=== PATIENT | male | born 1950 | race Caucasian/White ===

== ENCOUNTER 2016-12-04 09:56 | Observation (INO) | payer MEDICARE, MEDICAID ==
[~2016-12-04] VITALS: Ht 172.7 cm; Wt 91.2 kg
[~2016-12-04 09:56] MED LIST: ALBU17AE3 IH; ALPR.5T PO; ALPR1TAB7 PO; AMIT25TA9 PO; AMIT50TA3 PO; AML5T PO; AMLO5TAB2 PO; AMOX-355 PO; ASP81TEC PO; ASPI-983 PO; ASPI-999 PO; AZIT-21 PO; CLCX200C PO; CRS350T PO; CYCL10TA9 PO; DULO60CA58 PO; FRSM40T PO; FURO20TA4 PO; FURO40TA4 PO; KCL20TCR PO; LEVO750T6 PO; LISI-552 PO; LISI10TA PO; LOVA10TA PO; LSNP20T PO; METF-380 PO; MORP100T20 PO; MORP100T37 PO; MORP100T6 PO; MORP100T8; MS15TCR PO; MULT1CAP27 PO; NALO25TA PO; NF-ESOM40C PO; NITR0.4T SL; OMEP20CA6 PO; OXYC30TA PO; OXYCODONE; POLY17PO23 PO; POLY255P PO; POTA10TA36 PO; PRD20T PO; PRILOSEC PO; PSYL1PAC15 PO; SENN-101 PO; SIMV20TA3 PO; TEMA15CA54 PO; TMSL.4C PO; TMZP15C PO; TRZ100T PO; ZLP10T PO; ZOLP10TA5 PO; [UNRECOGNIZED DRUG - CODE] SQ
--- OUTSIDE RECORDS SUMMARY | 2016-12-04 10:01 | XMS REPORT | Continuity of Care Document ---
Author Author [facility] Organization [facility] Address Unknown Phone Unavailable Care Team Providers Care Translation Director Name Role Phone Jonathan Beasley PCP [phone] Source Comments Some departments are not documenting in the electronic medical record. If you do not see the information that you expected, contact Release of Information in the Health Information Management department at [phone] for further assistance in locating additional records.[facility] Active Allergies and Adverse Reactions Allergen Noted Date Severity Reactions Comments Codeine 08/07/2003 High Allergy recorded in SMS: Codeine~Reactions: SWELLING~HIVES Streptokinase 08/07/2003 High Allergy recorded in SMS: Streptokinase~Reactions: SWELLING Current Medications Prescription Sig. Disp. Refills Start End Date Status Date temazepam (RESTORIL) 30 Take 30 mg by mouth at Active mg capsule bedtime as needed. traZODone (DESYREL) 100 Take 100 mg by mouth at Active mg tablet bedtime daily. aspirin EC 81 mg tablet Take 81 mg by mouth Active daily. metFORMIN-XR(+) Take 1,000 mg by mouth Active (GLUCOPHAGE XR) 500 mg twice daily. tablet amitriptyline (ELAVIL) 50 Take 50 mg by mouth at Active mg tablet bedtime daily. carisoprodol(+) (SOMA) Take 350 mg by mouth Active 350 mg tablet every 8 hours as needed. ALPRAZolam (XANAX) 0.5 mg Take 0.5-1 mg by mouth Active tablet three times daily as needed. PRN for severe anxiety Insulin Asp Prt-Insulin Inject 5 Units into Active Aspart (NOVOLOG MIX 70-30 area(s) as directed at FLEXPEN) 100 unit/mL bedtime daily. 5 units (70-30) InPn @@1700. Hold Sliding Scale for now. furosemide (LASIX) 20 mg Take 20 mg by mouth daily Active tablet as needed. As needed for Edema. morphine SR (MS CONTIN; Take 200 mg by mouth Active ORAMORPH SR) 100 mg every 12 hours tablet morphine SR (MS CONTIN; Take 100 mg by mouth Active ORAMORPH SR) 100 mg daily with lunch tablet morphine IR (MSIR) 15 mg Take 3-4 Tabs by mouth 100 Tab 0 11/23/19 Active tablet every 3 hours as needed 13 for Pain Earliest Fill Date: 11/23/12 enoxaparin (LOVENOX) 40 Inject 0.4 mL into 7 Syringe 0 11/23/19 Active mg injection syringe area(s) as directed 13 daily. Active Problems Problem Noted Date [place] (myocardial infarction) (HCC) 04/04/2014 Pacemaker 04/04/2014 Asthma 04/04/2014 S/P bilateral hip replacements 04/04/2014 S/P hardware removal 04/04/2014 S/P cervical spinal fusion 04/04/2014 Hip pain 11/25/2012 Pain in joint, pelvic region and thigh 04/05/2008 Pain in joint, lower leg 04/05/2008 Most Recent Encounters Date Type Specialty Providers Description 10/01/2016 Orders Only Orthopedic Surgery Traci Mota MD Left knee pain, unspecified chronicity (Primary Dx); Pain of left hip joint Social History Tobacco Use Types Packs/Day Years Used Date Current Every Day Smoker Cigarettes 0.5 35 Alcohol Use Drinks/Week oz/Week Comments Yes 1 Cans of 0.6 beer Last Filed Vital Signs Vital Sign Reading Time Taken Blood Pressure 147/78 11/23/2012 8:30 AM NURSING HOME DIRECTOR Pulse 63 11/23/2012 8:30 AM NURSING HOME DIRECTOR Temperature 36.8 C (98.3 F) 11/23/2012 8:30 AM NURSING HOME DIRECTOR Respiratory Rate - - Height 1.727 m (5' 8") 11/19/2012 9:57 AM NURSING HOME DIRECTOR Weight 86.183 kg (190 lb) 11/19/2012 9:57 AM NURSING HOME DIRECTOR Body Mass Index 28.9 11/19/2012 9:57 AM NURSING HOME DIRECTOR Oxygen Saturation 97% 11/23/2012 8:30 AM NURSING HOME DIRECTOR Plan of Care Date Type Specialty Providers Description 01/28/2017 Appointment Orthopedic Surgery Traci Mota MD [address] [facility] [address] [place] [address] [phone] (Fax) Health Maintenance Due Date Last Done Comments Hepatitis C Screening 1950 Physical (Comprehensive) 1959 Exam Pertussis Vaccine 1963 Tetanus Vaccine 1969 Colorectal Cancer 2002 Screening Shingles Vaccine 2012 Influenza Vaccine 06/26/2016 Results from Last 3 Months Not on file
[2016-12-04] MEDS ORDERED: NS IV 1000 ML 1,000 ML IV ONE (10:03)
--- NOTE | 2016-12-04 10:18 | ED Fall/Injury ---
General Chief Complaint: Trauma-Non Activation Stated Complaint: CHEST PAIN Nursing Triage Note: PT ARRIVED PER EMS, PT CO OF FALLING WHILE TRANSFERING FROM CHAIR TO BED LAST PM, HAS ABRAISION ON L SIDE FOREHEAD, CO OF L FEMUR PAIN, DENIES NECK PAIN, CO OF DIFFICULTY IN URINATION AT TIMES Source: patient Exam Limitations: no limitations History of Present Illness Time seen by provider: 10:02 Initial Comments Here with report of fall last night while trying to transfer from his bed to his power chair. He did hit his head on the left side. Also complains of left mid thigh pain. He does take quite a bit of morphine for chronic pain conditions. Called EMS today due to pain. He was able to stand and transfer to the cot. Does report that he's had decreased urine output over the last few days. Denies nausea or vomiting. Denies vision problems. Complains of mild headache and mild neck pain. Location Injury Occurred: HOME Occurred: yesterday Severity: mild Injuries/Pain Location: head, lower extremity Context: slipped Loss of Consciousness: no loss of consciousness Associated Symptoms (Fall): No Abdominal Pain, No Chest Pain, No Confusion, Dizziness HeadacheNo Nausea/Vomiting, Neck Pain Slurred Speech Allergies and Home Medications Allergies Coded Allergies: codeine (Verified Allergy, Mild, HIVES...TAKES OXYCODONE & MS CONTIN AT HOME, 07/29/07) streptokinase (Verified Allergy, Unknown, 07/29/07) Home Medications Alprazolam 1 Mg Tablet 1 MG PO TID PRN PRN ANXIETY (Reported) Morphine Sulfate 100 Mg Tablet.er 200 MG PO BID (Reported) Morphine Sulfate 100 Mg Tablet.er 100 MG PO NOON (Reported) Zolpidem Tartrate 10 Mg Tablet 10 MG PO HS PRN PRN SLEEP (Reported) Constitutional: see HPINo chills, dizzinessNo fever Eyes: No Symptoms Reported Ears, Nose, Mouth, Throat: no symptoms reported Respiratory: no symptoms reported Cardiovascular: no symptoms reported Gastrointestinal: no symptoms reported Genitourinary: see HPI decreased output Musculoskeletal: see HPI joint swelling muscle pain neck pain Skin: see HPI lesions (abrasion to the left forehead) Psychiatric/Neurological: See HPI All Other Systems Reviewed Negative Unless Noted: Yes Past Uynftro-Vfjxmh-Ubixbk Hx Patient Social History Alcohol Use: Rarely Uses Recreational Drug Use: Yes Type Used: Cigarettes Former Smoker/When Quit: Recent Hopitalizations: No Immunizations Up To Date Tetanus Booster (TDap): More than 5yrs PED Vaccines UTD: No Date of Pneumonia Vaccine: Oct 29, 2012 Date of Influenza Vaccine: Jul 26, 2016 Seasonal Allergies Seasonal Allergies: No Surgeries HX Surgeries: Yes Surgeries: Abdominal, Appendectomy, Cardiac, Defibrillator, Joint Replacement, Orthopedic, Pacemaker Respiratory Hx Respiratory Disorders: Yes Respiratory Disorders: COPD Cardiovascular Hx Cardiac Disorders: Yes (PACEMAKER, CARDIAC ARREST, SELF - REPORTED MT X 8) Cardiac Disorders: Chronic Edema/Swelling, Coronary Artery Disease, Heart Attack, Hypertension, Irregular Heartbeat Neurological Hx Neurological Disorders: No Reproductive System Hx Reproductive Disorders: No Sexually Transmitted Disease: No Genitourinary Hx Genitourinary Disorders: Yes (patient performs self straight catheters) Genitourinary Disorders: Neurogenic Bladder Gastrointestinal Hx Gastrointestinal Disorders: Yes Gastrointestinal Disorders: Abdominal Hernia Musculoskeletal Hx Musculoskeletal Disorders: Yes (no hip joints related to sx) Musculoskeletal Disorders: Arthritis, Chronic Back Pain, Fractures Endocrine Hx Endocrine Disorders: Yes (OBESITY) Endocrine Disorders: Diabetes, Insulin dep HEENT HX ENT Disorders: Yes HEENT Disorders: Dysphagia Loss of Vision: Denies Hearing Impairment: Hard of Hearing Cancer Hx Cancer: No Psychosocial Hx Psychiatric Problems: Yes (ALCOHOL/POLYSUBSTANCE ABUSE/OVERDOSES-INTUBATED 2012, INCARCERATIONS) Behavioral Health Disorders: Suicide Attempts, Depression Integumentary HX Skin/Integumentary Disorder: No Blood Transfusions Hx Blood Disorders: No Reviewed Nursing Assessment Reviewed/Agree w Nursing PMH: Yes Family Medical History Significant Family History: No Pertinent Family Hx Physical Exam Vital Signs Vital Sign - Last 12Hours 12/04/16 10:00 Temp 97.5 Pulse 88 Resp 18 B/P 99/60 Pulse Ox 98 O2 Delivery Room Air Capillary Refill : General Appearance: WD/WN no apparent distress HEENT: PERRL/EOMI (pinpoint bilaterally but equal) pharynx normal Neck: full range of motion supple Cardiovascular: regular rate, rhythm no murmur Respiratory: lungs clear normal breath sounds Gastrointestinal: non tender soft Back: normal inspection no CVA tenderness no vertebral tenderness Extremities: non-tender pedal edema (bilateral lower) Neurologic/Psychiatric: alert oriented x 3 Skin: normal color warm/dry Bridgman Coma Score Best Eye Response: (4) Open Spontaneously Best Verbal Response: (5) Oriented Best Motor Response: (6) Obeys Commands Progress/Results/Core Measures Results/Orders Lab Results Laboratory Tests Test 12/04/16 11:15 12/04/16 11:29 Range/Units Urine Bacteria FEW H /HPF Urine Bilirubin NEGATIVE NEGATIVE Urine Casts NONE /LPF Urine Clarity CLEAR Urine Color YELLOW Urine Crystals NONE /LPF Urine Culture Indicated YES Urine Glucose (UA) NEGATIVE NEGATIVE Urine Ketones NEGATIVE NEGATIVE Urine Leukocyte Esterase 3+ H NEGATIVE Urine Mucus NEGATIVE /LPF Urine Nitrite NEGATIVE NEGATIVE Urine Protein NEGATIVE NEGATIVE Urine RBC NONE /HPF Urine RBC (Auto) NEGATIVE NEGATIVE Urine Specific [place] 1.015 L 1.016-1.022 Urine Squamous Epithelial Cells 10-25 H /HPF Urine Urobilinogen NORMAL NORMAL MG/DL Urine WBC 50-100 H /HPF Urine pH 6 5-9 Alanine Aminotransferase (ALT/SGPT) 14 0-55 U/L Albumin 3.6 3.2-4.5 G/DL Alkaline Phosphatase 99 40-136 U/L Anion Gap 10 5-14 MMOL/L Aspartate Amino Transf (AST/SGOT) 20 5-34 U/L BUN/Creatinine Ratio 18 Basophils # (Auto) 0.1 0.0-0.1 10^3/uL Basophils (%) (Auto) 1 0-10 % Blood Urea Nitrogen 16 7-18 MG/DL Calcium Level 8.7 8.5-10.1 MG/DL Carbon Dioxide Level 21 21-32 MMOL/L Chloride Level 108 H 98-107 MMOL/L Creatinine 0.88 0.60-1.30 MG/DL Eosinophils # (Auto) 0.2 0.0-0.3 10^3/uL Eosinophils (%) (Auto) 3 0-10 % Estimat Glomerular Filtration Rate > 60 Glucose Level 91 70-105 MG/DL Hematocrit 37 L 40-54 % Hemoglobin 12.7 L 13.3-17.7 G/DL Lymphocytes # (Auto) 2.3 1.0-4.0 X 10^3 Lymphocytes (%) (Auto) 28 12-44 % Mean Corpuscular Hemoglobin 29 25-34 PG Mean Corpuscular Hemoglobin Concent 34 32-36 G/DL Mean Corpuscular Volume 86 80-99 FL Mean Platelet Volume 11.2 H 7.4-10.4 FL Monocytes # (Auto) 1.0 0.0-1.0 X 10^3 Monocytes (%) (Auto) 11 0-12 % Neutrophils # (Auto) 4.9 1.8-7.8 X 10^3 Neutrophils (%) (Auto) 57 42-75 % Platelet Count 222 130-400 10^3/uL Potassium Level 3.7 3.6-5.0 MMOL/L Red Blood Count 4.33 L 4.35-5.85 10^6/uL Red Cell Distribution Width 13.8 10.0-14.5 % Sodium Level 139 135-145 MMOL/L Total Bilirubin 0.5 0.1-1.0 MG/DL Total Protein 6.0 L 6.4-8.2 G/DL White Blood Count 8.5 4.3-11.0 10^3/uL My Orders Orders-CARROLL ORTIZ MD Chest 1 View, Ap/Pa Only (12/04/16 10:03) Femur, Left, 2 Views (12/04/16 10:03) Pelvis (12/04/16 10:03) Ct Head/Cervical Spine Wo (12/04/16 10:03) Cbc With Automated Diff (12/04/16 10:03) Comprehensive Metabolic Panel (12/04/16 10:03) Ua Culture If Indicated (12/04/16 10:03) Saline Lock/Iv-Start (12/04/16 10:03) Ns Iv 1000 Ml (Sodium Chloride 0.9%) (12/04/16 10:03) Urine Culture (12/04/16 11:15) Ceftriaxone Injection (Rocephin Injectio (12/04/16 12:30) Blood Culture (12/04/16 12:31) Lactic Acid Analyzer (12/04/16 12:31) Medications Given in ED Current Medications Medications Dose Ordered Sig/Carl Route Start Time Stop Time Status Last Admin Dose Admin Sodium Chloride 1,000 ml @ 0 mls/hr Q0M ONCE IV 12/04/16 10:03 12/04/16 10:05 DC 12/04/16 10:28 1,000 MLS/HR Vital Signs/I&O Vital Sign - Last 12Hours 12/04/16 10:00 Temp 97.5 Pulse 88 Resp 18 B/P 99/60 Pulse Ox 98 O2 Delivery Room Air Progress Note : Progress Note Seen and evaluated. IV, labs, UA, CT head and neck, chest x-ray and left femur x-ray ordered. Monitor patient. Patient has findings of urinary tract infection. He remains very groggy which I believe is related to likely Xanax overdose. I did discuss the case with Dr. Sanz. She accepts patient for admission, observation status. Blood culture and lactic acid ordered due to UTI although low likelihood of severe sepsis given current evaluation. Rocephin 1 g IV ordered for after. Patient agrees to admission. Diagnostic Imaging Diagonstic Imaging: CT Plain Films/CT/US/NM/MRI: c-spine, head Comments VIA [facility]. [place], [place] NAME: NI ESPINOZA [facility] REC#: [id number] PT STATUS: REG ER : 1950 PHYSICIAN: CARROLL ORTIZ MD ADMIT DATE: 12/04/16/ER Draft Date of Exam:12/04/16 CT HEAD/CERVICAL SPINE WO PROCEDURE: CT head and CT cervical spine without contrast. TECHNIQUE: Multiple contiguous axial images were obtained through the brain and cervical spine without the use of intravenous contrast. Sagittal and coronal reformations through the cervical spine were then performed. INDICATION: Fall. FINDINGS: CT head: There is no intracranial hemorrhage, edema or mass effect. The brain parenchyma and márquez-white matter differentiation is preserved. No hydrocephalus. No extra-axial fluid collection is seen. The calvarium and paranasal sinuses appear grossly unremarkable. CT cervical spine: There is osseous fusion between the vertebral bodies C5 and C6 and the facet joints at this level bilaterally. There is prominent ossification in the posterior epidural space at the C4-C5 level measuring 0.9 cm craniocaudally and 0.6 cm in AP dimension eccentric to the right side. There is slight posterior translation of the fused C5-C6 vertebrae over C7. When compared to the previous study of 12/29/2015, no change is appreciated. The alignment of the lateral masses of C1 and C2 and atlanto-occipital joint is satisfactory. No widening of the predental space. Degenerative changes about the atlantodental joint are noted. There is moderate disc height loss at C4-C5 and at C6-C7. There are posterior osteophytes at multiple levels. The vertebral body heights are preserved. Prominent multilevel facet arthropathy is seen. There is bilateral significant foraminal stenosis at multiple levels. No fracture is seen. IMPRESSION: CT head: Unremarkable exam. CT cervical spine: Fusion of vertebral bodies and facet joints at the C5-C6 level with slight posterior translation of C5-C6 over C7. Multilevel neuroforaminal narrowing. No fracture is seen. Dictated on workstation # [id number] Dict: 12/04/16 1027 Trans: 12/04/16 1102 [id number] Interpreted by: KASEY CHA MD Electronically signed by: Diagonstic Imaging: Xray Plain Films/CT/US/NM/MRI: chest Comments NAME: NI ESPINOZA MED REC#: [id number] PT STATUS: REG ER : 1950 PHYSICIAN: CARROLL ORTIZ MD ADMIT DATE: 12/04/16/ER Signed Date of Exam: 12/04/16 CHEST 1 VIEW, AP/PA ONLY INDICATION: Fall, pain Study compared to 10/19/2016 FINDINGS: Pacemaker device unchanged. Upper limits heart size stable. Hilar, mediastinal and cardiac contours unchanged when differing technique taken into account. There is some prominence of the perihilar interstitial markings as well as some central vascular congestion. No effusion or pneumothorax. IMPRESSION: Some perihilar congestive changes noted. No chest wall fracture deformity or pneumothorax. No pleural fluid. Dictated by: Dictated on workstation # [id number] Dict: 12/04/16 1042 Trans: 12/04/16 1124 [facility] [id number] Interpreted by: APRIL LANDIS Electronically signed by:APRIL LANDIS 12/04/16 1126 Diagonstic Imaging: Xray Plain Films/CT/US/NM/MRI: pelvis Comments NAME: NI ESPINOZA MED REC#: [id number] PT STATUS: REG ER : 1950 PHYSICIAN: CARROLL ORTIZ MD ADMIT DATE: 12/04/16/ER Signed Date of Exam: 12/04/16 PELVIS INDICATION: Fall. Pain. Study compared 12/05/2014. 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 The residual shaft directed towards the lateral margin of the dysplastic and degenerated and scalloped acetabulum. There are chronic soft tissue ossifications lateral to the right innominate bone stable. There are chronic deformities, fragmentation, sclerosis, and lucencies to the postoperative proximal left femur with no fracture of the cerclage wires. The acetabular component remains unchanged with mild medial protrusio. Obturator rings intact. Symphysis and SI joints intact. The findings are unchanged from the prior. IMPRESSION: Unchanged extensive chronic postoperative traumatic and degenerative findings identical in appearance to a prior. Dictated by: Dictated on workstation # [id number] Dict: 12/04/16 1040 Trans: 12/04/16 1124 [place] [id number] Interpreted by: APRIL LANDIS Electronically signed by:APRIL LANDIS 12/04/16 1126 Diagonstic Imaging: Xray Plain Films/CT/US/NM/MRI: leg [facility] [place] [place] NAME: NI ESPINOZA [facility] REC#: [id number] PT STATUS: REG ER : 1950 PHYSICIAN: CARROLL ORTIZ MD ADMIT DATE: 12/04/16/ER Draft Date of Exam:12/04/16 FEMUR, LEFT, 2 VIEWS Multiple views of the left femur. INDICATION: Fall. FINDINGS: There is chronic deformity and absent femoral head and neck and absent femoral prosthesis seen with cortical thickening and fragmentation in the remaining portions of the femur and remaining hardware including acetabular cup and some cerclage wire around the femoral shaft. Sclerotic chronic-appearing changes in the mid and distal aspect of the femur and proximal tibia compatible with bone infarcts seen. No acute fracture is identified. IMPRESSION: No acute process. Dictated on workstation # [id number] Dict: 12/04/16 1042 Trans: 12/04/16 1052 [place] [id number] Interpreted by: KASEY CHA MD Electronically signed by: Departure Communication Time/Spoke to Admitting Phy: 12:33 Impression Impression: Primary Impression: Urinary tract infection Qualified Code: N30.00 - Acute cystitis without hematuria Additional Impression: Benzodiazepine overdose Qualified Code: T42.4X1A - Poisoning by benzodiazepines, accidental ( unintentional), initial encounter Disposition: ADMITTED INPATIENT Condition: Stable Decision to Admit Reason: Admit from ER (General) Decision to Admit/Date: Dec 04, 2016 Time/Decision to Admit Time: 12:33 Departure-Patient Inst. Referrals: NABILA LO MD (PCP/Family) Primary Care Physician CARROLL ORTIZ MD Dec 04, 2016 10:18
[2016-12-04] MEDS ORDERED: MORP100T20 PO ×2 (10:24)
--- NOTE | 2016-12-04 10:47 | Diagnostic Imaging Report ---
INDICATION: Fall, pain Study compared to 10/19/2016 FINDINGS: Pacemaker device unchanged. Upper limits heart size stable. Hilar, mediastinal and cardiac contours unchanged when differing technique taken into account. There is some prominence of the perihilar interstitial markings as well as some central vascular congestion. No effusion or pneumothorax. IMPRESSION: Some perihilar congestive changes noted. No chest wall fracture deformity or pneumothorax. No pleural fluid. Dictated by: Dictated on workstation # [id number]
--- NOTE | 2016-12-04 10:50 | Diagnostic Imaging Report ---
INDICATION: Fall. Pain. Study compared 12/05/2014. 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 The residual shaft directed towards the lateral margin of the dysplastic and degenerated and scalloped acetabulum. There are chronic soft tissue ossifications lateral to the right innominate bone stable. There are chronic deformities, fragmentation, sclerosis, and lucencies to the postoperative proximal left femur with no fracture of the cerclage wires. The acetabular component remains unchanged with mild medial protrusio. Obturator rings intact. Symphysis and SI joints intact. The findings are unchanged from the prior. IMPRESSION: Unchanged extensive chronic postoperative traumatic and degenerative findings identical in appearance to a prior. Dictated by: Dictated on workstation # [id number]
--- NOTE | 2016-12-04 10:52 | Diagnostic Imaging Report ---
Multiple views of the left femur. INDICATION: Fall. FINDINGS: There is chronic deformity and absent femoral head and neck and absent femoral prosthesis seen with cortical thickening and fragmentation in the remaining portions of the femur and remaining hardware including acetabular cup and some cerclage wire around the femoral shaft. Sclerotic chronic-appearing changes in the mid and distal aspect of the femur and proximal tibia compatible with bone infarcts seen. No acute fracture is identified. IMPRESSION: No acute process. Dictated by: Dictated on workstation # [id number]
--- NOTE | 2016-12-04 11:04 | Diagnostic Imaging Report ---
PROCEDURE: CT head and CT cervical spine without contrast. TECHNIQUE: Multiple contiguous axial images were obtained through the brain and cervical spine without the use of intravenous contrast. Sagittal and coronal reformations through the cervical spine were then performed. INDICATION: Fall. FINDINGS: CT head: There is no intracranial hemorrhage, edema or mass effect. The brain parenchyma and márquez-white matter differentiation is preserved. No hydrocephalus. No extra-axial fluid collection is seen. The calvarium and paranasal sinuses appear grossly unremarkable. CT cervical spine: There is osseous fusion between the vertebral bodies C5 and C6 and the facet joints at this level bilaterally. There is prominent ossification in the posterior epidural space at the C4-C5 level measuring 0.9 cm craniocaudally and 0.6 cm in AP dimension eccentric to the right side. There is slight posterior translation of the fused C5-C6 vertebrae over C7. When compared to the previous study of 12/29/2015, no change is appreciated. The alignment of the lateral masses of C1 and C2 and atlanto-occipital joint is satisfactory. No widening of the predental space. Degenerative changes about the atlantodental joint are noted. There is moderate disc height loss at C4-C5 and at C6-C7. There are posterior osteophytes at multiple levels. The vertebral body heights are preserved. Prominent multilevel facet arthropathy is seen. There is bilateral significant foraminal stenosis at multiple levels. No fracture is seen. IMPRESSION: CT head: Unremarkable exam. CT cervical spine: Fusion of vertebral bodies and facet joints at the C5-C6 level with slight posterior translation of C5-C6 over C7. Multilevel neuroforaminal narrowing. No fracture is seen. Dictated by: Dictated on workstation # [id number]
[2016-12-04 11:29] LABS: BILIRUBIN,URINE NEGATIVE (NEGATIVE); KETONES,URINE NEGATIVE (NEGATIVE); LEUKOCYTE ESTERASE ,URINE 3+ (NEGATIVE); NITRITE,URINE NEGATIVE (NEGATIVE); PH,URINE 6 (5-9); PROTEIN,URINE NEGATIVE (NEGATIVE); UROBILINOGEN,URINE NORMAL (NORMAL)
[2016-12-04 11:38] LABS: BASOPHILS # (AUTO) 0.1 10^3/uL (0.0-0.1); BASOPHILS % (AUTO) 1 % (0-10); EOSINOPHILS # (AUTO) 0.2 10^3/uL (0.0-0.3); EOSINOPHILS % (AUTO) 3 % (0-10); LYMPHOCYTES # (AUTO) 2.3 X 10^3 (1.0-4.0); LYMPHOCYTES % (AUTO) 28 % (12-44); MEAN CORPUSCULAR HEMOGLOBIN 29 PG (25-34); MEAN CORPUSCULAR HGB CONC 34 G/DL (32-36); MEAN CORPUSCULAR VOLUME 86 FL (80-99); MEAN PLATELET VOLUME 11.2 FL (7.4-10.4); MONOCYTES % (AUTO) 11 % (0-12); NEUTROPHILS # (AUTO) 4.9 X 10^3 (1.8-7.8); NEUTROPHILS % (AUTO) 57 % (42-75); PLATELET COUNT 222 10^3/uL (130-400); RED BLOOD COUNT 4.33 10^6/uL (4.35-5.85); RED CELL DISTRIBUTION WIDTH 13.8 % (10.0-14.5); WHITE BLOOD COUNT 8.5 10^3/uL (4.3-11.0)
[2016-12-04 11:53] LABS: WBC,URINE 50-100 /HPF
[2016-12-04 12:01] LABS: ALANINE AMINOTRANSFERASE 14 U/L (0-55); ALBUMIN 3.6 G/DL (3.2-4.5); ANION GAP 10 MMOL/L (5-14); ASPARTATE AMINO TRANSFERASE 20 U/L (5-34); BILIRUBIN,TOTAL 0.5 MG/DL (0.1-1.0); BLOOD UREA NITROGEN 16 MG/DL (7-18); BUN/CREATININE RATIO 18; CALCIUM 8.7 MG/DL (8.5-10.1); CARBON DIOXIDE 21 MMOL/L (21-32); CHLORIDE 108 MMOL/L (98-107); CREATININE SERUM 0.88 MG/DL (0.60-1.30); GFR ESTIMATED > 60; GLUCOSE 91 MG/DL (70-105); POTASSIUM 3.7 MMOL/L (3.6-5.0); SODIUM 139 MMOL/L (135-145)
[2016-12-04] MEDS ORDERED: cefTRIAXone INJECTION 1,000 MG in NS (IVPB) 50 ML IV ONE (12:30)
[2016-12-04 14:10] VITALS: BP 140/77
[2016-12-04] MEDS ORDERED: CATHETER FLUSH 10 ML SYR IV PRN (14:45)
[2016-12-04] MEDS ORDERED: NS IV 1000 ML 1,000 ML IV SCH (14:45)
[2016-12-04] MEDS ORDERED: POLY17PO6 PO (14:58)
[2016-12-04] MEDS ORDERED: NALO25TA PO (14:58)
[2016-12-04] MEDS ORDERED: PATIENT MAY USE OWN MEDS, ALL MC SCH (17:00)
[2016-12-04] MEDS ORDERED: HYDROcodone/APAP 5 MG/325 MG (LORTAB) TAB PO PRN (17:00)
[2016-12-04] MEDS ORDERED: fentaNYL INJECTION 100 MCG/2 ML AMP IVP PRN (17:00)
[2016-12-04] MEDS ORDERED: ALPRAZolam 0.25 MG (XANAX) TAB PO PRN (17:00)
[2016-12-04] MEDS ORDERED: ACETAMINOPHEN 500 MG TAB (TYLENOL) PO PRN (17:00)
[2016-12-04] MEDS ORDERED: RT-ALBUTEROL/IPRATROPIUM 3 ML (DUONEB) VIAL INH PRN (19:00)
[2016-12-04 20:00] VITALS: BP 120/67
[2016-12-04] MEDS ORDERED: RT-ALBUTEROL/IPRATROPIUM 3 ML (DUONEB) VIAL INH SCH (21:00)
--- NOTE | 2016-12-04 21:19 | Short Stay Summary-Hospitalist ---
HPI History of Present Illness: HPI/Chief Complaint CC: Oversedation w/UTI HPI: This is a 66-year-old white male patient of Dr. Beasley'chelsie with a past medical history of mental illness the presented to the emergency room after paramedics brought him in due to altered mental status. He had taken too much of his Xanax at 1 mg and had become sedated and UTI was diagnosed in the meantime. He was unable to provide any history at all when I assessed him and he left AMA been evening of admission. Source: patient Exam Limitations: clinical condition Date Seen 12/04/16 Attending Physician Kirsten Sanz Douglas K MD Referring Physician Date of Admission Dec 04, 2016 at 13:13 Home Medications & Allergies Home Medications Reviewed patient Home Medication Reconciliation Form Allergies Coded Allergies: codeine (Verified Allergy, Mild, HIVES...TAKES OXYCODONE & MS CONTIN AT HOME, 07/29/07) streptokinase (Verified Allergy, Unknown, 07/29/07) Past Qfqlhby-Okpqel-Vrrngo Hx Patient Social History Marrital Status: single Employed/Student: unemployed Alcohol Use: Rarely Uses Recreational Drug Use: Yes Smoking Status: Former Smoker Former smoker/When Quit: Type Used: Cigarettes Physical Abuse Screen: No Sexual Abuse: No Recent Foreign Travel: No Contact w/other who traveled: No Recent Hopitalizations: No Recent Infectious Disease Expo: No Immunizations Up To Date Tetanus Booster (TDap): More than 5yrs Date of Pneumonia Vaccine: Nov 08, 2012 Date of Influenza Vaccine: Jul 26, 2016 Seasonal Allergies Seasonal Allergies: No Surgeries HX Surgeries: Yes Surgeries: Abdominal, Appendectomy, Cardiac, Defibrillator, Joint Replacement, Orthopedic, Pacemaker Respiratory Hx Respiratory Disorders: Yes Respiratory Disorders: COPD Cardiovascular Hx Cardiovascular Disorders: Yes (PACEMAKER, CARDIAC ARREST, SELF - REPORTED ME X 8) Cardiac Disorders: Chronic Edema/Swelling, Coronary Artery Disease, Heart Attack, Hypertension, Irregular Heartbeat Neurological Hx Neurological Disorders: No Reproductive System Hx Reproductive Disorders: No Sexually Transmitted Disease: No Genitourinary Hx Genitourinary Disorders: Yes (patient performs self straight catheters) Genitourinary Disorders: Neurogenic Bladder Gastrointestinal Hx Gastrointestinal Disorders: Yes Gastrointestinal Disorders: Abdominal Hernia Musculoskeletal Hx Musculoskeletal Disorders: Yes (no hip joints related to sx) Musculoskeletal Disorders: Arthritis, Chronic Back Pain, Fractures Endocrine Hx Endocrine Disorders: Yes (OBESITY) Endocrine Disorders: Diabetes, Insulin dep HEENT HX ENT Disorders: Yes HEENT Disorders: Dysphagia Loss of Vision: Denies Hearing Impairment: Hard of Hearing Cancer Hx Cancer: No Psychosocial Hx Psychiatric Problems: Yes (ALCOHOL/POLYSUBSTANCE ABUSE/OVERDOSES-INTUBATED 2012, INCARCERATIONS) Behavioral Health Disorders: Suicide Attempts, Depression Integumentary HX Skin/Integumentary Disorder: No Blood Transfusions Hx Blood Disorders: No Reviewed Nursing Assessment Reviewed/Agree w Nursing PMH: Yes Family Medical History Significant Family History: No Pertinent Family Hx Family Hx: Review of Systems ROS-Unable to Obtain: sedated Constitutional: see HPI Physical Exam Physical Exam Vital Signs Vital Sign - Last 12Hours 12/04/16 10:00 Temp 97.5 Pulse 88 Resp 18 B/P 99/60 Pulse Ox 98 O2 Delivery Room Air Capillary Refill : Less Than 3 SecondsLess Than 3 Seconds General Appearance: No Apparent Distress WD/WN Chronically ill Eyes: Bilateral Eye Normal Inspection, Bilateral Eye PERRL HEENT: PERRL/EOMI Normal ENT Inspection Pharynx Normal Neck: Full Range of Motion Normal Inspection Non Tender Supple Carotid Bruit Respiratory: Chest Non Tender Lungs Clear Normal Breath Sounds No Accessory Muscle Use No Respiratory Distress Cardiovascular: Regular Rate, Rhythm No Edema No Gallop No JVD No Murmur Normal Peripheral Pulses Gastrointestinal: Normal Bowel Sounds No Organomegaly No Pulsatile Mass Non Tender Soft Back: Normal Inspection No CVA Tenderness No Vertebral Tenderness Extremity: Normal Capillary Refill Normal Inspection Normal Range of Motion Non Tender No Calf Tenderness No Pedal Edema Neurologic/Psychiatric: Alert Disoriented x3 Other (sedated) Skin: Normal Color Warm/Dry Lymphatic: No Adenopathy Results Results/Procedures Lab Laboratory Tests 12/04/16 11:29 Short Stay Diagnosis Discharge Diagnosis-Short Stay Admission Diagnosis Assessment: Oversedation due to Xanax nonpurposeful overdose Long-standing mental illness Acute UTI Final Discharge Diagnosis Assessment: Oversedation due to Xanax nonpurposeful overdose Long-standing mental illness Acute UTI Conclusion Plan Patient left AMA unable to convince him to stay otherwise Clinical Quality Measures DVT/VTE Risk/Contraindication: Risk Factor Score Per Nursin RFS Level Per Nursing on Admit: 4+=Very High KIRSTEN SANZ DO Dec 04, 2016 21:19
[2016-12-05] MEDS ORDERED: NALOXEGOL OXALATE 25 MG PO SCH (07:00)
[2016-12-05] MEDS ORDERED: cefTRIAXone 1 GM/NS 50 ML IVPB IV SCH ×2 (09:00)
[2016-12-05] MEDS ORDERED: POLYETHYLENE GLYCOL 17 GM (MIRALAX) PACK PO SCH (09:00)
== END 2016-12-04 21:35 | disposition left against medical advice (07) ==
LOC: EDUNIT# 09:56 → ER 09:58 → 4TH 13:13 → UNDOADMOB 13:13 → 4TH 14:10 → UNDODISOB 21:35
PROVIDERS: ADMIT Internal Medicine; ATTEND Internal Medicine
DX: T42.4X1A Poisoning by benzodiazepines, accidental (unintentional), initial encounter (principal); R41.82 Altered mental status, unspecified; N39.0 Urinary tract infection, site not specified; J44.9 Chronic obstructive pulmonary disease, unspecified; I25.10 Atherosclerotic heart disease of native coronary artery without angina pectoris; I10 Essential (primary) hypertension; N31.9 Neuromuscular dysfunction of bladder, unspecified; E11.9 Type 2 diabetes mellitus without complications; Z79.4 Long term (current) use of insulin; Z95.0 Presence of cardiac pacemaker
CPT/HCPCS: 36415; 70450; 71010; 72125; 72170; 73552; 80053; 81000; 83605; 85025; 87040; 87077; 87088; 87186; 94640; 94760; 96361; 96374; G0378

== ENCOUNTER 2016-12-31 02:14 | Observation (INO) | payer MEDICARE, MEDICAID ==
[2016-12-31] VITALS (12 sets, daily range): BP systolic 96–128; BP diastolic 54–60
[~2016-12-31] VITALS: Ht 172.7 cm; Wt 91.2 kg
[~2016-12-31 02:14] MED LIST changes: +POLY17PO6 PO
--- OUTSIDE RECORDS SUMMARY | 2016-12-31 02:22 | XMS REPORT | Continuity of Care Document ---
Author Author [facility] Organization [facility] Address Unknown Phone Unavailable Care Team Providers Care Rn Med Surg Name Role Phone Jonathan Beasley PCP [phone] Source Comments Some departments are not documenting in the electronic medical record. If you do not see the information that you expected, contact Release of Information in the Health Information Management department at [phone] for further assistance in locating additional records.[facility] Active Allergies and Adverse Reactions Allergen [...] 13 daily. Active Problems Problem Noted Date PR (myocardial infarction) (HCC) 04/04/2014 Pacemaker 04/04/2014 Asthma 04/04/2014 S/P bilateral hip replacements 04/04/2014 S/P hardware removal 04/04/2014 S/P cervical spinal fusion 04/04/2014 Hip pain 11/25/2012 Pain in joint, pelvic region and thigh 04/05/2008 Pain in joint, lower leg 04/05/2008 Social History Tobacco Use Types Packs/Day Years Used Date Current Every Day Smoker Cigarettes 0.5 35 Alcohol Use Drinks/Week oz/Week Comments Yes 1 Cans of 0.6 beer Last Filed Vital Signs Vital Sign Reading Time Taken Blood Pressure 147/78 11/23/2012 8:30 AM COLORIST Pulse 63 11/23/2012 8:30 AM COLORIST Temperature 36.8 C (98.3 F) 11/23/2012 8:30 AM COLORIST Respiratory Rate - - Height 1.727 m (5' 8") 11/19/2012 9:57 AM COLORIST Weight 86.183 kg (190 lb) 11/19/2012 9:57 AM COLORIST Body Mass Index 28.9 11/19/2012 9:57 AM COLORIST Oxygen Saturation 97% 11/23/2012 8:30 AM COLORIST Plan of Care Date Type Specialty Providers Description 01/28/2017 Appointment Orthopedic Surgery Traci Mota MD [address] [facility] [place] [address] [place] [address] [phone] (Fax) Health Maintenance Due Date Last Done Comments Hepatitis C Screening 1952 Physical (Comprehensive) 1959 Exam Pertussis Vaccine 1963 Tetanus Vaccine 1969 Colorectal Cancer 2002 Screening Shingles Vaccine 2012 Influenza Vaccine 06/26/2016 Results from Last 3 Months Not on file
[2016-12-31] MEDS ORDERED: RT-ALBUTEROL/IPRATROPIUM 3 ML (DUONEB) VIAL INH ONE (02:45)
[2016-12-31] MEDS ORDERED: RT-ALBUTEROL SULF 2.5 MG/3 ML PRE-MIX VIAL INH STA (03:01)
[2016-12-31 03:02] LABS: BASOPHILS # (AUTO) 0.1 10^3/uL (0.0-0.1); BASOPHILS % (AUTO) 1 % (0-10); EOSINOPHILS # (AUTO) 0.3 10^3/uL (0.0-0.3); EOSINOPHILS % (AUTO) 3 % (0-10); LYMPHOCYTES # (AUTO) 2.5 X 10^3 (1.0-4.0); LYMPHOCYTES % (AUTO) 27 % (12-44); MEAN CORPUSCULAR HEMOGLOBIN 30 PG (25-34); MEAN CORPUSCULAR HGB CONC 34 G/DL (32-36); MEAN CORPUSCULAR VOLUME 87 FL (80-99); MEAN PLATELET VOLUME 10.7 FL (7.4-10.4); MONOCYTES # (AUTO) 0.8 X 10^3 (0.0-1.0); MONOCYTES % (AUTO) 9 % (0-12); NEUTROPHILS # (AUTO) 5.3 X 10^3 (1.8-7.8); NEUTROPHILS % (AUTO) 59 % (42-75); PLATELET COUNT 267 10^3/uL (130-400); RED BLOOD COUNT 4.63 10^6/uL (4.35-5.85); RED CELL DISTRIBUTION WIDTH 14.1 % (10.0-14.5)
[2016-12-31 03:09] LABS: PROTHROMBIN TIME PATIENT 13.3 SEC (12.2-14.7)
--- NOTE | 2016-12-31 03:10 | ED Chest Pain ---
General Chief Complaint: Chest Pain Stated Complaint: CP Nursing Triage Note: patient reports chest pain intermittently x 1 week, patient reports pain goes to L arm and also into groin. patient reports running out of fentanyl patches on the 30 of december Nursing Sepsis Screen: No Definite Risk Source: patient Exam Limitations: no limitations History of Present Illness Time seen by provider: 02:19 Initial Comments This 66-year-old patient presents to the emergency room via EMS with complaints of chest pain intermittently for about a week. He reports his pain as 6 out of 10. 3 nitroglycerin at home did not improve his pain. Aspirin was administered by EMS. Patient is a high utilizer of narcotics from his primary care provider. 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 Patient was recently admitted on December 04 and left AGAINST MEDICAL ADVICE. He initially reported being out of a fentanyl patch when giving history to EMS. He later recants that statement and says he is not usually on a fentanyl patch. Review of chart reveals a cardiac catheterization in August 2015 showing mild coronary artery disease with a 40-50 percent stenosis of the left circumflex. He also had a stress test in March 2016 showing no ischemia. His primary care providers Dr. Lo. His steam train driver is Dr. Trevino. He has a secondary complaint of pain in the left groin. He reports recently being diagnosed with kidney stone in Dr. Lo's clinic. It is painful to urinate. Allergies and Home Medications Allergies Coded Allergies: codeine (Verified Allergy, Mild, HIVES...TAKES OXYCODONE & MS CONTIN AT HOME, 07/29/07) streptokinase (Verified Allergy, Unknown, 07/29/07) Home Medications Alprazolam 1 Mg Tablet 1 MG PO TID PRN PRN ANXIETY (Reported) Morphine Sulfate 100 Mg Tablet.er 200 MG PO BID (Reported) TAKES 2 (100 MG) TABLETS TWICE DAILY IN CONJUNCTION WITH 1 TAB @ 1200 Morphine Sulfate 100 Mg Tablet.er 100 MG PO DAILY@1200 (Reported) Oxycodone HCl/Acetaminophen 1 Each Tablet 1 TAB PO QID PRN PRN MODERATE PAIN ( Reported) Polyethylene Glycol 3350 17 Gm Powd.pack 17 GM PO DAILY (Reported) Zolpidem Tartrate 10 Mg Tablet 10 MG PO HS PRN PRN SLEEP (Reported) Review of Systems Constitutional: no symptoms reported EENTM: No Symptoms Reported Respiratory: No Symptoms Reported Cardiovascular: See HPI Gastrointestinal: No Symptoms Reported Genitourinary: See HPI Musculoskeletal: other (absence of functional hip joints) Skin: no symptoms reported Psychiatric/Neurological: No Symptoms Reported Endocrine: No Symptoms Reported Past Bdebxgb-Phdyjw-Hkorvy Hx Patient Social History Alcohol Use: Regular Use Recreational Drug Use: Yes Smoking Status: Current Everyday Smoker Type Used: Cigarettes Former Smoker/When Quit: Recent Foreign Travel: No Contact w/Someone Who Travel: No Recent Infectious Disease Expo: No Recent Hopitalizations: No Immunizations Up To Date Tetanus Booster (TDap): More than 5yrs PED Vaccines UTD: No Date of Pneumonia Vaccine: Nov 08, 2012 Date of Influenza Vaccine: Jul 26, 2016 Seasonal Allergies Seasonal Allergies: No Surgeries HX Surgeries: Yes Surgeries: Abdominal, Appendectomy, Cardiac, Defibrillator, Joint Replacement, Orthopedic, Pacemaker Respiratory Hx Respiratory Disorders: Yes Respiratory Disorders: COPD Cardiovascular Hx Cardiac Disorders: Yes (PACEMAKER, CARDIAC ARREST, SELF - REPORTED [place] X 8) Cardiac Disorders: Chronic Edema/Swelling, Coronary Artery Disease, Heart Attack, Hypertension, Irregular Heartbeat Neurological Hx Neurological Disorders: No Reproductive System Hx Reproductive Disorders: No Sexually Transmitted Disease: No Genitourinary Hx Genitourinary Disorders: Yes (patient performs self straight catheters) Genitourinary Disorders: Neurogenic Bladder Gastrointestinal Hx Gastrointestinal Disorders: Yes Gastrointestinal Disorders: Abdominal Hernia Musculoskeletal Hx Musculoskeletal Disorders: Yes (no hip joints related to sx) Musculoskeletal Disorders: Arthritis, Chronic Back Pain, Fractures Endocrine Hx Endocrine Disorders: Yes (OBESITY) Endocrine Disorders: Diabetes, Insulin dep HEENT HX ENT Disorders: Yes HEENT Disorders: Dysphagia Loss of Vision: Denies Hearing Impairment: Hard of Hearing Cancer Hx Cancer: No Psychosocial Hx Psychiatric Problems: Yes (ALCOHOL/POLYSUBSTANCE ABUSE/OVERDOSES-INTUBATED 2012, INCARCERATIONS) Behavioral Health Disorders: Suicide Attempts, Depression Integumentary HX Skin/Integumentary Disorder: No Blood Transfusions Hx Blood Disorders: No Family Medical History Significant Family History: No Pertinent Family Hx Family Medial History: Physical Exam Vital Signs Vital Sign - Last 12Hours 12/31/16 02:30 Temp 98.2 Pulse 83 Resp 18 B/P 104/55 Pulse Ox 100 O2 Delivery Nasal Cannula O2 Flow Rate 2 Capillary Refill : Less Than 3 Seconds General Appearance: WD/WN Mild Distress HEENT: PERRL/EOMI Normal ENT Inspection Neck: Normal Inspection Respiratory: Lungs Clear Normal Breath Sounds No Accessory Muscle Use No Respiratory Distress Cardiovascular: Regular Rate, Rhythm No Murmur Other (bilateral lower extremity edema) Gastrointestinal: Normal Bowel Sounds Soft Tenderness (left inguinal region) Genital/Rectal: Tenderness (mild tenderness of the left testicle. No masses, swelling, or erythema) Extremity: Pedal Edema Swelling (lower extremity pitting edema equal bilaterally) Neurologic/Psychiatric: Alert Oriented x3 No Motor/Sensory Deficits Normal Mood/Affect horseradish maker II-XII Norm as Tested Skin: Normal Color Warm/Dry Progress/Results/Core Measures Results/Orders Lab Results Laboratory Tests Test 12/31/16 02:53 12/31/16 03:38 Range/Units Activated Partial Thromboplast Time 29 24-35 SEC Alanine Aminotransferase (ALT/SGPT) 11 0-55 U/L Albumin 3.6 3.2-4.5 G/DL Alkaline Phosphatase 100 40-136 U/L Anion Gap 14 5-14 MMOL/L Aspartate Amino Transf (AST/SGOT) 21 5-34 U/L B-Type Natriuretic Peptide 55.3 <100.0 PG/ML BUN/Creatinine Ratio 20 Basophils # (Auto) 0.1 0.0-0.1 10^3/uL Basophils (%) (Auto) 1 0-10 % Blood Urea Nitrogen 19 H 7-18 MG/DL Calcium Level 9.0 8.5-10.1 MG/DL Carbon Dioxide Level 19 L 21-32 MMOL/L Chloride Level 107 98-107 MMOL/L Creatinine 0.94 0.60-1.30 MG/DL D-Dimer 0.88 H 0.00-0.49 UG/ML Eosinophils # (Auto) 0.3 0.0-0.3 10^3/uL Eosinophils (%) (Auto) 3 0-10 % Estimat Glomerular Filtration Rate > 60 Glucose Level 89 70-105 MG/DL Hematocrit 40 40-54 % Hemoglobin 13.7 13.3-17.7 G/DL INR Comment 1.0 0.8-1.4 Lymphocytes # (Auto) 2.5 1.0-4.0 X 10^3 Lymphocytes (%) (Auto) 27 12-44 % Magnesium Level 1.7 L 1.8-2.4 MG/DL Mean Corpuscular Hemoglobin 30 25-34 PG Mean Corpuscular Hemoglobin Concent 34 32-36 G/DL Mean Corpuscular Volume 87 80-99 FL Mean Platelet Volume 10.7 H 7.4-10.4 FL Monocytes # (Auto) 0.8 0.0-1.0 X 10^3 Monocytes (%) (Auto) 9 0-12 % Myoglobin 88.5 10.0-92.0 NG/ML Neutrophils # (Auto) 5.3 1.8-7.8 X 10^3 Neutrophils (%) (Auto) 59 42-75 % Platelet Count 267 130-400 10^3/uL Potassium Level 3.6 3.6-5.0 MMOL/L Prothrombin Time 13.3 12.2-14.7 SEC Red Blood Count 4.63 4.35-5.85 10^6/uL Red Cell Distribution Width 14.1 10.0-14.5 % Serum Alcohol 24 H <10 MG/DL Sodium Level 140 135-145 MMOL/L Total Bilirubin 0.5 0.1-1.0 MG/DL Total Protein 6.6 6.4-8.2 G/DL Troponin I < 0.30 <0.30 NG/ML White Blood Count 9.0 4.3-11.0 10^3/uL Urine Bacteria TRACE /HPF Urine Bilirubin NEGATIVE NEGATIVE Urine Casts PRESENT /LPF Urine Clarity SLIGHTLY CLOUDY Urine Color YELLOW Urine Crystals NONE /LPF Urine Culture Indicated NO Urine Glucose (UA) NEGATIVE NEGATIVE Urine Hyaline Casts 0-2 H /LPF Urine Ketones NEGATIVE NEGATIVE Urine Leukocyte Esterase 3+ H NEGATIVE Urine Mucus NEGATIVE /LPF Urine Nitrite NEGATIVE NEGATIVE Urine Protein NEGATIVE NEGATIVE Urine RBC 25-50 H /HPF Urine RBC (Auto) 5+ H NEGATIVE Urine Specific [place] 1.015 L 1.016-1.022 Urine Squamous Epithelial Cells 10-25 H /HPF Urine Urobilinogen NORMAL NORMAL MG/DL Urine WBC 0-2 /HPF Urine pH 5 5-9 My Orders Orders-LUMA WADE MD Cbc With Automated Diff (12/31/16 02:38) Magnesium (12/31/16 02:38) Chest 1 View, Ap/Pa Only (12/31/16 02:38) Ekg Tracing (12/31/16 02:38) Cardiac Profile 1 (12/31/16 02:38) Comprehensive Metabolic Panel (12/31/16 02:38) Myoglobin Serum (12/31/16 02:38) Protime With Inr (12/31/16 02:38) Partial Thromboplastin Time (12/31/16 02:38) O2 (12/31/16 02:38) Monitor-Rhythm Ecg Trace Only (12/31/16 02:38) Saline Lock/Iv-Start (12/31/16 02:38) BNP (12/31/16 02:38) Albuterol/Ipra Inhalation Soln (Duoneb I (12/31/16 02:45) Svn Sm Volume Nebulizer Rt-Rfs (12/31/16 02:38) Albuterol Pre-Mix Nebs (Rt) (Proventil P (12/31/16 03:01) Svn Sm Volume Nebulizer Rt-Rfs (12/31/16 03:01) Morphine Injection (Morphine Injection (12/31/16 03:30) Ua Culture If Indicated (12/31/16 03:26) Fibrin Degradation Products (12/31/16 03:46) Ct Abd/Pelvis Wo(Kidney Stone) (12/31/16 04:30) Alcohol (12/31/16 04:43) Saline Lock/Iv-Start (12/31/16 05:09) Ns Iv 1000 Ml (Sodium Chloride 0.9%) (12/31/16 05:09) Enoxaparin Injection (Lovenox Injection) (12/31/16 05:45) Medications Given in ED Vital Signs/I&O Vital Sign - Last 12Hours 12/31/16 12/31/16 12/31/16 12/31/16 02:30 02:30 02:30 02:51 Temp 98.2 Pulse 83 Resp 18 B/P 104/55 Pulse Ox 100 99 99 O2 Delivery Nasal Cannula Nasal Cannula Room Air O2 Flow Rate 2 2 2 12/31/16 03:03 Pulse Ox 99 O2 Flow Rate 2 Blood Pressure Mean: 71 Progress Note #1: Time: 04:38 Progress Note patient's chest pain was treated with morphine. A DuoNeb treatment followed by an albuterol treatment did not improve his pain. He still had some residual wheezing after the treatments. So far no cause of his chest pain has been identified. He had a cardiac workup with cardiac catheter about 18 months ago showing only mild nonobstructive coronary artery disease. He had a follow-up stress test last March that was also negative. Chest x-ray failed to reveal any significant pathology. Therefore, a d-dimer was performed as patient was felt to be at risk for DVT due to his sedentary lifestyle from debility. Vascular access is very poor. No sufficient access has been obtained for CT angiogram. A VQ scan could be performed with the IV he has in the abdomen but the nuclear dye would not be available for several hours. A noncontrast CT of the abdomen and pelvis has been ordered for evaluation of renal stone as he has hematuria and left groin pain. Progress Note #2: Time: 05:35 Progress Note Patient is relatively comfortable at this time and dozing off to sleep. Patient had marginal blood pressures after falling asleep. A liter of IV fluids was initiated. Case was discussed with Dr. Houser. He believes patient should be admitted for cardiac rule out after reviewing history and prior cardiac studies. Since patient will be admitted, we will manage the elevated d- dimer by giving a single dose of Lovenox now and perform a CT angiogram of the chest after a PICC line can be placed. Dr. Houser also believes this patient should be considered for port. I also discussed the case with Dr. Lockhart who agrees this patient is at higher risk and should have pulmonary embolism ruled out. ECG Initial ECG Impression Date: Dec 31, 2016 Initial ECG Impression Time: 02:47 Initial ECG Rate: 80 Comment atrial paced rhythm with no ST elevation or depression. No significant changes in axis or intervals. No change from prior. Diagnostic Imaging Diagonstic Imaging: Xray Plain Films/CT/US/NM/MRI: chest Comments chest x-ray viewed by me. Report not yet available. No acute changes from prior. Diagonstic Imaging: CT Plain Films/CT/US/NM/MRI: abdomen, pelvis Comments CT abdomen and pelvis viewed by me and Stat Rad report reviewed. No acute findings to account for the hematuria or left groin pain. Departure Communication Time/Spoke to Admitting Phy: 05:48 Communication Case reviewed with Dr. Sanz who is agreeable to admission for cardiac rule out , placement of the PICC line, and CT angiogram to rule out pulmonary emboli. Time/Spoke to Consulting Physi: 05:30 Communication/Consulting see discussion above Impression Impression: Primary Impression: Chest pain Qualified Code: R07.9 - Chest pain, unspecified Additional Impressions: Coronary artery disease Qualified Code: I25.10 - Atherosclerotic heart disease of solomon coronary artery without angina pectoris Elevated d-dimer poor vascular access Left groin pain Hematuria Disposition: 09 ADMITTED INPATIENT Condition: Improved Decision to Admit Reason: Admit from ER (General) Decision to Admit/Date: Dec 31, 2016 Time/Decision to Admit Time: 05:30 Departure-Patient Inst. Referrals: NABILA LO MD (PCP/Family) Primary Care Physician LUMA WADE MD Dec 31, 2016 03:10 Diagonstic Imaging: CT Plain Films/CT/US/NM/MRI: abdomen, pelvis Comments CT abdomen and pelvis viewed by me and Stat Rad report reviewed. No acute findings to account for the hematuria or left groin pain. Departure Communication Time/Spoke to Admitting Phy: 05:48 Communication Case reviewed with Dr. Sanz who is agreeable to admission for cardiac rule out , placement of the PICC line, and CT angiogram to rule out pulmonary emboli. Time/Spoke to Consulting Physi: 05:30 Communication/Consulting see discussion above Impression Impression: Primary Impression: Chest pain Qualified Code: R07.9 - Chest pain, unspecified Additional Impressions: Coronary artery disease Qualified Code: I25.10 - Atherosclerotic heart disease of solomon coronary artery without angina pectoris Elevated d-dimer poor vascular access Left groin pain Hematuria Disposition: 09 ADMITTED INPATIENT Condition: Improved Decision to Admit Reason: Admit from ER (General) Decision to Admit/Date: Dec 31, 2016 Time/Decision to Admit Time: 05:30 Departure-Patient Inst. Referrals: NABILA LO MD (PCP/Family) Primary Care Physician LUMA WADE MD Dec 31, 2016 03:10
[2016-12-31 03:26] LABS: ALANINE AMINOTRANSFERASE 11 U/L (0-55); ALBUMIN 3.6 G/DL (3.2-4.5); ANION GAP 14 MMOL/L (5-14); ASPARTATE AMINO TRANSFERASE 21 U/L (5-34); BILIRUBIN,TOTAL 0.5 MG/DL (0.1-1.0); BLOOD UREA NITROGEN 19 MG/DL (7-18); BUN/CREATININE RATIO 20; CARBON DIOXIDE 19 MMOL/L (21-32); CHLORIDE 107 MMOL/L (98-107); CREATININE SERUM 0.94 MG/DL (0.60-1.30); GFR ESTIMATED > 60; GLUCOSE 89 MG/DL (70-105); MAGNESIUM 1.7 MG/DL (1.8-2.4); POTASSIUM 3.6 MMOL/L (3.6-5.0); SODIUM 140 MMOL/L (135-145); TOTAL PROTEIN 6.6 G/DL (6.4-8.2)
[2016-12-31] MEDS ORDERED: morphine INJ 10 MG/ML 1ML (SYR OR VIAL) IVP ONE (03:30)
[2016-12-31 03:33] LABS: MYOGLOBIN SERUM 88.5 NG/ML (10.0-92.0)
[2016-12-31 03:48] LABS: BILIRUBIN,URINE NEGATIVE (NEGATIVE); KETONES,URINE NEGATIVE (NEGATIVE); LEUKOCYTE ESTERASE ,URINE 3+ (NEGATIVE); NITRITE,URINE NEGATIVE (NEGATIVE); PH,URINE 5 (5-9); PROTEIN,URINE NEGATIVE (NEGATIVE); UROBILINOGEN,URINE NORMAL (NORMAL)
[2016-12-31 03:55] LABS: HYALINE CASTS, URINE 0-2 /LPF; WBC,URINE 0-2 /HPF
[2016-12-31] MEDS ORDERED: NS IV 1000 ML 1,000 ML IV ONE (05:09)
[2016-12-31] MEDS ORDERED: ENOXAPARIN 100 MG/1 ML (LOVENOX) SYR SC ONE (05:45)
--- NOTE | 2016-12-31 07:00 | Diagnostic Imaging Report ---
PROCEDURE: CT urinary tract, rule out kidney stone. TECHNIQUE: Multiple contiguous axial images were obtained through the abdomen and pelvis without the use of intravenous contrast. INDICATION: History of kidney stones with groin pain. FINDINGS: The lung bases are clear. Liver appears normal. Gallbladder is normal. Bile ducts not dilated. Pancreas and spleen are normal. The kidneys show smooth renal outlines. There are no renal calculi. No renal obstruction. Aorta is atherosclerotic without evidence of aneurysm. The stomach and small bowel are not distended. The colon shows normal stool and gas pattern. No finding to suggest appendicitis. No evidence of diverticulitis. Bladder appears normal. No free fluid is seen. No iliac chain adenopathy of pathologic size. Chronic changes are noted of the hips bilaterally with reabsorption of the right femoral head and acetabulum. There is arthroplasty of the left hip. IMPRESSION: 1. No evidence for renal calculi or obstruction. 2. Aorta is atherosclerotic without aneurysm. 3. Chronic changes noted of the hips bilaterally. These findings are in agreement with preliminary report. Dictated by: Dictated on workstation # [id number]
--- NOTE | 2016-12-31 07:36 | Diagnostic Imaging Report ---
INDICATION: Chest pain. Comparison with 12/04/2016. FINDINGS: The heart is not enlarged. Pacemaker is again noted on the left unchanged in position. The lungs are well-aerated and clear. No hilar adenopathy. No pulmonary edema. No pneumothorax or pleural effusions. IMPRESSION: No acute changes when compared with previous exam. Dictated by: Dictated on workstation # [id number]
[2016-12-31] MEDS ORDERED: morphine INJ 10 MG/ML 1ML (SYR OR VIAL) IV PRN (08:00)
[2016-12-31] MEDS ORDERED: ASPIRIN E.C. 325 MG (ECOTRIN) TABLET PO SCH (09:00)
[2016-12-31 09:18] LABS: CHOLESTEROL 198 MG/DL (< 200); DIRECT LDL 140 MG/DL (1-129); TRIGLYCERIDES 81 MG/DL (<150); VLDL CHOLESTEROL 16 MG/DL (5-40)
[2016-12-31] MEDS ORDERED: OXYC-465 PO (09:47)
--- NOTE | 2016-12-31 10:18 | Consultation-Cardiology ---
HPI-Cardiology Cardiology Consultation Date of Consultation 12/31/16 Date of Admission Indication: Chest pain HPI Patient is a 66 y/o male with history of CP, HTN, chronic pain syndrome. Presented to the ER with complaints of intermittent CP over the last week. States he took SL Nitro at home without any relief. Currently complains of CP rated 2/10. Denies any dizziness, lightheadedness, syncope. Patient was seen and evaluated with Maggie, a 66-year-old gentleman with history of hypertension, cardiac pacemaker, noncompliant with appointment, and as follow-up. Had a cardiac catheter has stress test in the past. Admitted with chest pain, atypical in presentation. Currently feeling better, had elevated d-dimer, scheduled for CT angiogram. Home Medications & Allergies Allergies: Coded Allergies: codeine (Verified Allergy, Mild, HIVES...TAKES OXYCODONE & MS CONTIN AT HOME, 07/29/07) streptokinase (Verified Allergy, Unknown, 07/29/07) Home Medication List Reviewed: Yes XSK-Hyzcaq-Cwjtto Hx Patient Social History Alcohol Use: Regular Use Recreational Drug Use: Yes Smoking Status: Current Everyday Smoker Former smoker/When Quit: Type Used: Cigarettes Recent Foreign Travel: No Recent Infectious Disease Expo: No Recent Hopitalizations: No Physical Abuse Screen: No Sexual Abuse: No Immunizations Up To Date Tetanus Booster (TDap): More than 5yrs Date of Pneumonia Vaccine: Nov 08, 2012 Date of Influenza Vaccine: Jul 26, 2016 Past Medical History CAD, SSS, HTN Family Medical History Significant Family History: No Pertinent Family Hx Family History: Constitutional: No chills, No diaphoresis, No malaise EENTM: No blurred vision, No double vision, No vision loss Respiratory: No cough, No dyspnea on exertion Cardiovascular: chest painNo edema, No palpitations Gastrointestinal: No abdominal pain, No constipation, No diarrhea Genitourinary: No dysuria, No frequency Musculoskeletal: No back pain Skin: No lesions, No rash Psychiatric/Neurological: Anxiety Depressed Reviewed Test Results Reviewed Test Results Lab Laboratory Tests 12/31/16 02:53: Activated Partial Thromboplast Time 29, Alanine Aminotransferase (ALT/SGPT) 11, Albumin 3.6, Alkaline Phosphatase 100, Anion Gap 14, Aspartate Amino Transf (AST /SGOT) 21, B-Type Natriuretic Peptide 55.3, BUN/Creatinine Ratio 20, Basophils # (Auto) 0.1, Basophils (%) (Auto) 1, Blood Urea Nitrogen 19H, Calcium Level 9.0 , Carbon Dioxide Level 19L, Chloride Level 107, Creatinine 0.94, D-Dimer 0.88H, Eosinophils # (Auto) 0.3, Eosinophils (%) (Auto) 3, Estimat Glomerular Filtration Rate > 60, Glucose Level 89, Hematocrit 40, Hemoglobin 13.7, INR Comment 1.0, Lymphocytes # (Auto) 2.5, Lymphocytes (%) (Auto) 27, Magnesium Level 1.7L, Mean Corpuscular Hemoglobin 30, Mean Corpuscular Hemoglobin Concent 34, Mean Corpuscular Volume 87, Mean Platelet Volume 10.7H, Monocytes # (Auto) 0.8, Monocytes (%) (Auto) 9, Myoglobin 88.5, Neutrophils # (Auto) 5.3, Neutrophils (%) (Auto) 59, Platelet Count 267, Potassium Level 3.6, Prothrombin Time 13.3, Red Blood Count 4.63, Red Cell Distribution Width 14.1, Serum Alcohol 24H, Sodium Level 140, Total Bilirubin 0.5, Total Protein 6.6, Troponin I < 0.30, White Blood Count 9.0 12/31/16 03:38: Urine Bacteria TRACE, Urine Bilirubin NEGATIVE, Urine Casts PRESENT, Urine Clarity SLIGHTLY CLOUDY, Urine Color YELLOW, Urine Crystals NONE, Urine Culture Indicated NO, Urine Glucose (UA) NEGATIVE, Urine Hyaline Casts 0-2H, Urine Ketones NEGATIVE, Urine Leukocyte Esterase 3+H, Urine Mucus NEGATIVE, Urine Nitrite NEGATIVE, Urine Protein NEGATIVE, Urine RBC 25-50H, Urine RBC (Auto) 5+H , Urine Specific [place] 1.015L, Urine Squamous Epithelial Cells 10-25H, Urine Urobilinogen NORMAL, Urine WBC 0-2, Urine pH 5 12/31/16 08:40: Cholesterol Level 198, HDL Cholesterol 47, LDL Cholesterol Direct 140H, Triglycerides Level 81, VLDL Cholesterol 16 ECG Impression ECG Initial ECG Rhythm: Normal Sinus Physical Exam Vital Signs Vital Sign - Last 12Hours 12/31/16 02:30 Temp 98.2 Pulse 83 Resp 18 B/P 104/55 Pulse Ox 100 O2 Delivery Nasal Cannula O2 Flow Rate 2 Capillary Refill : Less Than 3 SecondsLess Than 3 Seconds General Appearance: No Apparent Distress WD/WN HEENT: PERRL/EOMI TMs Normal Neck: Non Tender Supple Respiratory: Chest Non Tender Lungs Clear No Accessory Muscle Use No Respiratory Distress Cardiovascular: Regular Rate, Rhythm No Edema No Gallop No JVD No Murmur Gastrointestinal: Non Tender Soft Rectal: Deferred Back: No CVA Tenderness Extremity: Non Tender No Calf Tenderness Neurologic/Psychiatric: Alert 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 EKG revealed no acute ST changes, cardiac enzymes negative. Most recent stress test March 2016 showed no evidence of any significant myocardial ischemia or infarction. 2D Echo done 04/10 revealed EF 60% . Unlikely to be cardiac in nature. Patient has mildly elevated D-dimer. Planning for CTA chest. Nonobstructive CAD per cardiac catheterization done in Aug 2015. Continue to monitor. SSS, s/p Pacemaker implantation by Dr. Bennett 2011 d/t bradycardia and documented pauses of up to 3.2 seconds - has been non-compliant with f/u. Discussed the importance of compliance with pacemaker interrogation. HLP- Planning to evaluate lipid profile. Chronic pain syndrome H/o avascular necrosis of the hips Reported h/o hip replacements Polysubstance use for pain control - managed by his PCP Dr. Beasley ETOH use GERD COPD Extobaccoism Anxiety and Depression Thank you for allowing us to participate in the management of Mr. Jalloh. This is Maggie Pereira PA-C as a scribe for Dr. Trevino Patient was seen and evaluated with Maggie, interviewed the patient, examined him and obtain the history, he is known to me with history of chest pain, history of pacemaker, sick sinus syndrome, noncompliant with medication or appointments. Educated about the importance for pacemaker checkup. He is scheduled for CT angiogram of the chest today. Okay for discharge from cardiology standpoint and arrange for follow-up as an outpatient. I reviewed the note and agree with the current scribe, EDV minor modification and use Italic Font Clinical Quality Measures AMI/AHF: ASA po Prior to arrival: Yes DVT/VTE Risk/Contraindication: Risk Factor Score Per Nursin RFS Level Per Nursing on Admit: 4+=Very High MAGGIE GOLD Dec 31, 2016 10:18 SKYLA TREVINO MD Dec 31, 2016 15:14
[2016-12-31] MEDS ORDERED: CATHETER FLUSH 10 ML SYR IV PRN (10:45)
[2016-12-31] MEDS ORDERED: IOHEXOL 350 MG/ML 150 ML (OMNIPAQUE 350) VIAL IV ONE (10:45)
[2016-12-31] MEDS ORDERED: NS 100 ML (IVPB) BAG IV ONE (10:45)
--- NOTE | 2016-12-31 11:37 | Short Stay Summary-Hospitalist ---
HPI History of Present Illness: HPI/Chief Complaint CC: Chest pain and elevated D-Dimer HPI: This is a 66yoWM that presented with chest pain and elevated D-Dimer level of 0.88. Pt is currently stable, and is suspected of self-medicating while at [facility] since a morphine pill was found in his bed. CT scan was done in the ER but lost IV access so he had midline placed and CT scan angiogram was performed but then IV contrast dispensed out of the IV into the muscle of the left upper extremity intern architect: RN states that pt has pain in left arm and leg. Pt has been very drowsy and a morphine pill was found in pts bed. Patient Interview: Dr. Bhandari discusses contrast complications with pt, and pt states that he is in pain and his legs are a little numb. Pt states that he normally uses a wheelchair at home, and cannot walk. Pt lives alone. Pt's PCP is Dr. Beasley. Pt wishes to go home, and does not want to go to a rehab facility. Scribed by Octaviano Love under the direct supervision of Dr. Bhandari. Source: patient Exam Limitations: other (not willing to provide history in detail) Date Seen 12/31/16 Attending Physician Kirsten Bhandari DO PCP Jonathan Beasley MD Referring Physician Date of Admission Dec 31, 2016 at 05:49 Home Medications & Allergies Home Medications Reviewed patient Home Medication Reconciliation Form Allergies Coded Allergies: codeine (Verified Allergy, Mild, HIVES...TAKES OXYCODONE & MS CONTIN AT HOME, 07/29/07) streptokinase (Verified Allergy, Unknown, 07/29/07) Past Unzaacf-Vvlgvn-Azzqjd Hx Patient Social History Marrital Status: single Employed/Student: unemployed Alcohol Use: Regular Use Recreational Drug Use: Yes Smoking Status: Current Everyday Smoker Former smoker/When Quit: Type Used: Cigarettes Physical Abuse Screen: No Sexual Abuse: No Recent Foreign Travel: No Contact w/other who traveled: No Recent Hopitalizations: No Recent Infectious Disease Expo: No Immunizations Up To Date Tetanus Booster (TDap): More than 5yrs Date of Pneumonia Vaccine: Nov 08, 2012 Date of Influenza Vaccine: Jul 26, 2016 Seasonal Allergies Seasonal Allergies: No Surgeries HX Surgeries: Yes Surgeries: Abdominal, Appendectomy, Cardiac, Defibrillator, Joint Replacement, Orthopedic, Pacemaker Respiratory Hx Respiratory Disorders: Yes Respiratory Disorders: COPD Cardiovascular Hx Cardiovascular Disorders: Yes (PACEMAKER, CARDIAC ARREST, SELF - REPORTED WI X 8) Cardiac Disorders: Chronic Edema/Swelling, Coronary Artery Disease, Heart Attack, Hypertension, Irregular Heartbeat Neurological Hx Neurological Disorders: No Reproductive System Hx Reproductive Disorders: No Sexually Transmitted Disease: No Genitourinary Hx Genitourinary Disorders: Yes (patient performs self straight catheters) Genitourinary Disorders: Neurogenic Bladder Gastrointestinal Hx Gastrointestinal Disorders: Yes Gastrointestinal Disorders: Abdominal Hernia Musculoskeletal Hx Musculoskeletal Disorders: Yes (no hip joints related to sx) Musculoskeletal Disorders: Arthritis, Chronic Back Pain, Fractures Endocrine Hx Endocrine Disorders: Yes (OBESITY) Endocrine Disorders: Diabetes, Insulin dep HEENT HX ENT Disorders: Yes HEENT Disorders: Dysphagia Loss of Vision: Denies Hearing Impairment: Hard of Hearing Cancer Hx Cancer: No Psychosocial Hx Psychiatric Problems: Yes (ALCOHOL/POLYSUBSTANCE ABUSE/OVERDOSES-INTUBATED 2013, INCARCERATIONS) Behavioral Health Disorders: Suicide Attempts, Depression Integumentary HX Skin/Integumentary Disorder: No Blood Transfusions Hx Blood Disorders: No Family Medical History Significant Family History: No Pertinent Family Hx Family Hx: Review of Systems Constitutional: see HPI EENTM: no symptoms reported Respiratory: no symptoms reported Cardiovascular: chest pain Gastrointestinal: no symptoms reported Genitourinary: no symptoms reported Musculoskeletal: no symptoms reported Skin: no symptoms reported Psychiatric/Neurological: No Symptoms Reported All Other Systems Reviewed Negative Unless Noted: Yes Physical Exam Physical Exam Vital Signs Vital Sign - Last 12Hours 12/31/16 02:30 Temp 98.2 Pulse 83 Resp 18 B/P 104/55 Pulse Ox 100 O2 Delivery Nasal Cannula O2 Flow Rate 2 Capillary Refill : Less Than 3 SecondsLess Than 3 Seconds General Appearance: No Apparent Distress WD/WN Chronically ill Other (drowsy) Eyes: Bilateral Eye Normal Inspection, Bilateral Eye PERRL HEENT: PERRL/EOMI Normal ENT Inspection Pharynx Normal Neck: Full Range of Motion Normal Inspection Non Tender Supple Carotid Bruit Respiratory: Chest Non Tender Lungs Clear Normal Breath Sounds No Accessory Muscle Use No Respiratory Distress Cardiovascular: Regular Rate, Rhythm No Edema No Gallop No JVD No Murmur Normal Peripheral Pulses Gastrointestinal: Normal Bowel Sounds No Organomegaly No Pulsatile Mass Non Tender Soft Back: Normal Inspection No CVA Tenderness No Vertebral Tenderness Extremity: Normal Capillary Refill Normal Inspection Non Tender No Calf Tenderness No Pedal Edema Swelling (subtle swelling left upper arm but no redness and only mild tenderness from IV infiltration of contrast) Other ( unable to ambulate or move extensively and lower extremities due to hip surgeries) Neurologic/Psychiatric: Alert Oriented x3 No Motor/Sensory Deficits Depressed Affect Skin: Normal Color Warm/Dry Lymphatic: No Adenopathy Results Results/Procedures Lab Laboratory Tests 12/31/16 02:53 Short Stay Diagnosis Discharge Diagnosis-Short Stay Admission Diagnosis Assessment: Chest pain of uncertain etiology but patient has chronic pain Elevated D-Dimer at 0.88 with inability to successfully obtain CT angiogram due to poor IV access then IV access was lost with contrast dispensing into muscle of left arm Abdominal pain chronic Hematuria workup by Dr. Beasley in process likely passed stone Final Discharge Diagnosis Assessment: Chest pain of uncertain etiology but patient has chronic pain Elevated D-Dimer at 0.88 with inability to successfully obtain CT angiogram due to poor IV access then IV access was lost with contrast dispensing into muscle of left arm Abdominal pain chronic Hematuria workup by Dr. Beasley in process likely passed stone Conclusion Plan Plan: DC to home Cold compresses to the left arm in close follow-up with Dr. Beasley Poor prognosis long-term considering his severe and complex comorbidities and chronic pain management he refuses to do any more workup and wants to go home I did speak to Tanna SHAH for Dr. Beasley updated her on the plan and she agrees with close follow-up Clinical Quality Measures AMI/AHF: ASA po Prior to arrival: Yes DVT/VTE Risk/Contraindication: Risk Factor Score Per Nursin RFS Level Per Nursing on Admit: 4+=Very High KIRSTEN BHANDARI DO Dec 31, 2016 11:37
--- NOTE | 2016-12-31 11:49 | Discharge Instructions ---
Discharge Instructions Discharge Medications New, Converted or Re-Newed RX: Other (No new meds) Continued Medications: Alprazolam (Alprazolam) 1 Mg Tablet 1 MG PO TID PRN ANXIETY TAB Morphine Sulfate (Ms Contin) 100 Mg Tablet.er 200 MG PO BID TAKES 2 (100 MG) TABLETS TWICE DAILY IN CONJUNCTION WITH 1 TAB @ 1200 TAB Morphine Sulfate (Ms Contin) 100 Mg Tablet.er 100 MG PO DAILY@1200 TAB Oxycodone HCl/Acetaminophen (Oxycodone-Acetaminophen 10-325) 1 Each Tablet 1 TAB PO QID PRN MODERATE PAIN TAB Polyethylene Glycol 3350 (Miralax) 17 Gm Powd.pack 17 GM PO DAILY EACH Zolpidem Tartrate (Zolpidem Tartrate) 10 Mg Tablet 10 MG PO HS PRN SLEEP TAB Patient Instructions Goal/Follow Up Appt: Dr Beasley as scheduled Patient Instructions: Return if symptoms recur Activity & Diet Discharge Diet: No Restrictions Activity as Tolerated: Yes ZOHREH BHANDARI DO Dec 31, 2016 11:49
--- NOTE | 2016-12-31 11:53 | Diagnostic Imaging Report ---
PROCEDURE: CT angiography of the chest with contrast. TECHNIQUE: Multiple contiguous axial images were obtained through the chest after uneventful bolus administration of intravenous contrast. Reconstructed CTA MIP acquisitions were also performed. INDICATION: Respiratory distress. FINDINGS: This exam could not be completed as the contrast injected into the line in the left arm extravasated into the musculature. The precise amount of contrast is not certain, but I suspect it is in the 80-[address] images through this area do show that the contrast extends into the musculature along the medial aspect of the left upper arm. There is virtually no contrast in the arterial or venous system. This contrast reaction will be treated according to our protocol. IMPRESSION: 1. This exam could not be performed due to extravasation of contrast into the musculature of the left upper arm. 2. The patient is to undergo extravasation protocol therapy. 3. These results were called to Dr. Kirsten Sanz at the time of this dictation. CRITICAL FINDINGS Dictated by: Dictated on workstation # [id number]
[2016-12-31] MEDS ORDERED: HYALURONIDASE 150 UNIT/ML VIAL INJ ONE (12:45)
--- NOTE | 2017-01-01 08:33 | CONSULTATION REPORT ---
DATE OF ADMISSION: 12/31/2016 DATE OF CONSULTATION: 12/31/2016 ATTENDING PRIMARY PHYSICIAN: Dr. Sanz Mr. Nasir Jalloh is a 66-year-old male who presented early this morning with chest pain, hypertension, as well as chronic pain syndrome. This gentleman has a history of avascular necrosis and has had multiple joint problems and has had multiple surgeries of the bilateral hips. He had similar symptoms one week previous and was given sublingual nitroglycerin without any relief. He does not report any episodes of dizzy dizziness, lightheadedness or syncope. He did have cardiac work-up which was negative for myocardial infarction. He then was found to have a very slightly elevated D-dimer of 0.88. He has very poor peripheral venous circulation due to his previous medical issues including multiple surgeries. He underwent placement of a left upper extremity midline for IV contrast CT scan. During the process there was infiltration and swelling in the region of the left upper extremity along the medial aspect. Since having the procedure, being back to his room, as well as elevation and ice, the edema has decreased her dramatically. He has good peripheral pulses distally. There are no signs of compartment syndrome. PAST MEDICAL HISTORY: 1. Avascular necrosis. 2. Chest pain. 3. Coronary artery disease. 4. Hyperlipidemia. 5. Sick sinus syndrome. PAST SURGERIES: 1. Multiple hip surgeries, bilateral hips. 2. Other joint surgeries. ALLERGIES: 1. CODEINE 2. STREPTOKINASE MEDICATIONS: 1. MS Contin 100 mg daily. 2. Morphine 200 mg b.i.d. 3. Alprazolam 1 mg t.i.d. 4. MiraLAX daily. 5. Zolpidem 10 mg daily. 6. Oxycodone p.r.n. SOCIAL HISTORY: Positive smoke 40 pack-years. He does drink alcohol as well. VITAL SIGNS: Temperature 98.2, blood pressure 104/55, pulse 82, respirations 18. REVIEW OF SYSTEMS: This is a well-nourished male, currently in no acute distress. He is not experiencing shortness of breath or difficulty breathing. No chest pain, palpitations, diaphoresis. No nausea, vomiting, no diarrhea, constipation. No fever, chills, no recent inadvertent weight loss. PHYSICAL EXAMINATION: CHEST: Distant breath sounds bilaterally. HEART: Regular. EXTREMITIES: There is mild edema, along the upper portion of the medial and distal humerus from the infiltration site. The area is soft. There are no areas of skin necrosis. There are no signs of compartment syndrome with palpable distal radial pulse. HEENT: No scleral icterus. No cervical lymphadenopathy. ABDOMEN: Soft, nontender, nondistended. ASSESSMENT AND PLAN: 66-year-old male with chest pain, however, after cardiac work-up, as well as spiral CT scan there is no evidence of myocardial infarction, as well as no signs of pulmonary embolism. There was infiltration during the CT scan in the subcutaneous tissue from the midline in the left upper extremity. At this time with conservative management with elevation and cold compression, as well as hyaluronidase, the compartment is very soft and infiltration has mostly absorbed. He has good distal perfusion distally. He is to continue to keep the arm elevated for the next 24 hours. He may also add some light compression with an Rod wrap to speed the process of absorption. If he has any issues that develop, he is instructed to follow-up. Job ID: [id number] Dictated Date: 12/31/2016 15:15:01 Tape Fastener Machine Operator Date: 01/01/2017 08:20:47/mary DISLA
== END 2016-12-31 18:11 | disposition home or self-care (01) ==
LOC: EDUNIT# 02:14 → ER 02:19 → CSD 05:49
PROVIDERS: ADMIT Internal Medicine; ATTEND Internal Medicine
DX: R07.9 Chest pain, unspecified (principal); G89.29 Other chronic pain; R31.9 Hematuria, unspecified; I25.10 Atherosclerotic heart disease of native coronary artery without angina pectoris; I49.5 Sick sinus syndrome; M87.051 Idiopathic aseptic necrosis of right femur; M87.052 Idiopathic aseptic necrosis of left femur; I10 Essential (primary) hypertension; J44.9 Chronic obstructive pulmonary disease, unspecified; E11.9 Type 2 diabetes mellitus without complications; K21.9 Gastro-esophageal reflux disease without esophagitis; E78.5 Hyperlipidemia, unspecified; I70.0 Atherosclerosis of aorta; E66.9 Obesity, unspecified; Z79.891 Long term (current) use of opiate analgesic; Z79.899 Other long term (current) drug therapy; Z95.810 Presence of automatic (implantable) cardiac defibrillator
CPT/HCPCS: 36415; 71010; 71275; 74176; 76937; 80053; 80061; 80320; 81000; 83735; 83874; 83880; 84484; 85025; 85379; 85610; 85730; 93005; 93041; 94640; 96361; 96372; 96374; G0378

== ENCOUNTER 2017-01-02 05:27 | Emergency (ER) | payer MEDICARE, MEDICAID ==
[~2017-01-02] VITALS: Ht 172.7 cm; Wt 78.5 kg
[~2017-01-02 05:27] MED LIST changes: +OXYC-465 PO
--- OUTSIDE RECORDS SUMMARY | 2017-01-02 05:34 | XMS REPORT | Continuity of Care Document ---
Author Author [facility] Organization [facility] Address Unknown Phone Unavailable Care Team Providers Care Recreation Teacher Name Role Phone Jonathan Beasley PCP [phone] Source Comments Some departments are not documenting in the electronic medical record. If you do not see the information that you expected, contact Release of Information in the Health Information Management department at [phone] for further assistance in locating additional records.[facility] Active Allergies and Adverse Reactions Allergen [...] 13 daily. Active Problems Problem Noted Date DE (myocardial infarction) (HCC) 04/04/2014 Pacemaker 04/04/2014 Asthma [...] Taken Blood Pressure 147/78 11/23/2012 8:30 AM INTEL ANALYST Pulse 63 11/23/2012 8:30 AM INTEL ANALYST Temperature 36.8 C (98.3 F) 11/23/2012 8:30 AM INTEL ANALYST Respiratory Rate - - Height 1.727 m (5' 8") 11/19/2012 9:57 AM INTEL ANALYST Weight 86.183 kg (190 lb) 11/19/2012 9:57 AM INTEL ANALYST Body Mass Index 28.9 11/19/2012 9:57 AM INTEL ANALYST Oxygen Saturation 97% 11/23/2012 8:30 AM INTEL ANALYST Plan of Care Date Type Specialty Providers Description 01/28/2017 Appointment Orthopedic Surgery Traci Mota MD [address] [facility] [place] [address] [place] [address] [phone] (Fax) Health Maintenance Due Date Last Done Comments Hepatitis C Screening 1952 Physical (Comprehensive) 1959 Exam Pertussis Vaccine 1963 Tetanus Vaccine 1969 Colorectal Cancer 2002 Screening Shingles Vaccine 2012 Influenza Vaccine 06/26/2016 Results from Last 3 Months Not on file
--- NOTE | 2017-01-02 05:57 | ED Fall/Injury ---
General Chief Complaint: Trauma-Non Activation Stated Complaint: FELL & LANDED ON PACE MAKER,PAIN IN LEFT ARM Source: patient History of Present Illness Time seen by provider: 05:35 Initial Comments PT ARRIVES VIA POV FROM HOME STATES AT 0730 YESTERDAY AM, HE SLIPPED AND FELL IN THE BATHROOM, HITTING HIS LEFT CHEST AND LEFT UPPER ARM ON THE COUNTER OF THE SINK ( PT IS ESSENTIALLY NON -AMBULATORY AND WHEELCHAIR BOUND DUE TO NO HIP JOINTS) C/O LEFT UPPER ARM AND SHOULDER PAIN PT STATES HE THINKS HE KNOCKED HIS PACEMAKER LOOSE--STATES HE CAN FEEL IT MOVING AROUND NO CHEST PAIN NO SHORTNESS OF BREATH NO RECENT ILLNESS OR COUGH NO FEVER PT ADMITTED 12/04 FOR BENZODIAZEPINE OVER DOSE PT ADMITTED 12/31 FOR CHEST PAIN --PT WAS FOUND TO BE SELF-MEDICATING ON MORPHINE PILLS WHILE IN HOSPITAL. PT WITH MULTITUDE OF VISITS---MANY FOR OVERDOSES ON NARCOTICS, BENZODIAZEPINES, ALCOHOL -RELATED ISSUES. PT HAS BEEN EVICTED FROM MULTIPLE NURSING HOMES DUE TO BEHAVIOR ISSUES/ALCOHOL AND DRUG ABUSE PCP: DR. LO SALESPERSON TERRAZZO TILES: DR. SQUIRES--HAS ALSO SEEN DR. LOPEZ WELL Allergies and Home Medications Allergies Coded Allergies: codeine (Verified Allergy, Mild, HIVES...TAKES OXYCODONE & MS CONTIN AT HOME, 07/29/07) streptokinase (Verified Allergy, Unknown, 07/29/07) Home Medications Alprazolam 1 Mg Tablet 1 MG PO TID PRN PRN ANXIETY (Reported) Morphine Sulfate 100 Mg Tablet.er 200 MG PO BID (Reported) TAKES 2 (100 MG) TABLETS TWICE DAILY IN CONJUNCTION WITH 1 TAB @ 1200 Morphine Sulfate 100 Mg Tablet.er 100 MG PO DAILY@1200 (Reported) Oxycodone HCl/Acetaminophen 1 Each Tablet 1 TAB PO QID PRN PRN MODERATE PAIN ( Reported) Polyethylene Glycol 3350 17 Gm Powd.pack 17 GM PO DAILY (Reported) Zolpidem Tartrate 10 Mg Tablet 10 MG PO HS PRN PRN SLEEP (Reported) Constitutional: no symptoms reported Respiratory: no symptoms reported Cardiovascular: no symptoms reported Musculoskeletal: see HPI Skin: no symptoms reported Psychiatric/Neurological: Tingling (IN FINGERS) Past Cybuwzk-Vfgkjq-Uzpymq Hx Patient Social History Alcohol Use: Past History (HISTORY OF ABUSE--DENIES RECENT USE, PER PT ON 01/02) Recreational Drug Use: Yes (EXTENSIVE DRUG ABUSE/OVERDOSES ON NARCOTICS, BENZODIAZEPINES. HAS BEEN INTUBATED IN PAST) Smoking Status: Current Everyday Smoker (2 1/2 PPD) Type Used: Cigarettes Former Smoker/When Quit: Recent Foreign Travel: No Contact w/Someone Who Travel: No Recent Hopitalizations: No Immunizations Up To Date Tetanus Booster (TDap): More than 5yrs PED Vaccines UTD: No Date of Pneumonia Vaccine: Nov 08, 2012 Date of Influenza Vaccine: Jul 26, 2016 Seasonal Allergies Seasonal Allergies: No Surgeries HX Surgeries: Yes (22 HIP REPLACEMENTS-11 ON EACH HIP PER PT, NOW DOES NOT HAVE HIP JOINTS. MULTIPLE HIP/PELVIC SURGERIES; EGD; HERNIA REPAIR;CARDIAC CATHS ; LEFT KNEE SURGERY-PATELLA FX/TORN MENISCUS; BACK SURGERY; R WRIST FX/ORIF; BILAT WRIST SURGERIES; ELBOW SURGERY) Surgeries: Abdominal, Appendectomy, Cardiac, Defibrillator, Joint Replacement, Orthopedic, Pacemaker Respiratory Hx Respiratory Disorders: Yes (PT INTUBATED IN PAST DUE TO OVERDOSES/ETOH ) Respiratory Disorders: COPD Cardiovascular Hx Cardiac Disorders: Yes (PACEMAKER, CARDIAC ARREST, SELF - REPORTED PA X 8) Cardiac Disorders: Chronic Edema/Swelling, Coronary Artery Disease, Heart Attack, Hypertension, Irregular Heartbeat Neurological Hx Neurological Disorders: No Reproductive System Hx Reproductive Disorders: No Sexually Transmitted Disease: No Genitourinary Hx Genitourinary Disorders: Yes (patient performs self straight catheters) Genitourinary Disorders: Neurogenic Bladder Gastrointestinal Hx Gastrointestinal Disorders: Yes Gastrointestinal Disorders: Abdominal Hernia Musculoskeletal Hx Musculoskeletal Disorders: Yes (MULTIPLE FAILED HIP REPLACEMENTS AND NOW HAS NO HIP JOINTS. PT IS WHEELCHAIR-BOUND AND NON-AMBULATORY; AVASCULAR NECROSIS OF HIPS; CHRONIC GENERALIZED PAIN COMPLAINTS. ) Musculoskeletal Disorders: Arthritis, Chronic Back Pain, Fractures Endocrine Hx Endocrine Disorders: Yes (OBESITY) Endocrine Disorders: Diabetes, Insulin dep HEENT HX ENT Disorders: Yes HEENT Disorders: Dysphagia Loss of Vision: Denies Hearing Impairment: Hard of Hearing Cancer Hx Cancer: No Psychosocial Hx Psychiatric Problems: Yes (ALCOHOL/POLYSUBSTANCE ABUSE/OVERDOSES-INTUBATED 2012, INCARCERATIONS) Behavioral Health Disorders: Suicide Attempts, Depression Integumentary HX Skin/Integumentary Disorder: No Blood Transfusions Hx Blood Disorders: No Family Medical History Significant Family History: No Pertinent Family Hx Family Medial History: Physical Exam Vital Signs Vital Sign - Last 12Hours 01/02/17 05:34 Temp 96.1 Pulse 100 Resp 20 B/P 149/103 Pulse Ox 95 O2 Delivery Room Air Capillary Refill : General Appearance: WD/WN no apparent distress other (REEKS OF CIGARETTES. PT STILL WITH MONITOR LEAD PADS IN PLACE ON CHEST AND WITH DRESSINGS FROM IV STICKS STILL IN PLACE. ) Cardiovascular: regular rate, rhythm no murmur Respiratory: no respiratory distress no accessory muscle use wheezing (FAINT EXPIRATORY WHEEZING BILATERALLY. MILD TENDERNESS OVER PACEMAKER AND PACEMAKER DOES FEEL SLIGHTLY MOBILE. SKIN INTACT) Gastrointestinal: non tender soft Extremities: pedal edema (2+ EDEMA BILATERALLY) other (TENDERNESS TO LEFT SHOULDER AND UPPER ARM. NO DEFORMITY. MOTOR/SENSORY/VASCULAR INTACT. LIMITED ROM OF ARM DUE TO PAIN. ) Neurologic/Psychiatric: dry roller II-XII nml as tested no motor/sensory deficits alert normal mood/affect oriented x 3 Skin: normal color warm/dry other (OLD-APPEARING BRUISE TO LEFT UPPER ARM. ) Progress/Results/Core Measures Results/Orders My Orders Orders-WILFRED CAMPBELL DO Ekg Tracing (01/02/17 05:40) Chest Pa/Lat (2 View) (01/02/17 05:40) Humerus, Left, 2 Views (01/02/17 05:40) Vital Signs/I&O Vital Sign - Last 12Hours 01/02/17 05:34 Temp 96.1 Pulse 100 Resp 20 B/P 149/103 Pulse Ox 95 O2 Delivery Room Air ECG Initial ECG Impression Time: 05:56 Initial ECG Rate: 80 Initial ECG Comparisson: Unchanged Comment 100% ATRIAL PACED RHYTHM Diagnostic Imaging Comments CXR--NO ACUTE PROCESS, PACEMAKER AND LEADS IN PLACE LEFT HUMERUS XRAY--NO ACUTE PROCESS PENDING RADIOLOGIST REVIEWS Reviewed: Reviewed by Me Departure Impression Impression: Primary Impression: Status post fall Additional Impressions: LEFT UPPER ARM AND SHOULDER CONTUSION CONTUSION LEFT UPPER CHEST Disposition: 01 HOME, SELF-CARE Condition: Stable Departure-Patient Inst. Referrals: NABILA LO MD (PCP/Family) Primary Care Physician Patient Instructions: CHEST CONTUSION, Contusion (DC), Preventing Falls in the Older Adult Add. Discharge Instructions: ICE TO SORE AREAS AT 20 MINUTE INTERVALS FOLLOW UP WITH YOUR SALESPERSON TERRAZZO TILES NEXT WEEK FOLLOW UP WITH [facility] NEXT WEEK IF NO BETTER All discharge instructions reviewed with patient and/or family. Voiced understanding. WILFRED CAMPBELL DO Jan 02, 2017 05:57
[2017-01-02 06:52] VITALS: BP 155/94
--- NOTE | 2017-01-02 06:59 | Diagnostic Imaging Report ---
INDICATION: Chest injury from a fall. PA and lateral chest. There is left subclavian dual-chamber pacemaker with leads projecting over the right atrium and right ventricle. Heart size and pulmonary vascularity are normal. Lungs are clear. There are no effusions or pneumothoraces. IMPRESSION: Negative chest. Dictated by: Dictated on workstation # [id number]
--- NOTE | 2017-01-02 06:59 | Diagnostic Imaging Report ---
INDICATION: Left arm injury. FINDINGS: AP and lateral views of left humerus show no fracture or dislocation. IMPRESSION: Negative left humerus. Dictated by: Dictated on workstation # [id number]
== END 2017-01-02 06:52 | disposition home or self-care (01) ==
LOC: EDUNIT# 05:27 → ER 05:30
DX: S40.012A Contusion of left shoulder, initial encounter (principal); S40.022A Contusion of left upper arm, initial encounter; I10 Essential (primary) hypertension; E11.9 Type 2 diabetes mellitus without complications; I25.10 Atherosclerotic heart disease of native coronary artery without angina pectoris; F17.210 Nicotine dependence, cigarettes, uncomplicated; Z79.891 Long term (current) use of opiate analgesic; Z95.0 Presence of cardiac pacemaker; Z86.74 Personal history of sudden cardiac arrest; W05.0XXA Fall from non-moving wheelchair, initial encounter; Y92.012 Bathroom of single-family (private) house as the place of occurrence of the external cause; Y99.8 Other external cause status
CPT/HCPCS: 71020; 73060; 93005; 99282

== ENCOUNTER 2017-01-25 12:50 | Emergency (ER) | payer MEDICARE, MEDICAID ==
[~2017-01-25] VITALS: Ht 172.7 cm; Wt 78.5 kg
--- NOTE | 2017-01-25 13:38 | ED Chest Pain ---
General Chief Complaint: Chest Pain Stated Complaint: FALL/CP Source: patient, EMS Exam Limitations: no limitations History of Present Illness Time seen by provider: 13:33 Initial Comments This 66-year-old white male presents after he fell last night sustaining blunt trauma to the right side of his face and chest wall. Patient is complaining of right-sided chest pain made worse with a deep breath. Patient also states that he's had associated hemoptysis. The patient denies abdominal pain or associated nausea vomiting or diarrhea. The patient denies malocclusion dizziness, paresthesia or weakness following the neck injury. Allergies and Home Medications Allergies Coded Allergies: codeine (Verified Allergy, Mild, HIVES...TAKES OXYCODONE & MS CONTIN AT HOME, 07/29/07) streptokinase (Verified Allergy, Unknown, 07/29/07) Home Medications Alprazolam 1 Mg Tablet, 1 MG PO TID PRN for ANXIETY, (Reported) Morphine Sulfate 100 Mg Tablet.er, 200 MG PO BID, (Reported) TAKES 2 (100 MG) TABLETS TWICE DAILY IN CONJUNCTION WITH 1 TAB @ 1200 Morphine Sulfate 100 Mg Tablet.er, 100 MG PO DAILY@1200, (Reported) Oxycodone HCl/Acetaminophen 1 Each Tablet, 1 TAB PO QID PRN for MODERATE PAIN, ( Reported) Polyethylene Glycol 3350 17 Gm Powd.pack, 17 GM PO DAILY, (Reported) Zolpidem Tartrate 10 Mg Tablet, 10 MG PO HS PRN for SLEEP, (Reported) Review of Systems Constitutional: No chills, No fever, malaise EENTM: No Blurred Vision, No Ear Pain, No Throat Swelling Respiratory: Denies Cough Cardiovascular: Chest Pain, Denies Palpitations, Denies Syncope Gastrointestinal: Denies Abdominal Pain, Denies Nausea, Denies Vomiting Genitourinary: Denies Burning, Denies Frequency Musculoskeletal: No back pain, No joint swelling Skin: No rash Psychiatric/Neurological: No Symptoms Reported Endocrine: No Symptoms Reported Hematologic/Lymphatic: No Symptoms Reported Past Zlplfvs-Xfpvpy-Aabuny Hx Patient Social History Type Used: Cigarettes Recent Hopitalizations: No Immunizations Up To Date Tetanus Booster (TDap): More than 5yrs PED Vaccines UTD: No Date of Pneumonia Vaccine: Nov 08, 2012 Date of Influenza Vaccine: Jul 26, 2016 Seasonal Allergies Seasonal Allergies: No Surgeries HX Surgeries: Yes Surgeries: Abdominal, Appendectomy, Cardiac, Defibrillator, Joint Replacement, Orthopedic, Pacemaker Respiratory Hx Respiratory Disorders: Yes (PT INTUBATED IN PAST DUE TO OVERDOSES/ETOH ) Respiratory Disorders: COPD Cardiovascular Hx Cardiac Disorders: Yes (PACEMAKER, CARDIAC ARREST, SELF - REPORTED MA X 8) Cardiac Disorders: Chronic Edema/Swelling, Coronary Artery Disease, Heart Attack, Hypertension, Irregular Heartbeat Neurological Hx Neurological Disorders: No Reproductive System Hx Reproductive Disorders: No Sexually Transmitted Disease: No Genitourinary Hx Genitourinary Disorders: Yes (patient performs self straight catheters) Genitourinary Disorders: Neurogenic Bladder Gastrointestinal Hx Gastrointestinal Disorders: Yes Gastrointestinal Disorders: Abdominal Hernia Musculoskeletal Hx Musculoskeletal Disorders: Yes Musculoskeletal Disorders: Arthritis, Chronic Back Pain, Fractures Endocrine Hx Endocrine Disorders: Yes (OBESITY) Endocrine Disorders: Diabetes, Insulin dep HEENT HX ENT Disorders: Yes HEENT Disorders: Dysphagia Loss of Vision: Denies Hearing Impairment: Hard of Hearing Cancer Hx Cancer: No Psychosocial Hx Psychiatric Problems: Yes (ALCOHOL/POLYSUBSTANCE ABUSE/OVERDOSES-INTUBATED 2013, INCARCERATIONS) Behavioral Health Disorders: Suicide Attempts, Depression Integumentary HX Skin/Integumentary Disorder: No Blood Transfusions Hx Blood Disorders: No Reviewed Nursing Assessment Reviewed/Agree w Nursing PMH: Yes Family Medical History Significant Family History: No Pertinent Family Hx Family Medial History: Physical Exam Vital Signs Vital Sign - Last 12Hours 01/25/17 01/25/17 13:30 13:58 Temp 97.2 Pulse 82 Resp 22 B/P (MAP) 142/81 Pulse Ox 97 O2 Delivery Nasal Cannula O2 Flow Rate 2.0 Capillary Refill : General Appearance: No Apparent Distress, WD/WN HEENT: Normal ENT Inspection, Other (tenderness over the right mandible from his fall with secondary contusion.) Neck: Full Range of Motion, Normal Inspection, Non Tender Respiratory: Chest Non Tender, Lungs Clear, Normal Breath Sounds, Other (there is mild tenderness to palpation over the right chest wall.) Cardiovascular: Regular Rate, Rhythm, No Murmur Gastrointestinal: Normal Bowel Sounds, Non Tender Extremity: Normal Capillary Refill, Normal Inspection, Normal Range of Motion Neurologic/Psychiatric: No Motor/Sensory Deficits, Normal Mood/Affect Skin: Normal Color, Warm/Dry Progress/Results/Core Measures Results/Orders Lab Results Laboratory Tests Test 01/25/17 14:00 Range/Units White Blood Count 6.5 4.3-11.0 10^3/uL Red Blood Count 4.83 4.35-5.85 10^6/uL Hemoglobin 14.3 13.3-17.7 G/DL Hematocrit 42 40-54 % Mean Corpuscular Volume 86 80-99 FL Mean Corpuscular Hemoglobin 30 25-34 PG Mean Corpuscular Hemoglobin Concent 34 32-36 G/DL Red Cell Distribution Width 14.2 10.0-14.5 % Platelet Count 281 130-400 10^3/uL Mean Platelet Volume 11.1 H 7.4-10.4 FL Neutrophils (%) (Auto) 51 42-75 % Lymphocytes (%) (Auto) 36 12-44 % Monocytes (%) (Auto) 10 0-12 % Eosinophils (%) (Auto) 2 0-10 % Basophils (%) (Auto) 2 0-10 % Neutrophils # (Auto) 3.3 1.8-7.8 X 10^3 Lymphocytes # (Auto) 2.3 1.0-4.0 X 10^3 Monocytes # (Auto) 0.7 0.0-1.0 X 10^3 Eosinophils # (Auto) 0.2 0.0-0.3 10^3/uL Basophils # (Auto) 0.1 0.0-0.1 10^3/uL Sodium Level 141 135-145 MMOL/L Potassium Level 4.2 3.6-5.0 MMOL/L Chloride Level 107 98-107 MMOL/L Carbon Dioxide Level 19 L 21-32 MMOL/L Anion Gap 15 H 5-14 MMOL/L Blood Urea Nitrogen 14 7-18 MG/DL Creatinine 0.94 0.60-1.30 MG/DL Estimat Glomerular Filtration Rate > 60 BUN/Creatinine Ratio 15 Glucose Level 91 70-105 MG/DL Calcium Level 9.1 8.5-10.1 MG/DL Total Bilirubin 0.3 0.1-1.0 MG/DL Aspartate Amino Transf (AST/SGOT) 25 5-34 U/L Alanine Aminotransferase (ALT/SGPT) 10 0-55 U/L Alkaline Phosphatase 91 40-136 U/L Troponin I < 0.30 <0.30 NG/ML Total Protein 6.7 6.4-8.2 G/DL Albumin 3.6 3.2-4.5 G/DL My Orders Orders - JUANITO CARDENAS MD Cbc With Automated Diff (01/25/17 13:13) Comprehensive Metabolic Panel (01/25/17 13:13) Troponin I (01/25/17 13:13) Ekg Tracing (01/25/17 13:13) Ct Chest/Abdomen/Pelvis Wo (01/25/17 13:13) Ua Culture If Indicated (01/25/17 13:13) Ct Head/Cervical Spine Wo (01/25/17 13:13) Vital Signs/I&O Vital Sign - Last 12Hours 01/25/17 01/25/17 13:30 13:58 Temp 97.2 Pulse 82 Resp 22 B/P (MAP) 142/81 Pulse Ox 97 O2 Delivery Nasal Cannula Nasal Cannula O2 Flow Rate 2.0 Progress Note : Time: 15:53 Progress Note The patient's CT of the head and neck and the patient's CT of the chest and abdomen failed to demonstrate evidence of acute pathology. The patient rested quietly in the emergency department. Departure Impression Impression: Primary Impression: Fall Qualified Codes: W19.XXXA - Unspecified fall, initial encounter Additional Impression: Contusion of head Qualified Codes: S00.93XA - Contusion of unspecified part of head, initial encounter Disposition: 01 HOME, SELF-CARE Condition: Improved Departure-Patient Inst. Decision time for Depature: 15:58 Referrals: NABILA BEASLEY MD (PCP/Family) Primary Care Physician Patient Instructions: Chest Pain That Is Not Caused by the Heart (DC) Add. Discharge Instructions: Close follow-up with Dr. Beasley tomorrow. Vicodin for pain as needed. Return of any problems. All discharge instructions reviewed with patient and/or family. Voiced understanding. JUANITO CARDENAS MD Jan 25, 2017 13:38
[2017-01-25 14:06] LABS: BASOPHILS # (AUTO) 0.1 10^3/uL (0.0-0.1); BASOPHILS % (AUTO) 2 % (0-10); EOSINOPHILS # (AUTO) 0.2 10^3/uL (0.0-0.3); EOSINOPHILS % (AUTO) 2 % (0-10); LYMPHOCYTES # (AUTO) 2.3 X 10^3 (1.0-4.0); LYMPHOCYTES % (AUTO) 36 % (12-44); MEAN CORPUSCULAR HEMOGLOBIN 30 PG (25-34); MEAN CORPUSCULAR HGB CONC 34 G/DL (32-36); MEAN CORPUSCULAR VOLUME 86 FL (80-99); MEAN PLATELET VOLUME 11.1 FL (7.4-10.4); MONOCYTES # (AUTO) 0.7 X 10^3 (0.0-1.0); MONOCYTES % (AUTO) 10 % (0-12); NEUTROPHILS # (AUTO) 3.3 X 10^3 (1.8-7.8); NEUTROPHILS % (AUTO) 51 % (42-75); PLATELET COUNT 281 10^3/uL (130-400); RED BLOOD COUNT 4.83 10^6/uL (4.35-5.85); RED CELL DISTRIBUTION WIDTH 14.2 % (10.0-14.5); WHITE BLOOD COUNT 6.5 10^3/uL (4.3-11.0)
[2017-01-25 14:26] LABS: ALANINE AMINOTRANSFERASE 10 U/L (0-55); ALBUMIN 3.6 G/DL (3.2-4.5); ANION GAP 15 MMOL/L (5-14); ASPARTATE AMINO TRANSFERASE 25 U/L (5-34); BILIRUBIN,TOTAL 0.3 MG/DL (0.1-1.0); BLOOD UREA NITROGEN 14 MG/DL (7-18); BUN/CREATININE RATIO 15; CALCIUM 9.1 MG/DL (8.5-10.1); CARBON DIOXIDE 19 MMOL/L (21-32); CHLORIDE 107 MMOL/L (98-107); CREATININE SERUM 0.94 MG/DL (0.60-1.30); GFR ESTIMATED > 60; GLUCOSE 91 MG/DL (70-105); POTASSIUM 4.2 MMOL/L (3.6-5.0); SODIUM 141 MMOL/L (135-145); TOTAL PROTEIN 6.7 G/DL (6.4-8.2)
[2017-01-25 14:32] LABS: TROPONIN I < 0.30 NG/ML (<0.30)
--- NOTE | 2017-01-25 15:15 | Diagnostic Imaging Report ---
PROCEDURE: CT chest, abdomen, and pelvis without contrast. TECHNIQUE: Multiple contiguous axial images were obtained through the chest, abdomen, and pelvis without the use of intravenous contrast. INDICATION: Fall, pain. COMPARISON: December 31, 2016 FINDINGS: Pacer device is present with a battery pack overlying the left chest. No significant adenopathy within the chest. No aneurysmal dilatation of the thoracic aorta. Mild scattered vascular calcifications. No pericardial effusion. No pleural effusion. Mild background fibroemphysematous changes are again identified, appearing similar to the prior examination. Dependent atelectasis within the right lung. The lungs otherwise appear clear. No pneumothorax. Chronic left-sided rib fractures are present. No acute osseous abnormality identified within the chest. The unenhanced liver, spleen, adrenal glands, and pancreas are unremarkable. The gallbladder is unremarkable. The kidneys are unremarkable. Moderate vascular calcifications within the abdominal aorta and its branch vessels without aneurysmal dilatation of the abdominal aorta. The urinary bladder is unremarkable. Small fat-containing left inguinal hernia. No evidence of acute appendicitis. No bowel obstruction or pneumatosis. Moderate amount of stool throughout the colon. No significant adenopathy, free air, or free fluid within the abdomen or pelvis. Left hip arthroplasty is again identified. Right hip joint effusion with nonvisualization of the proximal right femur and deformity of the right acetabulum is again identified, appearing similar to the prior examination. Scattered osseous degenerative changes without acute osseous abnormality. IMPRESSION: 1. Presumed stable postsurgical and chronic findings within the right hip with associated prominent right hip joint effusion and nonvisualization of the right femoral head. 2. Mild background fibroemphysematous changes within the lungs. 3. Small fat-containing left inguinal hernia. 4. Moderate amount of stool throughout the colon which may relate to constipation. No evidence of bowel obstruction. 5. Additional postsurgical and chronic findings as described above. Dictated by: Dictated on workstation # [id number]
--- NOTE | 2017-01-25 15:19 | Diagnostic Imaging Report ---
PROCEDURE: CT head and CT cervical spine without contrast. TECHNIQUE: Multiple contiguous axial images were obtained through the brain and cervical spine without the use of intravenous contrast. Sagittal and coronal reformations through the cervical spine were then performed. INDICATION: Fell, head and neck pain. CT HEAD: There is no mass, shift of the midline or hemorrhage to suggest an acute intracranial abnormality. The ventricles are not abnormality dilated and stable in size when compared to the recent CT head exam of 12/04/16. The cortical atrophy and the periventricular encephalomalacia, seen previously, are again visualized and no different. Bone windows show no sign of a fracture or of a destructive lesion. The orbits and sinuses were not visualized in their entirety. Where visualized, there is no acute abnormality. IMPRESSION: There is no evidence for an acute intracranial abnormality. When compared with the prior study, there has been no significant change. 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 This is a developmental variant of segmentation. That finding is again evident and no different. The prior study also identified a 6 x 9 mm calcification adjacent to the medial aspect of the right lamina of C4. That finding is also again visualized and unchanged. The other degenerative disc and bony changes involving the cervical spine, seen previously, are again visualized and stable. There is still no fracture or acute bony abnormality appreciated. There is no sign of retropharyngeal edema. The thyroid gland is unremarkable. The lung apices are clear. IMPRESSION: There is no evidence for an acute bony abnormality. When compared to the previous study, there has been no adverse change. Dictated by: Dictated on workstation # [id number]
[2017-01-25 16:14] VITALS: BP 100/55
--- OUTSIDE RECORDS SUMMARY | 2017-02-17 12:08 | XMS REPORT | Continuity of Care Document ---
Author Author [facility] Organization [facility] Address Unknown Phone Unavailable Care Team Providers Care [employer]airer [employer] Name Role Phone Jonathan Beasley PCP [phone] Source Comments Some departments are not documenting in the electronic medical record. If you do not see the information that you expected, contact Release of Information in the Health Information Management department at [phone] for further assistance in locating additional records.[facility] Active Allergies and Adverse Reactions Allergen Noted [...] 13 daily. Active Problems Problem Noted Date DC (myocardial infarction) (HCC) 04/04/2014 Pacemaker 04/04/2014 Asthma 04/04/2014 S/P bilateral hip replacements 04/04/2014 S/P hardware removal 04/04/2014 S/P cervical spinal fusion 04/04/2014 Hip pain 11/25/2012 Pain in joint, pelvic region and thigh 04/05/2008 Pain in joint, lower leg 04/05/2008 Most Recent Encounters Date Type Specialty Providers Description 01/22/2017 Orders Only Orthopedic Surgery Traci Mota MD Hip joint replacement status (Primary Dx) Social History Tobacco Use Types Packs/Day Years Used Date Current Every Day Smoker Cigarettes 0.5 35 Alcohol Use Drinks/Week oz/Week Comments Yes 1 Cans of 0.6 beer Last Filed Vital Signs Vital Sign Reading Time Taken Blood Pressure 147/78 11/23/2012 8:30 AM BAND PRESSER Pulse 63 11/23/2012 8:30 AM BAND PRESSER Temperature 36.8 C (98.3 F) 11/23/2012 8:30 AM BAND PRESSER Respiratory Rate - - Height 1.727 m (5' 8") 11/19/2012 9:57 AM BAND PRESSER Weight 86.183 kg (190 lb) 11/19/2012 9:57 AM BAND PRESSER Body Mass Index 28.9 11/19/2012 9:57 AM BAND PRESSER Oxygen Saturation 97% 11/23/2012 8:30 AM BAND PRESSER Plan of Care Health Maintenance Due Date Last Done Comments Hepatitis C Screening 1952 Physical (Comprehensive) 1959 Exam Pertussis Vaccine 1963 Tetanus Vaccine 1969 Colorectal Cancer 2002 Screening Shingles Vaccine 2012 Influenza Vaccine 06/26/2017 Results from Last 3 Months Not on file
--- OUTSIDE RECORDS SUMMARY | 2017-02-17 12:12 | XMS REPORT | Continuity of Care Document ---
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 CARDENAS MD Ot Y99.8 OTHER EXTERNAL CAUSE STATUS 01/27/2017 JUANITO CARDENAS MD Ot Z79.899 OTHER TIE SAWYER (CURRENT) DRUG THERAPY 01/27/2017 JUANITO CARDENAS MD Ot Z95.0 PRESENCE OF CARDIAC PACEMAKER Procedures Code Description Performed By Performed On 96.04 INSERT ENDOTRACHEAL TUBE 01/05/2013 96.71 CONTINUOUS INVASIVE MECHANICAL VENTILATI 01/05/2013 Results Test Result Range Complete blood count (CBC) with automated white blood cell (WBC) differential - 06/05/16 20:28 Blood leukocytes automated count (number/volume) 13.4 10*3/ uL 4.3-11.0 Blood erythrocytes automated count (number/volume) 4.45 10*6 /uL 4.35-5.85 Venous blood hemoglobin measurement (mass/volume) 12.9 g/dL 13.3-17.7 Blood hematocrit (volume fraction) 38 % 40-54 Automated erythrocyte mean corpuscular volume 86 [foz_us] 80-99 Automated erythrocyte mean corpuscular hemoglobin (mass per erythrocyte) 29 pg 25-34 Automated erythrocyte mean corpuscular hemoglobin concentration measurement ( mass/volume) 34 g/dL 32-36 Automated erythrocyte distribution width ratio 13.4 % 10.0-14.5 Automated blood platelet count (count/volume) 252 10*3/uL 130-400 Automated blood platelet mean volume measurement 11.2 [foz_ us] 7.4-10.4 Automated blood neutrophils/100 leukocytes 64 % 42-75 Automated blood lymphocytes/100 leukocytes 28 % 12-44 Blood monocytes/100 leukocytes 6 % 0-12 Automated blood eosinophils/100 leukocytes 2 % 0-10 Automated blood basophils/100 leukocytes 1 % 0-10 Blood neutrophils automated count (number/volume) 8.5 10*3 1.8-7.8 Blood lymphocytes automated count (number/volume) 3.7 10*3 1.0-4.0 Blood monocytes automated count (number/volume) 0.9 10*3 0.0-1.0 Automated eosinophil count 0.2 10*3/uL 0.0-0.3 Automated blood basophil count (count/volume) 0.1 10*3/uL 0.0-0.1 PT panel in platelet poor plasma by coagulation assay - 06/05/16 20:28 Prothrombin time (PT) in platelet poor plasma by coagulation assay 13.0 s 12.2-14.7 INR in platelet poor plasma or blood by coagulation assay 1.0 0.8-1.4 Blood lactic acid measurement (moles/volume) - 06/05/16 20:28 Blood lactic acid measurement (moles/volume) 1.9 mmol/L 0.5-2.0 Comprehensive metabolic panel - 06/05/16 20:28 Serum or plasma sodium measurement (moles/volume) 133 mmol/ L 135-145 Serum or plasma potassium measurement (moles/volume) 4.3 mmol/L 3.6-5.0 Serum or plasma chloride measurement (moles/volume) 104 mmol /L 98-107 Carbon dioxide 17 mmol/L 21-32 Serum or plasma anion gap determination (moles/volume) 12 mmol/L 5-14 Serum or plasma urea nitrogen measurement (mass/volume) 19 mg/dL 7-18 Serum or plasma creatinine measurement (mass/volume) 0.99 mg /dL 0.60-1.30 Serum or plasma urea nitrogen/creatinine mass ratio 19 NRG Serum or plasma creatinine measurement with calculation of estimated glomerular filtration rate > NRG Serum or plasma glucose measurement (mass/volume) 87 mg/dL 70-105 Serum or plasma calcium measurement (mass/volume) 9.1 mg/dL 8.5-10.1 Serum or plasma total bilirubin measurement (mass/volume) 0.7 mg/dL 0.1-1.0 Serum or plasma alkaline phosphatase measurement (enzymatic activity/volume) 85 U/L 40-136 Serum or plasma aspartate aminotransferase measurement (enzymatic activity/ volume) 20 U/L 5-34 Serum or plasma alanine aminotransferase measurement (enzymatic activity/volume ) 11 U/L 0-55 Serum or plasma protein measurement (mass/volume) 6.6 g/dL 6.4-8.2 Serum or plasma albumin measurement (mass/volume) 3.7 g/dL 3.2-4.5 Serum or plasma phosphate measurement (mass/volume) - 06/05/16 20:28 Serum or plasma phosphate measurement (mass/volume) 3.4 mg/ dL 2.3-4.7 Magnesium - 06/05/16 20:28 Magnesium 2.1 mg/dL 1.8-2.4 Serum or plasma troponin i.cardiac measurement (mass/volume) - 06/05/16 20:28 Serum or plasma troponin i.cardiac measurement (mass/volume) < ng/mL <0.30 Serum or plasma ethanol measurement (mass/volume) - 06/05/16 20:28 Serum or plasma ethanol measurement (mass/volume) 51 mg/dL <10 Complete urinalysis with reflex to culture - 06/05/16 20:34 Urine color determination YELLOW NRG Urine clarity determination CLEAR NRG Urine pH measurement by test strip 5 5- 9 Specific gravity of urine by test strip 1.020 1.016-1.022 Urine protein assay by test strip, semi-quantitative NEGATIVE NEGATIVE Urine glucose detection by automated test strip NEGATIVE NEGATIVE Erythrocytes detection in urine sediment by light microscopy NEGATIVE NEGATIVE Urine ketones detection by automated test strip NEGATIVE NEGATIVE Urine nitrite detection by test strip NEGATIVE NEGATIVE Urine total bilirubin detection by test strip NEGATIVE NEGATIVE Urine urobilinogen measurement by automated test strip (mass/volume) 1 mg/dL NORMAL Urine leukocyte esterase detection by dipstick 1+ NEGATIVE Automated urine sediment erythrocyte count by microscopy (number/high power field) NONE NRG Automated urine sediment leukocyte count by microscopy (number/high power field ) [HPF] NRG Bacteria detection in urine sediment by light microscopy NEGATIVE NRG Squamous epithelial cells detection in urine sediment by light microscopy 10-25 NRG Crystals detection in urine sediment by light microscopy NONE NRG Casts detection in urine sediment by light microscopy PRESENT NRG Mucus detection in urine sediment by light microscopy NEGATIVE NRG Complete urinalysis with reflex to culture NO NRG Hyaline casts detection in urine sediment by light microscopy 5-10 NRG Urine drug screening test - 06/05/16 20:34 Urine acetaminophen detection by screening method NEGATIVE NEGATIVE Urine phencyclidine detection by screening method NEGATIVE NEGATIVE Urine benzodiazepines detection by screening method POSITIVE NEGATIVE Urine cocaine detection NEGATIVE NEGATIVE Urine amphetamines detection by screening method NEGATIVE NEGATIVE Urine methamphetamine detection by screening method NEGATIVE NEGATIVE Urine cannabinoids detection by screening method NEGATIVE NEGATIVE Urine opiates detection by screening method POSITIVE NEGATIVE Urine barbiturates detection NEGATIVE NEGATIVE Screening urine tricyclic antidepressants detection POSITIVE NEGATIVE Urine methadone detection by screening method NEGATIVE NEGATIVE Bacterial urine culture - 07/02/16 01:20 Bacterial urine culture [id number] NRG COLONY COUNT >100,000/ML NRG FTX;REPORTABLE SENSITIVITY REPORTED 07/03/16 7:45 NRG Bacterial susceptibility panel - 07/02/16 01:20 Gentamicin susceptibility test by minimum inhibitory concentration S NRG Vancomycin susceptibility test by minimum inhibitory concentration 1 NRG Levofloxacin susceptibility test by minimum inhibitory concentration 1 NRG Tetracycline susceptibility test by minimum inhibitory concentration <= NRG Ampicillin susceptibility test by minimum inhibitory concentration <= NRG Nitrofurantoin susceptibility test by minimum inhibitory concentration <= NRG Linezolid susceptibility test by minimum inhibitory concentration 2 NRG Bacterial blood culture - 07/02/16 01:56 Bacterial blood culture NG NRG Bacterial blood culture - 07/02/16 02:00 Bacterial blood culture NG NRG Methicillin resistant Staphylococcus aureus (MRSA) screening culture - 03:08 Methicillin resistant Staphylococcus aureus (MRSA) screening culture NEG NRG Complete blood count (CBC) with automated white blood cell (WBC) differential - 09/21/16 06:00 Blood leukocytes automated count (number/volume) 8.1 10*3/ uL 4.3-11.0 Blood erythrocytes automated count (number/volume) 4.44 10*6 /uL 4.35-5.85 Venous blood hemoglobin measurement (mass/volume) 12.9 g/dL 13.3-17.7 Blood hematocrit (volume fraction) 39 % 40-54 Automated erythrocyte mean corpuscular volume 88 [foz_us] 80-99 Automated erythrocyte mean corpuscular hemoglobin (mass per erythrocyte) 29 pg 25-34 Automated erythrocyte mean corpuscular hemoglobin concentration measurement ( mass/volume) 33 g/dL 32-36 Automated erythrocyte distribution width ratio 14.0 % 10.0-14.5 Automated blood platelet count (count/volume) 270 10*3/uL 130-400 Automated blood platelet mean volume measurement 11.6 [foz_ us] 7.4-10.4 Automated blood neutrophils/100 leukocytes 43 % 42-75 Automated blood lymphocytes/100 leukocytes 42 % 12-44 Blood monocytes/100 leukocytes 11 % 0-12 Automated blood eosinophils/100 leukocytes 4 % 0-10 Automated blood basophils/100 leukocytes 1 % 0-10 Blood neutrophils automated count (number/volume) 3.5 10*3 1.8-7.8 Blood lymphocytes automated count (number/volume) 3.4 10*3 1.0-4.0 Blood monocytes automated count (number/volume) 0.9 10*3 0.0-1.0 Automated eosinophil count 0.3 10*3/uL 0.0-0.3 Automated blood basophil count (count/volume) 0.1 10*3/uL 0.0-0.1 PT panel in platelet poor plasma by coagulation assay - 09/21/16 06:00 Prothrombin time (PT) in platelet poor plasma by coagulation assay 13.0 s 12.2-14.7 INR in platelet poor plasma or blood by coagulation assay 1.0 0.8-1.4 Activated partial thromboplastin time (aPTT) in platelet poor plasma bycoagulation assay - 09/21/16 06:00 Activated partial thromboplastin time (aPTT) in platelet poor plasma bycoagulation assay 26 s 24-35 Serum or plasma lithium measurement (moles/volume) - 09/21/16 06:00 BNP level 37.3 pg/mL <100.0 Comprehensive metabolic panel - 09/21/16 06:00 Serum or plasma sodium measurement (moles/volume) 141 mmol/ L 135-145 Serum or plasma potassium measurement (moles/volume) 3.8 mmol/L 3.6-5.0 Serum or plasma chloride measurement (moles/volume) 109 mmol /L 98-107 Carbon dioxide 22 mmol/L 21-32 Serum or plasma anion gap determination (moles/volume) 10 mmol/L 5-14 Serum or plasma urea nitrogen measurement (mass/volume) 18 mg/dL 7-18 Serum or plasma creatinine measurement (mass/volume) 0.82 mg /dL 0.60-1.30 Serum or plasma urea nitrogen/creatinine mass ratio 22 NRG Serum or plasma creatinine measurement with calculation of estimated glomerular filtration rate > NRG Serum or plasma glucose measurement (mass/volume) 107 mg/dL 70-105 Serum or plasma calcium measurement (mass/volume) 9.0 mg/dL 8.5-10.1 Serum or plasma total bilirubin measurement (mass/volume) 0.4 mg/dL 0.1-1.0 Serum or plasma alkaline phosphatase measurement (enzymatic activity/volume) 84 U/L 40-136 Serum or plasma aspartate aminotransferase measurement (enzymatic activity/ volume) 15 U/L 5-34 Serum or plasma alanine aminotransferase measurement (enzymatic activity/volume ) 7 U/L 0-55 Serum or plasma protein measurement (mass/volume) 6.0 g/dL 6.4-8.2 Serum or plasma albumin measurement (mass/volume) 3.6 g/dL 3.2-4.5 Magnesium - 09/21/16 06:00 Magnesium 2.1 mg/dL 1.8-2.4 Serum or plasma creatine kinase measurement (enzymatic activity/volume) - 09/21 06:00 Serum or plasma creatine kinase measurement (enzymatic activity/volume) 29 U/L 30-200 Serum or plasma creatine kinase MB measurement (enzymatic activity/volume) - 06:00 Serum or plasma creatine kinase MB measurement (enzymatic activity/volume) 1.0 ng/mL <6.6 Serum or plasma troponin i.cardiac measurement (mass/volume) - 09/21/16 06:00 Serum or plasma troponin i.cardiac measurement (mass/volume) < ng/mL <0.30 Serum or plasma amylase measurement (enzymatic activity/volume) - 09/21/16 06: 00 Serum or plasma amylase measurement (enzymatic activity/volume) 54 U/L 25-125 Lipase - 09/21/16 06:00 Lipase 11 U/L 8-78 Serum or plasma ethanol measurement (mass/volume) - 09/21/16 06:00 Serum or plasma ethanol measurement (mass/volume) < mg/dL <10 Complete urinalysis with reflex to culture - 09/21/16 06:20 Urine color determination YELLOW NRG Urine clarity determination CLEAR NRG Urine pH measurement by test strip 6 5- 9 Specific gravity of urine by test strip 1.015 1.016-1.022 Urine protein assay by test strip, semi-quantitative NEGATIVE NEGATIVE Urine glucose detection by automated test strip NEGATIVE NEGATIVE Erythrocytes detection in urine sediment by light microscopy NEGATIVE NEGATIVE Urine ketones detection by automated test strip NEGATIVE NEGATIVE Urine nitrite detection by test strip NEGATIVE NEGATIVE Urine total bilirubin detection by test strip NEGATIVE NEGATIVE Urine urobilinogen measurement by automated test strip (mass/volume) 4 mg/dL NORMAL Urine leukocyte esterase detection by dipstick 1+ NEGATIVE Automated urine sediment erythrocyte count by microscopy (number/high power field) RARE NRG Automated urine sediment leukocyte count by microscopy (number/high power field ) RARE NRG Bacteria detection in urine sediment by light microscopy TRACE NRG Squamous epithelial cells detection in urine sediment by light microscopy 5-10 NRG Crystals detection in urine sediment by light microscopy NONE NRG Casts detection in urine sediment by light microscopy NONE NRG Mucus detection in urine sediment by light microscopy NEGATIVE NRG Complete urinalysis with reflex to culture NO NRG Urine drug screening test - 09/21/16 06:20 Urine phencyclidine detection by screening method NEGATIVE NEGATIVE Urine benzodiazepines detection by screening method POSITIVE NEGATIVE Urine cocaine detection NEGATIVE NEGATIVE Urine amphetamines detection by screening method NEGATIVE NEGATIVE Urine methamphetamine detection by screening method NEGATIVE NEGATIVE Urine cannabinoids detection by screening method NEGATIVE NEGATIVE Urine opiates detection by screening method POSITIVE NEGATIVE Urine barbiturates detection NEGATIVE NEGATIVE Screening urine tricyclic antidepressants detection NEGATIVE NEGATIVE Urine methadone detection by screening method NEGATIVE NEGATIVE Urine oxycodone detection NEGATIVE NEGATIVE Urine propoxyphene detection NEGATIVE NEGATIVE Serum or plasma troponin i.cardiac measurement (mass/volume) - 09/21/16 08:10 Serum or plasma troponin i.cardiac measurement (mass/volume) < ng/mL <0.30 Complete blood count (CBC) with automated white blood cell (WBC) differential - 10/19/16 05:34 Blood leukocytes automated count (number/volume) 8.0 10*3/ uL 4.3-11.0 Blood erythrocytes automated count (number/volume) 4.60 10*6 /uL 4.35-5.85 Venous blood hemoglobin measurement (mass/volume) 13.6 g/dL 13.3-17.7 Blood hematocrit (volume fraction) 41 % 40-54 Automated erythrocyte mean corpuscular volume 89 [foz_us] 80-99 Automated erythrocyte mean corpuscular hemoglobin (mass per erythrocyte) 30 pg 25-34 Automated erythrocyte mean corpuscular hemoglobin concentration measurement ( mass/volume) 33 g/dL 32-36 Automated erythrocyte distribution width ratio 14.1 % 10.0-14.5 Automated blood platelet count (count/volume) 272 10*3/uL 130-400 Automated blood platelet mean volume measurement 11.6 [foz_ us] 7.4-10.4 Automated blood neutrophils/100 leukocytes 48 % 42-75 Automated blood lymphocytes/100 leukocytes 38 % 12-44 Blood monocytes/100 leukocytes 10 % 0-12 Automated blood eosinophils/100 leukocytes 3 % 0-10 Automated blood basophils/100 leukocytes 1 % 0-10 Blood neutrophils automated count (number/volume) 3.9 10*3 1.8-7.8 Blood lymphocytes automated count (number/volume) 3.0 10*3 1.0-4.0 Blood monocytes automated count (number/volume) 0.8 10*3 0.0-1.0 Automated eosinophil count 0.2 10*3/uL 0.0-0.3 Automated blood basophil count (count/volume) 0.1 10*3/uL 0.0-0.1 PT panel in platelet poor plasma by coagulation assay - 10/19/16 05:53 Prothrombin time (PT) in platelet poor plasma by coagulation assay 12.6 s 12.2-14.7 INR in platelet poor plasma or blood by coagulation assay 1.0 0.8-1.4 Activated partial thromboplastin time (aPTT) in platelet poor plasma bycoagulation assay - 10/19/16 05:53 Activated partial thromboplastin time (aPTT) in platelet poor plasma bycoagulation assay 27 s 24-35 Comprehensive metabolic panel - 10/19/16 05:53 Serum or plasma sodium measurement (moles/volume) 142 mmol/ L 135-145 Serum or plasma potassium measurement (moles/volume) 3.7 mmol/L 3.6-5.0 Serum or plasma chloride measurement (moles/volume) 108 mmol /L 98-107 Carbon dioxide 24 mmol/L 21-32 Serum or plasma anion gap determination (moles/volume) 10 mmol/L 5-14 Serum or plasma urea nitrogen measurement (mass/volume) 21 mg/dL 7-18 Serum or plasma creatinine measurement (mass/volume) 0.84 mg /dL 0.60-1.30 Serum or plasma urea nitrogen/creatinine mass ratio 25 NRG Serum or plasma creatinine measurement with calculation of estimated glomerular filtration rate > NRG Serum or plasma glucose measurement (mass/volume) 84 mg/dL 70-105 Serum or plasma calcium measurement (mass/volume) 9.2 mg/dL 8.5-10.1 Serum or plasma total bilirubin measurement (mass/volume) 0.4 mg/dL 0.1-1.0 Serum or plasma alkaline phosphatase measurement (enzymatic activity/volume) 91 U/L 40-136 Serum or plasma aspartate aminotransferase measurement (enzymatic activity/ volume) 19 U/L 5-34 Serum or plasma alanine aminotransferase measurement (enzymatic activity/volume ) 9 U/L 0-55 Serum or plasma protein measurement (mass/volume) 6.5 g/dL 6.4-8.2 Serum or plasma albumin measurement (mass/volume) 3.7 g/dL 3.2-4.5 Magnesium - 10/19/16 05:53 Magnesium 2.2 mg/dL 1.8-2.4 Serum or plasma creatine kinase measurement (enzymatic activity/volume) - 10/19 05:53 Serum or plasma creatine kinase measurement (enzymatic activity/volume) 31 U/L 30-200 Serum or plasma creatine kinase MB measurement (enzymatic activity/volume) - 05:53 Serum or plasma creatine kinase MB measurement (enzymatic activity/volume) 1.1 ng/mL <6.6 Serum or plasma troponin i.cardiac measurement (mass/volume) - 10/19/16 05:53 Serum or plasma troponin i.cardiac measurement (mass/volume) < ng/mL <0.30 Serum or plasma ethanol measurement (mass/volume) - 10/19/16 05:53 Serum or plasma ethanol measurement (mass/volume) 37 mg/dL <10 Serum or plasma lithium measurement (moles/volume) - 10/19/16 05:53 BNP level 34.0 pg/mL <100.0 Complete urinalysis with reflex to culture - 10/19/16 06:06 Urine color determination YELLOW NRG Urine clarity determination CLEAR NRG Urine pH measurement by test strip 6 5- 9 Specific gravity of urine by test strip 1.025 1.016-1.022 Urine protein assay by test strip, semi-quantitative NEGATIVE NEGATIVE Urine glucose detection by automated test strip NEGATIVE NEGATIVE Erythrocytes detection in urine sediment by light microscopy NEGATIVE NEGATIVE Urine ketones detection by automated test strip 1+ NEGATIVE Urine nitrite detection by test strip NEGATIVE NEGATIVE Urine total bilirubin detection by test strip 1+ NEGATIVE Urine urobilinogen measurement by automated test strip (mass/volume) 4 mg/dL NORMAL Urine leukocyte esterase detection by dipstick 1+ NEGATIVE Automated urine sediment erythrocyte count by microscopy (number/high power field) RARE NRG Automated urine sediment leukocyte count by microscopy (number/high power field ) RARE NRG Bacteria detection in urine sediment by light microscopy NEGATIVE NRG Squamous epithelial cells detection in urine sediment by light microscopy 0-2 NRG Crystals detection in urine sediment by light microscopy NONE NRG Casts detection in urine sediment by light microscopy PRESENT NRG Mucus detection in urine sediment by light microscopy NEGATIVE NRG Complete urinalysis with reflex to culture NO NRG Hyaline casts detection in urine sediment by light microscopy RARE NRG Urine drug screening test - 10/19/16 06:06 Urine phencyclidine detection by screening method NEGATIVE NEGATIVE Urine benzodiazepines detection by screening method POSITIVE NEGATIVE Urine cocaine detection NEGATIVE NEGATIVE Urine amphetamines detection by screening method NEGATIVE NEGATIVE Urine methamphetamine detection by screening method NEGATIVE NEGATIVE Urine cannabinoids detection by screening method NEGATIVE NEGATIVE Urine opiates detection by screening method POSITIVE NEGATIVE Urine barbiturates detection NEGATIVE NEGATIVE Screening urine tricyclic antidepressants detection NEGATIVE NEGATIVE Urine methadone detection by screening method NEGATIVE NEGATIVE Urine oxycodone detection NEGATIVE NEGATIVE Urine propoxyphene detection NEGATIVE NEGATIVE Serum or plasma troponin i.cardiac measurement (mass/volume) - 10/19/16 08:50 Serum or plasma troponin i.cardiac measurement (mass/volume) < ng/mL <0.30 Complete urinalysis with reflex to culture - 12/04/16 11:15 Urine color determination YELLOW NRG Urine clarity determination CLEAR NRG Urine pH measurement by test strip 6 5- 9 Specific gravity of urine by test strip 1.015 1.016-1.022 Urine protein assay by test strip, semi-quantitative NEGATIVE NEGATIVE Urine glucose detection by automated test strip NEGATIVE NEGATIVE Erythrocytes detection in urine sediment by light microscopy NEGATIVE NEGATIVE Urine ketones detection by automated test strip NEGATIVE NEGATIVE Urine nitrite detection by test strip NEGATIVE NEGATIVE Urine total bilirubin detection by test strip NEGATIVE NEGATIVE Urine urobilinogen measurement by automated test strip (mass/volume) NORMAL NORMAL Urine leukocyte esterase detection by dipstick 3+ NEGATIVE Automated urine sediment erythrocyte count by microscopy (number/high power field) NONE NRG Automated urine sediment leukocyte count by microscopy (number/high power field ) [HPF] NRG Bacteria detection in urine sediment by light microscopy FEW NRG Squamous epithelial cells detection in urine sediment by light microscopy 10-25 NRG Crystals detection in urine sediment by light microscopy NONE NRG Casts detection in urine sediment by light microscopy NONE NRG Mucus detection in urine sediment by light microscopy NEGATIVE NRG Complete urinalysis with reflex to culture YES NRG Bacterial urine culture - 12/04/16 11:15 Bacterial urine culture [id number] NRG COLONY COUNT >100,000/ML NRG FTX;REPORTABLE SENSITIVITY REPORTED 12/06/16 8:35 NRG Bacterial susceptibility panel - 12/04/16 11:15 Gentamicin susceptibility test by minimum inhibitory concentration S NRG Vancomycin susceptibility test by minimum inhibitory concentration 1 NRG Levofloxacin susceptibility test by minimum inhibitory concentration 1 NRG Tetracycline susceptibility test by minimum inhibitory concentration <= NRG Ampicillin susceptibility test by minimum inhibitory concentration <= NRG Nitrofurantoin susceptibility test by minimum inhibitory concentration <= NRG Linezolid susceptibility test by minimum inhibitory concentration 2 NRG Complete blood count (CBC) with automated white blood cell (WBC) differential - 12/04/16 11:29 Blood leukocytes automated count (number/volume) 8.5 10*3/ uL 4.3-11.0 Blood erythrocytes automated count (number/volume) 4.33 10*6 /uL 4.35-5.85 Venous blood hemoglobin measurement (mass/volume) 12.7 g/dL 13.3-17.7 Blood hematocrit (volume fraction) 37 % 40-54 Automated erythrocyte mean corpuscular volume 86 [foz_us] 80-99 Automated erythrocyte mean corpuscular hemoglobin (mass per erythrocyte) 29 pg 25-34 Automated erythrocyte mean corpuscular hemoglobin concentration measurement ( mass/volume) 34 g/dL 32-36 Automated erythrocyte distribution width ratio 13.8 % 10.0-14.5 Automated blood platelet count (count/volume) 222 10*3/uL 130-400 Automated blood platelet mean volume measurement 11.2 [foz_ us] 7.4-10.4 Automated blood neutrophils/100 leukocytes 57 % 42-75 Automated blood lymphocytes/100 leukocytes 28 % 12-44 Blood monocytes/100 leukocytes 11 % 0-12 Automated blood eosinophils/100 leukocytes 3 % 0-10 Automated blood basophils/100 leukocytes 1 % 0-10 Blood neutrophils automated count (number/volume) 4.9 10*3 1.8-7.8 Blood lymphocytes automated count (number/volume) 2.3 10*3 1.0-4.0 Blood monocytes automated count (number/volume) 1.0 10*3 0.0-1.0 Automated eosinophil count 0.2 10*3/uL 0.0-0.3 Automated blood basophil count (count/volume) 0.1 10*3/uL 0.0-0.1 Comprehensive metabolic panel - 12/04/16 11:29 Serum or plasma sodium measurement (moles/volume) 139 mmol/ L 135-145 Serum or plasma potassium measurement (moles/volume) 3.7 mmol/L 3.6-5.0 Serum or plasma chloride measurement (moles/volume) 108 mmol /L 98-107 Carbon dioxide 21 mmol/L 21-32 Serum or plasma anion gap determination (moles/volume) 10 mmol/L 5-14 Serum or plasma urea nitrogen measurement (mass/volume) 16 mg/dL 7-18 Serum or plasma creatinine measurement (mass/volume) 0.88 mg /dL 0.60-1.30 Serum or plasma urea nitrogen/creatinine mass ratio 18 NRG Serum or plasma creatinine measurement with calculation of estimated glomerular filtration rate > NRG Serum or plasma glucose measurement (mass/volume) 91 mg/dL 70-105 Serum or plasma calcium measurement (mass/volume) 8.7 mg/dL 8.5-10.1 Serum or plasma total bilirubin measurement (mass/volume) 0.5 mg/dL 0.1-1.0 Serum or plasma alkaline phosphatase measurement (enzymatic activity/volume) 99 U/L 40-136 Serum or plasma aspartate aminotransferase measurement (enzymatic activity/ volume) 20 U/L 5-34 Serum or plasma alanine aminotransferase measurement (enzymatic activity/volume ) 14 U/L 0-55 Serum or plasma protein measurement (mass/volume) 6.0 g/dL 6.4-8.2 Serum or plasma albumin measurement (mass/volume) 3.6 g/dL 3.2-4.5 Bacterial blood culture - 12/04/16 13:48 Bacterial blood culture NG NRG Blood lactic acid measurement (moles/volume) - 12/04/16 13:50 Blood lactic acid measurement (moles/volume) 2.2 mmol/L 0.5-2.0 Bacterial blood culture - 12/04/16 13:50 Bacterial blood culture NG NRG Serum or plasma lactate measurement (moles/volume) - 12/04/16 15:48 Serum or plasma lactate measurement (moles/volume) 1.3 mmol/ L 0.5-2.0 Complete blood count (CBC) with automated white blood cell (WBC) differential - 12/31/16 02:53 Blood leukocytes automated count (number/volume) 9.0 10*3/ uL 4.3-11.0 Blood erythrocytes automated count (number/volume) 4.63 10*6 /uL 4.35-5.85 Venous blood hemoglobin measurement (mass/volume) 13.7 g/dL 13.3-17.7 Blood hematocrit (volume fraction) 40 % 40-54 Automated erythrocyte mean corpuscular volume 87 [foz_us] 80-99 Automated erythrocyte mean corpuscular hemoglobin (mass per erythrocyte) 30 pg 25-34 Automated erythrocyte mean corpuscular hemoglobin concentration measurement ( mass/volume) 34 g/dL 32-36 Automated erythrocyte distribution width ratio 14.1 % 10.0-14.5 Automated blood platelet count (count/volume) 267 10*3/uL 130-400 Automated blood platelet mean volume measurement 10.7 [foz_ us] 7.4-10.4 Automated blood neutrophils/100 leukocytes 59 % 42-75 Automated blood lymphocytes/100 leukocytes 27 % 12-44 Blood monocytes/100 leukocytes 9 % 0-12 Automated blood eosinophils/100 leukocytes 3 % 0-10 Automated blood basophils/100 leukocytes 1 % 0-10 Blood neutrophils automated count (number/volume) 5.3 10*3 1.8-7.8 Blood lymphocytes automated count (number/volume) 2.5 10*3 1.0-4.0 Blood monocytes automated count (number/volume) 0.8 10*3 0.0-1.0 Automated eosinophil count 0.3 10*3/uL 0.0-0.3 Automated blood basophil count (count/volume) 0.1 10*3/uL 0.0-0.1 PT panel in platelet poor plasma by coagulation assay - 12/31/16 02:53 Prothrombin time (PT) in platelet poor plasma by coagulation assay 13.3 s 12.2-14.7 INR in platelet poor plasma or blood by coagulation assay 1.0 0.8-1.4 Activated partial thromboplastin time (aPTT) in platelet poor plasma bycoagulation assay - 12/31/16 02:53 Activated partial thromboplastin time (aPTT) in platelet poor plasma bycoagulation assay 29 s 24-35 Comprehensive metabolic panel - 12/31/16 02:53 Serum or plasma sodium measurement (moles/volume) 140 mmol/ L 135-145 Serum or plasma potassium measurement (moles/volume) 3.6 mmol/L 3.6-5.0 Serum or plasma chloride measurement (moles/volume) 107 mmol /L 98-107 Carbon dioxide 19 mmol/L 21-32 Serum or plasma anion gap determination (moles/volume) 14 mmol/L 5-14 Serum or plasma urea nitrogen measurement (mass/volume) 19 mg/dL 7-18 Serum or plasma creatinine measurement (mass/volume) 0.94 mg /dL 0.60-1.30 Serum or plasma urea nitrogen/creatinine mass ratio 20 NRG Serum or plasma creatinine measurement with calculation of estimated glomerular filtration rate > NRG Serum or plasma glucose measurement (mass/volume) 89 mg/dL 70-105 Serum or plasma calcium measurement (mass/volume) 9.0 mg/dL 8.5-10.1 Serum or plasma total bilirubin measurement (mass/volume) 0.5 mg/dL 0.1-1.0 Serum or plasma alkaline phosphatase measurement (enzymatic activity/volume) 100 U/L 40-136 Serum or plasma aspartate aminotransferase measurement (enzymatic activity/ volume) 21 U/L 5-34 Serum or plasma alanine aminotransferase measurement (enzymatic activity/volume ) 11 U/L 0-55 Serum or plasma protein measurement (mass/volume) 6.6 g/dL 6.4-8.2 Serum or plasma albumin measurement (mass/volume) 3.6 g/dL 3.2-4.5 Magnesium - 12/31/16 02:53 Magnesium 1.7 mg/dL 1.8-2.4 Serum or plasma lithium measurement (moles/volume) - 12/31/16 02:53 BNP level 55.3 pg/mL <100.0 Serum or plasma troponin i.cardiac measurement (mass/volume) - 12/31/16 02:53 Serum or plasma troponin i.cardiac measurement (mass/volume) < ng/mL <0.30 Myoglobin, serum - 12/31/16 02:53 Myoglobin, serum 88.5 ng/mL 10.0-92.0 Fibrin D-dimer FEU measurement in platelet poor plasma (mass/volume) - 02:53 Fibrin D-dimer FEU measurement in platelet poor plasma (mass/volume) 0.88 ug/mL 0.00-0.49 Serum or plasma ethanol measurement (mass/volume) - 12/31/16 02:53 Serum or plasma ethanol measurement (mass/volume) 24 mg/dL <10 Complete urinalysis with reflex to culture - 12/31/16 03:38 Urine color determination YELLOW NRG Urine clarity determination SLIGHTLY CLOUDY NRG Urine pH measurement by test strip 5 5- 9 Specific gravity of urine by test strip 1.015 1.016-1.022 Urine protein assay by test strip, semi-quantitative NEGATIVE NEGATIVE Urine glucose detection by automated test strip NEGATIVE NEGATIVE Erythrocytes detection in urine sediment by light microscopy 5+ NEGATIVE Urine ketones detection by automated test strip NEGATIVE NEGATIVE Urine nitrite detection by test strip NEGATIVE NEGATIVE Urine total bilirubin detection by test strip NEGATIVE NEGATIVE Urine urobilinogen measurement by automated test strip (mass/volume) NORMAL NORMAL Urine leukocyte esterase detection by dipstick 3+ NEGATIVE Automated urine sediment erythrocyte count by microscopy (number/high power field) [HPF] NRG Automated urine sediment leukocyte count by microscopy (number/high power field ) [HPF] NRG Bacteria detection in urine sediment by light microscopy TRACE NRG Squamous epithelial cells detection in urine sediment by light microscopy 10-25 NRG Crystals detection in urine sediment by light microscopy NONE NRG Casts detection in urine sediment by light microscopy PRESENT NRG Mucus detection in urine sediment by light microscopy NEGATIVE NRG Complete urinalysis with reflex to culture NO NRG Hyaline casts detection in urine sediment by light microscopy 0-2 NRG Lipid 1996 panel - 12/31/16 08:40 Serum or plasma triglyceride measurement (mass/volume) 81 mg /dL <150 Serum or plasma cholesterol measurement (mass/volume) 198 mg /dL < 200 Serum or plasma cholesterol in HDL measurement (mass/volume) 47 mg/dL 40-60 Cholesterol in LDL [mass/volume] in serum or plasma by direct assay 140 mg/dL 1-129 Serum or plasma cholesterol in VLDL measurement (mass/volume) 16 mg/dL 5-40 Complete blood count (CBC) with automated white blood cell (WBC) differential - 01/25/17 14:00 Blood leukocytes automated count (number/volume) 6.5 10*3/ uL 4.3-11.0 Blood erythrocytes automated count (number/volume) 4.83 10*6 /uL 4.35-5.85 Venous blood hemoglobin measurement (mass/volume) 14.3 g/dL 13.3-17.7 Blood hematocrit (volume fraction) 42 % 40-54 Automated erythrocyte mean corpuscular volume 86 [foz_us] 80-99 Automated erythrocyte mean corpuscular hemoglobin (mass per erythrocyte) 30 pg 25-34 Automated erythrocyte mean corpuscular hemoglobin concentration measurement ( mass/volume) 34 g/dL 32-36 Automated erythrocyte distribution width ratio 14.2 % 10.0-14.5 Automated blood platelet count (count/volume) 281 10*3/uL 130-400 Automated blood platelet mean volume measurement 11.1 [foz_ us] 7.4-10.4 Automated blood neutrophils/100 leukocytes 51 % 42-75 Automated blood lymphocytes/100 leukocytes 36 % 12-44 Blood monocytes/100 leukocytes 10 % 0-12 Automated blood eosinophils/100 leukocytes 2 % 0-10 Automated blood basophils/100 leukocytes 2 % 0-10 Blood neutrophils automated count (number/volume) 3.3 10*3 1.8-7.8 Blood lymphocytes automated count (number/volume) 2.3 10*3 1.0-4.0 Blood monocytes automated count (number/volume) 0.7 10*3 0.0-1.0 Automated eosinophil count 0.2 10*3/uL 0.0-0.3 Automated blood basophil count (count/volume) 0.1 10*3/uL 0.0-0.1 Comprehensive metabolic panel - 01/25/17 14:00 Serum or plasma sodium measurement (moles/volume) 141 mmol/ L 135-145 Serum or plasma potassium measurement (moles/volume) 4.2 mmol/L 3.6-5.0 Serum or plasma chloride measurement (moles/volume) 107 mmol /L 98-107 Carbon dioxide 19 mmol/L 21-32 Serum or plasma anion gap determination (moles/volume) 15 mmol/L 5-14 Serum or plasma urea nitrogen measurement (mass/volume) 14 mg/dL 7-18 Serum or plasma creatinine measurement (mass/volume) 0.94 mg /dL 0.60-1.30 Serum or plasma urea nitrogen/creatinine mass ratio 15 NRG Serum or plasma creatinine measurement with calculation of estimated glomerular filtration rate > NRG Serum or plasma glucose measurement (mass/volume) 91 mg/dL 70-105 Serum or plasma calcium measurement (mass/volume) 9.1 mg/dL 8.5-10.1 Serum or plasma total bilirubin measurement (mass/volume) 0.3 mg/dL 0.1-1.0 Serum or plasma alkaline phosphatase measurement (enzymatic activity/volume) 91 U/L 40-136 Serum or plasma aspartate aminotransferase measurement (enzymatic activity/ volume) 25 U/L 5-34 Serum or plasma alanine aminotransferase measurement (enzymatic activity/volume ) 10 U/L 0-55 Serum or plasma protein measurement (mass/volume) 6.7 g/dL 6.4-8.2 Serum or plasma albumin measurement (mass/volume) 3.6 g/dL 3.2-4.5 Serum or plasma troponin i.cardiac measurement (mass/volume) - 01/25/17 14:00 Serum or plasma troponin i.cardiac measurement (mass/volume) < ng/mL <0.30 Encounters ACCT No. Visit Date/Time Discharge Status Pt. Type Provider Facility Loc./Unit Complaint [id number] 02/01/2013 09:52:00 02/01/2013 23: 59:59 [facility] Outpatient LUCILA EVANS, YANCI
== END 2017-01-25 16:14 | disposition home or self-care (01) ==
LOC: EDUNIT# 12:50 → ER 12:51
DX: S00.93XA Contusion of unspecified part of head, initial encounter (principal); S20.211A Contusion of right front wall of thorax, initial encounter; M25.451 Effusion, right hip; K40.90 Unilateral inguinal hernia, without obstruction or gangrene, not specified as recurrent; K59.00 Constipation, unspecified; I10 Essential (primary) hypertension; E11.9 Type 2 diabetes mellitus without complications; I25.10 Atherosclerotic heart disease of native coronary artery without angina pectoris; J44.9 Chronic obstructive pulmonary disease, unspecified; E66.9 Obesity, unspecified; Z79.899 Other long term (current) drug therapy; Z95.0 Presence of cardiac pacemaker; W19.XXXA Unspecified fall, initial encounter; Y99.8 Other external cause status
CPT/HCPCS: 36415; 70450; 71250; 72125; 74176; 80053; 84484; 85025; 93005

== ENCOUNTER 2017-02-19 20:24 | Inpatient (IN) | payer MEDICARE, MEDICAID ==
[~2017-02-19] VITALS: Ht 172.7 cm; Wt 92.2 kg
--- NOTE | 2017-02-19 20:57 | Diagnostic Imaging Report ---
PROCEDURE: CT head without contrast. TECHNIQUE: Multiple contiguous axial images were obtained through the brain without the use of intravenous contrast. DATE: February 19, 2017. COMPARISON: CT head and cervical spine January 25, 2017. INDICATION: 66-year-old male, found on floor this morning. Confusion. FINDINGS: There is soft tissue swelling just above the level of the left orbit. The globes appear grossly intact. There is no identified retro-orbital hematoma. The ventricles and cerebral spinal fluid spaces are of normal size and configuration for the patient's age. There is no mass effect or midline shift. There is no acute intracranial hemorrhage. There is no abnormal extra-axial fluid collection. The visualized portions of the paranasal sinuses, mastoid air cells and middle ears are well aerated. IMPRESSION: 1. No identified acute intracranial abnormality. 2. Mild soft tissue swelling just above the level of the left orbit which potentially could relate to a soft tissue contusion/hematoma. Dictated by: Dictated on workstation # [id number]
[2017-02-19 21:02] LABS: BILIRUBIN,URINE NEGATIVE (NEGATIVE); KETONES,URINE NEGATIVE (NEGATIVE); LEUKOCYTE ESTERASE ,URINE NEGATIVE (NEGATIVE); NITRITE,URINE NEGATIVE (NEGATIVE); PH,URINE 5 (5-9); PROTEIN,URINE NEGATIVE (NEGATIVE); UROBILINOGEN,URINE NORMAL (NORMAL)
[2017-02-19 21:03] LABS: BASOPHILS # (AUTO) 0.1 10^3/uL (0.0-0.1); BASOPHILS % (AUTO) 1 % (0-10); EOSINOPHILS # (AUTO) 0.2 10^3/uL (0.0-0.3); EOSINOPHILS % (AUTO) 2 % (0-10); LYMPHOCYTES # (AUTO) 2.2 X 10^3 (1.0-4.0); LYMPHOCYTES % (AUTO) 22 % (12-44); MEAN CORPUSCULAR HEMOGLOBIN 29 PG (25-34); MEAN CORPUSCULAR HGB CONC 33 G/DL (32-36); MEAN CORPUSCULAR VOLUME 88 FL (80-99); MEAN PLATELET VOLUME 10.9 FL (7.4-10.4); MONOCYTES % (AUTO) 10 % (0-12); NEUTROPHILS # (AUTO) 6.5 X 10^3 (1.8-7.8); NEUTROPHILS % (AUTO) 65 % (42-75); PLATELET COUNT 291 10^3/uL (130-400); RED BLOOD COUNT 4.65 10^6/uL (4.35-5.85); RED CELL DISTRIBUTION WIDTH 13.9 % (10.0-14.5); WHITE BLOOD COUNT 10.1 10^3/uL (4.3-11.0)
[2017-02-19 21:14] LABS: PROTHROMBIN TIME PATIENT 13.2 SEC (12.2-14.7)
[2017-02-19 21:15] LABS: WBC,URINE RARE /HPF
[2017-02-19] MEDS ORDERED: NALOXONE 2 MG/2 ML (NARCAN) SYR IV ONE (21:30)
[2017-02-19 21:37] LABS: ALANINE AMINOTRANSFERASE 8 U/L (0-55); ALBUMIN 3.5 G/DL (3.2-4.5); ANION GAP 11 MMOL/L (5-14); ASPARTATE AMINO TRANSFERASE 19 U/L (5-34); BILIRUBIN,TOTAL 0.6 MG/DL (0.1-1.0); BLOOD UREA NITROGEN 15 MG/DL (7-18); BUN/CREATININE RATIO 17; CALCIUM 9.2 MG/DL (8.5-10.1); CARBON DIOXIDE 21 MMOL/L (21-32); CHLORIDE 106 MMOL/L (98-107); CREATININE SERUM 0.87 MG/DL (0.60-1.30); GFR ESTIMATED > 60; GLUCOSE 91 MG/DL (70-105); MAGNESIUM 1.9 MG/DL (1.8-2.4); POTASSIUM 4.4 MMOL/L (3.6-5.0); SODIUM 138 MMOL/L (135-145); TOTAL PROTEIN 6.5 G/DL (6.4-8.2)
[2017-02-19 21:42] LABS: ALCOHOL < 10 MG/DL (<10)
[2017-02-19 21:43] LABS: MYOGLOBIN SERUM 180.1 NG/ML (10.0-92.0)
--- NOTE | 2017-02-19 22:28 | Diagnostic Imaging Report ---
PROCEDURE: CT maxillofacial without contrast. TECHNIQUE: Multiple contiguous axial images were obtained through the facial bones without the use of intravenous contrast. DATE: February 19, 2017. INDICATION: A 66-year-old male status post fall. Abrasion above the left eyebrow. COMPARISON: None. FINDINGS: The temporomandibular joints are normally aligned. The mandible is intact. There is no identified acute appearing nasal bone fracture. There is deviation of the bony nasal septum to the left of midline. There is no identified acute maxillofacial bone fracture. The mastoid air cells and middle ears are well aerated. Unremarkable appearance of the orbits. There is no retro-orbital hematoma. There is mild soft tissue swelling lateral to the left orbit which would be compatible with soft tissue contusion/hematoma. There is no radiopaque foreign body. There are mild degenerative changes of the cervical spine. IMPRESSION: 1. No identified acute maxillofacial bone fracture. 2. Soft tissue contusion/hematoma lateral to the left orbit. Unremarkable appearance of the globes. No retro-orbital hematoma. Dictated by: Dictated on workstation # [id number]
--- NOTE | 2017-02-19 22:32 | Diagnostic Imaging Report ---
PROCEDURE: CT cervical spine without contrast. TECHNIQUE: Multiple contiguous axial images were obtained through the cervical spine without the use of intravenous contrast. Sagittal and coronal reformations were then performed. DATE: February 19, 2017. INDICATION: 66-year-old male, status post fall. Confusion. COMPARISON: CT head and cervical spine, January 25, 2017. FINDINGS: There is no identified facet joint subluxation or dislocation. There is no asymmetric widening of the disc spaces. There is no prominent prevertebral soft tissue swelling. There is grade 1 retrolisthesis of C6 on C7, measuring approximately 2 mm. There is no identified acute fracture of the cervical spine. There are multilevel disc, uncovertebral and facet degenerative changes of the cervical spine. There is chondrocalcinosis adjacent to the C1-C2 articulation. There is no identified bone erosion. There is ankylosis across the C5-C6 disc space. There are prominent endplate degenerative related changes at the C6-C7 disc space. There is a posterior disc osteophyte complex at this level and also noted at C2-C3 and C3-C4 as well as at C4-C5. CT is limited for assessment of disc pathology as well as non-bony causes of foraminal and spinal stenosis. There is an intradural and extramedullary ossified mass at the level of C4 to the right of midline and posteriorly located which measures approximately 7 x 6 x 7 mm in size. This is unchanged dating back to at least December 29, 2015. This may relate to a meningioma. Overall the cervical spine appearance is also similar to the comparison prior CT at that time. Limited visualized portions of the lung apices are grossly unremarkable. There are carotid vascular calcifications. IMPRESSION: 1. No identified interval acute abnormality of the cervical spine. 2. Advanced multilevel disc, facet and uncovertebral degenerative changes of the cervical spine. 3. Stable intradural extramedullary ossified mass at the level of C4 which is unchanged since at least December 29, 2015. This most likely relates to a benign meningioma. Dictated by: Dictated on workstation # [id number]
--- NOTE | 2017-02-19 22:34 | Diagnostic Imaging Report ---
EXAMINATION: Chest radiograph, portable AP view. DATE: February 19, 2017 at 2127 hours. INDICATION: 66-year-old male, fall. COMPARISON: January 02, 2017. FINDINGS: There is a left-sided cardiac assist device with leads. The leads appear intact. Stable overall appearance of the cardiomediastinal silhouette accounting for differences in technique. There is no identified pneumothorax. There is no large pleural effusion. Lung volumes are somewhat low with associated central bronchovascular crowding. There is no identified interval focal airspace consolidation. There is no identified significantly displaced rib fracture. IMPRESSION: Low lung volumes without definite acute cardiopulmonary abnormality. Dictated by: Dictated on workstation # [id number]
--- NOTE | 2017-02-19 22:38 | Diagnostic Imaging Report ---
EXAMINATION: Pelvis, single view. COMPARISON: CT chest, abdomen and pelvis, January 25, 2017. Pelvic radiographs, December 04, 2016. HISTORY: 66-year-old male, fall. Left hip pain. FINDINGS: There is an acetabular cup present. 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 There is roughly 2 mm of lucency surrounding the acetabular cup. 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 There are cerclage wires noted at the level of the left proximal femur. There is a redemonstrated comminuted fracture of the remaining portions of the left proximal humerus. There is prominent heterotopic bone formation subjacent to the left hip joint which does not completely bridge from the level of the left proximal femur to the pelvis. No significant interval change in appearance in these areas is seen since December 04, 2016 radiographs. There is also right-sided acetabular protrusio. There is no right acetabular cup. There is absence of the right femoral head and neck. There are cerclage wires at the level of the right proximal femoral diaphysis. There is heterotopic bone formation subjacent to the right hip. The right proximal femur does project abnormal superior and lateral to its expected location. The overall radiographic appearance in these areas is also unchanged since December 04, 2016. The bones do appear demineralized. There is no abnormal widening of the sacroiliac joints or pubic symphysis. IMPRESSION: Chronic appearing osseous abnormalities, as described above, without identified significant interval change since December 04, 2016. Dictated by: Dictated on workstation # [id number]
--- NOTE | 2017-02-19 22:39 | Diagnostic Imaging Report ---
EXAMINATION: Left hip, 2 views. COMPARISON: Radiographs of the pelvis, December 04, 2016. HISTORY: 66-year-old male, fall. Left hip pain. FINDINGS: There is a left acetabular cup with 2 mm surrounding lucency. 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 There is a redemonstrated fracture deformity of the left proximal femur with cerclage wires noted. 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 There is prominent heterotopic bone formation adjacent to the lateral aspect of the hip which does not completely bridge from the level of the left proximal femur to the pelvis. The bones do appear demineralized. There is no identified interval acute fracture or significant change in appearance since the comparison exam. IMPRESSION: 1. No interval acute bony abnormality in the region of the left hip identified. 2. Chronic osseous abnormalities, as above. Dictated by: Dictated on workstation # [id number]
[2017-02-19 23:21] VITALS: BP 119/59
[2017-02-19] MEDS ORDERED: D5 1/2 NS 1000 ML IV SOLUTION 1,000 ML IV ONE (23:24)
--- NOTE | 2017-02-19 23:25 | ED General ---
General Chief Complaint: Trauma-Non Activation Stated Complaint: S/P FALL,ALTERED MENTAL STATUS,NARCOTIC OVERDOSE Nursing Triage Note: pt arrived via ems to ct then to ed room 08. ems found pt lying on floor, unsure of how long he was there. pt is confused and disorientated. minimal response when questioned. Nursing Sepsis Screen: No Definite Risk Source of Information: EMS, Old Records (ALL PMH IS FROM OLD RECORDS. PT IS NOT TALKING AND IS ESSENTIALLY OBTUNDED AT THIS TIME) Exam Limitations: Other (PT UNABLE TO GIVE ANY INFORMATION HE IS ESSENTIALLY UNRESPONSIVE AT THIS TIME. NO FAMILY CAME TO ER AT ANY TIME DURING PT'S STAY) History of Present Illness Time Seen by Provider: 20:20 Initial Comments PT ARRIVES VIA EMS FROM HOME PT LIVES ALONE, AND IS WHEELCHAIR BOUND HE HAS HAD FEMORAL HEADS REMOVED AFTER MULTIPLE FAILED SURGERIES TO HIPS PT WAS FOUND ON THE FLOOR BY HIS FAMILY AT APPROXIMATELY 1900 AND WAS CONFUSED/ UNRESPONSIVE--NO ONE HAD ANY IDEA HOW LONG HE HAD BEEN THERE, PER EMS. AND IS UNKNOWN WHEN PT'S LAST KNOWN WELL TIME WAS PER EMS, FAMILY PICKED HIM UP FROM THE FLOOR AND HE GOT BACK INTO HIS WHEELCHAIR HIMSELF. EMS REPORT THAT ON THEIR ARRIVAL AT THE SCENE, PT WAS ABLE TO TRANSFER FROM HIS POWER WHEELCHAIR TO EMS COT ON HIS OWN AND WAS TALKING A LITTLE TO THEM,BUT WAS CONFUSED. THEY REPORT THAT ENROUTE, PT HAS BECOME MORE SEDATE PT TAKES MORPHINE ER --TOTAL OF 500 MG DAILY--EMS BRINGS IN A BOTTLE OF PILLS-- FILLED ON 02/09/17 FOR #150 --ONLY 68 PILLS ARE LEFT IN BOTTLE --LEAVES 32 UNACCOUNTED FOR PT HAS OVERDOSED ON BENZODIAZEPINES AND NARCOTICS MULTIPLE TIMES IN THE PAST PT IS ESSENTIALLY OBTUNDED ON ARRIVAL TO ER AND TAKEN STRAIGHT TO CT SCAN PT HAS A LARGE HEMATOMA TO LEFT FOREHEAD ACCUCHECK 127 PER EMS Location Injury Occurred: home PCP; DR. LO Allergies and Home Medications Allergies Coded Allergies: codeine (Verified Allergy, Mild, HIVES...TAKES OXYCODONE & MS CONTIN AT HOME, 07/29/07) streptokinase (Verified Allergy, Unknown, 07/29/07) Home Medications Alprazolam 1 Mg Tablet, 1 MG PO TID PRN for ANXIETY, (Reported) Morphine Sulfate 100 Mg Tablet.er, 200 MG PO BID, (Reported) TAKES 2 (100 MG) TABLETS TWICE DAILY IN CONJUNCTION WITH 1 TAB @ 1200 Morphine Sulfate 100 Mg Tablet.er, 100 MG PO DAILY@1200, (Reported) Oxycodone HCl/Acetaminophen 1 Each Tablet, 1 TAB PO QID PRN for MODERATE PAIN, ( Reported) Polyethylene Glycol 3350 17 Gm Powd.pack, 17 GM PO DAILY, (Reported) Zolpidem Tartrate 10 Mg Tablet, 10 MG PO HS PRN for SLEEP, (Reported) Constitutional: other (UNABLE TO OBTAIN) Past Iwazabi-Cmjugi-Khkaux Hx Patient Social History Alcohol Use: Regular Use Recreational Drug Use: Yes Smoking Status: Current Everyday Smoker Type Used: Cigarettes 2nd Hand Smoke Exposure: Yes Recent Foreign Travel: No Contact w/Someone Who Travel: No Recent Infectious Disease Expo: No Recent Hopitalizations: No Immunizations Up To Date Tetanus Booster (TDap): More than 5yrs PED Vaccines UTD: No Date of Pneumonia Vaccine: Nov 08, 2012 Date of Influenza Vaccine: Jul 26, 2016 Seasonal Allergies Seasonal Allergies: No Surgeries HX Surgeries: Yes (22 HIP SURGERIES) Surgeries: Abdominal, Appendectomy, Cardiac, Defibrillator, Joint Replacement, Orthopedic, Pacemaker Respiratory Hx Respiratory Disorders: Yes (PT INTUBATED IN PAST DUE TO OVERDOSES/ETOH ) Respiratory Disorders: COPD Cardiovascular Hx Cardiac Disorders: Yes (PACEMAKER, CARDIAC ARREST, SELF - REPORTED SD X 8) Cardiac Disorders: Chronic Edema/Swelling, Coronary Artery Disease, Heart Attack, Hypertension, Irregular Heartbeat Neurological Hx Neurological Disorders: No Reproductive System Hx Reproductive Disorders: No Sexually Transmitted Disease: No Genitourinary Hx Genitourinary Disorders: Yes (patient performs self straight catheters) Genitourinary Disorders: Neurogenic Bladder Gastrointestinal Hx Gastrointestinal Disorders: Yes Gastrointestinal Disorders: Abdominal Hernia Musculoskeletal Hx Musculoskeletal Disorders: Yes Musculoskeletal Disorders: Arthritis, Chronic Back Pain, Fractures Endocrine Hx Endocrine Disorders: Yes (OBESITY) Endocrine Disorders: Diabetes, Insulin dep HEENT HX ENT Disorders: Yes HEENT Disorders: Dysphagia Loss of Vision: Denies Hearing Impairment: Hard of Hearing Cancer Hx Cancer: No Psychosocial Hx Psychiatric Problems: Yes (ALCOHOL/POLYSUBSTANCE ABUSE/OVERDOSES-INTUBATED 2012, INCARCERATIONS) Behavioral Health Disorders: Suicide Attempts, Depression Integumentary HX Skin/Integumentary Disorder: No Blood Transfusions Hx Blood Disorders: No Family Medical History Significant Family History: No Pertinent Family Hx Family Medial History: Physical Exam Vital Signs Vital Sign - Last 12Hours 02/19/17 02/19/17 20:31 20:53 Temp 98.1 Pulse 80 Resp 12 B/P (MAP) 114/76 (89) Pulse Ox 97 O2 Delivery Room Air O2 Flow Rate 2.00 FiO2 98 Capillary Refill : Less Than 3 Seconds General Appearance: Other (PT OBTUNDED--ROUSES SOMEWHAT TO PAINFUL STIMULI. BUT DOES NOT OPEN EYES, TALK OR FOLLOW ANY COMMANDS ON ARRIVAL. PT REEKS OF CIGARETTES) HEENT: Other (PUPILS PINPOINT /EQUAL. DOES SQUEEZE EYES TIGHT WHEN TRYING TO EXAMINE THEM WITH OPHTHALMOSCOPE. PT HAS LARGE HEMATOMA AND MINOR ABRASION TO LEFT FOREHEAD/BROW AREA. ) Neck: Other (UNABLE TO DETERMINE IF PT HAS ANY NECK PAIN,BUT EFFORTS TO PLACE C -COLLAR BY EMS AND ER WERE UNSUCCESSFUL. NO STEP-OFF'S OR CREPITANCE) Respiratory: No Accessory Muscle Use, No Respiratory Distress, Rales (FAINT RALES IN BASES) Cardiovascular: Regular Rate, Rhythm Gastrointestinal: Soft Extremity: Pedal Edema (1+ BILATERALLY) Neurologic/Psychiatric: No Facial Droop, Other (OBTUNDED) Skin: Normal Color, Warm/Dry Progress/Results/Core Measures Results/Orders Lab Results Laboratory Tests Test 02/19/17 20:53 02/20/17 03:05 Range/Units White Blood Count 10.1 4.3-11.0 10^3/uL Red Blood Count 4.65 4.35-5.85 10^6/uL Hemoglobin 13.6 13.3-17.7 G/DL Hematocrit 41 40-54 % Mean Corpuscular Volume 88 80-99 FL Mean Corpuscular Hemoglobin 29 25-34 PG Mean Corpuscular Hemoglobin Concent 33 32-36 G/DL Red Cell Distribution Width 13.9 10.0-14.5 % Platelet Count 291 130-400 10^3/uL Mean Platelet Volume 10.9 H 7.4-10.4 FL Neutrophils (%) (Auto) 65 42-75 % Lymphocytes (%) (Auto) 22 12-44 % Monocytes (%) (Auto) 10 0-12 % Eosinophils (%) (Auto) 2 0-10 % Basophils (%) (Auto) 1 0-10 % Neutrophils # (Auto) 6.5 1.8-7.8 X 10^3 Lymphocytes # (Auto) 2.2 1.0-4.0 X 10^3 Monocytes # (Auto) 1.0 0.0-1.0 X 10^3 Eosinophils # (Auto) 0.2 0.0-0.3 10^3/uL Basophils # (Auto) 0.1 0.0-0.1 10^3/uL Prothrombin Time 13.2 12.2-14.7 SEC INR Comment 1.0 0.8-1.4 Activated Partial Thromboplast Time 29 24-35 SEC Urine Color YELLOW Urine Clarity SLIGHTLY CLOUDY Urine pH 5 5-9 Urine Specific [place] 1.020 1.016-1.022 Urine Protein NEGATIVE NEGATIVE Urine Glucose (UA) NEGATIVE NEGATIVE Urine Ketones NEGATIVE NEGATIVE Urine Nitrite NEGATIVE NEGATIVE Urine Bilirubin NEGATIVE NEGATIVE Urine Urobilinogen NORMAL NORMAL MG/DL Urine Leukocyte Esterase NEGATIVE NEGATIVE Urine RBC (Auto) NEGATIVE NEGATIVE Urine RBC NONE /HPF Urine WBC RARE /HPF Urine Squamous Epithelial Cells 2-5 /HPF Urine Crystals NONE /LPF Urine Bacteria NEGATIVE /HPF Urine Casts NONE /LPF Urine Mucus NEGATIVE /LPF Urine Culture Indicated NO Sodium Level 138 135-145 MMOL/L Potassium Level 4.4 3.6-5.0 MMOL/L Chloride Level 106 98-107 MMOL/L Carbon Dioxide Level 21 21-32 MMOL/L Anion Gap 11 5-14 MMOL/L Blood Urea Nitrogen 15 7-18 MG/DL Creatinine 0.87 0.60-1.30 MG/DL Estimat Glomerular Filtration Rate > 60 BUN/Creatinine Ratio 17 Glucose Level 91 70-105 MG/DL Calcium Level 9.2 8.5-10.1 MG/DL Magnesium Level 1.9 1.8-2.4 MG/DL Total Bilirubin 0.6 0.1-1.0 MG/DL Aspartate Amino Transf (AST/SGOT) 19 5-34 U/L Alanine Aminotransferase (ALT/SGPT) 8 0-55 U/L Alkaline Phosphatase 85 40-136 U/L Myoglobin 180.1 H 10.0-92.0 NG/ML Troponin I < 0.30 < 0.30 <0.30 NG/ML Total Protein 6.5 6.4-8.2 G/DL Albumin 3.5 3.2-4.5 G/DL Urine Opiates Screen POSITIVE H NEGATIVE Urine Oxycodone Screen NEGATIVE NEGATIVE Urine Methadone Screen NEGATIVE NEGATIVE Urine Propoxyphene Screen NEGATIVE NEGATIVE Urine Barbiturates Screen NEGATIVE NEGATIVE Ur Tricyclic Antidepressants Screen NEGATIVE NEGATIVE Urine Phencyclidine Screen NEGATIVE NEGATIVE Urine Amphetamines Screen NEGATIVE NEGATIVE Urine Methamphetamines Screen NEGATIVE NEGATIVE Urine Benzodiazepines Screen POSITIVE H NEGATIVE Urine Cocaine Screen NEGATIVE NEGATIVE Urine Cannabinoids Screen NEGATIVE NEGATIVE Serum Alcohol < 10 <10 MG/DL My Orders Orders - WILFRED CAMPBELL Brittanie DO Ua Culture If Indicated (02/19/17 20:25) Cbc With Automated Diff (02/19/17 20:25) Comprehensive Metabolic Panel (02/19/17 20:25) Protime With Inr (02/19/17 20:25) Partial Thromboplastin Time (02/19/17 20:25) Magnesium (02/19/17 20:25) Cardiac Profile 1 (02/19/17 20:25) Myoglobin Serum (02/19/17 20:25) Alcohol (02/19/17 20:25) Drug Screen Stat (Urine) (02/19/17 20:25) O2 (02/19/17 20:25) Ekg Tracing (02/19/17 20:25) Chest 1 View, Ap/Pa Only (02/19/17 20:25) Cardiac Profile 2 (02/20/17 02:25) Ct Head Wo (02/19/17 20:25) Monitor-Rhythm Ecg Trace Only (02/19/17 20:25) Pelvis (02/19/17 20:29) Hip, Left, 2 Views (02/19/17 20:29) Ct Maxillofacial Wo (02/19/17 20:34) Ct Cervical Spine Wo (02/19/17 20:34) Naloxone Injection (Narcan Injection) (02/19/17 21:30) Fermin Cath Insertion (02/19/17 22:02) Saline Lock/Iv-Start (02/19/17 22:02) Medications Given in ED Current Medications Medications Dose Ordered Sig/Carl Route Start Time Stop Time Status Last Admin Dose Admin Naloxone HCl 1 mg ONCE ONCE IV 02/19/17 21:30 02/19/17 21:31 DC 02/19/17 21:41 1 MG Vital Signs/I&O Vital Sign - Last 12Hours 02/19/17 02/19/17 02/19/17 02/19/17 20:31 20:31 20:53 23:00 Temp 98.1 Pulse 80 71 70 Resp 12 16 12 B/P (MAP) 114/76 (89) 131/71 170/91 (117) Pulse Ox 97 91 98 97 O2 Delivery Room Air Room Air Nasal Cannula Nasal Cannula O2 Flow Rate 2.00 FiO2 98 02/19/17 02/19/17 02/19/17 02/19/17 23:08 23:21 23:30 23:37 Temp 97.2 Pulse 70 66 70 85 Resp 12 14 10 B/P (MAP) 119/59 105/81 Pulse Ox 97 97 95 O2 Delivery Nasal Cannula Nasal Cannula O2 Flow Rate 2.00 2.00 2.00 02/19/17 02/20/17 02/20/17 02/20/17 23:45 00:00 00:00 01:00 Pulse 63 61 60 Resp 15 14 12 B/P (MAP) 103/57 120/67 Pulse Ox 95 95 96 98 O2 Delivery Nasal Cannula Nasal Cannula Nasal Cannula O2 Flow Rate 2.00 2.00 2.00 2.00 02/20/17 02/20/17 02/20/17 02/20/17 01:00 02:00 03:00 04:00 Pulse 60 61 60 Resp 11 11 B/P (MAP) 109/59 106/60 Pulse Ox 97 97 96 O2 Delivery Nasal Cannula Nasal Cannula O2 Flow Rate 2.00 2.00 Blood Pressure Mean: 89 Progress Note : Progress Note PT DID HAVE IMPROVEMENT IN MENTATION WITH NARCAN 1 MG--PT OPENED EYES, MOVING AROUND, PULLING AT CATHETER AND IV, STILL NOT ANSWERING QUESTIONS OR FOLLOWING COMMANDS, AND ONLY MAKES GUTTERAL NOISES. PT IS MOVING ALL EXTREMITIES EQUALLY AND NO FACIAL DROOP NOTED NO DETERIORATION IN PT'S CONDITION DURING ER STAY NO FAMILY CAME TO ER OR CALLED TO CHECK ON PT DURING ER STAY ECG Initial ECG Impression Time: 20:35 Initial ECG Rate: 75 Initial ECG Comparisson: Unchanged (ATRIAL PACED) Diagnostic Imaging Comments CT HEAD--SOFT TISSUE SWELLING LEFT FRONTAL AREA, OTHERWISE NO ACUTE PROCESS-- PER RADIOLOGIST REPORT @ 2101 CT MAXILLOFACIALS AND CERVICAL SPINE--NO ACUTE PROCESS, CHRONIC DEGENERATIVE CHANGES--PER RADIOLOGIST REPORT @ 2236 XRAYS OF PELVIS /HIP--NO ACUTE PROCESS--CHRONIC CHANGES CXR--NO ACUTE PROCESS ALL PER RADIOLOGIST REPORTS @ 2250 Reviewed: Reviewed by Me Departure Communication Progress Notes 2200--SPOKE WITH DR. BHANDARI, ACCEPTS PT FOR ADMIT Impression Impression: Primary Impression: Status post fall Additional Impressions: HEAD INJURY WITH UNKNOWN LOSS OF CONSCIOUSNESS Altered mental status Narcotic overdose POSSIBLE BENZODIAZEPINE OVERDOSE Disposition: ADMITTED INPATIENT Condition: Stable Decision to Admit Reason: Admit from ER (General) Decision to Admit/Date: Feb 19, 2017 Time/Decision to Admit Time: 22:05 Departure-Patient Inst. Referrals: NABILA LO MD (PCP/Family) Primary Care Physician WILFRED CAMPBELL DO Feb 19, 2017 23:24
[2017-02-19 23:30] VITALS: BP 105/81
[2017-02-20] VITALS (14 sets, daily range): BP systolic 84–160; BP diastolic 45–92
[2017-02-20] MEDS ORDERED: NS IV 1000 ML 1,000 ML ONE (05:25)
[2017-02-20] MEDS ORDERED: D5 1/2 NS 1000 ML IV SOLUTION 1,000 ML IV SCH (07:15)
[2017-02-20] MEDS ORDERED: NALOXONE 0.4 MG/ML 1 ML (NARCAN) VIAL IV PRN (07:15)
[2017-02-20] MEDS ORDERED: CATHETER FLUSH 10 ML SYR IV PRN (07:15)
[2017-02-20] MEDS ORDERED: ENOXAPARIN 100 MG/1 ML (LOVENOX) SYR SC NR (07:30)
[2017-02-20] MEDS ORDERED: CYCL10TA9 PO (09:23)
[2017-02-20] MEDS ORDERED: NITR0.4T SL (09:23)
[2017-02-20] MEDS ORDERED: MORP100T37 PO ×2 (09:25)
[2017-02-20] MEDS ORDERED: meTOproloL SUCCINATE 50 MG (TOPROL XL) TAB PO NR (09:30)
--- NOTE | 2017-02-20 09:33 | Consultation-Cardiology ---
HPI-Cardiology Cardiology Consultation: Date of Consultation 02/20/17 Date of Admission 02/19/17 Attending Physician Kirsten Sanz DO Admitting Physician Jonathan Beasley MD Consulting Physician JILLIAN LOPEZ MD, FACP, FACC, FSCAI, CCDS HPI: Chief Complaint: Reason for consultation: PAF 66 yo man admitted with mental status changes and resp difficulty on 02/19/17. Has exhibited PAF with a somewhat rapid vent response in the hosp. Currently feels well and denies symptoms. Denies fever or chills. 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 Denies leg swelling Review of Systems-Cardiology Review of Systems Constitutional: No chills, No fever, No weight loss, No weight gain Eyes: No vision change Ears/Nose/Throat: No ear discharge, No nasal drainage, No recent hearing loss Respiratory: As described under HPI Cardiovascular: As described under HPI Gastrointestinal: No constipation, No diarrhea, No nausea, No vomiting Genitourinary: No dysuria, No hematuria, No urine frequency changes Musculoskeletal: back pain (chronic), joint pain (chronic) Skin: No rash, No ulcerations Psychiatric/Neurological: other (bilat leg weakness due to chronic disuse), No seizure, No syncope Hematologic: No bleeding abnormalities PTQ-[id number]-Qrmgfx Hx Patient Social History Alcohol Use: Regular Use Recreational Drug Use: Yes Smoking Status: Current Everyday Smoker Type Used: Cigarettes 2nd Hand Smoke Exposure: Yes Recent Foreign Travel: No Recent Infectious Disease Expo: No Physical Abuse Screen: No Sexual Abuse: No Immunizations Up To Date Tetanus Booster (TDap): More than 5yrs Date of Pneumonia Vaccine: Nov 08, 2012 Date of Influenza Vaccine: Jul 26, 2016 Past Medical History PMH As described under Assessment. Family Medical History Family Medical History: He reports a younger and older brother, both in their 60's, with CAD. Family History: Allergies and Home Medications Allergies Coded Allergies: codeine (Verified Allergy, Mild, HIVES...TAKES OXYCODONE & MS CONTIN AT HOME, 07/29/07) streptokinase (Verified Allergy, Unknown, 07/29/07) Home Medications Alprazolam 1 Mg Tablet, 1 MG PO TID PRN for ANXIETY, (Reported) Cyclobenzaprine HCl 10 Mg Tablet, 10 MG PO TID PRN for MUSCLE SPASMS, (Reported) Morphine Sulfate 100 Mg Tablet.er, 200 MG PO BID, (Reported) TAKES 2 (100MG) TABLETS Morphine Sulfate 100 Mg Tablet.er, 100 MG PO 1200, (Reported) Nitroglycerin 0.4 Mg Tab.subl, 0.4 MG SL UD PRN for CHEST PAIN, (Reported) Polyethylene Glycol 3350 17 Gm Powd.pack, 17 GM PO DAILY PRN for CONSTIPATION- 2ND LINE, (Reported) Zolpidem Tartrate 10 Mg Tablet, 10 MG PO HS PRN for SLEEP, (Reported) Physical Exam-Cardiology Physical Exam Vital Signs/I&O Vital Sign - Last 12Hours 02/19/17 02/19/17 02/19/17 02/19/17 23:00 23:08 23:21 23:30 Temp 97.2 Pulse 70 70 66 70 Resp 12 12 14 10 B/P (MAP) 170/91 (117) 119/59 105/81 Pulse Ox 97 97 97 95 O2 Delivery Nasal Cannula Nasal Cannula Nasal Cannula O2 Flow Rate 2.00 2.00 2.00 02/19/17 02/19/17 02/20/17 02/20/17 23:37 23:45 00:00 00:00 Pulse 85 63 61 Resp 15 14 B/P (MAP) 103/57 Pulse Ox 95 95 96 O2 Delivery Nasal Cannula Nasal Cannula O2 Flow Rate 2.00 2.00 2.00 02/20/17 02/20/17 02/20/17 02/20/17 01:00 01:00 02:00 03:00 Pulse 60 60 61 60 Resp 12 11 11 B/P (MAP) 120/67 109/59 106/60 Pulse Ox 98 97 97 O2 Delivery Nasal Cannula Nasal Cannula Nasal Cannula O2 Flow Rate 2.00 2.00 2.00 02/20/17 02/20/17 02/20/17 02/20/17 04:00 04:00 05:00 06:00 Temp 97.1 Pulse 60 114 121 Resp 8 13 9 B/P (MAP) 115/61 84/61 101/45 Pulse Ox 96 97 93 98 O2 Delivery Room Air Room Air Room Air 02/20/17 02/20/17 02/20/17 02/20/17 07:00 08:00 08:00 08:07 Temp 97.2 Pulse 105 111 Resp 18 B/P (MAP) 123/86 Pulse Ox 96 99 O2 Delivery Room Air O2 Flow Rate 2.00 2.00 Capillary Refill : Less Than 3 Seconds Constitutional: AAO x 3, well-developed, other HEENT: hearing is well preserved, No xanthelasmas are seen Neck: carotid pulses are 2 + bilaterally, with good upstrokes Respiratory: No accessory muscle use, other (Good bilat air entry) Cardiovascular: regular rate-rhythm, S1 and S2, systolic murmur (faint ISAAC at card base) Gastrointestinal: No tender, No guarding, No rebound, audible bowel sounds Extremities: No pedal edema, No clubbing, No cyanosis Neurologic/Psychiatric: other (chronic mod bilat leg weakness), grossly intact Skin: No rash on exposed areas, No ulcerations on exposed areas Data Review Labs Laboratory Tests 02/19/17 20:53: White Blood Count 10.1, Red Blood Count 4.65, Hemoglobin 13.6, Hematocrit 41, Mean Corpuscular Volume 88, Mean Corpuscular Hemoglobin 29, Mean Corpuscular Hemoglobin Concent 33, Red Cell Distribution Width 13.9, Platelet Count 291, Mean Platelet Volume 10.9H, Neutrophils (%) (Auto) 65, Lymphocytes (%) (Auto) 22 , Monocytes (%) (Auto) 10, Eosinophils (%) (Auto) 2, Basophils (%) (Auto) 1, Neutrophils # (Auto) 6.5, Lymphocytes # (Auto) 2.2, Monocytes # (Auto) 1.0, Eosinophils # (Auto) 0.2, Basophils # (Auto) 0.1, Prothrombin Time 13.2, INR Comment 1.0, Activated Partial Thromboplast Time 29, Urine Color YELLOW, Urine Clarity SLIGHTLY CLOUDY, Urine pH 5, Urine Specific [place] 1.020, Urine Protein NEGATIVE, Urine Glucose (UA) NEGATIVE, Urine Ketones NEGATIVE, Urine Nitrite NEGATIVE, Urine Bilirubin NEGATIVE, Urine Urobilinogen NORMAL, Urine Leukocyte Esterase NEGATIVE, Urine RBC (Auto) NEGATIVE, Urine RBC NONE, Urine WBC RARE, Urine Squamous Epithelial Cells 2-5, Urine Crystals NONE, Urine Bacteria NEGATIVE, Urine Casts NONE, Urine Mucus NEGATIVE, Urine Culture Indicated NO, Sodium Level 138, Potassium Level 4.4, Chloride Level 106, Carbon Dioxide Level 21, Anion Gap 11, Blood Urea Nitrogen 15, Creatinine 0.87, Estimat Glomerular Filtration Rate > 60, BUN/Creatinine Ratio 17, Glucose Level 91, Calcium Level 9.2, Magnesium Level 1.9, Total Bilirubin 0.6, Aspartate Amino Transf (AST/SGOT) 19, Alanine Aminotransferase (ALT/SGPT) 8, Alkaline Phosphatase 85, Myoglobin 180.1H, Troponin I < 0.30, Total Protein 6.5, Albumin 3.5, Urine Opiates Screen POSITIVEH, Urine Oxycodone Screen NEGATIVE, Urine Methadone Screen NEGATIVE, Urine Propoxyphene Screen NEGATIVE, Urine Barbiturates Screen NEGATIVE, Ur Tricyclic Antidepressants Screen NEGATIVE, Urine Phencyclidine Screen NEGATIVE, Urine Amphetamines Screen NEGATIVE, Urine Methamphetamines Screen NEGATIVE, Urine Benzodiazepines Screen POSITIVEH, Urine Cocaine Screen NEGATIVE, Urine Cannabinoids Screen NEGATIVE, Serum Alcohol < 10 02/20/17 03:05: Troponin I < 0.30 Laboratory Tests 02/19/17 20:53 A/P-Cardiology Assessment/Admission Diagnosis Mental status change due to narcotic overuse SSS: PAF demonstrated during this hosp Pacemaker implantation by Dr. Bennett 2011 d/t bradycardia and documented pauses of up to 3.2 seconds - has been non-compliant with f/u H/o chest pain syndrome, currently stable. Last MPI of March 2016 showed no evidence of any significant myocardial ischemia or infarction on this study. Normal regional wall motion. Normal global left ventricular systolic function with a calculated ejection fraction of 78%. Normal global left ventricular systolic function with an ejection fraction of approximately 60%. Mild mitral and tricuspid regurgitation. No evidence of significant valvular stenosis. Per echocardiogram of March 2016 Cardiac cath of 03/[address] Ascencio showed mild CAD, lesion to the mid Cx of approx 50%. LVEF 60%. Normal LVEDP H/o avascular necrosis of the hips Reported h/o hip replacements Polysubstance use for pain control - managed by his PCP Dr. Beasley GERD COPD Prior h/o tobaccoism HTN Anxiety and Depression Discussion and Recomendations * Complex management due to multiple comorbidities * Add beta-[place] for vent rate control * Add apixaban for stroke prophylaxis * Interrogate pacemaker * I have strongly advised med compliance and outpatient f/u * Ok to discharge from card standpoint if pacemaker functioning normally Clinical Quality Measures DVT/VTE Risk/Contraindication: Risk Factor Score Per Nursin RFS Level Per Nursing on Admit: 4+=Very High JILLIAN LOPEZ MD FACP FACC CCDS Feb 20, 2017 09:33
--- NOTE | 2017-02-20 09:47 | Short Stay Summary-Hospitalist ---
HPI History of Present Illness: HPI/Chief Complaint CC: Unresponsive due to narcotic overdose HPI: This is 66-year-old white male clinic patient of Dr. Beasley that he sustained on 500 mg of morphine daily due to chronic hip pain the presents to the emergency room after found down at home by his family at 7 p.m. unknown last time he was up and performing activities at home he was found to have narcotic overdose and a bruise on his left for head consistent with a fall. He was assessed in the ER found to have no cervical spine or brain injury service placed in the ICU after Narcan did resolve some of his symptoms and he did not require any type intubation for respiratory failure. At 5 o'clock this morning I was called due to atrial fibrillation with rapid ventricular response Dr. Houser was consulted and conservatively managed. This patient's overall prognosis is so poor and his history of alcoholism and narcotic overdoses and just overall severe debility is in such decline at this current time and he refuses to be admitted to a facility so I have intention of discharging him home as he is requesting with close monitoring by the family but this patient is a hospice candidate in my opinion palliative care is indicated. We'll try to support him in any way possible to return home as soon as possible. Source: patient, RN/MD Exam Limitations: clinical condition Date Seen 02/20/17 Attending Physician Kirsten Bhandari Douglas K MD Referring Physician Date of Admission Feb 19, 2017 at 22:00 Home Medications & Allergies Home Medications Reviewed patient Home Medication Reconciliation Form Allergies Allergies Coded Allergies codeine (Verified Allergy, Mild, HIVES...TAKES OXYCODONE & MS CONTIN AT HOME, 07/29/07) streptokinase (Verified Allergy, Unknown, 07/29/07) Past Cnhyais-Dqvmyo-Onvuuh Hx Patient Social History Marrital Status: single Employed/Student: unemployed Alcohol Use: Regular Use Recreational Drug Use: Yes Smoking Status: Current Everyday Smoker Type Used: Cigarettes 2nd Hand Smoke Exposure: Yes Physical Abuse Screen: No Sexual Abuse: No Recent Foreign Travel: No Contact w/other who traveled: No Recent Hopitalizations: No Recent Infectious Disease Expo: No Immunizations Up To Date Tetanus Booster (TDap): More than 5yrs Date of Pneumonia Vaccine: Nov 08, 2012 Date of Influenza Vaccine: Jul 26, 2016 Seasonal Allergies Seasonal Allergies: No Surgeries HX Surgeries: Yes (22 HIP SURGERIES) Surgeries: Abdominal, Appendectomy, Cardiac, Defibrillator, Joint Replacement, Orthopedic, Pacemaker Respiratory Hx Respiratory Disorders: Yes (PT INTUBATED IN PAST DUE TO OVERDOSES/ETOH ) Respiratory Disorders: COPD Cardiovascular Hx Cardiovascular Disorders: Yes (PACEMAKER, CARDIAC ARREST, SELF - REPORTED [place] X 8) Cardiac Disorders: Chronic Edema/Swelling, Coronary Artery Disease, Heart Attack, Hypertension, Irregular Heartbeat Neurological Hx Neurological Disorders: No Reproductive System Hx Reproductive Disorders: No Sexually Transmitted Disease: No Genitourinary Hx Genitourinary Disorders: Yes (patient performs self straight catheters) Genitourinary Disorders: Neurogenic Bladder Gastrointestinal Hx Gastrointestinal Disorders: Yes Gastrointestinal Disorders: Abdominal Hernia Musculoskeletal Hx Musculoskeletal Disorders: Yes Musculoskeletal Disorders: Arthritis, Chronic Back Pain, Fractures Endocrine Hx Endocrine Disorders: Yes (OBESITY) Endocrine Disorders: Diabetes, Insulin dep HEENT HX ENT Disorders: Yes HEENT Disorders: Dysphagia Loss of Vision: Denies Hearing Impairment: Hard of Hearing Cancer Hx Cancer: No Psychosocial Hx Psychiatric Problems: Yes (ALCOHOL/POLYSUBSTANCE ABUSE/OVERDOSES-INTUBATED 2012, INCARCERATIONS) Behavioral Health Disorders: Suicide Attempts, Depression Integumentary HX Skin/Integumentary Disorder: No Blood Transfusions Hx Blood Disorders: No Family Medical History Significant Family History: No Pertinent Family Hx Family Hx: Review of Systems Constitutional: see HPI EENTM: no symptoms reported Respiratory: no symptoms reported Cardiovascular: no symptoms reported Gastrointestinal: no symptoms reported Genitourinary: no symptoms reported Musculoskeletal: joint pain Skin: no symptoms reported Psychiatric/Neurological: Depressed All Other Systems Reviewed Negative Unless Noted: Yes Physical Exam Physical Exam Vital Signs Vital Sign - Last 12Hours 02/19/17 02/19/17 20:31 20:53 Temp 98.1 Pulse 80 Resp 12 B/P (MAP) 114/76 (89) Pulse Ox 97 O2 Delivery Room Air O2 Flow Rate 2.00 FiO2 98 Capillary Refill : Less Than 3 Seconds General Appearance: No Apparent Distress, WD/WN, Chronically ill Eyes: Bilateral Eye Normal Inspection, Bilateral Eye PERRL HEENT: PERRL/EOMI, Normal ENT Inspection, Pharynx Normal Neck: Full Range of Motion, Normal Inspection, Non Tender, Supple, Carotid Bruit Respiratory: Chest Non Tender, Lungs Clear, Normal Breath Sounds, No Accessory Muscle Use, No Respiratory Distress Cardiovascular: Regular Rate, Rhythm, No Edema, No Gallop, No JVD, No Murmur, Normal Peripheral Pulses Gastrointestinal: Normal Bowel Sounds, No Organomegaly, No Pulsatile Mass, Non Tender, Soft Back: Normal Inspection, No CVA Tenderness, No Vertebral Tenderness Extremity: Normal Capillary Refill, Normal Inspection, Normal Range of Motion ( can't move legs due to hip pain), Non Tender, No Calf Tenderness, No Pedal Edema Neurologic/Psychiatric: Alert, Oriented x3, No Motor/Sensory Deficits, Normal Mood/Affect Skin: Normal Color, Warm/Dry Lymphatic: No Adenopathy Results Results/Procedures Lab Laboratory Tests 02/19/17 20:53 Short Stay Diagnosis Discharge Diagnosis-Short Stay Admission Diagnosis Assessment: Fall at home found down by family unresponsive due to narcotic overdose Severe chronic pain due to hip dysfunction Atrial fibrillation with rapid ventricular response requiring cardiology input Pacemaker placement permanent ETOH intoxication Pyelonephritis hx Smoker Final Discharge Diagnosis Assessment: Fall at home found down by family unresponsive due to narcotic overdose Severe chronic pain due to hip dysfunction Atrial fibrillation with rapid ventricular response requiring cardiology input Pacemaker placement permanent ETOH intoxication Pyelonephritis hx Smoker Conclusion Plan Plan: I appreciate cardiology input Pacemaker will be evaluated and if within normal limits will be discharged home as he is requesting There is no way for me to modify any type of factors here due to the overall severe debility in order to decrease recurrent readmissions Needs hospice care Clinical Quality Measures DVT/VTE Risk/Contraindication: Risk Factor Score Per Nursin RFS Level Per Nursing on Admit: 4+=Very High KIRSTEN BHANDARI DO Feb 20, 2017 09:47
[2017-02-20] MEDS ORDERED: POLYETHYLENE GLYCOL 17 GM (MIRALAX) PACK PO PRN (10:00)
[2017-02-20] MEDS ORDERED: ALPRAZolam 1 MG (XANAX) TAB PO PRN (10:00)
[2017-02-20] MEDS ORDERED: CYCLOBENZAPRINE 10 MG (FLEXERIL) TAB PO PRN (10:00)
[2017-02-20] MEDS ORDERED: NITROGLYCERIN SUBLINGUAL 0.4 MG TAB (NITROSTAT) SL PRN (10:00)
[2017-02-20] MEDS ORDERED: ZOLPIDEM 5 MG (AMBIEN) TAB PO PRN (10:15)
[2017-02-20] MEDS ORDERED: morphine ER 100 MG (MS CONTIN) TAB PO SCH ×2 (12:00→21:00)
[2017-02-20] MEDS ORDERED: APIX5TAB PO (13:39)
[2017-02-20] MEDS ORDERED: METO-352 PO (13:39)
[2017-02-20] MEDS ORDERED: APIXABAN 5 MG (ELIQUIS) TABLET PO SCH (21:00)
[2017-02-21] MEDS ORDERED: meTOproloL SUCCINATE 50 MG (TOPROL XL) TAB PO SCH (09:00)
== END 2017-02-20 14:10 | disposition home or self-care (01) | DRG 918 ==
LOC: EDUNIT# 20:24 → ER 20:25 → ICU 22:00
PROVIDERS: ADMIT Internal Medicine; ATTEND Internal Medicine
DX: T40.2X2A Poisoning by other opioids, intentional self-harm, initial encounter (principal); T42.4X2A Poisoning by benzodiazepines, intentional self-harm, initial encounter; F10.229 Alcohol dependence with intoxication, unspecified; R41.0 Disorientation, unspecified; S00.83XA Contusion of other part of head, initial encounter; I48.0 Paroxysmal atrial fibrillation; M25.851 Other specified joint disorders, right hip; M25.852 Other specified joint disorders, left hip; M25.551 Pain in right hip; M25.552 Pain in left hip; F17.210 Nicotine dependence, cigarettes, uncomplicated; I25.10 Atherosclerotic heart disease of native coronary artery without angina pectoris; I25.2 Old myocardial infarction; I10 Essential (primary) hypertension; N31.9 Neuromuscular dysfunction of bladder, unspecified; E11.9 Type 2 diabetes mellitus without complications; J44.9 Chronic obstructive pulmonary disease, unspecified; E66.9 Obesity, unspecified; F11.10 Opioid abuse, uncomplicated; F13.10 Sedative, hypnotic or anxiolytic abuse, uncomplicated; F41.9 Anxiety disorder, unspecified; F32.9 Major depressive disorder, single episode, unspecified; Z99.3 Dependence on wheelchair; Z79.4 Long term (current) use of insulin; Z68.30 Body mass index [BMI] 30.0-30.9, adult; Z95.810 Presence of automatic (implantable) cardiac defibrillator; Z91.19 Patient's noncompliance with other medical treatment and regimen; W19.XXXA Unspecified fall, initial encounter; Y92.009 Unspecified place in unspecified non-institutional (private) residence as the place of occurrence of the external cause; Y99.8 Other external cause status
CPT/HCPCS: 36415; 51702; 70450; 70486; 71010; 72125; 72170; 73502; 80053; 80306; 80320; 81000; 83735; 83874; 84484; 85025; 85610; 85730; 93005; 93041; 96374

== ENCOUNTER 2017-02-23 08:59 | Observation (INO) | payer MEDICARE, MEDICAID ==
[~2017-02-23] VITALS: Ht 172.7 cm; Wt 93.6 kg
[~2017-02-23 08:59] MED LIST changes: +APIX5TAB PO; +METO-352 PO
[2017-02-23] MEDS ORDERED: NS IV 1000 ML 1,000 ML IV ONE (09:09)
--- NOTE | 2017-02-23 09:35 | ED General ---
General Chief Complaint: Trauma-Non Activation Stated Complaint: MULTIPLE FALLS/RT LEG PAIN Source of Information: Patient Exam Limitations: Intoxication, Physical Impairments History of Present Illness Time Seen by Provider: 09:06 Initial Comments Here by EMS with report of fall this morning although story is challenging due to patient's drowsiness. He was previously admitted for narcotics overdose and fall last week. He has old wound to the left side of his head but there is question of new abrasion. EMS reports that the patient reported to them that he felt weak and sat down and denies injury. He also reports that he had to sit down because of his right leg pain. For this he takes a significant amount of morphine. He does admit to taking his morphine dosing this morning. Otherwise he is unable to answer questions due to drowsiness. Timing/Duration: 1 Hour Severity: Moderate, Severe Associated Systoms: No Nausea/Vomiting, No Shortness of Air, Weakness Allergies and Home Medications Allergies Coded Allergies: codeine (Verified Allergy, Mild, HIVES...TAKES OXYCODONE & MS CONTIN AT HOME, 07/29/07) streptokinase (Verified Allergy, Unknown, 07/29/07) Home Medications Alprazolam 1 Mg Tablet, 1 MG PO TID PRN for ANXIETY, (Reported) Apixaban 5 Mg Tablet, 5 MG PO BID for 30 Days, Ref 3 Prescribed by: ANALY CLARK on 02/20/17 1339 Cyclobenzaprine HCl 10 Mg Tablet, 10 MG PO TID PRN for MUSCLE SPASMS, (Reported) Metoprolol Succinate 50 Mg Tab.er.24h, 50 MG PO DAILY for 30 Days, Ref 3 Prescribed by: ANALY CLARK on 02/20/17 1339 Morphine Sulfate 100 Mg Tablet.er, 200 MG PO BID, (Reported) TAKES 2 (100MG) TABLETS Morphine Sulfate 100 Mg Tablet.er, 100 MG PO 1200, (Reported) Nitroglycerin 0.4 Mg Tab.subl, 0.4 MG SL UD PRN for CHEST PAIN, (Reported) Polyethylene Glycol 3350 17 Gm Powd.pack, 17 GM PO DAILY PRN for CONSTIPATION- 2ND LINE, (Reported) Zolpidem Tartrate 10 Mg Tablet, 10 MG PO HS PRN for SLEEP, (Reported) Constitutional: see HPI, No fever, weakness Musculoskeletal: see HPI, joint pain, muscle pain Skin: see HPI Psychiatric/Neurological: See HPI Other Unable to complete review of systems due to altered mental status. Past Jiitlgn-Ujbkdt-Zzxcbr Hx Patient Social History Alcohol Use: Past History Smoking Status: Current Everyday Smoker Type Used: Cigarettes 2nd Hand Smoke Exposure: Yes Recent Hopitalizations: No Immunizations Up To Date Tetanus Booster (TDap): More than 5yrs PED Vaccines UTD: No Date of Pneumonia Vaccine: Nov 08, 2012 Date of Influenza Vaccine: Jul 26, 2016 Seasonal Allergies Seasonal Allergies: No Surgeries HX Surgeries: Yes (22 HIP SURGERIES) Surgeries: Abdominal, Appendectomy, Cardiac, Defibrillator, Joint Replacement, Orthopedic, Pacemaker Respiratory Hx Respiratory Disorders: Yes (PT INTUBATED IN PAST DUE TO OVERDOSES/ETOH ) Respiratory Disorders: COPD Cardiovascular Hx Cardiac Disorders: Yes (PACEMAKER, CARDIAC ARREST, SELF - REPORTED [place] X 8) Cardiac Disorders: Chronic Edema/Swelling, Coronary Artery Disease, Heart Attack, Hypertension, Irregular Heartbeat Neurological Hx Neurological Disorders: No Reproductive System Hx Reproductive Disorders: No Sexually Transmitted Disease: No Genitourinary Hx Genitourinary Disorders: Yes (patient performs self straight catheters) Genitourinary Disorders: Neurogenic Bladder Gastrointestinal Hx Gastrointestinal Disorders: Yes Gastrointestinal Disorders: Abdominal Hernia Musculoskeletal Hx Musculoskeletal Disorders: Yes Musculoskeletal Disorders: Arthritis, Chronic Back Pain, Fractures Endocrine Hx Endocrine Disorders: Yes (OBESITY) Endocrine Disorders: Diabetes, Insulin dep HEENT HX ENT Disorders: Yes HEENT Disorders: Dysphagia Loss of Vision: Denies Hearing Impairment: Hard of Hearing Cancer Hx Cancer: No Psychosocial Hx Psychiatric Problems: Yes (ALCOHOL/POLYSUBSTANCE ABUSE/OVERDOSES-INTUBATED 2012, INCARCERATIONS) Behavioral Health Disorders: Suicide Attempts, Depression Integumentary HX Skin/Integumentary Disorder: No Blood Transfusions Hx Blood Disorders: No Reviewed Nursing Assessment Reviewed/Agree w Nursing PMH: Yes Family Medical History Significant Family History: No Pertinent Family Hx Family Medial History: Physical Exam Vital Signs Vital Sign - Last 12Hours 02/23/17 02/23/17 09:04 11:01 Temp 96.7 Pulse 84 Resp 18 B/P (MAP) 108/64 Pulse Ox 100 O2 Delivery Room Air O2 Flow Rate 2.00 Capillary Refill : General Appearance: No Apparent Distress, WD/WN HEENT: Pharynx Normal, Other (pupil pinpoint bilateral) Neck: Non Tender, Supple Respiratory: Lungs Clear, Normal Breath Sounds Cardiovascular: Regular Rate, Rhythm, No Murmur Gastrointestinal: Non Tender, Soft Back: Normal Inspection, No CVA Tenderness, No Vertebral Tenderness Extremity: Non Tender, No Calf Tenderness Neurologic/Psychiatric: Depressed Affect, Disoriented x3 Skin: Normal Color, Warm/Dry Progress/Results/Core Measures Results/Orders Lab Results Laboratory Tests Test 02/23/17 09:30 02/23/17 10:48 02/23/17 11:24 02/23/17 11:39 Range/Units Blood Gas Puncture Site RR Blood Gas Patient Temperature 96.2 Arterial Blood pH 7.23 *L 7.37-7.43 Arterial Blood Partial Pressure CO2 49 H 35-45 MMHG Arterial Blood Partial Pressure O2 86 79-93 MMHG Arterial Blood HCO3 21 L 23-27 MMOL/L Arterial Blood Total CO2 22.1 21.0-31.0 MMOL/L Arterial Blood Oxygen Saturation 97 94-100 % Arterial Blood Base Excess -6.0 L -2.5-2.5 MMOL/L Raudel Test YES-POS Blood Gas Ventilator Setting NO Blood Gas Inspired Oxygen 2 White Blood Count 6.4 4.3-11.0 10^3/uL Red Blood Count 4.65 4.35-5.85 10^6/uL Hemoglobin 13.6 13.3-17.7 G/DL Hematocrit 41 40-54 % Mean Corpuscular Volume 87 80-99 FL Mean Corpuscular Hemoglobin 29 25-34 PG Mean Corpuscular Hemoglobin Concent 34 32-36 G/DL Red Cell Distribution Width 13.8 10.0-14.5 % Platelet Count 277 130-400 10^3/uL Mean Platelet Volume 11.1 H 7.4-10.4 FL Neutrophils (%) (Auto) 54 42-75 % Lymphocytes (%) (Auto) 31 12-44 % Monocytes (%) (Auto) 10 0-12 % Eosinophils (%) (Auto) 4 0-10 % Basophils (%) (Auto) 1 0-10 % Neutrophils # (Auto) 3.4 1.8-7.8 X 10^3 Lymphocytes # (Auto) 2.0 1.0-4.0 X 10^3 Monocytes # (Auto) 0.7 0.0-1.0 X 10^3 Eosinophils # (Auto) 0.3 0.0-0.3 10^3/uL Basophils # (Auto) 0.1 0.0-0.1 10^3/uL Sodium Level 140 135-145 MMOL/L Potassium Level 3.4 L 3.6-5.0 MMOL/L Chloride Level 110 H 98-107 MMOL/L Carbon Dioxide Level 23 21-32 MMOL/L Anion Gap 7 5-14 MMOL/L Blood Urea Nitrogen 20 H 7-18 MG/DL Creatinine 0.84 0.60-1.30 MG/DL Estimat Glomerular Filtration Rate > 60 BUN/Creatinine Ratio 24 Glucose Level 70 70-105 MG/DL Calcium Level 8.6 8.5-10.1 MG/DL Total Bilirubin 0.5 0.1-1.0 MG/DL Aspartate Amino Transf (AST/SGOT) 20 5-34 U/L Alanine Aminotransferase (ALT/SGPT) 11 0-55 U/L Alkaline Phosphatase 70 40-136 U/L Total Protein 6.1 L 6.4-8.2 G/DL Albumin 3.4 3.2-4.5 G/DL Salicylates Level < 5.0 L 5.0-20.0 MG/DL Acetaminophen Level < 10 L 10-30 UG/ML Serum Alcohol 18 H <10 MG/DL Urine Opiates Screen POSITIVE H NEGATIVE Urine Oxycodone Screen NEGATIVE NEGATIVE Urine Methadone Screen NEGATIVE NEGATIVE Urine Propoxyphene Screen NEGATIVE NEGATIVE Urine Barbiturates Screen NEGATIVE NEGATIVE Ur Tricyclic Antidepressants Screen NEGATIVE NEGATIVE Urine Phencyclidine Screen NEGATIVE NEGATIVE Urine Amphetamines Screen NEGATIVE NEGATIVE Urine Methamphetamines Screen NEGATIVE NEGATIVE Urine Benzodiazepines Screen POSITIVE H NEGATIVE Urine Cocaine Screen NEGATIVE NEGATIVE Urine Cannabinoids Screen NEGATIVE NEGATIVE My Orders Orders - CARROLL ORTIZ MD Acetaminophen (02/23/17 09:09) Alcohol (02/23/17 09:09) Arterial Blood Gas (02/23/17 09:09) Cbc With Automated Diff (02/23/17 09:09) Comprehensive Metabolic Panel (02/23/17 09:09) Drug Screen Stat (Urine) (02/23/17 09:09) Salicylate (02/23/17 09:09) Saline Lock/Iv-Start (02/23/17 09:09) Ns Iv 1000 Ml (Sodium Chloride 0.9%) (02/23/17 09:09) Chest 1 View, Ap/Pa Only (02/23/17 09:09) Rt Request For Service (02/23/17 09:16) Ct Head Wo (02/23/17 09:28) Ns Iv 1000 Ml (Sodium Chloride 0.9%) (02/23/17 11:18) Catheter(Urinary) Insert & Ass ,15 (02/23/17 11:47) Medications Given in ED Current Medications Medications Dose Ordered Sig/Carl Route Start Time Stop Time Status Last Admin Dose Admin Sodium Chloride 1,000 ml @ 0 mls/hr Q0M ONCE IV 02/23/17 09:09 02/23/17 09:15 DC 02/23/17 11:29 1,000 MLS/HR Vital Signs/I&O Vital Sign - Last 12Hours 02/23/17 02/23/17 02/23/17 09:04 11:01 11:50 Temp 96.7 Pulse 84 61 60 Resp 18 10 10 B/P (MAP) 108/64 118/72 Pulse Ox 100 100 O2 Delivery Room Air Nasal Cannula Nasal Cannula O2 Flow Rate 2.00 2.00 Progress Note : Progress Note Seen and evaluated. IV, labs, UA, UDS, chest x-ray and CT head ordered. End- tidal CO2 and ABG ordered due to concerns for narcotic overdose. Monitor patient. Patient is a very difficult IV stick. Midline catheter ordered. Multiple attempts and catheter was eventually able to place. Patient still very lethargic. Apparently has recently got his for Xanax prescription refilled and skill worker reports that he has a tendency to over take those when he gets his new prescription. Fermin catheter placed. 1145: CT and x-ray results noted. Pending labs. Patient remains lethargic and end-tidal CO2 40- 45 currently. 1210: I did discuss the case with Dr. SMALL. He says patient for admission, observation status due to persistent lethargy related to narcotic /benzodiazepine overdose. Patient should be considered for long-term placement due to multiple overdoses on his chronic medicines. This was discussed as well. Diagnostic Imaging Diagonstic Imaging: CT Plain Films/CT/US/NM/MRI: head Comments VIA [facility]. [place], [place] NAME: NI ESPINOZA MED REC#: [id number] PT STATUS: REG ER : 1950 PHYSICIAN: CARROLL ORTIZ MD ADMIT DATE: 02/23/17/ER Draft Date of Exam:02/23/17 CT HEAD WO PROCEDURE: CT head without contrast. TECHNIQUE: Multiple contiguous axial images were obtained through the brain without the use of intravenous contrast. INDICATION: Multiple falls with head injury. CT HEAD: Multiple contiguous axial CT images of the head were obtained. FINDINGS: Ventricles and sulci are within normal limits for size. There is no intracranial hemorrhage identified. There is no abnormal mass effect or shift of midline structures. When compared to study of 02/19/2017, there has been decreased swelling in the left supraorbital region. IMPRESSION: Unremarkable CT of the head. Dictated on workstation # [id number] Dict: 02/23/17 1121 Trans: 02/23/17 1127 [facility] [id number] Interpreted by: APRIL GERARDO MD Electronically signed by: Diagonstic Imaging: Xray Plain Films/CT/US/NM/MRI: chest Comments VIA [facility]. [place], [place] NAME: NI ESPINOZA [facility] REC#: [id number] PT STATUS: REG ER : 1950 PHYSICIAN: CARROLL ORTIZ MD ADMIT DATE: 02/23/17/ER Draft Date of Exam:02/23/17 CHEST 1 VIEW, AP/PA ONLY INDICATION: Acute mental status change. TECHNIQUE: An AP upright view of the chest was obtained. COMPARISON: 02/19/2017. FINDINGS: There is suboptimal inspiration on the AP upright portable view of the chest. There is crowding of the central pulmonary markings. No pneumothorax or consolidation is identified. IMPRESSION: Probable perihilar atelectasis with possible edema or pneumonitis. Followup PA and lateral views of the chest would be useful, if possible. Dictated on workstation # [id number] Dict: 02/23/17 1120 Trans: 02/23/17 1124 [id number] Interpreted by: APRIL GERARDO MD Electronically signed by: Departure Communication Time/Spoke to Admitting Phy: 12:10 Impression Impression: Primary Impression: Narcotic overdose Qualified Codes: T40.601A - Poisoning by unspecified narcotics, accidental ( unintentional), initial encounter Additional Impression: Benzodiazepine overdose Qualified Codes: T42.4X1A - Poisoning by benzodiazepines, accidental ( unintentional), initial encounter Disposition: ADMITTED INPATIENT Condition: Stable Decision to Admit Reason: Admit from ER (General) Decision to Admit/Date: February 23, 2017 Time/Decision to Admit Time: 12:10 Departure-Patient Inst. Referrals: NABILA LO MD (PCP/Family) Primary Care Physician CARROLL ORTIZ MD February 23, 2017 09:35
[2017-02-23 09:45] LABS: ABG HCO3 21 MMOL/L (23-27); ABG OXYGEN SATURATION 97 % (94-100); ABG PCO2 49 MMHG (35-45); ABG PO2 86 MMHG (79-93); ABG TCO2 22.1 MMOL/L (21.0-31.0)
[2017-02-23 09:47] LABS: ABG PH 7.23 (7.37-7.43); ALLENS TEST YES-POS; PATIENT TEMP 96.2
[2017-02-23 10:59] LABS: BASOPHILS # (AUTO) 0.1 10^3/uL (0.0-0.1); BASOPHILS % (AUTO) 1 % (0-10); EOSINOPHILS # (AUTO) 0.3 10^3/uL (0.0-0.3); EOSINOPHILS % (AUTO) 4 % (0-10); LYMPHOCYTES % (AUTO) 31 % (12-44); MEAN CORPUSCULAR HEMOGLOBIN 29 PG (25-34); MEAN CORPUSCULAR HGB CONC 34 G/DL (32-36); MEAN CORPUSCULAR VOLUME 87 FL (80-99); MEAN PLATELET VOLUME 11.1 FL (7.4-10.4); MONOCYTES # (AUTO) 0.7 X 10^3 (0.0-1.0); MONOCYTES % (AUTO) 10 % (0-12); NEUTROPHILS # (AUTO) 3.4 X 10^3 (1.8-7.8); NEUTROPHILS % (AUTO) 54 % (42-75); PLATELET COUNT 277 10^3/uL (130-400); RED BLOOD COUNT 4.65 10^6/uL (4.35-5.85); RED CELL DISTRIBUTION WIDTH 13.8 % (10.0-14.5); WHITE BLOOD COUNT 6.4 10^3/uL (4.3-11.0)
[2017-02-23 11:01] VITALS: BP 108/64
[2017-02-23] MEDS ORDERED: NS IV 1000 ML 1,000 ML ONE (11:18)
--- NOTE | 2017-02-23 11:25 | Diagnostic Imaging Report ---
INDICATION: Acute mental status change. TECHNIQUE: An AP upright view of the chest was obtained. COMPARISON: 02/19/2017. FINDINGS: There is suboptimal inspiration on the AP upright portable view of the chest. There is crowding of the central pulmonary markings. No pneumothorax or consolidation is identified. IMPRESSION: Probable perihilar atelectasis with possible edema or pneumonitis. Followup PA and lateral views of the chest would be useful, if possible. Dictated by: Dictated on workstation # [id number]
--- NOTE | 2017-02-23 11:28 | Diagnostic Imaging Report ---
PROCEDURE: CT head without contrast. TECHNIQUE: Multiple contiguous axial images were obtained through the brain without the use of intravenous contrast. INDICATION: Multiple falls with head injury. CT HEAD: Multiple contiguous axial CT images of the head were obtained. FINDINGS: Ventricles and sulci are within normal limits for size. There is no intracranial hemorrhage identified. There is no abnormal mass effect or shift of midline structures. When compared to study of 02/19/2017, there has been decreased swelling in the left supraorbital region. IMPRESSION: Unremarkable CT of the head. Dictated by: Dictated on workstation # [id number]
[2017-02-23 11:50] VITALS: BP 118/72
[2017-02-23 11:55] LABS: ALANINE AMINOTRANSFERASE 11 U/L (0-55); ALBUMIN 3.4 G/DL (3.2-4.5); ALCOHOL 18 MG/DL (<10); ANION GAP 7 MMOL/L (5-14); ASPARTATE AMINO TRANSFERASE 20 U/L (5-34); BILIRUBIN,TOTAL 0.5 MG/DL (0.1-1.0); BLOOD UREA NITROGEN 20 MG/DL (7-18); BUN/CREATININE RATIO 24; CALCIUM 8.6 MG/DL (8.5-10.1); CARBON DIOXIDE 23 MMOL/L (21-32); CHLORIDE 110 MMOL/L (98-107); CREATININE SERUM 0.84 MG/DL (0.60-1.30); GFR ESTIMATED > 60; GLUCOSE 70 MG/DL (70-105); POTASSIUM 3.4 MMOL/L (3.6-5.0); SALICYLATE < 5.0 MG/DL (5.0-20.0); SODIUM 140 MMOL/L (135-145); TOTAL PROTEIN 6.1 G/DL (6.4-8.2)
[2017-02-23 11:57] LABS: ACETAMINOPHEN < 10 UG/ML (10-30)
[2017-02-23 13:30] VITALS: BP 126/81
[2017-02-23] MEDS ORDERED: CATHETER FLUSH 10 ML SYR IV PRN (13:45)
[2017-02-23] MEDS: NS IV 1000 ML 1,000 ML IV SCH ×2 (14:17→23:21)
[2017-02-23] MEDS: RT-ALBUTEROL/IPRATROPIUM 3 ML (DUONEB) VIAL INH PRN (15:41)
[2017-02-23 16:00] VITALS: BP 92/52
[2017-02-23 19:41] VITALS: BP 92/62
[2017-02-23] MEDS: RT-ALBUTEROL/IPRATROPIUM 3 ML (DUONEB) VIAL INH SCH (21:06)
[2017-02-24] VITALS: BP_SYST 101; BP_SYST 139; BP_DIAS 64
[2017-02-24 04:00] VITALS: BP 103/55
[2017-02-24] MEDS: RT-ALBUTEROL/IPRATROPIUM 3 ML (DUONEB) VIAL INH PRN (04:41)
[2017-02-24 06:06] LABS: BASOPHILS % (AUTO) 0 % (0-10); EOSINOPHILS # (AUTO) 0.2 10^3/uL (0.0-0.3); EOSINOPHILS % (AUTO) 1 % (0-10); LYMPHOCYTES # (AUTO) 1.1 X 10^3 (1.0-4.0); LYMPHOCYTES % (AUTO) 7 % (12-44); MEAN CORPUSCULAR HEMOGLOBIN 29 PG (25-34); MEAN CORPUSCULAR HGB CONC 33 G/DL (32-36); MEAN CORPUSCULAR VOLUME 88 FL (80-99); MEAN PLATELET VOLUME 11.5 FL (7.4-10.4); MONOCYTES # (AUTO) 0.8 X 10^3 (0.0-1.0); MONOCYTES % (AUTO) 5 % (0-12); NEUTROPHILS # (AUTO) 12.9 X 10^3 (1.8-7.8); NEUTROPHILS % (AUTO) 86 % (42-75); PLATELET COUNT 197 10^3/uL (130-400); RED BLOOD COUNT 4.91 10^6/uL (4.35-5.85)
[2017-02-24 06:27] LABS: ALANINE AMINOTRANSFERASE 9 U/L (0-55); ALBUMIN 3.2 G/DL (3.2-4.5); ANION GAP 10 MMOL/L (5-14); ASPARTATE AMINO TRANSFERASE 19 U/L (5-34); BILIRUBIN,TOTAL 0.7 MG/DL (0.1-1.0); BLOOD UREA NITROGEN 15 MG/DL (7-18); BUN/CREATININE RATIO 20; CALCIUM 8.5 MG/DL (8.5-10.1); CARBON DIOXIDE 18 MMOL/L (21-32); CHLORIDE 112 MMOL/L (98-107); CREATININE SERUM 0.74 MG/DL (0.60-1.30); GFR ESTIMATED > 60; GLUCOSE 118 MG/DL (70-105); POTASSIUM 4.1 MMOL/L (3.6-5.0); SODIUM 140 MMOL/L (135-145)
[2017-02-24 06:37] LABS: LYMPHOCYTES % (MANUAL) 7 %; NEUTROPHILS % (MANUAL) 88 %
[2017-02-24] MEDS: RT-ALBUTEROL/IPRATROPIUM 3 ML (DUONEB) VIAL INH SCH (07:13)
[2017-02-24 08:51] VITALS: BP 110/61
[2017-02-24] MEDS: NS IV 1000 ML 1,000 ML IV SCH (09:41)
--- NOTE | 2017-02-24 10:20 | Short Stay Summary-Hospitalist ---
HPI History of Present Illness: HPI/Chief Complaint Mr. Jalloh is a 66-year-old white male brought in by EMS with altered mental status. There is questionable fall at home but is apparently found by home care staff with altered sensorium. This morning he states that his leg have been hurting and he inadvertently took an extra morphine dose. He is on high- dose narcotic therapy due to chronic leg pain. He has a history of bilateral hip replacements that had to be surgically removed due to the fact that they could not clear infection 6 years ago. He does transfer from bed the power chair and commode independently but has not walked since bilateral total hip replacement removal roughly 6 years ago. He's had several admissions for narcotic overdose. He is followed by Dr. Beasley and is currently taking 100 mg of MS Contin twice a day and also has 100 mg reportedly of morphine IR for every 4 hours when necessary use. He was apparently easily arousable. He did have mild hypercapnia without hypoxia and was admitted to monitor his respiratory status closely. He denies depression or suicidal ideation reporting his extra dose of narcotic was inadvertent.he denies any respiratory symptoms over the past several days. He had had a bad cold several weeks ago but recovered from this. He denied chills or fever night sweats or anorexia. Date Seen 02/24/17 Attending Physician Ronan Smith MD PCP Nabila Beasley MD Referring Physician Date of Admission February 23, 2017 at 12:10 Home Medications & Allergies Home Medications Reviewed patient Home Medication Reconciliation Form Allergies Allergies Coded Allergies codeine (Verified Allergy, Mild, HIVES...TAKES OXYCODONE & MS CONTIN AT HOME, 07/29/07) streptokinase (Verified Allergy, Unknown, 07/29/07) Past Ihysqfi-Veqkhb-Ywtqvx Hx Patient Social History Alcohol Use: Past History Recreational Drug Use: Yes Smoking Status: Current Everyday Smoker Type Used: Cigarettes 2nd Hand Smoke Exposure: Yes Physical Abuse Screen: No Sexual Abuse: No Recent Foreign Travel: No Contact w/other who traveled: No Recent Hopitalizations: No Recent Infectious Disease Expo: No Immunizations Up To Date Tetanus Booster (TDap): More than 5yrs Date of Pneumonia Vaccine: Nov 08, 2012 Date of Influenza Vaccine: Jul 26, 2016 Seasonal Allergies Seasonal Allergies: No Surgeries HX Surgeries: Yes (22 HIP SURGERIES) Surgeries: Abdominal, Appendectomy, Cardiac, Defibrillator, Joint Replacement, Orthopedic, Pacemaker Respiratory Hx Respiratory Disorders: Yes (PT INTUBATED IN PAST DUE TO OVERDOSES/ETOH ) Respiratory Disorders: COPD Cardiovascular Hx Cardiovascular Disorders: Yes (PACEMAKER, CARDIAC ARREST, SELF - REPORTED [place] X 8) Cardiac Disorders: Chronic Edema/Swelling, Coronary Artery Disease, Heart Attack, Hypertension, Irregular Heartbeat Neurological Hx Neurological Disorders: No Reproductive System Hx Reproductive Disorders: No Sexually Transmitted Disease: No Genitourinary Hx Genitourinary Disorders: Yes (patient performs self straight catheters) Genitourinary Disorders: Neurogenic Bladder Gastrointestinal Hx Gastrointestinal Disorders: Yes Gastrointestinal Disorders: Abdominal Hernia Musculoskeletal Hx Musculoskeletal Disorders: Yes Musculoskeletal Disorders: Arthritis, Chronic Back Pain, Fractures Endocrine Hx Endocrine Disorders: Yes (OBESITY) Endocrine Disorders: Diabetes, Insulin dep HEENT HX ENT Disorders: Yes HEENT Disorders: Dysphagia Loss of Vision: Denies Hearing Impairment: Hard of Hearing Cancer Hx Cancer: No Psychosocial Hx Psychiatric Problems: Yes (ALCOHOL/POLYSUBSTANCE ABUSE/OVERDOSES-INTUBATED 2013, INCARCERATIONS) Behavioral Health Disorders: Suicide Attempts, Depression Integumentary HX Skin/Integumentary Disorder: No Blood Transfusions Hx Blood Disorders: No Reviewed Nursing Assessment Reviewed/Agree w Nursing PMH: Yes Family Medical History Significant Family History: No Pertinent Family Hx Family Hx: Patient reports no known family medical history. Review of Systems Constitutional: see HPI Physical Exam Physical Exam Vital Signs Vital Sign - Last 12Hours 02/23/17 02/23/17 09:04 11:01 Temp 96.7 Pulse 84 Resp 18 B/P (MAP) 108/64 Pulse Ox 100 O2 Delivery Room Air O2 Flow Rate 2.00 Capillary Refill : Less Than 3 Seconds General Appearance: No Apparent Distress, Chronically ill HEENT: PERRL/EOMI, Pale Conjunctivae (L), Pale Conjunctivae (R) Neck: Full Range of Motion, Normal Inspection, Non Tender, Supple Respiratory: Chest Non Tender, Lungs Clear, Normal Breath Sounds, No Accessory Muscle Use, No Respiratory Distress Cardiovascular: Regular Rate, Rhythm, No Edema, No Gallop, No JVD, No Murmur, Normal Peripheral Pulses Gastrointestinal: Normal Bowel Sounds, No Organomegaly, No Pulsatile Mass, Non Tender, Soft Extremity: Other (strategies are warm there is 1+ bilateral edema. No sores are noted) Neurologic/Psychiatric: Alert, Other (oriented times 2 speech and mentation are normal this morning) Skin: Pallor (mild) Comments Laboratory Tests 02/23/17 10:48: White Blood Count 6.4, Red Blood Count 4.65, Hemoglobin 13.6, Hematocrit 41, Mean Corpuscular Volume 87, Mean Corpuscular Hemoglobin 29, Mean Corpuscular Hemoglobin Concent 34, Red Cell Distribution Width 13.8, Platelet Count 277, Mean Platelet Volume 11.1H, Neutrophils (%) (Auto) 54, Lymphocytes (%) (Auto) 31 , Monocytes (%) (Auto) 10, Eosinophils (%) (Auto) 4, Basophils (%) (Auto) 1, Neutrophils # (Auto) 3.4, Lymphocytes # (Auto) 2.0, Monocytes # (Auto) 0.7, Eosinophils # (Auto) 0.3, Basophils # (Auto) 0.1 02/23/17 11:24: Sodium Level 140, Potassium Level 3.4L, Chloride Level 110H, Carbon Dioxide Level 23, Anion Gap 7, Blood Urea Nitrogen 20H, Creatinine 0.84, Estimat Glomerular Filtration Rate > 60, BUN/Creatinine Ratio 24, Glucose Level 70, Calcium Level 8.6, Total Bilirubin 0.5, Aspartate Amino Transf (AST/SGOT) 20, Alanine Aminotransferase (ALT/SGPT) 11, Alkaline Phosphatase 70, Total Protein 6.1L, Albumin 3.4, Salicylates Level < 5.0L, Acetaminophen Level < 10L, Serum Alcohol 18H 02/23/17 11:39: Urine Opiates Screen POSITIVEH, Urine Oxycodone Screen NEGATIVE, Urine Methadone Screen NEGATIVE, Urine Propoxyphene Screen NEGATIVE, Urine Barbiturates Screen NEGATIVE, Ur Tricyclic Antidepressants Screen NEGATIVE, Urine Phencyclidine Screen NEGATIVE, Urine Amphetamines Screen NEGATIVE, Urine Methamphetamines Screen NEGATIVE, Urine Benzodiazepines Screen POSITIVEH, Urine Cocaine Screen NEGATIVE, Urine Cannabinoids Screen NEGATIVE 02/24/17 05:45: White Blood Count 15.0H, Red Blood Count 4.91, Hemoglobin 14.2, Hematocrit 43, Mean Corpuscular Volume 88, Mean Corpuscular Hemoglobin 29, Mean Corpuscular Hemoglobin Concent 33, Red Cell Distribution Width 14.0, Platelet Count 197, Mean Platelet Volume 11.5H, Neutrophils (%) (Auto) 86H, Lymphocytes (%) (Auto) 7L, Monocytes (%) (Auto) 5, Eosinophils (%) (Auto) 1, Basophils (%) (Auto) 0, Neutrophils # (Auto) 12.9H, Lymphocytes # (Auto) 1.1, Monocytes # (Auto) 0.8, Eosinophils # (Auto) 0.2, Basophils # (Auto) 0.0, Sodium Level 140, Potassium Level 4.1, Chloride Level 112H, Carbon Dioxide Level 18L, Anion Gap 10, Blood Urea Nitrogen 15, Creatinine 0.74, Estimat Glomerular Filtration Rate > 60, BUN/ Creatinine Ratio 20, Glucose Level 118H, Calcium Level 8.5, Total Bilirubin 0.7 , Aspartate Amino Transf (AST/SGOT) 19, Alanine Aminotransferase (ALT/SGPT) 9, Alkaline Phosphatase 76, Total Protein 6.0L, Albumin 3.2, Neutrophils % (Manual ) 88, Lymphocytes % (Manual) 7, Monocytes % (Manual) 5, Blood Morphology Comment NORMAL Results Results/Procedures Lab Laboratory Tests 02/23/17 10:48 02/23/17 11:24 02/24/17 05:45 Short Stay Diagnosis Discharge Diagnosis-Short Stay Admission Diagnosis 1. Inadvertent narcotic overdose 2. Respiratory depression without respiratory failure secondary to number 1 Final Discharge Diagnosis same as above Conclusion Plan patient was admitted to the floor with O2 sat in end-tidal CO2 monitoring. By the morning of the second he was alert and oriented and voicing no complaints. See history of present illness. He states that he is going to be getting an automatic dispensing machine on which should significantly mitigate inadvertent overdose. We discussed the combination of benzodiazepines and high- dose narcotic therapy had nearly claimed his life again and advised attempting to keep additional narcotic use to a minimum. Also pointed out that Flexeril can be sedating he is currently only using it at bedtime for leg spasm. He has home care that comes out 3 times a week will continue to monitor his status. He was [facility] but he wishes to remain where he is is long as possible. Attempted narcotic reduction was advised. His Fermin will be removed and as long as he is able to urinate will be discharged later today. Copy Copies To 1: NABILA BEASLEY MD Clinical Quality Measures DVT/VTE Risk/Contraindication: Risk Factor Score Per Nursin RFS Level Per Nursing on Admit: 4+=Very High JUANITO FREEMAN MD February 24, 2017 10:20
[2017-02-24 12:00] VITALS: BP 108/54
== END 2017-02-24 10:10 | disposition home or self-care (01) ==
LOC: EDUNIT# 08:59 → ER 09:01 → UNDOADMOB 12:10 → 4TH 12:10 → UNDODISOB 02-24 14:38
PROVIDERS: ADMIT Internal Medicine; ATTEND Internal Medicine
DX: T40.2X1A Poisoning by other opioids, accidental (unintentional), initial encounter (principal); T42.4X1A Poisoning by benzodiazepines, accidental (unintentional), initial encounter; R41.82 Altered mental status, unspecified; G93.89 Other specified disorders of brain; M79.661 Pain in right lower leg; N31.9 Neuromuscular dysfunction of bladder, unspecified; J44.9 Chronic obstructive pulmonary disease, unspecified; F17.210 Nicotine dependence, cigarettes, uncomplicated; Z91.81 History of falling; I25.10 Atherosclerotic heart disease of native coronary artery without angina pectoris; I10 Essential (primary) hypertension; E11.9 Type 2 diabetes mellitus without complications; Z95.810 Presence of automatic (implantable) cardiac defibrillator
CPT/HCPCS: 36415; 51702; 70450; 71010; 76937; 80053; 80306; 80320; 80329; 82805; 85007; 85025; 85027; 94640; 94760; 96360; G0378

== ENCOUNTER 2017-08-14 19:49 | Observation (INO) | payer MEDICARE, MEDICAID ==
[~2017-08-14] VITALS: Ht 172.7 cm; Wt 90.3 kg
--- OUTSIDE RECORDS SUMMARY | 2017-08-14 20:01 | XMS REPORT | Continuity of Care Document ---
Author Author [employer] Organization [facility] Address Unknown Phone Unavailable Care Team Providers Care Chief Internal Auditor Name Role Phone [employer] Unavailable Unavailable Problems Medications Allergies, Adverse Reactions, Alerts Immunizations Results Vital Signs Encounters Location Location Details Encounter Type Encounter Number Reason For Visit Attending Provider ADM Date DC Date Status Source OUTPATIENT [id number] ROXI COMBS 04/04/2014 04/04/2014 Active [facility] Procedures Plan of Care Social History Assessment and Plan Family History Value Date Source Advance Directives Order Name Results Value Date Source
--- OUTSIDE RECORDS SUMMARY | 2017-08-14 20:01 | XMS REPORT | Clinical Summary ---
Author Author [facility] Organization [facility] Address Unknown Phone Unavailable Care Team Providers Care Air Traffic Control Manager Name Role Phone PCP Unavailable Source Comments Some departments are not documenting in the electronic medical record. If you do not see the information that you expected, contact Release of Information in the Health Information Management department at [phone] for further assistance in locating additional records.[facility] Allergies Active Allergy Reactions Severity Noted Date Comments Codeine High 08/07/2003 Allergy recorded in SMS: Codeine~Reactions: SWELLING~HIVES Streptokinase High 08/07/2003 Allergy recorded in SMS: Streptokinase~Reactions: SWELLING Current [...] 13 daily. Active Problems Problem Noted Date [place] (myocardial infarction) 04/04/2014 Pacemaker 04/04/2014 Asthma 04/04/2014 S/P bilateral hip replacements 04/04/2014 S/P hardware removal 04/04/2014 S/P cervical spinal fusion 04/04/2014 Hip pain 11/25/2012 Pain in joint, pelvic region and thigh 04/05/2008 Pain in joint, lower leg 04/05/2008 Social History Tobacco Use Types Packs/Day Years Used Date Current Every Day Smoker Cigarettes 0.5 35 Alcohol Use Drinks/Week oz/Week Comments Yes 1 Cans of 0.6 beer Sex Assigned at Date Recorded Not on file Last Filed Vital Signs Vital Sign Reading Time Taken Blood Pressure 147/78 11/23/2012 8:30 AM RAD TECHNOLOGIST Pulse 63 11/23/2012 8:30 AM RAD TECHNOLOGIST Temperature 36.8 C (98.3 F) 11/23/2012 8:30 AM RAD TECHNOLOGIST Respiratory Rate - - Oxygen Saturation 97% 11/23/2012 8:30 AM RAD TECHNOLOGIST Inhaled Oxygen - - Concentration Weight 86.2 kg (190 lb) 11/19/2012 9:57 AM RAD TECHNOLOGIST Height 172.7 cm (5' 8") 11/19/2012 9:57 AM RAD TECHNOLOGIST Body Mass Index 28.89 11/19/2012 9:57 AM RAD TECHNOLOGIST Plan of Treatment Health Maintenance Due Date Last Done Comments HEPATITIS C SCREENING 1952 PHYSICAL (COMPREHENSIVE) 1959 EXAM PERTUSSIS VACCINE 1963 TETANUS VACCINE 1969 COLORECTAL CANCER 2002 SCREENING SHINGLES VACCINE 2012 INFLUENZA VACCINE 05/26/2017 Results Not on filefrom Last 3 Months
[2017-08-14 20:11] LABS: BASOPHILS % (AUTO) 0 % (0-10); MEAN CORPUSCULAR HGB CONC 33 G/DL (32-36)
--- NOTE | 2017-08-14 20:15 | ED Chest Pain ---
General Stated Complaint: CHEST PAIN Source: patient (SOMEWHAT LIMITED HISTORIAN), EMS, old records History of Present Illness Time seen by provider: 19:55 Initial Comments PT ARRIVES VIA EMS FROM HOME C/O CHEST PAIN SINCE 1800 C/O SHORTNESS OF BREATH ONGOING EDEMA--GETTING WORSE PT HAS NOT URINATED AT ALL TODAY AND ONLY VOIDED X 2 YESTERDAY PT CALLED EMS 2 DAYS AGO FOR CHEST PAIN, THEN DECLINED TRANSPORT--STATES PAIN WENT AWAY ADDITIONALLY, PT FELL AND INJURED RIGHT WRIST YESTERDAY PT ALSO HAS MULTIPLE ( TOO MANY TO COUNT ) SCRATCHES TO LEFT > RIGHT FOREARMS, WITH REDNESS AND SWELLING TO LEFT HAND AND FOREARM--PT CLAIMS HE WAS TAKING OUT THE TRASH AND THE WIND WAS BLOWING AND A PIECE OF GLASS CUT HIS ARM PT IS WHEELCHAIR BOUND, HE HAS HAD HIP JOINTS PERMANENTLY REMOVED AFTER MULTIPLE FAILED REPLACEMENTS. PT WITH MULTIPLE VISITS, MANY FOR OVERDOSES OF NARCOTICS/ BENZO'S PLUS ALCOHOL-- SEE OLD CHARTS FOR DETAILS PCP: DR. LO ISSUING OPERATOR: DR. SQUIRES Allergies and Home Medications Allergies Coded Allergies: codeine (Verified Allergy, Mild, HIVES...TAKES OXYCODONE & MS CONTIN AT HOME, 07/29/07) streptokinase (Verified Allergy, Unknown, 07/29/07) Home Medications Alprazolam 1 Mg Tablet, 1 MG PO TID PRN for ANXIETY, (Reported) Apixaban 5 Mg Tablet, 5 MG PO BID for 30 Days, Ref 3 Prescribed by: ANALY CLARK on 02/20/17 1339 Aspirin 81 Mg Tab.chew, 81 MG PO DAILY, #90 Ref 3 Prescribed by: JILLIAN LOEPZ on 08/15/17 1227 Cyclobenzaprine HCl 10 Mg Tablet, 10 MG PO TID PRN for MUSCLE SPASMS, (Reported) Metoprolol Succinate 50 Mg Tab.er.24h, 50 MG PO DAILY for 30 Days, Ref 3 Prescribed by: ANALY CLARK on 02/20/17 1339 Morphine Sulfate 100 Mg Tablet.er, 200 MG PO BID, (Reported) TAKES 2 (100MG) TABLETS Nitroglycerin 0.4 Mg Tab.subl, 0.4 MG SL UD PRN for CHEST PAIN, (Reported) Polyethylene Glycol 3350 17 Gm Powd.pack, 17 GM PO DAILY PRN for CONSTIPATION- 2ND LINE, (Reported) Zolpidem Tartrate 10 Mg Tablet, 10 MG PO HS PRN for SLEEP, (Reported) Past Gszbxix-Pozrvo-Swavuq Hx Patient Social History Alcohol Beverage of Choice: Whiskey Type Used: Cigarettes Former Smoker, Quit: May 30, 2014 2nd Hand Smoke Exposure: Yes Recent Hopitalizations: No Immunizations Up To Date Tetanus Booster (TDap): More than 5yrs PED Vaccines UTD: No Date of Pneumonia Vaccine: Nov 08, 2012 Date of Influenza Vaccine: Jul 26, 2016 Seasonal Allergies Seasonal Allergies: No Surgeries History of Surgeries: Yes (22 HIP SURGERIES) Surgeries: Abdominal, Appendectomy, Cardiac, Defibrillator, Joint Replacement, Orthopedic, Pacemaker Respiratory History of Respiratory Disorde: Yes (PT INTUBATED IN PAST DUE TO OVERDOSES/ ETOH ) Respiratory Disorders: COPD Currently Using CPAP: No Currently Using BIPAP: No Cardiovascular History of Cardiac Disorders: Yes (PACEMAKER, CARDIAC ARREST, SELF - REPORTED [place] X 8) Cardiac Disorders: Chronic Edema/Swelling, Coronary Artery Disease, Heart Attack, Hypertension, Irregular Heartbeat Neurological History of Neurological Disord: No Reproductive System Hx Reproductive Disorders: No Sexually Transmitted Disease: No Genitourinary Genitourinary Disorders: Neurogenic Bladder Gastrointestinal History of Gastrointestinal Di: Yes Gastrointestinal Disorders: Abdominal Hernia Musculoskeletal History of Musculoskeletal Dis: Yes (no hip joints related to sx) Musculoskeletal Disorders: Arthritis, Chronic Back Pain, Fractures Endocrine History of Endocrine Disorders: Yes (OBESITY) Endocrine Disorders: Diabetes, Insulin dep HEENT HEENT Disorders: Dysphagia Loss of Vision: Denies Hearing Impairment: Hard of Hearing Cancer History of Cancer: No Psychosocial History of Psychiatric Problem: Yes (ALCOHOL/POLYSUBSTANCE ABUSE/OVERDOSES- INTUBATED 2012, INCARCERATIONS) Behavioral Health Disorders: Suicide Attempts, Depression Integumentary History of Skin or Integumenta: No Blood Transfusions History of Blood Disorders: No Family Medical History Significant Family History: No Pertinent Family Hx Family Medial History: Patient reports no known family medical history. Physical Exam Vital Signs Vital Sign - Last 12Hours 08/14/17 19:50 Temp 98.5 Pulse 77 Resp 12 B/P (MAP) 122/75 Pulse Ox 95 O2 Delivery Room Air Capillary Refill : General Appearance: Other (UNKEMPT, APPEARS DROWSY--OVER-MEDICATED, SPEECH SLOW AND SOMEWHAT SLURRED/THICK TONGUED. ) Progress/Results/Core Measures Results/Orders Lab Results Laboratory Tests Test 08/14/17 20:03 08/14/17 20:15 Range/Units White Blood Count 9.0 4.3-11.0 10^3/uL Red Blood Count 4.65 4.35-5.85 10^6/uL Hemoglobin 13.4 13.3-17.7 G/DL Hematocrit 41 40-54 % Mean Corpuscular Volume 88 80-99 FL Mean Corpuscular Hemoglobin 29 25-34 PG Mean Corpuscular Hemoglobin Concent 33 32-36 G/DL Red Cell Distribution Width 13.8 10.0-14.5 % Platelet Count 268 130-400 10^3/uL Mean Platelet Volume 11.2 H 7.4-10.4 FL Neutrophils (%) (Auto) 54 42-75 % Lymphocytes (%) (Auto) 29 12-44 % Monocytes (%) (Auto) 12 0-12 % Eosinophils (%) (Auto) 5 0-10 % Basophils (%) (Auto) 0 0-10 % Neutrophils # (Auto) 4.8 1.8-7.8 X 10^3 Lymphocytes # (Auto) 2.6 1.0-4.0 X 10^3 Monocytes # (Auto) 1.0 0.0-1.0 X 10^3 Eosinophils # (Auto) 0.4 H 0.0-0.3 10^3/uL Basophils # (Auto) 0.0 0.0-0.1 10^3/uL Prothrombin Time 13.4 12.2-14.7 SEC INR Comment 1.0 0.8-1.4 Activated Partial Thromboplast Time 29 24-35 SEC Sodium Level 140 135-145 MMOL/L Potassium Level 4.2 3.6-5.0 MMOL/L Chloride Level 105 98-107 MMOL/L Carbon Dioxide Level 23 21-32 MMOL/L Anion Gap 12 5-14 MMOL/L Blood Urea Nitrogen 21 H 7-18 MG/DL Creatinine 0.96 0.60-1.30 MG/DL Estimat Glomerular Filtration Rate > 60 BUN/Creatinine Ratio 22 Glucose Level 76 70-105 MG/DL Calcium Level 9.3 8.5-10.1 MG/DL Magnesium Level 1.9 1.8-2.4 MG/DL Total Bilirubin 1.0 0.1-1.0 MG/DL Aspartate Amino Transf (AST/SGOT) 23 5-34 U/L Alanine Aminotransferase (ALT/SGPT) 11 0-55 U/L Alkaline Phosphatase 106 40-136 U/L Total Creatine Kinase 268 H 30-200 U/L Creatine Kinase MB 2.5 <6.6 NG/ML Troponin I < 0.30 <0.30 NG/ML B-Type Natriuretic Peptide 67.0 <100.0 PG/ML Total Protein 6.6 6.4-8.2 GM/DL Albumin 3.6 3.2-4.5 GM/DL Amylase Level 20 L 25-125 U/L Lipase < 4 L 8-78 U/L Serum Alcohol 16 H <10 MG/DL My Orders Orders - ADRIANWILFRED Brittanie DO Amylase (08/14/17 20:03) Cbc With Automated Diff (08/14/17 20:03) Comprehensive Metabolic Panel (08/14/17 20:03) Creatine Kinase (08/14/17 20:03) Creatine Kinase Mb (08/14/17 20:03) Lipase (08/14/17 20:03) Partial Thromboplastin Time (08/14/17 20:) Protime With Inr (08/14/17 20:03) Troponin I (08/14/17 20:03) Chest 1 View, Ap/Pa Only (08/14/17 20:03) O2 (08/14/17 20:03) Ekg Tracing (08/14/17 20:03) BNP (08/14/17 20:03) Monitor-Rhythm Ecg Trace Only (08/14/17 20:03) Magnesium (08/14/17 20:03) Alcohol (08/14/17 20:16) Saline Lock/Iv-Start (08/14/17 20:30) Forearm, 2 Views, Bilateral (08/14/17 20:03) Wrist,Bilat,3 Views Or More (08/14/17 20:03) Vital Signs/I&O Vital Sign - Last 12Hours 08/14/17 08/14/17 19:50 19:50 Temp 98.5 Pulse 77 Resp 12 B/P (MAP) 122/75 Pulse Ox 95 O2 Delivery Room Air Room Air Departure Communication (Admissions) Progress Notes 2054--SPOKE WITH DR. BHANDARI, ACCEPTS PT FOR ADMIT. WOULD LIKE CARDIOLOGY CONSULT 2104--SPOKE WITH DR. LOPEZ, ADVISES LASIX AND ECHOCARDIOGRAM IN AM Impression Impression: Primary Impression: Chest pain Additional Impressions: Generalized edema Cellulitis of left arm Status post fall BILATERAL WRIST AND FOREARM PAIN Disposition: ADMITTED INPATIENT Condition: Improved Admissions Decision to Admit Reason: Admit from ER (General) Decision to Admit/Date: Aug 14, 2017 Time/Decision to Admit Time: 21:00 Departure-Patient Inst. Referrals: NABILA LO MD (PCP/Family) Primary Care Physician Scripts Aspirin (Aspirin) 81 Mg Tab.chew 81 MG PO DAILY, #90 TAB 3 Refills Prov: JILLIAN LOPEZ MD FACP FACC CCDS 08/15/17 WILFRED CAMPBELL DO Aug 14, 2017 20:15
[2017-08-14 20:34] LABS: MEAN CORPUSCULAR HEMOGLOBIN 29 PG (25-34); MEAN CORPUSCULAR VOLUME 88 FL (80-99); PLATELET COUNT 268 10^3/uL (130-400); RED BLOOD COUNT 4.65 10^6/uL (4.35-5.85); RED CELL DISTRIBUTION WIDTH 13.8 % (10.0-14.5)
[2017-08-14 20:35] LABS: EOSINOPHILS # (AUTO) 0.4 10^3/uL (0.0-0.3); EOSINOPHILS % (AUTO) 5 % (0-10); LYMPHOCYTES # (AUTO) 2.6 X 10^3 (1.0-4.0); LYMPHOCYTES % (AUTO) 29 % (12-44); MEAN PLATELET VOLUME 11.2 FL (7.4-10.4); MONOCYTES % (AUTO) 12 % (0-12); NEUTROPHILS # (AUTO) 4.8 X 10^3 (1.8-7.8); NEUTROPHILS % (AUTO) 54 % (42-75)
[2017-08-14 20:42] LABS: PROTHROMBIN TIME PATIENT 13.4 SEC (12.2-14.7)
[2017-08-14 20:53] LABS: ALANINE AMINOTRANSFERASE 11 U/L (0-55); ALBUMIN 3.6 GM/DL (3.2-4.5); AMYLASE 20 U/L (25-125); ANION GAP 12 MMOL/L (5-14); ASPARTATE AMINO TRANSFERASE 23 U/L (5-34); BLOOD UREA NITROGEN 21 MG/DL (7-18); BUN/CREATININE RATIO 22; CALCIUM 9.3 MG/DL (8.5-10.1); CARBON DIOXIDE 23 MMOL/L (21-32); CHLORIDE 105 MMOL/L (98-107); CREATINE KINASE 268 U/L (30-200); CREATININE SERUM 0.96 MG/DL (0.60-1.30); GFR ESTIMATED > 60; GLUCOSE 76 MG/DL (70-105); LIPASE < 4 U/L (8-78); MAGNESIUM 1.9 MG/DL (1.8-2.4); POTASSIUM 4.2 MMOL/L (3.6-5.0); SODIUM 140 MMOL/L (135-145); TOTAL PROTEIN 6.6 GM/DL (6.4-8.2)
[2017-08-14 21:00] LABS: TROPONIN I < 0.30 NG/ML (<0.30)
--- NOTE | 2017-08-14 21:10 | Diagnostic Imaging Report ---
INDICATION: Nonresponsive. Will not answer questions. Some bruising to the forehead. TECHNIQUE: Single view chest, 8:41 p.m. CORRELATION STUDY: 02/23/2017. FINDINGS: Heart size is enlarged with presence of dual left-sided pacemaker. Vasculature is increased. The pulmonary arteries are prominent. Lung valdez demonstrate some patchy densities but without sander infiltrate. Asymmetric elevation of the right diaphragm. IMPRESSION: Cardiac enlargement with some degree of vascular congestion suggested. Central pulmonary artery prominence can be associated with pulmonary arterial hypertension. Dictated by: Dictated on workstation # [id number]
--- NOTE | 2017-08-14 21:16 | Diagnostic Imaging Report ---
INDICATION: Pain. TECHNIQUE: Two views of the bilateral forearms. CORRELATION STUDY: Right wrist, 02/16/2016. FINDINGS: Right forearm again demonstrates posttraumatic changes and deformity about the distal radius and ulna. No acute fracture of the forearm is suggested. Degenerative change is also noted about the distal humerus at the level of the capitellum. On the left, there is also deformity about the distal radius, likely owing to prior traumatic changes with significant flattening and loss of the normal articular surface. There is also rather significant degenerative changes at the proximal ulna and to a lesser degree radial head and distal humerus. No acute bony abnormality. IMPRESSION: 1. Negative for acute bony abnormality of either forearm. 2. There is, however, likely prior traumatic changes at the distal forearms, wrists and elbows. Dictated by: Dictated on workstation # [id number]
[2017-08-14] MEDS ORDERED: FUROSEMIDE 40 MG/4 ML INJ (LASIX) IVP ONE (21:30)
--- NOTE | 2017-08-14 21:32 | Diagnostic Imaging Report ---
INDICATION: Bilateral wrist pain, deformity. Unknown injury. TECHNIQUE: Three views of the bilateral wrists, 8:38 p.m. CORRELATION STUDY: Right wrist, 02/16/2016. FINDINGS: The left wrist demonstrates marked chronic type change about the distal radius and scaphoid. There is complete absence of the joint space. Some widening of the scapholunate interval. Overall volume loss of scaphoid which has a somewhat fragmented appearance. There is also marked chronic changes about the trapezium and trapezoid. Radial subluxation of the first metacarpal with cystic change and osteophyte formation. Cystic change and sclerosis of the distal radius as well. The right wrist also demonstrates chronic changes to be present. This includes likely prior fracture deformity and healing hypertrophy of the distal radius. Marked narrowing of the radiocarpal row. There is volume loss, cystic changes and sclerotic changes of the scaphoid. No acute bony abnormality. Likely ulnar styloid process fracture, ununited. IMPRESSION: Negative for acute bony abnormality of either wrist. Likely marked chronic traumatic and/or degenerative changes of the wrist. Dictated by: Dictated on workstation # [id number]
--- OUTSIDE RECORDS SUMMARY | 2017-08-14 21:41 | XMS REPORT | Clinical Summary ---
Author Author [facility] Organization [facility] Address Unknown Phone Unavailable Care Team Providers Care Vegetable Handler Name Role Phone PCP Unavailable Source Comments Some departments are not documenting in the electronic medical record. If you do not see the information that you expected, contact Release of Information in the Health Information Management department at [phone] for further assistance in locating additional records.[facility] Allergies Active Allergy Reactions Severity Noted [...] 13 daily. Active Problems Problem Noted Date MO (myocardial infarction) 04/04/2014 Pacemaker 04/04/2014 Asthma 04/04/2014 [...] Taken Blood Pressure 147/78 11/23/2012 8:30 AM AUTOMATION MACHINE OPERATOR Pulse 63 11/23/2012 8:30 AM AUTOMATION MACHINE OPERATOR Temperature 36.8 C (98.3 F) 11/23/2012 8:30 AM AUTOMATION MACHINE OPERATOR Respiratory Rate - - Oxygen Saturation 97% 11/23/2012 8:30 AM AUTOMATION MACHINE OPERATOR Inhaled Oxygen - - Concentration Weight 86.2 kg (190 lb) 11/19/2012 9:57 AM AUTOMATION MACHINE OPERATOR Height 172.7 cm (5' 8") 11/19/2012 9:57 AM AUTOMATION MACHINE OPERATOR Body Mass Index 28.89 11/19/2012 9:57 AM AUTOMATION MACHINE OPERATOR Plan of Treatment Health Maintenance Due Date Last Done Comments HEPATITIS C SCREENING 1952 PHYSICAL (COMPREHENSIVE) 1959 EXAM PERTUSSIS VACCINE 1963 TETANUS VACCINE 1969 COLORECTAL CANCER 2002 SCREENING SHINGLES VACCINE 2012 INFLUENZA VACCINE 05/26/2017 Results Not on filefrom Last 3 Months
--- OUTSIDE RECORDS SUMMARY | 2017-08-14 21:41 | XMS REPORT | Continuity of Care Document ---
Author Author [employer] Organization [facility] Address Unknown Phone Unavailable Care Team Providers Care Castings Trimmer Name Role Phone [employer] Unavailable Unavailable Problems Medications Allergies, Adverse Reactions, Alerts Immunizations Results Vital Signs Encounters Location Location Details Encounter Type Encounter Number Reason For Visit Attending Provider ADM Date DC Date Status Source OUTPATIENT [id number] ROXI COMBS 04/04/2014 04/04/2014 Active [facility] Procedures Plan of Care Social History Assessment and Plan Family History Value Date Source Advance Directives Order Name Results Value Date Source
[2017-08-14] MEDS ORDERED: NITROGLYCERIN 0.4 MG SL TABS BTL 25'S SL PRN (22:30)
[2017-08-14] MEDS ORDERED: morphine INJ 4 MG/ML 1 ML (VIAL/SYRINGE) IV PRN (22:30)
[2017-08-14] MEDS ORDERED: TRIM/SULFAMETH 160/800 (SEPTRA DS) TAB PO ONE (23:19)
[2017-08-15] VITALS (10 sets, daily range): BP systolic 86–154; BP diastolic 66–99
[2017-08-15 02:30] LABS: BASOPHILS # (AUTO) 0.1 10^3/uL (0.0-0.1); BASOPHILS % (AUTO) 1 % (0-10); EOSINOPHILS # (AUTO) 0.4 10^3/uL (0.0-0.3); EOSINOPHILS % (AUTO) 7 % (0-10); LYMPHOCYTES # (AUTO) 2.5 X 10^3 (1.0-4.0); LYMPHOCYTES % (AUTO) 37 % (12-44); MEAN CORPUSCULAR HEMOGLOBIN 29 PG (25-34); MEAN CORPUSCULAR HGB CONC 33 G/DL (32-36); MEAN CORPUSCULAR VOLUME 88 FL (80-99); MEAN PLATELET VOLUME 10.9 FL (7.4-10.4); MONOCYTES # (AUTO) 0.8 X 10^3 (0.0-1.0); MONOCYTES % (AUTO) 11 % (0-12); NEUTROPHILS % (AUTO) 44 % (42-75); PLATELET COUNT 255 10^3/uL (130-400); RED BLOOD COUNT 4.78 10^6/uL (4.35-5.85); RED CELL DISTRIBUTION WIDTH 13.9 % (10.0-14.5); WHITE BLOOD COUNT 6.8 10^3/uL (4.3-11.0)
[2017-08-15 02:49] LABS: BILIRUBIN,URINE NEGATIVE (NEGATIVE); KETONES,URINE NEGATIVE (NEGATIVE); LEUKOCYTE ESTERASE ,URINE 1+ (NEGATIVE); NITRITE,URINE NEGATIVE (NEGATIVE); PH,URINE 5 (5-9); PROTEIN,URINE NEGATIVE (NEGATIVE); UROBILINOGEN,URINE NORMAL (NORMAL)
[2017-08-15 03:00] LABS: ALANINE AMINOTRANSFERASE 11 U/L (0-55); ALBUMIN 3.6 GM/DL (3.2-4.5); ANION GAP 10 MMOL/L (5-14); ASPARTATE AMINO TRANSFERASE 21 U/L (5-34); BLOOD UREA NITROGEN 21 MG/DL (7-18); BUN/CREATININE RATIO 22; CALCIUM 9.4 MG/DL (8.5-10.1); CARBON DIOXIDE 27 MMOL/L (21-32); CHLORIDE 104 MMOL/L (98-107); CHOLESTEROL 198 MG/DL (< 200); CREATININE SERUM 0.96 MG/DL (0.60-1.30); DIRECT LDL 134 MG/DL (1-129); GFR ESTIMATED > 60; GLUCOSE 83 MG/DL (70-105); SODIUM 141 MMOL/L (135-145); TOTAL PROTEIN 6.6 GM/DL (6.4-8.2); TRIGLYCERIDES 80 MG/DL (<150); VLDL CHOLESTEROL 16 MG/DL (5-40)
[2017-08-15 03:08] LABS: MYOGLOBIN SERUM 90.9 NG/ML (10.0-92.0)
[2017-08-15] MEDS ORDERED: inSUlin (REGULAR) HUMAN 1 UNIT/0.01 ML (CHARGE PER UNIT) SC SCH ×2 (06:00)
[2017-08-15] MEDS ORDERED: TRIM/SULFAMETH 160/800 (SEPTRA DS) TAB PO SCH (07:00)
[2017-08-15] MEDS ORDERED: INFLUENZA TRIvalent 2017-2018 0.5 ML/45 MCG SYR IM ONE (07:30)
[2017-08-15] MEDS ORDERED: ASPIRIN E.C. 325 MG (ECOTRIN) TABLET PO SCH (09:00)
[2017-08-15] MEDS ORDERED: MUPIROCIN 2% OINT 22 GM (BACTROBAN) TUBE TOP SCH (09:00)
--- NOTE | 2017-08-15 09:43 | Diagnostic Imaging Report ---
INDICATION: Chest pain. Edema. FINDINGS: Pacer device in the left chest is stable. Heart size is enlarged but unchanged. Mild central venous congestion may be minimally improved from the prior study. There is no pneumothorax or pleural fluid suspected. Prominence of the central pulmonary arteries seen on the prior study has improved. There is elevation of the right hemidiaphragm which is unchanged. There are mild increased interstitial markings in the lungs bilaterally without focal pneumonia demonstrated. IMPRESSION: Stable cardiomegaly with mild central venous congestion. Venous congestion is somewhat improved from the recent prior study. No significant new abnormality is demonstrated. Dictated by: Dictated on workstation # [id number]
[2017-08-15] MEDS ORDERED: PATIENT MAY USE OWN MEDS, ALL MC SCH (09:45)
[2017-08-15] MEDS ORDERED: meTOproloL SUCCINATE 50 MG (TOPROL XL) TAB PO SCH (09:58)
[2017-08-15] MEDS ORDERED: APIXABAN 5 MG (ELIQUIS) TABLET PO SCH (09:58)
--- NOTE | 2017-08-15 12:10 | Consultation-Cardiology ---
HPI-Cardiology Cardiology Consultation: Date of Consultation 08/15/17 Time Seen by Provider: 11:30 Date of Admission Attending Physician Kirsten Sanz DO Admitting Physician Jonathan Beasley MD Consulting Physician JILLIAN LOPEZ MD, MA, FACP, FACC, [facility], CCDS Physician requesting consult: Dr Sanz HPI: Chief Complaint: Reason for consultation: chest discomfort 66 yo man who states he started to have chest pain and a feeling of shortness of breath after he scraped his arms while fixing window. The chest pain and shortness of breath lasted approx 15 min, resolved spontaneously and were not associated with other symptoms. He reports the chest discomfort was mild to mod , sharp to dull, and experienced in the lower mid chest and epigastric area. Has chronic bilat leg swelling. Is wheelchair-bound due to chronic hip problems. Does not report recent palp or syncope Review of Systems-Cardiology Review of Systems Constitutional: malaise, tiredness, No weight loss, No weight gain Eyes: No vision change Ears/Nose/Throat: No ear discharge, No nasal drainage, No recent hearing loss Respiratory: As described under HPI Cardiovascular: As described under HPI Gastrointestinal: No constipation, No diarrhea, No nausea, No vomiting Genitourinary: No dysuria, No hematuria Musculoskeletal: back pain (chronic), joint pain (chronic) Skin: No rash, No ulcerations Psychiatric/Neurological: No seizure, No syncope JXM-Cwobaw-Gqebha Hx Patient Social History Alcohol Use: Denies Use Recreational Drug Use: No (DENIES) Smoking Status: Current Everyday Smoker Type Used: Cigarettes 2nd Hand Smoke Exposure: Yes Recent Foreign Travel: No Recent Infectious Disease Expo: No Hospitalization with Isolation: Denies Physical Abuse Screen: No Sexual Abuse: No Immunizations Up To Date Tetanus Booster (TDap): More than 5yrs Date of Pneumonia Vaccine: Nov 08, 2012 Date of Influenza Vaccine: Jul 26, 2016 Past Medical History PMH As described under Assessment. Family Medical History Family Medical History: He reports a younger and older brother, both in their 60's, with CAD. Family History: Patient reports no known family medical history. Allergies and Home Medications Allergies Coded Allergies: codeine (Verified Allergy, Mild, HIVES...TAKES OXYCODONE & MS CONTIN AT HOME, 07/29/07) streptokinase (Verified Allergy, Unknown, 10/4/07) Home Medications Alprazolam 1 Mg Tablet, 1 MG PO TID PRN for ANXIETY, (Reported) Apixaban 5 Mg Tablet, 5 MG PO BID for 30 Days, Ref 3 Prescribed by: ANALY CLARK on 02/20/17 1339 Cyclobenzaprine HCl 10 Mg Tablet, 10 MG PO TID PRN for MUSCLE SPASMS, (Reported) Metoprolol Succinate 50 Mg Tab.er.24h, 50 MG PO DAILY for 30 Days, Ref 3 Prescribed by: ANALY CLARK on 02/20/17 1339 Morphine Sulfate 100 Mg Tablet.er, 200 MG PO BID, (Reported) TAKES 2 (100MG) TABLETS Nitroglycerin 0.4 Mg Tab.subl, 0.4 MG SL UD PRN for CHEST PAIN, (Reported) Polyethylene Glycol 3350 17 Gm Powd.pack, 17 GM PO DAILY PRN for CONSTIPATION- 2ND LINE, (Reported) Zolpidem Tartrate 10 Mg Tablet, 10 MG PO HS PRN for SLEEP, (Reported) Physical Exam-Cardiology Physical Exam Vital Signs/I&O Vital Sign - Last 12Hours 08/15/17 08/15/17 08/15/17 08/15/17 00:15 00:30 00:45 01:00 Pulse 60 60 60 60 B/P (MAP) 112/68 117/70 110/66 Pulse Ox 95 94 94 O2 Delivery Room Air Room Air Room Air 08/15/17 08/15/17 08/15/17 08/15/17 01:00 02:00 03:00 03:45 Temp 98.6 Pulse 60 61 64 B/P (MAP) 105/67 114/72 86/76 Pulse Ox 94 100 96 O2 Delivery Room Air Room Air Room Air 08/15/17 08/15/17 08/15/17 08/15/17 04:00 04:00 07:00 08:00 Pulse 60 60 B/P (MAP) 117/74 Pulse Ox 98 O2 Delivery Room Air Room Air Room Air Capillary Refill : Less Than 3 Seconds Constitutional: AAO x 3, well-developed, well-nourished HEENT: PERRL, EOMI, hearing is well preserved, No xanthelasmas are seen Neck: carotid pulses are 2 + bilaterally, with good upstrokes Respiratory: No accessory muscle use, lungs clear to percussion, lungs clear to auscultation Cardiovascular: regular rate-rhythm, systolic murmur (soft ISAAC at card base) Gastrointestinal: No tender, soft, No guarding, No rebound, audible bowel sounds Extremities: significant edema (bilat pitting leg edema, mod) Neurologic/Psychiatric: oriented x 3, grossly intact (but pt does not have much motion at hip joints) Skin: other (multiple abrasions on forearms) Data Review Labs Laboratory Tests 08/14/17 20:03: White Blood Count 9.0, Red Blood Count 4.65, Hemoglobin 13.4, Hematocrit 41, Mean Corpuscular Volume 88, Mean Corpuscular Hemoglobin 29, Mean Corpuscular Hemoglobin Concent 33, Red Cell Distribution Width 13.8, Platelet Count 268, Mean Platelet Volume 11.2H, Neutrophils (%) (Auto) 54, Lymphocytes (%) (Auto) 29 , Monocytes (%) (Auto) 12, Eosinophils (%) (Auto) 5, Basophils (%) (Auto) 0, Neutrophils # (Auto) 4.8, Lymphocytes # (Auto) 2.6, Monocytes # (Auto) 1.0, Eosinophils # (Auto) 0.4H, Basophils # (Auto) 0.0 08/14/17 20:15: Prothrombin Time 13.4, INR Comment 1.0, Activated Partial Thromboplast Time 29, Sodium Level 140, Potassium Level 4.2, Chloride Level 105, Carbon Dioxide Level 23, Anion Gap 12, Blood Urea Nitrogen 21H, Creatinine 0.96, Estimat Glomerular Filtration Rate > 60, BUN/Creatinine Ratio 22, Glucose Level 76, Calcium Level 9.3, Magnesium Level 1.9, Total Bilirubin 1.0, Aspartate Amino Transf (AST/SGOT ) 23, Alanine Aminotransferase (ALT/SGPT) 11, Alkaline Phosphatase 106, Total Creatine Kinase 268H, Creatine Kinase MB 2.5, Troponin I < 0.30, B-Type Natriuretic Peptide 67.0, Total Protein 6.6, Albumin 3.6, Amylase Level 20L, Lipase < 4L, Serum Alcohol 16H 08/15/17 02:12: White Blood Count 6.8, Red Blood Count 4.78, Hemoglobin 13.8, Hematocrit 42, Mean Corpuscular Volume 88, Mean Corpuscular Hemoglobin 29, Mean Corpuscular Hemoglobin Concent 33, Red Cell Distribution Width 13.9, Platelet Count 255, Mean Platelet Volume 10.9H, Neutrophils (%) (Auto) 44, Lymphocytes (%) (Auto) 37 , Monocytes (%) (Auto) 11, Eosinophils (%) (Auto) 7, Basophils (%) (Auto) 1, Neutrophils # (Auto) 3.0, Lymphocytes # (Auto) 2.5, Monocytes # (Auto) 0.8, Eosinophils # (Auto) 0.4H, Basophils # (Auto) 0.1, Sodium Level 141, Potassium Level 4.0, Chloride Level 104, Carbon Dioxide Level 27, Anion Gap 10, Blood Urea Nitrogen 21H, Creatinine 0.96, Estimat Glomerular Filtration Rate > 60, BUN /Creatinine Ratio 22, Glucose Level 83, Calcium Level 9.4, Total Bilirubin 1.0, Aspartate Amino Transf (AST/SGOT) 21, Alanine Aminotransferase (ALT/SGPT) 11, Alkaline Phosphatase 108, Troponin I < 0.30, Total Protein 6.6, Albumin 3.6, Myoglobin 90.9, Triglycerides Level 80, Cholesterol Level 198, LDL Cholesterol Direct 134H, VLDL Cholesterol 16, HDL Cholesterol 52 08/15/17 02:40: Urine Color YELLOW, Urine Clarity CLEAR, Urine pH 5, Urine Specific [place] 1.015L, Urine Protein NEGATIVE, Urine Glucose (UA) NEGATIVE, Urine Ketones NEGATIVE, Urine Nitrite NEGATIVE, Urine Bilirubin NEGATIVE, Urine Urobilinogen NORMAL, Urine Leukocyte Esterase 1+H, Urine RBC (Auto) NEGATIVE, Urine RBC NONE , Urine WBC NONE, Urine Squamous Epithelial Cells 2-5, Urine Crystals NONE, Urine Bacteria NEGATIVE, Urine Casts NONE, Urine Mucus SMALLH, Urine Culture Indicated NO, Urine Opiates Screen POSITIVEH, Urine Oxycodone Screen NEGATIVE, Urine Methadone Screen NEGATIVE, Urine Propoxyphene Screen NEGATIVE, Urine Barbiturates Screen NEGATIVE, Ur Tricyclic Antidepressants Screen NEGATIVE, Urine Phencyclidine Screen NEGATIVE, Urine Amphetamines Screen NEGATIVE, Urine Methamphetamines Screen NEGATIVE, Urine Benzodiazepines Screen POSITIVEH, Urine Cocaine Screen NEGATIVE, Urine Cannabinoids Screen NEGATIVE 08/15/17 08:12: Troponin I < 0.30 Laboratory Tests 08/14/17 20:03 08/14/17 20:15 08/15/17 02:12 ECG Impression ECG Comment ECG on 08/14 & 08/15/17: Paced atrial rhythm w/o evidence of ischemia of infarction A/P-Cardiology Assessment/Admission Diagnosis Chest pain w/o any evidence of ACS Hospitalization to Dr aSnz's service with injury/cellulitis to forearms on , being managed by Dr Sanz H/o inadvertent narcotic overuse twice in 2016 PAF Pacemaker implantation by Dr. Bennett on 06-03-2012 d/t bradycardia and documented pauses of up to 3.2 seconds - functioning normally on last interrogation of February 20, 2017 H/o chest pain syndrome, currently stable. Last MPI of March 2016 showed no evidence of any significant myocardial ischemia or infarction on this study. Normal regional wall motion. Normal global left ventricular systolic function with a calculated ejection fraction of 78%. Normal global left ventricular systolic function with an ejection fraction of approximately 60%. Mild mitral and tricuspid regurgitation. No evidence of significant valvular stenosis. Per echocardiogram of March 2016 Cardiac cath of 03/[address] Ascencio showed mild CAD, lesion to the mid Cx of approx 50%. LVEF 60%. Normal LVEDP H/o avascular necrosis of the hips Reported h/o hip replacements Polysubstance use for pain control - managed by his PCP Dr. Beasley GERD COPD Prior h/o tobaccoism HTN Anxiety and Depression Discussion and Recomendations * I reviewed his records and discussed cor risk factor mod with him * He has been noncompliant with pacemaker f/u. I educated him on the importance of compliance * Outpatient card f/u is being arranged * Current regimen consisting of bb (for vent rate control) and apixaban (for stroke prophylaxis) appears appropriate * I educated him on the rationale for his card meds and their pros and cons, and advised compliance Clinical Quality Measures AMI/AHF: ASA po Prior to arrival: No DVT/VTE Risk/Contraindication: Risk Factor Score Per Nursin RFS Level Per Nursing on Admit: 4+=Very High JILLIAN LOPEZ MD FACP [facility] CCDS Aug 15, 2017 12:10
--- NOTE | 2017-08-15 12:13 | Short Stay Summary-Hospitalist ---
HPI History of Present Illness: HPI/Chief Complaint CC: Chest pain HPI: This is a 66-year-old white male clinic patient of Dr. Beasley that has a history of chronic pain and multiple comorbidities the presents to the ER with complaints of vague chest pain. He was admitted for observation and all troponins have been negative so I'm consulted cardiology for risk stratification. He reports he has not had any more chest pain once to go home and overall does not need any refills on his medication and feels like his medication works well for him. He does have a ride home and has a support system. Source: patient, RN/MD Date Seen 08/15/17 Time Seen by Provider: 11:00 Attending Physician Kirsten Sanz Douglas K MD Referring Physician Date of Admission Aug 14, 2017 at 21:00 Home Medications & Allergies Home Medications Reviewed patient Home Medication Reconciliation Form Allergies Allergies Coded Allergies codeine (Verified Allergy, Mild, HIVES...TAKES OXYCODONE & MS CONTIN AT HOME, 07/29/07) streptokinase (Verified Allergy, Unknown, 07/29/07) Past Qjpaxoe-Qcbnft-Feskef Hx Patient Social History Marrital Status: single Employed/Student: unemployed Alcohol Use: Denies Use Number of Drinks Today: GG Alcohol Beverage of Choice: Whiskey Recreational Drug Use: No (DENIES) Smoking Status: Current Everyday Smoker Former Smoker, Quit: May 30, 2014 Type Used: Cigarettes 2nd Hand Smoke Exposure: Yes Physical Abuse Screen: No Sexual Abuse: No Recent Foreign Travel: No Contact w/other who traveled: No Recent Hopitalizations: No Recent Infectious Disease Expo: No Immunizations Up To Date Tetanus Booster (TDap): More than 5yrs Pediatric: No Date of Pneumonia Vaccine: Nov 08, 2012 Date of Influenza Vaccine: Jul 26, 2016 Seasonal Allergies Seasonal Allergies: No Surgeries Yes (22 HIP SURGERIES) Abdominal, Appendectomy, Cardiac, Defibrillator, Joint Replacement, Orthopedic, Pacemaker Respiratory Yes (PT INTUBATED IN PAST DUE TO OVERDOSES/ETOH ) COPD Currently Using CPAP: No Currently Using BIPAP: No Cardiovascular Yes (PACEMAKER, CARDIAC ARREST, SELF - REPORTED VT X 8) Chronic Edema/Swelling, Coronary Artery Disease, Heart Attack, Hypertension, Irregular Heartbeat Neurological No Reproductive System Hx Reproductive Disorders: No Sexually Transmitted Disease: No HIV/AIDS: No Genitourinary Yes Neurogenic Bladder Gastrointestinal Yes Abdominal Hernia Musculoskeletal Yes (no hip joints related to sx) Arthritis, Chronic Back Pain, Fractures Endocrine History of Endocrine Disorders: Yes (OBESITY) Endocrine Disorders: Diabetes, Insulin dep HEENT HEENT Disorders: Dysphagia Loss of Vision: Denies Hearing Impairment: Hard of Hearing Cancer No Psychosocial History of Psychiatric Problem: Yes (ALCOHOL/POLYSUBSTANCE ABUSE/OVERDOSES- INTUBATED 2012, INCARCERATIONS) Behavioral Health Disorders: Suicide Attempts, Depression Integumentary History of Skin or Integumenta: No Blood Transfusions History of Blood Disorders: No Family Medical History Significant Family History: No Pertinent Family Hx Family Hx: Patient reports no known family medical history. Review of Systems Constitutional: see HPI EENTM: no symptoms reported Respiratory: short of breath Cardiovascular: chest pain Gastrointestinal: no symptoms reported Genitourinary: no symptoms reported Musculoskeletal: back pain Skin: no symptoms reported Psychiatric/Neurological: No Symptoms Reported All Other Systems Reviewed Negative Unless Noted: Yes Physical Exam Physical Exam Vital Signs Vital Sign - Last 12Hours 08/14/17 19:50 Temp 98.5 Pulse 77 Resp 12 B/P (MAP) 122/75 Pulse Ox 95 O2 Delivery Room Air Capillary Refill : Less Than 3 Seconds General Appearance: No Apparent Distress, WD/WN, Chronically ill, Obese Eyes: Bilateral Eye Normal Inspection, Bilateral Eye PERRL HEENT: PERRL/EOMI, Normal ENT Inspection, Pharynx Normal Neck: Full Range of Motion, Normal Inspection, Non Tender, Supple, Carotid Bruit Respiratory: Chest Non Tender, Lungs Clear, Normal Breath Sounds, No Accessory Muscle Use, No Respiratory Distress Cardiovascular: No Edema, No Gallop, No JVD, No Murmur, Normal Peripheral Pulses, Irregularly Irregular Gastrointestinal: Normal Bowel Sounds, No Organomegaly, No Pulsatile Mass, Non Tender, Soft Back: Normal Inspection, No CVA Tenderness, No Vertebral Tenderness Extremity: Normal Capillary Refill, Normal Inspection, Normal Range of Motion, Non Tender, No Calf Tenderness, No Pedal Edema, Other (muscle wasting legs) Neurologic/Psychiatric: Alert, Oriented x3, No Motor/Sensory Deficits, Normal Mood/Affect Skin: Normal Color, Warm/Dry Lymphatic: No Adenopathy Results Results/Procedures Lab Laboratory Tests 08/14/17 20:03 08/14/17 20:15 08/15/17 02:12 Short Stay Diagnosis Discharge Diagnosis-Short Stay Admission Diagnosis Chest pain of uncertain source with negative cardiac w/u ETOH intoxication Chronic hip pain Smoker Chest pain chronic Final Discharge Diagnosis Chest pain of uncertain source with negative cardiac w/u ETOH intoxication Chronic hip pain Smoker Chest pain chronic Conclusion Plan Plan: Smoking cessation Alcohol consumption cessation Cardiac risk factor stratification appreciated by cardiology Discharge home if okay with cardiology Clinical Quality Measures AMI/AHF: ASA po Prior to arrival: No DVT/VTE Risk/Contraindication: Risk Factor Score Per Nursin RFS Level Per Nursing on Admit: 4+=Very High KIRSTEN SANZ DO Aug 15, 2017 12:13
[2017-08-15] MEDS ORDERED: POLYETHYLENE GLYCOL 17 GM (MIRALAX) PACK PO PRN (12:15)
[2017-08-15] MEDS ORDERED: NITROGLYCERIN 0.4 MG SL TABS BTL 25'S SL PRN (12:15)
[2017-08-15] MEDS ORDERED: CYCLOBENZAPRINE 10 MG (FLEXERIL) TAB PO PRN (12:15)
[2017-08-15] MEDS ORDERED: ALPRAZolam 1 MG (XANAX) TAB PO PRN (12:15)
[2017-08-15] MEDS ORDERED: ASPI-999 PO (12:27)
[2017-08-15] MEDS ORDERED: ZOLPIDEM 5 MG (AMBIEN) TAB PO PRN (12:30)
[2017-08-15] MEDS ORDERED: morphine ER 100 MG (MS CONTIN) TAB PO SCH (21:00)
== END 2017-08-15 12:44 | disposition home or self-care (01) ==
LOC: EDUNIT# 19:49 → ER 19:50 → UNDOADMOB 21:00 → ICU 21:00 → UNDODISOB 08-15 13:25
PROVIDERS: ADMIT Internal Medicine; ATTEND Internal Medicine
DX: R07.9 Chest pain, unspecified (principal); L03.114 Cellulitis of left upper limb; S69.91XA Unspecified injury of right wrist, hand and finger(s), initial encounter; S69.92XA Unspecified injury of left wrist, hand and finger(s), initial encounter; F10.129 Alcohol abuse with intoxication, unspecified; Y90.6 Blood alcohol level of 120-199 mg/100 ml; I10 Essential (primary) hypertension; I25.2 Old myocardial infarction; E11.9 Type 2 diabetes mellitus without complications; J44.9 Chronic obstructive pulmonary disease, unspecified; K21.9 Gastro-esophageal reflux disease without esophagitis; E66.9 Obesity, unspecified; F17.210 Nicotine dependence, cigarettes, uncomplicated; Z79.82 Long term (current) use of aspirin; Z79.4 Long term (current) use of insulin; Z79.01 Long term (current) use of anticoagulants; Z79.899 Other long term (current) drug therapy; Z95.0 Presence of cardiac pacemaker; Z99.3 Dependence on wheelchair; W05.0XXA Fall from non-moving wheelchair, initial encounter; Y92.009 Unspecified place in unspecified non-institutional (private) residence as the place of occurrence of the external cause; Y99.8 Other external cause status
CPT/HCPCS: 36415; 71010; 80053; 80061; 80306; 80320; 81000; 82150; 82550; 82553; 83690; 83735; 83874; 83880; 84484; 85025; 85610; 85730; 93005; 93041; 93306; 96365

== ENCOUNTER 2017-09-12 18:16 | Emergency (ER) | payer MEDICARE, MEDICAID ==
[~2017-09-12] VITALS: Ht 172.7 cm; Wt 90.3 kg
--- OUTSIDE RECORDS SUMMARY | 2017-09-12 18:22 | XMS REPORT | Continuity of Care Document ---
Author Author [employer] Organization [facility] Address Unknown Phone Unavailable Care Team Providers Care Delinquent Account Clerk Name Role Phone [employer] Unavailable Unavailable Problems Medications Allergies, Adverse Reactions, Alerts Immunizations Results Vital Signs Encounters Location Location Details Encounter Type Encounter Number Reason For Visit Attending Provider ADM Date DC Date Status Source OUTPATIENT [id number] ROXI COMBS 04/04/2014 04/04/2014 Active [facility] Procedures Plan of Care Social History Assessment and Plan Family History Value Date Source Advance Directives Order Name Results Value Date Source
--- OUTSIDE RECORDS SUMMARY | 2017-09-12 18:23 | XMS REPORT | Clinical Summary ---
Author Author [facility] Organization [facility] Address Unknown Phone Unavailable Care Team Providers Care Spanish Lecturer Name Role Phone PCP Unavailable Source Comments Some departments are not documenting in the electronic medical record. If you do not see the information that you expected, contact Release of Information in the Health Information Management department at [phone] for further assistance in locating additional records.[facility] Allergies Active Allergy Reactions Severity Noted Date [...] Problems Problem Noted Date [place] (myocardial infarction) 04/04/2014 Pacemaker 04/04/2014 Asthma 04/04/2014 [...] Taken Blood Pressure 147/78 11/23/2012 8:30 AM ENTERTAINMENT LAWYER Pulse 63 11/23/2012 8:30 AM ENTERTAINMENT LAWYER Temperature 36.8 C (98.3 F) 11/23/2012 8:30 AM ENTERTAINMENT LAWYER Respiratory Rate - - Oxygen Saturation 97% 11/23/2012 8:30 AM ENTERTAINMENT LAWYER Inhaled Oxygen - - Concentration Weight 86.2 kg (190 lb) 11/19/2012 9:57 AM ENTERTAINMENT LAWYER Height 172.7 cm (5' 8") 11/19/2012 9:57 AM ENTERTAINMENT LAWYER Body Mass Index 28.89 11/19/2012 9:57 AM ENTERTAINMENT LAWYER Plan of Treatment Health Maintenance Due Date Last Done Comments HEPATITIS C SCREENING 1952 PHYSICAL (COMPREHENSIVE) 1959 EXAM PERTUSSIS VACCINE 1963 TETANUS VACCINE 1969 COLORECTAL CANCER 2002 SCREENING SHINGLES VACCINE 2012 INFLUENZA VACCINE 05/26/2017 Results Not on filefrom Last 3 Months
--- NOTE | 2017-09-12 18:31 | ED Lower Extremity ---
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 HOWEVER, PT STATES THAT HE HAS HARDLY ANY FEELING IN EITHER ONE OF HIS FEET, AND HAS BEEN THAT WAY FOR A LONG TIME PCP: DR. LO TRAVELING OPERATOR: DR. SQUIRES Allergies and Home Medications Allergies Coded Allergies: codeine (Verified Allergy, Mild, HIVES...TAKES OXYCODONE & MS CONTIN AT HOME, 07/29/07) streptokinase (Verified Allergy, Unknown, 07/29/07) Home Medications Alprazolam 1 Mg Tablet, 1 MG PO TID PRN for ANXIETY, (Reported) Apixaban 5 Mg Tablet, 5 MG PO BID for 30 Days, Ref 3 Prescribed by: ANALY CLARK on 02/20/17 1339 Aspirin 81 Mg Tab.chew, 81 MG PO DAILY, #90 Ref 3 Prescribed by: JILLIAN LOPEZ on 08/15/17 1227 Cyclobenzaprine HCl 10 Mg Tablet, 10 MG PO TID PRN for MUSCLE SPASMS, (Reported) Metoprolol Succinate 50 Mg Tab.er.24h, 50 MG PO DAILY for 30 Days, Ref 3 Prescribed by: ANALY CLARK on 02/20/17 1339 Morphine Sulfate 100 Mg Tablet.er, 200 MG PO BID, (Reported) TAKES 2 (100MG) TABLETS Nitroglycerin 0.4 Mg Tab.subl, 0.4 MG SL UD PRN for CHEST PAIN, (Reported) Polyethylene Glycol 3350 17 Gm Powd.pack, 17 GM PO DAILY PRN for CONSTIPATION- 2ND LINE, (Reported) Zolpidem Tartrate 10 Mg Tablet, 10 MG PO HS PRN for SLEEP, (Reported) Constitutional: no symptoms reported Musculoskeletal: see HPI Skin: no symptoms reported Psychiatric/Neurological: No Symptoms Reported Past Opgskdz-Emtuqn-Mynllb Hx Patient Social History Alcohol Use: Regular Use (HEAVY USE/ABUSE) Alcohol Beverage of Choice: Whiskey Recreational Drug Use: Yes (EXTENSIVE HISTORY OF NARCOTIC + BENZO ABUSE AND OVERDOSES AND HAS REQUIRED INTUBATION IN THE PAST DUE TO ABUSE OF THESE + ALCOHOL) Smoking Status: Current Everyday Smoker (2 1/2 PPD) Type Used: Cigarettes 2nd Hand Smoke Exposure: Yes Recent Hopitalizations: No Immunizations Up To Date Tetanus Booster (TDap): More than 5yrs PED Vaccines UTD: No Date of Pneumonia Vaccine: Nov 08, 2012 Date of Influenza Vaccine: Jul 26, 2016 Seasonal Allergies Seasonal Allergies: No Surgeries History of Surgeries: Yes (PT CLAIMS 22 HIP /PELVIC SURGERIES--11 ON EACH HIP, PER PT. BOTH HIP JOINTS PERMANENTLY REMOVED DUE TO REPEATED FAILED SURGERIES; EGD; HERNIA REPAIR; CARDIAC CATHS; LEFT KNEE SURGERY-PATELLA FX/TORN MENISCUS; BACK SURGERY; RIGHT WRIST FX/ORIF; BILATERAL WRIST SURGERIES; ELBOW SURGERY) Surgeries: Abdominal, Appendectomy, Cardiac, Defibrillator, Joint Replacement, Orthopedic, Pacemaker Respiratory History of Respiratory Disorde: Yes (PT INTUBATED IN PAST DUE TO OVERDOSES/ ETOH ) Respiratory Disorders: COPD Currently Using CPAP: No Currently Using BIPAP: No Cardiovascular History of Cardiac Disorders: Yes (PACEMAKER, CARDIAC ARREST, SELF - REPORTED [place] X 8) Cardiac Disorders: Chronic Edema/Swelling, Coronary Artery Disease, Heart Attack, Hypertension, Irregular Heartbeat Neurological History of Neurological Disord: Yes (NO PHYSICIAN DOCUMENTATION OF PERIPHERAL NEUROPATHY, BUT PT STATES HIS FEET HAVE BEEN NUMB FOR A LONG TIME. ) Neurological Disorders: Neuropathy Reproductive System Hx Reproductive Disorders: No Sexually Transmitted Disease: No HIV/AIDS: No Genitourinary History of Genitourinary Disor: Yes (PT SELF-CATH'S ) Genitourinary Disorders: Neurogenic Bladder Gastrointestinal History of Gastrointestinal Di: Yes Gastrointestinal Disorders: Abdominal Hernia Musculoskeletal History of Musculoskeletal Dis: Yes (MULTIPLE FAILED BILATERAL HIP REPLACEMENTS , NOW WITH PERMANENT REMOVAL OF HIP JOINTS AND HARDWARE--DUE TO AVASCULAR NECROSIS OF HIPS; PT IS WHEELCHAIR-BOUND AND NON-AMBULATORY; MULTIPLE FRACTURES AND OTHER ORTHO SURGERIES; CHRONIC GENERALIZED PAIN COMPLAINTS-NARCOTIC DEPENDENT) Musculoskeletal Disorders: Arthritis, Chronic Back Pain, Fractures Endocrine History of Endocrine Disorders: Yes (OBESITY) Endocrine Disorders: Diabetes, Insulin dep HEENT History of HEENT Disorders: Yes HEENT Disorders: Dysphagia Loss of Vision: Denies Hearing Impairment: Hard of Hearing Cancer History of Cancer: No Psychosocial History of Psychiatric Problem: Yes (ALCOHOL/POLYSUBSTANCE ABUSE/OVERDOSES- INTUBATED 2012, INCARCERATIONS) Behavioral Health Disorders: Suicide Attempts, Depression Integumentary History of Skin or Integumenta: No Blood Transfusions History of Blood Disorders: No Family Medical History Family Medial History: Patient reports no known family medical history. Physical Exam Vital Signs Vital Sign - Last 12Hours 09/12/17 18:16 Temp 97.3 Pulse 73 Resp 18 B/P (MAP) 119/73 Capillary Refill : General Appearance: WD/WN, no apparent distress, obese, other (UNKEMPT, FAINT ODOR OF ETOH, SPEECH SLOW AND SOMEWHAT THICK-TONGUED--NORMAL FOR PT. REEKS OF CIGARETTES) Hips: bilateral hip non-tender Legs: bilateral leg non-tender Knees: bilateral knee non-tender Ankles: left ankle other (MEDIAL ASPECT OF LEFT ANKLE WITH TENDERNESS, ERYTHEMA , EARLY BRUISING AND ENTIRE ANKLE WITH 4+ EDEMA. RIGHT ANKLE WITH 3+ EDEMA) Feet: left foot non-tender Neurologic/Tendon: normal sensation, normal motor functions, normal tendon functions Neurologic/Psychiatric: slab off mill tender II-XII nml as tested, no motor/sensory deficits, alert, normal mood/affect ( ABOVE-THIS IS NORMAL PRESENTATION FOR PT. ), oriented x 3 Skin: normal color, warm/dry, other (PT WITH EXTENSIVE SORES TO BILATERAL FOREARMS FROM PICKING/SCRATCHING. ) Progress/Results/Core Measures Results/Orders My Orders Orders - WILFRED CAMPBELL DO Ankle, Left, 3 Views (09/12/17 18:22) Ct Extremity Lower Left Wo (09/12/17 18:41) Vital Signs/I&O Vital Sign - Last 12Hours 09/12/17 18:16 Temp 97.3 Pulse 73 Resp 18 B/P (MAP) 119/73 Diagnostic Imaging Comments XRAYS LEFT ANKLE--SOFT TISSUE SWELLING ANTERIORLY, OTHERWISE NO ACUTE PROCESS, PER RADIOLOGIST REPORT @ 1906 CT LEFT LOWER EXTREMITY--NO ACUTE BONY INJURY, ARTHRITIC CHANGES, EDEMA OF SOFT TISSUES--PER RADIOLOGIST REPORT @ 1933 Reviewed: Reviewed by Me Departure Impression Impression: Primary Impression: Contusion of left ankle, initial encounter Disposition: 01 HOME, SELF-CARE Condition: Stable Departure-Patient Inst. Referrals: NABILA LO MD (PCP/Family) Primary Care Physician Patient Instructions: Ankle Sprain (DC), Contusion (DC) Add. Discharge Instructions: SHAE WRAP TO ANKLE FOR PAIN AND SWELLING ELEVATE LEFT LEG MUCH POSSIBLE TAKE YOUR HOME PAIN MEDICATIONS PRESCRIBED FOLLOW UP WITH DR. LO IN 7-10 DAYS IF NO BETTER WILFRED CAMPBELL DO Sep 12, 2017 18:31
--- NOTE | 2017-09-12 19:02 | Diagnostic Imaging Report ---
EXAM: ANKLE, LEFT, 3 VIEWS INDICATION: Left ankle injury and pain. COMPARISON: None. FINDINGS: Demineralization. Moderate degenerative changes in the left ankle. No acute osseous findings. Soft tissue prominence about the anterior left ankle. IMPRESSION: No acute osseous findings in the left ankle. Soft tissue prominence of the left ankle anteriorly. Dictated by: Dictated on workstation # [id number]
--- NOTE | 2017-09-12 19:28 | Diagnostic Imaging Report ---
PROCEDURE: CT left lower extremity without contrast. TECHNIQUE: Multiple contiguous axial images were obtained through the left lower extremity without the use of intravenous contrast. Sagittal and coronal reformations were then performed. INDICATION: Dropped pressure cooker on left ankle. Swelling and pain. COMPARISON: Left ankle radiographs from earlier today. FINDINGS: Examination is mildly limited by positioning. There are moderate to advanced degenerative changes including marked sclerosis within the talar dome, talonavicular and talocalcaneal articulations which are chronic. No acute fractures. Moderate edema within the subcutaneous tissues of the left lower extremity. No discrete fluid collections or hematomas. IMPRESSION: 1. No acute osseous findings in the left ankle. 2. Edema within the subcutaneous soft tissues without a focal fluid collection. 3. Moderate to advanced degenerative changes in the left ankle and hindfoot. Dictated by: Dictated on workstation # [id number]
[2017-09-12 19:48] VITALS: BP 119/77
== END 2017-09-12 19:47 | disposition home or self-care (01) ==
LOC: EDUNIT# 18:16 → ER 18:17
DX: S90.02XA Contusion of left ankle, initial encounter (principal); E11.40 Type 2 diabetes mellitus with diabetic neuropathy, unspecified; J44.9 Chronic obstructive pulmonary disease, unspecified; I25.10 Atherosclerotic heart disease of native coronary artery without angina pectoris; I25.2 Old myocardial infarction; I10 Essential (primary) hypertension; E66.9 Obesity, unspecified; M19.90 Unspecified osteoarthritis, unspecified site; F32.9 Major depressive disorder, single episode, unspecified; F17.210 Nicotine dependence, cigarettes, uncomplicated; Z91.14 Patient's other noncompliance with medication regimen; Z91.5 Personal history of self-harm; Z79.01 Long term (current) use of anticoagulants; Z87.448 Personal history of other diseases of urinary system; Z79.82 Long term (current) use of aspirin; Z90.49 Acquired absence of other specified parts of digestive tract; Z95.810 Presence of automatic (implantable) cardiac defibrillator; Z87.19 Personal history of other diseases of the digestive system; W20.8XXA Other cause of strike by thrown, projected or falling object, initial encounter
CPT/HCPCS: 73610; 73700; 99283

== ENCOUNTER 2018-06-22 21:45 | Inpatient (IN) | payer MEDICARE, MEDICAID ==
[~2018-06-22] VITALS: Ht 165.1 cm; Wt 90.0 kg
--- OUTSIDE RECORDS SUMMARY | 2018-06-22 21:50 | XMS REPORT ---
Author Author OLEGARIO ROSENTHAL Organization [facility] Address [address] [place] [address] Care Team Providers Care Manager Long Term Care Name Role Phone OLEGARIO ROSENTHAL Unavailable PROBLEMS Type Condition ICD9-CM Code [id number] Code Onset Dates Condition Status SNOMED Code Problem Pain in left hip M25.552 Active 40551643 Problem Chronic pain syndrome G89.4 Active 189865577 Problem Pain in right hip M25.551 Active 78672204 Problem Venous stasis I87.8 Active 66336039 Problem Other proteinuria R80.8 Active 41653069 Problem Arthritis M19.90 Active 4335300 Problem Chronic obstructive pulmonary disease, unspecified COPD type J44.9 Active 18148500 Problem Low back pain M54.5 Active 435348323 Problem Other chronic pain G89.29 Active 69695792 ALLERGIES No Information ENCOUNTERS Encounter Location Date Diagnosis [place] [address] [address] May, [place] [address] [place] [id number] [place] [address]111 May, Venous stasis I87.8 ; Bronchitis J40 ; Other proteinuria R80.8 ; Chronic pain syndrome G89.4 and BMI 50.0-59.9, adult Z68.43 [place] [address] [place] [id number] [place] [address]- [address] May, Chronic pain syndrome G89.4 [place] [address] [address] Apr, Venous stasis I87.8 [place] [address] [address] [id number] [place] [address] 71096- 7[address] Apr, [place] [address] [place] [address] Apr, Chronic pain syndrome G89.4 [facility] [address] [id number] [place] [address] 81553- 9839 Apr, Localized edema R60.0 and Other proteinuria R80.8 [facility] [address] [place] [address] [id number] [place] [address] 69494- 3668 Apr, Chronic pain syndrome G89.4 [facility] [address] [address] [id number] [place] [address] 04707- 3798 Mar, Chronic pain syndrome G89.4 [facility] [address] [place] [address] [id number] [place] [address] 48327- 6609 Mar, Chronic pain syndrome G89.4 [facility] [address] [place] [id number] [place] [address]- [address] February, Low back pain M54.5 ; Other chronic pain G89.29 ; Arthritis M19.90 and Drug-induced constipation K59.03 [facility] [address] [place] [id number] [place] [address] 30792- [address]18 February, [facility] [address] [place] [address] [id number] [place] [address] 16189- 6580 February, Chronic pain syndrome G89.4 [facility] [address] [place] [id number] [place] [address] 14754- 6055 February, Chronic pain syndrome G89.4 [facility] [address] [place] [id number] [place] [address] 29661- 1435 February, [facility] [address] [place] [id number] [place] [address] 05254- 1239 Jan, Chronic pain syndrome G89.4 [facility] [address] [place] [address] [id number] [place] [address] 43268- 6320 Dec, [facility] [address] [place] [id number] [place] [address] 90027- 5702 Dec, Chronic pain syndrome G89.4 ; Arthritis M19.90 ; Chronic obstructive pulmonary disease, unspecified COPD type J44.9 and Labile hypertension R09.89 [place] [address] [id number] [place] [address] 03271- 4427 Dec, Chronic pain syndrome G89.4 [facility] [address] [place] [id number] [place] [address] 67220- 1092 Dec, [facility] [address] [place] [id number] [place] [address] 68391- 9819 Nov, [facility] [address] [place] [id number] [place] [address] 43401- 4774 Nov, Chronic pain syndrome G89.4 [facility] [address] [place] [id number] [place] [address] 77387- 4859 Oct, Chronic pain syndrome G89.4 [place] [address] [id number] [place] [address] 74239- 0654 Oct, Chronic pain syndrome G89.4 [facility] [address] [place] [id number] [place] [address] 98605- 6533 Oct, Chronic pain syndrome G89.4 [place] [address] [id number] [place] [address] 02087- 2272 Oct, Chronic pain syndrome G89.4 ; Pain in right hip M25.551 ; Pain in left hip M25.552 and Chronic obstructive pulmonary disease, unspecified COPD type J44.9 [place] [address] [place] [address] 020[address]- [address] Sep, [place] [address] [place] [id number] [place] [address] 29827- 9858 Jun, [place] [address] [place] [id number] [place] [address] 23950- 1856 Jun, IMMUNIZATIONS No Known Immunizations SOCIAL HISTORY Never Assessed REASON FOR VISIT Morphine due 04/13 PLAN OF CARE VITAL SIGNS MEDICATIONS Medication Instructions Dosage Frequency Start Date End Date Duration Status Morphine Sulfate ER 100 mg Orally 2 times a day 2 tablet 12h 18 Mar, 2018 28 days Active RESULTS No Results PROCEDURES No Known procedures INSTRUCTIONS MEDICATIONS ADMINISTERED No Known Medications MEDICAL (GENERAL) HISTORY Type Description Date Medical History avascular necrosis Medical History pacemaker 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
--- OUTSIDE RECORDS SUMMARY | 2018-06-22 21:50 | XMS REPORT | Clinical Summary ---
Author Author [facility] Organization [facility] Address Unknown Phone Unavailable Care Team Providers Care Commuter Pilot Name Role Phone Traci Mota MD Unavailable Jonathan Beasley MD PCP Jaja Lujan MD Unavailable Skylar Stevens PA-C Unavailable Source Comments Some departments are not documenting in the electronic medical record. If you do not see the information that you expected, contact Release of Information in the Health Information Management department at [phone] for further assistance in locating additional records.[facility] Allergies Active Allergy Reactions Severity Noted [...] Taken Blood Pressure 147/78 11/23/2012 8:30 AM SUCKER MACHINE OPERATOR Pulse 63 11/23/2012 8:30 AM SUCKER MACHINE OPERATOR Temperature 36.8 C (98.3 F) 11/23/2012 8:30 AM SUCKER MACHINE OPERATOR Respiratory Rate - - Oxygen Saturation 97% 11/23/2012 8:30 AM SUCKER MACHINE OPERATOR Inhaled Oxygen - - Concentration Weight 86.2 kg (190 lb) 11/19/2012 9:57 AM SUCKER MACHINE OPERATOR Height 172.7 cm (5' 8") 11/19/2012 9:57 AM SUCKER MACHINE OPERATOR Body Mass Index 28.89 11/19/2012 9:57 AM SUCKER MACHINE OPERATOR Plan of Treatment Health Maintenance Due Date Last Done Comments HEPATITIS C SCREENING 1952 PHYSICAL (COMPREHENSIVE) 1959 EXAM PERTUSSIS VACCINE 1963 HIV SCREENING 1967 TETANUS VACCINE 1969 COLORECTAL CANCER 2002 SCREENING SHINGLES RECOMBINANT 2002 VACCINE (1 of 2) ABDOMINAL AORTIC ANEURYSM 2017 SCREENING PNEUMONIA (PCV13/PPSV23) 2017 VACCINES (1 of 2 - PCV13) INFLUENZA VACCINE 07/26/2018 Results Not on filefrom Last 3 Months
--- OUTSIDE RECORDS SUMMARY | 2018-06-22 21:51 | XMS REPORT ---
Author Author OLEGARIO ROSENTHAL Organization [facility] Address [address] [place] [address] Care Team Providers Care Tool Procurement Coordinator Name Role Phone OLEGARIO ROSENTHAL Unavailable PROBLEMS Type Condition ICD9-CM Code [id number] Code Onset Dates Condition Status SNOMED Code Problem Pain in left hip M25.552 Active 53894355 Problem Chronic pain syndrome G89.4 Active 755266007 Problem Pain in right hip M25.551 Active 05960364 Problem Venous stasis I87.8 Active 95676415 Problem Other proteinuria R80.8 Active 27074933 Problem Arthritis M19.90 Active 9317214 Problem Chronic obstructive pulmonary disease, unspecified COPD type J44.9 Active 60018775 Problem Low back pain M54.5 Active 138206413 Problem Other chronic pain G89.29 Active 42390657 ALLERGIES No Information ENCOUNTERS Encounter Location Date Diagnosis [place] [id number] [place] [id number] [place] [address]- [address] Apr, Venous stasis I87.8 [facility] [address] [place] [id number] [place] [address] 94908- 4789 Apr, [facility] [address] [place] [id number] [place] [address] 43024- 9164 Apr, Chronic pain syndrome G89.4 [facility] [address] [place] [id number] [place] [address] 92630- 2234 Apr, Localized edema R60.0 and Other proteinuria R80.8 [facility] [address] [place] [id number] [place] [address] 69132- 4379 Apr, Chronic pain syndrome G89.4 [facility] [address] [place] [id number] [place] [address] 95067- 7805 Mar, Chronic pain syndrome G89.4 [facility] [address] [place] [id number] [address] Mar, Chronic pain syndrome G89.4 [facility] [address] [place] [id number] [place] [address] 97833- 2488 February, Low back pain M54.5 ; Other chronic pain G89.29 ; Arthritis M19.90 and Drug-induced constipation K59.03 [facility] [address] [place] [id number] [place] [address] 73594- 4786 February, [facility] [address] [place] [id number] [place] [address] 10021- 5560 February, Chronic pain syndrome G89.4 [facility] [address] [place] [id number] [place] [address] 55861- 9837 February, Chronic pain syndrome G89.4 [facility] [address] [place] [id number] [place] [address] 71285- 2338 February, [facility] [address] [place] [id number] [place] [address] 89331- 6706 Jan, Chronic pain syndrome G89.4 [facility] [address] [place] [id number] [place] [address] 27284- 3438 Dec, [facility] [address] [place] [id number] [place] [address] 83951- 8930 Dec, Chronic pain syndrome G89.4 ; Arthritis M19.90 ; Chronic obstructive pulmonary disease, unspecified COPD type J44.9 and Labile hypertension R09.89 [facility] [address] [place] [id number] [address] Dec, Chronic pain syndrome G89.4 [facility] [address] [place] [id number] [place] [address] 54376- 0906 Dec, [facility] [address] [place] [id number] [place] [address] 78957- 1905 Nov, [facility] [address] [place] [address]- [address] Nov, Chronic pain syndrome G89.4 [place] [address] [address] Oct, Chronic pain syndrome G89.4 [place] [address] [address]- 9793 Oct, Chronic pain syndrome G89.4 [place] [address] [place] [id number] [place] [address] 99220- 0504 Oct, Chronic pain syndrome G89.4 [place] [address] [place] [id number] [place] [address] 32280- 8905 Oct, Chronic pain syndrome G89.4 ; Pain in right hip M25.551 ; Pain in left hip M25.552 and Chronic obstructive pulmonary disease, unspecified COPD type J44.9 [place] [address] [place] [id number] [place] [address] 42849- 9056 Sep, [place] [address] [place] [address] 23145- 1447 Jun, [place] [address] [place] [id number] [place] [address] 67548- 3746 Jun, IMMUNIZATIONS No Known Immunizations SOCIAL HISTORY Never Assessed REASON FOR VISIT awaitng return call PLAN OF CARE VITAL SIGNS MEDICATIONS Medication Instructions Dosage Frequency Start Date End Date Duration Status Lasix 20 mg Orally Once a dayPRN for sweilling 1 tablet February, 30 day(s) Active RESULTS No Results PROCEDURES No Known procedures INSTRUCTIONS MEDICATIONS ADMINISTERED No Known Medications MEDICAL (GENERAL) HISTORY Type Description Date Medical History avascular necrosis Medical History pacemaker Medical History 22 hip replacements Surgical History 11 replacements on right and 11 replacements on left hips Surgical History back surgery ruptured disk 1973 Hospitalization History Surgery(s) only
--- OUTSIDE RECORDS SUMMARY | 2018-06-22 21:51 | XMS REPORT ---
Author Author VEGA WEINSTEIN Organization [facility] Address [address] [place] [address] Care Team Providers Care Developer [employer] Name Role Phone VEGA WEINSTEIN Unavailable PROBLEMS Type Condition ICD9-CM Code DIT79-FG Code Onset Dates Condition Status SNOMED Code Problem Pain in left hip M25.552 Active 27857556 Problem Chronic pain syndrome G89.4 Active 749381716 Problem Pain in right hip M25.551 Active 13641322 Problem Venous stasis I87.8 Active 26711785 Problem Other proteinuria R80.8 Active 51608437 Problem Arthritis M19.90 Active 3546983 Problem Chronic obstructive pulmonary disease, unspecified COPD type J44.9 Active 02215768 Problem Low back pain M54.5 Active 312025930 Problem Other chronic pain G89.29 Active [id number] ALLERGIES No Information ENCOUNTERS Encounter Location Date Diagnosis [facility] [id number] [place] [address] 05719- 6803 May, [facility] [id number] [place] [address] 56126- 2211 May, [facility] [id number] [place] [address] 32537- 3711 May, Chronic pain syndrome G89.4 [facility] [id number] [place] [address] 44363- 8939 Apr, Venous stasis I87.8 [facility] [id number] [place] [address] 96220- 4682 Apr, [facility] [id number] [place] [address] 62128- 0944 Apr, Chronic pain syndrome G89.4 [facility] [id number] [place] [address] 90831- 0358 Apr, Localized edema R60.0 and Other proteinuria R80.8 [facility] [id number] [place] [address] 95434- 1097 Apr, Chronic pain syndrome G89.4 [facility] [id number] [place] [address] 00782- 6501 Mar, Chronic pain syndrome G89.4 [facility] [address] 74613- 7549 Mar, Chronic pain syndrome G89.4 [facility] [address] 67474- 1140 February, Low back pain M54.5 ; Other chronic pain G89.29 ; Arthritis M19.90 and Drug-induced constipation K59.03 [facility] [address] 66436- 7622 February, [facility] [address] 40460- 7287 February, Chronic pain syndrome G89.4 [facility] [id number] [place] [address] 75161- 2541 February, Chronic pain syndrome G89.4 [facility] [id number] [place] [address] 68790- 1298 February, [facility] [id number] [place] [address] 12881- 5270 Jan, Chronic pain syndrome G89.4 [facility] [id number] [place] [address] 73001- 4285 Dec, [facility] [address] 90847- 7157 Dec, Chronic pain syndrome G89.4 ; Arthritis M19.90 ; Chronic obstructive pulmonary disease, unspecified COPD type J44.9 and Labile hypertension R09.89 [facility] [id number] [place] [address] 48727- 2928 Dec, Chronic pain syndrome G89.4 [facility] [address] [address] 290[address] Dec, [facility] [address] [place] [address]- 5940 Nov, [facility] [address] [place] [address] 63305- 6973 Nov, Chronic pain syndrome G89.4 [facility] [address] [place] [address] 63857- 2894 Oct, Chronic pain syndrome G89.4 [facility] [address] [place] [address] 22118- 1107 Oct, Chronic pain syndrome G89.4 [facility] [address] [place] [address]- 9582 Oct, Chronic pain syndrome G89.4 [facility] [address] [place] [address] 83867- 4881 Oct, Chronic pain syndrome G89.4 ; Pain in right hip M25.551 ; Pain in left hip M25.552 and Chronic obstructive pulmonary disease, unspecified COPD type J44.9 [place] [address] [address]- 3079 Sep, [place] [address] [place] [address]- 4339 Jun, [facility] [address] [place] [address]- 7804 Jun, IMMUNIZATIONS No Known Immunizations SOCIAL HISTORY Never Assessed REASON FOR VISIT ambien refill 03/16/2018 PLAN OF CARE VITAL SIGNS MEDICATIONS Medication Instructions Dosage Frequency Start Date End Date Duration Status Ambien 10 mg Orally Once a day 1 tablet at bedtime as needed 24h 28 days Active RESULTS No Results PROCEDURES [...]
--- OUTSIDE RECORDS SUMMARY | 2018-06-22 21:51 | XMS REPORT ---
Author Author OLEGARIO ROSENTHAL Organization [facility] Address [address] [place] [address] Care Team Providers Care Lift Electrician Name Role Phone OLEGARIO ROSENTHAL Unavailable PROBLEMS Type Condition ICD9-CM Code DLD92-UV Code Onset Dates Condition Status SNOMED Code Problem Pain in left hip M25.552 Active 89117586 Problem Chronic pain syndrome G89.4 Active 613108306 Problem Pain in right hip M25.551 Active 55281160 Problem Venous stasis I87.8 Active 08605271 Problem Other proteinuria R80.8 Active 95469290 Problem Arthritis M19.90 Active 4377733 Problem Chronic obstructive pulmonary disease, unspecified COPD type J44.9 Active 39616757 Problem Low back pain M54.5 Active 185631795 Problem Other chronic pain G89.29 Active [id number] ALLERGIES No Information ENCOUNTERS Encounter Location Date Diagnosis [place] [id number] [place] [address] 73594- 9007 Apr, Venous stasis I87.8 [facility] [id number] [place] [address] 48842- 5852 Apr, [facility] [id number] [place] [address] 98754- 4977 Apr, Chronic pain syndrome G89.4 [facility] [id number] [place] [address] 51512- 1346 Apr, Localized edema R60.0 and Other proteinuria R80.8 [facility] [id number] [place] [address] 40669- 5312 Apr, Chronic pain syndrome G89.4 [facility] [id number] [place] [address] 56184- 4143 Mar, Chronic pain syndrome G89.4 [facility] [id number] [address]- 5162 Mar, Chronic pain syndrome G89.4 [facility] [id number] [place] [address] 06192- 2045 February, Low back pain M54.5 ; Other chronic pain G89.29 ; Arthritis M19.90 and Drug-induced constipation K59.03 [facility] [id number] [place] [address] 58513- 7041 February, [facility] [id number] [place] [address] 99465- 9677 February, Chronic pain syndrome G89.4 [facility] [id number] [place] [address] 50576- 9214 February, Chronic pain syndrome G89.4 [facility] [id number] [place] [address] 43845- 0415 February, [facility] [id number] [place] [address] 22911- 3831 Jan, Chronic pain syndrome G89.4 [facility] [id number] [place] [address] 11163- 3668 Dec, [facility] [id number] [place] [address] 75286- 9939 Dec, Chronic pain syndrome G89.4 ; Arthritis M19.90 ; Chronic obstructive pulmonary disease, unspecified COPD type J44.9 and Labile hypertension R09.89 [facility] [id number] [address]- 7813 Dec, Chronic pain syndrome G89.4 [facility] [id number] [place] [address] 76207- 1496 Dec, [facility] [id number] [place] [address] 41409- 0512 Nov, [facility] [address] [place] [address]- 3373 Nov, Chronic pain syndrome G89.4 [place] [address] [address]- 7842 Oct, Chronic pain syndrome G89.4 [facility] [address] [address]- 6549 Oct, Chronic pain syndrome G89.4 [place] [id number] [place] [address] 34200- 0743 Oct, Chronic pain syndrome G89.4 [place] [id number] [place] [address] 47124- 1815 Oct, Chronic pain syndrome G89.4 ; Pain in right hip M25.551 ; Pain in left hip M25.552 and Chronic obstructive pulmonary disease, unspecified COPD type J44.9 [place] [id number] [place] [address] 44218- 8989 Sep, [place] [address] [place] [address] 86153- 3303 Jun, [place] [id number] [place] [address] 33498- 0700 Jun, IMMUNIZATIONS No Known Immunizations SOCIAL HISTORY Never Assessed REASON FOR VISIT Morphine 02/16 PLAN OF CARE VITAL SIGNS MEDICATIONS Medication Instructions Dosage Frequency Start Date End Date Duration Status Morphine Sulfate ER 100 mg Orally 2 times a day 2 tablet 12h Jan, 28 days Active RESULTS No Results PROCEDURES [...]
--- OUTSIDE RECORDS SUMMARY | 2018-06-22 21:51 | XMS REPORT ---
Author Author OLEGARIO ROSENTHAL Organization [facility] Address [address] [place] [address] Care Team Providers Care Allied Health Teacher Name Role Phone OLEGARIO ROSENTHAL Unavailable PROBLEMS Type Condition ICD9-CM Code DCX62-QG Code Onset Dates Condition Status SNOMED Code Problem Pain in left hip M25.552 Active 74160595 Problem Chronic pain syndrome G89.4 Active 141554639 Problem Pain in right hip M25.551 Active 93454412 Problem Venous stasis I87.8 Active 00528669 Problem Other proteinuria R80.8 Active 86536181 Problem Arthritis M19.90 Active 5237123 Problem Chronic obstructive pulmonary disease, unspecified COPD type J44.9 Active 05720051 Problem Low back pain M54.5 Active 718444618 Problem Other chronic pain G89.29 Active 22097435 ALLERGIES No Information ENCOUNTERS Encounter Location Date Diagnosis [place] [address] 0[address]13- 8102 May, [place] [id number] [place] [address] 50645- 6043 May, Venous stasis I87.8 ; Bronchitis J40 ; Other proteinuria R80.8 ; Chronic pain syndrome G89.4 and BMI 50.0-59.9, adult Z68.43 [place] [id number] [place] [address] 58192- 0918 May, Chronic pain syndrome G89.4 [place] [address] 86192- 7942 Apr, Venous stasis I87.8 [place] [id number] [place] [address] 03056- 2903 Apr, [place] [address] [place] [address]- 2974 Apr, Chronic pain syndrome G89.4 [facility] [id number] [place] [address] 32035- 1835 Apr, Localized edema R60.0 and Other proteinuria R80.8 [facility] [id number] [place] [address] 15787- 3998 Apr, Chronic pain syndrome G89.4 [facility] [id number] [place] [address] 91436- 7954 Mar, Chronic pain syndrome G89.4 [facility] [id number] [place] [address] 67616- 0847 Mar, Chronic pain syndrome G89.4 [facility] [id number] [place] [address] 52082- 2428 February, Low back pain M54.5 ; Other chronic pain G89.29 ; Arthritis M19.90 and Drug-induced constipation K59.03 [facility] [id number] [place] [address] 04641- 7990 February, [facility] [id number] [place] [address] 94258- 5179 February, Chronic pain syndrome G89.4 [facility] [id number] [place] [address] 19254- 0395 February, Chronic pain syndrome G89.4 [facility] [id number] [place] [address] 80240- 8899 February, [facility] [id number] [place] [address] 55931- 7433 Jan, Chronic pain syndrome G89.4 [facility] [id number] [place] [address] 86888- 4819 Dec, [facility] [id number] [place] [address] 98016- 8180 Dec, Chronic pain syndrome G89.4 ; Arthritis M19.90 ; Chronic obstructive pulmonary disease, unspecified COPD type J44.9 and Labile hypertension R09.89 [place] [id number] [place] [address] 87558- 8123 Dec, Chronic pain syndrome G89.4 [facility] [address] [place] [address] 80762- 7368 Dec, [facility] [id number] [place] [address] 46069- 3657 Nov, [facility] [id number] [place] [address] 48934- 6101 Nov, Chronic pain syndrome G89.4 [facility] [id number] [place] [address] 77153- 7307 Oct, Chronic pain syndrome G89.4 [place] [id number] [place] [address] 92129- 0980 Oct, Chronic pain syndrome G89.4 [facility] [id number] [place] [address] 93515- 0989 Oct, Chronic pain syndrome G89.4 [place] [id number] [place] [address] 26544- 6745 Oct, Chronic pain syndrome G89.4 ; Pain in right hip M25.551 ; Pain in left hip M25.552 and Chronic obstructive pulmonary disease, unspecified COPD type J44.9 [place] [address] [place] [address] 78343- 9254 Sep, [place] [id number] [place] [address] 41765- 6510 Jun, [place] [id number] [place] [address] 13509- 8112 Jun, IMMUNIZATIONS No Known Immunizations SOCIAL HISTORY Never Assessed REASON FOR VISIT Controlled Med Refill PLAN OF CARE VITAL SIGNS MEDICATIONS Medication Instructions Dosage Frequency Start Date End Date Duration Status Morphine Sulfate ER 100 mg Orally 2 times a day 2 tablet 12h 15 Mick, 2018 28 days Active RESULTS No Results [...]
--- OUTSIDE RECORDS SUMMARY | 2018-06-22 21:51 | XMS REPORT ---
Author Author OLEGARIO ROSENTHAL Organization [facility] Address [address] [place] [address] Care Team Providers Care Retail Event And Sales Assistant Name Role Phone OLEGARIO ROSENTHAL Unavailable PROBLEMS Type Condition ICD9-CM Code NLX18-LS Code Onset Dates Condition Status SNOMED Code Problem Pain in left hip M25.552 Active 01086036 Problem Chronic pain syndrome G89.4 Active 123774195 Problem Pain in right hip M25.551 Active 70238765 Problem Venous stasis I87.8 Active 57016646 Problem Other proteinuria R80.8 Active 61780921 Problem Arthritis M19.90 Active 6991763 Problem Chronic obstructive pulmonary disease, unspecified COPD type J44.9 Active 15846520 Problem Low back pain M54.5 Active 361664549 Problem Other chronic pain G89.29 Active 44371422 ALLERGIES No Information ENCOUNTERS Encounter Location Date Diagnosis [place] [address] 24296- 0079 May, [place] [id number] [place] [address] 14692- 7131 May, Venous stasis I87.8 ; Bronchitis J40 ; Other proteinuria R80.8 ; Chronic pain syndrome G89.4 and BMI 50.0-59.9, adult Z68.43 [place] [id number] [place] [address] 70277- 5181 May, Chronic pain syndrome G89.4 [place] [address] 31157- 7022 Apr, Venous stasis I87.8 [place] [id number] [place] [address] 69304- 7895 Apr, [place] [address] [place] [address]- 7860 Apr, Chronic pain syndrome G89.4 [facility] [id number] [place] [address] 80832- 3647 Apr, Localized edema R60.0 and Other proteinuria R80.8 [facility] [id number] [place] [address] 90039- 1997 Apr, Chronic pain syndrome G89.4 [facility] [id number] [place] [address] 95340- 9949 Mar, Chronic pain syndrome G89.4 [facility] [id number] [place] [address] 77017- 8441 Mar, Chronic pain syndrome G89.4 [facility] [id number] [place] [address] 11446- 2630 February, Low back pain M54.5 ; Other chronic pain G89.29 ; Arthritis M19.90 and Drug-induced constipation K59.03 [facility] [id number] [place] [address] 98234- 8795 February, [facility] [id number] [place] [address] 07838- 9140 February, Chronic pain syndrome G89.4 [facility] [id number] [place] [address] 68620- 5461 February, Chronic pain syndrome G89.4 [facility] [id number] [place] [address] 27571- 8702 February, [facility] [id number] [place] [address] 18866- 2283 Jan, Chronic pain syndrome G89.4 [facility] [id number] [place] [address] 54735- 2529 Dec, [facility] [id number] [place] [address] 18008- 8704 Dec, Chronic pain syndrome G89.4 ; Arthritis M19.90 ; Chronic obstructive pulmonary disease, unspecified COPD type J44.9 and Labile hypertension R09.89 [facility] [id number] [place] [address] 47388- 5317 Dec, Chronic pain syndrome G89.4 [facility] [address] [place] [address] 42849- 1216 Dec, [facility] [id number] [place] [address] 00312- 3690 Nov, [facility] [id number] [place] [address] 77044- 7838 Nov, Chronic pain syndrome G89.4 [facility] [id number] [place] [address] 03599- 4726 Oct, Chronic pain syndrome G89.4 [place] [id number] [place] [address] 68135- 2018 Oct, Chronic pain syndrome G89.4 [facility] [id number] [place] [address] 22614- 2473 Oct, Chronic pain syndrome G89.4 [place] [id number] [place] [address] 93495- 1583 Oct, Chronic pain syndrome G89.4 ; Pain in right hip M25.551 ; Pain in left hip M25.552 and Chronic obstructive pulmonary disease, unspecified COPD type J44.9 [facility] [address] [place] [address] 43170- 3932 Sep, [facility] [id number] [place] [address] 16103- 4752 Jun, [place] [id number] [place] [address] 96379- 9987 Jun, IMMUNIZATIONS No Known Immunizations SOCIAL HISTORY Never Assessed REASON FOR VISIT Medciation misuse PLAN OF CARE VITAL SIGNS MEDICATIONS Unknown Medications RESULTS No Results PROCEDURES No Known procedures INSTRUCTIONS MEDICATIONS ADMINISTERED No Known Medications MEDICAL (GENERAL) HISTORY Type Description Date Medical History avascular necrosis Medical History pacemaker 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
--- OUTSIDE RECORDS SUMMARY | 2018-06-22 21:51 | XMS REPORT ---
Author Author VEGA WEINSTEIN Organization [facility] Address [address] [place] [address] Care Team Providers Care Ocean Freight Agent Name Role Phone VEGA WEINSTEIN Unavailable PROBLEMS Type Condition ICD9-CM Code [id number] Code Onset Dates Condition Status SNOMED Code Problem Pain in left hip M25.552 Active 04143639 Problem Chronic pain syndrome G89.4 Active 044056301 Problem Pain in right hip M25.551 Active 88734545 Problem Venous stasis I87.8 Active 50438158 Problem Other proteinuria R80.8 Active 20636485 Problem Arthritis M19.90 Active 2470530 Problem Chronic obstructive pulmonary disease, unspecified COPD type J44.9 Active 17586614 Problem Low back pain M54.5 Active 878282206 Problem Other chronic pain G89.29 Active [id number] ALLERGIES No Information ENCOUNTERS Encounter Location Date Diagnosis [facility] [id number] [place] [address] 88118- 6412 May, [facility] [id number] [place] [address] 45580- 1600 May, [facility] [id number] [place] [address] 47258- 7054 May, Chronic pain syndrome G89.4 [facility] [id number] [place] [address] 24917- 2616 Apr, Venous stasis I87.8 [facility] [id number] [place] [address] 84316- 2491 Apr, [facility] [id number] [place] [address] 54692- 9230 Apr, Chronic pain syndrome G89.4 [facility] [id number] [place] [address] 14691- 8417 Apr, Localized edema R60.0 and Other proteinuria R80.8 [facility] [id number] [place] [address] 39536- 6013 Apr, Chronic pain syndrome G89.4 [facility] [id number] [place] [address] 96468- 1061 Mar, Chronic pain syndrome G89.4 [facility] [address] 61022- 5758 Mar, Chronic pain syndrome G89.4 [facility] [address] 87250- 8855 February, Low back pain M54.5 ; Other chronic pain G89.29 ; Arthritis M19.90 and Drug-induced constipation K59.03 [facility] [address] 12485- 5475 February, [facility] [address] 01618- 1951 February, Chronic pain syndrome G89.4 [facility] [id number] [place] [address] 19792- 9470 February, Chronic pain syndrome G89.4 [facility] [id number] [place] [address] 77530- 2991 February, [facility] [id number] [place] [address] 55931- 4425 Jan, Chronic pain syndrome G89.4 [facility] [id number] [place] [address] 08905- 1100 Dec, [facility] [address] 68521- 8190 Dec, Chronic pain syndrome G89.4 ; Arthritis M19.90 ; Chronic obstructive pulmonary disease, unspecified COPD type J44.9 and Labile hypertension R09.89 [facility] [id number] [place] [address] 58475- 3334 Dec, Chronic pain syndrome G89.4 [facility] [address] [address] 2060 Dec, [facility] [address] [address] 4074 Nov, [facility] [address] [place] [address] 41094- 2161 Nov, Chronic pain syndrome G89.4 [facility] [address] [place] [address] 93096- 4622 Oct, Chronic pain syndrome G89.4 [facility] [address] [place] [address] 81601- 9490 Oct, Chronic pain syndrome G89.4 [facility] [id number] [place] [address] 83869- 9749 Oct, Chronic pain syndrome G89.4 [facility] [id number] [place] [address] 87352- 6313 Oct, Chronic pain syndrome G89.4 ; Pain in right hip M25.551 ; Pain in left hip M25.552 and Chronic obstructive pulmonary disease, unspecified COPD type J44.9 [facility] [address] [address]- 8331 Sep, [facility] [address] [address]- 4091 Jun, [facility] [address] [address]- 1479 Jun, IMMUNIZATIONS No Known Immunizations SOCIAL HISTORY Never Assessed REASON FOR VISIT Morphine 03/16 PLAN OF CARE VITAL SIGNS MEDICATIONS Medication Instructions Dosage Frequency Start Date End Date Duration Status Morphine Sulfate ER 100 mg Orally 2 times a day 2 tablet 12h February, 28 days Active RESULTS No Results PROCEDURES [...]
--- OUTSIDE RECORDS SUMMARY | 2018-06-22 21:51 | XMS REPORT ---
Author Author OLEGARIO ROSENTHAL Organization [facility] Address [address] [place] [address] Care Team Providers Care Copy Messenger Name Role Phone OLEGARIO ROSENTHAL Unavailable PROBLEMS Type Condition ICD9-CM Code WPR83-LI Code Onset Dates Condition Status SNOMED Code Problem Pain in left hip M25.552 Active 33402617 Problem Chronic pain syndrome G89.4 Active 381803823 Problem Pain in right hip M25.551 Active 53157360 Problem Venous stasis I87.8 Active 40496308 Problem Other proteinuria R80.8 Active 75319373 Problem Arthritis M19.90 Active 4629490 Problem Chronic obstructive pulmonary disease, unspecified COPD type J44.9 Active 32179402 Problem Low back pain M54.5 Active 098639321 Problem Other chronic pain G89.29 Active 46048345 ALLERGIES Substance Reaction Event Type Date Status Codeine Sulfate hives Drug Allergy February, Active ENCOUNTERS Encounter Location Date Diagnosis [place] [address] [place] [address] 92842- 7531 May, [place] [id number] [place] [address] 64038- 1860 May, Venous stasis I87.8 ; Bronchitis J40 ; Other proteinuria R80.8 ; Chronic pain syndrome G89.4 and BMI 50.0-59.9, adult Z68.43 [facility] [address] [place] [address] 57260- 0151 May, Chronic pain syndrome G89.4 [place] [id number] [place] [address] 01228- 0595 Apr, Venous stasis I87.8 [place] [id number] [place] [address] 00700- 1004 Apr, [facility] [address] [place] [address] 40913- 3551 Apr, Chronic pain syndrome G89.4 [facility] [id number] [place] [address] 50525- 8810 Apr, Localized edema R60.0 and Other proteinuria R80.8 [facility] [id number] [place] [address] 83669- 9010 Apr, Chronic pain syndrome G89.4 [facility] [id number] [place] [address] 60872- 7491 Mar, Chronic pain syndrome G89.4 [facility] [id number] [place] [address] 38840- 3830 Mar, Chronic pain syndrome G89.4 [facility] [id number] [place] [address] 17232- 8259 February, Low back pain M54.5 ; Other chronic pain G89.29 ; Arthritis M19.90 and Drug-induced constipation K59.03 [facility] [id number] [place] [address] 01328- 7015 February, [facility] [id number] [place] [address] 10121- 2545 February, Chronic pain syndrome G89.4 [facility] [id number] [place] [address] 29061- 6908 February, Chronic pain syndrome G89.4 [facility] [id number] [place] [address] 39841- 2802 February, [facility] [id number] [place] [address] 73389- 6015 Jan, Chronic pain syndrome G89.4 [facility] [id number] [place] [address] 77225- 0093 Dec, [facility] [id number] [place] [address] 54360- 5212 Dec, Chronic pain syndrome G89.4 ; Arthritis M19.90 ; Chronic obstructive pulmonary disease, unspecified COPD type J44.9 and Labile hypertension R09.89 [facility] [address] [address]- 4256 Dec, Chronic pain syndrome G89.4 [facility] [address] [address]- 7096 Dec, [facility] [id number] [address]- 4033 Nov, [facility] [id number] [place] [address] 16755- 3303 Nov, Chronic pain syndrome G89.4 [facility] [address] [place] [address] 33121- 8040 Oct, Chronic pain syndrome G89.4 [facility] [address] [place] [address] 75807- 1171 Oct, Chronic pain syndrome G89.4 [facility] [address] [place] [address] 47282- 8375 Oct, Chronic pain syndrome G89.4 [facility] [address] [place] [address]- 6436 Oct, Chronic pain syndrome G89.4 ; Pain in right hip M25.551 ; Pain in left hip M25.552 and Chronic obstructive pulmonary disease, unspecified COPD type J44.9 [facility] [address] [place] [address]- 6702 Sep, [facility] [id number] [address]- 5099 Jun, [facility] [address], [place] [address]- 8280 Jun, IMMUNIZATIONS No Known Immunizations SOCIAL HISTORY Never Assessed REASON FOR VISIT 1 marlys young/janna Lechuga MA , PT notes feels he might have a UTI or kidney infection. , PT needs a refill of the Polyethylene hlycol 335. powder oral solution. PLAN OF CARE Activity Details Follow Up 3 Months Reason: VITAL SIGNS Height 68 in 2018-03-25 Temperature 98.5 degrees Fahrenheit 2018-03-25 Heart Rate 98 bpm 2018-03-25 Respiratory Rate 20 2018-03-25 Blood pressure systolic 140 mmHg 2018-03-25 Blood pressure diastolic 80 mmHg 2018-03-25 MEDICATIONS Medication Instructions Dosage Frequency Start Date End Date Duration Status MiraLax - Orally Once a day 1 capful 24h February, Active Nitroglycerin 0.4 MG Active Ventolin HFA 108 (90 Base) MCG/ACT Inhalation every 6 hrs 2 puffs as needed 6h Active Naproxen 500 mg Orally 2 times a day 1 tablet with food or milk as needed 12h Dec, Active Morphine Sulfate ER 100 mg Orally 2 times a day 2 tablet 12h February, 28 days Active Flexeril 10 mg by oral route 3 times a day 1 tablet as needed 8h 30 days Active Ambien 10 mg Orally Once a day 1 tablet at bedtime as needed 24h 28 days Active Lasix 20 mg Orally Once a dayPRN for sweilling 1 tablet February, 30 day(s) Active RESULTS No Results PROCEDURES Procedure Date Ordered Result Body Site [facility] ESTABLISHED PATIENT March 25, 2018 INSTRUCTIONS MEDICATIONS ADMINISTERED No Known Medications MEDICAL (GENERAL) HISTORY Type Description Date Medical History avascular necrosis Medical History pacemaker 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
--- OUTSIDE RECORDS SUMMARY | 2018-06-22 21:51 | XMS REPORT ---
Author Author OLEGARIO ROSENTHAL [facility] Address [address] [place] [address] Care Team Providers Care Weather Observer Name Role Phone OLEGARIO ROSENTHAL Unavailable PROBLEMS Type Condition ICD9-CM Code IAO58-EP Code Onset Dates Condition Status SNOMED Code Problem Pain in right hip M25.551 Active 40849730 Problem Pain in left hip M25.552 Active 93811269 Problem Other proteinuria R80.8 Active 02775984 Problem Low back pain M54.5 Active 962561092 Problem Chronic obstructive pulmonary disease, unspecified COPD type J44.9 Active 38464326 Problem Chronic pain syndrome G89.4 Active 577441626 Problem Other chronic pain G89.29 Active 36345846 Problem Arthritis M19.90 Active 5119487 ALLERGIES No Information ENCOUNTERS Encounter Location Date Diagnosis [place] [id number] [place] [address] 29535- 6615 Apr, [place] [id number] [place] [address] 95503- 0496 Apr, Chronic pain syndrome G89.4 [facility] [id number] [place] [address] 80601- 2905 Apr, Localized edema R60.0 and Other proteinuria R80.8 [facility] [id number] [place] [address] 39689- 8310 Apr, Chronic pain syndrome G89.4 [facility] [id number] [place] [address] 02481- 2644 18 Mar, 2018 Chronic pain syndrome G89.4 [facility] [id number] [place] [address] 30517- 4523 15 Mar, 2018 Chronic pain syndrome G89.4 [facility] [id number] [address]- 2250 February, Low back pain M54.5 ; Other chronic pain G89.29 ; Arthritis M19.90 and Drug-induced constipation K59.03 [facility] [address] [address]- 4[address] February, [facility] [id number] [place] [address] 49311- 8774 February, Chronic pain syndrome G89.4 [facility] [id number] [place] [address] 87654- 3072 February, Chronic pain syndrome G89.4 [facility] [id number] [place] [address] 19598- 1800 February, [facility] [id number] [place] [address] 44491- 0899 Jan, Chronic pain syndrome G89.4 [facility] [id number] [place] [address] 79316- 8146 Dec, [facility] [id number] [place] [address] 44962- 1738 Dec, Chronic pain syndrome G89.4 ; Arthritis M19.90 ; Chronic obstructive pulmonary disease, unspecified COPD type J44.9 and Labile hypertension R09.89 [facility] [address], [place] [address]- 8726 Dec, Chronic pain syndrome G89.4 [facility] [address], [place] [address]- 9034 Dec, [facility] [id number] [place] [address] 57203- 0773 Nov, [facility] [id number] [place] [address] 24103- 3980 Nov, Chronic pain syndrome G89.4 [facility] [id number] [place] [address] 86934- 6589 Oct, Chronic pain syndrome G89.4 [facility] [address], [place] [address]- 2942 Oct, Chronic pain syndrome G89.4 [facility] [address] 4149 Oct, Chronic pain syndrome G89.4 [facility] [address] 5177 Oct, Chronic pain syndrome G89.4 ; Pain in right hip M25.551 ; Pain in left hip M25.552 and Chronic obstructive pulmonary disease, unspecified COPD type J44.9 [place] [address] [place] [address] 24595- 9592 Sep, [place] [address], [place] [address]- 3585 Jun, [place] [address], [place] [address]- 6527 Jun, IMMUNIZATIONS No Known Immunizations SOCIAL HISTORY Never Assessed REASON FOR VISIT FY only PLAN OF CARE VITAL SIGNS MEDICATIONS Unknown [...]
--- OUTSIDE RECORDS SUMMARY | 2018-06-22 21:52 | XMS REPORT ---
Author Author OLEGARIO ROSENTHAL Organization [facility] Address [address] [place] [address] Care Team Providers Care Color Print Inspector Name Role Phone OLEGARIO ROSENTHAL Unavailable PROBLEMS Type Condition ICD9-CM Code UBO68-SM Code Onset Dates Condition Status SNOMED Code Problem Pain in left hip M25.552 Active 66843714 Problem Other chronic pain G89.29 Active 53995045 Problem Low back pain M54.5 Active 989403878 Problem Chronic pain syndrome G89.4 Active 579955616 Problem Pain in right hip M25.551 Active 70549798 Problem Arthritis M19.90 Active 4881477 Problem Chronic obstructive pulmonary disease, unspecified COPD type J44.9 Active 09737729 ALLERGIES Substance Reaction Event Type Date Status Codeine Sulfate hives Drug Allergy Oct, Active ENCOUNTERS Encounter Location Date Diagnosis [facility] [address] [place] [address] 53119- 2847 Mar, Chronic pain syndrome G89.4 [facility] [address] [place] [address] 16310- 4034 February, Low back pain M54.5 ; Other chronic pain G89.29 ; Arthritis M19.90 and Drug-induced constipation K59.03 [facility] [address], [place] [address]- 1674 February, [facility] [address], [place] [address]- 1830 February, Chronic pain syndrome G89.4 [facility] [id number] [place] [address] 77427- 1585 February, Chronic pain syndrome G89.4 [facility] [id number] [place] [address] 74582- 1895 February, [facility] [address], [place] [address]- 2032 Jan, Chronic pain syndrome G89.4 [facility] [address], [place] [address]- 5476 Dec, [facility] [id number] [place] [address] 95318- 2546 Dec, Chronic pain syndrome G89.4 ; Arthritis M19.90 ; Chronic obstructive pulmonary disease, unspecified COPD type J44.9 and Labile hypertension R09.89 [facility] [id number] [place] [address] 53509- 3796 Dec, Chronic pain syndrome G89.4 [facility] [id number] [place] [address] 15923- 4726 Dec, [facility] [id number] [place] [address] 80229- 5288 Nov, [facility] [id number] [place] [address] 30313- 8890 Nov, Chronic pain syndrome G89.4 [facility] [id number] [place] [address] 48113- 0176 Oct, Chronic pain syndrome G89.4 [facility] [address], [place] [address]- 3966 Oct, Chronic pain syndrome G89.4 [facility] [address], [place] [address]- 1701 Oct, Chronic pain syndrome G89.4 [facility] [address] [place] [address]- 7102 Oct, Chronic pain syndrome G89.4 ; Pain in right hip M25.551 ; Pain in left hip M25.552 and Chronic obstructive pulmonary disease, unspecified COPD type J44.9 [facility] [address] [place] [address] 35174- 0780 Sep, [facility] [address] [facility] [id number] [place] [address]- 4122 Jun, [facility] [address] [facility] [id number] [place] [address]- 8296 Jun, IMMUNIZATIONS No Known Immunizations SOCIAL HISTORY Never Assessed REASON FOR VISIT restart meds, previous Dr. Beasley pt----AmarisNoelNarda, ran out of morphine on Thursday , states having withdrawl symptoms, was seen at ER Thursday for heart palpitations, sees Dr. Houser PLAN OF CARE Activity Details Follow Up 3 Months Reason: VITAL SIGNS Temperature 98.1 degrees Fahrenheit 2017-10-27 Heart Rate 80 bpm 2017-10-27 Respiratory Rate 20 2017-10-27 Blood pressure systolic 114 mmHg 2017-10-27 Blood pressure diastolic 86 mmHg 2017-10-27 MEDICATIONS Medication Instructions Dosage Frequency Start Date End Date Duration Status Ventolin HFA 108 (90 Base) MCG/ACT Inhalation every 6 hrs 2 puffs as needed 6h Active Movantik 25 MG Orally Once a day 1 tablet in the morning 24h Active Nitroglycerin 0.4 MG Active Morphine Sulfate ER 100 mg Orally 2 times a day 2 12h Oct,Oct 28 days Active Ambien 10 mg Orally Once a day 1 tablet at bedtime as needed 24h 30 days Active Flexeril 10 mg by oral route 3 times a day 1 tablet as needed 8h 2 Jan, 2018 30 days Active Xanax 1 MG Orally 3 times a day 1 tablet as needed 8h Active RESULTS Name Result Date Reference Range URINE DRUG SCREEN (IN HOUSE) 2017-10-27 Lot # [id number] Exp date 06/2019 Control + COCAINE negative AMPH negative MTD negative THC negative OPIATE POSITIVE BENZO negative PCP negative BAR negative OXY POSITIVE MAMP negative TCA n/a BUP negative MDMA negative PROCEDURES Procedure Date Ordered Result Body Site DRUG TEST PRSMV DIR OPT OBS Oct 27, 2017 INSTRUCTIONS MEDICATIONS ADMINISTERED No Known Medications MEDICAL (GENERAL) HISTORY Type Description Date Medical History avascular necrosis Medical History pacemaker 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
--- OUTSIDE RECORDS SUMMARY | 2018-06-22 21:52 | XMS REPORT ---
Author Author OLEGARIO ROSENTHAL Organization [facility] Address [address] [place] [address] Care Team Providers Care Colored Leather Setter Name Role Phone OLEGARIO ROSENTHAL Unavailable PROBLEMS Type Condition ICD9-CM Code HPE54-JZ Code Onset Dates Condition Status SNOMED Code Problem Pain in right hip M25.551 Active 60789640 Problem Pain in left hip M25.552 Active 87447801 Problem Other proteinuria R80.8 Active 13894418 Problem Low back pain M54.5 Active 760872265 Problem Chronic obstructive pulmonary disease, unspecified COPD type J44.9 Active 16424334 Problem Chronic pain syndrome G89.4 Active 262012201 Problem Other chronic pain G89.29 Active 90036227 Problem Arthritis M19.90 Active 4942197 ALLERGIES Substance Reaction Event Type Date Status Codeine Sulfate hives Drug Allergy Dec, Active ENCOUNTERS Encounter Location Date Diagnosis [place] [id number] [place] [address]72- 0572 Apr, Localized edema R60.0 and Other proteinuria R80.8 [place] [id number] [place] [address] 86318- 2729 Apr, Chronic pain syndrome G89.4 [place] [id number] [place] [address] 11050- 2189 Mar, Chronic pain syndrome G89.4 [place] [id number] [place] [address] 90239- 2728 Mar, Chronic pain syndrome G89.4 [place] [id number] [place] [address] 13037- 6003 February, Low back pain M54.5 ; Other chronic pain G89.29 ; Arthritis M19.90 and Drug-induced constipation K59.03 [place] [address], [place] [address] February, [facility] [address] [place] [address] 40122- 0823 February, Chronic pain syndrome G89.4 [facility] [address], [place] [address] 1446 February, Chronic pain syndrome G89.4 [facility] [id number] [place] [address] 29646- 6086 February, [facility] [address] [place] [address] 60845- 1351 Jan, Chronic pain syndrome G89.4 [facility] [id number] [place] [address] 10589- 3565 Dec, [facility] [id number] [place] [address] 79199- 2107 Dec, Chronic pain syndrome G89.4 ; Arthritis M19.90 ; Chronic obstructive pulmonary disease, unspecified COPD type J44.9 and Labile hypertension R09.89 [facility] [address] [place] [address] 29797- 4031 Dec, Chronic pain syndrome G89.4 [facility] [address], [place] [address] 8[address] Dec, [facility] [address], [place] [address] 8207 Nov, [facility] [address], [place] [address] 7793 Nov, Chronic pain syndrome G89.4 [facility] [address], [place] [address] 6426 Oct, Chronic pain syndrome G89.4 [facility] [address], [place] [address] 6016 Oct, Chronic pain syndrome G89.4 [place] [address], [place] [address] 9635 Oct, Chronic pain syndrome G89.4 [place] [id number] [place] [address] 56236- 8939 Oct, Chronic pain syndrome G89.4 ; Pain in right hip M25.551 ; Pain in left hip M25.552 and Chronic obstructive pulmonary disease, unspecified COPD type J44.9 [place] [address] [place] [address] 26907- 0216 Sep, [place] [id number] [place] [address] 13326- 3899 Jun, [place] [address] [place] [address] 17845- 8820 Jun, IMMUNIZATIONS No Known Immunizations SOCIAL HISTORY Never Assessed REASON FOR VISIT Establish Care was seeing Dr Kathie Claros RN, Contract, PHQ2, AUDIT C PLAN OF CARE Activity Details Follow Up 3 Months Reason: VITAL SIGNS Height 68 in 2018-01-19 Temperature 98.0 degrees Fahrenheit 2018-01-19 Heart Rate 78 bpm 2018-01-19 Respiratory Rate 18 2018-01-19 Blood pressure systolic 162 mmHg 2018-01-19 Blood pressure diastolic 88 mmHg 2018-01-19 MEDICATIONS Medication Instructions Dosage Frequency Start Date End Date Duration Status Nitroglycerin 0.4 MG Active Naproxen 500 mg Orally 2 times a day 1 tablet with food or milk as needed 12h Dec, Active Ventolin HFA 108 (90 Base) MCG/ACT Inhalation every 6 hrs 2 puffs as needed 6h Active Ambien 10 mg Orally Once a day 1 tablet at bedtime as needed 24h 28 days Active Flexeril 10 mg by oral route 3 times a day 1 tablet as needed 8h 30 days Active Morphine Sulfate ER 100 mg Orally 2 times a day 2 tablet 12h Dec, 28 days Active RESULTS No Results PROCEDURES Procedure Date Ordered Result Body Site LAB NOT BILLED BY [facility] January 19, 2018 [facility] VISIT ESTABLISHED PATIENT January 19, 2018 VENIPUNCT, ROUTINE* January 19, 2018 INSTRUCTIONS MEDICATIONS ADMINISTERED No Known Medications MEDICAL (GENERAL) HISTORY Type Description Date Medical History avascular necrosis Medical History pacemaker 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
--- OUTSIDE RECORDS SUMMARY | 2018-06-22 21:52 | XMS REPORT ---
Author Author OLEGARIO ROSENTHAL [facility] Address [address] [place] [address] Care Team Providers Care Chemical Process Equipment Operator Name Role Phone OLEGARIO ROSENTHAL Unavailable PROBLEMS Type Condition ICD9-CM Code NWA69-HM Code Onset Dates Condition Status SNOMED Code Problem Pain in left hip M25.552 Active 83566771 Problem Other chronic pain G89.29 Active 78598699 Problem Low back pain M54.5 Active 476604933 Problem Chronic pain syndrome G89.4 Active 243590011 Problem Pain in right hip M25.551 Active 65692176 Problem Arthritis M19.90 Active 4370395 Problem Chronic obstructive pulmonary disease, unspecified COPD type J44.9 Active 69234308 ALLERGIES No Information ENCOUNTERS Encounter Location Date Diagnosis [place] [address] [address] Mar, Chronic pain syndrome G89.4 [place] [address] [place] [address] 08238- 7579 Mar, Chronic pain syndrome G89.4 [place] [address] [address] 8[address] February, Low back pain M54.5 ; Other chronic pain G89.29 ; Arthritis M19.90 and Drug-induced constipation K59.03 [facility] [address] [address] February, [place] [address] [id number] [place] [address] 80870- 6579 February, Chronic pain syndrome G89.4 [place] [address] [address]- 0354 February, Chronic pain syndrome G89.4 [place] [address] [address]- 3316 February, [facility] [id number] [place] [address] 19801- 1906 Jan, Chronic pain syndrome G89.4 [facility] [address] [address]- 5936 Dec, [facility] [id number] [place] [address] 30125- 1426 Dec, Chronic pain syndrome G89.4 ; Arthritis M19.90 ; Chronic obstructive pulmonary disease, unspecified COPD type J44.9 and Labile hypertension R09.89 [facility] [id number] [place] [address] 18833- 4876 Dec, Chronic pain syndrome G89.4 [facility] [id number] [place] [address] 16213- 7186 Dec, [facility] [id number] [place] [address] 37297- 4059 Nov, [facility] [id number] [place] [address] 34093- 6466 Nov, Chronic pain syndrome G89.4 [facility] [address] [address] 2546 Oct, Chronic pain syndrome G89.4 [facility] [address] [address]- 2876 Oct, Chronic pain syndrome G89.4 [facility] [address] [address] 2546 Oct, Chronic pain syndrome G89.4 [facility] [address] [address]- 2546 Oct, Chronic pain syndrome G89.4 ; Pain in right hip M25.551 ; Pain in left hip M25.552 and Chronic obstructive pulmonary disease, unspecified COPD type J44.9 [facility] [address] [facility] [id number] [place] [address]- 6211 Sep, [facility] [address] [facility] [id number] [address]- 9071 Jun, [facility] [address] [facility] [id number] [address]- 3093 Jun, IMMUNIZATIONS No Known Immunizations SOCIAL HISTORY Never Assessed REASON FOR VISIT Refill request PLAN OF CARE VITAL SIGNS MEDICATIONS Unknown [...]
--- OUTSIDE RECORDS SUMMARY | 2018-06-22 21:52 | XMS REPORT ---
Author Author OLEGARIO ROSENTHAL [facility] Address [address] [place] [address] Care Team Providers Care Registered Pharmacy Technician Name Role Phone OLEGARIO ROSENTHAL Unavailable PROBLEMS Type Condition ICD9-CM Code SNK18-WY Code Onset Dates Condition Status SNOMED Code Problem Pain in left hip M25.552 Active 62476322 Problem Other chronic pain G89.29 Active 87092091 Problem Low back pain M54.5 Active 557679849 Problem Chronic pain syndrome G89.4 Active 540738506 Problem Pain in right hip M25.551 Active 80162561 Problem Arthritis M19.90 Active 3322107 Problem Chronic obstructive pulmonary disease, unspecified COPD type J44.9 Active 22706987 ALLERGIES No Information ENCOUNTERS Encounter Location Date Diagnosis [place] [address], [place] [address]- 7[address] Mar, Chronic pain syndrome G89.4 [place] [address] [place] [address] 33514- 0899 Mar, Chronic pain syndrome G89.4 [place] [address], [place] [address]- 4812 February, Low back pain M54.5 ; Other chronic pain G89.29 ; Arthritis M19.90 and Drug-induced constipation K59.03 [facility] [address], [place] [address]- 2526 February, [place] [id number] [place] [address] 24557- 6054 February, Chronic pain syndrome G89.4 [place] [address], [place] [address]- 8855 February, Chronic pain syndrome G89.4 [place] [address], [place] [address]- 5686 February, [facility] [id number] [place] [address] 04424- 1936 Jan, Chronic pain syndrome G89.4 [facility] [address], [place] [address]- 3536 Dec, [facility] [id number] [place] [address] 84674- 3026 Dec, Chronic pain syndrome G89.4 ; Arthritis M19.90 ; Chronic obstructive pulmonary disease, unspecified COPD type J44.9 and Labile hypertension R09.89 [facility] [id number] [place] [address] 97002- 7046 Dec, Chronic pain syndrome G89.4 [facility] [id number] [place] [address] 94932- 0616 Dec, [facility] [id number] [place] [address] 28605- 5556 Nov, [facility] [id number] [place] [address] 99157- 2426 Nov, Chronic pain syndrome G89.4 [facility] [address], [place] [address] 2546 Oct, Chronic pain syndrome G89.4 [facility] [address], [place] [address]- 8176 Oct, Chronic pain syndrome G89.4 [facility] [address], [place] [address] 2546 Oct, Chronic pain syndrome G89.4 [facility] [address], [place] [address]- 2546 Oct, Chronic pain syndrome G89.4 ; Pain in right hip M25.551 ; Pain in left hip M25.552 and Chronic obstructive pulmonary disease, unspecified COPD type J44.9 [facility] [address] [facility] [place] [id number] [place] [address]- 8376 Sep, [facility] [address] [facility] [place] [place] [id number], [place] [address]- 3536 Jun, [facility] [address] [facility] [place] [place] [id number] [address]- 8846 Jun, IMMUNIZATIONS No Known Immunizations SOCIAL HISTORY Never Assessed REASON FOR VISIT Morphine and Ambien 12/22 PLAN OF CARE VITAL SIGNS MEDICATIONS Medication Instructions Dosage Frequency Start Date End Date Duration Status Morphine Sulfate ER 100 mg Orally 2 times a day 2 tablet 12h 27 Nov, 2017 28 days Active Ambien 10 mg Orally [...]
--- OUTSIDE RECORDS SUMMARY | 2018-06-22 21:52 | XMS REPORT ---
Author Author OLEGARIO ROSENTHAL Organization [facility] Address [address] [place] [address] Care Team Providers Care Environmental Management Specialist Name Role Phone OLEGARIO ROSENTHAL Unavailable PROBLEMS Type Condition ICD9-CM Code CLP04-LV Code Onset Dates Condition Status SNOMED Code Problem Pain in right hip M25.551 Active 07827807 Problem Pain in left hip M25.552 Active 18942502 Problem Other proteinuria R80.8 Active 31931551 Problem Low back pain M54.5 Active 162287928 Problem Chronic obstructive pulmonary disease, unspecified COPD type J44.9 Active 99097818 Problem Chronic pain syndrome G89.4 Active 228962014 Problem Other chronic pain G89.29 Active 57641081 Problem Arthritis M19.90 Active 8570128 ALLERGIES No Information ENCOUNTERS Encounter Location Date Diagnosis [place] [id number] [place] [address] 23137- 8582 Apr, Localized edema R60.0 and Other proteinuria R80.8 [place] [address] [id number] [place] [address] 60747- 1356 Apr, Chronic pain syndrome G89.4 [place] [id number] [place] [address] 17661- 1679 Mar, Chronic pain syndrome G89.4 [place] [id number] [place] [address] 04377- 7253 15 Mar, 2018 Chronic pain syndrome G89.4 [place] [id number] [place] [address] 92627- 1610 February, Low back pain M54.5 ; Other chronic pain G89.29 ; Arthritis M19.90 and Drug-induced constipation K59.03 [place] [id number] [place] [address] 51438- 2038 February, [facility] [address], [place] [address]- 6868 February, Chronic pain syndrome G89.4 [facility] [address] [address] February, Chronic pain syndrome G89.4 [facility] [address], [place] [address]- 7399 February, [facility] [address], [place] [address]- 0728 Jan, Chronic pain syndrome G89.4 [facility] [address] [place] [address] 34102- 2253 Dec, [facility] [address] [place] [address] 57886- 4299 Dec, Chronic pain syndrome G89.4 ; Arthritis M19.90 ; Chronic obstructive pulmonary disease, unspecified COPD type J44.9 and Labile hypertension R09.89 [facility] [address], [place] [address]- 2614 Dec, Chronic pain syndrome G89.4 [facility] [address], [place] [address]- 7013 Dec, [facility] [address], [place] [address]- 3770 Nov, [facility] [address], [place] [address]- 7717 Nov, Chronic pain syndrome G89.4 [facility] [address], [place] [address]- 9817 Oct, Chronic pain syndrome G89.4 [facility] [address], [place] [address]- 9861 Oct, Chronic pain syndrome G89.4 [facility] [address], [place] [address]- 2546 Oct, Chronic pain syndrome G89.4 [place] [address] [id number], [place] [address]- 7266 Oct, Chronic pain syndrome G89.4 ; Pain in right hip M25.551 ; Pain in left hip M25.552 and Chronic obstructive pulmonary disease, unspecified COPD type J44.9 [place] [id number], [place] [address]- 4016 Sep, [place] [id number], [place] [address]- 8296 Jun, [place] [address] [id number], [place] [address]- 5209 Jun, IMMUNIZATIONS No Known Immunizations SOCIAL HISTORY Never Assessed REASON FOR VISIT Ms COntin 01/19 PLAN OF CARE VITAL SIGNS MEDICATIONS Medication Instructions Dosage Frequency Start Date End Date Duration Status Morphine Sulfate ER 100 mg Orally 2 times a day 2 tablet 12h Dec, 28 days Active Ambien 10 mg Orally [...]
--- OUTSIDE RECORDS SUMMARY | 2018-06-22 21:52 | XMS REPORT ---
Author Author OLEGARIO ROSENTHAL [facility] Address [address] [place] [address] Care Team Providers Care Flavor Extractor Name Role Phone OLEGARIO ROSENTHAL Unavailable PROBLEMS Type Condition ICD9-CM Code YSZ28-MX Code Onset Dates Condition Status SNOMED Code Problem Pain in left hip M25.552 Active 95072287 Problem Other chronic pain G89.29 Active 29884366 Problem Low back pain M54.5 Active 036575928 Problem Chronic pain syndrome G89.4 Active 569555567 Problem Pain in right hip M25.551 Active 28272932 Problem Arthritis M19.90 Active 2907667 Problem Chronic obstructive pulmonary disease, unspecified COPD type J44.9 Active 52234090 ALLERGIES No Information ENCOUNTERS Encounter Location Date Diagnosis [place] [address], [place] [address]- 2838 Mar, Chronic pain syndrome G89.4 [place] [address] [place] [address] 26226- 8298 Mar, Chronic pain syndrome G89.4 [place] [address], [place] [address]- 7412 February, Low back pain M54.5 ; Other chronic pain G89.29 ; Arthritis M19.90 and Drug-induced constipation K59.03 [facility] [address], [place] [address]- 3940 February, [place] [address] [id number] [place] [address] 10100- 2896 February, Chronic pain syndrome G89.4 [place] [address], [place] [address]- 6119 February, Chronic pain syndrome G89.4 [place] [address], [place] [address]- 9806 February, [facility] [id number] [place] [address] 74040- 6666 Jan, Chronic pain syndrome G89.4 [facility] [address], [place] [address]- 2996 Dec, [facility] [id number] [place] [address] 64471- 5256 Dec, Chronic pain syndrome G89.4 ; Arthritis M19.90 ; Chronic obstructive pulmonary disease, unspecified COPD type J44.9 and Labile hypertension R09.89 [facility] [id number] [place] [address] 95893- 1196 Dec, Chronic pain syndrome G89.4 [facility] [id number] [place] [address] 77524- 8256 Dec, [facility] [id number] [place] [address] 81821- 5439 Nov, [facility] [id number] [place] [address] 41095- 4056 Nov, Chronic pain syndrome G89.4 [facility] [address], [place] [address] 2546 Oct, Chronic pain syndrome G89.4 [facility] [address], [place] [address]- 8516 Oct, Chronic pain syndrome G89.4 [facility] [address], [place] [address] 2546 Oct, Chronic pain syndrome G89.4 [facility] [address], [place] [address]- 2546 Oct, Chronic pain syndrome G89.4 ; Pain in right hip M25.551 ; Pain in left hip M25.552 and Chronic obstructive pulmonary disease, unspecified COPD type J44.9 [facility] [address] [facility] [id number] [place] [address]- [address] Sep, [facility] [address] [facility] [id number], [place] [address]- [address] Jun, [facility] [address] [facility] [id number], [place] [address]- [address] Jun, IMMUNIZATIONS No Known Immunizations SOCIAL HISTORY Never Assessed REASON FOR VISIT Controlled Med Refill PLAN OF CARE VITAL SIGNS MEDICATIONS Medication Instructions Dosage Frequency Start Date End Date Duration Status Morphine Sulfate ER 100 mg Orally 2 times a day 2 tablet 12h Oct, Nov, 28 days Active RESULTS No Results PROCEDURES [...]
--- OUTSIDE RECORDS SUMMARY | 2018-06-22 21:52 | XMS REPORT ---
Author Author OLEGARIO ROSENTHAL [facility] Address [address] [place] [address] Care Team Providers Care Burr Mill Operator Name Role Phone OLEGARIO ROSENTHAL Unavailable PROBLEMS Type Condition ICD9-CM Code [id number] Code Onset Dates Condition Status SNOMED Code Problem Pain in left hip M25.552 Active 29700772 Problem Other chronic pain G89.29 Active 44778823 Problem Low back pain M54.5 Active 752279140 Problem Chronic pain syndrome G89.4 Active 713292743 Problem Pain in right hip M25.551 Active 71736652 Problem Arthritis M19.90 Active 1784015 Problem Chronic obstructive pulmonary disease, unspecified COPD type J44.9 Active 12344841 ALLERGIES No Information ENCOUNTERS Encounter Location Date Diagnosis [place] [address], [place] [address] Mar, Chronic pain syndrome G89.4 [place] [address] [place] [address]- 1792 Mar, Chronic pain syndrome G89.4 [place] [address], [place] [address] February, Low back pain M54.5 ; Other chronic pain G89.29 ; Arthritis M19.90 and Drug-induced constipation K59.03 [facility] [address] [address] February, [place] [address] [place] [id number] [place] [address]373- 1581 February, Chronic pain syndrome G89.4 [place] [address], [place] [address] February, Chronic pain syndrome G89.4 [place] [address], [place] [address] February, [facility] [address] [place] [address] [id number] [place] [address]95- 2596 Jan, Chronic pain syndrome G89.4 [facility] [address], [place] [address] 6[address] Dec, [facility] [address] [place] [address] [id number] [place] [address]32- 1276 Dec, Chronic pain syndrome G89.4 ; Arthritis M19.90 ; Chronic obstructive pulmonary disease, unspecified COPD type J44.9 and Labile hypertension R09.89 [facility] [address] [place] [address] [id number] [place] [address] 67114- 2506 Dec, Chronic pain syndrome G89.4 [facility] [address] [place] [address] [id number] [place] [address] 04001- 9226 Dec, [facility] [address] [place] [address] [id number] [place] [address] 90752- 7931 Nov, [facility] [address] [place] [address] [id number] [place] [address]18- 3816 Nov, Chronic pain syndrome G89.4 [facility] [address], [place] [address] 2546 Oct, Chronic pain syndrome G89.4 [facility] [address], [place] [address] 30[address] Oct, Chronic pain syndrome G89.4 [facility] [address], [place] [address] 2546 Oct, Chronic pain syndrome G89.4 [facility] [address], [place] [address] Oct, Chronic pain syndrome G89.4 ; Pain in right hip M25.551 ; Pain in left hip M25.552 and Chronic obstructive pulmonary disease, unspecified COPD type J44.9 [facility] [address] [facility] [id number] [place] [address] Sep, [facility] [address] [facility] [id number] [address] Jun, [facility] [address] [facility] [id number], [place] [address] Jun, IMMUNIZATIONS No Known Immunizations SOCIAL HISTORY Never Assessed REASON FOR VISIT [facility] [place] PLAN OF CARE VITAL SIGNS MEDICATIONS Unknown Medications RESULTS Name Result Date Reference Range [employer] 2017-11-24 PROCEDURES Procedure Date Ordered Result Body Site No Charge Nov 24, 2017 INSTRUCTIONS MEDICATIONS ADMINISTERED No Known Medications MEDICAL (GENERAL) HISTORY Type Description Date Medical History avascular necrosis Medical History pacemaker Medical History 22 hip replacements Surgical History 11 replacements on right and 11 replacements on left hips Surgical History back surgery ruptured disk 1973 Hospitalization History Surgery(s) only
--- OUTSIDE RECORDS SUMMARY | 2018-06-22 21:52 | XMS REPORT ---
Author Author OLEGARIO ROSENTHAL Organization [facility] Address [address] [place] [address] Care Team Providers Care Hourly Sign Language Interpreter Name Role Phone OLEGARIO ROSENTHAL Unavailable PROBLEMS Type Condition ICD9-CM Code [id number] Code Onset Dates Condition Status SNOMED Code Problem Pain in left hip M25.552 Active 72021333 Problem Other chronic pain G89.29 Active 38496612 Problem Low back pain M54.5 Active 192312412 Problem Chronic pain syndrome G89.4 Active 992557337 Problem Pain in right hip M25.551 Active 35535675 Problem Arthritis M19.90 Active 2416591 Problem Chronic obstructive pulmonary disease, unspecified COPD type J44.9 Active 60408771 ALLERGIES Substance Reaction Event Type Date Status Codeine Sulfate hives Drug Allergy Sep, Active ENCOUNTERS Encounter Location Date Diagnosis [facility] [address] [place] [id number] [place] [address]29- 4175 February, Low back pain M54.5 ; Other chronic pain G89.29 ; Arthritis M19.90 and Drug-induced constipation K59.03 [facility] [address], [place] [address] February, [facility] [address] [place] [id number] [place] [address] 89303- 1633 February, Chronic pain syndrome G89.4 [facility] [address], [place] [address] 40[address] February, Chronic pain syndrome G89.4 [facility] [address] [place] [address] 63660- 1351 February, [facility] [address], [place] [address] 9[address] Jan, Chronic pain syndrome G89.4 [facility] [address], [place] [address] Dec, [facility] [address] [place] [id number] [place] [address] 55995- 9796 Dec, Chronic pain syndrome G89.4 ; Arthritis M19.90 ; Chronic obstructive pulmonary disease, unspecified COPD type J44.9 and Labile hypertension R09.89 [facility] [address] [place] [id number] [place] [address]137 2546 Dec, Chronic pain syndrome G89.4 [facility] [address] [place] [id number] [place] [address] 97486- 5136 Dec, [facility] [address] [place] [id number] [place] [address] 80775- 4036 Nov, [facility] [address] [place] [id number] [place] [address] 56112- 0596 Nov, Chronic pain syndrome G89.4 [facility] [address] [id number] [address] 5[address] Oct, Chronic pain syndrome G89.4 [facility] [address] [place] [id number] [place] [address] 2546 Oct, Chronic pain syndrome G89.4 [facility] [address], [place] [address] 2546 Oct, Chronic pain syndrome G89.4 [facility] [address], [place] [address] 2546 Oct, Chronic pain syndrome G89.4 ; Pain in right hip M25.551 ; Pain in left hip M25.552 and Chronic obstructive pulmonary disease, unspecified COPD type J44.9 [facility] [address], [place] [address]- 25[address] Sep, [facility] [address], [place] [address]- 27[address] Jun, [facility] [address] [facility] [id number] [place] [address] 3[address] Jun, IMMUNIZATIONS No Known Immunizations SOCIAL HISTORY Never Assessed REASON FOR VISIT [facility] PLAN OF CARE VITAL SIGNS MEDICATIONS Medication Instructions Dosage Frequency Start Date End Date Duration Status Movantik 25 MG Orally Once a day 1 tablet in the morning 24h Not- Taking Ambien 10 MG Orally Once a day 1 tablet at bedtime as needed 24h Not-Taking Flexeril Not-Taking Morphine Sulfate ER 100 mg 2 tablets in am 1 at noon and 2 in evening Not-Taking Xanax 1 MG Orally 3 1 tablet Not-Taking RESULTS No Results PROCEDURES No Known procedures INSTRUCTIONS MEDICATIONS ADMINISTERED No Known Medications MEDICAL (GENERAL) HISTORY Type Description Date Medical History avascular necrosis Medical History pacemaker 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
--- OUTSIDE RECORDS SUMMARY | 2018-06-22 21:52 | XMS REPORT ---
Author Author OLEGARIO ROSENTHAL Organization [facility] Address [address] [place] [address] Care Team Providers Care Laborer Vineyard Name Role Phone OLEGARIO ROSENTHAL Unavailable PROBLEMS Type Condition ICD9-CM Code RHE74-IF Code Onset Dates Condition Status SNOMED Code Problem Pain in right hip M25.551 Active 37218782 Problem Pain in left hip M25.552 Active 50897394 Problem Other proteinuria R80.8 Active 18896096 Problem Low back pain M54.5 Active 410539171 Problem Chronic obstructive pulmonary disease, unspecified COPD type J44.9 Active 29859484 Problem Chronic pain syndrome G89.4 Active 060047238 Problem Other chronic pain G89.29 Active 58451518 Problem Arthritis M19.90 Active 7564596 ALLERGIES No Information ENCOUNTERS Encounter Location Date Diagnosis [place] [address] [place] [id number] [place] [address]79[address]- 3835 Apr, Localized edema R60.0 and Other proteinuria R80.8 [place] [address] [place] [id number] [place] [address] 95681- 4113 Apr, Chronic pain syndrome G89.4 [place] [address] [place] [id number] [place] [address] 01584- 5605 Mar, Chronic pain syndrome G89.4 [place] [address] [place] [id number] [place] [address] 02072- 6243 15 Mar, 2018 Chronic pain syndrome G89.4 [place] [address] [place] [id number] [place] [address] 38670- 2386 February, Low back pain M54.5 ; Other chronic pain G89.29 ; Arthritis M19.90 and Drug-induced constipation K59.03 [place] [address] [place] [id number] [place] [address] 48310- 6157 February, [facility] [address], [place] [address]- 5227 February, Chronic pain syndrome G89.4 [facility] [address] February, Chronic pain syndrome G89.4 [facility] [address], [place] [address]- 9987 February, [facility] [address] [address]- 3065 Jan, Chronic pain syndrome G89.4 [facility] [address] [place] [address] 10712- 8132 Dec, [facility] [address] [place] [address] 41877- 9179 Dec, Chronic pain syndrome G89.4 ; Arthritis M19.90 ; Chronic obstructive pulmonary disease, unspecified COPD type J44.9 and Labile hypertension R09.89 [facility] [address] [address]- 3573 Dec, Chronic pain syndrome G89.4 [facility] [address] [address]- 2308 Dec, [facility] [address] [address]- 7866 Nov, [facility] [address] [address]- 2086 Nov, Chronic pain syndrome G89.4 [facility] [address] [address]- 7289 Oct, Chronic pain syndrome G89.4 [facility] [address] [address]- 2930 Oct, Chronic pain syndrome G89.4 [facility] [address] [address]- 1146 Oct, Chronic pain syndrome G89.4 [place] [address] [address]30 Oct, Chronic pain syndrome G89.4 ; Pain in right hip M25.551 ; Pain in left hip M25.552 and Chronic obstructive pulmonary disease, unspecified COPD type J44.9 [place] [address] Sep, [place] [address] [place] [id number] [address]- 3793 Jun, [place] [address] [address] 34[address] Jun, IMMUNIZATIONS No Known Immunizations SOCIAL HISTORY Never Assessed REASON FOR VISIT Controlled Med Refill / Morphine PLAN OF CARE VITAL SIGNS MEDICATIONS Unknown [...]
--- OUTSIDE RECORDS SUMMARY | 2018-06-22 21:53 | XMS REPORT ---
Author Author OLEGARIO ROSENTHAL [facility] Address [address] [place] [address] Care Team Providers Care Alternative Financing Specialist Name Role Phone OLEGARIO ROSENTHAL Unavailable PROBLEMS Type Condition ICD9-CM Code MFD69-QR Code Onset Dates Condition Status SNOMED Code Problem Pain in left hip M25.552 Active 69108686 Problem Other chronic pain G89.29 Active 22878843 Problem Low back pain M54.5 Active 200003898 Problem Chronic pain syndrome G89.4 Active 719123636 Problem Pain in right hip M25.551 Active 89736824 Problem Arthritis M19.90 Active 7214100 Problem Chronic obstructive pulmonary disease, unspecified COPD type J44.9 Active 95154845 ALLERGIES No Information ENCOUNTERS Encounter Location Date Diagnosis [place] [address], [place] [address]- [address] Mar, Chronic pain syndrome G89.4 [place] [address] [place] [address] 31529- 7618 Mar, Chronic pain syndrome G89.4 [place] [address], [place] [address]- 4792 February, Low back pain M54.5 ; Other chronic pain G89.29 ; Arthritis M19.90 and Drug-induced constipation K59.03 [facility] [address], [place] [address]- 8686 February, [place] [address] [place] [id number] [place] [address] 53992- 4472 February, Chronic pain syndrome G89.4 [place] [address], [place] [address]- 9963 February, Chronic pain syndrome G89.4 [place] [address], [place] [address]- 9556 February, [facility] [address] [place] [id number] [place] [address] 69055- 7996 Jan, Chronic pain syndrome G89.4 [facility] [address], [place] [address]- 7606 Dec, [facility] [address] [place] [id number] [place] [address] 46268- 2106 Dec, Chronic pain syndrome G89.4 ; Arthritis M19.90 ; Chronic obstructive pulmonary disease, unspecified COPD type J44.9 and Labile hypertension R09.89 [facility] [address] [id number] [place] [address] 58944- 7146 Dec, Chronic pain syndrome G89.4 [facility] [id number] [place] [address] 43736- 1646 Dec, [facility] [id number] [place] [address] 47657- 3656 Nov, [facility] [address] [id number] [place] [address] 78677- 9776 Nov, Chronic pain syndrome G89.4 [facility] [address], [place] [address] 2546 Oct, Chronic pain syndrome G89.4 [facility] [address], [place] [address]- 5816 Oct, Chronic pain syndrome G89.4 [facility] [address], [place] [address] 2546 Oct, Chronic pain syndrome G89.4 [facility] [address], [place] [address]- 2546 Oct, Chronic pain syndrome G89.4 ; Pain in right hip M25.551 ; Pain in left hip M25.552 and Chronic obstructive pulmonary disease, unspecified COPD type J44.9 [facility] [address] [facility] [id number] [place] [address]- 6568 Sep, [facility] [address] [facility] [id number], [place] [address]- 3958 Jun, [facility] [address] [facility] [id number], [place] [address]- 2417 Jun, IMMUNIZATIONS No Known Immunizations SOCIAL HISTORY Never Assessed REASON FOR VISIT medication PLAN OF CARE VITAL SIGNS MEDICATIONS Unknown [...]
[2018-06-22] MEDS ORDERED: ALBU18HF2 INH (21:59)
[2018-06-22] MEDS ORDERED: FURO40TA4 PO (21:59)
[2018-06-22] MEDS ORDERED: NAPR-915 PO (21:59)
[2018-06-22] MEDS ORDERED: POLY255P PO (21:59)
[2018-06-22 22:42] LABS: BASOPHILS # (AUTO) 0.1 10^3/uL (0.0-0.1); BASOPHILS % (AUTO) 1 % (0-10); EOSINOPHILS # (AUTO) 0.1 10^3/uL (0.0-0.3); EOSINOPHILS % (AUTO) 1 % (0-10); HEMATOCRIT 41 % (40-54); HEMOGLOBIN 14.6 G/DL (13.3-17.7); LYMPHOCYTES # (AUTO) 2.6 X 10^3 (1.0-4.0); LYMPHOCYTES % (AUTO) 24 % (12-44); MEAN CORPUSCULAR HEMOGLOBIN 32 PG (25-34); MEAN CORPUSCULAR HGB CONC 35 G/DL (32-36); MEAN CORPUSCULAR VOLUME 90 FL (80-99); MEAN PLATELET VOLUME 10.6 FL (7.4-10.4); MONOCYTES # (AUTO) 1.1 X 10^3 (0.0-1.0); MONOCYTES % (AUTO) 10 % (0-12); NEUTROPHILS # (AUTO) 6.7 X 10^3 (1.8-7.8); NEUTROPHILS % (AUTO) 63 % (42-75); PLATELET COUNT 348 10^3/uL (130-400); WHITE BLOOD COUNT 10.5 10^3/uL (4.3-11.0)
[2018-06-22 23:01] LABS: ERYTHROCYTE SEDIMENTATION RATE 28 MM/HR (0-30)
[2018-06-22 23:08] LABS: ALANINE AMINOTRANSFERASE 15 U/L (0-55); ALBUMIN 3.7 GM/DL (3.2-4.5); ALKALINE PHOSPHATASE 149 U/L (40-136); BILIRUBIN,TOTAL 0.6 MG/DL (0.1-1.0); BUN/CREATININE RATIO 14; CALCIUM 9.4 MG/DL (8.5-10.1); CARBON DIOXIDE 25 MMOL/L (21-32); CHLORIDE 100 MMOL/L (98-107); CREATININE SERUM 0.83 MG/DL (0.60-1.30); GFR ESTIMATED > 60; GLUCOSE 98 MG/DL (70-105); POTASSIUM 3.7 MMOL/L (3.6-5.0); SODIUM 141 MMOL/L (135-145); TOTAL PROTEIN 6.8 GM/DL (6.4-8.2)
[2018-06-22] MEDS ORDERED: VANCOMYCIN INJECTION 1,000 MG in NS (IVPB) 250 ML IV ONE (23:45)
--- NOTE | 2018-06-22 23:45 | ED Lower Extremity ---
General Chief Complaint: Skin/Wound Problems Stated Complaint: LEG INFECTION Nursing Triage Note: BILATERAL LOWER EXT. SWELLING/REDNESS Nursing Sepsis Screen: No Definite Risk Source: patient, old records History of Present Illness Date Seen by Provider: Jun 22, 2018 Time Seen by Provider: 21:55 Initial Comments PT ARRIVES VIA EMS FROM HOME C/O REDNESS, SWELLING AND PAIN TO LEFT LOWER LEG FOR AT LEAST A MONTH, NOW IS STARTING TO GET A SIMILAR AREA ON RIGHT LOWER LEG PT HAS HISTORY OF CELLULITIS IN LEGS AND THIS IS THE SAME SEEN BY DR. ROSENTHAL A COUPLE OF WEEKS AGO FOR THIS PROBLEM AND WAS PRESCRIBED DOXYCYCLINE X 7 DAYS--RAN OUT 4 DAYS AGO PT STATES AREA HAS CONTINUED TO BECOME MORE RED, SWOLLEN AND PAINFUL PT HAS BEEN RUNNING FEVER OFF AND ON FOR THE LAST 5 DAYS--UP TO 100.2 NO CHEST PAIN NO SHORTNESS OF BREATH SYMPTOMS ARE NO DIFFERENT TONIGHT HAS NOT ATTEMPTED TO FOLLOW UP WITH DR. 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 SQUIRES Allergies and Home Medications Allergies Coded Allergies: codeine (Verified Allergy, Mild, HIVES...TAKES OXYCODONE & MS CONTIN AT HOME, 07/29/07) streptokinase (Verified Allergy, Unknown, 07/29/07) Home Medications Alprazolam 1 Mg Tablet, 1 MG PO TID PRN for ANXIETY, (Reported) Apixaban 5 Mg Tablet, 5 MG PO BID Prescribed by: ANALY CLARK on 02/20/17 1339 Aspirin 81 Mg Tab.chew, 81 MG PO DAILY Prescribed by: JILLIAN LOPEZ on 08/15/17 1227 Cyclobenzaprine HCl 10 Mg Tablet, 10 MG PO TID PRN for MUSCLE SPASMS, (Reported) Metoprolol Succinate 50 Mg Tab.er.24h, 50 MG PO DAILY Prescribed by: ANALY CLARK on 02/20/17 1339 Morphine Sulfate 100 Mg Tablet.er, 200 MG PO BID, (Reported) TAKES 2 (100MG) TABLETS Nitroglycerin 0.4 Mg Tab.subl, 0.4 MG SL UD PRN for CHEST PAIN, (Reported) Zolpidem Tartrate 10 Mg Tablet, 10 MG PO HS PRN for SLEEP, (Reported) Patient Home Medication List Home Medication List Reviewed: Yes Review of Systems Constitutional: see HPI, fever Respiratory: no symptoms reported Cardiovascular: no symptoms reported Musculoskeletal: see HPI, other (PER HPI) Skin: see HPI (PER HPI) Past Kdkpnoq-Pygemo-Wjykdg Hx Patient Social History Alcohol Use: Past History (HEAVY USE/ABUSE) Number of Drinks Today: GG Alcohol Beverage of Choice: Whiskey Recreational Drug Use: Yes (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, AND HAS REQUIRED INTUBATION IN PAST DUE TO OVERDOSES OF THESE, ALONG WITH ALCOHOL ) 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 Smoking Status: Current Everyday Smoker (2 1/2 PPD) Type Used: Cigarettes 2nd Hand Smoke Exposure: Yes Recent Foreign Travel: No Contact w/Someone Who Travel: No Recent Infectious Disease Expo: No Recent Hopitalizations: No Immunizations Up To Date Tetanus Booster (TDap): Unknown PED Vaccines UTD: No Date of Pneumonia Vaccine: Nov 08, 2012 Date of Influenza Vaccine: Jul 26, 2016 Seasonal Allergies Seasonal Allergies: No Past Medical History Surgeries: Yes (CLAIMS 22 HIP/PELVIS SURGERIES-11 ON EACH HIP, PER PT-- MULTIPLE FAILED HIP REPLACEMENTS AND NOW WITH PERMANENT JOINT REMOVAL; EGD; HERNIA REPAIR; CARDIAC CATHS; LEFT KNEE SURGERY--PATELLA FX/TORN MENISCUS; BACK SURGERY; RIGHT WRIST FX/ORIF; BILATERAL WRIST SURGERY; ELBOW SURGERY) Abdominal, Appendectomy, Cardiac, Defibrillator, Joint Replacement, Orthopedic, Pacemaker Respiratory: Yes (PT INTUBATED IN PAST DUE TO OVERDOSES/ETOH ) Asthma, COPD Currently Using CPAP: No Currently Using BIPAP: No Cardiac: Yes (PACEMAKER, CARDIAC ARREST, SELF - REPORTED AR X 8) Chronic Edema/Swelling, Coronary Artery Disease, Heart Attack, Hypertension, Irregular Heartbeat Neurological: Yes (NO OFFICIAL DX BY PHYSICIAN, BUT PT STATES FEET HAVE BEEN NUMB FOR A LONG TIME) Neuropathy Reproductive Disorders: No Sexually Transmitted Disease: No HIV/AIDS: No Genitourinary: Yes (PT SELF-CATH'S ) Neurogenic Bladder Gastrointestinal: Yes Abdominal Hernia Musculoskeletal: Yes (MULTIPLE FAILED BILATERAL HIP REPLACEMENTS, NOW WITH PERMANENT REMOVAL OF HIP JOINTS AND HARDWARD-DUE TO AVASCULAR NECROSIS OF HIPS; PT IS WHEELCHAIR-BOUND / NON-AMBULATORY; MULTIPLE FRACTURES AND ORTHO SURGERIES ; CHRONIC GENERALIZED PAIN COMPLAINTS--NARCOTIC DEPENDENT) Arthritis, Chronic Back Pain, Fractures Endocrine: Yes (OBESITY) Diabetes, Insulin dep HEENT: Yes Dysphagia Loss of Vision: Denies Hearing Impairment: Hard of Hearing Cancer: No Psychosocial: Yes (ALCOHOL/POLYSUBSTANCE ABUSE/OVERDOSES-INTUBATED 2013, INCARCERATIONS) Suicide Attempts, Depression Integumentary: Yes Recent Skin Changes Blood Disorders: No Family Medical History Patient reports no known family medical history. Physical Exam Vital Signs Vital Signs - First Documented 06/22/18 21:50 Temp 98.3 Pulse 86 Resp 16 B/P (MAP) 142/79 (100) Pulse Ox 93 O2 Delivery Room Air Capillary Refill : Less Than 3 Seconds Height, Weight, BMI Height: 5'8.00" Weight: 179lbs. 0oz. 81.610537hl; 30.3 BMI Method:Stated General Appearance: no apparent distress, obese, other (SMILING, TALKATIVE. PLEASANT. +ODOR OF CIGARETTES. DOES NOT APPEAR TO BE IN ANY DISCOMFORT WHATSOEVER) HEENT: PERRL/EOMI Neck: normal inspection Cardiovascular: regular rate, rhythm, no murmur Respiratory: normal breath sounds Legs: bilateral leg other (RIGHT LEG WITH 2+ EDEMA AND APPROXIMATELY 5 CM AREA OF ERYTHEMA, WARMTH AND INDURATION TO MID / MEDIAL ASPECT OF LOWER LEG WITH MILD TENDERNESS TO AREA. LEFT LEG WITH 4+ EDEMA, AND DIFFUSE ERYTHEMA, WARMTH , INDURATION AND TENDERNESS TO ENTIRE LOWER LEG. NO WOUNDS OR WEEPING. NO AREAS OF FLUCTUANCE, NO STREAKS. UNABLE TO PALPATE PULSES DUE TO EDEMA. BOTH FEET ARE WARM AND PINK. PT WITH CHRONIC DECREASED SENSATION TO BOTH FEET. DISTAL MOTOR INTACT. ) Neurologic/Psychiatric: seafood packer II-XII nml as tested, alert, normal mood/affect, oriented x 3, sensory deficit Skin: normal color, warm/dry, other ( ABOVE) Progress/Results/Core Measures Results/Orders Lab Results Laboratory Tests Test 06/22/18 22:30 Range/Units White Blood Count 10.5 4.3-11.0 10^3/uL Red Blood Count 4.60 4.35-5.85 10^6/uL Hemoglobin 14.6 13.3-17.7 G/DL Hematocrit 41 40-54 % Mean Corpuscular Volume 90 80-99 FL Mean Corpuscular Hemoglobin 32 25-34 PG Mean Corpuscular Hemoglobin Concent 35 32-36 G/DL Red Cell Distribution Width 14.0 10.0-14.5 % Platelet Count 348 130-400 10^3/uL Mean Platelet Volume 10.6 H 7.4-10.4 FL Neutrophils (%) (Auto) 63 42-75 % Lymphocytes (%) (Auto) 24 12-44 % Monocytes (%) (Auto) 10 0-12 % Eosinophils (%) (Auto) 1 0-10 % Basophils (%) (Auto) 1 0-10 % Neutrophils # (Auto) 6.7 1.8-7.8 X 10^3 Lymphocytes # (Auto) 2.6 1.0-4.0 X 10^3 Monocytes # (Auto) 1.1 H 0.0-1.0 X 10^3 Eosinophils # (Auto) 0.1 0.0-0.3 10^3/uL Basophils # (Auto) 0.1 0.0-0.1 10^3/uL Erythrocyte Sedimentation Rate 28 0-30 MM/HR Sodium Level 141 135-145 MMOL/L Potassium Level 3.7 3.6-5.0 MMOL/L Chloride Level 100 98-107 MMOL/L Carbon Dioxide Level 25 21-32 MMOL/L Anion Gap 16 H 5-14 MMOL/L Blood Urea Nitrogen 12 7-18 MG/DL Creatinine 0.83 0.60-1.30 MG/DL Estimat Glomerular Filtration Rate > 60 BUN/Creatinine Ratio 14 Glucose Level 98 70-105 MG/DL Lactic Acid Level 2.11 *H 0.50-2.00 MMOL/L Calcium Level 9.4 8.5-10.1 MG/DL Corrected Calcium 9.6 8.5-10.1 MG/DL Total Bilirubin 0.6 0.1-1.0 MG/DL Aspartate Amino Transf (AST/SGOT) 27 5-34 U/L Alanine Aminotransferase (ALT/SGPT) 15 0-55 U/L Alkaline Phosphatase 149 H 40-136 U/L C-Reactive Protein High Sensitivity 4.88 H 0.00-0.50 MG/DL Total Protein 6.8 6.4-8.2 GM/DL Albumin 3.7 3.2-4.5 GM/DL My Orders Orders - WILFRED CAMPBELL DO Saline Lock/Iv-Start (06/22/18 22:01) Cbc With Automated Diff (06/22/18 22:01) Comprehensive Metabolic Panel (06/22/18 22:01) Hs C Reactive Protein (06/22/18 22:01) Erythrocyte Sedimentation Rate (06/22/18 22:01) Lactic Acid Analyzer (06/22/18 22:01) Blood Culture (06/22/18 22:01) Us Venous Lower Ext Lt (06/22/18 22:18) Vancomycin Injection (Vancomycin Injecti (06/22/18 23:45) Medications Given in ED Current Medications Medications Dose Ordered Sig/Carl Route Start Time Stop Time Status Last Admin Dose Admin Vancomycin HCl 1000 mg/Sodium Chloride 250 ml @ 250 mls/hr ONCE ONCE IV 06/22/18 23:45 06/23/18 00:44 DC 06/23/18 00:00 250 MLS/HR Vital Signs/I&O 06/22/18 21:50 Temp 98.3 Pulse 86 Resp 16 B/P (MAP) 142/79 (100) Pulse Ox 93 O2 Delivery Room Air Blood Pressure Mean: 100 Progress Progress Note : Progress Note UNEVENTFUL ER STAY Diagnostic Imaging Comments ULTRASOUND LEFT LEG--NO DVT, PER TECH REPORT AT 2504, AND PER [facility] VIA FAX AT 2865 Reviewed: Reviewed by Me Departure Communication (Admissions) 2342--ATTEMPTING TO CONTACT DR. VALENTIN, ELECTROMECHANISMS DESIGN DRAFTER FOR [facility]. NO ANSWER, UNABLE TO LEAVE MESSAGE 2838--SPOKE WITH DR. VALENTIN, ACCEPTS PT FOR ADMIT Impression Primary Impression: CELLULITIS OF BILATERAL LOWER LEGS WITH LEFT > RIGHT Additional Impressions: Failure of outpatient treatment IDDM (insulin dependent diabetes mellitus) NON-MBULATORY Disposition: ADMITTED INPATIENT Condition: Stable Admissions Decision to Admit Reason: Admit from ER (General) Decision to Admit/Date: Jun 23, 2018 Time/Decision to Admit Time: 00:01 Departure-Patient Inst. Referrals: OLEGARIO ROSENTHAL MD, LISA K DO Jun 22, 2018 23:45
--- OUTSIDE RECORDS SUMMARY | 2018-06-23 00:11 | XMS REPORT | Clinical Summary ---
Author Author [facility] Organization [facility] Address Unknown Phone Unavailable Care Team Providers Care Snowboard Instructor Name Role Phone Traci Mota MD Unavailable Jonathan Beasley MD PCP Jaja Lujan MD Unavailable Skylar Stevens PA-C Unavailable Source Comments Some departments are not documenting in the electronic medical record. If you do not see the information that you expected, contact Release of Information in the Health Information Management department at [phone] for further assistance in locating additional records.[facility] Allergies Active Allergy Reactions Severity [...] 13 daily. Active Problems Problem Noted Date CO (myocardial infarction) (HCC) 04/04/2014 Pacemaker 04/04/2014 Asthma [...] Taken Blood Pressure 147/78 11/23/2012 8:30 AM RESISTANCE WELDER Pulse 63 11/23/2012 8:30 AM RESISTANCE WELDER Temperature 36.8 C (98.3 F) 11/23/2012 8:30 AM RESISTANCE WELDER Respiratory Rate - - Oxygen Saturation 97% 11/23/2012 8:30 AM RESISTANCE WELDER Inhaled Oxygen - - Concentration Weight 86.2 kg (190 lb) 11/19/2012 9:57 AM RESISTANCE WELDER Height 172.7 cm (5' 8") 11/19/2012 9:57 AM RESISTANCE WELDER Body Mass Index 28.89 11/19/2012 9:57 AM RESISTANCE WELDER Plan of Treatment Health Maintenance Due Date [...]
[2018-06-23] MEDS ORDERED: morphine ER 100 MG (MS CONTIN) TAB PO ONE (02:45)
[2018-06-23 04:30] VITALS: BP 148/67
[2018-06-23 06:41] LABS: BASOPHILS # (AUTO) 0.1 10^3/uL (0.0-0.1); BASOPHILS % (AUTO) 1 % (0-10); EOSINOPHILS # (AUTO) 0.3 10^3/uL (0.0-0.3); EOSINOPHILS % (AUTO) 4 % (0-10); HEMATOCRIT 41 % (40-54); LYMPHOCYTES # (AUTO) 2.3 X 10^3 (1.0-4.0); LYMPHOCYTES % (AUTO) 25 % (12-44); MEAN CORPUSCULAR HEMOGLOBIN 31 PG (25-34); MEAN CORPUSCULAR HGB CONC 34 G/DL (32-36); MEAN CORPUSCULAR VOLUME 91 FL (80-99); MEAN PLATELET VOLUME 10.5 FL (7.4-10.4); MONOCYTES # (AUTO) 1.2 X 10^3 (0.0-1.0); MONOCYTES % (AUTO) 13 % (0-12); NEUTROPHILS # (AUTO) 5.4 X 10^3 (1.8-7.8); NEUTROPHILS % (AUTO) 59 % (42-75); PLATELET COUNT 296 10^3/uL (130-400); RED BLOOD COUNT 4.53 10^6/uL (4.35-5.85); RED CELL DISTRIBUTION WIDTH 14.2 % (10.0-14.5); WHITE BLOOD COUNT 9.2 10^3/uL (4.3-11.0)
[2018-06-23 07:01] LABS: ALANINE AMINOTRANSFERASE 13 U/L (0-55); ALBUMIN 3.3 GM/DL (3.2-4.5); ALKALINE PHOSPHATASE 134 U/L (40-136); BILIRUBIN,TOTAL 0.7 MG/DL (0.1-1.0); BUN/CREATININE RATIO 16; CARBON DIOXIDE 28 MMOL/L (21-32); CHLORIDE 102 MMOL/L (98-107); GFR ESTIMATED > 60; GLUCOSE 110 MG/DL (70-105); POTASSIUM 3.7 MMOL/L (3.6-5.0); SODIUM 139 MMOL/L (135-145); TOTAL PROTEIN 6.2 GM/DL (6.4-8.2)
--- NOTE | 2018-06-23 07:04 | Diagnostic Imaging Report ---
PROCEDURE: US left lower extremity venous. TECHNIQUE: Multiple real-time grayscale images were obtained over the left lower extremity in various projections. Additional duplex Doppler and color Doppler images were also obtained. INDICATION: Swelling and redness to left lower extremity. Findings: Color Doppler imaging shows no evidence of venous thrombosis throughout the left lower extremity. Calf compression shows normal augmentation of flow at the popliteal level with Doppler sampling. Subcutaneous edema is noted. IMPRESSION: 1. No evidence of venous thrombosis left lower extremity. 2. There is dependent subcutaneous edema present. Dictated by: Dictated on workstation # [id number]
[2018-06-23 08:00] VITALS: BP 131/96
[2018-06-23] MEDS: VANCOMYCIN 1250 MG/NS 250 ML IVPB IV SCH ×4 (08:55→21:40)
[2018-06-23] MEDS: morphine ER 100 MG (MS CONTIN) TAB PO SCH ×2 (09:13→21:40)
[2018-06-23] MEDS ORDERED: MAGN400O7 PO (09:40)
[2018-06-23] MEDS ORDERED: MILK OF MAGNESIA 400 MG/5 ML 30 ML UDC PO PRN (11:15)
[2018-06-23 12:00] VITALS: BP 132/65
[2018-06-23] MEDS: CYCLOBENZAPRINE 10 MG (FLEXERIL) TAB PO SCH ×2 (12:12→21:40)
--- NOTE | 2018-06-23 13:26 | History & Physicial (CHS) ---
[facility] MEDICAL STUDENT 06/23/18 1326: HPI History of Present Illness: CC: BL LE swelling HPI: Mr. Jalloh is a 67 yo M with a PMH of HF, MD, avascular necrosis, multiple hip surgeries, past cellulitis who presented with BL LE swelling that he described as painful. He reported that his L leg became beefy red yesterday before presenting. He has appreciated the swelling for over the past 4 weeks. He visited with Dr. Rosenthal 2 weeks after it began, he increased his lasix 20mg to 40mg. In addition he was started on a 7 day course of doxycycline that was completed on 06/20. Neither one of those treatments yielded improvement. He reported fevers of up to 102 F at home with associated chills. He denied any nausea or vomiting. He says that his last echocardiogram was performed over a year ago. During the physical exam, a R leg erythematous lesion suspicious for a cellulitis as well was found; he reported that he just recently appreciated it. Source: patient Exam Limitations: no limitations Date seen by provider: Jun 23, 2018 Time Seen by Provider: 10:30 Attending Physician Bryanna Valentin MD PCP Center/[facility] [place] Consult Date of Admission Jun 22, 2018 at 23:50 Home Medications Home Medications Reviewed patient Home Medication Reconciliation performed by pharmacy medication reconciliations game technician and/or nursing. Patients Allergies have been reviewed. Allergies Coded Allergies: codeine (Verified Allergy, Mild, HIVES...TAKES OXYCODONE & MS CONTIN AT HOME, 07/29/07) streptokinase (Verified Allergy, Unknown, 07/29/07) [id number]-Qdndun Hx Patient Social History Alcohol Use: Past History (HEAVY USE/ABUSE) Recreational Drug Use: Yes (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, AND HAS REQUIRED INTUBATION IN PAST DUE TO OVERDOSES OF THESE, ALONG WITH ALCOHOL ) 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 Smoking Status: Current Everyday Smoker (2 1/2 PPD) Type Used: Cigarettes 2nd Hand Smoke Exposure: Yes Recent Foreign Travel: No Contact w/other who traveled: No Recent Hopitalizations: No Recent Infectious Disease Expo: No Physical Abuse Screen: No Sexual Abuse: No Immunizations Up To Date Tetanus Booster (TDap): Unknown Date of Pneumonia Vaccine: Nov 08, 2012 Date of Influenza Vaccine: Jul 26, 2016 Past Medical History HF, MD, avascular necrosis, multiple hip surgeries, COPD, asthma Family Medical History Family History: COPD Diabetes mellitus Review of Systems ([facility]) Constitutional: chills, fever EENTM: no symptoms reported Respiratory: No orthopnea, No short of breath; wheezing Cardiovascular: No chest pain; edema Gastrointestinal: no symptoms reported; No nausea, No vomiting Genitourinary: no symptoms reported Musculoskeletal: no symptoms reported Skin: change in color (beefy red skin discoloration over L leg), lesions (new R lower leg erythema over anterior leg ), rash Psychiatric/Neurological: No Symptoms Reported Physical Exam-([facility]) Physical Exam Vital Signs VS - Last 72 Hours, by Label 06/22/18 06/23/18 06/23/18 06/23/18 21:50 00:19 04:30 08:00 Temp 98.3 97.2 98.0 97.4 Pulse 86 77 76 85 Resp 16 18 19 20 B/P (MAP) 142/79 (100) 157/95 148/67 (94) 131/96 (108) Pulse Ox 93 95 96 93 O2 Delivery Room Air Room Air Room Air Room Air 06/23/18 06/23/18 06/23/18 09:03 11:31 12:00 Temp 97.0 Pulse 84 Resp 20 B/P (MAP) 132/65 (87) Pulse Ox 93 95 O2 Delivery Room Air Room Air Room Air Capillary Refill : NONELess Than 3 Seconds General Appearance: no apparent distress Eyes: Bilateral Eye Normal Inspection, Bilateral Eye EOMI Respiratory: no respiratory distress, no accessory muscle use, wheezing ( diffuse late expiratory wheezing ) Cardiovascular: normal peripheral pulses, regular rate, rhythm Gastrointestinal: normal bowel sounds, non tender, soft Extremities: calf tenderness, inflammation, pedal edema, swelling, other (L leg cellulitis appreciated, R leg cellulitis appreciated w/ bump over lateral aspect of leg) Assessment/Plan Assessment/Plan Admission Dx BL LE Cellulitis Heart failure COPD/asthma Admission Status: Inpatient Order (span 2 midnights) Reason for Inpatient Admission: Pt will be requiring hourly checkups with IV antibiotics and IV lasix. Will also need to monitor I/Os Assessment & Plan Mr. Jalloh is a 67yo M with a PMH of HF, MD, avascular necrosis, h/o cellulitis , multiple hip surgeries who presented with BL LE cellulitis Cellulitis - no SIRS criteria met on presentation - Lactic acid on admission 2.11, improved to 2.06 - CRP elevated to 4.88 and ESR 28 -US r/o DVT >Continue IV vanc >Pending BC >Pending a1c HF - last echo in 2016, EF 60% -new onset uncontrolled LE swelling >pending BNP >pending echo >IV lasix today COPD/asthma -wheezing on PE >RT: breathing tx PRN > IS >EPIC WILLOW SPECIALIST christian Chronic Pain >Continue EPIC WILLOW SPECIALIST morphine FEN: no IVF, replace lytes PRN, heart healthy diet PPX: lovenox Code: FULL Dispo: Continue inpt admission Clinical Quality Measures DVT/VTE Risk/Contraindication: Risk Factor Score Per Nursin RFS Level Per Nursing on Admit: 4+=Very High Copy Copies To 1: OLEGARIO ROSENTHAL MD,BRYANNA Valle MD 06/23/18 8326: HPI History of Present Illness: Reviewed HPI by student with patient. Reviewed Chart and echo 2016 was normal. Patient has noticed increase in swelling over the past month and increase in redness in the last 2 weeks. Completed antibiotics and has not missed any doses of lasix. No major changes in diet. Home Medications Allergies Coded Allergies: codeine (Verified Allergy, Mild, HIVES...TAKES OXYCODONE & MS CONTIN AT HOME, 07/29/07) streptokinase (Verified Allergy, Unknown, 07/29/07) [id number]-Kknvvo Hx Family Medical History Family History: COPD Diabetes mellitus Reviewed Test Results Reviewed Test Results Lab Laboratory Tests Test 06/22/18 22:30 06/23/18 01:55 06/23/18 06:26 Range/Units White Blood Count 10.5 9.2 4.3-11.0 10^3/uL Red Blood Count 4.60 4.53 4.35-5.85 10^6/uL Hemoglobin 14.6 14.0 13.3-17.7 G/DL Hematocrit 41 41 40-54 % Mean Corpuscular Volume 90 91 80-99 FL Mean Corpuscular Hemoglobin 32 31 25-34 PG Mean Corpuscular Hemoglobin Concent 35 34 32-36 G/DL Red Cell Distribution Width 14.0 14.2 10.0-14.5 % Platelet Count 348 296 130-400 10^3/uL Mean Platelet Volume 10.6 H 10.5 H 7.4-10.4 FL Neutrophils (%) (Auto) 63 59 42-75 % Lymphocytes (%) (Auto) 24 25 12-44 % Monocytes (%) (Auto) 10 13 H 0-12 % Eosinophils (%) (Auto) 1 4 0-10 % Basophils (%) (Auto) 1 1 0-10 % Neutrophils # (Auto) 6.7 5.4 1.8-7.8 X 10^3 Lymphocytes # (Auto) 2.6 2.3 1.0-4.0 X 10^3 Monocytes # (Auto) 1.1 H 1.2 H 0.0-1.0 X 10^3 Eosinophils # (Auto) 0.1 0.3 0.0-0.3 10^3/uL Basophils # (Auto) 0.1 0.1 0.0-0.1 10^3/uL Erythrocyte Sedimentation Rate 28 0-30 MM/HR Sodium Level 141 139 135-145 MMOL/L Potassium Level 3.7 3.7 3.6-5.0 MMOL/L Chloride Level 100 102 98-107 MMOL/L Carbon Dioxide Level 25 28 21-32 MMOL/L Anion Gap 16 H 9 5-14 MMOL/L Blood Urea Nitrogen 12 13 7-18 MG/DL Creatinine 0.83 0.80 0.60-1.30 MG/DL Estimat Glomerular Filtration Rate > 60 > 60 BUN/Creatinine Ratio 14 16 Glucose Level 98 110 H 70-105 MG/DL Lactic Acid Level 2.11 *H 2.06 *H 0.50-2.00 MMOL/L Calcium Level 9.4 9.0 8.5-10.1 MG/DL Corrected Calcium 9.6 9.6 8.5-10.1 MG/DL Total Bilirubin 0.6 0.7 0.1-1.0 MG/DL Aspartate Amino Transf (AST/SGOT) 27 25 5-34 U/L Alanine Aminotransferase (ALT/SGPT) 15 13 0-55 U/L Alkaline Phosphatase 149 H 134 40-136 U/L C-Reactive Protein High Sensitivity 4.88 H 0.00-0.50 MG/DL Total Protein 6.8 6.2 L 6.4-8.2 GM/DL Albumin 3.7 3.3 3.2-4.5 GM/DL B-Type Natriuretic Peptide 65.1 <100.0 PG/ML Radiology Date of Exam: 06/22/18 US VENOUS LOWER EXT LT PROCEDURE: US left lower extremity venous. TECHNIQUE: Multiple real-time grayscale images were obtained over the left lower extremity in various projections. Additional duplex Doppler and color Doppler images were also obtained. INDICATION: Swelling and redness to left lower extremity. Findings: Color Doppler imaging shows no evidence of venous thrombosis throughout the left lower extremity. Calf compression shows normal augmentation of flow at the popliteal level with Doppler sampling. Subcutaneous edema is noted. IMPRESSION: 1. No evidence of venous thrombosis left lower extremity. 2. There is dependent subcutaneous edema present. Assessment/Plan Assessment/Plan (1) Cellulitis of left lower extremity Status: Acute Assessment & Plan: - Will cover for MRSA, A1c pending if patient has DM will then cover for pseudomonas, infection improving with Vancomycin (2) Edema of both legs Status: Acute Assessment & Plan: - Continue lasix and low salt diet (3) Lactic acidosis Status: Resolved (4) COPD (chronic obstructive pulmonary disease) Status: Chronic Assessment & Plan: - Patient placed on MAT protocol Qualifiers: Qualified Codes: J44.9 - Chronic obstructive pulmonary disease, unspecified (5) Chronic narcotic use Status: Chronic Assessment & Plan: - Continue home meds (6) Coronary artery disease Status: Chronic Assessment & Plan: - Given LE edema, will order echo for AM Qualifiers: Qualified Codes: I25.10 - Atherosclerotic heart disease of [place] coronary artery without angina pectoris (7) DVT prophylaxis Status: Acute Assessment & Plan: - CECILY Noriega MEDICAL STUDENT Jun 23, 2018 13:26 BRYANNA VALENTIN MD Jun 23, 2018 21:46
[2018-06-23 15:19] VITALS: BP 132/65
[2018-06-23] MEDS ORDERED: RT-ALBUTEROL SULF 2.5 MG/3 ML PRE-MIX VIAL INH PRN (15:30)
[2018-06-23 16:30] VITALS: BP 135/62
[2018-06-23] MEDS ORDERED: ENOXAPARIN 40 MG/0.4 ML (LOVENOX) SYR SQ SCH (16:30)
[2018-06-23 20:00] VITALS: BP 134/74
[2018-06-23] MEDS ORDERED: ZOLPIDEM 5 MG (AMBIEN) TAB PO SCH (21:00)
[2018-06-23] MEDS ORDERED: VANCOMYCIN 1250 MG/NS 250 ML IVPB IV SCH ×2 (23:45)
[2018-06-24 00:34] VITALS: BP 122/63
[2018-06-24 04:23] VITALS: BP 129/72
[2018-06-24 05:12] LABS: BUN/CREATININE RATIO 16; CALCIUM 8.8 MG/DL (8.5-10.1); CARBON DIOXIDE 27 MMOL/L (21-32); CHLORIDE 101 MMOL/L (98-107); CREATININE SERUM 0.82 MG/DL (0.60-1.30); GFR ESTIMATED > 60; GLUCOSE 109 MG/DL (70-105); POTASSIUM 3.8 MMOL/L (3.6-5.0); SODIUM 139 MMOL/L (135-145)
[2018-06-24 08:00] VITALS: BP 129/60
[2018-06-24] MEDS: VANCOMYCIN 1250 MG/NS 250 ML IVPB IV SCH ×2 (08:15)
[2018-06-24] MEDS: morphine ER 100 MG (MS CONTIN) TAB PO SCH (09:34)
[2018-06-24] MEDS: CYCLOBENZAPRINE 10 MG (FLEXERIL) TAB PO SCH ×2 (09:34→14:00)
--- NOTE | 2018-06-24 11:11 | Discharge Instructions ---
Discharge [facility] Discharge Medications New, Converted or Re-Newed RX: Call to Patients Pharmacy Continued Medications: Albuterol Sulfate (Ventolin Hfa) 18 Gm Hfa.aer.ad 2 PUFF INH Q4H PRN for SHORTNESS OF BREATH, INHALER Cyclobenzaprine HCl (Cyclobenzaprine HCl) 10 Mg Tablet 10 MG PO TID, TAB Furosemide (Furosemide) 40 Mg Tablet 40 MG PO DAILY, TAB Magnesium Hydroxide (Milk of Magnesia) 400 Mg/5 Ml Oral.susp 30 ML PO DAILY PRN for CONSTIPATION-7TH LINE, ML Morphine Sulfate (Morphine Sulfate ER) 100 Mg Tablet.er 200 MG PO BID, TAB TAKES 2 (100MG) TABLETS Naproxen (Naproxen) 500 Mg Tablet 500 MG PO BID PRN for PAIN-MILD, TAB Nitroglycerin (Nitrostat) 0.4 Mg Tab.subl 0.4 MG SL UD PRN for CHEST PAIN, TAB Polyethylene Glycol 3350 (Polyethylene Glycol 3350) 255 Gm Powder 17 GM PO HS PRN for CONSTIPATION-2ND LINE, EA Zolpidem Tartrate (Zolpidem Tartrate) 10 Mg Tablet 10 MG PO HS, TAB Patient Instructions Patient Instructions Please start Augmentin on 06/25 as you received a dose of antibiotics on your last day of hospitalization. Please call your doctor if you develop any new symptoms, if the infection recurs , or you have fevers or chills. Please schedule an appointment with your PCP within 1-2 weeks for a post- hospitalization visit. Activity & Diet Discharge Diet: Low Sodium Diet Activity as Tolerated: Yes CECILY LOVE MEDICAL STUDENT Jun 24, 2018 11:11
[2018-06-24] MEDS ORDERED: RT-ALBUTEROL/IPRATROPIUM 3 ML (DUONEB) VIAL INH NR (11:15)
[2018-06-24] MEDS ORDERED: FUROSEMIDE 40 MG/4 ML INJ (LASIX) IVP NR (11:15)
[2018-06-24] MEDS ORDERED: AMOX1TAB12 PO (11:26)
--- NOTE | 2018-06-24 11:31 | D/C HH Face to Face Order ---
D/C Face to Face Orders Instructions for Patient Patient Instructions/FollowUp: - Make sure to complete your antibiotics - It is important to report any worsening redness to doctor You have a follow up appt with Dr Ann on Jul 01 @ 120 PM Physician to follow Patient: Marissa Discharge Diet for Home: Cardiac Diet Patient Problems: Left Lower Extremity Cellulitis Bilateral LE edema COPD Wheel chair bound CAD Goals for Patient: Improve function Decrease LE swelling Patient Data-Allergies,Ht & Wt Patient Allergies: Coded Allergies: codeine (Verified Allergy, Mild, HIVES...TAKES OXYCODONE & MS CONTIN AT HOME, 07/29/07) streptokinase (Verified Allergy, Unknown, 07/29/07) Height (Feet): 5 Height (Inches): 5.00 Weight (Pounds): 198 Weight (Ounces): 8.0 Home Health Need/Face to Face Date of Face to Face: Jun 24, 2018 Clinical Findings: Generalized weakness and fatigue, Muscle weakness, Non or partial weight bearing, Wound infection I have seen Pt [id number]: Yes Discharged To: Home Diagnosis/Conditions: Left LE cellulitis Bilateral LE swelling COPD Wheel Chair Bound Patient is Homebound due to: Collins fall risk due to instabilty, Non-weight bearing, Shortness of breath/distress Homebound Status Due to the above stated illness, injury or surgical procedure (medical condition or diagnosis) and associated clinical findings, the patient is homebound because of his/her inability to leave home except with aid of a supportive device and/or person AND leaving the home requires a considerable and taxing effort or is medically contraindicated. Pt req the following assistanc: Wheelchair Home Health Nursing Orders Home Health Services Order: Nursing Services, Physical Therapy-Evaluate & Treat , Wound Care-Eval/Treat Home Health Infusion Therapy Site Location: [facility] External Certify Stmt I certify that this patient is under my care and that I, a nurse practitioner or a physician; a assistant store manager operations working with me, had a face to face encounter that - meets the physician face to face encounter requirements with this patient as dated. BRYANNA VALENTIN MD Jun 24, 2018 11:30 am
--- NOTE | 2018-06-24 12:03 | Discharge Summary ---
[facility] MEDICAL STUDENT 06/24/18 1203: Diagnosis/Chief Complaint Date of Admission Jun 22, 2018 at 23:50 Date of Discharge Jun 24, 2018 Admission Diagnosis Admission Diagnosis LE Cellulitis Discharge Diagnosis LE cellulitis Chief Complaint/HPI Chief Complaint/HPI Reviewed HPI by student with patient. Reviewed Chart and echo 2016 was normal. Patient has noticed increase in swelling over the past month and increase in redness in the last 2 weeks. Completed antibiotics and has not missed any doses of lasix. No major changes in diet. Discharge Summary-Simple/Stand Consultations Discharge Physical Examination Allergies: Coded Allergies: codeine (Verified Allergy, Mild, HIVES...TAKES OXYCODONE & MS CONTIN AT HOME, 07/29/07) streptokinase (Verified Allergy, Unknown, 07/29/07) Vitals & I&Os Vital Sign - Last 12Hours Date Time Temp Pulse Resp B/P (MAP) Pulse Ox O2 Delivery O2 Flow Rate FiO2 06/24/18 11:16 93 Room Air 06/24/18 10:05 98.6 06/24/18 08:00 74 16 129/60 (83) 06/23/18 15:19 21 Intake and Output 06/24/18 00:00 Intake Total 1352.5 ml Output Total 450 ml Balance 902.5 ml General Appearance: Alert, Oriented X3, Cooperative, No Acute Distress HEENT: Atraumatic, EOMI, Mucous Memb Moist/[place] Respiratory: Other (Diffuse expiratory wheezing d/t COPD, asthma) Cardiovascular: Regular Rate, Normal S1, Normal S2, No Murmurs Abdominal: Normal Bowel Sounds, Soft, No Tenderness Extremities: Normal Pulses, Other (L LE cellulitis much improved with decreased erythema, R LE cellulitis not as much improvement, BL LE edema 3+) Hospital Course Mr. Jalloh is a 67 yo M who presented with BL LE cellulitis with fevers and chills and an elevated lactic acid but no leukocytosis. He was started on vancomycin and remained on it for 1 day. His blood cultures were negative throughout the hospitalization. His cellulitis improved on the second day of hospitalization and he was discharged home on PO augmentin. He also has a history of CHF requiring qd lasix. A BNP was ordered during this hospitalization and it was normal. An echo was performed before discharge and was pending read before he left. He was given IV lasix 40mg x1 during this hospitalization given the significant swelling. He required a breathing tx during this hospitalization for wheezing due to his COPD and asthma. All home DEVULCANIZER LOADER meds were administered during this hospitalization. Labs Laboratory Tests 06/22/18 22:30: Calcium Level 9.4 06/23/18 06:26: Calcium Level 9.0 06/24/18 04:25: Calcium Level 8.8 Laboratory Tests 06/22/18 22:30: Mean Platelet Volume 10.6H, Monocytes # (Auto) 1.1H, Anion Gap 16H, Lactic Acid Level 2.11*H, Alkaline Phosphatase 149H, C-Reactive Protein High Sensitivity 4.88H 06/23/18 01:55: Lactic Acid Level 2.06*H 06/23/18 06:26: Mean Platelet Volume 10.5H, Monocytes # (Auto) 1.2H, Monocytes (%) (Auto) 13H, Glucose Level 110H, Total Protein 6.2L 06/24/18 04:25: Glucose Level 109H Laboratory Tests 06/24/18 04:25 Radiology Reviewed Date of Exam: 06/22/18 US VENOUS LOWER EXT LT PROCEDURE: US left lower extremity venous. TECHNIQUE: Multiple real-time grayscale images were obtained over the left lower extremity in various projections. Additional duplex Doppler and color Doppler images were also obtained. INDICATION: Swelling and redness to left lower extremity. Findings: Color Doppler imaging shows no evidence of venous thrombosis throughout the left lower extremity. Calf compression shows normal augmentation of flow at the popliteal level with Doppler sampling. Subcutaneous edema is noted. IMPRESSION: 1. No evidence of venous thrombosis left lower extremity. 2. There is dependent subcutaneous edema present. Discharge Condition at discharge Stable Instructions to patient/family Please see electronic discharge instructions given to patient. Discharge Medications Reviewed and agree with Discharge Medication list on patient's Discharge Instruction sheet Clinical Quality Measures DVT/VTE Risk/Contraindication: Risk Factor Score Per Nursin RFS Level Per Nursing on Admit: 4+=Very High BRYANNA VALENTIN MD 07/09/18 1129: Discharge Summary-Simple/Stand Discharge Physical Examination Allergies: Coded Allergies: codeine (Verified Allergy, Mild, HIVES...TAKES OXYCODONE & MS CONTIN AT HOME, 07/29/07) streptokinase (Verified Allergy, Unknown, 07/29/07) [facility] MEDICAL STUDENT Jun 24, 2018 12:03 BRYANNA VALENTIN MD Jul 09, 2018 11:29
[2018-06-24 14:28] VITALS: BP 129/60
[2018-06-24] MEDS ORDERED: TROUGH ORDER-PHARMACY XX NR (19:30)
--- NOTE | 2018-06-25 11:32 | Physician Query Clarification ---
PQ-CHF Specificity The medical record reflects the following clinical scenario: History/Risk Factors: History of CHF Hypertension Clinical Findings:Significant swelling. BNP 65.1. Echo pending. Treatment: IV Lasix 40 mg. Question: Can you further specify the acuity &/or type of CHF per the clinical indicators above? Please document a response below PHYSICIAN RESPONSE Acuity: Other (list below) (History of not currently active) Type: CHF cannot be further specified Other, clinical findings Echo with normal EF and mild hypertrophy In responding to this query, please exercise your independent professional judgment. The purpose of this communication is to more accurately reflect the complexity of your patients condition. The fact that a question is asked does not imply that any particular answer is desired or expected. Thank you for your timely response to this clarification. Requestors name: Delia Stanford [facility] Phone # ext [phone] or [phone] THIS PHYSICIAN QUERY FORM IS A PERMANENT PART OF THE MEDICAL RECORD DELIA STANFORD Jun 25, 2018 11:31 BRYANNA VALENTIN MD Jul 07, 2018 15:31
== END 2018-06-24 14:20 | disposition home health service (06) | DRG 603 ==
LOC: ER 21:45 → EDUNIT# 21:45 → 4TH 23:50
PROVIDERS: ADMIT Family Medicine; ATTEND Family Medicine
DX: L03.115 Cellulitis of right lower limb (principal); L03.116 Cellulitis of left lower limb; E87.2 Acidosis; F11.20 Opioid dependence, uncomplicated; I11.0 Hypertensive heart disease with heart failure; I50.9 Heart failure, unspecified; J44.9 Chronic obstructive pulmonary disease, unspecified; I25.10 Atherosclerotic heart disease of native coronary artery without angina pectoris; I25.2 Old myocardial infarction; F17.210 Nicotine dependence, cigarettes, uncomplicated; E11.42 Type 2 diabetes mellitus with diabetic polyneuropathy; F32.9 Major depressive disorder, single episode, unspecified; N31.9 Neuromuscular dysfunction of bladder, unspecified; R13.10 Dysphagia, unspecified; H91.90 Unspecified hearing loss, unspecified ear; E66.9 Obesity, unspecified; M19.90 Unspecified osteoarthritis, unspecified site; M54.9 Dorsalgia, unspecified; F10.21 Alcohol dependence, in remission; Z79.4 Long term (current) use of insulin; Z68.33 Body mass index [BMI] 33.0-33.9, adult; Z89.621 Acquired absence of right hip joint; Z89.622 Acquired absence of left hip joint; Z95.810 Presence of automatic (implantable) cardiac defibrillator; Z79.01 Long term (current) use of anticoagulants; Z91.19 Patient's noncompliance with other medical treatment and regimen; Z91.5 Personal history of self-harm
CPT/HCPCS: 36415; 80048; 80053; 83036; 83605; 83880; 85025; 85652; 86141; 87040; 93306; 94664; 94760; 96365

== ENCOUNTER 2018-06-26 22:10 | Emergency (ER) | payer MEDICARE, MEDICAID ==
[~2018-06-26] VITALS: Ht 154.9 cm; Wt 106.6 kg
[~2018-06-26 22:10] MED LIST changes: +ALBU18HF2 INH; +AMOX1TAB12 PO; +MAGN400O7 PO; +NAPR-915 PO
[2018-06-26] MEDS ORDERED: ASPIRIN 81 MG CHEW (CHILDREN'S ASA) PO ONE (22:30)
[2018-06-26] MEDS ORDERED: NITROGLYCERIN 0.4 MG SL TABS BTL 25'S SL PRN (22:30)
--- OUTSIDE RECORDS SUMMARY | 2018-06-26 22:30 | XMS REPORT | Clinical Summary ---
Author Author [facility] Organization [facility] Address Unknown Phone Unavailable Care Team Providers Care Piler Name Role Phone Traci Mota MD Unavailable Jonathan Beasley MD PCP Jaja Lujan MD Unavailable Skylar Stevens PA-C Unavailable Source Comments Some departments are not documenting in the electronic medical record. If you do not see the information that you expected, contact Release of Information in the Health Information Management department at [phone] for further assistance in locating additional records.[facility] Allergies Active Allergy Reactions Severity Noted Date [...] 13 daily. Active Problems Problem Noted Date CT (myocardial infarction) (HCC) 04/04/2014 Pacemaker 04/04/2014 Asthma [...] Taken Blood Pressure 147/78 11/23/2012 8:30 AM FOUNDATION DIGGER Pulse 63 11/23/2012 8:30 AM FOUNDATION DIGGER Temperature 36.8 C (98.3 F) 11/23/2012 8:30 AM FOUNDATION DIGGER Respiratory Rate - - Oxygen Saturation 97% 11/23/2012 8:30 AM FOUNDATION DIGGER Inhaled Oxygen - - Concentration Weight 86.2 kg (190 lb) 11/19/2012 9:57 AM FOUNDATION DIGGER Height 172.7 cm (5' 8") 11/19/2012 9:57 AM FOUNDATION DIGGER Body Mass Index 28.89 11/19/2012 9:57 AM FOUNDATION DIGGER Plan of Treatment Health Maintenance Due Date [...]
--- NOTE | 2018-06-26 22:31 | ED Chest Pain ---
General Stated Complaint: LEG SWELLING Source: patient, old records History of Present Illness Date Seen by Provider: Jun 26, 2018 Time Seen by Provider: 20:17 Initial Comments PT ARRIVES VIA EMS FROM HOME C/O CHEST PAIN RADIATING DOWN LEFT ARM SINCE 1100 AM TODAY NOTHING WORSENS OR IMPROVES PAIN HAS NOT TAKEN ANYTHING FOR PAIN --PT STATES HE HAS BEEN OUT OF HIS MORPHINE FOR 3 DAYS, AND GIVE NO EXPLANATION TO WHY HE RAN OUT AND WHY HE HAS NOT REFILLED IT. TAKES MORPHINE ER 200 MG BID FOR CHRONIC GENERALIZED PAIN PT STATES HE HAS NOT TAKEN ANYTHING FOR PAIN, STATING "I DIDN'T HAVE ANYTHING"-- CLAIMS NO TYLENOL, MOTRIN OR PAIN MEDICATION OF ANY KIND PT WAS JUST ADMITTED 06/22-06/24 FOR LEG CELLULITIS--LEFT > RIGHT NO FEVER NO SWEATS NO CHEST PAIN NO PALPITATIONS NO SYNCOPE NO WORSENING OF CHRONIC LEG EDEMA EMS GAVE ASPIRIN AND NTG X 3 --PT STATES NO RELIEF. 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 ROESNTHAL ROUTER MACHINE OPERATOR: DR. SQUIRES Allergies and Home Medications Allergies Coded Allergies: codeine (Verified Allergy, Mild, HIVES...TAKES OXYCODONE & MS CONTIN AT HOME, 07/29/07) streptokinase (Verified Allergy, Unknown, 07/29/07) Home Medications Albuterol Sulfate 18 Gm Hfa.aer.ad, 2 PUFF INH Q4H PRN for SHORTNESS OF BREATH, (Reported) Amoxicillin/Potassium Clav 1 Each Tablet, 1 EACH PO BID Prescribed by: BRYANNA VALENTIN on 06/24/18 1126 Cyclobenzaprine HCl 10 Mg Tablet, 10 MG PO TID, (Reported) Furosemide 40 Mg Tablet, 40 MG PO DAILY, (Reported) Magnesium Hydroxide 400 Mg/5 Ml Oral.susp, 30 ML PO DAILY PRN for CONSTIPATION- 7TH LINE, (Reported) Morphine Sulfate 100 Mg Tablet.er, 200 MG PO BID, (Reported) TAKES 2 (100MG) TABLETS Naproxen 500 Mg Tablet, 500 MG PO BID PRN for PAIN-MILD, (Reported) Nitroglycerin 0.4 Mg Tab.subl, 0.4 MG SL UD PRN for CHEST PAIN, (Reported) Polyethylene Glycol 3350 255 Gm Powder, 17 GM PO HS PRN for CONSTIPATION-2ND LINE, (Reported) Zolpidem Tartrate 10 Mg Tablet, 10 MG PO HS, (Reported) Patient Home Medication List Home Medication List Reviewed: Yes Review of Systems Review of Systems Constitutional: no symptoms reported Respiratory: No Symptoms Reported Cardiovascular: See HPI, Chest Pain, Edema; Denies Lightheadedness, Denies Palpitations, Denies Syncope Gastrointestinal: No Symptoms Reported Genitourinary: No Symptoms Reported Musculoskeletal: see HPI Skin: see HPI Psychiatric/Neurological: No Symptoms Reported Endocrine: No Symptoms Reported Hematologic/Lymphatic: No Symptoms Reported Past Nhqlxna-Pupnvn-Pzzmwj Hx Patient Social History Alcohol Use: Regular Use (HEAVY USE/ABUSE) Alcohol Beverage of Choice: [place] Recreational Drug Use: Yes (EXTENSIVE ABUSE OF NARCOTICS + BENZODIAZEPINES, WITH MULTIPLE OVERDOSES AND HAS REQUIRED INTUBATION IN THE PAST DUE TO THESE, ALONG WITH ALCOHOL) 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 Smoking Status: Current Everyday Smoker (2 1/2 PPD) Type Used: Cigarettes (2 1/2 PPD) 2nd Hand Smoke Exposure: Yes Recent Hopitalizations: No Immunizations Up To Date Tetanus Booster (TDap): Unknown PED Vaccines UTD: No Date of Pneumonia Vaccine: Nov 08, 2012 Date of Influenza Vaccine: Jul 26, 2016 Seasonal Allergies Seasonal Allergies: No Past Medical History Surgeries: Yes (CLAIMS 22 HIP/PELVIS SURGERIES--11 ON EACH HIP, PER PT- MULTIPLE FAILED HIP REPLACEMENTS, NOW WITH PERMANENT REMOVAL OF HIP JOINTS; EGD ; HERNIA REPAIR; CARDIAC CATHS; LEFT KNEE SURGERY--PATELLA FX/TORN MENISCUS; BACK SURGERY ; RIGHT WRIST FX/ORIF; BILATERAL WRIST SURGERY; ELBOW SURGERY) Abdominal, Appendectomy, Cardiac, Defibrillator, Joint Replacement, Orthopedic, Pacemaker Respiratory: Yes (PT INTUBATED IN PAST DUE TO OVERDOSES/ETOH ) Asthma Currently Using CPAP: No Currently Using BIPAP: No Cardiac: Yes (PACEMAKER, CARDIAC ARREST, SELF - REPORTED PA X 8; CHF) Chronic Edema/Swelling, Coronary Artery Disease, Heart Attack, Hypertension, Irregular Heartbeat Neurological: Yes (NOT OFFICIAL DX OF NEUROPATHY BY DR. COOK STATES FEET HAVE BEEN NUMB FOR A LONG TIME) Neuropathy Reproductive Disorders: No Sexually Transmitted Disease: No HIV/AIDS: No Genitourinary: Yes (PT SELF-CATH'S ) Neurogenic Bladder Gastrointestinal: Yes Abdominal Hernia Musculoskeletal: Yes (MULTPLE FAILED HIP SURGERIES, NOW WITH PERMANENT REMOVAL OF HIP JOINTS AND HARDWARE-DUE TO AVASCULAR NECROSIS OF HIPS; -PT IS WHEELCHAIR / BED BOUND/ NON-AMBULATORY; MULTIPLE FRACTURES AND ORTHO SURGERIES; CHRONIC GENERALIZED PAIN COMPLAINTS--NARCOTIC DEPENDENT. ) Arthritis, Chronic Back Pain, Fractures Endocrine: Yes (OBESITY) Diabetes, Insulin dep HEENT: Yes Dysphagia Loss of Vision: Denies Hearing Impairment: Hard of Hearing Cancer: No Psychosocial: Yes (ALCOHOL/POLYSUBSTANCE ABUSE/OVERDOSES-INTUBATED 2013, INCARCERATIONS) Suicide Attempts, Depression Integumentary: Yes (CELLULITIS OF LEGS) Blood Disorders: No Adverse Reaction/Blood Tranf: Yes (HIGH FEVER AND CHILLS) Family Medical History COPD Diabetes mellitus Physical Exam Vital Signs Capillary Refill : Height, Weight, BMI Height: 5'5.00" Weight: 198lbs. 8.0oz. 90.201003fw; 33.0 BMI Method:Stated General Appearance: No Apparent Distress, WD/WN, Obese, Other (DOES NOT APPEAR TO BE IN ANY DISCOMFORT WHAT SO EVER. STRONG ODOR OF ETOH. SPEECH CLEAR) Neck: Normal Inspection Respiratory: Normal Breath Sounds, No Accessory Muscle Use, No Respiratory Distress Cardiovascular: Regular Rate, Rhythm, No Edema, No JVD, No Murmur, Normal Peripheral Pulses Gastrointestinal: Non Tender, Soft Extremity: Pedal Edema (2-3+ EDEMA BILATERALLY) Neurologic/Psychiatric: Alert, Oriented x3, No Motor/Sensory Deficits, Normal Mood/Affect, technician trainee II-XII Norm as Tested Skin: Normal Color, Warm/Dry Progress/Results/Core Measures Results/Orders Lab Results Laboratory Tests Test 06/26/18 22:41 06/26/18 22:49 06/26/18 23:19 06/27/18 01:38 Range/Units White Blood Count 11.4 H 4.3-11.0 10^3/uL Red Blood Count 4.75 4.35-5.85 10^6/uL Hemoglobin 14.6 13.3-17.7 G/DL Hematocrit 43 40-54 % Mean Corpuscular Volume 90 80-99 FL Mean Corpuscular Hemoglobin 31 25-34 PG Mean Corpuscular Hemoglobin Concent 34 32-36 G/DL Red Cell Distribution Width 14.1 10.0-14.5 % Platelet Count 402 H 130-400 10^3/uL Mean Platelet Volume 9.9 7.4-10.4 FL Neutrophils (%) (Auto) 67 42-75 % Lymphocytes (%) (Auto) 24 12-44 % Monocytes (%) (Auto) 8 0-12 % Eosinophils (%) (Auto) 0 0-10 % Basophils (%) (Auto) 1 0-10 % Neutrophils # (Auto) 7.6 1.8-7.8 X 10^3 Lymphocytes # (Auto) 2.8 1.0-4.0 X 10^3 Monocytes # (Auto) 0.9 0.0-1.0 X 10^3 Eosinophils # (Auto) 0.0 0.0-0.3 10^3/uL Basophils # (Auto) 0.1 0.0-0.1 10^3/uL Sodium Level 144 135-145 MMOL/L Potassium Level 3.1 L 3.6-5.0 MMOL/L Chloride Level 107 98-107 MMOL/L Carbon Dioxide Level 22 21-32 MMOL/L Anion Gap 15 H 5-14 MMOL/L Blood Urea Nitrogen 8 7-18 MG/DL Creatinine 0.82 0.60-1.30 MG/DL Estimat Glomerular Filtration Rate > 60 BUN/Creatinine Ratio 10 Glucose Level 100 70-105 MG/DL Calcium Level 9.4 8.5-10.1 MG/DL Corrected Calcium 9.6 8.5-10.1 MG/DL Magnesium Level 2.1 1.8-2.4 MG/DL Total Bilirubin 0.3 0.1-1.0 MG/DL Aspartate Amino Transf (AST/SGOT) 22 5-34 U/L Alanine Aminotransferase (ALT/SGPT) 13 0-55 U/L Alkaline Phosphatase 128 40-136 U/L Myoglobin 46.3 10.0-92.0 NG/ML Troponin I < 0.30 < 0.30 <0.30 NG/ML B-Type Natriuretic Peptide 88.5 <100.0 PG/ML Total Protein 6.8 6.4-8.2 GM/DL Albumin 3.7 3.2-4.5 GM/DL Serum Alcohol 328 *H <10 MG/DL Prothrombin Time 13.3 12.2-14.7 SEC INR Comment 1.0 0.8-1.4 Activated Partial Thromboplast Time 27 24-35 SEC Urine Color YELLOW Urine Clarity CLEAR Urine pH 6.5 5-9 Urine Specific [place] 1.005 L 1.016-1.022 Urine Protein NEGATIVE NEGATIVE Urine Glucose (UA) NEGATIVE NEGATIVE Urine Ketones NEGATIVE NEGATIVE Urine Nitrite NEGATIVE NEGATIVE Urine Bilirubin NEGATIVE NEGATIVE Urine Urobilinogen NORMAL NORMAL MG/DL Urine Leukocyte Esterase NEGATIVE NEGATIVE Urine RBC (Auto) 4+ H NEGATIVE Urine RBC 2-5 H /HPF Urine WBC NONE /HPF Urine Squamous Epithelial Cells 5-10 /HPF Urine Crystals NONE /LPF Urine Bacteria TRACE /HPF Urine Casts NONE /LPF Urine Mucus NEGATIVE /LPF Urine Culture Indicated NO Urine Opiates Screen POSITIVE H NEGATIVE Urine Oxycodone Screen POSITIVE H NEGATIVE Urine Methadone Screen NEGATIVE NEGATIVE Urine Propoxyphene Screen NEGATIVE NEGATIVE Urine Barbiturates Screen NEGATIVE NEGATIVE Ur Tricyclic Antidepressants Screen NEGATIVE NEGATIVE Urine Phencyclidine Screen NEGATIVE NEGATIVE Urine Amphetamines Screen NEGATIVE NEGATIVE Urine Methamphetamines Screen NEGATIVE NEGATIVE Urine Benzodiazepines Screen NEGATIVE NEGATIVE Urine Cocaine Screen NEGATIVE NEGATIVE Urine Cannabinoids Screen NEGATIVE NEGATIVE My Orders Orders - ADRIAN,WILFRED K DO Saline Lock/Iv-Start (06/26/18 22:18) BNP (06/26/18 22:18) Cbc With Automated Diff (06/26/18 22:18) Comprehensive Metabolic Panel (06/26/18 22:18) Magnesium (06/26/18 22:18) Protime With Inr (06/26/18 22:18) Partial Thromboplastin Time (06/26/18 22:18) Ekg Tracing (06/26/18 22:23) O2 (06/26/18 22:23) Monitor-Rhythm Ecg Trace Only (06/26/18 22:23) Chest 1 View, Ap/Pa Only (06/26/18 22:23) Cardiac Profile 1 (06/26/18 22:23) Myoglobin Serum (06/26/18 22:23) Aspirin Chewable Tablet (Baby Aspirin Ch (06/26/18 22:30) Nitroglycerin 0.4 Mg Btl 25's (Nitrostat (06/26/18 22:30) Alcohol (06/26/18 23:22) Drug Screen Stat (Urine) (06/26/18 23:22) Ua Culture If Indicated (06/26/18 23:22) Ketorolac Injection (Toradol Injection) (06/26/18 23:30) Potassium Chloride (Tablet) (Klor Con Ta (06/27/18 00:15) Saline Lock/Iv-Start (06/27/18 00:13) Ns Iv 1000 Ml (Sodium Chloride 0.9%) (06/27/18 00:13) Troponin I (06/27/18 00:55) Ekg Tracing (06/27/18 01:47) Iv Push Energy Analyst Ed (06/26/18 ) Medications Given in ED Vital Signs/I&O Progress Progress Note : Progress Note PT HAD NO COMPLAINTS DURING ENTIRE ER STAY PT RESTED QUIETLY FOR ENTIRE ER STAY REPEAT TROPONIN AND EKG NEGATIVE SPEECH CLEAR Initial ECG Impression Date: Jun 26, 2018 Initial ECG Impression Time: 22:17 Initial ECG Rate: 99 Initial ECG Rhythm: Normal Sinus EKG : EKG Time: 02:51 Rate: 70 Rhythm: Normal Sinus ECG Comparisson: Unchanged Diagnostic Imaging Comments CXR--NO ACUTE PROCESS, PER RADIOLOGIST REPORT Reviewed: Reviewed by Me Departure Communication (Admissions) 0302--SPOKE WITH DR. 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 Referrals: [facility] (PCP/Family) Primary Care Physician Patient Instructions: ALCOHOL AND SUBSTANCE ABUSE, Alcohol Abuse and Alcoholism (DC), Chest Pain (DC), Chest Pain That Is Not Caused by the Heart (DC ) Add. Discharge Instructions: NO ALCOHOL!!! TAKE YOUR MEDICATIONS EXACTLY PRESCRIBED TO YOU CALL [facility] AND SCHEDULE A FOLLOW UP APPOINTMENT THIS WEEK FOR FURTHER CARE WILFRED CAMPBELL DO Jun 26, 2018 22:31
[2018-06-26 22:48] LABS: BASOPHILS # (AUTO) 0.1 10^3/uL (0.0-0.1); BASOPHILS % (AUTO) 1 % (0-10); EOSINOPHILS % (AUTO) 0 % (0-10); HEMATOCRIT 43 % (40-54); HEMOGLOBIN 14.6 G/DL (13.3-17.7); LYMPHOCYTES # (AUTO) 2.8 X 10^3 (1.0-4.0); LYMPHOCYTES % (AUTO) 24 % (12-44); MEAN CORPUSCULAR HEMOGLOBIN 31 PG (25-34); MEAN CORPUSCULAR HGB CONC 34 G/DL (32-36); MEAN CORPUSCULAR VOLUME 90 FL (80-99); MEAN PLATELET VOLUME 9.9 FL (7.4-10.4); MONOCYTES # (AUTO) 0.9 X 10^3 (0.0-1.0); MONOCYTES % (AUTO) 8 % (0-12); NEUTROPHILS # (AUTO) 7.6 X 10^3 (1.8-7.8); NEUTROPHILS % (AUTO) 67 % (42-75); PLATELET COUNT 402 10^3/uL (130-400); RED BLOOD COUNT 4.75 10^6/uL (4.35-5.85); RED CELL DISTRIBUTION WIDTH 14.1 % (10.0-14.5); WHITE BLOOD COUNT 11.4 10^3/uL (4.3-11.0)
[2018-06-26 23:08] LABS: PROTHROMBIN TIME PATIENT 13.3 SEC (12.2-14.7)
[2018-06-26 23:08] LABS: ALANINE AMINOTRANSFERASE 13 U/L (0-55); ALBUMIN 3.7 GM/DL (3.2-4.5); ALKALINE PHOSPHATASE 128 U/L (40-136); BILIRUBIN,TOTAL 0.3 MG/DL (0.1-1.0); BUN/CREATININE RATIO 10; CALCIUM 9.4 MG/DL (8.5-10.1); CARBON DIOXIDE 22 MMOL/L (21-32); CHLORIDE 107 MMOL/L (98-107); CREATININE SERUM 0.82 MG/DL (0.60-1.30); GFR ESTIMATED > 60; GLUCOSE 100 MG/DL (70-105); MAGNESIUM 2.1 MG/DL (1.8-2.4); POTASSIUM 3.1 MMOL/L (3.6-5.0); SODIUM 144 MMOL/L (135-145); TOTAL PROTEIN 6.8 GM/DL (6.4-8.2)
[2018-06-26 23:15] LABS: MYOGLOBIN SERUM 46.3 NG/ML (10.0-92.0)
[2018-06-26] MEDS ORDERED: KETOROLAC 30 MG/ML VIAL IVP ONE (23:30)
[2018-06-26 23:59] LABS: BILIRUBIN,URINE NEGATIVE (NEGATIVE); CLARITY,URINE CLEAR; COLOR,URINE YELLOW; GLUCOSE, URINE (UA) NEGATIVE (NEGATIVE); KETONES,URINE NEGATIVE (NEGATIVE); LEUKOCYTE ESTERASE ,URINE NEGATIVE (NEGATIVE); NITRITE,URINE NEGATIVE (NEGATIVE); PH,URINE 6.5 (5-9); PROTEIN,URINE NEGATIVE (NEGATIVE); UROBILINOGEN,URINE NORMAL (NORMAL)
[2018-06-27 00:09] LABS: BACTERIA,URINE TRACE /HPF
[2018-06-27 00:10] LABS: AMPHETAMINE SCREEN, URINE NEGATIVE (NEGATIVE); BARBITURATE SCREEN URINE NEGATIVE (NEGATIVE); BENZODIAZEPINES SCREEN URINE NEGATIVE (NEGATIVE); CANNABINOID SCREEN, URINE NEGATIVE (NEGATIVE); COCAINE SCREEN URINE NEGATIVE (NEGATIVE); METHAMPHETAMINE SCREEN URINE S NEGATIVE (NEGATIVE); OPIATE SCREEN URINE POSITIVE (NEGATIVE); TRICYCLIC ANTIDEPRESSANTS SCRE NEGATIVE (NEGATIVE)
[2018-06-27 00:11] LABS: METHADONE STAT NEGATIVE (NEGATIVE); OXYCODONE STAT POSITIVE (NEGATIVE); PROPOXYPHENE STAT NEGATIVE (NEGATIVE)
[2018-06-27] MEDS ORDERED: NS IV 1000 ML 1,000 ML IV ONE (00:13)
[2018-06-27] MEDS ORDERED: KCL 10 MEQ TAB (MICRO K) PO ONE (00:15)
[2018-06-27 04:35] VITALS: BP 160/83
--- NOTE | 2018-06-27 07:40 | Diagnostic Imaging Report ---
INDICATION: Chest pain. Comparison is made with prior examination from 08/15/2017. FINDINGS: Heart size normal. Mediastinum is unremarkable. Pacemaker overlies the left hemithorax. There is no pleural effusion, pneumothorax or pneumonia. IMPRESSION: No acute cardiopulmonary abnormality Dictated by: Dictated on workstation # [id number]
== END 2018-06-27 04:34 | disposition home or self-care (01) ==
LOC: EDUNIT# 22:10 → ER 22:11
DX: R07.89 Other chest pain (principal); F10.10 Alcohol abuse, uncomplicated; L03.116 Cellulitis of left lower limb; L03.115 Cellulitis of right lower limb; J45.909 Unspecified asthma, uncomplicated; I25.10 Atherosclerotic heart disease of native coronary artery without angina pectoris; I25.2 Old myocardial infarction; I10 Essential (primary) hypertension; F19.10 Other psychoactive substance abuse, uncomplicated; E11.9 Type 2 diabetes mellitus without complications; E66.9 Obesity, unspecified; F32.9 Major depressive disorder, single episode, unspecified; Z87.19 Personal history of other diseases of the digestive system; Z90.89 Acquired absence of other organs; Z91.5 Personal history of self-harm; Z95.810 Presence of automatic (implantable) cardiac defibrillator; Z88.5 Allergy status to narcotic agent; Z88.8 Allergy status to other drugs, medicaments and biological substances; Z79.51 Long term (current) use of inhaled steroids; Z77.22 Contact with and (suspected) exposure to environmental tobacco smoke (acute) (chronic)
CPT/HCPCS: 36415; 71045; 80053; 80306; 80320; 81000; 83735; 83874; 83880; 84484; 85025; 85610; 85730; 93005; 93041; 96361; 96374

== ENCOUNTER 2018-09-28 11:08 | Emergency (ER) | payer MEDICARE, MEDICAID ==
[~2018-09-28] VITALS: Ht 172.7 cm; Wt 78.5 kg
[~2018-09-28 11:08] MED LIST changes: -POLY255P PO; +POLY255P16 PO
[2018-09-28] MEDS ORDERED: LIDOCAINE 1% INJ 20 ML 20 ML VIAL ONE (11:12)
[2018-09-28] MEDS ORDERED: LIDOCAINE 2% 20 ML (XYLOCAINE) VIAL INJ ONE (11:30)
--- NOTE | 2018-09-28 11:34 | ED Lower Extremity ---
General Stated Complaint: BLOOD LOSS Source: patient, EMS History of Present Illness Date Seen by Provider: Sep 28, 2018 Time Seen by Provider: 11:30 Initial Comments To ER per [facility] with reports of a bleeding laceration to the right hip. Patient has had 22 hip surgeries and currently has no hip joint. He's had troubles with chronic wound to the right lateral hip treated most recently about 3 years ago with wound VAC. 2 days ago, he fell in the shower and struck this area on the edge of the shower. He's had some minor oozing of blood until today at which point he developed a rather brisk bleed. He is not on anticoagulation. Primary care is Dr. Cardona and data base design analyst is Dr. Trevino. He also states that he felt a pop in his femur similar to when he broke it in the past. Onset: other (2 days ago) Severity: moderate Pain/Injury Location: right hip Method of Injury: fell Modifying Factors: Worse With Movement Allergies and Home Medications Allergies Coded Allergies: codeine (Verified Allergy, Mild, HIVES...TAKES OXYCODONE & MS CONTIN AT HOME, 07/29/07) streptokinase (Verified Allergy, Unknown, 07/29/07) Home Medications Albuterol Sulfate 18 Gm Hfa.aer.ad, 2 PUFF INH Q4H PRN for SHORTNESS OF BREATH, (Reported) Amoxicillin/Potassium Clav 1 Each Tablet, 1 EACH PO BID Prescribed by: BRYANNA VALENTIN on 06/24/18 1126 Cephalexin 500 Mg Capsule, 500 MG PO TID Prescribed by: LOWELL STEVENS on 09/28/18 1211 Cyclobenzaprine HCl 10 Mg Tablet, 10 MG PO TID, (Reported) Furosemide 40 Mg Tablet, 40 MG PO DAILY, (Reported) Magnesium Hydroxide 400 Mg/5 Ml Oral.susp, 30 ML PO DAILY PRN for CONSTIPATION- 7TH LINE, (Reported) Morphine Sulfate 100 Mg Tablet.er, 200 MG PO BID, (Reported) TAKES 2 (100MG) TABLETS Naproxen 500 Mg Tablet, 500 MG PO BID PRN for PAIN-MILD, (Reported) Nitroglycerin 0.4 Mg Tab.subl, 0.4 MG SL UD PRN for CHEST PAIN, (Reported) Polyethylene Glycol 3350 255 Gm Powder, 17 GM PO HS PRN for CONSTIPATION-2ND LINE, (Reported) Zolpidem Tartrate 10 Mg Tablet, 10 MG PO HS, (Reported) Patient Home Medication List Home Medication List Reviewed: Yes Review of Systems Constitutional: see HPI EENTM: see HPI Respiratory: no symptoms reported Cardiovascular: no symptoms reported Genitourinary: no symptoms reported Musculoskeletal: no symptoms reported Skin: see HPI Psychiatric/Neurological: No Symptoms Reported Past Sbkawrx-Huqhsa-Aaulqc Hx Patient Social History Alcohol Beverage of Choice: Winger 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 Type Used: Cigarettes Former Smoker, Quit: May 30, 2014 2nd Hand Smoke Exposure: Yes Recent Hopitalizations: No Immunizations Up To Date Tetanus Booster (TDap): Unknown PED Vaccines UTD: No Date of Pneumonia Vaccine: Nov 08, 2012 Date of Influenza Vaccine: Jul 26, 2016 Seasonal Allergies Seasonal Allergies: No Past Medical History Surgeries: Yes Abdominal, Appendectomy, Cardiac, Defibrillator, Joint Replacement, Orthopedic, Pacemaker Respiratory: Yes (PT INTUBATED IN PAST DUE TO OVERDOSES/ETOH ) Asthma Currently Using CPAP: No Currently Using BIPAP: No Cardiac: Yes (PACEMAKER, CARDIAC ARREST, SELF - REPORTED TN X 8; CHF) Chronic Edema/Swelling, Coronary Artery Disease, Heart Attack, Hypertension, Irregular Heartbeat Neurological: Yes Neuropathy Reproductive Disorders: No Sexually Transmitted Disease: No HIV/AIDS: No Genitourinary: Yes (PT SELF-CATH'S ) Neurogenic Bladder Gastrointestinal: Yes Abdominal Hernia Musculoskeletal: Yes Arthritis, Chronic Back Pain, Fractures Endocrine: Yes (OBESITY) Diabetes, Insulin dep HEENT: Yes Dysphagia Loss of Vision: Denies Hearing Impairment: Hard of Hearing Cancer: No Psychosocial: Yes (ALCOHOL/POLYSUBSTANCE ABUSE/OVERDOSES-INTUBATED 2012, INCARCERATIONS) Suicide Attempts, Depression Integumentary: Yes (CELLULITIS OF LEGS) Blood Disorders: No Adverse Reaction/Blood Tranf: Yes (HIGH FEVER AND CHILLS) Family Medical History COPD Diabetes mellitus Physical Exam Vital Signs Vital Signs - First Documented 09/28/18 11:10 Temp 98.0 Pulse 95 Resp 20 B/P (MAP) 155/90 (111) Pulse Ox 99 O2 Delivery Room Air Capillary Refill : Height, Weight, BMI Height: 5'1.00" Weight: 235lbs. 8.0oz. 106.583108pb; 33.0 BMI Method:Stated General Appearance: WD/WN, no apparent distress HEENT: PERRL/EOMI, normal ENT inspection Respiratory: no respiratory distress, no accessory muscle use Hips: right hip swelling, right hip other (there is a 4 cm laceration over the right lateral hip with persistent oozing of blood. This was anesthetized and closed with a continuous suture) Legs: bilateral leg non-tender, bilateral leg normal inspection, bilateral leg normal range of motion Knees: bilateral knee non-tender, bilateral knee normal inspection, bilateral knee normal range of motion Ankles: bilateral ankle non-tender, bilateral ankle normal inspection, bilateral ankle normal range of motion Neurologic/Psychiatric: alert, normal mood/affect, oriented x 3 Skin: normal color, warm/dry Procedures/Interventions Wound Location: Lower Extremities Wound Length (cm): 44 Wound's Depth, Shape: sub Q Wound Explored: clean Anesthesia: 1% Lidocaine Suture: Prolene Number of Sutures: 2 (1 continuous and one simple interrupted) Layer Closure?: 1 Number Deep Layer Sutures: 0 Progress/Results/Core Measures Results/Orders Lab Results Laboratory Tests Test 09/28/18 11:30 Range/Units White Blood Count 9.5 4.3-11.0 10^3/uL Red Blood Count 4.77 4.35-5.85 10^6/uL Hemoglobin 14.4 13.3-17.7 G/DL Hematocrit 42 40-54 % Mean Corpuscular Volume 88 80-99 FL Mean Corpuscular Hemoglobin 30 25-34 PG Mean Corpuscular Hemoglobin Concent 34 32-36 G/DL Red Cell Distribution Width 14.8 H 10.0-14.5 % Platelet Count 321 130-400 10^3/uL Mean Platelet Volume 10.9 H 7.4-10.4 FL Neutrophils (%) (Auto) 58 42-75 % Lymphocytes (%) (Auto) 33 12-44 % Monocytes (%) (Auto) 7 0-12 % Eosinophils (%) (Auto) 1 0-10 % Basophils (%) (Auto) 1 0-10 % Neutrophils # (Auto) 5.5 1.8-7.8 X 10^3 Lymphocytes # (Auto) 3.1 1.0-4.0 X 10^3 Monocytes # (Auto) 0.7 0.0-1.0 X 10^3 Eosinophils # (Auto) 0.1 0.0-0.3 10^3/uL Basophils # (Auto) 0.1 0.0-0.1 10^3/uL Sodium Level 142 135-145 MMOL/L Potassium Level 4.0 3.6-5.0 MMOL/L Chloride Level 109 H 98-107 MMOL/L Carbon Dioxide Level 19 L 21-32 MMOL/L Anion Gap 14 5-14 MMOL/L Blood Urea Nitrogen 12 7-18 MG/DL Creatinine 0.86 0.60-1.30 MG/DL Estimat Glomerular Filtration Rate > 60 BUN/Creatinine Ratio 14 Glucose Level 81 70-105 MG/DL Calcium Level 9.4 8.5-10.1 MG/DL Corrected Calcium 9.3 8.5-10.1 MG/DL Total Bilirubin 0.4 0.1-1.0 MG/DL Aspartate Amino Transf (AST/SGOT) 16 5-34 U/L Alanine Aminotransferase (ALT/SGPT) 10 0-55 U/L Alkaline Phosphatase 97 40-136 U/L Total Protein 7.2 6.4-8.2 GM/DL Albumin 4.1 3.2-4.5 GM/DL My Orders Orders - LOWELL STEVENS RUBBER PRINTING MACHINE OPERATOR Cbc With Automated Diff (09/28/18 11:29) Comprehensive Metabolic Panel (09/28/18 11:29) Femur, Right, 2 Views (09/28/18 11:29) Iv Heplock-Insert (Order) (09/28/18 11:29) Lidocaine 2% Injection 20 Ml (Xylocaine (09/28/18 11:30) Pelvis (09/28/18 11:39) Medications Given in ED Current Medications Medications Dose Ordered Sig/Carl Route Start Time Stop Time Status Last Admin Dose Admin Lidocaine HCl 20 ml STK-MED ONCE .ROUTE 09/28/18 11:12 09/28/18 11:14 DC 09/28/18 11:25 20 ML Vital Signs/I&O 09/28/18 11:10 Temp 98.0 Pulse 95 Resp 20 B/P (MAP) 155/90 (111) Pulse Ox 99 O2 Delivery Room Air Departure Communication (Admissions) I did write him a prescription to be evaluated by wound care 1255-I did make an appointment for tenderness with wound care Performing Arts Road ManagerNakul Peters covering for Dr. Swenson this at 12:45 PM. His grandson is on his way to tile picker ana laura Impression Primary Impression: Open wound of right hip Qualified Codes: S71.001A - Unspecified open wound, right hip, initial encounter Disposition: 01 HOME, SELF-CARE Condition: Stable Departure-Patient Inst. Decision time for Depature: 12:10 [address]: [facility] [place] [facility] (PCP/Family) Primary Care Physician Patient Instructions: Wound Care (DC) Add. Discharge Instructions: 1. The stitches should be removed in 10 days or sooner depending on wound care' s preference. Call wound care at [phone] to make an appointment to be seen as I am concerned that you may need another wound VAC on this wound like he had 3 years ago. Antibiotics as directed. Scripts Cephalexin (Keflex) 500 Mg Capsule 500 MG PO TID, #21 CAP Prov: LOWELL STEVENS APRN 09/28/18 LOWELL STEVENS APRN Sep 28, 2018 11:33
[2018-09-28 11:40] LABS: BASOPHILS # (AUTO) 0.1 10^3/uL (0.0-0.1); BASOPHILS % (AUTO) 1 % (0-10); EOSINOPHILS # (AUTO) 0.1 10^3/uL (0.0-0.3); EOSINOPHILS % (AUTO) 1 % (0-10); HEMATOCRIT 42 % (40-54); HEMOGLOBIN 14.4 G/DL (13.3-17.7); LYMPHOCYTES # (AUTO) 3.1 X 10^3 (1.0-4.0); LYMPHOCYTES % (AUTO) 33 % (12-44); MEAN CORPUSCULAR HEMOGLOBIN 30 PG (25-34); MEAN CORPUSCULAR HGB CONC 34 G/DL (32-36); MEAN CORPUSCULAR VOLUME 88 FL (80-99); MEAN PLATELET VOLUME 10.9 FL (7.4-10.4); MONOCYTES # (AUTO) 0.7 X 10^3 (0.0-1.0); MONOCYTES % (AUTO) 7 % (0-12); NEUTROPHILS # (AUTO) 5.5 X 10^3 (1.8-7.8); NEUTROPHILS % (AUTO) 58 % (42-75); PLATELET COUNT 321 10^3/uL (130-400); RED BLOOD COUNT 4.77 10^6/uL (4.35-5.85); RED CELL DISTRIBUTION WIDTH 14.8 % (10.0-14.5); WHITE BLOOD COUNT 9.5 10^3/uL (4.3-11.0)
[2018-09-28 11:58] LABS: ALANINE AMINOTRANSFERASE 10 U/L (0-55); ALBUMIN 4.1 GM/DL (3.2-4.5); ALKALINE PHOSPHATASE 97 U/L (40-136); BILIRUBIN,TOTAL 0.4 MG/DL (0.1-1.0); BUN/CREATININE RATIO 14; CALCIUM 9.4 MG/DL (8.5-10.1); CARBON DIOXIDE 19 MMOL/L (21-32); CHLORIDE 109 MMOL/L (98-107); CREATININE SERUM 0.86 MG/DL (0.60-1.30); GFR ESTIMATED > 60; GLUCOSE 81 MG/DL (70-105); SODIUM 142 MMOL/L (135-145); TOTAL PROTEIN 7.2 GM/DL (6.4-8.2)
[2018-09-28] MEDS ORDERED: CEPH-507 PO (12:11)
--- NOTE | 2018-09-28 12:34 | Diagnostic Imaging Report ---
PATIENT HISTORY: Right hip wound, bleeding, femur injury. TECHNIQUE: Single frontal view of the pelvis. COMPARISON: 02/19/2017. FINDINGS: There is diffuse osteopenia. There is deformity of the proximal right femur with resection of the femoral neck and head. There is deformity of the right acetabulum. Heterotopic ossification is seen about the right hip. There are cerclage wires about the proximal right femur. There is also deformity at the left hip with resection of the femoral neck and head. Acetabular component of a prior prosthesis is noted. There is heterotopic ossification about the left hip. Cable wires are seen at the proximal left femur. No acute fracture is identified. There is calcific atherosclerosis. The right femoral shaft appears more aligned with the acetabulum when compared to January 2017. There are healing changes at the proximal left femur. Findings otherwise appear similar to the prior study. IMPRESSION: 1. Marked deformity of the bilateral hips appears similar to the prior exam, with no new osseous abnormality or malalignment. Dictated by: Dictated on workstation # [id number]
--- NOTE | 2018-09-28 12:37 | Diagnostic Imaging Report ---
PATIENT HISTORY: Right hip wound, injury to right femur. TECHNIQUE: Frontal and lateral views of the right femur. COMPARISON: 02/19/2017. FINDINGS: There is osteopenia. There is prior section of the right femoral head and neck with deformity of the acetabulum. Alignment of the femoral shaft with the acetabulum appears normal. There is stable ossification adjacent to the right hip. Proximal cerclage wires are seen about the femur. Multiple surgical clips are noted. Serpiginous sclerotic lesions are seen at the distal femur and proximal tibia, which have the appearance of bone infarcts. No acute fracture is identified. Alignment otherwise appears normal. IMPRESSION: 1. Postsurgical changes of the proximal right femur with stable right hip deformity compared to the prior study. 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 No acute fracture is seen. Dictated by: Dictated on workstation # [id number]
[2018-09-28 13:35] VITALS: BP 146/73
== END 2018-09-28 13:25 | disposition home or self-care (01) ==
LOC: EDUNIT# 11:08 → ER 11:09
DX: S71.001A Unspecified open wound, right hip, initial encounter (principal); J45.909 Unspecified asthma, uncomplicated; I25.2 Old myocardial infarction; I11.0 Hypertensive heart disease with heart failure; I50.9 Heart failure, unspecified; I25.10 Atherosclerotic heart disease of native coronary artery without angina pectoris; E66.9 Obesity, unspecified; E11.40 Type 2 diabetes mellitus with diabetic neuropathy, unspecified; F32.9 Major depressive disorder, single episode, unspecified; Z91.5 Personal history of self-harm; Z68.33 Body mass index [BMI] 33.0-33.9, adult; Z87.448 Personal history of other diseases of urinary system; Z88.5 Allergy status to narcotic agent; Z88.8 Allergy status to other drugs, medicaments and biological substances; Z98.890 Other specified postprocedural states; Z87.891 Personal history of nicotine dependence; Z90.49 Acquired absence of other specified parts of digestive tract; Z95.9 Presence of cardiac and vascular implant and graft, unspecified; Z95.0 Presence of cardiac pacemaker; W01.198A Fall on same level from slipping, tripping and stumbling with subsequent striking against other object, initial encounter; Y92.002 Bathroom of unspecified non-institutional (private) residence as the place of occurrence of the external cause
CPT/HCPCS: 12002; 36415; 72170; 73552; 80053; 85025

== ENCOUNTER → 2018-10-05 | Outpatient (CLI) | payer MEDICARE, MEDICAID ==
[~2018-10-05] MED LIST changes: +CEPH-507 PO
== END ==
LOC: WOUNDCARE 09:32
PROVIDERS: ATTEND Nurse Practitioner
DX: L98.492 Non-pressure chronic ulcer of skin of other sites with fat layer exposed (principal); L03.115 Cellulitis of right lower limb; T81.31XA Disruption of external operation (surgical) wound, not elsewhere classified, initial encounter
CPT/HCPCS: 11042; 87070; 87075; 87077; 87205

== ENCOUNTER → 2018-10-12 | Outpatient (CLI) | payer MEDICARE, MEDICAID | LOC: WOUNDCARE 10:04 | PROVIDERS: ATTEND Nurse Practitioner | DX: L98.492 Non-pressure chronic ulcer of skin of other sites with fat layer exposed (principal); L03.115 Cellulitis of right lower limb; T81.31XA Disruption of external operation (surgical) wound, not elsewhere classified, initial encounter | CPT/HCPCS: 11042 ==

== ENCOUNTER 2018-10-23 17:31 | Emergency (ER) | payer MEDICARE, MEDICAID ==
[~2018-10-23] VITALS: Ht 172.7 cm; Wt 77.1 kg
--- OUTSIDE RECORDS SUMMARY | 2018-10-23 17:41 | XMS REPORT | Clinical Summary ---
Author Author [facility] Organization [facility] Address Unknown Phone Unavailable Care Team Providers Care Inspector Final Assembly Conveyor Line Name Role Phone Traci Mota MD Unavailable Jonathan Beasley MD PCP Jaja Lujan MD Unavailable Skylar Stevens PA-C Unavailable Source Comments Some departments are not documenting in the electronic medical record. If you do not see the information that you expected, contact Release of Information in the Health Information Management department at [phone] for further assistance in locating additional records.[facility] Allergies Comments Active Allergy Reactions Severity Noted Date Allergy recorded in SMS: Codeine~Reactions: SWELLING~HIVES Codeine High 08/07/2003 Allergy recorded in SMS: Streptokinase~Reactions: SWELLING Streptokinase High 08/07/2003 Medications End Date Status Medication Sig Dispensed Refills Start Date Active temazepam (RESTORIL) 30 Take 30 mg by 0 mg capsule mouth at bedtime as needed. Active traZODone (DESYREL) 100 Take 100 mg 0 mg tablet by mouth at bedtime daily. Active aspirin EC 81 mg tablet Take 81 mg by 0 mouth daily. Active metFORMIN-XR(+) Take 1,000 mg 0 (GLUCOPHAGE XR) 500 mg by mouth tablet twice daily. Active amitriptyline (ELAVIL) 50 Take 50 mg by 0 mg tablet mouth at bedtime daily. Active carisoprodol(+) (SOMA) Take 350 mg 0 350 mg tablet by mouth every 8 hours as needed. Active ALPRAZolam (XANAX) 0.5 mg Take 0.5-1 mg 0 tablet by mouth three times daily as needed. PRN for severe anxiety Active Insulin Asp Prt-Insulin Inject 5 0 Aspart (NOVOLOG MIX 70-30 Units into FLEXPEN) 100 unit/mL area(s) as (70-30) InPn directed at bedtime daily. 5 units @@1700. Hold Sliding Scale for now. Active furosemide (LASIX) 20 mg Take 20 mg by 0 tablet mouth daily as needed. As needed for Edema. Active morphine SR (MS CONTIN; Take 200 mg 0 ORAMORPH SR) 100 mg by mouth tablet every 12 hours Active morphine SR (MS CONTIN; Take 100 mg 0 ORAMORPH SR) 100 mg by mouth tablet daily with lunch Active morphine IR (MSIR) 15 mg Take 3-4 Tabs 100 Tab 0 tablet by mouth 3 every 3 hours as needed for Pain Earliest Fill Date: 11/23/12 Active enoxaparin (LOVENOX) 40 Inject 0.4 mL 7 Syringe 0 mg injection syringe into area(s) 3 as directed daily. Active Problems Problem Noted Date ID (myocardial infarction) 04/04/2014 Pacemaker 04/04/2014 Asthma 04/04/2014 S/P bilateral hip replacements 04/04/2014 S/P hardware removal 04/04/2014 S/P cervical spinal fusion 04/04/2014 Hip pain 11/25/2012 Pain in joint, pelvic region and thigh 04/05/2008 Pain in joint, lower leg 04/05/2008 Social History Date Tobacco Use Types Packs/Day Years Used Current Every Day Smoker Cigarettes 0.5 35 Alcohol Use Drinks/Week oz/Week Comments Yes 1 Cans of 0.6 beer Sex Assigned at Date Recorded Not on file Industry Job Start Date Occupation Not on file Not on file Not on file Travel End Travel History Travel Start No recent travel history available. Last Filed Vital Signs Time Taken Vital Sign Reading 11/23/2012 8:30 AM [facility] Blood Pressure 147/78 11/23/2012 8:30 AM [facility] Pulse 63 11/23/2012 8:30 AM [facility] Temperature 36.8 C (98.3 F) - Respiratory Rate - 11/23/2012 8:30 AM [facility] Oxygen Saturation 97% - Inhaled Oxygen - Concentration 11/19/2012 9:57 AM [facility] Weight 86.2 kg (190 lb) 11/19/2012 9:57 AM [facility] Height 172.7 cm (5' 8") 11/19/2012 9:57 AM [facility] Body Mass Index 28.89 Plan of Treatment Health Maintenance Due Date Last Done Comments HEPATITIS C SCREENING 1952 PHYSICAL (COMPREHENSIVE) 1959 EXAM HIV SCREENING 1967 DTAP/TDAP VACCINES (1 - 1970 Tdap) COLORECTAL CANCER 2002 SCREENING SHINGLES RECOMBINANT 2002 VACCINE (1 of 2) ABDOMINAL AORTIC ANEURYSM 2017 SCREENING PNEUMONIA (PCV13/PPSV23) 2017 VACCINES (1 of 2 - PCV13) INFLUENZA VACCINE 05/26/2018 Implants Device Identifier Shelf Expiration Date Model / Serial / Lot Implanted Type Area Manufactur er Pacemaker Pacemaker Results Not on filefrom Last 3 Months Insurance Payer Benefit Subscriber ID Type Phone Address Plan / Group MEDICARE MEDICARE xxxxxxxxxx [place] B [place] xxxxxxxxxxx Medicaid [place], [place] MEDICAID Advance Directives Patient has advance care planning documents, and code status on file. For more information, please contact: [facility] [address] [place] [address] Date Inactivated Comments Code Status Date Activated 11/23/2012 4:23 PM Full Code 11/19/2012 5:11 PM Provider has discussed Code Status No, discussion not w/Patient or Family? necessary based on Dx
--- OUTSIDE RECORDS SUMMARY | 2018-10-23 17:41 | XMS REPORT ---
Author Author OLEGARIO ROSENTHAL Organization [facility] Address [address] [place] [address] Care Team Providers Care Preventive Medicine Physician Name Role Phone OLEGARIO ROSENTHAL Unavailable PROBLEMS Type Condition ICD9-CM Code [id number] Code Onset Dates Condition Status SNOMED Code Problem Pain in left hip M25.552 Active 16758234 Problem Chronic pain syndrome G89.4 Active 353939415 Problem Pain in right hip M25.551 Active 62148137 Problem Venous stasis I87.8 Active 18687629 Problem Other proteinuria R80.8 Active 60181890 Problem Arthritis M19.90 Active 0944543 Problem Chronic obstructive pulmonary disease, unspecified COPD type J44.9 Active 59855899 Problem Low back pain M54.5 Active 821956686 Problem Other chronic pain G89.29 Active 92740450 ALLERGIES No Information ENCOUNTERS Encounter Location Date Diagnosis [facility] [id number] [place] [phone]- [address]873 Sep, Chronic pain syndrome G89.4 [facility] [id number] [place] [address]- [address] Sep, [facility] [id number] [place] [address] 11118- 9869 Sep, [facility] [id number] [place] [address] 41757- 2234 Sep, Chronic pain syndrome G89.4 [facility] [id number] [place] [address] 45285- 9892 Aug, Chronic pain syndrome G89.4 [facility] [id number] [place] [address] 93149- 3220 Aug, Chronic pain syndrome G89.4 ; Chronic obstructive pulmonary disease, unspecified COPD type J44.9 ; Venous stasis I87.8 ; Arthritis M19.90 and Encounter for immunization Z23 [place] [id number] [place] [address] 99551- 1521 Aug, Chronic pain syndrome G89.4 [place] [id number] [place] [address] 22883- 8493 Jul, Chronic pain syndrome G89.4 [place] [address] [address] Jul, [place] [address] [address] Jul, Chronic pain syndrome G89.4 [place] [address] [address]- [address]184 Jun, Pain in right hip M25.551 ; Pain in left hip M25.552 ; Chronic obstructive pulmonary disease, unspecified COPD type J44.9 ; Venous stasis I87.8 and BMI 50.0-59.9, adult Z68.43 [place] [address] [address]- [address] 18 Jun, 2018 Chronic pain syndrome G89.4 [place] [id number] [place] [address] 73065- 7896 10 Jun, 2018 Chronic pain syndrome G89.4 [place] [address] [address]- [address] 05 Jun, 2018 [place] [id number] [place] [address] 27710- 3373 May, Venous stasis I87.8 ; Bronchitis J40 ; Other proteinuria R80.8 ; Chronic pain syndrome G89.4 and BMI 50.0-59.9, adult Z68.43 [place] [id number] [place] [address] 41151- 1317 May, Chronic pain syndrome G89.4 [place] [address] [address]- [address] Apr, Venous stasis I87.8 [facility] [address] [address] Apr, [facility] [id number] [place] [address] 03402- 1850 Apr, Chronic pain syndrome G89.4 [facility] [id number] [place] [address] 07393- 5368 Apr, Localized edema R60.0 and Other proteinuria R80.8 [facility] [id number] [place] [address] 03108- 6368 Apr, Chronic pain syndrome G89.4 [facility] [id number] [place] [address] 94849- 4900 Mar, Chronic pain syndrome G89.4 [facility] [id number] [place] [address] 64718- 8187 Mar, Chronic pain syndrome G89.4 [facility] [id number] [place] [address] 73257- 2[address] February, Low back pain M54.5 ; Other chronic pain G89.29 ; Arthritis M19.90 and Drug-induced constipation K59.03 [facility] [address] [address] February, [facility] [id number] [place] [address] 77075- 3030 February, Chronic pain syndrome G89.4 [facility] [address] [address] February, Chronic pain syndrome G89.4 [facility] [id number] [place] [address]2823- 2447 February, [facility] [address] [address] Jan, Chronic pain syndrome G89.4 [facility] [address] [address] Dec, [facility] [id number] [place] [address] 80492- 3646 Dec, Chronic pain syndrome G89.4 ; Arthritis M19.90 ; Chronic obstructive pulmonary disease, unspecified COPD type J44.9 and Labile hypertension R09.89 [facility] [id number] [place] [address] 30180- 4756 Dec, Chronic pain syndrome G89.4 [facility] [id number] [place] [address] 53861- 2696 Dec, [facility] [id number] [place] [address] 18891- 6346 Nov, [facility] [id number] [place] [address] 26417- 3876 Nov, Chronic pain syndrome G89.4 [facility] [id number] [address] 2546 Oct, Chronic pain syndrome G89.4 [facility] [id number] [place] [address] 53039- 6286 Oct, Chronic pain syndrome G89.4 [facility] [id number] [place] [address] 93741 2546 Oct, Chronic pain syndrome G89.4 [facility] [address] [address] 2545 Oct, Chronic pain syndrome G89.4 ; Pain in right hip M25.551 ; Pain in left hip M25.552 and Chronic obstructive pulmonary disease, unspecified COPD type J44.9 [facility] [address] [address] Sep, [facility] [address] [address] Jun, [facility] [address] [facility] [id number] [place] [address] Jun, IMMUNIZATIONS No Known Immunizations SOCIAL HISTORY Never Assessed REASON FOR VISIT ambien refill PLAN OF CARE VITAL SIGNS MEDICATIONS Medication [...] ruptured disk 1972 Hospitalization History Surgery(s) only Hospitalization History infection in left leg 06/21-06/25/18
--- OUTSIDE RECORDS SUMMARY | 2018-10-23 17:41 | XMS REPORT ---
Author Author OLEGARIO ROSENTHAL Organization [facility] Address [address] [place] [address] Care Team Providers Care Corporate Planning Manager Name Role Phone OLEGARIO ROSENTHAL Unavailable PROBLEMS Type Condition ICD9-CM Code [id number] Code Onset Dates Condition Status SNOMED Code Problem Pain in left hip M25.552 Active 28004797 Problem Chronic pain syndrome G89.4 Active 995307168 Problem Pain in right hip M25.551 Active 70104323 Problem Venous stasis I87.8 Active 05511489 Problem Other proteinuria R80.8 Active 32811089 Problem Arthritis M19.90 Active 9919903 Problem Chronic obstructive pulmonary disease, unspecified COPD type J44.9 Active 68077085 Problem Low back pain M54.5 Active 093706029 Problem Other chronic pain G89.29 Active [id number] ALLERGIES No Information ENCOUNTERS Encounter Location Date Diagnosis [facility] [id number] [place] [address] 10115- 8974 Sep, Chronic pain syndrome G89.4 [facility] [id number] [place] [address] 09392- 5132 Sep, [facility] [id number] [place] [address] 10214- 0720 Sep, [facility] [id number] [place] [address] 50369- 0446 Sep, Chronic pain syndrome G89.4 [facility] [id number] [place] [address] 12918- 5590 Aug, Chronic pain syndrome G89.4 [facility] [address] [place] [address] 61879- 4141 Aug, Chronic pain syndrome G89.4 ; Chronic obstructive pulmonary disease, unspecified COPD type J44.9 ; Venous stasis I87.8 ; Arthritis M19.90 and Encounter for immunization Z23 [place] [id number] [place] [address] 78206- 6272 Aug, Chronic pain syndrome G89.4 [place] [id number] [place] [address] 99638- 1216 Jul, Chronic pain syndrome G89.4 [place] [address] 96604- 0358 Jul, [place] [address] 89569- 8646 Jul, Chronic pain syndrome G89.4 [place] [address] 24640- 6049 Jun, Pain in right hip M25.551 ; Pain in left hip M25.552 ; Chronic obstructive pulmonary disease, unspecified COPD type J44.9 ; Venous stasis I87.8 and BMI 50.0-59.9, adult Z68.43 [place] [address] 97390- 7383 18 Jun, 2018 Chronic pain syndrome G89.4 [place] [id number] [place] [address] 91849- 4343 10 Jun, 2018 Chronic pain syndrome G89.4 [place] [address] 01278- 4907 05 Jun, 2018 [place] [id number] [place] [address] 26904- 7892 May, Venous stasis I87.8 ; Bronchitis J40 ; Other proteinuria R80.8 ; Chronic pain syndrome G89.4 and BMI 50.0-59.9, adult Z68.43 [place] [id number] [place] [address] 97108- 9319 May, Chronic pain syndrome G89.4 [place] [address] 74718- 3125 Apr, Venous stasis I87.8 [facility] [address] [address] 0606 Apr, [facility] [id number] [place] [address] 91038- 9807 Apr, Chronic pain syndrome G89.4 [facility] [id number] [place] [address] 76244- 4237 Apr, Localized edema R60.0 and Other proteinuria R80.8 [facility] [id number] [place] [address] 19337- 7888 Apr, Chronic pain syndrome G89.4 [facility] [id number] [place] [address] 23105- 0669 Mar, Chronic pain syndrome G89.4 [facility] [id number] [place] [address] 00004- 2987 Mar, Chronic pain syndrome G89.4 [facility] [id number] [place] [address] 94404- 9403 February, Low back pain M54.5 ; Other chronic pain G89.29 ; Arthritis M19.90 and Drug-induced constipation K59.03 [facility] [address] [address]- 2435 February, [facility] [id number] [place] [address] 84046- 9739 February, Chronic pain syndrome G89.4 [facility] [address] [address]- 7934 February, Chronic pain syndrome G89.4 [facility] [id number] [place] [address] 07242- 8286 February, [facility] [address] [address]- 8854 Jan, Chronic pain syndrome G89.4 [facility] [address] [address]- 6686 Dec, [facility] [id number] [place] [address] 69800- 8366 Dec, Chronic pain syndrome G89.4 ; Arthritis M19.90 ; Chronic obstructive pulmonary disease, unspecified COPD type J44.9 and Labile hypertension R09.89 [facility] [id number] [place] [address] 92379- 9936 Dec, Chronic pain syndrome G89.4 [facility] [id number] [place] [address] 28289- 2876 Dec, [facility] [id number] [place] [address] 43000- 0956 Nov, [facility] [id number] [place] [address] 54102- 5496 Nov, Chronic pain syndrome G89.4 [facility] [id number] [address] 2546 Oct, Chronic pain syndrome G89.4 [facility] [id number] [place] [address] 51590- 8016 Oct, Chronic pain syndrome G89.4 [facility] [id number] [place] [address] 94614 2546 Oct, Chronic pain syndrome G89.4 [facility] [address] [address] 2541 Oct, Chronic pain syndrome G89.4 ; Pain in right hip M25.551 ; Pain in left hip M25.552 and Chronic obstructive pulmonary disease, unspecified COPD type J44.9 [facility] [address] [address]- 3936 Sep, [facility] [address] [address]- 6406 Jun, [facility] [address] [facility] [id number] [place] [address]- 2798 Jun, IMMUNIZATIONS No Known Immunizations SOCIAL HISTORY Never Assessed REASON FOR VISIT Medication question PLAN OF CARE VITAL SIGNS MEDICATIONS Unknown [...]
--- OUTSIDE RECORDS SUMMARY | 2018-10-23 17:41 | XMS REPORT ---
Author Author OLEGARIO ROSENTHAL Organization [facility] Address [address] [place] [address] Care Team Providers Care Caretaker Grounds Name Role Phone OLEGARIO ROSENTHAL Unavailable PROBLEMS Type Condition ICD9-CM Code WNC39-XL Code Onset Dates Condition Status SNOMED Code Problem Pain in left hip M25.552 Active 51369200 Problem Chronic pain syndrome G89.4 Active 390053736 Problem Pain in right hip M25.551 Active 07951950 Problem Venous stasis I87.8 Active 92946222 Problem Other proteinuria R80.8 Active 70789957 Problem Arthritis M19.90 Active 6134561 Problem Chronic obstructive pulmonary disease, unspecified COPD type J44.9 Active 53605826 Problem Low back pain M54.5 Active 388054520 Problem Other chronic pain G89.29 Active 53494054 ALLERGIES No Information ENCOUNTERS Encounter Location Date Diagnosis [facility] [id number] [place] [address] 91377- 6586 Sep, Chronic pain syndrome G89.4 [facility] [address] [place] [address] 72994- 3124 Sep, [facility] [id number] [place] [address] 61794- 3160 Sep, [facility] [id number] [place] [address] 49725- 0551 Sep, Chronic pain syndrome G89.4 [facility] [id number] [place] [address] 17483- 4879 Aug, Chronic pain syndrome G89.4 [facility] [address] [place] [address] 52672- 8516 Aug, Chronic pain syndrome G89.4 ; Chronic obstructive pulmonary disease, unspecified COPD type J44.9 ; Venous stasis I87.8 ; Arthritis M19.90 and Encounter for immunization Z23 [place] [id number] [place] [address] 01861- 2869 Aug, Chronic pain syndrome G89.4 [place] [id number] [place] [address] 69421- 8811 Jul, Chronic pain syndrome G89.4 [place] [address] 86995- 2976 Jul, [place] [address] 88561- 0111 Jul, Chronic pain syndrome G89.4 [place] [address] 30089- 9252 Jun, Pain in right hip M25.551 ; Pain in left hip M25.552 ; Chronic obstructive pulmonary disease, unspecified COPD type J44.9 ; Venous stasis I87.8 and BMI 50.0-59.9, adult Z68.43 [place] [address] 46318- 0199 18 Jun, 2018 Chronic pain syndrome G89.4 [place] [id number] [place] [address] 30220- 5849 10 Jun, 2018 Chronic pain syndrome G89.4 [place] [address] 15684- 1631 05 Jun, 2018 [place] [id number] [place] [address] 94845- 1758 May, Venous stasis I87.8 ; Bronchitis J40 ; Other proteinuria R80.8 ; Chronic pain syndrome G89.4 and BMI 50.0-59.9, adult Z68.43 [place] [id number] [place] [address] 66830- 3349 May, Chronic pain syndrome G89.4 [place] [address] 82540- 9533 Apr, Venous stasis I87.8 [facility] [address], [place] [address]- 4397 Apr, [facility] [id number] [place] [address] 24004- 4865 Apr, Chronic pain syndrome G89.4 [facility] [id number] [place] [address] 64345- 9294 Apr, Localized edema R60.0 and Other proteinuria R80.8 [facility] [id number] [place] [address] 41094- 6471 Apr, Chronic pain syndrome G89.4 [facility] [id number] [place] [address] 45697- 8636 Mar, Chronic pain syndrome G89.4 [facility] [id number] [place] [address] 00103- 6825 Mar, Chronic pain syndrome G89.4 [facility] [id number] [place] [address] 17914- 4800 February, Low back pain M54.5 ; Other chronic pain G89.29 ; Arthritis M19.90 and Drug-induced constipation K59.03 [facility] [address], [place] [address]- 6345 February, [facility] [id number] [place] [address] 19106- 4327 February, Chronic pain syndrome G89.4 [facility] [address], [place] [address]- 4828 February, Chronic pain syndrome G89.4 [facility] [address] [place] [address] 76604- 0083 February, [facility] [address] [place] [address]- 0685 Jan, Chronic pain syndrome G89.4 [facility] [address], [place] [address]- 2996 Dec, [facility] [id number] [place] [address] 07683- 1526 Dec, Chronic pain syndrome G89.4 ; Arthritis M19.90 ; Chronic obstructive pulmonary disease, unspecified COPD type J44.9 and Labile hypertension R09.89 [facility] [id number] [place] [address] 26668- 3066 Dec, Chronic pain syndrome G89.4 [facility] [id number] [place] [address] 75156- 2166 Dec, [facility] [id number] [place] [address] 22488- 8716 Nov, [facility] [id number] [place] [address] 50638- 8356 Nov, Chronic pain syndrome G89.4 [facility] [id number] [address] 2546 Oct, Chronic pain syndrome G89.4 [facility] [id number] [place] [address] 11921- 0886 Oct, Chronic pain syndrome G89.4 [facility] [id number] [place] [address] 58640 2546 Oct, Chronic pain syndrome G89.4 [facility] [address], [place] [address] 2541 Oct, Chronic pain syndrome G89.4 ; Pain in right hip M25.551 ; Pain in left hip M25.552 and Chronic obstructive pulmonary disease, unspecified COPD type J44.9 [facility] [address], [place] [address]- 9896 Sep, [facility] [address], [place] [address]- 3266 Jun, [facility] [address] [facility] [id number] [place] [address]- 5682 Jun, IMMUNIZATIONS No Known Immunizations SOCIAL HISTORY Never Assessed REASON FOR VISIT Requests return call PLAN OF CARE VITAL SIGNS MEDICATIONS Unknown [...]
--- OUTSIDE RECORDS SUMMARY | 2018-10-23 17:42 | XMS REPORT ---
Author Author OLEGARIO ROSENTHAL [facility] Address [address] [place] [address] Care Team Providers Care Pick Up Truck Driver Name Role Phone OLEGARIO ROSENTHAL Unavailable PROBLEMS Type Condition ICD9-CM Code PNS36-XS Code Onset Dates Condition Status SNOMED Code Problem Pain in left hip M25.552 Active 09619397 Problem Chronic pain syndrome G89.4 Active 518946284 Problem Pain in right hip M25.551 Active 52930767 Problem Venous stasis I87.8 Active 95605317 Problem Other proteinuria R80.8 Active 37209759 Problem Arthritis M19.90 Active 6943909 Problem Chronic obstructive pulmonary disease, unspecified COPD type J44.9 Active 59699155 Problem Low back pain M54.5 Active 964279743 Problem Other chronic pain G89.29 Active 65488218 ALLERGIES No Information ENCOUNTERS Encounter Location Date Diagnosis [place] [id number] [place] [address] 04915- 7000 Aug, Chronic pain syndrome G89.4 ; Chronic obstructive pulmonary disease, unspecified COPD type J44.9 ; Venous stasis I87.8 ; Arthritis M19.90 and Encounter for immunization Z23 [place] [id number] [place] [address] 40979- 6620 Aug, Chronic pain syndrome G89.4 [facility] [id number] [place] [address] 08303- 1964 Jul, Chronic pain syndrome G89.4 [facility] [id number] [place] [address] 48105- 3618 Jul, [facility] [id number] [place] [address] 88990- 0210 Jul, Chronic pain syndrome G89.4 [place] [id number] [place] [address] 90534- 5264 Jun, Pain in right hip M25.551 ; Pain in left hip M25.552 ; Chronic obstructive pulmonary disease, unspecified COPD type J44.9 ; Venous stasis I87.8 and BMI 50.0-59.9, adult Z68.43 [place] [id number] [place] [address] 72632- 1672 18 Jun, 2018 Chronic pain syndrome G89.4 [place] [id number] [place] [address] 12488- 1320 Jun, Chronic pain syndrome G89.4 [place] [address] 81134- 7780 Jun, [place] [id number] [place] [address] 55332- 5916 May, Venous stasis I87.8 ; Bronchitis J40 ; Other proteinuria R80.8 ; Chronic pain syndrome G89.4 and BMI 50.0-59.9, adult Z68.43 [place] [id number] [place] [address] 77999- 6619 May, Chronic pain syndrome G89.4 [place] [id number] [place] [address] 24796- 7585 Apr, Venous stasis I87.8 [place] [id number] [place] [address] 21524- 2877 Apr, [place] [id number] [place] [address] 98036- 6989 Apr, Chronic pain syndrome G89.4 [place] [id number] [place] [address] 98541- 7243 Apr, Localized edema R60.0 and Other proteinuria R80.8 [place] [id number] [place] [address] 64579- 7298 Apr, Chronic pain syndrome G89.4 [place] [id number] [address]- 2549 Mar, Chronic pain syndrome G89.4 [facility] [id number] [place] [address] 44507- 5583 Mar, Chronic pain syndrome G89.4 [facility] [id number] [place] [address] 28115- 7165 February, Low back pain M54.5 ; Other chronic pain G89.29 ; Arthritis M19.90 and Drug-induced constipation K59.03 [facility] [id number] [place] [address] 74165- 9982 February, [facility] [id number] [place] [address] 36098- 8342 February, Chronic pain syndrome G89.4 [facility] [id number] [place] [address] 59182- 7435 February, Chronic pain syndrome G89.4 [facility] [id number] [place] [address] 73099- 2994 February, [facility] [id number] [place] [address] 55089- 6756 Jan, Chronic pain syndrome G89.4 [facility] [id number] [place] [address] 15610- 9554 Dec, [facility] [id number] [place] [address] 61063- 8624 Dec, Chronic pain syndrome G89.4 ; Arthritis M19.90 ; Chronic obstructive pulmonary disease, unspecified COPD type J44.9 and Labile hypertension R09.89 [facility] [id number] [place] [address] 93141- 0573 Dec, Chronic pain syndrome G89.4 [facility] [id number] [place] [address] 78505- 8201 Dec, [facility] [id number] [address]- 9583 Nov, [facility] [address] [place] [address]- 2644 Nov, Chronic pain syndrome G89.4 [facility] [address] [place] [address]- 5774 Oct, Chronic pain syndrome G89.4 [facility] [address] [place] [address]- 5475 Oct, Chronic pain syndrome G89.4 [facility] [address] [place] [address]- 8614 Oct, Chronic pain syndrome G89.4 [facility] [address] [place] [address]- 1032 Oct, Chronic pain syndrome G89.4 ; Pain in right hip M25.551 ; Pain in left hip M25.552 and Chronic obstructive pulmonary disease, unspecified COPD type J44.9 [facility] [address] [place] [address]- 9846 Sep, [facility] [address] [place] [address]- 3536 Jun, [facility] [address] [place] [address]- 4992 Jun, IMMUNIZATIONS No Known Immunizations SOCIAL HISTORY Never Assessed REASON FOR VISIT Controlled Med Refill 08/31 PLAN OF CARE VITAL SIGNS MEDICATIONS Medication Instructions Dosage Frequency Start Date End Date Duration Status Morphine Sulfate ER 100 mg Orally 2 times a day 2 tablet 12h Aug, 28 days Active RESULTS No Results PROCEDURES No Known procedures INSTRUCTIONS MEDICATIONS ADMINISTERED No Known Medications MEDICAL (GENERAL) HISTORY Type Description Date Medical History avascular necrosis Medical History pacemaker Medical History 22 hip replacements Surgical History 11 replacements on right and 11 replacements on left hips Surgical History back surgery ruptured disk 1973 Hospitalization History Surgery(s) only Hospitalization History infection in left leg 06/21-06/25/18
--- OUTSIDE RECORDS SUMMARY | 2018-10-23 17:42 | XMS REPORT ---
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 Truck Driver Name Role Phone OLEGARIO ROSENTHAL Unavailable PROBLEMS Type Condition ICD9-CM Code [id number] Code Onset Dates Condition Status SNOMED Code Problem Pain in left hip M25.552 Active 89414201 Problem Chronic pain syndrome G89.4 Active 769983257 Problem Pain in right hip M25.551 Active 49167073 Problem Venous stasis I87.8 Active 81823084 Problem Other proteinuria R80.8 Active 15890730 Problem Arthritis M19.90 Active 2004918 Problem Chronic obstructive pulmonary disease, unspecified COPD type J44.9 Active 60437765 Problem Low back pain M54.5 Active 374046657 Problem Other chronic pain G89.29 Active 11144440 ALLERGIES No Information ENCOUNTERS Encounter Location Date Diagnosis [place] [address] 6[address]- 7288 Sep, Chronic pain syndrome G89.4 [place] [address] [place] [id number] [place] [address] 76259- 3368 Aug, Chronic pain syndrome G89.4 [place] [address] 46788- 9313 Aug, Chronic pain syndrome G89.4 ; Chronic obstructive pulmonary disease, unspecified COPD type J44.9 ; Venous stasis I87.8 ; Arthritis M19.90 and Encounter for immunization Z23 [place] [address] 51582- 1516 Aug, Chronic pain syndrome G89.4 [place] [address] [place] [id number] [place] [address] 03481- 1997 Jul, Chronic pain syndrome G89.4 [facility] [address] [place] [id number] [place] [address] 15824- 5025 Jul, [facility] [address] [place] [id number] [place] [address] 82749- 3238 Jul, Chronic pain syndrome G89.4 [facility] [address] [place] [id number] [place] [address] 06431- 7964 Jun, Pain in right hip M25.551 ; Pain in left hip M25.552 ; Chronic obstructive pulmonary disease, unspecified COPD type J44.9 ; Venous stasis I87.8 and BMI 50.0-59.9, adult Z68.43 [place] [address] [place] [id number] [place] [address] 44270- 9702 18 Jun, 2018 Chronic pain syndrome G89.4 [place] [address] [place] [id number] [place] [address] 07294- 4537 Jun, Chronic pain syndrome G89.4 [facility] [address] [place] [id number] [place] [address] 12697- 8526 Jun, [facility] [address] [place] [id number] [place] [address] 82854- 6466 May, Venous stasis I87.8 ; Bronchitis J40 ; Other proteinuria R80.8 ; Chronic pain syndrome G89.4 and BMI 50.0-59.9, adult Z68.43 [place] [address] [place] [id number] [place] [address] 73954- 5300 May, Chronic pain syndrome G89.4 [facility] [address] [place] [id number] [place] [address] 71156- 5370 Apr, Venous stasis I87.8 [facility] [address] [place] [id number] [place] [address] 39150- 1364 Apr, [facility] [address] [place] [id number] [place] [address] 28725- 8319 Apr, Chronic pain syndrome G89.4 [facility] [address] [place] [id number] [place] [address] 42512- 4671 Apr, Localized edema R60.0 and Other proteinuria R80.8 [facility] [address] [place] [id number] [place] [address] 15255- 3004 Apr, Chronic pain syndrome G89.4 [facility] [address] [place] [id number] [place] [address] 06387- 6147 Mar, Chronic pain syndrome G89.4 [facility] [address] 07187- 4170 Mar, Chronic pain syndrome G89.4 [place] [address] 57475- 8672 February, Low back pain M54.5 ; Other chronic pain G89.29 ; Arthritis M19.90 and Drug-induced constipation K59.03 [place] [address] [place] [id number] [place] [address] 88726- 2256 February, [facility] [address] [place] [id number] [place] [address] 43993- 9611 February, Chronic pain syndrome G89.4 [facility] [address] [place] [id number] [place] [address] 70073- 0653 February, Chronic pain syndrome G89.4 [facility] [address] [place] [id number] [place] [address] 42952- 7266 February, [facility] [address] [place] [id number] [place] [address] 42934- 4180 Jan, Chronic pain syndrome G89.4 [facility] [address] [place] [id number] [place] [address] 92284- 6026 Dec, [facility] [address] [place] [id number] [place] [address] 36560- 1197 Dec, Chronic pain syndrome G89.4 ; Arthritis M19.90 ; Chronic obstructive pulmonary disease, unspecified COPD type J44.9 and Labile hypertension R09.89 [facility] [address] [address]- 9474 Dec, Chronic pain syndrome G89.4 [facility] [id number] [place] [address] 21043- 2599 Dec, [facility] [id number] [place] [address] 71950- 2207 Nov, [facility] [address] [place] [id number] [place] [address] 27561- 5699 Nov, Chronic pain syndrome G89.4 [facility] [address] [place] [id number] [place] [address] 820247- 1855 Oct, Chronic pain syndrome G89.4 [facility] [address] [place] [id number] [place] [address] 90290- 9492 Oct, Chronic pain syndrome G89.4 [place] [address] [place] [id number] [place] [address] 57485- 5345 Oct, Chronic pain syndrome G89.4 [facility] [address] [place] [id number] [place] [address] 56688- 1225 Oct, Chronic pain syndrome G89.4 ; Pain in right hip M25.551 ; Pain in left hip M25.552 and Chronic obstructive pulmonary disease, unspecified COPD type J44.9 [place] [address] [address]- 4083 Sep, [place] [address] [address]- 0984 Jun, [facility] [address] [address]- 8996 Jun, IMMUNIZATIONS No Known Immunizations SOCIAL HISTORY Never Assessed REASON FOR VISIT Controlled Med Refill 09/28 PLAN OF CARE VITAL SIGNS MEDICATIONS Medication Instructions Dosage Frequency Start Date End Date Duration Status Morphine Sulfate ER 100 mg Orally 2 times a day 2 tablet 12h Sep, 28 days Active RESULTS No Results PROCEDURES [...]
--- OUTSIDE RECORDS SUMMARY | 2018-10-23 17:42 | XMS REPORT ---
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 Name Role Phone OLEGARIO ROSENTHAL Unavailable PROBLEMS Type Condition ICD9-CM Code VQD66-VP Code Onset Dates Condition Status SNOMED Code Problem Pain in left hip M25.552 Active 47927345 Problem Chronic pain syndrome G89.4 Active 728101385 Problem Pain in right hip M25.551 Active 70648212 Problem Venous stasis I87.8 Active 43912014 Problem Other proteinuria R80.8 Active 17055144 Problem Arthritis M19.90 Active 0963701 Problem Chronic obstructive pulmonary disease, unspecified COPD type J44.9 Active 31683319 Problem Low back pain M54.5 Active 004757863 Problem Other chronic pain G89.29 Active 29682749 ALLERGIES Substance Reaction Event Type Date Status Codeine Sulfate hives Drug Allergy Aug, Active ENCOUNTERS Encounter Location Date Diagnosis [place] [id number] [place] [address] 78630- 9874 Aug, Chronic pain syndrome G89.4 ; Chronic obstructive pulmonary disease, unspecified COPD type J44.9 ; Venous stasis I87.8 ; Arthritis M19.90 and Encounter for immunization Z23 [place] [id number] [place] [address] 42400- 1346 Aug, Chronic pain syndrome G89.4 [place] [address] [place] [address] 85086- 7242 Jul, Chronic pain syndrome G89.4 [place] [address] [place] [id number] [place] [address] 63493- 2748 Jul, [place] [address] [place] [id number] [place] [address] 92847- 8588 Jul, Chronic pain syndrome G89.4 [place] [address] [place] [id number] [place] [address] 58855- 5773 Jun, Pain in right hip M25.551 ; Pain in left hip M25.552 ; Chronic obstructive pulmonary disease, unspecified COPD type J44.9 ; Venous stasis I87.8 and BMI 50.0-59.9, adult Z68.43 [place] [address] 10609- 9244 Jun, Chronic pain syndrome G89.4 [place] [address] 73427- 4607 Jun, Chronic pain syndrome G89.4 [place] [address] 80370- 7666 Jun, [place] [address] 08792- 4521 May, Venous stasis I87.8 ; Bronchitis J40 ; Other proteinuria R80.8 ; Chronic pain syndrome G89.4 and BMI 50.0-59.9, adult Z68.43 [place] [address] 33720- 0195 May, Chronic pain syndrome G89.4 [place] [address] [place] [id number] [place] [address] 01698- 2003 Apr, Venous stasis I87.8 [place] [address] 51175- 8861 Apr, [place] [address] 88952- 3120 Apr, Chronic pain syndrome G89.4 [place] [address] 78436- 6661 Apr, Localized edema R60.0 and Other proteinuria R80.8 [place] [address] 38767- 1378 Apr, Chronic pain syndrome G89.4 [facility] [address] [place] [id number] [place] [address] 44086- 8698 Mar, Chronic pain syndrome G89.4 [facility] [address] [place] [id number] [place] [address] 15973- 2471 Mar, Chronic pain syndrome G89.4 [facility] [address] [place] [id number] [place] [address] 30082- 2990 February, Low back pain M54.5 ; Other chronic pain G89.29 ; Arthritis M19.90 and Drug-induced constipation K59.03 [facility] [address] [place] [id number] [place] [address] 04339- 5001 February, [facility] [address] [place] [id number] [place] [address] 17263- 4966 February, Chronic pain syndrome G89.4 [facility] [address] [place] [id number] [place] [address] 60588- 2696 February, Chronic pain syndrome G89.4 [facility] [address] [place] [id number] [place] [address] 09533- 0637 February, [facility] [address] [place] [id number] [place] [address] 00102- 1950 Jan, Chronic pain syndrome G89.4 [facility] [address] [place] [id number] [place] [address] 61347- 7004 Dec, [facility] [address] [place] [id number] [place] [address] 41842- 3293 Dec, Chronic pain syndrome G89.4 ; Arthritis M19.90 ; Chronic obstructive pulmonary disease, unspecified COPD type J44.9 and Labile hypertension R09.89 [facility] [address] [place] [id number] [place] [address] 83623- 8568 Dec, Chronic pain syndrome G89.4 [facility] [address] [place] [id number] [place] [address] 42875- 5821 Dec, [facility] [address] [address]- 2365 Nov, [facility] [address] [place] [id number] [place] [address] 79398- 6515 Nov, Chronic pain syndrome G89.4 [place] [address] [place] [id number] [place] [address] 06226- 4266 Oct, Chronic pain syndrome G89.4 [place] [address] [place] [id number] [place] [address] 96707- 2377 Oct, Chronic pain syndrome G89.4 [place] [address] [place] [id number] [place] [address] 42474- 2694 Oct, Chronic pain syndrome G89.4 [place] [address] [place] [id number] [place] [address] 44429- 4631 Oct, Chronic pain syndrome G89.4 ; Pain in right hip M25.551 ; Pain in left hip M25.552 and Chronic obstructive pulmonary disease, unspecified COPD type J44.9 [place] [address] [place] [id number] [place] [address] 67424- 7791 Sep, [place] [address] [place] [id number] [place] [address] 77098- 6151 Jun, [place] [address] [place] [address] 13660- 1263 Jun, IMMUNIZATIONS Vaccine Route Administration Date Status FLULAVAL QUAD 0.5ML (6 MO & UP) 2017 IM Intramuscular Aug 30, 2018 Administered PCV 13 IM Intramuscular Aug 30, 2018 Administered SOCIAL HISTORY Never Assessed REASON FOR VISIT Pain management (chronic) check up Angi Poole PLAN OF CARE Activity Details Follow Up 3 Months Reason: Pending Test BMP VITAL SIGNS Height 68 in 2018-08-30 Weight 250.6 lbs 2018-08-30 Temperature 97.4 degrees Fahrenheit 2018-08-30 Heart Rate 100 bpm 2018-08-30 Respiratory Rate 20 2018-08-30 BMI 38.10 kg/m2 2018-08-30 Blood pressure systolic 144 mmHg 2018-08-30 Blood pressure diastolic 86 mmHg 2018-08-30 MEDICATIONS Medication Instructions Dosage Frequency Start Date End Date Duration Status Nitroglycerin 0.4 MG Active MiraLax - Orally Once a day 1 capful 24h February, Active Flexeril 10 mg by oral route 3 times a day 1 tablet as needed 8h 30 days Active Ambien 10 mg Orally Once a day 1 tablet at bedtime as needed 24h 28 days Active Ventolin HFA 108 (90 Base) MCG/ACT Inhalation every 6 hrs 2 puffs as needed 6h Active Cyclobenzaprine HCl 10 MG TAKE ONE (1) TABLET BY MOUTH THREE (3) TIMES DAILY NEEDED 30 Not-Taking Morphine Sulfate ER 100 mg Orally 2 times a day 2 tablet 12h Jul, 28 days Active Naproxen 500 mg Orally 2 times a day 1 tablet with food or milk as needed 12h Dec, Active Lasix 40 MG Orally Once a dayPRN for sweilling 1 tablet February, 30 day(s) Active RESULTS No Results PROCEDURES Procedure Date Ordered Result Body [facility] Aug [facility], 2018 FQ VISIT ESTABLISHED PATIENT Aug 30, 2018 SINGLE IMMUNIZATION ADMIN Aug 30, 2018 PCV 13 Aug 30, 2018 IMMUNIZATION ADMIN, EACH ADD (please include units) Aug 30, 2018 VENIPUNCT, ROUTINE* Aug 30, 2018 ADMN FLU VAC NO FEE SCHED SAME DAY Aug 30, 2018 FLULAVAL QUAD 0.5ML (6 MO & UP) 2017Aug 30, 2018 INSTRUCTIONS MEDICATIONS ADMINISTERED No Known Medications MEDICAL (GENERAL) HISTORY Type Description Date Medical History avascular necrosis Medical History pacemaker 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
--- OUTSIDE RECORDS SUMMARY | 2018-10-23 17:42 | XMS REPORT ---
Author Author VEGA WEINSTEIN Organization [facility] Address [address] [place] [address] Care Team Providers Care Supportability Engineer Name Role Phone VEGA WEINSTEIN Unavailable PROBLEMS Type Condition ICD9-CM Code JPN09-VD Code Onset Dates Condition Status SNOMED Code Problem Pain in left hip M25.552 Active 01173367 Problem Chronic pain syndrome G89.4 Active 700609681 Problem Pain in right hip M25.551 Active 89295179 Problem Venous stasis I87.8 Active 17779220 Problem Other proteinuria R80.8 Active 80787269 Problem Arthritis M19.90 Active 7301239 Problem Chronic obstructive pulmonary disease, unspecified COPD type J44.9 Active 60693214 Problem Low back pain M54.5 Active 111359521 Problem Other chronic pain G89.29 Active 20554003 ALLERGIES No Information ENCOUNTERS Encounter Location Date Diagnosis [place] [address] [place] [id number] [place] [address] 74981- 0470 Aug, [place] [address] [place] [id number] [place] [address] 42168- 4269 Jul, [place] [address] [place] [id number] [place] [address] 01313- 5544 Jul, Chronic pain syndrome G89.4 [place] [address] [place] [address] [place] [address] 12746- 4459 Jun, Pain in right hip M25.551 ; Pain in left hip M25.552 ; Chronic obstructive pulmonary disease, unspecified COPD type J44.9 ; Venous stasis I87.8 and BMI 50.0-59.9, adult Z68.43 [place] [address] [place] [address] 27668- 0090 18 Jun, 2018 Chronic pain syndrome G89.4 [place] [address] [place] [address] 77750- 4274 10 Jun, 2018 Chronic pain syndrome G89.4 [facility] [address] [place] [id number] [place] [address] 69350- 6319 05 Jun, 2018 [facility] [address] [place] [id number] [place] [address] 70644- 7523 May, Venous stasis I87.8 ; Bronchitis J40 ; Other proteinuria R80.8 ; Chronic pain syndrome G89.4 and BMI 50.0-59.9, adult Z68.43 [facility] [address] [place] [id number] [place] [address] 04597- 4961 May, Chronic pain syndrome G89.4 [facility] [address] [place] [id number] [place] [address] 02031- 3943 Apr, Venous stasis I87.8 [facility] [address] [place] [id number] [place] [address] 44246- 9015 Apr, [facility] [address] [place] [id number] [place] [address] 09261- 8124 Apr, Chronic pain syndrome G89.4 [place] [address] [place] [address] [place] [address] 02235- 6559 Apr, Localized edema R60.0 and Other proteinuria R80.8 [facility] [address] [place] [id number] [place] [address] 16476- 0340 Apr, Chronic pain syndrome G89.4 [facility] [address] [place] [id number] [place] [address] 25960- 4605 Mar, Chronic pain syndrome G89.4 [facility] [address] [place] [id number] [place] [address] 88525- 6621 Mar, Chronic pain syndrome G89.4 [facility] [address] [place] [address] [place] [address] 86187- 3007 February, Low back pain M54.5 ; Other chronic pain G89.29 ; Arthritis M19.90 and Drug-induced constipation K59.03 [facility] [address] [address]- 9563 February, [facility] [address] [place] [id number] [place] [address] 64015- 1882 February, Chronic pain syndrome G89.4 [facility] [address] [place] [address] 27115- 2679 February, Chronic pain syndrome G89.4 [facility] [address] [place] [id number] [place] [address] 07279- 2458 February, [facility] [address] [place] [id number] [place] [address] 84201- 8865 Jan, Chronic pain syndrome G89.4 [facility] [address] [place] [id number] [place] [address] 11737- 2207 Dec, [facility] [address] [place] [id number] [place] [address] 95318- 2929 Dec, Chronic pain syndrome G89.4 ; Arthritis M19.90 ; Chronic obstructive pulmonary disease, unspecified COPD type J44.9 and Labile hypertension R09.89 [facility] [address] [place] [address] 47415- 1594 Dec, Chronic pain syndrome G89.4 [facility] [address] [address]- 5816 Dec, [facility] [address] [place] [id number] [place] [address] 25680- 2446 Nov, [facility] [address] [address]- 7893 Nov, Chronic pain syndrome G89.4 [facility] [address] [address]- 3176 Oct, Chronic pain syndrome G89.4 [facility] [address] [address]- 1430 Oct, Chronic pain syndrome G89.4 [facility] [address] [facility] [id number] [address]- 2642 Oct, Chronic pain syndrome G89.4 [facility] [address] [address]- 2396 Oct, Chronic pain syndrome G89.4 ; Pain in right hip M25.551 ; Pain in left hip M25.552 and Chronic obstructive pulmonary disease, unspecified COPD type J44.9 [place] [address] [facility] [id number] [address]- 0782 Sep, [place] [address] [address]- 0053 Jun, [place] [address] [address]- 5674 Jun, IMMUNIZATIONS No Known Immunizations SOCIAL HISTORY Never Assessed REASON FOR VISIT Controlled Med Refill PLAN OF CARE VITAL SIGNS MEDICATIONS Medication Instructions Dosage Frequency Start Date End Date Duration Status Morphine Sulfate ER 100 mg Orally 2 times a day 2 tablet 12h Jul, 28 days Active RESULTS No Results PROCEDURES [...]
--- OUTSIDE RECORDS SUMMARY | 2018-10-23 17:42 | XMS REPORT ---
Author Author OLEGARIO ROSENTHAL Organization [facility] Address [address] [place] [address] Care Team Providers Care Mobile Engineer Name Role Phone OLEGARIO ROSENTHAL Unavailable PROBLEMS Type Condition ICD9-CM Code [id number] Code Onset Dates Condition Status SNOMED Code Problem Pain in left hip M25.552 Active 47861152 Problem Chronic pain syndrome G89.4 Active 722214445 Problem Pain in right hip M25.551 Active 14813722 Problem Venous stasis I87.8 Active 38623207 Problem Other proteinuria R80.8 Active 96206348 Problem Arthritis M19.90 Active 0683498 Problem Chronic obstructive pulmonary disease, unspecified COPD type J44.9 Active 50110352 Problem Low back pain M54.5 Active 159447487 Problem Other chronic pain G89.29 Active [id number] ALLERGIES No Information ENCOUNTERS Encounter Location Date Diagnosis [place] [id number] [place] [address] 68464- 7237 Aug, [facility] [id number] [place] [address] 89647- 6000 Jul, [facility] [id number] [place] [address] 26374- 9075 Jul, Chronic pain syndrome G89.4 [facility] [id number] [place] [address] 92141- 0894 Jun, Pain in right hip M25.551 ; Pain in left hip M25.552 ; Chronic obstructive pulmonary disease, unspecified COPD type J44.9 ; Venous stasis I87.8 and BMI 50.0-59.9, adult Z68.43 [facility] [id number] [place] [address] 69142- 6898 Jun, Chronic pain syndrome G89.4 [facility] [id number] [place] [address] 20816- 8016 10 Jun, 2018 Chronic pain syndrome G89.4 [facility] [id number] [place] [address] 76814- 1248 05 Jun, 2018 [facility] [id number] [place] [address] 56948- 3905 May, Venous stasis I87.8 ; Bronchitis J40 ; Other proteinuria R80.8 ; Chronic pain syndrome G89.4 and BMI 50.0-59.9, adult Z68.43 [facility] [address] 78802- 9451 May, Chronic pain syndrome G89.4 [facility] [id number] [place] [address] 75312- 7238 Apr, Venous stasis I87.8 [facility] [address] 92506- 3352 Apr, [facility] [id number] [place] [address] 49499- 4409 Apr, Chronic pain syndrome G89.4 [facility] [id number] [place] [address] 92955- 6568 Apr, Localized edema R60.0 and Other proteinuria R80.8 [facility] [id number] [place] [address] 81263- 7810 Apr, Chronic pain syndrome G89.4 [facility] [id number] [place] [address] 99151- 3500 Mar, Chronic pain syndrome G89.4 [facility] [id number] [place] [address] 11898- 8729 Mar, Chronic pain syndrome G89.4 [facility] [id number] [place] [address] 23161- 7604 February, Low back pain M54.5 ; Other chronic pain G89.29 ; Arthritis M19.90 and Drug-induced constipation K59.03 [facility] [id number] [place] [address] 99747- 7595 February, [facility] [id number] [place] [address] 81796- 1362 February, Chronic pain syndrome G89.4 [facility] [id number] [place] [address] 76259- 4699 February, Chronic pain syndrome G89.4 [facility] [id number] [place] [address] 37090- 1559 February, [facility] [id number] [place] [address] 03988- 2469 Jan, Chronic pain syndrome G89.4 [facility] [id number] [place] [address] 10324- 2811 Dec, [facility] [id number] [place] [address] 70301- 4499 Dec, Chronic pain syndrome G89.4 ; Arthritis M19.90 ; Chronic obstructive pulmonary disease, unspecified COPD type J44.9 and Labile hypertension R09.89 [facility] [id number] [place] [address] 27513- 3827 Dec, Chronic pain syndrome G89.4 [facility] [id number] [place] [address] 39504- 4069 Dec, [facility] [id number] [place] [address] 71257- 0557 Nov, [facility] [id number] [place] [address] 98319- 6666 Nov, Chronic pain syndrome G89.4 [facility] [id number] [place] [address] 73569- 5189 Oct, Chronic pain syndrome G89.4 [facility] [id number] [place] [address] 56012- 4226 Oct, Chronic pain syndrome G89.4 [facility] [id number] 6519 Oct, Chronic pain syndrome G89.4 [facility] [id number] [address]- 8596 Oct, Chronic pain syndrome G89.4 ; Pain in right hip M25.551 ; Pain in left hip M25.552 and Chronic obstructive pulmonary disease, unspecified COPD type J44.9 [place] [id number] 4161 Sep, [place] [id number] [address]- 3248 Jun, [place] [id number] [address] 6014 Jun, IMMUNIZATIONS No Known Immunizations SOCIAL HISTORY Never Assessed REASON FOR VISIT Prior Authorization Request PLAN OF CARE VITAL SIGNS MEDICATIONS Unknown [...]
--- OUTSIDE RECORDS SUMMARY | 2018-10-23 17:42 | XMS REPORT ---
Author Author OLEGARIO ROSENTHAL Organization [facility] Address [address] [place] [address] Care Team Providers Care Softball Coach Name Role Phone OLEGARIO ROSENTHAL Unavailable PROBLEMS Type Condition ICD9-CM Code EEI08-BY Code Onset Dates Condition Status SNOMED Code Problem Pain in left hip M25.552 Active 44332030 Problem Chronic pain syndrome G89.4 Active 527417929 Problem Pain in right hip M25.551 Active 71675010 Problem Venous stasis I87.8 Active 23065395 Problem Other proteinuria R80.8 Active 33968637 Problem Arthritis M19.90 Active 8113458 Problem Chronic obstructive pulmonary disease, unspecified COPD type J44.9 Active 61206104 Problem Low back pain M54.5 Active 400003166 Problem Other chronic pain G89.29 Active 43111405 ALLERGIES No Information ENCOUNTERS Encounter Location Date Diagnosis [place] [id number] [place] [address] 49916- 3542 Aug, Chronic pain syndrome G89.4 [place] [id number] [place] [address] 07776- 7242 Aug, Chronic pain syndrome G89.4 ; Chronic obstructive pulmonary disease, unspecified COPD type J44.9 ; Venous stasis I87.8 ; Arthritis M19.90 and Encounter for immunization Z23 [facility] [id number] [place] [address] 21577- 9893 Aug, Chronic pain syndrome G89.4 [facility] [id number] [place] [address] 04845- 4265 Jul, Chronic pain syndrome G89.4 [facility] [id number] [place] [address] 51847- 4508 Jul, [place] [id number] [place] [address] 22861- 7237 Jul, Chronic pain syndrome G89.4 [place] [address] 48616- 2015 21 Jun, 2018 Pain in right hip M25.551 ; Pain in left hip M25.552 ; Chronic obstructive pulmonary disease, unspecified COPD type J44.9 ; Venous stasis I87.8 and BMI 50.0-59.9, adult Z68.43 [place] [address] 25717- 1987 18 Jun, 2018 Chronic pain syndrome G89.4 [place] [address] 14182- 4560 10 Jun, 2018 Chronic pain syndrome G89.4 [place] [address] 48746- 6690 Jun, [place] [address] 42993- 3127 May, Venous stasis I87.8 ; Bronchitis J40 ; Other proteinuria R80.8 ; Chronic pain syndrome G89.4 and BMI 50.0-59.9, adult Z68.43 [place] [id number] [place] [address] 79562- 4237 May, Chronic pain syndrome G89.4 [place] [id number] [place] [address] 48776- 5654 Apr, Venous stasis I87.8 [place] [id number] [place] [address] 62631- 3524 Apr, [place] [address] 31080- 7436 Apr, Chronic pain syndrome G89.4 [place] [id number] [place] [address] 67216- 2057 Apr, Localized edema R60.0 and Other proteinuria R80.8 [place] [address], [place] [address]- 3155 Apr, Chronic pain syndrome G89.4 [facility] [id number] [place] [address] 17357- 3568 Mar, Chronic pain syndrome G89.4 [facility] [id number] [address]- 4827 Mar, Chronic pain syndrome G89.4 [facility] [id number] [place] [address] 62917- 5487 February, Low back pain M54.5 ; Other chronic pain G89.29 ; Arthritis M19.90 and Drug-induced constipation K59.03 [facility] [id number] [address]- 6858 February, [facility] [id number] [place] [address] 55118- 6702 February, Chronic pain syndrome G89.4 [facility] [id number] [place] [address] 53162- 2984 February, Chronic pain syndrome G89.4 [facility] [id number] [place] [address] 18020- 2017 February, [facility] [address], [place] [address]- 1660 Jan, Chronic pain syndrome G89.4 [facility] [id number] [address]- 2864 Dec, [facility] [id number] [place] [address] 54068- 9292 Dec, Chronic pain syndrome G89.4 ; Arthritis M19.90 ; Chronic obstructive pulmonary disease, unspecified COPD type J44.9 and Labile hypertension R09.89 [facility] [address], [place] [address]- 9381 Dec, Chronic pain syndrome G89.4 [facility] [address], [place] [address]- 0481 Dec, [place] [id number] [place] [address] 80469- 5082 Nov, [facility] [id number] [place] [address] 32104- 1371 Nov, Chronic pain syndrome G89.4 [place] [id number] [place] [address] 36620- 8491 Oct, Chronic pain syndrome G89.4 [place] [id number] [place] [address] 02809- 9468 Oct, Chronic pain syndrome G89.4 [place] [id number] [place] [address] 25805- 9550 Oct, Chronic pain syndrome G89.4 [place] [id number] [place] [address] 93024- 4005 Oct, Chronic pain syndrome G89.4 ; Pain in right hip M25.551 ; Pain in left hip M25.552 and Chronic obstructive pulmonary disease, unspecified COPD type J44.9 [place] [address] [place] [address] 09832- 8047 Sep, [place] [address], [place] [address]- 7925 Jun, [place] [address] [place] [address] 76622- 6990 Jun, IMMUNIZATIONS No Known Immunizations SOCIAL HISTORY Never Assessed REASON FOR VISIT Controlled Med Refill 09/07 PLAN OF CARE VITAL SIGNS MEDICATIONS Medication [...] only Hospitalization History infection in left leg 8/27-06/25/18
--- OUTSIDE RECORDS SUMMARY | 2018-10-23 17:43 | XMS REPORT ---
Author Author OLEGARIO ROSENTHAL Organization [facility] Address [address] [place] [address] Care Team Providers Care Dairy And Food Laboratory Assistant Name Role Phone OLEGARIO ROSENTHAL Unavailable PROBLEMS Type Condition ICD9-CM Code [id number] Code Onset Dates Condition Status SNOMED Code Problem Pain in left hip M25.552 Active 47650920 Problem Chronic pain syndrome G89.4 Active 672857187 Problem Pain in right hip M25.551 Active 62903688 Problem Venous stasis I87.8 Active 88908669 Problem Other proteinuria R80.8 Active 76175234 Problem Arthritis M19.90 Active 9442059 Problem Chronic obstructive pulmonary disease, unspecified COPD type J44.9 Active 08655964 Problem Low back pain M54.5 Active 923176657 Problem Other chronic pain G89.29 Active 63303185 ALLERGIES No Information ENCOUNTERS Encounter Location Date Diagnosis [place] [address] 75214- 4994 Jun, [place] [address] 43132- 9559 Jun, [place] [id number] [place] [address] 29058- 0211 May, Venous stasis I87.8 ; Bronchitis J40 ; Other proteinuria R80.8 ; Chronic pain syndrome G89.4 and BMI 50.0-59.9, adult Z68.43 [place] [address] 98106- 1016 May, Chronic pain syndrome G89.4 [place] [address] 14175- 8352 Apr, Venous stasis I87.8 [place] [address] [place] [address]- 3255 Apr, [facility] [id number] [place] [address] 02933- 4705 Apr, Chronic pain syndrome G89.4 [facility] [id number] [place] [address] 04678- 1350 Apr, Localized edema R60.0 and Other proteinuria R80.8 [facility] [id number] [place] [address] 04248- 4597 Apr, Chronic pain syndrome G89.4 [facility] [id number] [place] [address] 84754- 6125 Mar, Chronic pain syndrome G89.4 [facility] [id number] [place] [address] 68420- 3295 Mar, Chronic pain syndrome G89.4 [facility] [id number] [place] [address] 46305- 9324 February, Low back pain M54.5 ; Other chronic pain G89.29 ; Arthritis M19.90 and Drug-induced constipation K59.03 [facility] [id number] [place] [address] 09613- 1630 February, [facility] [id number] [place] [address] 79436- 1182 February, Chronic pain syndrome G89.4 [facility] [id number] [place] [address] 46874- 4662 February, Chronic pain syndrome G89.4 [facility] [id number] [place] [address] 59060- 9049 February, [facility] [id number] [place] [address] 99757- 9101 Jan, Chronic pain syndrome G89.4 [facility] [id number] [place] [address] 04082- 5961 Dec, [facility] [address], [place] [address]- 0064 Dec, Chronic pain syndrome G89.4 ; Arthritis M19.90 ; Chronic obstructive pulmonary disease, unspecified COPD type J44.9 and Labile hypertension R09.89 [facility] [address], [place] [address]- 9956 Dec, Chronic pain syndrome G89.4 [facility] [id number], [place] [address]- 5996 Dec, [facility] [address], [place] [address]- 2212 Nov, [facility] [id number], [place] [address]- 8218 Nov, Chronic pain syndrome G89.4 [facility] [address], [place] [address]- 6726 Oct, Chronic pain syndrome G89.4 [facility] [address], [place] [address]- 0738 Oct, Chronic pain syndrome G89.4 [facility] [address], [place] [address]- 3198 Oct, Chronic pain syndrome G89.4 [facility] [address], [place] [address]- 4226 Oct, Chronic pain syndrome G89.4 ; Pain in right hip M25.551 ; Pain in left hip M25.552 and Chronic obstructive pulmonary disease, unspecified COPD type J44.9 [facility] [address], [place] [address]- 5756 Sep, [facility] [address], [place] [address]- 7952 Jun, [facility] [address], [place] [address]- 4471 Jun, IMMUNIZATIONS No Known Immunizations SOCIAL HISTORY Never Assessed REASON FOR VISIT Ambien PLAN OF CARE VITAL SIGNS MEDICATIONS Medication [...]
--- OUTSIDE RECORDS SUMMARY | 2018-10-23 17:43 | XMS REPORT ---
Author Author OLEGARIO ROSENTHAL Organization [facility] Address [address] [place] [address] Care Team Providers Care Facility Maintenance Technician Name Role Phone OLEGARIO ROSENTHAL Unavailable PROBLEMS Type Condition ICD9-CM Code BOR24-YS Code Onset Dates Condition Status SNOMED Code Problem Pain in left hip M25.552 Active 91569751 Problem Chronic pain syndrome G89.4 Active 551241866 Problem Pain in right hip M25.551 Active 39175114 Problem Venous stasis I87.8 Active 51255843 Problem Other proteinuria R80.8 Active 35766453 Problem Arthritis M19.90 Active 5241494 Problem Chronic obstructive pulmonary disease, unspecified COPD type J44.9 Active 60456315 Problem Low back pain M54.5 Active 774439593 Problem Other chronic pain G89.29 Active 79739019 ALLERGIES No Information ENCOUNTERS Encounter Location Date Diagnosis [place] [id number] [place] [address] 66760- 9405 Jun, Pain in right hip M25.551 ; Pain in left hip M25.552 ; Chronic obstructive pulmonary disease, unspecified COPD type J44.9 ; Venous stasis I87.8 and BMI 50.0-59.9, adult Z68.43 [place] [address] [place] [address] 75384- 5329 Jun, Chronic pain syndrome G89.4 [place] [address] [place] [address] 64602- 1804 Jun, Chronic pain syndrome G89.4 [facility] [id number] [place] [address] 80224- 8087 Jun, [place] [id number] [place] [address] 07053- 8407 May, Venous stasis I87.8 ; Bronchitis J40 ; Other proteinuria R80.8 ; Chronic pain syndrome G89.4 and BMI 50.0-59.9, adult Z68.43 [place] [address] 97862- 6894 May, Chronic pain syndrome G89.4 [facility] [address] 78168- 5108 Apr, Venous stasis I87.8 [facility] [address] 71154- 5006 Apr, [place] [address] 20196- 4372 Apr, Chronic pain syndrome G89.4 [place] [address] 23144- 5969 Apr, Localized edema R60.0 and Other proteinuria R80.8 [place] [address] 30140- 5205 Apr, Chronic pain syndrome G89.4 [place] [address] 78877- 0270 Mar, Chronic pain syndrome G89.4 [place] [address] 46423- 0511 Mar, Chronic pain syndrome G89.4 [place] [address] 59441- 6939 February, Low back pain M54.5 ; Other chronic pain G89.29 ; Arthritis M19.90 and Drug-induced constipation K59.03 [place] [address] 83729- 8088 February, [place] [address] 82275- 3248 February, Chronic pain syndrome G89.4 [place] [address] [place] [address]- 7282 February, Chronic pain syndrome G89.4 [facility] [id number] [place] [address] 49260- 7616 February, [facility] [id number] [place] [address] 97856- 0406 Jan, Chronic pain syndrome G89.4 [facility] [id number] [place] [address] 39628- 0926 Dec, [facility] [id number] [place] [address] 62855- 1998 Dec, Chronic pain syndrome G89.4 ; Arthritis M19.90 ; Chronic obstructive pulmonary disease, unspecified COPD type J44.9 and Labile hypertension R09.89 [facility] [id number] [place] [address] 46268- 2818 Dec, Chronic pain syndrome G89.4 [facility] [id number] [place] [address] 38752- 3874 Dec, [facility] [id number] [place] [address] 88838- 6246 Nov, [facility] [id number] [place] [address] 16059- 2708 Nov, Chronic pain syndrome G89.4 [facility] [address] [address]- 2706 Oct, Chronic pain syndrome G89.4 [facility] [address] [address]- 9046 Oct, Chronic pain syndrome G89.4 [facility] [id number] [place] [address] 00884- 1866 Oct, Chronic pain syndrome G89.4 [facility] [address] [address]- 5046 Oct, Chronic pain syndrome G89.4 ; Pain in right hip M25.551 ; Pain in left hip M25.552 and Chronic obstructive pulmonary disease, unspecified COPD type J44.9 [facility] [address] [facility] [id number] 8688 Sep, [facility] [address] [facility] [id number] 7390 Jun, [facility] [address] [facility] [id number] [address]- 4593 Jun, IMMUNIZATIONS No Known Immunizations SOCIAL HISTORY [...]
--- OUTSIDE RECORDS SUMMARY | 2018-10-23 17:43 | XMS REPORT ---
Author Author OLEGARIO ROSENTHAL Organization [facility] Address [address] [place] [address] Care Team Providers Care Cloth Inspector Name Role Phone OLEGARIO ROSENTHAL Unavailable PROBLEMS Type Condition ICD9-CM Code [id number] Code Onset Dates Condition Status SNOMED Code Problem Pain in left hip M25.552 Active 03807965 Problem Chronic pain syndrome G89.4 Active 058655657 Problem Pain in right hip M25.551 Active 31512375 Problem Venous stasis I87.8 Active 89245231 Problem Other proteinuria R80.8 Active 53922978 Problem Arthritis M19.90 Active 1357382 Problem Chronic obstructive pulmonary disease, unspecified COPD type J44.9 Active 04987867 Problem Low back pain M54.5 Active 537164017 Problem Other chronic pain G89.29 Active 59131515 ALLERGIES No Information ENCOUNTERS Encounter Location Date Diagnosis [place] [id number] [place] [address] 74273- 0802 Jun, Pain in right hip M25.551 ; Pain in left hip M25.552 ; Chronic obstructive pulmonary disease, unspecified COPD type J44.9 ; Venous stasis I87.8 and BMI 50.0-59.9, adult Z68.43 [place] [id number] [place] [address] 26923- 0073 Jun, Chronic pain syndrome G89.4 [place] [id number] [place] [address] 08321- 8283 Jun, Chronic pain syndrome G89.4 [facility] [id number] [place] [address] 99240- 5608 Jun, [place] [id number] [place] [address] 92329- 2708 May, Venous stasis I87.8 ; Bronchitis J40 ; Other proteinuria R80.8 ; Chronic pain syndrome G89.4 and BMI 50.0-59.9, adult Z68.43 [place] [address] 76903- 5968 May, Chronic pain syndrome G89.4 [facility] [address] 30826- 0080 Apr, Venous stasis I87.8 [facility] [address] 07959- 2176 Apr, [place] [address] 18061- 6830 Apr, Chronic pain syndrome G89.4 [place] [address] 05890- 7201 Apr, Localized edema R60.0 and Other proteinuria R80.8 [place] [address] 40333- 0053 Apr, Chronic pain syndrome G89.4 [place] [address] 00410- 4788 Mar, Chronic pain syndrome G89.4 [place] [address] 57642- 4378 Mar, Chronic pain syndrome G89.4 [place] [address] 85841- 7786 February, Low back pain M54.5 ; Other chronic pain G89.29 ; Arthritis M19.90 and Drug-induced constipation K59.03 [place] [address] 39484- 8273 February, [place] [address] 63635- 5565 February, Chronic pain syndrome G89.4 [place] [address] [place] [address]- 9026 February, Chronic pain syndrome G89.4 [facility] [id number] [place] [address] 53432- 5816 February, [facility] [id number] [place] [address] 35385- 5246 Jan, Chronic pain syndrome G89.4 [facility] [id number] [place] [address] 46273- 1556 Dec, [facility] [id number] [place] [address] 34559- 2217 Dec, Chronic pain syndrome G89.4 ; Arthritis M19.90 ; Chronic obstructive pulmonary disease, unspecified COPD type J44.9 and Labile hypertension R09.89 [facility] [id number] [place] [address] 61510- 1959 Dec, Chronic pain syndrome G89.4 [facility] [id number] [place] [address] 86558- 7815 Dec, [facility] [id number] [place] [address] 25290- 3208 Nov, [facility] [id number] [place] [address] 99491- 7694 Nov, Chronic pain syndrome G89.4 [facility] [address] [address] 3796 Oct, Chronic pain syndrome G89.4 [facility] [address] [address]- 9716 Oct, Chronic pain syndrome G89.4 [facility] [id number] [place] [address] 31022- 4616 Oct, Chronic pain syndrome G89.4 [facility] [address] [address]- 3586 Oct, Chronic pain syndrome G89.4 ; Pain in right hip M25.551 ; Pain in left hip M25.552 and Chronic obstructive pulmonary disease, unspecified COPD type J44.9 [facility] [address] [facility] [id number] [place] [address] 86[address] Sep, [facility] [address] [facility] [id number] [address] Jun, [facility] [address] [facility] [id number], [place] [address] 29[address] Jun, IMMUNIZATIONS No Known Immunizations SOCIAL HISTORY Never Assessed REASON FOR VISIT Controlled Med Refill 07/06 PLAN OF CARE VITAL SIGNS MEDICATIONS Medication Instructions Dosage Frequency Start Date End Date Duration Status Morphine Sulfate ER 100 mg Orally 2 times a day 2 tablet 12h 11 Jun, 2018 28 days Active RESULTS No Results [...]
--- OUTSIDE RECORDS SUMMARY | 2018-10-23 17:43 | XMS REPORT ---
Author Author OLEGARIO ROSENTHAL Organization [facility] Address [address] [place] [address] Care Team Providers Care Wound Care Nurse Name Role Phone OLEGARIO ROSENTHAL Unavailable PROBLEMS Type Condition ICD9-CM Code CNI15-PF Code Onset Dates Condition Status SNOMED Code Problem Pain in left hip M25.552 Active 70282940 Problem Chronic pain syndrome G89.4 Active 279563866 Problem Pain in right hip M25.551 Active 67066300 Problem Venous stasis I87.8 Active 66390469 Problem Other proteinuria R80.8 Active 78709355 Problem Arthritis M19.90 Active 0890672 Problem Chronic obstructive pulmonary disease, unspecified COPD type J44.9 Active 62655831 Problem Low back pain M54.5 Active 317376020 Problem Other chronic pain G89.29 Active [id number] ALLERGIES No Information ENCOUNTERS Encounter Location Date Diagnosis [place] [address] 27337- 8983 14 Jun, 2018 [place] [id number] [place] [address] 66298- 7427 10 Jun, 2018 [place] [id number] [place] [address] 60269- 0979 05 Jun, 2018 [place] [address] 89447- 1058 17 May, 2018 Venous stasis I87.8 ; Bronchitis J40 ; Other proteinuria R80.8 ; Chronic pain syndrome G89.4 and BMI 50.0-59.9, adult Z68.43 [facility] [address] 34713- 9530 13 May, 2018 Chronic pain syndrome G89.4 [place] [address] 80035- 8266 Apr, Venous stasis I87.8 [facility] [id number] [place] [address] 27480- 1097 Apr, [facility] [id number] [place] [address] 54745- 5972 Apr, Chronic pain syndrome G89.4 [facility] [id number] [place] [address] 99799- 8687 Apr, Localized edema R60.0 and Other proteinuria R80.8 [facility] [id number] [place] [address] 68998- 1007 Apr, Chronic pain syndrome G89.4 [facility] [id number] [place] [address] 48043- 0571 Mar, Chronic pain syndrome G89.4 [facility] [id number] [place] [address] 68232- 1856 Mar, Chronic pain syndrome G89.4 [facility] [id number] [place] [address] 37127- 5886 February, Low back pain M54.5 ; Other chronic pain G89.29 ; Arthritis M19.90 and Drug-induced constipation K59.03 [facility] [id number] [place] [address] 66291- 1183 February, [facility] [id number] [place] [address] 49214- 5068 February, Chronic pain syndrome G89.4 [facility] [id number] [place] [address] 80742- 7324 February, Chronic pain syndrome G89.4 [facility] [id number] [place] [address] 56188- 6798 February, [facility] [id number] [place] [address] 26466- 0894 Jan, Chronic pain syndrome G89.4 [facility] [address] [address]- 0882 Dec, [facility] [id number] [place] [address] 21174- 8969 Dec, Chronic pain syndrome G89.4 ; Arthritis M19.90 ; Chronic obstructive pulmonary disease, unspecified COPD type J44.9 and Labile hypertension R09.89 [facility] [id number] [place] [address] 19176- 6406 Dec, Chronic pain syndrome G89.4 [facility] [id number] [place] [address] 33531- 7112 Dec, [facility] [id number] [place] [address] 09359- 2566 Nov, [facility] [id number] [place] [address] 75816- 3314 Nov, Chronic pain syndrome G89.4 [facility] [id number] [place] [address] 53395- 3666 Oct, Chronic pain syndrome G89.4 [facility] [id number] [place] [address] 18352- 8356 Oct, Chronic pain syndrome G89.4 [facility] [id number] [place] [address] 57309- 0461 Oct, Chronic pain syndrome G89.4 [facility] [address] [place] [address] 92474- 2545 Oct, Chronic pain syndrome G89.4 ; Pain in right hip M25.551 ; Pain in left hip M25.552 and Chronic obstructive pulmonary disease, unspecified COPD type J44.9 [facility] [address] [place] [address] 42024- 3046 Sep, [facility] [address] [address]- 2076 Jun, [facility] [address] [place] [address] [place] [address]- 4645 08 Jun, 2014 IMMUNIZATIONS No Known Immunizations SOCIAL HISTORY Never Assessed REASON FOR VISIT leg swelling PLAN OF CARE VITAL SIGNS MEDICATIONS Unknown [...]
--- OUTSIDE RECORDS SUMMARY | 2018-10-23 17:43 | XMS REPORT ---
Author Author OLEGARIO ROSENTHAL Organization [facility] Address [address] [place] [address] Care Team Providers Care Lens Silverer Name Role Phone OLEGARIO ROSENTHAL Unavailable PROBLEMS Type Condition ICD9-CM Code XBL42-GU Code Onset Dates Condition Status SNOMED Code Problem Pain in left hip M25.552 Active 81216122 Problem Chronic pain syndrome G89.4 Active 062334877 Problem Pain in right hip M25.551 Active 65014842 Problem Venous stasis I87.8 Active 75213317 Problem Other proteinuria R80.8 Active 93367417 Problem Arthritis M19.90 Active 7133827 Problem Chronic obstructive pulmonary disease, unspecified COPD type J44.9 Active 54993598 Problem Low back pain M54.5 Active 395240413 Problem Other chronic pain G89.29 Active [id number] ALLERGIES No Information ENCOUNTERS Encounter Location Date Diagnosis [place] [id number] [place] [address] 83958- 5536 Jun, Pain in right hip M25.551 ; Pain in left hip M25.552 ; Chronic obstructive pulmonary disease, unspecified COPD type J44.9 ; Venous stasis I87.8 and BMI 50.0-59.9, adult Z68.43 [place] [address] [place] [address] 80875- 5349 Jun, Chronic pain syndrome G89.4 [place] [address] [place] [address] 64392- 7675 Jun, Chronic pain syndrome G89.4 [facility] [id number] [place] [address] 44936- 7711 Jun, [place] [id number] [place] [address] 17060- 6630 May, Venous stasis I87.8 ; Bronchitis J40 ; Other proteinuria R80.8 ; Chronic pain syndrome G89.4 and BMI 50.0-59.9, adult Z68.43 [place] [address] 41197- 8229 May, Chronic pain syndrome G89.4 [facility] [address] 45979- 1183 Apr, Venous stasis I87.8 [facility] [address] 25270- 6226 Apr, [place] [address] 55303- 5140 Apr, Chronic pain syndrome G89.4 [place] [address] 29607- 6451 Apr, Localized edema R60.0 and Other proteinuria R80.8 [place] [address] 31701- 2251 Apr, Chronic pain syndrome G89.4 [place] [address] 96138- 6421 Mar, Chronic pain syndrome G89.4 [place] [address] 29967- 9783 Mar, Chronic pain syndrome G89.4 [place] [address] 57027- 9242 February, Low back pain M54.5 ; Other chronic pain G89.29 ; Arthritis M19.90 and Drug-induced constipation K59.03 [place] [address] 49850- 4859 February, [place] [address] 10031- 8973 February, Chronic pain syndrome G89.4 [place] [address] [place] [address]- 1416 February, Chronic pain syndrome G89.4 [facility] [id number] [place] [address] 90318- 3606 February, [facility] [id number] [place] [address] 91153- 8056 Jan, Chronic pain syndrome G89.4 [facility] [id number] [place] [address] 81678- 6236 Dec, [facility] [id number] [place] [address] 02704- 4995 Dec, Chronic pain syndrome G89.4 ; Arthritis M19.90 ; Chronic obstructive pulmonary disease, unspecified COPD type J44.9 and Labile hypertension R09.89 [facility] [id number] [place] [address] 19821- 9061 Dec, Chronic pain syndrome G89.4 [facility] [id number] [place] [address] 22441- 8836 Dec, [facility] [id number] [place] [address] 65401- 3201 Nov, [facility] [id number] [place] [address] 61093- 3548 Nov, Chronic pain syndrome G89.4 [facility] [address] [address]- 1746 Oct, Chronic pain syndrome G89.4 [facility] [address] [address]- 1846 Oct, Chronic pain syndrome G89.4 [facility] [id number] [place] [address] 12386- 0816 Oct, Chronic pain syndrome G89.4 [facility] [address] [address]- 4226 Oct, Chronic pain syndrome G89.4 ; Pain in right hip M25.551 ; Pain in left hip M25.552 and Chronic obstructive pulmonary disease, unspecified COPD type J44.9 [facility] [address] [facility] [id number] [place] [address]- 7462 Sep, [facility] [address] [facility] [id number] [address] 0569 Jun, [facility] [address] [facility] [id number] [address]- [address] Jun, IMMUNIZATIONS No Known Immunizations SOCIAL HISTORY Never Assessed REASON FOR VISIT Refill request PLAN OF CARE VITAL SIGNS MEDICATIONS No Known Medications RESULTS No Results PROCEDURES No Known [...]
--- OUTSIDE RECORDS SUMMARY | 2018-10-23 17:43 | XMS REPORT ---
Author Author OLEGARIO ROSENTHAL Organization [facility] Address [address] [place] [address] Care Team Providers Care Upholstery Tech Name Role Phone OLEGARIO ROSENTHAL Unavailable PROBLEMS Type Condition ICD9-CM Code LEF97-UG Code Onset Dates Condition Status SNOMED Code Problem Pain in left hip M25.552 Active 96320384 Problem Chronic pain syndrome G89.4 Active 489510489 Problem Pain in right hip M25.551 Active 34673013 Problem Venous stasis I87.8 Active 15275870 Problem Other proteinuria R80.8 Active 88867186 Problem Arthritis M19.90 Active 2759085 Problem Chronic obstructive pulmonary disease, unspecified COPD type J44.9 Active 22083920 Problem Low back pain M54.5 Active 164555679 Problem Other chronic pain G89.29 Active [id number] ALLERGIES No Information ENCOUNTERS Encounter Location Date Diagnosis [place] [address] 95981- 9303 Jun, [place] [address] 04859- 5286 Jun, [place] [address] [place] [id number] [place] [address] 36045- 3048 May, Venous stasis I87.8 ; Bronchitis J40 ; Other proteinuria R80.8 ; Chronic pain syndrome G89.4 and BMI 50.0-59.9, adult Z68.43 [place] [address] 59666- 1311 May, Chronic pain syndrome G89.4 [place] [address] 11385- 9371 Apr, Venous stasis I87.8 [place] [address] [place] [address]- 9893 Apr, [facility] [id number] [place] [address] 26237- 9052 Apr, Chronic pain syndrome G89.4 [facility] [id number] [place] [address] 58992- 7009 Apr, Localized edema R60.0 and Other proteinuria R80.8 [facility] [id number] [place] [address] 63515- 5020 Apr, Chronic pain syndrome G89.4 [facility] [id number] [place] [address] 23676- 1355 Mar, Chronic pain syndrome G89.4 [facility] [id number] [place] [address] 13553- 1329 Mar, Chronic pain syndrome G89.4 [facility] [id number] [place] [address] 92557- 0307 February, Low back pain M54.5 ; Other chronic pain G89.29 ; Arthritis M19.90 and Drug-induced constipation K59.03 [facility] [id number] [place] [address] 64753- 5983 February, [facility] [id number] [place] [address] 73359- 5937 February, Chronic pain syndrome G89.4 [facility] [id number] [place] [address] 15637- 3396 February, Chronic pain syndrome G89.4 [facility] [id number] [place] [address] 30368- 9946 February, [facility] [id number] [place] [address] 39018- 3983 Jan, Chronic pain syndrome G89.4 [facility] [id number] [place] [address] 90930- 6779 Dec, [facility] [address] [address]- 4882 Dec, Chronic pain syndrome G89.4 ; Arthritis M19.90 ; Chronic obstructive pulmonary disease, unspecified COPD type J44.9 and Labile hypertension R09.89 [facility] [address] [address]- 6147 Dec, Chronic pain syndrome G89.4 [facility] [address] [address]- 4721 Dec, [facility] [address] [address]- 6444 Nov, [facility] [id number] [address]- 6701 Nov, Chronic pain syndrome G89.4 [facility] [address] [address]- 4443 Oct, Chronic pain syndrome G89.4 [facility] [address] [address]- 7295 Oct, Chronic pain syndrome G89.4 [facility] [address] [address]- 8710 Oct, Chronic pain syndrome G89.4 [facility] [address] [address]- 7460 Oct, Chronic pain syndrome G89.4 ; Pain in right hip M25.551 ; Pain in left hip M25.552 and Chronic obstructive pulmonary disease, unspecified COPD type J44.9 [facility] [address] [address]- 0876 Sep, [facility] [address] [address]- 6724 Jun, [facility] [address] [address]- 0216 Jun, IMMUNIZATIONS No Known Immunizations SOCIAL HISTORY Never Assessed REASON FOR VISIT PLAN OF CARE VITAL SIGNS MEDICATIONS Unknown [...]
--- OUTSIDE RECORDS SUMMARY | 2018-10-23 17:43 | XMS REPORT ---
Author Author OLEGARIO ROSENTHAL Organization [facility] Address [address] [place] [address] Care Team Providers Care Land Checker Name Role Phone OLEGARIO ROSENTHAL Unavailable PROBLEMS Type Condition ICD9-CM Code [id number] Code Onset Dates Condition Status SNOMED Code Problem Pain in left hip M25.552 Active 16003290 Problem Chronic pain syndrome G89.4 Active 301147152 Problem Pain in right hip M25.551 Active 14391724 Problem Venous stasis I87.8 Active 82273198 Problem Other proteinuria R80.8 Active 30495717 Problem Arthritis M19.90 Active 5960213 Problem Chronic obstructive pulmonary disease, unspecified COPD type J44.9 Active 46214622 Problem Low back pain M54.5 Active 326187178 Problem Other chronic pain G89.29 Active 47591416 ALLERGIES Substance Reaction Event Type Date Status Codeine Sulfate hives Drug Allergy Apr, Active ENCOUNTERS Encounter Location Date Diagnosis [place] [id number] [place] [address] 83148- 2717 Jun, [place] [id number] [place] [address] 26645- 8510 Jun, [facility] [id number] [place] [address] 28317- 4829 May, Venous stasis I87.8 ; Bronchitis J40 ; Other proteinuria R80.8 ; Chronic pain syndrome G89.4 and BMI 50.0-59.9, adult Z68.43 [facility] [id number] [place] [address] 46514- 5769 May, Chronic pain syndrome G89.4 [facility] [id number] [place] [address] 89446- 0846 Apr, Venous stasis I87.8 [facility] [id number] [place] [address] 28552- 3982 Apr, [facility] [id number] [place] [address] 18776- 1418 Apr, Chronic pain syndrome G89.4 [facility] [id number] [place] [address] 31404- 8056 Apr, Localized edema R60.0 and Other proteinuria R80.8 [facility] [id number] [place] [address] 57912- 6871 Apr, Chronic pain syndrome G89.4 [facility] [id number] [place] [address] 00674- 8024 Mar, Chronic pain syndrome G89.4 [facility] [id number] [place] [address] 00127- 0708 Mar, Chronic pain syndrome G89.4 [facility] [id number] [place] [address] 52397- 1286 February, Low back pain M54.5 ; Other chronic pain G89.29 ; Arthritis M19.90 and Drug-induced constipation K59.03 [facility] [id number] [place] [address] 43429- 4167 February, [facility] [id number] [place] [address] 28658- 7415 February, Chronic pain syndrome G89.4 [facility] [id number] [place] [address] 76191- 2543 February, Chronic pain syndrome G89.4 [facility] [id number] [place] [address] 10292- 0070 February, [facility] [id number] [place] [address] 78649- 3816 Jan, Chronic pain syndrome G89.4 [facility] [id number] [place] [address] 07900- 6247 Dec, [facility] [address] [address] 8084 Dec, Chronic pain syndrome G89.4 ; Arthritis M19.90 ; Chronic obstructive pulmonary disease, unspecified COPD type J44.9 and Labile hypertension R09.89 [facility] [address] [address]- 9366 Dec, Chronic pain syndrome G89.4 [facility] [id number] [address]- 2706 Dec, [facility] [id number] [place] [address] 84033- 4676 Nov, [facility] [id number] [place] [address] 35110- 5136 Nov, Chronic pain syndrome G89.4 [facility] [id number] [place] [address] 07687- 4506 Oct, Chronic pain syndrome G89.4 [facility] [address] [address]- 1446 Oct, Chronic pain syndrome G89.4 [facility] [id number] [place] [address] 82289- 1516 Oct, Chronic pain syndrome G89.4 [facility] [address] [address]- 6909 Oct, Chronic pain syndrome G89.4 ; Pain in right hip M25.551 ; Pain in left hip M25.552 and Chronic obstructive pulmonary disease, unspecified COPD type J44.9 [facility] [id number] [address]- 2416 Sep, [facility] [id number] [address]- 0166 Jun, [facility] [id number] [place] [address] 50627- 2417 Jun, IMMUNIZATIONS No Known Immunizations SOCIAL HISTORY Never Assessed REASON FOR VISIT Leg swelling Pt c/o bilateral leg and feet swelling for 2 weeks, he is taking lasix and has cut back on table salt VALENCIA Hernandez PLAN OF CARE Activity Details Follow Up Routine appt Reason: Pending Test UA LONG DIP (IN HOUSE) VITAL SIGNS Height 68 in 2018-05-07 Temperature 97.8 degrees Fahrenheit 2018-05-07 Heart Rate 92 bpm 2018-05-07 Respiratory Rate 18 2018-05-07 Blood pressure systolic 142 mmHg 2018-05-07 Blood pressure diastolic 84 mmHg 2018-05-07 MEDICATIONS Medication Instructions Dosage Frequency Start Date End Date Duration Status Flexeril 10 mg by oral route 3 times a day 1 tablet as needed 8h 30 days Active Ventolin HFA 108 (90 Base) MCG/ACT Inhalation every 6 hrs 2 puffs as needed 6h Active Nitroglycerin 0.4 MG Active Cyclobenzaprine HCl 10 MG TAKE ONE (1) TABLET BY MOUTH THREE (3) TIMES DAILY NEEDED 30 Not-Taking MiraLax - Orally Once a day 1 capful 24h February, Active Naproxen 500 mg Orally 2 times a day 1 tablet with food or milk as needed 12h 27 Dec, 2017 Active Lasix 20 mg Orally Once a dayPRN for sweilling 1 tablet February, 30 day(s) Active Ambien 10 mg Orally Once a day 1 tablet at bedtime as needed 24h 28 days Active Morphine Sulfate ER 100 mg Orally 2 times a day 2 tablet 12h 18 Mar, 2018 28 days Active RESULTS No Results PROCEDURES Procedure Date Ordered Result Body Site URINALYSIS, AUTO, W/O SCOPE May 07, 2018 LAB [facility]ILL[facility] May 07, 2018 [facility] VISIT ESTABLISHED PATIENT May 07, 2018 MARTIN, ROUTINE* May 07, 2018 INSTRUCTIONS MEDICATIONS ADMINISTERED No Known Medications MEDICAL (GENERAL) HISTORY Type Description Date Medical History avascular necrosis Medical History pacemaker 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
--- OUTSIDE RECORDS SUMMARY | 2018-10-23 17:43 | XMS REPORT ---
Author Author OLEGARIO ROSENTHAL Organization [facility] Address [address] [place] [address] Care Team Providers Care Operational Meteorologist Name Role Phone OLEGARIO ROSENTHAL Unavailable PROBLEMS Type Condition ICD9-CM Code [id number] Code Onset Dates Condition Status SNOMED Code Problem Pain in left hip M25.552 Active 23068147 Problem Chronic pain syndrome G89.4 Active 139961183 Problem Pain in right hip M25.551 Active 37101844 Problem Venous stasis I87.8 Active 75309827 Problem Other proteinuria R80.8 Active 54076469 Problem Arthritis M19.90 Active 4681504 Problem Chronic obstructive pulmonary disease, unspecified COPD type J44.9 Active 13447357 Problem Low back pain M54.5 Active 664396070 Problem Other chronic pain G89.29 Active 18909442 ALLERGIES No Information ENCOUNTERS Encounter Location Date Diagnosis [place] [address] [address]- 3860 Jun, [place] [id number] [place] [address] 76492- 7999 Jun, Chronic pain syndrome G89.4 [place] [id number] [place] [address] 40998- 0321 Jun, Chronic pain syndrome G89.4 [place] [id number] [place] [address] 07334- 8951 05 Jun, 2018 [place] [address] 87371- 2536 May, Venous stasis I87.8 ; Bronchitis J40 ; Other proteinuria R80.8 ; Chronic pain syndrome G89.4 and BMI 50.0-59.9, adult Z68.43 [place] [address] [place] [address]- 2111 May, Chronic pain syndrome G89.4 [facility] [id number] [place] [address] 81268- 5308 Apr, Venous stasis I87.8 [facility] [id number] [place] [address] 90462- 0025 Apr, [facility] [id number] [place] [address] 56915- 5736 Apr, Chronic pain syndrome G89.4 [facility] [id number] [place] [address] 50696- 4570 Apr, Localized edema R60.0 and Other proteinuria R80.8 [facility] [id number] [place] [address] 73668- 9170 Apr, Chronic pain syndrome G89.4 [facility] [id number] [place] [address] 43763- 6040 Mar, Chronic pain syndrome G89.4 [facility] [id number] [place] [address] 01644- 4530 Mar, Chronic pain syndrome G89.4 [facility] [id number] [place] [address] 33156- 3593 February, Low back pain M54.5 ; Other chronic pain G89.29 ; Arthritis M19.90 and Drug-induced constipation K59.03 [facility] [id number] [place] [address] 59173- 0276 February, [facility] [id number] [place] [address] 06808- 3728 February, Chronic pain syndrome G89.4 [facility] [id number] [place] [address] 63579- 9274 February, Chronic pain syndrome G89.4 [facility] [id number] [place] [address] 69709- 6679 February, [facility] [address] [address]- 6207 Jan, Chronic pain syndrome G89.4 [facility] [id number] [place] [address] 73999- 3456 Dec, [facility] [id number] [place] [address] 99603- 9856 Dec, Chronic pain syndrome G89.4 ; Arthritis M19.90 ; Chronic obstructive pulmonary disease, unspecified COPD type J44.9 and Labile hypertension R09.89 [facility] [id number] [place] [address] 79902- 0116 Dec, Chronic pain syndrome G89.4 [facility] [id number] [place] [address] 00602- 6886 Dec, [facility] [id number] [place] [address] 11757- 7206 Nov, [facility] [id number] [place] [address] 80161- 4445 Nov, Chronic pain syndrome G89.4 [facility] [id number] [place] [address] 89462- 0546 Oct, Chronic pain syndrome G89.4 [facility] [address] [address]- 8826 Oct, Chronic pain syndrome G89.4 [facility] [address] [address] 2546 Oct, Chronic pain syndrome G89.4 [facility] [address] [address]- 0376 Oct, Chronic pain syndrome G89.4 ; Pain in right hip M25.551 ; Pain in left hip M25.552 and Chronic obstructive pulmonary disease, unspecified COPD type J44.9 [facility] [address] [address]- 4586 Sep, [facility] [address] [facility] [id number] [place] [address]- 8455 Jun, [facility] [address] [facility] [id number] [place] [address]- 3466 Jun, IMMUNIZATIONS No Known Immunizations SOCIAL HISTORY Never Assessed REASON FOR VISIT Controlled Med Refill 06/08 PLAN OF CARE VITAL SIGNS MEDICATIONS Medication Instructions Dosage Frequency Start Date End Date Duration Status Morphine Sulfate ER 100 mg Orally 2 times a day 2 tablet 12h 14 May, 2018 28 days Active RESULTS No Results [...]
--- OUTSIDE RECORDS SUMMARY | 2018-10-23 17:44 | XMS REPORT ---
Author Author OLEGARIO ROSENTHAL Organization [facility] Address [address] [place] [address] Care Team Providers Care Reliability Specialist Name Role Phone OLEGARIO ROSENTHAL Unavailable PROBLEMS Type Condition ICD9-CM Code FUN60-KR Code Onset Dates Condition Status SNOMED Code Problem Pain in left hip M25.552 Active 93428462 Problem Chronic pain syndrome G89.4 Active 120539894 Problem Pain in right hip M25.551 Active 44158834 Problem Venous stasis I87.8 Active 03237978 Problem Other proteinuria R80.8 Active 32152879 Problem Arthritis M19.90 Active 4887083 Problem Chronic obstructive pulmonary disease, unspecified COPD type J44.9 Active 70760845 Problem Low back pain M54.5 Active 102859989 Problem Other chronic pain G89.29 Active 78468508 ALLERGIES No Information ENCOUNTERS Encounter Location Date Diagnosis [place] [address] 28730- 3685 Jun, [place] [address] 42838- 5895 Jun, [place] [id number] [place] [address] 75682- 6748 May, Venous stasis I87.8 ; Bronchitis J40 ; Other proteinuria R80.8 ; Chronic pain syndrome G89.4 and BMI 50.0-59.9, adult Z68.43 [place] [address] 52544- 3345 May, Chronic pain syndrome G89.4 [place] [address] 95569- 5371 Apr, Venous stasis I87.8 [place] [address] [place] [address]- 3055 Apr, [facility] [id number] [place] [address] 44477- 9120 Apr, Chronic pain syndrome G89.4 [facility] [id number] [place] [address] 54198- 5830 Apr, Localized edema R60.0 and Other proteinuria R80.8 [facility] [id number] [place] [address] 05545- 4251 Apr, Chronic pain syndrome G89.4 [facility] [id number] [place] [address] 44209- 2931 Mar, Chronic pain syndrome G89.4 [facility] [id number] [place] [address] 24715- 2803 Mar, Chronic pain syndrome G89.4 [facility] [id number] [place] [address] 25407- 0592 February, Low back pain M54.5 ; Other chronic pain G89.29 ; Arthritis M19.90 and Drug-induced constipation K59.03 [facility] [id number] [place] [address] 84350- 5759 February, [facility] [id number] [place] [address] 94159- 2029 February, Chronic pain syndrome G89.4 [facility] [id number] [place] [address] 56453- 5124 February, Chronic pain syndrome G89.4 [facility] [id number] [place] [address] 06399- 2868 February, [facility] [id number] [place] [address] 79279- 6261 Jan, Chronic pain syndrome G89.4 [facility] [id number] [place] [address] 20747- 0651 Dec, [facility] [address] [address]- 3980 Dec, Chronic pain syndrome G89.4 ; Arthritis M19.90 ; Chronic obstructive pulmonary disease, unspecified COPD type J44.9 and Labile hypertension R09.89 [facility] [id number] [address]- 2417 Dec, Chronic pain syndrome G89.4 [facility] [id number] [address]- 3626 Dec, [facility] [id number] [address]- 4941 Nov, [facility] [id number] [place] [address] 92088- 3655 Nov, Chronic pain syndrome G89.4 [facility] [id number] [address]- 7338 Oct, Chronic pain syndrome G89.4 [facility] [id number] [address]- 9421 Oct, Chronic pain syndrome G89.4 [facility] [id number] [address]- 0072 Oct, Chronic pain syndrome G89.4 [facility] [address] [address]- 2719 Oct, Chronic pain syndrome G89.4 ; Pain in right hip M25.551 ; Pain in left hip M25.552 and Chronic obstructive pulmonary disease, unspecified COPD type J44.9 [facility] [id number] [address]- 7594 Sep, [facility] [id number] [address]- 0473 Jun, [facility] [id number] [address]- 5513 Jun, IMMUNIZATIONS No Known Immunizations SOCIAL HISTORY Never Assessed REASON FOR VISIT Morphine due 05/11 PLAN OF CARE VITAL SIGNS MEDICATIONS Medication Instructions Dosage Frequency Start Date End Date Duration Status Morphine Sulfate ER 100 mg Orally 2 times a day 2 tablet 12h Apr, 28 days Active RESULTS No Results PROCEDURES [...]
--- NOTE | 2018-10-23 18:04 | NUR ---
PT STATES NO CHANGE IN MEDS
[2018-10-23] MEDS ORDERED: HYDROcodone/APAP 10 MG/325 MG (LORTAB) TAB PO ONE (18:15)
--- NOTE | 2018-10-23 18:16 | ED Integumentary General ---
General Chief Complaint: Skin/Wound Problems Stated Complaint: HIP PAIN Nursing Triage Note: PT ARRIVED PER EMS PT HAS WOUND ON R HIP THAT IS DRAINING BLOOD, PT STATES HAD FALLEN 2 WEEKS AGO AND HAS OPEN AREA TO R HIP, WAS SEEN BY WOUND CARE AND HAS BEEN NONCOMPLIANT W WOUND CARE. STATES STARTED HAVING MORE BLEEDING THIS AFTERNOON. PT RATES PAIN 7/10 Source: patient, family Exam Limitations: no limitations History of Present Illness Date Seen by Provider: Oct 23, 2018 Time Seen by Provider: 18:02 Initial Comments Patient presents to ER by private conveyance with chief complaint that he has a chronic wound he's been working with wound care that open up about 10 days ago on his right hip again. Been draining serosanguineous drainage. He's been cleaning it with saline and changing the dressing twice a day. He supposed be following up with wound care but he missed his appointment on because wound care doctor was sick. He's been using 100 mg 2 tablets twice a day of morphine for pain and Celebrex. He has a history of avascular necrosis and multiple hip surgery revisions by orthopedics at . Right now his prostheses are removed and he just has his pelvis wired together. He's not had any fevers chills nausea vomiting chest pain right now 7 out of 10. He is wheelchair bound. He has a history of pacemaker that stopped working appropriately several weeks ago and he was post to follow-up with Dr. Trevino, cardiology but is not make appointment yet. He is not having any chest pain palpitations weakness, nausea, Or abdominal pain. He's been told that he is borderline diabetic but he is not on any medicines for this. He states he is on an antibiotic for the wound but he does not know what it is and was prescribed by Dr. Live. Allergies and Home Medications Allergies Coded Allergies: codeine (Verified Allergy, Mild, HIVES...TAKES OXYCODONE & MS CONTIN AT HOME, 07/29/07) streptokinase (Verified Allergy, Unknown, 07/29/07) Home Medications Albuterol Sulfate 18 Gm Hfa.aer.ad, 2 PUFF INH Q4H PRN for SHORTNESS OF BREATH, (Reported) Amoxicillin/Potassium Clav 1 Each Tablet, 1 EACH PO BID Prescribed by: BRYANNA VALENTIN on 06/24/18 1126 Cephalexin 500 Mg Capsule, 500 MG PO TID Prescribed by: LOWELL STEVENS on 09/28/18 1211 Cyclobenzaprine HCl 10 Mg Tablet, 10 MG PO TID, (Reported) Furosemide 40 Mg Tablet, 40 MG PO DAILY, (Reported) Magnesium Hydroxide 400 Mg/5 Ml Oral.susp, 30 ML PO DAILY PRN for CONSTIPATION- 7TH LINE, (Reported) Morphine Sulfate 100 Mg Tablet.er, 200 MG PO BID, (Reported) TAKES 2 (100MG) TABLETS Naproxen 500 Mg Tablet, 500 MG PO BID PRN for PAIN-MILD, (Reported) Nitroglycerin 0.4 Mg Tab.subl, 0.4 MG SL UD PRN for CHEST PAIN, (Reported) Polyethylene Glycol 3350 255 Gm Powder, 17 GM PO HS PRN for CONSTIPATION-2ND LINE, (Reported) Zolpidem Tartrate 10 Mg Tablet, 10 MG PO HS, (Reported) Patient Home Medication List Home Medication List Reviewed: Yes Review of Systems Review of Systems Constitutional: No chills, No diaphoresis, No fever, No malaise EENTM: No ear discharge, No ear pain Respiratory: No cough, No short of breath Cardiovascular: No Hx of Intervention, No vascular heart diseas Gastrointestinal: No abdominal pain, No constipation, No diarrhea, No nausea Genitourinary: No discharge, No dysuria Past Vegrmgh-Okttjb-Iojufz Hx Patient Social History Alcohol Use: Denies Use Number of Drinks Today: BB Alcohol Beverage of Choice: [place] Recreational Drug Use: Yes 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 Smoking Status: Former Smoker Type Used: Cigarettes Former Smoker, Quit: May 30, 2014 2nd Hand Smoke Exposure: Yes Recent Foreign Travel: No Contact w/Someone Who Travel: No Recent Infectious Disease Expo: No Recent Hopitalizations: Yes (WOUND SEEN IN ED) Immunizations Up To Date Tetanus Booster (TDap): Unknown PED Vaccines UTD: No Date of Pneumonia Vaccine: Nov 08, 2012 Date of Influenza Vaccine: Jul 26, 2016 Seasonal Allergies Seasonal Allergies: No Past Medical History Surgeries: Yes Abdominal, Appendectomy, Cardiac, Defibrillator, Joint Replacement, Orthopedic, Pacemaker Respiratory: Yes (PT INTUBATED IN PAST DUE TO OVERDOSES/ETOH ) Asthma Currently Using CPAP: No Currently Using BIPAP: No Cardiac: Yes (PACEMAKER, CARDIAC ARREST, SELF - REPORTED MT X 8; CHF) Chronic Edema/Swelling, Coronary Artery Disease, Heart Attack, Hypertension, Irregular Heartbeat Neurological: Yes Neuropathy Reproductive Disorders: No Sexually Transmitted Disease: No HIV/AIDS: No Genitourinary: Yes (PT SELF-CATH'S ) Neurogenic Bladder Gastrointestinal: Yes Abdominal Hernia Musculoskeletal: Yes Arthritis, Chronic Back Pain, Fractures Endocrine: Yes (OBESITY) Diabetes, Insulin dep HEENT: Yes Dysphagia Loss of Vision: Denies Hearing Impairment: Hard of Hearing Cancer: No Psychosocial: Yes (ALCOHOL/POLYSUBSTANCE ABUSE/OVERDOSES-INTUBATED 2012, INCARCERATIONS) Suicide Attempts, Depression Integumentary: Yes (CELLULITIS OF LEGS) Recent Skin Changes Blood Disorders: No Adverse Reaction/Blood Tranf: Yes (HIGH FEVER AND CHILLS) Family Medical History COPD Diabetes mellitus Physical Exam Vital Signs Vital Signs - First Documented 10/23/18 17:31 Temp 97.1 Pulse 88 Resp 18 B/P (MAP) 131/51 (77) Pulse Ox 97 Capillary Refill : Less Than 3 Seconds General Appearance: WD/WN, no apparent distress HEENT: PERRL/EOMI, pharynx normal Neck: full range of motion, normal inspection Cardiovascular: normal peripheral pulses, regular rate, rhythm Respiratory: no respiratory distress, no accessory muscle use Gastrointestinal: non tender, soft Extremities: other (Scars over right hip and limited range of motion secondary to know if joint) Neurologic/Psychiatric: alert, normal mood/affect, oriented x 3 Skin: other (4 cm long portion of the previous surgical scar is opened up with beefy-red soft tissue underneath exposed and minimal devitalized tissue seen. No period of months.) Progress/Results/Core Measures Results/Orders Lab Results Laboratory Tests Test 10/23/18 18:33 10/23/18 18:45 Range/Units White Blood Count 9.1 4.3-11.0 10^3/uL Red Blood Count 4.30 L 4.35-5.85 10^6/uL Hemoglobin 13.0 L 13.3-17.7 G/DL Hematocrit 39 L 40-54 % Mean Corpuscular Volume 90 80-99 FL Mean Corpuscular Hemoglobin 30 25-34 PG Mean Corpuscular Hemoglobin Concent 34 32-36 G/DL Red Cell Distribution Width 14.5 10.0-14.5 % Platelet Count 356 130-400 10^3/uL Mean Platelet Volume 10.5 H 7.4-10.4 FL Neutrophils (%) (Auto) 60 42-75 % Lymphocytes (%) (Auto) 29 12-44 % Monocytes (%) (Auto) 9 0-12 % Eosinophils (%) (Auto) 3 0-10 % Basophils (%) (Auto) 1 0-10 % Neutrophils # (Auto) 5.4 1.8-7.8 X 10^3 Lymphocytes # (Auto) 2.6 1.0-4.0 X 10^3 Monocytes # (Auto) 0.8 0.0-1.0 X 10^3 Eosinophils # (Auto) 0.2 0.0-0.3 10^3/uL Basophils # (Auto) 0.1 0.0-0.1 10^3/uL Sodium Level 142 135-145 MMOL/L Potassium Level 4.2 3.6-5.0 MMOL/L Chloride Level 105 98-107 MMOL/L Carbon Dioxide Level 23 21-32 MMOL/L Anion Gap 14 5-14 MMOL/L Blood Urea Nitrogen 14 7-18 MG/DL Creatinine 0.97 0.60-1.30 MG/DL Estimat Glomerular Filtration Rate > 60 BUN/Creatinine Ratio 14 Glucose Level 83 70-105 MG/DL Calcium Level 9.4 8.5-10.1 MG/DL Corrected Calcium 9.6 8.5-10.1 MG/DL Total Bilirubin 0.4 0.1-1.0 MG/DL Aspartate Amino Transf (AST/SGOT) 18 5-34 U/L Alanine Aminotransferase (ALT/SGPT) 9 0-55 U/L Alkaline Phosphatase 117 40-136 U/L Total Protein 7.2 6.4-8.2 GM/DL Albumin 3.8 3.2-4.5 GM/DL My Orders Orders - TONJA RIGGS Cbc With Automated Diff (10/23/18 18:08) Comprehensive Metabolic Panel (10/23/18 18:08) Hydrocodone/Apap 10/325 Tablet (Lortab 1 (10/23/18 18:15) Hip, Right, 2 Views (10/23/18 18:22) Medications Given in ED Current Medications Medications Dose Ordered Sig/Carl Route Start Time Stop Time Status Last Admin Dose Admin Acetaminophen/ Hydrocodone Bitart 1 ea ONCE ONCE PO 10/23/18 18:15 10/23/18 18:16 DC 10/23/18 18:22 1 EA Vital Signs/I&O 10/23/18 17:31 Temp 97.1 Pulse 88 Resp 18 B/P (MAP) 131/51 (77) Pulse Ox 97 Blood Pressure Mean: 77 Progress Progress Note : Time: 18:16 Progress Note Plain films of the right hip previous joint, basic labs. His vitals are aseptic. We'll give him some [place] 10/325 for his present pain. So far seems like his cleaning the wound with saline and changing twice a day is doing pretty well. The skin around the wound is mildly erythematous but not indurated. Could be early onset cellulitis around the open wound. Last wound care note he was doing Dakin's dressings and had just finished Keflex and started doxycycline. Wound tissue had some debridement done that day. Described as less thick slough. Seen by Estevan Pereira 10/13/18. 1930: At this time there is no slough and probably no need for more sober and advised him to stop doing the wet-to-dry's and just do dry dressings and clean it with saline and Dakin's and follow-up at his next appointment on . Lab work looks okay. Vital signs are aseptic. Diagnostic Imaging Diagonstic Imaging: Xray Plain Films/CT/US/NM/MRI: hip Comments [facility] [place], [place] NAME: NI [facility] REC#: [id number] PT STATUS: REG ER : 1950 PHYSICIAN: TONJA RIGGS MD ADMIT DATE: 10/23/18/ER Draft Date of Exam:10/23/18 HIP, RIGHT, 2 VIEWS INDICATION: Wound on right hip, draining blood. Fallen 2 weeks ago. TECHNIQUE: 2 views of the right hip, 7:18 PM. CORRELATION STUDY: 09/28/2018 FINDINGS: Markedly abnormal appearance about the right hip. There is resection of the femoral head and neck. Cerclage wires over the proximal femoral shaft. Deformity about the acetabulum. Large ossification adjacent to the right hip and iliac bone appears unchanged. There does, however, appear to be suggestion of slight progressive sclerosis and erosive appearance about the residual femoral stump raising concern for potential bony destruction. No abnormal soft tissue gas collections. Additional thin, wire-like densities adjacent to the displaced bone fragment in the right hip. IMPRESSION: 1. Postsurgical changes involving the resection of the right proximal femur. There does appear to be slight sclerosis and perhaps erosive change about the residual femoral stump. Possibility of underlying infectious changes would be difficult to exclude versus simply reparative changes. There is otherwise stable appearance suggested. Dictated on workstation # [id number] Dict: 10/23/18 1856 Trans: 10/23/18 1904 [facility] [id number] Interpreted by: SAMIR CASAREZ DO Electronically signed by: Reviewed: Reviewed by Me Departure Impression Primary Impression: Chronic wound of extremity Disposition: HOME, SELF-CARE Condition: Stable Departure-Patient Inst. Decision time for Depature: 19:32 Referrals: OLEGARIO ROSENTHAL MD (PCP) Primary Care Physician [facility] (Family) Primary Care Physician Patient Instructions: Wound Care (DC) Add. Discharge Instructions: Keep the wound clean and flushed with saline White down with Dakin's and then just dressed with gauze and an ABD pad if necessary for excessive drainage. If you begin to experience pain it's intolerable or fevers and chills or nausea and vomiting then you should return to the ER. Continue taking her doxycycline. Follow-up with wound care next week. All discharge instructions reviewed with patient and/or family. Voiced understanding. Scripts Hydrocodone Bit/Acetaminophen (Hydrocodone/Acetaminophen 5/325mg Tablet) 1 Tab Tab 1-2 EACH PO Q6H for PAIN-MODERATE MDD 10 for 5 Days, #18 TAB 0 Refills Prov: TONJA RIGGS 10/23/18 TONJA RIGGS Oct 23, 2018 18:16
[2018-10-23 18:42] LABS: BASOPHILS # (AUTO) 0.1 10^3/uL (0.0-0.1); BASOPHILS % (AUTO) 1 % (0-10); EOSINOPHILS # (AUTO) 0.2 10^3/uL (0.0-0.3); EOSINOPHILS % (AUTO) 3 % (0-10); HEMATOCRIT 39 % (40-54); LYMPHOCYTES # (AUTO) 2.6 X 10^3 (1.0-4.0); LYMPHOCYTES % (AUTO) 29 % (12-44); MEAN CORPUSCULAR HEMOGLOBIN 30 PG (25-34); MEAN CORPUSCULAR HGB CONC 34 G/DL (32-36); MEAN CORPUSCULAR VOLUME 90 FL (80-99); MEAN PLATELET VOLUME 10.5 FL (7.4-10.4); MONOCYTES # (AUTO) 0.8 X 10^3 (0.0-1.0); MONOCYTES % (AUTO) 9 % (0-12); NEUTROPHILS # (AUTO) 5.4 X 10^3 (1.8-7.8); NEUTROPHILS % (AUTO) 60 % (42-75); PLATELET COUNT 356 10^3/uL (130-400); RED CELL DISTRIBUTION WIDTH 14.5 % (10.0-14.5); WHITE BLOOD COUNT 9.1 10^3/uL (4.3-11.0)
--- NOTE | 2018-10-23 19:04 | Diagnostic Imaging Report ---
INDICATION: Wound on right hip, draining blood. Fallen 2 weeks ago. TECHNIQUE: 2 views of the right hip, 7:18 PM. CORRELATION STUDY: 09/28/2018 FINDINGS: Markedly abnormal appearance about the right hip. There is resection of the femoral head and neck. Cerclage wires over the proximal femoral shaft. Deformity about the acetabulum. Large ossification adjacent to the right hip and iliac bone appears unchanged. There does, however, appear to be suggestion of slight progressive sclerosis and erosive appearance about the residual femoral stump raising concern for potential bony destruction. No abnormal soft tissue gas collections. Additional thin, wire-like densities adjacent to the displaced bone fragment in the right hip. IMPRESSION: 1. Postsurgical changes involving the resection of the right proximal femur. There does appear to be slight sclerosis and perhaps erosive change about the residual femoral stump. Possibility of underlying infectious changes would be difficult to exclude versus simply reparative changes. There is otherwise stable appearance suggested. Dictated by: Dictated on workstation # [id number]
[2018-10-23 19:09] LABS: ALANINE AMINOTRANSFERASE 9 U/L (0-55); ALBUMIN 3.8 GM/DL (3.2-4.5); ALKALINE PHOSPHATASE 117 U/L (40-136); BILIRUBIN,TOTAL 0.4 MG/DL (0.1-1.0); BUN/CREATININE RATIO 14; CALCIUM 9.4 MG/DL (8.5-10.1); CARBON DIOXIDE 23 MMOL/L (21-32); CHLORIDE 105 MMOL/L (98-107); CREATININE SERUM 0.97 MG/DL (0.60-1.30); GFR ESTIMATED > 60; GLUCOSE 83 MG/DL (70-105); POTASSIUM 4.2 MMOL/L (3.6-5.0); SODIUM 142 MMOL/L (135-145); TOTAL PROTEIN 7.2 GM/DL (6.4-8.2)
[2018-10-23] MEDS ORDERED: ACHD5005 PO (19:34)
--- NOTE | 2018-10-23 19:50 | NUR ---
DRESSING TO RT HIP BY THIS RN. SITE IRRIGATED W/ NS ET DRESSED W/ 4X4'S, ABD PAD ET 3" FOAM TAPE. PT TOLERATED WELL
[2018-10-23 19:53] VITALS: BP 129/60
--- NOTE | 2018-10-23 19:53 | NUR ---
PT DISCHARGED TO HOME W/ INSTRUCTIONS. PT TO CONTINUE HOME MEDS DIRECTED, MONITOR HIS WOUND, CHANGE THE DRESSINGS DIRECTED BY DR RIGGS, F/U W/ PCP ET RETURN IF SYMPTOMS CHANGE OR GET WORSE. PT VOICED UNDERSTANDING, NO QUESTIONS.
== END 2018-10-23 19:53 | disposition home or self-care (01) ==
LOC: EDUNIT# 17:31 → ER 17:32
DX: E11.621 Type 2 diabetes mellitus with foot ulcer (principal); L97.819 Non-pressure chronic ulcer of other part of right lower leg with unspecified severity; J45.909 Unspecified asthma, uncomplicated; I25.10 Atherosclerotic heart disease of native coronary artery without angina pectoris; I25.2 Old myocardial infarction; I11.0 Hypertensive heart disease with heart failure; I50.9 Heart failure, unspecified; E66.9 Obesity, unspecified; E11.40 Type 2 diabetes mellitus with diabetic neuropathy, unspecified; F32.9 Major depressive disorder, single episode, unspecified; Z91.5 Personal history of self-harm; Z87.19 Personal history of other diseases of the digestive system; Z88.5 Allergy status to narcotic agent; Z88.8 Allergy status to other drugs, medicaments and biological substances; Z79.51 Long term (current) use of inhaled steroids; Z98.890 Other specified postprocedural states; Z87.891 Personal history of nicotine dependence; Z90.49 Acquired absence of other specified parts of digestive tract; Z95.810 Presence of automatic (implantable) cardiac defibrillator
CPT/HCPCS: 36415; 73502; 80053; 85025

== ENCOUNTER → 2018-11-04 | Outpatient (CLI) | payer MEDICARE, MEDICAID ==
[~2018-11-04] MED LIST changes: +ACHD5005 PO
== END ==
LOC: WOUNDCARE 10:30
PROVIDERS: ATTEND Surgery
DX: T81.31XA Disruption of external operation (surgical) wound, not elsewhere classified, initial encounter (principal); L98.492 Non-pressure chronic ulcer of skin of other sites with fat layer exposed; L03.115 Cellulitis of right lower limb
CPT/HCPCS: 97605

== ENCOUNTER → 2018-11-11 | Outpatient (CLI) | payer MEDICARE, MEDICAID | LOC: WOUNDCARE 10:37 | PROVIDERS: ATTEND Nurse Practitioner | DX: L98.492 Non-pressure chronic ulcer of skin of other sites with fat layer exposed (principal); L03.115 Cellulitis of right lower limb; T81.31XA Disruption of external operation (surgical) wound, not elsewhere classified, initial encounter | CPT/HCPCS: 11042; 97605 ==

== ENCOUNTER → 2018-11-25 | Outpatient (CLI) | payer MEDICARE, MEDICAID | LOC: WOUNDCARE 09:06 | PROVIDERS: ATTEND Nurse Practitioner | DX: L98.492 Non-pressure chronic ulcer of skin of other sites with fat layer exposed (principal); L03.115 Cellulitis of right lower limb; T81.31XA Disruption of external operation (surgical) wound, not elsewhere classified, initial encounter | CPT/HCPCS: 11042; 97605 ==

== ENCOUNTER → 2018-12-09 | Outpatient (CLI) | payer MEDICARE, MEDICAID | LOC: WOUNDCARE 11:05 | PROVIDERS: ATTEND Nurse Practitioner | DX: L98.492 Non-pressure chronic ulcer of skin of other sites with fat layer exposed (principal); L03.115 Cellulitis of right lower limb; T81.31XA Disruption of external operation (surgical) wound, not elsewhere classified, initial encounter | CPT/HCPCS: 11042; 87070; 87075; 87205; 97605 ==

== ENCOUNTER 2019-03-11 12:30 | Outpatient (CLI) | payer MEDICARE, MEDICAID ==
[~2019-03-11] VITALS: Ht 172.7 cm; Wt 83.2 kg
[2019-03-11] MEDS ORDERED: DOXY100C2 PO (13:25)
[2019-03-11] MEDS ORDERED: LISI-552 PO (13:25)
== END 2019-03-11 13:30 | disposition home or self-care (01) ==
LOC: PREOP 12:30
PROVIDERS: ATTEND Surgery
DX: Z01.818 Encounter for other preprocedural examination (principal)

== ENCOUNTER 2019-03-17 08:07 | Day surgery (SDC) | payer MEDICARE, MEDICAID ==
[~2019-03-17] VITALS: Ht 172.7 cm; Wt 83.2 kg
[2019-03-17] VITALS (12 sets, daily range): BP systolic 114–147; BP diastolic 54–73
[~2019-03-17 08:07] MED LIST changes: +DOXY100C2 PO
--- OUTSIDE RECORDS SUMMARY | 2019-03-17 08:11 | XMS REPORT | Clinical Summary ---
Author Author [facility] Organization [facility] Address Unknown Phone Unavailable Care Team Providers Care Hooker Laster Name Role Phone Traci Mota MD Unavailable Jonathan Beasley MD PCP Jaja Lujan MD Unavailable Skylar Stevens PA-C Unavailable Source Comments Some departments are not documenting in the electronic medical record. If you d o not see the information that you expected, contact Release of Information in merged with [facility] Information Management department at [phone] for further assistan ce in locating additional records.[facility] Allergies Comments Active Allergy Reactions Severity Noted [...] directed daily. Active Problems Problem Noted Date [place] [...] Taken Vital Sign Reading 11/23/2012 8:30 AM CAR PILOT Blood Pressure 147/78 11/23/2012 8:30 AM CAR PILOT Pulse 63 11/23/2012 8:30 AM CAR PILOT Temperature 36.8 C (98.3 F) - Respiratory Rate - 11/23/2012 8:30 AM CAR PILOT Oxygen Saturation 97% - Inhaled Oxygen - Concentration 11/19/2012 9:57 AM CAR PILOT Weight 86.2 kg (190 lb) 11/19/2012 9:57 AM CAR PILOT Height 172.7 cm (5' 8") 11/19/2012 9:57 AM CAR PILOT Body Mass Index 28.89 Plan of Treatment Health Maintenance Due Date Last Done Comments HEPATITIS C SCREENING 1950 PHYSICAL (COMPREHENSIVE) 1959 EXAM DTAP/TDAP VACCINES (1 - 1970 Tdap) COLORECTAL CANCER 2002 SCREENING SHINGLES RECOMBINANT 2002 VACCINE (1 of 2) ABDOMINAL AORTIC ANEURYSM 2017 SCREENING PNEUMONIA (PCV13/PPSV23) 2017 VACCINES (1 of 2 - PCV13) INFLUENZA VACCINE 07/26/2019 Implants Device Identifier Shelf Expiration Date Model / Serial / Lot Implanted Type Area Manufactur er Pacemaker Pacemaker Results Not on filefrom Last 3 Months Insurance Type Payer Benefit Subscriber ID Effective Phone Address Plan / Dates Group Medicare MEDICARE MEDICARE xxxxxxxxxx 1986-[place] PART A AND resent B Medicaid [place] 2006- [place], [place] Advance Directives Patient has advance care planning documents, and code status on file. For more i nformation, please contact: [facility] [address] [place] [address] Date Inactivated Comments Code Status Date Activated 11/23/2012 4:23 PM Full Code 11/19/2012 5:11 PM Provider has discussed Code Status No, discussion not w/Patient or Family? necessary based on Dx
[2019-03-17] MEDS ORDERED: LACTATED RINGERS 1,000 ML IV PRN (08:19)
[2019-03-17] MEDS ORDERED: ceFAZolin 2 GM/50 ML NS 50 ML IV ONE (08:30)
[2019-03-17] MEDS ORDERED: CATHETER FLUSH 10 ML SYR IV PRN (08:45)
--- NOTE | 2019-03-17 09:42 | Progress Note-Pre Operative ---
Pre-Operative Progress Note H&P Reviewed The H&P was reviewed, patient examined and no changes noted. Date Seen by Provider: March 17, 2019 Time Seen by Provider: 09:41 Date H&P Reviewed: March 17, 2019 Time H&P Reviewed: 09:41 Pre-Operative Diagnosis: complicated open right wound thigh KAVON WILDER DO March 17, 2019 09:42
[2019-03-17] MEDS ORDERED: fentaNYL INJECTION 100 MCG/2 ML AMP ONE (09:51)
[2019-03-17] MEDS ORDERED: MIDAZOLAM 2 MG/2 ML (VERSED) VIAL ONE (09:51)
[2019-03-17] MEDS ORDERED: DEXAMETHASONE 10 MG/ML (DECADRON) 1 ML VIAL ONE (10:56)
[2019-03-17] MEDS ORDERED: SEVOFLURANE (ULTANE) 15 ML INHAL SOLN ONE (11:17)
--- NOTE | 2019-03-17 11:27 | Progress Note-Post Operative ---
Post-Operative Progess Note Surgeon (s)/Director Of Rotc (s) Surgeon KAVON WILDER DO Director Of Rotc: na Pre-Operative Diagnosis complicated open right wound thigh Post-Operative Diagnosis same Procedure & Operative Findings Date of Procedure 03/17/19 Procedure Performed/Findings debridement right thigh 5x9x4 cm skin and subcutaneous tissue, sharp and cautery debridement. wound vac placement [id number] Anesthesia Type gen Estimated Blood Loss Estimated blood loss (mL): min Specimens/Packing Specimens Removed skin and subcutaneous tissue KAVON WILDER DO March 17, 2019 11:27
[2019-03-17] MEDS ORDERED: proPOfol 200 MG/20 ML (DIPRIVAN) VIAL IV ONE (11:31)
[2019-03-17] MEDS ORDERED: ONDANSETRON 4 MG/2 ML (SDV) Z0FRAN ONE (11:31)
[2019-03-17] MEDS ORDERED: LIDOCAINE PF 2% 5 ML (XYLOCAINE) VIAL ONE (11:31)
--- NOTE | 2019-03-17 11:31 | Discharge Inst-Simple/Standard ---
Discharge Inst-Standard Patient Instructions/Follow Up Plan of Care/Instructions/FU: Due to complexity of wound, will plan on referring to wound care, appointment tomorrow has been made for you. F/u Marina 2 weeks. Activity as Tolerated: No Discharge Diet: Regular Diet Other Inst to Patient Follow up Appt: Make appointment for 2 week. Wound care clinic tomorrow. Instructions: No lifting greater than 10 pounds. No strenuous activity. May shower in 24 hours, no tub bath or soaking. Use incentive spirometer at home as directed. No Smoking Skin/Wound Care: Wound care clinic will manage wound for wound vac changes due to complexity of wound. Symptoms to Report: Appetite Changes, Extremity Discoloration, Numbness/Tingling, Swelling Increased, Bleeding Excessive, Eyesight Changes, Pain Increased, Urine Color Change, Constipation(Persistent), Fever over 101 degree F, Pain/Pressure in chest, Urinating Difficulty, Cough Up/Vomit Blood, Heart Beat Irreg/Pounding, Pain/Pressure in jaw, Vaginal Bleeding Increase, Cramps in feet or legs, Lightheadedness, Pain/Pressure in shoulder, Diarrhea(Persistent), Memory Changes Suddenly, Questions/Concerns, Weight gain consecutive days, Dizziness/Fainting, Nausea/Vomiting, Shortness of Breath, Weight gain over 2 pounds If questions or concerns contact your physician Or seek help at emergency department. KAVON WILDER DO March 17, 2019 11:31
[2019-03-17] MEDS ORDERED: morphine INJ 10 MG/ML 1ML (SYR OR VIAL) ONE (11:41)
[2019-03-17] MEDS ORDERED: morphine INJ 10 MG/ML 1ML (SYR OR VIAL) IVP ONE (12:15)
--- NOTE | 2019-03-17 15:05 | OPERATIVE REPORT ---
DATE OF SERVICE: 03/17/2019 PREOPERATIVE DIAGNOSIS: Complicated open right wound of the thigh. POSTOPERATIVE DIAGNOSIS: Complicated open right wound of the thigh. PROCEDURE: Debridement of right thigh 5 x 9 x 4 cm skin and subcutaneous tissue with sharp and cautery debridement and wound VAC placement 5 x 9 x 4 cm. SURGEON: Kavon Gray DO ANESTHESIA: General. ESTIMATED BLOOD LOSS: Minimal. COMPLICATIONS: None. INDICATIONS: The patient is a 68-year-old male with chronic open wound of the right thigh with hollowing. This has been quite complex with multiple wound care regimens performed. I discussed risks and benefits of procedure to the patient and also need for wound care clinic management postoperatively due to complexity of the wound. He understands risks and benefits of the procedure and wished to proceed with procedure. Consent was signed and on the chart. DESCRIPTION OF PROCEDURE: The patient was taken to the operating suite. He was prepped and draped in sterile fashion. Surgical pause was performed. The tunneling wound was the guide for excision of skin and there was a chronic tract that was present. The skin and subcutaneous tissue was removed, removing the entire tract that was present opening up the wound to nice and clean subcutaneous tissue. The overall dimensions were 5 x 9 x 4 cm. Both sharp and cautery dissection was performed. Once hemostasis was achieved, black foam was cut to size, placed within the wound and then secured and the wound VAC was then started having good suction. No air leak. The patient tolerated the procedure well without any complications. He was taken to recovery room in stable condition. Job ID: [id number] DocumentID: [id number] Dictated Date: 03/17/2019 11:34:10 Team Truck Driver Date: 03/17/2019 15:05:04 Dictated By: KAVON GRAY DO
--- NOTE | 2019-03-17 16:35 | Anesthesia-General Post-Op ---
General Patient Condition Mental Status/LOC: Same as Preop Cardiovascular: Satisfactory Nausea/Vomiting: Absent Respiratory: Satisfactory Pain: Controlled Complications: Absent Post Op Complications Complications None Follow Up Care/Instructions Patient Instructions None needed. Anesthesia/Patient Condition Patient Condition Patient was seen after the procedure and he was doing well, no complaints, stable vital signs, no apparent adverse anesthesia problems. MARIA E DARLING DO March 17, 2019 16:35
== END 2019-03-17 13:30 | disposition home or self-care (01) ==
LOC: SDC 08:07
PROVIDERS: ATTEND Surgery
DX: S71.001A Unspecified open wound, right hip, initial encounter (principal); I10 Essential (primary) hypertension; I25.10 Atherosclerotic heart disease of native coronary artery without angina pectoris; I47.1 Supraventricular tachycardia; I49.3 Ventricular premature depolarization; E78.5 Hyperlipidemia, unspecified; J44.9 Chronic obstructive pulmonary disease, unspecified; K21.9 Gastro-esophageal reflux disease without esophagitis; Z95.0 Presence of cardiac pacemaker; Z87.891 Personal history of nicotine dependence
CPT/HCPCS: 87081; 88304

== ENCOUNTER → 2019-03-23 | Outpatient (CLI) | payer MEDICARE, MEDICAID ==
[~2019-03-23] MED LIST changes: +SULF1TAB35 PO
== END ==
LOC: WOUNDCARE 09:00
PROVIDERS: ATTEND Surgery
DX: L98.492 Non-pressure chronic ulcer of skin of other sites with fat layer exposed (principal); S71.011A Laceration without foreign body, right hip, initial encounter; T65.222A Toxic effect of tobacco cigarettes, intentional self-harm, initial encounter; F17.218 Nicotine dependence, cigarettes, with other nicotine-induced disorders; E66.01 Morbid (severe) obesity due to excess calories; R54 Age-related physical debility
CPT/HCPCS: 11042; 11045; 87070; 87077; 87205

== ENCOUNTER 2019-03-25 00:15 | Emergency (ER) | payer MEDICARE, MEDICAID ==
[~2019-03-25] VITALS: Ht 172.7 cm; Wt 77.1 kg
[~2019-03-25 00:15] MED LIST changes: -SULF1TAB35 PO
--- OUTSIDE RECORDS SUMMARY | 2019-03-25 00:21 | XMS REPORT | Clinical Summary ---
Author Author [facility] Organization [facility] Address Unknown Phone Unavailable Care Team Providers Care Crusher And Blender Operator Name Role Phone Traci Mota MD Unavailable Jonathan Beasley MD PCP Jaja Lujan MD Unavailable Skylar Stevens PA-C Unavailable Source Comments Some departments are not documenting in the electronic medical record. If you d o not see the information that you expected, contact Release of Information in [facility] Information Management department at [phone] for further assistan ce in locating additional records.[facility] Allergies Comments Active Allergy Reactions [...] directed daily. Active Problems Problem Noted Date [place] (myocardial infarction) 04/04/2014 Pacemaker 04/04/2014 Asthma 04/04/2014 [...] Taken Vital Sign Reading 11/23/2012 8:30 AM LADIES SUIT OPERATOR Blood Pressure 147/78 11/23/2012 8:30 AM LADIES SUIT OPERATOR Pulse 63 11/23/2012 8:30 AM LADIES SUIT OPERATOR Temperature 36.8 C (98.3 F) - Respiratory Rate - 11/23/2012 8:30 AM LADIES SUIT OPERATOR Oxygen Saturation 97% - Inhaled Oxygen - Concentration 11/19/2012 9:57 AM LADIES SUIT OPERATOR Weight 86.2 kg (190 lb) 11/19/2012 9:57 AM LADIES SUIT OPERATOR Height 172.7 cm (5' 8") 11/19/2012 9:57 AM LADIES SUIT OPERATOR Body Mass Index 28.89 Plan of Treatment [...] 1986-P PART A AND resent B Medicaid [place] xxxxxxxxxxx 2006- [place], [place] Advance Directives Patient has advance care planning documents, and code status on file. For more i nformation, please contact: [facility] [address] [place] [address] Date Inactivated Comments Code Status Date Activated 11/23/2012 4:23 PM Full Code 11/19/2012 5:11 PM Provider has discussed Code Status No, discussion not w/Patient or Family? necessary based on Dx
[2019-03-25] MEDS ORDERED: RX-TRIMETH/SULFA. 160-800 MG (BACTRIM DS) TAB PPK#2 PO STA (00:44)
--- NOTE | 2019-03-25 00:44 | ED Integumentary General ---
General Stated Complaint: WOUND Allergies and Home Medications Allergies Coded Allergies: codeine (Verified Allergy, Mild, HIVES...TAKES OXYCODONE & MS CONTIN AT HOME, 03/11/19) streptokinase (Verified Allergy, Unknown, 03/11/19) Home Medications Albuterol Sulfate 18 Gm Hfa.aer.ad, 2 PUFF INH Q4H PRN for SHORTNESS OF BREATH, (Reported) Cyclobenzaprine HCl 10 Mg Tablet, 10 MG PO TID, (Reported) Furosemide 40 Mg Tablet, 40 MG PO DAILY, (Reported) Morphine Sulfate 100 Mg Tablet.er, 200 MG PO BID, (Reported) TAKES 2 (100MG) TABLETS Nitroglycerin 0.4 Mg Tab.subl, 0.4 MG SL UD PRN for CHEST PAIN, (Reported) Zolpidem Tartrate 10 Mg Tablet, 10 MG PO HS, (Reported) Past Vcllafq-Jaxalw-Rragjd Hx Patient Social History Alcohol Beverage of Choice: [place] 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 Type Used: Cigarettes Former Smoker, Quit: May 30, 2014 2nd Hand Smoke Exposure: Yes Recent Foreign Travel: No Contact w/Someone Who Travel: No Recent Hopitalizations: No Immunizations Up To Date Tetanus Booster (TDap): Unknown PED Vaccines UTD: No Date of Pneumonia Vaccine: Aug 02, 2018 Date of Influenza Vaccine: Aug 02, 2018 Seasonal Allergies Seasonal Allergies: No Past Medical History Surgeries: Yes (BILAT HIP REPLACEMENTS X 22) Abdominal, Appendectomy, Cardiac, Defibrillator, Joint Replacement, Orthopedic, Pacemaker Respiratory: Yes Asthma Currently Using CPAP: No Currently Using BIPAP: No Cardiac: Yes (PACEMAKER, CARDIAC ARREST, SELF - REPORTED [place] X 8; CHF) Atrial Fibrillation, Chronic Edema/Swelling, Coronary Artery Disease, Heart Attack, Hypertension, Irregular Heartbeat Neurological: Yes Neuropathy Reproductive Disorders: No Sexually Transmitted Disease: No HIV/AIDS: No Genitourinary: No Neurogenic Bladder Gastrointestinal: Yes Abdominal Hernia, Chronic Constipation Musculoskeletal: Yes Arthritis, Chronic Back Pain, Fractures Endocrine: No Diabetes, Insulin dep HEENT: Yes Dysphagia Loss of Vision: Denies Hearing Impairment: Hard of Hearing Cancer: No Psychosocial: Yes (HX OF SUBSTANCE ABUSE-ETOH) Suicide Attempts, Depression Integumentary: Yes (CELLULITIS OF LEGS) Recent Skin Changes Blood Disorders: No Adverse Reaction/Blood Tranf: Yes (HIGH FEVER AND CHILLS) Family Medical History COPD Diabetes mellitus Physical Exam Vital Signs Capillary Refill : Departure Impression Primary Impression: SPONTANEOUS OPEN WOUND LEFT HIP-SITE OF OLD SURGERIES Disposition: HOME, SELF-CARE Condition: Stable Departure-Patient Inst. Referrals: OLEGARIO ROSENTHAL MD (PCP) Primary Care Physician [facility] (Family) Primary Care Physician ABUNDIO TITUS MD Patient Instructions: Wound Dehiscence (DC) Add. Discharge Instructions: LEAVE DRESSING AND PACKING IN PLACE FOLLOW UP WITH DR. TITUS TOMORROW FOR FURTHER CARE Scripts Sulfamethoxazole/Trimethoprim (Bactrim Ds Tablet) 1 Each Tablet 1 EACH PO BID, #20 TAB Prov: WILFRED CAMPBELL DO 03/25/19 WILFRED CAMPBELL DO March 25, 2019 00:44
[2019-03-25] MEDS ORDERED: SULF1TAB35 PO ×2 (00:45→00:46)
[2019-03-25 00:52] VITALS: BP 136/64
== END 2019-03-25 01:00 | disposition home or self-care (01) ==
LOC: EDUNIT# 00:15 → ER 00:17
DX: T81.31XA Disruption of external operation (surgical) wound, not elsewhere classified, initial encounter (principal); J45.909 Unspecified asthma, uncomplicated; I48.91 Unspecified atrial fibrillation; I25.10 Atherosclerotic heart disease of native coronary artery without angina pectoris; I25.2 Old myocardial infarction; I11.0 Hypertensive heart disease with heart failure; I50.9 Heart failure, unspecified; E11.40 Type 2 diabetes mellitus with diabetic neuropathy, unspecified; F32.9 Major depressive disorder, single episode, unspecified; Z91.5 Personal history of self-harm; Z87.19 Personal history of other diseases of the digestive system; Z88.5 Allergy status to narcotic agent; Z88.8 Allergy status to other drugs, medicaments and biological substances; Z87.891 Personal history of nicotine dependence; Z90.49 Acquired absence of other specified parts of digestive tract; Z96.643 Presence of artificial hip joint, bilateral; Z95.810 Presence of automatic (implantable) cardiac defibrillator; Z98.890 Other specified postprocedural states
CPT/HCPCS: 99283

== ENCOUNTER → 2019-03-28 | Outpatient (CLI) | payer MEDICARE, MEDICAID ==
[~2019-03-28] MED LIST changes: +SULF1TAB35 PO
== END ==
LOC: HH 08:00
PROVIDERS: ATTEND Surgery
DX: T81.31XD Disruption of external operation (surgical) wound, not elsewhere classified, subsequent encounter (principal); J44.9 Chronic obstructive pulmonary disease, unspecified; I11.0 Hypertensive heart disease with heart failure; I50.9 Heart failure, unspecified

== ENCOUNTER → 2019-03-28 | Outpatient (CLI) | payer MEDICARE, MEDICAID | LOC: WOUNDCARE 15:38 | PROVIDERS: ATTEND Surgery | DX: L98.492 Non-pressure chronic ulcer of skin of other sites with fat layer exposed (principal); L98.495 Non-pressure chronic ulcer of skin of other sites with muscle involvement without evidence of necrosis; T65.222A Toxic effect of tobacco cigarettes, intentional self-harm, initial encounter; F17.218 Nicotine dependence, cigarettes, with other nicotine-induced disorders; R54 Age-related physical debility | CPT/HCPCS: 11042; 11045; 97605 ==

== ENCOUNTER → 2019-04-11 | Outpatient (CLI) | payer MEDICARE, MEDICAID | LOC: WOUNDCARE 15:14 | PROVIDERS: ATTEND Surgery | DX: T81.31XD Disruption of external operation (surgical) wound, not elsewhere classified, subsequent encounter (principal); L98.492 Non-pressure chronic ulcer of skin of other sites with fat layer exposed; R68.89 Other general symptoms and signs | CPT/HCPCS: 11042; 11045 ==

== ENCOUNTER → 2019-04-25 | Outpatient (CLI) | payer MEDICARE, MEDICAID ==
[2019-04-25 16:45] LABS: BASOPHILS # (AUTO) 0.1 10^3/uL (0.0-0.1); BASOPHILS % (AUTO) 1 % (0-10); EOSINOPHILS # (AUTO) 0.2 10^3/uL (0.0-0.3); EOSINOPHILS % (AUTO) 2 % (0-10); HEMATOCRIT 37 % (40-54); HEMOGLOBIN 11.9 G/DL (13.3-17.7); LYMPHOCYTES # (AUTO) 2.5 X 10^3 (1.0-4.0); LYMPHOCYTES % (AUTO) 24 % (12-44); MEAN CORPUSCULAR HEMOGLOBIN 29 PG (25-34); MEAN CORPUSCULAR HGB CONC 33 G/DL (32-36); MEAN CORPUSCULAR VOLUME 88 FL (80-99); MEAN PLATELET VOLUME 10.2 FL (7.4-10.4); MONOCYTES # (AUTO) 1.1 X 10^3 (0.0-1.0); MONOCYTES % (AUTO) 11 % (0-12); NEUTROPHILS # (AUTO) 6.6 X 10^3 (1.8-7.8); NEUTROPHILS % (AUTO) 63 % (42-75); PLATELET COUNT 338 10^3/uL (130-400); WHITE BLOOD COUNT 10.5 10^3/uL (4.3-11.0)
[2019-04-25 17:10] LABS: ALANINE AMINOTRANSFERASE 12 U/L (0-55); ALBUMIN 3.8 GM/DL (3.2-4.5); ALKALINE PHOSPHATASE 90 U/L (40-136); BILIRUBIN,TOTAL 0.3 MG/DL (0.1-1.0); BUN/CREATININE RATIO 22; CALCIUM 9.2 MG/DL (8.5-10.1); CARBON DIOXIDE 26 MMOL/L (21-32); CHLORIDE 104 MMOL/L (98-107); CREATININE SERUM 0.99 MG/DL (0.60-1.30); GFR ESTIMATED > 60; GLUCOSE 99 MG/DL (70-105); POTASSIUM 3.3 MMOL/L (3.6-5.0); SODIUM 141 MMOL/L (135-145)
--- NOTE | 2019-04-25 20:57 | Diagnostic Imaging Report ---
INDICATION: Draining hip wounds. Time of exam: 4:49 PM Comparison is made with prior pelvis radiographs from 09/28/2018. Postsurgical and chronic changes about the bony pelvis and proximal femora is again seen. There has been resection of the right femoral head and neck. Cerclage wires transfix the proximal right femoral shaft. The area of heterotopic ossification lateral to the right hip is unchanged. Postsurgical changes left hip with resection of the left femoral head and neck is also noted. The acetabular component on the left remains in place. Cerclage wires transfix the proximal left femoral shaft. There is generalized demineralization noted. There is heterotopic ossification along the lateral aspect of the left hip. Rami are intact. SI joints and symphysis are non-widened. IMPRESSION: Stable chronic appearance of the pelvis and proximal femora when compared with exam from 09/28/2018. Dictated by: Dictated on workstation # [id number]
== END ==
LOC: WOUNDCARE 15:14
PROVIDERS: ATTEND Surgery
DX: S71.011A Laceration without foreign body, right hip, initial encounter (principal); L98.495 Non-pressure chronic ulcer of skin of other sites with muscle involvement without evidence of necrosis; L98.492 Non-pressure chronic ulcer of skin of other sites with fat layer exposed; T65.222A Toxic effect of tobacco cigarettes, intentional self-harm, initial encounter; F17.218 Nicotine dependence, cigarettes, with other nicotine-induced disorders; E66.01 Morbid (severe) obesity due to excess calories; R54 Age-related physical debility
CPT/HCPCS: 36415; 72170; 80053; 84134; 85025

== ENCOUNTER → 2019-05-02 | Outpatient (CLI) | payer MEDICARE, MEDICAID | LOC: WOUNDCARE 15:31 | PROVIDERS: ATTEND Surgery | DX: L98.492 Non-pressure chronic ulcer of skin of other sites with fat layer exposed (principal); L97.121 Non-pressure chronic ulcer of left thigh limited to breakdown of skin; T81.31XA Disruption of external operation (surgical) wound, not elsewhere classified, initial encounter; E66.01 Morbid (severe) obesity due to excess calories; R68.89 Other general symptoms and signs | CPT/HCPCS: 11042 ==

== ENCOUNTER 2019-08-28 19:02 | Emergency (ER) | payer MEDICARE, MEDICAID ==
[~2019-08-28] VITALS: Ht 172 cm; Wt 78.4 kg
--- NOTE | 2019-08-28 19:17 | ED Integumentary General ---
General Stated Complaint: BLEEDING FROM INCISION Source: patient Exam Limitations: no limitations History of Present Illness Date Seen by Provider: Aug 28, 2019 Time Seen by Provider: 19:16 Initial Comments To ER from [place] with reports of bleeding from the incision on each hip. This was from a hip surgery bilaterally over 2 years ago. This bleeding has been ongoing for about 2 months but seemed a bit more this evening. No fevers or chills or increased pain. Timing/Duration: getting worse Severity: moderate Associated Symptoms: denies symptoms Allergies and Home Medications Allergies Coded Allergies: codeine (Verified Allergy, Mild, HIVES...TAKES OXYCODONE & MS CONTIN AT HOME, 03/11/19) streptokinase (Verified Allergy, Unknown, 03/11/19) Home Medications Albuterol Sulfate 18 Gm Hfa.aer.ad, 2 PUFF INH Q4H PRN for SHORTNESS OF BREATH, (Reported) Cyclobenzaprine HCl 10 Mg Tablet, 10 MG PO TID, (Reported) Furosemide 40 Mg Tablet, 40 MG PO DAILY, (Reported) Morphine Sulfate 100 Mg Tablet.er, 200 MG PO BID, (Reported) TAKES 2 (100MG) TABLETS Nitroglycerin 0.4 Mg Tab.subl, 0.4 MG SL UD PRN for CHEST PAIN, (Reported) Sulfamethoxazole/Trimethoprim 1 Each Tablet, 1 EACH PO BID Prescribed by: WILFRED CAMPBELL on 03/25/19 0046 Zolpidem Tartrate 10 Mg Tablet, 10 MG PO HS, (Reported) Patient Home Medication List Home Medication List Reviewed: Yes Review of Systems Review of Systems Constitutional: see HPI EENTM: see HPI Respiratory: no symptoms reported Cardiovascular: no symptoms reported Genitourinary: no symptoms reported Musculoskeletal: no symptoms reported Skin: see HPI Psychiatric/Neurological: No Symptoms Reported Endocrine: No Symptoms Reported Past Brkckmf-Rvbnlc-Grrdlm Hx Patient Social History Alcohol Beverage of Choice: [place] 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 Type Used: Cigarettes Former Smoker, Quit: May 30, 2014 2nd Hand Smoke Exposure: Yes Recent Hopitalizations: No Immunizations Up To Date Tetanus Booster (TDap): Less than 5yrs PED Vaccines UTD: No Date of Pneumonia Vaccine: Aug 02, 2018 Date of Influenza Vaccine: Aug 02, 2018 Seasonal Allergies Seasonal Allergies: No Past Medical History Surgeries: Yes (BILAT HIP REPLACEMENTS X 22) Abdominal, Appendectomy, Cardiac, Defibrillator, Joint Replacement, Orthopedic, Pacemaker Respiratory: Yes Asthma Currently Using CPAP: No Currently Using BIPAP: No Cardiac: Yes (PACEMAKER, CARDIAC ARREST, SELF - REPORTED [place] X 8; CHF) Atrial Fibrillation, Chronic Edema/Swelling, Coronary Artery Disease, Heart Attack, Hypertension, Irregular Heartbeat Neurological: Yes Neuropathy Reproductive Disorders: No Sexually Transmitted Disease: No HIV/AIDS: No Genitourinary: No Neurogenic Bladder Gastrointestinal: Yes Abdominal Hernia, Chronic Constipation Musculoskeletal: Yes Arthritis, Chronic Back Pain, Fractures Endocrine: No Diabetes, Insulin dep HEENT: Yes Dysphagia Loss of Vision: Denies Hearing Impairment: Hard of Hearing Cancer: No Psychosocial: Yes (HX OF SUBSTANCE ABUSE-ETOH) Suicide Attempts, Depression Integumentary: Yes (CELLULITIS OF LEGS) Recent Skin Changes Blood Disorders: No Adverse Reaction/Blood Tranf: Yes (HIGH FEVER AND CHILLS) Family Medical History COPD Diabetes mellitus Physical Exam Vital Signs Vital Signs - First Documented 08/28/19 19:05 Temp 37.0 Pulse 92 Resp 18 B/P (MAP) 147/96 (113) Pulse Ox 96 Capillary Refill : General Appearance: WD/WN, no apparent distress HEENT: PERRL/EOMI Respiratory: no respiratory distress, no accessory muscle use Neurologic/Psychiatric: alert, normal mood/affect, oriented x 3 Skin: normal color, warm/dry Skin Problem Location: other (open wounds to each hip measures about 3-4 cm, there is a bit more dried blood on the left side than the right there is no active bleeding or no surrounding hematoma or ecchymosis. No erythema or surrounding cellulitis. The wound edges are composed of granulation tissue.) Progress/Results/Core Measures Results/Orders Lab Results Laboratory Tests Test 08/28/19 19:15 Range/Units White Blood Count 11.4 H 4.3-11.0 10^3/uL Red Blood Count 4.22 L 4.35-5.85 10^6/uL Hemoglobin 11.0 L 13.3-17.7 G/DL Hematocrit 35 L 40-54 % Mean Corpuscular Volume 82 80-99 FL Mean Corpuscular Hemoglobin 26 25-34 PG Mean Corpuscular Hemoglobin Concent 32 32-36 G/DL Red Cell Distribution Width 16.1 H 10.0-14.5 % Platelet Count 432 H 130-400 10^3/uL Mean Platelet Volume 10.6 H 7.4-10.4 FL Neutrophils (%) (Auto) 58 42-75 % Lymphocytes (%) (Auto) 30 12-44 % Monocytes (%) (Auto) 9 0-12 % Eosinophils (%) (Auto) 2 0-10 % Basophils (%) (Auto) 2 0-10 % Neutrophils # (Auto) 6.0 1.8-7.8 X 10^3 Lymphocytes # (Auto) 3.1 1.0-4.0 X 10^3 Monocytes # (Auto) 0.9 0.0-1.0 X 10^3 Eosinophils # (Auto) 0.2 0.0-0.3 10^3/uL Basophils # (Auto) 0.2 H 0.0-0.1 10^3/uL Serum Alcohol 204 H <10 MG/DL My Orders Orders - LOWELL STEVENS APRN Cbc With Automated Diff (08/28/19 19:15) Pelvis (08/28/19 19:15) Alcohol (08/28/19 19:18) Vital Signs/I&O 08/28/19 19:05 Temp 37.0 Pulse 92 Resp 18 B/P (MAP) 147/96 (113) Pulse Ox 96 Diagnostic Imaging Diagonstic Imaging: Xray Departure Impression Primary Impression: Nonhealing surgical wound Qualified Codes: T81.89XA - Other complications of procedures, not elsewhere classified, initial encounter Disposition: 01 HOME, SELF-CARE Condition: Stable Departure-Patient Inst. Decision time for Depature: 20:08 Referrals: OLEGARIO ROSENTHAL MD (PCP) Primary Care Physician [facility] [place]) Primary Care Physician ABUNDIO SWENSON MD Patient Instructions: Wound Care (DC) Add. Discharge Instructions: 1. Call Dr. Swenson tomorrow to make an appointment to be seen for follow-up. Return to ER for any concerns. LOWELL STEVENS APRN Aug 28, 2019 19:17 POS
[2019-08-28 19:38] LABS: BASOPHILS # (AUTO) 0.2 10^3/uL (0.0-0.1); BASOPHILS % (AUTO) 2 % (0-10); EOSINOPHILS # (AUTO) 0.2 10^3/uL (0.0-0.3); EOSINOPHILS % (AUTO) 2 % (0-10); LYMPHOCYTES # (AUTO) 3.1 X 10^3 (1.0-4.0); LYMPHOCYTES % (AUTO) 30 % (12-44); MEAN CORPUSCULAR HGB CONC 32 G/DL (32-36); MEAN CORPUSCULAR VOLUME 82 FL (80-99); MEAN PLATELET VOLUME 10.6 FL (7.4-10.4); MONOCYTES # (AUTO) 0.9 X 10^3 (0.0-1.0); MONOCYTES % (AUTO) 9 % (0-12); NEUTROPHILS % (AUTO) 58 % (42-75); RED CELL DISTRIBUTION WIDTH 16.1 % (10.0-14.5)
[2019-08-28 19:39] LABS: HEMATOCRIT 35 % (40-54); MEAN CORPUSCULAR HEMOGLOBIN 26 PG (25-34); WHITE BLOOD COUNT 11.4 10^3/uL (4.3-11.0)
[2019-08-28 19:40] LABS: PLATELET COUNT 432 10^3/uL (130-400)
--- NOTE | 2019-08-28 19:56 | Diagnostic Imaging Report ---
EXAMINATION: Pelvis, 1 or 2 views. HISTORY: Soft tissue wound. COMPARISON: 04/25/2019. FINDINGS: There has been resection of both femoral heads. Cerclage wires are seen in both proximal femora. The acetabular component of the left hip arthroplasty is present. There is extensive heterotopic ossification. The appearance is unchanged from prior exam. No acute fracture is seen. No soft tissue gas is seen. IMPRESSION: Bilateral femoral head resections, unchanged appearance from prior exam. Dictated by: Dictated on workstation # [id number]
[2019-08-28 20:26] VITALS: BP 147/96
== END 2019-08-28 20:32 | disposition home or self-care (01) ==
LOC: EDUNIT# 19:02 → ER 19:03
DX: T81.89XA Other complications of procedures, not elsewhere classified, initial encounter (principal); I10 Essential (primary) hypertension; E11.40 Type 2 diabetes mellitus with diabetic neuropathy, unspecified; J45.909 Unspecified asthma, uncomplicated; I25.2 Old myocardial infarction; F32.9 Major depressive disorder, single episode, unspecified; I25.10 Atherosclerotic heart disease of native coronary artery without angina pectoris; E78.00 Pure hypercholesterolemia, unspecified; I48.91 Unspecified atrial fibrillation; Z96.643 Presence of artificial hip joint, bilateral; Z91.5 Personal history of self-harm; Z88.5 Allergy status to narcotic agent; Z88.8 Allergy status to other drugs, medicaments and biological substances; Z87.891 Personal history of nicotine dependence; Z77.22 Contact with and (suspected) exposure to environmental tobacco smoke (acute) (chronic); Z90.49 Acquired absence of other specified parts of digestive tract; Z95.810 Presence of automatic (implantable) cardiac defibrillator
CPT/HCPCS: 36415; 72170; 80320; 85025

== ENCOUNTER 2019-08-31 12:56 | Emergency (ER) | payer MEDICARE, MEDICAID ==
[~2019-08-31] VITALS: Ht 172 cm; Wt 72.7 kg
--- NOTE | 2019-08-31 13:14 | ED Integumentary General ---
General Chief Complaint: Skin/Wound Problems Stated Complaint: WOUND Source: patient Exam Limitations: no limitations History of Present Illness Date Seen by Provider: Aug 31, 2019 Time Seen by Provider: 13:06 Initial Comments To ER from his home and normal with reports of bleeding wounds to both of his hips. These wounds are nonhealing surgical wounds, the surgery was 2 years ago. He was formerly seen by wound care but has since been discharged. He was here wi thin the past 7 days for the same symptoms, upon arrival the bleeding from each wound had stopped. His alcohol level was found to be 204. He comes in today with recurrent bleeding, nausea vomiting diarrhea. He is on MS Contin and oxycodone at home, had a 28 day supply filled on 08/10 and has been out of these for 3 days--the same length of time as he's been out of opiates. Timing/Duration: constant Severity: moderate Location: extremities Possible Cause: no cause identified Associated Symptoms: denies symptoms Allergies and Home Medications Allergies Coded Allergies: codeine (Verified Allergy, Mild, HIVES...TAKES OXYCODONE & MS CONTIN AT HOME, 03/11/19) streptokinase (Verified Allergy, Unknown, 03/11/19) Home Medications Albuterol Sulfate 18 Gm Hfa.aer.ad, 2 PUFF INH Q4H PRN for SHORTNESS OF BREATH, (Reported) Clonidine HCl 0.1 Mg Tablet, 0.1 MG PO BID Prescribed by: LOWELL STEVENS on 08/31/191314 Cyclobenzaprine HCl 10 Mg Tablet, 10 MG PO TID, (Reported) Furosemide 40 Mg Tablet, 40 MG PO DAILY, (Reported) Hydroxyzine Pamoate 25 Mg Capsule, 25 MG PO Q6H PRN for ANXIETY Prescribed by: LOWELL STEVENS on 08/31/191314 Loperamide HCl 2 Mg Tablet, 2 MG PO Q4H PRN for DIARRHEA Prescribed by: LOWELL STEVENS on 08/31/19 131 Morphine Sulfate 100 Mg Tablet.er, 200 MG PO BID, (Reported) TAKES 2 (100MG) TABLETS Nitroglycerin 0.4 Mg Tab.subl, 0.4 MG SL UD PRN for CHEST PAIN, (Reported) Ondansetron 4 Mg Tab.rapdis, 4 MG PO Q4H PRN for NAUSEA/VOMITING Prescribed by: LOWELL STEVENS on 08/31/19 131 Sulfamethoxazole/Trimethoprim 1 Each Tablet, 1 EACH PO BID Prescribed by: WILFRED CAMPBELL on 03/25/19 0046 Zolpidem Tartrate 10 Mg Tablet, 10 MG PO HS, (Reported) Patient Home Medication List Home Medication List Reviewed: Yes Review of Systems Review of Systems Constitutional: see HPI; No chills, No fever EENTM: see HPI Respiratory: no symptoms reported Cardiovascular: no symptoms reported Genitourinary: no symptoms reported Musculoskeletal: no symptoms reported Skin: no symptoms reported Psychiatric/Neurological: No Symptoms Reported Endocrine: No Symptoms Reported Hematologic/Lymphatic: No Symptoms Reported Past Kcbsscu-Ggktee-Hhmand Hx Patient Social History Alcohol Beverage of Choice: [place] 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 Type Used: Cigarettes Former Smoker, Quit: May 30, 2014 2nd Hand Smoke Exposure: Yes Recent Hopitalizations: No Immunizations Up To Date Tetanus Booster (TDap): Less than 5yrs PED Vaccines UTD: No Date of Pneumonia Vaccine: Aug 02, 2018 Date of Influenza Vaccine: Aug 02, 2018 Seasonal Allergies Seasonal Allergies: No Past Medical History Surgeries: Yes (BILAT HIP REPLACEMENTS X 22; WOUND DEBRIDEMENTS) Abdominal, Appendectomy, Cardiac, Defibrillator, Joint Replacement, Orthopedic, Pacemaker Respiratory: Yes Asthma, COPD Currently Using CPAP: No Currently Using BIPAP: No Cardiac: Yes (PACEMAKER, CARDIAC ARREST, SELF - REPORTED [place] X 8; CHF) Atrial Fibrillation, Chronic Edema/Swelling, Coronary Artery Disease, Congenital Heart Disease, Heart Attack, Hypertension, Irregular Heartbeat Neurological: Yes Neuropathy Reproductive Disorders: No Sexually Transmitted Disease: No HIV/AIDS: No Genitourinary: Yes Neurogenic Bladder Gastrointestinal: Yes Abdominal Hernia, Chronic Constipation Musculoskeletal: Yes Arthritis, Chronic Back Pain, Fractures Endocrine: Yes Diabetes, Insulin dep HEENT: Yes Dysphagia Loss of Vision: Denies Hearing Impairment: Hard of Hearing Cancer: No Psychosocial: Yes Suicide Attempts, Depression Integumentary: Yes (recurrent wound issues) Recent Skin Changes Blood Disorders: No Adverse Reaction/Blood Tranf: Yes (HIGH FEVER AND CHILLS) Family Medical History COPD Diabetes mellitus Physical Exam Vital Signs Vital Signs - First Documented 08/31/19 13:02 Temp 36.9 Pulse 77 Resp 16 B/P (MAP) 146/116 (126) Pulse Ox 97 O2 Delivery Room Air Capillary Refill : General Appearance: WD/WN, no apparent distress HEENT: PERRL/EOMI, normal ENT inspection Neck: non-tender, full range of motion Respiratory: no respiratory distress, no accessory muscle use Gastrointestinal: normal bowel sounds, non tender Neurologic/Psychiatric: alert, normal mood/affect, oriented x 3 Skin: normal color, warm/dry Skin Problem Character: other (2-3 cm wound to the lateral aspect of each hip. The wound edges are apprised of granulation tissue with some dried clotted blood on it but no bruising or active blood, just as the other day. Would have some concern that perhaps he is picking at these wounds causing them to bleed. There is no surrounding cellulitis.) Progress/Results/Core Measures Results/Orders My Orders Orders - LOWELL STEVENS APRN Clonidine Tablet (Catapres Tablet) (08/31/19 13:30) Loperamide Tablet (Imodium Tablet) (08/31/19 13:30) Ondansetron Oral Dissolve Tab (Zofran (08/31/19 13:30) Vital Signs/I&O 08/31/19 13:02 Temp 36.9 Pulse 77 Resp 16 B/P (MAP) 146/116 (126) Pulse Ox 97 O2 Delivery Room Air Departure Impression Primary Impression: Nonhealing surgical wound Qualified Codes: T81.89XA - Other complications of procedures, not elsewhere classified, initial encounter Additional Impressions: opiate withdrawal Opiate abuse, continuous Disposition: 01 HOME, SELF-CARE Condition: Stable Departure-Patient Inst. Decision time for Depature: 13:11 Referrals: OLEGARIO ROSENTHAL MD (PCP/Family) Primary Care Physician ABUNDIO TITUS MD Patient Instructions: Prescription Drug Misuse, Wound Care (DC) Add. Discharge Instructions: 1. Return to Er for any concersn 2. Follow up with your doctor next week All discharge instructions reviewed with patient and/or family. Voiced understanding. Scripts Clonidine HCl (Clonidine HCl) 0.1 Mg Tablet 0.1 MG PO BID, #10 TAB Prov: LOWELL STEVENS APRN 08/31/19 Hydroxyzine Pamoate (Vistaril) 25 Mg Capsule 25 MG PO Q6H PRN for ANXIETY, #10 CAP Prov: LOWELL STEVENS APRN 08/31/19 Ondansetron (Ondansetron Odt) 4 Mg Tab.rapdis 4 MG PO Q4H PRN for NAUSEA/VOMITING, #10 TAB Prov: LOWELL STEVENS [employer] 08/31/19 Loperamide HCl (Anti-Diarrheal) 2 Mg Tablet 2 MG PO Q4H PRN for DIARRHEA, #20 TAB Prov: LOWELL STEVENS [employer] 08/31/19 Copy Copies To 1: OLEGARIO ROSENTHAL MD, PETER J APRN Aug 31, 2019 13:14 POS
[2019-08-31] MEDS ORDERED: ONDA4TAB11 PO (13:15)
[2019-08-31] MEDS ORDERED: LOPE2TAB32 PO (13:15)
[2019-08-31] MEDS ORDERED: CLON0.1T PO (13:15)
[2019-08-31] MEDS ORDERED: HYDR25CA PO (13:15)
[2019-08-31] MEDS ORDERED: ONDANSETRON 4 MG (ZOFRAN) ORAL DISSOLVE TAB PO ONE (13:30)
[2019-08-31] MEDS ORDERED: LOPERAMIDE 2 MG (IMODIUM) TABLET PO ONE (13:30)
[2019-08-31] MEDS ORDERED: cloNIDine 0.1 MG (CATAPRES) TAB PO ONE (13:30)
[2019-08-31 13:35] VITALS: BP 144/73
--- NOTE | 2019-08-31 13:35 | NUR ---
PT CALLING FOR RIDE AT THIS TIME.
--- NOTE | 2019-08-31 13:50 | NUR ---
PT CONTINUES TO TRY TO CALL FOR A RIDE HOME. CARE VAN IS FULL ET PT NOTIFIED.
== END 2019-08-31 13:35 | disposition home or self-care (01) ==
LOC: ER 12:56 → EDUNIT# 12:56 → ER 13:35
DX: T81.89XA Other complications of procedures, not elsewhere classified, initial encounter (principal); F11.23 Opioid dependence with withdrawal; I10 Essential (primary) hypertension; E11.40 Type 2 diabetes mellitus with diabetic neuropathy, unspecified; I25.2 Old myocardial infarction; J44.9 Chronic obstructive pulmonary disease, unspecified; I25.10 Atherosclerotic heart disease of native coronary artery without angina pectoris; I48.91 Unspecified atrial fibrillation; F32.9 Major depressive disorder, single episode, unspecified; Z90.49 Acquired absence of other specified parts of digestive tract; Z91.5 Personal history of self-harm; Z95.810 Presence of automatic (implantable) cardiac defibrillator; Z88.5 Allergy status to narcotic agent; Z88.8 Allergy status to other drugs, medicaments and biological substances; Z87.891 Personal history of nicotine dependence; Z77.22 Contact with and (suspected) exposure to environmental tobacco smoke (acute) (chronic)

== ENCOUNTER 2019-09-18 19:24 | Emergency (ER) | payer MEDICARE, MEDICAID ==
[~2019-09-18] VITALS: Ht 172 cm; Wt 72.7 kg
[~2019-09-18 19:24] MED LIST changes: +CLON0.1T PO; +HYDR25CA PO; +LOPE2TAB32 PO; +ONDA4TAB11 PO
--- NOTE | 2019-09-18 19:32 | ED Fall/Injury ---
General Stated Complaint: HIP PAIN FALL Source: patient, EMS Exam Limitations: no limitations History of Present Illness Date Seen by Provider: Sep 18, 2019 Time Seen by Provider: 19:30 Initial Comments To ER per EMS from home with reports of a fall this evening, struck his head on the floor and states that he didn't lose consciousness. He is now alert and oriented. Complains of some chronic bleeding wounds to the lateral hips-history of osteonecrosis both hips with "22 surgeries" for them.. He is on morphine sulfate extended release 200 mg 3 times a day and oxycodone 15 mg daily. Denies alcohol use today. Small abrasion of the right side of forehead, tetanus has been updated within the past 5 years she states. He denies neck pain. Occurred: just prior to arrival Severity: moderate Injuries/Pain Location: head Loss of Consciousness: brief (seconds) Associated Symptoms (Fall): Denies Symptoms; No Nausea/Vomiting, No Neck Pain Allergies and Home Medications Allergies Coded Allergies: codeine (Verified Allergy, Mild, HIVES...TAKES OXYCODONE & MS CONTIN AT HOME, 03/11/19) streptokinase (Verified Allergy, Unknown, 03/11/19) Home Medications Albuterol Sulfate 18 Gm Hfa.aer.ad, 2 PUFF INH Q4H PRN for SHORTNESS OF BREATH, (Reported) Clonidine HCl 0.1 Mg Tablet, 0.1 MG PO BID Prescribed by: LOWELL STEVENS on 08/31/191314 Cyclobenzaprine HCl 10 Mg Tablet, 10 MG PO TID, (Reported) Furosemide 40 Mg Tablet, 40 MG PO DAILY, (Reported) Hydroxyzine Pamoate 25 Mg Capsule, 25 MG PO Q6H PRN for ANXIETY Prescribed by: LOWELL STEVENS on 08/31/191314 Loperamide HCl 2 Mg Tablet, 2 MG PO Q4H PRN for DIARRHEA Prescribed by: LOWELL STEVENS on 08/31/191314 Morphine Sulfate 100 Mg Tablet.er, 200 MG PO BID, (Reported) TAKES 2 (100MG) TABLETS Nitroglycerin 0.4 Mg Tab.subl, 0.4 MG SL UD PRN for CHEST PAIN, (Reported) Ondansetron 4 Mg Tab.rapdis, 4 MG PO Q4H PRN for NAUSEA/VOMITING Prescribed by: LOWELL STEVENS on 08/31/191314 Sulfamethoxazole/Trimethoprim 1 Each Tablet, 1 EACH PO BID Prescribed by: WILFRED CAMPBELL on 03/25/19 0046 Zolpidem Tartrate 10 Mg Tablet, 10 MG PO HS, (Reported) Patient Home Medication List Home Medication List Reviewed: Yes Review of Systems Review of Systems Constitutional: see HPI Eyes: No Symptoms Reported Ears, Nose, Mouth, Throat: no symptoms reported Respiratory: no symptoms reported Cardiovascular: see HPI, palpitations Genitourinary: no symptoms reported Musculoskeletal: no symptoms reported Skin: no symptoms reported Psychiatric/Neurological: No Symptoms Reported Past Adzidww-Zxwmgx-Jtbsih Hx Patient Social History Alcohol Beverage of Choice: [place] 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 Type Used: Cigarettes Former Smoker, Quit: May 30, 2014 2nd Hand Smoke Exposure: Yes Recent Foreign Travel: No Contact w/Someone Who Travel: No Recent Hopitalizations: No Immunizations Up To Date Tetanus Booster (TDap): Less than 5yrs PED Vaccines UTD: No Date of Pneumonia Vaccine: Aug 02, 2018 Date of Influenza Vaccine: Aug 02, 2018 Seasonal Allergies Seasonal Allergies: No Past Medical History Surgeries: Yes (BILAT HIP REPLACEMENTS X 22; WOUND DEBRIDEMENTS) Abdominal, Appendectomy, Cardiac, Defibrillator, Joint Replacement, Orthopedic, Pacemaker Respiratory: Yes Asthma, COPD Currently Using CPAP: No Currently Using BIPAP: No Cardiac: Yes (PACEMAKER, CARDIAC ARREST, SELF - REPORTED OR X 8; CHF) Atrial Fibrillation, Chronic Edema/Swelling, Coronary Artery Disease, Congenital Heart Disease, Heart Attack, Hypertension, Irregular Heartbeat Neurological: Yes Neuropathy Reproductive Disorders: No Sexually Transmitted Disease: No HIV/AIDS: No Genitourinary: Yes Neurogenic Bladder Gastrointestinal: Yes Abdominal Hernia, Chronic Constipation Musculoskeletal: Yes Arthritis, Chronic Back Pain, Fractures Endocrine: Yes Diabetes, Insulin dep HEENT: Yes Dysphagia Loss of Vision: Denies Hearing Impairment: Hard of Hearing Cancer: No Psychosocial: Yes Suicide Attempts, Depression Integumentary: Yes (recurrent wound issues) Recent Skin Changes Blood Disorders: No Adverse Reaction/Blood Tranf: Yes (HIGH FEVER AND CHILLS) Family Medical History COPD Diabetes mellitus Physical Exam Vital Signs Vital Signs - First Documented 09/18/19 19:25 Temp 36.8 Pulse 83 Resp 18 B/P (MAP) 153/88 (109) O2 Delivery Room Air Capillary Refill : Height, Weight, BMI Height: 5'8.00" Weight: 170lbs. 8.0oz. [id number]; 24.00 BMI Method:Stated General Appearance: WD/WN, no apparent distress HEENT: PERRL/EOMI, normal ENT inspection, other (Minor abrasion order size to the right side of the forehead without active bleeding or laceration) Neck: non-tender, full range of motion Respiratory: normal breath sounds, no respiratory distress Gastrointestinal: normal bowel sounds, non tender, soft Extremities: other (chronic nonhealing incisions to the lateral aspect over the hips each measures about 2 cm, no active bleeding, filled with granulation tissue. No surrounding cellulitis changes) Neurologic/Psychiatric: alert, normal mood/affect, oriented x 3 Skin: normal color, warm/dry [place] Coma Score Best Eye Response: (4) Open Spontaneously Best Verbal Response: (5) Oriented Best Motor Response: (6) Obeys Commands Dayan Total: 15 Progress/Results/Core Measures Results/Orders Lab Results Laboratory Tests Test 09/18/19 19:48 Range/Units White Blood Count 10.2 4.3-11.0 10^3/uL Red Blood Count 3.88 L 4.35-5.85 10^6/uL Hemoglobin 9.9 L 13.3-17.7 G/DL Hematocrit 32 L 40-54 % Mean Corpuscular Volume 82 80-99 FL Mean Corpuscular Hemoglobin 26 25-34 PG Mean Corpuscular Hemoglobin Concent 31 L 32-36 G/DL Red Cell Distribution Width 16.2 H 10.0-14.5 % Platelet Count 434 H 130-400 10^3/uL Mean Platelet Volume 11.4 H 7.4-10.4 FL Neutrophils (%) (Auto) 60 42-75 % Lymphocytes (%) (Auto) 32 12-44 % Monocytes (%) (Auto) 7 0-12 % Eosinophils (%) (Auto) 1 0-10 % Basophils (%) (Auto) 1 0-10 % Neutrophils # (Auto) 6.1 1.8-7.8 X 10^3 Lymphocytes # (Auto) 3.3 1.0-4.0 X 10^3 Monocytes # (Auto) 0.7 0.0-1.0 X 10^3 Eosinophils # (Auto) 0.1 0.0-0.3 10^3/uL Basophils # (Auto) 0.1 0.0-0.1 10^3/uL Sodium Level 145 135-145 MMOL/L Potassium Level 3.5 L 3.6-5.0 MMOL/L Chloride Level 112 H 98-107 MMOL/L Carbon Dioxide Level 21 21-32 MMOL/L Anion Gap 12 5-14 MMOL/L Blood Urea Nitrogen 8 7-18 MG/DL Creatinine 0.98 0.60-1.30 MG/DL Estimat Glomerular Filtration Rate > 60 BUN/Creatinine Ratio 8 Glucose Level 92 70-105 MG/DL Calcium Level 8.8 8.5-10.1 MG/DL Corrected Calcium 9.0 8.5-10.1 MG/DL Magnesium Level 1.7 1.6-2.4 MG/DL Total Bilirubin 0.3 0.1-1.0 MG/DL Aspartate Amino Transf (AST/SGOT) 11 5-34 U/L Alanine Aminotransferase (ALT/SGPT) 7 0-55 U/L Alkaline Phosphatase 74 40-136 U/L Troponin I 0.028 <0.028 NG/ML Total Protein 6.3 L 6.4-8.2 GM/DL Albumin 3.7 3.2-4.5 GM/DL Serum Alcohol 190 H <10 MG/DL My Orders Orders - LOWELL STEVENS APRN Cbc With Automated Diff (09/18/19 19:28) Ekg Tracing (09/18/19 19:28) Comprehensive Metabolic Panel (09/18/19 19:28) Alcohol (09/18/19 19:28) Magnesium (09/18/19 19:28) Troponin I (09/18/19 19:28) Ct Head/Cervical Spine Wo (09/18/19 19:28) Chest 1 View, Ap/Pa Only (09/18/19 19:28) Pelvis (09/18/19 19:40) Vital Signs/I&O 09/18/19 19:25 Temp 36.8 Pulse 83 Resp 18 B/P (MAP) 153/88 (109) O2 Delivery Room Air Departure Communication (Admissions) Because of the positive loss of consciousness with head injury after a fall and alcohol use, discussed with Dr. Umanzor, will admit for observation status. GCS 15, alert and oriented. 2121-patient states he would like to go on home. However because the alcohol use and the head injury of questionable significance, I did have them answered a few questions, he knows the year, he knows where he is a knows the upcoming holiday. He has 2+2 is 4. I told him the risks of going home or delayed intracranial bleeding or something he may not recover from. He is able to recite these risks back to me. He will try to find a ride home. He does have a history of alcoholism, seems to be his baseline neurologic functioning based on my previous interactions with him. 2142-unable to find himself a ride home, still doesn't want to be admitted. Advised him I cannot give him a taxi voucher home if he is leaving AGAINST MEDICAL ADVICE. He states he would like to go out to the waiting room then and continue calling people but does not want to stay. Mental status remains alert and oriented. I do believe that he has the capacity to make the decision to go home AGAINST MEDICAL ADVICE though it is not advisable. Impression Primary Impression: CHI (closed head injury) Additional Impression: Alcohol abuse Disposition: 07 AGAINST MEDICAL ADVICE Condition: Against Medical Advice Departure-Patient Inst. Referrals: OLEGARIO ROSENTHAL MD (PCP/Family) Primary Care Physician LOWELL STEVENS APRN Sep 18, 2019 19:32 POS
[2019-09-18 19:54] LABS: BASOPHILS # (AUTO) 0.1 10^3/uL (0.0-0.1); BASOPHILS % (AUTO) 1 % (0-10); EOSINOPHILS # (AUTO) 0.1 10^3/uL (0.0-0.3); EOSINOPHILS % (AUTO) 1 % (0-10); HEMATOCRIT 32 % (40-54); HEMOGLOBIN 9.9 G/DL (13.3-17.7); LYMPHOCYTES # (AUTO) 3.3 X 10^3 (1.0-4.0); LYMPHOCYTES % (AUTO) 32 % (12-44); MEAN CORPUSCULAR HEMOGLOBIN 26 PG (25-34); MEAN CORPUSCULAR HGB CONC 31 G/DL (32-36); MEAN CORPUSCULAR VOLUME 82 FL (80-99); MEAN PLATELET VOLUME 11.4 FL (7.4-10.4); MONOCYTES # (AUTO) 0.7 X 10^3 (0.0-1.0); MONOCYTES % (AUTO) 7 % (0-12); NEUTROPHILS # (AUTO) 6.1 X 10^3 (1.8-7.8); NEUTROPHILS % (AUTO) 60 % (42-75); PLATELET COUNT 434 10^3/uL (130-400); RED CELL DISTRIBUTION WIDTH 16.2 % (10.0-14.5); WHITE BLOOD COUNT 10.2 10^3/uL (4.3-11.0)
[2019-09-18 20:13] LABS: ALANINE AMINOTRANSFERASE 7 U/L (0-55); ALBUMIN 3.7 GM/DL (3.2-4.5); ALKALINE PHOSPHATASE 74 U/L (40-136); BILIRUBIN,TOTAL 0.3 MG/DL (0.1-1.0); BUN/CREATININE RATIO 8; CALCIUM 8.8 MG/DL (8.5-10.1); CARBON DIOXIDE 21 MMOL/L (21-32); CREATININE SERUM 0.98 MG/DL (0.60-1.30); GFR ESTIMATED > 60; GLUCOSE 92 MG/DL (70-105); MAGNESIUM 1.7 MG/DL (1.6-2.4); SODIUM 145 MMOL/L (135-145); TOTAL PROTEIN 6.3 GM/DL (6.4-8.2)
--- NOTE | 2019-09-18 20:20 | Diagnostic Imaging Report ---
INDICATION: Arrhythmia. EXAMINATION: Portable chest at 8:17 p.m. FINDINGS: There is a dual chamber pacemaker. Heart size and pulmonary vascularity are normal. Lungs are clear. There are no effusions or pneumothoraces. IMPRESSION: No acute abnormality in the chest. Dictated by: Dictated on workstation # [id number]
--- NOTE | 2019-09-18 20:21 | Diagnostic Imaging Report ---
INDICATION: Injury from a fall. EXAMINATION: Pelvis. FINDINGS: The patient has had proximal femoral osteotomies, bilaterally. Left acetabular prosthesis remains in place. There is no acute pelvic fracture seen. IMPRESSION: No acute abnormality of the pelvis, no change compared to 08/28/2019. Dictated by: Dictated on workstation # [id number]
--- NOTE | 2019-09-18 20:27 | Diagnostic Imaging Report ---
PROCEDURE: CT head and CT cervical spine without contrast. TECHNIQUE: Multiple contiguous axial images were obtained through the brain and cervical spine without the use of intravenous contrast. Sagittal and coronal reformations through the cervical spine were then performed. Auto Exposure Controls were utilized during the CT exam to meet ALARA standards for radiation dose reduction. INDICATION: Loss of consciousness from a fall The ventricles are normal in size, shape and position. There are no masses or hemorrhages. There are no extra-axial fluid collections. IMPRESSION: Negative CT head CT cervical spine: There is a vertebral body fusion of C5-C6. There is diffuse degenerative disc change throughout the cervical spine including atlantoaxial joint. There are degenerative changes of the uncovertebral joints. There is no fracture or malalignment. There is no prevertebral soft tissue swelling. IMPRESSION: Diffuse degenerative changes of the cervical spine but no acute abnormalities seen. Dictated by: Dictated on workstation # [id number]
[2019-09-18 20:42] LABS: CHLORIDE 112 MMOL/L (98-107); POTASSIUM 3.5 MMOL/L (3.6-5.0)
--- NOTE | 2019-09-18 21:55 | NUR ---
PT REQUESTS TO LEAVE AND NOT BE ADMITTED. Nani STEVENS APRN SPOKE WITH PT ABOUT NEED FOR ADMIT FOR OBSERVATION, PT REFUSES AFTER ADMITTING TO UNDERSTANDING NEED FOR STAY. AMA FORM SIGNED.
[2019-09-18 21:58] VITALS: BP 145/82
== END 2019-09-18 21:58 | disposition left against medical advice (07) ==
LOC: EDUNIT# 19:24 → ER 19:25 → UNDOADMOB 20:53 → 4TH 20:53
DX: S09.90XA Unspecified injury of head, initial encounter (principal); F10.10 Alcohol abuse, uncomplicated; J44.9 Chronic obstructive pulmonary disease, unspecified; I10 Essential (primary) hypertension; E11.40 Type 2 diabetes mellitus with diabetic neuropathy, unspecified; I25.2 Old myocardial infarction; I25.10 Atherosclerotic heart disease of native coronary artery without angina pectoris; I48.91 Unspecified atrial fibrillation; F32.9 Major depressive disorder, single episode, unspecified; Z87.891 Personal history of nicotine dependence; Z77.22 Contact with and (suspected) exposure to environmental tobacco smoke (acute) (chronic); Z96.643 Presence of artificial hip joint, bilateral; Z90.49 Acquired absence of other specified parts of digestive tract; Z95.810 Presence of automatic (implantable) cardiac defibrillator; Z88.5 Allergy status to narcotic agent; Z88.8 Allergy status to other drugs, medicaments and biological substances; Z91.5 Personal history of self-harm; W19.XXXA Unspecified fall, initial encounter; W22.8XXA Striking against or struck by other objects, initial encounter
CPT/HCPCS: 36415; 70450; 71045; 72125; 72170; 80053; 80320; 83735; 84484; 85025; 93005

== ENCOUNTER → 2020-07-31 | Outpatient (CLI) | payer MEDICARE, MEDICAID ==
[~2020-07-31] MED LIST changes: +ASPI-1238 PO; -ASPI-983 PO; -MORP100T37 PO; +MORP100T47 PO; -OXYC-465 PO; +OXYC-556 PO; +SIMV20TA26 PO
--- NOTE | 2020-07-31 15:54 | Diagnostic Imaging Report ---
INDICATION: Open wound around the right hip. TIME OF EXAM: 3:41 p.m. Correlation is made with prior radiograph from 09/18/2019. Surgical resection of right femoral head and neck is again noted. There are cerclage wires transfixing the proximal diaphysis of the right femur. There is some heterotopic ossification along the superior lateral aspect of the acetabulum. No bony destructive changes are seen. No fractures are identified. IMPRESSION: Chronic deformities to the right hip. This appears similar to examination from August 2019. No new abnormality is detected. Dictated by: Dictated on workstation # [id number]
== END ==
LOC: RAD 15:32
PROVIDERS: ATTEND Surgery
DX: M21.851 Other specified acquired deformities of right thigh (principal)
CPT/HCPCS: 73502

== ENCOUNTER 2020-08-05 17:49 | Observation (INO) | payer MEDICARE, MEDICAID ==
[~2020-08-05] VITALS: Ht 172.7 cm; Wt 77.3 kg
--- NOTE | 2020-08-05 18:08 | NUR ---
AFTER MULTIPLE ATTEMPTS FOR IV ACCESS, UNABLE TO OBTAIN AT THIS TIME. DR MG
[2020-08-05] MEDS ORDERED: ASPIRIN 81 MG CHEW (CHILDREN'S ASA) PO ONE (18:15)
--- NOTE | 2020-08-05 18:30 | NUR ---
CONSENT FOR CENTRAL LINE PLACEMENT SIGNED BY PT. RISKS ET BENEFITS DISCUSSED W/ PT BY DR RIGGS. PT VOICED UNDERSTANDING
[2020-08-05 18:32] LABS: BASOPHILS # (AUTO) 0.1 10^3/uL (0.0-0.1); BASOPHILS % (AUTO) 1 % (0-10); EOSINOPHILS # (AUTO) 0.1 10^3/uL (0.0-0.3); EOSINOPHILS % (AUTO) 1 % (0-10); HEMATOCRIT 37 % (40-54); HEMOGLOBIN 11.8 g/dL (13.3-17.7); LYMPHOCYTES # (AUTO) 2.3 10^3/uL (1.0-4.0); LYMPHOCYTES % (AUTO) 25 % (12-44); MEAN CORPUSCULAR HEMOGLOBIN 26 pg (25-34); MEAN CORPUSCULAR HGB CONC 32 g/dL (32-36); MEAN CORPUSCULAR VOLUME 82 fL (80-99); MEAN PLATELET VOLUME 11.2 fL (9.0-12.2); MONOCYTES # (AUTO) 0.8 10^3/uL (0.0-1.0); MONOCYTES % (AUTO) 9 % (0-12); NEUTROPHILS # (AUTO) 5.9 10^3/uL (1.8-7.8); NEUTROPHILS % (AUTO) 64 % (42-75); PLATELET COUNT 405 10^3/uL (130-400); WHITE BLOOD COUNT 9.3 10^3/uL (4.3-11.0)
--- NOTE | 2020-08-05 18:33 | NUR ---
RADIOLOGY AT BEDSIDE
[2020-08-05 18:43] LABS: CHLORIDE 104 MMOL/L (98-107); POTASSIUM 3.4 MMOL/L (3.6-5.0); SODIUM 142 MMOL/L (135-145)
[2020-08-05 18:44] LABS: INR 0.9 (0.8-1.4); PROTHROMBIN TIME PATIENT 12.8 SEC (12.2-14.7)
[2020-08-05 18:45] LABS: CALCIUM 9.2 MG/DL (8.5-10.1)
[2020-08-05 18:46] LABS: GLUCOSE 78 MG/DL (70-105); TOTAL PROTEIN 6.9 GM/DL (6.4-8.2)
[2020-08-05 18:47] LABS: BILIRUBIN,TOTAL 0.7 MG/DL (0.1-1.0); CARBON DIOXIDE 23 MMOL/L (21-32)
[2020-08-05 18:49] LABS: ALKALINE PHOSPHATASE 91 U/L (40-136); CREATININE SERUM 0.89 MG/DL (0.60-1.30); GFR ESTIMATED > 60
[2020-08-05 18:50] LABS: BUN/CREATININE RATIO 16
--- NOTE | 2020-08-05 18:50 | ED Chest Pain ---
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 Nursing Sepsis Screen: No Definite Risk Source: patient, EMS Exam Limitations: no limitations (LUMA WADE MD) History of Present Illness Date Seen by Provider: Aug 05, 2020 Time Seen by Provider: 17:49 Initial Comments This 69-year-old gentleman presents to the emergency room with complaints of central chest pain that radiates down his left arm for the past 3 weeks. It is relatively constant and he identifies no exacerbating or alleviating factors. He is notably hypertensive. He denies any lapses in his medications. He is not prescribed any medications for hypertension. He denies any cough, shortness of breath, or fever. He denies any pain in his neck. He reports some numbness in his hands bilaterally. He has history of bilateral proximal femur osteotomies and he is nonweightbearing. He is treated for chronic hip wounds receives home health care. Patient had a cardiac angiography in 2014 showing mild coronary artery disease, nonobstructive. A follow-up stress test in 2015 showed no ischemia. (LUMA WADE MD) Allergies and Home Medications Allergies Coded Allergies: codeine (Verified Allergy, Mild, HIVES...TAKES OXYCODONE & MS CONTIN AT HOME, 03/11/19) streptokinase (Verified Allergy, Unknown, 03/11/19) Home Medications Albuterol Sulfate 18 Gm Hfa.aer.ad, 2 PUFF INH Q4H PRN for SHORTNESS OF BREATH, (Reported) Clonidine HCl 0.1 Mg Tablet, 0.1 MG PO BID Prescribed by: LOWELL STEVENS on 08/31/191314 Cyclobenzaprine HCl 10 Mg Tablet, 10 MG PO TID, (Reported) Furosemide 40 Mg Tablet, 40 MG PO DAILY, (Reported) Hydroxyzine Pamoate 25 Mg Capsule, 25 MG PO Q6H PRN for ANXIETY Prescribed by: LOWELL STEVENS on 08/31/191314 Loperamide HCl 2 Mg Tablet, 2 MG PO Q4H PRN for DIARRHEA Prescribed by: LOWELL STEVENS on 08/31/191314 Morphine Sulfate 100 Mg Tablet.er, 200 MG PO BID, (Reported) TAKES 2 (100MG) TABLETS Nitroglycerin 0.4 Mg Tab.subl, 0.4 MG SL UD PRN for CHEST PAIN, (Reported) Ondansetron 4 Mg Tab.rapdis, 4 MG PO Q4H PRN for NAUSEA/VOMITING Prescribed by: LOWELL STEVENS on 08/31/19 1315 Sulfamethoxazole/Trimethoprim 1 Each Tablet, 1 EACH PO BID Prescribed by: WILFRED CAMPBELL on 03/25/19 0046 Zolpidem Tartrate 10 Mg Tablet, 10 MG PO HS, (Reported) Patient Home Medication List Home Medication List Reviewed: Yes (LUMA WADE MD) Review of Systems Review of Systems Constitutional: no symptoms reported EENTM: No Symptoms Reported Respiratory: No Symptoms Reported Cardiovascular: See HPI Gastrointestinal: No Symptoms Reported Genitourinary: No Symptoms Reported Musculoskeletal: see HPI Skin: see HPI Psychiatric/Neurological: See HPI Endocrine: No Symptoms Reported Hematologic/Lymphatic: No Symptoms Reported (LUMA WADE MD) Past Zfoxxie-Dnfjym-Yidhau Hx Past Med/Social Hx: Reviewed Nursing Past Med/Soc Hx (LUMA WADE MD) Patient Social History Alcohol Use: Denies Use Number of Drinks Today: BB Alcohol Beverage of Choice: [place] Recreational Drug Use: Yes 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 Smoking Status: Former Smoker Type Used: Cigarettes Former Smoker, Quit: May 30, 2014 2nd Hand Smoke Exposure: Yes Recent Foreign Travel: No Contact w/Someone Who Travel: No Recent Infectious Disease Expo: No Recent Hopitalizations: No Physical Abuse: No Sexual Abuse: No Mistreated: No Fear: No (LUMA WADE MD) Immunizations Up To Date Tetanus Booster (TDap): Less than 5yrs PED Vaccines UTD: No Date of Pneumonia Vaccine: Aug 02, 2018 Date of Influenza Vaccine: Jul 25, 2019 (LUMA WADE MD) Seasonal Allergies Seasonal Allergies: No (LUMA WADE MD) Past Medical History Surgeries: Yes (BILAT HIP REPLACEMENTS X 22; WOUND DEBRIDEMENTS) Abdominal, Appendectomy, Cardiac, Defibrillator, Joint Replacement, Orthopedic, Pacemaker Respiratory: Yes Asthma, COPD Currently Using CPAP: No Currently Using BIPAP: No Cardiac: Yes (PACEMAKER, CARDIAC ARREST, SELF - REPORTED [place] X 8; CHF) Atrial Fibrillation, Chronic Edema/Swelling, Coronary Artery Disease, Congenital Heart Disease, Heart Attack, Hypertension, Irregular Heartbeat Neurological: Yes Neuropathy Reproductive Disorders: No Sexually Transmitted Disease: No HIV/AIDS: No Genitourinary: Yes Neurogenic Bladder Gastrointestinal: Yes Abdominal Hernia, Chronic Constipation Musculoskeletal: Yes Arthritis, Chronic Back Pain, Fractures Endocrine: Yes Diabetes, Insulin dep HEENT: Yes Dysphagia Loss of Vision: Denies Hearing Impairment: Hard of Hearing Cancer: No Psychosocial: Yes Suicide Attempts, Depression Integumentary: Yes (recurrent wound issues) Recent Skin Changes Blood Disorders: No Adverse Reaction/Blood Tranf: Yes (HIGH FEVER AND CHILLS) (LUMA WADE MD) Family Medical History COPD Diabetes mellitus Physical Exam Vital Signs Vital Signs - First Documented 08/05/20 17:50 Temp 36.4 Pulse 92 Resp 20 B/P (MAP) 210/113 (145) Pulse Ox 99 O2 Delivery Room Air (TONJA REYNOLDS) Vital Signs Capillary Refill : Less Than 3 Seconds (LUMA WADE MD) Height, Weight, BMI Height: 5'8.00" Weight: 170lbs. 8.0oz. [id number]; 25.00 BMI Method:Stated General Appearance: No Apparent Distress, WD/WN HEENT: PERRL/EOMI, Normal ENT Inspection Neck: Normal Inspection Respiratory: Lungs Clear, Normal Breath Sounds, No Accessory Muscle Use, Other (anterior central chest tender to palpation) Cardiovascular: Regular Rate, Rhythm, No Edema, No Murmur, Normal Peripheral Pulses Gastrointestinal: Normal Bowel Sounds, Non Tender; No Distended Extremity: Non Tender, Pedal Edema, Swelling Neurologic/Psychiatric: Alert, Oriented x3 Skin: Normal Color, Warm/Dry (LUMA WADE MD) Procedures/Interventions Lumen: triple Central Line Procedure: betadine prep, sterile drapes applied, sterile dressing applied Position: internal jugular (R) Anesthesia: Lidocaine Volume Anesthetic (ccs): 3 Complications: none Post Position: sutured, good blood return, position confirmed w/ CXR Risks, benefits and alternatives were discussed with the patient and he consented to the procedure. He was positioned in the usual format and using the usual sterile garment and drapes the patient was dressed out. The skin was thoroughly cleaned with the supplied chlorhexidine prep. After the prep and dried a sterile drape was placed. The 20 cm 7 [place] triple-lumen catheter was flushed with sterile saline. We used ultrasound guidance to pass the introducer needle into the right internal jugular without difficulty. A guidewire was placed easily without difficulty. No ectopy was seen on the monitor. The supplied 11 blade scalpel was used to make a 2 mm incision at the inferior portion of the introducer needle. The introducer needle was replaced with the dilator. The dilator was taken out and the patient had the central lumen of the triple lumen catheter threaded over the guidewire and placed at 14 cm. The guidewire was removed and the triple-lumen catheter was stitched in place using the supplied braided stitch at 2 different points. The catheter withdrew blood and flushed easily. A sterile dressing was placed over the catheter. The patient tolerated the procedure well. A chest x-ray was obtained that demonstrated no pneumothorax and a new interval central catheter over the shadow of the right internal jugular down the superior vena cava and terminating just proximal to the right atria. (TONJA REYNOLDS) Progress/Results/Core Measures Results/Orders Lab Results Laboratory Tests Test 08/05/20 18:00 08/05/20 18:21 Range/Units B-Type Natriuretic Peptide 314.3 H <100.0 PG/ML White Blood Count 9.3 4.3-11.0 10^3/uL Red Blood Count 4.55 4.30-5.52 10^6/uL Hemoglobin 11.8 L 13.3-17.7 g/dL Hematocrit 37 L 40-54 % Mean Corpuscular Volume 82 80-99 fL Mean Corpuscular Hemoglobin 26 25-34 pg Mean Corpuscular Hemoglobin Concent 32 32-36 g/dL Red Cell Distribution Width 18.9 H 10.0-14.5 % Platelet Count 405 H 130-400 10^3/uL Mean Platelet Volume 11.2 9.0-12.2 fL Immature Granulocyte % (Auto) 0 % Neutrophils (%) (Auto) 64 42-75 % Lymphocytes (%) (Auto) 25 12-44 % Monocytes (%) (Auto) 9 0-12 % Eosinophils (%) (Auto) 1 0-10 % Basophils (%) (Auto) 1 0-10 % Neutrophils # (Auto) 5.9 1.8-7.8 10^3/uL Lymphocytes # (Auto) 2.3 1.0-4.0 10^3/uL Monocytes # (Auto) 0.8 0.0-1.0 10^3/uL Eosinophils # (Auto) 0.1 0.0-0.3 10^3/uL Basophils # (Auto) 0.1 0.0-0.1 10^3/uL Immature Granulocyte # (Auto) 0.0 0.0-0.1 10^3/uL Prothrombin Time 12.8 12.2-14.7 SEC INR Comment 0.9 0.8-1.4 Activated Partial Thromboplast Time 26 24-35 SEC Sodium Level 142 135-145 MMOL/L Potassium Level 3.4 L 3.6-5.0 MMOL/L Chloride Level 104 98-107 MMOL/L Carbon Dioxide Level 23 21-32 MMOL/L Anion Gap 15 H 5-14 MMOL/L Blood Urea Nitrogen 14 7-18 MG/DL Creatinine 0.89 0.60-1.30 MG/DL Estimat Glomerular Filtration Rate > 60 BUN/Creatinine Ratio 16 Glucose Level 78 70-105 MG/DL Calcium Level 9.2 8.5-10.1 MG/DL Corrected Calcium 9.2 8.5-10.1 MG/DL Magnesium Level 1.4 L 1.6-2.4 MG/DL Total Bilirubin 0.7 0.1-1.0 MG/DL Aspartate Amino Transf (AST/SGOT) 27 5-34 U/L Alanine Aminotransferase (ALT/SGPT) 14 0-55 U/L Alkaline Phosphatase 91 40-136 U/L Myoglobin 81.4 10.0-92.0 NG/ML Troponin I < 0.028 <0.028 NG/ML Total Protein 6.9 6.4-8.2 GM/DL Albumin 4.0 3.2-4.5 GM/DL (TONJA REYNOLDS) Medications Given in ED Current Medications Medications Dose Ordered Sig/Carl Route Start Time Stop Time Status Last Admin Dose Admin Aspirin 324 mg ONCE ONCE PO 08/05/20 18:15 08/05/20 18:16 DC 08/05/20 18:18 324 MG (TONJA REYNOLDS) Vital Signs/I&O 08/05/20 17:50 Temp 36.4 Pulse 92 Resp 20 B/P (MAP) 210/113 (145) Pulse Ox 99 O2 Delivery Room Air (ONEILTONJA Nam) Blood Pressure Mean: 145 Progress Progress Note #1: Time: 19:26 Progress Note Patient remains markedly hypertensive. The patient had very poor venous access. Dr. Reynolds placed a right IJ. He tolerated the procedure well. Nitroglycerin will now be administered. If pain does not respond to nitroglycerin, we will try GI cocktail and Toradol. Original cardiac workup was negative. A repeat troponin at 2 hours has been ordered. Progress Note #2: Progress Note Patient did not have any pain relief with non-opioid treatments. Pain did completely resolved with morphine. Patient disclosed that he lost his high dose morphine a few days ago so opioid withdrawal may he a contributing factor. He did develop shortness of breath. Wheezing was heard on re-evaluation. An inhaler was administered. Since his last angiography was 5 years ago and patie and he remained persistently hypertensive after treatment, admission was deemed appropriate. Treatment options were discussed with Dr. Trevino. Patient was admitted. Clonidine, Lasix and Lopressor were given in the ER. (LUMA WADE MD) Initial ECG Impression Date: Aug 05, 2020 Initial ECG Impression Time: 17:55 Initial ECG Rate: 76 Initial ECG Rhythm: Normal Sinus Comment Normal sinus rhythm with no ST elevation or depression. No abnormal intervals or axis deviation. (LUMA WADE MD) Diagnostic Imaging Diagonstic Imaging: Xray Plain Films/CT/US/NM/MRI: chest Comments Chest x-ray viewed by me and report reviewed. See report below: NAME: NI ESPINOZA [facility] REC#: [id number] PT STATUS: REG ER : 1950 PHYSICIAN: LUMA WADE MD ADMIT DATE: 08/05/20/ER Draft Date of Exam:08/05/20 CHEST 1 VIEW, AP/PA ONLY INDICATION: Chest pain, cardiac pacemaker. COMPARISON: 09/18/2019. EXAMINATION: Single view of the chest was obtained. FINDINGS: Stable cardiac enlargement. The lungs are clear. There is no pneumothorax, effusion or focal infiltrate. Pacemaker is stable. Osseous structures are age-appropriate. IMPRESSION: Stable cardiac enlargement without pulmonary edema or acute infiltrate. Dictated on workstation # [id number] Dict: 08/05/201907 Trans: 08/05/201911 [facility] [id number] Interpreted by: CURTIS LAMAR (LUMA WADE MD) Departure Communication (Admissions) Time/Spoke to Admitting Phy: 22:20 Dr. Sanz Time/Spoke to Consulting Phy: 22:25 Dr. Trevino (LUMA WADE MD) Impression Primary Impression: Chest pain Qualified Codes: R07.9 - Chest pain, unspecified Additional Impressions: Hypertension Qualified Codes: I10 - Essential (primary) hypertension Edema Qualified Codes: R60.9 - Edema, unspecified Wheezing Disposition: ADMITTED INPATIENT Condition: Improved Admissions Decision to Admit Reason: Admit from ER (General) Decision to Admit/Date: Aug 06, 2020 Time/Decision to Admit Time: 22:15 (LUMA WADE MD) Departure-Patient Inst. Referrals: OLEGARIO ROSENTHAL MD (PCP/Family) Primary Care Physician LUMA WADE MD Aug 05, 2020 18:50 TONJA REYNOLDS Aug 05, 2020 19:10
[2020-08-05 18:52] LABS: ALANINE AMINOTRANSFERASE 14 U/L (0-55); MAGNESIUM 1.4 MG/DL (1.6-2.4)
--- NOTE | 2020-08-05 19:02 | NUR ---
CENTRAL LINE PLACED BY DR RIGGS W/O INCIDENT. PT TOLERATED WELL
--- NOTE | 2020-08-05 19:09 | NUR ---
REPORT TO THELMA SHAH
--- NOTE | 2020-08-05 19:13 | Diagnostic Imaging Report ---
INDICATION: Chest pain, cardiac pacemaker. COMPARISON: 09/18/2019. EXAMINATION: Single view of the chest was obtained. FINDINGS: Stable cardiac enlargement. The lungs are clear. There is no pneumothorax, effusion or focal infiltrate. Pacemaker is stable. Osseous structures are age-appropriate. IMPRESSION: Stable cardiac enlargement without pulmonary edema or acute infiltrate. Dictated by: Dictated on workstation # [id number]
[2020-08-05] MEDS: NITROGLYCERIN 0.4 MG SL TABS BTL 25'S SL PRN ×3 (19:21→19:47)
[2020-08-05] MEDS ORDERED: FAMOTIDINE 20MG/2ML IV (PEPCID) IV STA (19:23)
[2020-08-05] MEDS ORDERED: LIDOCAINE 2% VISCOUS 15 ML UDC PO ONE (19:30)
[2020-08-05] MEDS ORDERED: KETOROLAC 30 MG/ML VIAL IVP ONE (19:30)
[2020-08-05] MEDS ORDERED: ANTACID SUSP 30 ML UDC (MYLANTA) PO ONE (19:30)
--- NOTE | 2020-08-05 19:47 | Diagnostic Imaging Report ---
INDICATION: Central venous catheter placement.. COMPARISON: 08/05/2020 at 6:33 p.m. EXAMINATION: Single view of the chest was obtained. FINDINGS: Right IJ catheter in the SVC. There is no pneumothorax. Aeration is unchanged. IMPRESSION: No post procedure pneumothorax. Dictated by: Dictated on workstation # [id number]
[2020-08-05] MEDS ORDERED: morphine INJ 10 MG/ML 1ML (SYR OR VIAL) IVP STA (20:49)
[2020-08-05] MEDS ORDERED: RT-ALBUTEROL INHALER HFA (VENTOLIN HFA) 18 GM IH SCH (22:00)
[2020-08-05] MEDS ORDERED: cloNIDine 0.1 MG (CATAPRES) TAB PO ONE (22:30)
[2020-08-05] MEDS ORDERED: meTOprolol 5 MG/5 ML (LOPRESSOR) VIAL IV ONE (22:30)
[2020-08-05] MEDS ORDERED: FUROSEMIDE 40 MG/4 ML INJ (LASIX) IVP ONE (22:30)
[2020-08-05] MEDS ORDERED: ONDANSETRON 4 MG/2 ML (SDV) Z0FRAN IVP PRN (23:45)
[2020-08-05] MEDS ORDERED: RT-ALBUTEROL INHALER HFA (VENTOLIN HFA) 18 GM IH PRN (23:45)
[2020-08-05] MEDS ORDERED: meTOprolol 5 MG/5 ML (LOPRESSOR) VIAL IV PRN (23:45)
[2020-08-05 23:50] VITALS: BP 198/106
[2020-08-06] VITALS (7 sets, daily range): BP systolic 110–187; BP diastolic 60–97
[2020-08-06] MEDS: morphine INJ 10 MG/ML 1ML (SYR OR VIAL) IVP PRN ×5 (01:04→22:05)
[2020-08-06] MEDS: ENOXAPARIN 40 MG/0.4 ML (LOVENOX) SYR SC SCH ×2 (01:06→20:33)
[2020-08-06 05:46] LABS: BASOPHILS # (AUTO) 0.1 10^3/uL (0.0-0.1); BASOPHILS % (AUTO) 1 % (0-10); EOSINOPHILS # (AUTO) 0.2 10^3/uL (0.0-0.3); EOSINOPHILS % (AUTO) 2 % (0-10); HEMATOCRIT 32 % (40-54); HEMOGLOBIN 10.3 g/dL (13.3-17.7); LYMPHOCYTES # (AUTO) 3.1 10^3/uL (1.0-4.0); LYMPHOCYTES % (AUTO) 29 % (12-44); MEAN CORPUSCULAR HEMOGLOBIN 26 pg (25-34); MEAN CORPUSCULAR HGB CONC 32 g/dL (32-36); MEAN CORPUSCULAR VOLUME 82 fL (80-99); MEAN PLATELET VOLUME 11.6 fL (9.0-12.2); MONOCYTES # (AUTO) 1.1 10^3/uL (0.0-1.0); MONOCYTES % (AUTO) 10 % (0-12); NEUTROPHILS # (AUTO) 6.2 10^3/uL (1.8-7.8); NEUTROPHILS % (AUTO) 58 % (42-75); PLATELET COUNT 350 10^3/uL (130-400); WHITE BLOOD COUNT 10.8 10^3/uL (4.3-11.0)
[2020-08-06 06:04] LABS: CHLORIDE 103 MMOL/L (98-107); POTASSIUM 3.4 MMOL/L (3.6-5.0); SODIUM 142 MMOL/L (135-145)
[2020-08-06 06:05] LABS: CALCIUM 8.5 MG/DL (8.5-10.1); GLUCOSE 80 MG/DL (70-105)
[2020-08-06 06:07] LABS: CARBON DIOXIDE 27 MMOL/L (21-32)
[2020-08-06 06:09] LABS: CREATININE SERUM 0.92 MG/DL (0.60-1.30); GFR ESTIMATED > 60
[2020-08-06 06:10] LABS: BUN/CREATININE RATIO 16
[2020-08-06 07:11] LABS: TRIGLYCERIDES 41 MG/DL (<150); VLDL CHOLESTEROL 8 MG/DL (5-40)
[2020-08-06] MEDS ORDERED: FLU QUAD HIGH DOSE 240 MCG/0.7 ML 2020-21 (FLUZONE) IM ONE (07:15)
[2020-08-06 07:16] LABS: CHOLESTEROL 168 MG/DL (< 200)
[2020-08-06 07:17] LABS: HDL CHOLESTEROL 85 MG/DL (40-60)
--- NOTE | 2020-08-06 08:27 | Consultation-Cardiology ---
HPI-Cardiology Cardiology Consultation: Date of Consultation 08/06/20 Time Seen by a Provider: 08:20 Date of Admission Attending Physician Kiki Ying MD Admitting Physician Uriel Cardona MD Consulting Physician Primary Hand Sole Sewer: Eliza Austin MD HPI: Chief Complaint: Chest pain Mr. Jalloh is a 69 year old male who has been admitted to [facility] from the ED with c/o CP. He reports chest pressure which started at home while sitting, mid- sternal with radiation to left arm. Reports it as constant for several hours. States no relieving factors. He reports he received nitro in the ED and it did not provide any relief. He reports he continues to have some chest pressure this morning. He reports nausea and diaphoresis yesterday when pain started. He reports SOB yesterday, but that has improved. He reports in the past when he has had chest pain he takes one of his pain pills and the pain improves. He reports having a feeling of an occ skipped beat. He reports chronic bilat hip pain. He states he has had several hip surgeries and open wounds to his hips bilat for several years. He reports he was seeing wound care, but stopped going recently. He reports chronic bilat leg swelling which is unchanged. Review of Systems-Cardiology Review of Systems Constitutional: No chills, No fever Eyes: No vision change Ears/Nose/Throat: No epistaxis, No recent hearing loss Respiratory: As described under HPI Cardiovascular: As described under HPI Gastrointestinal: No constipation, No diarrhea; nausea; No vomiting Genitourinary: No dysuria, No hematuria Musculoskeletal: As describe under HPI Skin: As described under HPI Psychiatric/Neurological: No seizure, No focal weakness Hematologic: No bleeding abnormalities RVF-Ipdhul-Yvmyoz Hx Patient Social History Alcohol Use: Denies Use Recreational Drug Use: Yes 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 Family Medical History Family Medical History: He reports a younger and older brother, both in their 60's, with CAD. Family History: COPD Diabetes mellitus Allergies and Home Medications Allergies Coded Allergies: codeine (Verified Allergy, Mild, HIVES...TAKES OXYCODONE & MS CONTIN AT HOME, 03/11/19) streptokinase (Verified Allergy, Unknown, 03/11/19) Home Medications Albuterol Sulfate 1 Puff Puff, 2 PUFF INH Q6H PRN for SHORTNESS OF BREATH, (Reported) Baclofen 10 Mg Tablet, 10 MG PO TID PRN for MUSCLE SPASMS, (Reported) Clonidine HCl 0.1 Mg Tablet, 0.1 MG PO BID PRN for BLOOD PRESSURE, (Reported) Furosemide 40 Mg Tablet, 40 MG PO DAILY PRN for SWELLING, (Reported) Morphine Sulfate 200 Mg Tablet.er, 200 MG PO BID, (Reported) Naloxegol Oxalate 25 Mg Tablet, 25 MG PO DAILY, (Reported) Oxycodone HCl 15 Mg Tablet, 15 MG PO 1200, (Reported) Sulfamethoxazole/Trimethoprim 1 Each Tablet, 1 EA PO BID, (Reported) FILLED 07-31-2020 #20/ DAY SUPPLY Zolpidem Tartrate 10 Mg Tablet, 10 MG PO HS PRN for SLEEP, (Reported) Physical Exam-Cardiology Physical Exam Vital Signs/I&O 08/07/20 08/07/20 08/07/20 08/07/20 00:00 00:00 01:00 03:10 Temp 36.6 Pulse 78 66 Resp 16 B/P (MAP) 119/62 (81) Pulse Ox 95 92 94 O2 Delivery Room Air Room Air Room Air FiO2 21 08/07/20 08/07/20 08/07/20 08/07/20 04:00 04:30 06:36 06:39 Temp 36.7 Pulse 72 69 Resp 14 B/P (MAP) 131/89 (103) Pulse Ox 94 96 97 O2 Delivery Room Air Room Air Room Air 08/07/20 08/07/20 08:00 09:00 Temp 36.2 Pulse 72 Resp 16 B/P (MAP) 155/67 (96) Pulse Ox 94 O2 Delivery Room Air Room Air 08/07/20 00:00 Intake Total 875 ml Output Total 450 ml Balance 425 ml Capillary Refill : Less Than 3 Seconds Constitutional: AAO x 3, well-developed, well-nourished HEENT: PERRL, hearing is well preserved, oral hygience is good Neck: No carotid bruit; carotid pulses are 2 + bilaterally Respiratory: No accessory muscle use, No respiratory distress; chest expansion is symmetric, chest is bilaterally symmetric, lungs clear to auscultation Cardiovascular: regular rate-rhythm; No JVD; S1 and S2 Gastrointestinal: No tender; soft, round, audible bowel sounds Extremities: other (mod bilat LE swelling) Neurologic/Psychiatric: grossly intact (moves all extremities) Skin: No rash on exposed areas, No ulcerations on exposed areas (reported wounds to hips not visulized - wearing jeans) Data Review Labs Laboratory Tests 08/07/20 05:40: White Blood Count 8.3, Red Blood Count 3.73L, Hemoglobin 9.7L, Hematocrit 31L, Mean Corpuscular Volume 83, Mean Corpuscular Hemoglobin 26, Mean Corpuscular Hemoglobin Concent 31L, Red Cell Distribution Width 18.8H, Platelet Count 306, Mean Platelet Volume 11.4, Sodium Level 140, Potassium Level 3.4L, Chloride Level 103, Carbon Dioxide Level 28, Anion Gap 9, Blood Urea Nitrogen 17, Creatinine 1.08, Estimat Glomerular Filtration Rate > 60, BUN/Creatinine Ratio 16, Glucose Level 104, Calcium Level 8.1L Radiology NAME: NI JALLOH MED REC#: [id number] PT STATUS: REG ER : 1950 PHYSICIAN: TONJA RIGGS MD ADMIT DATE: 08/05/20/ER Signed Date of Exam:08/05/20 CHEST 1 VIEW, AP/PA ONLY INDICATION: Central venous catheter placement.. COMPARISON: 08/05/2020 at 6:33 p.m. EXAMINATION: Single view of the chest was obtained. FINDINGS: Right IJ catheter in the SVC. There is no pneumothorax. Aeration is unchanged. IMPRESSION: No post procedure pneumothorax. Dictated by: Dictated on workstation # [id number] Dict: 08/05/201942 Trans: 08/05/202001 [facility] [id number] Interpreted by: CURTIS LAMAR Electronically signed by: CURTIS LAMAR 08/05/202001 ECG Impression ECG Initial ECG Rhythm: Normal Sinus A/P-Cardiology Assessment/Admission Diagnosis Chest pain of undetermined etiology - no evidence of ACS H/O coronary artery disease, diffuse atherosclerotic plaques noted during multiple cardiac catheterization, nonobstructive disease, had cardiac catheterization done in 2012, 2015 Stress test in 2015 showing no ischemia or infarction by Dr. Trevino Echocardiogram of Jun 24, [address] Trevino showed LVEF 60-65% Hypertension Hyperlipidemia History of dual-chamber pacemaker due to sinus node dysfunction, he has history of sinus pause for 3.2 second. Last interrogation was done April [address] Trevino showing device functioning normally History of avascular necrosis of the hip, underwent multiple hip surgeries in the past and hip replacements. History of gastroesophageal reflux disease, COPD. Polysubstance use for pain control Previous history of tobaccoism Discussion and Recomendations Chest pain of undetermined etiology with no evidence of ACS Echocardiogram to eval structure and function Consider MPI to eval perfusion Management of bilat hip wounds with medical services BP has improved Monitor lab closely Replace electrolytes as indicated We would like to thank medical services for this consult Clinical Quality Measures AMI/AHF: ASA po Prior to arrival: No DVT/VTE Risk/Contraindication: Risk Factor Score Per Nursin RFS Level Per Nursing on Admit: 4+=Very High KAREN STEINBERG Aug 06, 2020 08:27
[2020-08-06] MEDS ORDERED: RT-ALBUTEROL INHALER HFA (VENTOLIN HFA) 18 GM IH PRN (08:30)
[2020-08-06] MEDS: morphine IMMEDIATE RELEASE 15 MG TABLET PO SCH ×3 (08:45→20:33)
[2020-08-06] MEDS: ASPIRIN E.C. 81 MG (ECOTRIN) TAB PO SCH (08:46)
[2020-08-06] MEDS: cloNIDine 0.1 MG (CATAPRES) TAB PO SCH ×2 (08:46→20:33)
[2020-08-06] MEDS: TRIM/SULFAMETH 160/800 (SEPTRA DS) TAB PO SCH ×2 (08:46→16:16)
[2020-08-06] MEDS ORDERED: FAMOTIDINE 20 MG (PEPCID) TABLET PO SCH (09:00)
[2020-08-06] MEDS ORDERED: PANTOPRAZOLE 40 MG (PROTONIX) TAB PO NR (09:15)
[2020-08-06] MEDS ORDERED: KCL 20 MEQ TAB (K-DUR) PO NR (09:15)
[2020-08-06] MEDS ORDERED: REGADENOSON 0.4 MG/5 ML SYR (LEXISCAN) IV ONE (09:15)
--- NOTE | 2020-08-06 09:42 | History & Physical ---
HPI History of Present Illness: 69 yo male came to ER due to chest pain that felt like pressure started yesterday afternoon, was also short of breath and sweaty. Has pacemaker for bradycardia, no history of RI or stent. Source: patient Date seen by provider: Aug 06, 2020 Time Seen by Provider: 09:39 Attending Physician Aris Francis MD PCP Uriel Cardona MD Consult Date of Admission Aug 05, 2020 at 23:45 Home Medications Home Medications Reviewed patient Home Medication Reconciliation performed by pharmacy medication reconciliations metrology technician and/or nursing. Patients Allergies have been reviewed. 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 Smoking Status: Former Smoker (quit in 2010) Type Used: Cigarettes 2nd Hand Smoke Exposure: Yes Recent Foreign Travel: No Contact w/other who traveled: No Recent Hopitalizations: No Recent Infectious Disease Expo: No Immunizations Up To Date Tetanus Booster (TDap): Less than 5yrs Date of Pneumonia Vaccine: Jul 03, 2018 Date of Influenza Vaccine: Jul 25, 2019 Past Medical History PMHx: avascular necrosis of multiple joints Asthma Chronic nonhealing hip wounds SurgHx: 11 bilateral hip surgeries, removal of hardware is nonambulatory 3 back surgeries Neck surgery Bilateral carpal tunnel release Bilateral cubital tunnel release Family Medical History Other Significan Family Hx: Adopted, unknown FH Review of Systems ([facility]) Constitutional: No fever EENTM: No nose congestion, No throat pain Respiratory: No cough; short of breath Cardiovascular: see HPI, edema Gastrointestinal: No diarrhea, No nausea, No vomiting Genitourinary: No dysuria Musculoskeletal: joint pain Skin: No rash Reviewed Test Results Reviewed Test Results Lab Laboratory Tests Test 08/05/20 18:00 08/05/20 18:21 08/05/20 20:30 08/06/20 05:19 Range/Units B-Type Natriuretic Peptide 314.3 H 255.2 H <100.0 PG/ML White Blood Count 9.3 10.8 4.3-11.0 10^3/uL Red Blood Count 4.55 3.91 L 4.30-5.52 10^6/uL Hemoglobin 11.8 L 10.3 L 13.3-17.7 g/dL Hematocrit 37 L 32 L 40-54 % Mean Corpuscular Volume 82 82 80-99 fL Mean Corpuscular Hemoglobin 26 26 25-34 pg Mean Corpuscular Hemoglobin Concent 32 32 32-36 g/dL Red Cell Distribution Width 18.9 H 18.7 H 10.0-14.5 % Platelet Count 405 H 350 130-400 10^3/uL Mean Platelet Volume 11.2 11.6 9.0-12.2 fL Immature Granulocyte % (Auto) 0 0 % Neutrophils (%) (Auto) 64 58 42-75 % Lymphocytes (%) (Auto) 25 29 12-44 % Monocytes (%) (Auto) 9 10 0-12 % Eosinophils (%) (Auto) 1 2 0-10 % Basophils (%) (Auto) 1 1 0-10 % Neutrophils # (Auto) 5.9 6.2 1.8-7.8 10^3/uL Lymphocytes # (Auto) 2.3 3.1 1.0-4.0 10^3/uL Monocytes # (Auto) 0.8 1.1 H 0.0-1.0 10^3/uL Eosinophils # (Auto) 0.1 0.2 0.0-0.3 10^3/uL Basophils # (Auto) 0.1 0.1 0.0-0.1 10^3/uL Immature Granulocyte # (Auto) 0.0 0.0 0.0-0.1 10^3/uL Prothrombin Time 12.8 12.2-14.7 SEC INR Comment 0.9 0.8-1.4 Activated Partial Thromboplast Time 26 24-35 SEC Sodium Level 142 142 135-145 MMOL/L Potassium Level 3.4 L 3.4 L 3.6-5.0 MMOL/L Chloride Level 104 103 98-107 MMOL/L Carbon Dioxide Level 23 27 21-32 MMOL/L Anion Gap 15 H 12 5-14 MMOL/L Blood Urea Nitrogen 14 15 7-18 MG/DL Creatinine 0.89 0.92 0.60-1.30 MG/DL Estimat Glomerular Filtration Rate > 60 > 60 BUN/Creatinine Ratio 16 16 Glucose Level 78 80 70-105 MG/DL Calcium Level 9.2 8.5 8.5-10.1 MG/DL Corrected Calcium 9.2 8.5-10.1 MG/DL Magnesium Level 1.4 L 1.6-2.4 MG/DL Total Bilirubin 0.7 0.1-1.0 MG/DL Aspartate Amino Transf (AST/SGOT) 27 5-34 U/L Alanine Aminotransferase (ALT/SGPT) 14 0-55 U/L Alkaline Phosphatase 91 40-136 U/L Myoglobin 81.4 10.0-92.0 NG/ML Troponin I < 0.028 < 0.028 < 0.028 <0.028 NG/ML Total Protein 6.9 6.4-8.2 GM/DL Albumin 4.0 3.2-4.5 GM/DL C-Reactive Protein High Sensitivity 0.34 0.00-0.50 MG/DL Triglycerides Level 41 <150 MG/DL Cholesterol Level 168 < 200 MG/DL LDL Cholesterol Direct 74 1-129 MG/DL VLDL Cholesterol 8 5-40 MG/DL HDL Cholesterol 85 H 40-60 MG/DL Radiology NAME: NI ESPINOZA MED REC#: [id number] PT STATUS: REG ER : 1950 PHYSICIAN: TONJA RIGGS MD ADMIT DATE: 08/05/20/ER Signed Date of Exam:08/05/20 CHEST 1 VIEW, AP/PA ONLY INDICATION: Central venous catheter placement.. COMPARISON: 08/05/2020 at 6:33 p.m. EXAMINATION: Single view of the chest was obtained. FINDINGS: Right IJ catheter in the SVC. There is no pneumothorax. Aeration is unchanged. IMPRESSION: No post procedure pneumothorax. Dictated by: Dictated on workstation # [id number] Dict: 08/05/20 194 Trans: 08/05/202001 PJE [id number] Interpreted by: CURTIS LAMAR Electronically signed by: CURTIS LAMAR 08/05/202001 Physical Exam-([facility]) Physical Exam Vital Signs VS - Last 72 Hours, by Label 08/05/20 08/05/20 08/05/20 08/05/20 17:50 23:04 23:40 23:50 Temp 36.4 37.0 36.9 Pulse 92 76 82 66 Resp 20 19 20 B/P (MAP) 210/113 (145) 201/102 198/106 Pulse Ox 99 95 99 O2 Delivery Room Air Room Air Room Air 08/05/20 08/06/20 08/06/20 08/06/20 23:59 00:00 00:00 00:00 Temp 36.76870 36.6 Pulse 56 55 Resp 16 16 B/P (MAP) 187/97 187/97 (127) Pulse Ox 96 97 98 97 O2 Delivery Room Air Room Air Room Air 08/06/20 08/06/20 08/06/20 08/06/20 00:38 01:00 04:00 04:00 Temp 36.8 Pulse 66 60 Resp 18 B/P (MAP) 156/86 (109) Pulse Ox 96 98 97 O2 Delivery Room Air Room Air Room Air FiO2 21 08/06/20 08/06/20 08/06/20 08/06/20 06:45 07:14 08:00 08:00 Temp 36.9 Pulse 64 75 Resp 18 B/P (MAP) 130/60 (83) Pulse Ox 96 96 97 O2 Delivery Room Air Room Air Room Air FiO2 21 08/06/20 08/06/20 08/06/20 08/06/20 08:49 09:00 11:48 12:00 Temp 37.0 Pulse 65 Resp 19 B/P (MAP) 145/67 (93) 110/80 (90) Pulse Ox 97 97 96 O2 Delivery Room Air Room Air Room Air Room Air 08/06/20 08/06/20 08/06/20 08/06/20 14:57 16:00 16:00 18:41 Temp 36.8 Pulse 75 Resp 20 B/P (MAP) 155/90 (111) Pulse Ox 93 98 96 96 O2 Delivery Room Air Room Air Room Air Room Air FiO2 21 21 08/06/20 19:00 Pulse 83 Capillary Refill : Less Than 3 Seconds General Appearance: no apparent distress Respiratory: lungs clear, normal breath sounds Cardiovascular: regular rate, rhythm, no murmur Gastrointestinal: normal bowel sounds, non tender, soft Extremities: pedal edema Neurologic/Psychiatric: alert, normal mood/affect Assessment/Plan Assessment/Plan Admission Status: Observation (1) Chest pain Status: Acute Assessment & Plan: Has been quite some time since last cardiac testing. Appreciate Cardiology recommendations. Troponin okay, BNP mildly elevated and trending down, echo and stress pending. Qualifiers: Qualified Codes: R07.9 - Chest pain, unspecified (2) Chronic wound of extremity Status: Chronic Assessment & Plan: Hip wounds per patient report, deferred eval to Dr. Swenson per patient request. Appreciate Dr. Swenson's assistance. (3) Chronic pain Status: Chronic Assessment & Plan: Resume home morphine. Qualifiers: Qualified Codes: G89.4 - Chronic pain syndrome (4) COPD (chronic obstructive pulmonary disease) Status: Chronic Assessment & Plan: Albuterol prn (5) Avascular necrosis Status: Chronic (6) Coronary artery disease Status: Chronic (7) Chronic narcotic use Status: Chronic Assessment & Plan: On markedly high dose morphine, however, given high dose chronic use, anticipate withdrawal if not restarted, will resume home morphine. (8) Edema Status: Chronic Assessment & Plan: On home lasix prn, will use as needed. Qualifiers: Qualified Codes: R60.9 - Edema, unspecified (9) Hypertension Status: Acute Qualifiers: Qualified Codes: I10 - Essential (primary) hypertension (10) DVT prophylaxis Status: Acute Assessment & Plan: Enoxaparin Clinical Quality Measures AMI/AHF: ASA po Prior to arrival: No DVT/VTE Risk/Contraindication: Risk Factor Score Per Nursin RFS Level Per Nursing on Admit: 4+=Very High ARIS FRANCIS MD Aug 06, 2020 09:42
--- NOTE | 2020-08-06 11:14 | Consultation-Cardiology ---
HPI-Cardiology Cardiology Consultation: Date of Consultation 08/06/20 Time Seen by a Provider: 10:40 Date of Admission Attending Physician Kiki Ying MD Admitting Physician Ureil Cardona MD Consulting Physician JILLIAN LOPEZ MD, MA, FACP, FACC, FSCAI, CCDS Primary transport coordinator: Dr Trevino HPI: Chief Complaint: CC: Chest pain HPI Mr. Jalloh is a 69 year old male who has been admitted to [facility] from the ED with c/o CP. He reports chest pressure which started at home while sitting, mid- sternal with radiation to left arm. Reports it as constant for several hours. States no relieving factors other than pain meds. He reports he received nitro in the ED and it did not provide any relief. He reports he continues to have some chest pressure this morning. He reports nausea and diaphoresis yesterday when pain started. He reports SOB yesterday, but that has improved. He reports in the past when he has had chest pain he takes one of his pain pills and the pain improves. He reports having a feeling of an occ skipped beat. He reports chronic bilat hip pain. He states he has had several hip surgeries and open wounds to his hips bilat for several years. He reports he was seeing wound care, but stopped going recently. He reports chronic bilat leg swelling which is unchanged. Review of Systems-Cardiology Review of Systems Constitutional: No chills, No fever Eyes: No vision change Ears/Nose/Throat: No epistaxis, No recent hearing loss Respiratory: As described under HPI Cardiovascular: As described under HPI Gastrointestinal: No constipation, No diarrhea; nausea; No vomiting Genitourinary: No dysuria, No hematuria Musculoskeletal: As describe under HPI Skin: As described under HPI Psychiatric/Neurological: No seizure, No focal weakness Hematologic: No bleeding abnormalities XKL-Llkaia-Cvnoih Hx Patient Social History Alcohol Use: Denies Use Recreational Drug Use: Yes 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 Family Medical History Family Medical History: He reports a younger and older brother, both in their 60's, with CAD. Family History: COPD Diabetes mellitus Allergies and Home Medications Allergies Coded Allergies: codeine (Verified Allergy, Mild, HIVES...TAKES OXYCODONE & MS CONTIN AT HOME, 03/11/19) streptokinase (Verified Allergy, Unknown, 03/11/19) Home Medications Albuterol Sulfate 18 Gm Hfa.aer.ad, 2 PUFF INH Q4H PRN for SHORTNESS OF BREATH, (Reported) Clonidine HCl 0.1 Mg Tablet, 0.1 MG PO BID Prescribed by: LOWELL STEVENS on 08/31/19 1315 Cyclobenzaprine HCl 10 Mg Tablet, 10 MG PO TID, (Reported) Furosemide 40 Mg Tablet, 40 MG PO DAILY, (Reported) Hydroxyzine Pamoate 25 Mg Capsule, 25 MG PO Q6H PRN for ANXIETY Prescribed by: LOWELL STEVENS on 08/31/19 1315 Loperamide HCl 2 Mg Tablet, 2 MG PO Q4H PRN for DIARRHEA Prescribed by: LOWELL STEVENS on 08/31/19 1315 Morphine Sulfate 100 Mg Tablet.er, 200 MG PO BID, (Reported) TAKES 2 (100MG) TABLETS Nitroglycerin 0.4 Mg Tab.subl, 0.4 MG SL UD PRN for CHEST PAIN, (Reported) Ondansetron 4 Mg Tab.rapdis, 4 MG PO Q4H PRN for NAUSEA/VOMITING Prescribed by: LOWELL STEVENS on 08/31/19 1315 Sulfamethoxazole/Trimethoprim 1 Each Tablet, 1 EACH PO BID Prescribed by: WILFRED CAMPBELL on 03/25/19 0046 Zolpidem Tartrate 10 Mg Tablet, 10 MG PO HS, (Reported) Patient Home Medication List Home Medication List Reviewed: Yes Physical Exam-Cardiology Physical Exam Vital Signs/I&O 08/05/20 08/05/20 08/05/20 08/06/20 23:40 23:50 23:59 00:00 Temp 36.9 36.76345 Pulse 82 66 56 Resp 20 16 B/P (MAP) 198/106 187/97 Pulse Ox 99 96 97 O2 Delivery Room Air Room Air 08/06/20 08/06/20 08/06/20 08/06/20 00:00 00:00 00:38 01:00 Temp 36.6 Pulse 55 66 Resp 16 B/P (MAP) 187/97 (127) Pulse Ox 98 97 96 O2 Delivery Room Air Room Air Room Air FiO2 21 08/06/20 08/06/20 08/06/20 08/06/20 04:00 04:00 06:45 07:14 Temp 36.8 Pulse 60 64 Resp 18 B/P (MAP) 156/86 (109) Pulse Ox 98 97 96 O2 Delivery Room Air Room Air Room Air FiO2 21 08/06/20 08/06/20 08/06/20 08/06/20 08:00 08:00 08:49 09:00 Temp 36.9 Pulse 75 Resp 18 B/P (MAP) 130/60 (83) 145/67 (93) Pulse Ox 96 97 97 O2 Delivery Room Air Room Air Room Air Room Air Capillary Refill : Less Than 3 Seconds Constitutional: AAO x 3, well-developed, well-nourished HEENT: PERRL, hearing is well preserved, oral hygience is good Neck: No carotid bruit; carotid pulses are 2 + bilaterally Respiratory: No accessory muscle use, No respiratory distress; chest expansion is symmetric, chest is bilaterally symmetric, lungs clear to auscultation Cardiovascular: regular rate-rhythm; No JVD; S1 and S2 Gastrointestinal: No tender; soft, round, audible bowel sounds Extremities: other (mod bilat LE swelling) Neurologic/Psychiatric: grossly intact (moves all extremities) Skin: No rash on exposed areas, No ulcerations on exposed areas (reported wounds to hips not visulized - wearing jeans) Data Review Labs Laboratory Tests 08/05/20 18:00: B-Type Natriuretic Peptide 314.3H 08/05/20 18:21: White Blood Count 9.3, Red Blood Count 4.55, Hemoglobin 11.8L, Hematocrit 37L, Mean Corpuscular Volume 82, Mean Corpuscular Hemoglobin 26, Mean Corpuscular Hemoglobin Concent 32, Red Cell Distribution Width 18.9H, Platelet Count 405H, Mean Platelet Volume 11.2, Immature Granulocyte % (Auto) 0, Neutrophils (%) (Auto) 64, Lymphocytes (%) (Auto) 25, Monocytes (%) (Auto) 9, Eosinophils (%) (Auto) 1, Basophils (%) (Auto) 1, Neutrophils # (Auto) 5.9, Lymphocytes # (Auto) 2.3, Monocytes # (Auto) 0.8, Eosinophils # (Auto) 0.1, Basophils # (Auto) 0.1, Immature Granulocyte # (Auto) 0.0, Prothrombin Time 12.8, INR Comment 0.9, Activated Partial Thromboplast Time 26, Sodium Level 142, Potassium Level 3.4L, Chloride Level 104, Carbon Dioxide Level 23, Anion Gap 15H, Blood Urea Nitrogen 14, Creatinine 0.89, Estimat Glomerular Filtration Rate > 60, BUN/Creatinine Ratio 16, Glucose Level 78, Calcium Level 9.2, Corrected Calcium 9.2, Magnesium Level 1.4L, Total Bilirubin 0.7, Aspartate Amino Transf (AST/SGOT) 27, Alanine Aminotransferase (ALT/SGPT) 14, Alkaline Phosphatase 91, Myoglobin 81.4, Troponin I < 0.028, Total Protein 6.9, Albumin 4.0 08/05/20 20:30: Troponin I < 0.028, C-Reactive Protein High Sensitivity 0.34 08/06/20 05:19: B-Type Natriuretic Peptide 255.2H, White Blood Count 10.8, Red Blood Count 3.91L , Hemoglobin 10.3L, Hematocrit 32L, Mean Corpuscular Volume 82, Mean Corpuscular Hemoglobin 26, Mean Corpuscular Hemoglobin Concent 32, Red Cell Distribution Width 18.7H, Platelet Count 350, Mean Platelet Volume 11.6, Immature Granulocyte % (Auto) 0, Neutrophils (%) (Auto) 58, Lymphocytes (%) (Auto) 29, Monocytes (%) (Auto) 10, Eosinophils (%) (Auto) 2, Basophils (%) (Auto) 1, Neutrophils # (Auto) 6.2, Lymphocytes # (Auto) 3.1, Monocytes # (Auto) 1.1H, Eosinophils # (Auto) 0.2, Basophils # (Auto) 0.1, Immature Granulocyte # (Auto) 0.0, Sodium Level 142, Potassium Level 3.4L, Chloride Level 103, Carbon Dioxide Level 27, Anion Gap 12, Blood Urea Nitrogen 15, Creatinine 0.92, Estimat Glomerular Filtration Rate > 60, BUN/Creatinine Ratio 16, Glucose Level 80, Calcium Level 8.5, Troponin I < 0.028, Triglycerides Level 41, Cholesterol Level 168, LDL Ch olesterol Direct 74, VLDL Cholesterol 8, HDL Cholesterol 85H A/P-Cardiology Assessment/Admission Diagnosis Chest pain of undetermined etiology - no evidence of ACS H/O coronary artery disease, diffuse atherosclerotic plaques noted during multiple cardiac catheterization, nonobstructive disease, had cardiac cathete rization done in 2012, 2015 Stress test in 2015 showing no ischemia or infarction by Dr. Trevino Echocardiogram of Jun 24, [address] Trevino showed LVEF 60-65% Hypertension Hyperlipidemia History of dual-chamber pacemaker due to sinus node dysfunction, he has history of sinus pause for 3.2 second. Last interrogation was done April [address] Trevino showing device functioning normally History of avascular necrosis of the hip, underwent multiple hip surgeries in the past and hip replacements. History of gastroesophageal reflux disease, COPD. Polysubstance use for pain control Previous history of tobaccoism Discussion and Recomendations Echocardiogram to eval structure and function MPI to eval perfusion Management of bilat hip wounds with Medical services BP has improved Monitor lab closely Replace electrolytes as indicated We would like to thank Medical services for this consult Clinical Quality Measures AMI/AHF: ASA po Prior to arrival: No DVT/VTE Risk/Contraindication: Risk Factor Score Per Nursin RFS Level Per Nursing on Admit: 4+=Very High JILLIAN LOPEZ MD FACP FAC CCDS Aug 06, 2020 11:14
--- NOTE | 2020-08-06 13:20 | NUR ---
THIS NURSE GAVE BEDSIDE REPORT TO RASHAWN SHAH ON FOURTH FLOOR. PT TAKEN DOWN BY WHEELCHAIR WITH BELONGINGS. PT IS RESTING WITH CALL LIGHT AND PERSONAL ITEMS WITHIN REACH.
[2020-08-06] MEDS: RT-ALBUTEROL INHALER HFA (VENTOLIN HFA) 18 GM IH SCH ×4 (14:53→21:51)
--- NOTE | 2020-08-06 15:27 | NUR ---
RD ASSESSMENT PMHx: COPD; HTN; ME; CAD; CHD; afib; chronic constipation; DM; dysphagia PT INTERACTION: Pt was awake and pleasant during nutrition asssessment. Pt states current appetite is okay. Note avg PO intake 75% x1meal, per chart review. Pt states following a regular diet at home, and has no issues with chewing/swallowing food. Pt states no recent issues with nausea, vomiting, constipation, or diarrhea, and that his last BM was 08/05. Note pt not currently on bowel regimen per chart review. Pt states no recent wt changes. Note recent 44# wt gain x11mon, per chart review. When asked about current level of DM management: "I don't have diabetes." Note unable to determine recent HbA1c, per chart review. ABNORMAL NUTRITION-RELATED LAB VALUES LOW: K 3.4; HIGH: Est. kcal needs: 1400 kcal | 15 kcal/kg Est. Pro needs: 74 g Pro | 0.8 g Pro/kg PES STATEMENT: Given current PO intake, no nutrition diagnosis at this time (NO-1.1) INTERVENTION: Continue with current diet order of 2000mg Na diet. Did not offer diet education, as pt stated he is not a diabetic. Will continue to follow and reassess as pt needs, intake, and status change. Alisia Paz, MS RD LD
[2020-08-06] MEDS ORDERED: ZOLP10TA PO (16:06)
[2020-08-06] MEDS ORDERED: [UNRECOGNIZED DRUG - CODE] PO (16:06)
[2020-08-06] MEDS ORDERED: NALO25TA PO (16:06)
[2020-08-06] MEDS ORDERED: CLON0.1T PO (16:06)
[2020-08-06] MEDS ORDERED: BACL10TA PO (16:06)
[2020-08-06] MEDS ORDERED: SULF1TAB35 PO (16:06)
[2020-08-06] MEDS ORDERED: OXYC-525 PO (16:06)
[2020-08-06] MEDS ORDERED: RT-ALBUINH INH (16:06)
--- NOTE | 2020-08-06 16:06 | NUR ---
SPOKE WITH THE PT, WENT THRU THE EXT MED HISTORY AND CALLED [facility] TO COMPLETE THE MED REC FUROSEMIDE 40MG WAS LAST FILLED 04-24-2020 #30 (USES PRN) ALL OTHER MEDICATIONS SHOW ON THE EXT MED HISTORY AND PT WAS ABLE TO TELL ME HOW/WHEN HE TAKES EACH OTC MEDS; NONE
--- NOTE | 2020-08-06 20:30 | Wound Care Assessment ---
Wound Care Assessment Date Seen by Provider: Aug 06, 2020 Time Seen by Provider: 19:15 Chief Complaint Bilateral hip wounds. HPI The patient is a 69 year old male with bilateral chronic hip wounds due to underlying osteomyelitis. The patient has reported two dozen previous operations on the hips, with no success in healing of the wounds. He is unable to bear weight on either leg. Daily Iodoform packing is ordered. All care from a wound care standpoint is palliative. Past Medical History: Admits Diabetes Type II, Admits Heart Disease (CAD, CHF, COPD.) Smoking Status: Former Smoker (quit in 2010) Recreational Drug Use: Yes Alcohol Use: Denies Use Review of Systems Pulmonary: Dyspnea Cardiovascular: Chest Pain Musculoskeletal: leg pain Exam Vital Signs Date Time Temp Pulse Resp B/P (MAP) Pulse Ox O2 Delivery O2 Flow Rate FiO2 08/06/20 18:41 96 Room Air 21 08/06/20 16:00 36.8 75 20 155/90 (111) Capillary Refill : Less Than 3 Seconds General Appearance: no apparent distress Respiratory: no respiratory distress Results Laboratory Tests 08/05/20 20:30: Troponin I < 0.028, C-Reactive Protein High Sensitivity 0.34 08/06/20 05:19: Troponin I < 0.028, White Blood Count 10.8, Red Blood Count 3.91L, Hemoglobin 10.3L, Hematocrit 32L, Mean Corpuscular Volume 82, Mean Corpuscular Hemoglobin 26, Mean Corpuscular Hemoglobin Concent 32, Red Cell Distribution Width 18.7H, Platelet Count 350, Mean Platelet Volume 11.6, Immature Granulocyte % (Auto) 0, Neutrophils (%) (Auto) 58, Lymphocytes (%) (Auto) 29, Monocytes (%) (Auto) 10, Eosinophils (%) (Auto) 2, Basophils (%) (Auto) 1, Neutrophils # (Auto) 6.2, Lymphocytes # (Auto) 3.1, Monocytes # (Auto) 1.1H, Eosinophils # (Auto) 0.2, Basophils # (Auto) 0.1, Immature Granulocyte # (Auto) 0.0, Sodium Level 142, Potassium Level 3.4L, Chloride Level 103, Carbon Dioxide Level 27, Anion Gap 12, Blood Urea Nitrogen 15, Creatinine 0.92, Estimat Glomerular Filtration Rate > 60, BUN/Creatinine Ratio 16, Glucose Level 80, Calcium Level 8.5, B-Type Natriuretic Peptide 255.2H, Triglycerides Level 41, Cholesterol Level 168, LDL Cholesterol Direct 74, VLDL Cholesterol 8, HDL Cholesterol 85H Assessment/Plan/Dx 1. Bilateral chronic draining hip wounds, due to underlying osteomyelitis. 2. Diabetes with chronic wounds. 3. Coronary artery disease with congestive heart failure. Plan: Continue Iodoform packing daily. ABUNDIO TITUS MD Aug 06, 2020 20:30
[2020-08-06] MEDS ORDERED: BACLOFEN 10 MG (LIORESAL) TAB PO PRN (21:00)
--- NOTE | 2020-08-06 22:10 | NUR ---
Changed bilateral hip dressing with idoform gauze and gauze. Patient handled procedure well.
[2020-08-06] MEDS: morphine ER 100 MG (MS CONTIN) TAB PO SCH (22:25)
[2020-08-07] VITALS: BP 119/62
[2020-08-07] MEDS: RT-ALBUTEROL INHALER HFA (VENTOLIN HFA) 18 GM IH SCH ×4 (03:10→15:10)
[2020-08-07 04:30] VITALS: BP 131/89
[2020-08-07] MEDS: morphine INJ 10 MG/ML 1ML (SYR OR VIAL) IVP PRN ×2 (04:44→15:07)
[2020-08-07 06:03] LABS: HEMOGLOBIN 9.7 g/dL (13.3-17.7); MEAN PLATELET VOLUME 11.4 fL (9.0-12.2); WHITE BLOOD COUNT 8.3 10^3/uL (4.3-11.0)
[2020-08-07 06:22] LABS: CHLORIDE 103 MMOL/L (98-107); POTASSIUM 3.4 MMOL/L (3.6-5.0); SODIUM 140 MMOL/L (135-145)
[2020-08-07 06:23] LABS: CALCIUM 8.1 MG/DL (8.5-10.1); GLUCOSE 104 MG/DL (70-105)
[2020-08-07 06:25] LABS: CARBON DIOXIDE 28 MMOL/L (21-32)
[2020-08-07 06:27] LABS: CREATININE SERUM 1.08 MG/DL (0.60-1.30); GFR ESTIMATED > 60
[2020-08-07 06:28] LABS: BUN/CREATININE RATIO 16
[2020-08-07] MEDS ORDERED: KCL 20 MEQ TAB (K-DUR) PO NR (07:15)
[2020-08-07 08:00] VITALS: BP 155/67
[2020-08-07] MEDS ORDERED: NON-FORMULARY MEDICATION 1 EA EA (Naloxegol Oxalate (Movantik) 25 MG) PO SCH (09:00)
[2020-08-07] MEDS ORDERED: PANTOPRAZOLE 40 MG (PROTONIX) TAB PO SCH (09:00)
--- NOTE | 2020-08-07 09:40 | NUR ---
ALYSSA CONTRERAS VERIFIED AND THIS RN WITNESSED 0.5MG MORPHINE WASTED
[2020-08-07] MEDS: TRIM/SULFAMETH 160/800 (SEPTRA DS) TAB PO SCH ×2 (11:08→17:00)
[2020-08-07] MEDS: cloNIDine 0.1 MG (CATAPRES) TAB PO SCH (11:08)
[2020-08-07] MEDS: morphine ER 100 MG (MS CONTIN) TAB PO SCH ×2 (11:09→11:15)
--- NOTE | 2020-08-07 11:11 | Progress Note - Cardiology ---
Cardiology SOAP Progress Note Subjective: Lying in bed. Continues to c/o chest discomfort, improved, as before. Mild dyspnea, unchanged. No c/o palpitations. C/O bilat hip pain Objective: I&O/Vital Signs 08/07/20 08/07/20 08/07/20 08/07/20 00:00 00:00 01:00 03:10 Temp 36.6 Pulse 78 66 Resp 16 B/P (MAP) 119/62 (81) Pulse Ox 95 92 94 O2 Delivery Room Air Room Air Room Air FiO2 21 08/07/20 08/07/20 08/07/20 08/07/20 04:00 04:30 06:36 06:39 Temp 36.7 Pulse 72 69 Resp 14 B/P (MAP) 131/89 (103) Pulse Ox 94 96 97 O2 Delivery Room Air Room Air Room Air 08/07/20 08/07/20 08:00 09:00 Temp 36.2 Pulse 72 Resp 16 B/P (MAP) 155/67 (96) Pulse Ox 94 O2 Delivery Room Air Room Air 08/07/20 00:00 Intake Total 875 ml Output Total 450 ml Balance 425 ml Weight (Pounds): 170 Weight (Ounces): 8.0 Weight (Calculated Kilograms): 77.252216 Constitutional: AAO x 3, well-developed, well-nourished Respiratory: No accessory muscle use, No respiratory distress; chest expansion is symmetric, chest is bilaterally symmetric, lungs clear to auscultation Cardiovascular: regular rate-rhythm; No JVD; S1 and S2 Gastrointestional: No tender; soft, round, audible bowel sounds Extremities: other (mod bilat LE swelling) Neurologic/Psychiatric: grossly intact (moves all extremities) Skin: No rash on exposed areas, No ulcerations on exposed areas (reported wounds to hips not visulized - wearing jeans) Results/Procedures: Labs Laboratory Tests 08/07/20 05:40: White Blood Count 8.3, Red Blood Count 3.73L, Hemoglobin 9.7L, Hematocrit 31L, Mean Corpuscular Volume 83, Mean Corpuscular Hemoglobin 26, Mean Corpuscular Hemoglobin Concent 31L, Red Cell Distribution Width 18.8H, Platelet Count 306, Mean Platelet Volume 11.4, Sodium Level 140, Potassium Level 3.4L, Chloride Level 103, Carbon Dioxide Level 28, Anion Gap 9, Blood Urea Nitrogen 17, Creatinine 1.08, Estimat Glomerular Filtration Rate > 60, BUN/Creatinine Ratio 16, Glucose Level 104, Calcium Level 8.1L Laboratory Tests 08/05/20 18:21 08/06/20 05:19 08/07/20 05:40 A/P: Assessment: Chest pain of undetermined etiology - no evidence of ACS H/O coronary artery disease, diffuse atherosclerotic plaques noted during multiple cardiac catheterization, nonobstructive disease, had cardiac catheterization done in 2012, 2015 Stress test in 2015 showing no ischemia or infarction by Dr. Trevino Echocardiogram of Jun 24, [address] Trevino showed LVEF 60-65% Hypertension Hyperlipidemia History of dual-chamber pacemaker due to sinus node dysfunction, he has history of sinus pause for 3.2 second. Last interrogation was done April [address] Trevino showing device functioning normally History of avascular necrosis of the hip, underwent multiple hip surgeries in the past and hip replacements. History of gastroesophageal reflux disease, COPD. Polysubstance use for pain control Previous history of tobaccoism Plan: Echocardiogram to eval structure and function - pending MPI to eval perfusion - pending Management of bilat hip wounds with Medical services Monitor lab closely Replace electrolytes as indicated Clinical Quality Measures AMI/AHF: ASA po Prior to arrival: KAREN Winston Aug 07, 2020 11:11
[2020-08-07 12:00] VITALS: BP 155/89
[2020-08-07] MEDS ORDERED: REGADENOSON 0.4 MG/5 ML SYR (LEXISCAN) IV ONE (12:16)
[2020-08-07] MEDS: ASPIRIN E.C. 81 MG (ECOTRIN) TAB PO SCH (14:17)
--- NOTE | 2020-08-07 14:32 | NUR ---
Pt is [employer] and on his way to diagnostic testing.
--- NOTE | 2020-08-07 15:00 | NUR ---
PATIENT STATES HIS DRESSING CHANGE WAS DONE OVERNIGHT AND WISHES TO HAVE IT CHANGED LATER ESTHELA
[2020-08-07 15:30] VITALS: BP 142/89
--- NOTE | 2020-08-07 16:15 | NUR ---
DR. LOPEZ TO FLOOR AND VISITED WITH PATIENT. DR. LOPEZ GAVE VERBAL ORDER THAT PATIENT MAY BE DISCHARGED AND TO LET DR. FRANCIS KNOW AND TO SCHEDULE F/U WITH DR. SQUIRES FOR 1-[address] FRANCIS INFORMED AT 1620 AND STATED SHE WOULD PUT DISCHARGE IN.
--- NOTE | 2020-08-07 16:31 | Progress Note - Cardiology ---
Cardiology SOAP Progress Note Subjective: No cp Bilat shoulder and arm discomfort, chronic, unchanged No shortness of breath or palp or syncope Gen weakness No focal weakness No n/v/d Objective: I&O/Vital Signs 08/07/20 08/07/20 08/07/20 08/07/20 04:30 06:36 06:39 08:00 Temp 36.7 Pulse 72 69 Resp 14 B/P (MAP) 131/89 (103) Pulse Ox 96 97 O2 Delivery Room Air Room Air Room Air 08/07/20 08/07/20 08/07/20 08/07/20 08:00 09:00 11:09 11:21 Temp 36.2 Pulse 72 Resp 16 B/P (MAP) 155/67 (96) Pulse Ox 94 97 O2 Delivery Room Air Room Air Room Air Room Air 08/07/20 08/07/20 08/07/20 08/07/20 12:00 12:33 15:09 15:30 Temp 36.4 36.7 Pulse 80 100 103 Resp 16 20 B/P (MAP) 155/89 (111) 142/89 (106) Pulse Ox 94 98 95 O2 Delivery Room Air Room Air Room Air 08/07/20 16:19 O2 Delivery Room Air 08/07/20 00:00 Intake Total 875 ml Output Total 450 ml Balance 425 ml Weight (Pounds): 170 Weight (Ounces): 8.0 Weight (Calculated Kilograms): 77.702131 Constitutional: AAO x 3, well-developed, well-nourished Respiratory: No accessory muscle use, No respiratory distress; chest expansion is symmetric, chest is bilaterally symmetric, lungs clear to auscultation Cardiovascular: regular rate-rhythm; No JVD; S1 and S2 Gastrointestional: No tender; soft, round, audible bowel sounds Extremities: other (mod bilat LE swelling) Neurologic/Psychiatric: grossly intact (moves all extremities) Skin: No rash on exposed areas, No ulcerations on exposed areas (reported wounds to hips not visulized - wearing jeans) Results/Procedures: Labs Laboratory Tests 08/07/20 05:40: White Blood Count 8.3, Red Blood Count 3.73L, Hemoglobin 9.7L, Hematocrit 31L, Mean Corpuscular Volume 83, Mean Corpuscular Hemoglobin 26, Mean Corpuscular Hemoglobin Concent 31L, Red Cell Distribution Width 18.8H, Platelet Count 306, Mean Platelet Volume 11.4, Sodium Level 140, Potassium Level 3.4L, Chloride Level 103, Carbon Dioxide Level 28, Anion Gap 9, Blood Urea Nitrogen 17, Creatinine 1.08, Estimat Glomerular Filtration Rate > 60, BUN/Creatinine Ratio 16, Glucose Level 104, Calcium Level 8.1L Laboratory Tests 08/05/20 18:21 08/06/20 05:19 08/07/20 05:40 A/P: Assessment: Chest discomfort, noncardiac (based on cardiac w/u carried out during this hospitalization) MPI of 08/07/20: no ischemia or infarction, normal LVEF Cardiac catheterizations in 2012 & 2014: diffuse atherosclerotic plaques noted during multiple cardiac catheterization, nonobstructive disease Echocardiogram of Jun 24, [address] Trevino showed LVEF 60-65% Hypertension Hyperlipidemia History of dual-chamber pacemaker due to sinus node dysfunction, he has history of sinus pause for 3.2 second. Last interrogation was done April [address] Trevino showing device functioning normally History of avascular necrosis of the hip, underwent multiple hip surgeries in the past and hip replacements. History of gastroesophageal reflux disease, COPD. Polysubstance use for pain control Previous history of tobaccoism Plan: We reviewed and discussed his CV issues and his CV w/u Ok to d/c from cardiac standpoint Outpt cardiac f/u advised with his anatomical embalmer Dr Trevino Clinical Quality Measures AMI/AHF: ASA po Prior to arrival: JILLIAN Parham MD FACP FAC CCDS Aug 07, 2020 16:31
--- NOTE | 2020-08-07 16:47 | Discharge Summary ---
Discharge Summary Instructions for Patient Via [facility], Assessment/Instructions Chest pain- no acute cardiac cause Chronic hip wounds- needing dressing changes Wheelchair bound- chronic avascular necrosis with repeated hip surgeries leading to ultimately chronic non-healing wounds and minimally weight bearing Physician to follow Patient: Dr. Cardona Discharge Diet for Home: Cardiac Diet Hospital Course Date of Admission: Aug 05, 2020 at 23:45 Admission Diagnosis : Chest pain Chronic nonhealing hip wounds Chronic pain Family Physician/Provider: Uriel Cardona MD Date of Discharge: 08/07/20 Discharge Diagnosis: Chest pain- echo and stress test done per Cardiology, no acute issues, follow up with Dr. Trevino outpatient Chronic non-healing wounds- Dr. Swenson consulted, wound care is palliative, will continue on d/c Chronic pain- continued home morphine Hospital Course: See discharge diagnosis Labs and Pending Lab Test: Laboratory Tests 08/07/20 05:40: White Blood Count 8.3, Red Blood Count 3.73L, Hemoglobin 9.7L, Hematocrit 31L, Mean Corpuscular Volume 83, Mean Corpuscular Hemoglobin 26, Mean Corpuscular Hemoglobin Concent 31L, Red Cell Distribution Width 18.8H, Platelet Count 306, Mean Platelet Volume 11.4, Sodium Level 140, Potassium Level 3.4L, Chloride Level 103, Carbon Dioxide Level 28, Anion Gap 9, Blood Urea Nitrogen 17, Creatinine 1.08, Estimat Glomerular Filtration Rate > 60, BUN/Creatinine Ratio 16, Glucose Level 104, Calcium Level 8.1L Home Meds Active Reported Baclofen 10 Mg Tablet 10 Mg PO TID PRN Movantik (Naloxegol Oxalate) 25 Mg Tablet 25 Mg PO DAILY Clonidine HCl 0.1 Mg Tablet 0.1 Mg PO BID PRN Morphine Sulfate ER (Morphine Sulfate) 200 Mg Tablet.er 200 Mg PO BID Oxycodone HCl 15 Mg Tablet 15 Mg PO 1200 Proair Hfa (Albuterol Sulfate) 1 Puff Puff 2 Puff INH Q6H PRN Ambien (Zolpidem Tartrate) 10 Mg Tablet 10 Mg PO HS PRN Bactrim Ds Tablet (Sulfamethoxazole/Trimethoprim) 1 Each Tablet 1 Ea PO BID FILLED 07-31-2020 #20/10 DAY SUPPLY Furosemide 40 Mg Tablet 40 Mg PO DAILY PRN Patient Allergies: Coded Allergies: codeine (Verified Allergy, Mild, HIVES...TAKES OXYCODONE & MS CONTIN AT HOME, 03/11/19) streptokinase (Verified Allergy, Unknown, 03/11/19) Height (Feet): 5 Height (Inches): 8.00 Weight (Pounds): 170 Weight (Ounces): 8.0 Home Health Need/Face to Face Date of Face to Face: Aug 07, 2020 Clinical Findings: Non or partial weight bearing, Non-healing wound I have seen Pt [id number]: Yes Discharged To: Home Diagnosis/Conditions: Chest pain, non-healing chronic hip wounds, chronic pain, wheelchair bound Patient is Homebound due to: Collins fall risk due to instabilty, Non-weight bearing Homebound Status Due to the above stated illness, injury or surgical procedure (medical condition or diagnosis) and associated clinical findings, the patient is homebound because of his/her inability to leave home except with aid of a supportive device and/or person AND leaving the home requires a considerable and taxing effort or is medically contraindicated. Pt req the following assistanc: Aid of another person, Wheelchair Home Health Nursing Orders Home Health Services Order: Nursing Services, Physical Therapy-Evaluate & Treat Certify Stmt I certify that this patient is under my care and that I, a nurse practitioner or a physician; a video library assistant working with me, had a face to face encounter that - meets the physician face to face encounter requirements with this patient as dated. Discharge Physical Exam General: Alert, No Acute Distress Lungs: Clear to Auscultation, Normal Air Movement Heart: Regular Rate, No Murmurs Abdomen: Normal Bowel Sounds, Soft Psych/Mental Status: Mood NL ARIS FRANCIS MD Aug 07, 2020 16:44
--- NOTE | 2020-08-07 16:58 | NUR ---
CM FINALIZED DISCHARGE PLAN: Patient is dismiss to home today with home health care for Nursing and Physical therapies. He has elected [facility] for his home health care provider. Referral discussed with them et they will be able to accept patient for service. Patient is calling his contacts for a ride home. I found a contact number for a [employer] service but he is making phone calls through his contacts and nursing is helping him with that process. He denies any other needs or concerns at this time.
[2020-08-07 17:40] VITALS: BP 142/89
--- NOTE | 2020-08-07 22:56 | STRESS TEST ---
DATE OF SERVICE: 08/07/2020 RESTING AND POST REGADENOSON TECHNETIUM-99M TETROFOSMIN SPECT CT IMAGING ORDERING PHYSICIAN: Nallely Quintana APRN PRIMARY PHYSICIAN: Dr. Ying. OTHER PHYSICIAN: Dr. Lopez. CLINICAL DIAGNOSIS: Chest discomfort. Baseline images were carried out after injection of 9.77 mCi of technetium-99m Tetrofosmin. This was followed by 0.4 mg regadenoson and 30.3 mCi of technetium-99m Tetrofosmin for stress imaging. The electrocardiogram showed sinus rhythm at baseline. It did not change significantly with regadenoson infusion. The patient tolerated the procedure well. Review of images at rest and following stress does not indicate any significant perfusion defects consistent with significant myocardial ischemia or infarction. Gated images show normal global left ventricular systolic function with normal regional wall motion. Left ventricular ejection fraction is calculated to be 59%. Left ventricular end diastolic volume is 99 mL. TID is absent (0.96). CONCLUSIONS: 1. No evidence of any significant myocardial ischemia or infarction on this study. 2. Normal regional wall motion. 3. Normal global left ventricular systolic function with a calculated ejection fraction of 59%. Job ID: [id number] DocumentID: [id number] Dictated Date: 08/07/2020 16:06:54 Supply Chain Associate Date: 08/07/2020 22:55:50 Dictated By: JILLIAN LOPEZ MD, MA, FACP, FACC,
== END 2020-08-07 17:40 | disposition home health service (06) ==
LOC: EDUNIT# 17:49 → ER 17:49 → CSD 23:45 → 4TH 08-06 13:05
PROVIDERS: ADMIT Internal Medicine; ATTEND Family Medicine
DX: R07.9 Chest pain, unspecified (principal); S71.009A Unspecified open wound, unspecified hip, initial encounter; G89.29 Other chronic pain; J44.9 Chronic obstructive pulmonary disease, unspecified; I48.91 Unspecified atrial fibrillation; I25.10 Atherosclerotic heart disease of native coronary artery without angina pectoris; Q24.9 Congenital malformation of heart, unspecified; I10 Essential (primary) hypertension; E11.40 Type 2 diabetes mellitus with diabetic neuropathy, unspecified; F32.9 Major depressive disorder, single episode, unspecified; Z79.899 Other long term (current) drug therapy; Z79.51 Long term (current) use of inhaled steroids; Z88.5 Allergy status to narcotic agent; Z88.8 Allergy status to other drugs, medicaments and biological substances; Z95.0 Presence of cardiac pacemaker
CPT/HCPCS: 36415; 71045; 78452; 80048; 80053; 80061; 83735; 83874; 83880; 84484; 85025; 85027; 85610; 85730; 86141; 90662; 93005; 93017; 93041; 94640; 94760; G0378

== ENCOUNTER 2020-09-29 15:55 | Emergency (ER) | payer MEDICARE, MEDICAID ==
[~2020-09-29] VITALS: Ht 172.7 cm; Wt 73.9 kg
[~2020-09-29 15:55] MED LIST changes: +BACL10TA PO; +CLN.1T PO; -CLON0.1T PO; +OXYC-525 PO; +RT-ALBUINH INH; +ZOLP10TA PO; +[UNRECOGNIZED DRUG - CODE] PO
--- NOTE | 2020-09-29 16:05 | NUR ---
Pt here by EMS with n/v/d and acute on chronic r. hip pain. Pt is soiled with feces, which he states is from yesterday and today due to uncontrolled BM which he reports he was unable to clean himself. Pt states the n/v/d started 3 days ago. Pt denies abd pain but reports the n/v started first and the diarrhea came yesterday. Pt states he is seen by home health. Pt has an open wound on his left hip with a very soiled dressing inplace.
--- NOTE | 2020-09-29 16:33 | ED General ---
General Chief Complaint: Abdominal/GI Problems Stated Complaint: HIP PAIN Nursing Triage Note: PT BROUGHT IN BY [facility] FROM HOME WITH COMPLAINT OF ABD, N/D. STATES HAS BEEN GOING ON FOR TWO DAYS. Nursing Sepsis Screen: No Definite Risk Source of Information: Patient Exam Limitations: No Limitations History of Present Illness Date Seen by Provider: Sep 29, 2020 Time Seen by Provider: 17:16 Initial Comments To ER by EMS from home with reports of nausea vomiting diarrhea for 3 days since he ran out of his morphine. Timing/Duration: 2-3 Days Severity: Moderate Associated Systoms: Nausea/Vomiting Allergies and Home Medications Allergies Coded Allergies: codeine (Verified Allergy, Mild, HIVES...TAKES OXYCODONE & MS CONTIN AT HOME, 03/11/19) streptokinase (Verified Allergy, Unknown, 03/11/19) Home Medications Albuterol Sulfate 1 Puff Puff, 2 PUFF INH Q6H PRN for SHORTNESS OF BREATH, (Rep orted) Baclofen 10 Mg Tablet, 10 MG PO TID PRN for MUSCLE SPASMS, (Reported) Clonidine HCl 0.1 Mg Tablet, 0.1 MG PO BID PRN for BLOOD PRESSURE, (Reported) Furosemide 40 Mg Tablet, 40 MG PO DAILY PRN for SWELLING, (Reported) Levofloxacin 500 Mg Tablet, 500 MG PO DAILY Prescribed by: LOWELL STEVENS on 09/29/201809 Morphine Sulfate 200 Mg Tablet.er, 200 MG PO BID, (Reported) Morphine Sulfate 200 Mg Tablet.er, 200 MG PO BID Prescribed by: LOWELL STEVENS on 09/29/201826 Naloxegol Oxalate 25 Mg Tablet, 25 MG PO DAILY, (Reported) Oxycodone HCl 15 Mg Tablet, 15 MG PO 1200, (Reported) Zolpidem Tartrate 10 Mg Tablet, 10 MG PO HS PRN for SLEEP, (Reported) Patient Home Medication List Home Medication List Reviewed: Yes Review of Systems Review of Systems Constitutional: see HPI EENTM: see HPI Respiratory: no symptoms reported Cardiovascular: no symptoms reported Genitourinary: no symptoms reported Musculoskeletal: no symptoms reported Skin: no symptoms reported Psychiatric/Neurological: No Symptoms Reported Hematologic/Lymphatic: No Symptoms Reported Immunological/Allergic: no symptoms reported Past Enxyygj-Yxhqrg-Bdzajx Hx Patient Social History Alcohol Use: Occasionally Uses Number of Drinks Today: BB Alcohol Beverage of Choice: [place] Recreational Drug Use: Yes 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 Smoking Status: Former Smoker Type Used: Cigarettes Former Smoker, Quit: May 30, 2014 2nd Hand Smoke Exposure: Yes Recent Foreign Travel: No Contact w/Someone Who Travel: No Recent Infectious Disease Expo: No Recent Hopitalizations: No Immunizations Up To Date Tetanus Booster (TDap): Less than 5yrs PED Vaccines UTD: No Date of Pneumonia Vaccine: Jul 03, 2018 Date of Influenza Vaccine: Jul 25, 2019 Seasonal Allergies Seasonal Allergies: No Past Medical History Surgeries: Yes (BILAT HIP REPLACEMENTS X 22; WOUND DEBRIDEMENTS) Abdominal, Appendectomy, Cardiac, Defibrillator, Joint Replacement, Orthopedic, Pacemaker Respiratory: Yes Asthma, COPD Currently Using CPAP: No Currently Using BIPAP: No Cardiac: Yes (PACEMAKER, CARDIAC ARREST, SELF - REPORTED ND X 8; CHF) Atrial Fibrillation, Chronic Edema/Swelling, Coronary Artery Disease, Congenital Heart Disease, Heart Attack, Hypertension, Irregular Heartbeat Neurological: Yes Neuropathy Reproductive Disorders: No Sexually Transmitted Disease: No HIV/AIDS: No Genitourinary: Yes Neurogenic Bladder Gastrointestinal: Yes Abdominal Hernia, Chronic Constipation Musculoskeletal: Yes Arthritis, Chronic Back Pain, Fractures Endocrine: Yes Diabetes, Insulin dep HEENT: Yes Dysphagia Loss of Vision: Denies Hearing Impairment: Hard of Hearing Cancer: No Psychosocial: Yes Suicide Attempts, Depression Integumentary: Yes (recurrent wound issues) Recent Skin Changes Blood Disorders: No Adverse Reaction/Blood Tranf: Yes (HIGH FEVER AND CHILLS) Family Medical History COPD Diabetes mellitus Adopted, unknown FH Physical Exam Vital Signs Vital Signs - First Documented 09/29/20 16:00 Temp 36.8 Pulse 74 Resp 20 B/P (MAP) 169/92 (117) Pulse Ox 98 O2 Delivery Room Air Capillary Refill : Less Than 3 Seconds Height, Weight, BMI Height: 5'8.00" Weight: 170lbs. 8.0oz. 77.251472yd; 24.00 BMI Method:Stated General Appearance: No Apparent Distress, WD/WN, Chronically ill Eyes: Bilateral Eye Normal Inspection, Bilateral Eye PERRL Neck: Full Range of Motion, Normal Inspection Respiratory: No Accessory Muscle Use, No Respiratory Distress Cardiovascular: Regular Rate, Rhythm, Normal Peripheral Pulses Gastrointestinal: Normal Bowel Sounds, Non Tender, Soft Extremity: Normal Capillary Refill, Other (There is a bandage over the right lateral hip wound without drainage or surrounding cellulitis.) Neurologic/Psychiatric: Alert, Oriented x3 Skin: Normal Color, Warm/Dry Progress/Results/Core Measures Suspected Sepsis Recent Fever Within 48 Hours: No Infection Criteria Present: None New/Unexplained Altered Menta: No Sepsis Screen: No Definite Risk SIRS Temperature: Pulse: 74 Respiratory Rate: 20 Laboratory Tests 09/29/20 17:15: White Blood Count 11.7H Blood Pressure 169 /92 Mean: 117 Laboratory Tests 09/29/20 17:15: Creatinine 0.90, Platelet Count 302, Total Bilirubin 0.6 Results/Orders Lab Results Laboratory Tests Test 09/29/20 17:03 09/29/20 17:15 Range/Units Urine Color ORANGE Urine Clarity SL CLOUDY Urine pH 7.5 5-9 Urine Specific Sunset 1.015 L 1.016-1.022 Urine Protein 2+ H NEGATIVE Urine Glucose (UA) NEGATIVE NEGATIVE Urine Ketones NEGATIVE NEGATIVE Urine Nitrite NEGATIVE NEGATIVE Urine Bilirubin NEGATIVE NEGATIVE Urine Urobilinogen 1.0 < = 1.0 MG/DL Urine Leukocyte Esterase 3+ H NEGATIVE Urine RBC (Auto) TRACE-L NEGATIVE Urine RBC NONE /HPF Urine WBC >100 H /HPF Urine Squamous Epithelial Cells NONE /HPF Urine Crystals NONE /LPF Urine Bacteria NEGATIVE /HPF Urine Casts NONE /LPF Urine Mucus NEGATIVE /LPF Urine Culture Indicated YES White Blood Count 11.7 H 4.3-11.0 10^3/uL Red Blood Count 4.50 4.30-5.52 10^6/uL Hemoglobin 11.6 L 13.3-17.7 g/dL Hematocrit 39 L 40-54 % Mean Corpuscular Volume 86 80-99 fL Mean Corpuscular Hemoglobin 26 25-34 pg Mean Corpuscular Hemoglobin Concent 30 L 32-36 g/dL Red Cell Distribution Width 17.7 H 10.0-14.5 % Platelet Count 302 130-400 10^3/uL Mean Platelet Volume 11.3 9.0-12.2 fL Immature Granulocyte % (Auto) 0 % Neutrophils (%) (Auto) 72 42-75 % Lymphocytes (%) (Auto) 16 12-44 % Monocytes (%) (Auto) 11 0-12 % Eosinophils (%) (Auto) 1 0-10 % Basophils (%) (Auto) 1 0-10 % Neutrophils # (Auto) 8.4 H 1.8-7.8 10^3/uL Lymphocytes # (Auto) 1.9 1.0-4.0 10^3/uL Monocytes # (Auto) 1.3 H 0.0-1.0 10^3/uL Eosinophils # (Auto) 0.1 0.0-0.3 10^3/uL Basophils # (Auto) 0.1 0.0-0.1 10^3/uL Immature Granulocyte # (Auto) 0.0 0.0-0.1 10^3/uL Sodium Level 142 135-145 MMOL/L Potassium Level 4.0 3.6-5.0 MMOL/L Chloride Level 108 H 98-107 MMOL/L Carbon Dioxide Level 20 L 21-32 MMOL/L Anion Gap 14 5-14 MMOL/L Blood Urea Nitrogen 21 H 7-18 MG/DL Creatinine 0.90 0.60-1.30 MG/DL Estimat Glomerular Filtration Rate > 60 BUN/Creatinine Ratio 23 Glucose Level 108 H 70-105 MG/DL Calcium Level 8.4 L 8.5-10.1 MG/DL Corrected Calcium 8.9 8.5-10.1 MG/DL Total Bilirubin 0.6 0.1-1.0 MG/DL Aspartate Amino Transf (AST/SGOT) 29 5-34 U/L Alanine Aminotransferase (ALT/SGPT) 24 0-55 U/L Alkaline Phosphatase 76 40-136 U/L B-Type Natriuretic Peptide 329.0 H <100.0 PG/ML Total Protein 6.1 L 6.4-8.2 GM/DL Albumin 3.4 3.2-4.5 GM/DL My Orders Orders - LOWELL STEVENS RN SUPPLEMENTAL Cbc With Automated Diff (09/29/20 16:28) BNP (09/29/20 16:28) Comprehensive Metabolic Panel (09/29/20 16:28) Chest 1 View, Ap/Pa Only (09/29/20 16:28) Ua Culture If Indicated (09/29/20 16:28) Ed Iv/Invasive Line Start (09/29/20 16:28) Ondansetron Injection (Zofran Injectio (09/29/20 16:45) Menthol/Zinc Oxide Ointment (Calmoseptin (09/29/20 21:00) Ns Iv 1000 Ml (Sodium Chloride 0.9%) (09/29/20 16:45) Urine Culture (09/29/20 17:03) Ceftriaxone For Iv Use (Rocephin For I (09/29/20 17:30) Morphine Er Tablet (Ms Contin Tablet) (09/29/20 17:45) Rx-Levofloxacin (Rx-Levaquin) (09/29/20 18:11) Rx-Loperamide (Rx-Imodium) (09/29/20 18:30) Medications Given in ED Current Medications Medications Dose Ordered Sig/Carl Route Start Time Stop Time Status Last Admin Dose Admin Ceftriaxone Sodium 1000 mg/ Sterile Water 10 ml @ 200 mls/hr ONCE ONCE IV 09/29/20 17:30 09/29/20 17:32 DC 09/29/20 17:37 200 MLS/HR Loperamide HCl 4 mg ONCE ONCE PO 09/29/20 18:30 09/29/20 18:31 DC 09/29/20 18:34 4 MG Morphine Sulfate 100 mg ONCE ONCE PO 09/29/20 17:45 09/29/20 17:46 DC 09/29/20 17:57 100 MG Ondansetron HCl 4 mg ONCE ONCE IVP 09/29/20 16:45 09/29/20 16:46 DC 09/29/20 16:47 4 MG Vital Signs/I&O 09/29/20 09/29/20 16:00 18:54 Temp 36.8 Pulse 74 65 Resp 20 18 B/P (MAP) 169/92 (117) 155/81 Pulse Ox 98 98 O2 Delivery Room Air Room Air Capillary Refill : Less Than 3 Seconds Blood Pressure Mean: 117 Departure Impression Primary Impression: Opiate withdrawal Additional Impression: Urinary tract infection Disposition: 01 HOME, SELF-CARE Condition: Stable Departure-Patient Inst. Decision time for Depature: 18:09 Referrals: OLEGARIO ROSENTHAL MD (PCP/Family) Primary Care Physician Patient Instructions: Drug Withdrawal (DC), Nausea and Vomiting, Adult, Urinary Tract Infections in Adults Add. Discharge Instructions: 1. Call your regular doctor on Thursday to make an appointment to be seen for follow-up. Emergency department focuses on treating and ruling out life- threatening diseases. Whenever possible, a diagnosis is given. However, most patients are given an impression based on their history, physical exam, and workup during your brief time in the ER. Information about probable diagnosis and other educational material has been provided. Please take the time to read and understand this information. I want to make it very clear that the reason you have nausea vomiting and diarrhea is because you did not take your pain medication as prescribed It is very important that you follow up with a physician as discussed during the visit today. Failure to adhere to your follow-up instructions may lead to severe disability, injury, or so please make sure to keep your appointments or obtain one as requested. I want to make it very clear that you have nausea vomiting and diarrhea because you ran out of your pain pills early because you did not take them as prescribed. You will be very gricelda if [facility] refills them for you at all. Scripts Morphine Sulfate (Morphine Sulfate ER) 200 Mg Tablet.er 200 MG PO BID for 7 Days, #2 TAB Prov: LOWELL STEVENS APRN 09/29/20 Levofloxacin (Levofloxacin) 500 Mg Tablet 500 MG PO DAILY, #5 TAB Prov: LOWELL STEVENS APRN 09/29/20 LOWELL STEVENS APRN Sep 29, 2020 16:33
[2020-09-29] MEDS ORDERED: ONDANSETRON 4 MG/2 ML (SDV) Z0FRAN IVP ONE (16:45)
[2020-09-29] MEDS ORDERED: NS IV 1000 ML 1,000 ML IV SCH (16:45)
--- NOTE | 2020-09-29 16:45 | NUR ---
Pt clothing removed and he was cleansed with soap and water, as well as ReadyBath Pads. Pt tolerated bathing well. Warm blankets applied post bathing.
--- NOTE | 2020-09-29 16:55 | Diagnostic Imaging Report ---
INDICATION: Chest pain. EXAMINATION: Upright chest. FINDINGS: Heart size is upper normal. The vascularity is normal. No infiltrate or effusion is seen. A pacemaker is present. IMPRESSION: No acute abnormality is seen with no significant change from 08/05/2020. Dictated by: Dictated on workstation # [id number]
[2020-09-29 17:09] LABS: BILIRUBIN,URINE NEGATIVE (NEGATIVE); CLARITY,URINE SL CLOUDY; COLOR,URINE ORANGE; GLUCOSE, URINE (UA) NEGATIVE (NEGATIVE); KETONES,URINE NEGATIVE (NEGATIVE); LEUKOCYTE ESTERASE ,URINE 3+ (NEGATIVE); NITRITE,URINE NEGATIVE (NEGATIVE); PH,URINE 7.5 (5-9); PROTEIN,URINE 2+ (NEGATIVE)
--- NOTE | 2020-09-29 17:12 | NUR ---
Pt's buttocks noted to have macerated skin extending down to bilateral upper thighs and medially into the inguinal area to the scrotum. Pt is tender to the touch and states he had been sitting in his own feces and urine since yesterday. Pt bathed and medicated lotion applied to this area after order placed by Nani Millan.
[2020-09-29 17:20] LABS: BACTERIA,URINE NEGATIVE /HPF; WBC,URINE >100 /HPF
[2020-09-29] MEDS ORDERED: cefTRIAXone FOR IV USE 1,000 MG in WATER (STERILE) FOR INJECTION 10 ML IV ONE (17:30)
[2020-09-29 17:36] LABS: BASOPHILS # (AUTO) 0.1 10^3/uL (0.0-0.1); BASOPHILS % (AUTO) 1 % (0-10); EOSINOPHILS # (AUTO) 0.1 10^3/uL (0.0-0.3); EOSINOPHILS % (AUTO) 1 % (0-10); HEMATOCRIT 39 % (40-54); HEMOGLOBIN 11.6 g/dL (13.3-17.7); LYMPHOCYTES # (AUTO) 1.9 10^3/uL (1.0-4.0); LYMPHOCYTES % (AUTO) 16 % (12-44); MEAN CORPUSCULAR HEMOGLOBIN 26 pg (25-34); MEAN CORPUSCULAR HGB CONC 30 g/dL (32-36); MEAN CORPUSCULAR VOLUME 86 fL (80-99); MEAN PLATELET VOLUME 11.3 fL (9.0-12.2); MONOCYTES # (AUTO) 1.3 10^3/uL (0.0-1.0); MONOCYTES % (AUTO) 11 % (0-12); NEUTROPHILS # (AUTO) 8.4 10^3/uL (1.8-7.8); NEUTROPHILS % (AUTO) 72 % (42-75); PLATELET COUNT 302 10^3/uL (130-400); WHITE BLOOD COUNT 11.7 10^3/uL (4.3-11.0)
[2020-09-29 17:42] LABS: ALBUMIN 3.4 GM/DL (3.2-4.5); CHLORIDE 108 MMOL/L (98-107); SODIUM 142 MMOL/L (135-145)
[2020-09-29 17:44] LABS: CALCIUM 8.4 MG/DL (8.5-10.1)
[2020-09-29 17:45] LABS: GLUCOSE 108 MG/DL (70-105); TOTAL PROTEIN 6.1 GM/DL (6.4-8.2)
[2020-09-29] MEDS ORDERED: morphine ER 100 MG (MS CONTIN) TAB PO ONE (17:45)
[2020-09-29 17:46] LABS: BILIRUBIN,TOTAL 0.6 MG/DL (0.1-1.0); CARBON DIOXIDE 20 MMOL/L (21-32)
[2020-09-29 17:48] LABS: ALKALINE PHOSPHATASE 76 U/L (40-136); GFR ESTIMATED > 60
[2020-09-29 17:49] LABS: BUN/CREATININE RATIO 23
[2020-09-29 17:51] LABS: ALANINE AMINOTRANSFERASE 24 U/L (0-55)
[2020-09-29] MEDS ORDERED: LEVO500T80 PO (18:10)
[2020-09-29] MEDS ORDERED: RX-LEVOFLOXACIN 500 MG (LEVAQUIN) TAB #1 PPK PO STA (18:11)
[2020-09-29] MEDS ORDERED: [UNRECOGNIZED DRUG - CODE] PO (18:27)
[2020-09-29] MEDS ORDERED: RX-LOPERAMIDE 2 MG (IMODIUM) CAP PPK#4 PO ONE (18:30)
[2020-09-29 18:54] VITALS: BP 155/81
--- NOTE | 2020-09-29 19:03 | NUR ---
D/C instructions discussed with patient; discussed with the patient the importance of taking his home pain medication as directed so that he does not run out. Pt verbalized an understanding. Azar called for this patinet. Pt into paper scrubs and into w/c. Pt able to stand and transfer with assistance. Pt has his neighbor who will bring his w/c to the curb at his home and assist him into his apartment.
[2020-09-29] MEDS ORDERED: MENTHOL/ZINC OXIDE (CALMOSEPTINE) 113 GM TUBE TOP SCH (21:00)
== END 2020-09-29 19:11 | disposition home or self-care (01) ==
LOC: EDUNIT# 15:55 → ER 15:57
DX: F11.23 Opioid dependence with withdrawal (principal); N39.0 Urinary tract infection, site not specified; J44.9 Chronic obstructive pulmonary disease, unspecified; I10 Essential (primary) hypertension; G89.29 Other chronic pain; M54.9 Dorsalgia, unspecified; I25.2 Old myocardial infarction; Z83.3 Family history of diabetes mellitus; Z87.891 Personal history of nicotine dependence; Z95.810 Presence of automatic (implantable) cardiac defibrillator; Z88.5 Allergy status to narcotic agent; Z88.8 Allergy status to other drugs, medicaments and biological substances
CPT/HCPCS: 36415; 71045; 80053; 81000; 83880; 85025; 87077; 87088

== ENCOUNTER 2021-02-11 00:22 | Emergency (ER) | payer MEDICARE, MEDICAID ==
[~2021-02-11] VITALS: Ht 172 cm; Wt 80.0 kg
[~2021-02-11 00:22] MED LIST changes: +LEVO500T80 PO; -LISI-552 PO; +LISI20TA26 PO
[2021-02-11 00:25] VITALS: BP 175/92
--- NOTE | 2021-02-11 00:44 | ED Upper Extremity ---
General Chief Complaint: Upper Extremity Stated Complaint: ARM PAIN X 6 WEEKS Nursing Triage Note: Pt here with bilateral arm pain x 6 wks. Pt describes pain as achy and sharp. Nursing Sepsis Screen: No Definite Risk Source: patient Exam Limitations: no limitations History of Present Illness Date Seen by Provider: Feb 11, 2021 Time Seen by Provider: 00:30 Initial Comments Patient is a 70-year-old male who presents to the emergency department tonight with a chief complaint of bilateral shoulder pain that he states is sharp and aching. He states he has had this pain since June of last year. Nothing makes it any better or worse. Patient states that he takes Tylenol and ibuprofen and another dose of ibuprofen would "not hurt". Patient denies any associated symptoms of chest pain, shortness of breath, abdominal pain no nausea, vomiting or diarrhea. He does not have any recent fevers chills or upper respiratory tract symptoms. This pain is chronic and he has a family doctor who is following it. What prompted the patient's arrival into the emergency department this evening was he slipped out of his recliner chair, did not injure himself. He called EMS for lift assist and then decided that he would come to the emergency department to have his arms evaluated. He appears in no acute distress. He does not wince or exhibit any painful reactions when palpating the shoulders bilaterally or ranging the shoulders bilaterally. All other review of systems reviewed and negative except as stated above. Severity: moderate Pain/Injury Location: bilateral shoulder Modifying Factors: Improves With Pain Medication Allergies and Home Medications Allergies Coded Allergies: codeine (Verified Allergy, Mild, HIVES...TAKES OXYCODONE & MS CONTIN AT HOME, 03/11/19) streptokinase (Verified Allergy, Unknown, 03/11/19) Home Medications Albuterol Sulfate 1 Puff Puff, 2 PUFF INH Q6H PRN for SHORTNESS OF BREATH, (Reported) Baclofen 10 Mg Tablet, 10 MG PO TID PRN for MUSCLE SPASMS, (Reported) Clonidine HCl 0.1 Mg Tablet, 0.1 MG PO BID PRN for BLOOD PRESSURE, (Reported) Furosemide 40 Mg Tablet, 40 MG PO DAILY PRN for SWELLING, (Reported) Levofloxacin 500 Mg Tablet, 500 MG PO DAILY Prescribed by: LOWELL STEVENS on 09/29/201809 Morphine Sulfate 200 Mg Tablet.er, 200 MG PO BID, (Reported) Morphine Sulfate 200 Mg Tablet.er, 200 MG PO BID Prescribed by: LOWELL STEVENS on 09/29/201826 Naloxegol Oxalate 25 Mg Tablet, 25 MG PO DAILY, (Reported) Oxycodone HCl 15 Mg Tablet, 15 MG PO 1200, (Reported) Zolpidem Tartrate 10 Mg Tablet, 10 MG PO HS PRN for SLEEP, (Reported) Patient Home Medication List Home Medication List Reviewed: Yes Review of Systems Constitutional: see HPI EENTM: no symptoms reported Respiratory: no symptoms reported Cardiovascular: no symptoms reported Gastrointestinal: no symptoms reported Genitourinary: no symptoms reported Musculoskeletal: joint pain (Bilateral shoulder and upper arm pain) Skin: no symptoms reported Psychiatric/Neurological: No Symptoms Reported All Other Systems Reviewed Negative Unless Noted: Yes Past Gkwoyvp-Rrgiij-Ynrzdz Hx Patient Social History Alcohol Beverage of Choice: [place] 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 Type Used: Cigarettes Former Smoker, Quit: May 30, 2014 2nd Hand Smoke Exposure: Yes Recent Infectious Disease Expo: No Recent Hopitalizations: No Immunizations Up To Date Tetanus Booster (TDap): Less than 5yrs PED Vaccines UTD: No Date of Pneumonia Vaccine: Jul 03, 2018 Date of Influenza Vaccine: Jul 25, 2019 Seasonal Allergies Seasonal Allergies: No Past Medical History Surgeries: Yes (BILAT HIP REPLACEMENTS X 22; WOUND DEBRIDEMENTS) Abdominal, Appendectomy, Cardiac, Defibrillator, Joint Replacement, Orthopedic, Pacemaker Respiratory: Yes Asthma, COPD Currently Using CPAP: No Currently Using BIPAP: No Cardiac: Yes (PACEMAKER, CARDIAC ARREST, SELF - REPORTED ND X 8; CHF) Atrial Fibrillation, Chronic Edema/Swelling, Coronary Artery Disease, Congenital Heart Disease, Heart Attack, Hypertension, Irregular Heartbeat Neurological: Yes Neuropathy Reproductive Disorders: No Sexually Transmitted Disease: No HIV/AIDS: No Genitourinary: Yes Neurogenic Bladder Gastrointestinal: Yes Abdominal Hernia, Chronic Constipation Musculoskeletal: Yes Arthritis, Chronic Back Pain, Fractures Endocrine: Yes Diabetes, Insulin dep HEENT: Yes Dysphagia Loss of Vision: Denies Hearing Impairment: Hard of Hearing Cancer: No Psychosocial: Yes Suicide Attempts, Depression Integumentary: Yes (recurrent wound issues) Recent Skin Changes Blood Disorders: No Adverse Reaction/Blood Tranf: Yes (HIGH FEVER AND CHILLS) Family Medical History COPD Diabetes mellitus Adopted, unknown FH Physical Exam Vital Signs Vital Signs - First Documented 02/11/21 00:25 Temp 36.3 Pulse 81 Resp 18 B/P (MAP) 175/92 (119) Pulse Ox 96 O2 Delivery Room Air Capillary Refill : Less Than 3 Seconds Height, Weight, BMI Height: 5'8.00" Weight: 170lbs. 8.0oz. 77.545642dw; 27.00 BMI Method:Stated General Appearance: WD/WN, no apparent distress Cardiovascular: regular rate, rhythm Respiratory: lungs clear, normal breath sounds, no respiratory distress, no accessory muscle use Gastrointestinal: non tender, soft Shoulder: normal inspection, limited ROM, soft tissue tenderness (Bilateral shoulders) Elbow/Forearm: normal inspection, non-tender, no evidence of injury, limited ROM Wrist: Yes normal inspection, Yes non-tender, Yes no evidence of injury, Yes limited ROM Hand: normal inspection, non-tender, no evidence of injury, limited ROM Neurologic/Psychiatric: alert, normal mood/affect, oriented x 3 Skin: normal color, warm/dry Progress/Results/Core Measures Results/Orders My Orders Orders - KEITH FLOWER MD Ibuprofen Tablet (Motrin Tablet) (02/11/21 00:45) Medications Given in ED Current Medications Medications Dose Ordered Sig/Carl Route Start Time Stop Time Status Last Admin Dose Admin Ibuprofen 600 mg ONCE ONCE PO 02/11/21 00:45 02/11/21 00:46 DC 02/11/21 00:50 600 MG Vital Signs/I&O 02/11/21 00:25 Temp 36.3 Pulse 81 Resp 18 B/P (MAP) 175/92 (119) Pulse Ox 96 O2 Delivery Room Air Blood Pressure Mean: 119 Departure Impression Primary Impression: Chronic pain of both shoulders Disposition: 01 HOME, SELF-CARE Condition: Stable Departure-Patient Inst. Decision time for Depature: 00:43 Referrals: OLEGARIO ROSENTHAL MD (PCP/Family) Primary Care Physician Patient Instructions: Shoulder Pain (DC) Add. Discharge Instructions: Please keep your scheduled follow-up appointments with your primary care physician. Continue to take Tylenol and ibuprofen as needed for pain. Come back to the emergency department for reevaluation if you have any new, concerning or emergent symptoms. KEITH FLOWER MD Feb 11, 2021 00:44
[2021-02-11] MEDS ORDERED: IBUPROFEN 600 MG (MOTRIN) TAB PO ONE (00:45)
== END 2021-02-11 01:32 | disposition home or self-care (01) ==
LOC: EDUNIT# 00:22 → ER 00:24
DX: G89.29 Other chronic pain (principal); M25.512 Pain in left shoulder; M25.511 Pain in right shoulder; J44.9 Chronic obstructive pulmonary disease, unspecified; I25.2 Old myocardial infarction; I10 Essential (primary) hypertension; E11.9 Type 2 diabetes mellitus without complications; Z88.5 Allergy status to narcotic agent; Z88.8 Allergy status to other drugs, medicaments and biological substances; Z87.891 Personal history of nicotine dependence; Z79.891 Long term (current) use of opiate analgesic
CPT/HCPCS: 99283

== ENCOUNTER 2021-10-12 05:42 | Emergency (ER) | payer MEDICARE, MEDICAID ==
[~2021-10-12] VITALS: Ht 172.7 cm; Wt 81.6 kg
[~2021-10-12 05:42] MED LIST changes: +CYCL10TA25 PO; -CYCL10TA9 PO; -DOXY100C2 PO; +DOXY100C5 PO; -LEVO500T80 PO; +LEVO500T81 PO; -SULF1TAB35 PO; +SULF1TAB38 PO
[2021-10-12] MEDS ORDERED: LACTATED RINGERS 1,000 ML IV STA (06:08)
[2021-10-12] MEDS ORDERED: ONDANSETRON 4 MG/2 ML (SDV) Z0FRAN IVP ONE ×2 (06:15→09:00)
[2021-10-12] MEDS ORDERED: HYOSCYAMINE 0.125 MG (LEVSIN) TAB SL ONE (06:15)
[2021-10-12] MEDS ORDERED: morphine INJ 10 MG/ML 1ML (SYR OR VIAL) IVP ONE (06:15)
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
[2021-10-12 06:24] LABS: BASOPHILS # (AUTO) 0.1 10^3/uL (0.0-0.1); BASOPHILS % (AUTO) 1 % (0-10); EOSINOPHILS % (AUTO) 0 % (0-10); HEMATOCRIT 44 % (40-54); HEMOGLOBIN 14.8 g/dL (13.3-17.7); LYMPHOCYTES # (AUTO) 1.4 10^3/uL (1.0-4.0); LYMPHOCYTES % (AUTO) 13 % (12-44); MEAN CORPUSCULAR HEMOGLOBIN 30 pg (25-34); MEAN CORPUSCULAR HGB CONC 34 g/dL (32-36); MEAN CORPUSCULAR VOLUME 91 fL (80-99); MEAN PLATELET VOLUME 10.8 fL (9.0-12.2); MONOCYTES # (AUTO) 0.9 10^3/uL (0.0-1.0); MONOCYTES % (AUTO) 9 % (0-12); NEUTROPHILS # (AUTO) 7.9 10^3/uL (1.8-7.8); NEUTROPHILS % (AUTO) 77 % (42-75); PLATELET COUNT 267 10^3/uL (130-400); WHITE BLOOD COUNT 10.2 10^3/uL (4.3-11.0)
[2021-10-12 06:38] LABS: ALBUMIN 3.8 GM/DL (3.2-4.5)
[2021-10-12 06:39] LABS: POTASSIUM 3.3 MMOL/L (3.6-5.0)
[2021-10-12 06:40] LABS: CALCIUM 9.1 MG/DL (8.5-10.1)
[2021-10-12 06:41] LABS: TOTAL PROTEIN 7.1 GM/DL (6.4-8.2)
[2021-10-12 06:43] LABS: BILIRUBIN,TOTAL 1.2 MG/DL (0.1-1.0)
[2021-10-12 06:45] LABS: CREATININE SERUM 0.83 MG/DL (0.60-1.30)
[2021-10-12 06:47] LABS: MAGNESIUM 1.5 MG/DL (1.6-2.4)
[2021-10-12 08:05] LABS: BILIRUBIN,URINE NEGATIVE (NEGATIVE); CLARITY,URINE CLEAR; COLOR,URINE YELLOW; GLUCOSE, URINE (UA) NEGATIVE (NEGATIVE); KETONES,URINE NEGATIVE (NEGATIVE); LEUKOCYTE ESTERASE ,URINE NEGATIVE (NEGATIVE); NITRITE,URINE NEGATIVE (NEGATIVE); PROTEIN,URINE 2+ (NEGATIVE)
[2021-10-12 08:14] LABS: AMORPHOUS SEDIMENT,UR RARE AMOR URATES /LPF; BACTERIA,URINE NEGATIVE /HPF; RBC,URINE 0-2 /HPF; WBC,URINE RARE /HPF
[2021-10-12] MEDS ORDERED: morphine ER 100 MG (MS CONTIN) TAB PO ONE (09:00)
[2021-10-12 12:18] VITALS: BP 155/81
== END 2021-10-12 12:18 | disposition home or self-care (01) ==
LOC: EDUNIT# 05:42 → ER 05:43
DX: R11.2 Nausea with vomiting, unspecified (principal); R19.7 Diarrhea, unspecified; F11.23 Opioid dependence with withdrawal; I25.2 Old myocardial infarction; E11.9 Type 2 diabetes mellitus without complications; J44.9 Chronic obstructive pulmonary disease, unspecified; G89.29 Other chronic pain; M54.9 Dorsalgia, unspecified; I10 Essential (primary) hypertension; E66.9 Obesity, unspecified; Z68.27 Body mass index [BMI] 27.0-27.9, adult
CPT/HCPCS: 36415; 80053; 81000; 83735; 85025; 86141

== ENCOUNTER 2022-07-31 20:00 | Inpatient (IN) | payer MEDICARE, MEDICAID ==
[~2022-07-31] VITALS: Ht 172.7 cm; Wt 84.4 kg
[~2022-07-31 20:00] MED LIST changes: +LEVO-55 PO; -LEVO500T81 PO
[2022-07-31] MEDS ORDERED: LACTATED RINGERS 1,000 ML IV ONE (20:30)
[2022-07-31] MEDS ORDERED: ONDANSETRON 4 MG/2 ML (SDV) Z0FRAN IVP ONE (20:30)
[2022-07-31] MEDS ORDERED: LIDOCAINE UROJET 2% GEL 10 ML PKG TOP ONE (20:30)
--- NOTE | 2022-07-31 20:48 | ED General ---
General Chief Complaint: Hip/Pelvic Problems Stated Complaint: N/V,DIARRHEA Nursing Triage Note: PT TO ROOM 03 VIA [facility] WITH C/O BILAT HIP PAIN AFTER FALLING X2 WEEKS AGO. PT STATES THE PAIN HAS GOTTEN WORSE AND IS CONCERNED THAT SOMETHING IS BROKEN. PER EMS, PT'S ELECTRIC WHEELCHAIR IS BROKEN AND PT HAS NOT BEEN ABLE TO GET OUT OF HIS RECLINER IN X6 DAYS. EMS REPORTS SOMEONE HAD CAME TO HOUSE AND CLEANED HIM AND THEN LEFT. PT COVERED IN OWN FECAL MATTER AND URINE UPON ARRIVAL. REDDNESS AND SORES NOTED TO UPPER THIGHS, GENITAL AREA, AND LOWER ABD. Source of Information: Patient (PT IS SOMEWHAT LIMITED HISTORIAN), Old Records History of Present Illness Date Seen by Provider: Jul 31, 2022 Time Seen by Provider: 20:10 Initial Comments PT ARRIVES VIA EMS FROM HOME PT WITH MULTIPLE COMPLAINTS PT STATES HE FELL 2 WEEKS AGO, AND HAS HAD BILATERAL HIP PAIN SINCE THEN--RIGHT > LEFT--AND STATES HE HAS SWELLING TO THESE AREAS HE NEVER SOUGHT CARE AT ANY TIME FOR THAT INJURY HAS NOT TAKEN ANYTHING FOR PAIN SYMPTOMS NO DIFFERENT TODAY DENIES PARESTHESIAS OR MOTOR DEFICITS. PT IS NON-AMBULATORY HE HAS HAD MULTITUDE OF FAILED HIP SURGERIES AND HAS HAD BOTH HIPS PERMANENTLY REMOVED, AND PT IS WHEELCHAIR BOUND. PT LIVES AT HOME ALONE, AND HAS A POWER CHAIR HE STATES HIS POWER CHAIR "BROKE" A COUPLE OF WEEKS AGO, AND PT HAS BEEN IN HIS RECLINER FOR THE LAST 6 DAYS, AND HAS NOT MOVED AT ALL IN THAT TIME. PT HAS HAD "CONSTANT DIARRHEA FOR 4 DAYS"--PT HAS BEEN SITTING IN HIS OWN FECES AND URINE THIS WHOLE TIME C/O NAUSEA, NO VOMITING DENIES ABDOMINAL PAIN C/O BURNING ON URINATION NO FEVER NO CHEST PAIN NO COUGH NO SHORTNESS OF BREATH NO FEVER NO HEADACHE NONE OF THESE SYMPTOMS ARE DIFFERENT TONIGHT IN ANY WAY HAS NOT ATTEMPTED TO SEEK CARE AT ANY TIME UNTIL TONIGHT. STATES HE HAS BEEN TAKING PEPTO BISMOL FOR THE DIARRHEA WITHOUT IMPROVEMENT PT GIVES MUCH INCONSISTENT/CONVOLUTED INFORMATION AND CONSTANTLY CHANGING STORIES ABOUT HIS LIVING SITUATION, HOW MUCH HE DRINKS, PAIN MEDICATION, ETC. PT LIVES ALONE. INITIALLY STATED THAT HE HAS HOME HEALTH, THEN STATES HE "IS GOING TO GET THAT SET UP" --THEN STATES HE HAS NOT ACTUALLY TALKED TO ANYONE ABOUT HOME HEALTH. INITIALLY STATED HE HAD NO ONE TO HELP HIM--THEN LATER STATES HE HAS A "HELPER" THAT COMES 5 DAYS A WEEK,BUT NOT ON SATURDAYS OR SUNDAYS. GIVES CONFLICTING STORIES ABOUT WHEN THIS "HELPER" WAS LAST THERE, AND HOW THE "HELPER" HAD HELPED HIM. IS UNCLEAR IF ANYONE WAS THERE TODAY OR NOT. HE STATES THAT "HELPER" "CLEANED HIM UP AND LEFT"--BUT UNABLE TO DETERMINE WHEN OR IF THIS ACTUALLY HAPPENED OR WHEN IT MIGHT HAVE HAPPENED. HE WILL NOT ELABORATE ON WHO HIS "HELPER" IS OR IF HE IS AFFILIATED WITH ANY HOME HEALTH AGENCY, ETC. INITIALLY PT STATES HE HAS "NEVER DRANK IN HIS LIFE" THEN LATER CONFRONTED HIM ABOUT ELEVATED ALCOHOL LEVEL TODAY AND ON MULTIPLE PREVIOUS VISITS, HE STATES HE HAS NOT HAD ANY ALCOHOL "FOR AWHILE". AGAIN ADVISED HIM THAT HIS ALCOHOL LEVEL TODAY INDICATED THAT HE HAD LIKELY BEEN DRINKING ALCOHOL TODAY, HE THEN ADMITS HE HAD "1 DRINK" "TO HELP WITH THE PAIN" ON DISCUSSING PAIN MEDICATION, PT STATES THAT HE HAS NOT HAD ANY PAIN MEDICATION "SINCE FEBRUARY" ( PT HAS A LONG HISTORY OF OPIATE ABUSE ) STATES DR. ROSENTHAL QUIT PRESCRIBING HIS PAIN MEDICATION ( INCLUDING MORPHINE) AND HE REFERRED HIM TO DR. Tre BENEDICT, WHO ALSO WOULD NOT PRESCRIBE HIM ANY PAIN MEDICATIONS. ON REVIEW OF MED RECONCILIATION, IT DOES LIST BUPRENORPHINE A PRESCRIBED MEDICATION FROM DECEMBER UNTIL APRIL OF THIS YEAR. PT HAS HAD THIS SAME ISSUE IN THE PAST, WHEN HE STOPPED HIS OPIATES--HAD ALOT OF DIARRHEA AND NAUSEA. PT NORMALLY HAS CHRONIC CONSTIPATION DUE TO CHRONIC OPIATE USE HE DENIES ANY OTHER RECENT ILLNESS OR RECENT ANTIBIOTIC USE DENIES ANY SUSPICIOUS FOODS NO KNOWN SICK CONTACTS PCP: DR. ROSENTHAL, [facility] Allergies and Home Medications Allergies Coded Allergies: codeine (Verified Allergy, Mild, HIVES...TAKES OXYCODONE & MS CONTIN AT HOME, 03/11/19) streptokinase (Verified Allergy, Unknown, 03/11/19) Patient Home Medication List Home Medication List Reviewed: Yes Albuterol Sulfate (Proair Hfa) 1 Puff Puff, 2 PUFF INH Q6H PRN for SHORTNESS OF BREATH, (Reported) Entered as Reported by: KARINA RAPHAEL on 08/06/20 1606 Last Action: Reviewed Gabapentin (Neurontin) 300 Mg Capsule, 600 MG PO HS, (Reported) Entered as Reported by: KARINA RAPHAEL on 08/01/22 1517 Last Action: Reviewed Discontinued Medications Baclofen (Baclofen) 10 Mg Tablet, 10 MG PO TID PRN for MUSCLE SPASMS, (Reported) Discontinued Reason: No Longer Taking Entered as Reported by: KARINA RAPHAEL on 08/06/201605 Last Action: Discontinued Clonidine HCl (Clonidine HCl) 0.1 Mg Tablet, 0.1 MG PO BID PRN for BLOOD LA ESSURE, (Reported) Discontinued Reason: No Longer Taking Entered as Reported by: KARINA RAPHAEL on 08/06/201605 Last Action: Discontinued Furosemide (Furosemide) 40 Mg Tablet, 40 MG PO DAILY PRN for SWELLING, (Reported) Discontinued Reason: No Longer Taking Entered as Reported by: MONIQUE CASTILLO on 06/22/182158 Last Action: Discontinued Levofloxacin (Levofloxacin) 500 Mg Tablet, 500 MG PO DAILY Discontinued Reason: No Longer Taking Prescribed by: LOWELL STEVENS on 09/29/201809 Last Action: Discontinued Morphine Sulfate (Morphine Sulfate ER) 200 Mg Tablet.er, 200 MG PO BID, (Reported) Discontinued Reason: No Longer Taking Entered as Reported by: KARINA RAPHAEL on 08/06/201605 Last Action: Discontinued Morphine Sulfate (Morphine Sulfate ER) 200 Mg Tablet.er, 200 MG PO BID Discontinued Reason: No Longer Taking Prescribed by: LOWELL STEVENS on 09/29/20 182 Last Action: Discontinued Naloxegol Oxalate (Movantik) 25 Mg Tablet, 25 MG PO DAILY, (Reported) Discontinued Reason: No Longer Taking Entered as Reported by: KARINA RAPHAEL on 08/06/201605 Last Action: Discontinued Oxycodone HCl (Oxycodone HCl) 15 Mg Tablet, 15 MG PO 1200, (Reported) Discontinued Reason: No Longer Taking Entered as Reported by: KARINA RAPHAEL on 08/06/201605 Last Action: Discontinued Zolpidem Tartrate (Ambien) 10 Mg Tablet, 10 MG PO HS PRN for SLEEP, (Reported) Discontinued Reason: No Longer Taking Entered as Reported by: KARINA RAPHAEL on 08/06/201605 Last Action: Discontinued Review of Systems Review of Systems Constitutional: No fever; malaise, weakness EENTM: no symptoms reported Respiratory: no symptoms reported; No cough, No short of breath Cardiovascular: no symptoms reported Gastrointestinal: see HPI; No abdominal pain; diarrhea, loss of appetite, nausea; No vomiting Genitourinary: see HPI, dysuria Musculoskeletal: see HPI Skin: see HPI Psychiatric/Neurological: No Symptoms Reported Hematologic/Lymphatic: No Symptoms Reported Immunological/Allergic: no symptoms reported Past Lkamcps-Lkkahq-Egtyzt Hx Patient Social History Tobacco Use?: Yes Tobacco type used: Cigarettes Smoking Status: Former Smoker Smokeless Tobacco Frequency: Never a User Use of E-Cig and/or Vaping dev: No Use of E-Cig and/or Vaping Rj: Never a User Substance use?: Yes Substance type: Opiates/Opioids, Misuse of prescript meds Alcohol Use?: Yes Alcohol type: Beer, Hard Liquor Alcohol Frequency: Daily Pt feels they are or have been: No Immunizations Up To Date Tetanus Booster (TDap): Less than 5yrs PED Vaccines UTD: No COVID19 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: [employer] Seasonal Allergies Seasonal Allergies: No Past Medical History Surgeries: Yes (BILAT HIP REPLACEMENTS X 22; WOUND DEBRIDEMENTS) Abdominal, Appendectomy, Cardiac, Defibrillator, Joint Replacement, Orthopedic, Pacemaker Respiratory: Yes Asthma, COPD Currently Using CPAP: No Currently Using BIPAP: No Cardiac: Yes (PACEMAKER, CARDIAC ARREST, SELF - REPORTED [place] X 8; CHF) Atrial Fibrillation, Chronic Edema/Swelling, Coronary Artery Disease, Congenital Heart Disease, Heart Attack, Hypertension, Irregular Heartbeat Neurological: Yes Neuropathy Reproductive Disorders: No Sexually Transmitted Disease: No HIV/AIDS: No Genitourinary: Yes Neurogenic Bladder Gastrointestinal: Yes Abdominal Hernia, Chronic Constipation Musculoskeletal: Yes Arthritis, Chronic Back Pain, Fractures Endocrine: Yes Diabetes, Insulin dep HEENT: Yes Dysphagia Loss of Vision: Denies Hearing Impairment: Hard of Hearing Cancer: No Psychosocial: Yes Suicide Attempts, Depression Integumentary: Yes (recurrent wound issues) Recent Skin Changes Blood Disorders: No Adverse Reaction/Blood Tranf: Yes (HIGH FEVER AND CHILLS) Family Medical History COPD Diabetes mellitus Adopted, unknown FH Physical Exam Vital Signs Vital Signs - First Documented 07/31/22 20:05 Temp 37.0 Pulse 99 Resp 18 B/P (MAP) 159/106 (123) O2 Delivery Room Air Capillary Refill : Less Than 3 Seconds Height, Weight, BMI Height: 5'8.00" Weight: 170lbs. 8.0oz. [id number]; 24.00 BMI Method:Stated General Appearance: No Apparent Distress, WD/WN, Obese, Other (VERY MALODOROUS. PT'S CLOTHING SATURATED FROM WAIST TO KNEES IN FECES AND URINE, WITH CLOTHING STUCK TO HIS SKIN DUE TO DRIED FECES. THERE IS DRIED FECES ALL THE WAY DOWN TO H IS TOES. DOES NOT APPEAR TO BE ILL OR IN ANY DISCOMFORT OR DISTRESS. ) Neck: Normal Inspection Respiratory: Normal Breath Sounds, No Accessory Muscle Use, No Respiratory Distress Cardiovascular: Regular Rate, Rhythm, No Murmur Gastrointestinal: Non Tender, Soft Genital/Rectal: Other (PT HAS EXTENSIVE SKIN BREAKDOWN AND ERYTHEMA FROM HIS WAIST TO UPPER THIGHS--CIRCUMFERENTIALLY. NO BLEEDING. NO DRAINAGE. ) Extremity: Normal Capillary Refill, Non Tender, Pedal Edema (2+ EDEMA BILATERALLY), Other (BILATERAL HIP TENDERNESS--RIGHT > LEFT. 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74 MMOL/L (0.50-2.00) *H Within 3hrs of presentation: Admin fluids, Admin ABX, Blood cultures prior to ABX's, Focus exam, Lactate level Progress/Results/Core Measures Suspected Sepsis SIRS Temperature: Pulse: 99 Respiratory Rate: 18 Laboratory Tests 07/31/22 20:58: White Blood Count 11.8H Blood Pressure 159 /106 Mean: 123 07/31/22 20:58: Lactic Acid Level 2.39*H 07/31/22 22:48: Lactic Acid Level 2.74*H Laboratory Tests 07/31/22 20:58: Creatinine 0.74, INR Comment 0.9, Platelet Count 284, Total Bilirubin 0.6 Results/Orders Lab Results Laboratory Tests Test 07/31/22 20:08 07/31/22 20:58 07/31/22 21:42 07/31/22 22:48 Range/Units Stool Occult Blood Immunoassay NEGATIVE NEGATIVE Influenza Type A (RT-PCR) Not Detected Not Detecte Influenza Type B (RT-PCR) Not Detected Not Detecte SARS-CoV-2 RNA (RT-PCR) Not Detected Not Detecte White Blood Count 11.8 H 4.3-11.0 10^3/uL Red Blood Count 4.23 L 4.30-5.52 10^6/uL Hemoglobin 13.9 13.3-17.7 g/dL Hematocrit 42 40-54 % Mean Corpuscular Volume 98 80-99 fL Mean Corpuscular Hemoglobin 33 25-34 pg Mean Corpuscular Hemoglobin Concent 33 32-36 g/dL Red Cell Distribution Width 13.2 10.0-14.5 % Platelet Count 284 130-400 10^3/uL Mean Platelet Volume 10.4 9.0-12.2 fL Immature Granulocyte % (Auto) 1 % Neutrophils (%) (Auto) 66 42-75 % Lymphocytes (%) (Auto) 19 12-44 % Monocytes (%) (Auto) 12 0-12 % Eosinophils (%) (Auto) 2 0-10 % Basophils (%) (Auto) 1 0-10 % Neutrophils # (Auto) 7.8 1.8-7.8 10^3/uL Lymphocytes # (Auto) 2.2 1.0-4.0 10^3/uL Monocytes # (Auto) 1.4 H 0.0-1.0 10^3/uL Eosinophils # (Auto) 0.2 0.0-0.3 10^3/uL Basophils # (Auto) 0.1 0.0-0.1 10^3/uL Immature Granulocyte # (Auto) 0.1 0.0-0.1 10^3/uL Erythrocyte Sedimentation Rate 31 H 0-30 MM/HR Prothrombin Time 12.9 12.2-14.7 SEC INR Comment 0.9 0.8-1.4 Activated Partial Thromboplast Time 26 24-35 SEC Sodium Level 139 135-145 MMOL/L Potassium Level 3.5 L 3.6-5.0 MMOL/L Chloride Level 103 98-107 MMOL/L Carbon Dioxide Level 23 21-32 MMOL/L Anion Gap 13 5-14 MMOL/L Blood Urea Nitrogen 15 7-18 MG/DL Creatinine 0.74 0.60-1.30 MG/DL Estimat Glomerular Filtration Rate 98 BUN/Creatinine Ratio 20 Glucose Level 89 70-105 MG/DL Lactic Acid Level 2.39 *H 2.74 *H 0.50-2.00 MMOL/L Calcium Level 8.4 L 8.5-10.1 MG/DL Corrected Calcium 9.4 8.5-10.1 MG/DL Magnesium Level 1.4 L 1.6-2.4 MG/DL Total Bilirubin 0.6 0.1-1.0 MG/DL Aspartate Amino Transf (AST/SGOT) 18 5-34 U/L Alanine Aminotransferase (ALT/SGPT) 8 0-55 U/L Alkaline Phosphatase 138 H 40-136 U/L Total Creatine Kinase 20 L 30-200 U/L Creatine Kinase MB 1.3 <6.6 NG/ML Myoglobin 36.4 10.0-92.0 NG/ML Troponin I 0.044 H <0.028 NG/ML C-Reactive Protein High Sensitivity 4.80 H 0.00-0.50 MG/DL B-Type Natriuretic Peptide 271.9 H <100.0 PG/ML Total Protein 6.4 6.4-8.2 GM/DL Albumin 2.8 L 3.2-4.5 GM/DL Amylase Level 39 25-125 U/L Lipase 30 8-78 U/L Procalcitonin 0.15 H <0.10 NG/ML Serum Alcohol 132 H <10 MG/DL Urine Color YELLOW Urine Clarity CLEAR Urine pH 6.5 5-9 Urine Specific [place] 1.005 L 1.016-1.022 Urine Protein NEGATIVE NEGATIVE Urine Glucose (UA) NEGATIVE NEGATIVE Urine Ketones NEGATIVE NEGATIVE Urine Nitrite NEGATIVE NEGATIVE Urine Bilirubin NEGATIVE NEGATIVE Urine Urobilinogen 0.2 < = 1.0 MG/DL Urine Leukocyte Esterase 2+ H NEGATIVE Urine RBC (Auto) NEGATIVE NEGATIVE Urine RBC NONE /HPF Urine WBC 10-25 H /HPF Urine Squamous Epithelial Cells 0-2 /HPF Urine Crystals NONE /LPF Urine Bacteria MODERATE H /HPF Urine Casts PRESENT /LPF Urine Hyaline Casts RARE /LPF Urine Mucus NEGATIVE /LPF Urine Culture Indicated CULTURE PENDING Urine Opiates Screen NEGATIVE NEGATIVE Urine Oxycodone Screen NEGATIVE NEGATIVE Urine Methadone Screen NEGATIVE NEGATIVE Urine Propoxyphene Screen NEGATIVE NEGATIVE Urine Barbiturates Screen NEGATIVE NEGATIVE Ur Tricyclic Antidepressants Screen NEGATIVE NEGATIVE Urine Phencyclidine Screen NEGATIVE NEGATIVE Urine Amphetamines Screen NEGATIVE NEGATIVE Urine Methamphetamines Screen NEGATIVE NEGATIVE Urine Benzodiazepines Screen NEGATIVE NEGATIVE Urine Cocaine Screen NEGATIVE NEGATIVE Urine Cannabinoids Screen NEGATIVE NEGATIVE Micro Results Microbiology 07/31/22 Blood Culture - Preliminary, Resulted No growth 07/31/22 Urine Culture - Preliminary, Resulted Probable Enterococcus Species Culture In Progress 07/31/22 Blood Culture - Preliminary, Resulted No growth 07/31/22 C. difficile DNA Amplification - Final, Complete 07/31/22 Fecal Leukocyte Stain - Final, Resulted 07/31/22 C. difficile GDH Antigen & Toxins - Final, Resulted 07/31/22 Stool Culture, Resulted Pending My Orders Orders - WILFRED CAMPBELL DO Ed Iv/Invasive Line Start (07/31/22 20:17) Ekg Tracing (07/31/22 20:17) Catheter(Urinary) Insert & Ass 03,15 (07/31/22 20:17) O2 (07/31/22 20:17) Monitor-Rhythm Ecg Trace Only (07/31/22 20:17) Alcohol (07/31/22 20:17) Amylase (07/31/22 20:17) Cbc With Automated Diff (07/31/22 20:17) Comprehensive Metabolic Panel (07/31/22 20:17) Creatine Kinase (07/31/22 20:17) Creatine Kinase Mb (07/31/22 20:17) Hs C Reactive Protein (07/31/22 20:17) Lactic Acid Analyzer (07/31/22 20:17) Lipase (07/31/22 20:17) Magnesium (07/31/22 20:17) Procalcitonin (Pct) (07/31/22 20:17) Protime With Inr (07/31/22 20:17) Partial Thromboplastin Time (07/31/22 20:17) Ua Culture If Indicated (07/31/22 20:17) Stool Culture (07/31/22 20:17) Fecal Wbc (07/31/22 20:17) Erythrocyte Sedimentation Rate (07/31/22 20:17) Myoglobin Serum (07/31/22 20:17) Troponin I Ernesto (07/31/22 20:17) Chest 1 View, Ap/Pa Only (07/31/22 20:17) Pelvis/Sid Hips 5> Views (07/31/22 20:17) Ed Iv/Invasive Line Start (07/31/22 20:17) Lactated Ringers (Lr 1000 Ml Iv Solution (07/31/22 20:30) Ondansetron Injection (Zofran Injectio (07/31/22 20:30) Covid 19 Inhouse Test (07/31/22 20:17) Blood Culture (07/31/22 20:17) Sputum Culture (07/31/22 20:17) Urine Culture (07/31/22 20:17) Ed Iv/Invasive Line Start (07/31/22 20:17) Ed Iv/Invasive Line Start (07/31/22 20:17) Vital Signs Adult Sepsis Patie Q15M (07/31/22 20:17) O2 (07/31/22 20:17) Remove Rings In Anticipation O (07/31/22 20:17) Lidocaine 2% (Urojet) (Xylocaine Urojet) (07/31/22 20:30) Influenza A And B By Pcr (07/31/22 20:17) Isolation Central Supply Req (07/31/22 20:17) C Difficile Ag + Toxin A/B. (07/31/22 20:17) Isolation Central Supply Req (07/31/22 20:17) Occult Blood Stool (07/31/22 20:26) Drug Screen Stat (Urine) (07/31/22 UNK) Bnp Randall (07/31/22 21:46) Ed Iv/Invasive Line Start (07/31/22 21:46) Magnesium 1 Gm/100 Ml Ivpb (Magnesium Donovan (07/31/22 22:00) Ct Vy Chest/Noang Abd-Pelv W (07/31/22 21:53) Iohexol Injection (Omnipaque 350 Mg/Ml 1 (07/31/22 22:00) Received Contrast (Hold Metformin- Contr (07/31/22 22:00) Ns (Ivpb) (Sodium Chloride 0.9% Ivpb Bag (07/31/22 22:00) Vital Signs/I&O 07/31/22 20:05 Temp 37.0 Pulse 99 Resp 18 B/P (MAP) 159/106 (123) O2 Delivery Room Air 08/01/22 00:00 Intake Total 1000 ml Balance 1000 ml Capillary Refill : Less Than 3 Seconds Blood Pressure Mean: 123 Progress Note : Progress Note CLOTHING HAD TO BE CUT OFF HIM, IT WAS ADHERED TO HIS SKIN IN SEVERAL PLACES. PT CLEANED ON ARRIVAL. STOOL SPECIMEN SENT TO LAB GIVEN IV FLUIDS SEPSIS PROTOCOL INITIATED GIVEN SINGLE DOSE OF ANTIBIOTICS PER SEPSIS PROTOCOL AND UTI FINDINGS ON UA. WILL HOLD ADDITIONAL ANTIBIOTICS DUE TO PT'S DIARRHEA, AND STILL PENDING C. DIFFICILE TEST RESULTS. PT WANTING SOMETHING FOR PAIN LITERALLY SOON HE ARRIVES AND FOR THE ENTIRE ER STAY. NO DIARRHEA OR NAUSEA FOR ENTIRE ER STAY. NO DETERIORATION IN PT'S CONDITION DURING ER STAY DISCUSSED AT LENGTH WITH PT ABOUT HIS LIVING SITUATION AND HIS INABILITY TO CARE FOR HIMSELF, AND SUGGESTED THAT HE NEEDED ASSISTED LIVING OR RETIREMENT PLACEMENT. HE ADAMANTLY REFUSES. ECG Initial ECG Impression Date: Jul 31, 2022 Initial ECG Impression Time: 20:44 Initial ECG Rate: 94 Initial ECG Impression: Nonspecific Changes Initial ECG Comparisson: Unchanged Comment ATRIAL PACING Diagnostic Imaging Comments CXR-- PER RADIOLOGIST REPORT AT 2250 FINDINGS: Cardiomegaly with stable pulmonary vascular congestion. No new focal pulmonary opacity. No pleural effusion or pneumothorax. Cardiac pacer. IMPRESSION: Stable cardiomegaly and prominence of the pulmonary vascularity. Lungs are clear. PELVIS XRAY--PER RADIOLOGIST REPORT AT 2250 FINDINGS: Stable absence of the femoral heads, bilaterally. Cerclage wires about both proximal femurs. Retained acetabular component on the left. No fractures are identified. Soft tissue shadows are unremarkable. IMPRESSION: No acute radiographic finding in the pelvis or either hip. Stable chronic findings as above. CT CHEST/ABDOMEN/PELVIS--PER RADIOLOGIST REPORT AT 2250 FINDINGS: CTA CHEST: No pulmonary artery filling defects. Normal caliber thoracic aorta without evidence of dissection. Moderate atherosclerotic calcifications. Cardiac pacer. Cardiomegaly. No pericardial effusion. Stable fibrotic changes in the left upper lobe. No pleural effusion or pneumothorax. No mediastinal, hilar or axillary lymphadenopathy. No acute osseous finding. CTA ABDOMEN/PELVIS: Liver, gallbladder, pancreas, spleen, adrenals, kidneys and collecting systems are negative. Fermin catheter. The bulb appears to be inflated within the proximal urethra. No free intraperitoneal air or fluid. No lymphadenopathy. No evidence of bowel obstruction. No evidence of appendicitis. No acute osseous finding. Bilateral femoral head resection. Retained acetabular component on the left. IMPRESSION: 1. No pulmonary emboli. Normal caliber thoracic aorta without evidence of dissection. 2. No acute CT finding in the chest. 3. Fermin catheter tip is within the bladder. The bulb appears to be inflated in the proximal urethra. This should be repositioned. Reviewed: Reviewed by Pr Departure Communication (Admissions) 2300--SPOKE WITH DR. FREEMAN, HOSPITALIST FOR [facility]. ACCEPTS PT FOR ADMIT. ADVISES TO HOLD ANY ADDITIONAL ANTIBIOTICS AT THIS TIME, DUE TO PT'S DIARRHEA, AND PENDING STOOL CULTURES., WITHOUT ANY SIGNS OF SEPSIS AT THIS TIME. Impression Primary Impression: Diarrhea Additional Impressions: UTI (urinary tract infection) Unable to care for self Chronic pain NON-MOBILE Alcohol intoxication in active alcoholic Lactic acidosis ELEVATED TROPONIN AND BNP Hypomagnesemia Hypertension Disposition: ADMITTED INPATIENT Condition: Stable Admissions Decision to Admit Reason: Admit from ER (General) Decision to Admit/Date: Jul 31, 2022 Time/Decision to Admit Time: 23:00 Departure-Patient Inst. Referrals: OLEGARIO ROSENTHAL MD (PCP/Family) Primary Care Physician WILFRED CAMPBELL DO Jul 31, 2022 20:48
[2022-07-31 21:10] LABS: BASOPHILS # (AUTO) 0.1 10^3/uL (0.0-0.1); BASOPHILS % (AUTO) 1 % (0-10); EOSINOPHILS # (AUTO) 0.2 10^3/uL (0.0-0.3); EOSINOPHILS % (AUTO) 2 % (0-10); HEMATOCRIT 42 % (40-54); HEMOGLOBIN 13.9 g/dL (13.3-17.7); LYMPHOCYTES # (AUTO) 2.2 10^3/uL (1.0-4.0); LYMPHOCYTES % (AUTO) 19 % (12-44); MEAN CORPUSCULAR HEMOGLOBIN 33 pg (25-34); MEAN CORPUSCULAR HGB CONC 33 g/dL (32-36); MEAN CORPUSCULAR VOLUME 98 fL (80-99); MEAN PLATELET VOLUME 10.4 fL (9.0-12.2); MONOCYTES # (AUTO) 1.4 10^3/uL (0.0-1.0); MONOCYTES % (AUTO) 12 % (0-12); NEUTROPHILS # (AUTO) 7.8 10^3/uL (1.8-7.8); NEUTROPHILS % (AUTO) 66 % (42-75); PLATELET COUNT 284 10^3/uL (130-400); WHITE BLOOD COUNT 11.8 10^3/uL (4.3-11.0)
[2022-07-31 21:22] LABS: ALBUMIN 2.8 GM/DL (3.2-4.5); INR 0.9 (0.8-1.4); POTASSIUM 3.5 MMOL/L (3.6-5.0); PROTHROMBIN TIME PATIENT 12.9 SEC (12.2-14.7)
[2022-07-31 21:23] LABS: CALCIUM 8.4 MG/DL (8.5-10.1)
[2022-07-31 21:25] LABS: TOTAL PROTEIN 6.4 GM/DL (6.4-8.2)
[2022-07-31 21:26] LABS: BILIRUBIN,TOTAL 0.6 MG/DL (0.1-1.0)
[2022-07-31 21:28] LABS: CREATININE SERUM 0.74 MG/DL (0.60-1.30)
[2022-07-31 21:31] LABS: MAGNESIUM 1.4 MG/DL (1.6-2.4)
[2022-07-31 21:33] LABS: ERYTHROCYTE SEDIMENTATION RATE 31 MM/HR (0-30)
--- NOTE | 2022-07-31 21:33 | Diagnostic Imaging Report ---
EXAM: Chest 1 view, AP/PA only INDICATION: Weakness. COMPARISON: Chest radiograph 09/29/2020. FINDINGS: Cardiomegaly with stable pulmonary vascular congestion. No new focal pulmonary opacity. No pleural effusion or pneumothorax. Cardiac pacer. IMPRESSION: Stable cardiomegaly and prominence of the pulmonary vascularity. Lungs are clear. Dictated by: Dictated on workstation # [id number]
--- NOTE | 2022-07-31 21:34 | Diagnostic Imaging Report ---
EXAM: Pelvis/ashlee hips 5> views INDICATION: Pelvic pain. COMPARISON: 09/18/2019. FINDINGS: Stable absence of the femoral heads, bilaterally. Cerclage wires about both proximal femurs. Retained acetabular component on the left. No fractures are identified. Soft tissue shadows are unremarkable. IMPRESSION: No acute radiographic finding in the pelvis or either hip. Stable chronic findings as above. Dictated by: Dictated on workstation # [id number]
[2022-07-31 21:42] LABS: CREATINE KINASE MB 1.3 NG/ML (<6.6)
[2022-07-31 21:58] LABS: CLARITY,URINE CLEAR; COLOR,URINE YELLOW; GLUCOSE, URINE (UA) NEGATIVE (NEGATIVE); KETONES,URINE NEGATIVE (NEGATIVE); PH,URINE 6.5 (5-9); PROTEIN,URINE NEGATIVE (NEGATIVE)
[2022-07-31 21:59] LABS: BACTERIA,URINE MODERATE /HPF; BILIRUBIN,URINE NEGATIVE (NEGATIVE); HYALINE CASTS, URINE RARE /LPF; LEUKOCYTE ESTERASE ,URINE 2+ (NEGATIVE); NITRITE,URINE NEGATIVE (NEGATIVE); SQUAMOUS EPITHELIAL CELL,UR 0-2 /HPF
[2022-07-31] MEDS ORDERED: IOHEXOL 350 MG/ML 100 ML (OMNIPAQUE 350) VIAL IV ONE (22:00)
[2022-07-31] MEDS ORDERED: MAGNESIUM 1 GM/100 ML IVPB 100 ML IV ONE (22:00)
[2022-07-31] MEDS ORDERED: HOLD METFORMIN - RECEIVED CONTRAST 20 ML VIAL IV SCH (22:00)
[2022-07-31] MEDS ORDERED: NS 100 ML (IVPB) BAG IV ONE (22:00)
[2022-07-31 22:03] LABS: AMPHETAMINE SCREEN, URINE NEGATIVE (NEGATIVE); BARBITURATE SCREEN URINE NEGATIVE (NEGATIVE); BENZODIAZEPINES SCREEN URINE NEGATIVE (NEGATIVE); CANNABINOID SCREEN, URINE NEGATIVE (NEGATIVE); COCAINE SCREEN URINE NEGATIVE (NEGATIVE); METHADONE STAT NEGATIVE (NEGATIVE); OPIATE SCREEN URINE NEGATIVE (NEGATIVE); OXYCODONE STAT NEGATIVE (NEGATIVE); PROPOXYPHENE STAT NEGATIVE (NEGATIVE); TRICYCLIC ANTIDEPRESSANTS SCRE NEGATIVE (NEGATIVE)
--- NOTE | 2022-07-31 22:49 | Diagnostic Imaging Report ---
INDICATION: CP, Nausea, diarrhea TECHNIQUE: CTA chest, abdomen and pelvis. Thin axial sections through the chest, abdomen and pelvis are obtained following intravenous contrast bolus. Multiplanar MIP images were reconstructed and reviewed. All CT scans use one or more of the following dose optimizing techniques: automated exposure control, MA and/or KvP adjustment based on patient size and exam type or iterative reconstruction. COMPARISON: CT chest, abdomen and pelvis without contrast 01/25/2017. FINDINGS: CTA CHEST: No pulmonary artery filling defects. Normal caliber thoracic aorta without evidence of dissection. Moderate atherosclerotic calcifications. Cardiac pacer. Cardiomegaly. No pericardial effusion. Stable fibrotic changes in the left upper lobe. No pleural effusion or pneumothorax. No mediastinal, hilar or axillary lymphadenopathy. No acute osseous finding. CTA ABDOMEN/PELVIS: Liver, gallbladder, pancreas, spleen, adrenals, kidneys and collecting systems are negative. Fermin catheter. The bulb appears to be inflated within the proximal urethra. No free intraperitoneal air or fluid. No lymphadenopathy. No evidence of bowel obstruction. No evidence of appendicitis. No acute osseous finding. Bilateral femoral head resection. Retained acetabular component on the left. IMPRESSION: 1. No pulmonary emboli. Normal caliber thoracic aorta without evidence of dissection. 2. No acute CT finding in the chest. 3. Fermin catheter tip is within the bladder. The bulb appears to be inflated in the proximal urethra. This should be repositioned. Dictated by: Dictated on workstation # [id number]
[2022-07-31] MEDS ORDERED: CEFEPIME INJECTION 1,000 MG in NS (IVPB) 50 ML IV ONE (23:15)
[2022-07-31 23:45] VITALS: BP 192/94
[2022-08-01] VITALS (9 sets, daily range): BP systolic 128–196; BP diastolic 68–119
[2022-08-01] MEDS ORDERED: 1/2 NS IV SOLUTION 1,000 ML IV PRN (00:45)
[2022-08-01] MEDS ORDERED: ONDANSETRON 4 MG (ZOFRAN) ORAL DISSOLVE TAB SL PRN (00:45)
[2022-08-01] MEDS ORDERED: LORazepam 1 MG (ATIVAN) TAB PO PRN (00:45)
[2022-08-01] MEDS ORDERED: LORazepam INJ 2 MG/ML (ATIVAN) VIAL IV PRN (00:45)
[2022-08-01] MEDS ORDERED: LORazepam INJ 2 MG/ML (ATIVAN) VIAL IM/IV PRN (00:45)
[2022-08-01] MEDS ORDERED: ONDANSETRON 4 MG/2 ML (SDV) Z0FRAN IV PRN (00:45)
[2022-08-01] MEDS ORDERED: ANTACID SUSP 30 ML UDC (MYLANTA) PO PRN (00:45)
[2022-08-01] MEDS ORDERED: SENNA W/DOCUSATE (SENOKOT S) TABLET PO PRN (00:45)
[2022-08-01] MEDS: D5 1/2 NS W/KCL 20 MEQ/L 1,000 ML IV SCH ×4 (01:43→22:17)
[2022-08-01 05:44] LABS: MAGNESIUM 1.5 MG/DL (1.6-2.4)
[2022-08-01] MEDS: THIAMINE INJECTION 100 MG, FOLIC ACID INJECTION 1 MG, MAGNESIUM SULFATE 2 GM, VITAMIN M... IV SCH ×5 (08:09)
[2022-08-01] MEDS ORDERED: HYPOCHLOROUS ACID/NaCl (VASHE) 250 ML IR SCH (11:30)
--- NOTE | 2022-08-01 11:36 | Wound Care Assessment ---
Wound Care Assessment Date Seen by Provider: Aug 01, 2022 Time Seen by Provider: 11:31 Chief Complaint 1. L. iliac crest full thickness ulcer 2. R. flank full thickness ulcer (skin folds) 3. Cutaneous cadidiasis 4. Poor hygiene with chronic diarrhea HPI This unfortunate 71 year old patient lives alone. He reports an in staff home therapy rn 5 days per week but notes he does not have care on the weekends. He presented to our facility with alcohol intoxication and diarrhea and was covered in feces. There is evidence of moisture/fecal related dermatitis in inguinal region and skin folds with several areas of full thickness skin loss. 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 Hardware was removed and these ulcers are now healed. Pelvic films upon admit are reassuring without evidence of new osteomyelitis (despite elevated CRP). Nasir has a long h/o noncompliance in follow up and following medical recommendations. He notes that he does have plans to begin care in the wound care clinic in [place] following hospitalization. He states that the alcohol use was a "one time thing" but he does have significant hypoalbuminemia and hypomagnesemia that would point otherwise. Past Medical History: Admits Diabetes Type II, Admits Heart Disease Smoking Status: Former Smoker Review of Systems Gastrointestinal: Diarrhea Neurological: Weakness Exam Vital Signs Date Time Temp Pulse Resp B/P (MAP) Pulse Ox O2 Delivery O2 Flow Rate FiO2 08/01/22 08:06 36.8 85 20 146/69 (94) 95 Room Air Capillary Refill : Less Than 3 Seconds General Appearance: no apparent distress, obese HEENT: other (hearing wnl) Neck: full range of motion Cardiovascular: no edema Respiratory: no respiratory distress, no accessory muscle use Extremities: other (lack of use of lower extremities) Neurologic/Psychiatric: alert, normal mood/affect, oriented x 3 Skin: rash Skin Problem Location: other (skin folds) Skin Character: erythema, linear, patchy 1. L. iliac crest: 1x1.2x0.2 cm. The epithelialization is none, there is no tunneling or undermining. Drainage is large and serous, granulation is none, necrotic is large and slough. Margins are flat 2. R. flank (skin folds): the epithelialization is none. There is no tunneling or undermining. Drainage is large and serous. Granulation is large and pink. necrotic is small and slough, margins are flat. There are numerous linger full thickness areas of breakdown in skin folds. 3. Cutaneous candidal infection in inguinal region bilaterall and in skin folds Results Laboratory Tests 07/31/22 20:08: Stool Occult Blood Immunoassay NEGATIVE, Influenza Type A (RT-PCR) Not Detected, Influenza Type B (RT-PCR) Not Detected, SARS-CoV-2 RNA (RT-PCR) Not Detected 07/31/22 20:58: White Blood Count 11.8H, Red Blood Count 4.23L, Hemoglobin 13.9, Hematocrit 42, Mean Corpuscular Volume 98, Mean Corpuscular Hemoglobin 33, Mean Corpuscular Hemoglobin Concent 33, Red Cell Distribution Width 13.2, Platelet Count 284, Mean Platelet Volume 10.4, Immature Granulocyte % (Auto) 1, Neutrophils (%) (Auto) 66, Lymphocytes (%) (Auto) 19, Monocytes (%) (Auto) 12, Eosinophils (%) (Auto) 2, Basophils (%) (Auto) 1, Neutrophils # (Auto) 7.8, Lymphocytes # (Auto) 2.2, Monocytes # (Auto) 1.4H, Eosinophils # (Auto) 0.2, Basophils # (Auto) 0.1, Immature Granulocyte # (Auto) 0.1, Erythrocyte Sedimentation Rate 31H, P rothrombin Time 12.9, INR Comment 0.9, Activated Partial Thromboplast Time 26, Sodium Level 139, Potassium Level 3.5L, Chloride Level 103, Carbon Dioxide Level 23, Anion Gap 13, Blood Urea Nitrogen 15, Creatinine 0.74, Estimat Glomerular Filtration Rate 98, BUN/Creatinine Ratio 20, Glucose Level 89, Lactic Acid Level 2.39*H, Calcium Level 8.4L, Corrected Calcium 9.4, Magnesium Level 1.4L, Total Bilirubin 0.6, Aspartate Amino Transf (AST/SGOT) 18, Alanine Aminotransferase (ALT/SGPT) 8, Alkaline Phosphatase 138H, Total Creatine Kinase 20L, Creatine Kinase MB 1.3, Myoglobin 36.4, Troponin I 0.044H, C-Reactive Protein High Sensitivity 4.80H, B-Type Natriuretic Peptide 271.9H, Total Protein 6.4, Albumin 2.8L, Amylase Level 39, Lipase 30, Procalcitonin 0.15H, Serum Alcohol 132H 07/31/22 21:42: Urine Color YELLOW, Urine Clarity CLEAR, Urine pH 6.5, Urine Specific [place] 1.005L, Urine Protein NEGATIVE, Urine Glucose (UA) NEGATIVE, Urine Ketones NEGATIVE, Urine Nitrite NEGATIVE, Urine Bilirubin NEGATIVE, Urine Urobilinogen 0.2, Urine Leukocyte Esterase 2+H, Urine RBC (Auto) NEGATIVE, Urine RBC NONE, Urine WBC 10-25H, Urine Squamous Epithelial Cells 0-2, Urine Crystals NONE, Urine Bacteria MODERATEH, Urine Casts PRESENT, Urine Hyaline Casts RARE, Urine Mucus NEGATIVE, Urine Culture Indicated CULTURE PENDING, Urine Opiates Screen NEGATIVE, Urine Oxycodone Screen NEGATIVE, Urine Methadone Screen NEGATIVE, Urine Propoxyphene Screen NEGATIVE, Urine Barbiturates Screen NEGATIVE, Ur Tricyclic Antidepressants Screen NEGATIVE, Urine Phencyclidine Screen NEGATIVE, Urine Amphetamines Screen NEGATIVE, Urine Methamphetamines Screen NEGATIVE, Urine Benzodiazepines Screen NEGATIVE, Urine Cocaine Screen NEGATIVE, Urine Cannabinoids Screen NEGATIVE 07/31/22 22:48: Lactic Acid Level 2.74*H 08/01/22 00:37: Troponin I 0.046H 08/01/22 00:56: Lactic Acid Level 1.84 08/01/22 05:11: Troponin I 0.030H, Magnesium Level 1.5L Microbiology 07/31/22 Fecal Leukocyte Stain, Resulted Pending 07/31/22 C. difficile GDH Antigen & Toxins - Final, Resulted 07/31/22 Stool Culture, Resulted Pending Microbiology 07/31/22 Fecal Leukocyte Stain, Resulted Pending 07/31/22 C. difficile GDH Antigen & Toxins - Final, Resulted 07/31/22 Stool Culture, Resulted Pending Assessment/Plan/Dx Assessment: 1. Full thickness non pressure ulcer left. iliac crest 2. Full thickness non pressure ulcer right flank/skin folds 3. Cutaneous candidiasis 4. PEM 5. ETOH abuse/intoxication 6. Immobility 7. Diarrheal illness 8. Poor personal care Plan: 1. Cleanse all open areas with Vashe. Apply silver alginate hydrofiber to wound bed and cover with bordered foam dressing. Change daily 2. Miconazole powder bid with interdry to skin folds and areas with candidal infection 3. Cleanse under skin folds thoroughly and daily with soap and water. Dry entirely before application of powder 4. Ensure tid 5. Defer ETOH treatment to primary team 6. SS consult warranted due to poor support system and inability to care for himself at home PATTI CHILDS MD Aug 01, 2022 11:36
[2022-08-01] MEDS ORDERED: GABA300C PO (15:17)
--- NOTE | 2022-08-01 15:51 | History & Physical-Hospitalist ---
SUNDAR MCCANN 08/01/22 1551: History of Present Illness HPI/Chief Complaint CC: Diarrhea 71yo M with h/o AVN b/l hips presented to the ED last night with complaints of B/L hip pain following a fall 1 week ago. History is limited due to patient being poor historian. 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 Pt states that he has been having hip pain since the fall. During this time, pt states that he also started to experience diarrhea. Pt denies any blood in his stool and states that it resolved yesterday. Per ED note, pt had been stuck in his recliner for 6 days following this fall and presented to the ED covered in fecal matter and urine. Workup in the ED found an elevated WBC, low potassium, a positive troponin, elevated BNP and CRP, and a lactic acid of 2.74. Pt was also found to have a serum alcohol of 132. Pt had CT Chest/Thorax and CXR that were unr emarkable, except for stable cardiomegaly and prominence of the pulmonary vascularity. XRAY of Pelvis/Hips was remarkable only for stable chronic findings. Pt also had multiple EKGs that showed an incomplete RBBB and possible old lateral myocardial infarct and inferior infarct. Pt had a positive C-diff Ag and C-diff amplication. Hemoccult was negative. Today, pt states that he is feeling much better. Pt denies having had any diarrhea since being admitted. Pt has been able to eat without any issues. Pt has no complaints at this time. Pt's troponin has improved from 0.046 to 0.030 today. Lactic acid has also improved from 2.74 to 1.84. Pt denies nausea, vomiting, SOA, and abd pain. Source: patient, RN notes reviewed, old records Date Seen 08/01/22 Time Seen by a Provider: 15:45 Attending Physician Uriel Cardona MD PCP Admitting Physician: Juanito Dumont MD Attending Physician: Juanito Dumont MD Referring Physician Date of Admission Jul 31, 2022 at 23:00 Home Medications & Allergies Home Medications Reviewed patient Home Medication Reconciliation performed by pharmacy medication reconciliations health care technician and/or nursing. Patients Allergies have been reviewed. Allergies Allergies Coded Allergies codeine (Verified Allergy, Mild, HIVES...TAKES OXYCODONE & MS CONTIN AT HOME, 03/11/19) streptokinase (Verified Allergy, Unknown, 03/11/19) Past Drakzbr-Jcgwjh-Lkkfsw Hx Patient Social History Tobacco Use?: No Tobacco type used: Cigarettes Smoking Status: Former Smoker Smokeless Tobacco Frequency: Never a User Use of E-Cig and/or Vaping dev: No Use of E-Cig and/or Vaping Rj: Never a User Substance use?: No Alcohol Use?: Yes Alcohol type: Beer, Other (mix drinks) Alcohol Frequency: Couple times a week Pt feels they are or have been: No Immunizations Up To Date Date of Influenza Vaccine: Jul 25, 2019 Tetanus Booster (TDap): Less Than 5 Years Hepatitis A: No Hepatitis B: No PED Vaccines UTD: No Date of Pneumonia Vaccine: Jul 03, 2018 Seasonal Allergies Seasonal Allergies: No Current Status Advance Directives: Yes Advance Directive Location: WITH ESSENCE Communicates: Verbally Primary Language: Norwegian Preferred Spoken Language: Norwegian Is interpretation needed?: No Sensory deficits: Hearing impairment Implanted or Applied Medical D: Implantable cardioverter, Pacemaker Past Medical History Surgeries: Abdominal, Appendectomy, Cardiac, Defibrillator, Joint Replacement, Orthopedic, Pacemaker Asthma, COPD Currently Using CPAP: No Currently Using BIPAP: No Atrial Fibrillation, Chronic Edema/Swelling, Coronary Artery Disease, Congenital Heart Disease, Heart Attack, Hypertension, Irregular Heartbeat Neuropathy Sexually Transmitted Disease: No HIV/AIDS: No Neurogenic Bladder Abdominal Hernia, Chronic Constipation Arthritis, Chronic Back Pain, Fractures Diabetes, Insulin dep Dysphagia Loss of Vision: Denies Hearing Impairment: Hard of Hearing Suicide Attempts, Depression Recent Skin Changes Blood Disorders: No Adverse Reaction/Blood Tranf: Yes (HIGH FEVER AND CHILLS) PMHx: avascular necrosis of multiple joints Asthma Chronic nonhealing hip wounds SurgHx: 11 bilateral hip surgeries, removal of hardware is nonambulatory 3 back surgeries Neck surgery Bilateral carpal tunnel release Bilateral cubital tunnel release Family Medical History Adopted, unknown FH Review of Systems Constitutional: No chills, No diaphoresis EENTM: No blurred vision, No double vision Respiratory: No cough, No dyspnea on exertion Cardiovascular: No chest pain, No syncope Gastrointestinal: No abdominal pain, No constipation, No diarrhea, No hematemesis, No melena, No nausea, No vomiting Genitourinary: No decreased output, No discharge Musculoskeletal: No back pain, No gout; joint pain (b/l hips) Skin: No change in color, No change in hair/nails Psychiatric/Neurological: Denies Depressed, Denies Emotional Problems Physical Exam Physical Exam Vital Signs Vital Signs - First Documented 07/31/22 07/31/22 20:05 23:41 Temp 37.0 Pulse 99 Resp 18 B/P (MAP) 159/106 (123) Pulse Ox 95 O2 Delivery Room Air Capillary Refill : Less Than 3 Seconds Height, Weight, BMI Height: 5'8.00" Weight: 170lbs. 8.0oz. [id number]; 28.29 BMI Method:Stated General Appearance: No Apparent Distress, Obese HEENT: PERRL/EOMI, Moist Mucous Membranes Neck: Normal Inspection, Supple Respiratory: Chest Non Tender, No Accessory Muscle Use, Wheezing (expiratory) Cardiovascular: Regular Rate, Rhythm, No Gallop, No Murmur, Other (pacemaker located on left chest ) Gastrointestinal: Non Tender, Soft, Abnormal Bowel Sounds (hyperactive) Back: Normal Inspection, No CVA Tenderness Extremity: No Calf Tenderness, Other (tenderness with palpation over b/l femoral heads) Neurologic/Psychiatric: Alert, Normal Mood/Affect Skin: Normal Color, Warm/Dry, Erythema (irritation of inguinal skin folds) Lymphatic: No Adenopathy Results Results/Procedures Labs Laboratory Tests 07/31/22 20:58 Patient resulted labs reviewed. Imaging Date of Exam:07/31/22 CHEST 1 VIEW, AP/PA ONLY EXAM: Chest 1 view, AP/PA only INDICATION: Weakness. COMPARISON: Chest radiograph 09/29/2020. FINDINGS: Cardiomegaly with stable pulmonary vascular congestion. No new focal pulmonary opacity. No pleural effusion or pneumothorax. Cardiac pacer. IMPRESSION: Stable cardiomegaly and prominence of the pulmonary vascularity. Lungs are clear. Dictated by: Dictated on workstation # [id number] Dict: 07/31/222129 Trans: 07/31/222354 [facility] [id number] Interpreted by: SHAISTA AVILA MD Electronically signed by: SHAISTA AVILA MD 07/31/22 2156 Date of Exam:07/31/22 PELVIS/AYAKA HIPS 5> VIEWS EXAM: Pelvis/ayaka hips 5> views INDICATION: Pelvic pain. COMPARISON: 09/18/2019. FINDINGS: Stable absence of the femoral heads, bilaterally. Cerclage wires about both proximal femurs. Retained acetabular component on the left. No fractures are identified. Soft tissue shadows are unremarkable. IMPRESSION: No acute radiographic finding in the pelvis or either hip. Stable chronic findings as above. Dictated by: Dictated on workstation # [id number] Dict: 07/31/222129 Trans: 07/31/222354 [facility] [id number] Interpreted by: SHAISTA AVILA MD Electronically signed by: SHAISTA AVILA MD 07/31/22 Date of Exam:07/31/22 CT LILLIE CHEST/NOANG ABD-PELV W INDICATION: CP, Nausea, diarrhea TECHNIQUE: CTA chest, abdomen and pelvis. Thin axial sections through the chest, abdomen and pelvis are obtained following intravenous contrast bolus. Multiplanar MIP images were reconstructed and reviewed. All CT scans use one or more of the following dose optimizing techniques: automated exposure control, MA and/or KvP adjustment based on patient size and exam type or iterative reconstruction. COMPARISON: CT chest, abdomen and pelvis without contrast 01/25/2017. FINDINGS: CTA CHEST: No pulmonary artery filling defects. Normal caliber thoracic aorta without evidence of dissection. Moderate atherosclerotic calcifications. Cardiac pacer. Cardiomegaly. No pericardial effusion. Stable fibrotic changes in the left upper lobe. No pleural effusion or pneumothorax. No mediastinal, hilar or axillary lymphadenopathy. No acute osseous finding. CTA ABDOMEN/PELVIS: Liver, gallbladder, pancreas, spleen, adrenals, kidneys and collecting systems are negative. Fermin catheter. The bulb appears to be inflated within the proximal urethra. No free intraperitoneal air or fluid. No lymphadenopathy. No evidence of bowel obstruction. No evidence of appendicitis. No acute osseous finding. Bilateral femoral head resection. Retained acetabular component on the left. IMPRESSION: 1. No pulmonary emboli. Normal caliber thoracic aorta without evidence of dissection. 2. No acute CT finding in the chest. 3. Fermin catheter tip is within the bladder. The bulb appears to be inflated in the proximal urethra. This should be repositioned. Dictated by: Dictated on workstation # [id number] Dict: 07/31/222236 Trans: 07/31/222357 [facility] [id number] Interpreted by: SHAISTA AVILA MD Electronically signed by: SHAISTA AVILA MD 07/31/22 3732 Assessment/Plan Admission Diagnosis Diarrhea Admission Status: Inpatient Order (span 2 midnights) Reason for Inpatient Admission: Diarrhea Assessment and Plan Diarrhea - improved C. Diff infection Alcohol Abuse AVN b/l hips CAD DM Lactic Acidosis- resolved Elevated Troponin- improved C.diff Ag +, place on contact precautions and consider administrating fidaxomicin 200mg BID or vancomycin 125mg QID Monitor for alcohol withdrawal symptoms and treat as needed Transition to ulcer/peptic bland diet Consult wound care for skin fold irritation Spoke with pt about home help. Pt states that he has home help M-F but has spoken to his son about getting help for the weekends Diagnosis/Problems Diagnosis/Problems (1) Clostridioides difficile diarrhea Status: Acute (2) Avascular necrosis Status: Chronic (3) Diarrhea Status: Acute (4) Unable to care for self (5) Alcohol abuse Status: Chronic JUANITO DUMONT MD 08/01/22 1736: Past Fyptgej-Pkqutv-Yygzao Hx Family Medical History COPD Diabetes mellitus Supervisory-Addendum Brief Verification & Attestation Participated in pt care: history, MDM, physical Personally performed: exam, history, MDM, supervision of care Care discussed with: Medical Student Procedures: n/a Patient evaluated in conjunction with medical student and electronic medical record reviewed. C. difficile studies were negative for enterotoxin and the patient is not having diarrhea so would only treat equivocal C. difficile findings if patient develops significant diarrhea. SUNDAR MCCANN Aug 01, 2022 15:51 JUANITO DUMONT MD Aug 01, 2022 17:36
[2022-08-01] MEDS: MICONAZOLE 2% POWDER (DESENEX AF) 90 GM TOP SCH (22:18)
[2022-08-02] VITALS (7 sets, daily range): BP systolic 139–192; BP diastolic 74–91
[2022-08-02] MEDS: D5 1/2 NS W/KCL 20 MEQ/L 1,000 ML IV SCH ×2 (05:20→07:20)
[2022-08-02 05:45] LABS: BASOPHILS # (AUTO) 0.1 10^3/uL (0.0-0.1); BASOPHILS % (AUTO) 1 % (0-10); EOSINOPHILS # (AUTO) 0.4 10^3/uL (0.0-0.3); EOSINOPHILS % (AUTO) 5 % (0-10); HEMATOCRIT 37 % (40-54); HEMOGLOBIN 12.2 g/dL (13.3-17.7); LYMPHOCYTES # (AUTO) 2.1 10^3/uL (1.0-4.0); LYMPHOCYTES % (AUTO) 25 % (12-44); MEAN CORPUSCULAR HEMOGLOBIN 33 pg (25-34); MEAN CORPUSCULAR HGB CONC 33 g/dL (32-36); MEAN CORPUSCULAR VOLUME 100 fL (80-99); MEAN PLATELET VOLUME 10.1 fL (9.0-12.2); MONOCYTES % (AUTO) 12 % (0-12); NEUTROPHILS # (AUTO) 4.9 10^3/uL (1.8-7.8); NEUTROPHILS % (AUTO) 58 % (42-75); PLATELET COUNT 242 10^3/uL (130-400); WHITE BLOOD COUNT 8.4 10^3/uL (4.3-11.0)
[2022-08-02 06:09] LABS: ALBUMIN 2.5 GM/DL (3.2-4.5)
[2022-08-02 06:10] LABS: POTASSIUM 4.6 MMOL/L (3.6-5.0)
[2022-08-02 06:11] LABS: CALCIUM 8.3 MG/DL (8.5-10.1)
[2022-08-02 06:12] LABS: TOTAL PROTEIN 5.5 GM/DL (6.4-8.2)
[2022-08-02 06:14] LABS: BILIRUBIN,TOTAL 0.6 MG/DL (0.1-1.0)
[2022-08-02 06:16] LABS: CREATININE SERUM 0.65 MG/DL (0.60-1.30)
[2022-08-02] MEDS: MICONAZOLE 2% POWDER (DESENEX AF) 90 GM TOP SCH ×2 (08:54→22:15)
[2022-08-02] MEDS: THIAMINE INJECTION 100 MG, FOLIC ACID INJECTION 1 MG, MAGNESIUM SULFATE 2 GM, VITAMIN M... IV SCH ×5 (09:31)
[2022-08-02] MEDS ORDERED: GABAPENTIN 300 MG (NEURONTIN) CAP PO NR (10:00)
[2022-08-02] MEDS: MAGNESIUM 1 GM/100 ML IVPB 100 ML IV SCH ×2 (10:22→11:56)
--- NOTE | 2022-08-02 11:43 | Progress Note - Hospitalist ---
Subjective HPI/CC On Admission Date Seen by Provider: Aug 02, 2022 Time Seen by Provider: 09:30 CC: Diarrhea 71yo M with h/o AVN b/l hips presented to the ED last night with complaints of B/L hip pain following a fall 1 week ago. History is limited due to patient being poor historian. 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 Pt states that he has been having hip pain since the fall. During this time, pt states that he also started to experience diarrhea. Pt denies any blood in his stool and states that it resolved yesterday. Per ED note, pt had been stuck in his recliner for 6 days following this fall and presented to the ED covered in fecal matter and urine. Workup in the ED found an elevated WBC, low potassium, a positive troponin, elevated BNP and CRP, and a lactic acid of 2.74. Pt was also found to have a serum alcohol of 132. Pt had CT Chest/Thorax and CXR that were unremarkable, except for stable cardiomegaly and prominence of the pulmonary vascularity. XRAY of Pelvis/Hips was remarkable only for stable chronic findings. Pt also had multiple EKGs that showed an incomplete RBBB and possible old lateral myocardial infarct and inferior infarct. Pt had a positive C-diff Ag and C-diff amplication. Hemoccult was negative. Today, pt states that he is feeling much better. Pt denies having had any diarrhea since being admitted. Pt has been able to eat without any issues. Pt has no complaints at this time. Pt's troponin has improved from 0.046 to 0.030 today. Lactic acid has also improved from 2.74 to 1.84. Pt denies nausea, vomiting, SOA, and abd pain. Subjective/Events-last exam Patient reports feeling better except that he has been having bilateral hip spasms what he describes as sharp stabbing pain that just lasts a second or 2 causing him to wince but occurring frequently. He denies night sweats chills or fever he has had no further stools to suggest C. difficile colitis or other enteric infection. He is growing Enterococcus faecalis sensitivity pending but he reports no recent antibiotic use he may have had 1 other urinary tract infection many years ago.He denies night sweats chills or fever. Focused Exam Lactate Level 07/31/22 20:58: Lactic Acid Level 2.39*H 07/31/22 22:48: Lactic Acid Level 2.74*H 08/01/22 00:56: Lactic Acid Level 1.84 Time of Focused Exam: 22:45 Objective Exam Vital Signs Vital Signs Date Time Temp Pulse Resp B/P (MAP) Pulse Ox O2 Delivery O2 Flow Rate FiO2 08/02/22 08:54 160/77 (104) 08/02/22 08:16 36.1 76 18 96 Room Air Capillary Refill : Less Than 3 Seconds General Appearance: No Apparent Distress Respiratory: Chest Non Tender, Lungs Clear, Normal Breath Sounds, No Accessory Muscle Use, No Respiratory Distress Cardiovascular: Regular Rate, Rhythm, No Edema, No Gallop, No JVD, No Murmur, Normal Peripheral Pulses Gastrointestinal: Normal Bowel Sounds, No Organomegaly, No Pulsatile Mass, Non Tender, Soft Extremity: Other (See wound care evaluation) Results/Procedures Lab Laboratory Tests 08/02/22 05:38 Patient resulted labs reviewed. Assessment/Plan Assessment and Plan Assess & Plan/Chief Complaint 1. Full thickness non pressure ulcer left. iliac crest 2. Full thickness non pressure ulcer right flank/skin folds No evidence for secondary bacterial infection of the sites. 3. Cutaneous candidiasis 4. PEM 5. ETOH abuse/intoxication 6. Immobility 7. Diarrheal illness 8. Poor personal care 9. Enterococcal UTI without evidence for sepsis sensitivity pending Will initiate amoxicillin in the interim 500 mg p.o. 3 times daily. Discussed with the patient that if diarrhea begins we will need to repeat C. difficile and empirically treat as he does have increased risk. 10. No evidence for acute coronary syndrome mild bump in troponin secondary to type II MA from hypotension from dehydration resolved conservative medical management. 11. Elevated lactate on admission secondary to hypotension no evidence for seps is. JUANITO FREEMAN MD Aug 02, 2022 11:43
[2022-08-02] MEDS: AMOXICILLIN 500 MG (POLYMOX) CAP PO SCH ×2 (11:55→22:14)
[2022-08-02] MEDS ORDERED: amLODIPine 5 MG (NORVASC) TAB PO PRN (22:00)
[2022-08-02] MEDS ORDERED: FUROSEMIDE 20 MG (LASIX) TAB PO ONE (22:00)
[2022-08-02] MEDS: ACETAMINOPHEN 500 MG TAB (TYLENOL) PO PRN (22:13)
[2022-08-02] MEDS: GABAPENTIN 300 MG (NEURONTIN) CAP PO SCH (22:14)
[2022-08-03 00:35] VITALS: BP 141/94
[2022-08-03 04:37] VITALS: BP 181/91
[2022-08-03 07:59] VITALS: BP 160/85
[2022-08-03] MEDS: AMOXICILLIN 500 MG (POLYMOX) CAP PO SCH ×3 (08:11→20:51)
[2022-08-03] MEDS: MICONAZOLE 2% POWDER (DESENEX AF) 90 GM TOP SCH ×2 (08:11→20:52)
--- NOTE | 2022-08-03 10:07 | Progress Note - Hospitalist ---
Subjective HPI/CC On Admission Date Seen by Provider: Aug 03, 2022 Time Seen by Provider: 07:30 CC: Diarrhea 71yo M with h/o AVN b/l hips presented to the ED last night with complaints of B/L hip pain following a fall 1 week ago. History is limited due to patient being poor historian. 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 Pt states that he has been having hip pain since the fall. During this time, pt states that he also started to experience diarrhea. Pt denies any blood in his stool and states that it resolved yesterday. Per ED note, pt had been stuck in his recliner for 6 days following this fall and presented to the ED covered in fecal matter and urine. Workup in the ED found an elevated WBC, low potassium, a positive troponin, elevated BNP and CRP, and a lactic acid of 2.74. Pt was also found to have a serum alcohol of 132. Pt had CT Chest/Thorax and CXR that were unremarkable, except for stable cardiomegaly and prominence of the pulmonary vascularity. XRAY of Pelvis/Hips was remarkable only for stable chronic findings. Pt also had multiple EKGs that showed an incomplete RBBB and possible old lateral myocardial infarct and inferior infarct. Pt had a positive C-diff Ag and C-diff amplication. Hemoccult was negative. Today, pt states that he is feeling much better. Pt denies having had any diarrhea since being admitted. Pt has been able to eat without any issues. Pt has no complaints at this time. Pt's troponin has improved from 0.046 to 0.030 today. Lactic acid has also improved from 2.74 to 1.84. Pt denies nausea, vomiting, SOA, and abd pain. Subjective/Events-last exam Patient reports sharp stabbing bilateral hip pain moderating no dysuria denies night sweats chills or fever hoping to go home tomorrow. He reports no diarrhea or abdominal pain. Focused Exam Lactate Level 07/31/22 20:58: Lactic Acid Level 2.39*H 07/31/22 22:48: Lactic Acid Level 2.74*H 08/01/22 00:56: Lactic Acid Level 1.84 Time of Focused Exam: 22:45 Objective Exam Vital Signs Vital Signs Date Time Temp Pulse Resp B/P (MAP) Pulse Ox O2 Delivery O2 Flow Rate FiO2 08/03/22 07:59 36.0 70 20 160/85 (110) 97 Room Air 08/02/22 20:00 96.00 Capillary Refill : Less Than 3 Seconds General Appearance: No Apparent Distress, Chronically ill Respiratory: Chest Non Tender, Lungs Clear, Normal Breath Sounds, No Accessory Muscle Use, No Respiratory Distress Cardiovascular: Regular Rate, Rhythm, No Gallop Gastrointestinal: Normal Bowel Sounds, No Organomegaly, No Pulsatile Mass, Non Tender, Soft Results/Procedures Lab Patient resulted labs reviewed. Assessment/Plan Assessment and Plan Assess & Plan/Chief Complaint 1. Full thickness non pressure ulcer left. iliac crest 2. Full thickness non pressure ulcer right flank/skin folds No evidence for secondary bacterial infection of the sites. 3. Cutaneous candidiasis 4. PEM 5. ETOH abuse/intoxication no evidence for withdrawal 6. Immobility 7. Diarrheal illness Resolved 8. Poor personal care 9. Enterococcal UTI without evidence for sepsis sensitivity pending Will initiate amoxicillin in the interim 500 mg p.o. 3 times daily. Discussed with the patient that if diarrhea begins we will need to repeat C. difficile and empirically treat as he does have increased risk. 10. No evidence for acute coronary syndrome mild bump in troponin secondary to type II [place] from hypotension from dehydration resolved conservative medical management. 11. Elevated lactate on admission secondary to hypotension no evidence for sepsis. we will remove Fermin today consider discharge tomorrow. Sensitivity on Enterococcus faecalis as well as Streptococcus anginosus pending although urine looks clear and he has no symptoms in regards to urinary tract infection. He reports that he does have someone who will be able to stay with him 7 days a week to help out with care issues he will need ongoing home health with wound care. JUANITO FREEMAN MD Aug 03, 2022 10:07
[2022-08-03 11:22] VITALS: BP 147/86
[2022-08-03 15:51] VITALS: BP 152/84
[2022-08-03 20:08] VITALS: BP 135/73
[2022-08-03] MEDS: GABAPENTIN 300 MG (NEURONTIN) CAP PO SCH (20:51)
[2022-08-04 00:20] VITALS: BP 109/74
[2022-08-04 04:59] VITALS: BP 160/86
[2022-08-04 08:00] VITALS: BP 140/97
[2022-08-04] MEDS: ACETAMINOPHEN 500 MG TAB (TYLENOL) PO PRN (08:11)
[2022-08-04] MEDS: AMOXICILLIN 500 MG (POLYMOX) CAP PO SCH (08:11)
[2022-08-04 12:16] VITALS: BP 140/68
[2022-08-04] MEDS ORDERED: AMOX500C2 PO (12:19)
--- NOTE | 2022-08-04 12:20 | Discharge Summary ---
Discharge Summary Hospital Course Hospital Course Date of Admission: Jul 31, 2022 at 23:00 Admission Diagnosis : Diarrhea C. Diff infection Alcohol Abuse AVN b/l hips CAD DM Lactic Acidosis Elevated Troponin Family Physician/Provider: Uriel Cardona MD Date of Discharge: 08/04/22 Discharge Diagnosis: 1. Full thickness non pressure ulcer left. iliac crest 2. Full thickness non pressure ulcer right flank/skin folds No evidence for secondary bacterial infection of the sites. 3. Cutaneous candidiasis 4. PEM 5. ETOH abuse/intoxication no evidence for withdrawal 6. Immobility 7. Diarrheal illness/C diff- Resolved 8. Poor personal care 9. Enterococcal UTI without evidence for sepsis 10. Elevated troponin- type II [place] 11. Elevated lactate on admission secondary to hypotension no evidence for sepsis Hospital Course: Pt came in for diarrhea after he also had a fall at home around a week ago and continued to have right hip pain. His pelvic xray showed no acute findings. CTA of chest showed no PE. He was admitted and had initial testing for C diff indeterminate, follow up positive but had resolution of diarrhea without treatment. Urine grew enterococcus and strep anginosus with no resistance, discharged to complete course of amoxicillin. Pt refused any assistance including home health on discharge, SS did contact care team to check his home and they stated they would make APS report if needed. Troponin trended down without treatment and he had no evidence of acute SC. Wound care consulted and recommendations as in discharge instructions. Needs to follow up with wound care outpatient, per patient report planned to see wound care in [place]. Pt denied alcohol abuse and declined resources. No evidence of withdrawal inpatient. Labs and Pending Lab Test: Microbiology 07/31/22 Blood Culture - Preliminary, Resulted No growth 07/31/22 Urine Culture - Final, Complete Enterococcus faecalis Strep anginosus 07/31/22 C. difficile DNA Amplification - Final, Complete Home Meds Active Amoxicillin 500 Mg Capsule 500 Mg PO TID Reported Neurontin (Gabapentin) 300 Mg Capsule 600 Mg PO HS TAKES 2 (300MG) CAPS Proair Hfa (Albuterol Sulfate) 1 Puff Puff 2 Puff INH Q6H PRN Assessment/Pt DC Instructions Wound care: 1. Cleanse all open areas with Vashe. Apply silver alginate hydrofiber to wound bed and cover with bordered foam dressing. Change daily 2. Miconazole powder bid with interdry to skin folds and areas with candidal infection 3. Cleanse under skin folds thoroughly and daily with soap and water. Dry entirely before application of powder Follow up with primary doctor within a week of discharge. Discharge Diet: No Restrictions Activity as Tolerated: Yes Discharge Physical Examination Allergies: Coded Allergies: codeine (Verified Allergy, Mild, HIVES...TAKES OXYCODONE & MS CONTIN AT HOME, 03/11/19) streptokinase (Verified Allergy, Unknown, 03/11/19) General Appearance: No Apparent Distress Extremity: No Pedal Edema Neurologic/Psychiatric: Alert, Oriented x3, Normal Mood/Affect ARIS FRANCIS MD Aug 04, 2022 12:20
[2022-08-04] MEDS ORDERED: [UNRECOGNIZED DRUG - CODE] IR (13:51)
[2022-08-04] MEDS ORDERED: MICO90PO TOP (13:51)
[2022-08-04 14:30] VITALS: BP 140/68
== END 2022-08-04 14:20 | disposition home or self-care (01) | DRG 371 ==
LOC: EDUNIT# 20:00 → ER 20:02 → 4TH 23:00
PROVIDERS: ADMIT Internal Medicine; ATTEND Family Medicine
DX: A04.72 Enterocolitis due to Clostridium difficile, not specified as recurrent (principal); I21.A1 Myocardial infarction type 2; N39.0 Urinary tract infection, site not specified; E46 Unspecified protein-calorie malnutrition; E87.20 Acidosis, unspecified; M87.9 Osteonecrosis, unspecified; L98.499 Non-pressure chronic ulcer of skin of other sites with unspecified severity; F10.129 Alcohol abuse with intoxication, unspecified; Z20.822 Contact with and (suspected) exposure to COVID-19; I11.0 Hypertensive heart disease with heart failure; I50.9 Heart failure, unspecified; I48.91 Unspecified atrial fibrillation; B95.2 Enterococcus as the cause of diseases classified elsewhere; B37.2 Candidiasis of skin and nail; N31.9 Neuromuscular dysfunction of bladder, unspecified; E11.40 Type 2 diabetes mellitus with diabetic neuropathy, unspecified; M25.551 Pain in right hip; J44.9 Chronic obstructive pulmonary disease, unspecified; I95.9 Hypotension, unspecified; E86.0 Dehydration; I25.10 Atherosclerotic heart disease of native coronary artery without angina pectoris; F32.A Depression, unspecified; E83.42 Hypomagnesemia; Q24.9 Congenital malformation of heart, unspecified; I25.2 Old myocardial infarction; Z99.3 Dependence on wheelchair; Z68.28 Body mass index [BMI] 28.0-28.9, adult; Z89.622 Acquired absence of left hip joint; Z89.621 Acquired absence of right hip joint; Y90.6 Blood alcohol level of 120-199 mg/100 ml; Z87.891 Personal history of nicotine dependence; Z95.810 Presence of automatic (implantable) cardiac defibrillator; Z88.5 Allergy status to narcotic agent; Z88.8 Allergy status to other drugs, medicaments and biological substances; W19.XXXA Unspecified fall, initial encounter
CPT/HCPCS: 36415; 51702; 71045; 71275; 73523; 74177; 80053; 80306; 80320; 81000; 82150; 82274; 82550; 82553; 83605; 83690; 83735; 83874; 83880; 84145; 84484; 85025; 85610; 85652; 85730; 86141; 87015; 87040; 87045; 87046; 87077; 87088; 87186; 87324; 87449; 87493; 87636; 87899; 89055; 93005; 93041; 96361; 96365; 96367; 96375

== ENCOUNTER 2022-08-08 12:17 | Inpatient (IN) | payer MEDICARE, MEDICAID ==
[~2022-08-08] VITALS: Ht 172.2 cm; Wt 90.4 kg
[~2022-08-08 12:17] MED LIST changes: +AMOX500C2 PO; +GABA300C PO; +MICO90PO TOP; +[UNRECOGNIZED DRUG - CODE] IR
[2022-08-08] MEDS ORDERED: NS IV 500 ML 500 ML IV ONE (12:45)
[2022-08-08] MEDS ORDERED: LIDOCAINE UROJET 2% GEL 10 ML PKG ONE (12:53)
--- NOTE | 2022-08-08 12:55 | ED General ---
General Chief Complaint: General Problems/Pain Stated Complaint: ABD PAIN/ SOA Source of Information: Patient Exam Limitations: No Limitations History of Present Illness Date Seen by Provider: Aug 08, 2022 Time Seen by Provider: 12:30 Initial Comments Here by EMS with report of diarrhea, weakness, chest pain and incontinence of urine and stool. Patient was just discharged here on Thursday after problems with diarrhea and skin breakdown. Has bilateral hips removed because of multiple infections and is nonambulatory. Apparently he moves around with electronic wheelchair which is broken. He is supposed to have a healthcare aide assisting him but he has not had that assistance since returning home. He is covered in urine and stool from need to stop the pelvis. Patient also complained of chest pain to the EMS providers. He approves that with me. States he has chest pain that is left-sided and radiates to the left arm that is 7 out of 10 and aching and pressure that has persisted. He did receive aspirin 324 mg p.o. by EMS. Denies breathing problems or sweating. Denies fever chills. Denies nausea or vomiting. Has been eating okay. Apparently somebody has been bringing him food and he did have a cheeseburger and such yesterday. States that after the previous hospitalization his diarrhea had resolved until yesterday and since then he has been sitting in his chair in the stool and urine because he could not get out to go to the bathroom complains of pain to the skin area around the perineum, groin, upper legs and buttocks. Timing/Duration: 1-2 Days Severity: Moderate Associated Systoms: Chest Pain; No Cough, No Fever/Chills, No Nausea/Vomiting, No Shortness of Air; Weakness Allergies and Home Medications Allergies Coded Allergies: codeine (Verified Allergy, Mild, HIVES...TAKES OXYCODONE & MS CONTIN AT HOME, 03/11/19) streptokinase (Verified Allergy, Unknown, 03/11/19) Patient Home Medication List Home Medication List Reviewed: Yes Albuterol Sulfate (Proair Hfa) 1 Puff Puff, 2 PUFF INH Q6H PRN for SHORTNESS OF BREATH, (Reported) Entered as Reported by: KARINA RAPHAEL on 08/06/20 1606 Amoxicillin (Amoxicillin) 500 Mg Capsule, 500 MG PO TID Prescribed by: ARIS FRANCIS on 08/04/22 1219 Gabapentin (Neurontin) 300 Mg Capsule, 600 MG PO HS, (Reported) Entered as Reported by: KARINA RAPHAEL on 08/01/22 1517 Miconazole Nitrate (Lotrimin AF) 2 % Powder, 1 GM TOP BID Prescribed by: ARIS FRANCIS on 08/04/22 1351 Sodium Chlor/Hypochlorous Acid (Vashe Wound Solution) 0.033 % Irrig.soln, 1,000 ML IR DAILY Prescribed by: ARIS FRANCIS on 08/04/22 1351 Discontinued Medications Baclofen (Baclofen) 10 Mg Tablet, 10 MG PO TID PRN for MUSCLE SPASMS, (Reported) Discontinued Reason: No Longer Taking Entered as Reported by: KARINA RAPHAEL on 08/06/20 1606 Clonidine HCl (Clonidine HCl) 0.1 Mg Tablet, 0.1 MG PO BID PRN for BLOOD PRESSURE, (Reported) Discontinued Reason: No Longer Taking Entered as Reported by: KARINA RAPHAEL on 08/06/20 1606 Furosemide (Furosemide) 40 Mg Tablet, 40 MG PO DAILY PRN for SWELLING, (Reported) Discontinued Reason: No Longer Taking Entered as Reported by: MONIQUE CASTILLO on 06/22/18 2159 Levofloxacin (Levofloxacin) 500 Mg Tablet, 500 MG PO DAILY Discontinued Reason: No Longer Taking Prescribed by: LOWELL STEVENS on 09/29/20 1810 Morphine Sulfate (Morphine Sulfate ER) 200 Mg Tablet.er, 200 MG PO BID, (Reported) Discontinued Reason: No Longer Taking Entered as Reported by: KARINA RAPHAEL on 08/06/20 1606 Morphine Sulfate (Morphine Sulfate ER) 200 Mg Tablet.er, 200 MG PO BID Discontinued Reason: No Longer Taking Prescribed by: LOWELL STEVENS on 09/29/20 1827 Naloxegol Oxalate (Movantik) 25 Mg Tablet, 25 MG PO DAILY, (Reported) Discontinued Reason: No Longer Taking Entered as Reported by: KARINA RAPHAEL on 08/06/20 1606 Oxycodone HCl (Oxycodone HCl) 15 Mg Tablet, 15 MG PO 1200, (Reported) Discontinued Reason: No Longer Taking Entered as Reported by: KARINA RAPHAEL on 08/06/20 1606 Zolpidem Tartrate (Ambien) 10 Mg Tablet, 10 MG PO HS PRN for SLEEP, (Reported) Discontinued Reason: No Longer Taking Entered as Reported by: KARINA RAPHAEL on 08/06/20 1606 Review of Systems Review of Systems Constitutional: see HPI; No chills, No fever EENTM: No nose congestion, No throat pain Respiratory: No cough, No short of breath Cardiovascular: chest pain; No edema Gastrointestinal: abdominal pain, diarrhea; No vomiting Genitourinary: incontinence; No pain Musculoskeletal: No back pain, No joint pain Skin: change in color, lesions, rash Psychiatric/Neurological: No Symptoms Reported All Other Systems Reviewed Negative Unless Noted: Yes Past [id number]-Xslapy Hx Patient Social History Tobacco Use?: Yes Tobacco type used: Cigarettes Substance use?: No Alcohol Use?: Yes Alcohol Frequency: Rarely Immunizations Up To Date Tetanus Booster (TDap): Less than 5yrs PED Vaccines UTD: No Seasonal Allergies Seasonal Allergies: No Past Medical History Surgeries: Yes (BILAT HIP REPLACEMENTS X 22; WOUND DEBRIDEMENTS) Abdominal, Appendectomy, Cardiac, Defibrillator, Joint Replacement, Orthopedic, Pacemaker Respiratory: Yes Asthma, COPD Currently Using CPAP: No Currently Using BIPAP: No Cardiac: Yes (PACEMAKER, CARDIAC ARREST, SELF - REPORTED PA X 8; CHF) Atrial Fibrillation, Chronic Edema/Swelling, Coronary Artery Disease, Congenital Heart Disease, Heart Attack, Hypertension, Irregular Heartbeat Neurological: Yes Neuropathy Reproductive Disorders: No Sexually Transmitted Disease: No HIV/AIDS: No Genitourinary: Yes Neurogenic Bladder Gastrointestinal: Yes Abdominal Hernia, Chronic Constipation Musculoskeletal: Yes Arthritis, Chronic Back Pain, Fractures Endocrine: Yes Diabetes, Insulin dep HEENT: Yes Dysphagia Loss of Vision: Denies Hearing Impairment: Hard of Hearing Cancer: No Psychosocial: Yes Suicide Attempts, Depression Integumentary: Yes (recurrent wound issues) Recent Skin Changes Blood Disorders: No Adverse Reaction/Blood Tranf: Yes (HIGH FEVER AND CHILLS) Family Medical History Reviewed Nursing Family Hx COPD Diabetes mellitus Adopted, unknown FH Physical Exam Vital Signs Vital Signs - First Documented 08/08/22 12:20 Temp 37.0 Pulse 103 Resp 18 B/P (MAP) 175/102 (126) Pulse Ox 97 O2 Delivery Room Air Capillary Refill : Height, Weight, BMI Height: 5'8.00" Weight: 170lbs. 8.0oz. 77.050726kc; 28.29 BMI Method:Stated General Appearance: No Apparent Distress, WD/WN HEENT: PERRL/EOMI, Pharynx Normal Neck: Non Tender, Supple Respiratory: Lungs Clear, Normal Breath Sounds Cardiovascular: Regular Rate, Rhythm, No Murmur Gastrointestinal: Normal Bowel Sounds, Non Tender, Soft Back: Normal Inspection, No CVA Tenderness, No Vertebral Tenderness Extremity: Other (No joint bilateral hips postsurgical. Moves upper extremities without difficulty. Able to move feet bilateral. Surgical wounds to bilateral hips are healed.) Neurologic/Psychiatric: Alert, Oriented x3 Skin: Warm/Dry, Other (Patient has significant skin breakdown in the area of groin, perineum, middle buttocks bilateral and upper legs where there is maceration and superficial ulceration with red and tender skin throughout this region were skin was covered in wet stool. All stool cleaned off from knees to and same dimensions anterior by nursing and myself. Wound was dried and patient placed on dry clean sheets.) Focused Exam Lactate Level 08/08/22 13:12: Lactic Acid Level 0.81 Lactic Acid Level Laboratory Tests Test 08/08/22 13:12 Lactic Acid Level 0.81 MMOL/L (0.50-2.00) Progress/Results/Core Measures Suspected Sepsis SIRS Temperature: Pulse: Respiratory Rate: Laboratory Tests 08/08/22 13:05: White Blood Count 13.3H Blood Pressure / Mean: 08/08/22 13:12: Lactic Acid Level 0.81 Laboratory Tests 08/08/22 13:05: Creatinine 0.77, Platelet Count 373, Total Bilirubin 0.5 08/08/22 13:47: INR Comment 1.0 Results/Orders Lab Results Laboratory Tests Test 08/08/22 13:05 08/08/22 13:12 08/08/22 13:47 Range/Units White Blood Count 13.3 H 4.3-11.0 10^3/uL Red Blood Count 4.22 L 4.30-5.52 10^6/uL Hemoglobin 13.7 13.3-17.7 g/dL Hematocrit 42 40-54 % Mean Corpuscular Volume 99 80-99 fL Mean Corpuscular Hemoglobin 33 25-34 pg Mean Corpuscular Hemoglobin Concent 33 32-36 g/dL Red Cell Distribution Width 13.0 10.0-14.5 % Platelet Count 373 130-400 10^3/uL Mean Platelet Volume 10.0 9.0-12.2 fL Immature Granulocyte % (Auto) 1 % Neutrophils (%) (Auto) 72 42-75 % Lymphocytes (%) (Auto) 15 12-44 % Monocytes (%) (Auto) 9 0-12 % Eosinophils (%) (Auto) 3 0-10 % Basophils (%) (Auto) 1 0-10 % Neutrophils # (Auto) 9.6 H 1.8-7.8 10^3/uL Lymphocytes # (Auto) 2.0 1.0-4.0 10^3/uL Monocytes # (Auto) 1.2 H 0.0-1.0 10^3/uL Eosinophils # (Auto) 0.4 H 0.0-0.3 10^3/uL Basophils # (Auto) 0.1 0.0-0.1 10^3/uL Immature Granulocyte # (Auto) 0.1 0.0-0.1 10^3/uL Percent Immature Platelet Fraction 2.8 0.0-7.6 % Urine Color YELLOW Urine Clarity CLEAR Urine pH 7.0 5-9 Urine Specific Jackson 1.010 L 1.016-1.022 Urine Protein NEGATIVE NEGATIVE Urine Glucose (UA) NEGATIVE NEGATIVE Urine Ketones NEGATIVE NEGATIVE Urine Nitrite NEGATIVE NEGATIVE Urine Bilirubin NEGATIVE NEGATIVE Urine Urobilinogen 0.2 < = 1.0 MG/DL Urine Leukocyte Esterase NEGATIVE NEGATIVE Urine RBC (Auto) NEGATIVE NEGATIVE Urine RBC NONE /HPF Urine WBC NONE /HPF Urine Squamous Epithelial Cells RARE /HPF Urine Crystals NONE /LPF Urine Bacteria NEGATIVE /HPF Urine Casts NONE /LPF Urine Mucus NEGATIVE /LPF Urine Culture Indicated CULTURE PENDING Sodium Level 138 135-145 MMOL/L Potassium Level 4.6 3.6-5.0 MMOL/L Chloride Level 104 98-107 MMOL/L Carbon Dioxide Level 24 21-32 MMOL/L Anion Gap 10 5-14 MMOL/L Blood Urea Nitrogen 15 7-18 MG/DL Creatinine 0.77 0.60-1.30 MG/DL Estimat Glomerular Filtration Rate 97 BUN/Creatinine Ratio 19 Glucose Level 104 70-105 MG/DL Calcium Level 8.9 8.5-10.1 MG/DL Corrected Calcium 9.5 8.5-10.1 MG/DL Total Bilirubin 0.5 0.1-1.0 MG/DL Aspartate Amino Transf (AST/SGOT) 22 5-34 U/L Alanine Aminotransferase (ALT/SGPT) 12 0-55 U/L Alkaline Phosphatase 118 40-136 U/L Troponin I < 0.028 <0.028 NG/ML C-Reactive Protein High Sensitivity 1.77 H 0.00-0.50 MG/DL Total Protein 6.9 6.4-8.2 GM/DL Albumin 3.2 3.2-4.5 GM/DL Lactic Acid Level 0.81 0.50-2.00 MMOL/L Prothrombin Time 13.4 12.2-14.7 SEC INR Comment 1.0 0.8-1.4 Activated Partial Thromboplast Time 26 24-35 SEC Magnesium Level 1.7 1.6-2.4 MG/DL Myoglobin 41.5 10.0-92.0 NG/ML My Orders Orders - CARROLL ORTIZ MD Cbc With Automated Diff (08/08/22 12:42) Comprehensive Metabolic Panel (08/08/22 12:42) Blood Culture (08/08/22 12:42) Sputum Culture (08/08/22 12:42) Urinalysis (08/08/22 12:42) Urine Culture (08/08/22 12:42) Protime With Inr (08/08/22 12:42) Partial Thromboplastin Time (08/08/22 12:42) Chest 1 View, Ap/Pa Only (08/08/22 12:42) Ed Iv/Invasive Line Start (08/08/22 12:42) Vital Signs Adult Sepsis Patie Q15M (08/08/22 12:42) O2 (08/08/22 12:42) Remove Rings In Anticipation O (08/08/22 12:42) Lactic Acid Analyzer (08/08/22 12:42) Ns Iv 500 Ml (Sodium Chloride 0.9%) (08/08/22 12:45) Ekg Tracing (08/08/22 12:48) Troponin I [place] (08/08/22 12:48) Lidocaine 2% (Urojet) (Xylocaine Urojet) (08/08/22 12:53) Magnesium (08/08/22 12:59) Myoglobin Serum (08/08/22 12:59) Monitor-Rhythm Ecg Trace Only (08/08/22 12:59) Lipid Panel (08/09/22 06:00) Ed Iv/Invasive Line Start (08/08/22 12:59) Nitroglycerin 0.4 Mg Btl 25's (Nitrostat (08/08/22 13:00) Catheter(Urinary) Insert & Ass 03,15 (08/08/22 13:13) Lidocaine 2% (Urojet) (Xylocaine Urojet) (08/08/22 13:15) Hs C Reactive Protein (08/08/22 13:30) Cefepime Injection (Maxipime Injection) (08/08/22 15:30) Ed Admission (Communication) (08/08/22 15:20) Medications Given in ED Current Medications Medications Dose Ordered Sig/Carl Route Start Time Stop Time Status Last Admin Dose Admin Lidocaine HCl 10 ml ONCE ONCE TOP 08/08/22 13:15 08/08/22 13:16 DC 08/08/22 13:00 10 ML Sodium Chloride 500 ml @ 0 mls/hr Q0M ONCE IV 08/08/22 12:45 08/08/22 12:46 DC 08/08/22 13:27 500 MLS/HR Vital Signs/I&O 08/08/22 12:20 Temp 37.0 Pulse 103 Resp 18 B/P (MAP) 175/102 (126) Pulse Ox 97 O2 Delivery Room Air Capillary Refill : Progress Note : Progress Note Seen and evaluated. Patient midsection significantly covered in stool and fluid. This was all cleaned patient placed on dry sheets and Chux pads. Significant maceration and superficial wound extension around the periarea and buttocks that extends into the groin. Apparently he has the same on previous visit healed well after patient's diarrhea was controlled he was able to keep dry. We will give sepsis protocol due to the significance of skin irritation and covered with stool and add EKG and troponin for chest pain protocol. Normal saline 500 mL bolus ordered. Patient has already received aspirin. Given his blood pressure is quite elevated currently we will go ahead and try nitro for the chest pain. I have asked for midline or PICC line to provide access as patient has very difficult IV access. Monitor patient. 1514: We do have midline access for IV now for blood draw and fluid administration. We will call for admission. Labs reviewed. Monitor patient. 1520: I did discuss the case with Dr. Snaz and she accepts patient for admission, inpatient status. We will initiate treatment for pneumonia as chest x-ray does show questionable infiltrate and he does have mild elevation of white count and mild elevation of CRP. Patient agrees to admission. Admit, inpatient status. Dr. Yvon zambrano orders. ECG Initial ECG Impression Date: Aug 08, 2022 Initial ECG Impression Time: 13:19 Initial ECG Rate: 107 Initial ECG Rhythm: S.Tach Comment Sinus tachycardia with PACs. Normal axis. No evidence of ST elevation PA. Similar to previous of 07/31/2022. Interpreted by me. Diagnostic Imaging Diagonstic Imaging: Xray Plain Films/CT/US/NM/MRI: chest Comments [facility] [place] NAME: NI ESPINOZA [facility] REC#: [id number] PT STATUS: REG ER : 1950 PHYSICIAN: CARROLL ORTIZ MD ADMIT DATE: 08/08/22/ER Draft Date of Exam:08/08/22 CHEST 1 VIEW, AP/PA ONLY INDICATION: Weakness. TECHNIQUE: Single view chest, 1:17 p.m. CORRELATION STUDY: 07/31/2022. FINDINGS: Left-sided dual-chamber pacemaker. Heart size and mediastinum are stable with tortuous course of the thoracic aorta. Fullness of the bilateral betsy, right greater than left, persisting. Question minimal infiltrate in the lateral right mid lung. IMPRESSION: 1. Question early infiltrate in the lateral right mid lung. 2. Prominent bilateral betsy. In correlation with recent CT, there was no significant mass reported. Dictated on workstation # [id number] Dict: 08/08/22 1327 Trans: 08/08/22 1332 [id number] Interpreted by: SAMIR CASAREZ DO Electronically signed by: Departure Communication (Admissions) Time/Spoke to Admitting Phy: 15:20 Impression Primary Impression: Soft tissue infection Additional Impressions: Diarrhea Qualified Codes: R19.7 - Diarrhea, unspecified Pneumonia Qualified Codes: J18.9 - Pneumonia, unspecified organism Disposition: ADMITTED INPATIENT Condition: Stable Admissions Decision to Admit Reason: Admit from ER (General) Decision to Admit/Date: Aug 08, 2022 Time/Decision to Admit Time: 15:20 Departure-Patient Inst. Referrals: OLEGARIO ROSENTHAL MD (PCP/Family) Primary Care Physician CARROLL ORTIZ MD Aug 08, 2022 12:55
[2022-08-08] MEDS ORDERED: NITROGLYCERIN 0.4 MG SL TABS BTL 25'S SL PRN (13:00)
[2022-08-08] MEDS ORDERED: LIDOCAINE UROJET 2% GEL 10 ML PKG TOP ONE ×2 (13:15→16:30)
[2022-08-08 13:16] LABS: BASOPHILS # (AUTO) 0.1 10^3/uL (0.0-0.1); BASOPHILS % (AUTO) 1 % (0-10); EOSINOPHILS # (AUTO) 0.4 10^3/uL (0.0-0.3); EOSINOPHILS % (AUTO) 3 % (0-10); HEMATOCRIT 42 % (40-54); HEMOGLOBIN 13.7 g/dL (13.3-17.7); LYMPHOCYTES % (AUTO) 15 % (12-44); MEAN CORPUSCULAR HEMOGLOBIN 33 pg (25-34); MEAN CORPUSCULAR HGB CONC 33 g/dL (32-36); MEAN CORPUSCULAR VOLUME 99 fL (80-99); MONOCYTES # (AUTO) 1.2 10^3/uL (0.0-1.0); MONOCYTES % (AUTO) 9 % (0-12); NEUTROPHILS # (AUTO) 9.6 10^3/uL (1.8-7.8); NEUTROPHILS % (AUTO) 72 % (42-75); PLATELET COUNT 373 10^3/uL (130-400); WHITE BLOOD COUNT 13.3 10^3/uL (4.3-11.0)
[2022-08-08 13:29] LABS: ALBUMIN 3.2 GM/DL (3.2-4.5); CHLORIDE 104 MMOL/L (98-107); POTASSIUM 4.6 MMOL/L (3.6-5.0); SODIUM 138 MMOL/L (135-145)
[2022-08-08 13:30] LABS: CALCIUM 8.9 MG/DL (8.5-10.1)
[2022-08-08 13:31] LABS: GLUCOSE 104 MG/DL (70-105); TOTAL PROTEIN 6.9 GM/DL (6.4-8.2)
[2022-08-08 13:32] LABS: BILIRUBIN,URINE NEGATIVE (NEGATIVE); CLARITY,URINE CLEAR; COLOR,URINE YELLOW; GLUCOSE, URINE (UA) NEGATIVE (NEGATIVE); KETONES,URINE NEGATIVE (NEGATIVE); LEUKOCYTE ESTERASE ,URINE NEGATIVE (NEGATIVE); NITRITE,URINE NEGATIVE (NEGATIVE); PROTEIN,URINE NEGATIVE (NEGATIVE)
[2022-08-08 13:33] LABS: BILIRUBIN,TOTAL 0.5 MG/DL (0.1-1.0); CARBON DIOXIDE 24 MMOL/L (21-32)
--- NOTE | 2022-08-08 13:33 | Diagnostic Imaging Report ---
INDICATION: Weakness. TECHNIQUE: Single view chest, 1:17 p.m. CORRELATION STUDY: 07/31/2022. FINDINGS: Left-sided dual-chamber pacemaker. Heart size and mediastinum are stable with tortuous course of the thoracic aorta. Fullness of the bilateral betsy, right greater than left, persisting. Question minimal infiltrate in the lateral right mid lung. IMPRESSION: 1. Question early infiltrate in the lateral right mid lung. 2. Prominent bilateral betsy. In correlation with recent CT, there was no significant mass reported. Dictated by: Dictated on workstation # [id number]
[2022-08-08 13:35] LABS: ALKALINE PHOSPHATASE 118 U/L (40-136); CREATININE SERUM 0.77 MG/DL (0.60-1.30); GFR ESTIMATED 97
[2022-08-08 13:36] LABS: BUN/CREATININE RATIO 19
[2022-08-08 13:38] LABS: ALANINE AMINOTRANSFERASE 12 U/L (0-55)
[2022-08-08 13:39] LABS: BACTERIA,URINE NEGATIVE /HPF; SQUAMOUS EPITHELIAL CELL,UR RARE /HPF
[2022-08-08 14:08] LABS: MAGNESIUM 1.7 MG/DL (1.6-2.4); PROTHROMBIN TIME PATIENT 13.4 SEC (12.2-14.7)
[2022-08-08] MEDS ORDERED: CEFEPIME INJECTION 1,000 MG in NS (IVPB) 50 ML IV ONE (15:30)
[2022-08-08] MEDS ORDERED: polyethylene glycoL POWDER 17 GM (MIRALAX) PACK PO PRN (16:30)
[2022-08-08] MEDS ORDERED: ONDANSETRON 4 MG (ZOFRAN) ORAL DISSOLVE TAB PO PRN (16:30)
[2022-08-08] MEDS ORDERED: HYDROmorphone 2 MG/ML VIAL (DILAUDID) IV PRN (16:30)
[2022-08-08] MEDS ORDERED: diphenhydrAMINE 25 MG TAB (BENADRYL) PO PRN (16:30)
[2022-08-08] MEDS ORDERED: ACETAMINOPHEN 325 MG TABLET PO PRN (16:30)
[2022-08-08] MEDS ORDERED: BISACODYL 10 MG SUPP (DULCOLAX) PR PRN (16:30)
[2022-08-08] MEDS ORDERED: CALCIUM CARBONATE 500 MG (TUMS) TAB.CHEW PO PRN (16:30)
[2022-08-08] MEDS ORDERED: cloNIDine 0.1 MG (CATAPRES) TAB PO PRN (16:30)
[2022-08-08] MEDS ORDERED: MILK OF MAGNESIA 400 MG/5 ML 30 ML UDC PO PRN (16:30)
[2022-08-08] MEDS ORDERED: diphenhydrAMINE 50 MG/ML INJ (BENADRYL) IVP PRN (16:30)
[2022-08-08] MEDS ORDERED: ONDANSETRON 4 MG/2 ML (SDV) Z0FRAN IV PRN (16:30)
[2022-08-08] MEDS ORDERED: LACTULOSE SYRUP 10GM/15ML (ENULOSE) 30ML UDC PO PRN (16:30)
[2022-08-08] MEDS ORDERED: ANTACID SUSP 30 ML UDC (MYLANTA) PO PRN (16:30)
[2022-08-08] MEDS ORDERED: RT-ALBUTEROL/IPRATROPIUM 3 ML (DUONEB) VIAL INH PRN (17:15)
[2022-08-08] MEDS: NS IV 1000 ML 1,000 ML IV SCH (17:26)
[2022-08-08] MEDS: ENOXAPARIN 40 MG/0.4 ML (LOVENOX) SYR SC SCH (17:26)
[2022-08-08] MEDS ORDERED: FLU QUADRIvalent (6 months+) 60 mcg/0.5 ml 2022-23 (Fluzone) IM ONE (18:15)
[2022-08-08 19:30] VITALS: BP 160/81
[2022-08-08] MEDS: SENNOSIDES 8.6 MG (SENOKOT) TAB PO SCH (20:25)
[2022-08-08] MEDS: DOCUSATE SODIUM 100 MG (COLACE) CAP PO SCH (20:25)
[2022-08-08] MEDS: MENTHOL/ZINC OXIDE (CALMOSEPTINE) 113 GM TUBE TOP SCH (20:26)
[2022-08-08] MEDS: MELATONIN 3 MG TABLET PO PRN (20:26)
[2022-08-08] MEDS ORDERED: CEFEPIME INJECTION 2,000 MG in NS (IVPB) 50 ML IV SCH (21:00)
[2022-08-08] MEDS: CEFEPIME 1,000 MG/NS 50 ML IVPB IV SCH ×2 (21:37)
[2022-08-08] MEDS: RT-ALBUTEROL/IPRATROPIUM 3 ML (DUONEB) VIAL INH SCH (21:53)
[2022-08-08 23:55] VITALS: BP 112/64
[2022-08-09] MEDS: RT-ALBUTEROL/IPRATROPIUM 3 ML (DUONEB) VIAL INH SCH ×4 (02:42→21:35)
[2022-08-09] MEDS: CEFEPIME 1,000 MG/NS 50 ML IVPB IV SCH ×8 (03:12→22:14)
[2022-08-09 03:52] VITALS: BP 113/56
[2022-08-09] MEDS: NS IV 1000 ML 1,000 ML IV SCH ×2 (06:05→08:52)
[2022-08-09 06:44] LABS: BASOPHILS # (AUTO) 0.1 10^3/uL (0.0-0.1); BASOPHILS % (AUTO) 1 % (0-10); EOSINOPHILS # (AUTO) 0.5 10^3/uL (0.0-0.3); EOSINOPHILS % (AUTO) 6 % (0-10); HEMATOCRIT 35 % (40-54); HEMOGLOBIN 11.3 g/dL (13.3-17.7); LYMPHOCYTES # (AUTO) 2.1 10^3/uL (1.0-4.0); LYMPHOCYTES % (AUTO) 24 % (12-44); MEAN CORPUSCULAR HEMOGLOBIN 33 pg (25-34); MEAN CORPUSCULAR HGB CONC 33 g/dL (32-36); MEAN CORPUSCULAR VOLUME 101 fL (80-99); MEAN PLATELET VOLUME 10.1 fL (9.0-12.2); MONOCYTES # (AUTO) 0.9 10^3/uL (0.0-1.0); MONOCYTES % (AUTO) 10 % (0-12); NEUTROPHILS # (AUTO) 5.1 10^3/uL (1.8-7.8); NEUTROPHILS % (AUTO) 58 % (42-75); PLATELET COUNT 297 10^3/uL (130-400); WHITE BLOOD COUNT 8.8 10^3/uL (4.3-11.0)
[2022-08-09 07:08] VITALS: BP 148/79
[2022-08-09 07:15] LABS: ALBUMIN 2.6 GM/DL (3.2-4.5); BILIRUBIN,TOTAL 0.6 MG/DL (0.1-1.0); CALCIUM 8.1 MG/DL (8.5-10.1); CREATININE SERUM 0.74 MG/DL (0.60-1.30); POTASSIUM 3.8 MMOL/L (3.6-5.0); TOTAL PROTEIN 5.5 GM/DL (6.4-8.2)
[2022-08-09] MEDS: DOCUSATE SODIUM 100 MG (COLACE) CAP PO SCH ×2 (08:52→20:07)
[2022-08-09] MEDS: SENNOSIDES 8.6 MG (SENOKOT) TAB PO SCH ×2 (08:52→20:07)
[2022-08-09] MEDS: MENTHOL/ZINC OXIDE (CALMOSEPTINE) 113 GM TUBE TOP SCH ×2 (08:53→20:08)
--- NOTE | 2022-08-09 09:08 | History & Physical-Hospitalist ---
History of Present Illness HPI/Chief Complaint CC: Debility with early PNA and skin breakdown HPI: This is a 71yoWM known to this examiner due to frequent hospital stays due to chronic debility and complicated issues due to wheelchair bound status from bilateral hip dysfunction. He presented to the ER following hypoxia and weakness and unable to move out of his wheelchair and remaining in excrement and urine and suffering from skin breakdown and incidentally he was found to have an early PNA. Patient is improved today and Calmoseptine is very effective in healing the stage 1 pressure and exposure skin irritation. Source: patient, RN/MD, old records Exam Limitations: no limitations Date Seen 08/09/22 Time Seen by a Provider: 09:00 Attending Physician Uriel Cardona MD PCP Admitting Physician: Kirsten Sanz DO Attending Physician: Kirsten Sanz DO Referring Physician Date of Admission Aug 08, 2022 at 15:21 Home Medications & Allergies Home Medications Reviewed patient Home Medication Reconciliation performed by pharmacy medication reconciliations processing technician and/or nursing. Patients Allergies have been reviewed. Allergies Allergies Coded Allergies codeine (Verified Allergy, Mild, HIVES...TAKES OXYCODONE & MS CONTIN AT HOME, 03/11/19) streptokinase (Verified Allergy, Unknown, 03/11/19) Past Pqhzcrb-Klserf-Yedrnt Hx Patient Social History Marrital Status: single Employed/Student: unemployed Tobacco Use?: Yes Tobacco type used: Cigarettes Smoking Status: Current Everyday Smoker Substance use?: No Alcohol Use?: Yes Alcohol Frequency: Rarely Immunizations Up To Date Date of Influenza Vaccine: Jul 25, 2019 Tetanus Booster (TDap): More Than 5 Years Hepatitis A: No Hepatitis B: No PED Vaccines UTD: No Date of Pneumonia Vaccine: Jul 03, 2018 Seasonal Allergies Seasonal Allergies: No Current Status Advance Directives: No Communicates: Verbally Primary Language: Syriac Preferred Spoken Language: Syriac Is interpretation needed?: No Implanted or Applied Medical D: Orthopedic hardware, Pacemaker Past Medical History Surgeries: Abdominal, Appendectomy, Cardiac, Defibrillator, Joint Replacement, Orthopedic, Pacemaker Asthma, COPD Currently Using CPAP: No Currently Using BIPAP: No Atrial Fibrillation, Chronic Edema/Swelling, Coronary Artery Disease, Congenital Heart Disease, Heart Attack, Hypertension, Irregular Heartbeat Neuropathy Sexually Transmitted Disease: No HIV/AIDS: No Neurogenic Bladder Abdominal Hernia, Chronic Constipation Arthritis, Chronic Back Pain, Fractures Diabetes, Insulin dep Dysphagia Loss of Vision: Denies Hearing Impairment: Hard of Hearing Suicide Attempts, Depression Recent Skin Changes Blood Disorders: No Adverse Reaction/Blood Tranf: Yes (HIGH FEVER AND CHILLS) PMHx: avascular necrosis of multiple joints Asthma Chronic nonhealing hip wounds SurgHx: 11 bilateral hip surgeries, removal of hardware is nonambulatory 3 back surgeries Neck surgery Bilateral carpal tunnel release Bilateral cubital tunnel release Family Medical History Reviewed Nursing Family Hx COPD Diabetes mellitus Adopted, unknown FH Review of Systems Constitutional: see HPI, malaise, weakness EENTM: no symptoms reported Respiratory: cough Cardiovascular: no symptoms reported Gastrointestinal: diarrhea, nausea Genitourinary: no symptoms reported Musculoskeletal: back pain, muscle pain, muscle stiffness, muscle cramps Skin: no symptoms reported Psychiatric/Neurological: Anxiety, Depressed All Other Systems Reviewed Negative Unless Noted: Yes Physical Exam Physical Exam Vital Signs Vital Signs - First Documented 08/08/22 08/09/22 12:20 10:02 Temp 37.0 Pulse 103 Resp 18 B/P (MAP) 175/102 (126) Pulse Ox 97 O2 Delivery Room Air O2 Flow Rate 0.00 Capillary Refill : Less Than 3 Seconds Height, Weight, BMI Height: 5'8.00" Weight: 170lbs. 8.0oz. [id number]; 30.41 BMI Method:Stated General Appearance: No Apparent Distress, Chronically ill Eyes: Right Eye Normal Inspection, Right Eye PERRL HEENT: PERRL/EOMI, Normal ENT Inspection, Pharynx Normal, Moist Mucous Membranes Neck: Full Range of Motion, Normal Inspection, Non Tender Respiratory: Chest Non Tender, Lungs Clear, Normal Breath Sounds, No Accessory Muscle Use, No Respiratory Distress Cardiovascular: Regular Rate, Rhythm, No Edema, No Gallop, No JVD, No Murmur, Normal Peripheral Pulses Gastrointestinal: Normal Bowel Sounds, No Organomegaly, No Pulsatile Mass, Non Tender, Soft Back: Normal Inspection, No CVA Tenderness, No Vertebral Tenderness Extremity: Normal Capillary Refill, Normal Inspection, Normal Range of Motion (except legs due to hip joint absence), Non Tender, No Calf Tenderness, No Pedal Edema Neurologic/Psychiatric: Alert, Oriented x3, No Motor/Sensory Deficits, Normal Mood/Affect Skin: Normal Color, Warm/Dry Lymphatic: No Adenopathy Results Results/Procedures Labs Laboratory Tests 08/08/22 13:05 08/09/22 06:39 Patient resulted labs reviewed. Assessment/Plan Admission Diagnosis Assessment: Hypoxia Weakness Early PNA Skin breakdown from sitting in urine and diarrhea Poor social situation Hip joints absence Plan: PNA treatment HLIVF Monitor closely Admission Status: Inpatient Order (span 2 midnights) Reason for Inpatient Admission: PNA KIRSTEN SANZ DO Aug 09, 2022 09:08
--- NOTE | 2022-08-09 10:44 | Physical Therapy Evaluation ---
PT Evaluation-General Medical Diagnosis Admission Date Aug 08, 2022 at 15:21 Medical Diagnosis: pneumonia Onset Date: Aug 08, 2022 Therapy Diagnosis Therapy Diagnosis: debility Height/Weight Height (Feet): 5 Height (Inches): 8.00 Weight (Pounds): 170 Weight (Ounces): 8.0 Precautions Precautions/Isolations: Fall Prevention, Standard Precautions Weight Bear Status Right Lower Extremity: Right Non Weight Bearing Left Lower Extremity: Left Non Weight Bearing Referral Physician: Dr. Sanz Reason for Referral: Evaluation/Treatment Medical History Pertinent Medical History: Arthritis, CAD, COPD, DM, HTN Additional Medical History pacemaker, tobacco use, neurogenic bladder Current History Arrived via EMS with diarrhea, weakness, chest pain. Reviewed History: Yes Social History Home: Single Level Current Living Status: Alone Entry Into Home: Ramp Prior Prior Level of Function SCALE: Activities may be completed with or without assistive devices. 7-Jsrjvrknyk-fjjckng completes the activity by him/herself with no assistance from a helper. 5-Set-up or Clean-up Assistance-helper sets up or cleans up; patient completes activity. Amelia assists only prior to or following the activity. 4-Supervision or Touching Assistance-helper provides verbal cues and/or touching/steadying and/or contact guard assistance as patient completes activity. Assistance may be provided throughout the activity or intermittently. 3-Partial/Moderate Assistance-helper does LESS THAN HALF the effort. Amelia lifts, holds or supports trunk or limbs, but provides less than half the effort. 2-Substantial/Maximal Assistance-helper does MORE THAN HALF the effort. Amelia lifts or holds trunk or limbs and provides more than half the effort. 0-Oibpnyrqh-gixmjs does ALL the effort. Patient does none of the effort to complete the activity. Or, the assistance of 2 or more helpers is required for the patient to complete the activity. If activity was not attempted, code reason: 7-Patient Refused. 9-Not Applicable-not attempted and the patient did not perform the activity before the current illness, exacerbation or injury. 10-Not Attempted due to Environmental Limitations-(lack of equipment, weather restraints, etc.). 88-Not Attempted due to Medical Conditions or Safety Concerns. Bed Mobility: 6 Transfers (B,C,W/C): 6 Gait: 9 Stairs: 9 Wheelchair Mobility: 6 Indoor Mobility (Ambulation): Independent Prior Devices Use: Motorized wheelchair pt. states he completes SPT chair to/from w/c PT Evaluation-Current Subjective Pt. states he doesn't want to try standing but agrees to sit at edge of bed. States his R hip is really hurting. Pain Numeric Pain Scale: 8 Location: Right Location Body Site: Hip Objective Patient Orientation: Person, Place, Time, Situation Attachments: SCD's, Fermin Catheter ROM/Strength ROM Upper Extremities WFL ROM Lower Extremities 50% limited (B) hip, knees, ankles Strength Upper Extremities Grossly 4/5 Strength Lower Extremities n/a (B) hip, grossly 3+/5 (B) knees and ankles Integumentary/Posture Integumentary see nursing notes Bowel Incontinence: Yes Bladder Incontinence: Fermin Cath Posture flexed Neuromuscular (Tone, Coordination, Reflexes) diminished Sensory Vision: Wears Glasses Hearing: Functional Transfers Sit to Lying (QC): 4 Lying to Sitting/Side of Bed(Q: 4 Sit to Stand (QC): 2 Gait Does the Patient Walk?: No and Walking Goal NOT indicated Treatment Sit to stand x 2 for cleanup and bed change of bowel incontinence with assist from nurse aide Assessment/Needs Pt. is a 71 y.o. patient with significant debility and primarily w/c bound except for swing/stand pivot transfers to/from chairs to w/c. Pt. is currently max A with standing at edge of bed. Pt. would benefit from skilled PT to improve transfer ability for return home with medical able. Rehab Potential: Fair PT Liquor Gallery Operator Goals Liquor Gallery Operator Goals PT Half-Way Goals Time Frame: Aug 16, 2022 Sit to Lying (QC): 6 Lying-Sitting on Side/Bed(QC): 6 Sit to Stand (QC): 3 Chair/Yuw-wo-Ctksf Xfer(QC): 3 PT Plan Problem List Problem List: Activity Tolerance, Functional Strength, Safety, Balance, Transfer, Bed Mobility, ROM Treatment/Plan Treatment Plan: Continue Plan of Care Treatment Plan: Bed Mobility, Concurrent Therapy, Education, Functional Activi ty Ever, Functional Strength, Safety, Therapeutic Exercise, Transfers Treatment Duration: Aug 16, 2022 Frequency: 6 times per week Estimated Hrs Per Day: .25 hour per day Patient and/or Family Agrees t: Yes Time/GCodes Time In: 0755 Time Out: 0810 Total Billed Treatment Time: 15 Total Billed Treatment 1, [facility] 15' SUMEET OWEN PT Aug 09, 2022 10:44
[2022-08-09 11:30] VITALS: BP 134/69
[2022-08-09 15:48] VITALS: BP 124/65
[2022-08-09] MEDS: ENOXAPARIN 40 MG/0.4 ML (LOVENOX) SYR SC SCH (15:54)
[2022-08-09] MEDS: morphine IMMEDIATE RELEASE 15 MG TABLET PO PRN (18:06)
[2022-08-09 20:13] VITALS: BP 150/70
[2022-08-09] MEDS: MELATONIN 3 MG TABLET PO PRN (22:12)
[2022-08-10 00:26] VITALS: BP 133/61
[2022-08-10 03:21] VITALS: BP 134/73
[2022-08-10] MEDS: CEFEPIME 1,000 MG/NS 50 ML IVPB IV SCH ×8 (03:26→21:32)
[2022-08-10] MEDS: RT-ALBUTEROL/IPRATROPIUM 3 ML (DUONEB) VIAL INH SCH ×4 (04:25→21:54)
[2022-08-10 05:57] LABS: BASOPHILS # (AUTO) 0.1 10^3/uL (0.0-0.1); BASOPHILS % (AUTO) 1 % (0-10); EOSINOPHILS # (AUTO) 0.6 10^3/uL (0.0-0.3); EOSINOPHILS % (AUTO) 7 % (0-10); HEMATOCRIT 34 % (40-54); HEMOGLOBIN 11.1 g/dL (13.3-17.7); LYMPHOCYTES # (AUTO) 1.9 10^3/uL (1.0-4.0); LYMPHOCYTES % (AUTO) 22 % (12-44); MEAN CORPUSCULAR HEMOGLOBIN 33 pg (25-34); MEAN CORPUSCULAR HGB CONC 33 g/dL (32-36); MEAN CORPUSCULAR VOLUME 101 fL (80-99); MEAN PLATELET VOLUME 10.1 fL (9.0-12.2); MONOCYTES # (AUTO) 0.7 10^3/uL (0.0-1.0); MONOCYTES % (AUTO) 8 % (0-12); NEUTROPHILS # (AUTO) 5.4 10^3/uL (1.8-7.8); NEUTROPHILS % (AUTO) 62 % (42-75); PLATELET COUNT 322 10^3/uL (130-400); WHITE BLOOD COUNT 8.7 10^3/uL (4.3-11.0)
[2022-08-10 06:14] LABS: ALBUMIN 2.8 GM/DL (3.2-4.5); POTASSIUM 3.6 MMOL/L (3.6-5.0)
[2022-08-10 06:15] LABS: CALCIUM 8.4 MG/DL (8.5-10.1)
[2022-08-10 06:16] LABS: TOTAL PROTEIN 5.8 GM/DL (6.4-8.2)
[2022-08-10 06:18] LABS: BILIRUBIN,TOTAL 0.6 MG/DL (0.1-1.0)
[2022-08-10 06:20] LABS: CREATININE SERUM 0.75 MG/DL (0.60-1.30)
[2022-08-10 07:12] VITALS: BP 157/85
[2022-08-10] MEDS: DOCUSATE SODIUM 100 MG (COLACE) CAP PO SCH ×2 (07:37→20:29)
[2022-08-10] MEDS: SENNOSIDES 8.6 MG (SENOKOT) TAB PO SCH ×2 (07:37→20:29)
--- NOTE | 2022-08-10 07:45 | Progress Note - Hospitalist ---
Subjective HPI/CC On Admission Date Seen by Provider: Aug 10, 2022 Time Seen by Provider: 11:00 CC: Debility with early PNA and skin breakdown HPI: This is a 71yoWM known to this examiner due to frequent hospital stays due to chronic debility and complicated issues due to wheelchair bound status from bilateral hip dysfunction. He presented to the ER following hypoxia and weakness and unable to move out of his wheelchair and remaining in excrement and urine and suffering from skin breakdown and incidentally he was found to have an early PNA. Patient is improved today and Calmoseptine is very effective in healing the stage 1 pressure and exposure skin irritation. Subjective/Events-last exam No major issues Much improved status NO falls DC catheter Review of Systems General: Fatigue, Malaise Focused Exam Lactate Level 08/08/22 13:12: Lactic Acid Level 0.81 Objective Exam Vital Signs Vital Signs Date Time Temp Pulse Resp B/P (MAP) Pulse Ox O2 Delivery O2 Flow Rate FiO2 08/10/22 19:32 36.4 86 21 152/78 (102) 97 Room Air 08/10/22 15:40 0.00 Capillary Refill : Less Than 3 Seconds General Appearance: No Apparent Distress, WD/WN, Chronically ill Respiratory: Lungs Clear, Normal Breath Sounds Cardiovascular: Regular Rate, Rhythm Neurologic/Psychiatric: Alert, Oriented x3 Results/Procedures Lab Laboratory Tests 08/10/22 05:40 Patient resulted labs reviewed. Assessment/Plan Assessment and Plan Assess & Plan/Chief Complaint Assessment: Hypoxia Weakness Early PNA Skin breakdown from sitting in urine and diarrhea Poor social situation Hip joints absence Plan: PNA treatment HLIVF Monitor closely ZOHREH BHANDARI DO Aug 10, 2022 07:45
[2022-08-10] MEDS: MENTHOL/ZINC OXIDE (CALMOSEPTINE) 113 GM TUBE TOP SCH ×2 (08:18→20:30)
[2022-08-10 11:33] VITALS: BP 162/89
[2022-08-10 15:49] VITALS: BP 131/74
[2022-08-10] MEDS: ENOXAPARIN 40 MG/0.4 ML (LOVENOX) SYR SC SCH (17:20)
[2022-08-10 19:32] VITALS: BP 152/78
[2022-08-10] MEDS: MELATONIN 3 MG TABLET PO PRN (20:29)
[2022-08-10] MEDS: morphine IMMEDIATE RELEASE 15 MG TABLET PO PRN (22:07)
[2022-08-10] MEDS ORDERED: RT-ALBUTEROL/IPRATROPIUM 3 ML (DUONEB) VIAL INH PRN (22:45)
[2022-08-10] MEDS: LORazepam 0.5 MG (ATIVAN) TABLET PO PRN (23:25)
[2022-08-11] VITALS: BP 148/73
[2022-08-11] MEDS: CEFEPIME 1,000 MG/NS 50 ML IVPB IV SCH ×4 (03:28→09:21)
[2022-08-11 04:02] VITALS: BP 137/76
[2022-08-11] MEDS: LORazepam 0.5 MG (ATIVAN) TABLET PO PRN (04:04)
[2022-08-11 05:52] LABS: BASOPHILS # (AUTO) 0.1 10^3/uL (0.0-0.1); BASOPHILS % (AUTO) 1 % (0-10); EOSINOPHILS # (AUTO) 0.6 10^3/uL (0.0-0.3); EOSINOPHILS % (AUTO) 7 % (0-10); HEMATOCRIT 34 % (40-54); HEMOGLOBIN 11.3 g/dL (13.3-17.7); LYMPHOCYTES % (AUTO) 21 % (12-44); MEAN CORPUSCULAR HEMOGLOBIN 33 pg (25-34); MEAN CORPUSCULAR HGB CONC 33 g/dL (32-36); MEAN CORPUSCULAR VOLUME 99 fL (80-99); MEAN PLATELET VOLUME 10.1 fL (9.0-12.2); MONOCYTES # (AUTO) 0.6 10^3/uL (0.0-1.0); MONOCYTES % (AUTO) 7 % (0-12); NEUTROPHILS # (AUTO) 5.8 10^3/uL (1.8-7.8); NEUTROPHILS % (AUTO) 64 % (42-75); PLATELET COUNT 368 10^3/uL (130-400); WHITE BLOOD COUNT 9.1 10^3/uL (4.3-11.0)
[2022-08-11 05:57] LABS: ALBUMIN 2.7 GM/DL (3.2-4.5)
[2022-08-11 05:58] LABS: POTASSIUM 4.1 MMOL/L (3.6-5.0)
[2022-08-11 05:59] LABS: CALCIUM 8.6 MG/DL (8.5-10.1)
[2022-08-11 06:00] LABS: TOTAL PROTEIN 5.6 GM/DL (6.4-8.2)
[2022-08-11 06:02] LABS: BILIRUBIN,TOTAL 0.7 MG/DL (0.1-1.0)
[2022-08-11 06:04] LABS: CREATININE SERUM 0.74 MG/DL (0.60-1.30)
[2022-08-11 07:33] VITALS: BP 139/80
[2022-08-11] MEDS ORDERED: RT-ALBUTEROL/IPRATROPIUM 3 ML (DUONEB) VIAL INH SCH (08:00)
[2022-08-11] MEDS: DOCUSATE SODIUM 100 MG (COLACE) CAP PO SCH (08:01)
[2022-08-11] MEDS: SENNOSIDES 8.6 MG (SENOKOT) TAB PO SCH (08:01)
[2022-08-11] MEDS: MENTHOL/ZINC OXIDE (CALMOSEPTINE) 113 GM TUBE TOP SCH (08:03)
[2022-08-11] MEDS ORDERED: SERT-413 PO (08:26)
[2022-08-11] MEDS ORDERED: ZOLP10TA PO (08:26)
[2022-08-11] MEDS ORDERED: FURO40TA4 PO (08:28)
[2022-08-11] MEDS ORDERED: IBUP-2473 PO (08:28)
[2022-08-11] MEDS ORDERED: MENT71OI TP (08:33)
[2022-08-11] MEDS: morphine IMMEDIATE RELEASE 15 MG TABLET PO PRN (09:21)
--- NOTE | 2022-08-11 10:28 | Progress Note ---
JOBY BOWDEN 08/11/22 1028: Progress Note Pt is feeling much better today and is ready to go home. States his only complaint is chronic bilateral hip pain, which he plans to schedule an appointment with his orthopedist at within the next week. This morning he ate breakfast and had a bowel movement. Denies CP, N/V/D, dysuria, abdominal pain, or any other acute sx. Hospital Course: Mr. Jalloh, 71 YO M, with a history of avascular necrosis, asthma, chronic non healing hip wounds, COPD, and DM presented to ED on 08/08/22 c/o hypoxia, diarrhea, weakness, and incontinence of urine and stool that he was sitting in upon arrival. He is noted to have frequent hospital stays due to chronic debility and WC bound status from bilateral hip dysfunction. Upon admission he was found to have skin breakdown surrounding the perineum, groin, upper legs and buttocks and an incidental finding of early PNA. He was started on cefepime, duoneb treatments, and calmoseptine for skin breakdown, which is now improving. His white count improved and his catheter was removed on 08/10. Today pt states he is feeling significantly better and wants to go home. He currently lives in an apartment that is "somewhat" wheelchair accessible, however he will be moving to a house tomorrow that is now completely wheelchair accessible. He also is getting a motorized wheelchair for easier mobility. We will arrange home health to assist him once discharged. Instructed patient to continue using the duoneb treatments at home. Pt is agreeable with plan and stable for d/c. KIRSTEN BHANDARI DO 08/12/22 0501: Supervisory-Addendum Brief Verification & Attestation Participated in pt care: history, MDM, physical Personally performed: exam, history, MDM, supervision of care Care discussed with: Medical Student Procedures: n/a Results interpretation: Verified all documentation Verification and Attestation of Medical Student E/M Service A medical student performed and documented this service in my presence. I reviewed and verified all information documented by the medical student and made modifications to such information, when appropriate. I personally performed the physical exam and medical decision making. Kirsten Bhandari Aug 12, 2022,05:01 JOBY BOWDEN Aug 11, 2022 10:28 KIRSTEN BHANDARI DO Aug 12, 2022 05:01
--- NOTE | 2022-08-11 10:36 | Physical Therapy Progress Note ---
Therapy Progress Note Patient declined PT intervention on this date. Patient states, "I have some business to take care of and I'm going to go home." PT will attempt tomorrow a.m. 1 ref DAMIR VILLALOBOS PT Aug 11, 2022 10:36
[2022-08-11] MEDS ORDERED: OXC5T PO (10:42)
[2022-08-11] MEDS ORDERED: CEFD300C3 PO (10:42)
--- NOTE | 2022-08-11 10:43 | D/C HH Face to Face Order ---
D/C Face to Face Orders Reconcile Patient Problems Problems Reviewed?: Yes Instructions for Patient [facility] [address] [facility], Patient Instructions/FollowUp: PCP [facility] 1 week Physician to follow Patient: [facility] Discharge Diet for Home: No Restrictions Patient Problems: PNA Debility Patient Data-Allergies,Ht & Wt Patient Allergies: Coded Allergies: codeine (Verified Allergy, Mild, HIVES...TAKES OXYCODONE & MS CONTIN AT HOME, 03/11/19) streptokinase (Verified Allergy, Unknown, 03/11/19) Height (Feet): 5 Height (Inches): 8.00 Weight (Pounds): 170 Weight (Ounces): 8.0 Home Health Need/Face to Face Date of Face to Face: Aug 11, 2022 Clinical Findings: Generalized weakness and fatigue, Muscle weakness I have seen Pt [id number]: Yes Discharged To: Home Diagnosis/Conditions: Debility Patient is Homebound due to: Collins fall risk due to instabilty, Muscle weakness Homebound Status Due to the above stated illness, injury or surgical procedure (medical condition or diagnosis) and associated clinical findings, the patient is homebound because of his/her inability to leave home except with aid of a supportive device and/or person AND leaving the home requires a considerable and taxing effort or is medically contraindicated. Pt req the following assistanc: Wheelchair Home Health Nursing Orders Home Health Services Order: Nursing Services, Casino Gaming Inspector-Evaluate & Treat, Physical Therapy-Evaluate & Treat Home Health Infusion Therapy Line Start Date: Aug 08, 2022 Certify Stmt I certify that this patient is under my care and that I, a nurse practitioner or a physician; a medical claims assistant working with me, had a face to face encounter that - meets the physician face to face encounter requirements with this patient as dated. ZOHREH BHANDARI DO Aug 11, 2022 10:43
--- NOTE | 2022-08-11 10:44 | Discharge Summary ---
Discharge Summary Hospital Course Was the Problem List Reviewed?: Yes Problems/Dx: (1) Pneumonia Qualifiers: Qualified Codes: J18.9 - Pneumonia, unspecified organism (2) Unable to care for self (3) Chronic pain Status: Chronic Hospital Course Date of Admission: Aug 08, 2022 at 15:21 Admission Diagnosis : Family Physician/Provider: Uriel Cardona MD Date of Discharge: 08/11/22 Discharge Diagnosis: [ ] Hospital Course: Pt is feeling much better today and is ready to go home. States his only complaint is chronic bilateral hip pain, which he plans to schedule an appointment with his orthopedist at within the next week. This morning he ate breakfast and had a bowel movement. Denies CP, N/V/D, dysuria, abdominal pain, or any other acute sx. Hospital Course: Mr. Jalloh, 71 YO M, with a history of avascular necrosis, asthma, chronic non healing hip wounds, COPD, and DM presented to ED on 08/08/22 c/o hypoxia, diarrhea, weakness, and incontinence of urine and stool that he was sitting in upon arrival. He is noted to have frequent hospital stays due to chronic debility and WC bound status from bilateral hip dysfunction. Upon admission he was found to have skin breakdown surrounding the perineum, groin, upper legs and buttocks and an incidental finding of early PNA. He was started on cefepime, duo neb treatments, and calmoseptine for skin breakdown, which is now improving. His white count improved and his catheter was removed on 08/10. Today pt states he is feeling significantly better and wants to go home. He currently lives in an apartment that is "somewhat" wheelchair accessible, however he will be moving to a house tomorrow that is now completely wheelchair accessible. He also is getting a motorized wheelchair for easier mobility. We will arrange home health to assist him once discharged. Instructed patient to continue using the duoneb treatments at home. Pt is agreeable with plan and stable for d/c. JOBY BOWDEN Aug 11, 2022 10:28 Labs and Pending Lab Test: Laboratory Tests 08/11/22 05:22: White Blood Count 9.1, Red Blood Count 3.42L, Hemoglobin 11.3L, Hematocrit 34L, Mean Corpuscular Volume 99, Mean Corpuscular Hemoglobin 33, Mean Corpuscular Hemoglobin Concent 33, Red Cell Distribution Width 13.1, Platelet Count 368, Mean Platelet Volume 10.1, Immature Granulocyte % (Auto) 0, Neutrophils (%) (Aut o) 64, Lymphocytes (%) (Auto) 21, Monocytes (%) (Auto) 7, Eosinophils (%) (Auto) 7, Basophils (%) (Auto) 1, Neutrophils # (Auto) 5.8, Lymphocytes # (Auto) 2.0, Monocytes # (Auto) 0.6, Eosinophils # (Auto) 0.6H, Basophils # (Auto) 0.1, Immature Granulocyte # (Auto) 0.0, Sodium Level 135, Potassium Level 4.1, Chloride Level 107, Carbon Dioxide Level 19L, Anion Gap 9, Blood Urea Nitrogen 13, Creatinine 0.74, Estimat Glomerular Filtration Rate 98, BUN/Creatinine Ratio 18, Glucose Level 101, Calcium Level 8.6, Corrected Calcium 9.6, Total Bilirubin 0.7, Aspartate Amino Transf (AST/SGOT) 20, Alanine Aminotransferase (ALT/SGPT) 11, Alkaline Phosphatase 91, Total Protein 5.6L, Albumin 2.7L Microbiology 08/08/22 Blood Culture - Preliminary, Resulted No growth 08/08/22 Urine Culture - Final, Complete NO GROWTH Home Meds Active Cefdinir 300 Mg Capsule 300 Mg PO BID Oxyir Tablet (Oxycodone HCl) 5 Mg Tab 5 Mg PO Q4HR PRN Reported Calmoseptine Ointment (Menthol/Lanolin/Calamine/Znox) 0.44 %-20.6 % Oint 1 Applic TP DAILY PRN Ibuprofen 200 Mg Tablet 400 Mg PO Q6H PRN Furosemide 40 Mg Tablet 40 Mg PO DAILY PRN Sertraline HCl 50 Mg Tablet 50 Mg PO DAILY PRN Ambien (Zolpidem Tartrate) 10 Mg Tablet 10 Mg PO HS PRN Neurontin (Gabapentin) 300 Mg Capsule 300 Mg PO TID Proair Hfa (Albuterol Sulfate) 1 Puff Puff 2 Puff INH Q6H PRN Assessment/Pt Instructions pcp 1 week Discharge Planning: <30 minutes discharge planning Discharge Instructions Discharge Diet: No Restrictions Discharge Physical Examination Vital Signs Vital Signs Date Time Temp Pulse Resp B/P (MAP) Pulse Ox O2 Delivery O2 Flow Rate FiO2 08/11/22 08:10 Room Air 08/11/22 07:33 36.3 86 20 139/80 (99) 95 08/10/22 21:57 21 08/10/22 15:40 0.00 General Appearance: No Apparent Distress, WD/WN, Chronically ill Respiratory: Lungs Clear, Normal Breath Sounds Cardiovascular: Regular Rate, Rhythm Allergies: Coded Allergies: codeine (Verified Allergy, Mild, HIVES...TAKES OXYCODONE & MS CONTIN AT HOME, 03/11/19) streptokinase (Verified Allergy, Unknown, 03/11/19) Discharge Summary Date of Admission Aug 08, 2022 at 15:21 Date of Discharge Discharge Date: Aug 11, 2022 Admission Diagnosis Assessment: Hypoxia Weakness Early PNA Skin breakdown from sitting in urine and diarrhea Poor social situation Hip joints absence Plan: PNA treatment HLIVF Monitor closely Discharge Diagnosis Assessment: Hypoxia Weakness Early PNA Skin breakdown from sitting in urine and diarrhea Poor social situation Hip joints absence Plan: PNA treatment HLIVF Monitor closely ZOHREH BHANDARI DO Aug 11, 2022 10:44
--- NOTE | 2022-08-11 10:58 | Occupational Therapy Eval ---
OT Evaluation-General/PLF Medical Diagnosis Admission Date Aug 08, 2022 at 15:21 Medical Diagnosis: pneumonia Onset Date: Aug 08, 2022 Therapy Diagnosis Therapy Diagnosis: n/a Height/Weight Height (Feet): 5 Height (Inches): 8.00 Weight (Pounds): 170 Weight (Ounces): 8.0 Precautions Precautions/Isolations: Fall Prevention, Standard Precautions Referral Physician: Dr. Sanz Referral Reason: Evaluation/Treatment Medical History Pertinent Medical History: Arthritis, CAD, COPD, DM, HTN Current History Pt came to ER due to being left soiled with urine and BMs and having ulcers on bottom. Pt is living in an apartment by himself at the moment, but in the next few days will be moving to his own handicap accessible house. At the apt there is no stairs and he has a tub shower with a transfer bench. At this new house, there will be a ramp and he will have a walk-in shower with a bench installed in it. He uses a power w/c at home at base level. He reports being independent with all ADLs and IADLS. He reported having a patient care provider that comes 5 days a week M-F 10am-5:30 pm. He reported that the dean of faculty is only there for supervision in case he needs/wants help with something. He also reported that he has home health (nursing) 2 days/week. He stated that he is able to perform all functional transfers by himself to all surfaces (hospital bed, shower bench/chair, and toilet). Reviewed History: Yes Social History Home: Single Level Current Living Status: Alone Entry Into Home: Ramp ADL-Prior Level of Function SCALE: Activities may be completed with or without assistive devices. 5-Itdbngwijk-dsjbnhe completes the activity by him/herself with no assistance from a helper. 5-Set-up or Clean-up Assistance-helper sets up or cleans up; patient completes activity. [place] assists only prior to or following the activity. 4-Supervision or Touching Assistance-helper provides verbal cues and/or touching/steadying and/or contact guard assistance as patient completes activity. Assistance may be provided throughout the activity or intermittently. 3-Partial/Moderate Assistance-helper does LESS THAN HALF the effort. [place] lifts, holds or supports trunk or limbs, but provides less than half the effort. 2-Substantial/Maximal Assistance-helper does MORE THAN HALF the effort. [place] lifts or holds trunk or limbs and provides more than half the effort. 8-Jwwvgfaiz-iptlfh does ALL the effort. Patient does none of the effort to complete the activity. Or, the assistance of 2 or more helpers is required for the patient to complete the activity. If activity was not attempted, code reason: 7-Patient Refused. 9-Not Applicable-not attempted and the patient did not perform the activity before the current illness, exacerbation or injury. 10-Not Attempted due to Environmental Limitations-(lack of equipment, weather restraints, etc.). 88-Not Attempted due to Medical Conditions or Safety Concerns. Self Care: Needed Some Help Functional Cognition: Independent DME/Equipment: Bath Bench, Grab Bars, Shower Drive Self: Yes OT Current Status Subjective Pt laying in bed upon arrival. He agrees to a therapy eval. Appearance Pt left laying in bed with all needs met. Mental Status/Objective Patient Orientation: Person, Place, Time, Situation Attachments: IV Current Upper Extremity ROM WFL ~165 degrees at shoulders Minor loss of seated balance with shoulder flexion Upper Extremity Strength Chef strength: mildly impaired 3-/5 ADL-Treatment On/Off Footwear (QC): 6 Toileting Hygiene (QC): 2 Supiner<>sit: independent with increased time. Pt has good flexibility at hips and was able to reach to doff/don socks with independence. Upon returning to bed, therapist noticed a small BM. Pt unaware of BM and rolled R/L for therapist to assist in thoroughness cleanup. Pt reported no concerns and believes that he is back at baseline for adls. He declines any further OT services and reports that his caregiver can also assist if needed. Education OT Patient Education: Correct positioning, Modified ADL techniques, Purpose of tx/functional activities, Reviewed precautions, Rehab process Teaching Recipient: Patient Teaching Methods: Discussion Response to Teaching: Verbalize Understanding, Return Demonstration OT Fci Goals Fci Goals 1=Demonstrate adherence to instructed precautions during ADL tasks. 2=Patient will verbalize/demonstrate understanding of assistive devices/modifications for ADL. 3=Patient will improve strength/tolerance for activity to enable patient to perform ADL's. OT Education/Plan Problem List/Assessment Assessment: No Skilled OT Needs ID'd Discharge Recommendations Plan/Recommendations: Discontinue OT Therapy Discharge Recommendati: Bath Aide, Homemaker Support, Home & Family Treatment Plan/Plan of Care Treatment,Training & Education: Yes Patient would benefit from OT for education, treatment and training to promote independence in ADL's, mobility, safety and/or upper extremity function for ADL's. Plan of Care: ADL Retraining, Functional Mobility Treatment Duration: Aug 11, 2022 Frequency: 1 time per week Estimated Hrs Per Day: .25 hour per day Agreement: Yes Rehab Potential: Fair Time/GCodes Start Time: 10:00 Stop Time: 10:23 Total Time Billed (hr/min): 23 Billed Treatment Time 1 visit EVL (10 min) ADL (13 min) Bonnie Brewster OT Aug 11, 2022 10:58
[2022-08-11 14:25] VITALS: BP 139/80
--- NOTE | 2022-08-11 15:47 | Physician Query Clarification ---
Physician Query-General Query to Physician: The medical record reflects the following clinical evidence: Clinical Indicators: Admission VS/Labs: HR 103, RR 18, BP 175/102, SpO2 97% sat on room air T 37.0, 13.3,, lactic acid 0.81 hypoxia and weakness Risk Factor(s): Pneumonia, Unable to do self care "remaining in excrement and urine and suffering from skin breakdown", Weakness, Treatment: ER: Normal saline 500 mL, cefepime IV, albuterol, 1L NS given on the , 1. Sepsis, unspecified organism, present on admission 2. Other explanation of clinical findings 3. Unable to determine (no explanation for clinical findings) Please clarify and document your clinical opinion in the progress notes and discharge summary including the definitive and/or presumptive diagnosis, (suspected or probable), related to the above clinical findings. Please include clinical findings supporting your diagnosis. Leticia Beltran RN, MSN Clinical Commercial Print Salesman [phone] [email or web address] PHYSICIAN RESPONSE: Based on the clinical findings in the record, please respond to the query above on this document as an addendum. Physician Response: Physician Response Weakness If you have questions please contact: Rig Builder Helper: Ext: Thank you for your time and cooperation. Clinical Commercial Print Salesman/Rig Builder Helper This is a permanent part of the medical record LETICIA BELTRAN Aug 11, 2022 15:47 ZOHREH BHANDARI DO Aug 11, 2022 21:01
== END 2022-08-11 14:25 | disposition home health service (06) | DRG 592 ==
LOC: EDUNIT# 12:17 → ER 12:18 → 4TH 15:21
PROVIDERS: ADMIT Internal Medicine; ATTEND Internal Medicine
DX: L97.111 Non-pressure chronic ulcer of right thigh limited to breakdown of skin (principal); J18.9 Pneumonia, unspecified organism; J44.0 Chronic obstructive pulmonary disease with (acute) lower respiratory infection; L97.121 Non-pressure chronic ulcer of left thigh limited to breakdown of skin; L08.9 Local infection of the skin and subcutaneous tissue, unspecified; L98.411 Non-pressure chronic ulcer of buttock limited to breakdown of skin; L98.491 Non-pressure chronic ulcer of skin of other sites limited to breakdown of skin; R32 Unspecified urinary incontinence; R15.9 Full incontinence of feces; R09.02 Hypoxemia; F17.210 Nicotine dependence, cigarettes, uncomplicated; E11.9 Type 2 diabetes mellitus without complications; I11.0 Hypertensive heart disease with heart failure; I50.9 Heart failure, unspecified; M25.552 Pain in left hip; M25.551 Pain in right hip; I48.91 Unspecified atrial fibrillation; H91.90 Unspecified hearing loss, unspecified ear; I25.2 Old myocardial infarction; Z99.3 Dependence on wheelchair; Z89.622 Acquired absence of left hip joint; Z89.621 Acquired absence of right hip joint; Z95.810 Presence of automatic (implantable) cardiac defibrillator; Z79.4 Long term (current) use of insulin; Z23 Encounter for immunization; Z88.5 Allergy status to narcotic agent; Z88.8 Allergy status to other drugs, medicaments and biological substances; R53.1 Weakness
CPT/HCPCS: 36410; 36415; 71045; 76937; 80053; 80061; 81000; 83605; 83735; 83874; 84484; 85025; 85610; 85730; 86141; 87040; 87088; 90686; 93005; 93041; 94640; 94664; 94760

== ENCOUNTER 2022-08-20 13:43 | Emergency (ER) | payer MEDICARE, MEDICAID ==
[~2022-08-20] VITALS: Ht 172 cm; Wt 90.0 kg
[~2022-08-20 13:43] MED LIST changes: +ALBU8.5H6 INH; +CEFD300C3 PO; +IBUP-2473 PO; +MENT71OI TP; +OXC5T PO; -RT-ALBUINH INH; +SERT-413 PO
[2022-08-20 14:24] LABS: BASOPHILS # (AUTO) 0.1 10^3/uL (0.0-0.1); BASOPHILS % (AUTO) 1 % (0-10); EOSINOPHILS # (AUTO) 0.3 10^3/uL (0.0-0.3); EOSINOPHILS % (AUTO) 3 % (0-10); HEMATOCRIT 41 % (40-54); HEMOGLOBIN 13.4 g/dL (13.3-17.7); LYMPHOCYTES # (AUTO) 2.1 10^3/uL (1.0-4.0); LYMPHOCYTES % (AUTO) 20 % (12-44); MEAN CORPUSCULAR HEMOGLOBIN 32 pg (25-34); MEAN CORPUSCULAR HGB CONC 32 g/dL (32-36); MEAN CORPUSCULAR VOLUME 98 fL (80-99); MEAN PLATELET VOLUME 10.5 fL (9.0-12.2); MONOCYTES # (AUTO) 0.6 10^3/uL (0.0-1.0); MONOCYTES % (AUTO) 6 % (0-12); NEUTROPHILS # (AUTO) 7.1 10^3/uL (1.8-7.8); NEUTROPHILS % (AUTO) 69 % (42-75); PLATELET COUNT 335 10^3/uL (130-400); WHITE BLOOD COUNT 10.3 10^3/uL (4.3-11.0)
[2022-08-20] MEDS ORDERED: LACTATED RINGERS 1,000 ML IV ONE (14:30)
[2022-08-20 14:37] LABS: ALBUMIN 3.3 GM/DL (3.2-4.5)
[2022-08-20 14:38] LABS: CALCIUM 8.7 MG/DL (8.5-10.1)
[2022-08-20 14:40] LABS: TOTAL PROTEIN 6.9 GM/DL (6.4-8.2)
[2022-08-20 14:41] LABS: BILIRUBIN,TOTAL 0.8 MG/DL (0.1-1.0)
[2022-08-20 14:43] LABS: CREATININE SERUM 0.81 MG/DL (0.60-1.30)
--- NOTE | 2022-08-20 14:46 | ED Abdominal Pain ---
General Chief Complaint: Abdominal/GI Problems Stated Complaint: DIARRHEA/CHEST PAIN Nursing Triage Note: PT BRPUGHT IN BY [facility] FROM HOME WITH COMPLAINT OF DIARRHEA. STATES HES HAD DIARRHEA FOR TWO WEEKS. Source of Information: Patient Exam Limitations: No Limitations History of Present Illness Date Seen by Provider: Aug 20, 2022 Time Seen by Provider: 13:50 Initial Comments Here with report of diarrhea. He has had this intermittently over the last several weeks. He is also had chest pain for the last month and has been seen twice for this before. He told EMS of the chest pain but did not mention that to me until I asked and then admits that he has had chest pain that is sharp and central for the last 3 weeks. Not really getting better or worse. States that he weaned himself off narcotics 2 years ago. When asked about how he is doing at home, he states that he has home health and some sort of aide that helps him out daily. When asked when the person was the last there he reports it was last week. He is a very poor historian overall. Denies smoking but has multiple cigarette bouts mixed in with his clothing and stool. 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 Timing/Duration: 12-24 Hours Severity/Quality: Moderate, Cramping, Other (Diarrhea) Radiation: No Radiation Associated Symptoms: Chest Pain (Central, sharp near the left breast and nonradiating and has been persistent for the last 3 weeks.) Allergies and Home Medications Allergies Coded Allergies: codeine (Verified Allergy, Mild, HIVES...TAKES OXYCODONE & MS CONTIN AT HOME, 03/11/19) streptokinase (Verified Allergy, Unknown, 03/11/19) Patient Home Medication List Home Medication List Reviewed: Yes Albuterol Sulfate (Proair Hfa) 1 Puff Puff, 2 PUFF INH Q6H PRN for SHORTNESS OF BREATH, (Reported) Entered as Reported by: KARINA RAPHAEL on 08/06/20 1606 Cefdinir (Cefdinir) 300 Mg Capsule, 300 MG PO BID Prescribed by: ZOHREH BHANDARI on 08/11/22 1042 Furosemide (Furosemide) 40 Mg Tablet, 40 MG PO DAILY PRN for FLUID RETENTION, (Reported) Entered as Reported by: CHAVA HERRERA on 08/11/22 0828 Gabapentin (Neurontin) 300 Mg Capsule, 300 MG PO TID, (Reported) Entered as Reported by: KARINA RAPHAEL on 08/01/22 1517 Ibuprofen (Ibuprofen) 200 Mg Tablet, 400 MG PO Q6H PRN for PAIN-MILD (1-4), (Reported) Entered as Reported by: CHAVA HERRERA on 08/11/22 08 Menthol/Lanolin/Calamine/Znox (Calmoseptine Ointment) 0.44 %-20.6 % Oint, 1 APPLIC TP DAILY PRN for SKIN IRRITATION, (Reported) Entered as Reported by: CHAVA HERRERA on 08/11/22 0833 Oxycodone Hcl (Oxyir Tablet) 5 Mg Tab, 5 MG PO Q4HR PRN for PAIN-SEE DOSE INSTRUCTIONS Prescribed by: ZOHREH BHANDARI on 08/11/22 1043 Sertraline HCl (Sertraline HCl) 50 Mg Tablet, 50 MG PO DAILY PRN for AGITATION, (Reported) Entered as Reported by: CHAVA HERRERA on 08/11/22 08 Zolpidem Tartrate (Ambien) 10 Mg Tablet, 10 MG PO HS PRN for SLEEP, (Reported) Entered as Reported by: CHAVA HERRERA on 08/11/22825 Review of Systems Review of Systems Constitutional: see HPI; No chills, No fever EENTM: No Nose Congestion, No Throat Pain Respiratory: Denies Cough, Denies Shortness of Air Cardiovascular: Chest Pain; Denies Irregular Heart Rate Gastrointestinal: Abdominal Pain, Diarrhea; Denies Vomiting Genitourinary: No Symptoms Reported Musculoskeletal: No back pain, No muscle pain Skin: no symptoms reported All Other Systems Reviewed Negative Unless Noted: Yes Past Pgdhskl-Ycykuz-Odbkbo Hx Patient Social History Tobacco Use?: No Smoking Status: Former Smoker Use of E-Cig and/or Vaping dev: No Substance use?: No Alcohol Use?: No Immunizations Up To Date Tetanus Booster (TDap): Less than 5yrs PED Vaccines UTD: No Seasonal Allergies Seasonal Allergies: No Past Medical History Surgeries: Yes (BILAT HIP REPLACEMENTS X 22; WOUND DEBRIDEMENTS) Abdominal, Appendectomy, Cardiac, Defibrillator, Joint Replacement, Orthopedic, Pacemaker Respiratory: Yes Asthma, COPD Currently Using CPAP: No Currently Using BIPAP: No Cardiac: Yes (PACEMAKER, CARDIAC ARREST, SELF - REPORTED DE X 8; CHF) Atrial Fibrillation, Chronic Edema/Swelling, Coronary Artery Disease, Congenital Heart Disease, Heart Attack, Hypertension, Irregular Heartbeat Neurological: Yes Neuropathy Reproductive Disorders: No Sexually Transmitted Disease: No HIV/AIDS: No Genitourinary: Yes Neurogenic Bladder Gastrointestinal: Yes Abdominal Hernia, Chronic Constipation Musculoskeletal: Yes Arthritis, Chronic Back Pain, Fractures Endocrine: Yes Diabetes, Insulin dep HEENT: Yes Dysphagia Loss of Vision: Denies Hearing Impairment: Hard of Hearing Cancer: No Psychosocial: Yes Suicide Attempts, Depression Integumentary: Yes (recurrent wound issues) Recent Skin Changes Blood Disorders: No Adverse Reaction/Blood Tranf: Yes (HIGH FEVER AND CHILLS) Family Medical History Reviewed Nursing Family Hx COPD Diabetes mellitus Adopted, unknown FH Physical Exam Vital Signs Vital Signs - First Documented 08/20/22 13:46 Temp 36.7 Pulse 98 Resp 16 B/P (MAP) 181/92 (121) Pulse Ox 97 O2 Delivery Room Air Capillary Refill : Less Than 3 Seconds Height/Weight/BMI Height: 5'8.00" Weight: 170lbs. 8.0oz. [id number]; 30.00 BMI Method:Stated General Appearance: WD/WN, no apparent distress HEENT: PERRL/EOMI, pharynx normal Neck: full range of motion, supple Respiratory: lungs clear, normal breath sounds, other (Reproducible chest pain at area of left breast) Cardiovascular: regular rate, rhythm, no murmur Gastrointestinal: normal bowel sounds, non tender, soft Extremities: non-tender, normal inspection Back: normal inspection, no CVA tenderness, no vertebral tenderness Neurologic/Psychiatric: alert, oriented x 3 Skin: warm/dry, other (Moderate skin breakdown in the area of the perineum, buttocks and groin similar to previous visit) Progress/Results/Core Measures Results/Orders Lab Results Laboratory Tests Test 08/20/22 14:10 08/20/22 14:48 08/20/22 16:12 Range/Units White Blood Count 10.3 4.3-11.0 10^3/uL Red Blood Count 4.23 L 4.30-5.52 10^6/uL Hemoglobin 13.4 13.3-17.7 g/dL Hematocrit 41 40-54 % Mean Corpuscular Volume 98 80-99 fL Mean Corpuscular Hemoglobin 32 25-34 pg Mean Corpuscular Hemoglobin Concent 32 32-36 g/dL Red Cell Distribution Width 13.3 10.0-14.5 % Platelet Count 335 130-400 10^3/uL Mean Platelet Volume 10.5 9.0-12.2 fL Immature Granulocyte % (Auto) 0 % Neutrophils (%) (Auto) 69 42-75 % Lymphocytes (%) (Auto) 20 12-44 % Monocytes (%) (Auto) 6 0-12 % Eosinophils (%) (Auto) 3 0-10 % Basophils (%) (Auto) 1 0-10 % Neutrophils # (Auto) 7.1 1.8-7.8 10^3/uL Lymphocytes # (Auto) 2.1 1.0-4.0 10^3/uL Monocytes # (Auto) 0.6 0.0-1.0 10^3/uL Eosinophils # (Auto) 0.3 0.0-0.3 10^3/uL Basophils # (Auto) 0.1 0.0-0.1 10^3/uL Immature Granulocyte # (Auto) 0.0 0.0-0.1 10^3/uL Sodium Level 141 135-145 MMOL/L Potassium Level 4.0 3.6-5.0 MMOL/L Chloride Level 106 98-107 MMOL/L Carbon Dioxide Level 23 21-32 MMOL/L Anion Gap 12 5-14 MMOL/L Blood Urea Nitrogen 16 7-18 MG/DL Creatinine 0.81 0.60-1.30 MG/DL Estimat Glomerular Filtration Rate 95 BUN/Creatinine Ratio 20 Glucose Level 64 L 70-105 MG/DL Calcium Level 8.7 8.5-10.1 MG/DL Corrected Calcium 9.3 8.5-10.1 MG/DL Magnesium Level 1.4 L 1.6-2.4 MG/DL Total Bilirubin 0.8 0.1-1.0 MG/DL Aspartate Amino Transf (AST/SGOT) 36 H 5-34 U/L Alanine Aminotransferase (ALT/SGPT) 17 0-55 U/L Alkaline Phosphatase 139 H 40-136 U/L Troponin I 0.031 H < 0.028 <0.028 NG/ML C-Reactive Protein High Sensitivity 2.63 H 0.00-0.50 MG/DL Total Protein 6.9 6.4-8.2 GM/DL Albumin 3.3 3.2-4.5 GM/DL Urine Color YELLOW Urine Clarity CLEAR Urine pH 6.0 5-9 Urine Specific Lamar >=1.030 1.016-1.022 Urine Protein TRACE H NEGATIVE Urine Glucose (UA) NEGATIVE NEGATIVE Urine Ketones TRACE H NEGATIVE Urine Nitrite NEGATIVE NEGATIVE Urine Bilirubin NEGATIVE NEGATIVE Urine Urobilinogen 0.2 < = 1.0 MG/DL Urine Leukocyte Esterase NEGATIVE NEGATIVE Urine RBC (Auto) NEGATIVE NEGATIVE Urine RBC RARE /HPF Urine WBC 0-2 /HPF Urine Squamous Epithelial Cells 2-5 /HPF Urine Crystals NONE /LPF Urine Bacteria NEGATIVE /HPF Urine Casts PRESENT /LPF Urine Hyaline Casts 0-2 H /LPF Urine Mucus NEGATIVE /LPF Urine Culture Indicated NO Urine Opiates Screen NEGATIVE NEGATIVE Urine Oxycodone Screen NEGATIVE NEGATIVE Urine Methadone Screen NEGATIVE NEGATIVE Urine Propoxyphene Screen NEGATIVE NEGATIVE Urine Barbiturates Screen NEGATIVE NEGATIVE Ur Tricyclic Antidepressants Screen NEGATIVE NEGATIVE Urine Phencyclidine Screen NEGATIVE NEGATIVE Urine Amphetamines Screen NEGATIVE NEGATIVE Urine Methamphetamines Screen NEGATIVE NEGATIVE Urine Benzodiazepines Screen NEGATIVE NEGATIVE Urine Cocaine Screen NEGATIVE NEGATIVE Urine Cannabinoids Screen NEGATIVE NEGATIVE My Orders Orders - CARROLL ORTIZ MD Cbc With Automated Diff (08/20/22 14:17) Comprehensive Metabolic Panel (08/20/22 14:17) Hs C Reactive Protein (08/20/22 14:17) Drug Screen Stat (Urine) (08/20/22 14:17) Magnesium (08/20/22 14:17) Troponin I Ernesto (08/20/22 14:17) Ua Culture If Indicated (08/20/22 14:17) Ed Iv/Invasive Line Start (08/20/22 14:17) Ekg Tracing (08/20/22 14:17) O2 (08/20/22 14:17) Monitor-Rhythm Ecg Trace Only (08/20/22 14:17) Chest 1 View, Ap/Pa Only (08/20/22 14:17) Ed Iv/Invasive Line Start (08/20/22 14:17) Lactated Ringers (Lr 1000 Ml Iv Solution (08/20/22 14:30) Hydrocodone/Apap 5/325 Tablet (Lortab 5 (08/20/22 16:00) Troponin I Ernesto (08/20/22 15:57) Medications Given in ED Current Medications Medications Dose Ordered Sig/Carl Route Start Time Stop Time Status Last Admin Dose Admin Acetaminophen/ Hydrocodone Bitart 1 ea ONCE ONCE PO 08/20/22 16:00 08/20/22 16:01 DC 08/20/22 16:02 1 EA Lactated Ringer's 1,000 ml @ 0 mls/hr Q0M ONCE IV 08/20/22 14:30 08/20/22 14:31 DC 08/20/22 14:50 1,000 MLS/HR Vital Signs/I&O 08/20/22 13:46 Temp 36.7 Pulse 98 Resp 16 B/P (MAP) 181/92 (121) Pulse Ox 97 O2 Delivery Room Air Blood Pressure Mean: 121 Progress Progress Note : Progress Note Seen and evaluated. IV by me via ultrasound guidance with 18-gauge to the left antecubital space. LR 1 L bolus. Labs, EKG and chest x-ray ordered. We will check UA as well as he has had recent urinary tract infection. Monitor patient. 1557: Patient overall doing better. Fluids are finishing. No indication for admission. He does have skin breakdown but he also has barrier cream at home. We did discuss options for him for toileting. He does have bedside commode and states he can use that. He would prefer to go home. We need to verify that his troponin is not trending up so we will recheck that. I did give order for hydrocodone 5/325 1 tab p.o. now but we will not do prescriptions for that. Patient verbalized understanding and agreement. Monitor patient. 1700: Overall much better. Repeat troponin negative. Patient feels comfortable going home. Discharged home with return precautions. Patient verbalized understanding of instructions and agreement with plan. Instructed to follow-up with primary care and cardiology. Initial ECG Impression Date: Aug 20, 2022 Initial ECG Impression Time: 14:27 Initial ECG Rate: 95 Initial ECG Rhythm: Normal Sinus Comment Atrial paced rhythm with normal axis. No evidence of ST elevation DE. Similar to previous of 08/02/2022. Interpreted by me. Diagnostic Imaging Diagonstic Imaging: Xray Plain Films/CT/US/NM/MRI: chest Comments [facility] [place], [place] NAME: MADDIE ESPINOZAAdriana [place] [facility] REC#: [id number] PT STATUS: REG ER : 1950 PHYSICIAN: CARROLL ORTIZ MD ADMIT DATE: 08/20/22/ER Draft Date of Exam:08/20/22 CHEST 1 VIEW, AP/PA ONLY INDICATION: Chest pain and diarrhea. TECHNIQUE: Frontal chest obtained at 03:03 p.m. and compared to 08/08/2022. FINDINGS: There is no change in pacemaker device. Heart is borderline in size. There is unchanged central vascular prominence. There is no new infiltrate or pneumothorax or pleural fluid. IMPRESSION: Borderline cardiomegaly with central vascular prominence. No new infiltrate or pneumothorax or pleural fluid. Dictated on workstation # [id number] Dict: 08/20/22 1535 Trans: 08/20/22 1540 [id number] Interpreted by: DOROTA SHEPPARD MD Electronically signed by: Departure Impression Primary Impression: Chest pain Qualified Codes: R07.9 - Chest pain, unspecified Additional Impressions: Diarrhea Qualified Codes: R19.7 - Diarrhea, unspecified Skin breakdown Disposition: HOME, SELF-CARE Condition: Stable Departure-Patient Inst. Decision time for Depature: 17:01 Referrals: OLEGARIO ROSENTHAL MD (PCP/Family) Primary Care Physician Patient Instructions: Diarrhea, Adult ED, Chest Pain, Adult ED, Skin Abrasions Add. Discharge Instructions: All discharge instructions reviewed with patient and/or family. Voiced understanding. Continue home medications as previously prescribed. Use a bedside commode and keep this close to your chair so that you can transfer to that if you need to have a bowel movement and nobody is around. Continue to use barrier cream to skin breakdown and your groin and buttocks region. Call and make appointment with your doctor for recheck and further evaluation within the next few days. You should follow-up with your collar folder operator in the next few days for recheck and further evaluation as well. Call for appointment. Return for worse pain, vomiting, weakness, breathing problems, fever or other concerns as needed. Watch your diet to see if there is something that is increasing your risk for diarrhea. You should avoid spicy or fatty foods as this will increase your risk for diarrhea. CARROLL ORTIZ MD Aug 20, 2022 14:46
[2022-08-20 14:47] LABS: MAGNESIUM 1.4 MG/DL (1.6-2.4)
[2022-08-20 14:57] LABS: BILIRUBIN,URINE NEGATIVE (NEGATIVE); CLARITY,URINE CLEAR; COLOR,URINE YELLOW; GLUCOSE, URINE (UA) NEGATIVE (NEGATIVE); KETONES,URINE TRACE (NEGATIVE); LEUKOCYTE ESTERASE ,URINE NEGATIVE (NEGATIVE); NITRITE,URINE NEGATIVE (NEGATIVE); PROTEIN,URINE TRACE (NEGATIVE)
[2022-08-20 15:07] LABS: BACTERIA,URINE NEGATIVE /HPF; RBC,URINE RARE /HPF; WBC,URINE 0-2 /HPF
[2022-08-20 15:08] LABS: HYALINE CASTS, URINE 0-2 /LPF
[2022-08-20 15:22] LABS: AMPHETAMINE SCREEN, URINE NEGATIVE (NEGATIVE); BARBITURATE SCREEN URINE NEGATIVE (NEGATIVE); BENZODIAZEPINES SCREEN URINE NEGATIVE (NEGATIVE); CANNABINOID SCREEN, URINE NEGATIVE (NEGATIVE); COCAINE SCREEN URINE NEGATIVE (NEGATIVE); METHADONE STAT NEGATIVE (NEGATIVE); OPIATE SCREEN URINE NEGATIVE (NEGATIVE); OXYCODONE STAT NEGATIVE (NEGATIVE); PROPOXYPHENE STAT NEGATIVE (NEGATIVE); TRICYCLIC ANTIDEPRESSANTS SCRE NEGATIVE (NEGATIVE)
--- NOTE | 2022-08-20 15:41 | Diagnostic Imaging Report ---
INDICATION: Chest pain and diarrhea. TECHNIQUE: Frontal chest obtained at 03:03 p.m. and compared to 08/08/2022. FINDINGS: There is no change in pacemaker device. Heart is borderline in size. There is unchanged central vascular prominence. There is no new infiltrate or pneumothorax or pleural fluid. IMPRESSION: Borderline cardiomegaly with central vascular prominence. No new infiltrate or pneumothorax or pleural fluid. Dictated by: Dictated on workstation # [id number]
[2022-08-20] MEDS ORDERED: HYDROcodone/APAP 5 MG/325 MG (LORTAB) TAB PO ONE (16:00)
[2022-08-20 17:14] VITALS: BP 192/107
[2022-08-28] MEDS ORDERED: OXC5T PO (10:34)
== END 2022-08-20 23:22 | disposition home or self-care (01) ==
LOC: EDUNIT# 13:43 → ER 13:44
DX: R19.7 Diarrhea, unspecified (principal); R07.9 Chest pain, unspecified; L98.8 Other specified disorders of the skin and subcutaneous tissue; E11.40 Type 2 diabetes mellitus with diabetic neuropathy, unspecified; Z95.0 Presence of cardiac pacemaker; Z87.891 Personal history of nicotine dependence; Z79.4 Long term (current) use of insulin
CPT/HCPCS: 36415; 71045; 80053; 80306; 81000; 83735; 84484; 85025; 86141; 93005; 96360

== ENCOUNTER 2022-08-25 18:08 | Inpatient (IN) | payer MEDICARE, MEDICAID ==
[~2022-08-25] VITALS: Ht 172.2 cm; Wt 92.3 kg
[2022-08-25] VITALS (7 sets, daily range): BP systolic 139–158; BP diastolic 75–91
--- NOTE | 2022-08-25 18:18 | ED Chest Pain ---
General Chief Complaint: Chest Pain Stated Complaint: CHEST PAIN/SOA Source: patient Exam Limitations: no limitations History of Present Illness Date Seen by Provider: Aug 25, 2022 Time Seen by Provider: 18:10 Initial Comments 71-year-old male presents via EMS for chest pain. He states symptoms started 2 hours prior to arrival. He initially tells me he is never had pain like this before however upon record review he was having chest pain last time he was her e. When asked about this he does acknowledge that this is similar type pain when he was here prior. He describes as dull throbbing in his mid chest with radiation to his left arm. States it is worse with inspiration. No fevers cough abdominal pain, changes in bowel or bladder habits. He does live at home and according to EMS his motorized chair is broken so he is unable to get around at home, sits in his recliner and soils himself as he cannot really get around to the bathroom at present. When asked about this the patient states "I do pretty well." He states he is getting around okay. Allergies and Home Medications Allergies Coded Allergies: codeine (Verified Allergy, Mild, HIVES...TAKES OXYCODONE & MS CONTIN AT HOME, 03/11/19) streptokinase (Verified Allergy, Unknown, 03/11/19) Patient Home Medication List Home Medication List Reviewed: Yes Albuterol Sulfate (Proair Hfa) 1 Puff Puff, 2 PUFF INH Q6H PRN for SHORTNESS OF BREATH, (Reported) Entered as Reported by: KARINA RAPHAEL on 08/06/20 1606 Cefdinir (Cefdinir) 300 Mg Capsule, 300 MG PO BID Prescribed by: ZOHREH BHANDARI on 08/11/22 1042 Furosemide (Furosemide) 40 Mg Tablet, 40 MG PO DAILY PRN for FLUID RETENTION, (Reported) Entered as Reported by: CHAVA HERRERA on 08/11/22 08 Gabapentin (Neurontin) 300 Mg Capsule, 300 MG PO TID, (Reported) Entered as Reported by: KARINA RAPHAEL on 08/01/22 1517 Ibuprofen (Ibuprofen) 200 Mg Tablet, 400 MG PO Q6H PRN for PAIN-MILD (1-4), (Reported) Entered as Reported by: CHAVA HERRERA on 08/11/22 08 Menthol/Lanolin/Calamine/Znox (Calmoseptine Ointment) 0.44 %-20.6 % Oint, 1 APPLIC TP DAILY PRN for SKIN IRRITATION, (Reported) Entered as Reported by: CHAVA HERRERA on 08/11/22 0833 Oxycodone Hcl (Oxyir Tablet) 5 Mg Tab, 5 MG PO Q4HR PRN for PAIN-SEE DOSE INSTRUCTIONS Prescribed by: ZOHREH BHANDARI on 08/11/22 1043 Sertraline HCl (Sertraline HCl) 50 Mg Tablet, 50 MG PO DAILY PRN for AGITATION, (Reported) Entered as Reported by: CHAVA HERRERA on 08/11/22 0826 Zolpidem Tartrate (Ambien) 10 Mg Tablet, 10 MG PO HS PRN for SLEEP, (Reported) Entered as Reported by: CHAVA HERRERA on 08/11/22 0826 Review of Systems Review of Systems Constitutional: no symptoms reported EENTM: No Symptoms Reported Respiratory: No Symptoms Reported Cardiovascular: Chest Pain Gastrointestinal: No Symptoms Reported Genitourinary: No Symptoms Reported Musculoskeletal: no symptoms reported Skin: no symptoms reported Psychiatric/Neurological: No Symptoms Reported Endocrine: No Symptoms Reported Hematologic/Lymphatic: No Symptoms Reported Past Nqmcwrg-Ccvlhp-Jtrarc Hx Patient Social History Tobacco Use?: No Smoking Status: Former Smoker Substance use?: No Alcohol Use?: No Pt feels they are or have been: No Immunizations Up To Date Tetanus Booster (TDap): Less than 5yrs PED Vaccines UTD: No Influenza Vaccine Up-to-Date: Yes; Up-to-Date Seasonal Allergies Seasonal Allergies: No Past Medical History Surgeries: Yes (BILAT HIP REPLACEMENTS X 22; WOUND DEBRIDEMENTS) Abdominal, Appendectomy, Cardiac, Defibrillator, Joint Replacement, Orthopedic, Pacemaker Respiratory: Yes Asthma, COPD Currently Using CPAP: No Currently Using BIPAP: No Cardiac: Yes (PACEMAKER, CARDIAC ARREST, SELF - REPORTED MA X 8; CHF) Atrial Fibrillation, Chronic Edema/Swelling, Coronary Artery Disease, Congenital Heart Disease, Heart Attack, Hypertension, Irregular Heartbeat Neurological: Yes Neuropathy Reproductive Disorders: No Sexually Transmitted Disease: No HIV/AIDS: No Genitourinary: Yes Neurogenic Bladder Gastrointestinal: Yes Abdominal Hernia, Chronic Constipation Musculoskeletal: Yes Arthritis, Chronic Back Pain, Fractures Endocrine: Yes Diabetes, Insulin dep HEENT: Yes Dysphagia Loss of Vision: Denies Hearing Impairment: Hard of Hearing Cancer: No Psychosocial: Yes Suicide Attempts, Depression Integumentary: Yes (recurrent wound issues) Recent Skin Changes Blood Disorders: No Adverse Reaction/Blood Tranf: Yes (HIGH FEVER AND CHILLS) Family Medical History Reviewed Nursing Family Hx COPD Diabetes mellitus No Pertinent Family Hx Adopted, unknown FH Physical Exam Vital Signs Vital Signs - First Documented 08/25/22 18:10 Temp 37.8 Pulse 106 Resp 20 B/P (MAP) 152/83 (106) Capillary Refill : Height, Weight, BMI Height: 5'8.00" Weight: 170lbs. 8.0oz. [id number]; 30.00 BMI Method:Stated General Appearance: No Apparent Distress, WD/WN HEENT: PERRL/EOMI, TMs Normal, Normal ENT Inspection, Pharynx Normal Neck: Normal Inspection, Non Tender, Supple Respiratory: Chest Non Tender, Lungs Clear, Normal Breath Sounds, No Accessory Muscle Use, No Respiratory Distress Cardiovascular: Regular Rate, Rhythm, No Edema, No Gallop, No JVD, No Murmur, Normal Peripheral Pulses Gastrointestinal: No Organomegaly, No Pulsatile Mass, Non Tender, Soft, Other (Patient has feces up and down his legs) Extremity: Normal Capillary Refill, Normal Inspection, Normal Range of Motion, Non Tender, No Calf Tenderness, Other (Tenderness palpation anterior left chest wall. No crepitus or deformity.) Neurologic/Psychiatric: Alert, Oriented x3, No Motor/Sensory Deficits, Normal Mood/Affect Skin: Normal Color, Warm/Dry Lymphatic: No Adenopathy Progress/Results/Core Measures Results/Orders Lab Results Laboratory Tests Test 08/25/22 18:40 08/25/22 20:12 Range/Units White Blood Count 16.8 H 4.3-11.0 10^3/uL Red Blood Count 4.12 L 4.30-5.52 10^6/uL Hemoglobin 13.3 13.3-17.7 g/dL Hematocrit 41 40-54 % Mean Corpuscular Volume 100 H 80-99 fL Mean Corpuscular Hemoglobin 32 25-34 pg Mean Corpuscular Hemoglobin Concent 32 32-36 g/dL Red Cell Distribution Width 13.3 10.0-14.5 % Platelet Count 279 130-400 10^3/uL Mean Platelet Volume 11.0 9.0-12.2 fL Immature Granulocyte % (Auto) 0 % Neutrophils (%) (Auto) 81 H 42-75 % Lymphocytes (%) (Auto) 12 12-44 % Monocytes (%) (Auto) 7 0-12 % Eosinophils (%) (Auto) 0 0-10 % Basophils (%) (Auto) 0 0-10 % Neutrophils # (Auto) 13.6 H 1.8-7.8 10^3/uL Lymphocytes # (Auto) 2.0 1.0-4.0 10^3/uL Monocytes # (Auto) 1.1 H 0.0-1.0 10^3/uL Eosinophils # (Auto) 0.0 0.0-0.3 10^3/uL Basophils # (Auto) 0.1 0.0-0.1 10^3/uL Immature Granulocyte # (Auto) 0.1 0.0-0.1 10^3/uL Neutrophils % (Manual) 82 % Lymphocytes % (Manual) 13 % Monocytes % (Manual) 5 % Platelet Estimate NORMAL Anisocytosis SLIGHT Sodium Level 134 L 135-145 MMOL/L Potassium Level 3.6 3.6-5.0 MMOL/L Chloride Level 102 98-107 MMOL/L Carbon Dioxide Level 19 L 21-32 MMOL/L Anion Gap 13 5-14 MMOL/L Blood Urea Nitrogen 17 7-18 MG/DL Creatinine 0.74 0.60-1.30 MG/DL Estimat Glomerular Filtration Rate 98 BUN/Creatinine Ratio 23 Glucose Level 101 70-105 MG/DL Calcium Level 8.5 8.5-10.1 MG/DL Corrected Calcium 9.1 8.5-10.1 MG/DL Total Bilirubin 0.7 0.1-1.0 MG/DL Aspartate Amino Transf (AST/SGOT) 32 5-34 U/L Alanine Aminotransferase (ALT/SGPT) 20 0-55 U/L Alkaline Phosphatase 129 40-136 U/L Troponin I 0.103 H 0.102 H <0.028 NG/ML Total Protein 6.5 6.4-8.2 GM/DL Albumin 3.2 3.2-4.5 GM/DL My Orders Orders - KEISHANI DO Ekg Tracing (08/25/22 18:14) Troponin I Ernesto (08/25/22 18:17) Chest 1 View, Ap/Pa Only (08/25/22 18:17) Comprehensive Metabolic Panel (08/25/22 18:17) Cbc With Automated Diff (08/25/22 18:17) Aspirin Chewable Tablet (Baby Aspirin Ch (08/25/22 18:30) Ns Iv 1000 Ml (Sodium Chloride 0.9%) (08/25/22 18:30) Manual Differential (08/25/22 18:40) Troponin I Johnston (08/25/22 20:02) Ed Admission (Communication) (08/25/22 21:20) Enoxaparin Injection (Lovenox Injection) (08/25/22 21:30) Metoprolol Succinate (Xl) Tab (Toprol Xl (08/25/22 21:30) Medications Given in ED Current Medications Medications Dose Ordered Sig/Carl Route Start Time Stop Time Status Last Admin Dose Admin Aspirin 324 mg ONCE ONCE PO 08/25/22 18:30 08/25/22 18:31 DC 08/25/22 18:36 324 MG Vital Signs/I&O 08/25/22 18:10 Temp 37.8 Pulse 106 Resp 20 B/P (MAP) 152/83 (106) EKG : Comment Sinus tachycardia 103 bpm. Normal intervals. Normal axis. No ST or T wave abnormalities. No ectopy. No STEMI. Diagnostic Imaging Diagonstic Imaging: Xray Plain Films/CT/US/NM/MRI: chest Comments No acute findings Departure Communication (Admissions) Spoke with Dr. Kirk at 2119. She accepts admission. I will give the patient Lovenox for his elevated troponin. I spoke with Dr. Esteves of cardiology who request 12.5 mg metoprolol x1 right now and I did advise the patient was still having some mild active chest pain with no EKG changes. He states understanding and no further orders at this time. Patient is otherwise hemodynamically stable. He does have some social issues and will likely need sorted out as he is relatively deconditioned and unable to get around at home as he is motorized scooter is broken. He was found in the pile of his own feces in his chair as he is unable to get to the restroom. Impression Primary Impression: Chest pain Qualified Codes: R07.9 - Chest pain, unspecified Additional Impression: Elevated troponin I level Disposition: ADMITTED INPATIENT Condition: Stable Admissions Decision to Admit Reason: Admit from ER (General) Decision to Admit/Date: Aug 25, 2022 Time/Decision to Admit Time: 21:15 Departure-Patient Inst. Referrals: OLEGARIO ROSENTHAL MD (PCP/Family) Primary Care Physician NI VALDES DO Aug 25, 2022 18:18
[2022-08-25] MEDS ORDERED: ASPIRIN 81 MG CHEW (CHILDREN'S ASA) PO ONE (18:30)
[2022-08-25] MEDS ORDERED: NS IV 1000 ML 1,000 ML IV SCH (18:30)
--- NOTE | 2022-08-25 18:40 | Diagnostic Imaging Report ---
INDICATION: Chest pain. COMPARISON: 08/20/2022. FINDINGS: Single frontal radiographic view of the chest was obtained and demonstrates normal cardiac silhouette and pulmonary vasculature. Left-sided multilead pacemaker is noted. Lungs show low inspiratory volumes, but are otherwise clear. There is no large effusion or pneumothorax. Osseous structures show no gross acute abnormalities. IMPRESSION: 1. Low lung volumes, but no evidence of failure or focal infiltrate. Dictated by: Dictated on workstation # [id number]
[2022-08-25 18:58] LABS: BASOPHILS # (AUTO) 0.1 10^3/uL (0.0-0.1); BASOPHILS % (AUTO) 0 % (0-10); EOSINOPHILS % (AUTO) 0 % (0-10); HEMATOCRIT 41 % (40-54); HEMOGLOBIN 13.3 g/dL (13.3-17.7); LYMPHOCYTES % (AUTO) 12 % (12-44); MEAN CORPUSCULAR HEMOGLOBIN 32 pg (25-34); MEAN CORPUSCULAR HGB CONC 32 g/dL (32-36); MEAN CORPUSCULAR VOLUME 100 fL (80-99); MONOCYTES # (AUTO) 1.1 10^3/uL (0.0-1.0); MONOCYTES % (AUTO) 7 % (0-12); NEUTROPHILS # (AUTO) 13.6 10^3/uL (1.8-7.8); NEUTROPHILS % (AUTO) 81 % (42-75); PLATELET COUNT 279 10^3/uL (130-400); WHITE BLOOD COUNT 16.8 10^3/uL (4.3-11.0)
[2022-08-25 19:03] LABS: ALBUMIN 3.2 GM/DL (3.2-4.5); POTASSIUM 3.6 MMOL/L (3.6-5.0)
[2022-08-25 19:05] LABS: CALCIUM 8.5 MG/DL (8.5-10.1)
[2022-08-25 19:06] LABS: TOTAL PROTEIN 6.5 GM/DL (6.4-8.2)
[2022-08-25 19:07] LABS: BILIRUBIN,TOTAL 0.7 MG/DL (0.1-1.0)
[2022-08-25 19:09] LABS: CREATININE SERUM 0.74 MG/DL (0.60-1.30)
[2022-08-25 19:19] LABS: NEUTROPHILS % (MANUAL) 82 %
[2022-08-25 19:20] LABS: ANISOCYTOSIS SLIGHT; LYMPHOCYTES % (MANUAL) 13 %; MONOCYTES % (MANUAL) 5 %; PLATELET ESTIMATE NORMAL
[2022-08-25] MEDS ORDERED: ENOXAPARIN 80 MG/0.8 ML (LOVENOX) SYR SC ONE (21:30)
--- OUTSIDE RECORDS SUMMARY | 2022-08-25 22:09 | XMS REPORT | Clinical Summary ---
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 If you d o not see the information that you expected, contact Release of Information in [facility] Pact Information Management department at [phone] for further assistan ce in locating additional records.[facility] Allergies Comments Active Allergy Reactions Severity [...] directed daily. Active Problems Problem Noted Date MA (myocardial infarction) 04/04/2014 Pacemaker 04/04/2014 Asthma 04/04/2014 S/P bilateral hip replacements 04/04/2014 S/P hardware removal 04/04/2014 S/P cervical spinal fusion 04/04/2014 Hip pain 11/25/2012 Pain in joint, pelvic region and thigh 04/05/2008 Pain in joint, lower leg 04/05/2008 Surgical History Surgery Date Site/Laterality Comments HIP ARTHROPLASTY Bilateral REVISION TOTAL HIP Bilateral; Multiple revisio ns ARTHROPLASTY KNEE SURGERY For patellar fracture FOOT FUSION SPINE SURGERY C spine fusion DEBRIDEMENT R Hip BONE INCISION AND R Hip wound; vac replacemen t (07/16/2006) & vac DRAINAGE change (07/17/2006) ABSCESS DRAINAGE 07/20/2006 R hip wound with cl osure Medical History Medical History Date Comments Pacemaker Obesity Diabetes mellitus (HCC) Blood transfusion reaction Sepsis, unspecified R hip Patellar fracture 1997 HTN (hypertension) Chronic pain Depression Asthma Infection, orth device R hip Gram-negative rods Enterobacter cloacae Postoperative Anemia Transfusion history Social History Date Tobacco Use Types Packs/Day Years Used Current Every Day Smoker Cigarettes 0.5 35 Comments Alcohol Use Standard Drinks/Week Yes 1 (1 standard drink = 0.6 o z pure alcohol) Sex Assigned at Date Recorded Not on file Obstetrics History Last Filed Vital Signs Reading Time Taken Comments Vital Sign 147/78 11/23/2012 8:30 AM 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 Blood Pressure 63 11/23/2012 8:30 AM 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 Pulse 36.8 C (98.3 F) 11/23/2012 8:30 AM 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 Temperature - - Respiratory Rate 97% 11/23/2012 8:30 AM 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 Oxygen Saturation - - Inhaled Oxygen Concentration 86.2 kg (190 lb) 11/19/2012 9:57 AM 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 Weight 172.7 cm (5' 8") 11/19/2012 9:57 AM 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 Height 28.89 11/19/2012 9:57 AM 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 Body Mass Index Plan of Treatment Health Maintenance Due Date Last Done Comments MEDICARE ANNUAL WELLNESS 1950 VISIT COVID-19 VACCINE (#1) 05/18/1951 DTAP/TDAP VACCINES (1 - 1970 Tdap) HEPATITIS C SCREENING 1970 PHYSICAL (COMPREHENSIVE) 1970 EXAM COLORECTAL CANCER 1997 SCREENING SHINGLES RECOMBINANT 2002 VACCINE (1 of 2) ABDOMINAL AORTIC ANEURYSM 2017 SCREENING PNEUMOCOCCAL VACCINE (1 - 2017 PCV) ADVANCED CARE PLANNING 10/26/2021 DISCUSSION AND DOCUMENTATION DEPRESSION SCREENING 10/26/2021 INFLUENZA VACCINE 05/26/2022 Medical Devices Device Identifier Shelf Expiration Date Model / Serial / L ot Implanted Type Area Manufactur er Pacemaker Pacemaker Results Not on filefrom Last 3 Months Insurance Type Payer Benefit Subscriber ID Effective Phone Address Plan / Dates Group Medicare MEDICARE MEDICARE [id number] 1986-P [phone] [address] [place] [address] [place] [id number] 2006- [phone] [address] x MEDICAID Present [address] [place] [address] Advance Directives Date Inactivated Comments Code Status Date Activated 11/23/2012 4:23 PM Full Code 11/19/2012 5:11 PM Provider has discussed Code Status No, discussion no t w/Patient or Family? necessary based on Dx Care Teams Start Date End Date Firebrick And Refractory Tile Repairer Relationship Specialty 01/24/14 Jonathan Beasley MD PCP - [address] [place] [address] 08/26/10 Traci Mota MD [address] [address] 04/04/14 Jaja Lujan MD Psychiatry [address] [facility] [place] [address] 04/09/15 Skylar Stevens, PA-C Surgery, [address] [facility] [address] [place] [address]
[2022-08-25] MEDS ORDERED: diphenhydrAMINE 50 MG/ML INJ (BENADRYL) IVP PRN (23:00)
[2022-08-25] MEDS ORDERED: polyethylene glycoL POWDER 17 GM (MIRALAX) PACK PO PRN (23:00)
[2022-08-25] MEDS ORDERED: PATIENT MAY USE OWN MEDS, ALL PO SCH (23:00)
[2022-08-25] MEDS ORDERED: BISACODYL 10 MG SUPP (DULCOLAX) PR PRN (23:00)
[2022-08-25] MEDS ORDERED: diphenhydrAMINE 25 MG TAB (BENADRYL) PO PRN (23:00)
[2022-08-25] MEDS ORDERED: LIDOCAINE UROJET 2% GEL 10 ML PKG TOP ONE (23:00)
[2022-08-25] MEDS ORDERED: ONDANSETRON 4 MG/2 ML (SDV) Z0FRAN IV PRN (23:00)
[2022-08-25] MEDS ORDERED: NITROGLYCERIN 0.4 MG SL TABS BTL 25'S SL PRN (23:00)
[2022-08-25] MEDS ORDERED: CALCIUM CARBONATE 500 MG (TUMS) TAB.CHEW PO PRN (23:00)
[2022-08-25] MEDS ORDERED: ONDANSETRON 4 MG (ZOFRAN) ORAL DISSOLVE TAB PO PRN (23:00)
[2022-08-25] MEDS ORDERED: ENOXAPARIN 40 MG/0.4 ML (LOVENOX) SYR SC SCH (23:00)
[2022-08-25] MEDS ORDERED: ACETAMINOPHEN 325 MG TABLET PO PRN (23:00)
[2022-08-25] MEDS ORDERED: MILK OF MAGNESIA 400 MG/5 ML 30 ML UDC PO PRN (23:00)
[2022-08-25] MEDS ORDERED: LACTULOSE SYRUP 10GM/15ML (ENULOSE) 30ML UDC PO PRN (23:00)
[2022-08-25] MEDS ORDERED: MELATONIN 3 MG TABLET PO PRN (23:00)
[2022-08-25] MEDS ORDERED: ANTACID SUSP 30 ML UDC (MYLANTA) PO PRN (23:00)
[2022-08-25] MEDS ORDERED: cloNIDine 0.1 MG (CATAPRES) TAB PO PRN (23:00)
[2022-08-25] MEDS ORDERED: LORazepam 0.5 MG (ATIVAN) TABLET PO PRN (23:00)
[2022-08-25] MEDS ORDERED: RT-ALBUTEROL SULF 2.5 MG/3 ML PRE-MIX VIAL INH PRN (23:30)
[2022-08-26] VITALS (23 sets, daily range): BP systolic 131–170; BP diastolic 68–116
[2022-08-26 05:48] LABS: BASOPHILS # (AUTO) 0.1 10^3/uL (0.0-0.1); BASOPHILS % (AUTO) 1 % (0-10); EOSINOPHILS # (AUTO) 0.1 10^3/uL (0.0-0.3); EOSINOPHILS % (AUTO) 1 % (0-10); HEMATOCRIT 37 % (40-54); HEMOGLOBIN 12.4 g/dL (13.3-17.7); LYMPHOCYTES % (AUTO) 20 % (12-44); MEAN CORPUSCULAR HEMOGLOBIN 32 pg (25-34); MEAN CORPUSCULAR HGB CONC 34 g/dL (32-36); MEAN CORPUSCULAR VOLUME 96 fL (80-99); MEAN PLATELET VOLUME 10.7 fL (9.0-12.2); MONOCYTES # (AUTO) 0.8 10^3/uL (0.0-1.0); MONOCYTES % (AUTO) 8 % (0-12); NEUTROPHILS # (AUTO) 7.1 10^3/uL (1.8-7.8); NEUTROPHILS % (AUTO) 70 % (42-75); PLATELET COUNT 237 10^3/uL (130-400); WHITE BLOOD COUNT 10.1 10^3/uL (4.3-11.0)
[2022-08-26 06:01] LABS: ALBUMIN 2.9 GM/DL (3.2-4.5); POTASSIUM 3.8 MMOL/L (3.6-5.0)
[2022-08-26 06:03] LABS: CALCIUM 8.2 MG/DL (8.5-10.1)
[2022-08-26 06:04] LABS: TOTAL PROTEIN 5.9 GM/DL (6.4-8.2)
[2022-08-26 06:06] LABS: BILIRUBIN,TOTAL 0.9 MG/DL (0.1-1.0)
[2022-08-26 06:08] LABS: CREATININE SERUM 0.71 MG/DL (0.60-1.30)
--- NOTE | 2022-08-26 08:23 | History & Physical-Hospitalist ---
History of Present Illness HPI/Chief Complaint CC: Debility with elevated troponin HPI: This is a 71 yr old male known to me from multiple hospital stays. He was found to be in poor social conditions with lying in his diarrhea and urine. His electric wheelchair is not working. He will need to go to a correction. Elevated troponin noted so cardiology has been consulted. Currently he is doing better and he feels like he is on the mend. Source: patient, RN/MD, old records Date Seen 08/26/22 Time Seen by a Provider: 09:00 Attending Physician Uriel Cardona MD PCP Admitting Physician: Kirsten Sanz DO Attending Physician: Kirsten Sanz DO Referring Physician Date of Admission Aug 25, 2022 at 21:21 Home Medications & Allergies Home Medications Reviewed patient Home Medication Reconciliation performed by pharmacy medication reconciliations all source intelligence technician and/or nursing. Patients Allergies have been reviewed. Allergies Allergies Coded Allergies codeine (Verified Allergy, Mild, HIVES...TAKES OXYCODONE & MS CONTIN AT HOME, 03/11/19) streptokinase (Verified Allergy, Unknown, 03/11/19) Past Kxeiqno-Mtfvyx-Wnnzgp Hx Patient Social History Marrital Status: single Employed/Student: unemployed Tobacco Use?: No Smoking Status: Former Smoker Smokeless Tobacco Frequency: Never a User Use of E-Cig and/or Vaping dev: No Substance use?: No Alcohol Use?: No Pt feels they are or have been: No Immunizations Up To Date Date of Influenza Vaccine: Jul 25, 2019 Tetanus Booster (TDap): More Than 5 Years Hepatitis A: No Hepatitis B: No PED Vaccines UTD: No Date of Pneumonia Vaccine: Jul 03, 2018 Seasonal Allergies Seasonal Allergies: No Current Status Advance Directives: No Communicates: Verbally Primary Language: Tajik Preferred Spoken Language: Tajik Is interpretation needed?: No Implanted or Applied Medical D: Implantable cardioverter, Pacemaker Past Medical History Surgeries: Abdominal, Appendectomy, Cardiac, Defibrillator, Joint Replacement, Orthopedic, Pacemaker Asthma, COPD Currently Using CPAP: No Currently Using BIPAP: No Atrial Fibrillation, Chronic Edema/Swelling, Coronary Artery Disease, Congenital Heart Disease, Heart Attack, Hypertension, Irregular Heartbeat Neuropathy Sexually Transmitted Disease: No HIV/AIDS: No Neurogenic Bladder Abdominal Hernia, Chronic Constipation Arthritis, Chronic Back Pain, Fractures Diabetes, Insulin dep Dysphagia Loss of Vision: Denies Hearing Impairment: Hard of Hearing Suicide Attempts, Depression Recent Skin Changes Blood Disorders: No Adverse Reaction/Blood Tranf: Yes (HIGH FEVER AND CHILLS) PMHx: avascular necrosis of multiple joints Asthma Chronic nonhealing hip wounds SurgHx: 11 bilateral hip surgeries, removal of hardware is nonambulatory 3 back surgeries Neck surgery Bilateral carpal tunnel release Bilateral cubital tunnel release Family Medical History Reviewed Nursing Family Hx COPD Diabetes mellitus No Pertinent Family Hx Adopted, unknown FH Review of Systems Constitutional: see HPI, malaise, weakness Respiratory: dyspnea on exertion Psychiatric/Neurological: Depressed All Other Systems Reviewed Negative Unless Noted: Yes Physical Exam Physical Exam Vital Signs Vital Signs - First Documented 08/25/22 08/25/22 08/25/22 08/25/22 18:10 21:53 22:30 23:24 Temp 37.8 Pulse 106 Resp 20 B/P (MAP) 152/83 (106) Pulse Ox 98 O2 Delivery Nasal Cannula O2 Flow Rate 2.00 FiO2 21 Capillary Refill : Height, Weight, BMI Height: 5'8.00" Weight: 170lbs. 8.0oz. 77.860532kw; 29.79 BMI Method:Stated General Appearance: No Apparent Distress, Chronically ill Eyes: Right Eye Normal Inspection, Right Eye PERRL HEENT: PERRL/EOMI, Normal ENT Inspection, Pharynx Normal, Moist Mucous Membranes Neck: Full Range of Motion, Normal Inspection, Non Tender Respiratory: Chest Non Tender, Lungs Clear, Normal Breath Sounds, No Accessory Muscle Use, No Respiratory Distress Cardiovascular: Regular Rate, Rhythm, No Edema, No Gallop, No JVD, No Murmur, Normal Peripheral Pulses Gastrointestinal: Normal Bowel Sounds, No Organomegaly, No Pulsatile Mass, Non Tender, Soft Back: Normal Inspection, No CVA Tenderness, No Vertebral Tenderness Extremity: Normal Capillary Refill, Normal Inspection, Normal Range of Motion (Except legs due to bilateral hip dysfunction), Non Tender, No Calf Tenderness, No Pedal Edema Neurologic/Psychiatric: Alert, Oriented x3, No Motor/Sensory Deficits, Normal Mood/Affect Skin: Normal Color, Warm/Dry Lymphatic: No Adenopathy Results Results/Procedures Labs Laboratory Tests 08/25/22 18:40 08/26/22 05:42 08/27/22 05:06 Patient resulted labs reviewed. Assessment/Plan Admission Diagnosis Assessment: NSTEMI Unable to care for self at home Bilateral hip dysfunction status post multiple surgeries remains unable to ambulate Depression COPD Former smoker Plan: Cardiology appreciated [employer] Liner closely Admission Status: Inpatient Order (span 2 midnights) Reason for Inpatient Admission: nstemi Diagnosis/Problems Diagnosis/Problems (1) Elevated troponin I level Status: Acute (2) Diarrhea Status: Acute (3) Skin breakdown Status: Acute (4) Unable to care for self Clinical Quality Measures AMI/AHF: ASA po Prior to arrival: KIRSTEN Cordero DO Aug 26, 2022 08:23
[2022-08-26] MEDS ORDERED: LIDOCAINE 1% INJ 30 ML (XYLOCAINE) VIAL ONE (08:43)
[2022-08-26] MEDS ORDERED: HEParin (CATH LAB) 2,000 ML IV ONE (08:43)
--- NOTE | 2022-08-26 08:51 | Physical Therapy Evaluation ---
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 6-Cmlfsqczsv-zjvyonj completes the activity by him/herself with no assistance from a helper. 5-Set-up or Clean-up Assistance-helper sets up or cleans up; patient completes activity. Hannibal assists only prior to or following the activity. 4-Supervision or Touching Assistance-helper provides verbal cues and/or touching/steadying and/or contact guard assistance as patient completes activity. Assistance may be provided throughout the activity or intermittently. 3-Partial/Moderate Assistance-helper does LESS THAN HALF the effort. Hannibal lifts, holds or supports trunk or limbs, but provides less than half the effort. 2-Substantial/Maximal Assistance-helper does MORE THAN HALF the effort. Hannibal lifts or holds trunk or limbs and provides more than half the effort. 5-Ezeemjnjj-rfvsdg does ALL the effort. Patient does none of the effort to complete the activity. Or, the assistance of 2 or more helpers is required for the patient to complete the activity. If activity was not attempted, code reason: 7-Patient Refused. 9-Not Applicable-not attempted and the patient did not perform the activity before the current illness, exacerbation or injury. 10-Not Attempted due to Environmental Limitations-(lack of equipment, weather restraints, etc.). 88-Not Attempted due to Medical Conditions or Safety Concerns. Transfers (B,C,W/C): 3 (assist of caregiver) Gait: 9 Stairs: 9 Indoor Mobility (Ambulation): Not Applicalbe Stairs: Not Applicalbe Prior Devices Use: Motorized scooter (which is broken) patient is non ambulatory PLOF PT Evaluation-Current Subjective Patient agrees to PT. Incontinent BM. Pain Numeric Pain Scale: 0-No Pain Location: No Pain Reported Objective Patient Orientation: Normal For Age Attachments: Oxygen ROM/Strength ROM Lower Extremities NT/proximal femurs removed due to avascular necrosis Strength Lower Extremities NT/NA Integumentary/Posture Integumentary refer to nursing notes Bowel Incontinence: Yes Bladder Incontinence: Yes Neuromuscular (Tone, Coordination, Reflexes) upper body grossly intact Sensory Vision: Functional Hearing: Functional Sensation Right Lower Extremit: Impaired Sensation Left Lower Extremity: Impaired Transfers Sit to Lying (QC): 2 Lying to Sitting/Side of Bed(Q: 2 Sit to Stand (QC): 9 Chair/Pxx-pc-Kmuxc Xfer(QC): 88 Toilet Transfer (QC): 88 patient will be a Tay Lift transfer due to inability to use bilateral LE's Gait Does the Patient Walk?: No and Walking Goal NOT indicated Walk 10 feet (QC): 9 Walk 50 ft with 2 Turns(QC): 9 Walk 150 ft (QC): 9 Balance Sitting Static: Normal Sitting Dynamic: Normal Assessment/Needs Patient will be seen short term by skilled PT to address bed mobility. Patient will be a Tay lift for patient and staff safety due to inability to weight bear bilateral LE's. Rehab Potential: Guarded PT Detention Goals Share Holder Goals PT Share Holder Goals Time Frame: Sep 06, 2022 Roll Left & Right (QC): 4 Sit to Lying (QC): 4 Lying-Sitting on Side/Bed(QC): 4 PT Plan Problem List Problem List: Activity Tolerance, Functional Strength, Safety, Balance, Transfer, Bed Mobility Treatment/Plan Treatment Plan: Continue Plan of Care Treatment Plan: Bed Mobility, Education, Functional Activity Ever, Functional Strength, Safety, Therapeutic Exercise Treatment Duration: Sep 06, 2022 Frequency: 6 times per week Estimated Hrs Per Day: .25 hour per day Patient and/or Family Agrees t: Yes Discharge Recommendations Therapy Discharge Recommendati: Other, See Comments ([facility] facility due to inability to care for self) Time Time In: 725 Time Out: 742 Total Billed Treatment Time: 17 Total Billed Treatment 1 visit EVMod 17 min DAMIR VILLALOBOS PT Aug 26, 2022 08:51
--- NOTE | 2022-08-26 08:53 | Consultation-Cardiology ---
HPI-Cardiology Cardiology Consultation Date of Consultation 08/26/22 Date of Admission Time Seen by Provider: 08:48 Indication: Chest pain HPI 71 years old gentleman with history of dual-chamber pacemaker, hypertension hyperlipidemia, moderate coronary artery disease per cardiac catheterization 2014, had a normal stress test in [address] Houser. Patient started to have waxing and waning chest pain for the past few weeks, yesterday evening he had severe dull achiness in the retrosternal area persistent, called 911 and came into the emergency room. Did not respond to nitroglycerin but felt better with morphine. Currently having mild active chest pain. No shortness of breath. No palpitation. No syncope or near syncopal episode, had mild elevation in troponin level. 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 Smoking Status: Former Smoker Type Used: Cigarettes 2nd Hand Smoke Exposure: Yes Recent Hopitalizations: No Have you traveled recently?: No Alcohol Use?: No Immunizations Up To Date Tetanus Booster (TDap): Less than 5yrs Date of Pneumonia Vaccine: Jul 03, 2018 Date of Influenza Vaccine: Jul 25, 2019 Past Medical History Discussed below Family Medical History Significant Family History: No Pertinent Family Hx Family History: COPD Diabetes mellitus Review of Systems-General Review of Systems Constitutional: no symptoms reported EENTM: see HPI, no symptoms reported Respiratory: no symptoms reported, see HPI Cardiovascular: see HPI, chest pain Gastrointestinal: no symptoms reported, see HPI Genitourinary: no symptoms reported, see HPI Musculoskeletal: no symptoms reported Skin: no symptoms reported Psychiatric/Neurological: No Symptoms Reported Reviewed Test Results Reviewed Test Results Lab Laboratory Tests Test 08/25/22 18:40 08/25/22 20:12 08/26/22 05:42 Range/Units White Blood Count 16.8 H 10.1 4.3-11.0 10^3/uL Red Blood Count 4.12 L 3.84 L 4.30-5.52 10^6/uL Hemoglobin 13.3 12.4 L 13.3-17.7 g/dL Hematocrit 41 37 L 40-54 % Mean Corpuscular Volume 100 H 96 80-99 fL Mean Corpuscular Hemoglobin 32 32 25-34 pg Mean Corpuscular Hemoglobin Concent 32 34 32-36 g/dL Red Cell Distribution Width 13.3 13.2 10.0-14.5 % Platelet Count 279 237 130-400 10^3/uL Mean Platelet Volume 11.0 10.7 9.0-12.2 fL Immature Granulocyte % (Auto) 0 0 % Neutrophils (%) (Auto) 81 H 70 42-75 % Lymphocytes (%) (Auto) 12 20 12-44 % Monocytes (%) (Auto) 7 8 0-12 % Eosinophils (%) (Auto) 0 1 0-10 % Basophils (%) (Auto) 0 1 0-10 % Neutrophils # (Auto) 13.6 H 7.1 1.8-7.8 10^3/uL Lymphocytes # (Auto) 2.0 2.0 1.0-4.0 10^3/uL Monocytes # (Auto) 1.1 H 0.8 0.0-1.0 10^3/uL Eosinophils # (Auto) 0.0 0.1 0.0-0.3 10^3/uL Basophils # (Auto) 0.1 0.1 0.0-0.1 10^3/uL Immature Granulocyte # (Auto) 0.1 0.0 0.0-0.1 10^3/uL Neutrophils % (Manual) 82 % Lymphocytes % (Manual) 13 % Monocytes % (Manual) 5 % Platelet Estimate NORMAL Anisocytosis SLIGHT Sodium Level 134 L 140 135-145 MMOL/L Potassium Level 3.6 3.8 3.6-5.0 MMOL/L Chloride Level 102 106 98-107 MMOL/L Carbon Dioxide Level 19 L 23 21-32 MMOL/L Anion Gap 13 11 5-14 MMOL/L Blood Urea Nitrogen 17 15 7-18 MG/DL Creatinine 0.74 0.71 0.60-1.30 MG/DL Estimat Glomerular Filtration Rate 98 99 BUN/Creatinine Ratio 23 21 Glucose Level 101 100 70-105 MG/DL Calcium Level 8.5 8.2 L 8.5-10.1 MG/DL Corrected Calcium 9.1 9.1 8.5-10.1 MG/DL Total Bilirubin 0.7 0.9 0.1-1.0 MG/DL Aspartate Amino Transf (AST/SGOT) 32 28 5-34 U/L Alanine Aminotransferase (ALT/SGPT) 20 18 0-55 U/L Alkaline Phosphatase 129 112 40-136 U/L Troponin I 0.103 H 0.102 H 0.117 H <0.028 NG/ML Total Protein 6.5 5.9 L 6.4-8.2 GM/DL Albumin 3.2 2.9 L 3.2-4.5 GM/DL Triglycerides Level 82 <150 MG/DL Cholesterol Level 169 < 200 MG/DL LDL Cholesterol Direct 75 1-129 MG/DL VLDL Cholesterol 16 5-40 MG/DL HDL Cholesterol 75 H 40-60 MG/DL Physical Exam Physical Exam Vital Signs Vital Signs - First Documented 08/25/22 08/25/22 08/25/22 08/25/22 18:10 21:53 22:30 23:24 Temp 37.8 Pulse 106 Resp 20 B/P (MAP) 152/83 (106) Pulse Ox 98 O2 Delivery Nasal Cannula O2 Flow Rate 2.00 FiO2 21 Capillary Refill : Height, Weight, BMI Height: 5'8.00" Weight: 170lbs. 8.0oz. 77.319700gi; 29.79 BMI Method:Stated General Appearance: No Apparent Distress, WD/WN Eyes: Bilateral Eye Normal Inspection, Bilateral Eye PERRL, Bilateral Eye EOMI HEENT: PERRL/EOMI, TMs Normal, Normal ENT Inspection, Pharynx Normal Neck: Normal Inspection, Non Tender, Supple Respiratory: Chest Non Tender, Lungs Clear, Normal Breath Sounds, No Accessory Muscle Use, No Respiratory Distress Cardiovascular: Regular Rate, Rhythm, No Edema, No Gallop, No JVD, No Murmur, Normal Peripheral Pulses Gastrointestinal: No Organomegaly, No Pulsatile Mass, Non Tender, Soft, Other (Patient has feces up and down his legs) Back: Normal Inspection, No CVA Tenderness, No Vertebral Tenderness Extremity: Normal Capillary Refill, Normal Inspection, Normal Range of Motion, Non Tender, No Calf Tenderness, Other (Tenderness palpation anterior left chest wall. No crepitus or deformity.) Neurologic/Psychiatric: Alert, Oriented x3, No Motor/Sensory Deficits, Normal Mood/Affect Skin: Normal Color, Warm/Dry Lymphatic: No Adenopathy A/P-Cardiology Admission Diagnosis Chest pain Non-ST elevation myocardial infarction Coronary artery disease Hypertension Assessment/Plan Chest pain, still having active chest pain, had elevation in troponin, discussed the management plan patient will need urgent cardiac catheterization. Coronary artery disease, cardiac catheterization carried out in 2012 and 2014 with diffuse atherosclerotic plaques. Nonobstructive disease. Patient had a stress test done by Dr. Houser in July 2020 with no ischemia or infarction with a EF normal 2D echo done in May 2018 with normal LV function Hypertension, restart home medication monitor blood pressure Hyperlipidemia, monitor lipids History of dual-chamber pacemaker due to sinus node dysfunction, he has history of sinus pause for 3.2 second. Last interrogation was done on August 16, 2022 with good sensing and capture activity. History of avascular necrosis of the hip, underwent multiple hip surgeries in the past and hip replacements. History of gastroesophageal reflux disease, COPD. Polysubstance use for pain control Previous history of tobaccoism Clinical Quality Measures AMI/AHF: ASA po Prior to arrival: SKYLA Hendricks MD Aug 26, 2022 08:53
[2022-08-26] MEDS ORDERED: fentaNYL INJ 100 MCG/2 ML AMP ONE (08:58)
[2022-08-26] MEDS ORDERED: MIDAZOLAM 2 MG/2 ML (VERSED) VIAL ONE (08:58)
[2022-08-26] MEDS ORDERED: NS IV 1000 ML 1,000 ML ONE (08:58)
[2022-08-26] MEDS: ENOXAPARIN 80 MG/0.8 ML (LOVENOX) SYR SC SCH ×2 (09:00→20:03)
--- NOTE | 2022-08-26 09:32 | Occ Therapy Progress Note ---
Therapy Progress Note OT orders received and chart reviewed. Pt currently out of room for heart cath. Per RN, patient will be on bed rest for 4 hours once he returns to room. OT will attempt again at a later time if scheduling allows. Bonnie Brewster OT Aug 26, 2022 09:32
[2022-08-26] MEDS ORDERED: HEParin 1000 UNIT/ML (10ML VIAL) FOR BOLUS ONE (09:38)
[2022-08-26] MEDS ORDERED: PATIENT MAY USE OWN MEDS, ALL PO SCH (10:15)
[2022-08-26] MEDS ORDERED: NS IV 1000 ML 1,000 ML IV SCH (10:15)
[2022-08-26] MEDS: SENNOSIDES 8.6 MG (SENOKOT) TAB PO SCH ×2 (11:11→20:03)
[2022-08-26] MEDS: DOCUSATE SODIUM 100 MG (COLACE) CAP PO SCH ×2 (11:11→20:03)
[2022-08-26] MEDS: morphine INJ 4 MG/ML 1 ML (VIAL/SYRINGE) IV PRN ×2 (11:27→22:20)
--- NOTE | 2022-08-26 13:13 | CARDIAC CATHETERIZATION ---
DATE OF SERVICE: 08/26/2022 CARDIAC CATHETERIZATION REPORT The patient is a 71-year-old gentleman who presented with symptoms suggestive of unstable angina. Troponin was minimally elevated. Cardiac catheterization was carried out after having obtained an informed consent. DESCRIPTION OF PROCEDURE: He was brought to the cardiac catheterization laboratory. Right groin was prepared and draped in the usual sterile fashion. Lidocaine 1% was used for local anesthesia. Modified Seldinger technique was used to advance a 5-Albanian sheath in right femoral artery, 5-Albanian JL4 catheter for left coronary angiography, 5-Albanian JR4 catheter for right coronary angiography, 5-Albanian pigtail catheter was used for left heart catheterization and left ventricular angiography. Subsequently, we carried out IFR measurement in the left circumflex artery and it is described below. IFR MEASUREMENT IN THE LEFT CIRCUMFLEX ARTERY: We advanced a 6-Albanian JL4 guide catheter to engage the left coronary artery and advanced a pressure wire across the lesion in the mid left circumflex artery and the tip was placed in the distal vessel. IFR was measured at 0.96, indicating that the lesion was hemodynamically nonsignificant. The wire was removed. Angiography confirmed that there was no change in coronary status. The catheter was removed. Mynx was used to achieve hemostasis following sheath removal. Angiography of the right femoral artery had been carried out through the sheath prior to deployment of Mynx. HEMODYNAMICS: Left ventricular end-diastolic pressure following coronary angiography was 12 mmHg. There was no significant pressure gradient on pullback across the aortic valve. Ascending aortic pressure was 131/75 with a mean of 97 mmHg. CORONARY ANGIOGRAPHY: Coronary calcification is seen. Left main coronary artery is free of significant disease. Left anterior descending artery does not exhibit significant disease. Left circumflex artery has 30% to 40% mid vessel stenosis at the site of the origin of a large obtuse marginal branch. IFR across this lesion is 0.96. This indicates that the lesion is hemodynamically nonsignificant. Right coronary artery is codominant with the left circumflex artery. It does not exhibit significant disease. LEFT VENTRICULAR ANGIOGRAPHY: Left ventricular angiography was carried out in the right anterior oblique projection. Global left ventricular systolic function is normal. No regional wall motion abnormalities seen. Left ventricular ejection fraction is approximately 60%. CONCLUSIONS: 1. Mild to moderate coronary artery disease, nonobstructive. 2. Normal global left ventricular systolic function with ejection fraction approximately 60%. 3. Normal left ventricular end-diastolic pressure. DISCUSSION AND RECOMMENDATIONS: Based on results of the study, it appears appropriate to continue a conservative approach. Job ID: [id number] DocumentID: [id number] Dictated Date: 08/26/2022 10:14:13 Lunch Truck Driver Date: 08/26/2022 13:12:38 Dictated By: JILLIAN LOPEZ MD, MA, FACP, FACC,
[2022-08-26] MEDS: ASPIRIN E.C. 81 MG (ECOTRIN) TAB PO SCH (15:51)
[2022-08-26] MEDS: RT-ALBUTEROL/IPRATROPIUM 3 ML (DUONEB) VIAL INH SCH ×2 (19:21→21:16)
[2022-08-27] VITALS: BP 135/72
[2022-08-27] MEDS: RT-ALBUTEROL/IPRATROPIUM 3 ML (DUONEB) VIAL INH SCH ×6 (02:24→22:18)
[2022-08-27 03:56] VITALS: BP 136/81
[2022-08-27] MEDS: morphine INJ 4 MG/ML 1 ML (VIAL/SYRINGE) IV PRN (04:00)
[2022-08-27] MEDS ORDERED: IBUPROFEN TABLET 200 MG TAB PO PRN (05:00)
[2022-08-27] MEDS ORDERED: FUROSEMIDE 40 MG (LASIX) TAB PO PRN (05:00)
[2022-08-27] MEDS ORDERED: RT-ALBUTEROL SULF 2.5 MG/3 ML PRE-MIX VIAL INH PRN (05:00)
[2022-08-27] MEDS ORDERED: MENTHOL/ZINC OXIDE (CALMOSEPTINE) 113 GM TUBE TP PRN (05:00)
[2022-08-27 05:16] LABS: BASOPHILS # (AUTO) 0.1 10^3/uL (0.0-0.1); BASOPHILS % (AUTO) 1 % (0-10); EOSINOPHILS # (AUTO) 0.2 10^3/uL (0.0-0.3); EOSINOPHILS % (AUTO) 2 % (0-10); HEMATOCRIT 32 % (40-54); HEMOGLOBIN 10.3 g/dL (13.3-17.7); LYMPHOCYTES # (AUTO) 2.8 10^3/uL (1.0-4.0); LYMPHOCYTES % (AUTO) 32 % (12-44); MEAN CORPUSCULAR HEMOGLOBIN 32 pg (25-34); MEAN CORPUSCULAR HGB CONC 32 g/dL (32-36); MEAN CORPUSCULAR VOLUME 99 fL (80-99); MEAN PLATELET VOLUME 11.1 fL (9.0-12.2); MONOCYTES # (AUTO) 0.8 10^3/uL (0.0-1.0); MONOCYTES % (AUTO) 9 % (0-12); NEUTROPHILS # (AUTO) 4.9 10^3/uL (1.8-7.8); NEUTROPHILS % (AUTO) 55 % (42-75); PLATELET COUNT 183 10^3/uL (130-400); WHITE BLOOD COUNT 8.9 10^3/uL (4.3-11.0)
[2022-08-27 05:38] LABS: ALBUMIN 2.6 GM/DL (3.2-4.5); BILIRUBIN,TOTAL 0.7 MG/DL (0.1-1.0); CALCIUM 7.8 MG/DL (8.5-10.1); CREATININE SERUM 0.75 MG/DL (0.60-1.30); POTASSIUM 3.4 MMOL/L (3.6-5.0); TOTAL PROTEIN 5.1 GM/DL (6.4-8.2)
[2022-08-27 08:00] VITALS: BP 140/78
[2022-08-27] MEDS: ASPIRIN E.C. 81 MG (ECOTRIN) TAB PO SCH (08:19)
[2022-08-27] MEDS: ENOXAPARIN 80 MG/0.8 ML (LOVENOX) SYR SC SCH ×2 (08:19→21:57)
[2022-08-27] MEDS: SENNOSIDES 8.6 MG (SENOKOT) TAB PO SCH ×2 (08:20→22:08)
[2022-08-27] MEDS: GABAPENTIN 300 MG (NEURONTIN) CAP PO SCH ×3 (08:20→21:58)
[2022-08-27] MEDS: DOCUSATE SODIUM 100 MG (COLACE) CAP PO SCH ×2 (08:20→22:07)
--- NOTE | 2022-08-27 09:44 | Cardiology Progress Note ---
Subjective Date Seen by Provider: Aug 27, 2022 Time Seen by Provider: 09:39 Subjective/Events-last exam Patient was seen at bedside, laying down comfortably, feeling better. No new complaint. Review of Systems General: No Chills, No Night Sweats, No Fatigue, No Malaise, No Appetite, No Other HEENT: No Head Aches, No Visual Changes, No Eye Pain, No Ear Pain, No Dysph yarely, No Sinus Congestion, No Post Nasal Drip, No Sore Throat, No Other Pulmonary: No Dyspnea, No Cough, No Pleuritic Chest Pain, No Other Cardiovascular: No: Chest Pain, Palpitations, Orthopnea, Paroxysmal Noc. Dyspnea, Edema, Lt Headedness, Other Objective-Cardiology Exam Last Set of Vital Signs Vital Signs 08/26/22 08/27/22 08/27/22 14:10 03:56 08:00 Temp 37.2 Pulse 73 Resp 14 B/P (MAP) 140/78 (98) Pulse Ox 97 O2 Delivery Nasal Cannula O2 Flow Rate 2.00 FiO2 28 I&O Intake and Output 08/27/22 00:00 Intake Total 1890 ml Output Total 1550 ml Balance 340 ml Intake Oral 890 ml IV Total 1000 ml Output Urine Total 1550 ml # Voids 4 General: Alert, Oriented X3, Cooperative HEENT: Atraumatic, PERRLA Neck: Supple, No JVD, No Thyromegaly Lungs: Clear to Auscultation, Normal Air Movement Heart: Regular Rate, Normal S1, Normal S2, No Murmurs Abdomen: Normal Bowel Sounds, Soft, No Tenderness, No Hepatosplenomegaly, No Masses Extremities: No Clubbing, No Cyanosis, No Edema, Normal Pulses, No Tenderness/Swelling Skin: No Rashes, No Breakdown, No Significant Lesion Neuro: Normal Gait, Normal Speech, Strength at 5/5 X4 Ext, Normal Tone, Sensation Intact Psych/Mental Status: Mental Status NL, Mood NL Results Lab Laboratory Tests 08/27/22 05:06 A/P-Cardiology Admission Diagnosis Chest pain Non-ST elevation myocardial infarction Coronary artery disease Hypertension Assessment/Plan Chest pain, nonspecific etiology Patient had history of recurrent pain with difficult control. Cardiac catheterization showed no significant obstructive disease. Coronary artery disease, cardiac catheterization carried out in 2012 and 2014 with diffuse atherosclerotic plaques. Nonobstructive disease. Mild elevation in troponin, borderline. Cardiac catheterization was carried out on August 26, 2022 with nonobstructive coronary artery disease. iFR was done through the circumflex artery. Patient does not have myocardial infarction Patient had a stress test done by Dr. Houser in July 2020 with no ischemia or infarction with a EF normal 2D echo done on August 26, 2022 with normal LV size and function. Ejection fraction 55 to 60%, grade 2 diastolic dysfunction, biatrial enlargement, PA pressure 15 mmHg Hypertension, continue to monitor blood pressure Hyperlipidemia, monitor lipids History of dual-chamber pacemaker due to sinus node dysfunction, he has history of sinus pause for 3.2 second. Last interrogation was done on August 16, 2022 with good sensing and capture activity. History of avascular necrosis of the hip, underwent multiple hip surgeries in the past and hip replacements. History of gastroesophageal reflux disease, COPD. Polysubstance use for pain control Previous history of tobaccoism SKYLA SQUIRES MD Aug 27, 2022 09:44
--- NOTE | 2022-08-27 10:44 | Occupational Therapy Eval ---
OT Evaluation-General/PLF Medical Diagnosis Admission Date Aug 25, 2022 at 21:21 Medical Diagnosis: chest pain Onset Date: Aug 25, 2022 Therapy Diagnosis Therapy Diagnosis: Reduced ADL status Height/Weight Height (Feet): 5 Height (Inches): 8.00 Weight (Pounds): 170 Weight (Ounces): 8.0 Precautions Precautions/Isolations: Fall Prevention, Standard Precautions, Pressure Ulcer Referral Physician: Yvon Referral Reason: Evaluation/Treatment Medical History Pertinent Medical History: Atrial Fib, Arthritis, CAD, COPD, DM, Heart Failure, HTN, Neuropathy Current History Pt came into ER with c/o of chest pain and SOB. He was also soiled/had been soiled for quite a while upon arrival to hospital. Pt lives in an apartment alone and has a worker come in M-F 12-4:30. This home health/career and technology education teacher helps with all IADLs and per pt helps some with ADLs. Pt reports that he was doing all ADLs himself. Due to coming into hospital multiple times in the last couple months for soiled incontinence and sores from incontinence, it is known that his hygiene/thoroughness is not well taken care of by himself/career and technology education teacher. His power chair has been broken for 3 months, so he has only been using a manual w/c, which he states having increased difficulty with, due to using a lot of his arm strength. Pt appears unaware of severity of his condition/his lack of taking care of himself at home. Reviewed History: Yes Social History Home: Apartment Current Living Status: Alone Entry Into Home: Level Entry Steps Into Home: 0 Steps Inside Home: 0 ADL-Prior Level of Function SCALE: Activities may be completed with or without assistive devices. 2-Pfrygqwbaa-lgakhdp completes the activity by him/herself with no assistance from a helper. 5-Set-up or Clean-up Assistance-helper sets up or cleans up; patient completes activity. [place] assists only prior to or following the activity. 4-Supervision or Touching Assistance-helper provides verbal cues and/or touching/steadying and/or contact guard assistance as patient completes activity. Assistance may be provided throughout the activity or intermittently. 3-Partial/Moderate Assistance-helper does LESS THAN HALF the effort. [place] lifts, holds or supports trunk or limbs, but provides less than half the effort. 2-Substantial/Maximal Assistance-helper does MORE THAN HALF the effort. [place] lifts or holds trunk or limbs and provides more than half the effort. 9-Auhgbzllu-szetua does ALL the effort. Patient does none of the effort to complete the activity. Or, the assistance of 2 or more helpers is required for the patient to complete the activity. If activity was not attempted, code reason: 7-Patient Refused. 9-Not Applicable-not attempted and the patient did not perform the activity before the current illness, exacerbation or injury. 10-Not Attempted due to Environmental Limitations-(lack of equipment, weather restraints, etc.). 88-Not Attempted due to Medical Conditions or Safety Concerns. Self Care: Needed Some Help Functional Cognition: Needed Some Help DME/Equipment: Bath Chair, Grab Bars, Shower Drive Self: Yes OT Current Status Subjective Pt laying in bed upon arrival. He agrees to a therapy eval. Appearance Pt is left laying down with all needs within reach. Mental Status/Objective Attachments: IV, Oxygen (2 L- pt states he uses 4 L at home), Telemetry Current Glasses/Contacts: No Hearing Aids: No Dentures/Partials: No Hand Dominance: Right Upper Extremity ROM ~150- degrees at shoulders- pt states this is norm Upper Extremity Strength Pharmacy Informatics Specialist strength: minimally impaired 3-/5 at shoulders ADL-Treatment Upper Body Dressing (QC): 5 (per clinical judgement) Lower Body Dressing (QC): 4 (per clinical judgement) On/Off Footwear (QC): 5 Pt able to don socks with set up assist, due to good flexibility in hips and s hortened legs. Bed mobility: supervision. Sitting balance: fair. Dynamic sitting balance: fair-poor. Pt is unaware of importance of thoroughness with hygiene and assist need. Pt would benefit from continued skilled OT services to address ADLs and education about cleanliness. Education OT Patient Education: Correct positioning, Energy conservation, Progress toward Goal/Update tx plan, Purpose of tx/functional activities, Rehab process, Safety issues Teaching Recipient: Patient Teaching Methods: Discussion Response to Teaching: Verbalize Understanding, Return Demonstration, Reinforcement Needed OT Mcfp Goals Biofuels Research Scientist Goals Time Frame: Sep 19, 2022 Oral Hygiene (QC): 5 Toileting Hygiene (QC): 4 Shower/Bathe Self (QC): 4 Additional Goals: 1-Demonstrate ADL Tasks, 2-Verbalize Understanding, 3- ImproveStrength/Ever 1=Demonstrate adherence to instructed precautions during ADL tasks. 2=Patient will verbalize/demonstrate understanding of assistive devices/modifications for ADL. 3=Patient will improve strength/tolerance for activity to enable patient to perform ADL's. OT Education/Plan Problem List/Assessment Assessment: Decreased Activ Tolerance, Decreased Safety Aware, Decreased UE Strength, Impaired Cognition, Impaired Coordination, Impaired Funct Balance, Impaired I ADL's, Impaired Self-Care Skills, Restricted Funct UE ROM Discharge Recommendations Plan/Recommendations: Continue POC Therapy Discharge Recommendati: Assisted Living (Pt has shown, from repeated admissions for hygiene concerns at home, that he is unable to reaturn home and complete ADLs independently and appropriately), Bath Aide Treatment Plan/Plan of Care Treatment,Training & Education: Yes Patient would benefit from OT for education, treatment and training to promote independence in ADL's, mobility, safety and/or upper extremity function for ADL's. Plan of Care: ADL Retraining, Caregiver Training, Functional Mobility, Group Exercise/Act as Ind, UE Funct Exercise/Act, W/C Management Training Treatment Duration: Sep 19, 2022 Frequency: 3 times per week (3-5 x/week) Estimated Hrs Per Day: .25 hour per day Rehab Potential: Guarded Time Start Time: 10:16 Stop Time: 10:30 Total Time Billed (hr/min): 14 Billed Treatment Time 1 visit Bonnie Pemberton OT Aug 27, 2022 10:44
--- NOTE | 2022-08-27 10:47 | Physical Therapy Daily Note ---
PT Daily Note-Current Subjective pt. in bed, declined Rx at this time, this OIL OPERATOR invited pt to sit up in recliner via [employer] [facility],. Pt declined stating he has some important phone calls to make at this time and he would like to maybe get up this afternoon Pain Location: No Pain Reported Section J - Health Conditions 1. Rarely or not at all 2. Occasionally 3. Frequently 4. Almost constantly 8. Unable to answer Pain Effect on Sleep: 1 Pain Interference with Therapy: 1 Pain Interference w/Day-to-Day: 1 Transfers SCALE: Activities may be completed with or without assistive devices. 5-Okjomrajml-dzrhbnf completes the activity by him/herself with no assistance from a helper. 5-Set-up or Clean-up Assistance-helper sets up or cleans up; patient completes activity. [place] assists only prior to or following the activity. 4-Supervision or Touching Assistance-helper provides verbal cues and/or touching/steadying and/or contact guard assistance as patient completes a ctivity. Assistance may be provided throughout the activity or intermittently. 3-Partial/Moderate Assistance-helper does LESS THAN HALF the effort. [place] lifts, holds or supports trunk or limbs, but provides less than half the effort. 2-Substantial/Maximal Assistance-helper does MORE THAN HALF the effort. [place] lifts or holds trunk or limbs and provides more than half the effort. 0-Rslauuibm-lshdbe does ALL the effort. Patient does none of the effort to complete the activity. Or, the assistance of 2 or more helpers is required for the patient to complete the activity. If activity was not attempted, code reason: 7-Patient Refused. 9-Not Applicable-not attempted and the patient did not perform the activity before the current illness, exacerbation or injury. 10-Not Attempted due to Environmental Limitations-(lack of equipment, weather restraints, etc.). 88-Not Attempted due to Medical Conditions or Safety Concerns. Assessment Current Status: Refused Treatment PT Chemical Production Engineer Goals [facility] Goals PT Chemical Production Engineer Goals Time Frame: Sep 06, 2022 Roll Left & Right (QC): 4 Sit to Lying (QC): 4 Lying-Sitting on Side/Bed(QC): 4 PT Plan Treatment/Plan Treatment Plan: Continue Plan of Care Treatment Plan: Bed Mobility, Education, Functional Activity Ever, Functional Strength, Safety, Therapeutic Exercise Treatment Duration: Sep 06, 2022 Frequency: 6 times per week Estimated Hrs Per Day: .25 hour per day Patient and/or Family Agrees t: Yes Time Time In: 1030 Time Out: 1035 Total Billed Treatment Time: 0 Total Billed Treatment 1,no RX no CHG PATRICK PARADA OIL OPERATOR Aug 27, 2022 10:47
[2022-08-27] MEDS ORDERED: RT-ALBUTEROL HFA 8.5 GM INHALER IH PRN (11:00)
--- NOTE | 2022-08-27 11:18 | Progress Note - Hospitalist ---
SHALA SOTO 08/27/22 1118: Subjective HPI/CC On Admission Date Seen by Provider: Aug 27, 2022 Time Seen by Provider: 07:40 CC: Debility with elevated troponin HPI: This is a 71 yr old male known to me from multiple hospital stays. He was found to be in poor social conditions with lying in his diarrhea and urine. His electric wheelchair is not working. He will need to go to a assisted. Elevated troponin noted so cardiology has been consulted. Currently he is doing better and he feels like he is on the mend. Subjective/Events-last exam Patient is a 71 yo man admitted for chest pain (NSTEMI). Cardiac catheterization was carried out yesterday with mild to moderate CAD found. Findings were non- obstructive. Dr. Houser recommends conservative management. Patient says that he is feeling stronger today. He admits to intermittent chest pain and minor SOB. Denies N/V, headaches, constipation, diarrhea, or any other concerning symptoms. Review of Systems General: No Chills, No Malaise HEENT: No Head Aches, No Visual Changes Pulmonary: Dyspnea (Mild) Cardiovascular: Chest Pain (Intermittent), Edema Gastrointestinal: No: Nausea, Vomiting, Abdominal Pain, Diarrhea, Constipation Neurological: No: Change in speech, Confusion Focused Exam Sepsis Stage: Ruled Out Reason for ruling out sepsis: Patient does not meet SIRS criteria needed for sepsis diagnosis Objective Exam Vital Signs Vital Signs Date Time Temp Pulse Resp B/P (MAP) Pulse Ox O2 Delivery O2 Flow Rate FiO2 08/27/22 10:45 Nasal Cannula 1.00 08/27/22 10:35 98 08/27/22 08:00 73 14 08/27/22 03:56 37.2 08/26/22 14:10 28 Capillary Refill : General Appearance: No Apparent Distress, WD/WN Neck: Full Range of Motion, Normal Inspection, Non Tender, Supple; No Carotid Bruit, No JVD Respiratory: Chest Non Tender, Lungs Clear, Normal Breath Sounds, No Accessory Muscle Use, No Respiratory Distress Cardiovascular: Regular Rate, Rhythm (Patient has implanted pacemaker), No Gallop, No JVD, Normal Peripheral Pulses Gastrointestinal: Normal Bowel Sounds, Non Tender, Soft Back: Normal Inspection Extremity: Swelling (Minor swelling noted in lower legs and ankles bilaterally (non-pitting)) Neurologic/Psychiatric: Alert, Oriented x3, No Motor/Sensory Deficits, Normal Mood/Affect Skin: Normal Color, Other (Minor chronic venous stasis changes noted in lower legs bilaterally) Lymphatic: No Adenopathy Results/Procedures Lab Laboratory Tests 08/27/22 05:06 Patient resulted labs reviewed. Radiology Date of Exam:08/25/22 CHEST 1 VIEW, AP/PA ONLY INDICATION: Chest pain. COMPARISON: 08/20/2022. FINDINGS: Single frontal radiographic view of the chest was obtained and demonstrates normal cardiac silhouette and pulmonary vasculature. Left-sided multilead pacemaker is noted. Lungs show low inspiratory volumes, but are otherwise clear. There is no large effusion or pneumothorax. Osseous structures show no gross acute abnormalities. IMPRESSION: 1. Low lung volumes, but no evidence of failure or focal infiltrate. Dictated by: Dictated on workstation # [id number] Dict: 08/25/221836 Trans: 08/26/221651 [id number] [id number] Interpreted by: MARY ESPINAL MD Electronically signed by: MARY ESPINAL MD 08/26/221651 Meds Gabapentin, albuterol ipratropium, albuterol sulfate, enoxaparin for DVT prophy laxis, aspirin, morphine and oxycodone for pain control. Assessment/Plan Assessment and Plan Assess & Plan/Chief Complaint Chest pain (NSTEMI) - Patient underwent cardiac catheterization with no significant obstructive disease found. Continue pain management with morphine and oxycodone. Cardiac ultrasound examination found EF of 55-60%, grade 2 diastolic dysfunction, biatrial enlargement, PA pressure 15 mmHg CAD - Patient followed by cardiology, continue conservative management and monitoring. GERD - continue pantoprazole COPD - continue medical management Hypertension - continue BP monitoring Hyperlipidemia - continue monitoring of lipid levels, last taken was within normal levels aside from an HDL of 75. Clinical Quality Measures AMI/AHF: ASA po Prior to arrival: No KIRSTEN BHANDARI DO 08/27/222033: Subjective Subjective/Events-last exam Pt is doing really well Transferring to the floor Needs assisted placement Dr. Trevino evaluated everything and no intervention was required for coronary artery disease Supervisory-Addendum Brief Verification & Attestation Participated in pt care: history, MDM, physical Personally performed: exam, history, MDM, supervision of care Care discussed with: Medical Student Procedures: n/a Results interpretation: Verified all documentation Verification and Attestation of Medical Student E/M Service A medical student performed and documented this service in my presence. I reviewed and verified all information documented by the medical student and made modifications to such information, when appropriate. I personally performed the physical exam and medical decision making. Kirsten Bhandari, Aug 27, 2022,20:35 SHALA SOTO Aug 27, 2022 11:18 KIRSTEN BHANDARI DO Aug 27, 2022 20:34
[2022-08-27] MEDS: morphine IMMEDIATE RELEASE 15 MG TABLET PO PRN ×2 (11:44→18:53)
[2022-08-27 12:21] VITALS: BP 132/61
--- NOTE | 2022-08-27 13:39 | Physical Therapy Daily Note ---
PT Daily Note-Current Subjective Pt. in bed, refuses out of bed or any activity at this time stating he is in pain, requests nurse bring more pain meds Pain Numeric Pain Scale: 6 Location: Medial Location Body Site: Back Pain Description: Ache Section J - Health Conditions 1. Rarely or not at all 2. Occasionally 3. Frequently 4. Almost constantly 8. Unable to answer Pain Effect on Sleep: 2 Pain Interference with Therapy: 3 Pain Interference w/Day-to-Day: 3 Mental Status Patient Orientation: Normal For Age Transfers SCALE: Activities may be completed with or without assistive devices. 5-Zrvwzmatoe-paacmiz completes the activity by him/herself with no assistance from a helper. 5-Set-up or Clean-up Assistance-helper sets up or cleans up; patient completes activity. [place] assists only prior to or following the activity. 4-Supervision or Touching Assistance-helper provides verbal cues and/or touching/steadying and/or contact guard assistance as patient completes activity. Assistance may be provided throughout the activity or intermittently. 3-Partial/Moderate Assistance-helper does LESS THAN HALF the effort. [place] lifts, holds or supports trunk or limbs, but provides less than half the effort. 2-Substantial/Maximal Assistance-helper does MORE THAN HALF the effort. [place] lifts or holds trunk or limbs and provides more than half the effort. 3-Mxabefgig-yppiby does ALL the effort. Patient does none of the effort to complete the activity. Or, the assistance of 2 or more helpers is required for the patient to complete the activity. If activity was not attempted, code reason: 7-Patient Refused. 9-Not Applicable-not attempted and the patient did not perform the activity before the current illness, exacerbation or injury. 10-Not Attempted due to Environmental Limitations-(lack of equipment, weather restraints, etc.). 88-Not Attempted due to Medical Conditions or Safety Concerns. Assessment Current Status: Refused Treatment PT [facility] Goals Senior Packaging Engineer Goals PT Senior Packaging Engineer Goals Time Frame: Sep 06, 2022 Roll Left & Right (QC): 4 Sit to Lying (QC): 4 Lying-Sitting on Side/Bed(QC): 4 PT Plan Treatment/Plan Treatment Plan: Continue Plan of Care Treatment Plan: Bed Mobility, Education, Functional Activity Ever, Functional Strength, Safety, Therapeutic Exercise Treatment Duration: Sep 06, 2022 Frequency: 6 times per week Estimated Hrs Per Day: .25 hour per day Patient and/or Family Agrees t: Yes Time Time In: 1330 Time Out: 1334 DATE: Aug 27, 2022 Total Billed Treatment Time: 0 Total Billed Treatment 1.No Rx,No chg PATRICK PARADA CIGAR WRAPPER TENDER AUTOMATIC Aug 27, 2022 13:39
[2022-08-27 15:24] VITALS: BP 132/62
[2022-08-27 20:26] VITALS: BP 154/68
[2022-08-27] MEDS ORDERED: SERTRALINE 50 MG (ZOLOFT) TABLET PO SCH (21:00)
[2022-08-27] MEDS ORDERED: ZOLPIDEM 5 MG (AMBIEN) TAB PO SCH (21:00)
[2022-08-28 00:39] VITALS: BP 133/80
[2022-08-28] MEDS: morphine IMMEDIATE RELEASE 15 MG TABLET PO PRN ×2 (01:30→13:21)
[2022-08-28] MEDS: RT-ALBUTEROL/IPRATROPIUM 3 ML (DUONEB) VIAL INH SCH ×4 (02:20→14:30)
[2022-08-28 04:06] VITALS: BP 120/72
[2022-08-28] MEDS: morphine INJ 4 MG/ML 1 ML (VIAL/SYRINGE) IV PRN (05:07)
[2022-08-28 05:52] LABS: BASOPHILS # (AUTO) 0.1 10^3/uL (0.0-0.1); BASOPHILS % (AUTO) 1 % (0-10); EOSINOPHILS # (AUTO) 0.4 10^3/uL (0.0-0.3); EOSINOPHILS % (AUTO) 5 % (0-10); HEMATOCRIT 30 % (40-54); HEMOGLOBIN 9.7 g/dL (13.3-17.7); LYMPHOCYTES # (AUTO) 2.1 10^3/uL (1.0-4.0); LYMPHOCYTES % (AUTO) 25 % (12-44); MEAN CORPUSCULAR HEMOGLOBIN 32 pg (25-34); MEAN CORPUSCULAR HGB CONC 32 g/dL (32-36); MEAN CORPUSCULAR VOLUME 99 fL (80-99); MEAN PLATELET VOLUME 11.1 fL (9.0-12.2); MONOCYTES # (AUTO) 0.6 10^3/uL (0.0-1.0); MONOCYTES % (AUTO) 7 % (0-12); NEUTROPHILS # (AUTO) 5.3 10^3/uL (1.8-7.8); NEUTROPHILS % (AUTO) 62 % (42-75); PLATELET COUNT 170 10^3/uL (130-400); WHITE BLOOD COUNT 8.6 10^3/uL (4.3-11.0)
[2022-08-28 06:13] LABS: ALBUMIN 2.6 GM/DL (3.2-4.5); BILIRUBIN,TOTAL 0.7 MG/DL (0.1-1.0); CREATININE SERUM 0.73 MG/DL (0.60-1.30); POTASSIUM 3.8 MMOL/L (3.6-5.0); TOTAL PROTEIN 5.2 GM/DL (6.4-8.2)
[2022-08-28 08:36] VITALS: BP 128/60
--- NOTE | 2022-08-28 08:39 | Cardiology Progress Note ---
Subjective Date Seen by Provider: Aug 28, 2022 Time Seen by Provider: 08:20 Subjective/Events-last exam Patient sitting up in bed, no new complaints. Review of Systems General: No Chills, No Night Sweats; Fatigue; No Malaise, No Appetite, No Other HEENT: No Head Aches, No Visual Changes, No Eye Pain, No Ear Pain, No Dysphasia, No Sinus Congestion, No Post Nasal Drip, No Sore Throat, No Other Pulmonary: Dyspnea; No Cough, No Pleuritic Chest Pain, No Other Cardiovascular: No: Chest Pain, Palpitations, Orthopnea, Paroxysmal Noc. Dyspnea, Edema, Lt Headedness, Other Objective-Cardiology Exam Last Set of Vital Signs Vital Signs 08/26/22 08/28/22 14:10 08:36 Temp 37.0 Pulse 94 Resp 18 B/P (MAP) 128/60 (82) Pulse Ox 95 O2 Delivery Nasal Cannula O2 Flow Rate 2.00 FiO2 28 I&O Intake and Output 08/28/22 00:00 Intake Total 1200 ml Output Total 850 ml Balance 350 ml Intake Oral 1200 ml Output Urine Total 850 ml General: Alert, Oriented X3, Cooperative HEENT: Atraumatic, PERRLA Neck: Supple, No JVD, No Thyromegaly Lungs: Clear to Auscultation, Normal Air Movement Heart: Regular Rate, Normal S1, Normal S2, No Murmurs Abdomen: Normal Bowel Sounds, Soft, No Tenderness, No Hepatosplenomegaly, No Masses Extremities: No Clubbing, No Cyanosis, No Edema, Normal Pulses, No Tenderness/Swelling Skin: No Rashes, No Breakdown, No Significant Lesion Neuro: Normal Gait, Normal Speech, Strength at 5/5 X4 Ext, Normal Tone, Sensation Intact Psych/Mental Status: Mental Status NL, Mood NL Results Lab Laboratory Tests 08/28/22 05:40 A/P-Cardiology Admission Diagnosis Chest pain Non-ST elevation myocardial infarction Coronary artery disease Hypertension Assessment/Plan Chest pain, nonspecific etiology Patient had history of recurrent pain with difficult control. Cardiac catheterization showed no significant obstructive disease. Coronary artery disease, cardiac catheterization carried out in 2012 and 2014 with diffuse atherosclerotic plaques. Nonobstructive disease. Mild elevation in troponin, borderline. Cardiac catheterization was carried out on August 26, 2022 with nonobstructive coronary artery disease. iFR was done through the circumflex artery. Patient does not have myocardial infarction Patient had a stress test done by Dr. Houser in July 2020 with no ischemia or infarction with a EF normal 2D echo done on August 26, 2022 with normal LV size and function. Ejection fraction 55 to 60%, grade 2 diastolic dysfunction, biatrial enlargement, PA pressure 15 mmHg Hypertension, continue to monitor blood pressure Hyperlipidemia, monitor lipids History of dual-chamber pacemaker due to sinus node dysfunction, he has history of sinus pause for 3.2 second. Last interrogation was done on August 16, 2022 with good sensing and capture activity. History of avascular necrosis of the hip, underwent multiple hip surgeries in the past and hip replacements. History of gastroesophageal reflux disease, COPD. Polysubstance use for pain control Previous history of tobaccoism OK for discharge from cardiology standpoint Supervisory-Addendum Brief Supervisory Addendum Participated in pt care: history, MDM, physical Personally performed: exam, history, MDM Care discussed with: LO Results interpretation: Verified all documentation Notes: Patient was seen and evaluated with Brooks, examination performed, management plan was discussed, agree with the current scribed note, I made few changes to the note using Italic font Patient was seen at bedside, laying down comfortably, feeling better Discussed the management plan, continue with current medication, okay for disch arge from cardiology standpoint Monitor blood pressure and lipids as an outpatient. BROOKS GOLD Aug 28, 2022 08:39 SKYLA SQUIRES MD Aug 28, 2022 08:47
[2022-08-28] MEDS: ENOXAPARIN 80 MG/0.8 ML (LOVENOX) SYR SC SCH (09:59)
[2022-08-28] MEDS: DOCUSATE SODIUM 100 MG (COLACE) CAP PO SCH (10:00)
[2022-08-28] MEDS: ASPIRIN E.C. 81 MG (ECOTRIN) TAB PO SCH (10:00)
[2022-08-28] MEDS: GABAPENTIN 300 MG (NEURONTIN) CAP PO SCH ×2 (10:00→13:21)
[2022-08-28] MEDS: SENNOSIDES 8.6 MG (SENOKOT) TAB PO SCH (10:01)
[2022-08-28] MEDS ORDERED: OXC5T PO (10:34)
--- NOTE | 2022-08-28 10:35 | D/C HH Face to Face Order ---
D/C Face to Face Orders Reconcile Patient Problems Problems Reviewed?: Yes Instructions for Patient Via Keiko Quidsi, Patient Instructions/FollowUp: PCP 1 week Physician to follow Patient: [facility] Discharge Diet for Home: No Restrictions Patient Problems: Debility Patient Data-Allergies,Ht & Wt Patient Allergies: Coded Allergies: codeine (Verified Allergy, Mild, HIVES...TAKES OXYCODONE & MS CONTIN AT HOME, 03/11/19) streptokinase (Verified Allergy, Unknown, 03/11/19) Height (Feet): 5 Height (Inches): 8.00 Weight (Pounds): 170 Weight (Ounces): 8.0 Home Health Need/Face to Face Date of Face to Face: Aug 28, 2022 Clinical Findings: Generalized weakness and fatigue I have seen Pt [id number]: Yes Discharged To: Home Diagnosis/Conditions: Debility Patient is Homebound due to: Muscle weakness Homebound Status Due to the above stated illness, injury or surgical procedure (medical condition or diagnosis) and associated clinical findings, the patient is homebound because of his/her inability to leave home except with aid of a s upportive device and/or person AND leaving the home requires a considerable and taxing effort or is medically contraindicated. Pt req the following assistanc: Wheelchair Home Health Nursing Orders Home Health Services Order: Nursing Services, Game Bird Farmer-Evaluate & Treat, Physical Therapy-Evaluate & Treat Home Health Infusion Therapy Line Start Date: Aug 25, 2022 Certify Stmt I certify that this patient is under my care and that I, a nurse practitioner or a physician; a imaging assistant working with me, had a face to face encounter that - meets the physician face to face encounter requirements with this patient as dated. ZOHREH BHANDARI DO Aug 28, 2022 10:35
--- NOTE | 2022-08-28 10:45 | Occupational Ther Daily Note ---
OT Current Status-Daily Note Subjective Pt in bed, alert. Pt agrees to therapy. C/o no pain. Mental Status/Objective Patient Orientation: Person, Place, Time, Situation Attachments: IV ADL-Treatment Pt completed facial grooming and oral hygiene by self after set up. Pt cleaned aubrey area, face and BUE's by self after set up. Pt in bed at end of session. phone/call light in reach. All needs met in room. Therapy Code Descriptions/Definitions Functional [place] Measure: 0=Not Assessed/NA 4=Minimal Assistance 1=Total Assistance 5=Supervision or Setup 2=Maximal Assistance 6=Modified [place] 3=Moderate Assistance 7=Complete IndependenceSCALE: Activities may be completed with or without assistive devices. 6-Tdpfuapctd-lopoiim completes the activity by him/herself with no assistance from a helper. 5-Set-up or Clean-up Assistance-helper sets up or cleans up; patient completes activity. [place] assists only prior to or following the activity. 4-Supervision or Touching Assistance-helper provides verbal cues and/or touching/steadying and/or contact guard assistance as patient completes activity. Assistance may be provided throughout the activity or intermittently. 3-Partial/Moderate Assistance-helper does LESS THAN HALF the effort. [place] lifts, holds or supports trunk or limbs, but provides less than half the effort. 2-Substantial/Maximal Assistance-helper does MORE THAN HALF the effort. [place] lifts or holds trunk or limbs and provides more than half the effort. 5-Tyilbpuez-bzspnw does ALL the effort. Patient does none of the effort to complete the activity. Or, the assistance of 2 or more helpers is required for the patient to complete the activity. If activity was not attempted, code reason: 7-Patient Refused. 9-Not Applicable-not attempted and the patient did not perform the activity be fore the current illness, exacerbation or injury. 10-Not Attempted due to Environmental Limitations-(lack of equipment, weather restraints, etc.). 88-Not Attempted due to Medical Conditions or Safety Concerns. OT Nursing Home Goals Nursing Home Goals Time Frame: Sep 19, 2022 Oral Hygiene (QC): 5 Toileting Hygiene (QC): 4 Shower/Bathe Self (QC): 4 Additional Goals: 1-Demonstrate ADL Tasks, 2-Verbalize Understanding, 3- ImproveStrength/Ever 1=Demonstrate adherence to instructed precautions during ADL tasks. 2=Patient will verbalize/demonstrate understanding of assistive devices/modifications for ADL. 3=Patient will improve strength/tolerance for activity to enable patient to perform ADL's. OT Education/Plan Problem List/Assessment Assessment: Impaired Self-Care Skills Discharge Recommendations Plan/Recommendations: Continue POC Treatment Plan/Plan of Care Patient would benefit from OT for education, treatment and training to promote independence in ADL's, mobility, safety and/or upper extremity function for ADL's. Plan of Care: ADL Retraining, Caregiver Training, Functional Mobility, Group Exercise/Act as Ind, UE Funct Exercise/Act, W/C Management Training Treatment Duration: Sep 19, 2022 Frequency: 3 times per week (3-5 x/week) Estimated Hrs Per Day: .25 hour per day Rehab Potential: Guarded Time Start Time: 10:00 Stop Time: 10:24 DATE: Aug 28, 2022 Total Time Billed (hr/min): 24 Billed Treatment Time 1 visit ADL 2 (24 min) ROXI LIN Aug 28, 2022 10:45
--- NOTE | 2022-08-28 11:33 | Physical Therapy Daily Note ---
PT Daily Note-Current Subjective Patient in bed pre tx, agrees to exercises in bed but states he doesn't want to get out of bed today. Patient has 8/10 pain in groin and legs. Pain Section J - Health Conditions 1. Rarely or not at all 2. Occasionally 3. Frequently 4. Almost constantly 8. Unable to answer Pain Effect on Sleep: 2 Pain Interference with Therapy: 3 Pain Interference w/Day-to-Day: 3 Appearance Patient in bed post tx with nurse call, phone, tray, all needs met. Mental Status Patient Orientation: Person, Place, Situation Transfers SCALE: Activities may be completed with or without assistive devices. 7-Phjppxtnbm-guundes completes the activity by him/herself with no assistance from a helper. 5-Set-up or Clean-up Assistance-helper sets up or cleans up; patient completes activity. [place] assists only prior to or following the activity. 4-Supervision or Touching Assistance-helper provides verbal cues and/or touchin g/steadying and/or contact guard assistance as patient completes activity. Assistance may be provided throughout the activity or intermittently. 3-Partial/Moderate Assistance-helper does LESS THAN HALF the effort. [place] lifts, holds or supports trunk or limbs, but provides less than half the effort. 2-Substantial/Maximal Assistance-helper does MORE THAN HALF the effort. [place] lifts or holds trunk or limbs and provides more than half the effort. 4-Fxalnkndg-nujmuc does ALL the effort. Patient does none of the effort to complete the activity. Or, the assistance of 2 or more helpers is required for the patient to complete the activity. If activity was not attempted, code reason: 7-Patient Refused. 9-Not Applicable-not attempted and the patient did not perform the activity before the current illness, exacerbation or injury. 10-Not Attempted due to Environmental Limitations-(lack of equipment, weather restraints, etc.). 88-Not Attempted due to Medical Conditions or Safety Concerns. Exercises Supine Ex: Ankle pumps, Quad Set, Glut sets, Heel Slides Supine Reps: 20 Treatments LE strengthening Assessment Current Status: Poor Progress refused to get out of bed again today PT Retirement Goals Burrer Machine Goals PT Retirement Goals Time Frame: Sep 06, 2022 Roll Left & Right (QC): 4 Sit to Lying (QC): 4 Lying-Sitting on Side/Bed(QC): 4 PT Plan Problem List Problem List: Activity Tolerance, Functional Strength, Safety, Balance, Gait, Transfer, Bed Mobility, ROM Treatment/Plan Treatment Plan: Continue Plan of Care Treatment Plan: Bed Mobility, Education, Functional Activity Ever, Functional Strength, Safety, Therapeutic Exercise Treatment Duration: Sep 06, 2022 Frequency: 6 times per week Estimated Hrs Per Day: .25 hour per day Patient and/or Family Agrees t: Yes Safety Risks/Education Patient Education: Correct Positioning, Safety Issues Teaching Recipient: Patient Teaching Methods: Demonstration, Discussion Response to Teaching: Reinforcement Needed Time Time In: 1104 Time Out: 1112 DATE: Aug 28, 2022 Total Billed Treatment Time: 8 Total Billed Treatment 1 visit EX Julien' OBED BOWMAN PT Aug 28, 2022 11:33
[2022-08-28 11:48] VITALS: BP 125/58
--- NOTE | 2022-08-28 11:55 | Progress Note ---
SHALA SOTO 08/28/22 1155: Progress Note Patient is a 66 yo man admitted for chest pain that radiated to his left arm (NSTEMI) and was found to have an elevated troponin of 0.103. He has a past medical history of asthma, COPD, atrial fibrillation, CAD, congenital heart disease, previous [place], hypertension, and insulin dependant diabetes. He was he modynamically stable on arrival and placed on lovenox and metoprolol. His chest pain was unresponsive to nitroglycerin but did respond to morphine. Cardiac catheterization carried out on 08/26/2022 showed mild to moderate CAD, and was described as non-obstructive. 2D echo performed on 08/26/2022 indicated normal LV size and function, an ejection fraction of 55-60%, grade 2 diastolic dysfunction, biatrial enlargement, and PA pressure of 15 mmHg Cardiology recommended conservative management. Throughout his stay, his SOB and chest pain continued to improve. Cardiology indicates that he is okay to be discharged in regard to his heart condition. Today he states that he is feeling good and is ready and eager to be discharged. He denies chest pain, SOB, constipation, diarrhea, hematochezia, melena, lightheadedness or fatigue. He indicates that he uses oxygen at home, 4L at night. O: Temperature: 37 Pulse: 94 RR: 18 BP: 128/60 Pulse oximetry: 94 RA today's labs were only remarkable for RBC: 3.04, HGB: 9.7, HCT: 30 and Ca: 8.0 Physical exam found no marked abnormalities. Heart was in regular rate and rhythm with no murmurs or gallops noted, lungs were clear bilaterally, no JVD or carotid bruits noted. Bowel sounds were normal. A/P Chest pain (NSTEMI) - resolved, full cardiac work-up did not indicate a myocardial infarction CAD - Patient followed by cardiology, continue conservative management and monitoring GERD - Continue pantoprazole COPD - Continue medical management Hypertension - continue medical management and BP monitoring Hyperlipidemia - continue monitoring of lipid levels, last taken was within normal limits aside from an HDL of 75 Patient to be discharged to [facility] KIRSTEN BHANDARI DO 08/29/22 3012: Supervisory-Addendum Brief Verification & Attestation Participated in pt care: history, MDM, physical Personally performed: exam, history, MDM, supervision of care Care discussed with: Medical Student Procedures: n/a Results interpretation: Verified all documentation Verification and Attestation of Medical Student E/M Service A medical student performed and documented this service in my presence. I reviewed and verified all information documented by the medical student and made modifications to such information, when appropriate. I personally performed the physical exam and medical decision making. Kirsten Bhandari, Aug 29, 2022,05:02 SHALA SOTO Aug 28, 2022 11:55 KIRSTEN BHANDARI DO Aug 29, 2022 05:02
[2022-08-28 15:38] VITALS: BP 138/75
[2022-08-28 17:25] VITALS: BP 138/75
--- NOTE | 2022-08-29 05:04 | Discharge Summary ---
Discharge Summary Hospital Course Was the Problem List Reviewed?: Yes Problems/Dx: (1) Elevated troponin I level Status: Acute (2) Diarrhea Status: Acute (3) Skin breakdown Status: Acute (4) Unable to care for self Hospital Course Date of Admission: Aug 25, 2022 at 21:21 Admission Diagnosis : Family Physician/Provider: Uriel Cardona MD Date of Discharge: 08/29/22 Discharge Diagnosis: [ ] Hospital Course: Patient is a 66 yo man admitted for chest pain that radiated to his left arm (NSTEMI) and was found to have an elevated troponin of 0.103. He has a past medical history of asthma, COPD, atrial fibrillation, CAD, congenital heart disease, previous [place], hypertension, and insulin dependant diabetes. He was hemodynamically stable on arrival and placed on lovenox and metoprolol. His chest pain was unresponsive to nitroglycerin but did respond to morphine. Cardiac catheterization carried out on 08/26/2022 showed mild to moderate CAD, and was described as non-obstructive. 2D echo performed on 08/26/2022 indicated normal LV size and function, an ejection fraction of 55-60%, grade 2 diastolic dysfunction, biatrial enlargement, and PA pressure of 15 mmHg Cardiology recommended conservative management. Throughout his stay, his SOB and chest pain continued to improve. Cardiology indicates that he is okay to be discharged in regard to his heart condition. Today he states that he is feeling good and is ready and eager to be discharged. He denies chest pain, SOB, constipation, diarrhea, hematochezia, melena, lightheadedness or fatigue. He indicates that he uses oxygen at home, 4L at night. O: Temperature: 37 Pulse: 94 RR: 18 BP: 128/60 Pulse oximetry: 94 RA today's labs were only remarkable for RBC: 3.04, HGB: 9.7, HCT: 30 and Ca: 8.0 Physical exam found no marked abnormalities. Heart was in regular rate and rhythm with no murmurs or gallops noted, lungs were clear bilaterally, no JVD or carotid bruits noted. Bowel sounds were normal. A/P Chest pain (NSTEMI) - resolved, full cardiac work-up did not indicate a myocardial infarction CAD - Patient followed by cardiology, continue conservative management and monitoring GERD - Continue pantoprazole COPD - Continue medical management Hypertension - continue medical management and BP monitoring Hyperlipidemia - continue monitoring of lipid levels, last taken was within normal limits aside from an HDL of 75 Patient to be discharged to [facility] Labs and Pending Lab Test: Laboratory Tests 08/28/22 05:40: White Blood Count 8.6, Red Blood Count 3.04L, Hemoglobin 9.7L, Hematocrit 30L, Mean Corpuscular Volume 99, Mean Corpuscular Hemoglobin 32, Mean Corpuscular Hemoglobin Concent 32, Red Cell Distribution Width 13.5, Platelet Count 170, Mean Platelet Volume 11.1, Immature Granulocyte % (Auto) 0, Neutrophils (%) (Auto) 62, Lymphocytes (%) (Auto) 25, Monocytes (%) (Auto) 7, Eosinophils (%) (Auto) 5, Basophils (%) (Auto) 1, Neutrophils # (Auto) 5.3, Lymphocytes # (Auto) 2.1, Monocytes # (Auto) 0.6, Eosinophils # (Auto) 0.4H, Basophils # (Auto) 0.1, Immature Granulocyte # (Auto) 0.0, Sodium Level 137, Potassium Level 3.8, Chloride Level 105, Carbon Dioxide Level 24, Anion Gap 8, Blood Urea Nitrogen 16, Creatinine 0.73, Estimat Glomerular Filtration Rate 98, BUN/Creatinine Ratio 22, Glucose Level 103, Calcium Level 8.0L, Corrected Calcium 9.1, Total Bilirubin 0.7, Aspartate Amino Transf (AST/SGOT) 26, Alanine Aminotransferase (ALT/SGPT) 18, Alkaline Phosphatase 79, Total Protein 5.2L, Albumin 2.6L Home Meds Active Oxyir Tablet (Oxycodone HCl) 5 Mg Tab 5 Mg PO Q4HR PRN Reported Calmoseptine Ointment (Menthol/Lanolin/Calamine/Znox) 0.44 %-20.6 % Oint 1 Applic TP DAILY PRN Ibuprofen 200 Mg Tablet 400 Mg PO Q6H PRN Furosemide 40 Mg Tablet 40 Mg PO DAILY PRN Sertraline HCl 50 Mg Tablet 50 Mg PO HS FILLED 05-23-2022 #60/60 DAY SUPPLY Ambien (Zolpidem Tartrate) 10 Mg Tablet 10 Mg PO HS Neurontin (Gabapentin) 300 Mg Capsule 300 Mg PO TID Ventolin Hfa (Albuterol Sulfate) 1 Puff Puff 2 Puff INH Q6H PRN Assessment/Pt Instructions PCP in 1 week Discharge Planning: <30 minutes discharge planning Discharge Instructions Discharge Diet: No Restrictions Discharge Physical Examination Vital Signs Vital Signs Date Time Temp Pulse Resp B/P (MAP) Pulse Ox O2 Delivery O2 Flow Rate FiO2 08/28/22 17:25 37.3 98 22 138/75 94 Room Air 0.00 08/26/22 14:10 28 General Appearance: No Apparent Distress, WD/WN, Chronically ill Allergies: Coded Allergies: codeine (Verified Allergy, Mild, HIVES...TAKES OXYCODONE & MS CONTIN AT HOME, 03/11/19) streptokinase (Verified Allergy, Unknown, 03/11/19) Discharge Summary Date of Admission Aug 25, 2022 at 21:21 Date of Discharge Aug 28, 2022 at 17:25 Discharge Date: Aug 28, 2022 Admission Diagnosis Assessment: NSTEMI Unable to care for self at home Bilateral hip dysfunction status post multiple surgeries remains unable to ambulate Depression COPD Former smoker Plan: Cardiology appreciated Gas Transfer Operator closely Discharge Diagnosis (1) Elevated troponin I level Status: Acute (2) Diarrhea Status: Acute (3) Skin breakdown Status: Acute (4) Unable to care for self Clinical Quality Measures AMI/AHF: ASA po Prior to arrival: ZOHREH Cordero DO Aug 29, 2022 05:04
== END 2022-08-28 17:25 | disposition home health service (06) | DRG 287 ==
LOC: EDUNIT# 18:08 → ER 18:09 → CSD 21:21 → ER 21:58 → 4TH 08-27 11:19
PROVIDERS: ADMIT Internal Medicine; ATTEND Internal Medicine
PROC: 4A023N7 Measurement of Cardiac Sampling and Pressure, Left Heart, Percutaneous Approach (ICD-10-PCS; principal; 2022-08-26)
PROC: B2111ZZ Fluoroscopy of Multiple Coronary Arteries using Low Osmolar Contrast (ICD-10-PCS; 2022-08-26)
PROC: B2151ZZ Fluoroscopy of Left Heart using Low Osmolar Contrast (ICD-10-PCS; 2022-08-26)
PROC: 4A033BC Measurement of Arterial Pressure, Coronary, Percutaneous Approach (ICD-10-PCS; 2022-08-26)
DX: R07.9 Chest pain, unspecified (principal); Q28.9 Congenital malformation of circulatory system, unspecified; R77.8 Other specified abnormalities of plasma proteins; I25.10 Atherosclerotic heart disease of native coronary artery without angina pectoris; I48.91 Unspecified atrial fibrillation; K21.9 Gastro-esophageal reflux disease without esophagitis; I10 Essential (primary) hypertension; J44.9 Chronic obstructive pulmonary disease, unspecified; Z99.3 Dependence on wheelchair; M25.852 Other specified joint disorders, left hip; M25.851 Other specified joint disorders, right hip; E11.40 Type 2 diabetes mellitus with diabetic neuropathy, unspecified; N31.9 Neuromuscular dysfunction of bladder, unspecified; I25.2 Old myocardial infarction; H91.90 Unspecified hearing loss, unspecified ear; Z60.9 Problem related to social environment, unspecified; E78.5 Hyperlipidemia, unspecified; Z87.891 Personal history of nicotine dependence; Z95.810 Presence of automatic (implantable) cardiac defibrillator; Z88.5 Allergy status to narcotic agent; Z88.8 Allergy status to other drugs, medicaments and biological substances; Z82.5 Family history of asthma and other chronic lower respiratory diseases; Z83.3 Family history of diabetes mellitus
CPT/HCPCS: 36415; 71045; 80053; 80061; 84484; 85007; 85025; 85027; 93005; 93306; 93458; 94640; 94760; 96360; 96361; 96372

== ENCOUNTER 2022-08-30 20:20 | Inpatient (IN) | payer MEDICARE, MEDICAID ==
[~2022-08-30] VITALS: Ht 172.7 cm; Wt 77.3 kg
--- NOTE | 2022-08-30 20:37 | ED General ---
General Chief Complaint: Respiratory Problems Stated Complaint: OUT OF PAIN MEDS Source of Information: Patient (EXTREMELY POOR HISTORIAN--ANSWERS "I DON'T KNOW" TO MOST QUESTIONS), Old Records History of Present Illness Date Seen by Provider: Aug 30, 2022 Time Seen by Provider: 20:20 Initial Comments PT ARRIVES VIA EMS FROM HOME PT IS BED BOUND DUE TO MULTIPLE FAILED HIP SURGERIES PT LIVES ALONE, SON HELPS HIM DURING THE WEEK, Allergies and Home Medications Allergies Coded Allergies: codeine (Verified Allergy, Mild, HIVES...TAKES OXYCODONE & MS CONTIN AT HOME, 03/11/19) streptokinase (Verified Allergy, Unknown, 03/11/19) Patient Home Medication List Albuterol Sulfate (Ventolin Hfa) 1 Puff Puff, 2 PUFF INH Q6H PRN for SHORTNESS OF BREATH, (Reported) Entered as Reported by: KARINA RAPHAEL on 08/06/20 1606 Furosemide (Furosemide) 40 Mg Tablet, 40 MG PO DAILY PRN for FLUID RETENTION, (Reported) Entered as Reported by: CHAVA HERRERA on 08/11/22 0828 Gabapentin (Neurontin) 300 Mg Capsule, 300 MG PO TID, (Reported) Entered as Reported by: KARINA RAPHAEL on 08/01/22 1517 Ibuprofen (Ibuprofen) 200 Mg Tablet, 400 MG PO Q6H PRN for PAIN-MILD (1-4), (Reported) Entered as Reported by: CHAVA HERRERA on 08/11/22 08 Menthol/Lanolin/Calamine/Znox (Calmoseptine Ointment) 0.44 %-20.6 % Oint, 1 APPLIC TP DAILY PRN for SKIN IRRITATION, (Reported) Entered as Reported by: CHAVA HERRERA on 08/11/22 0833 Oxycodone Hcl (Oxyir Tablet) 5 Mg Tab, 5 MG PO Q4HR PRN for PAIN-SEE DOSE INSTRUCTIONS Prescribed by: ZOHREH BHANDARI on 08/28/22 1034 Sertraline HCl (Sertraline HCl) 50 Mg Tablet, 50 MG PO HS, (Reported) Entered as Reported by: CHAVA HERRERA on 08/11/22 0826 Zolpidem Tartrate (Ambien) 10 Mg Tablet, 10 MG PO HS, (Reported) Entered as Reported by: CHAVA HERRERA on 08/11/22 0826 Discontinued Medications Cefdinir (Cefdinir) 300 Mg Capsule, 300 MG PO BID Discontinued Reason: No Longer Taking Prescribed by: ZOHREH BHANDARI on 08/11/22 1042 Oxycodone Hcl (Oxyir Tablet) 5 Mg Tab, 5 MG PO Q4HR PRN for PAIN-SEE DOSE INSTRUCTIONS Discontinued Reason: No Longer Taking Prescribed by: ZOHREH BHANDARI on 08/11/22 1043 Past Hgyoznq-Pxcftx-Eitgdg Hx Immunizations Up To Date Tetanus Booster (TDap): Less than 5yrs PED Vaccines UTD: No Seasonal Allergies Seasonal Allergies: No Past Medical History Surgeries: Yes (BILAT HIP REPLACEMENTS X 22; WOUND DEBRIDEMENTS) Abdominal, Appendectomy, Cardiac, Defibrillator, Joint Replacement, Orthopedic, Pacemaker Respiratory: Yes Asthma, COPD Currently Using CPAP: No Currently Using BIPAP: No Cardiac: Yes (PACEMAKER, CARDIAC ARREST, SELF - REPORTED DE X 8; CHF) Atrial Fibrillation, Chronic Edema/Swelling, Coronary Artery Disease, Congenital Heart Disease, Heart Attack, Hypertension, Irregular Heartbeat Neurological: Yes Neuropathy Reproductive Disorders: No Sexually Transmitted Disease: No HIV/AIDS: No Genitourinary: Yes Neurogenic Bladder Gastrointestinal: Yes Abdominal Hernia, Chronic Constipation Musculoskeletal: Yes Arthritis, Chronic Back Pain, Fractures Endocrine: Yes Diabetes, Insulin dep HEENT: Yes Dysphagia Loss of Vision: Denies Hearing Impairment: Hard of Hearing Cancer: No Psychosocial: Yes Suicide Attempts, Depression Integumentary: Yes (recurrent wound issues) Recent Skin Changes Blood Disorders: No Adverse Reaction/Blood Tranf: Yes (HIGH FEVER AND CHILLS) Family Medical History COPD Diabetes mellitus No Pertinent Family Hx Adopted, unknown FH Physical Exam Vital Signs Vital Signs - First Documented 08/30/22 20:22 Temp 36.9 Pulse 105 Resp 20 B/P (MAP) 196/92 (126) Pulse Ox 91 O2 Delivery Room Air O2 Flow Rate 2.00 Capillary Refill : Height, Weight, BMI Height: 5'8.00" Weight: 170lbs. 8.0oz. [id number]; 31.12 BMI Method:Stated Progress/Results/Core Measures Suspected Sepsis SIRS Temperature: Pulse: Respiratory Rate: Laboratory Tests 08/30/22 20:51: White Blood Count 11.1H Blood Pressure / Mean: Laboratory Tests 08/30/22 20:51: Creatinine 0.72, Platelet Count 227, Total Bilirubin 0.7 Results/Orders Lab Results Laboratory Tests Test 08/30/22 20:51 08/30/22 21:15 Range/Units White Blood Count 11.1 H 4.3-11.0 10^3/uL Red Blood Count 3.12 L 4.30-5.52 10^6/uL Hemoglobin 9.9 L 13.3-17.7 g/dL Hematocrit 30 L 40-54 % Mean Corpuscular Volume 97 80-99 fL Mean Corpuscular Hemoglobin 32 25-34 pg Mean Corpuscular Hemoglobin Concent 33 32-36 g/dL Red Cell Distribution Width 13.6 10.0-14.5 % Platelet Count 227 130-400 10^3/uL Mean Platelet Volume 10.9 9.0-12.2 fL Immature Granulocyte % (Auto) 1 % Neutrophils (%) (Auto) 73 42-75 % Lymphocytes (%) (Auto) 15 12-44 % Monocytes (%) (Auto) 10 0-12 % Eosinophils (%) (Auto) 1 0-10 % Basophils (%) (Auto) 1 0-10 % Neutrophils # (Auto) 8.0 H 1.8-7.8 10^3/uL Lymphocytes # (Auto) 1.7 1.0-4.0 10^3/uL Monocytes # (Auto) 1.1 H 0.0-1.0 10^3/uL Eosinophils # (Auto) 0.2 0.0-0.3 10^3/uL Basophils # (Auto) 0.1 0.0-0.1 10^3/uL Immature Granulocyte # (Auto) 0.1 0.0-0.1 10^3/uL Sodium Level 141 135-145 MMOL/L Potassium Level 3.7 3.6-5.0 MMOL/L Chloride Level 105 98-107 MMOL/L Carbon Dioxide Level 25 21-32 MMOL/L Anion Gap 11 5-14 MMOL/L Blood Urea Nitrogen 11 7-18 MG/DL Creatinine 0.72 0.60-1.30 MG/DL Estimat Glomerular Filtration Rate 99 BUN/Creatinine Ratio 15 Glucose Level 102 70-105 MG/DL Calcium Level 8.9 8.5-10.1 MG/DL Corrected Calcium 9.5 8.5-10.1 MG/DL Magnesium Level 1.3 L 1.6-2.4 MG/DL Total Bilirubin 0.7 0.1-1.0 MG/DL Aspartate Amino Transf (AST/SGOT) 29 5-34 U/L Alanine Aminotransferase (ALT/SGPT) 21 0-55 U/L Alkaline Phosphatase 96 40-136 U/L Total Protein 6.2 L 6.4-8.2 GM/DL Albumin 3.2 3.2-4.5 GM/DL Serum Alcohol < 10 <10 MG/DL Urine Color YELLOW Urine Clarity CLEAR Urine pH 6.0 5-9 Urine Specific [place] 1.010 L 1.016-1.022 Urine Protein TRACE H NEGATIVE Urine Glucose (UA) NEGATIVE NEGATIVE Urine Ketones NEGATIVE NEGATIVE Urine Nitrite NEGATIVE NEGATIVE Urine Bilirubin NEGATIVE NEGATIVE Urine Urobilinogen 0.2 < = 1.0 MG/DL Urine Leukocyte Esterase NEGATIVE NEGATIVE Urine RBC (Auto) NEGATIVE NEGATIVE Urine RBC NONE /HPF Urine WBC 0-2 /HPF Urine Squamous Epithelial Cells 10-25 H /HPF Urine Crystals NONE /LPF Urine Bacteria TRACE /HPF Urine Casts PRESENT /LPF Urine Hyaline Casts 0-2 H /LPF Urine Mucus SMALL H /LPF Urine Culture Indicated NO Urine Opiates Screen POSITIVE H NEGATIVE Urine Oxycodone Screen NEGATIVE NEGATIVE Urine Methadone Screen NEGATIVE NEGATIVE Urine Propoxyphene Screen NEGATIVE NEGATIVE Urine Barbiturates Screen NEGATIVE NEGATIVE Ur Tricyclic Antidepressants Screen NEGATIVE NEGATIVE Urine Phencyclidine Screen NEGATIVE NEGATIVE Urine Amphetamines Screen NEGATIVE NEGATIVE Urine Methamphetamines Screen NEGATIVE NEGATIVE Urine Benzodiazepines Screen NEGATIVE NEGATIVE Urine Cocaine Screen NEGATIVE NEGATIVE Urine Cannabinoids Screen NEGATIVE NEGATIVE My Orders Orders - WILFRED CAMPBELL DO Ed Iv/Invasive Line Start (08/30/22 20:23) Monitor-Rhythm Ecg Trace Only (08/30/22 20:23) Alcohol (08/30/22 20:23) Cbc With Automated Diff (08/30/22 20:23) Comprehensive Metabolic Panel (08/30/22 20:23) Drug Screen Stat (Urine) (08/30/22 20:23) Magnesium (08/30/22 20:23) Ua Culture If Indicated (08/30/22 20:23) Magnesium Oxide Tablet (Mag Ox Tablet) (08/30/22 21:30) Ketorolac Injection (Toradol Injection) (08/30/22 21:45) Straight Cath For Spec.-Adult (08/30/22 21:33) Hydralazine Injection (Apresoline Inject (08/30/22 21:45) Ketorolac Injection (Toradol Injection) (08/30/22 22:00) Hydralazine Tablet (Apresoline Tablet) (08/30/22 22:00) Nitroglycerin Ointment (Nitrobid Ointme (08/30/22 22:45) Medications Given in ED Current Medications Medications Dose Ordered Sig/Carl Route Start Time Stop Time Status Last Admin Dose Admin Hydralazine HCl 25 mg ONCE ONCE PO 08/30/22 22:00 08/30/22 22:02 DC 08/30/22 22:20 25 MG Ketorolac Tromethamine 60 mg ONCE ONCE IM 08/30/22 22:00 08/30/22 22:02 DC 08/30/22 22:20 60 MG Magnesium Oxide 1,600 mg ONCE ONCE PO 08/30/22 21:30 08/30/22 21:31 DC 08/30/22 21:45 1,600 MG Nitroglycerin 1 inch ONCE ONCE TOP 08/30/22 22:45 08/30/22 22:46 DC 08/30/22 22:51 1 INCH Vital Signs/I&O 08/30/22 08/30/22 20:22 20:22 Temp 36.9 Pulse 105 Resp 20 B/P (MAP) 196/92 (126) Pulse Ox 91 O2 Delivery Room Air Nasal Cannula O2 Flow Rate 2.00 Capillary Refill : Departure Impression Primary Impression: Non-compliance Additional Impressions: Chronic pain Hypertension Unable to care for self Memory impairment Disposition: 01 HOME, SELF-CARE Condition: Stable Departure-Patient Inst. Decision time for Depature: 22:19 Referrals: OLEGARIO ROSENTHAL MD (PCP/Family) Primary Care Physician Patient Instructions: CHRONIC PAIN, High Blood Pressure (DC) Add. Discharge Instructions: GO TO YOUR PHARMACY IN THE MORNING AND GET YOUR PRESCRIPTIONS FILLED. A PRESCRIPTION FOR PAIN MEDICATION WAS SENT THERE WHEN YOU WERE DISMISSED FROM THE HOSPITAL YESTERDAY YOU NEED TO TAKE ALL OF YOUR MEDICATIONS EVERY SINGLE DAY EXACTLY PRESCRIBED FOLLOW UP WITH YOUR DR ON THURSDAY FOR FURTHER CARE--CALL IN THE MORNING TO SCHEDULE AN APPOINTMENT All discharge instructions reviewed with patient and/or family. Voiced understanding. WILFRED CAMPBELL DO Aug 30, 2022 20:37
[2022-08-30 21:01] LABS: BASOPHILS # (AUTO) 0.1 10^3/uL (0.0-0.1); BASOPHILS % (AUTO) 1 % (0-10); EOSINOPHILS # (AUTO) 0.2 10^3/uL (0.0-0.3); EOSINOPHILS % (AUTO) 1 % (0-10); HEMATOCRIT 30 % (40-54); HEMOGLOBIN 9.9 g/dL (13.3-17.7); LYMPHOCYTES # (AUTO) 1.7 10^3/uL (1.0-4.0); LYMPHOCYTES % (AUTO) 15 % (12-44); MEAN CORPUSCULAR HEMOGLOBIN 32 pg (25-34); MEAN CORPUSCULAR HGB CONC 33 g/dL (32-36); MEAN CORPUSCULAR VOLUME 97 fL (80-99); MEAN PLATELET VOLUME 10.9 fL (9.0-12.2); MONOCYTES # (AUTO) 1.1 10^3/uL (0.0-1.0); MONOCYTES % (AUTO) 10 % (0-12); NEUTROPHILS % (AUTO) 73 % (42-75); PLATELET COUNT 227 10^3/uL (130-400); WHITE BLOOD COUNT 11.1 10^3/uL (4.3-11.0)
[2022-08-30 21:11] LABS: ALBUMIN 3.2 GM/DL (3.2-4.5); CHLORIDE 105 MMOL/L (98-107); POTASSIUM 3.7 MMOL/L (3.6-5.0); SODIUM 141 MMOL/L (135-145)
[2022-08-30 21:12] LABS: CALCIUM 8.9 MG/DL (8.5-10.1)
[2022-08-30 21:14] LABS: GLUCOSE 102 MG/DL (70-105); TOTAL PROTEIN 6.2 GM/DL (6.4-8.2)
[2022-08-30 21:15] LABS: CARBON DIOXIDE 25 MMOL/L (21-32)
[2022-08-30 21:16] LABS: BILIRUBIN,TOTAL 0.7 MG/DL (0.1-1.0)
[2022-08-30 21:17] LABS: ALKALINE PHOSPHATASE 96 U/L (40-136); CREATININE SERUM 0.72 MG/DL (0.60-1.30); GFR ESTIMATED 99
[2022-08-30 21:18] LABS: BUN/CREATININE RATIO 15
[2022-08-30 21:20] LABS: ALANINE AMINOTRANSFERASE 21 U/L (0-55); MAGNESIUM 1.3 MG/DL (1.6-2.4)
[2022-08-30] MEDS ORDERED: MAGNESIUM OXIDE (MAG-OX)400 MG TAB PO ONE (21:30)
[2022-08-30] MEDS ORDERED: hydrALAZINE (APESOLINE) 20 MG/ML VIAL IV ONE (21:45)
[2022-08-30] MEDS ORDERED: KETOROLAC 30 MG/ML VIAL IVP ONE (21:45)
[2022-08-30] MEDS ORDERED: KETOROLAC 60 MG/2 ML VIAL IM ONE (22:00)
[2022-08-30] MEDS ORDERED: hydrALAZINE (APRESOLINE) 25 MG TAB PO ONE (22:00)
[2022-08-30 22:17] LABS: BILIRUBIN,URINE NEGATIVE (NEGATIVE); CLARITY,URINE CLEAR; COLOR,URINE YELLOW; GLUCOSE, URINE (UA) NEGATIVE (NEGATIVE); KETONES,URINE NEGATIVE (NEGATIVE); LEUKOCYTE ESTERASE ,URINE NEGATIVE (NEGATIVE); NITRITE,URINE NEGATIVE (NEGATIVE); PROTEIN,URINE TRACE (NEGATIVE)
[2022-08-30 22:25] LABS: BACTERIA,URINE TRACE /HPF; HYALINE CASTS, URINE 0-2 /LPF; WBC,URINE 0-2 /HPF
[2022-08-30 22:30] LABS: AMPHETAMINE SCREEN, URINE NEGATIVE (NEGATIVE); BARBITURATE SCREEN URINE NEGATIVE (NEGATIVE); BENZODIAZEPINES SCREEN URINE NEGATIVE (NEGATIVE); CANNABINOID SCREEN, URINE NEGATIVE (NEGATIVE); COCAINE SCREEN URINE NEGATIVE (NEGATIVE); METHADONE STAT NEGATIVE (NEGATIVE); OPIATE SCREEN URINE POSITIVE (NEGATIVE); OXYCODONE STAT NEGATIVE (NEGATIVE); PROPOXYPHENE STAT NEGATIVE (NEGATIVE); TRICYCLIC ANTIDEPRESSANTS SCRE NEGATIVE (NEGATIVE)
[2022-08-30] MEDS ORDERED: NITROGLYCERIN 2% OINT 1 GM UNIT DOSE PACKET TOP ONE (22:45)
[2022-08-31 03:07] VITALS: BP 182/91
[2022-08-31] MEDS ORDERED: hydrALAZINE (APESOLINE) 20 MG/ML VIAL IV PRN (04:15)
[2022-08-31 04:49] VITALS: BP 176/98
[2022-08-31] MEDS: CATHETER FLUSH 10 ML SYR IVP SCH ×3 (05:41→21:00)
[2022-08-31] MEDS: NITROGLYCERIN 2% OINT 1 GM UNIT DOSE PACKET TOP SCH ×3 (05:41→17:14)
[2022-08-31 06:08] LABS: BASOPHILS # (AUTO) 0.1 10^3/uL (0.0-0.1); BASOPHILS % (AUTO) 1 % (0-10); EOSINOPHILS # (AUTO) 0.2 10^3/uL (0.0-0.3); EOSINOPHILS % (AUTO) 2 % (0-10); HEMATOCRIT 32 % (40-54); HEMOGLOBIN 10.5 g/dL (13.3-17.7); LYMPHOCYTES # (AUTO) 1.9 10^3/uL (1.0-4.0); LYMPHOCYTES % (AUTO) 20 % (12-44); MEAN CORPUSCULAR HEMOGLOBIN 32 pg (25-34); MEAN CORPUSCULAR HGB CONC 33 g/dL (32-36); MEAN CORPUSCULAR VOLUME 97 fL (80-99); MEAN PLATELET VOLUME 11.4 fL (9.0-12.2); MONOCYTES # (AUTO) 0.9 10^3/uL (0.0-1.0); MONOCYTES % (AUTO) 10 % (0-12); NEUTROPHILS # (AUTO) 6.5 10^3/uL (1.8-7.8); NEUTROPHILS % (AUTO) 67 % (42-75); PLATELET COUNT 259 10^3/uL (130-400); WHITE BLOOD COUNT 9.6 10^3/uL (4.3-11.0)
[2022-08-31 06:37] LABS: CALCIUM 9.1 MG/DL (8.5-10.1); CREATININE SERUM 0.75 MG/DL (0.60-1.30); POTASSIUM 3.5 MMOL/L (3.6-5.0)
[2022-08-31 07:23] VITALS: BP 172/99
--- NOTE | 2022-08-31 09:39 | History & Physical-Hospitalist ---
History of Present Illness HPI/Chief Complaint Patient is a 71-year-old white maleWho was discharged 2 days ago after admission for acute coronary syndrome or cardiac cath only revealed mild to moderate disease for which cardiology recommended conservative medical management. He is bedfast nonambulatory secondary to multiple failed past hip surgeries with a lack of acetabuli bilaterally. he return to the emergency room requesting pain medication even though he had had medication called out to up off the care. He was apparently unaware of this. His son had been somewhat helping to care for him but is now in shelter so that he has no help at home. He actually called 911 while he was in the emergency room for which the police came out to investigate according to the ER physician. His vital signs were stable he did not voice any respiratory symptoms to me although there may have been a complaint of respiratory issues when he presented the emergency room on the intake summary. He has had no chills or fever he was alert and oriented x3 this morning voicing no complaints. He was admitted for social admission and is agreeable to fpc placement. He apparently had a place at our [facility] but he did not show up on Thursday and they have subsequently filled his bed space. He denies chest pain shortness of breath night sweats chills or fever and denies pain anywhere. Date Seen 08/31/22 Time Seen by a Provider: 07:30 Attending Physician Uriel Cardona MD PCP Admitting Physician: Rob Freeman MD Attending Physician: Rob Freeman MD Referring Physician Date of Admission Aug 31, 2022 at 01:10 Home Medications & Allergies Home Medications Reviewed patient Home Medication Reconciliation performed by pharmacy medication reconciliations atmospheric technician and/or nursing. Patients Allergies have been reviewed. Allergies Allergies Coded Allergies codeine (Verified Allergy, Mild, HIVES...TAKES OXYCODONE & MS CONTIN AT HOME, 03/11/19) streptokinase (Verified Allergy, Unknown, 03/11/19) Past Nzcloya-Gjwkgf-Zcoibg Hx Patient Social History Tobacco Use?: Yes Tobacco type used: Cigarettes Smoking Status: Former Smoker Use of E-Cig and/or Vaping dev: No Substance use?: No Alcohol Use?: No Pt feels they are or have been: Unable to obtain Immunizations Up To Date Date of Influenza Vaccine: Aug 04, 2022 First/Initial COVID19 Vaccinat: 2021 Tetanus Booster (TDap): More Than 5 Years Hepatitis A: No Hepatitis B: No PED Vaccines UTD: No Date of Pneumonia Vaccine: Jul 03, 2018 Seasonal Allergies Seasonal Allergies: No Current Status Advance Directives: Yes Advance Directive Location: Scanned into EMR Communicates: Verbally Primary Language: Bahraini Preferred Spoken Language: Bahraini Is interpretation needed?: No Implanted or Applied Medical D: Orthopedic hardware, Pacemaker Past Medical History Surgeries: Abdominal, Appendectomy, Cardiac, Defibrillator, Joint Replacement, Orthopedic, Pacemaker Asthma, COPD Currently Using CPAP: No Currently Using BIPAP: No Atrial Fibrillation, Chronic Edema/Swelling, Coronary Artery Disease, Congenital Heart Disease, Heart Attack, Hypertension, Irregular Heartbeat Neuropathy Sexually Transmitted Disease: No HIV/AIDS: No Neurogenic Bladder Abdominal Hernia, Chronic Constipation Arthritis, Chronic Back Pain, Fractures Diabetes, Insulin dep Dysphagia Loss of Vision: Denies Hearing Impairment: Hard of Hearing Suicide Attempts, Depression Recent Skin Changes Blood Disorders: No Adverse Reaction/Blood Tranf: Yes (HIGH FEVER AND CHILLS) PMHx: avascular necrosis of multiple joints Asthma Chronic nonhealing hip wounds SurgHx: 11 bilateral hip surgeries, removal of hardware is nonambulatory 3 back surgeries Neck surgery Bilateral carpal tunnel release Bilateral cubital tunnel release Family Medical History COPD Diabetes mellitus No Pertinent Family Hx Adopted, unknown FH Review of Systems Constitutional: see HPI Physical Exam Physical Exam Vital Signs Vital Signs - First Documented 08/30/22 20:22 Temp 36.9 Pulse 105 Resp 20 B/P (MAP) 196/92 (126) Pulse Ox 91 O2 Delivery Room Air O2 Flow Rate 2.00 Capillary Refill : Less Than 3 Seconds Height, Weight, BMI Height: 5'8.00" Weight: 170lbs. 8.0oz. 77.018254pg; 29.06 BMI Method:Stated General Appearance: No Apparent Distress Respiratory: Chest Non Tender, Lungs Clear, Normal Breath Sounds, No Accessory Muscle Use, No Respiratory Distress Cardiovascular: Regular Rate, Rhythm, No Edema, No Gallop, No JVD, No Murmur, Normal Peripheral Pulses Gastrointestinal: Normal Bowel Sounds, No Organomegaly, No Pulsatile Mass, Non Tender, Soft Results Results/Procedures Labs Laboratory Tests 08/30/22 20:51 08/31/22 05:27 Patient resulted labs reviewed. Assessment/Plan Admission Diagnosis 1. Inability to care for himself social admission for fpc placement. 2. Recent troponin elevation mild with nonobstructive coronary disease continue current medical management. 3. Immobility secondary to multiple failed bilateral hip surgery. Admission Status: Observation ROB FREEMAN MD Aug 31, 2022 09:39
[2022-08-31] MEDS ORDERED: ASPIRIN 325 MG (5 GR) TABLET PO NR (10:00)
[2022-08-31] MEDS ORDERED: RT-ALBUTEROL HFA 8.5 GM INHALER IH PRN (10:00)
[2022-08-31 11:10] VITALS: BP 160/79
[2022-08-31] MEDS: GABAPENTIN 300 MG (NEURONTIN) CAP PO SCH ×2 (12:08→21:00)
[2022-08-31] MEDS ORDERED: ASPIRIN E.C. 81 MG (ECOTRIN) TAB PO NR (12:30)
[2022-08-31 15:56] VITALS: BP 160/82
[2022-08-31] MEDS ORDERED: HYDROmorphone 2 MG/ML VIAL (DILAUDID) IV PRN (19:15)
[2022-08-31] MEDS ORDERED: HYDROmorphone 2 MG/ML VIAL (DILAUDID) ONE (19:18)
[2022-08-31 19:33] VITALS: BP 132/77
--- NOTE | 2022-08-31 20:24 | Progress Note - Hospitalist ---
Progress Note Addendum Progress Notes/Assess & Plan Date Seen 08/31/22 Time Seen by Provider: 07:50 Diagonsis/Assessment & Plan I was initially contacted by the nurse late afternoon that the patient did have a golf ball size felt to be hematoma over the right groin where he had had cardiac cath access last week. He was noticing some mild discomfort. An order for ultrasound in the morning when sono was available was ordered to evaluate for hematoma versus false aneurysm. I was then contacted again around 730 that the patient had experienced increase in pain and they noted significant expansion of the hematoma as well as bruising going down the thigh with induration. He was still hemodynamically stable his heart rate was regular in the 90s which was an increase from earlier in the day with a blood pressure of 130/78.I did discuss my concerns first referred to the trauma surgeons who then referred me to cardiovascular surgeon on-call at [facility]. I was then referred to the emergency room as a stated definitive study i.e. sonography need to be performed to in their words document the need for endovascular repair. Upon my arrival with manual and sandbag compression the patient was alert and oriented his heart rate was 98 and regular with a blood pressure of 130/88. His right foot toe was warm with a 1 over/4 dorsalis pedis pulse with a large area of induration over the Right groin significantly expanded according to the nurse who had first noted this earlier this afternoon. EMS has been notified the patient is going to be going by air being excepted by [facility] emergency room physician whose name escapes me at this time who I spoke with just prior to sitting down to dictate this note as history highly suggests a leaking false aneurysm. At the time of this dictation the patient is hemodynamically stable. I had ordered a CBC but this may not be done before EMS arrives. After request that staff have found a FemoStop and this is being applied prior to air transportation after noting that Our ambulance service was not going to be readily available. complex medical management and discussion with multiple providers at [facility] patient evaluation discussion with staff as well as discussion with her own on-call senior executive assistant 90-minute care time spent. JUANITO FREEMAN MD Aug 31, 2022 20:24
[2022-08-31] MEDS: MELATONIN 3 MG TABLET PO SCH (21:00)
--- NOTE | 2022-08-31 21:12 | Diagnostic Imaging Report ---
INDICATION: Right groin hematoma. EXAMINATION: Focused ultrasonography was performed in the right groin with grayscale and color-flow technique. FINDINGS: There is an approximately 4.9 x 1.7 x 4.1 cm hematoma in the right groin with surrounding edema and possible hemorrhage. There is, however, no evidence of internal blood flow within this hematoma to indicate pseudoaneurysm. IMPRESSION: Right groin hematoma without evidence of internal flow to indicate pseudoaneurysm. Dictated by: Dictated on workstation # [id number]
[2022-09-01 01:11] LABS: BASOPHILS # (AUTO) 0.1 10^3/uL (0.0-0.1); BASOPHILS % (AUTO) 1 % (0-10); EOSINOPHILS # (AUTO) 0.6 10^3/uL (0.0-0.3); EOSINOPHILS % (AUTO) 6 % (0-10); HEMATOCRIT 29 % (40-54); HEMOGLOBIN 9.4 g/dL (13.3-17.7); LYMPHOCYTES % (AUTO) 32 % (12-44); MEAN CORPUSCULAR HEMOGLOBIN 32 pg (25-34); MEAN CORPUSCULAR HGB CONC 32 g/dL (32-36); MEAN CORPUSCULAR VOLUME 100 fL (80-99); MEAN PLATELET VOLUME 11.2 fL (9.0-12.2); MONOCYTES # (AUTO) 1.1 10^3/uL (0.0-1.0); MONOCYTES % (AUTO) 11 % (0-12); NEUTROPHILS # (AUTO) 4.6 10^3/uL (1.8-7.8); NEUTROPHILS % (AUTO) 49 % (42-75); PLATELET COUNT 251 10^3/uL (130-400); WHITE BLOOD COUNT 9.4 10^3/uL (4.3-11.0)
[2022-09-01] MEDS: NITROGLYCERIN 2% OINT 1 GM UNIT DOSE PACKET TOP SCH ×5 (01:18→23:47)
[2022-09-01] MEDS ORDERED: NS IV 500 ML 500 ML IV PRN (03:30)
--- NOTE | 2022-09-01 04:35 | Tele-ICU Consult ---
Progress Note 71 year old male with ACS s/p cath today complicated by right groin hematoma who was intiiatlly sent to [facility] for evaluation for possible pseudoaneurysm. Apparently, arterial US negative for pseudoanureysm so sent back to present hospital for further evaluation. Currenlty, right groin pain controlled. Discussed with RN at bedside Reviewed labs, vitals Monitored patient remotely No further intervention needed at this time. Focused Exam Height, Weight, BMI Height: 5'8.00" Weight: 170lbs. 8.0oz. 77.789076qw; 29.06 BMI Method:Stated MAHESH SCHULTZ MD Sep 01, 2022 04:35
[2022-09-01 04:39] LABS: BASOPHILS # (AUTO) 0.1 10^3/uL (0.0-0.1); BASOPHILS % (AUTO) 1 % (0-10); EOSINOPHILS # (AUTO) 0.7 10^3/uL (0.0-0.3); EOSINOPHILS % (AUTO) 8 % (0-10); HEMATOCRIT 27 % (40-54); HEMOGLOBIN 8.7 g/dL (13.3-17.7); LYMPHOCYTES # (AUTO) 2.8 10^3/uL (1.0-4.0); LYMPHOCYTES % (AUTO) 32 % (12-44); MEAN CORPUSCULAR HEMOGLOBIN 32 pg (25-34); MEAN CORPUSCULAR HGB CONC 33 g/dL (32-36); MEAN CORPUSCULAR VOLUME 97 fL (80-99); MEAN PLATELET VOLUME 11.3 fL (9.0-12.2); MONOCYTES % (AUTO) 11 % (0-12); NEUTROPHILS # (AUTO) 4.1 10^3/uL (1.8-7.8); NEUTROPHILS % (AUTO) 48 % (42-75); PLATELET COUNT 240 10^3/uL (130-400); WHITE BLOOD COUNT 8.6 10^3/uL (4.3-11.0)
[2022-09-01 05:06] LABS: CALCIUM 8.4 MG/DL (8.5-10.1); CREATININE SERUM 0.88 MG/DL (0.60-1.30); MAGNESIUM 1.5 MG/DL (1.6-2.4); POTASSIUM 3.7 MMOL/L (3.6-5.0)
[2022-09-01] MEDS: KCL 20 MEQ TAB (K-DUR) PO SCH (06:00)
[2022-09-01] MEDS: POTASSIUM CL 10MEQ/50ML IVPB 50 ML IV SCH (06:00)
[2022-09-01] MEDS: MAGNESIUM 1 GM/100 ML IVPB 100 ML IV SCH ×3 (06:00→08:01)
[2022-09-01] MEDS: CATHETER FLUSH 10 ML SYR IVP SCH ×3 (06:02→21:25)
[2022-09-01] MEDS: GABAPENTIN 300 MG (NEURONTIN) CAP PO SCH ×3 (07:59→21:23)
[2022-09-01] MEDS ORDERED: ASPIRIN E.C. 81 MG (ECOTRIN) TAB PO SCH (09:00)
[2022-09-01] MEDS ORDERED: CARB-254 OP (09:40)
[2022-09-01] MEDS ORDERED: OXYC5TAB PO (09:40)
--- NOTE | 2022-09-01 09:42 | Tele-ICU Consult ---
History of Present Illness History of Present Illness Date Seen by Provider: Sep 01, 2022 Time Seen by Provider: 09:38 Date of Admission (Tele-ICU Physician , consultation as per request of PCP Service provided via interactive audio and video telecommunOncoscope E-CARE system to a patient admitted to ICU bed in [facility]. Available chart/ vitals / labs / Images reviewed H&P is from ER notes Patient's information available about PMH, Shx, Fhx allergy reviewed inEMR. ROS as per chart and RN report Now in ICU, hemodynamically stable Video assessment done using teleICU camera, rest of exam as per RN Discussed with RN. Consultants: Hospital course: (08/28) 71/M- CCLab, A.C.S. conservative mgt. per cardiology. Arranged for Rehab unit post CCLab, lives alone can not ambulate, family issues w/no longer family to assist. (hx. mult failed bilat hip surgeries for degenerative hip disease.) Did not show up for rehab, bed then assigned to some other pt. (08/31) ER/ ICU. out of mult pain meds used for hx. degenerative hip disease. Large hematoma groin site from [facility]. FLOWN to [facility] for vascular consult. [facility] by [facility] just hematoma not psuedo anysm./ nor/ not arterial bleed in nature. (09/01) FLOWN back to [facility] ICU. A/P right groin hematoma , suyspected possible pseudoaneurysm. - arterial US negative for pseudoanureysm s/p [facility] vascular consult. - no interbention advised -right groin pain controlled. = cards folloe HTN - controlled Anemia - monitor hematoma site h/o asthma/ COPD - stable , cpm multiple hospital stays/ poor social conditions, Unable to care for self at home - as per PCP Lines : periph , (Central Line Necessity Reviewed) Fermin: external catheter OG: Nutrition: PO Analgesia: Anxiety/ delirium VTE Prophylaxis: monitor off AC now Stress Ulcer Prophylaxis: na Plans in collaboration with bedside consultants and IM MDs. Discussed with RN to reach out if any questions or concerns A total of 20 minutes of critical care time was devoted to this patient today, required to treat and/or prevent further deterioration of critical care condition ( as above ) . I am remotely monitoring this patient from another state. I am unable to do the bedside exam, and history/physical and pertinent information is taken from other notes in the computer and bedside staff. . Allergies and Home Medications Allergies Coded Allergies: codeine (Verified Allergy, Mild, HIVES...TAKES OXYCODONE & MS CONTIN AT HOME, 03/11/19) streptokinase (Verified Allergy, Unknown, 03/11/19) Home Medications Albuterol Sulfate 1 Puff Puff, 2 PUFF INH Q6H PRN for SHORTNESS OF BREATH, (Reported) Furosemide 40 Mg Tablet, 40 MG PO DAILY PRN for FLUID RETENTION, (Reported) Gabapentin 300 Mg Capsule, 300 MG PO TID, (Reported) Ibuprofen 200 Mg Tablet, 400 MG PO Q6H PRN for PAIN-MILD (1-4), (Reported) Menthol/Lanolin/Calamine/Znox 0.44 %-20.6 % Oint, 1 APPLIC TP DAILY PRN for SKIN IRRITATION, (Reported) Oxycodone Hcl 5 Mg Tab, 5 MG PO Q4HR PRN for PAIN-SEE DOSE INSTRUCTIONS Prescribed by: ZOHREH BHANDARI on 08/28/22 1034 Sertraline HCl 50 Mg Tablet, 50 MG PO HS, (Reported) FILLED 05-23-2022 #60/60 DAY SUPPLY Zolpidem Tartrate 10 Mg Tablet, 10 MG PO HS, (Reported) Past Medical/Social/Family Hx Patient Social History Tobacco Use?: Yes Tobacco type used: Cigarettes Smoking Status: Former Smoker Use of E-Cig and/or Vaping dev: No Substance use?: No Alcohol Use?: No Pt stated abuse/neglect: Unable to obtain Immunizations Up To Date Influenza Vaccine Up-to-Date: Yes; Up-to-Date First/Initial COVID19 Vaccinat: 2021 Tetanus Booster (TDap): More Than 5 Years Hepatitis A: No Hepatitis B: No TB Skin Test: None Date of Pneumonia Vaccine: Jul 03, 2018 Current Status Advance Directives: Yes Advance Directive Location: Scanned into EMR Communicates: Verbally Primary Language: [place] Preferred Spoken Language: [place] Is interpretation needed?: No Implanted or Applied Medical D: Orthopedic hardware, Pacemaker Past Medical History PMHx: avascular necrosis of multiple joints Asthma Chronic nonhealing hip wounds SurgHx: 11 bilateral hip surgeries, removal of hardware is nonambulatory 3 back surgeries Neck surgery Bilateral carpal tunnel release Bilateral cubital tunnel release Family Medical History Family Hx: Adopted, unknown FH Review of Systems Constitutional: see HPI Focused Exam Height, Weight, BMI Height: 5'8.00" Weight: 170lbs. 8.0oz. 77.320366tm; 29.88 BMI Method:Stated Exam Exam Patient acknowledged, consented, and participated in this virtual visit which was conducted using real time audio/video Vital Signs Date Time Temp Pulse Resp B/P (MAP) Pulse Ox O2 Delivery O2 Flow Rate FiO2 09/01/22 09:00 73 15 163/96 (118) 97 Room Air 09/01/22 08:00 73 21 166/99 (121) 96 Room Air 09/01/22 08:00 96 Room Air 09/01/22 07:00 74 09/01/22 07:00 71 14 143/88 (106) 97 Room Air 09/01/22 06:00 80 26 165/89 (114) 95 Room Air 09/01/22 05:00 82 16 168/94 (118) 98 Room Air 09/01/22 04:00 85 19 185/101 (129) 98 Room Air 09/01/22 04:00 97 Room Air 09/01/22 03:00 78 20 114/84 (94) 98 Room Air 09/01/22 02:00 78 22 162/116 (131) 96 Room Air 09/01/22 01:00 90 09/01/22 00:45 98 Room Air 08/31/22 19:33 36.9 91 22 132/77 (95) 96 Room Air 08/31/22 19:05 Room Air 08/31/22 19:00 91 08/31/22 15:56 36.6 92 19 160/82 (108) 97 Room Air 08/31/22 12:49 98 08/31/22 11:10 36.4 87 20 160/79 (106) 96 Room Air I & O 09/01/22 07:00 Intake Total 850 ml Output Total 150 ml Balance 700 ml Height & Weight Height: 5'8.00" Weight: 170lbs. 8.0oz. 77.809013kv; 29.88 BMI Method:Stated General Appearance: No Apparent Distress Respiratory: Chest Non Tender, Lungs Clear, Normal Breath Sounds, No Accessory Muscle Use, No Respiratory Distress Cardiovascular: Regular Rate, Rhythm, No Edema, No Gallop, No JVD, No Murmur, Normal Peripheral Pulses Capillary Refill: Less Than 3 Seconds Results Lab Laboratory Tests 08/30/22 20:51 08/31/22 05:27 09/01/22 01:00 09/01/22 04:10 Assessment/Plan Assessment/Plan 1 CHRISTI MURRAY MD Sep 01, 2022 09:42
[2022-09-01] MEDS: MICONAZOLE 2% POWDER (DESENEX AF) 90 GM TOP SCH ×2 (12:27→21:23)
[2022-09-01] MEDS ORDERED: fentaNYL INJ 100 MCG/2 ML AMP ONE (14:29)
--- NOTE | 2022-09-01 14:30 | Progress Note ---
Subjective Subjective/Events-last exam Pt seen at 09, went to [facility] ER last night and was sent back to [facility] [place]. Per nursing, his groin hematoma appears stable. He has not been hypotensive and his hemoglobin is low but stable. He says he feels okay, but does have some persistent pain in his right hip area where the hematoma is. Objective Exam Last Set of Vital Signs Vital Signs Date Time Temp Pulse Resp B/P (MAP) Pulse Ox O2 Delivery O2 Flow Rate FiO2 09/01/22 12:29 85 09/01/22 11:00 96 Room Air 09/01/22 11:00 36.4 20 155/74 (101) 09/01/22 09:39 0.00 Capillary Refill : Less Than 3 Seconds I&O Intake and Output 09/01/22 00:00 Intake Total 690 ml Balance 690 ml Intake Oral 690 ml # Voids 1 # Bowel Movements 2 Daily Weight Change No General: Alert, No Acute Distress Lungs: Clear to Auscultation, Normal Air Movement Heart: Regular Rate Abdomen: Normal Bowel Sounds, Soft Skin: Other (large bruise over right groin/thigh that has not moved past lines previously drawn) Psych/Mental Status: Mood NL Results/Procedures Lab Laboratory Tests 09/01/22 01:00: White Blood Count 9.4, Red Blood Count 2.91L, Hemoglobin 9.4L, Hematocrit 29L, Mean Corpuscular Volume 100H, Mean Corpuscular Hemoglobin 32, Mean Corpuscular Hemoglobin Concent 32, Red Cell Distribution Width 13.9, Platelet Count 251, Mean Platelet Volume 11.2, Immature Granulocyte % (Auto) 0, Neutrophils (%) (Auto) 49, Lymphocytes (%) (Auto) 32, Monocytes (%) (Auto) 11, Eosinophils (%) (Auto) 6, Basophils (%) (Auto) 1, Neutrophils # (Auto) 4.6, Lymphocytes # (Auto) 3.0, Monocytes # (Auto) 1.1H, Eosinophils # (Auto) 0.6H, Basophils # (Auto) 0.1, Immature Granulocyte # (Auto) 0.0 09/01/22 04:10: White Blood Count 8.6, Red Blood Count 2.73L, Hemoglobin 8.7L, Hematocrit 27L, Mean Corpuscular Volume 97, Mean Corpuscular Hemoglobin 32, Mean Corpuscular Hemoglobin Concent 33, Red Cell Distribution Width 13.8, Platelet Count 240, Mean Platelet Volume 11.3, Immature Granulocyte % (Auto) 0, Neutrophils (%) (Auto) 48, Lymphocytes (%) (Auto) 32, Monocytes (%) (Auto) 11, Eosinophils (%) (Auto) 8, Basophils (%) (Auto) 1, Neutrophils # (Auto) 4.1, Lymphocytes # (Auto) 2.8, Monocytes # (Auto) 1.0, Eosinophils # (Auto) 0.7H, Basophils # (Auto) 0.1, Immature Granulocyte # (Auto) 0.0, Sodium Level 140, Potassium Level 3.7, Chloride Level 105, Carbon Dioxide Level 23, Anion Gap 12, Blood Urea Nitrogen 19H, Creatinine 0.88, Estimat Glomerular Filtration Rate 93, BUN/Creatinine Ratio 22, Glucose Level 98, Calcium Level 8.4L, Magnesium Level 1.5L Assessment/Plan Assessment/Plan (1) Hematoma Status: Acute Assessment & Plan: Had cardiac cath 08/26/22 when admitted with chest pain, found to have mild to moderate nonobstructive CAD, after being admitted, had increased swelling in right groin, was sent to [facility] last night for concern of pseudo aneurysm and was transferred back to [facility]. This morning at time of my initial exam, stable and without increased area, transferred to floor, [facility], after lunch his nurse notified me that the area was getting more swollen and more tender, discussed with Dr. Trevino and transferred back to ICU and oil field laborer notified. CBC pending. (2) Unable to care for self Status: Chronic Assessment & Plan: Nonambulatory at baseline due to failed hip replacements/infections. He does not want to go to [facility], social work has been consulted. APS has been notified previously of concerns. He states his electric wheelchair is still broken (for months) and he cannot get out of the house, but that he is using his manual wheelchair. (3) COPD (chronic obstructive pulmonary disease) Status: Chronic Assessment & Plan: Albuterol prn (4) Hypertension Status: Acute Qualifiers: Qualified Codes: I10 - Essential (primary) hypertension (5) Chronic pain Status: Chronic Assessment & Plan: Home gabapentin and oxycodone. Hold NSAID due to bleeding. (6) DVT prophylaxis Status: Acute Assessment & Plan: No pharmacologic due to large hematoma ARIS FRANCIS MD Sep 01, 2022 14:30
[2022-09-01] MEDS ORDERED: fentaNYL INJ 100 MCG/2 ML AMP IVP ONE ×2 (14:35→15:00)
[2022-09-01 15:19] LABS: HEMATOCRIT 29 % (40-54); HEMOGLOBIN 9.3 g/dL (13.3-17.7); MEAN CORPUSCULAR HEMOGLOBIN 32 pg (25-34); MEAN CORPUSCULAR HGB CONC 32 g/dL (32-36); MEAN CORPUSCULAR VOLUME 100 fL (80-99); MEAN PLATELET VOLUME 11.1 fL (9.0-12.2); PLATELET COUNT 274 10^3/uL (130-400); WHITE BLOOD COUNT 8.2 10^3/uL (4.3-11.0)
--- NOTE | 2022-09-01 15:57 | Diagnostic Imaging Report ---
INDICATION: Right lower extremity arterial Doppler. INDICATION: Leg pain and swelling. TECHNIQUE: Spectral and color-flow imaging of the arterial system of the right groin was performed. FINDINGS: The recent exam performed yesterday noted a 4.9 x 1.7 x 4.1 cm hematoma in the right groin with surrounding edema. There was no evidence for active bleeding, however, nor was there any sign of pseudoaneurysm. On this exam, those findings are again evident and do not seem to have changed significantly. There is still good arterial blood flow through the common femoral artery and vein. There is no sign of a pseudoaneurysm or any active bleeding. The hematoma noted previously does not appear to have changed significantly. IMPRESSION: 1. When compared to the previous exam, there does not appear to have been any significant change. There is still a sizable hematoma present but there is no active bleeding or pseudoaneurysm formation. 2. These results were discussed with Dr. Kiki Ying. Dictated by: Dictated on workstation # [id number]
[2022-09-01] MEDS: HYDROmorphone 2 MG/ML VIAL (DILAUDID) IV PRN ×2 (16:04→23:53)
--- NOTE | 2022-09-01 16:34 | Consultation-Cardiology ---
HPI-Cardiology Cardiology Consultation Date of Consultation 09/01/22 Date of Admission Time Seen by Provider: 16:28 Indication: Right groin hematoma HPI 71-year-old gentleman with history of coronary artery disease, cardiac catheterization carried out by Dr. Houser on August 26, 2022. Patient returned to the hospital on August 31, 2022 complaining of right groin pain. Patient is nonambulatory secondary to multiple failed past hip surgery. He has been complaining of generalized pain. He was noted to have large hematoma in the right groin. It was felt that it could be a pseudoaneurysm, in the evening it became worse and had more extension of hematoma and there was a concern about ruptured pseudoaneurysm. I recommended transferring the patient as soon as possible to a tertiary care center for vascular surgery evaluation. Patient was transferred to [facility] and he was seen in the emergency room and sent back to [place] due to the lack of pseudoaneurysm. This afternoon the hematoma became bigger. Gear [employer] team were called and they held manual pressure. He had ultrasound done yesterday and today which showed hematoma with no pseudoaneurysm. H&H has been stable but the area is still having significant bruising and pain. 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 Smoking Status: Former Smoker Type Used: Cigarettes 2nd Hand Smoke Exposure: Yes Recent Hopitalizations: No Have you traveled recently?: No Alcohol Use?: No Immunizations Up To Date Tetanus Booster (TDap): Less than 5yrs Date of Pneumonia Vaccine: Jul 03, 2018 Date of Influenza Vaccine: Aug 04, 2022 Past Medical History Discussed below Family Medical History Significant Family History: No Pertinent Family Hx Family History: COPD Diabetes mellitus Review of Systems-General Review of Systems Constitutional: see HPI, malaise, weakness EENTM: see HPI, no symptoms reported Respiratory: no symptoms reported, see HPI Cardiovascular: see HPI Gastrointestinal: no symptoms reported, see HPI Genitourinary: no symptoms reported, see HPI Musculoskeletal: no symptoms reported, see HPI Skin: no symptoms reported, see HPI Psychiatric/Neurological: No Symptoms Reported, See HPI Reviewed Test Results Reviewed Test Results Lab Laboratory Tests Test 09/01/22 01:00 09/01/22 04:10 09/01/22 15:08 Range/Units White Blood Count 9.4 8.6 8.2 4.3-11.0 10^3/uL Red Blood Count 2.91 L 2.73 L 2.90 L 4.30-5.52 10^6/uL Hemoglobin 9.4 L 8.7 L 9.3 L 13.3-17.7 g/dL Hematocrit 29 L 27 L 29 L 40-54 % Mean Corpuscular Volume 100 H 97 100 H 80-99 fL Mean Corpuscular Hemoglobin 32 32 32 25-34 pg Mean Corpuscular Hemoglobin Concent 32 33 32 32-36 g/dL Red Cell Distribution Width 13.9 13.8 13.8 10.0-14.5 % Platelet Count 251 240 274 130-400 10^3/uL Mean Platelet Volume 11.2 11.3 11.1 9.0-12.2 fL Immature Granulocyte % (Auto) 0 0 % Neutrophils (%) (Auto) 49 48 42-75 % Lymphocytes (%) (Auto) 32 32 12-44 % Monocytes (%) (Auto) 11 11 0-12 % Eosinophils (%) (Auto) 6 8 0-10 % Basophils (%) (Auto) 1 1 0-10 % Neutrophils # (Auto) 4.6 4.1 1.8-7.8 10^3/uL Lymphocytes # (Auto) 3.0 2.8 1.0-4.0 10^3/uL Monocytes # (Auto) 1.1 H 1.0 0.0-1.0 10^3/uL Eosinophils # (Auto) 0.6 H 0.7 H 0.0-0.3 10^3/uL Basophils # (Auto) 0.1 0.1 0.0-0.1 10^3/uL Immature Granulocyte # (Auto) 0.0 0.0 0.0-0.1 10^3/uL Sodium Level 140 135-145 MMOL/L Potassium Level 3.7 3.6-5.0 MMOL/L Chloride Level 105 98-107 MMOL/L Carbon Dioxide Level 23 21-32 MMOL/L Anion Gap 12 5-14 MMOL/L Blood Urea Nitrogen 19 H 7-18 MG/DL Creatinine 0.88 0.60-1.30 MG/DL Estimat Glomerular Filtration Rate 93 BUN/Creatinine Ratio 22 Glucose Level 98 70-105 MG/DL Calcium Level 8.4 L 8.5-10.1 MG/DL Magnesium Level 1.5 L 1.6-2.4 MG/DL Physical Exam Physical Exam Vital Signs Vital Signs - First Documented 08/30/22 20:22 Temp 36.9 Pulse 105 Resp 20 B/P (MAP) 196/92 (126) Pulse Ox 91 O2 Delivery Room Air O2 Flow Rate 2.00 Capillary Refill : Less Than 3 Seconds Height, Weight, BMI Height: 5'8.00" Weight: 170lbs. 8.0oz. [id number]; 29.88 BMI Method:Stated General Appearance: No Apparent Distress Respiratory: Chest Non Tender, Lungs Clear, Normal Breath Sounds, No Accessory Muscle Use, No Respiratory Distress Cardiovascular: Regular Rate, Rhythm, No Edema, No Gallop, No JVD, No Murmur, Normal Peripheral Pulses Gastrointestinal: Normal Bowel Sounds, No Organomegaly, No Pulsatile Mass, Non Tender, Soft A/P-Cardiology Admission Diagnosis Right groin hematoma Chest pain Coronary artery disease Hypertension Assessment/Plan Right groin large hematoma, manual pressure applied. H&H monitored closely Had an ultrasound to the groin. I will evaluate CT of the pelvis and right lower extremity and keep sandbag on the right groin. Chest pain, nonspecific etiology Patient had history of recurrent pain with difficult control. Cardiac catheterization showed no significant obstructive disease. Coronary artery disease, cardiac catheterization carried out in 2012 and 2014 with diffuse atherosclerotic plaques. Nonobstructive disease. Mild elevation in troponin, borderline. Cardiac catheterization was carried out on August 26, 2022 with nonobstructive coronary artery disease. iFR was done through the circumflex artery. Patient had a stress test done by Dr. Houser in July 2020 with no ischemia or infarction with a EF normal 2D echo done on August 26, 2022 with normal LV size and function. Ejection fraction 55 to 60%, grade 2 diastolic dysfunction, biatrial enlargement, PA pressure 15 mmHg Hypertension, continue to monitor blood pressure Hyperlipidemia, monitor lipids History of dual-chamber pacemaker due to sinus node dysfunction, he has history of sinus pause for 3.2 second. Last interrogation was done on August 16, 2022 with good sensing and capture activity. History of avascular necrosis of the hip, underwent multiple hip surgeries in the past and hip replacements. History of gastroesophageal reflux disease, COPD. Polysubstance use for pain control Previous history of tobaccoism SKYLA SQUIRES MD Sep 01, 2022 16:34
--- NOTE | 2022-09-01 17:26 | Diagnostic Imaging Report ---
PROCEDURE: CT pelvis without contrast. TECHNIQUE: Multiple contiguous axial images were obtained through the pelvis without the use of intravenous contrast. Sagittal and coronal reformations were performed. Auto Exposure Controls were utilized during the CT exam to meet ALARA standards for radiation dose reduction. INDICATION: Right groin pain and swelling. FINDINGS: There is edema in the right leg, primarily in the subcutaneous soft tissues. There is a multiloculated hematoma in the upper medial thigh adjacent to the proximal superficial femoral artery. There are postsurgical changes from resection of the femoral heads. Urinary bladder is normal. Prostate is not enlarged. Rectosigmoid colon is unremarkable. There is no intraperitoneal free air or free fluid. IMPRESSION: Right groin hematoma with right leg swelling. Duplex ultrasound would be more sensitive to determine if there is active pseudoaneurysm. Dictated by: Dictated on workstation # [id number]
[2022-09-01] MEDS: MELATONIN 3 MG TABLET PO SCH (21:23)
[2022-09-02] MEDS: HYDROmorphone 2 MG/ML VIAL (DILAUDID) IV PRN (03:52)
[2022-09-02 05:12] LABS: BASOPHILS # (AUTO) 0.1 10^3/uL (0.0-0.1); BASOPHILS % (AUTO) 1 % (0-10); EOSINOPHILS # (AUTO) 0.8 10^3/uL (0.0-0.3); EOSINOPHILS % (AUTO) 10 % (0-10); HEMATOCRIT 30 % (40-54); HEMOGLOBIN 9.2 g/dL (13.3-17.7); LYMPHOCYTES # (AUTO) 2.2 10^3/uL (1.0-4.0); LYMPHOCYTES % (AUTO) 29 % (12-44); MEAN CORPUSCULAR HEMOGLOBIN 32 pg (25-34); MEAN CORPUSCULAR HGB CONC 31 g/dL (32-36); MEAN CORPUSCULAR VOLUME 103 fL (80-99); MONOCYTES % (AUTO) 12 % (0-12); NEUTROPHILS # (AUTO) 3.7 10^3/uL (1.8-7.8); NEUTROPHILS % (AUTO) 47 % (42-75); PLATELET COUNT 256 10^3/uL (130-400); WHITE BLOOD COUNT 7.7 10^3/uL (4.3-11.0)
[2022-09-02 05:48] LABS: CALCIUM 8.5 MG/DL (8.5-10.1); CREATININE SERUM 0.73 MG/DL (0.60-1.30); MAGNESIUM 1.6 MG/DL (1.6-2.4); PHOSPHORUS 3.8 MG/DL (2.3-4.7); POTASSIUM 4.4 MMOL/L (3.6-5.0)
[2022-09-02] MEDS: MAGNESIUM 1 GM/100 ML IVPB 100 ML IV SCH ×3 (05:54→06:05)
[2022-09-02] MEDS: POTASSIUM CL 10MEQ/50ML IVPB 50 ML IV SCH (05:54)
[2022-09-02] MEDS: KCL 20 MEQ TAB (K-DUR) PO SCH (05:54)
[2022-09-02] MEDS ORDERED: MAGNESIUM 1 GM/100 ML IVPB 200 ML IV ONE (05:55)
[2022-09-02] MEDS: NITROGLYCERIN 2% OINT 1 GM UNIT DOSE PACKET TOP SCH (05:57)
[2022-09-02] MEDS: CATHETER FLUSH 10 ML SYR IVP SCH (05:58)
--- NOTE | 2022-09-02 07:38 | Cardiology Progress Note ---
Subjective Date Seen by Provider: Sep 02, 2022 Time Seen by Provider: 07:37 Subjective/Events-last exam Patient was seen at bedside, laying down comfortably. Groin appears to be stable. Review of Systems General: No Chills, No Night Sweats, No Fatigue, No Malaise, No Appetite, No Other HEENT: No Head Aches, No Visual Changes, No Eye Pain, No Ear Pain, No Dysphasia, No Sinus Congestion, No Post Nasal Drip, No Sore Throat, No Other Pulmonary: No Dyspnea, No Cough, No Pleuritic Chest Pain, No Other Cardiovascular: No: Chest Pain, Palpitations, Orthopnea, Paroxysmal Noc. Dyspnea, Edema, Lt Headedness, Other Objective-Cardiology Exam Last Set of Vital Signs Vital Signs 09/02/22 09/02/22 09/02/22 06:00 06:36 07:00 Temp 36.1 Pulse 88 Resp 25 B/P (MAP) 137/80 (97) Pulse Ox 96 O2 Delivery Nasal Cannula O2 Flow Rate 2.00 I&O Intake and Output 09/02/22 00:00 Intake Total 2090 ml Output Total 975 ml Balance 1115 ml Intake Oral 1890 ml IV Total 200 ml Output Urine Total 975 ml General: Alert, Cooperative, No Acute Distress HEENT: Atraumatic Neck: Supple, No JVD Lungs: Clear to Auscultation, Normal Air Movement Heart: Regular Rate, Normal S1, Normal S2 Abdomen: Normal Bowel Sounds, Soft Extremities: No Clubbing, No Cyanosis Skin: No Rashes, Other (large bruise over right groin/thigh that has not moved past lines previously drawn) Neuro: Normal Speech Psych/Mental Status: Mood NL Results Lab Laboratory Tests 09/01/22 15:08 09/02/22 04:20 A/P-Cardiology Admission Diagnosis Right groin hematoma Chest pain Coronary artery disease Hypertension Assessment/Plan Right groin hematoma, manual pressure applied. H&H monitored closely Had an ultrasound to the groin. CT of the pelvis showed hematoma. No other abnormality was noted H&H are stable Groin is stable. May go to telemetry Chest pain, nonspecific etiology Patient had history of recurrent pain with difficult control. Cardiac catheterization showed no significant obstructive disease. Coronary artery disease, cardiac catheterization carried out in 2012 and 2014 with diffuse atherosclerotic plaques. Nonobstructive disease. Mild elevation in troponin, borderline. Cardiac catheterization was carried out on August 26, 2022 with nonobstructive coronary artery disease. iFR was done through the circumflex artery. Patient had a stress test done by Dr. Houser in July 2020 with no ischemia or infarction with a EF normal 2D echo done on August 26, 2022 with normal LV size and function. Ejection fraction 55 to 60%, grade 2 diastolic dysfunction, biatrial enlargement, PA pressure 15 mmHg Hypertension, continue to monitor blood pressure Hyperlipidemia, monitor lipids History of dual-chamber pacemaker due to sinus node dysfunction, he has history of sinus pause for 3.2 second. Last interrogation was done on August 16, 2022 with good sensing and capture activity. History of avascular necrosis of the hip, underwent multiple hip surgeries in the past and hip replacements. History of gastroesophageal reflux disease, COPD. Polysubstance use for pain control Previous history of tobaccoism SKYLA SQUIRES MD Sep 02, 2022 07:38
[2022-09-02] MEDS: GABAPENTIN 300 MG (NEURONTIN) CAP PO SCH (08:10)
[2022-09-02] MEDS: MICONAZOLE 2% POWDER (DESENEX AF) 90 GM TOP SCH (08:12)
--- NOTE | 2022-09-02 11:21 | Discharge Summary ---
Discharge Summary Instructions for Patient Assessment/Instructions Follow up with primary provider within a week of discharge. Follow up with Cardiology as directed. [facility] Dis[facility] Diet for Home: Cardiac Diet Hospital Course Date of Admission: Aug 31, 2022 at 01:10 Admission Diagnosis : 1. Inability to care for himself social admission for usp placement. 2. Recent troponin elevation mild with nonobstructive coronary disease continue current medical management. 3. Immobility secondary to multiple failed bilateral hip surgery. Family Physician/Provider: Uriel Cardona MD Date of Discharge: 09/02/22 Discharge Diagnosis: (1) Hematoma Status: Acute Assessment & Plan: Had cardiac cath 08/26/22 when admitted with chest pain, found to have mild to moderate non-obstructive CAD, after being admitted, had increased swelling in right groin, was sent to [facility] for concern of pseudo aneurysm and was transferred back to [facility]. On 08/31/22 on exam, stable and without increased area, transferred to floor, however, after lunch his nurse notified me that the area was getting more swollen and more tender, discussed with Dr. Trevino and transferred back to ICU and medical laboratory technicians notified, repeat US showed stability and CT also. Hemoglobin remained stable. (2) Unable to care for self Status: Chronic Assessment & Plan: Nonambulatory at baseline due to failed hip replacements/infections. He does not want to go to snf, social work has been consulted. APS has been notified previously of concerns. He states his electric wheelchair is still broken (for months) and he cannot get out of the house, but that he is using his manual wheelchair. Home health ordered. (3) COPD (chronic obstructive pulmonary disease) Status: Chronic Assessment & Plan: Albuterol prn (4) Hypertension Status: Acute Qualifiers: Qualified Codes: I10 - Essential (primary) hypertension (5) Chronic pain Status: Chronic Assessment & Plan: Home gabapentin and oxycodone. Hold NSAID due to bleeding. Hospital Course: See discharge diagnosis. Labs and Pending Lab Test: Laboratory Tests 09/01/22 15:08: White Blood Count 8.2, Red Blood Count 2.90L, Hemoglobin 9.3L, Hematocrit 29L, Mean Corpuscular Volume 100H, Mean Corpuscular Hemoglobin 32, Mean Corpuscular Hemoglobin Concent 32, Red Cell Distribution Width 13.8, Platelet Count 274, Mean Platelet Volume 11.1 09/02/22 04:20: White Blood Count 7.7, Red Blood Count 2.88L, Hemoglobin 9.2L, Hematocrit 30L, Mean Corpuscular Volume 103H, Mean Corpuscular Hemoglobin 32, Mean Corpuscular Hemoglobin Concent 31L, Red Cell Distribution Width 14.0, Platelet Count 256, Mean Platelet Volume 11.0, Immature Granulocyte % (Auto) 0, Neutrophils (%) (Auto) 47, Lymphocytes (%) (Auto) 29, Monocytes (%) (Auto) 12, Eosinophils (%) (Auto) 10, Basophils (%) (Auto) 1, Neutrophils # (Auto) 3.7, Lymphocytes # (Auto) 2.2, Monocytes # (Auto) 1.0, Eosinophils # (Auto) 0.8H, Basophils # (Auto) 0.1, Immature Granulocyte # (Auto) 0.0, Sodium Level 136, Potassium Level 4.4, Chloride Level 104, Carbon Dioxide Level 22, Anion Gap 10, Blood Urea Nitrogen 15, Creatinine 0.73, Estimat Glomerular Filtration Rate 98, BUN/Creatinine Ratio 21, Glucose Level 105, Calcium Level 8.5, Phosphorus Level 3.8, Magnesium Level 1.6 Home Meds Active Reported Artificial Tears (Carboxymethylcellulose Sodium) 1 % Drops 1 Drop OP DAILY PRN Oxycodone HCl 5 Mg Tablet 5-10 Mg PO Q4H PRN Furosemide 40 Mg Tablet 40 Mg PO DAILY PRN Sertraline HCl 50 Mg Tablet 50 Mg PO DAILY FILLED 05-23-2022 #60/60 DAY SUPPLY Ambien (Zolpidem Tartrate) 10 Mg Tablet 10 Mg PO HS Neurontin (Gabapentin) 300 Mg Capsule 300 Mg PO TID Ventolin Hfa (Albuterol Sulfate) 1 Puff Puff 2 Puff INH Q6H PRN Patient Allergies: Coded Allergies: codeine (Verified Allergy, Mild, HIVES...TAKES OXYCODONE & MS CONTIN AT HOME, 03/11/19) streptokinase (Verified Allergy, Unknown, 03/11/19) Height (Feet): 5 Height (Inches): 8.00 Weight (Pounds): 170 Weight (Ounces): 8.0 Home Health Need/Face to Face Date of Face to Face: Sep 02, 2022 Clinical Findings: Non or partial weight bearing I have seen Pt [id number]: Yes Discharged To: Home Diagnosis/Conditions: See discharge diagnoses Patient is Homebound due to: Non-weight bearing Homebound Status Due to the above stated illness, injury or surgical procedure (medical condition or diagnosis) and associated clinical findings, the patient is homebound because of his/her inability to leave home except with aid of a supportive device and/or person AND leaving the home requires a considerable and taxing effort or is medically contraindicated. Pt req the following assistanc: Aid of another person, Wheelchair Home Health Nursing Orders Home Health Services Order: Nursing Services, Physical Therapy-Evaluate & Treat Home Health Infusion Therapy Line Start Date: Aug 30, 2022 Certify Stmt I certify that this patient is under my care and that I, a nurse practitioner or a physician; a bioinformatics assistant working with me, had a face to face encounter that - meets the physician face to face encounter requirements with this patient as dated. Discharge Physical Exam General: Alert, No Acute Distress Lungs: Clear to Auscultation, Normal Air Movement Heart: Regular Rate, No Murmurs Abdomen: Normal Bowel Sounds, Soft Skin: Other (large maroon to purple ecchymoses in right groin with no clear indurated edges at this time, mildly ttp) Neuro: Normal Speech Psych/Mental Status: Mood NL ARIS FRANCIS MD Sep 02, 2022 11:21
--- NOTE | 2022-09-04 14:55 | Physician Query Clarification ---
PQ-Present on Admission Admission/Discharge Admission Date: Aug 31, 2022 at 01:10 Discharge Date: Sep 02, 2022 at 12:25 Dr. Ying, Question: rt groin hematoma post heart cath was documented in Dr. Dumont's 08/31 PN @ 0750 . Can you specify if this condition was present on admission? Please document a response in Progress Note or Discharge Summary. 1. Yes - Condition was present at the time of inpatient admission. 2. No - Condition was not present at the time of inpatient admission and it developed during the inpatient stay. 3. W - Provider is unable to clinically determine whether condition was present on admission or not. 4. Other [please specify] PHYSICIAN RESPONSE Condition was Present on Admit: Yes In responding to this query, please exercise your independent professional judgment. The purpose of this communication is to more accurately reflect the complexity of your patients condition. The fact that a question is asked does not imply that any particular answer is desired or expected. Thank you for your timely response to this clarification. Requestors name: Destiny THIS PHYSICIAN QUERY FORM IS A PERMANENT PART OF THE MEDICAL RECORD DESTINY YOUNGBLOOD Sep 04, 2022 14:55 ARIS YING MD Sep 04, 2022 17:32
== END 2022-09-02 12:25 | disposition home health service (06) | DRG 921 ==
LOC: EDUNIT# 20:20 → ER 20:21 → 4TH 08-31 01:10 → ICU 08-31 20:15 → 4TH 09-01 00:09 → ICU 09-01 00:33 → 4TH 09-01 10:43 → ICU 09-01 15:20
PROVIDERS: ADMIT Internal Medicine; ATTEND Family Medicine
DX: I97.630 Postprocedural hematoma of a circulatory system organ or structure following a cardiac catheterization (principal); Z60.2 Problems related to living alone; Z74.01 Bed confinement status; G89.4 Chronic pain syndrome; I11.0 Hypertensive heart disease with heart failure; I50.9 Heart failure, unspecified; I48.91 Unspecified atrial fibrillation; Z89.622 Acquired absence of left hip joint; Z89.621 Acquired absence of right hip joint; R41.3 Other amnesia; D64.9 Anemia, unspecified; J44.9 Chronic obstructive pulmonary disease, unspecified; I25.10 Atherosclerotic heart disease of native coronary artery without angina pectoris; R07.9 Chest pain, unspecified; E11.40 Type 2 diabetes mellitus with diabetic neuropathy, unspecified; H91.90 Unspecified hearing loss, unspecified ear; Z91.199 Patient's noncompliance with other medical treatment and regimen due to unspecified reason; Z87.891 Personal history of nicotine dependence; I51.9 Heart disease, unspecified; I25.2 Old myocardial infarction; Z95.810 Presence of automatic (implantable) cardiac defibrillator; Z88.5 Allergy status to narcotic agent; Z88.8 Allergy status to other drugs, medicaments and biological substances
CPT/HCPCS: 36415; 51701; 72192; 80048; 80053; 80306; 80320; 81000; 83735; 84100; 85025; 85027; 93041; 93926; 94640

== ENCOUNTER 2022-09-05 22:38 | Emergency (ER) | payer MEDICARE, MEDICAID ==
[~2022-09-05] VITALS: Ht 172.7 cm; Wt 72.6 kg
[~2022-09-05 22:38] MED LIST changes: +CARB-254 OP; +OXYC5TAB PO
[2022-09-05 23:10] LABS: BASOPHILS # (AUTO) 0.1 10^3/uL (0.0-0.1); BASOPHILS % (AUTO) 1 % (0-10); EOSINOPHILS # (AUTO) 0.5 10^3/uL (0.0-0.3); EOSINOPHILS % (AUTO) 6 % (0-10); HEMATOCRIT 33 % (40-54); HEMOGLOBIN 10.6 g/dL (13.3-17.7); LYMPHOCYTES % (AUTO) 42 % (12-44); MEAN CORPUSCULAR HEMOGLOBIN 32 pg (25-34); MEAN CORPUSCULAR HGB CONC 33 g/dL (32-36); MEAN CORPUSCULAR VOLUME 97 fL (80-99); MEAN PLATELET VOLUME 10.3 fL (9.0-12.2); MONOCYTES % (AUTO) 11 % (0-12); NEUTROPHILS # (AUTO) 3.9 10^3/uL (1.8-7.8); NEUTROPHILS % (AUTO) 41 % (42-75); PLATELET COUNT 418 10^3/uL (130-400); WHITE BLOOD COUNT 9.5 10^3/uL (4.3-11.0)
[2022-09-05 23:26] LABS: INR 0.9 (0.8-1.4); PROTHROMBIN TIME PATIENT 12.7 SEC (12.2-14.7)
[2022-09-05 23:32] LABS: POTASSIUM 4.2 MMOL/L (3.6-5.0)
[2022-09-05 23:33] LABS: CALCIUM 9.2 MG/DL (8.5-10.1)
[2022-09-05 23:37] LABS: CREATININE SERUM 0.78 MG/DL (0.60-1.30)
--- NOTE | 2022-09-06 01:06 | ED General ---
General Chief Complaint: Lower Extremity Stated Complaint: SWELLING IN GROIN Nursing Triage Note: pt to room by [facility]. pt reports his right groin is "more swollen" than usual. states his "caregiver told him to come here." Source of Information: Patient (VERY PPOR HISTORIAN), Old Records (ADRIANWILFRED Gu ) History of Present Illness Date Seen by Provider: Sep 05, 2022 Time Seen by Provider: 22:55 Initial Comments PT ARRIVES VIA EMS FROM HOME INITIALLY ON ASKING PT WHY HE IS HERE, HE STATES HE DOESN'T KNOW. WHEN ASKED WHY HE CALLED THE AMBULANCE, HE STATES HE DOESN'T REMEMBER, AND DOES NOT REMEMBER CALLING THEM. WHEN ASKED IF HE HAS ANY COMPLAINTS, HE STATES HIS RIGHT GROIN IS SWOLLEN. HE VOICES NO OTHER COMPLAINTS. HE STATES HE TOOK AN OXYCODONE FOR HIS CHRONIC PAIN, BUT STATES HE DOES NOT REMEMBER WHEN HE TOOK THIS. 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 PT HAS REPEATEDLY REFUSED [facility] PLACEMENT AND MULTIPLE ATTEMPTS HAVE BEEN MADE FOR HOME HEALTH TO SEE PT, WHICH PT HAS LATER REFUSED. PT HAS HAD A MULTITUDE OF VISITS AND ADMITS HERE, ESPECIALLY IN THE LAST MONTH--6 VISITS SINCE JULY. PT IS EXTREMELY WELL KNOWN TO LOCAL EMS, POLICE AND FIRE DEPTS, PT CALLS "[phone]" MULTIPLE TIMES EVERY DAY, FOR EXTREMELY TRIVIAL AND NON-EMERGENT THINGS --SUCH HE WANTS THEM TO GET HIS REMOTE FOR HIM, ETC. HIS ELECTRIC WHEELCHAIR HAS REPORTEDLY BEEN BROKEN FOR MANY MONTHS. HE HAS NOT MADE ANY ATTEMPT TO GET IT FIXED OR GET A NEW ONE. PT HAS MANUAL WHEELCHAIR, BUT IS NOT ABLE TO TRANSFER IN AND OUT OF IT ON HIS OWN. PT WAS ADMITTED HERE 08/25/22-08/28/22 FOR CHEST PAIN AND HAD A CARDIAC CATH DONE ON 08/26/22. THERE WERE NO ACUTE FINDINGS AND MILD TO MODERATE, NON-OBSTRUCTIVE CORONARY ARTERY DISEASE AND NO INTERVENTION WAS DONE. ARRANGEMENTS WERE MADE FOR HIM TO GO TO [facility], THEN PT REFUSED, HE WAS THEN SENT BACK HOME WITH ARRANGEMENTS FOR HOME HEALTH, WHICH PT THEN LATER REFUSED ALSO. PT WAS RE-ADMITTED 08/31-09/02/22 DUE TO INABILITY TO CARE FOR SELF. PT DID DEVELOP A HEMATOMA TO RIGHT GROIN AT CARDIAC CATH SITE, AND THIS WAS EVALUATED HERE WITH ULTRASOUND X 2 --NEITHER ONE SHOWED ANY EVIDENCE OF PSEUDOANEURYSM. HE ALSO HAD A PELVIS CT WHICH SHOWED HEMATOMA. ADDITIONALLY HE WAS TRANSFERRED TO [place] FOR CV EVALUATION OF THIS AREA, AND TRANSFERRED BACK HERE. HE WAS AGAIN DISMISSED BACK TO HOME WITH ARRANGEMENTS FOR HOME HEALTH. PT STATES THIS "FELL THROUGH" AND CLAIMS HE HAS NOT HAD ANY HOME HEALTH SEE HIM SINCE HE WAS DISMISSED FROM THE HOSPITAL. 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 SEE OLD CHARTS FOR DETAILS PCP: DR. ROSENTHAL, [facility]. (WILFRED CAMPBELL DO) Allergies and Home Medications Allergies Coded Allergies: codeine (Verified Allergy, Mild, HIVES...TAKES OXYCODONE & MS CONTIN AT HOME, 03/11/19) streptokinase (Verified Allergy, Unknown, 03/11/19) Patient Home Medication List Home Medication List Reviewed: Yes (NI VALDES DO) Albuterol Sulfate (Ventolin Hfa) 1 Puff Puff, 2 PUFF INH Q6H PRN for SHORTNESS OF BREATH, (Reported) Entered as Reported by: KARINA RAPHAEL on 08/06/20 1606 Carboxymethylcellulose Sodium (Artificial Tears) 1 % Drops, 1 DROP OP DAILY PRN for DRY EYES, (Reported) Entered as Reported by: SHANDRA CLARKE on 09/01/22 0940 Furosemide (Furosemide) 40 Mg Tablet, 40 MG PO DAILY PRN for FLUID RETENTION, (Reported) Entered as Reported by: CHAVA HERRERA on 08/11/22 0828 Gabapentin (Neurontin) 300 Mg Capsule, 300 MG PO TID, (Reported) Entered as Reported by: KARINA RAPHAEL on 08/01/22 1517 Oxycodone HCl (Oxycodone HCl) 5 Mg Tablet, 5-10 MG PO Q4H PRN for PAIN-SEVERE (8-10), (Reported) Entered as Reported by: SHANDRA CLARKE on 09/01/22 0940 Sertraline HCl (Sertraline HCl) 50 Mg Tablet, 50 MG PO DAILY, (Reported) Entered as Reported by: CHAVA HERRERA on 08/11/22 0826 Zolpidem Tartrate (Ambien) 10 Mg Tablet, 10 MG PO HS, (Reported) Entered as Reported by: CHAVA HERRERA on 08/11/22 0826 Discontinued Medications Ibuprofen (Ibuprofen) 200 Mg Tablet, 400 MG PO Q6H PRN for PAIN-MILD (1-4), (Reported) Entered as Reported by: CHAVA HERRERA on 08/11/22 0828 Menthol/Lanolin/Calamine/Znox (Calmoseptine Ointment) 0.44 %-20.6 % Oint, 1 APPLIC TP DAILY PRN for SKIN IRRITATION, (Reported) Discontinued Reason: No Longer Taking Entered as Reported by: CHAVA HERRERA on 08/11/22 0833 Oxycodone Hcl (Oxyir Tablet) 5 Mg Tab, 5 MG PO Q4HR PRN for PAIN-SEE DOSE INSTRUCTIONS Discontinued Reason: No Longer Taking Prescribed by: ZOHREH BHANDARI on 08/28/22 1034 Review of Systems Review of Systems Constitutional: no symptoms reported Respiratory: No short of breath Cardiovascular: No chest pain Musculoskeletal: see HPI Skin: see HPI Psychiatric/Neurological: Denies Numbness, Denies Tingling (WILFRED CAMPBELL DO) Past Ukqdghk-Zgwsiz-Nokipe Hx Patient Social History Tobacco Use?: No Use of E-Cig and/or Vaping dev: No Substance use?: No Alcohol Use?: No (WILFRED CAMPBELL DO) Immunizations Up To Date Tetanus Booster (TDap): Less than 5yrs PED Vaccines UTD: No Influenza Vaccine Up-to-Date: Yes; Up-to-Date First/Initial COVID19 Vaccinat: 2021 (WILFRED CAMPBELL DO) Seasonal Allergies Seasonal Allergies: No (WILFRED CAMPBELL DO) Past Medical History Surgery/Hospitalization HX: SURGERIES; HIP REPLACEMENTS. Surgeries: Yes (BILAT HIP REPLACEMENTS X 22; WOUND DEBRIDEMENTS) Abdominal, Appendectomy, Cardiac, Defibrillator, Joint Replacement, Orthopedic, Pacemaker Respiratory: Yes Asthma, COPD Currently Using CPAP: No Currently Using BIPAP: No Cardiac: Yes (PACEMAKER, CARDIAC ARREST, SELF - REPORTED AL X 8; CHF) Atrial Fibrillation, Chronic Edema/Swelling, Coronary Artery Disease, Congenital Heart Disease, Heart Attack, Hypertension, Irregular Heartbeat Neurological: Yes Neuropathy Reproductive Disorders: No Sexually Transmitted Disease: No HIV/AIDS: No Genitourinary: Yes Neurogenic Bladder Gastrointestinal: Yes Abdominal Hernia, Chronic Constipation Musculoskeletal: Yes (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;CHRONIC PAIN) Arthritis, Chronic Back Pain, Fractures Endocrine: Yes Diabetes, Insulin dep HEENT: Yes Dysphagia Loss of Vision: Denies Hearing Impairment: Hard of Hearing Cancer: No Psychosocial: Yes Suicide Attempts, Depression Integumentary: Yes (recurrent wound issues) Recent Skin Changes Blood Disorders: No Adverse Reaction/Blood Tranf: Yes (HIGH FEVER AND CHILLS) (WILFRED CAMPBELL DO) Family Medical History COPD Diabetes mellitus No Pertinent Family Hx Adopted, unknown FH (WILFRED CAMPBELL DO) Physical Exam Vital Signs Vital Signs - First Documented 09/05/22 09/06/22 22:40 05:39 Temp 36.4 Pulse 88 Resp 24 B/P (MAP) 145/80 (101) Pulse Ox 96 O2 Delivery Room Air O2 Flow Rate 2.00 (NI VALDES DO) Vital Signs Capillary Refill : (WILFRED CAMPBELL DO) Height, Weight, BMI Height: 5'8.00" Weight: 170lbs. 8.0oz. 77.158217xd; 24.00 BMI Method:Stated General Appearance: No Apparent Distress, WD/WN, Obese, Other (DOES NOT APPEAR TO BE IN ANY DISCOMFORT OR DISTRESS WHATSOEVER. ) Respiratory: Normal Breath Sounds Cardiovascular: Regular Rate, Rhythm Gastrointestinal: Non Tender, Soft Extremity: Other (RIGHT GROIN AND PROXIMAL/MEDIAL THIGH WITH EXTENSIVE OLD BRUISING AND VERY FIRM, LARGE HEMATOMA PRESENT, WITH MODERATE SWELLING OF THE GROIN AND THIGH. AREA IS TENDER TO PALPATION. DISTAL MOTOR/SENSORY/VASCULAR IS INTACT. ) (WILFRED CAMPBELL DO) Progress/Results/Core Measures Suspected Sepsis SIRS Temperature: Pulse: 88 Respiratory Rate: 24 Laboratory Tests 09/05/22 23:00: White Blood Count 9.5 Blood Pressure 145 /80 Mean: 101 Laboratory Tests 09/05/22 23:00: Creatinine 0.78, INR Comment 0.9, Platelet Count 418H (WIFLRED CAMPBELL DO) Results/Orders Lab Results Laboratory Tests Test 09/05/22 23:00 Range/Units White Blood Count 9.5 4.3-11.0 10^3/uL Red Blood Count 3.37 L 4.30-5.52 10^6/uL Hemoglobin 10.6 L 13.3-17.7 g/dL Hematocrit 33 L 40-54 % Mean Corpuscular Volume 97 80-99 fL Mean Corpuscular Hemoglobin 32 25-34 pg Mean Corpuscular Hemoglobin Concent 33 32-36 g/dL Red Cell Distribution Width 13.8 10.0-14.5 % Platelet Count 418 H 130-400 10^3/uL Mean Platelet Volume 10.3 9.0-12.2 fL Immature Granulocyte % (Auto) 0 % Neutrophils (%) (Auto) 41 L 42-75 % Lymphocytes (%) (Auto) 42 12-44 % Monocytes (%) (Auto) 11 0-12 % Eosinophils (%) (Auto) 6 0-10 % Basophils (%) (Auto) 1 0-10 % Neutrophils # (Auto) 3.9 1.8-7.8 10^3/uL Lymphocytes # (Auto) 4.0 1.0-4.0 10^3/uL Monocytes # (Auto) 1.0 0.0-1.0 10^3/uL Eosinophils # (Auto) 0.5 H 0.0-0.3 10^3/uL Basophils # (Auto) 0.1 0.0-0.1 10^3/uL Immature Granulocyte # (Auto) 0.0 0.0-0.1 10^3/uL Prothrombin Time 12.7 12.2-14.7 SEC INR Comment 0.9 0.8-1.4 Activated Partial Thromboplast Time 24 24-35 SEC Sodium Level 137 135-145 MMOL/L Potassium Level 4.2 3.6-5.0 MMOL/L Chloride Level 98 98-107 MMOL/L Carbon Dioxide Level 24 21-32 MMOL/L Anion Gap 15 H 5-14 MMOL/L Blood Urea Nitrogen 13 7-18 MG/DL Creatinine 0.78 0.60-1.30 MG/DL Estimat Glomerular Filtration Rate 97 BUN/Creatinine Ratio 17 Glucose Level 84 70-105 MG/DL Calcium Level 9.2 8.5-10.1 MG/DL (NI VALDES DO) Vital Signs/I&O 09/05/22 09/06/22 22:40 05:39 Temp 36.4 Pulse 88 86 Resp 24 B/P (MAP) 145/80 (101) 148/82 (104) Pulse Ox 96 94 O2 Delivery Room Air O2 Flow Rate 2.00 2.00 2.00 (NI VALDES DO) Vital Signs/I&O Capillary Refill : (WILFRED CAMPBELL DO) Blood Pressure Mean: 101 Progress Note : Progress Note IV BLEW WHEN TRYING TO GIVE IV CONTRAST IN CT SCAN. PT CURRENTLY DOES NOT HAVE ANY COMPLAINTS. PT DOES NOT MEET ANY CRITERIA FOR ADMISSION. ALL OF PT'S LAB IS STABLE, AND ESS ENTIALLY UNCHANGED, IS HIS CT SCAN. HE HAS BEEN ADMITTED TWICE THIS MONTH, WITH THE LAST ADMIT BEING A SOCIAL ADMIT FOR [facility] PLACEMENT. WHICH HE AGAIN LATER REFUSED, ( AFTER INITIALLY AGREEING TO AND PT WAS ASKING FOR [facility] PLACEMENT INITIALLY) , PT HAS REPEATEDLY DONE ON PREVIOUS ADMITS. . ARRANGEMENTS WERE MADE AGAIN FOR PT TO HAVE HOME HEALTH. PT STATES TONIGHT THAT "IT FELL THROUGH". IS TYPICAL OF PATIENT, HE HAS MADE NO PRIOR ARRANGEMENTS FOR TRANSPORTATION BACK HOME IF HE IS NOT ADMITTED TO HOSPITAL. 0210--CALLED NUMBER FOR [facility]ZZ[facility], NO ANSWER, AND NO MAILBOX SET UP TO RECEIVE MESSAGES 0245--HAVE HAD MULTIPLE DISCUSSIONS WITH PT REGARDING TRANSPORTATION HOME. PT STATES HE HAS CALLED AND TALKED TO "LENNY COOL" WHO PT STATES IS HIS "CAREGIVER". HE STATES THAT LENNY SAID HE COULD PICK HIM UP ON THURSDAY MORNING. I HAVE MADE MULTIPLE ATTEMPTS TO CALL AND SPEAK WITH LENNY, BOTH ON HOSPITAL PHONE AND PT'S PERSONAL PHONE, AND HE HAS NOT ANSWERED AT ANY TIME, AND THERE IS NO MAILBOX SET UP TO LEAVE A MESSAGE. ON FURTHER INVESTIGATION, IS DISCOVERED THAT PT HAS SENT A TEXT TO LENNY, WHO HAS NEVER RESPONDED. PT NOW STATES HE DID NOT ACTUALLY "TALK" TO HIM, AND AFTER REVIEWING PT'S PHONE MESSAGES, THERE ARE NO MESSAGES OF ANY KIND FROM LENNY FOR THE LAST COUPLE OF DAYS--ONLY MESSAGES SENT TO HIM BY PT. PT'S SON IS CURRENTLY INCARCERATED IN [place], [place]. THERE ARE NO OTHER CONTACTS FOR PT. EMS CAPTAIN WAS CONTACTED BY INTERSTATE BUS DRIVER, REGARDING POSSIBLE EMS TRANSFER BACK HOME AND THEY DECLINE [facility] IS UNABLE TO TRANSPORT PT HE IS IMMOBILE, AND REQUIRES FULL ASSIST--UNABLE TO TRANSFER HIMSELF WITHOUT ASSIST. HOSPITAL TRANSPORTATION IS NOT AVAILABLE IT IS A WEEKEND NIGHT, AND THEY ONLY RUN DURING THE WEEK AND ONLY DURING THE DAY. 0349--CALLED NUMBER FOR [facility], AGAIN NO ANSWER AND NO MAILBOX SET UP TO RECEIVE MESSAGES. 0600--CARE TURNED OVER TO DR. VALDES, PENDING ARRANGEMENTS TO GET PT BACK HOME. (WILFRED CAMPBELL DO) Diagnostic Imaging Comments CT PELVIS---PER [facility] VIA FAX AT 0125 -RIGHT GROIN HEMATOMA IS SIMILAR IN SIZE MEASURING APPROXIMATELY 12 X 5 X 9 CM . THERE IS DECREASED RIGHT UPPER THIGH HEMATOMA. EXTENSIVE DESTRUCTIVE AND EROSIVE CHANGES TO BILATERAL HIPS ARE SIMILAR. Reviewed: Reviewed by Me (WILFRED CAMPBELL DO) Departure Communication (Admissions) Patient is hemodynamically stable, medically cleared at this time. No indication for admission. CT scan shows stable hematoma in his groin, actually improving. He is discharged home in otherwise stable condition. (NI VALDES DO) Impression Primary Impression: STABLE HEMATOMA TO RIGHT GROIN Additional Impressions: POST CARDIAC CATH HEMATOMA RIGHT GROIN Unable to care for self Chronic narcotic use Disposition: 01 HOME, SELF-CARE Condition: Stable Departure-Patient Inst. Decision time for Depature: 01:25 (WILFRED CAMPBELL DO) Referrals: OLEGARIO ROSENTHAL MD (PCP/Family) Primary Care Physician Patient Instructions: HEMATOMA Add. Discharge Instructions: CONTINUE YOUR MEDICATIONS PRESCRIBED. Follow-up with your primary doctor in the next 3 to 4 days. All discharge instructions reviewed with patient and/or family. Voiced understanding. WILFRED CAMPBELL DO Sep 06, 2022 01:06 NI VALDES DO Sep 06, 2022 07:03
[2022-09-06 07:09] VITALS: BP 161/83
--- NOTE | 2022-09-06 07:51 | Diagnostic Imaging Report ---
PROCEDURE: CT pelvis without contrast. TECHNIQUE: Multiple contiguous axial images were obtained through the pelvis without the use of intravenous contrast. Sagittal and coronal reformations were performed. Auto Exposure Controls were utilized during the CT exam to meet ALARA standards for radiation dose reduction. INDICATION: Groin swelling, post cardiac catheterization. COMPARISON: 09/01/2022 FINDINGS: Lobulated isoechoic and hyperdensities within the right inguinal region and anterior right thigh is again identified. This is slightly ill-defined and difficult to measure though measures near 12 x 9 x 5 cm. This has not significantly changed since the prior examination. Adjacent subcutaneous fat stranding within the proximal right thigh is again noted with associated skin thickening. This appears relatively stable from the prior examination. No definite new focal fluid collection. Scattered muscular atrophy is again noted. Extensive postsurgical changes involving the osseous structures, particularly the bilateral hips and femora again noted, appearing similar to the prior exam. No new acute osseous abnormality. Significant background vascular calcifications. No evidence of bowel obstruction within the oveup-as-itax. No significant free fluid within the lower pelvis. The remainder of examination appears similar. IMPRESSION: Right inguinal/groin hematoma is again identified. This is not significantly changed since the prior examination 5 days prior. Significant fat stranding and skin thickening within the proximal right lower extremity is again noted, appearing similar. Osseous structures are stable including extensive postsurgical changes without new acute osseous abnormality. Additional findings as above. Agree with preliminary interpretation. Dictated by: Dictated on workstation # [id number]
== END 2022-09-06 07:13 | disposition home or self-care (01) ==
LOC: EDUNIT# 22:38 → ER 22:39
DX: K91.871 Postprocedural hematoma of a digestive system organ or structure following other procedure (principal); Z74.1 Need for assistance with personal care; Z88.5 Allergy status to narcotic agent; E11.9 Type 2 diabetes mellitus without complications; E66.9 Obesity, unspecified; Z95.0 Presence of cardiac pacemaker; Z28.311 Partially vaccinated for COVID-19; Z68.24 Body mass index [BMI] 24.0-24.9, adult; Z79.4 Long term (current) use of insulin; Z90.49 Acquired absence of other specified parts of digestive tract; Z87.19 Personal history of other diseases of the digestive system; Z86.79 Personal history of other diseases of the circulatory system
CPT/HCPCS: 36415; 72192; 80048; 85025; 85610; 85730; 93041

== ENCOUNTER 2022-09-10 19:53 | Emergency (ER) | payer MEDICARE, MEDICAID ==
[~2022-09-10] VITALS: Ht 172.7 cm; Wt 73.9 kg
--- NOTE | 2022-09-10 20:37 | Diagnostic Imaging Report ---
INDICATION: Pain. COMPARISON: 09/28/2018. FINDINGS: Resection of the proximal femur. Cerclage wires. Severe mixed sclerosis and lucency across the knee, all identical in appearance from prior. No acute bony pathology. There is bony demineralization and deformities to the hip, chronic. 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 IMPRESSION: Extensive stable chronic findings, as described. No acute abnormality or change apparent. Dictated by: Dictated on workstation # [id number]
--- NOTE | 2022-09-10 20:39 | Diagnostic Imaging Report ---
INDICATION: Pain. COMPARISON: Radiographs from 07/31/2022. FINDINGS: Left pelvic acetabular prosthesis, stable. Old bony deformities of the bilateral acetabula. Resections or erosions of the femoral necks and heads with bilateral proximal femoral cerclage wires and soft tissue ossifications, all unchanged and identical to the prior. No acute abnormality or new pathological finding revealed. IMPRESSION: Extensive stable chronic findings, unchanged from priors. No acute appearing abnormality apparent. Dictated by: Dictated on workstation # [id number]
--- NOTE | 2022-09-10 21:01 | ED Hip Pain/Injury ---
General Chief Complaint: Hip/Pelvic Problems Stated Complaint: RT HIP PAIN Nursing Triage Note: PATIENT STATES THAT HE "SLID OUT OF HIS CHAIR", EMS WAS ORIGINALLY GOING TO JUST HELP HIM GET BACK INTO HIS CHAIR AND THEN HE BEGAN TO C/O OF RIGHT HIP PAIN SO HE DECIDED TO COME TO ER. HE DENIES LOC OR ANY OTHER SYMPTOMS AT THIS TIME. Source: patient (POOR HISTORIAN), EMS, old records History of Present Illness Date Seen by Provider: Sep 10, 2022 Time Seen by Provider: 19:35 Initial Comments PT ARRIVES VIA EMS FROM HOME PT HAD SLID OUT OF HIS CHAIR/RECLINER, AND CALLED FOR LIFT ASSIST. THIS IS A FREQUENT ISSUE WITH PATIENT. HE DECIDED AFTER THEY GOT HIM IN HIS CHAIR, HE DECIDED THAT HE WANTED TO COME TO ER FOR RIGHT HIP PAIN. NO OTHER COMPLAINTS AT THIS TIME OCCURRED ABOUT 2 HOURS AGO, PER PT HE HAS CHRONIC HIP PAIN, HAS BEEN PRESCRIBED OXYCODONE FOR HIS CHRONIC PAIN COMPLAINTS. HE CANNOT STATE WHEN HE LAST TOOK ANY OF HIS PAIN MEDICATION. PT HAS HAD MULTIPLE FAILED HIP SURGERIES, AND EVENTUALLY HAD BOTH HIPS / FEMORAL HEADS COMPLETELY AND PERMANENTLY REMOVED. HE HAS BEEN IMMOBILE SINCE THEN. HE HAS HAD AN ELECTRIC WHEELCHAIR, BUT HE STATES IT BROKE A LONG TIME AGO, AND HE HAS NEVER ATTEMPTED TO HAVE IT REPAIRED OR REPLACED. HE DOES HAVE A MANUAL WHEELCHAIR, BUT HE MOSTLY SITS /LAYS IN HIS RECLINER ALL THE TIME--HE IS COVERED IN FECES AND URINE, IS NORMAL FOR HIM HE HAS HAD A MULTITUDE OF VISITS HERE, ESPECIALLY RECENTLY--SEE OLD CHART FOR DETAILS MULTIPLE ATTEMPTS TO HAVE PT PLACED IN SHELTER AND/OR HAVE HOME HEALTH SET UP FOR HIM, AND PT THEN LATER REFUSES, AND HE GOES BACK HOME . THERE IS GREAT DIFFICULTY TRANSPORTING PT BACK HOME EACH TIME. ADULT [facility] SERVICES HAVE BEEN CONTACTED ON PREVIOUS ADMITS. HE LIVES ALONE. HIS "DIGITAL MARKETING ANALYST" LENNY COOL IS NO LONGER IN CONTACT WITH HIM, AND PT'S SON HAS BEEN RECENTLY INCARCERATED. Other PCP: DR. ROSENTHAL, [facility] [place] Allergies and Home Medications Allergies Coded Allergies: codeine (Verified Allergy, Mild, HIVES...TAKES OXYCODONE & MS CONTIN AT HOME, 03/11/19) streptokinase (Verified Allergy, Unknown, 03/11/19) Patient Home Medication List Home Medication List Reviewed: Yes Albuterol Sulfate (Ventolin Hfa) 1 Puff Puff, 2 PUFF INH Q6H PRN for SHORTNESS OF BREATH, (Reported) Entered as Reported by: KARINA RAPHAEL on 08/06/20 1606 Carboxymethylcellulose Sodium (Artificial Tears) 1 % Drops, 1 DROP OP DAILY PRN for DRY EYES, (Reported) Entered as Reported by: SHANDRA CLARKE on 09/01/22 0940 Furosemide (Furosemide) 40 Mg Tablet, 40 MG PO DAILY PRN for FLUID RETENTION, (Reported) Entered as Reported by: CHAVA HERRERA on 08/11/22 0828 Gabapentin (Neurontin) 300 Mg Capsule, 300 MG PO TID, (Reported) Entered as Reported by: KARINA RAPHAEL on 08/01/22 1517 Oxycodone HCl (Oxycodone HCl) 5 Mg Tablet, 5-10 MG PO Q4H PRN for PAIN-SEVERE (8-10), (Reported) Entered as Reported by: SHANDRA CLARKE on 09/01/22 0940 Sertraline HCl (Sertraline HCl) 50 Mg Tablet, 50 MG PO DAILY, (Reported) Entered as Reported by: CHAVA HERRERA on 08/11/22 08 Zolpidem Tartrate (Ambien) 10 Mg Tablet, 10 MG PO HS, (Reported) Entered as Reported by: CHAVA HERRERA on 08/11/22 08 Review of Systems Constitutional: no symptoms reported Musculoskeletal: see HPI Skin: other (PT HAS HEMATOMA TO RIGHT GROIN AND THIGH FROM CARDIAC CATH--THIS HAS BEEN EVALUATED MULTIPLE TIMES AND IS STABLE AND SLOWING GETTING SMALLER. ) Psychiatric/Neurological: Other (POOR MEMORY--NORMAL BASELINE FOR PT) Past Zxzoadq-Bwvdve-Fqkxdm Hx Patient Social History Tobacco Use?: Yes Smoking Status: Former Smoker Substance use?: Yes Substance type: Opiates/Opioids, Misuse of prescript meds Alcohol Use?: Yes Immunizations Up To Date Tetanus Booster (TDap): Less than 5yrs PED Vaccines UTD: No First/Initial COVID19 Vaccinat: 2021 Seasonal Allergies Seasonal Allergies: No Past Medical History Surgery/Hospitalization HX: SURGERIES; HIP REPLACEMENTS. Surgeries: Yes (BILAT HIP REPLACEMENTS X 22; WOUND DEBRIDEMENTS) Abdominal, Appendectomy, Cardiac, Defibrillator, Joint Replacement, Orthopedic, Pacemaker Respiratory: Yes Asthma, COPD Currently Using CPAP: No Currently Using BIPAP: No Cardiac: Yes (PACEMAKER, CARDIAC ARREST, SELF - REPORTED [place] X 8; CHF) Atrial Fibrillation, Chronic Edema/Swelling, Coronary Artery Disease, Congenital Heart Disease, Heart Attack, Hypertension, Irregular Heartbeat Neurological: Yes Neuropathy Reproductive Disorders: No Sexually Transmitted Disease: No HIV/AIDS: No Genitourinary: Yes Neurogenic Bladder Gastrointestinal: Yes Abdominal Hernia, Chronic Constipation Musculoskeletal: Yes (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;CHRONIC PAIN) Arthritis, Chronic Back Pain, Fractures Endocrine: Yes Diabetes, Insulin dep HEENT: Yes Dysphagia Loss of Vision: Denies Hearing Impairment: Hard of Hearing Cancer: No Psychosocial: Yes Suicide Attempts, Depression Integumentary: Yes (recurrent wound issues) Recent Skin Changes Blood Disorders: No Adverse Reaction/Blood Tranf: Yes (HIGH FEVER AND CHILLS) Family Medical History COPD Diabetes mellitus No Pertinent Family Hx Adopted, unknown FH SOCIAL HISTORY: -SMOKED IN THE PAST, QUIT -ETOH--LONG HISTORY OF ABUSE -DRUGS--EXTENSIVE ABUSE OF RX DRUGS, ESPECIALLY OPIATES PAST SURGICAL HISTORY: -MULTIPLE FAILED BILATERAL HIP REPLACEMENTS, WITH EVENTUAL REMOVAL OF BOTH FEMORAL HEADS -CARDIAC CATH 08/26/[address] LOPEZ: CORONARY ANGIOGRAPHY: Coronary calcification is seen. Left main coronary artery is free of significant disease. Left anterior descending artery does not exhibit significant disease. Left circumflex artery has 30% to 40% mid vessel stenosis at the site of the origin of a large obtuse marginal branch. IFR across this lesion is 0.96. This indicates that the lesion is hemodynamically nonsignificant. Right coronary artery is codominant with the left circumflex artery. It does not exhibit significant disease. LEFT VENTRICULAR ANGIOGRAPHY: Left ventricular angiography was carried out in the right anterior oblique projection. Global left ventricular systolic function is normal. No regional wall motion abnormalities seen. Left ventricular ejection fraction is approximately 60%. CONCLUSIONS: 1. Mild to moderate coronary artery disease, nonobstructive. 2. Normal global left ventricular systolic function with ejection fraction approximately 60%. 3. Normal left ventricular end-diastolic pressure. DISCUSSION AND RECOMMENDATIONS: Based on results of the study, it appears appropriate to continue a conservative approach. Physical Exam Vital Signs Vital Signs - First Documented 09/10/22 19:56 Temp 36.5 Pulse 88 Resp 18 B/P (MAP) 126/74 (91) Pulse Ox 98 O2 Delivery Room Air Capillary Refill : Less Than 3 Seconds Height, Weight, BMI Height: 5'8.00" Weight: 170lbs. 8.0oz. [id number]; 24.00 BMI Method:Stated General Appearance: No Apparent Distress, WD/WN, Obese, Other (FILTHY, MALODOROUS. COVERED IN FECES AND URINE. DOES NOT APPEAR TO BE IN ANY DISCOMFORT OR DISTRESS. ) Cardiovascular: Regular Rate, Rhythm Respiratory: Normal Breath Sounds Gastrointestinal: Non Tender Extremity: Other (BILATERAL HIP TENDERNESS. NO SIGNS OF FRESH TRAUMA. THERE IS AN OLD, VERY LARGE HEMATOMA PRESENT IN RIGHT GROIN AND THIGH--THIS IS UNCHANGED FROM RECENT VISITS HERE. ) Neurologic/Psychiatric: Alert, Oriented x3 (BUT POOR MEMORY. ), No Motor/Sensory Deficits, Normal Mood/Affect Skin: Normal Color, Warm/Dry Progress/Results/Core Measures Results/Orders My Orders Orders - WILFRED CAMPBELL DO Femur, Right, 2 Views (09/10/22 20:13) Pelvis With Right Hip 2-3views (09/10/22 20:13) Vital Signs/I&O 09/10/22 09/10/22 19:56 21:13 Temp 36.5 36.4 Pulse 88 86 Resp 18 16 B/P (MAP) 126/74 (91) 136/91 Pulse Ox 98 97 O2 Delivery Room Air Room Air Blood Pressure Mean: 91 Progress Progress Note : Progress Note NO FRACTURE OR EVIDENCE OF ACUTE INJURY PT HAS NO OTHER COMPLAINTS ADVISED PT THAT HE WOULD NEED TO FIND A WAY HOME, THIS IS ALWAYS AN ISSUE WITH THE PATIENT. HE MAKES NO EFFORT TO MAKE ANY ARRANGEMENTS FOR TRANSPORTATION BACK HOME MULTITUDE OF CALLS WERE MADE BY RN AND THEN BY WAREHOUSE DISTRIBUTION MANAGER IN AN ATTEMPT TO GET THE PATIENT TRANSPORTATION BACK HOME, ALL TO NO AVAIL AT THIS TIME. PT TAKEN IN A WHEELCHAIR INTO WAITING ROOM, HE HAS NO CRITERIA FOR ADMIT TO HOSPITAL, AND WILL POSSIBLY HAVE PET RESORT CONCIERGE GET INVOLVED AGAIN WITH FINDING TRANSPORTATION BACK HOME. Diagnostic Imaging Comments XRAYS--PER RADIOLOGIST REPORTS AT 2053 PELVIS AND RIGHT HIP-- FINDINGS: Left pelvic acetabular prosthesis, stable. Old bony deformities of the bilateral acetabula. Resections or erosions of the femoral necks and heads with bilateral proximal femoral cerclage wires and soft tissue ossifications, all unchanged and identical to the prior. No acute abnormality or new pathological finding revealed. IMPRESSION: Extensive stable chronic findings, unchanged from priors. No acute appearing abnormality apparent. RIGHT FEMUR--FINDINGS: Resection of the proximal femur. Cerclage wires. Severe mixed sclerosis and lucency across the knee, all identical in appearance from prior. No acute bony pathology. There is bony demineralization and deformities to the hip, chronic. 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 IMPRESSION: Extensive stable chronic findings, as described. No acute abnormality or change apparent. Reviewed: Reviewed by Me Departure Impression Primary Impression: EXACERBATION OF CHRONIC PAIN Additional Impressions: Unable to care for self Non-compliance NON AMBULATORY Disposition: 01 HOME, SELF-CARE Condition: Stable Departure-Patient Inst. Decision time for Depature: 21:01 Referrals: OLEGARIO ROSENTHAL MD (PCP/Family) Primary Care Physician Patient Instructions: Chronic Pain (DC) Add. Discharge Instructions: TAKE YOUR MEDICATIONS PRESCRIBED FOLLOW UP WITH YOUR DR THIS WEEK FOR FURTHER CARE All discharge instructions reviewed with patient and/or family. Voiced understanding. WILFRED CAMPBELL DO Sep 10, 2022 21:01
[2022-09-10 21:13] VITALS: BP 136/91
== END 2022-09-10 21:18 | disposition home or self-care (01) ==
LOC: EDUNIT# 19:53 → ER 19:54
DX: G89.29 Other chronic pain (principal); M25.552 Pain in left hip; M25.551 Pain in right hip; Z74.1 Need for assistance with personal care; Z91.199 Patient's noncompliance with other medical treatment and regimen due to unspecified reason; Z74.09 Other reduced mobility; E11.9 Type 2 diabetes mellitus without complications; E66.9 Obesity, unspecified; Z68.24 Body mass index [BMI] 24.0-24.9, adult; Z79.4 Long term (current) use of insulin; Z87.891 Personal history of nicotine dependence; Z96.643 Presence of artificial hip joint, bilateral
CPT/HCPCS: 73552

== ENCOUNTER 2022-11-21 22:26 | Observation (INO) | payer MEDICARE, MEDICAID ==
[~2022-11-21] VITALS: Ht 173 cm; Wt 87.6 kg
[2022-11-21] MEDS ORDERED: ANTACID SUSP 30 ML UDC (MYLANTA) PO ONE (22:45)
[2022-11-21] MEDS ORDERED: LIDOCAINE 2% VISCOUS 15 ML UDC PO ONE (22:45)
[2022-11-21] MEDS ORDERED: FAMOTIDINE 20 MG (PEPCID) TABLET PO ONE (22:45)
--- NOTE | 2022-11-21 22:49 | ED Chest Pain ---
General Chief Complaint: Chest Pain Stated Complaint: CHEST PAIN/SOA Nursing Triage Note: brought in by [facility] for chest pain/soa x1 day. Source: patient Exam Limitations: no limitations History of Present Illness Date Seen by Provider: Nov 21, 2022 Time Seen by Provider: 22:27 Initial Comments 72-year-old male well-known to this facility with past medical history of nonobstructive CAD, hypertension, hyperlipidemia, bilateral femoral head removal coming in via EMS from home due to chest pain. Left side of his chest, nonradiating, present for greater than 24 hours constant, moderate, throbbing. Has had similar pain in the past and had cardiac catheterizations done with no interventions. He states it feels the same as those times. EMS gave full dose aspirin. They state he had normal vitals and otherwise he denies any shortness of breath, cough, fever, nausea, vomiting, new weakness or numbness, or any other concerns. Allergies and Home Medications Allergies Coded Allergies: codeine (Verified Allergy, Mild, HIVES...TAKES OXYCODONE & MS CONTIN AT HOME, 03/11/19) streptokinase (Verified Allergy, Unknown, 03/11/19) Patient Home Medication List Home Medication List Reviewed: Yes Albuterol Sulfate (Ventolin Hfa) 1 Puff Puff, 2 PUFF INH Q6H PRN for SHORTNESS OF BREATH, (Reported) Entered as Reported by: KARINA RAPHAEL on 08/06/20 1606 Carboxymethylcellulose Sodium (Artificial Tears) 1 % Drops, 1 DROP OP DAILY PRN for DRY EYES, (Reported) Entered as Reported by: SHANDRA CLARKE on 09/01/22 0940 Furosemide (Furosemide) 40 Mg Tablet, 40 MG PO DAILY PRN for FLUID RETENTION, (Reported) Entered as Reported by: CHAVA HERRERA on 08/11/22 0828 Gabapentin (Neurontin) 300 Mg Capsule, 300 MG PO TID, (Reported) Entered as Reported by: KARINA RAPHAEL on 08/01/22 1517 Oxycodone HCl (Oxycodone HCl) 5 Mg Tablet, 5-10 MG PO Q4H PRN for PAIN-SEVERE (8-10), (Reported) Entered as Reported by: SHANDRA CLARKE on 09/01/22 0940 Sertraline HCl (Sertraline HCl) 50 Mg Tablet, 50 MG PO DAILY, (Reported) Entered as Reported by: CHAVA HERRERA on 08/11/22825 Zolpidem Tartrate (Ambien) 10 Mg Tablet, 10 MG PO HS, (Reported) Entered as Reported by: CHAVA HERRERA on 08/11/22825 Review of Systems Review of Systems Constitutional: No fever EENTM: No Symptoms Reported Respiratory: No Symptoms Reported Cardiovascular: See HPI Gastrointestinal: No Symptoms Reported Genitourinary: No Symptoms Reported Musculoskeletal: no symptoms reported Skin: no symptoms reported Psychiatric/Neurological: No Symptoms Reported Past Ajufdzu-Bcodxh-Ezsfzr Hx Patient Social History Tobacco Use?: No Smoking Status: Former Smoker Substance use?: No Alcohol Use?: Yes Alcohol Frequency: Once in a while Pt feels they are or have been: No Immunizations Up To Date Tetanus Booster (TDap): Less than 5yrs PED Vaccines UTD: No First/Initial COVID19 Vaccinat: x2 Seasonal Allergies Seasonal Allergies: No Past Medical History Surgery/Hospitalization HX: bilateral hip replacement/removal, cardiac cath, appendectomy, chronic pain, mi, cad, htn, constipation, non-compliance Surgeries: Yes (BILAT HIP REPLACEMENTS X 22; WOUND DEBRIDEMENTS) Abdominal, Appendectomy, Cardiac, Defibrillator, Joint Replacement, Orthopedic, Pacemaker Respiratory: Yes Asthma, COPD Currently Using CPAP: No Currently Using BIPAP: No Cardiac: Yes (PACEMAKER, CARDIAC ARREST, SELF - REPORTED [place] X 8; CHF) Atrial Fibrillation, Chronic Edema/Swelling, Coronary Artery Disease, Congenital Heart Disease, Heart Attack, Hypertension, Irregular Heartbeat Neurological: Yes Neuropathy Reproductive Disorders: No Sexually Transmitted Disease: No HIV/AIDS: No Genitourinary: Yes Neurogenic Bladder Gastrointestinal: Yes Abdominal Hernia, Chronic Constipation Musculoskeletal: Yes (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;CHRONIC PAIN) Arthritis, Chronic Back Pain, Fractures Endocrine: Yes Diabetes, Insulin dep HEENT: Yes Dysphagia Loss of Vision: Denies Hearing Impairment: Hard of Hearing Cancer: No Psychosocial: Yes Suicide Attempts, Depression Integumentary: Yes (recurrent wound issues) Recent Skin Changes Blood Disorders: No Adverse Reaction/Blood Tranf: Yes (HIGH FEVER AND CHILLS) Family Medical History COPD Diabetes mellitus No Pertinent Family Hx Adopted, unknown FH SOCIAL HISTORY: -SMOKED IN THE PAST, QUIT -ETOH--LONG HISTORY OF ABUSE -DRUGS--EXTENSIVE ABUSE OF RX DRUGS, ESPECIALLY OPIATES PAST SURGICAL HISTORY: -MULTIPLE FAILED BILATERAL HIP REPLACEMENTS, WITH EVENTUAL REMOVAL OF BOTH FEMORAL HEADS -CARDIAC CATH 08/26/[address] LOPEZ: CORONARY ANGIOGRAPHY: Coronary calcification is seen. Left main coronary artery is free of significant disease. Left anterior descending artery does not exhibit significant disease. Left circumflex artery has 30% to 40% mid vessel stenosis at the site of the origin of a large obtuse marginal branch. IFR across this lesion is 0.96. This indicates that the lesion is hemodynamically nonsignificant. Right coronary artery is codominant with the left circumflex artery. It does not exhibit significant disease. LEFT VENTRICULAR ANGIOGRAPHY: Left ventricular angiography was carried out in the right anterior oblique projection. Global left ventricular systolic function is normal. No regional wall motion abnormalities seen. Left ventricular ejection fraction is approximately 60%. CONCLUSIONS: 1. Mild to moderate coronary artery disease, nonobstructive. 2. Normal global left ventricular systolic function with ejection fraction approximately 60%. 3. Normal left ventricular end-diastolic pressure. DISCUSSION AND RECOMMENDATIONS: Based on results of the study, it appears appropriate to continue a conservative approach. Physical Exam Vital Signs Vital Signs - First Documented 11/21/22 22:26 Temp 36.2 Pulse 78 Resp 16 B/P (MAP) 171/90 (117) Pulse Ox 95 O2 Delivery Room Air Capillary Refill : Less Than 3 Seconds Height, Weight, BMI Height: 5'8.00" Weight: 170lbs. 8.0oz. 77.105049bv; 24.00 BMI Method:Stated General Appearance: Other (Smells of urine, disheveled, not ill-appearing) HEENT: PERRL/EOMI, Normal ENT Inspection, Pharynx Normal Neck: Full Range of Motion, Normal Inspection, Non Tender, Supple Respiratory: Chest Non Tender, Lungs Clear, Normal Breath Sounds, No Accessory Muscle Use, No Respiratory Distress Cardiovascular: Regular Rate, Rhythm, No Edema, Normal Peripheral Pulses Gastrointestinal: Normal Bowel Sounds, Non Tender, Soft; No Distended, No Guarding Extremity: Normal Capillary Refill, Normal Inspection, Normal Range of Motion, Non Tender, No Calf Tenderness, No Pedal Edema Neurologic/Psychiatric: Alert, No Motor/Sensory Deficits, Normal Mood/Affect Skin: Normal Color, Warm/Dry Progress/Results/Core Measures Results/Orders Lab Results Laboratory Tests Test 11/21/22 23:09 Range/Units White Blood Count 9.9 4.3-11.0 10^3/uL Red Blood Count 4.33 4.30-5.52 10^6/uL Hemoglobin 13.6 13.3-17.7 g/dL Hematocrit 42 40-54 % Mean Corpuscular Volume 96 80-99 fL Mean Corpuscular Hemoglobin 31 25-34 pg Mean Corpuscular Hemoglobin Concent 33 32-36 g/dL Red Cell Distribution Width 14.5 10.0-14.5 % Platelet Count 228 130-400 10^3/uL Mean Platelet Volume 10.4 9.0-12.2 fL Immature Granulocyte % (Auto) 0 % Neutrophils (%) (Auto) 64 42-75 % Lymphocytes (%) (Auto) 24 12-44 % Monocytes (%) (Auto) 8 0-12 % Eosinophils (%) (Auto) 3 0-10 % Basophils (%) (Auto) 1 0-10 % Neutrophils # (Auto) 6.3 1.8-7.8 10^3/uL Lymphocytes # (Auto) 2.4 1.0-4.0 10^3/uL Monocytes # (Auto) 0.8 0.0-1.0 10^3/uL Eosinophils # (Auto) 0.3 0.0-0.3 10^3/uL Basophils # (Auto) 0.1 0.0-0.1 10^3/uL Immature Granulocyte # (Auto) 0.0 0.0-0.1 10^3/uL Prothrombin Time 12.2 12.2-14.7 SEC INR Comment 0.9 0.8-1.4 Activated Partial Thromboplast Time 25 24-35 SEC Sodium Level 140 135-145 MMOL/L Potassium Level 4.0 3.6-5.0 MMOL/L Chloride Level 107 98-107 MMOL/L Carbon Dioxide Level 19 L 21-32 MMOL/L Anion Gap 14 5-14 MMOL/L Blood Urea Nitrogen 25 H 7-18 MG/DL Creatinine 0.93 0.60-1.30 MG/DL Estimat Glomerular Filtration Rate 88 BUN/Creatinine Ratio 27 Glucose Level 96 70-105 MG/DL Calcium Level 8.9 8.5-10.1 MG/DL Corrected Calcium 9.5 8.5-10.1 MG/DL Magnesium Level 1.7 1.6-2.4 MG/DL Total Bilirubin 0.3 0.1-1.0 MG/DL Aspartate Amino Transf (AST/SGOT) 19 5-34 U/L Alanine Aminotransferase (ALT/SGPT) 14 0-55 U/L Alkaline Phosphatase 113 40-136 U/L Troponin I 0.087 H <0.028 NG/ML B-Type Natriuretic Peptide 105.0 H <100.0 PG/ML Total Protein 6.3 L 6.4-8.2 GM/DL Albumin 3.2 3.2-4.5 GM/DL Lipase 37 8-78 U/L My Orders Orders - JOHN SAL MD Lidocaine 2% Viscous 15 Ml (Xylocaine Vi (11/21/22 22:45) Antacid Suspension (Mylanta Suspension (11/21/22 22:45) Ed Iv/Invasive Line Start (11/21/22 22:40) Cbc With Automated Diff (11/21/22 22:40) Magnesium (11/21/22 22:40) Chest 1 View, Ap/Pa Only (11/21/22 22:40) Ekg Tracing (11/21/22 22:40) Comprehensive Metabolic Panel (11/21/22 22:40) Protime With Inr (11/21/22 22:40) Partial Thromboplastin Time (11/21/22 22:40) O2 (11/21/22 22:40) Monitor-Rhythm Ecg Trace Only (11/21/22 22:40) Lipase (11/21/22 22:40) Bnp Kane (11/21/22 22:40) Troponin I Kane (11/21/22 22:40) Famotidine Tablet (Pepcid Tablet) (11/21/22 22:45) Enoxaparin Injection (Lovenox Injection) (11/21/22 23:45) Morphine Injection (Morphine Injection (11/21/22 23:45) Medications Given in ED Current Medications Medications Dose Ordered Sig/Carl Route Start Time Stop Time Status Last Admin Dose Admin Al Hydrox/Mg Hydrox/Simethicone 30 ml ONCE ONCE PO 11/21/22 22:45 11/21/22 22:46 DC 11/21/22 22:44 30 ML Enoxaparin Sodium 70 mg ONCE ONCE SC 11/21/22 23:45 11/21/22 23:49 DC 11/21/22 23:54 70 MG Famotidine 20 mg ONCE ONCE PO 11/21/22 22:45 11/21/22 22:46 DC 11/21/22 22:44 20 MG Lidocaine HCl 15 ml ONCE ONCE PO 11/21/22 22:45 11/21/22 22:46 DC 11/21/22 22:44 15 ML Vital Signs/I&O 11/21/22 22:26 Temp 36.2 Pulse 78 Resp 16 B/P (MAP) 171/90 (117) Pulse Ox 95 O2 Delivery Room Air Blood Pressure Mean: 117 Progress Progress Note : Progress Note 72-year-old male with above history coming in due to chest pain. ABCs were intact and vitals were stable on presentation. EKG with no acute ischemic changes on my interpretation. An IV was placed and basic labs were obtained including cardiac biomarkers. Troponin elevated at 0.08 which is slightly lower than a couple months ago but has been more elevated than other readings in the past. Unclear exact etiology of this given in the past he has had a negative cardiac catheterization. Patient was given IV morphine which did help with the pain. On review of the chart, nitro has not helped him in the past, we can try it. I contacted Dr. Sanz who will admit the patient to the cardiac stepdown unit under observation status for further evaluation and management as well as repeat serial troponins. Dr. Trevino will be consulted and discussed the case with him as well for consultation in the morning. He recommends the patient be n.p.o. at this time in case he needs to take him to the Clinical Project Assistant in the morning. Initial ECG Impression Date: Nov 21, 2022 Initial ECG Impression Time: 22:53 Initial ECG Rate: 98 Initial ECG Rhythm: Normal Sinus Comment Atrial paced narrow complexes, no STEMI, no significant ST changes or T wave abnormalities, Q waves in the inferior leads which all is similar to prior EKG Diagnostic Imaging Diagonstic Imaging: Xray (chest) Comments Chest x-ray ordered and interpreted by me showing poor inspiratory effort, enlarged cardiac silhouette with prominent pulmonary vasculature, no obvious pneumonia or pneumothorax. Appears similar to prior chest x-ray Departure Impression Primary Impression: NSTEMI (non-ST elevated myocardial infarction) Disposition: ADMITTED INPATIENT Condition: Stable Admissions Decision to Admit/Date: Nov 21, 2022 Time/Decision to Admit Time: 23:40 Departure-Patient Inst. Referrals: OLEGARIO ROSENTHAL MD (PCP/Family) Primary Care Physician JOHN SAL MD Nov 21, 2022 22:49
[2022-11-21 23:17] LABS: BASOPHILS # (AUTO) 0.1 10^3/uL (0.0-0.1); BASOPHILS % (AUTO) 1 % (0-10); EOSINOPHILS # (AUTO) 0.3 10^3/uL (0.0-0.3); EOSINOPHILS % (AUTO) 3 % (0-10); HEMATOCRIT 42 % (40-54); HEMOGLOBIN 13.6 g/dL (13.3-17.7); LYMPHOCYTES # (AUTO) 2.4 10^3/uL (1.0-4.0); LYMPHOCYTES % (AUTO) 24 % (12-44); MEAN CORPUSCULAR HEMOGLOBIN 31 pg (25-34); MEAN CORPUSCULAR HGB CONC 33 g/dL (32-36); MEAN CORPUSCULAR VOLUME 96 fL (80-99); MEAN PLATELET VOLUME 10.4 fL (9.0-12.2); MONOCYTES # (AUTO) 0.8 10^3/uL (0.0-1.0); MONOCYTES % (AUTO) 8 % (0-12); NEUTROPHILS # (AUTO) 6.3 10^3/uL (1.8-7.8); NEUTROPHILS % (AUTO) 64 % (42-75); PLATELET COUNT 228 10^3/uL (130-400); WHITE BLOOD COUNT 9.9 10^3/uL (4.3-11.0)
[2022-11-21 23:24] LABS: ALBUMIN 3.2 GM/DL (3.2-4.5)
[2022-11-21 23:26] LABS: CALCIUM 8.9 MG/DL (8.5-10.1)
[2022-11-21 23:27] LABS: TOTAL PROTEIN 6.3 GM/DL (6.4-8.2)
[2022-11-21 23:29] LABS: BILIRUBIN,TOTAL 0.3 MG/DL (0.1-1.0)
[2022-11-21 23:31] LABS: CREATININE SERUM 0.93 MG/DL (0.60-1.30)
[2022-11-21 23:32] LABS: INR 0.9 (0.8-1.4); PROTHROMBIN TIME PATIENT 12.2 SEC (12.2-14.7)
[2022-11-21 23:33] LABS: MAGNESIUM 1.7 MG/DL (1.6-2.4)
[2022-11-21] MEDS ORDERED: ENOXAPARIN 80 MG/0.8 ML (LOVENOX) SYR SC ONE (23:45)
[2022-11-21] MEDS ORDERED: morphine INJ 10 MG/ML 1ML (SYR OR VIAL) IVP STA (23:45)
[2022-11-22] VITALS (9 sets, daily range): BP systolic 125–209; BP diastolic 65–99
[2022-11-22] MEDS ORDERED: morphine INJ 4 MG/ML 1 ML (VIAL/SYRINGE) IV PRN (01:45)
[2022-11-22] MEDS ORDERED: ONDANSETRON 4 MG/2 ML (SDV) Z0FRAN IV PRN ×2 (01:45→11:15)
[2022-11-22] MEDS ORDERED: LORazepam INJ 2 MG/ML (ATIVAN) VIAL IV PRN (01:45)
[2022-11-22] MEDS ORDERED: NITROGLYCERIN 2% OINT 1 GM UNIT DOSE PACKET TOP PRN (01:45)
[2022-11-22] MEDS ORDERED: ACETAMINOPHEN 500 MG TAB (TYLENOL) PO PRN (01:45)
[2022-11-22] MEDS: RT-ALBUTEROL SULF 2.5 MG/3 ML PRE-MIX VIAL INH SCH ×4 (02:23→21:29)
[2022-11-22] MEDS ORDERED: RT-ALBUTEROL SULF 2.5 MG/3 ML PRE-MIX VIAL INH PRN (05:00)
[2022-11-22] MEDS ORDERED: CATHETER FLUSH 10 ML SYR IVP SCH (06:00)
--- NOTE | 2022-11-22 06:35 | History & Physical-Hospitalist ---
History of Present Illness HPI/Chief Complaint Chief complaint: NSTEMI HPI: This is a 72-year-old complicated male who presented to the ER with chest pain found to have elevated troponin consistent with NSTEMI. Dr. Trevino evaluated him and deemed him ready for discharge after placement of Ranexa to help with angina. Recent cardiac catheterization showed small vessel disease so no cardiac catheterization is planned. He did have significant coarseness in lungs. We will initiate steroid treatment and breathing treatments. Source: patient, old records Exam Limitations: no limitations Date Seen 11/22/22 Time Seen by a Provider: 11:00 Attending Physician Uriel Cardona MD PCP Admitting Physician: Kirsten Bhnadari DO Attending Physician: Kirsten Bhandari DO Referring Physician Date of Admission Nov 21, 2022 at 23:47 Home Medications & Allergies Home Medications Reviewed patient Home Medication Reconciliation performed by pharmacy medication reconciliations security system technician and/or nursing. Patients Allergies have been reviewed. Allergies Allergies Coded Allergies codeine (Verified Allergy, Mild, HIVES...TAKES OXYCODONE & MS CONTIN AT HOME, 03/11/19) streptokinase (Verified Allergy, Unknown, 03/11/19) Past Mefhiwt-Zdequj-Ftelfz Hx Patient Social History Marrital Status: single Employed/Student: unemployed Tobacco Use?: No Smoking Status: Former Smoker Use of E-Cig and/or Vaping dev: No Substance use?: No Alcohol Use?: Yes Alcohol Frequency: Couple times a week Pt feels they are or have been: No Immunizations Up To Date Date of Influenza Vaccine: Aug 04, 2022 First/Initial COVID19 Vaccinat: x2 Tetanus Booster (TDap): More Than 5 Years Hepatitis A: No Hepatitis B: No PED Vaccines UTD: No Date of Pneumonia Vaccine: Jul 03, 2018 Seasonal Allergies Seasonal Allergies: No Current Status Advance Directives: No Communicates: Verbally Primary Language: Mosotho Preferred Spoken Language: Mosotho Is interpretation needed?: No Implanted or Applied Medical D: Pacemaker Past Medical History Surgeries: Abdominal, Appendectomy, Cardiac, Defibrillator, Joint Replacement, Orthopedic, Pacemaker Asthma, COPD Currently Using CPAP: No Currently Using BIPAP: No Atrial Fibrillation, Chronic Edema/Swelling, Coronary Artery Disease, Congenital Heart Disease, Heart Attack, Hypertension, Irregular Heartbeat Neuropathy Sexually Transmitted Disease: No HIV/AIDS: No Neurogenic Bladder Abdominal Hernia, Chronic Constipation Arthritis, Chronic Back Pain, Fractures Diabetes, Insulin dep Dysphagia Loss of Vision: Denies Hearing Impairment: Hard of Hearing Suicide Attempts, Depression Recent Skin Changes Blood Disorders: No Adverse Reaction/Blood Tranf: Yes (HIGH FEVER AND CHILLS) PMHx: avascular necrosis of multiple joints Asthma Chronic nonhealing hip wounds SurgHx: 11 bilateral hip surgeries, removal of hardware is nonambulatory 3 back surgeries Neck surgery Bilateral carpal tunnel release Bilateral cubital tunnel release Family Medical History COPD Diabetes mellitus No Pertinent Family Hx Adopted, unknown FH SOCIAL HISTORY: -SMOKED IN THE PAST, QUIT -ETOH--LONG HISTORY OF ABUSE -DRUGS--EXTENSIVE ABUSE OF RX DRUGS, ESPECIALLY OPIATES PAST SURGICAL HISTORY: -MULTIPLE FAILED BILATERAL HIP REPLACEMENTS, WITH EVENTUAL REMOVAL OF BOTH FEMORAL HEADS -CARDIAC CATH 08/26/[address] LOPEZ: CORONARY ANGIOGRAPHY: Coronary calcification is seen. Left main coronary artery is free of significant disease. Left anterior descending artery does not exhibit significant disease. Left circumflex artery has 30% to 40% mid vessel stenosis at the site of the origin of a large obtuse marginal branch. IFR across this lesion is 0.96. This indicates that the lesion is hemodynamically nonsignificant. Right coronary artery is codominant with the left circumflex artery. It does not exhibit significant disease. LEFT VENTRICULAR ANGIOGRAPHY: Left ventricular angiography was carried out in the right anterior oblique projection. Global left ventricular systolic function is normal. No regional wall motion abnormalities seen. Left ventricular ejection fraction is approximately 60%. CONCLUSIONS: 1. Mild to moderate coronary artery disease, nonobstructive. 2. Normal global left ventricular systolic function with ejection fraction approximately 60%. 3. Normal left ventricular end-diastolic pressure. DISCUSSION AND RECOMMENDATIONS: Based on results of the study, it appears appropriate to continue a conservative approach. Review of Systems Constitutional: see HPI Respiratory: cough Cardiovascular: chest pain Physical Exam Physical Exam Vital Signs Vital Signs - First Documented 11/21/22 11/22/22 11/22/22 22:26 01:30 01:33 Temp 36.2 Pulse 78 Resp 16 B/P (MAP) 171/90 (117) Pulse Ox 95 O2 Delivery Room Air O2 Flow Rate 2.00 FiO2 2 Capillary Refill : Less Than 3 Seconds Height, Weight, BMI Height: 5'8.00" Weight: 170lbs. 8.0oz. [id number]; 28.66 BMI Method:Stated General Appearance: No Apparent Distress, Chronically ill Eyes: Right Eye Normal Inspection, Right Eye PERRL HEENT: PERRL/EOMI, Normal ENT Inspection, Pharynx Normal, Moist Mucous Membranes Neck: Full Range of Motion, Normal Inspection, Non Tender Respiratory: Chest Non Tender, No Accessory Muscle Use, No Respiratory Distress, Crackles, Decreased Breath Sounds, Wheezing Cardiovascular: Regular Rate, Rhythm, No Edema, No Gallop, No JVD, No Murmur, Normal Peripheral Pulses Gastrointestinal: Normal Bowel Sounds, No Organomegaly, No Pulsatile Mass, Non Tender, Soft Back: Normal Inspection, No CVA Tenderness, No Vertebral Tenderness Extremity: Normal Capillary Refill, Normal Inspection, Normal Range of Motion (Except extremities), Non Tender, No Calf Tenderness, No Pedal Edema Neurologic/Psychiatric: Alert, Oriented x3, No Motor/Sensory Deficits, Normal Mood/Affect Skin: Normal Color, Warm/Dry Lymphatic: No Adenopathy Results Results/Procedures Labs Laboratory Tests 11/21/22 23:09 Patient resulted labs reviewed. Assessment/Plan Admission Diagnosis Assessment: NSTEMI Bilateral hip dysfunction status post multiple surgeries remains unable to ambulate Depression COPD with acute exacerbation Former smoker Plan: Home meds Moved to fourth floor Steroids Nebulizers Oxygen supplementation Admission Status: Observation Clinical Quality Measures AMI/AHF: ASA po Prior to arrival: Yes KIRSTEN BHANDARI DO Nov 22, 2022 06:35
[2022-11-22] MEDS: PANTOPRAZOLE 40 MG (PROTONIX) TAB PO SCH (06:47)
--- NOTE | 2022-11-22 06:59 | Diagnostic Imaging Report ---
INDICATION: Chest pain Compared to 08/25/2022. Pacemaker battery overlies the left chest, no failure pattern. There is however new patchy infiltrate in the left mid to lower lung suspect for pneumonia. More equivocal findings for infiltrate or atelectasis in the medial right base. Impression: Suspicion for left lower lobe pneumonia. Right basilar opacity and early infiltrate or atelectasis. No failure pattern or acute pleural pathology. Dictated by: Dictated on workstation # [id number]
[2022-11-22] MEDS: ASPIRIN E.C. 81 MG (ECOTRIN) TAB PO SCH (08:36)
[2022-11-22] MEDS ORDERED: FLU QUADRIvalent (6 months+) 60 mcg/0.5 ml 2022-23 (Fluzone) IM ONE (09:00)
--- NOTE | 2022-11-22 09:57 | Consultation-Cardiology ---
HPI-Cardiology Cardiology Consultation Date of Consultation 11/22/22 Date of Admission Time Seen by Provider: 09:53 Indication: Chest pain HPI 72 years old gentleman with history of coronary artery disease, hypertension and hyperlipidemia. Patient reported that he has been having chest pain on and off for the past 2 to 3 days radiating to the left arm. The pain was constant, came in to the emergency room for evaluation and he was noted to have mild elevation in troponin level. On my evaluation he was feeling better, denied any active chest pain, has been reporting improvement in his symptoms. 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 Smoking Status: Former Smoker Type Used: Cigarettes 2nd Hand Smoke Exposure: Yes Recent Hopitalizations: No Have you traveled recently?: No Alcohol Use?: Yes Immunizations Up To Date Tetanus Booster (TDap): Less than 5yrs Date of Pneumonia Vaccine: Jul 03, 2018 Date of Influenza Vaccine: Aug 04, 2022 Past Medical History Discussed below Family Medical History Significant Family History: No Pertinent Family Hx Family History: COPD Diabetes mellitus Review of Systems-General Review of Systems Constitutional: No fever; malaise EENTM: see HPI, no symptoms reported Respiratory: no symptoms reported, see HPI Cardiovascular: see HPI, chest pain; No edema, No Hx of Intervention; palpitations; No syncope, No vascular heart diseas, No other Gastrointestinal: no symptoms reported, see HPI Genitourinary: no symptoms reported, see HPI Musculoskeletal: no symptoms reported, see HPI Skin: no symptoms reported, see HPI Psychiatric/Neurological: No Symptoms Reported, See HPI Reviewed Test Results Reviewed Test Results Lab Laboratory Tests Test 11/21/22 23:09 11/22/22 03:05 11/22/22 07:11 Range/Units White Blood Count 9.9 4.3-11.0 10^3/uL Red Blood Count 4.33 4.30-5.52 10^6/uL Hemoglobin 13.6 13.3-17.7 g/dL Hematocrit 42 40-54 % Mean Corpuscular Volume 96 80-99 fL Mean Corpuscular Hemoglobin 31 25-34 pg Mean Corpuscular Hemoglobin Concent 33 32-36 g/dL Red Cell Distribution Width 14.5 10.0-14.5 % Platelet Count 228 130-400 10^3/uL Mean Platelet Volume 10.4 9.0-12.2 fL Immature Granulocyte % (Auto) 0 % Neutrophils (%) (Auto) 64 42-75 % Lymphocytes (%) (Auto) 24 12-44 % Monocytes (%) (Auto) 8 0-12 % Eosinophils (%) (Auto) 3 0-10 % Basophils (%) (Auto) 1 0-10 % Neutrophils # (Auto) 6.3 1.8-7.8 10^3/uL Lymphocytes # (Auto) 2.4 1.0-4.0 10^3/uL Monocytes # (Auto) 0.8 0.0-1.0 10^3/uL Eosinophils # (Auto) 0.3 0.0-0.3 10^3/uL Basophils # (Auto) 0.1 0.0-0.1 10^3/uL Immature Granulocyte # (Auto) 0.0 0.0-0.1 10^3/uL Prothrombin Time 12.2 12.2-14.7 SEC INR Comment 0.9 0.8-1.4 Activated Partial Thromboplast Time 25 24-35 SEC Sodium Level 140 135-145 MMOL/L Potassium Level 4.0 3.6-5.0 MMOL/L Chloride Level 107 98-107 MMOL/L Carbon Dioxide Level 19 L 21-32 MMOL/L Anion Gap 14 5-14 MMOL/L Blood Urea Nitrogen 25 H 7-18 MG/DL Creatinine 0.93 0.60-1.30 MG/DL Estimat Glomerular Filtration Rate 88 BUN/Creatinine Ratio 27 Glucose Level 96 70-105 MG/DL Calcium Level 8.9 8.5-10.1 MG/DL Corrected Calcium 9.5 8.5-10.1 MG/DL Magnesium Level 1.7 1.6-2.4 MG/DL Total Bilirubin 0.3 0.1-1.0 MG/DL Aspartate Amino Transf (AST/SGOT) 19 5-34 U/L Alanine Aminotransferase (ALT/SGPT) 14 0-55 U/L Alkaline Phosphatase 113 40-136 U/L Troponin I 0.087 H 0.092 H 0.122 H <0.028 NG/ML B-Type Natriuretic Peptide 105.0 H <100.0 PG/ML Total Protein 6.3 L 6.4-8.2 GM/DL Albumin 3.2 3.2-4.5 GM/DL Lipase 37 8-78 U/L Physical Exam Physical Exam Vital Signs Vital Signs - First Documented 11/21/22 11/22/22 11/22/22 22:26 01:30 01:33 Temp 36.2 Pulse 78 Resp 16 B/P (MAP) 171/90 (117) Pulse Ox 95 O2 Delivery Room Air O2 Flow Rate 2.00 FiO2 2 Capillary Refill : Less Than 3 Seconds Height, Weight, BMI Height: 5'8.00" Weight: 170lbs. 8.0oz. 77.942166kw; 28.66 BMI Method:Stated General Appearance: Other (Smells of urine, disheveled, not ill-appearing) Eyes: Bilateral Eye Normal Inspection, Bilateral Eye PERRL, Bilateral Eye EOMI HEENT: PERRL/EOMI, Normal ENT Inspection, Pharynx Normal Neck: Full Range of Motion, Normal Inspection, Non Tender, Supple Respiratory: Chest Non Tender, Lungs Clear, Normal Breath Sounds, No Accessory Muscle Use, No Respiratory Distress Cardiovascular: Regular Rate, Rhythm, No Edema, Normal Peripheral Pulses Gastrointestinal: Normal Bowel Sounds, Non Tender, Soft; No Distended, No Guarding Back: Normal Inspection, No CVA Tenderness, No Vertebral Tenderness Extremity: Normal Capillary Refill, Normal Inspection, Normal Range of Motion, Non Tender, No Calf Tenderness, No Pedal Edema Neurologic/Psychiatric: Alert, No Motor/Sensory Deficits, Normal Mood/Affect Skin: Normal Color, Warm/Dry Lymphatic: No Adenopathy A/P-Cardiology Admission Diagnosis Chest pain Non-ST elevation myocardial infarction Coronary artery disease Hypertension Assessment/Plan Chest pain, minimal elevation in troponin Non-ST elevation myocardial infarction Probably secondary to small vessel disease. Known to have nonobstructive disease by cardiac catheterization in August 2022. Intolerant to nitroglycerin with headache, I will try Ranexa Coronary artery disease, cardiac catheterization carried out in 2012 and 2014 with diffuse atherosclerotic plaques. Nonobstructive disease. Cardiac catheterization was carried out by Dr. Houser on August 26, 2022 with nonobstructive coronary artery disease. iFR was done through the circumflex artery. Review of his cardiac catheterization film showed calcification in the left main and the proximal LAD with mild to moderate disease, 50% stenosis in the mid circumflex artery with IFR 0.97. Small vessel disease distally, dominant circumflex artery. 2D echo done on August 26, 2022 with normal LV size and function. Ejection fraction 55 to 60%, grade 2 diastolic dysfunction, biatrial enlargement, PA pressure 15 mmHg Hypertension, starting metoprolol ER 25 mg daily Patient has pacemaker Continue to monitor Hyperlipidemia, last lipid profile was done in August 2022 I will add lipid profile to his morning labs History of dual-chamber pacemaker due to sinus node dysfunction, he has history of sinus pause for 3.2 second. Continue to monitor History of avascular necrosis of the hip, underwent multiple hip surgeries in the past and hip replacements. History of gastroesophageal reflux disease, COPD. Polysubstance use for pain control Previous history of tobaccoism Okay for discharge from cardiology standpoint and follow-up as an outpatient Clinical Quality Measures AMI/AHF: ASA po Prior to arrival: Yes SKYAL SQUIRES MD Nov 22, 2022 09:57
[2022-11-22 10:12] LABS: TRIGLYCERIDES 88 MG/DL (<150); VLDL CHOLESTEROL 18 MG/DL (5-40)
[2022-11-22 10:17] LABS: CHOLESTEROL 181 MG/DL (< 200)
[2022-11-22 10:18] LABS: HDL CHOLESTEROL 101 MG/DL (40-60)
[2022-11-22] MEDS ORDERED: ANTACID SUSP 30 ML UDC (MYLANTA) PO PRN (11:15)
[2022-11-22] MEDS ORDERED: diphenhydrAMINE 50 MG/ML INJ (BENADRYL) IVP PRN (11:15)
[2022-11-22] MEDS ORDERED: MILK OF MAGNESIA 400 MG/5 ML 30 ML UDC PO PRN (11:15)
[2022-11-22] MEDS ORDERED: methylPREDNISolone 40 MG/ML (Solu-MEDROL) VIAL IV SCH (11:15)
[2022-11-22] MEDS ORDERED: LACTULOSE SYRUP 10GM/15ML (ENULOSE) 30ML UDC PO PRN (11:15)
[2022-11-22] MEDS ORDERED: ACETAMINOPHEN 325 MG TABLET PO PRN (11:15)
[2022-11-22] MEDS ORDERED: diphenhydrAMINE 25 MG TAB (BENADRYL) PO PRN (11:15)
[2022-11-22] MEDS ORDERED: CALCIUM CARBONATE 500 MG (TUMS) TAB.CHEW PO PRN (11:15)
[2022-11-22] MEDS ORDERED: polyethylene glycoL POWDER 17 GM (MIRALAX) PACK PO PRN (11:15)
[2022-11-22] MEDS ORDERED: ONDANSETRON 4 MG (ZOFRAN) ORAL DISSOLVE TAB PO PRN (11:15)
[2022-11-22] MEDS ORDERED: HYDROmorphone 2 MG/ML VIAL (DILAUDID) IV PRN (11:15)
[2022-11-22] MEDS ORDERED: MELATONIN 3 MG TABLET PO PRN (11:15)
[2022-11-22] MEDS ORDERED: BISACODYL 10 MG SUPP (DULCOLAX) PR PRN (11:15)
[2022-11-22] MEDS ORDERED: ENOXAPARIN 80 MG/0.8 ML (LOVENOX) SYR SC SCH (12:00)
[2022-11-22] MEDS ORDERED: LORazepam 0.5 MG (ATIVAN) TABLET PO PRN (12:30)
[2022-11-22] MEDS: ENOXAPARIN 40 MG/0.4 ML (LOVENOX) SYR SC SCH (12:32)
[2022-11-22] MEDS: predniSONE 20 MG TAB PO SCH ×2 (12:32→19:36)
[2022-11-22] MEDS: RANOLAZINE ER 500 MG TAB (RANEXA) PO SCH (19:36)
[2022-11-22] MEDS: MONTELUKAST 10 MG (SINGULAIR) TAB PO SCH (19:36)
[2022-11-22] MEDS: SENNOSIDES 8.6 MG (SENOKOT) TAB PO SCH (19:36)
[2022-11-22] MEDS: DOCUSATE SODIUM 100 MG (COLACE) CAP PO SCH (19:37)
[2022-11-23] MEDS: RT-ALBUTEROL SULF 2.5 MG/3 ML PRE-MIX VIAL INH SCH ×4 (02:38→20:36)
[2022-11-23 03:25] VITALS: BP 126/69
[2022-11-23] MEDS: PANTOPRAZOLE 40 MG (PROTONIX) TAB PO SCH (05:59)
[2022-11-23 06:09] LABS: BASOPHILS % (AUTO) 0 % (0-10); EOSINOPHILS % (AUTO) 0 % (0-10); HEMATOCRIT 38 % (40-54); HEMOGLOBIN 12.7 g/dL (13.3-17.7); LYMPHOCYTES # (AUTO) 0.5 10^3/uL (1.0-4.0); LYMPHOCYTES % (AUTO) 7 % (12-44); MEAN CORPUSCULAR HEMOGLOBIN 32 pg (25-34); MEAN CORPUSCULAR HGB CONC 33 g/dL (32-36); MEAN CORPUSCULAR VOLUME 96 fL (80-99); MEAN PLATELET VOLUME 10.9 fL (9.0-12.2); MONOCYTES # (AUTO) 0.2 10^3/uL (0.0-1.0); MONOCYTES % (AUTO) 3 % (0-12); NEUTROPHILS # (AUTO) 5.7 10^3/uL (1.8-7.8); NEUTROPHILS % (AUTO) 89 % (42-75); PLATELET COUNT 219 10^3/uL (130-400); WHITE BLOOD COUNT 6.3 10^3/uL (4.3-11.0)
[2022-11-23 06:24] LABS: ALBUMIN 3.2 GM/DL (3.2-4.5); POTASSIUM 4.4 MMOL/L (3.6-5.0)
[2022-11-23 06:27] LABS: TOTAL PROTEIN 6.3 GM/DL (6.4-8.2)
[2022-11-23 06:28] LABS: BILIRUBIN,TOTAL 0.6 MG/DL (0.1-1.0)
[2022-11-23 06:30] LABS: CREATININE SERUM 0.88 MG/DL (0.60-1.30)
[2022-11-23 06:46] LABS: BAND NEUTROPHILS 1 %; LYMPHOCYTES % (MANUAL) 8 %; MONOCYTES % (MANUAL) 4 %; NEUTROPHILS % (MANUAL) 87 %; RBC MORPH NORMAL
[2022-11-23 07:16] VITALS: BP 141/69
[2022-11-23] MEDS: DOCUSATE SODIUM 100 MG (COLACE) CAP PO SCH ×2 (07:36→19:59)
[2022-11-23] MEDS: SENNOSIDES 8.6 MG (SENOKOT) TAB PO SCH (07:36)
[2022-11-23] MEDS: ASPIRIN E.C. 81 MG (ECOTRIN) TAB PO SCH (07:41)
[2022-11-23] MEDS: RANOLAZINE ER 500 MG TAB (RANEXA) PO SCH ×2 (07:41→20:02)
[2022-11-23] MEDS: predniSONE 20 MG TAB PO SCH ×2 (07:41→19:59)
--- NOTE | 2022-11-23 08:00 | Progress Note - Hospitalist ---
Subjective HPI/CC On Admission Date Seen by Provider: Nov 23, 2022 Time Seen by Provider: 11:00 Chief complaint: NSTEMI HPI: This is a 72-year-old complicated male who presented to the ER with chest pain found to have elevated troponin consistent with NSTEMI. Dr. Trevino evaluated him and deemed him ready for discharge after placement of Ranexa to help with angina. Recent cardiac catheterization showed small vessel disease so no cardiac catheterization is planned. He did have significant coarseness in lungs. We will initiate steroid treatment and breathing treatments. Subjective/Events-last exam Patient having UTI symptoms Started on Levaquin for coverage of bronchitis also Pain is always an issue Lungs are very coarse still Review of Systems Genitourinary: Dysuria, Frequency Objective Exam Vital Signs Vital Signs Date Time Temp Pulse Resp B/P (MAP) Pulse Ox O2 Delivery O2 Flow Rate FiO2 11/23/22 11:25 36.7 73 20 136/64 (88) Nasal Cannula 2.00 11/23/22 07:16 98 11/22/22 01:30 2 Capillary Refill : Less Than 3 Seconds General Appearance: No Apparent Distress, WD/WN, Chronically ill Respiratory: No Accessory Muscle Use, No Respiratory Distress, Crackles, Decreased Breath Sounds Cardiovascular: Regular Rate, Rhythm Neurologic/Psychiatric: Alert, Oriented x3, No Motor/Sensory Deficits, Normal Mood/Affect Results/Procedures Lab Laboratory Tests 11/23/22 05:45 Patient resulted labs reviewed. Assessment/Plan Assessment and Plan Assess & Plan/Chief Complaint Assessment: NSTEMI-no intervention being pursued since multivessel disease on last cath Bilateral hip dysfunction status post multiple surgeries remains unable to ambulate Depression COPD with acute exacerbation Former smoker Acute UTI with dysuria Plan: Home meds Start Levaquin empirically Steroids Nebulizers Oxygen supplementation Clinical Quality Measures AMI/AHF: ASA po Prior to arrival: Yes ZOHREH BHANDARI DO Nov 23, 2022 08:00
--- NOTE | 2022-11-23 09:48 | Cardiology Progress Note ---
Subjective Date Seen by Provider: Nov 23, 2022 Time Seen by Provider: 09:47 Subjective/Events-last exam Patient was seen at bedside, laying down comfortably Complaining of dysuria, having dyspnea Review of Systems General: No Chills, No Night Sweats; Fatigue, Malaise; No Appetite, No Other HEENT: No Head Aches, No Visual Changes, No Eye Pain, No Ear Pain, No Dysphas ia, No Sinus Congestion, No Post Nasal Drip, No Sore Throat, No Other Pulmonary: Dyspnea; No Cough, No Pleuritic Chest Pain, No Other Cardiovascular: No: Chest Pain, Palpitations, Orthopnea, Paroxysmal Noc. Dyspnea, Edema, Lt Headedness, Other Objective-Cardiology Exam Last Set of Vital Signs Vital Signs 11/22/22 11/23/22 01:30 07:16 Temp 36.8 Pulse 83 Resp 22 B/P (MAP) 141/69 (93) Pulse Ox 98 O2 Delivery Nasal Cannula O2 Flow Rate 2.00 FiO2 2 I&O Intake and Output 11/23/22 00:00 Intake Total 876 ml Output Total 1250 ml Balance -374 ml Intake Oral 876 ml Output Urine Total 1250 ml # Voids 1 Daily Weight Change Yes, 14-23 lbs General: Alert, Oriented X3, Cooperative HEENT: Atraumatic, PERRLA Neck: Supple, No JVD, No Thyromegaly Lungs: Normal Air Movement, Other (Bilateral wheezing) Heart: Regular Rate, Normal S1, Normal S2, No Murmurs Abdomen: Normal Bowel Sounds, Soft, No Tenderness, No Hepatosplenomegaly, No Masses Extremities: No Clubbing, No Cyanosis, Normal Pulses, No Tenderness/Swelling, Other (Pedal edema) Skin: No Rashes, No Breakdown, No Significant Lesion Neuro: Normal Gait, Normal Speech, Strength at 5/5 X4 Ext, Normal Tone, Sensation Intact Psych/Mental Status: Mental Status NL, Mood NL Results Lab Laboratory Tests 11/23/22 05:45 A/P-Cardiology Admission Diagnosis Chest pain Non-ST elevation myocardial infarction Coronary artery disease Hypertension Assessment/Plan Chest pain, minimal elevation in troponin Non-ST elevation myocardial infarction Probably secondary to small vessel disease. Known to have nonobstructive disease by cardiac catheterization in August 2022. Intolerant to nitroglycerin with headache, tolerating Ranexa well Shortness of breath, wheezing, questionable early infiltrate on chest x-ray I will repeat chest x-ray PA and lateral Dysuria, had history of recurrent UTI. Will evaluate urine analysis Coronary artery disease, cardiac catheterization carried out in 2012 and 2014 with diffuse atherosclerotic plaques. Nonobstructive disease. Cardiac catheterization was carried out by Dr. Houser on August 26, 2022 with nonobstructive coronary artery disease. iFR was done through the circumflex artery. Review of his cardiac catheterization film showed calcification in the left main and the proximal LAD with mild to moderate disease, 50% stenosis in the mid circumflex artery with IFR 0.97. Small vessel disease distally, dominant circumflex artery. 2D echo done on August 26, 2022 with normal LV size and function. Ejection fraction 55 to 60%, grade 2 diastolic dysfunction, biatrial enlargement, PA pre ssure 15 mmHg Hypertension, starting metoprolol ER 25 mg daily Patient has pacemaker Continue to monitor Hyperlipidemia, well controlled on current medication, continue to monitor History of dual-chamber pacemaker due to sinus node dysfunction, he has history of sinus pause for 3.2 second. Continue to monitor History of avascular necrosis of the hip, underwent multiple hip surgeries in the past and hip replacements. History of gastroesophageal reflux disease, COPD. Polysubstance use for pain control Previous history of tobaccoism Okay for discharge from cardiology standpoint and follow-up as an outpatient SKYLA SQUIRES MD Nov 23, 2022 09:48
[2022-11-23 10:11] LABS: BILIRUBIN,URINE NEGATIVE (NEGATIVE); CLARITY,URINE TURBID; COLOR,URINE ORANGE; GLUCOSE, URINE (UA) NEGATIVE (NEGATIVE); KETONES,URINE NEGATIVE (NEGATIVE); LEUKOCYTE ESTERASE ,URINE 3+ (NEGATIVE); NITRITE,URINE POSITIVE (NEGATIVE); PH,URINE >=9.0 (5-9); PROTEIN,URINE 2+ (NEGATIVE)
[2022-11-23 10:20] LABS: BACTERIA,URINE LARGE /HPF; TRIPLE PHOSPHATE CRYSTAL,UR FEW /LPF; WBC,URINE 25-50 /HPF
--- NOTE | 2022-11-23 10:34 | Diagnostic Imaging Report ---
EXAM: CHEST 1 VIEW, AP/PA ONLY INDICATION: Dyspnea. COMPARISON: Chest 11/21/2022. FINDINGS: Cardiac pacer. Cardiomegaly with pulmonary vascular congestion which has mildly increased compared to the prior exam. No pleural effusion or pneumothorax. No acute osseous findings. IMPRESSION: Cardiomegaly with mildly increasing pulmonary vascular congestion. Dictated by: Dictated on workstation # [id number]
[2022-11-23 11:25] VITALS: BP 136/64
[2022-11-23] MEDS ORDERED: LACTULOSE SYRUP 10GM/15ML (ENULOSE) 30ML UDC PO NR (12:00)
[2022-11-23] MEDS ORDERED: SENNA W/DOCUSATE (SENOKOT S) TABLET PO NR (12:00)
[2022-11-23] MEDS: PHENAZOPYRIDINE 100 MG (PYRIDIUM) TABLET PO SCH ×3 (12:51→17:36)
[2022-11-23] MEDS: ENOXAPARIN 40 MG/0.4 ML (LOVENOX) SYR SC SCH (12:52)
[2022-11-23 15:43] VITALS: BP 128/69
[2022-11-23] MEDS: BETHANECHOL 10 MG (URECHOLINE) TAB PO SCH ×2 (16:03→19:58)
[2022-11-23] MEDS: MONTELUKAST 10 MG (SINGULAIR) TAB PO SCH (19:58)
[2022-11-23] MEDS: MELATONIN 3 MG TABLET PO PRN (19:58)
[2022-11-23] MEDS: LACTULOSE SYRUP 10GM/15ML (ENULOSE) 30ML UDC PO SCH (19:59)
[2022-11-23] MEDS: SENNA W/DOCUSATE (SENOKOT S) TABLET PO SCH (20:00)
[2022-11-23 20:52] VITALS: BP 126/66
[2022-11-23 23:26] VITALS: BP 148/70
[2022-11-24] MEDS: RT-ALBUTEROL SULF 2.5 MG/3 ML PRE-MIX VIAL INH SCH ×4 (02:49→22:11)
[2022-11-24 03:49] VITALS: BP 147/80
[2022-11-24] MEDS: BETHANECHOL 10 MG (URECHOLINE) TAB PO SCH ×4 (05:31→21:47)
[2022-11-24] MEDS: PANTOPRAZOLE 40 MG (PROTONIX) TAB PO SCH (05:31)
[2022-11-24 05:56] LABS: BASOPHILS % (AUTO) 0 % (0-10); EOSINOPHILS % (AUTO) 0 % (0-10); HEMATOCRIT 39 % (40-54); HEMOGLOBIN 12.6 g/dL (13.3-17.7); LYMPHOCYTES # (AUTO) 0.6 10^3/uL (1.0-4.0); LYMPHOCYTES % (AUTO) 6 % (12-44); MEAN CORPUSCULAR HEMOGLOBIN 32 pg (25-34); MEAN CORPUSCULAR HGB CONC 33 g/dL (32-36); MEAN CORPUSCULAR VOLUME 96 fL (80-99); MEAN PLATELET VOLUME 11.6 fL (9.0-12.2); MONOCYTES # (AUTO) 0.4 10^3/uL (0.0-1.0); MONOCYTES % (AUTO) 4 % (0-12); NEUTROPHILS # (AUTO) 8.7 10^3/uL (1.8-7.8); NEUTROPHILS % (AUTO) 90 % (42-75); PLATELET COUNT 236 10^3/uL (130-400); WHITE BLOOD COUNT 9.7 10^3/uL (4.3-11.0)
[2022-11-24 06:06] LABS: ALBUMIN 3.3 GM/DL (3.2-4.5); POTASSIUM 4.6 MMOL/L (3.6-5.0)
[2022-11-24 06:07] LABS: CALCIUM 9.2 MG/DL (8.5-10.1)
[2022-11-24 06:08] LABS: TOTAL PROTEIN 6.4 GM/DL (6.4-8.2)
[2022-11-24 06:10] LABS: BILIRUBIN,TOTAL 0.5 MG/DL (0.1-1.0)
[2022-11-24 06:12] LABS: CREATININE SERUM 1.18 MG/DL (0.60-1.30)
[2022-11-24 08:00] VITALS: BP 143/81
[2022-11-24] MEDS: RANOLAZINE ER 500 MG TAB (RANEXA) PO SCH ×2 (08:15→21:50)
[2022-11-24] MEDS: predniSONE 20 MG TAB PO SCH ×2 (08:15→21:47)
[2022-11-24] MEDS: ASPIRIN E.C. 81 MG (ECOTRIN) TAB PO SCH (08:15)
[2022-11-24] MEDS: PHENAZOPYRIDINE 100 MG (PYRIDIUM) TABLET PO SCH ×3 (08:15→18:11)
[2022-11-24] MEDS ORDERED: NITR0.4T42 SL (08:38)
[2022-11-24] MEDS ORDERED: IBUP-2473 PO (08:38)
[2022-11-24] MEDS ORDERED: MULT-974 PO (08:39)
[2022-11-24] MEDS: DOCUSATE SODIUM 100 MG (COLACE) CAP PO SCH ×2 (08:54→19:46)
[2022-11-24] MEDS: SENNA W/DOCUSATE (SENOKOT S) TABLET PO SCH ×2 (08:54→19:46)
[2022-11-24] MEDS: LACTULOSE SYRUP 10GM/15ML (ENULOSE) 30ML UDC PO SCH ×2 (08:54→19:46)
--- NOTE | 2022-11-24 10:29 | Cardiology Progress Note ---
Subjective Date Seen by Provider: Nov 24, 2022 Time Seen by Provider: 10:28 Subjective/Events-last exam Patient is laying down in bed, feeling better today. No new complaint Review of Systems General: No Chills, No Night Sweats, No Fatigue, No Malaise, No Appetite, No Other HEENT: No Head Aches, No Visual Changes, No Eye Pain, No Ear Pain, No Dysphasia, No Sinus Congestion, No Post Nasal Drip, No Sore Throat, No Other Pulmonary: No Dyspnea, No Cough, No Pleuritic Chest Pain, No Other Cardiovascular: No: Chest Pain, Palpitations, Orthopnea, Paroxysmal Noc. Dyspnea, Edema, Lt Headedness, Other Objective-Cardiology Exam Last Set of Vital Signs Vital Signs 11/24/22 11/24/22 02:49 08:02 Pulse Ox 97 O2 Delivery Nasal Cannula O2 Flow Rate 2.00 FiO2 97 I&O Intake and Output 11/24/22 00:00 Intake Total 1512 ml Output Total 175 ml Balance 1337 ml Intake Oral 1512 ml Output Urine Total 175 ml # Voids 7 # Bowel Movements 3 General: Alert, Oriented X3, Cooperative HEENT: Atraumatic, PERRLA Neck: Supple, No JVD, No Thyromegaly Lungs: Normal Air Movement, Other (Bilateral wheezing) Heart: Regular Rate, Normal S1, Normal S2, No Murmurs Abdomen: Normal Bowel Sounds, Soft, No Tenderness, No Hepatosplenomegaly, No Masses Extremities: No Clubbing, No Cyanosis, Normal Pulses, No Tenderness/Swelling, Other (Pedal edema) Skin: No Rashes, No Breakdown, No Significant Lesion Neuro: Normal Gait, Normal Speech, Strength at 5/5 X4 Ext, Normal Tone, Sensation Intact Psych/Mental Status: Mental Status NL, Mood NL Results Lab Laboratory Tests 11/24/22 05:07 A/P-Cardiology Admission Diagnosis Chest pain Non-ST elevation myocardial infarction Coronary artery disease Hypertension Assessment/Plan Chest pain, minimal elevation in troponin Non-ST elevation myocardial infarction Probably secondary to small vessel disease. Known to have nonobstructive disease by cardiac catheterization in August 2022. Intolerant to nitroglycerin with headache, tolerating Ranexa well Shortness of breath, wheezing, questionable early infiltrate on chest x-ray Patient is feeling better. No new complaint. Continue to monitor Dysuria, had history of recurrent UTI. Managed by primary care physician Coronary artery disease, cardiac catheterization carried out in 2012 and 2014 with diffuse atherosclerotic plaques. Nonobstructive disease. Cardiac catheterization was carried out by Dr. Houser on August 26, 2022 with nonobstructive coronary artery disease. iFR was done through the circumflex artery. Review of his cardiac catheterization film showed calcification in the left main and the proximal LAD with mild to moderate disease, 50% stenosis in the mid circumflex artery with IFR 0.97. Small vessel disease distally, dominant circumflex artery. 2D echo done on August 26, 2022 with normal LV size and function. Ejection fraction 55 to 60%, grade 2 diastolic dysfunction, biatrial enlargement, PA pressure 15 mmHg Hypertension, starting metoprolol ER 25 mg daily Patient has pacemaker Continue to monitor Hyperlipidemia, well controlled on current medication, continue to monitor History of dual-chamber pacemaker due to sinus node dysfunction, he has history of sinus pause for 3.2 second. Continue to monitor History of avascular necrosis of the hip, underwent multiple hip surgeries in the past and hip replacements. History of gastroesophageal reflux disease, COPD. Polysubstance use for pain control Previous history of tobaccoism Okay for discharge from cardiology standpoint and follow-up as an outpatient SKYLA SQUIRES MD Nov 24, 2022 10:29
[2022-11-24 11:30] VITALS: BP 161/73
[2022-11-24] MEDS: ENOXAPARIN 40 MG/0.4 ML (LOVENOX) SYR SC SCH (11:56)
--- NOTE | 2022-11-24 13:56 | Progress Note ---
Subjective Subjective/Events-last exam Pt states he is still feeling fairly short of breath and weak. He says he uses around 6 lpm of oxygen at home. He notes he had a nebulizer which he thinks works better but it broke about a year ago. He says he is having trouble reaching his new worker, and isn't sure how he'll get home or into the house. He is able to transfer but cannot bear weight. Objective Exam Last Set of Vital Signs Vital Signs Date Time Temp Pulse Resp B/P (MAP) Pulse Ox O2 Delivery O2 Flow Rate FiO2 11/24/22 11:30 37.3 74 21 161/73 (102) 95 Nasal Cannula 2.00 11/24/22 02:49 97 Capillary Refill : Less Than 3 Seconds I&O Intake and Output 11/24/22 00:00 Intake Total 1512 ml Output Total 175 ml Balance 1337 ml Intake Oral 1512 ml Output Urine Total 175 ml # Voids 7 # Bowel Movements 3 General: Alert, No Acute Distress Lungs: Other (diffuse expiratory wheezing) Heart: Regular Rate Neuro: Normal Speech Psych/Mental Status: Mood NL Results/Procedures Lab Laboratory Tests 11/24/22 05:07: White Blood Count 9.7, Red Blood Count 4.00L, Hemoglobin 12.6L, Hematocrit 39L, Mean Corpuscular Volume 96, Mean Corpuscular Hemoglobin 32, Mean Corpuscular Hemoglobin Concent 33, Red Cell Distribution Width 14.2, Platelet Count 236, Mean Platelet Volume 11.6, Immature Granulocyte % (Auto) 1, Neutrophils (%) (Auto) 90H, Lymphocytes (%) (Auto) 6L, Monocytes (%) (Auto) 4, Eosinophils (%) (Auto) 0, Basophils (%) (Auto) 0, Neutrophils # (Auto) 8.7H, Lymphocytes # (Auto) 0.6L, Monocytes # (Auto) 0.4, Eosinophils # (Auto) 0.0, Basophils # (Auto) 0.0, Immature Granulocyte # (Auto) 0.1, Sodium Level 134L, Potassium Level 4.6, Chloride Level 103, Carbon Dioxide Level 21, Anion Gap 10, Blood Urea Nitrogen 33H, Creatinine 1.18, Estimat Glomerular Filtration Rate 66, BUN/Creatinine Ratio 28, Glucose Level 146H, Calcium Level 9.2, Corrected Calcium 9.8, Total Bilirubin 0.5, Aspartate Amino Transf (AST/SGOT) 16, Alanine Aminotransferase (ALT/SGPT) 11, Alkaline Phosphatase 97, Total Protein 6.4, Albumin 3.3 Microbiology 11/23/22 Urine Culture - Preliminary, Resulted Proteus species Assessment/Plan Assessment/Plan (1) Pneumonia Status: Acute Assessment & Plan: Possible LLL pneumonia on initial CXR. Levofloxacin. Qualifiers: Qualified Codes: J18.9 - Pneumonia, unspecified organism (2) COPD exacerbation Status: Acute Assessment & Plan: Prednisone and levofloxacin started. Duonebs q4. Supplemental oxygen as needed. Per patient, was on home O2, but unable to find that he has had orders for home O2 in the past, nor had any delivered from local companies. (3) Urinary tract infection Status: Acute Assessment & Plan: Levofloxacin for COPD exacerbation and UTI Qualifiers: Qualified Codes: N30.00 - Acute cystitis without hematuria (4) Elevated troponin I level Status: Acute Assessment & Plan: Trending up but still at low range overall, Cardiology consulted, appreciate recommendations. 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 Per patient he can transfer carefully, but cannot bear weight. (10) DVT prophylaxis Status: Acute Assessment & Plan: Enoxaparin Clinical Quality Measures AMI/AHF: ASA po Prior to arrival: Yes ARIS FRANCIS MD Nov 24, 2022 13:56
[2022-11-24 16:43] VITALS: BP 165/74
[2022-11-24 19:00] VITALS: BP 158/65
[2022-11-24] MEDS: MONTELUKAST 10 MG (SINGULAIR) TAB PO SCH (21:46)
[2022-11-24] MEDS: GABAPENTIN 300 MG (NEURONTIN) CAP PO SCH (21:47)
[2022-11-24] MEDS: MELATONIN 3 MG TABLET PO PRN (21:47)
[2022-11-24 23:14] VITALS: BP 124/65
[2022-11-25] MEDS: RT-ALBUTEROL SULF 2.5 MG/3 ML PRE-MIX VIAL INH SCH ×2 (02:53→07:41)
[2022-11-25 03:24] VITALS: BP 155/86
[2022-11-25 05:48] LABS: BASOPHILS % (AUTO) 0 % (0-10); EOSINOPHILS % (AUTO) 0 % (0-10); HEMATOCRIT 38 % (40-54); HEMOGLOBIN 12.4 g/dL (13.3-17.7); LYMPHOCYTES # (AUTO) 0.5 10^3/uL (1.0-4.0); LYMPHOCYTES % (AUTO) 6 % (12-44); MEAN CORPUSCULAR HEMOGLOBIN 32 pg (25-34); MEAN CORPUSCULAR HGB CONC 33 g/dL (32-36); MEAN CORPUSCULAR VOLUME 97 fL (80-99); MONOCYTES # (AUTO) 0.5 10^3/uL (0.0-1.0); MONOCYTES % (AUTO) 5 % (0-12); NEUTROPHILS # (AUTO) 7.6 10^3/uL (1.8-7.8); NEUTROPHILS % (AUTO) 88 % (42-75); PLATELET COUNT 248 10^3/uL (130-400); WHITE BLOOD COUNT 8.7 10^3/uL (4.3-11.0)
[2022-11-25] MEDS: BETHANECHOL 10 MG (URECHOLINE) TAB PO SCH ×2 (06:03→11:46)
[2022-11-25] MEDS: PANTOPRAZOLE 40 MG (PROTONIX) TAB PO SCH (06:03)
[2022-11-25 06:17] LABS: ALBUMIN 3.2 GM/DL (3.2-4.5); BILIRUBIN,TOTAL 0.5 MG/DL (0.1-1.0); CALCIUM 9.3 MG/DL (8.5-10.1); CREATININE SERUM 1.24 MG/DL (0.60-1.30); POTASSIUM 4.3 MMOL/L (3.6-5.0); TOTAL PROTEIN 6.3 GM/DL (6.4-8.2)
[2022-11-25 08:08] VITALS: BP 127/59
[2022-11-25] MEDS: GABAPENTIN 300 MG (NEURONTIN) CAP PO SCH ×2 (09:11→11:46)
[2022-11-25] MEDS: RANOLAZINE ER 500 MG TAB (RANEXA) PO SCH (09:11)
[2022-11-25] MEDS: PHENAZOPYRIDINE 100 MG (PYRIDIUM) TABLET PO SCH ×2 (09:11→13:15)
[2022-11-25] MEDS: DOCUSATE SODIUM 100 MG (COLACE) CAP PO SCH (09:11)
[2022-11-25] MEDS: ASPIRIN E.C. 81 MG (ECOTRIN) TAB PO SCH (09:11)
[2022-11-25] MEDS: SENNA W/DOCUSATE (SENOKOT S) TABLET PO SCH (09:11)
[2022-11-25] MEDS: LACTULOSE SYRUP 10GM/15ML (ENULOSE) 30ML UDC PO SCH (09:11)
[2022-11-25] MEDS: predniSONE 20 MG TAB PO SCH (09:11)
--- NOTE | 2022-11-25 09:18 | Cardiology Progress Note ---
Subjective Date Seen by Provider: Nov 25, 2022 Time Seen by Provider: 08:20 Subjective/Events-last exam Patient is sitting up in bed, complaining of dysuria and wheezing this morning. Denies any chest pain Objective-Cardiology Exam Last Set of Vital Signs Vital Signs 11/24/22 11/25/22 02:49 08:08 Temp 36.9 Pulse 88 Resp 18 B/P (MAP) 127/59 (81) Pulse Ox 97 O2 Delivery Nasal Cannula O2 Flow Rate 2.00 FiO2 97 I&O Intake and Output 11/25/22 00:00 Intake Total 1220 ml Output Total 850 ml Balance 370 ml Intake Oral 1220 ml Output Urine Total 850 ml # Bowel Movements 2 General: Alert, No Acute Distress HEENT: Atraumatic, PERRLA Neck: Supple, No JVD, No Thyromegaly Lungs: Other (diffuse expiratory wheezing) Heart: Regular Rate Abdomen: Normal Bowel Sounds, Soft, No Tenderness, No Hepatosplenomegaly, No Masses Extremities: No Clubbing, No Cyanosis, Normal Pulses, No Tenderness/Swelling, Other (Pedal edema) Skin: No Rashes, No Breakdown, No Significant Lesion Neuro: Normal Speech Psych/Mental Status: Mood NL Results Lab Laboratory Tests 11/25/22 05:28 A/P-Cardiology Admission Diagnosis Chest pain Non-ST elevation myocardial infarction Coronary artery disease Hypertension Assessment/Plan Chest pain, minimal elevation in troponin Non-ST elevation myocardial infarction Probably secondary to small vessel disease. Known to have nonobstructive disease by cardiac catheterization in August 2022. Intolerant to nitroglycerin with headache, tolerating Ranexa well Shortness of breath, wheezing, questionable early infiltrate on chest x-ray Patient having active wheezing this morning, Continue to monitor Dysuria, had history of recurrent UTI. Managed by primary care physician Coronary artery disease, cardiac catheterization carried out in 2012 and 2014 with diffuse atherosclerotic plaques. Nonobstructive disease. Cardiac catheterization was carried out by Dr. Houser on August 26, 2022 with nonobstructive coronary artery disease. iFR was done through the circumflex artery. Review of his cardiac catheterization film showed calcification in the left main and the proximal LAD with mild to moderate disease, 50% stenosis in the mid circumflex artery with IFR 0.97. Small vessel disease distally, dominant circumflex artery. 2D echo done on August 26, 2022 with normal LV size and function. Ejection fraction 55 to 60%, grade 2 diastolic dysfunction, biatrial enlargement, PA pressure 15 mmHg Hypertension, starting metoprolol ER 25 mg daily Patient has pacemaker Continue to monitor Hyperlipidemia, well controlled on current medication, continue to monitor History of dual-chamber pacemaker due to sinus node dysfunction, he has history of sinus pause for 3.2 second. Continue to monitor History of avascular necrosis of the hip, underwent multiple hip surgeries in the past and hip replacements. History of gastroesophageal reflux disease, COPD. Polysubstance use for pain control Previous history of tobaccoism Supervisory-Addendum Brief Supervisory Addendum Participated in pt care: history, MDM, physical Personally performed: exam, history, MDM Care discussed with: LO Results interpretation: Verified all documentation Notes: Patient was seen and evaluated with Brooks, examination performed, management plan was discussed, agree with the current scribed note, I made few changes to the note using Italic font Patient was seen at bedside, had a rough night, was complaining of pain at his bladder. Dyspnea Having difficulty with moving from his chair. Will need assistance at home. Managed by medical team BROOKS GOLD Nov 25, 2022 09:18 SKYLA SQUIRES MD Nov 25, 2022 12:31
[2022-11-25] MEDS ORDERED: ASPI-1238 PO (10:09)
[2022-11-25] MEDS ORDERED: MONT-40 PO (10:09)
[2022-11-25] MEDS ORDERED: BTH10T PO (10:09)
[2022-11-25] MEDS ORDERED: PANT40TA52 PO (10:09)
[2022-11-25] MEDS ORDERED: OXC5T PO (10:09)
[2022-11-25] MEDS ORDERED: RANO500T3 PO (10:09)
[2022-11-25] MEDS ORDERED: MTP25TSR PO (10:09)
[2022-11-25] MEDS ORDERED: LEVO750T PO (10:09)
[2022-11-25] MEDS ORDERED: PHEN-826 PO (10:09)
[2022-11-25] MEDS ORDERED: PRED10TA22 PO (10:09)
--- NOTE | 2022-11-25 10:11 | D/C HH Face to Face Order ---
D/C Face to Face Orders Reconcile Patient Problems Problems Reviewed?: Yes Instructions for Patient Via [facility], Patient Instructions/FollowUp: PCP 1 week Physician to follow Patient: [facility] Discharge Diet for Home: No Restrictions Patient Problems: UTI Patient Data-Allergies,Ht & Wt Patient Allergies: Coded Allergies: codeine (Verified Allergy, Mild, HIVES...TAKES OXYCODONE & MS CONTIN AT HOME, 03/11/19) streptokinase (Verified Allergy, Unknown, 03/11/19) Height (Feet): 5 Height (Inches): 8.00 Weight (Pounds): 170 Weight (Ounces): 8.0 Home Health Need/Face to Face Date of Face to Face: Nov 25, 2022 Clinical Findings: Generalized weakness and fatigue, Instability, Muscle weakness I have seen Pt [id number]: Yes Discharged To: Home Diagnosis/Conditions: Debility Patient is Homebound due to: CognItive deficits, Muscle weakness Homebound Status Due to the above stated illness, injury or surgical procedure (medical condition or diagnosis) and associated clinical findings, the patient is homebound because of his/her inability to leave home except with aid of a supportive device and/or person AND leaving the home requires a considerable and taxing effort or is medically contraindicated. Pt req the following assistanc: [facility] Nursing Orders Home Health Services Order: Nursing Services, [facility] Cashier-Evaluate & Treat, Physical Therapy-Evaluate & Treat Certify Stmt I certify that this patient is under my care and that I, a nurse practitioner or a physician; a nursing assistant working with me, had a face to face encounter that - meets the physician face to face encounter requirements with this patient as dated. ZOHREH BHANDARI DO Nov 25, 2022 10:11
--- NOTE | 2022-11-25 10:12 | Discharge Summary ---
Discharge Summary Hospital Course Was the Problem List Reviewed?: Yes Problems/Dx: (1) Elevated troponin I level Status: Acute (2) Urinary tract infection due to Proteus (3) COPD exacerbation (4) Coronary artery disease Status: Chronic (5) Chronic narcotic use Status: Chronic Hospital Course Date of Admission: Nov 21, 2022 at 23:47 Admission Diagnosis : Family Physician/Provider: Uriel Cardona MD Date of Discharge: 11/25/22 Discharge Diagnosis: [ ] Hospital Course: Lengthy course after he was admitted for elevated troponin but Dr Trevino evaluated his last cath and revealed small vessel disease so no intervention was required and Ranexa was added to his regimen to prevent angina since nitro products were not tolerated in the past. AECOPD and hypoxia required a longer stay. UTI was dx so Levaquin was added in case it was Pseudomonas and that would cover bronchitis. Prednisone was rxed at DC along with Levaquin and O2 was needed at DC of 2L/min continuously. Labs and Pending Lab Test: Laboratory Tests 11/25/22 05:28: White Blood Count 8.7, Red Blood Count 3.89L, Hemoglobin 12.4L, Hematocrit 38L, Mean Corpuscular Volume 97, Mean Corpuscular Hemoglobin 32, Mean Corpuscular Hemoglobin Concent 33, Red Cell Distribution Width 14.4, Platelet Count 248, Mean Platelet Volume 11.0, Immature Granulocyte % (Auto) 1, Neutrophils (%) (Auto) 88H, Lymphocytes (%) (Auto) 6L, Monocytes (%) (Auto) 5, Eosinophils (%) (Auto) 0, Basophils (%) (Auto) 0, Neutrophils # (Auto) 7.6, Lymphocytes # (Auto) 0.5L, Monocytes # (Auto) 0.5, Eosinophils # (Auto) 0.0, Basophils # (Auto) 0.0, Immature Granulocyte # (Auto) 0.0, Sodium Level 134L, Potassium Level 4.3, Chloride Level 104, Carbon Dioxide Level 20L, Anion Gap 10, Blood Urea Nitrogen 39H, Creatinine 1.24, Estimat Glomerular Filtration Rate 63, BUN/Creatinine Ratio 31, Glucose Level 141H, Calcium Level 9.3, Corrected Calcium 9.9, Total Bilirubin 0.5, Aspartate Amino Transf (AST/SGOT) 40H, Alanine Aminotransferase (ALT/SGPT) 22, Alkaline Phosphatase 79, Total Protein 6.3L, Albumin 3.2 Microbiology 11/23/22 Urine Culture - Preliminary, Resulted Proteus mirabilis Home Meds Active Prednisone 10 Mg Tab.ds.pk 10 Mg PO DAILY Take 4 tabs(40mg)daily,decrease by 1 tab(10MG)daily. Phenazopyridine HCl 100 Mg Tablet 100 Mg PO TIDPC Pantoprazole Sodium 40 Mg Tablet.dr 40 Mg PO DAILY@0700 Montelukast Sodium 10 Mg Tablet 10 Mg PO HS Oxyir Tablet (Oxycodone HCl) 5 Mg Tab 5 Mg PO Q4H PRN Aspirin EC (Aspirin) 81 Mg Tablet.dr 81 Mg PO DAILY Metoprolol Succinate 25 Mg Tab.er.24h 25 Mg PO DAILY Ranexa (Ranolazine) 500 Mg Tab.er.12h 500 Mg PO BID Urecholine (Bethanechol Chloride) 10 Mg Tablet 10 Mg PO ACHS Levofloxacin 750 Mg Tablet 750 Mg PO DAILY@1100 Reported Multi-Vitamin Daily (Multivitamin) 1 Each Tablet 1 Each PO DAILY Ibuprofen 200 Mg Tablet 400 Mg PO Q8H PRN TAKES 2 (200MG) TABS Nitroglycerin 0.4 Mg Tab.subl 0.4 Mg SL UD PRN Neurontin (Gabapentin) 300 Mg Capsule 300 Mg PO TID Ventolin Hfa (Albuterol Sulfate) 1 Puff Puff 2 Puff INH Q6H PRN Assessment/Pt Instructions PCP 1 week Discharge Planning: <30 minutes discharge planning Discharge Instructions Discharge Diet: No Restrictions Discharge Physical Examination Vital Signs Vital Signs Date Time Temp Pulse Resp B/P (MAP) Pulse Ox O2 Delivery O2 Flow Rate FiO2 11/25/22 08:08 36.9 88 18 127/59 (81) 97 Nasal Cannula 2.00 11/24/22 02:49 97 General Appearance: No Apparent Distress, WD/WN, Chronically ill Respiratory: No Accessory Muscle Use, No Respiratory Distress, Wheezing Allergies: Coded Allergies: codeine (Verified Allergy, Mild, HIVES...TAKES OXYCODONE & MS CONTIN AT HOME, 03/11/19) streptokinase (Verified Allergy, Unknown, 03/11/19) Discharge Summary Date of Admission Nov 21, 2022 at 23:47 Date of Discharge Discharge Date: Nov 25, 2022 Admission Diagnosis Assessment: NSTEMI Bilateral hip dysfunction status post multiple surgeries remains unable to ambulate Depression COPD with acute exacerbation Former smoker Plan: Home meds Moved to fourth floor Steroids Nebulizers Oxygen supplementation Discharge Diagnosis Assessment: NSTEMI-no intervention being pursued since multivessel disease on last cath Bilateral hip dysfunction status post multiple surgeries remains unable to ambulate Depression COPD with acute exacerbation Former smoker Acute UTI with dysuria Plan: Home meds Start Levaquin empirically Steroids Nebulizers Oxygen supplementation Clinical Quality Measures AMI/AHF: ASA po Prior to arrival: Yes ZOHREH BHANDARI DO Nov 25, 2022 10:12
[2022-11-25] MEDS: ENOXAPARIN 40 MG/0.4 ML (LOVENOX) SYR SC SCH (11:47)
[2022-11-25 12:46] VITALS: BP 165/76
[2022-11-25 14:30] VITALS: BP 165/76
[2022-11-25 16:00] VITALS: BP 157/72
== END 2022-11-25 16:30 | disposition home health service (06) ==
LOC: EDUNIT# 22:26 → ER 22:28 → CSD 23:47 → 4TH 11-22 13:45
PROVIDERS: ADMIT Internal Medicine; ATTEND Family Medicine
DX: I21.4 Non-ST elevation (NSTEMI) myocardial infarction (principal); I25.119 Atherosclerotic heart disease of native coronary artery with unspecified angina pectoris; J44.1 Chronic obstructive pulmonary disease with (acute) exacerbation; N39.0 Urinary tract infection, site not specified; I10 Essential (primary) hypertension; E78.5 Hyperlipidemia, unspecified; I49.5 Sick sinus syndrome; K21.9 Gastro-esophageal reflux disease without esophagitis; Z99.3 Dependence on wheelchair; Z87.891 Personal history of nicotine dependence; Z95.810 Presence of automatic (implantable) cardiac defibrillator; F32.A Depression, unspecified; B96.4 Proteus (mirabilis) (morganii) as the cause of diseases classified elsewhere; G89.29 Other chronic pain; Z79.899 Other long term (current) drug therapy; Z88.5 Allergy status to narcotic agent; Z88.8 Allergy status to other drugs, medicaments and biological substances
CPT/HCPCS: 36415; 71045; 80053; 80061; 81000; 83690; 83735; 83880; 84484; 85007; 85025; 85027; 85610; 85730; 87077; 87088; 87186; 93005; 93041; 94640; 94760; 94761; 96372; G0378

== ENCOUNTER 2022-12-09 16:21 | Inpatient (IN) | payer MEDICARE, MEDICAID ==
[~2022-12-09] VITALS: Ht 172.7 cm; Wt 93.8 kg
[~2022-12-09 16:21] MED LIST changes: +BTH10T PO; +LEVO750T PO; +MONT-40 PO; +MTP25TSR PO; +MULT-974 PO; +NITR0.4T42 SL; +PANT40TA52 PO; +PHEN-826 PO; +PRED10TA22 PO; +RANO500T3 PO
--- NOTE | 2022-12-09 16:47 | Diagnostic Imaging Report ---
EXAMINATION: Chest, one view. HISTORY: Short of breath. COMPARISON: 11/23/2022. FINDINGS: There is right base atelectasis. Lung volumes are small. No pneumothorax. No edema or pneumonia. Heart size is normal. A pacemaker is present. IMPRESSION: 1. Small lung volumes with right base atelectasis. Dictated by: Dictated on workstation # [id number]
--- NOTE | 2022-12-09 16:54 | ED General ---
General Chief Complaint: Respiratory Problems Stated Complaint: SOA Nursing Triage Note: PT PRESENTS TO ED VIA EMS FROM HOME WITH C/O INCREASED SOB X 2 DAYS. PT DC'D FROM INPT 2 WEEKS AGO FOR PNA. PT'S BASELINE IS 6L O2 PER NC. AUDIBLE WHEEZING HEARD AT TRIAGE Allergies and Home Medications Allergies Coded Allergies: codeine (Verified Allergy, Mild, HIVES...TAKES OXYCODONE & MS CONTIN AT HOME, 03/11/19) streptokinase (Verified Allergy, Unknown, 03/11/19) Patient Home Medication List Albuterol Sulfate (Ventolin Hfa) 1 Puff Puff, 2 PUFF INH Q6H PRN for SHORTNESS OF BREATH, (Reported) Entered as Reported by: KARINA RAPHAEL on 08/06/20 1606 Aspirin (Aspirin EC) 81 Mg Tablet.dr, 81 MG PO DAILY Prescribed by: ZOHREH BHANDARI on 11/25/22 1009 Bethanechol Chloride (Urecholine) 10 Mg Tablet, 10 MG PO ACHS Prescribed by: ZOHREH BHANDARI on 11/25/22 1009 Gabapentin (Neurontin) 300 Mg Capsule, 300 MG PO TID, (Reported) Entered as Reported by: KARINA RAPHAEL on 08/01/22 1517 Levofloxacin (Levofloxacin) 750 Mg Tablet, 750 MG PO DAILY@1100 Prescribed by: ZOHREH BHANDARI on 11/25/22 1009 Metoprolol Succinate (Metoprolol Succinate) 25 Mg Tab.er.24h, 25 MG PO DAILY Prescribed by: ZOHREH BHANDARI on 11/25/22 1009 Montelukast Sodium (Montelukast Sodium) 10 Mg Tablet, 10 MG PO HS Prescribed by: ZOHREH BHANDARI on 11/25/22 1009 Multivitamin (Multi-Vitamin Daily) 1 Each Tablet, 1 EACH PO DAILY, (Reported) Entered as Reported by: CHAVA HERRERA on 11/24/22 0839 Nitroglycerin (Nitroglycerin) 0.4 Mg Tab.subl, 0.4 MG SL UD PRN for CHEST PAIN (ANGINA), (Reported) Entered as Reported by: CHAVA HERRERA on 11/24/22 0838 Oxycodone Hcl (Oxyir Tablet) 5 Mg Tab, 5 MG PO Q4H PRN for PAIN-MODERATE (5-7) Prescribed by: ZOHREH BHANDARI on 11/25/22 1010 Pantoprazole Sodium (Pantoprazole Sodium) 40 Mg Tablet.dr, 40 MG PO DAILY@0700 Prescribed by: ZOHREH BHANDARI on 11/25/22 1009 Phenazopyridine HCl (Phenazopyridine HCl) 100 Mg Tablet, 100 MG PO TIDPC Prescribed by: ZOHREH BHANDARI on 11/25/22 1009 Prednisone (Prednisone) 10 Mg Tab.ds.pk, 10 MG PO DAILY Prescribed by: ZOHREH BHANDARI on 11/25/22 1009 Ranolazine (Ranexa) 500 Mg Tab.er.12h, 500 MG PO BID Prescribed by: ZOHREH BHANDARI on 11/25/22 1009 Past Ksbubth-Hlteds-Ehhoxa Hx Immunizations Up To Date Tetanus Booster (TDap): Less than 5yrs PED Vaccines UTD: No First/Initial COVID19 Vaccinat: x2 Seasonal Allergies Seasonal Allergies: No Past Medical History Surgery/Hospitalization HX: bilateral hip replacement/removal, cardiac cath, appendectomy, chronic pain, mi, cad, htn, constipation, non-compliance Surgeries: Yes (BILAT HIP REPLACEMENTS X 22; WOUND DEBRIDEMENTS) Abdominal, Appendectomy, Cardiac, Defibrillator, Joint Replacement, Orthopedic, Pacemaker Respiratory: Yes Asthma, COPD Currently Using CPAP: No Currently Using BIPAP: No Cardiac: Yes (PACEMAKER, CARDIAC ARREST, SELF - REPORTED [place] X 8; CHF) Atrial Fibrillation, Chronic Edema/Swelling, Coronary Artery Disease, Congenital Heart Disease, Heart Attack, Hypertension, Irregular Heartbeat Neurological: Yes Neuropathy Reproductive Disorders: No Sexually Transmitted Disease: No HIV/AIDS: No Genitourinary: Yes Neurogenic Bladder Gastrointestinal: Yes Abdominal Hernia, Chronic Constipation Musculoskeletal: Yes (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;CHRONIC PAIN) Arthritis, Chronic Back Pain, Fractures Endocrine: Yes Diabetes, Insulin dep HEENT: Yes Dysphagia Loss of Vision: Denies Hearing Impairment: Hard of Hearing Cancer: No Psychosocial: Yes Suicide Attempts, Depression Integumentary: Yes (recurrent wound issues) Recent Skin Changes Blood Disorders: No Adverse Reaction/Blood Tranf: Yes (HIGH FEVER AND CHILLS) Family Medical History COPD Diabetes mellitus No Pertinent Family Hx Adopted, unknown FH SOCIAL HISTORY: -SMOKED IN THE PAST, QUIT -ETOH--LONG HISTORY OF ABUSE -DRUGS--EXTENSIVE ABUSE OF RX DRUGS, ESPECIALLY OPIATES PAST SURGICAL HISTORY: -MULTIPLE FAILED BILATERAL HIP REPLACEMENTS, WITH EVENTUAL REMOVAL OF BOTH FEMORAL HEADS -CARDIAC CATH 08/26/[address] LOPEZ: CORONARY ANGIOGRAPHY: Coronary calcification is seen. Left main coronary artery is free of significant disease. Left anterior descending artery does not exhibit significant disease. Left circumflex artery has 30% to 40% mid vessel stenosis at the site of the origin of a large obtuse marginal branch. IFR across this lesion is 0.96. This indicates that the lesion is hemodynamically nonsignificant. Right coronary artery is codominant with the left circumflex artery. It does not exhibit significant disease. LEFT VENTRICULAR ANGIOGRAPHY: Left ventricular angiography was carried out in the right anterior oblique projection. Global left ventricular systolic function is normal. No regional wall motion abnormalities seen. Left ventricular ejection fraction is approximately 60%. CONCLUSIONS: 1. Mild to moderate coronary artery disease, nonobstructive. 2. Normal global left ventricular systolic function with ejection fraction approximately 60%. 3. Normal left ventricular end-diastolic pressure. DISCUSSION AND RECOMMENDATIONS: Based on results of the study, it appears appropriate to continue a conservative approach. Physical Exam Vital Signs Vital Signs - First Documented 12/09/22 16:21 Temp 36.2 Pulse 87 Resp 26 B/P (MAP) 122/66 (84) Pulse Ox 94 O2 Delivery Nasal Cannula O2 Flow Rate 6.00 FiO2 94 Capillary Refill : Less Than 3 Seconds Height, Weight, BMI Height: 5'8.00" Weight: 170lbs. 8.0oz. [id number]; BMI Method:Stated Focused Exam Lactate Level 12/09/22 16:55: Lactic Acid Level 2.75*H Lactic Acid Level Laboratory Tests Test 12/09/22 16:55 Lactic Acid Level 2.75 MMOL/L (0.50-2.00) *H Progress/Results/Core Measures Suspected Sepsis SIRS Temperature: Pulse: 87 Respiratory Rate: 26 Laboratory Tests 12/09/22 16:55: White Blood Count 13.0H Blood Pressure 122 /66 Mean: 84 12/09/22 16:55: Lactic Acid Level 2.75*H Laboratory Tests 12/09/22 16:55: Creatinine 1.97H, INR Comment 0.9, Platelet Count 362, Total Bilirubin 0.6 Results/Orders Lab Results Laboratory Tests Test 12/09/22 16:45 12/09/22 16:55 12/09/22 17:13 12/09/22 19:40 Range/Units Influenza Type A (RT-PCR) Not Detected Not Detecte Influenza Type B (RT-PCR) Not Detected Not Detecte SARS-CoV-2 RNA (RT-PCR) Not Detected Not Detecte White Blood Count 13.0 H 4.3-11.0 10^3/uL Red Blood Count 4.47 4.30-5.52 10^6/uL Hemoglobin 14.1 13.3-17.7 g/dL Hematocrit 42 40-54 % Mean Corpuscular Volume 94 80-99 fL Mean Corpuscular Hemoglobin 32 25-34 pg Mean Corpuscular Hemoglobin Concent 33 32-36 g/dL Red Cell Distribution Width 15.3 H 10.0-14.5 % Platelet Count 362 130-400 10^3/uL Mean Platelet Volume 9.4 9.0-12.2 fL Immature Granulocyte % (Auto) 0 % Neutrophils (%) (Auto) 57 42-75 % Lymphocytes (%) (Auto) 32 12-44 % Monocytes (%) (Auto) 8 0-12 % Eosinophils (%) (Auto) 1 0-10 % Basophils (%) (Auto) 1 0-10 % Neutrophils # (Auto) 7.4 1.8-7.8 X 10^3 Lymphocytes # (Auto) 4.2 H 1.0-4.0 X 10^3 Monocytes # (Auto) 1.1 H 0.0-1.0 X 10^3 Eosinophils # (Auto) 0.1 0.0-0.3 10^3/uL Basophils # (Auto) 0.1 0.0-0.1 10^3/uL Immature Granulocyte # (Auto) 0.0 0.0-0.1 10^3/uL Erythrocyte Sedimentation Rate 14 0-30 MM/HR Prothrombin Time 12.5 12.2-14.7 SEC INR Comment 0.9 0.8-1.4 Activated Partial Thromboplast Time 25 24-35 SEC D-Dimer 0.71 H 0.00-0.49 UG/ML Sodium Level 142 135-145 MMOL/L Potassium Level 3.6 3.6-5.0 MMOL/L Chloride Level 100 98-107 MMOL/L Carbon Dioxide Level 29 21-32 MMOL/L Anion Gap 13 5-14 MMOL/L Blood Urea Nitrogen 29 H 7-18 MG/DL Creatinine 1.97 H 0.60-1.30 MG/DL Estimat Glomerular Filtration Rate 36 BUN/Creatinine Ratio 15 Glucose Level 86 70-105 MG/DL Lactic Acid Level 2.75 *H 0.50-2.00 MMOL/L Calcium Level 8.6 8.5-10.1 MG/DL Corrected Calcium 8.9 8.5-10.1 MG/DL Magnesium Level 1.6 1.6-2.4 MG/DL Total Bilirubin 0.6 0.1-1.0 MG/DL Aspartate Amino Transf (AST/SGOT) 24 5-34 U/L Alanine Aminotransferase (ALT/SGPT) 14 0-55 U/L Alkaline Phosphatase 104 40-136 U/L Total Creatine Kinase 228 H 30-200 U/L Creatine Kinase MB 3.8 <6.6 NG/ML Myoglobin 248.9 H 10.0-92.0 NG/ML Troponin I 0.053 H <0.028 NG/ML C-Reactive Protein High Sensitivity 2.71 H 0.00-0.50 MG/DL B-Type Natriuretic Peptide 82.0 <100.0 PG/ML Total Protein 6.8 6.4-8.2 GM/DL Albumin 3.6 3.2-4.5 GM/DL Blood Gas Puncture Site LEFT RADIAL Blood Gas Patient Temperature 37 Arterial Blood pH 7.39 7.37-7.43 Arterial Blood Partial Pressure CO2 49 H 35-45 MMHG Arterial Blood Partial Pressure O2 87 79-93 MMHG Arterial Blood HCO3 29 H 23-27 MMOL/L Arterial Blood Total CO2 30.3 21.0-31.0 MMOL/L Arterial Blood Oxygen Saturation 96 94-100 % Arterial Blood Base Excess 4.0 H -2.5-2.5 MMOL/L Raudel Test POSITIVE Blood Gas Ventilator Setting NO Blood Gas Inspired Oxygen 4 L My Orders Orders - WILFRED CAMPBELL DO Ed Iv/Invasive Line Start (12/09/22 16:28) Ekg Tracing (12/09/22 16:28) O2 (12/09/22 16:28) Monitor-Rhythm Ecg Trace Only (12/09/22 16:28) Arterial Blood Gas (12/09/22 16:28) Bnp Becker (12/09/22 16:28) Cbc With Automated Diff (12/09/22 16:28) Comprehensive Metabolic Panel (12/09/22 16:28) Creatine Kinase (12/09/22 16:28) Creatine Kinase Mb (12/09/22 16:28) Hs C Reactive Protein (12/09/22 16:28) Fibrin Degradation Products (12/09/22 16:28) Lactic Acid Analyzer (12/09/22 16:28) Magnesium (12/09/22 16:28) Protime With Inr (12/09/22 16:) Partial Thromboplastin Time (12/09/22 16:28) Blood Culture (12/09/22 16:28) Erythrocyte Sedimentation Rate (12/09/22 16:28) Myoglobin Serum (12/09/22 16:28) Troponin I Becker (12/09/22 16:28) Chest 1 View, Ap/Pa Only (12/09/22 16:28) Covid 19 Inhouse Test (12/09/22 16:28) Influenza A And B By Pcr (12/09/22 16:28) Isolation Central Supply Req (12/09/22 16:28) Shoulder, Left, 3 Views (12/09/22 16:54) Cefepime Injection (Maxipime Injection) (12/09/22 17:00) Arterial Blood Draw - Obtain (12/09/22 ) Catheter(Urinary) Insert & Ass 03,15 (12/09/22 17:41) Ua Culture If Indicated (12/09/22 17:41) Lidocaine 2% (Urojet) (Xylocaine Urojet) (12/09/22 17:45) Albuterol/Ipra Inhalation Soln (Duoneb I (12/09/22 18:15) Dexamethasone Injection (Decadron Injec (12/09/22 18:15) Methylprednisolone Sod Succ (Solu-Medrol (12/09/22 18:07) Svn Small Volume Nebulizer (12/09/22 18:07) Medications Given in ED Current Medications Medications Dose Ordered Sig/Carl Route Start Time Stop Time Status Last Admin Dose Admin Albuterol/ Ipratropium 3 ml ONCE ONCE INH 12/09/22 18:15 12/09/22 18:16 DC 12/09/22 18:49 3 ML Cefepime HCl 1000 mg/Sodium Chloride 50 ml @ 100 mls/hr ONCE ONCE IV 12/09/22 17:00 12/09/22 17:29 DC 12/09/22 18:46 100 MLS/HR Dexamethasone Sodium Phosphate 20 mg ONCE ONCE IH 12/09/22 18:15 12/09/22 18:16 DC 12/09/22 18:49 20 MG Vital Signs/I&O 12/09/22 12/09/22 12/09/22 12/09/22 16:21 16:21 17:04 18:50 Temp 36.2 Pulse 87 Resp 26 B/P (MAP) 122/66 (84) Pulse Ox 94 97 O2 Delivery Nasal Cannula Nasal Cannula Nasal Cannula Nasal Cannula O2 Flow Rate 6.00 6.00 6.00 4.00 FiO2 94 12/09/22 19:08 Pulse 84 Resp 18 B/P (MAP) 92/51 (65) Pulse Ox 97 O2 Delivery Nasal Cannula O2 Flow Rate 4.00 Capillary Refill : Less Than 3 Seconds Blood Pressure Mean: 84 Progress Note : Progress Note PT WISHES TO BE A FULL CODE Diagnostic Imaging Comments CXR--PER RADIOLOGIST REPORT AT 1754 FINDINGS: There is right base atelectasis. Lung volumes are small. No pneumothorax. No edema or pneumonia. Heart size is normal. A pacemaker is present. IMPRESSION: 1. Small lung volumes with right base atelectasis. RIGHT SHOULDER XRAYS--PER RADIOLOGIST REPORT AT 1820 FINDINGS: No acute fracture or dislocation. Hypertrophic changes of the acromioclavicular joint. Degenerative changes of the humeral head with minimal sclerosis. Partial visualization of a left-sided pacemaker. IMPRESSION: 1. Negative for acute bony abnormality of the shoulder. Reviewed: Reviewed by Md Departure Departure-Patient Inst. Referrals: OLEGARIO ROSENTHAL MD (PCP/Family) Primary Care Physician WILFRED CAMPBELL DO Dec 09, 2022 16:54
[2022-12-09] MEDS ORDERED: CEFEPIME INJECTION 1,000 MG in NS (IVPB) 50 ML IV ONE (17:00)
[2022-12-09 17:09] LABS: BASOPHILS # (AUTO) 0.1 10^3/uL (0.0-0.1); BASOPHILS % (AUTO) 1 % (0-10); EOSINOPHILS # (AUTO) 0.1 10^3/uL (0.0-0.3); EOSINOPHILS % (AUTO) 1 % (0-10); HEMATOCRIT 42 % (40-54); HEMOGLOBIN 14.1 g/dL (13.3-17.7); LYMPHOCYTES # (AUTO) 4.2 X 10^3 (1.0-4.0); LYMPHOCYTES % (AUTO) 32 % (12-44); MEAN CORPUSCULAR HEMOGLOBIN 32 pg (25-34); MEAN CORPUSCULAR HGB CONC 33 g/dL (32-36); MEAN CORPUSCULAR VOLUME 94 fL (80-99); MEAN PLATELET VOLUME 9.4 fL (9.0-12.2); MONOCYTES # (AUTO) 1.1 X 10^3 (0.0-1.0); MONOCYTES % (AUTO) 8 % (0-12); NEUTROPHILS # (AUTO) 7.4 X 10^3 (1.8-7.8); NEUTROPHILS % (AUTO) 57 % (42-75); PLATELET COUNT 362 10^3/uL (130-400)
[2022-12-09 17:22] LABS: ABG OXYGEN SATURATION 96 % (94-100); ABG PCO2 49 MMHG (35-45); ABG PH 7.39 (7.37-7.43); ABG PO2 87 MMHG (79-93); ABG TCO2 30.3 MMOL/L (21.0-31.0)
[2022-12-09 17:22] LABS: ALBUMIN 3.6 GM/DL (3.2-4.5); POTASSIUM 3.6 MMOL/L (3.6-5.0)
[2022-12-09 17:23] LABS: CALCIUM 8.6 MG/DL (8.5-10.1)
[2022-12-09 17:23] LABS: ALLENS TEST POSITIVE; INSPIRED O2 4 L; PATIENT TEMP 37; VENTILATOR NO
[2022-12-09 17:24] LABS: FIBRIN DEGRADATION PRODUCTS 0.71 UG/ML (0.00-0.49); INR 0.9 (0.8-1.4); PROTHROMBIN TIME PATIENT 12.5 SEC (12.2-14.7); TOTAL PROTEIN 6.8 GM/DL (6.4-8.2)
--- NOTE | 2022-12-09 17:24 | Diagnostic Imaging Report ---
INDICATION: Shoulder pain. TECHNIQUE: Three views of the left shoulder. CORRELATION STUDY: None. FINDINGS: No acute fracture or dislocation. Hypertrophic changes of the acromioclavicular joint. Degenerative changes of the humeral head with minimal sclerosis. Partial visualization of a left-sided pacemaker. IMPRESSION: 1. Negative for acute bony abnormality of the shoulder. Dictated by: Dictated on workstation # [id number]
[2022-12-09 17:26] LABS: BILIRUBIN,TOTAL 0.6 MG/DL (0.1-1.0)
[2022-12-09 17:28] LABS: CREATININE SERUM 1.97 MG/DL (0.60-1.30)
[2022-12-09 17:30] LABS: MAGNESIUM 1.6 MG/DL (1.6-2.4)
[2022-12-09 17:37] LABS: CREATINE KINASE MB 3.8 NG/ML (<6.6)
[2022-12-09] MEDS ORDERED: LIDOCAINE UROJET 2% GEL 10 ML PKG TOP ONE (17:45)
[2022-12-09 17:46] LABS: ERYTHROCYTE SEDIMENTATION RATE 14 MM/HR (0-30)
[2022-12-09] MEDS ORDERED: methylPREDNISolone 125 MG (Solu-MEDROL) VIAL IV STA (18:07)
[2022-12-09] MEDS ORDERED: RT-ALBUTEROL/IPRATROPIUM 3 ML (DUONEB) VIAL INH ONE (18:15)
[2022-12-09 19:49] LABS: BILIRUBIN,URINE NEGATIVE (NEGATIVE); CLARITY,URINE CLEAR; COLOR,URINE ORANGE; GLUCOSE, URINE (UA) TRACE (NEGATIVE); KETONES,URINE NEGATIVE (NEGATIVE); LEUKOCYTE ESTERASE ,URINE NEGATIVE (NEGATIVE); NITRITE,URINE POSITIVE (NEGATIVE); PROTEIN,URINE TRACE (NEGATIVE)
[2022-12-09 20:13] LABS: BACTERIA,URINE TRACE /HPF
[2022-12-09 20:50] VITALS: BP 131/80
[2022-12-09] MEDS ORDERED: LACTATED RINGERS 1,000 ML IV ONE (21:05)
[2022-12-09] MEDS ORDERED: ACETAMINOPHEN 500 MG TAB (TYLENOL) PO PRN (22:15)
[2022-12-09] MEDS ORDERED: VANCOMYCIN 1 GM/NS 250 ML IVPB IV ONE ×2 (22:30)
[2022-12-09] MEDS: LACTATED RINGERS 1,000 ML IV SCH (22:41)
[2022-12-09] MEDS ORDERED: VANCOMYCIN 750 MG/NS 250 ML IVPB IV ONE ×2 (23:30)
[2022-12-09 23:55] VITALS: BP 118/58
[2022-12-09] MEDS: methylPREDNISolone 125 MG (Solu-MEDROL) VIAL IV SCH (23:55)
[2022-12-10] MEDS: CEFEPIME 1,000 MG/NS 50 ML IVPB IV SCH ×6 (03:01→18:06)
[2022-12-10 03:19] VITALS: BP 119/59
[2022-12-10] MEDS: RT-ALBUTEROL SULF 2.5 MG/3 ML PRE-MIX VIAL INH SCH ×6 (03:30→21:44)
[2022-12-10 05:25] LABS: BASOPHILS % (AUTO) 0 % (0-10); EOSINOPHILS % (AUTO) 0 % (0-10); HEMATOCRIT 36 % (40-54); HEMOGLOBIN 11.8 g/dL (13.3-17.7); LYMPHOCYTES # (AUTO) 0.4 10^3/uL (1.0-4.0); LYMPHOCYTES % (AUTO) 5 % (12-44); MEAN CORPUSCULAR HEMOGLOBIN 31 pg (25-34); MEAN CORPUSCULAR HGB CONC 33 g/dL (32-36); MEAN CORPUSCULAR VOLUME 94 fL (80-99); MEAN PLATELET VOLUME 9.8 fL (9.0-12.2); MONOCYTES # (AUTO) 0.1 10^3/uL (0.0-1.0); MONOCYTES % (AUTO) 1 % (0-12); NEUTROPHILS % (AUTO) 94 % (42-75); PLATELET COUNT 274 10^3/uL (130-400); WHITE BLOOD COUNT 8.5 10^3/uL (4.3-11.0)
[2022-12-10 05:31] LABS: POTASSIUM 4.3 MMOL/L (3.6-5.0)
[2022-12-10 05:33] LABS: TOTAL PROTEIN 5.6 GM/DL (6.4-8.2)
[2022-12-10 05:35] LABS: BILIRUBIN,TOTAL 0.7 MG/DL (0.1-1.0)
[2022-12-10 05:37] LABS: CREATININE SERUM 1.4 MG/DL (0.60-1.30)
[2022-12-10] MEDS: methylPREDNISolone 125 MG (Solu-MEDROL) VIAL IV SCH ×3 (05:38→18:05)
[2022-12-10] MEDS: LACTATED RINGERS 1,000 ML IV SCH ×2 (06:29→14:12)
[2022-12-10] MEDS ORDERED: FLU QUAD HIGH DOSE 240 MCG/0.7 ML 2022-23 (FLUZONE) IM ONE (06:45)
--- NOTE | 2022-12-10 07:52 | Diagnostic Imaging Report ---
INDICATION: Pneumonia, COPD COMPARISON: 12/09/2022 TECHNIQUE: Single radiograph chest obtained 12/10/2022. FINDINGS: Pacer device is again identified with battery pack overlying left chest. The cardiac silhouette is enlarged, though stable. No significant pulmonary vascular congestion. Tiny right pleural effusion is again identified. Patchy predominantly interstitial opacities are seen within the right mid and lower lung as well as within the left lung base, slightly increased since the prior examination. No pneumothorax. No acute osseous abnormality. IMPRESSION: Slightly worsening right greater than left infiltrate versus edema with associated tiny right pleural effusion. Persistent cardiomegaly. Dictated by: Dictated on workstation # [id number]
[2022-12-10 08:56] VITALS: BP 123/60
[2022-12-10] MEDS ORDERED: OXYC5TAB PO (10:10)
[2022-12-10] MEDS ORDERED: BTH10T PO (10:10)
[2022-12-10] MEDS ORDERED: RANO500T6 PO (10:10)
[2022-12-10] MEDS ORDERED: MONT-40 PO (10:10)
[2022-12-10] MEDS ORDERED: PANT40TA52 PO (10:10)
[2022-12-10] MEDS ORDERED: MTP25TSR PO (10:10)
[2022-12-10] MEDS ORDERED: ASPI-1238 PO (10:10)
[2022-12-10 12:44] VITALS: BP 136/65
--- NOTE | 2022-12-10 15:08 | History & Physical ---
CK GUTIERREZ 12/10/22 1508: History of Present Illness History of Present Illness Reason for visit/HPI Patient is a 72yo M with PMH of COPD, on 3L O2 NC at baseline, CHF w/defibillator/pacemaker, CAD, and atrial fibrillation. Two weeks ago the patient was discharged from [facility] after having an NSTEMI and pneumonia. Patient felt good the first few days after discharge but then began feeling short of breath. Patient has been feeling short of breath for the past week and a half now and has developed a dry cough. His shortness of breath worsened two days ago. He has an albuterol inhaler at home that he said was not helping with his symptoms. Patient denied chest pain and light headedness the past two weeks. At home the patient gets around on an electric wheelchair. He is normally able to transfer himself from his bed to his wheelchair but this has been more difficult for him the past few days. He called EMS to bring him to the ER. In the ER patient's RR was 26 and patient was put on 6L O2 NC with oxygen saturation in the 90s. The patient had elevated WBC, creatinine, and lactic ac id. UA was positive for nitrite. Patient was admitted for COPD exacerbation and sepsis. Today the patient was laying in bed awake at the start of the interview. He says he is feeling less short of breath today and his cough has improved. Patient was audibly wheezing throughout the interview. Patient was on 4.5L O2 NC. Patient has a catheter in place but says he doesn't use one at home. Patient denies fevers, chest pain, palpitations, nausea, vomiting, and diarrhea. Date of Admission Dec 09, 2022 at 20:40 Date Seen by a Provider: Dec 10, 2022 Time Seen by a Provider: 09:15 I consulted on this patient on 12/10/22 14:53 Attending Physician Bryanna Valentin MD Admitting Physician Admitting Physician: Bryanna Valentin MD Attending Physician: Bryanna Valentin MD Consult Allergies and Home Medications Allergies Coded Allergies: codeine (Verified Allergy, Mild, HIVES...TAKES OXYCODONE & MS CONTIN AT HOME, 03/11/19) streptokinase (Verified Allergy, Unknown, 03/11/19) Patient Home Medication List Home Medication List Reviewed: Yes Albuterol Sulfate (Ventolin Hfa) 1 Puff Puff, 2 PUFF INH Q6H PRN for SHORTNESS OF BREATH, (Reported) Entered as Reported by: KARINA RAPHAEL on 08/06/20 1606 Last Action: Reviewed Aspirin (Aspirin EC) 81 Mg Tablet.dr, 81 MG PO DAILY, (Reported) Entered as Reported by: KARINA RAPHAEL on 12/10/22 101 Last Action: Continued Bethanechol Chloride (Urecholine) 10 Mg Tablet, 20 MG PO BID, (Reported) Entered as Reported by: KARINA RAPHAEL on 12/10/221009 Last Action: Continued Gabapentin (Neurontin) 300 Mg Capsule, 300 MG PO TID, (Reported) Entered as Reported by: KARINA RAPHAEL on 08/01/22 1517 Last Action: Reviewed Metoprolol Succinate (Metoprolol Succinate) 25 Mg Tab.er.24h, 25 MG PO DAILY, (Reported) Entered as Reported by: KARINA RAPHAEL on 12/10/22 101 Last Action: Continued Montelukast Sodium (Montelukast Sodium) 10 Mg Tablet, 10 MG PO DAILY, (Reported) Entered as Reported by: KARINA RAPHAEL on 12/10/221009 Last Action: Continued Nitroglycerin (Nitroglycerin) 0.4 Mg Tab.subl, 0.4 MG SL UD PRN for CHEST PAIN (ANGINA), (Reported) Entered as Reported by: CHAVA HERRERA on 11/24/22 0838 Last Action: Reviewed Oxycodone HCl (Oxycodone HCl) 5 Mg Tablet, 5 MG PO Q4H PRN for PAIN-SEVERE (8- 10), (Reported) Entered as Reported by: KARINA RAPHAEL on 12/10/221009 Last Action: Reviewed Pantoprazole Sodium (Pantoprazole Sodium) 40 Mg Tablet., 40 MG PO DAILY, (Reported) Entered as Reported by: KARINA RAPHAEL on 12/10/221009 Last Action: Continued Ranolazine (Ranolazine ER) 500 Mg Tab.er.12h, 500 MG PO BID, (Reported) Entered as Reported by: KARINA RAPHAEL on 12/10/221009 Last Action: Continued Discontinued Medications Aspirin (Aspirin EC) 81 Mg Tablet., 81 MG PO DAILY Discontinued Reason: Duplicate Order Prescribed by: ZOHREH BHANDARI on 11/25/221008 Last Action: Discontinued Bethanechol Chloride (Urecholine) 10 Mg Tablet, 10 MG PO ACHS Discontinued Reason: Duplicate Order Prescribed by: ZOHREH BHANDARI on 11/25/221008 Last Action: Discontinued Levofloxacin (Levofloxacin) 750 Mg Tablet, 750 MG PO DAILY@1100 Discontinued Reason: Duplicate Order Prescribed by: ZOHREH BHANDARI on 11/25/221008 Last Action: Discontinued Metoprolol Succinate (Metoprolol Succinate) 25 Mg Tab.er.24h, 25 MG PO DAILY Discontinued Reason: Duplicate Order Prescribed by: ZOHREH BHANDARI on 11/25/221008 Last Action: Discontinued Montelukast Sodium (Montelukast Sodium) 10 Mg Tablet, 10 MG PO HS Discontinued Reason: Duplicate Order Prescribed by: ZOHREH BHANDARI on 11/25/221008 Last Action: Discontinued Multivitamin (Multi-Vitamin Daily) 1 Each Tablet, 1 EACH PO DAILY, (Reported) Discontinued Reason: Duplicate Order Entered as Reported by: CHAVA HERRERA on 11/24/22 0839 Last Action: Discontinued Oxycodone Hcl (Oxyir Tablet) 5 Mg Tab, 5 MG PO Q4H PRN for PAIN-MODERATE (5-7) Discontinued Reason: Duplicate Order Prescribed by: ZOHREH BHANDARI on 11/25/22 101 Last Action: Discontinued Pantoprazole Sodium (Pantoprazole Sodium) 40 Mg Tablet.dr, 40 MG PO DAILY@0700 Discontinued Reason: Duplicate Order Prescribed by: ZOHREH BHANDARI on 11/25/221008 Last Action: Discontinued Phenazopyridine HCl (Phenazopyridine HCl) 100 Mg Tablet, 100 MG PO TIDPC Discontinued Reason: Duplicate Order Prescribed by: ZOHREH BHANDARI on 11/25/221008 Last Action: Discontinued Prednisone (Prednisone) 10 Mg Tab.ds.pk, 10 MG PO DAILY Discontinued Reason: Duplicate Order Prescribed by: ZOHREH BHANDARI on 11/25/221008 Last Action: Discontinued Ranolazine (Ranexa) 500 Mg Tab.er.12h, 500 MG PO BID Discontinued Reason: Duplicate Order Prescribed by: ZOHREH BHANDARI on 11/25/221008 Last Action: Discontinued Past Rjgbyjo-Vfghkj-Czwmnn Hx Patient Social History Marrital Status: single Living Status: Lives at home with home health that comes in periodically Employed/Student: unemployed Tobacco Use?: No Tobacco type used: Cigarettes Smoking Status: Former Smoker Use of E-Cig and/or Vaping dev: No Substance use?: No Alcohol Use?: Yes Alcohol type: Hard Liquor Alcohol Frequency: Once in a while Immunizations Up To Date Date of Influenza Vaccine: Aug 04, 2022 First/Initial COVID19 Vaccinat: x2 Tetanus Booster (TDap): More Than 5 Years Hepatitis A: No Hepatitis B: No PED Vaccines UTD: No Date of Pneumonia Vaccine: Jul 03, 2018 Seasonal Allergies Seasonal Allergies: No Current Status Advance Directives: Yes Advance Directive Location: Copy from prev record Communicates: Verbally Primary Language: Uzbek Preferred Spoken Language: Uzbek Is interpretation needed?: No Implanted or Applied Medical D: Pacemaker Past Medical History Surgeries: Abdominal, Appendectomy, Cardiac, Defibrillator, Joint Replacement (hip replacement), Orthopedic, Pacemaker Asthma, COPD Currently Using CPAP: No Currently Using BIPAP: No Atrial Fibrillation, Chronic Edema/Swelling, Coronary Artery Disease, Congenital Heart Disease, Heart Attack, Hypertension, Irregular Heartbeat Neuropathy Sexually Transmitted Disease: No HIV/AIDS: No Neurogenic Bladder Abdominal Hernia, Chronic Constipation Arthritis, Chronic Back Pain, Fractures Diabetes, Insulin dep Dysphagia Loss of Vision: Denies Hearing Impairment: Hard of Hearing Suicide Attempts, Depression Recent Skin Changes Blood Disorders: No Adverse Reaction/Blood Tranf: Yes (HIGH FEVER AND CHILLS) PMHx: avascular necrosis of multiple joints Asthma Chronic nonhealing hip wounds SurgHx: 11 bilateral hip surgeries, removal of hardware is nonambulatory 3 back surgeries Neck surgery Bilateral carpal tunnel release Bilateral cubital tunnel release Family Medical History COPD Diabetes mellitus No Pertinent Family Hx Adopted, unknown FH SOCIAL HISTORY: -SMOKED IN THE PAST, QUIT -ETOH--LONG HISTORY OF ABUSE -DRUGS--EXTENSIVE ABUSE OF RX DRUGS, ESPECIALLY OPIATES PAST SURGICAL HISTORY: -MULTIPLE FAILED BILATERAL HIP REPLACEMENTS, WITH EVENTUAL REMOVAL OF BOTH FEMORAL HEADS -CARDIAC CATH 08/26/[address] LOPEZ: CORONARY ANGIOGRAPHY: Coronary calcification is seen. Left main coronary artery is free of significant disease. Left anterior descending artery does not exhibit significant disease. Left circumflex artery has 30% to 40% mid vessel stenosis at the site of the origin of a large obtuse marginal branch. IFR across this lesion is 0.96. This indicates that the lesion is hemodynamically nonsignificant. Right coronary artery is codominant with the left circumflex artery. It does not exhibit significant disease. LEFT VENTRICULAR ANGIOGRAPHY: Left ventricular angiography was carried out in the right anterior oblique projection. Global left ventricular systolic function is normal. No regional wall motion abnormalities seen. Left ventricular ejection fraction is approximately 60%. CONCLUSIONS: 1. Mild to moderate coronary artery disease, nonobstructive. 2. Normal global left ventricular systolic function with ejection fraction approximately 60%. 3. Normal left ventricular end-diastolic pressure. DISCUSSION AND RECOMMENDATIONS: Based on results of the study, it appears appropriate to continue a conservative approach. Review of Systems Constitutional: No chills, No dizziness, No fever; weakness EENTM: No blurred vision, No nose congestion, No throat pain Respiratory: cough, dyspnea on exertion; No hemoptysis, No phlegm; short of breath, wheezing Cardiovascular: No chest pain; Hx of Intervention; No palpitations Gastrointestinal: No abdominal pain, No diarrhea, No loss of appetite, No nause a, No vomiting Genitourinary: other (catheter in place) Musculoskeletal: other (chronic hip pain) Skin: no symptoms reported Psychiatric/Neurological: Depressed; Denies Headache; Weakness Physical Exam Vital Signs Vital Signs - First Documented 12/09/22 16:21 Temp 36.2 Pulse 87 Resp 26 B/P (MAP) 122/66 (84) Pulse Ox 94 O2 Delivery Nasal Cannula O2 Flow Rate 6.00 FiO2 94 Capillary Refill : Less Than 3 Seconds Height, Weight, BMI Height: 5'8.00" Weight: 170lbs. 8.0oz. 77.997126nz; 28.96 BMI Method:Stated General Appearance: WD/WN, Mild Distress Eyes: Bilateral Eye Normal Inspection HEENT: Moist Mucous Membranes Neck: Full Range of Motion Respiratory: Expiration (wheezing throughout lungs), Inspiration (wheezing throughout lungs), Wheezing (can be audibly heard across the room) Cardiovascular: Regular Rate, Rhythm, No Murmur Gastrointestinal: Non Tender, Soft Extremity: No Calf Tenderness, No Pedal Edema Neurologic/Psychiatric: Alert, Oriented x3, Normal Mood/Affect Skin: Normal Color, Warm/Dry Assessment/Plan Assessment and Plan COPD exacerbation - prednisolone 40mg 1xD for 5 days started. - albuterol/ipratropium inhaler ordered - patient using incentive spirometer UTI with Sepsis - culture pending - on day 2 of IV cefepime - WBC has trended from 13 to 8.5 GELACIO - creatine improved today but still elevated - continue giving IV lactated ringers CHF - metoprolol 25mg 1xD restarted from home med list Diabetes mellitus type 2 - AccuCheck ordered - placed on diabetic diet CAD and angina - aspirin 81mg 1xD restarted from home med list - Ranexa 500mg BID restarted from home med list Hypertension - metoprolol was restarted Neurogenic Bladder - Bethanechol 10mg 1xD restarted from home med list GERD - Pantoprazole 40mg 1xD restarted from home med list Allergies - montelukaust 10mg 1xD restarted from home med list Catheter - will be removed today - mobility will be worked on so patient can transfer from bed to commode Mobility - PT/OT will be ordered to help patient maintain strength so he will be able to transfer himself from bed to wheelchair Admission Diagnosis Admission Status: Inpatient Order (span 2 midnights) Reason for Inpatient Admission: Patient still not back to baseline O2 nasal cannula and is continuing to have shortness of breath BRYANNA VALENTIN MD 12/10/22 1802: Allergies and Home Medications Allergies Coded Allergies: codeine (Verified Allergy, Mild, HIVES...TAKES OXYCODONE & MS CONTIN AT HOME, 03/11/19) streptokinase (Verified Allergy, Unknown, 03/11/19) Patient Home Medication List Home Medication List Reviewed: Yes Albuterol Sulfate (Ventolin Hfa) 1 Puff Puff, 2 PUFF INH Q6H PRN for SHORTNESS OF BREATH, (Reported) Entered as Reported by: KARINA RAPHAEL on 08/06/20 1606 Last Action: Reviewed Aspirin (Aspirin EC) 81 Mg Tablet.dr, 81 MG PO DAILY, (Reported) Entered as Reported by: KARINA RAPHAEL on 12/10/22 1010 Last Action: Continued Bethanechol Chloride (Urecholine) 10 Mg Tablet, 20 MG PO BID, (Reported) Entered as Reported by: KARINA RAPHAEL on 12/10/22 1010 Last Action: Continued Gabapentin (Neurontin) 300 Mg Capsule, 300 MG PO TID, (Reported) Entered as Reported by: KARINA RAPHAEL on 08/01/22 1517 Last Action: Reviewed Metoprolol Succinate (Metoprolol Succinate) 25 Mg Tab.er.24h, 25 MG PO DAILY, (Reported) Entered as Reported by: KARINA RAPHAEL on 12/10/221009 Last Action: Continued Montelukast Sodium (Montelukast Sodium) 10 Mg Tablet, 10 MG PO DAILY, (Reported) Entered as Reported by: KARINA RAPHAEL on 12/10/22 101 Last Action: Continued Nitroglycerin (Nitroglycerin) 0.4 Mg Tab.subl, 0.4 MG SL UD PRN for CHEST PAIN (ANGINA), (Reported) Entered as Reported by: CHAVA HERRERA on 11/24/22 0838 Last Action: Reviewed Oxycodone HCl (Oxycodone HCl) 5 Mg Tablet, 5 MG PO Q4H PRN for PAIN-SEVERE (8- 10), (Reported) Entered as Reported by: KARINA RAPHAEL on 12/10/221009 Last Action: Reviewed Pantoprazole Sodium (Pantoprazole Sodium) 40 Mg Tablet.dr, 40 MG PO DAILY, (Reported) Entered as Reported by: KARINA RAPHAEL on 12/10/221009 Last Action: Continued Ranolazine (Ranolazine ER) 500 Mg Tab.er.12h, 500 MG PO BID, (Reported) Entered as Reported by: KARINA RAPHAEL on 12/10/221009 Last Action: Continued Discontinued Medications Aspirin (Aspirin EC) 81 Mg Tablet.dr, 81 MG PO DAILY Discontinued Reason: Duplicate Order Prescribed by: ZOHREH BHANDARI on 11/25/221008 Last Action: Discontinued Bethanechol Chloride (Urecholine) 10 Mg Tablet, 10 MG PO ACHS Discontinued Reason: Duplicate Order Prescribed by: ZOHREH BHANDARI on 11/25/221008 Last Action: Discontinued Levofloxacin (Levofloxacin) 750 Mg Tablet, 750 MG PO DAILY@1100 Discontinued Reason: Duplicate Order Prescribed by: ZOHREH BHANDARI on 11/25/221008 Last Action: Discontinued Metoprolol Succinate (Metoprolol Succinate) 25 Mg Tab.er.24h, 25 MG PO DAILY Discontinued Reason: Duplicate Order Prescribed by: ZOHREH BHANDARI on 11/25/221008 Last Action: Discontinued Montelukast Sodium (Montelukast Sodium) 10 Mg Tablet, 10 MG PO HS Discontinued Reason: Duplicate Order Prescribed by: ZOHREH BHANDARI on 11/25/221008 Last Action: Discontinued Multivitamin (Multi-Vitamin Daily) 1 Each Tablet, 1 EACH PO DAILY, (Reported) Discontinued Reason: Duplicate Order Entered as Reported by: CHAVA HERRERA on 11/24/22 0839 Last Action: Discontinued Oxycodone Hcl (Oxyir Tablet) 5 Mg Tab, 5 MG PO Q4H PRN for PAIN-MODERATE (5-7) Discontinued Reason: Duplicate Order Prescribed by: ZOHREH BHANDARI on 11/25/22 1010 Last Action: Discontinued Pantoprazole Sodium (Pantoprazole Sodium) 40 Mg Tablet.dr, 40 MG PO DAILY@0700 Discontinued Reason: Duplicate Order Prescribed by: ZOHREH BHANDARI on 11/25/221008 Last Action: Discontinued Phenazopyridine HCl (Phenazopyridine HCl) 100 Mg Tablet, 100 MG PO TIDPC Discontinued Reason: Duplicate Order Prescribed by: ZOHREH BHANDARI on 11/25/221008 Last Action: Discontinued Prednisone (Prednisone) 10 Mg Tab.ds.pk, 10 MG PO DAILY Discontinued Reason: Duplicate Order Prescribed by: ZOHREH BHANDARI on 11/25/221008 Last Action: Discontinued Ranolazine (Ranexa) 500 Mg Tab.er.12h, 500 MG PO BID Discontinued Reason: Duplicate Order Prescribed by: ZOHREH BHANDARI on 11/25/221008 Last Action: Discontinued Past Zvnkkso-Uuqhou-Ctckpd Hx Family Medical History COPD Diabetes mellitus Review of Systems Constitutional: No chills, No dizziness, No fever; weakness EENTM: no symptoms reported Respiratory: cough, dyspnea on exertion, short of breath Cardiovascular: no symptoms reported; No chest pain, No palpitations Gastrointestinal: no symptoms reported; No abdominal pain, No constipation, No diarrhea, No nausea, No vomiting Genitourinary: no symptoms reported Musculoskeletal: other (chronic hip pain) Skin: no symptoms reported Psychiatric/Neurological: Anxiety, Depressed Physical Exam General Appearance: No Apparent Distress, WD/WN HEENT: PERRL/EOMI Neck: Full Range of Motion, Supple Respiratory: No Accessory Muscle Use; Expiration (wheezing throughout lungs), Inspiration (wheezing throughout lungs), Wheezing (can be audibly heard across the room) Cardiovascular: Regular Rate, Rhythm, No Edema, No Murmur Gastrointestinal: Normal Bowel Sounds, Non Tender, Soft Back: No CVA Tenderness, No Vertebral Tenderness Extremity: Non Tender, No Calf Tenderness, No Pedal Edema Neurologic/Psychiatric: Alert, Oriented x3, Normal Mood/Affect Skin: Normal Color, Warm/Dry Lymphatic: No Adenopathy Assessment/Plan Admission Diagnosis Admission Status: Inpatient Order (span 2 midnights) Reason for Inpatient Admission: High risk for decompensation Supervisory-Addendum Brief Verification & Attestation Participated in pt care: history, physical Personally performed: exam, history Care discussed with: Medical Student Procedures: n/a Verification and Attestation of Medical Student E/M Service A medical student performed and documented this service in my presence. I reviewed and verified all information documented by the medical student and made modifications to such information, when appropriate. I personally performed the physical exam and medical decision making. Bryanna Valentin, Dec 10, 2022,17:57 Acute on Chronic respiratory failure with hypoxia AECOPD NSTEMI UTI Acute on chronic renal failure NIDDM HTN CAD CK GUTIERREZ Dec 10, 2022 15:08 BRYANNA VALENTIN MD Dec 10, 2022 18:02
[2022-12-10 16:09] VITALS: BP 110/53
[2022-12-10] MEDS: BETHANECHOL 10 MG (URECHOLINE) TAB PO SCH (20:11)
[2022-12-10] MEDS: RANOLAZINE ER 500 MG TAB (RANEXA) PO SCH (20:11)
[2022-12-10 20:21] VITALS: BP 117/56
[2022-12-10] MEDS ORDERED: VANCOMYCIN 1500 MG/NS 500 ML IVPB IV SCH ×2 (22:30)
[2022-12-11] VITALS (7 sets, daily range): BP systolic 120–177; BP diastolic 63–88
[2022-12-11] MEDS: LACTATED RINGERS 1,000 ML IV SCH ×3 (01:37→17:30)
[2022-12-11] MEDS: CEFEPIME 1,000 MG/NS 50 ML IVPB IV SCH ×8 (02:36→21:14)
[2022-12-11] MEDS: RT-ALBUTEROL SULF 2.5 MG/3 ML PRE-MIX VIAL INH SCH ×6 (03:08→21:00)
[2022-12-11 06:28] LABS: BASOPHILS % (AUTO) 0 % (0-10); EOSINOPHILS % (AUTO) 0 % (0-10); HEMATOCRIT 35 % (40-54); HEMOGLOBIN 11.4 g/dL (13.3-17.7); LYMPHOCYTES # (AUTO) 0.4 10^3/uL (1.0-4.0); LYMPHOCYTES % (AUTO) 3 % (12-44); MEAN CORPUSCULAR HEMOGLOBIN 31 pg (25-34); MEAN CORPUSCULAR HGB CONC 33 g/dL (32-36); MEAN CORPUSCULAR VOLUME 94 fL (80-99); MEAN PLATELET VOLUME 10.4 fL (9.0-12.2); MONOCYTES # (AUTO) 0.5 10^3/uL (0.0-1.0); MONOCYTES % (AUTO) 3 % (0-12); NEUTROPHILS # (AUTO) 15.3 10^3/uL (1.8-7.8); NEUTROPHILS % (AUTO) 94 % (42-75); PLATELET COUNT 287 10^3/uL (130-400); WHITE BLOOD COUNT 16.3 10^3/uL (4.3-11.0)
[2022-12-11 06:51] LABS: BILIRUBIN,TOTAL 0.6 MG/DL (0.1-1.0); CALCIUM 8.6 MG/DL (8.5-10.1); CREATININE SERUM 1.29 MG/DL (0.60-1.30); POTASSIUM 4.4 MMOL/L (3.6-5.0); TOTAL PROTEIN 5.7 GM/DL (6.4-8.2)
[2022-12-11 07:14] LABS: LYMPHOCYTES % (MANUAL) 5 %; MONOCYTES % (MANUAL) 3 %; NEUTROPHILS % (MANUAL) 92 %; PLATELET ESTIMATE ADEQUATE; RBC MORPH NORMAL
[2022-12-11 07:15] LABS: TOXIC GRANULATION/VACUOLAZATIO 1+
--- NOTE | 2022-12-11 08:53 | Diagnostic Imaging Report ---
INDICATION: Pneumonia, COPD. Frontal chest obtained at 5:19 a.m. and compared to yesterday. There is cardiomegaly. There is central vascular congestion. There is improved aeration of the right base compared to the prior study. There is some mild residual infiltrate or atelectasis in left base. Is no pneumothorax or gross pleural fluid. IMPRESSION: Cardiomegaly with central vascular congestion. Improved aeration right lung base compared to the prior study. There is some residual atelectatic change versus infiltrate in the left base. Dictated by: Dictated on workstation # [id number]
[2022-12-11] MEDS: BETHANECHOL 10 MG (URECHOLINE) TAB PO SCH ×2 (08:56→21:14)
[2022-12-11] MEDS: MONTELUKAST 10 MG (SINGULAIR) TAB PO SCH (08:56)
[2022-12-11] MEDS: RANOLAZINE ER 500 MG TAB (RANEXA) PO SCH ×2 (08:56→21:14)
[2022-12-11] MEDS: ASPIRIN E.C. 81 MG (ECOTRIN) TAB PO SCH (08:56)
[2022-12-11] MEDS: PANTOPRAZOLE 40 MG (PROTONIX) TAB PO SCH (08:56)
--- NOTE | 2022-12-11 12:31 | Progress Note ---
Subjective Date Seen by a Provider: Dec 11, 2022 Time Seen by a Provider: 10:00 Subjective/Events-last exam Patient was laying in bed awake at the start of the interview. Patient reports he is feeling much better today and is not feeling short of breath. Patient is back down to his baseline of 3L O2 NC. Is no longer audibly wheezing. Has been able to urinate several times in the plastic urinal without his catheter. Patient has not tried to transfer himself from the bed to bedside commode. Patient denies having headaches, nausea, vomiting, diarrhea, abdominal pain, and dysuria. Review of Systems General: No Chills, No Fatigue; Appetite HEENT: No Head Aches, No Sinus Congestion, No Sore Throat Pulmonary: No Cough Cardiovascular: No: Chest Pain, Palpitations, Edema Gastrointestinal: No: Nausea, Vomiting, Abdominal Pain, Diarrhea, Constipation Genitourinary: No Dysuria Musculoskeletal: leg pain (chronic bilateral leg pain) Neurological: No: Weakness Focused Exam Lactate Level 12/09/22 20:15: Lactic Acid Level 3.45*H 12/09/22 23:47: Lactic Acid Level 2.42*H 12/10/22 05:15: Lactic Acid Level 1.80 Objective Exam Last Set of Vital Signs Vital Signs Date Time Temp Pulse Resp B/P (MAP) Pulse Ox O2 Delivery O2 Flow Rate FiO2 12/11/22 11:38 36.2 73 19 139/65 (89) 95 Nasal Cannula 3.00 12/11/22 08:00 94 Capillary Refill : Less Than 3 Seconds I&O Intake and Output 12/11/22 00:00 Intake Total 3120 ml Output Total 1050 ml Balance 2070 ml Intake Oral 1820 ml IV Total 1300 ml Output Urine Total 1050 ml # Bowel Movements 1 General: Alert, Oriented X3, Cooperative, No Acute Distress HEENT: Mucous Memb Moist/[place] Neck: Supple Lungs: Clear to Auscultation, Normal Air Movement Heart: Regular Rate, No Murmurs Abdomen: Normal Bowel Sounds Extremities: No Clubbing, No Cyanosis, No Edema Skin: No Significant Lesion Neuro: Normal Speech, Normal Tone Psych/Mental Status: Mental Status NL, Mood NL Results Lab Laboratory Tests 12/11/22 05:16: White Blood Count 16.3H, Red Blood Count 3.70L, Hemoglobin 11.4L, Hematocrit 35L , Mean Corpuscular Volume 94, Mean Corpuscular Hemoglobin 31, Mean Corpuscular Hemoglobin Concent 33, Red Cell Distribution Width 14.8H, Platelet Count 287, Mean Platelet Volume 10.4, Immature Granulocyte % (Auto) 1, Neutrophils (%) (Auto) 94H, Lymphocytes (%) (Auto) 3L, Monocytes (%) (Auto) 3, Eosinophils (%) (Auto) 0, Basophils (%) (Auto) 0, Neutrophils # (Auto) 15.3H, Lymphocytes # (Auto) 0.4L, Monocytes # (Auto) 0.5, Eosinophils # (Auto) 0.0, Basophils # (Auto) 0.0, Immature Granulocyte # (Auto) 0.1, Neutrophils % (Manual) 92, Lymphocytes % (Manual) 5, Monocytes % (Manual) 3, Toxic Granulation 1+, Platelet Estimate ADEQUATE, Blood Morphology Comment NORMAL, Sodium Level 137, Potassium Level 4.4, Chloride Level 100, Carbon Dioxide Level 25, Anion Gap 12, Blood Urea Nitrogen 39H, Creatinine 1.29, Estimat Glomerular Filtration Rate 60, BUN/Creatinine Ratio 30, Glucose Level 172H, Calcium Level 8.6, Corrected Calcium 9.4, Total Bilirubin 0.6, Aspartate Amino Transf (AST/SGOT) 19, Alanine Aminotransferase (ALT/SGPT) 10, Alkaline Phosphatase 89, Total Protein 5.7L, Albumin 3.0L Microbiology 12/09/22 Urine Culture - Final, Complete NO GROWTH 12/09/22 Blood Culture - Preliminary, Resulted No growth Assessment/Plan Assessment/Plan Assess & Plan/Chief Complaint COPD exacerbation - tolerating baseline 3L NC O2 - patient receiving methylprednisolone - albuterol/ipratropium inhaler ordered - patient using incentive spirometer - repeat chest X-ray showed that the right infiltrate is still present but somewhat improved UTI with Sepsis - culture pending - on day 3 of IV cefepime Leukocytosis - WBC count came back up today most likely due to steroid treatment GELACIO - creatine within normal limits today - ledezma is to stop IV fluids today CHF - metoprolol 25mg 1xD restarted from home med list Diabetes mellitus type 2 - AccuCheck ordered - placed on diabetic diet CAD and angina - aspirin 81mg 1xD restarted from home med list - Ranexa 500mg BID restarted from home med list Hypertension - metoprolol was restarted Neurogenic Bladder - Bethanechol 10mg 1xD restarted from home med list GERD - Pantoprazole 40mg 1xD restarted from home med list Allergies - montelukaust 10mg 1xD restarted from home med list Mobility - PT/OT will be ordered to help patient maintain strength so he will be able to transfer himself from bed to wheelchair Clinical Quality Measures Admission Status Admission Dx COPD exacerbation - prednisolone 40mg 1xD for 5 days started. - albuterol/ipratropium inhaler ordered - patient using incentive spirometer UTI with Sepsis - culture pending - on day 2 of IV cefepime - WBC has trended from 13 to 8.5 GELACIO - creatine improved today but still elevated - continue giving IV lactated ringers CHF - metoprolol 25mg 1xD restarted from home med list Diabetes mellitus type 2 - AccuCheck ordered - placed on diabetic diet CAD and angina - aspirin 81mg 1xD restarted from home med list - Ranexa 500mg BID restarted from home med list Hypertension - metoprolol was restarted Neurogenic Bladder - Bethanechol 10mg 1xD restarted from home med list GERD - Pantoprazole 40mg 1xD restarted from home med list Allergies - montelukaust 10mg 1xD restarted from home med list Catheter - will be removed today - mobility will be worked on so patient can transfer from bed to commode Mobility - PT/OT will be ordered to help patient maintain strength so he will be able to transfer himself from bed to wheelchair CK GUTIERREZ Dec 11, 2022 12:31
[2022-12-11] MEDS ORDERED: TROUGH ORDER-PHARMACY XX NR (21:30)
[2022-12-12] MEDS: CEFEPIME 1,000 MG/NS 50 ML IVPB IV SCH ×4 (02:22→09:28)
[2022-12-12] MEDS: RT-ALBUTEROL SULF 2.5 MG/3 ML PRE-MIX VIAL INH SCH ×3 (02:42→10:50)
[2022-12-12 03:55] VITALS: BP 181/85
[2022-12-12 04:47] VITALS: BP 165/78
[2022-12-12] MEDS: LACTATED RINGERS 1,000 ML IV SCH (05:18)
[2022-12-12 06:22] LABS: BASOPHILS % (AUTO) 0 % (0-10); EOSINOPHILS % (AUTO) 0 % (0-10); HEMATOCRIT 37 % (40-54); HEMOGLOBIN 12.4 g/dL (13.3-17.7); LYMPHOCYTES # (AUTO) 0.7 10^3/uL (1.0-4.0); LYMPHOCYTES % (AUTO) 4 % (12-44); MEAN CORPUSCULAR HEMOGLOBIN 32 pg (25-34); MEAN CORPUSCULAR HGB CONC 34 g/dL (32-36); MEAN CORPUSCULAR VOLUME 94 fL (80-99); MEAN PLATELET VOLUME 10.2 fL (9.0-12.2); MONOCYTES # (AUTO) 0.8 10^3/uL (0.0-1.0); MONOCYTES % (AUTO) 5 % (0-12); NEUTROPHILS # (AUTO) 15.3 10^3/uL (1.8-7.8); NEUTROPHILS % (AUTO) 90 % (42-75); PLATELET COUNT 280 10^3/uL (130-400); WHITE BLOOD COUNT 16.9 10^3/uL (4.3-11.0)
[2022-12-12 06:44] LABS: ALBUMIN 3.2 GM/DL (3.2-4.5); BILIRUBIN,TOTAL 0.9 MG/DL (0.1-1.0); CREATININE SERUM 1.18 MG/DL (0.60-1.30); POTASSIUM 4.4 MMOL/L (3.6-5.0); TOTAL PROTEIN 6.1 GM/DL (6.4-8.2)
[2022-12-12 08:14] VITALS: BP 192/96
--- NOTE | 2022-12-12 08:49 | Diagnostic Imaging Report ---
INDICATION: COPD, respiratory distress Frontal chest obtained at 0317 a.m. compared with yesterday. There is cardiomegaly with unchanged pacemaker device. There is prominence of the central pulmonary arteries suggesting pulmonary arterial hypertension. There are some perihilar infiltrates which appear stable. There is no pneumothorax or significant pleural fluid. IMPRESSION: Cardiomegaly with central vascular congestion and increased size of the central pulmonary arteries suggesting pulmonary arterial hypertension. There are bilateral perihilar infiltrates. There is no pneumothorax or pleural fluid. Dictated by: Dictated on workstation # [id number]
--- NOTE | 2022-12-12 09:10 | Discharge Summary ---
Discharge Summary Hospital Course Was the Problem List Reviewed?: Yes Hospital Course Date of Admission: Dec 09, 2022 at 20:40 Admission Diagnosis : Family Physician/Provider: Uriel Cardona MD Date of Discharge: 12/12/22 Discharge Diagnosis: [ ] Hospital Course: Patient is a 72yo M with PMH of COPD, on 3-6L O2 NC at baseline, CHF w/defibillator/pacemaker, CAD, and atrial fibrillation. Two weeks ago the patient was discharged from [facility] after having an NSTEMI and pneumonia. Patient felt good the first few days after discharge but then began feeling short of breath. Patient has been feeling short of breath for the past week and a half now and has developed a dry cough. He called EMS to bring him to the ER. In the ER patient's RR was 26 and patient was put on 6L O2 NC with oxygen saturation in the 90s. The patient had elevated WBC, creatinine, and lactic acid. UA was positive for nitrite. Patient was admitted for COPD exacerbation and sepsis. The patient wasToday the patient was laying in bed awake at the start of the interview. He says he is feeling less short of breath today and his cough has improved. Patient was audibly wheezing throughout the interview. Patient was on 4.5L O2 NC. Patient has a catheter in place but says he doesn't use one at home. Patient denies fevers, chest pain, palpitations, nausea, vomiting, and diarrhea. At home the patient gets around on an electric wheelchair Labs and Pending Lab Test: Laboratory Tests 12/12/22 06:13: White Blood Count 16.9H, Red Blood Count 3.89L, Hemoglobin 12.4L, Hematocrit 37L , Mean Corpuscular Volume 94, Mean Corpuscular Hemoglobin 32, Mean Corpuscular Hemoglobin Concent 34, Red Cell Distribution Width 15.0H, Platelet Count 280, Mean Platelet Volume 10.2, Immature Granulocyte % (Auto) 0, Neutrophils (%) (Auto) 90H, Lymphocytes (%) (Auto) 4L, Monocytes (%) (Auto) 5, Eosinophils (%) (Auto) 0, Basophils (%) (Auto) 0, Neutrophils # (Auto) 15.3H, Lymphocytes # (Auto) 0.7L, Monocytes # (Auto) 0.8, Eosinophils # (Auto) 0.0, Basophils # (Auto) 0.0, Immature Granulocyte # (Auto) 0.1, Sodium Level 135, Potassium Level 4.4, Chloride Level 101, Carbon Dioxide Level 23, Anion Gap 11, Blood Urea Nitrogen 39H, Creatinine 1.18, Estimat Glomerular Filtration Rate 66, BUN/Creatinine Ratio 33, Glucose Level 102, Calcium Level 9.0, Corrected Calcium 9.6, Total Bilirubin 0.9, Aspartate Amino Transf (AST/SGOT) 22, Alanine Aminotransferase (ALT/SGPT) 14, Alkaline Phosphatase 83, Total Protein 6.1L, Albumin 3.2 Microbiology 12/09/22 Urine Culture - Final, Complete NO GROWTH 12/09/22 Blood Culture - Preliminary, Resulted No growth Home Meds Active Reported Oxycodone HCl 5 Mg Tablet 5 Mg PO Q4H PRN Aspirin EC (Aspirin) 81 Mg Tablet.dr 81 Mg PO DAILY Urecholine (Bethanechol Chloride) 10 Mg Tablet 20 Mg PO BID TAKES 2 (10NG) TABS Ranolazine ER (Ranolazine) 500 Mg Tab.er.12h 500 Mg PO BID Metoprolol Succinate 25 Mg Tab.er.24h 25 Mg PO DAILY Montelukast Sodium 10 Mg Tablet 10 Mg PO DAILY Pantoprazole Sodium 40 Mg Tablet.dr 40 Mg PO DAILY Nitroglycerin 0.4 Mg Tab.subl 0.4 Mg SL UD PRN Neurontin (Gabapentin) 300 Mg Capsule 300 Mg PO TID Ventolin Hfa (Albuterol Sulfate) 1 Puff Puff 2 Puff INH Q6H PRN Discharge Planning: >30 minutes discharge planning Discharge Physical Examination Vital Signs Vital Signs Date Time Temp Pulse Resp B/P (MAP) Pulse Ox O2 Delivery O2 Flow Rate FiO2 12/12/22 08:14 36.8 91 18 192/96 (128) 93 Nasal Cannula 2.00 12/11/22 08:00 94 Allergies: Coded Allergies: codeine (Verified Allergy, Mild, HIVES...TAKES OXYCODONE & MS CONTIN AT HOME, 03/11/19) streptokinase (Verified Allergy, Unknown, 03/11/19) Discharge Summary Date of Admission Dec 09, 2022 at 20:40 Date of Discharge MATTGERICK Dec 12, 2022 09:10
[2022-12-12] MEDS: PANTOPRAZOLE 40 MG (PROTONIX) TAB PO SCH (09:28)
[2022-12-12] MEDS: BETHANECHOL 10 MG (URECHOLINE) TAB PO SCH (09:29)
[2022-12-12] MEDS: MONTELUKAST 10 MG (SINGULAIR) TAB PO SCH (09:29)
[2022-12-12] MEDS: ASPIRIN E.C. 81 MG (ECOTRIN) TAB PO SCH (09:29)
[2022-12-12] MEDS: RANOLAZINE ER 500 MG TAB (RANEXA) PO SCH (09:33)
[2022-12-12] MEDS ORDERED: L.AC1CAP6 PO (11:14)
--- NOTE | 2022-12-12 11:18 | Discharge Summary ---
Discharge Summary Reconcile Patient Problems Problems Reviewed?: Yes Instructions for Patient Via [facility], Assessment/Instructions Acute on Chronic Respiratory Failure AECOPD UTI Acute kidney failure NIDDM CAD HTN Debility Physician to follow Patient: Dulce Discharge Diet for Home: ADA Diet Hospital Course Date of Admission: Dec 09, 2022 at 20:40 Admission Diagnosis : Family Physician/Provider: Uriel Cardona MD Date of Discharge: 12/12/22 Discharge Diagnosis: Acute on Chronic Respiratory Failure AECOPD UTI Acute Kidney Failure NIDDM CAD HTN Debility Labs and Pending Lab Test: Laboratory Tests 12/12/22 06:13: White Blood Count 16.9H, Red Blood Count 3.89L, Hemoglobin 12.4L, Hematocrit 37L , Mean Corpuscular Volume 94, Mean Corpuscular Hemoglobin 32, Mean Corpuscular Hemoglobin Concent 34, Red Cell Distribution Width 15.0H, Platelet Count 280, Mean Platelet Volume 10.2, Immature Granulocyte % (Auto) 0, Neutrophils (%) (Auto) 90H, Lymphocytes (%) (Auto) 4L, Monocytes (%) (Auto) 5, Eosinophils (%) (Auto) 0, Basophils (%) (Auto) 0, Neutrophils # (Auto) 15.3H, Lymphocytes # (Auto) 0.7L, Monocytes # (Auto) 0.8, Eosinophils # (Auto) 0.0, Basophils # (Auto) 0.0, Immature Granulocyte # (Auto) 0.1, Sodium Level 135, Potassium Level 4.4, Chloride Level 101, Carbon Dioxide Level 23, Anion Gap 11, Blood Urea Nitrogen 39H, Creatinine 1.18, Estimat Glomerular Filtration Rate 66, BUN/Creatinine Ratio 33, Glucose Level 102, Calcium Level 9.0, Corrected Calcium 9.6, Total Bilirubin 0.9, Aspartate Amino Transf (AST/SGOT) 22, Alanine Aminotransferase (ALT/SGPT) 14, Alkaline Phosphatase 83, Total Protein 6.1L, Albumin 3.2 Microbiology 12/09/22 Urine Culture - Final, Complete NO GROWTH 12/09/22 Blood Culture - Preliminary, Resulted No growth Home Meds Active Reported Oxycodone HCl 5 Mg Tablet 5 Mg PO Q4H PRN Aspirin EC (Aspirin) 81 Mg Tablet.dr 81 Mg PO DAILY Urecholine (Bethanechol Chloride) 10 Mg Tablet 20 Mg PO BID TAKES 2 (10NG) TABS Ranolazine ER (Ranolazine) 500 Mg Tab.er.12h 500 Mg PO BID Metoprolol Succinate 25 Mg Tab.er.24h 25 Mg PO DAILY Montelukast Sodium 10 Mg Tablet 10 Mg PO DAILY Pantoprazole Sodium 40 Mg Tablet.dr 40 Mg PO DAILY Nitroglycerin 0.4 Mg Tab.subl 0.4 Mg SL UD PRN Neurontin (Gabapentin) 300 Mg Capsule 300 Mg PO TID Ventolin Hfa (Albuterol Sulfate) 1 Puff Puff 2 Puff INH Q6H PRN Patient Allergies: Coded Allergies: codeine (Verified Allergy, Mild, HIVES...TAKES OXYCODONE & MS CONTIN AT HOME, 03/11/19) streptokinase (Verified Allergy, Unknown, 03/11/19) Height (Feet): 5 Height (Inches): 8.00 Weight (Pounds): 170 Weight (Ounces): 8.0 New Medications: L.acidoph & Paracasei,B.lactis (Probiotic) 10 Billion Cell Capsule 1 EACH PO BID, #30 CAP Continued Medications: Albuterol Sulfate (Ventolin Hfa) 1 Puff Puff 2 PUFF INH Q6H PRN for SHORTNESS OF BREATH, EACH Aspirin (Aspirin EC) 81 Mg Tablet.dr 81 MG PO DAILY, TAB Bethanechol Chloride (Urecholine) 10 Mg Tablet 20 MG PO BID, TAB TAKES 2 (10NG) TABS Gabapentin (Neurontin) 300 Mg Capsule 300 MG PO TID, CAP Metoprolol Succinate (Metoprolol Succinate) 25 Mg Tab.er.24h 25 MG PO DAILY, TAB Montelukast Sodium (Montelukast Sodium) 10 Mg Tablet 10 MG PO DAILY, TAB Nitroglycerin (Nitroglycerin) 0.4 Mg Tab.subl 0.4 MG SL UD PRN for CHEST PAIN (ANGINA), TAB Oxycodone HCl (Oxycodone HCl) 5 Mg Tablet 5 MG PO Q4H PRN for PAIN-SEVERE (8-10), TAB Pantoprazole Sodium (Pantoprazole Sodium) 40 Mg Tablet.dr 40 MG PO DAILY, TAB Ranolazine (Ranolazine ER) 500 Mg Tab.er.12h 500 MG PO BID, TAB Home Health Need/Face to Face Date of Face to Face: Dec 12, 2022 Clinical Findings: Non or partial weight bearing, Unsteady gait I have seen Pt [id number]: Yes Discharged To: Home Diagnosis/Conditions: See Above Patient is Homebound due to: Collins fall risk due to instabilty, Shortness of breath/distress Homebound Status Due to the above stated illness, injury or surgical procedure (medical condi tion or diagnosis) and associated clinical findings, the patient is homebound because of his/her inability to leave home except with aid of a supportive device and/or person AND leaving the home requires a considerable and taxing effort or is medically contraindicated. Pt req the following assistanc: Wheelchair Home Health Nursing Orders Home Health Services Order: Nursing Services, Physical Therapy-Evaluate & Treat Home Health Infusion Therapy Line Start Date: Dec 09, 2022 Therapy Orders Therapy Orders: Physical Therapy, PT to assess for OT Therapy Specific Orders: Teach enviro modifications/safety, Increase stren gth/endurance Certify Stmt I certify that this patient is under my care and that I, a nurse practitioner or a physician; a registered sales assistant working with me, had a face to face encounter that - meets the physician face to face encounter requirements with this patient as dated. Discharge Physical Exam General: Alert, Oriented X3, No Acute Distress Lungs: Other (End exp wheezing, normal work of breathing at rest) Heart: Regular Rate, No Murmurs Abdomen: Normal Bowel Sounds, Soft, No Tenderness, No Masses Extremities: No Edema, No Tenderness/Swelling Skin: No Rashes Neuro: Normal Speech Psych/Mental Status: Mental Status NL, Mood NL BRYANNA VALENTIN MD Dec 12, 2022 11:18
[2022-12-12 11:58] VITALS: BP 177/82
[2022-12-12 13:24] VITALS: BP 177/82
[2022-12-12 14:40] VITALS: BP 177/82
[2022-12-12] MEDS ORDERED: RT-ALBUTEROL SULF 2.5 MG/3 ML PRE-MIX VIAL INH SCH (15:00)
== END 2022-12-12 14:20 | disposition home health service (06) | DRG 189 ==
LOC: EDUNIT# 16:21 → ER 16:23 → 4TH 20:40
PROVIDERS: ADMIT Family Medicine; ATTEND Family Medicine
DX: J96.21 Acute and chronic respiratory failure with hypoxia (principal); I21.4 Non-ST elevation (NSTEMI) myocardial infarction; J44.1 Chronic obstructive pulmonary disease with (acute) exacerbation; N39.0 Urinary tract infection, site not specified; N17.9 Acute kidney failure, unspecified; I13.0 Hypertensive heart and chronic kidney disease with heart failure and stage 1 through stage 4 chronic kidney disease, or unspecified chronic kidney disease; I25.10 Atherosclerotic heart disease of native coronary artery without angina pectoris; R53.81 Other malaise; I25.119 Atherosclerotic heart disease of native coronary artery with unspecified angina pectoris; N31.9 Neuromuscular dysfunction of bladder, unspecified; K21.9 Gastro-esophageal reflux disease without esophagitis; D72.829 Elevated white blood cell count, unspecified; T38.0X5A Adverse effect of glucocorticoids and synthetic analogues, initial encounter; Z99.81 Dependence on supplemental oxygen; I48.91 Unspecified atrial fibrillation; Z79.82 Long term (current) use of aspirin; Z79.899 Other long term (current) drug therapy; Z87.891 Personal history of nicotine dependence; Z96.643 Presence of artificial hip joint, bilateral; G89.29 Other chronic pain; M54.9 Dorsalgia, unspecified; F32.A Depression, unspecified; N18.9 Chronic kidney disease, unspecified; E11.22 Type 2 diabetes mellitus with diabetic chronic kidney disease
CPT/HCPCS: 36415; 36600; 51702; 71045; 73030; 80053; 81000; 82550; 82553; 82805; 83605; 83735; 83874; 83880; 84484; 85007; 85025; 85027; 85379; 85610; 85652; 85730; 86141; 87040; 87088; 87636; 90662; 93005; 93041; 94640; 94664; 94760

== ENCOUNTER 2022-12-16 20:32 | Observation (INO) | payer MEDICARE, MEDICAID ==
[~2022-12-16] VITALS: Ht 172.7 cm; Wt 91.6 kg
[~2022-12-16 20:32] MED LIST changes: +L.AC1CAP6 PO; +RANO500T6 PO
[2022-12-16] MEDS ORDERED: methylPREDNISolone 125 MG (Solu-MEDROL) VIAL IV STA (20:38)
[2022-12-16] MEDS ORDERED: RT-ALBUTEROL SULF 2.5 MG/3 ML PRE-MIX VIAL INH STA (20:38)
[2022-12-16] MEDS ORDERED: NS IV 1000 ML 1,000 ML IV SCH (20:45)
[2022-12-16] MEDS ORDERED: RT-ALBUTEROL/IPRATROPIUM 3 ML (DUONEB) VIAL INH ONE (20:45)
[2022-12-16] MEDS ORDERED: CEFEPIME INJECTION 1,000 MG in NS (IVPB) 50 ML IV ONE (20:45)
--- NOTE | 2022-12-16 20:48 | ED Dyspnea ---
General Stated Complaint: SOB Source of Information: Patient, EMS, Old Records History of Present Illness Date Seen by Provider: Dec 16, 2022 Time Seen by Provider: 20:33 Initial Comments PT ARRIVES VIA EMS FROM HOME C/O SHORTNESS OF BREATH SINCE THIS AFTERNOOON STATES HIS RIGHT LUNG HURTS--RATES PAIN 8/10 NON-PRODUCTIVE COUGH PT IS UNAWARE IF HE HAS HAD FEVER OR NOT PT LIVES AT HOME ALONE, IS IMMOBILE DUE TO BILATERAL HIPS BEING PERMANENTLY REMOVED DUE TO MULTIPLE FAILED HIP SURGERIES PT WITH LONGSTANDING NON-COMPLIANCE IN ALL ASPECTS OF CARE PT WITH A MULTITUDE OF VISITS PT ADMITTED 11/21-11/25/22 FOR NSTEMI AND COPD ADMITTED 12/09-12/22/22 FOR COPD EXACERBATION AND SEPSIS HE HAS NOT ATTEMPTED TO FOLLOW UP WITH ANYONE SINCE THOSE ADMITS. EMS BEGAN DUONEB TREATMENT, AND THIS CONTINUES ON ARRIVAL O2 SAT WITH NEB TREATMENT IS 100% ON ARRIVAL PT IS O2 DEPENDENT COPD, --NORMALLY USES 3-5L/NC CONTINUOUSLY. PT HAS NOT DONE ANY HOME NEBULIZER TREATMENTS TODAY, OR TAKEN ANYTHING FOR SYMPTOMS PT IS NOT COVID OR FLU VACCINATED PT WITH LONG HISTORY OF SMOKING--STATES HE QUIT; ALSO WITH LONG HISTORY OF ALCOHOLISM AND DRUG ABUSE--DENIES RECENT USE Allergies and Home Medications Allergies Coded Allergies: codeine (Verified Allergy, Mild, HIVES...TAKES OXYCODONE & MS CONTIN AT HOME, 03/11/19) streptokinase (Verified Allergy, Unknown, 03/11/19) Patient Home Medication List Albuterol Sulfate (Ventolin Hfa) 1 Puff Puff, 2 PUFF INH Q6H PRN for SHORTNESS OF BREATH, (Reported) Entered as Reported by: KARINA RAPHAEL on 08/06/20 1606 Aspirin (Aspirin EC) 81 Mg Tablet.dr, 81 MG PO DAILY, (Reported) Entered as Reported by: KARINA RAPHAEL on 12/10/22 1010 Bethanechol Chloride (Urecholine) 10 Mg Tablet, 20 MG PO BID, (Reported) Entered as Reported by: KARINA RAPHAEL on 12/10/22 1010 Gabapentin (Neurontin) 300 Mg Capsule, 300 MG PO TID, (Reported) Entered as Reported by: KARINA RAPHAEL on 08/01/22 1517 L.acidoph & Paracasei,B.lactis (Probiotic) 10 Billion Cell Capsule, 1 EACH PO BID Prescribed by: BRYANNA VALENTIN on 12/12/22 1114 Metoprolol Succinate (Metoprolol Succinate) 25 Mg Tab.er.24h, 25 MG PO DAILY, (Reported) Entered as Reported by: KARINA RAPHAEL on 12/10/22 1010 Montelukast Sodium (Montelukast Sodium) 10 Mg Tablet, 10 MG PO DAILY, (Reported) Entered as Reported by: KARINA RAPHAEL on 12/10/22 1010 Nitroglycerin (Nitroglycerin) 0.4 Mg Tab.subl, 0.4 MG SL UD PRN for CHEST PAIN (ANGINA), (Reported) Entered as Reported by: CHAVA HERRERA on 11/24/22 0838 Oxycodone HCl (Oxycodone HCl) 5 Mg Tablet, 5 MG PO Q4H PRN for PAIN-SEVERE (8- 10), (Reported) Entered as Reported by: KARINA RAPHAEL on 12/10/22 1010 Pantoprazole Sodium (Pantoprazole Sodium) 40 Mg Tablet.dr, 40 MG PO DAILY, (Reported) Entered as Reported by: KARINA RAPHAEL on 12/10/22 1010 Ranolazine (Ranolazine ER) 500 Mg Tab.er.12h, 500 MG PO BID, (Reported) Entered as Reported by: KARINA RAPHAEL on 12/10/22 1010 Discontinued Medications Aspirin (Aspirin EC) 81 Mg Tablet.dr, 81 MG PO DAILY Discontinued Reason: Duplicate Order Prescribed by: ZOHREH BHANDARI on 11/25/22 1009 Bethanechol Chloride (Urecholine) 10 Mg Tablet, 10 MG PO ACHS Discontinued Reason: Duplicate Order Prescribed by: ZOHREH BHANDARI on 11/25/22 1009 Levofloxacin (Levofloxacin) 750 Mg Tablet, 750 MG PO DAILY@1100 Discontinued Reason: Duplicate Order Prescribed by: ZOHREH BHANDARI on 11/25/22 1009 Metoprolol Succinate (Metoprolol Succinate) 25 Mg Tab.er.24h, 25 MG PO DAILY Discontinued Reason: Duplicate Order Prescribed by: ZOHREH BHANDARI on 11/25/22 1009 Montelukast Sodium (Montelukast Sodium) 10 Mg Tablet, 10 MG PO HS Discontinued Reason: Duplicate Order Prescribed by: ZOHREH BHANDARI on 11/25/22 1009 Multivitamin (Multi-Vitamin Daily) 1 Each Tablet, 1 EACH PO DAILY, (Reported) Discontinued Reason: Duplicate Order Entered as Reported by: CHAVA HERRERA on 11/24/22 0839 Oxycodone Hcl (Oxyir Tablet) 5 Mg Tab, 5 MG PO Q4H PRN for PAIN-MODERATE (5-7) Discontinued Reason: Duplicate Order Prescribed by: ZOHREH BHANDARI on 11/25/22 1010 Pantoprazole Sodium (Pantoprazole Sodium) 40 Mg Tablet.dr, 40 MG PO DAILY@0700 Discontinued Reason: Duplicate Order Prescribed by: ZOHREH BHANDARI on 11/25/22 1009 Phenazopyridine HCl (Phenazopyridine HCl) 100 Mg Tablet, 100 MG PO TIDPC Discontinued Reason: Duplicate Order Prescribed by: ZOHREH BHANDARI on 11/25/22 1009 Prednisone (Prednisone) 10 Mg Tab.ds.pk, 10 MG PO DAILY Discontinued Reason: Duplicate Order Prescribed by: ZOHREH BHANDARI on 11/25/22 1009 Ranolazine (Ranexa) 500 Mg Tab.er.12h, 500 MG PO BID Discontinued Reason: Duplicate Order Prescribed by: ZOHREH BHANDARI on 11/25/22 1009 Review of Systems Review of Systems Constitutional: no symptoms reported EENTM: no symptoms reported Respiratory: see HPI, cough, short of breath, wheezing Cardiovascular: see HPI, chest pain Gastrointestinal: no symptoms reported Genitourinary: no symptoms reported Musculoskeletal: no symptoms reported Skin: no symptoms reported Psychiatric/Neurological: No Symptoms Reported Endocrine: No Symptoms Reported Past Lqebrff-Njuuqv-Rvdjjc Hx Patient Social History Tobacco Use?: Yes Tobacco type used: Cigarettes Smoking Status: Former Smoker Immunizations Up To Date Tetanus Booster (TDap): Less than 5yrs PED Vaccines UTD: No First/Initial COVID19 Vaccinat: x2 Seasonal Allergies Seasonal Allergies: No Past Medical History Surgery/Hospitalization HX: bilateral hip replacement/removal, cardiac cath, appendectomy, chronic pain, mi, cad, htn, constipation, non-compliance Surgeries: Yes (BILAT HIP REPLACEMENTS X 22; WOUND DEBRIDEMENTS) Abdominal, Appendectomy, Cardiac, Defibrillator, Joint Replacement, Orthopedic, Pacemaker Respiratory: Yes Asthma, COPD Currently Using CPAP: No Currently Using BIPAP: No Cardiac: Yes (PACEMAKER, CARDIAC ARREST, SELF - REPORTED CT X 8; CHF) Atrial Fibrillation, Chronic Edema/Swelling, Coronary Artery Disease, Congenital Heart Disease, Heart Attack, Hypertension, Irregular Heartbeat Neurological: Yes Neuropathy Reproductive Disorders: No Sexually Transmitted Disease: No HIV/AIDS: No Genitourinary: Yes Neurogenic Bladder Gastrointestinal: Yes Abdominal Hernia, Chronic Constipation Musculoskeletal: Yes (AVASCULAR NECROSIS OF BILAT HIPS-MULTIPLE FAILED HIP JAYDA GERIES;CHRONIC PAIN) Arthritis, Chronic Back Pain, Fractures Endocrine: Yes Diabetes, Insulin dep HEENT: Yes Dysphagia Loss of Vision: Denies Hearing Impairment: Hard of Hearing Cancer: No Psychosocial: Yes Suicide Attempts, Depression Integumentary: Yes (recurrent wound issues) Recent Skin Changes Blood Disorders: No Adverse Reaction/Blood Tranf: Yes (HIGH FEVER AND CHILLS) Family Medical History COPD Diabetes mellitus No Pertinent Family Hx Adopted, unknown FH SOCIAL HISTORY: -SMOKED IN THE PAST, QUIT -ETOH--LONG HISTORY OF ABUSE -DRUGS--EXTENSIVE ABUSE OF RX DRUGS, ESPECIALLY OPIATES PAST SURGICAL HISTORY: -MULTIPLE FAILED BILATERAL HIP REPLACEMENTS, WITH EVENTUAL REMOVAL OF BOTH FEMORAL HEADS -CARDIAC CATH 08/26/[address] LOPEZ: CORONARY ANGIOGRAPHY: Coronary calcification is seen. Left main coronary artery is free of significant disease. Left anterior descending artery does not exhibit significant disease. Left circumflex artery has 30% to 40% mid vessel stenosis at the site of the origin of a large obtuse marginal branch. IFR across this lesion is 0.96. This indicates that the lesion is hemodynamically nonsignificant. Right coronary artery is codominant with the left circumflex artery. It does not exhibit significant disease. LEFT VENTRICULAR ANGIOGRAPHY: Left ventricular angiography was carried out in the right anterior oblique projection. Global left ventricular systolic function is normal. No regional wall motion abnormalities seen. Left ventricular ejection fraction is approximately 60%. CONCLUSIONS: 1. Mild to moderate coronary artery disease, nonobstructive. 2. Normal global left ventricular systolic function with ejection fraction approximately 60%. 3. Normal left ventricular end-diastolic pressure. DISCUSSION AND RECOMMENDATIONS: Based on results of the study, it appears appropriate to continue a conservative approach. Physical Exam Vital Signs Vital Signs - First Documented 12/16/22 12/16/22 20:32 20:33 Temp 36.1 Pulse 69 Resp 32 B/P (MAP) 113/103 (106) Pulse Ox 95 O2 Delivery Nasal Cannula O2 Flow Rate 3.00 FiO2 95 Capillary Refill : Height, Weight, BMI Height: 5'8.00" Weight: 170lbs. 8.0oz. [id number]; 31.44 BMI Method:Stated General Appearance: Other (MILDLY DYSPNEIC, WITH AUDIBLE WHEEZING, WITH NEB TREATMENT IN PROCESS ON ARRIVAL. PT IS ABLE TO TALK IN SHORT SENTENCES. PT IS DIRTY AND UNKEMPT. AND EXTREMELY MALODOROUS--URINE AND FECES, AND GENERAL BODY ODOR. PLUS STRONG ODOR OF ALCOHOL) HEENT: PERRL/EOMI Respiratory: Accessory Muscle Use, Decreased Breath Sounds, Respiratory Distress (MILD), Other (DECREASED AERATION IN ALL LUNG KRAMER, WITH DIFFUSE EXPIRATORY WHEEZING IN ALL LUNG KRAMER, WITH MILD DYSPNEA AND ACCESSORY MUSCLE USE) Cardiovascular: Regular Rate, Rhythm Gastrointestinal: Non Tender, Soft Neurologic/Psychiatric: Alert, Oriented x3, No Motor/Sensory Deficits Skin: Normal Color, Warm/Dry Focused Exam Lactate Level 12/16/22 21:58: Lactic Acid Level Laboratory Tests Test 12/16/22 21:58 Progress/Results/Core Measures Results/Orders Lab Results Laboratory Tests Test 12/16/22 21:00 12/16/22 21:58 Range/Units White Blood Count 12.7 H 4.3-11.0 10^3/uL Red Blood Count 4.76 4.30-5.52 10^6/uL Hemoglobin 14.9 # 13.3-17.7 g/dL Hematocrit 45 40-54 % Mean Corpuscular Volume 95 80-99 fL Mean Corpuscular Hemoglobin 31 25-34 pg Mean Corpuscular Hemoglobin Concent 33 32-36 g/dL Red Cell Distribution Width 14.6 H 10.0-14.5 % Platelet Count 357 130-400 10^3/uL Mean Platelet Volume 10.2 9.0-12.2 fL Immature Granulocyte % (Auto) 1 % Neutrophils (%) (Auto) 68 42-75 % Lymphocytes (%) (Auto) 19 12-44 % Monocytes (%) (Auto) 9 0-12 % Eosinophils (%) (Auto) 3 0-10 % Basophils (%) (Auto) 0 0-10 % Neutrophils # (Auto) 8.7 H 1.8-7.8 10^3/uL Lymphocytes # (Auto) 2.3 1.0-4.0 10^3/uL Monocytes # (Auto) 1.2 H 0.0-1.0 10^3/uL Eosinophils # (Auto) 0.4 H 0.0-0.3 10^3/uL Basophils # (Auto) 0.0 0.0-0.1 10^3/uL Immature Granulocyte # (Auto) 0.1 0.0-0.1 10^3/uL Erythrocyte Sedimentation Rate 15 0-30 MM/HR Prothrombin Time 13.2 12.2-14.7 SEC INR Comment 1.0 0.8-1.4 Activated Partial Thromboplast Time 24 24-35 SEC D-Dimer 0.98 H 0.00-0.49 UG/ML Sodium Level 143 135-145 MMOL/L Potassium Level 3.8 3.6-5.0 MMOL/L Chloride Level 102 98-107 MMOL/L Carbon Dioxide Level 24 21-32 MMOL/L Anion Gap 17 H 5-14 MMOL/L Blood Urea Nitrogen 18 7-18 MG/DL Creatinine 0.87 0.60-1.30 MG/DL Estimat Glomerular Filtration Rate 93 BUN/Creatinine Ratio 21 Glucose Level 91 70-105 MG/DL Magnesium Level 2.5 H 1.6-2.4 MG/DL Total Bilirubin 0.7 0.1-1.0 MG/DL Aspartate Amino Transf (AST/SGOT) 19 5-34 U/L Alanine Aminotransferase (ALT/SGPT) 16 0-55 U/L Alkaline Phosphatase 101 40-136 U/L Total Creatine Kinase 65 30-200 U/L Creatine Kinase MB 4.7 <6.6 NG/ML Myoglobin 130.9 H 10.0-92.0 NG/ML Troponin I 0.091 H <0.028 NG/ML C-Reactive Protein High Sensitivity 2.18 H 0.00-0.50 MG/DL B-Type Natriuretic Peptide 366.6 H <100.0 PG/ML Total Protein 6.7 6.4-8.2 GM/DL Albumin 3.4 3.2-4.5 GM/DL Lipase 8 8-78 U/L Serum Alcohol 200 H <10 MG/DL Influenza Type A (RT-PCR) Not Detected Not Detecte Influenza Type B (RT-PCR) Not Detected Not Detecte SARS-CoV-2 RNA (RT-PCR) Not Detected Not Detecte My Orders Orders - WILFRED CAMPBELL DO Ed Iv/Invasive Line Start (12/16/22 20:38) Ekg Tracing (12/16/22 20:38) O2 (12/16/22 20:38) Monitor-Rhythm Ecg Trace Only (12/16/22 20:38) Chest 1 View, Ap/Pa Only (12/16/22 20:38) Alcohol (12/16/22 20:38) Arterial Blood Gas (12/16/22 20:38) Bnp Ernesto (12/16/22 20:38) Cbc With Automated Diff (12/16/22 20:38) Comprehensive Metabolic Panel (12/16/22 20:38) Creatine Kinase (12/16/22 20:38) Creatine Kinase Mb (12/16/22 20:38) Hs C Reactive Protein (12/16/22 20:38) Fibrin Degradation Products (12/16/22 20:38) Drug Screen Stat (Urine) (12/16/22 20:38) Lactic Acid Analyzer (12/16/22 20:38) Lipase (12/16/22 20:38) Magnesium (12/16/22 20:38) Protime With Inr (12/16/22 20:38) Partial Thromboplastin Time (12/16/22 20:38) Ua Culture If Indicated (12/16/22 20:38) Erythrocyte Sedimentation Rate (12/16/22 20:38) Myoglobin Serum (12/16/22 20:38) Troponin I [place] (12/16/22 20:38) Albuterol Pre-Mix Nebs (Rt) (Proventil (12/16/22 20:38) Albuterol/Ipra Inhalation Soln (Duoneb I (12/16/22 20:45) Dexamethasone Injection (Decadron Injec (12/16/22 20:45) Rt Request For Service (12/16/22 20:38) Blood Culture (12/16/22 20:38) Sputum Culture (12/16/22 20:38) Urine Culture (12/16/22 20:38) Ed Iv/Invasive Line Start (12/16/22 20:38) Ed Iv/Invasive Line Start (12/16/22 20:38) Vital Signs Adult Sepsis Patie Q15M (12/16/22 20:38) O2 (12/16/22 20:38) Remove Rings In Anticipation O (12/16/22 20:38) Cefepime Injection (Maxipime Injection) (12/16/22 20:45) Covid 19 Inhouse Test (12/16/22 20:38) Svn Small Volume Nebulizer (12/16/22 20:38) Svn Small Volume Nebulizer (12/16/22 20:38) Influenza A And B By Pcr (12/16/22 20:38) Isolation Central Supply Req (12/16/22 20:38) Methylprednisolone Sod Succ (Solu-Medrol (12/16/22 20:38) Ed Iv/Invasive Line Start (12/16/22 20:38) Ns Iv 1000 Ml (Sodium Chloride 0.9%) (12/16/22 20:45) Catheter(Urinary) Insert & Ass 03,15 (12/16/22 21:02) Lidocaine 2% (Urojet) (Xylocaine Urojet) (12/16/22 21:15) Vital Signs/I&O 12/16/22 12/16/22 12/16/22 20:32 20:33 20:33 Temp 36.1 Pulse 69 Resp 32 B/P (MAP) 113/103 (106) Pulse Ox 95 O2 Delivery Nasal Cannula Nasal Cannula Nasal Cannula O2 Flow Rate 3.00 3.00 FiO2 95 Progress Progress Note : Progress Note PPE WORN COVID AND FLU TESTING DONE SEPSIS PROTOCOL INITITATED GIVEN: -IV FLUIDS -SOLU-MEDROL -NEB TREATMENTS -ANTIBIOTICS REVIEWED PRIOR RECORDS, INCLUDING ER VISITS, ADMITS, H&P'S, CONSULTS, DISCHARGE SUMMARIES. Initial ECG Impression Date: Dec 16, 2022 Comment INTERPRETED BY ME Departure Impression Primary Impression: COPD exacerbation Additional Impressions: NSTEMI (non-ST elevated myocardial infarction) Alcohol intoxication in active alcoholic Non-compliance NON AMBULATORY Unable to care for self CHF (congestive heart failure) Departure-Patient Inst. Referrals: OLEGARIO ROSENTHAL MD (PCP/Family) Primary Care Physician WILFRED CAMPBELL DO Dec 16, 2022 20:48
[2022-12-16 21:15] LABS: BASOPHILS % (AUTO) 0 % (0-10); EOSINOPHILS # (AUTO) 0.4 10^3/uL (0.0-0.3); EOSINOPHILS % (AUTO) 3 % (0-10); HEMATOCRIT 45 % (40-54); HEMOGLOBIN 14.9 g/dL (13.3-17.7); LYMPHOCYTES # (AUTO) 2.3 10^3/uL (1.0-4.0); LYMPHOCYTES % (AUTO) 19 % (12-44); MEAN CORPUSCULAR HEMOGLOBIN 31 pg (25-34); MEAN CORPUSCULAR HGB CONC 33 g/dL (32-36); MEAN CORPUSCULAR VOLUME 95 fL (80-99); MEAN PLATELET VOLUME 10.2 fL (9.0-12.2); MONOCYTES # (AUTO) 1.2 10^3/uL (0.0-1.0); MONOCYTES % (AUTO) 9 % (0-12); NEUTROPHILS # (AUTO) 8.7 10^3/uL (1.8-7.8); NEUTROPHILS % (AUTO) 68 % (42-75); PLATELET COUNT 357 10^3/uL (130-400); WHITE BLOOD COUNT 12.7 10^3/uL (4.3-11.0)
[2022-12-16] MEDS ORDERED: LIDOCAINE UROJET 2% GEL 10 ML PKG TOP ONE (21:15)
[2022-12-16 21:42] LABS: ERYTHROCYTE SEDIMENTATION RATE 15 MM/HR (0-30)
[2022-12-16 21:43] LABS: ALBUMIN 3.4 GM/DL (3.2-4.5); BILIRUBIN,TOTAL 0.7 MG/DL (0.1-1.0); CREATININE SERUM 0.87 MG/DL (0.60-1.30); MAGNESIUM 2.5 MG/DL (1.6-2.4); POTASSIUM 3.8 MMOL/L (3.6-5.0); TOTAL PROTEIN 6.7 GM/DL (6.4-8.2)
[2022-12-16 21:50] LABS: CREATINE KINASE MB 4.7 NG/ML (<6.6)
[2022-12-16 22:02] LABS: FIBRIN DEGRADATION PRODUCTS 0.98 UG/ML (0.00-0.49); PROTHROMBIN TIME PATIENT 13.2 SEC (12.2-14.7)
[2022-12-16 22:18] LABS: CALCIUM 9.3 MG/DL (8.5-10.1)
[2022-12-16 22:23] LABS: ABG BASE EXCESS 1.6 MMOL/L (-2.5-2.5); ABG OXYGEN SATURATION 97 % (94-100); ABG PCO2 48 MMHG (35-45); ABG PH 7.36 (7.37-7.43); ABG PO2 94 MMHG (79-93); ABG TCO2 28.2 MMOL/L (21.0-31.0)
[2022-12-16 22:25] LABS: ALLENS TEST YES-POS; INSPIRED O2 3L; PATIENT TEMP 36.4; VENTILATOR NO
[2022-12-16] MEDS ORDERED: FUROSEMIDE 40 MG/4 ML INJ (LASIX) IVP ONE (22:30)
[2022-12-16] MEDS ORDERED: ENOXAPARIN 80 MG/0.8 ML (LOVENOX) SYR SC ONE (22:30)
--- NOTE | 2022-12-16 22:47 | Diagnostic Imaging Report ---
CLINICAL INDICATION: Patient with dyspnea and shortness of breath. EXAM: Portable chest x-ray upright view. COMPARISON: Chest x-ray dated 12/12/2022. FINDINGS: There is interval improved aeration of both lungs compared to prior study. There is mild airspace opacities involving both lung bases which may represent residual atelectasis versus infiltrates. Possible small right pleural effusion. There is no pneumothorax. Cardiomegaly is seen. Pulmonary vascular prominence has decreased in the interim and there is no significant congestion seen. Cardiac pacemaker is again seen and appears intact. IMPRESSION: 1: There is interval improved aeration of both lungs with residual mild bibasilar atelectasis with infiltrates. Suspected small right pleural effusion. 2: There is cardiomegaly with interval resolution of the previously seen pulmonary vascular congestion. Dictated by: Dictated on workstation # [id number]
[2022-12-16 22:56] LABS: CLARITY,URINE CLEAR; COLOR,URINE DARK YELLOW; GLUCOSE, URINE (UA) TRACE (NEGATIVE); KETONES,URINE NEGATIVE (NEGATIVE); LEUKOCYTE ESTERASE ,URINE NEGATIVE (NEGATIVE); NITRITE,URINE POSITIVE (NEGATIVE); PROTEIN,URINE 2+ (NEGATIVE)
[2022-12-16 23:05] LABS: BACTERIA,URINE TRACE /HPF
[2022-12-16 23:08] LABS: AMORPHOUS SEDIMENT,UR RARE AMOR URATES /LPF; RBC,URINE 0-2 /HPF; WBC,URINE 0-2 /HPF
[2022-12-16 23:10] LABS: BILIRUBIN,URINE 1+ (NEGATIVE)
[2022-12-16 23:12] LABS: AMPHETAMINE SCREEN, URINE NEGATIVE (NEGATIVE); BARBITURATE SCREEN URINE NEGATIVE (NEGATIVE); BENZODIAZEPINES SCREEN URINE NEGATIVE (NEGATIVE); CANNABINOID SCREEN, URINE NEGATIVE (NEGATIVE); COCAINE SCREEN URINE NEGATIVE (NEGATIVE); METHADONE STAT NEGATIVE (NEGATIVE); OPIATE SCREEN URINE NEGATIVE (NEGATIVE); OXYCODONE STAT NEGATIVE (NEGATIVE); PROPOXYPHENE STAT NEGATIVE (NEGATIVE); TRICYCLIC ANTIDEPRESSANTS SCRE NEGATIVE (NEGATIVE)
[2022-12-17] VITALS (13 sets, daily range): BP systolic 105–146; BP diastolic 56–97
[2022-12-17] MEDS ORDERED: ONDANSETRON 4 MG/2 ML (SDV) Z0FRAN IV PRN (01:30)
[2022-12-17] MEDS ORDERED: CATHETER FLUSH 10 ML SYR IVP PRN (01:30)
[2022-12-17] MEDS ORDERED: ONDANSETRON 4 MG (ZOFRAN) ORAL DISSOLVE TAB SL PRN (01:45)
[2022-12-17] MEDS ORDERED: morphine INJ 4 MG/ML 1 ML (VIAL/SYRINGE) IV PRN (01:45)
[2022-12-17] MEDS ORDERED: LORazepam INJ 2 MG/ML (ATIVAN) VIAL IV PRN (01:45)
[2022-12-17] MEDS ORDERED: SENNA W/DOCUSATE (SENOKOT S) TABLET PO PRN (01:45)
[2022-12-17] MEDS ORDERED: LORazepam 1 MG (ATIVAN) TAB PO PRN (01:45)
[2022-12-17] MEDS ORDERED: ANTACID SUSP 30 ML UDC (MYLANTA) PO PRN (01:45)
[2022-12-17] MEDS ORDERED: 1/2 NS IV SOLUTION 1,000 ML IV PRN (01:45)
[2022-12-17] MEDS ORDERED: LORazepam INJ 2 MG/ML (ATIVAN) VIAL IM/IV PRN (01:45)
[2022-12-17] MEDS ORDERED: D5 1/2 NS 1000 ML IV SOLUTION 1,000 ML IV PRN (01:45)
[2022-12-17] MEDS ORDERED: NITROGLYCERIN 0.4 MG SL TABS BTL 25'S SL PRN (01:45)
[2022-12-17] MEDS: morphine INJ 4 MG/ML 1 ML (VIAL/SYRINGE) IV PRN ×3 (02:23→22:07)
[2022-12-17] MEDS ORDERED: RT-ALBUTEROL SULF 2.5 MG/3 ML PRE-MIX VIAL INH PRN ×2 (03:30→11:45)
[2022-12-17] MEDS: D5 1/2 NS W/KCL 20 MEQ/L 1,000 ML IV SCH ×4 (03:52→22:06)
[2022-12-17] MEDS: methylPREDNISolone 125 MG (Solu-MEDROL) VIAL IVP SCH ×4 (03:53→22:07)
[2022-12-17 04:41] LABS: BASOPHILS % (AUTO) 0 % (0-10); EOSINOPHILS % (AUTO) 0 % (0-10); HEMATOCRIT 39 % (40-54); LYMPHOCYTES # (AUTO) 0.4 10^3/uL (1.0-4.0); LYMPHOCYTES % (AUTO) 3 % (12-44); MEAN CORPUSCULAR HEMOGLOBIN 32 pg (25-34); MEAN CORPUSCULAR HGB CONC 34 g/dL (32-36); MEAN CORPUSCULAR VOLUME 94 fL (80-99); MEAN PLATELET VOLUME 10.5 fL (9.0-12.2); MONOCYTES # (AUTO) 0.1 10^3/uL (0.0-1.0); MONOCYTES % (AUTO) 1 % (0-12); NEUTROPHILS # (AUTO) 11.1 10^3/uL (1.8-7.8); NEUTROPHILS % (AUTO) 95 % (42-75); PLATELET COUNT 364 10^3/uL (130-400); WHITE BLOOD COUNT 11.6 10^3/uL (4.3-11.0)
[2022-12-17 05:05] LABS: CALCIUM 8.9 MG/DL (8.5-10.1); CREATININE SERUM 0.91 MG/DL (0.60-1.30); POTASSIUM 3.7 MMOL/L (3.6-5.0)
[2022-12-17 05:15] LABS: LYMPHOCYTES % (MANUAL) 4 %; NEUTROPHILS % (MANUAL) 96 %; RBC MORPH NORMAL
[2022-12-17] MEDS ORDERED: FUROSEMIDE 40 MG/4 ML INJ (LASIX) IV ONE (06:00)
[2022-12-17] MEDS: CATHETER FLUSH 10 ML SYR IVP SCH ×3 (06:19→22:00)
[2022-12-17] MEDS: RT-ALBUTEROL SULF 2.5 MG/3 ML PRE-MIX VIAL INH SCH ×5 (06:54→22:15)
--- NOTE | 2022-12-17 08:18 | Consultation-Cardiology ---
HPI-Cardiology Cardiology Consultation Date of Consultation 12/17/22 Date of Admission Time Seen by Provider: 08:12 Indication: Chest pain HPI 72 years old gentleman with history of coronary artery disease, started to have chest pain and shortness of breath, cough. Patient has history of alcoholism and drug abuse. Came into the emergency room for evaluation. He denied any fever or chills. He was noted to have mildly elevation in troponin. 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 Smoking Status: Former Smoker Type Used: Cigarettes 2nd Hand Smoke Exposure: Yes Recent Hopitalizations: No Have you traveled recently?: No Alcohol Use?: Yes Substance type: Opiates/Opioids Immunizations Up To Date Tetanus Booster (TDap): Less than 5yrs Date of Pneumonia Vaccine: Jul 03, 2018 Date of Influenza Vaccine: Dec 11, 2022 Past Medical History Discussed below Family Medical History Significant Family History: No Pertinent Family Hx Family History: COPD Diabetes mellitus Review of Systems-General Review of Systems Constitutional: no symptoms reported, see HPI, malaise, weakness EENTM: see HPI, no symptoms reported Respiratory: see HPI, cough, dyspnea on exertion; No hemoptysis, No orthopnea, No phlegm; short of breath; No stridor; wheezing; No other Cardiovascular: see HPI, chest pain; No edema, No Hx of Intervention, No palpitations, No syncope, No vascular heart diseas, No other Gastrointestinal: no symptoms reported, see HPI Genitourinary: no symptoms reported, see HPI Musculoskeletal: no symptoms reported, see HPI Skin: no symptoms reported, see HPI Psychiatric/Neurological: No Symptoms Reported, See HPI Reviewed Test Results Reviewed Test Results Lab Laboratory Tests Test 12/16/22 21:00 12/16/22 21:58 12/16/22 22:10 12/16/22 22:45 Range/Units White Blood Count 12.7 H 4.3-11.0 10^3/uL Red Blood Count 4.76 4.30-5.52 10^6/uL Hemoglobin 14.9 # 13.3-17.7 g/dL Hematocrit 45 40-54 % Mean Corpuscular Volume 95 80-99 fL Mean Corpuscular Hemoglobin 31 25-34 pg Mean Corpuscular Hemoglobin Concent 33 32-36 g/dL Red Cell Distribution Width 14.6 H 10.0-14.5 % Platelet Count 357 130-400 10^3/uL Mean Platelet Volume 10.2 9.0-12.2 fL Immature Granulocyte % (Auto) 1 % Neutrophils (%) (Auto) 68 42-75 % Lymphocytes (%) (Auto) 19 12-44 % Monocytes (%) (Auto) 9 0-12 % Eosinophils (%) (Auto) 3 0-10 % Basophils (%) (Auto) 0 0-10 % Neutrophils # (Auto) 8.7 H 1.8-7.8 10^3/uL Lymphocytes # (Auto) 2.3 1.0-4.0 10^3/uL Monocytes # (Auto) 1.2 H 0.0-1.0 10^3/uL Eosinophils # (Auto) 0.4 H 0.0-0.3 10^3/uL Basophils # (Auto) 0.0 0.0-0.1 10^3/uL Immature Granulocyte # (Auto) 0.1 0.0-0.1 10^3/uL Erythrocyte Sedimentation Rate 15 0-30 MM/HR Prothrombin Time 13.2 12.2-14.7 SEC INR Comment 1.0 0.8-1.4 Activated Partial Thromboplast Time 24 24-35 SEC D-Dimer 0.98 H 0.00-0.49 UG/ML Sodium Level 143 135-145 MMOL/L Potassium Level 3.8 3.6-5.0 MMOL/L Chloride Level 102 98-107 MMOL/L Carbon Dioxide Level 24 21-32 MMOL/L Anion Gap 17 H 5-14 MMOL/L Blood Urea Nitrogen 18 7-18 MG/DL Creatinine 0.87 0.60-1.30 MG/DL Estimat Glomerular Filtration Rate 93 BUN/Creatinine Ratio 21 Glucose Level 91 70-105 MG/DL Calcium Level 9.3 8.5-10.1 MG/DL Corrected Calcium 9.8 8.5-10.1 MG/DL Magnesium Level 2.5 H 1.6-2.4 MG/DL Total Bilirubin 0.7 0.1-1.0 MG/DL Aspartate Amino Transf (AST/SGOT) 19 5-34 U/L Alanine Aminotransferase (ALT/SGPT) 16 0-55 U/L Alkaline Phosphatase 101 40-136 U/L Total Creatine Kinase 65 30-200 U/L Creatine Kinase MB 4.7 <6.6 NG/ML Myoglobin 130.9 H 10.0-92.0 NG/ML Troponin I 0.091 H <0.028 NG/ML C-Reactive Protein High Sensitivity 2.18 H 0.00-0.50 MG/DL B-Type Natriuretic Peptide 366.6 H <100.0 PG/ML Total Protein 6.7 6.4-8.2 GM/DL Albumin 3.4 3.2-4.5 GM/DL Lipase 8 8-78 U/L Serum Alcohol 200 H <10 MG/DL Influenza Type A (RT-PCR) Not Detected Not Detecte Influenza Type B (RT-PCR) Not Detected Not Detecte SARS-CoV-2 RNA (RT-PCR) Not Detected Not Detecte Lactic Acid Level 3.11 *H 0.50-2.00 MMOL/L Blood Gas Puncture Site L RAD Blood Gas Patient Temperature 36.4 Arterial Blood pH 7.36 L 7.37-7.43 Arterial Blood Partial Pressure CO2 48 H 35-45 MMHG Arterial Blood Partial Pressure O2 94 H 79-93 MMHG Arterial Blood HCO3 27 23-27 MMOL/L Arterial Blood Total CO2 28.2 21.0-31.0 MMOL/L Arterial Blood Oxygen Saturation 97 94-100 % Arterial Blood Base Excess 1.6 -2.5-2.5 MMOL/L Raudel Test YES-POS Blood Gas Ventilator Setting NO Blood Gas Inspired Oxygen 3L Urine Color DARK YELLOW Urine Clarity CLEAR Urine pH 7.0 5-9 Urine Specific Rembrandt 1.010 L 1.016-1.022 Urine Protein 2+ H NEGATIVE Urine Glucose (UA) TRACE H NEGATIVE Urine Ketones NEGATIVE NEGATIVE Urine Nitrite POSITIVE H NEGATIVE Urine Bilirubin 1+ H NEGATIVE Urine Urobilinogen 4.0 < = 1.0 MG/DL Urine Leukocyte Esterase NEGATIVE NEGATIVE Urine RBC (Auto) NEGATIVE NEGATIVE Urine RBC 0-2 /HPF Urine WBC 0-2 /HPF Urine Squamous Epithelial Cells NONE /HPF Urine Crystals PRESENT H /LPF Urine Amorphous Sediment RARE GABRIEL URATES H /LPF Urine Bacteria TRACE /HPF Urine Casts NONE /LPF Urine Mucus NEGATIVE /LPF Urine Culture Indicated CULTURE PENDING Urine Opiates Screen NEGATIVE NEGATIVE Urine Oxycodone Screen NEGATIVE NEGATIVE Urine Methadone Screen NEGATIVE NEGATIVE Urine Propoxyphene Screen NEGATIVE NEGATIVE Urine Barbiturates Screen NEGATIVE NEGATIVE Ur Tricyclic Antidepressants Screen NEGATIVE NEGATIVE Urine Phencyclidine Screen NEGATIVE NEGATIVE Urine Amphetamines Screen NEGATIVE NEGATIVE Urine Methamphetamines Screen NEGATIVE NEGATIVE Urine Benzodiazepines Screen NEGATIVE NEGATIVE Urine Cocaine Screen NEGATIVE NEGATIVE Urine Cannabinoids Screen NEGATIVE NEGATIVE Test 12/17/22 04:23 Range/Units White Blood Count 11.6 H 4.3-11.0 10^3/uL Red Blood Count 4.12 L 4.30-5.52 10^6/uL Hemoglobin 13.0 L 13.3-17.7 g/dL Hematocrit 39 L 40-54 % Mean Corpuscular Volume 94 80-99 fL Mean Corpuscular Hemoglobin 32 25-34 pg Mean Corpuscular Hemoglobin Concent 34 32-36 g/dL Red Cell Distribution Width 14.6 H 10.0-14.5 % Platelet Count 364 130-400 10^3/uL Mean Platelet Volume 10.5 9.0-12.2 fL Immature Granulocyte % (Auto) 1 % Neutrophils (%) (Auto) 95 H 42-75 % Lymphocytes (%) (Auto) 3 L 12-44 % Monocytes (%) (Auto) 1 0-12 % Eosinophils (%) (Auto) 0 0-10 % Basophils (%) (Auto) 0 0-10 % Neutrophils # (Auto) 11.1 H 1.8-7.8 10^3/uL Lymphocytes # (Auto) 0.4 L 1.0-4.0 10^3/uL Monocytes # (Auto) 0.1 0.0-1.0 10^3/uL Eosinophils # (Auto) 0.0 0.0-0.3 10^3/uL Basophils # (Auto) 0.0 0.0-0.1 10^3/uL Immature Granulocyte # (Auto) 0.1 0.0-0.1 10^3/uL Neutrophils % (Manual) 96 % Lymphocytes % (Manual) 4 % Blood Morphology Comment NORMAL Sodium Level 143 135-145 MMOL/L Potassium Level 3.7 3.6-5.0 MMOL/L Chloride Level 104 98-107 MMOL/L Carbon Dioxide Level 22 21-32 MMOL/L Anion Gap 17 H 5-14 MMOL/L Blood Urea Nitrogen 17 7-18 MG/DL Creatinine 0.91 0.60-1.30 MG/DL Estimat Glomerular Filtration Rate 91 BUN/Creatinine Ratio 19 Glucose Level 140 H 70-105 MG/DL Calcium Level 8.9 8.5-10.1 MG/DL Triglycerides Level 88 <150 MG/DL Cholesterol Level 195 < 200 MG/DL LDL Cholesterol Direct 96 1-129 MG/DL VLDL Cholesterol 18 5-40 MG/DL HDL Cholesterol 76 H 40-60 MG/DL Physical Exam Physical Exam Vital Signs Vital Signs - First Documented 12/16/22 12/16/22 20:32 20:33 Temp 36.1 Pulse 69 Resp 32 B/P (MAP) 113/103 (106) Pulse Ox 95 O2 Delivery Nasal Cannula O2 Flow Rate 3.00 FiO2 95 Capillary Refill : Height, Weight, BMI Height: 5'8.00" Weight: 170lbs. 8.0oz. 77.465624ym; 29.57 BMI Method:Stated General Appearance: No Apparent Distress, WD/WN Eyes: Bilateral Eye Normal Inspection, Bilateral Eye PERRL, Bilateral Eye EOMI HEENT: PERRL/EOMI Neck: Full Range of Motion, Normal Inspection, Non Tender, Supple, Carotid Bruit Respiratory: Accessory Muscle Use, Decreased Breath Sounds, Respiratory Distress (MILD), Other (DECREASED AERATION IN ALL LUNG KRAMER, WITH DIFFUSE EXPIRATORY WHEEZING IN ALL LUNG KRAMER, WITH MILD DYSPNEA AND ACCESSORY MUSCLE USE) Cardiovascular: Regular Rate, Rhythm Gastrointestinal: Non Tender, Soft Back: Normal Inspection, No CVA Tenderness, No Vertebral Tenderness Extremity: Normal Capillary Refill, Normal Inspection, Normal Range of Motion, Non Tender, No Calf Tenderness, No Pedal Edema Neurologic/Psychiatric: Alert, Oriented x3, No Motor/Sensory Deficits Skin: Normal Color, Warm/Dry Lymphatic: No Adenopathy A/P-Cardiology Admission Diagnosis Chest pain Non-ST elevation myocardial infarction Shortness of breath Alcohol intoxication Assessment/Plan Chest pain, minimal elevation in troponin Non-ST elevation myocardial infarction Probably secondary to small vessel disease. Known to have nonobstructive disease by cardiac catheterization in August 2022. Intolerant to nitroglycerin with headache Conservative management is recommended. No intervention or catheterization is recommended Shortness of breath, questionable pneumonia Managed by medical team Alcohol intoxication, history of alcoholism and polysubstance abuse. Managed by medical team Dysuria, had history of recurrent UTI. Managed by primary care physician Coronary artery disease, cardiac catheterization carried out in 2012 and 2014 with diffuse atherosclerotic plaques. Nonobstructive disease. Cardiac catheterization was carried out by Dr. Houser on August 26, 2022 with nonobstructive coronary artery disease. iFR was done through the circumflex artery. Review of his cardiac catheterization film showed calcification in the left main and the proximal LAD with mild to moderate disease, 50% stenosis in the mid circumflex artery with IFR 0.97. Small vessel disease distally, dominant circumflex artery. 2D echo done on August 26, 2022 with normal LV size and function. Ejection fraction 55 to 60%, grade 2 diastolic dysfunction, biatrial enlargement, PA pressure 15 mmHg Hypertension, starting metoprolol ER 25 mg daily Patient has pacemaker Continue to monitor Hyperlipidemia, well controlled on current medication, continue to monitor History of dual-chamber pacemaker due to sinus node dysfunction, he has history of sinus pause for 3.2 second. Continue to monitor History of avascular necrosis of the hip, underwent multiple hip surgeries in the past and hip replacements. History of gastroesophageal reflux disease, COPD. Polysubstance use for pain control Previous history of tobaccoism Poor hygiene. SKYLA SQUIRES MD Dec 17, 2022 08:18
[2022-12-17] MEDS: ASPIRIN E.C. 81 MG (ECOTRIN) TAB PO SCH (08:27)
[2022-12-17] MEDS: ENOXAPARIN 80 MG/0.8 ML (LOVENOX) SYR SC SCH ×2 (08:27→22:07)
[2022-12-17] MEDS: THIAMINE INJECTION 100 MG, FOLIC ACID INJECTION 1 MG, MAGNESIUM SULFATE 2 GM, VITAMIN M... IV SCH ×5 (08:28)
--- NOTE | 2022-12-17 13:04 | Occupational Therapy Eval ---
OT Evaluation-General/PLF Medical Diagnosis Admission Date Dec 16, 2022 at 22:20 Medical Diagnosis: COPD exacerbation, NSTEMI, CHF, ETOH intoxication Onset Date: Dec 16, 2022 Therapy Diagnosis Therapy Diagnosis: weakness, need gurmeet assistance w/ personal care, pressure ulcer Height/Weight Height (Feet): 5 Height (Inches): 8.00 Weight (Pounds): 170 Weight (Ounces): 8.0 Precautions Precautions/Isolations: Fall Prevention, Standard Precautions, Pressure Ulcer Referral Referral Reason: Self Care, Evaluation/Treatment Medical History Pertinent Medical History: Atrial Fib, Arthritis, CAD, COPD, DM, Heart Failure, HTN, Neuropathy Additional Medical History Patient was discharged from this hospital last week, notable frequent admissions Current History The patient states he was admitted to the hospital due to a panic attack. He verbalized that a worker was cleaning his home and "throwing away things" and that he did not like it. Reviewed History: Yes Social History Home: Apartment Current Living Status: Children (son per patient) ADL-Prior Level of Function SCALE: Activities may be completed with or without assistive devices. 2-Hoxmcboykd-tkjukla completes the activity by him/herself with no assistance from a helper. 5-Set-up or Clean-up Assistance-helper sets up or cleans up; patient completes activity. [place] assists only prior to or following the activity. 4-Supervision or Touching Assistance-helper provides verbal cues and/or touching/steadying and/or contact guard assistance as patient completes activity. Assistance may be provided throughout the activity or intermittently. 3-Partial/Moderate Assistance-helper does LESS THAN HALF the effort. [place] lifts, holds or supports trunk or limbs, but provides less than half the effort. 2-Substantial/Maximal Assistance-helper does MORE THAN HALF the effort. [place] lifts or holds trunk or limbs and provides more than half the effort. 0-Tahzmicyn-lcqaue does ALL the effort. Patient does none of the effort to complete the activity. Or, the assistance of 2 or more helpers is required for the patient to complete the activity. If activity was not attempted, code reason: 7-Patient Refused. 9-Not Applicable-not attempted and the patient did not perform the activity before the current illness, exacerbation or injury. 10-Not Attempted due to Environmental Limitations-(lack of equipment, weather restraints, etc.). 88-Not Attempted due to Medical Conditions or Safety Concerns. ADL PLOF Comments Has caregivers in home however is refusing assistance from workers frequently. Self Care: Needed Some Help Functional Cognition: Independent DME/Equipment: Bath Bench (does not use) DME/Equipment Comments manual and electric wheelchair at home Drive Self: No OT Current Status Mental Status/Objective Patient Orientation: Person, Place, Time, Situation Attachments: IV Current Upper Extremity ROM BUE WFLS Upper Extremity Strength BUE WFLS for depression transfers-does not use slide transfer board, shearing risk d/t PU ADL-Treatment Eating (QC): 6 Oral Hygiene (QC): 5 Shower/Bathe Self (QC): 7 (refused when asked) Upper Body Dressing (QC): 5 Lower Body Dressing (QC): 3 On/Off Footwear (QC): 4 Toileting Hygiene (QC): 1 Education OT Patient Education: Correct positioning, Energy conservation, Exercise pr ogram, Modified ADL techniques, Progress toward Goal/Update tx plan, Purpose of tx/functional activities, Reviewed precautions, Rehab process, Safety issues, Transfer techniques, Use of adapted equipment, Other (offloading PU, risks of sleeping in recliner) Teaching Recipient: Patient Teaching Methods: Demonstration Response to Teaching: Verbalize Understanding, Reinforcement Needed OT Bit Shaver Goals Bit Shaver Goals 1=Demonstrate adherence to instructed precautions during ADL tasks. 2=Patient will verbalize/demonstrate understanding of assistive devices/modifications for ADL. 3=Patient will improve strength/tolerance for activity to enable patient to perform ADL's and offload as needed. OT Education/Plan Problem List/Assessment Assessment: Decreased Activ Tolerance, Decreased Safety Aware, Dependent Transfers, Impaired Bed Mobility, Impaired Coordination, Impaired Self-Care Skills Discharge Recommendations Plan/Recommendations: Continue POC Therapy Discharge Recommendati: Post Acute OT Treatment Plan/Plan of Care Treatment,Training & Education: Yes Patient would benefit from OT for education, treatment and training to promote independence in ADL's, mobility, safety and/or upper extremity function for ADL's. Plan of Care: ADL Retraining, Functional Mobility, Group Exercise/Act as Ind, UE Funct Exercise/Act Treatment Duration: Dec 20, 2022 Frequency: 3 times per week (3-5 times per week) Estimated Hrs Per Day: .25 hour per day Rehab Potential: Guarded Time Start Time: 12:05 Stop Time: 12:20 DATE: Dec 17, 2022 Total Time Billed (hr/min): 15 Billed Treatment Time 1 visit EVM 1 15 min YANCI QUEVEDO OT Dec 17, 2022 13:04
[2022-12-17] MEDS: GABAPENTIN 300 MG (NEURONTIN) CAP PO SCH ×2 (13:57→22:06)
--- NOTE | 2022-12-17 14:01 | Physical Therapy Evaluation ---
PT Evaluation-General Medical Diagnosis Admission Date Dec 16, 2022 at 22:20 Medical Diagnosis: COPD exacerbation, NSTEMI, CHF, ETOH intoxication Onset Date: Dec 16, 2022 Therapy Diagnosis Therapy Diagnosis: Respiratory failure Height/Weight Height (Feet): 5 Height (Inches): 8.00 Weight (Pounds): 170 Weight (Ounces): 8.0 Precautions Precautions/Isolations: Fall Prevention, Standard Precautions, Pressure Ulcer Weight Bear Status Pt is non ambulatory due to having both hip joints removed approximately 12 years ago Referral Physician: Kirsten Sanz Reason for Referral: Evaluation/Treatment Medical History Pertinent Medical History: Atrial Fib, Alcoholism, Arthritis, CAD, COPD, DM, Heart Failure, HTN, Neuropathy Additional Medical History Pt has had both hip joints removed. Reviewed History: Yes Social History Home: Apartment Current Living Status: Children (son per patient) Pt is w/c dependent. He sleeps in a recliner at home. Has in home assistance for ADLs and house work. Prior Prior Level of Function SCALE: Activities may be completed with or without assistive devices. 4-Syzdmcmxys-zwkagic completes the activity by him/herself with no assistance from a helper. 5-Set-up or Clean-up Assistance-helper sets up or cleans up; patient completes activity. [place] assists only prior to or following the activity. 4-Supervision or Touching Assistance-helper provides verbal cues and/or touching/steadying and/or contact guard assistance as patient completes activity. Assistance may be provided throughout the activity or intermittently. 3-Partial/Moderate Assistance-helper does LESS THAN HALF the effort. [place] lifts, holds or supports trunk or limbs, but provides less than half the effort. 2-Substantial/Maximal Assistance-helper does MORE THAN HALF the effort. [place] lifts or holds trunk or limbs and provides more than half the effort. 3-Msnfmjmzo-ndpikp does ALL the effort. Patient does none of the effort to complete the activity. Or, the assistance of 2 or more helpers is required for the patient to complete the activity. If activity was not attempted, code reason: 7-Patient Refused. 9-Not Applicable-not attempted and the patient did not perform the activity before the current illness, exacerbation or injury. 10-Not Attempted due to Environmental Limitations-(lack of equipment, weather restraints, etc.). 88-Not Attempted due to Medical Conditions or Safety Concerns. Bed Mobility: 9 Transfers (B,C,W/C): 4 Gait: 9 Wheelchair Mobility: 6 Prior Devices Use: Motorized wheelchair PT Evaluation-Current Subjective Pt admitted via ER secondary to shortness of breath. Objective Patient Orientation: Normal For Age Attachments: Oxygen, IV ROM/Strength Strength Upper Extremities (B) knee flexion 90 degrees, (B) hip 90 degrees passive Strength Lower Extremities (L) LE 1/5 throughout (R) LE ankle, quads 3/5, hip flexors/extensors 2/5 Transfers Roll Left to Right (QC): 6 Sit to Lying (QC): 4 Lying to Sitting/Side of Bed(Q: 4 Sit to Stand (QC): 9 Pt required Min assist to come to sitting and return to supine. He was able to scoot himself up in bed and also scoot to the edge of the bed by utilizing (B) UEs. Gait Does the Patient Walk?: No and Walking Goal NOT indicated Mode of Locomotion: Wheelchair Anticipated Mode of Locomotion: Wheelchair Comments/Gait Description Pt is not a candidate for walking and a manual w/c is not recommended due to hisotry of (B) shoulder pain. Pt has a power chair and will be able to manage the chair once he transfers into it. Wheelchair Training Type of Wheelchair: Motorized Balance Sitting Static: Good Sitting Dynamic: Good Assessment/Needs Pt has (B) LE weakness which is chronic from disuse following a surgical removal of (B) hip joints greater than 10 years ago. He is at risk for skin break down due to chronic sitting and sheer forces from scooting. Pt was educated on these topics and can use further education. Pt's potential for improved mobility is poor based on chronic medical history and self care compliance. Therapy will work with him on mobility and education during his stay on acute care. Rehab Potential: Poor PT Detention Goals Finishing Lab Technician Goals PT Finishing Lab Technician Goals Time Frame: Dec 22, 2022 Roll Left & Right (QC): 6 Sit to Lying (QC): 6 Lying-Sitting on Side/Bed(QC): 6 Chair/Zbk-pw-Fmkwn Xfer(QC): 3 PT Plan Problem List Problem List: Functional Strength, Transfer, Bed Mobility Treatment/Plan Treatment Plan: Continue Plan of Care Treatment Duration: Dec 15, 2022 Frequency: 6 times per week Estimated Hrs Per Day: .25 hour per day Patient and/or Family Agrees t: Yes Safety Risks/Education Patient Education: Transfer Techniques, Correct Positioning Teaching Recipient: Patient Time Time In: 1200 Time Out: 1220 DATE: Dec 17, 2022 Total Billed Treatment Time: 20 Total Billed Treatment visit, evaluation moderate complexity 20 minutes TATE JARRELL PT Dec 17, 2022 14:01
--- NOTE | 2022-12-17 14:13 | History & Physical-Hospitalist ---
JS BENAVIDES 12/17/22 1413: History of Present Illness HPI/Chief Complaint Nasir Jalloh is a 72 yo M with a pmh of COPD, asthma, avascular necrosis of the hips, bilateral hip replacements, myocardial infarction, pacemaker placement, among other chronic health conditions who arrived to [facility] ED on 12/16/22 with a chief complaint of shortness of breath and "pain in his right lung". He was ultimately admitted for COPD exacerbation and alcohol intoxication. Patient reports that he was upset with people yesterday which forced him in to an anxiety attack and he got short of breath. Also had pain in his right chest. He was last admitted on 12/09 for COPD exacerbation and diarrhea. He states that he has been admitted about 6 times since August. vice president client services has visited with him and he has apparently been having disagreements and being uncooperative with caregivers. He has been immobile for years due to his avasuclar necrosis and multiple hip surgeries. He wears 3L of O2 at home. Currently wearing 3.5 L with sats of 95%. Feels he is breathing fine. Patient reports Dr. Trevino has been in to see him and says he is fine. Fermin is in place. Denies pain or concerns at this time. Source: patient Exam Limitations: no limitations Date Seen 12/17/22 Time Seen by a Provider: 09:15 Attending Physician [facility] PCP Admitting Physician: Kirsten Bhandari DO Attending Physician: Kirsten Bhandari DO Referring Physician Date of Admission Dec 16, 2022 at 22:20 Home Medications & Allergies Home Medications Reviewed patient Home Medication Reconciliation performed by pharmacy medication reconciliations wildlife technician and/or nursing. Patients Allergies have been reviewed. Allergies Allergies Coded Allergies codeine (Verified Allergy, Mild, HIVES...TAKES OXYCODONE & MS CONTIN AT HOME, 03/11/19) streptokinase (Verified Allergy, Unknown, 03/11/19) Past Skqfjpa-Prqadv-Djxdvd Hx Patient Social History Marrital Status: single Employed/Student: retired Tobacco Use?: Yes Tobacco type used: Cigarettes Smoking Status: Former Smoker Smokeless Tobacco Frequency: Unknown if Ever Used Use of E-Cig and/or Vaping dev: No Substance use?: Yes Substance type: Opiates/Opioids Substance frequency: Daily Alcohol Use?: Yes Alcohol type: Beer Alcohol Frequency: Couple times a week Pt feels they are or have been: Unable to obtain Immunizations Up To Date Date of Influenza Vaccine: Dec 11, 2022 First/Initial COVID19 Vaccinat: x2 Tetanus Booster (TDap): More Than 5 Years Hepatitis A: No Hepatitis B: No PED Vaccines UTD: No Date of Pneumonia Vaccine: Jul 03, 2018 Seasonal Allergies Seasonal Allergies: No Current Status Advance Directives: Unable to obtain Communicates: Verbally Primary Language: Romanian Preferred Spoken Language: Romanian Is interpretation needed?: No Implanted or Applied Medical D: Orthopedic hardware, Pacemaker Past Medical History Surgeries: Abdominal, Appendectomy, Cardiac, Defibrillator, Joint Replacement, Orthopedic, Pacemaker Asthma, COPD Currently Using CPAP: No Currently Using BIPAP: No Atrial Fibrillation, Chronic Edema/Swelling, Coronary Artery Disease, Congenital Heart Disease, Heart Attack, Hypertension, Irregular Heartbeat Neuropathy Sexually Transmitted Disease: No HIV/AIDS: No Neurogenic Bladder Abdominal Hernia, Chronic Constipation Arthritis, Chronic Back Pain, Fractures Diabetes, Insulin dep Dysphagia Loss of Vision: Denies Hearing Impairment: Hard of Hearing Suicide Attempts, Depression Recent Skin Changes Blood Disorders: No Adverse Reaction/Blood Tranf: Yes (HIGH FEVER AND CHILLS) PMHx: avascular necrosis of multiple joints Asthma Chronic nonhealing hip wounds SurgHx: 11 bilateral hip surgeries, removal of hardware is nonambulatory 3 back surgeries Neck surgery Bilateral carpal tunnel release Bilateral cubital tunnel release Family Medical History COPD Diabetes mellitus No Pertinent Family Hx Adopted, unknown FH SOCIAL HISTORY: -SMOKED IN THE PAST, QUIT -ETOH--LONG HISTORY OF ABUSE -DRUGS--EXTENSIVE ABUSE OF RX DRUGS, ESPECIALLY OPIATES PAST SURGICAL HISTORY: -MULTIPLE FAILED BILATERAL HIP REPLACEMENTS, WITH EVENTUAL REMOVAL OF BOTH FEMORAL HEADS -CARDIAC CATH 08/26/[address] LOPEZ: CORONARY ANGIOGRAPHY: Coronary calcification is seen. Left main coronary artery is free of significant disease. Left anterior descending artery does not exhibit significant disease. Left circumflex artery has 30% to 40% mid vessel stenosis at the site of the origin of a large obtuse marginal branch. IFR across this lesion is 0.96. This indicates that the lesion is hemodynamically nonsignificant. Right coronary artery is codominant with the left circumflex artery. It does not exhibit significant disease. LEFT VENTRICULAR ANGIOGRAPHY: Left ventricular angiography was carried out in the right anterior oblique projection. Global left ventricular systolic function is normal. No regional wall motion abnormalities seen. Left ventricular ejection fraction is approximately 60%. CONCLUSIONS: 1. Mild to moderate coronary artery disease, nonobstructive. 2. Normal global left ventricular systolic function with ejection fraction approximately 60%. 3. Normal left ventricular end-diastolic pressure. DISCUSSION AND RECOMMENDATIONS: Based on results of the study, it appears appropriate to continue a conservative approach. Review of Systems Constitutional: No fever; malaise, weakness EENTM: hearing loss; No vision loss Respiratory: cough, dyspnea on exertion; No hemoptysis; short of breath (reports he is not SOB on his O2) Cardiovascular: chest pain (had chest pain yesterday); No palpitations Gastrointestinal: No abdominal pain; diarrhea; No nausea, No vomiting Genitourinary: No hematuria; other (catheter in place) Musculoskeletal: other (chronic pain in hips) Skin: other (petechiae bilateral forearms) Psychiatric/Neurological: Denies Headache; Weakness Physical Exam Physical Exam Vital Signs Vital Signs - First Documented 12/16/22 12/16/22 20:32 20:33 Temp 36.1 Pulse 69 Resp 32 B/P (MAP) 113/103 (106) Pulse Ox 95 O2 Delivery Nasal Cannula O2 Flow Rate 3.00 FiO2 95 Capillary Refill : Height, Weight, BMI Height: 5'8.00" Weight: 170lbs. 8.0oz. [id number]; 29.57 BMI Method:Stated General Appearance: No Apparent Distress, Anxious, Other (wearing nasal cannula ) Eyes: Bilateral Eye PERRL, Bilateral Eye EOMI HEENT: PERRL/EOMI Neck: Non Tender, Supple Respiratory: Chest Non Tender, Accessory Muscle Use, Decreased Breath Sounds, Wheezing (expiratory wheezing) Cardiovascular: Regular Rate, Rhythm, No Murmur, Normal Peripheral Pulses Gastrointestinal: Non Tender, Soft Rectal: Deferred Extremity: No Calf Tenderness Neurologic/Psychiatric: Alert Skin: Warm/Dry Results Results/Procedures Labs Laboratory Tests 12/16/22 21:00 12/17/22 04:23 Patient resulted labs reviewed. Assessment/Plan Admission Diagnosis Acute on Chronic Respiratory Failure with Hypercapnia Admission Status: Inpatient Order (span 2 midnights) Reason for Inpatient Admission: Acute on Chronic Respiratory Failure with Hypercapnia Assessment and Plan Acute on Chronic Respiratory Failure with Hypercapnia Acute COPD Exacerbation -oxygen therapy 3.5 L NC -albuterol, ipratropium, steroids -admin Cefepime -PT/OT evaluation for mobility Chest Pain with minimally elevated troponin -troponin was 0.091 on admit -EKG showed probable old NH with abnormal rhythm -Cardiology consulted -pacemaker in place -hx of NSTEMI Alcohol Intoxication, hx of alcoholism and polysubstance use -alcohol level on admit was 200 -admin Thiamine Likely Urinary Tract Infection -urines positve for Nitrites, negative for Leukocytes, trace Bacteria -urine cultures pending Elevated Lactic Acid -Lactic was 3.11 on admit -serology negative for flu or covid hx of Avascular Necrosis -pain managed with prn morphine, oxycodone hx chronic diarrhea Moving patient to Med-Surg floor Patient is adamantly refusing prison placement KIRSTEN BHANDARI DO 12/18/22 0520: Past Xyvcbam-Lmlkst-Crnbym Hx Family Medical History COPD Diabetes mellitus Supervisory-Addendum Brief Verification & Attestation Participated in pt care: history, MDM, physical Personally performed: exam, history, MDM, supervision of care Care discussed with: Medical Student Procedures: n/a Results interpretation: Verified all documentation Verification and Attestation of Medical Student E/M Service A medical student performed and documented this service in my presence. I reviewed and verified all information documented by the medical student and made modifications to such information, when appropriate. I personally performed the physical exam and medical decision making. Kirsten Bhandari, Dec 18, 2022,05:20 JS BENAVIDES Dec 17, 2022 14:13 KIRSTEN BHANDARI DO Dec 18, 2022 05:20
[2022-12-17] MEDS: BETHANECHOL 10 MG (URECHOLINE) TAB PO SCH (22:05)
[2022-12-17] MEDS: RANOLAZINE ER 500 MG TAB (RANEXA) PO SCH (22:06)
[2022-12-18] MEDS: RT-ALBUTEROL SULF 2.5 MG/3 ML PRE-MIX VIAL INH SCH ×4 (03:17→15:35)
[2022-12-18 03:39] VITALS: BP 149/80
[2022-12-18] MEDS: D5 1/2 NS W/KCL 20 MEQ/L 1,000 ML IV SCH ×2 (03:45→14:08)
[2022-12-18] MEDS: CATHETER FLUSH 10 ML SYR IVP SCH ×2 (03:45→14:07)
[2022-12-18] MEDS: methylPREDNISolone 125 MG (Solu-MEDROL) VIAL IVP SCH ×3 (03:45→16:23)
[2022-12-18 07:38] VITALS: BP 131/69
[2022-12-18] MEDS: ASPIRIN E.C. 81 MG (ECOTRIN) TAB PO SCH (08:38)
[2022-12-18] MEDS: RANOLAZINE ER 500 MG TAB (RANEXA) PO SCH (08:38)
[2022-12-18] MEDS: BETHANECHOL 10 MG (URECHOLINE) TAB PO SCH (08:38)
[2022-12-18] MEDS: GABAPENTIN 300 MG (NEURONTIN) CAP PO SCH ×2 (08:38→13:14)
[2022-12-18] MEDS: ENOXAPARIN 80 MG/0.8 ML (LOVENOX) SYR SC SCH (08:39)
[2022-12-18] MEDS ORDERED: PANTOPRAZOLE 40 MG (PROTONIX) TAB PO SCH (09:00)
[2022-12-18] MEDS ORDERED: ASPIRIN E.C. 81 MG (ECOTRIN) TAB PO SCH (09:00)
[2022-12-18] MEDS ORDERED: MONTELUKAST 10 MG (SINGULAIR) TAB PO SCH (09:00)
[2022-12-18] MEDS: THIAMINE INJECTION 100 MG, FOLIC ACID INJECTION 1 MG, MAGNESIUM SULFATE 2 GM, VITAMIN M... IV SCH ×5 (09:19)
[2022-12-18 09:29] LABS: BASOPHILS % (AUTO) 0 % (0-10); EOSINOPHILS % (AUTO) 0 % (0-10); HEMATOCRIT 32 % (40-54); HEMOGLOBIN 10.6 g/dL (13.3-17.7); LYMPHOCYTES # (AUTO) 0.5 10^3/uL (1.0-4.0); LYMPHOCYTES % (AUTO) 3 % (12-44); MEAN CORPUSCULAR HEMOGLOBIN 31 pg (25-34); MEAN CORPUSCULAR HGB CONC 33 g/dL (32-36); MEAN CORPUSCULAR VOLUME 94 fL (80-99); MEAN PLATELET VOLUME 10.8 fL (9.0-12.2); MONOCYTES # (AUTO) 0.7 10^3/uL (0.0-1.0); MONOCYTES % (AUTO) 4 % (0-12); NEUTROPHILS # (AUTO) 14.8 10^3/uL (1.8-7.8); NEUTROPHILS % (AUTO) 92 % (42-75); PLATELET COUNT 308 10^3/uL (130-400); WHITE BLOOD COUNT 16.1 10^3/uL (4.3-11.0)
[2022-12-18 09:46] LABS: ALBUMIN 2.9 GM/DL (3.2-4.5); POTASSIUM 4.7 MMOL/L (3.6-5.0)
[2022-12-18 09:47] LABS: LYMPHOCYTES % (MANUAL) 6 %; MONOCYTES % (MANUAL) 5 %; NEUTROPHILS % (MANUAL) 89 %; PLATELET ESTIMATE ADEQUATE; RBC MORPH NORMAL
[2022-12-18 09:48] LABS: CALCIUM 7.8 MG/DL (8.5-10.1); TOXIC GRANULATION/VACUOLAZATIO 1+
[2022-12-18 09:49] LABS: TOTAL PROTEIN 5.3 GM/DL (6.4-8.2)
[2022-12-18 09:51] LABS: BILIRUBIN,TOTAL 0.4 MG/DL (0.1-1.0)
[2022-12-18 09:52] LABS: CREATININE SERUM 1.06 MG/DL (0.60-1.30)
--- NOTE | 2022-12-18 10:45 | Cardiology Progress Note ---
Subjective Date Seen by Provider: Dec 18, 2022 Time Seen by Provider: 10:44 Subjective/Events-last exam Patient was seen at bedside, laying down in bed, complaining of left shoulder pain, unable to lift his arm. Review of Systems General: No Chills, No Night Sweats, No Fatigue, No Malaise, No Appetite, No Other HEENT: No Head Aches, No Visual Changes, No Eye Pain, No Ear Pain, No Dysphasia, No Sinus Congestion, No Post Nasal Drip, No Sore Throat, No Other Pulmonary: No Dyspnea, No Cough, No Pleuritic Chest Pain, No Other Cardiovascular: No: Chest Pain, Palpitations, Orthopnea, Paroxysmal Noc. Dyspnea, Edema, Lt Headedness, Other Focused Exam Lactate Level 12/16/22 21:58: Lactic Acid Level 3.11*H Objective-Cardiology Exam Last Set of Vital Signs Vital Signs 12/16/22 12/18/22 12/18/22 20:32 07:38 10:25 Temp 36.0 Pulse 67 Resp 18 B/P (MAP) 131/69 (89) Pulse Ox 93 O2 Delivery Nasal Cannula O2 Flow Rate 3.00 FiO2 95 I&O Intake and Output 12/18/22 00:00 Intake Total 1860 ml Output Total 2175 ml Balance -315 ml Intake Oral 860 ml IV Total 1000 ml Output Urine Total 2175 ml Daily Weight Change No General: Alert, Oriented X3, Cooperative HEENT: Atraumatic, PERRLA Neck: Supple, No JVD, No Thyromegaly Lungs: Clear to Auscultation, Normal Air Movement Heart: Regular Rate, Normal S1, Normal S2, No Murmurs Abdomen: Normal Bowel Sounds, Soft, No Tenderness, No Hepatosplenomegaly, No Masses Extremities: No Clubbing, No Cyanosis, No Edema, Normal Pulses, No Tenderness/Swelling Skin: No Rashes, No Breakdown, No Significant Lesion Neuro: Normal Speech, Other (Left shoulder weakness and pain) Psych/Mental Status: Mental Status NL, Mood NL Results Lab Laboratory Tests 12/18/22 09:20 A/P-Cardiology Admission Diagnosis Chest pain Non-ST elevation myocardial infarction Shortness of breath Alcohol intoxication Assessment/Plan Chest pain, minimal elevation in troponin Non-ST elevation myocardial infarction Probably secondary to small vessel disease. Known to have nonobstructive disease by cardiac catheterization in August 2022. Intolerant to nitroglycerin with headache Conservative management is recommended. No intervention or catheterization is recommended Left shoulder pain and weakness, unable to lift his arm, reporting losing strength in his left arm Recommend orthopedic evaluation Managed by primary care physician Shortness of breath, better today. Continue to monitor Alcohol intoxication, history of alcoholism and polysubstance abuse. Managed by medical team Dysuria, had history of recurrent UTI. Managed by primary care physician Coronary artery disease, cardiac catheterization carried out in 2012 and 2014 with diffuse atherosclerotic plaques. Nonobstructive disease. Cardiac catheterization was carried out by Dr. Houser on August 26, 2022 with nonobstructive coronary artery disease. iFR was done through the circumflex artery. Review of his cardiac catheterization film showed calcification in the left main and the proximal LAD with mild to moderate disease, 50% stenosis in the mid circumflex artery with IFR 0.97. Small vessel disease distally, dominant circumflex artery. 2D echo done on August 26, 2022 with normal LV size and function. Ejection fr action 55 to 60%, grade 2 diastolic dysfunction, biatrial enlargement, PA pressure 15 mmHg Hypertension, starting metoprolol ER 25 mg daily Patient has pacemaker Continue to monitor Hyperlipidemia, well controlled on current medication, continue to monitor History of dual-chamber pacemaker due to sinus node dysfunction, he has history of sinus pause for 3.2 second. Continue to monitor History of avascular necrosis of the hip, underwent multiple hip surgeries in the past and hip replacements. History of gastroesophageal reflux disease, COPD. Polysubstance use for pain control Previous history of tobaccoism Poor hygiene. SKYLA SQUIRES MD Dec 18, 2022 10:45
--- NOTE | 2022-12-18 11:38 | Occ Therapy Progress Note ---
Therapy Progress Note OT attempted to see patient for therapy, community living specialist visiting w/ patient about home services. Patient expected to DC home today, PT will monitor and follow with therapy while patient in hospital. OT to return later today as time allows YANCI QUEVEDO OT Dec 18, 2022 11:38
[2022-12-18 12:12] VITALS: BP 141/94
[2022-12-18] MEDS ORDERED: OXYC5TAB PO (12:38)
[2022-12-18] MEDS ORDERED: PRED10TA22 PO (12:38)
[2022-12-18] MEDS ORDERED: ATOR40TA PO (12:38)
--- NOTE | 2022-12-18 12:40 | D/C HH Face to Face Order ---
D/C Face to Face Orders Reconcile Patient Problems Problems Reviewed?: Yes Instructions for Patient Via [employer], Patient Instructions/FollowUp: PCP 1 week Physician to follow Patient: [facility] Discharge Diet for Home: No Restrictions Patient Problems: CHF CAD Patient Data-Allergies,Ht & Wt Patient Allergies: Coded Allergies: codeine (Verified Allergy, Mild, HIVES...TAKES OXYCODONE & MS CONTIN AT HOME, 03/11/19) streptokinase (Verified Allergy, Unknown, 03/11/19) Height (Feet): 5 Height (Inches): 8.00 Weight (Pounds): 170 Weight (Ounces): 8.0 Home Health Need/Face to Face Date of Face to Face: Dec 18, 2022 Clinical Findings: Generalized weakness and fatigue, Instability, Muscle weakness I have seen Pt [id number]: Yes Discharged To: Home Diagnosis/Conditions: Debility Patient is Homebound due to: Collins fall risk due to instabilty, Muscle weakness Homebound Status Due to the above stated illness, injury or surgical procedure (medical condition or diagnosis) and associated clinical findings, the patient is homebound because of his/her inability to leave home except with aid of a supportive device and/or person AND leaving the home requires a considerable and taxing effort or is medically contraindicated. Pt req the following assistanc: Wheelchair Home Health Nursing Orders Home Health Services Order: Nursing Services, Auto Driver-Evaluate & Treat, Physical Therapy-Evaluate & Treat Home Health Infusion Therapy Line Start Date: Dec 17, 2022 Certify Stmt I certify that this patient is under my care and that I, a nurse practitioner or a physician; a surgical assistant working with me, had a face to face encounter that - meets the physician face to face encounter requirements with this patient as dated. ZOHREH BHANDARI DO Dec 18, 2022 12:40
--- NOTE | 2022-12-18 12:40 | Discharge Summary ---
Discharge Summary Hospital Course Was the Problem List Reviewed?: Yes Problems/Dx: (1) NSTEMI (non-ST elevated myocardial infarction) Status: Acute (2) Non-compliance Status: Acute (3) COPD exacerbation Status: Acute Hospital Course Date of Admission: Dec 16, 2022 at 22:20 Admission Diagnosis : Family Physician/Provider: [facility] Date of Discharge: 12/18/22 Discharge Diagnosis: [ ] Hospital Course: Short course after admitted for AECOPD and minimal elevation in troponin. Dr Trevino consulted and no intervention required due to small vessel disease on recent cath. Overall he did well but insisted on DC home with HH. Patient DC in stable condition. Labs and Pending Lab Test: Laboratory Tests 12/18/22 09:20: White Blood Count 16.1H, Red Blood Count 3.44L, Hemoglobin 10.6L, Hematocrit 32L , Mean Corpuscular Volume 94, Mean Corpuscular Hemoglobin 31, Mean Corpuscular Hemoglobin Concent 33, Red Cell Distribution Width 14.6H, Platelet Count 308, Mean Platelet Volume 10.8, Immature Granulocyte % (Auto) 1, Neutrophils (%) (Auto) 92H, Lymphocytes (%) (Auto) 3L, Monocytes (%) (Auto) 4, Eosinophils (%) (Auto) 0, Basophils (%) (Auto) 0, Neutrophils # (Auto) 14.8H, Lymphocytes # (Auto) 0.5L, Monocytes # (Auto) 0.7, Eosinophils # (Auto) 0.0, Basophils # (Auto) 0.0, Immature Granulocyte # (Auto) 0.1, Neutrophils % (Manual) 89, Lymphocytes % (Manual) 6, Monocytes % (Manual) 5, Toxic Granulation 1+, Platelet Estimate ADEQUATE, Basophilic Stippling , Blood Morphology Comment NORMAL, Sodium Level 134L, Potassium Level 4.7, Chloride Level 101, Carbon Dioxide Level 25, Anion Gap 8, Blood Urea Nitrogen 26H, Creatinine 1.06, Estimat Glomerular Filtration Rate 75, BUN/Creatinine Ratio 25, Glucose Level 155H, Calcium Level 7.8L, Corrected Calcium 8.7, Total Bilirubin 0.4, Aspartate Amino Transf (AST/SGOT) 14, Alanine Aminotransferase (ALT/SGPT) 10, Alkaline Phosphatase 80, Total Protein 5.3L, Albumin 2.9L Microbiology 12/16/22 Urine Culture - Final, Complete NO GROWTH 12/16/22 Blood Culture - Preliminary, Resulted No growth Home Meds Active Lipitor (Atorvastatin Calcium) 40 Mg Tablet 40 Mg PO DAILY Prednisone 10 Mg Tab.ds.pk 10 Mg PO DAILY Take 6 tabs(60mg)daily,decrease by 1 tab(10mg)every other day. Oxycodone HCl 5 Mg Tablet 5 Mg PO Q4H PRN Reported Aspirin EC (Aspirin) 81 Mg Tablet.dr 81 Mg PO DAILY Urecholine (Bethanechol Chloride) 10 Mg Tablet 20 Mg PO BID TAKES 2 (10NG) TABS Ranolazine ER (Ranolazine) 500 Mg Tab.er.12h 500 Mg PO BID Metoprolol Succinate 25 Mg Tab.er.24h 25 Mg PO DAILY Montelukast Sodium 10 Mg Tablet 10 Mg PO DAILY Pantoprazole Sodium 40 Mg Tablet.dr 40 Mg PO DAILY Neurontin (Gabapentin) 300 Mg Capsule 300 Mg PO TID Ventolin Hfa (Albuterol Sulfate) 1 Puff Puff 2 Puff INH Q6H PRN Assessment/Pt Instructions PCP 1 week Discharge Planning: <30 minutes discharge planning Discharge Physical Examination Vital Signs Vital Signs Date Time Temp Pulse Resp B/P (MAP) Pulse Ox O2 Delivery O2 Flow Rate FiO2 12/18/22 12:12 36.1 71 18 141/94 (110) 99 Nasal Cannula 3.00 12/16/22 20:32 95 General Appearance: No Apparent Distress, WD/WN, Chronically ill Respiratory: Lungs Clear, Normal Breath Sounds Allergies: Coded Allergies: codeine (Verified Allergy, Mild, HIVES...TAKES OXYCODONE & MS CONTIN AT HOME, 03/11/19) streptokinase (Verified Allergy, Unknown, 03/11/19) Discharge Summary Date of Admission Dec 16, 2022 at 22:20 Date of Discharge Discharge Date: Dec 18, 2022 Admission Diagnosis Acute on Chronic Respiratory Failure with Hypercapnia ZOHREH BHANDARI DO Dec 18, 2022 12:40
== END 2022-12-18 16:44 | disposition home or self-care (01) ==
LOC: EDUNIT# 20:32 → ER 20:33 → INTOOBSV 22:20 → CSD 22:20 → 4TH 12-17 22:52
PROVIDERS: ADMIT Internal Medicine; ATTEND Internal Medicine
DX: J44.1 Chronic obstructive pulmonary disease with (acute) exacerbation (principal); I21.4 Non-ST elevation (NSTEMI) myocardial infarction; F10.129 Alcohol abuse with intoxication, unspecified; J96.22 Acute and chronic respiratory failure with hypercapnia; F19.90 Other psychoactive substance use, unspecified, uncomplicated; R74.02 Elevation of levels of lactic acid dehydrogenase [LDH]; R30.0 Dysuria; I25.10 Atherosclerotic heart disease of native coronary artery without angina pectoris; E78.5 Hyperlipidemia, unspecified; I10 Essential (primary) hypertension; I49.5 Sick sinus syndrome; Z87.39 Personal history of other diseases of the musculoskeletal system and connective tissue; Z91.199 Patient's noncompliance with other medical treatment and regimen due to unspecified reason; Z87.891 Personal history of nicotine dependence; Z96.649 Presence of unspecified artificial hip joint; Z72.821 Inadequate sleep hygiene
CPT/HCPCS: 36410; 36415; 36600; 71045; 76937; 80048; 80053; 80061; 80306; 80320; 81000; 82550; 82553; 82805; 83605; 83690; 83735; 83874; 83880; 84484; 85007; 85025; 85027; 85379; 85610; 85652; 85730; 86141; 87040; 87088; 87636; 93005; 94640; 94664; 96372; 96375; 96376

== ENCOUNTER 2022-12-21 02:02 | Observation (INO) | payer MEDICARE, MEDICAID ==
[2022-12-21] VITALS (7 sets, daily range): BP systolic 141–196; BP diastolic 65–118
[~2022-12-21] VITALS: Ht 162.5 cm; Wt 91.3 kg
[~2022-12-21 02:02] MED LIST changes: +ATOR40TA PO
[2022-12-21] MEDS ORDERED: morphine INJ 10 MG/ML 1ML (SYR OR VIAL) IVP STA (02:14)
[2022-12-21] MEDS ORDERED: RT-ALBUTEROL/IPRATROPIUM 3 ML (DUONEB) VIAL ONE (02:37)
[2022-12-21 02:55] LABS: BASOPHILS % (AUTO) 0 % (0-10); EOSINOPHILS # (AUTO) 0.2 10^3/uL (0.0-0.3); EOSINOPHILS % (AUTO) 1 % (0-10); HEMATOCRIT 37 % (40-54); HEMOGLOBIN 12.3 g/dL (13.3-17.7); LYMPHOCYTES # (AUTO) 2.4 10^3/uL (1.0-4.0); LYMPHOCYTES % (AUTO) 15 % (12-44); MEAN CORPUSCULAR HEMOGLOBIN 31 pg (25-34); MEAN CORPUSCULAR HGB CONC 34 g/dL (32-36); MEAN CORPUSCULAR VOLUME 93 fL (80-99); MEAN PLATELET VOLUME 10.5 fL (9.0-12.2); MONOCYTES # (AUTO) 1.1 10^3/uL (0.0-1.0); MONOCYTES % (AUTO) 7 % (0-12); NEUTROPHILS # (AUTO) 11.6 10^3/uL (1.8-7.8); NEUTROPHILS % (AUTO) 76 % (42-75); PLATELET COUNT 352 10^3/uL (130-400); WHITE BLOOD COUNT 15.4 10^3/uL (4.3-11.0)
[2022-12-21 03:06] LABS: ALBUMIN 3.1 GM/DL (3.2-4.5); CHLORIDE 103 MMOL/L (98-107); POTASSIUM 4.2 MMOL/L (3.6-5.0); SODIUM 140 MMOL/L (135-145)
[2022-12-21 03:07] LABS: CALCIUM 8.7 MG/DL (8.5-10.1)
[2022-12-21 03:08] LABS: GLUCOSE 102 MG/DL (70-105); TOTAL PROTEIN 5.7 GM/DL (6.4-8.2)
[2022-12-21 03:09] LABS: CARBON DIOXIDE 26 MMOL/L (21-32)
[2022-12-21 03:10] LABS: BILIRUBIN,TOTAL 0.9 MG/DL (0.1-1.0)
[2022-12-21 03:12] LABS: ALKALINE PHOSPHATASE 96 U/L (40-136); CREATININE SERUM 0.78 MG/DL (0.60-1.30); GFR ESTIMATED 96
[2022-12-21 03:13] LABS: BUN/CREATININE RATIO 22
[2022-12-21 03:15] LABS: ALANINE AMINOTRANSFERASE 34 U/L (0-55)
[2022-12-21 03:24] LABS: BILIRUBIN,URINE NEGATIVE (NEGATIVE); CLARITY,URINE SL CLOUDY; COLOR,URINE YELLOW; GLUCOSE, URINE (UA) NEGATIVE (NEGATIVE); KETONES,URINE NEGATIVE (NEGATIVE); LEUKOCYTE ESTERASE ,URINE NEGATIVE (NEGATIVE); NITRITE,URINE NEGATIVE (NEGATIVE); PH,URINE 7.5 (5-9); PROTEIN,URINE NEGATIVE (NEGATIVE)
[2022-12-21 03:33] LABS: BACTERIA,URINE LARGE /HPF; HYALINE CASTS, URINE 0-2 /LPF; SQUAMOUS EPITHELIAL CELL,UR 0-2 /HPF
[2022-12-21 03:42] LABS: LYMPHOCYTES % (MANUAL) 17 %; MONOCYTES % (MANUAL) 6 %; NEUTROPHILS % (MANUAL) 77 %; RBC MORPH NORMAL
[2022-12-21] MEDS ORDERED: cefTRIAXone 1 GM PRE-MIX 50 ML IV STA (03:56)
[2022-12-21] MEDS ORDERED: FUROSEMIDE 40 MG/4 ML INJ (LASIX) IVP ONE (04:00)
[2022-12-21] MEDS ORDERED: KCL 10 MEQ TAB (MICRO K) PO ONE (04:00)
--- NOTE | 2022-12-21 04:02 | ED General ---
General Chief Complaint: General Problems/Pain Stated Complaint: HIP PAIN Nursing Triage Note: TO ED VIA [facility] FROM HOME TO ROOM 6 WITH C/O HIP PAIN AND SOA. PT GIVEN DUONEB EN ROUTE VIA EMS. PT IS EXTREMELY DIFFICULT IV STICK, THUS NO IV ACCESS BY EMS ON ARRIVAL TO ER. PT BP 200s/100s AND EMS DID PLACE NITRO PASTE TO PT. PT IS INCONTINENT OF URINE AND SWEATPANTS ARE VISIBLY SATURATED. O2 AT 4L VIA NC. PT WAS RECENTLY DC'D FROM THIS FACILITY ON 12/18/22. Source of Information: Patient, Old Records Exam Limitations: No Limitations History of Present Illness Date Seen by Provider: Dec 21, 2022 Time Seen by Provider: 02:04 Initial Comments This 72-year-old male presents to the emergency room via EMS with complaints of shortness of breath, incontinence of bowel and stool, and uncontrolled chronic hip pain. None of these problems are really new. Patient was recently discharged from the hospital on December 18. He is receiving home health 5 days a week for 12 hours a day. However, it is apparent this is not sufficient as he is completely soaked with urine and unable to care for himself. He has not yet picked up his medications from discharge from the hospital. He is stable on 4 L nasal cannula but is very tight with wheezing. He is afebrile. Dr. Cardona is his primary care provider. He is noted to be quite hypertensive upon arrival and EMS applied Nitropaste. Patient was noted to have heart failure on heart cath last fall. He may be experiencing a combination of COPD exacerbation and heart failure. Patient was intoxicated when admitted last time, but he denies any alcohol consumption for the past couple of days. Patient denies any chest pain today. Allergies and Home Medications Allergies Coded Allergies: codeine (Verified Allergy, Mild, HIVES...TAKES OXYCODONE & MS CONTIN AT HOME, 03/11/19) streptokinase (Verified Allergy, Unknown, 03/11/19) Patient Home Medication List Home Medication List Reviewed: Yes Albuterol Sulfate (Ventolin Hfa) 1 Puff Puff, 2 PUFF INH Q6H PRN for SHORTNESS OF BREATH, (Reported) Entered as Reported by: KARINA RAPHAEL on 08/06/20 1606 Aspirin (Aspirin EC) 81 Mg Tablet., 81 MG PO DAILY, (Reported) Entered as Reported by: KARINA RAPHAEL on 12/10/22 1010 Atorvastatin Calcium (Lipitor) 40 Mg Tablet, 40 MG PO DAILY Prescribed by: ZOHREH BHANDARI on 12/18/22 1238 Bethanechol Chloride (Urecholine) 10 Mg Tablet, 20 MG PO BID, (Reported) Entered as Reported by: KARINA RAPHAEL on 12/10/22 1010 Gabapentin (Neurontin) 300 Mg Capsule, 300 MG PO TID, (Reported) Entered as Reported by: KARINA RAPHAEL on 08/01/22 1517 Metoprolol Succinate (Metoprolol Succinate) 25 Mg Tab.er.24h, 25 MG PO DAILY, (Reported) Entered as Reported by: KARINA RAPHAEL on 12/10/22 1010 Montelukast Sodium (Montelukast Sodium) 10 Mg Tablet, 10 MG PO DAILY, (Reported) Entered as Reported by: KARINA RAPHAEL on 12/10/22 1010 Oxycodone HCl (Oxycodone HCl) 5 Mg Tablet, 5 MG PO Q4H PRN for PAIN-SEVERE (8- 10) Prescribed by: ZOHREH BHANDARI on 12/18/22 1239 Pantoprazole Sodium (Pantoprazole Sodium) 40 Mg Tablet.dr, 40 MG PO DAILY, (Reported) Entered as Reported by: KARINA RAPHAEL on 12/10/22 1010 Prednisone (Prednisone) 10 Mg Tab.ds.pk, 10 MG PO DAILY Prescribed by: ZOHREH BHANDARI on 12/18/22 1238 Ranolazine (Ranolazine ER) 500 Mg Tab.er.12h, 500 MG PO BID, (Reported) Entered as Reported by: KARINA RAPHAEL on 12/10/22 1010 Discontinued Medications L.acidoph & Paracasei,B.lactis (Probiotic) 10 Billion Cell Capsule, 1 EACH PO BID Discontinued Reason: No Longer Taking Prescribed by: BRYANNA VALENTIN on 12/12/22 1114 Nitroglycerin (Nitroglycerin) 0.4 Mg Tab.subl, 0.4 MG SL UD PRN for CHEST PAIN (ANGINA), (Reported) Discontinued Reason: No Longer Taking Entered as Reported by: CHAVA HERRERA on 11/24/22 0838 Review of Systems Review of Systems Constitutional: see HPI EENTM: no symptoms reported Respiratory: see HPI Cardiovascular: see HPI Gastrointestinal: see HPI Genitourinary: see HPI Musculoskeletal: no symptoms reported Skin: no symptoms reported Psychiatric/Neurological: No Symptoms Reported Hematologic/Lymphatic: No Symptoms Reported Past Enqsthq-Bvjvoa-Jauoin Hx Patient Social History Tobacco Use?: No Smoking Status: Former Smoker Additional substance use comme: PAST HX Alcohol Use?: Yes Alcohol Frequency: Once in a while Immunizations Up To Date Tetanus Booster (TDap): Less than 5yrs PED Vaccines UTD: No Influenza Vaccine Up-to-Date: No; Not Current First/Initial COVID19 Vaccinat: x2 Seasonal Allergies Seasonal Allergies: No Past Medical History Surgery/Hospitalization HX: bilateral hip replacement/removal, cardiac cath, appendectomy, chronic pain, mi, cad, htn, constipation, non-compliance Surgeries: Yes (BILAT HIP REPLACEMENTS X 22; WOUND DEBRIDEMENTS) Abdominal, Appendectomy, Cardiac, Defibrillator, Joint Replacement, Orthopedic, Pacemaker Respiratory: Yes Asthma, COPD Currently Using CPAP: No Currently Using BIPAP: No Cardiac: Yes (PACEMAKER, CARDIAC ARREST, SELF - REPORTED DC X 8; CHF) Atrial Fibrillation, Chronic Edema/Swelling, Coronary Artery Disease, Congenital Heart Disease, Heart Attack, Hypertension, Irregular Heartbeat Neurological: Yes Neuropathy Reproductive Disorders: No Sexually Transmitted Disease: No HIV/AIDS: No Genitourinary: Yes Neurogenic Bladder Gastrointestinal: Yes Abdominal Hernia, Chronic Constipation Musculoskeletal: Yes (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;CHRONIC PAIN) Arthritis, Chronic Back Pain, Fractures Endocrine: Yes Diabetes, Insulin dep HEENT: Yes Dysphagia Loss of Vision: Denies Hearing Impairment: Hard of Hearing Cancer: No Psychosocial: Yes Suicide Attempts, Depression Integumentary: Yes (recurrent wound issues) Recent Skin Changes Blood Disorders: No Adverse Reaction/Blood Tranf: Yes (HIGH FEVER AND CHILLS) Family Medical History COPD Diabetes mellitus No Pertinent Family Hx Adopted, unknown FH SOCIAL HISTORY: -SMOKED IN THE PAST, QUIT -ETOH--LONG HISTORY OF ABUSE -DRUGS--EXTENSIVE ABUSE OF RX DRUGS, ESPECIALLY OPIATES PAST SURGICAL HISTORY: -MULTIPLE FAILED BILATERAL HIP REPLACEMENTS, WITH EVENTUAL REMOVAL OF BOTH FEMORAL HEADS -CARDIAC CATH 08/26/[address] LOPEZ: CORONARY ANGIOGRAPHY: Coronary calcification is seen. Left main coronary artery is free of significant disease. Left anterior descending artery does not exhibit significant disease. Left circumflex artery has 30% to 40% mid vessel stenosis at the site of the origin of a large obtuse marginal branch. IFR across this lesion is 0.96. This indicates that the lesion is hemodynamically nonsignificant. Right coronary artery is codominant with the left circumflex artery. It does not exhibit significant disease. LEFT VENTRICULAR ANGIOGRAPHY: Left ventricular angiography was carried out in the right anterior oblique projection. Global left ventricular systolic function is normal. No regional wall motion abnormalities seen. Left ventricular ejection fraction is approximately 60%. CONCLUSIONS: 1. Mild to moderate coronary artery disease, nonobstructive. 2. Normal global left ventricular systolic function with ejection fraction approximately 60%. 3. Normal left ventricular end-diastolic pressure. DISCUSSION AND RECOMMENDATIONS: Based on results of the study, it appears appropriate to continue a conservative approach. Physical Exam Vital Signs Vital Signs - First Documented 12/21/22 02:03 Temp 36.9 Pulse 93 Resp 22 B/P (MAP) 196/118 (144) Capillary Refill : Less Than 3 Seconds Height, Weight, BMI Height: 5'8.00" Weight: 170lbs. 8.0oz. 77.956276it; 30.71 BMI Method:Stated General Appearance: No Apparent Distress, WD/WN, Other (Thoroughly soaked in foul-smelling urine) HEENT: PERRL/EOMI, Normal ENT Inspection Neck: Normal Inspection; No JVD Respiratory: No Accessory Muscle Use, No Respiratory Distress; No Crackles; Wheezing (Tight wheezing throughout) Cardiovascular: Regular Rate, Rhythm, No Murmur Gastrointestinal: Non Tender, Soft Extremity: Swelling Neurologic/Psychiatric: Alert, Oriented x3, No Motor/Sensory Deficits, Normal Mood/Affect Skin: Normal Color, Warm/Dry Focused Exam Lactate Level 12/21/22 02:44: Lactic Acid Level 0.68 Lactic Acid Level Laboratory Tests Test 12/21/22 02:44 Lactic Acid Level 0.68 MMOL/L (0.50-2.00) Progress/Results/Core Measures Suspected Sepsis SIRS Temperature: Pulse: 93 Respiratory Rate: 22 Laboratory Tests 12/21/22 02:44: White Blood Count 15.4H Blood Pressure 196 /118 Mean: 144 12/21/22 02:44: Lactic Acid Level 0.68 Laboratory Tests 12/21/22 02:44: Creatinine 0.78, INR Comment 0.9, Platelet Count 352, Total Bilirubin 0.9 Results/Orders Lab Results Laboratory Tests Test 12/21/22 02:44 12/21/22 03:15 Range/Units White Blood Count 15.4 H 4.3-11.0 10^3/uL Red Blood Count 3.92 L 4.30-5.52 10^6/uL Hemoglobin 12.3 L 13.3-17.7 g/dL Hematocrit 37 L 40-54 % Mean Corpuscular Volume 93 80-99 fL Mean Corpuscular Hemoglobin 31 25-34 pg Mean Corpuscular Hemoglobin Concent 34 32-36 g/dL Red Cell Distribution Width 14.6 H 10.0-14.5 % Platelet Count 352 130-400 10^3/uL Mean Platelet Volume 10.5 9.0-12.2 fL Immature Granulocyte % (Auto) 1 % Neutrophils (%) (Auto) 76 H 42-75 % Lymphocytes (%) (Auto) 15 12-44 % Monocytes (%) (Auto) 7 0-12 % Eosinophils (%) (Auto) 1 0-10 % Basophils (%) (Auto) 0 0-10 % Neutrophils # (Auto) 11.6 H 1.8-7.8 10^3/uL Lymphocytes # (Auto) 2.4 1.0-4.0 10^3/uL Monocytes # (Auto) 1.1 H 0.0-1.0 10^3/uL Eosinophils # (Auto) 0.2 0.0-0.3 10^3/uL Basophils # (Auto) 0.0 0.0-0.1 10^3/uL Immature Granulocyte # (Auto) 0.1 0.0-0.1 10^3/uL Neutrophils % (Manual) 77 % Lymphocytes % (Manual) 17 % Monocytes % (Manual) 6 % Blood Morphology Comment NORMAL Prothrombin Time 12.9 12.2-14.7 SEC INR Comment 0.9 0.8-1.4 Activated Partial Thromboplast Time 25 24-35 SEC Sodium Level 140 135-145 MMOL/L Potassium Level 4.2 3.6-5.0 MMOL/L Chloride Level 103 98-107 MMOL/L Carbon Dioxide Level 26 21-32 MMOL/L Anion Gap 11 5-14 MMOL/L Blood Urea Nitrogen 17 7-18 MG/DL Creatinine 0.78 0.60-1.30 MG/DL Estimat Glomerular Filtration Rate 96 BUN/Creatinine Ratio 22 Glucose Level 102 70-105 MG/DL Lactic Acid Level 0.68 0.50-2.00 MMOL/L Calcium Level 8.7 8.5-10.1 MG/DL Corrected Calcium 9.4 8.5-10.1 MG/DL Total Bilirubin 0.9 0.1-1.0 MG/DL Aspartate Amino Transf (AST/SGOT) 29 5-34 U/L Alanine Aminotransferase (ALT/SGPT) 34 0-55 U/L Alkaline Phosphatase 96 40-136 U/L C-Reactive Protein High Sensitivity 1.28 H 0.00-0.50 MG/DL B-Type Natriuretic Peptide 766.2 H <100.0 PG/ML Total Protein 5.7 L 6.4-8.2 GM/DL Albumin 3.1 L 3.2-4.5 GM/DL Serum Alcohol < 10 <10 MG/DL Urine Color YELLOW Urine Clarity SL CLOUDY Urine pH 7.5 5-9 Urine Specific [place] 1.015 L 1.016-1.022 Urine Protein NEGATIVE NEGATIVE Urine Glucose (UA) NEGATIVE NEGATIVE Urine Ketones NEGATIVE NEGATIVE Urine Nitrite NEGATIVE NEGATIVE Urine Bilirubin NEGATIVE NEGATIVE Urine Urobilinogen 1.0 < = 1.0 MG/DL Urine Leukocyte Esterase NEGATIVE NEGATIVE Urine RBC (Auto) NEGATIVE NEGATIVE Urine RBC NONE /HPF Urine WBC 2-5 /HPF Urine Squamous Epithelial Cells 0-2 /HPF Urine Crystals NONE /LPF Urine Bacteria LARGE H /HPF Urine Casts PRESENT /LPF Urine Hyaline Casts 0-2 H /LPF Urine Mucus NEGATIVE /LPF Urine Culture Indicated YES Micro Results Microbiology 12/21/22 Blood Culture - Preliminary, Resulted Gram Negative Bacillus 1 See Comments 12/21/22 Urine Culture - Preliminary, Resulted Gram Negative Bacillus 1 My Orders Orders - LUMA WADE MD Bnp Ward (12/21/22 02:14) Cbc With Automated Diff (12/21/22 02:14) Comprehensive Metabolic Panel (12/21/22 02:14) Ua Culture If Indicated (12/21/22 02:14) Ed Iv/Invasive Line Start (12/21/22 02:14) Chest 1 View, Ap/Pa Only (12/21/22 02:14) Morphine Injection (Morphine Injection (12/21/22 02:14) Fermin Cath (12/21/22 02:16) Alcohol (12/21/22 02:18) Albuterol/Ipra Inhalation Soln (Duoneb I (12/21/22 02:37) Manual Differential (12/21/22 02:44) Hs C Reactive Protein (12/21/22 03:28) Urine Culture (12/21/22 03:15) Blood Culture (12/21/22 03:56) Sputum Culture (12/21/22 03:56) Protime With Inr (12/21/22 03:56) Partial Thromboplastin Time (12/21/22 03:56) Vital Signs Adult Sepsis Patie Q15M (12/21/22 03:56) O2 (12/21/22 03:56) Remove Rings In Anticipation O (12/21/22 03:56) Lactic Acid Analyzer (12/21/22 03:56) Ceftriaxone 1 Gm Pre-Mix (Rocephin 1 Gm (12/21/22 03:56) Furosemide Injection (Lasix Injection) (12/21/22 04:00) Potassium Chloride (Tablet) (Klor Con Ta (12/21/22 04:00) Methylprednisolone Sod Succ (Solu-Medrol (12/21/22 04:15) Medications Given in ED Vital Signs/I&O 12/21/22 12/21/22 12/21/22 12/21/22 02:03 02:03 02:03 03:02 Temp 36.9 Pulse 93 Resp 22 B/P (MAP) 196/118 (144) Pulse Ox 98 98 94 O2 Delivery Nasal Cannula Nasal Cannula Nasal Cannula Nasal Cannula O2 Flow Rate 4.00 4.00 4.00 4.00 12/21/22 04:41 Temp 36.9 Pulse 90 Resp 20 B/P (MAP) 181/95 Pulse Ox 99 O2 Delivery Nasal Cannula O2 Flow Rate 4.00 Capillary Refill : Less Than 3 Seconds Blood Pressure Mean: 144 Progress Note : Progress Note Patient remains hypertensive with nitroglycerin in place. Chest x-ray was suggestive of patchy infiltrates versus edema. BNP is elevated from prior. However, CRP is not significantly elevated. This would suggest more of a CHF exacerbation and COPD exacerbation rather than pneumonia. Lasix 20 mg IV and potassium 20 mEq orally have been added to his treatment in the ER. Fermin catheter was placed and UTI was noted. Rocephin was ordered for initial antibiotic therapy. His prior urine cultures were reviewed. The most recent positive culture was Proteus sensitive to ceftriaxone. DuoNeb had been administered in route by EMS. A second DuoNeb was administered in the ER. He was still wheezy after the second DuoNeb. A dose of Solu-Medrol is being administered. Labs were reviewed including CBC, CMP, BNP, CRP, and urinalysis. Chest x-ray was also reviewed and compared with prior. Radiologist interpretation of the x-ray was not available. I discussed CODE STATUS with the patient and he elects to remain full code. Morphine was given for pain control. Diagnostic Imaging Diagonstic Imaging: Xray Plain Films/CT/US/NM/MRI: chest Comments Chest x-ray was interpreted by me, and radiologist report is not yet available. New patchy infiltrates bilaterally when compared with prior. These may represent pneumonia versus developing edema from heart failure. Departure Communication (Admissions) Time/Spoke to Admitting Phy: 04:10 Dr. Bhandari Impression Primary Impression: COPD exacerbation Additional Impressions: CHF exacerbation Qualified Codes: I50.33 - Acute on chronic diastolic (congestive) heart iram lure Urinary tract infection Qualified Codes: N39.0 - Urinary tract infection, site not specified Unable to care for self Disposition: ADMITTED INPATIENT Condition: Stable Admissions Decision to Admit Reason: Admit from ER (General) Decision to Admit/Date: Dec 21, 2022 Time/Decision to Admit Time: 04:10 Departure-Patient Inst. Referrals: [facility] (PCP/Family) Primary Care Physician Copy Copies To 1: [facility]/LUMA GRAHAM MD Dec 21, 2022 04:02
[2022-12-21] MEDS ORDERED: methylPREDNISolone 125 MG (Solu-MEDROL) VIAL IVP ONE (04:15)
[2022-12-21] MEDS ORDERED: morphine INJ 4 MG/ML 1 ML (VIAL/SYRINGE) IV PRN (05:45)
[2022-12-21] MEDS ORDERED: ONDANSETRON 4 MG/2 ML (SDV) Z0FRAN IV PRN ×2 (05:45→12:30)
[2022-12-21] MEDS: NITROGLYCERIN 2% OINT 1 GM UNIT DOSE PACKET TOP SCH ×2 (06:06→13:26)
[2022-12-21] MEDS: CATHETER FLUSH 10 ML SYR IVP SCH ×3 (06:07→19:50)
--- NOTE | 2022-12-21 06:19 | History & Physical-Hospitalist ---
History of Present Illness HPI/Chief Complaint CC: Dyspnea with elevated BP HPI: This is a 72yoWM clinic patient of [facility] who is very debilitated and wheelchair bound and refuses to go to a long-term who is in and out of the hospital twice per week who presented to the ER from home with elevated BP and dyspnea and found to have AECOPD and CHF and HTN. This morning he is improved but still weak. Patient appears to be declined more each time he is admitted. Source: patient, RN/MD, old records Exam Limitations: no limitations Date Seen 12/21/22 Time Seen by a Provider: 12:00 Attending Physician [place] PCP Admitting Physician: Kirsten Sanz DO Attending Physician: Kirsten Sanz DO Referring Physician Date of Admission Dec 21, 2022 at 04:53 Home Medications & Allergies Home Medications Reviewed patient Home Medication Reconciliation performed by pharmacy medication reconciliations renal dialysis technician and/or nursing. Patients Allergies have been reviewed. Allergies Allergies Coded Allergies codeine (Verified Allergy, Mild, HIVES...TAKES OXYCODONE & MS CONTIN AT HOME, 03/11/19) streptokinase (Verified Allergy, Unknown, 03/11/19) Past Ojfqmgh-Rgqszm-Tervdo Hx Patient Social History Marrital Status: single Employed/Student: unemployed, retired Tobacco Use?: No Smoking Status: Former Smoker Smokeless Tobacco Frequency: Never a User Use of E-Cig and/or Vaping dev: No Substance use?: No Additional substance use comme: PAST HX Alcohol Use?: No Alcohol Frequency: Once in a while Additional Alcohol Comments: LONG HX ETOH ABUSE BUT PT STATES 12/21/22 "NOT MUCH OF A DRINKER" Pt feels they are or have been: No Immunizations Up To Date Date of Influenza Vaccine: Dec 11, 2022 First/Initial COVID19 Vaccinat: x2 Tetanus Booster (TDap): More Than 5 Years Hepatitis A: No Hepatitis B: No PED Vaccines UTD: No Date of Pneumonia Vaccine: Jul 03, 2018 Seasonal Allergies Seasonal Allergies: No Current Status Advance Directives: Yes Advance Directive Location: Copy from prev record Communicates: Verbally Primary Language: Cambodian Preferred Spoken Language: Cambodian Is interpretation needed?: No Implanted or Applied Medical D: Pacemaker Past Medical History Surgeries: Abdominal, Appendectomy, Cardiac, Defibrillator, Joint Replacement, Orthopedic, Pacemaker Asthma, COPD Currently Using CPAP: No Currently Using BIPAP: No Atrial Fibrillation, Chronic Edema/Swelling, Coronary Artery Disease, Congenital Heart Disease, Heart Attack, Hypertension, Irregular Heartbeat Neuropathy Sexually Transmitted Disease: No HIV/AIDS: No Neurogenic Bladder Abdominal Hernia, Chronic Constipation Arthritis, Chronic Back Pain, Fractures Diabetes, Insulin dep Dysphagia Loss of Vision: Denies Hearing Impairment: Hard of Hearing Suicide Attempts, Depression Recent Skin Changes Blood Disorders: No Adverse Reaction/Blood Tranf: Yes (HIGH FEVER AND CHILLS) PMHx: avascular necrosis of multiple joints Asthma Chronic nonhealing hip wounds SurgHx: 11 bilateral hip surgeries, removal of hardware is nonambulatory 3 back surgeries Neck surgery Bilateral carpal tunnel release Bilateral cubital tunnel release Family Medical History COPD Diabetes mellitus No Pertinent Family Hx Adopted, unknown FH SOCIAL HISTORY: -SMOKED IN THE PAST, QUIT -ETOH--LONG HISTORY OF ABUSE -DRUGS--EXTENSIVE ABUSE OF RX DRUGS, ESPECIALLY OPIATES PAST SURGICAL HISTORY: -MULTIPLE FAILED BILATERAL HIP REPLACEMENTS, WITH EVENTUAL REMOVAL OF BOTH FEMORAL HEADS -CARDIAC CATH 08/26/[address] LOPEZ: CORONARY ANGIOGRAPHY: Coronary calcification is seen. Left main coronary artery is free of significant disease. Left anterior descending artery does not exhibit significant disease. Left circumflex artery has 30% to 40% mid vessel stenosis at the site of the origin of a large obtuse marginal branch. IFR across this lesion is 0.96. This indicates that the lesion is hemodynamically nonsignificant. Right coronary artery is codominant with the left circumflex artery. It does not exhibit significant disease. LEFT VENTRICULAR ANGIOGRAPHY: Left ventricular angiography was carried out in the right anterior oblique projection. Global left ventricular systolic function is normal. No regional wall motion abnormalities seen. Left ventricular ejection fraction is approximately 60%. CONCLUSIONS: 1. Mild to moderate coronary artery disease, nonobstructive. 2. Normal global left ventricular systolic function with ejection fraction approximately 60%. 3. Normal left ventricular end-diastolic pressure. DISCUSSION AND RECOMMENDATIONS: Based on results of the study, it appears appropriate to continue a conservative approach. Review of Systems Constitutional: see HPI, malaise, weakness Respiratory: dyspnea on exertion, short of breath Physical Exam Physical Exam Vital Signs Vital Signs - First Documented 12/21/22 12/21/22 02:03 20:00 Temp 36.9 Pulse 93 Resp 22 B/P (MAP) 196/118 (144) FiO2 44 Capillary Refill : Less Than 3 Seconds Height, Weight, BMI Height: 5'8.00" Weight: 170lbs. 8.0oz. 77.804012tz; 34.68 BMI Method:Stated General Appearance: No Apparent Distress, Chronically ill Respiratory: No Accessory Muscle Use, No Respiratory Distress, Decreased Breath Sounds Cardiovascular: Regular Rate, Rhythm, No Edema, No Gallop, No JVD, No Murmur, Normal Peripheral Pulses Neurologic/Psychiatric: Alert, Oriented x3, No Motor/Sensory Deficits, Normal Mood/Affect Results Results/Procedures Labs Laboratory Tests 12/21/22 02:44 Patient resulted labs reviewed. Assessment/Plan Admission Diagnosis Assessment: Acute on chronic CHF CAD small vessel disease COPD with exacerbation HTN HLP Former smoker Plan: IV abx O2 Monitor closely Admission Status: Inpatient Order (span 2 midnights) Reason for Inpatient Admission: AECHF with hypoxia Diagnosis/Problems Diagnosis/Problems (1) CHF (congestive heart failure) Status: Acute (2) COPD exacerbation (3) Unable to care for self Status: Chronic KIRSTEN SANZ DO Dec 21, 2022 06:19
--- NOTE | 2022-12-21 06:24 | Diagnostic Imaging Report ---
INDICATION: Shortness of air. Compared 12/16/2022 FINDINGS: The heart size is mildly enlarged. There is prominence of the pulmonary vascularity. There is interstitial densities likely mild interstitial type edema and there is an at least small left pleural effusion. Right lower lobe expansion improved from the prior. IMPRESSION: Reduction in right basilar atelectasis, however, increased vascular congestion and probable mild interstitial edema with a tiny left effusion. Dictated by: Dictated on workstation # [id number]
[2022-12-21 07:37] LABS: INR 0.9 (0.8-1.4); PROTHROMBIN TIME PATIENT 12.9 SEC (12.2-14.7)
[2022-12-21] MEDS: oxyCODONE/APAP 5/325MG (PERCOCET 5) TABLET PO PRN ×3 (09:13→19:45)
[2022-12-21] MEDS: GABAPENTIN 300 MG (NEURONTIN) CAP PO SCH ×3 (09:13→19:45)
[2022-12-21] MEDS ORDERED: MILK OF MAGNESIA 400 MG/5 ML 30 ML UDC PO PRN (12:30)
[2022-12-21] MEDS ORDERED: CALCIUM CARBONATE 500 MG (TUMS) TAB.CHEW PO PRN (12:30)
[2022-12-21] MEDS ORDERED: MELATONIN 3 MG TABLET PO PRN (12:30)
[2022-12-21] MEDS ORDERED: ACETAMINOPHEN 325 MG TABLET PO PRN (12:30)
[2022-12-21] MEDS ORDERED: ANTACID SUSP 30 ML UDC (MYLANTA) PO PRN (12:30)
[2022-12-21] MEDS ORDERED: diphenhydrAMINE 25 MG TAB (BENADRYL) PO PRN (12:30)
[2022-12-21] MEDS ORDERED: BISACODYL 10 MG SUPP (DULCOLAX) PR PRN (12:30)
[2022-12-21] MEDS ORDERED: polyethylene glycoL POWDER 17 GM (MIRALAX) PACK PO PRN (12:30)
[2022-12-21] MEDS ORDERED: ONDANSETRON 4 MG (ZOFRAN) ORAL DISSOLVE TAB PO PRN (12:30)
[2022-12-21] MEDS ORDERED: diphenhydrAMINE 50 MG/ML INJ (BENADRYL) IVP PRN (12:30)
[2022-12-21] MEDS ORDERED: LACTULOSE SYRUP 10GM/15ML (ENULOSE) 30ML UDC PO PRN (12:30)
[2022-12-21] MEDS: ENOXAPARIN 40 MG/0.4 ML (LOVENOX) SYR SC SCH (13:26)
[2022-12-21] MEDS ORDERED: RT-ALBUTEROL/IPRATROPIUM 3 ML (DUONEB) VIAL INH SCH (14:00)
--- NOTE | 2022-12-21 14:31 | Consultation-Cardiology ---
HPI-Cardiology Cardiology Consultation: Date of Consultation 12/21/22 Time Seen by a Provider: 13:50 Date of Admission Attending Physician [place] Admitting Physician Admitting Physician: Kirsten Bhandari DO Attending Physician: Kirsten Bhandari DO Consulting Physician JILLIAN LOPEZ MD, MA, FACP, FACC, FSCAI, CCDS Physician requesting consult: Dr Bhandari HPI: Chief Complaint: Reason for Card consult: Shortness of breath 72 yo man who has COPD, has had multiple hospitalizations, has been noncompliant with meds, and appears unable to take care of himself at home (despite 5 visits a week by ) admitted to Dr Bhandari today with shortness of breath, urinary and fecal incontinence, and inability to take care of himself. He denies cp or palp or syncope. He reports gen weakness and malaise. He denies focal weakness. He denies n/v. He has chronic, intermittent leg swelling, unchanged in the recent past Review of Systems-Cardiology Review of Systems Constitutional: malaise; No weight loss, No weight gain Eyes: No vision change Ears/Nose/Throat: No ear discharge, No nasal drainage Respiratory: As described under HPI Cardiovascular: As described under HPI Gastrointestinal: As described under HPI Genitourinary: No dysuria, No hematuria; incontinence; No urine frequency changes Musculoskeletal: back pain (chronic), joint pain (chronic) Skin: No rash, No ulcerations Psychiatric/Neurological: No seizure, No focal weakness, No syncope Hematologic: No bleeding abnormalities [id number] Hx Patient Social History Smoking Status: Former Smoker 2nd Hand Smoke Exposure: Yes Have you traveled recently?: No Alcohol Use?: No Pt feels they are or have been: No Immunizations Up To Date Tetanus Booster (TDap): Less than 5yrs Date of Pneumonia Vaccine: Jul 03, 2018 Date of Influenza Vaccine: Dec 11, 2022 Past Medical History PMH As described under Assessment. Family Medical History Family Medical History: He reports a younger and older brother, both in their 60's, with CAD. Family History: COPD Diabetes mellitus Allergies and Home Medications Allergies Coded Allergies: codeine (Verified Allergy, Mild, HIVES...TAKES OXYCODONE & MS CONTIN AT HOME, 03/11/19) streptokinase (Verified Allergy, Unknown, 03/11/19) Patient Home Medication List Home Medication List Reviewed: Yes Albuterol Sulfate (Ventolin Hfa) 1 Puff Puff, 2 PUFF INH Q6H PRN for SHORTNESS OF BREATH, (Reported) Entered as Reported by: KARINA RAPHAEL on 08/06/20 1606 Aspirin (Aspirin EC) 81 Mg Tablet.dr, 81 MG PO DAILY, (Reported) Entered as Reported by: KARINA RAPHAEL on 12/10/22 1010 Atorvastatin Calcium (Lipitor) 40 Mg Tablet, 40 MG PO DAILY Prescribed by: KIRSTEN BHANDARI on 12/18/22 1238 Bethanechol Chloride (Urecholine) 10 Mg Tablet, 20 MG PO BID, (Reported) Entered as Reported by: KARINA RAPHAEL on 12/10/22 1010 Gabapentin (Neurontin) 300 Mg Capsule, 300 MG PO TID, (Reported) Entered as Reported by: KARINA RAPHAEL on 08/01/22 1517 Metoprolol Succinate (Metoprolol Succinate) 25 Mg Tab.er.24h, 25 MG PO DAILY, (Reported) Entered as Reported by: KARINA RAPHAEL on 12/10/22 1010 Montelukast Sodium (Montelukast Sodium) 10 Mg Tablet, 10 MG PO DAILY, (Reported) Entered as Reported by: KARINA RAPHAEL on 12/10/22 1010 Oxycodone HCl (Oxycodone HCl) 5 Mg Tablet, 5 MG PO Q4H PRN for PAIN-SEVERE (8- 10) Prescribed by: KIRSTEN BHANDARI on 12/18/22 1239 Pantoprazole Sodium (Pantoprazole Sodium) 40 Mg Tablet.dr, 40 MG PO DAILY, (Reported) Entered as Reported by: KARINA RAPHAEL on 12/10/22 1010 Prednisone (Prednisone) 10 Mg Tab.ds.pk, 10 MG PO DAILY Prescribed by: KIRSTEN BHANDARI on 12/18/22 1238 Ranolazine (Ranolazine ER) 500 Mg Tab.er.12h, 500 MG PO BID, (Reported) Entered as Reported by: KARINA RAPHAEL on 12/10/22 1010 Discontinued Medications L.acidoph & Paracasei,B.lactis (Probiotic) 10 Billion Cell Capsule, 1 EACH PO BID Discontinued Reason: No Longer Taking Prescribed by: BRYANNA VALENTIN on 12/12/22 1114 Nitroglycerin (Nitroglycerin) 0.4 Mg Tab.subl, 0.4 MG SL UD PRN for CHEST PAIN (ANGINA), (Reported) Discontinued Reason: No Longer Taking Entered as Reported by: CHAVA HERRERA on 11/24/22 0838 Physical Exam-Cardiology Physical Exam Vital Signs/I&O 12/21/22 12/21/22 12/21/22 12/21/22 03:02 04:41 05:24 05:31 Temp 36.9 36.6 Pulse 90 93 Resp 20 22 B/P (MAP) 181/95 189/90 (123) Pulse Ox 94 99 100 100 O2 Delivery Nasal Cannula Nasal Cannula Nasal Cannula Nasal Cannula O2 Flow Rate 4.00 4.00 4.00 4.00 12/21/22 12/21/22 07:25 11:08 Temp 36.6 36.6 Pulse 97 82 Resp 20 20 B/P (MAP) 141/65 (90) 162/83 (109) Pulse Ox 94 98 O2 Delivery Nasal Cannula Nasal Cannula O2 Flow Rate 4.00 4.00 Capillary Refill : Less Than 3 Seconds Constitutional: AAO x 3, well-developed, well-nourished HEENT: EOMI; No xanthelasmas are seen Neck: carotid pulses are 2 + bilaterally, with good upstrokes Respiratory: No accessory muscle use; chest expansion is symmetric, chest is bilaterally symmetric, other (fair air enty, prolonged exp, exp wheezes) Cardiovascular: regular rate-rhythm, S1 and S2, systolic murmur (soft ISAAC at card basee) Gastrointestinal: No tender; soft; No guarding; audible bowel sounds Extremities: No clubbing, No cyanosis, No significant edema Neurologic/Psychiatric: oriented x 3, other (moves all limbs equally) Skin: normal color, warm/dry; No cyanosis, No rash on exposed areas, No ulcerations on exposed areas Data Review Labs Laboratory Tests 12/21/22 02:44: White Blood Count 15.4H, Red Blood Count 3.92L, Hemoglobin 12.3L, Hematocrit 37L , Mean Corpuscular Volume 93, Mean Corpuscular Hemoglobin 31, Mean Corpuscular Hemoglobin Concent 34, Red Cell Distribution Width 14.6H, Platelet Count 352, Mean Platelet Volume 10.5, Immature Granulocyte % (Auto) 1, Neutrophils (%) (Auto) 76H, Lymphocytes (%) (Auto) 15, Monocytes (%) (Auto) 7, Eosinophils (%) (Auto) 1, Basophils (%) (Auto) 0, Neutrophils # (Auto) 11.6H, Lymphocytes # (Auto) 2.4, Monocytes # (Auto) 1.1H, Eosinophils # (Auto) 0.2, Basophils # (Auto) 0.0, Immature Granulocyte # (Auto) 0.1, Neutrophils % (Manual) 77, Lymphocytes % (Manual) 17, Monocytes % (Manual) 6, Blood Morphology Comment NORMAL, Prothrombin Time 12.9, INR Comment 0.9, Activated Partial Thromboplast Time 25, Sodium Level 140, Potassium Level 4.2, Chloride Level 103, Carbon Dioxide Level 26, Anion Gap 11, Blood Urea Nitrogen 17, Creatinine 0.78, Estimat Glomerular Filtration Rate 96, BUN/Creatinine Ratio 22, Glucose Level 102, Lactic Acid Level 0.68, Calcium Level 8.7, Corrected Calcium 9.4, Total Bi lirubin 0.9, Aspartate Amino Transf (AST/SGOT) 29, Alanine Aminotransferase (ALT/SGPT) 34, Alkaline Phosphatase 96, C-Reactive Protein High Sensitivity 1.28H, B-Type Natriuretic Peptide 766.2H, Total Protein 5.7L, Albumin 3.1L, Serum Alcohol < 10 12/21/22 03:15: Urine Color YELLOW, Urine Clarity SL CLOUDY, Urine pH 7.5, Urine Specific [place] 1.015L, Urine Protein NEGATIVE, Urine Glucose (UA) NEGATIVE, Urine Ketones NEGATIVE, Urine Nitrite NEGATIVE, Urine Bilirubin NEGATIVE, Urine Urobilinogen 1.0, Urine Leukocyte Esterase NEGATIVE, Urine RBC (Auto) NEGATIVE, Urine RBC NONE, Urine WBC 2-5, Urine Squamous Epithelial Cells 0-2, Urine Crystals NONE, Urine Bacteria LARGEH, Urine Casts PRESENT, Urine Hyaline Casts 0-2H, Urine Mucus NEGATIVE, Urine Culture Indicated YES Microbiology 12/21/22 Urine Culture - Preliminary, Resulted Gram Negative Bacillus 1 Laboratory Tests 12/21/22 02:44 A/P-Cardiology Assessment/Admission Diagnosis Shortness of breath due to AECOPD - on continuous home oxygen but had been noncompliant No evidence of CHF on clinical exam or recent card cath - Echo on 08/26/22: LVEF 55-60%, biatrial enlargement, normal PASP, pseudonormal ventricular filling was suspected on echo but card cath the same day showed normal LVEDP - Card cath on 08/26/22: Mild to moderate coronary artery disease, nonobstructive. Normal global left ventricular systolic function with ejection fraction approximately 60%. Normal left ventricular end-diastolic pressure Mild to mod CAD (see cath report above) Sinus node dysfunction - s/p dual chamber pacemaker. ECG of 12/21/22 shows atrial-paced rhythm Elevated BNP due to pulmonary disease Polysubstance abuse, including alcohol abuse Hypertension Inability to take care of self Hyperlipidemia, treated with statin History of avascular necrosis of the hip -h/o multiple hip surgeries in the past and hip replacements. Previous history of tobaccoism Discussion and Recomendations * Management of AECOPD and substance abuse and social malplacement is with Dr Chapa rner * Continue ASA * Continue statin * D/c beta-a[place] because of h/o COPD and bronchospasm * Use amlodipine for bp control * Repeat echo * Monitor labs JILLIAN LOPEZ MD FACP FACC CCDS Dec 21, 2022 14:31
[2022-12-21] MEDS ORDERED: ASPIRIN 81 MG CHEW (CHILDREN'S ASA) PO NR (15:15)
[2022-12-21] MEDS ORDERED: amLODIPine 5 MG (NORVASC) TAB PO NR (15:15)
[2022-12-21] MEDS: DOCUSATE SODIUM 100 MG (COLACE) CAP PO SCH (19:50)
[2022-12-21] MEDS: SENNOSIDES 8.6 MG (SENOKOT) TAB PO SCH (19:50)
[2022-12-21] MEDS: RT-ALBUTEROL SULF 2.5 MG/3 ML PRE-MIX VIAL INH SCH ×2 (23:02→23:59)
[2022-12-21] MEDS: RT-IPRATROPIUM (ATROVENT) 0.5MG/2.5ML AMP IH SCH ×2 (23:02→23:59)
[2022-12-22] MEDS: oxyCODONE/APAP 5/325MG (PERCOCET 5) TABLET PO PRN ×6 (02:29→22:53)
[2022-12-22 03:16] VITALS: BP_SYST 162; BP_SYST 172; BP_DIAS 88
[2022-12-22] MEDS: cefTRIAXone 1 GM/50 ML (PRE-MIX) IV SCH (03:17)
[2022-12-22] MEDS: CATHETER FLUSH 10 ML SYR IVP SCH ×3 (04:53→21:10)
[2022-12-22 06:05] LABS: BASOPHILS % (AUTO) 0 % (0-10); EOSINOPHILS % (AUTO) 0 % (0-10); HEMATOCRIT 36 % (40-54); HEMOGLOBIN 11.8 g/dL (13.3-17.7); LYMPHOCYTES # (AUTO) 1.1 10^3/uL (1.0-4.0); LYMPHOCYTES % (AUTO) 8 % (12-44); MEAN CORPUSCULAR HEMOGLOBIN 31 pg (25-34); MEAN CORPUSCULAR HGB CONC 33 g/dL (32-36); MEAN CORPUSCULAR VOLUME 96 fL (80-99); MEAN PLATELET VOLUME 10.9 fL (9.0-12.2); MONOCYTES # (AUTO) 0.9 10^3/uL (0.0-1.0); MONOCYTES % (AUTO) 6 % (0-12); NEUTROPHILS # (AUTO) 11.7 10^3/uL (1.8-7.8); NEUTROPHILS % (AUTO) 85 % (42-75); PLATELET COUNT 265 10^3/uL (130-400); WHITE BLOOD COUNT 13.8 10^3/uL (4.3-11.0)
[2022-12-22 06:25] LABS: ALBUMIN 2.8 GM/DL (3.2-4.5)
[2022-12-22 06:26] LABS: BILIRUBIN,TOTAL 0.4 MG/DL (0.1-1.0); CALCIUM 8.7 MG/DL (8.5-10.1); CREATININE SERUM 1.14 MG/DL (0.60-1.30); POTASSIUM 4.4 MMOL/L (3.6-5.0); TOTAL PROTEIN 5.3 GM/DL (6.4-8.2)
[2022-12-22] MEDS: SENNOSIDES 8.6 MG (SENOKOT) TAB PO SCH ×2 (07:27→20:55)
[2022-12-22] MEDS: DOCUSATE SODIUM 100 MG (COLACE) CAP PO SCH ×2 (07:27→20:55)
[2022-12-22 08:02] VITALS: BP_SYST 140; BP_SYST 155; BP_DIAS 107; BP_DIAS 80
[2022-12-22] MEDS: amLODIPine 5 MG (NORVASC) TAB PO SCH (08:33)
[2022-12-22] MEDS: ASPIRIN 81 MG CHEW (CHILDREN'S ASA) PO SCH (08:33)
[2022-12-22] MEDS: GABAPENTIN 300 MG (NEURONTIN) CAP PO SCH ×3 (08:33→21:09)
--- NOTE | 2022-12-22 10:13 | Cardiology Progress Note ---
Subjective Date Seen by Provider: Dec 22, 2022 Time Seen by Provider: 10:09 Subjective/Events-last exam Patient is complaining of generalized weakness, loss of energy. Incontinence. Review of Systems General: No Chills, No Night Sweats; Fatigue, Malaise; No Appetite, No Other HEENT: No Head Aches, No Visual Changes, No Eye Pain, No Ear Pain, No Dysphasia, No Sinus Congestion, No Post Nasal Drip, No Sore Throat, No Other Pulmonary: No Dyspnea, No Cough, No Pleuritic Chest Pain, No Other Cardiovascular: No: Chest Pain, Palpitations, Orthopnea, Paroxysmal Noc. Dyspnea, Edema, Lt Headedness, Other Focused Exam Lactate Level 12/21/22 02:44: Lactic Acid Level 0.68 Objective-Cardiology Exam Last Set of Vital Signs Vital Signs 12/21/22 12/22/22 12/22/22 20:00 08:00 08:02 Temp 36.7 Pulse 76 Resp 22 B/P (MAP) 140/80 (100) Pulse Ox 98 O2 Delivery Nasal Cannula O2 Flow Rate 4.00 FiO2 44 I&O Intake and Output 12/22/22 00:00 Intake Total 1343 ml Output Total 2950 ml Balance -1607 ml Intake Oral 1293 ml IV Total 50 ml Output Urine Total 2950 ml # Bowel Movements 2 Daily Weight Change Yes, 14-23 lbs General: Alert HEENT: Atraumatic, PERRLA Neck: Supple, No JVD, No Thyromegaly Lungs: Clear to Auscultation, Normal Air Movement Heart: Regular Rate, Normal S1, Normal S2, Other (Systolic murmur) Abdomen: Normal Bowel Sounds, Soft, No Tenderness, No Hepatosplenomegaly, No Masses Extremities: No Clubbing, No Cyanosis, No Edema, Normal Pulses, No Tendernes s/Swelling Skin: No Rashes, No Breakdown, No Significant Lesion Neuro: Normal Speech, Normal Tone, Sensation Intact Psych/Mental Status: Mental Status NL, Mood NL Results Lab Laboratory Tests 12/22/22 05:45 A/P-Cardiology Admission Diagnosis Generalized weakness Hypertension Coronary artery disease Cardiac pacemaker Assessment/Plan Generalized weakness, incontinence, unable to take care of himself Managed by medical team Labile blood pressure, history of noncompliance with medication. Educated about compliance, monitor blood pressure. Shortness of breath, better today. Continue to monitor Alcohol intoxication, history of alcoholism and polysubstance abuse. Managed by medical team Dysuria, incontinence Managed by medical team Coronary artery disease, cardiac catheterization carried out in 2012 and 2014 with diffuse atherosclerotic plaques. Nonobstructive disease. Cardiac catheterization was carried out by Dr. Houser on August 26, 2022 with nonobstructive coronary artery disease. iFR was done through the circumflex artery. Review of his cardiac catheterization film showed calcification in the left main and the proximal LAD with mild to moderate disease, 50% stenosis in the mid circumflex artery with IFR 0.97. Small vessel disease distally, dominant circumflex artery. 2D echo done on August 26, 2022 with normal LV size and function. Ejection fraction 55 to 60%, grade 2 diastolic dysfunction, biatrial enlargement, PA pressure 15 mmHg Hyperlipidemia, well controlled on current medication, continue to monitor History of dual-chamber pacemaker due to sinus node dysfunction, he has history of sinus pause for 3.2 second. Continue to monitor History of avascular necrosis of the hip, underwent multiple hip surgeries in the past and hip replacements. History of gastroesophageal reflux disease, COPD. Polysubstance use for pain control Previous history of tobaccoism Poor hygiene. SKYLA SQUIRES MD Dec 22, 2022 10:13
[2022-12-22 11:48] VITALS: BP 147/72
[2022-12-22] MEDS: ENOXAPARIN 40 MG/0.4 ML (LOVENOX) SYR SC SCH (12:35)
[2022-12-22] MEDS ORDERED: CATHETER FLUSH 10 ML SYR IVP PRN (13:00)
[2022-12-22] MEDS: RT-ALBUTEROL SULF 2.5 MG/3 ML PRE-MIX VIAL INH SCH ×2 (15:07→20:21)
[2022-12-22] MEDS: RT-IPRATROPIUM (ATROVENT) 0.5MG/2.5ML AMP IH SCH ×2 (15:07→20:21)
[2022-12-22] MEDS ORDERED: ATOR40TA70 PO (15:23)
[2022-12-22] MEDS: HYDROmorphone 2 MG/ML VIAL (DILAUDID) IV PRN ×2 (15:48→21:09)
[2022-12-22 16:57] VITALS: BP 139/70
--- NOTE | 2022-12-22 17:27 | Progress Note ---
Subjective Subjective/Events-last exam Seen at 1140. Complaining of shoulder and hip pain. Focused Exam Lactate Level 12/21/22 02:44: Lactic Acid Level 0.68 Objective Exam Last Set of Vital Signs Vital Signs Date Time Temp Pulse Resp B/P (MAP) Pulse Ox O2 Delivery O2 Flow Rate FiO2 12/22/22 17:11 38.0 12/22/22 16:57 92 20 139/70 (93) 100 Nasal Cannula 4.00 12/21/22 20:00 44 Capillary Refill : Less Than 3 Seconds I&O Intake and Output 12/22/22 00:00 Intake Total 1343 ml Output Total 2950 ml Balance -1607 ml Intake Oral 1293 ml IV Total 50 ml Output Urine Total 2950 ml # Bowel Movements 2 Daily Weight Change Yes, 14-23 lbs General: Alert, No Acute Distress Lungs: Other (expiratory wheezing) Heart: Regular Rate, No Murmurs Abdomen: Normal Bowel Sounds, Soft Neuro: Normal Speech Psych/Mental Status: Mood NL Results/Procedures Lab Laboratory Tests 12/22/22 05:45: White Blood Count 13.8H, Red Blood Count 3.77L, Hemoglobin 11.8L, Hematocrit 36L , Mean Corpuscular Volume 96, Mean Corpuscular Hemoglobin 31, Mean Corpuscular Hemoglobin Concent 33, Red Cell Distribution Width 14.5, Platelet Count 265, Mean Platelet Volume 10.9, Immature Granulocyte % (Auto) 1, Neutrophils (%) (Auto) 85H, Lymphocytes (%) (Auto) 8L, Monocytes (%) (Auto) 6, Eosinophils (%) (Auto) 0, Basophils (%) (Auto) 0, Neutrophils # (Auto) 11.7H, Lymphocytes # (Auto) 1.1, Monocytes # (Auto) 0.9, Eosinophils # (Auto) 0.0, Basophils # (Auto) 0.0, Immature Granulocyte # (Auto) 0.1, Sodium Level 136, Potassium Level 4.4, Chloride Level 99, Carbon Dioxide Level 26, Anion Gap 11, Blood Urea Nitrogen 32H, Creatinine 1.14, Estimat Glomerular Filtration Rate 69, BUN/Creatinine Ratio 28, Glucose Level 147H, Calcium Level 8.7, Corrected Calcium 9.7, Total Bilirubin 0.4, Aspartate Amino Transf (AST/SGOT) 15, Alanine Aminotransferase (ALT/SGPT) 22, Alkaline Phosphatase 77, Total Protein 5.3L, Albumin 2.8L Microbiology 12/21/22 Blood Culture - Preliminary, Resulted Escherichia coli See Comments Susceptibility To Follow 12/21/22 Urine Culture - Preliminary, Resulted Escherichia coli Assessment/Plan Assessment/Plan (1) Sepsis Status: Acute Assessment & Plan: Present on admission with leukocytosis, tachypnea. Found to have UTI, culture with E coli, as well as blood culture with E coli. Sensitivity pending. Continue ceftriaxone. Qualifiers: Qualified Codes: A41.51 - Sepsis due to Escherichia coli [e. coli] (2) COPD exacerbation Status: Acute Assessment & Plan: Alubterol and ipratropium TID. Prednisone 50 mg daily x 5 days. Supplemental oxygen as needed. (3) Urinary tract infection Status: Acute Assessment & Plan: Ceftriaxone, E coli with sensitivity pending. Qualifiers: Qualified Codes: N39.0 - Urinary tract infection, site not specified (4) CHF exacerbation Status: Acute Assessment & Plan: BNP elevated, worsened shortness of breath. Given lasix in ER. Cardiology consulted, appreciate recommendations. Qualifiers: Qualified Codes: I50.33 - Acute on chronic diastolic (congestive) heart failure (5) Hypertension Status: Chronic Assessment & Plan: Amlodipine Qualifiers: Qualified Codes: I10 - Essential (primary) hypertension (6) Dependent on wheelchair Status: Chronic (7) Unable to care for self Status: Chronic Assessment & Plan: Has home health but still was soaked in urine on admission and was very recently discharged. 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 (8) CHF (congestive heart failure) Status: Chronic (9) Chronic pain Status: Chronic (10) COPD (chronic obstructive pulmonary disease) Status: Chronic (11) Coronary artery disease Status: Chronic (12) DVT prophylaxis Status: Acute Assessment & Plan: Enoxaparin ARIS FRANCIS MD Dec 22, 2022 17:27
[2022-12-22] MEDS: predniSONE 20 MG TAB PO SCH (17:49)
[2022-12-22 19:46] VITALS: BP 144/75
[2022-12-22] MEDS: RANOLAZINE ER 500 MG TAB (RANEXA) PO SCH (21:09)
[2022-12-22] MEDS: BETHANECHOL 10 MG (URECHOLINE) TAB PO SCH (21:09)
[2022-12-22] MEDS ORDERED: RT-ALBUTEROL SULF 2.5 MG/3 ML PRE-MIX VIAL INH PRN (23:15)
[2022-12-22 23:40] VITALS: BP 126/89
[2022-12-23] MEDS: HYDROmorphone 2 MG/ML VIAL (DILAUDID) IV PRN ×3 (03:02→23:26)
[2022-12-23] MEDS: oxyCODONE/APAP 5/325MG (PERCOCET 5) TABLET PO PRN ×6 (03:02→23:39)
[2022-12-23] MEDS: cefTRIAXone 1 GM/50 ML (PRE-MIX) IV SCH (03:05)
[2022-12-23] MEDS: CATHETER FLUSH 10 ML SYR IVP SCH ×3 (03:08→20:22)
[2022-12-23 03:55] VITALS: BP 142/67
[2022-12-23 05:47] LABS: BASOPHILS % (AUTO) 0 % (0-10); EOSINOPHILS % (AUTO) 0 % (0-10); HEMATOCRIT 33 % (40-54); HEMOGLOBIN 10.9 g/dL (13.3-17.7); LYMPHOCYTES # (AUTO) 0.6 10^3/uL (1.0-4.0); LYMPHOCYTES % (AUTO) 4 % (12-44); MEAN CORPUSCULAR HEMOGLOBIN 32 pg (25-34); MEAN CORPUSCULAR HGB CONC 33 g/dL (32-36); MEAN CORPUSCULAR VOLUME 95 fL (80-99); MEAN PLATELET VOLUME 11.2 fL (9.0-12.2); MONOCYTES # (AUTO) 0.4 10^3/uL (0.0-1.0); MONOCYTES % (AUTO) 3 % (0-12); NEUTROPHILS # (AUTO) 14.2 10^3/uL (1.8-7.8); NEUTROPHILS % (AUTO) 93 % (42-75); PLATELET COUNT 290 10^3/uL (130-400); WHITE BLOOD COUNT 15.4 10^3/uL (4.3-11.0)
[2022-12-23] MEDS: predniSONE 20 MG TAB PO SCH (06:06)
[2022-12-23 06:08] LABS: ALBUMIN 2.7 GM/DL (3.2-4.5); BILIRUBIN,TOTAL 0.3 MG/DL (0.1-1.0); CALCIUM 8.6 MG/DL (8.5-10.1); CREATININE SERUM 0.88 MG/DL (0.60-1.30); POTASSIUM 4.9 MMOL/L (3.6-5.0); TOTAL PROTEIN 5.2 GM/DL (6.4-8.2)
[2022-12-23] MEDS: RT-IPRATROPIUM (ATROVENT) 0.5MG/2.5ML AMP IH SCH ×3 (07:37→19:29)
[2022-12-23] MEDS: RT-ALBUTEROL SULF 2.5 MG/3 ML PRE-MIX VIAL INH SCH ×3 (07:37→19:29)
--- NOTE | 2022-12-23 08:21 | Cardiology Progress Note ---
Subjective Date Seen by Provider: Dec 23, 2022 Time Seen by Provider: 08:19 Subjective/Events-last exam Patient is sitting up in bed, denies any chest pain, continues to have dyspnea, although reporting some improvement today. Focused Exam Lactate Level 12/21/22 02:44: Lactic Acid Level 0.68 Objective-Cardiology Exam Last Set of Vital Signs Vital Signs 12/21/22 12/23/22 20:00 08:24 Temp 36.5 Pulse 86 Resp 18 B/P (MAP) 118/84 (95) Pulse Ox 98 O2 Delivery Nasal Cannula O2 Flow Rate 3.00 FiO2 44 I&O Intake and Output 12/23/22 00:00 Intake Total 2050 ml Output Total 1025 ml Balance 1025 ml Intake Oral 2050 ml Output Urine Total 1025 ml General: Alert, No Acute Distress HEENT: Atraumatic, PERRLA Neck: Supple, No JVD, No Thyromegaly Lungs: Other (expiratory wheezing) Heart: Regular Rate, No Murmurs Abdomen: Normal Bowel Sounds, Soft Extremities: No Clubbing, No Cyanosis, No Edema, Normal Pulses, No Tenderness/Swelling Skin: No Rashes, No Breakdown, No Significant Lesion Neuro: Normal Speech Psych/Mental Status: Mood NL Results Lab Laboratory Tests 12/23/22 05:13 A/P-Cardiology Admission Diagnosis Generalized weakness Hypertension Coronary artery disease Cardiac pacemaker Assessment/Plan Generalized weakness, incontinence, unable to take care of himself Managed by medical team Labile blood pressure, history of noncompliance, educated about the importance of compliance with medications at home Continue to monitor blood pressure. Shortness of breath, better today. Continue to monitor Alcohol intoxication, history of alcoholism and polysubstance abuse. Managed by medical team UTI Managed by medical team Coronary artery disease, cardiac catheterization carried out in 2012 and 2014 with diffuse atherosclerotic plaques. Nonobstructive disease. Cardiac catheterization was carried out by Dr. Houser on August 26, 2022 with nonobstructive coronary artery disease. iFR was done through the circumflex artery. Review of his cardiac catheterization film showed calcification in the left main and the proximal LAD with mild to moderate disease, 50% stenosis in the mid circumflex artery with IFR 0.97. Small vessel disease distally, dominant circumflex artery. 2D echo done on Dec 22, 2022 with mild concentric hypertrophy. Ejection fraction 60-65%, grade 2 diastolic dysfunction, biatrial enlargement Hyperlipidemia, well controlled on current medication, continue to monitor History of dual-chamber pacemaker due to sinus node dysfunction, he has history of sinus pause for 3.2 second. Continue to monitor History of avascular necrosis of the hip, underwent multiple hip surgeries in the past and hip replacements. History of gastroesophageal reflux disease, COPD. Polysubstance use for pain control Previous history of tobaccoism Poor hygiene. Supervisory-Addendum Brief Supervisory Addendum Participated in pt care: history, MDM, physical Personally performed: exam, history, MDM Care discussed with: LO Results interpretation: Verified all documentation Notes: Patient was seen and evaluated with Brooks, examination performed, management plan was discussed, agree with the current scribed note, I made few changes to the note using Italic font Patient was seen at bedside, laying down comfortably, feeling better Still having generalized weakness Blood pressure is more stable Continue to monitor BROOKS GOLD Dec 23, 2022 08:21 SKYLA SQUIRES MD Dec 23, 2022 08:36
[2022-12-23 08:24] VITALS: BP 118/84
[2022-12-23] MEDS: amLODIPine 5 MG (NORVASC) TAB PO SCH (08:53)
[2022-12-23] MEDS: PANTOPRAZOLE 40 MG (PROTONIX) TAB PO SCH (08:54)
[2022-12-23] MEDS: RANOLAZINE ER 500 MG TAB (RANEXA) PO SCH ×2 (08:54→20:22)
[2022-12-23] MEDS: BETHANECHOL 10 MG (URECHOLINE) TAB PO SCH ×4 (08:54→20:22)
[2022-12-23] MEDS: ASPIRIN 81 MG CHEW (CHILDREN'S ASA) PO SCH (08:54)
[2022-12-23] MEDS: DOCUSATE SODIUM 100 MG (COLACE) CAP PO SCH ×2 (08:54→20:22)
[2022-12-23] MEDS: GABAPENTIN 300 MG (NEURONTIN) CAP PO SCH ×3 (08:54→20:22)
[2022-12-23] MEDS: SENNOSIDES 8.6 MG (SENOKOT) TAB PO SCH ×2 (08:54→20:22)
[2022-12-23] MEDS: MONTELUKAST 10 MG (SINGULAIR) TAB PO SCH (08:54)
[2022-12-23 12:40] VITALS: BP 166/65
[2022-12-23] MEDS: ENOXAPARIN 40 MG/0.4 ML (LOVENOX) SYR SC SCH (13:11)
[2022-12-23 15:26] VITALS: BP 151/65
--- NOTE | 2022-12-23 16:17 | Progress Note ---
Subjective Subjective/Events-last exam Afebrile, reports feeling a little better. He would like to go home with catheter in place, states he has done in the past and that works better for him to manage. Focused Exam Lactate Level 12/21/22 02:44: Lactic Acid Level 0.68 Objective Exam Last Set of Vital Signs Vital Signs Date Time Temp Pulse Resp B/P (MAP) Pulse Ox O2 Delivery O2 Flow Rate FiO2 12/23/22 15:26 36.3 94 19 151/65 (93) 99 Nasal Cannula 3.00 12/21/22 20:00 44 Capillary Refill : Less Than 3 Seconds I&O Intake and Output 12/23/22 00:00 Intake Total 2050 ml Output Total 1025 ml Balance 1025 ml Intake Oral 2050 ml Output Urine Total 1025 ml General: Alert Lungs: Other (end expiratory wheezing) Heart: Regular Rate Extremities: No Edema Neuro: Normal Speech Results/Procedures Lab Laboratory Tests 12/23/22 05:13: White Blood Count 15.4H, Red Blood Count 3.42L, Hemoglobin 10.9L, Hematocrit 33L , Mean Corpuscular Volume 95, Mean Corpuscular Hemoglobin 32, Mean Corpuscular Hemoglobin Concent 33, Red Cell Distribution Width 14.9H, Platelet Count 290, Mean Platelet Volume 11.2, Immature Granulocyte % (Auto) 1, Neutrophils (%) (Auto) 93H, Lymphocytes (%) (Auto) 4L, Monocytes (%) (Auto) 3, Eosinophils (%) (Auto) 0, Basophils (%) (Auto) 0, Neutrophils # (Auto) 14.2H, Lymphocytes # (Auto) 0.6L, Monocytes # (Auto) 0.4, Eosinophils # (Auto) 0.0, Basophils # (Auto) 0.0, Immature Granulocyte # (Auto) 0.1, Sodium Level 138, Potassium Level 4.9, Chloride Level 102, Carbon Dioxide Level 28, Anion Gap 8, Blood Urea Nitrogen 27H, Creatinine 0.88, Estimat Glomerular Filtration Rate 93, BUN/Creatinine Ratio 31, Glucose Level 148H, Calcium Level 8.6, Corrected Calcium 9.6, Total Bilirubin 0.3, Aspartate Amino Transf (AST/SGOT) 16, Alanine Aminotransferase (ALT/SGPT) 23, Alkaline Phosphatase 68, Total Protein 5.2L, Albumin 2.7L Microbiology 12/21/22 Blood Culture - Final, Complete Escherichia coli 12/21/22 Urine Culture - Final, Complete Escherichia coli Assessment/Plan Assessment/Plan (1) Sepsis Status: Acute Assessment & Plan: Present on admission with leukocytosis, tachypnea. Found to have UTI, culture with E coli, as well as blood culture with E coli. Continue ceftriaxone. Qualifiers: Qualified Codes: A41.51 - Sepsis due to Escherichia coli [e. coli] (2) COPD exacerbation Status: Acute Assessment & Plan: Alubterol and ipratropium TID. Prednisone 50 mg daily x 5 days. Supplemental oxygen as needed. (3) Urinary tract infection Status: Acute Assessment & Plan: Ceftriaxone, E coli sensitive to. Qualifiers: Qualified Codes: N39.0 - Urinary tract infection, site not specified (4) CHF exacerbation Status: Acute Assessment & Plan: BNP elevated, worsened shortness of breath. Given lasix in ER. Cardiology consulted, appreciate recommendations. Qualifiers: Qualified Codes: I50.33 - Acute on chronic diastolic (congestive) heart iram lure (5) Hypertension Status: Chronic Assessment & Plan: Amlodipine Qualifiers: Qualified Codes: I10 - Essential (primary) hypertension (6) Dependent on wheelchair Status: Chronic (7) Unable to care for self Status: Chronic Assessment & Plan: Has home health but still was soaked in urine on admission and was very recently discharged. 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 (8) CHF (congestive heart failure) Status: Chronic (9) Chronic pain Status: Chronic (10) COPD (chronic obstructive pulmonary disease) Status: Chronic (11) Coronary artery disease Status: Chronic (12) DVT prophylaxis Status: Acute Assessment & Plan: Enoxaparin ARIS FRANCIS MD Dec 23, 2022 16:17
[2022-12-23 19:58] VITALS: BP 128/70
[2022-12-23 23:41] VITALS: BP 105/81
[2022-12-24 03:25] VITALS: BP 163/89
[2022-12-24] MEDS: CATHETER FLUSH 10 ML SYR IVP SCH ×2 (03:39→13:35)
[2022-12-24] MEDS: HYDROmorphone 2 MG/ML VIAL (DILAUDID) IV PRN (03:39)
[2022-12-24] MEDS: oxyCODONE/APAP 5/325MG (PERCOCET 5) TABLET PO PRN ×2 (03:40→11:14)
[2022-12-24] MEDS: cefTRIAXone 1 GM/50 ML (PRE-MIX) IV SCH (03:41)
[2022-12-24] MEDS: predniSONE 20 MG TAB PO SCH (05:52)
[2022-12-24 06:09] LABS: BASOPHILS % (AUTO) 0 % (0-10); EOSINOPHILS % (AUTO) 0 % (0-10); HEMATOCRIT 33 % (40-54); HEMOGLOBIN 10.8 g/dL (13.3-17.7); LYMPHOCYTES # (AUTO) 1.8 10^3/uL (1.0-4.0); LYMPHOCYTES % (AUTO) 13 % (12-44); MEAN CORPUSCULAR HEMOGLOBIN 32 pg (25-34); MEAN CORPUSCULAR HGB CONC 33 g/dL (32-36); MEAN CORPUSCULAR VOLUME 95 fL (80-99); MEAN PLATELET VOLUME 11.1 fL (9.0-12.2); MONOCYTES % (AUTO) 8 % (0-12); NEUTROPHILS # (AUTO) 10.9 10^3/uL (1.8-7.8); NEUTROPHILS % (AUTO) 78 % (42-75); PLATELET COUNT 281 10^3/uL (130-400); WHITE BLOOD COUNT 13.9 10^3/uL (4.3-11.0)
[2022-12-24 06:34] LABS: ALBUMIN 2.6 GM/DL (3.2-4.5); BILIRUBIN,TOTAL 0.2 MG/DL (0.1-1.0); CALCIUM 8.5 MG/DL (8.5-10.1); POTASSIUM 4.2 MMOL/L (3.6-5.0); TOTAL PROTEIN 5.1 GM/DL (6.4-8.2)
[2022-12-24] MEDS: RT-ALBUTEROL SULF 2.5 MG/3 ML PRE-MIX VIAL INH SCH (07:11)
[2022-12-24] MEDS: RT-IPRATROPIUM (ATROVENT) 0.5MG/2.5ML AMP IH SCH (07:11)
[2022-12-24 07:20] VITALS: BP 153/91
[2022-12-24 08:35] VITALS: BP 153/91
[2022-12-24] MEDS: SENNOSIDES 8.6 MG (SENOKOT) TAB PO SCH (08:36)
[2022-12-24] MEDS: MONTELUKAST 10 MG (SINGULAIR) TAB PO SCH (08:36)
[2022-12-24] MEDS: GABAPENTIN 300 MG (NEURONTIN) CAP PO SCH ×2 (08:36→13:35)
[2022-12-24] MEDS: ASPIRIN 81 MG CHEW (CHILDREN'S ASA) PO SCH (08:36)
[2022-12-24] MEDS: RANOLAZINE ER 500 MG TAB (RANEXA) PO SCH (08:36)
[2022-12-24] MEDS: BETHANECHOL 10 MG (URECHOLINE) TAB PO SCH ×2 (08:36→13:35)
[2022-12-24] MEDS: amLODIPine 5 MG (NORVASC) TAB PO SCH (08:36)
[2022-12-24] MEDS: DOCUSATE SODIUM 100 MG (COLACE) CAP PO SCH (08:36)
[2022-12-24] MEDS: PANTOPRAZOLE 40 MG (PROTONIX) TAB PO SCH (08:36)
--- NOTE | 2022-12-24 10:46 | Cardiology Progress Note ---
Subjective Date Seen by Provider: Dec 24, 2022 Time Seen by Provider: 09:55 Subjective/Events-last exam Patient sitting up in bed, denies any chest pain or increased dyspnea. Objective-Cardiology Exam Last Set of Vital Signs Vital Signs 12/21/22 12/24/22 20:00 11:48 Temp 37.3 Pulse 84 Resp 18 B/P (MAP) 146/90 (108) Pulse Ox 94 O2 Delivery Nasal Cannula O2 Flow Rate 3.00 FiO2 44 I&O Intake and Output 12/24/22 00:00 Intake Total 1440 ml Output Total 1100 ml Balance 340 ml Intake Oral 1390 ml IV Total 50 ml Output Urine Total 1100 ml General: Alert HEENT: Atraumatic, PERRLA Neck: Supple, No JVD, No Thyromegaly Lungs: Other (end expiratory wheezing) Heart: Regular Rate Abdomen: Normal Bowel Sounds, Soft Extremities: No Edema Skin: No Rashes, No Breakdown, No Significant Lesion Neuro: Normal Speech Psych/Mental Status: Mood NL Results Lab Laboratory Tests 12/24/22 05:47 A/P-Cardiology Admission Diagnosis Generalized weakness Hypertension Coronary artery disease Cardiac pacemaker Assessment/Plan Generalized weakness, incontinence, unable to take care of himself Managed by medical team Labile blood pressure, history of noncompliance, educated about the importance of compliance with medications at home Continue to monitor blood pressure. Shortness of breath, better today. Continue to monitor Alcohol intoxication, history of alcoholism and polysubstance abuse. Managed by medical team UTI Managed by medical team Coronary artery disease, cardiac catheterization carried out in 2012 and 2014 with diffuse atherosclerotic plaques. Nonobstructive disease. Cardiac catheterization was carried out by Dr. Houser on August 26, 2022 with nonobstructive coronary artery disease. iFR was done through the circumflex artery. Review of his cardiac catheterization film showed calcification in the left main and the proximal LAD with mild to moderate disease, 50% stenosis in the mid circumflex artery with IFR 0.97. Small vessel disease distally, dominant circumflex artery. 2D echo done on Dec 22, 2022 with mild concentric hypertrophy. Ejection fraction 60-65%, grade 2 diastolic dysfunction, biatrial enlargement Hyperlipidemia, well controlled on current medication, continue to monitor History of dual-chamber pacemaker due to sinus node dysfunction, he has history of sinus pause for 3.2 second. Continue to monitor History of avascular necrosis of the hip, underwent multiple hip surgeries in the past and hip replacements. History of gastroesophageal reflux disease, COPD. Polysubstance use for pain control Previous history of tobaccoism Poor hygiene. Supervisory-Addendum Brief Supervisory Addendum Participated in pt care: history, MDM, physical Personally performed: exam, history, MDM Care discussed with: LO Results interpretation: Verified all documentation Notes: Patient was seen and evaluated with Brooks, examination performed, management plan was discussed, agree with the current scribed note, I made few changes to the note using Italic font Patient was seen at bedside, laying down comfortably, feeling better Possible discharge today We discussed compliance with medications. Continue with physical therapy We will arrange for follow-up as an outpatient BROOKS GOLD Dec 24, 2022 10:46 SKYLA SQUIRES MD Dec 24, 2022 13:31
[2022-12-24 11:48] VITALS: BP_SYST 146; BP_SYST 186; BP_DIAS 90; BP_DIAS 96
[2022-12-24] MEDS: ENOXAPARIN 40 MG/0.4 ML (LOVENOX) SYR SC SCH (13:35)
[2022-12-24] MEDS ORDERED: CEFD300C3 PO (15:10)
[2022-12-24] MEDS ORDERED: PRD50T PO (15:10)
--- NOTE | 2022-12-24 15:14 | D/C HH Face to Face Order ---
D/C Face to Face Orders Instructions for Patient Patient Instructions/FollowUp: Follow up with primary doctor within a week of discharge. Physician to follow Patient: BOBYSEK Discharge Diet for Home: Cardiac Diet Patient Data-Allergies,Ht & Wt Patient Allergies: Coded Allergies: codeine (Verified Allergy, Mild, HIVES...TAKES OXYCODONE & MS CONTIN AT HOME, 03/11/19) streptokinase (Verified Allergy, Unknown, 03/11/19) Height (Feet): 5 Height (Inches): 8.00 Weight (Pounds): 170 Weight (Ounces): 8.0 Home Health Need/Face to Face Date of Face to Face: Dec 24, 2022 Clinical Findings: Instability, Non or partial weight bearing I have seen Pt [id number]: Yes Discharged To: Home Diagnosis/Conditions: Urinary tract infection COPD exacerbation Non ambulatory Patient is Homebound due to: Non-weight bearing Homebound Status Due to the above stated illness, injury or surgical procedure (medical condition or diagnosis) and associated clinical findings, the patient is homebound because of his/her inability to leave home except with aid of a supportive device and/or person AND leaving the home requires a considerable and taxing effort or is medically contraindicated. Pt req the following assistanc: Aid of another person, Wheelchair Home Health Nursing Orders Home Health Services Order: Nursing Services Clean with soap and water around the catheter daily. Home Health Infusion Therapy Line Start Date: Dec 21, 2022 Certify Stmt I certify that this patient is under my care and that I, a nurse practitioner or a physician; a cafe assistant working with me, had a face to face encounter that - meets the physician face to face encounter requirements with this patient as dated. ARIS FRANCIS MD Dec 24, 2022 15:14
[2022-12-24 15:56] VITALS: BP 146/90
--- NOTE | 2022-12-24 19:51 | Discharge Summary ---
Discharge Summary Hospital Course Problems/Diagnosis: (1) Sepsis Status: Acute Assessment & Plan: Present on admission with leukocytosis, tachypnea. Found to have UTI, culture with E coli, as well as blood culture with E coli. Discharged with cefdinir. Qualifiers: Qualified Codes: A41.51 - Sepsis due to Escherichia coli [e. coli] (2) COPD exacerbation Status: Acute Assessment & Plan: Alubterol and ipratropium TID. Prednisone 50 mg daily x 5 days. Supplemental oxygen as needed. (3) Urinary tract infection Status: Acute Assessment & Plan: E coli, see above. Qualifiers: Qualified Codes: N39.0 - Urinary tract infection, site not specified (4) CHF exacerbation Status: Acute Assessment & Plan: BNP elevated, worsened shortness of breath. Given lasix in ER. Cardiology consulted, appreciate recommendations. Qualifiers: Qualified Codes: I50.33 - Acute on chronic diastolic (congestive) heart failure (5) Hypertension Status: Chronic Assessment & Plan: Amlodipine Qualifiers: Qualified Codes: I10 - Essential (primary) hypertension (6) Dependent on wheelchair Status: Chronic (7) Unable to care for self Status: Chronic Assessment & Plan: Has home health but still was soaked in urine on admission and was very recently discharged. student services counselor consult. Pt declined other than home d/c. (8) CHF (congestive heart failure) Status: Chronic (9) Chronic pain Status: Chronic (10) COPD (chronic obstructive pulmonary disease) Status: Chronic (11) Coronary artery disease Status: Chronic (12) Urinary incontinence Status: Chronic Assessment & Plan: Requested to go home with indwelling catheter as he had used in past and felt he did better then. Home health ordered. Hospital Course Date of Admission: Dec 21, 2022 at 04:53 Admission Diagnosis : Family Physician/Provider: [place] [place] Date of Discharge: 12/24/22 Discharge Diagnosis: See problem list Hospital Course: See problem list Labs and Pending Lab Test: Laboratory Tests 12/24/22 05:47: White Blood Count 13.9H, Red Blood Count 3.43L, Hemoglobin 10.8L, Hematocrit 33L , Mean Corpuscular Volume 95, Mean Corpuscular Hemoglobin 32, Mean Corpuscular Hemoglobin Concent 33, Red Cell Distribution Width 14.7H, Platelet Count 281, Mean Platelet Volume 11.1, Immature Granulocyte % (Auto) 1, Neutrophils (%) (Auto) 78H, Lymphocytes (%) (Auto) 13, Monocytes (%) (Auto) 8, Eosinophils (%) (Auto) 0, Basophils (%) (Auto) 0, Neutrophils # (Auto) 10.9H, Lymphocytes # (Auto) 1.8, Monocytes # (Auto) 1.0, Eosinophils # (Auto) 0.0, Basophils # (Auto) 0.0, Immature Granulocyte # (Auto) 0.1, Sodium Level 136, Potassium Level 4.2, Chloride Level 102, Carbon Dioxide Level 24, Anion Gap 10, Blood Urea Nitrogen 28H, Creatinine 1.00, Estimat Glomerular Filtration Rate 81, BUN/Creatinine Ratio 28, Glucose Level 115H, Calcium Level 8.5, Corrected Calcium 9.6, Total Bilirubin 0.2, Aspartate Amino Transf (AST/SGOT) 18, Alanine Aminotransferase (ALT/SGPT) 19, Alkaline Phosphatase 67, Total Protein 5.1L, Albumin 2.6L Microbiology 12/21/22 Blood Culture - Final, Complete Escherichia coli 12/21/22 Urine Culture - Final, Complete Escherichia coli Home Meds Active Cefdinir 300 Mg Capsule 300 Mg PO BID Prednisone 50 Mg Tab 50 Mg PO DAILY Reported Atorvastatin Calcium 40 Mg Tablet 40 Mg PO DAILY Aspirin EC (Aspirin) 81 Mg Tablet.dr 81 Mg PO DAILY Urecholine (Bethanechol Chloride) 10 Mg Tablet 10 Mg PO QID Ranolazine ER (Ranolazine) 500 Mg Tab.er.12h 500 Mg PO BID Metoprolol Succinate 25 Mg Tab.er.24h 25 Mg PO DAILY Montelukast Sodium 10 Mg Tablet 10 Mg PO DAILY Pantoprazole Sodium 40 Mg Tablet.dr 40 Mg PO DAILY Neurontin (Gabapentin) 300 Mg Capsule 300 Mg PO TID Ventolin Hfa (Albuterol Sulfate) 1 Puff Puff 2 Puff INH Q6H PRN Assessment/Pt DC Instructions Follow up with primary provider within a week of discharge. Discharge Diet: Cardiac Diet Activity as Tolerated: Yes Discharge Physical Examination Allergies: Coded Allergies: codeine (Verified Allergy, Mild, HIVES...TAKES OXYCODONE & MS CONTIN AT HOME, 03/11/19) streptokinase (Verified Allergy, Unknown, 03/11/19) General Appearance: No Apparent Distress Respiratory: Crackles Cardiovascular: Regular Rate, Rhythm Skin: Warm/Dry Neurologic/Psychiatric: Alert, Oriented x3, Normal Mood/Affect ARIS FRANCIS MD Dec 24, 2022 19:51
[2022-12-24] MEDS ORDERED: RT-IPRATROPIUM (ATROVENT) 0.5MG/2.5ML AMP IH SCH (21:00)
[2022-12-24] MEDS ORDERED: RT-ALBUTEROL SULF 2.5 MG/3 ML PRE-MIX VIAL INH SCH (21:00)
== END 2022-12-24 15:30 | disposition home or self-care (01) ==
LOC: EDUNIT# 02:02 → ER 02:04 → UNDOADMOB 04:53 → 4TH 04:53 → INTOOBSV 04:53 → 4TH 18:53 → UNDODISOB 12-24 15:30
PROVIDERS: ADMIT Internal Medicine; ATTEND Family Medicine
DX: A41.51 Sepsis due to Escherichia coli [E. coli] (principal); J44.1 Chronic obstructive pulmonary disease with (acute) exacerbation; I11.0 Hypertensive heart disease with heart failure; I50.33 Acute on chronic diastolic (congestive) heart failure; N39.41 Urge incontinence; I25.10 Atherosclerotic heart disease of native coronary artery without angina pectoris; G89.29 Other chronic pain; N39.0 Urinary tract infection, site not specified; Z79.899 Other long term (current) drug therapy; F10.129 Alcohol abuse with intoxication, unspecified; F19.129 Other psychoactive substance abuse with intoxication, unspecified; Z87.891 Personal history of nicotine dependence; Z99.3 Dependence on wheelchair; Z99.81 Dependence on supplemental oxygen; E78.5 Hyperlipidemia, unspecified; Z74.1 Need for assistance with personal care; Z95.818 Presence of other cardiac implants and grafts; Z79.82 Long term (current) use of aspirin; Z79.891 Long term (current) use of opiate analgesic
CPT/HCPCS: 36415; 51702; 71045; 80053; 80320; 81000; 83605; 83880; 85007; 85025; 85027; 85610; 85730; 86141; 87040; 87077; 87088; 87186; 93005; 93306; 94640; 94760; 96366; 96372; 96375; 96376; G0378

== ENCOUNTER 2022-12-26 17:42 | Emergency (ER) | payer MEDICARE, MEDICAID ==
[~2022-12-26] VITALS: Ht 172.7 cm; Wt 64.9 kg
[~2022-12-26 17:42] MED LIST changes: +ATOR40TA70 PO; +PRD50T PO
[2022-12-26] MEDS ORDERED: HYDROcodone/APAP 5 MG/325 MG (LORTAB) TAB PO ONE (18:15)
--- NOTE | 2022-12-26 18:19 | ED Respiratory ---
General Chief Complaint: Respiratory Problems Stated Complaint: SOB Source: patient Exam Limitations: no limitations (JOHN FISCHER) History of Present Illness Date Seen by Provider: Dec 26, 2022 Time Seen by Provider: 18:14 Initial Comments Patient is a 72-year-old male with a history of COPD, CHF, wheelchair-bound who presents ED with shortness of breath. This occurred around 3:00. Patient states he started feeling short of breath using albuterol inhaler and noted improvement. He called EMS since he was feeling short of breath they noted that his oxygen was not on. After placing his oxygen 3 L he noted significant improvement. He reports a chronic cough. Patient Was placed on cefdinir and prednisone at discharge yesterday from the hospital. EMS brought patient in to the ED due to the shortness of breath. On arrival he has no current chest pain, shortness of breath, abdominal pain, vomiting or diarrhea. Reports history of urinary and stool incontinence. He states this is chronic. He does report right shoulder pain and he is due for his dose of Percocet. Denies fever, chills, body aches, headache, dizziness. (JOHN FISCHER) Allergies and Home Medications Allergies Coded Allergies: codeine (Verified Allergy, Mild, HIVES...TAKES OXYCODONE & MS CONTIN AT HOME, 03/11/19) streptokinase (Verified Allergy, Unknown, 03/11/19) Patient Home Medication List Home Medication List Reviewed: Yes (JOHN FISCHER) Albuterol Sulfate (Ventolin Hfa) 1 Puff Puff, 2 PUFF INH Q6H PRN for SHORTNESS OF BREATH, (Reported) Entered as Reported by: KARINA RAPHAEL on 08/06/20 1606 Aspirin (Aspirin EC) 81 Mg Tablet.dr, 81 MG PO DAILY, (Reported) Entered as Reported by: KARINA RAPHAEL on 12/10/22 1010 Atorvastatin Calcium (Atorvastatin Calcium) 40 Mg Tablet, 40 MG PO DAILY, (Reported) Entered as Reported by: CHAVA HERRERA on 12/22/22 1523 Bethanechol Chloride (Urecholine) 10 Mg Tablet, 10 MG PO QID, (Reported) Entered as Reported by: KARINA RAPHAEL on 12/10/22 1010 Cefdinir (Cefdinir) 300 Mg Capsule, 300 MG PO BID Prescribed by: ARIS FRANCIS on 12/24/22 1510 Gabapentin (Neurontin) 300 Mg Capsule, 300 MG PO TID, (Reported) Entered as Reported by: KARINA RAPHAEL on 08/01/22 1517 Metoprolol Succinate (Metoprolol Succinate) 25 Mg Tab.er.24h, 25 MG PO DAILY, (Reported) Entered as Reported by: KARINA RAPHAEL on 12/10/22 1010 Montelukast Sodium (Montelukast Sodium) 10 Mg Tablet, 10 MG PO DAILY, (Reported) Entered as Reported by: KARINA RAPHAEL on 12/10/22 1010 Pantoprazole Sodium (Pantoprazole Sodium) 40 Mg Tablet.dr, 40 MG PO DAILY, (Reported) Entered as Reported by: KARINA RAPHAEL on 12/10/22 1010 Prednisone (Prednisone) 50 Mg Tab, 50 MG PO DAILY Prescribed by: ARIS FRANCIS on 12/24/22 1510 Ranolazine (Ranolazine ER) 500 Mg Tab.er.12h, 500 MG PO BID, (Reported) Entered as Reported by: KARINA RAPHAEL on 12/10/22 1010 Review of Systems Review of Systems Constitutional: No chills, No diaphoresis, No malaise, No weakness EENTM: No ear pain, No blurred vision, No double vision, No mouth pain, No mouth swelling Respiratory: No cough; short of breath Cardiovascular: No chest pain Gastrointestinal: No abdominal pain, No diarrhea, No nausea, No vomiting Genitourinary: No decreased output, No discharge Musculoskeletal: No back pain, No joint pain Skin: No change in color, No change in hair/nails (JOHN FISCHER) All Other Systems Reviewed Negative Unless Noted: Yes (JOHN FISCHER) Past Zngplzp-Vjyecr-Aypbop Hx Immunizations Up To Date Tetanus Booster (TDap): Less than 5yrs PED Vaccines UTD: No First/Initial COVID19 Vaccinat: x2 (JOHN FISCHER) Seasonal Allergies Seasonal Allergies: No (JOHN FISCHER) Past Medical History Surgery/Hospitalization HX: bilateral hip replacement/removal, cardiac cath, appendectomy, chronic pain, mi, cad, htn, constipation, non-compliance Surgeries: Yes (BILAT HIP REPLACEMENTS X 22; WOUND DEBRIDEMENTS) Abdominal, Appendectomy, Cardiac, Defibrillator, Joint Replacement, Orthopedic, Pacemaker Respiratory: Yes Asthma, COPD Currently Using CPAP: No Currently Using BIPAP: No Cardiac: Yes (PACEMAKER, CARDIAC ARREST, SELF - REPORTED ID X 8; CHF) Atrial Fibrillation, Chronic Edema/Swelling, Coronary Artery Disease, Congenital Heart Disease, Heart Attack, Hypertension, Irregular Heartbeat Neurological: Yes Neuropathy Reproductive Disorders: No Sexually Transmitted Disease: No HIV/AIDS: No Genitourinary: Yes Neurogenic Bladder Gastrointestinal: Yes Abdominal Hernia, Chronic Constipation Musculoskeletal: Yes (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;CHRONIC PAIN) Arthritis, Chronic Back Pain, Fractures Endocrine: Yes Diabetes, Insulin dep HEENT: Yes Dysphagia Loss of Vision: Denies Hearing Impairment: Hard of Hearing Cancer: No Psychosocial: Yes Suicide Attempts, Depression Integumentary: Yes (recurrent wound issues) Recent Skin Changes Blood Disorders: No Adverse Reaction/Blood Tranf: Yes (HIGH FEVER AND CHILLS) (JOHN FISCHER) Family Medical History COPD Diabetes mellitus No Pertinent Family Hx Adopted, unknown FH SOCIAL HISTORY: -SMOKED IN THE PAST, QUIT -ETOH--LONG HISTORY OF ABUSE -DRUGS--EXTENSIVE ABUSE OF RX DRUGS, ESPECIALLY OPIATES PAST SURGICAL HISTORY: -MULTIPLE FAILED BILATERAL HIP REPLACEMENTS, WITH EVENTUAL REMOVAL OF BOTH FEMORAL HEADS -CARDIAC CATH 08/26/[address] LOPEZ: CORONARY ANGIOGRAPHY: Coronary calcification is seen. Left main coronary artery is free of significant disease. Left anterior descending artery does not exhibit significant disease. Left circumflex artery has 30% to 40% mid vessel stenosis at the site of the origin of a large obtuse marginal branch. IFR across this lesion is 0.96. This indicates that the lesion is hemodynamically nonsignificant. Right coronary artery is codominant with the left circumflex artery. It does not exhibit significant disease. LEFT VENTRICULAR ANGIOGRAPHY: Left ventricular angiography was carried out in the right anterior oblique projection. Global left ventricular systolic function is normal. No regional wall motion abnormalities seen. Left ventricular ejection fraction is approximately 60%. CONCLUSIONS: 1. Mild to moderate coronary artery disease, nonobstructive. 2. Normal global left ventricular systolic function with ejection fraction approximately 60%. 3. Normal left ventricular end-diastolic pressure. DISCUSSION AND RECOMMENDATIONS: Based on results of the study, it appears appropriate to continue a conservative approach. (JOHN FISCHER) Physical Exam Vital Signs - First Documented (LUMA WADE MD) Capillary Refill : (JOHN FISCHER) Height: 5'8.00" Weight: 170lbs. 8.0oz. 77.229282zl; 34.68 BMI Method:Stated General Appearance: WD/WN, no apparent distress Eyes: Bilateral Eye Normal Inspection, Bilateral Eye PERRL, Bilateral Eye EOMI HEENT: PERRL/EOMI, normal ENT inspection, TMs normal, pharynx normal Neck: non-tender, full range of motion Respiratory: chest non-tender, no respiratory distress, no accessory muscle use, wheezing Cardiovascular: regular rate, rhythm, no edema, no gallop, no JVD Gastrointestinal: normal bowel sounds, non tender, soft, no organomegaly Extremities: No normal range of motion; no pedal edema, no calf tenderness; No swelling Neurologic/Psychiatric: content development specialist II-XII nml as tested, no motor/sensory deficits, alert, normal mood/affect, oriented x 3 Skin: normal color, warm/dry (JOHN FISCHER) Progress/Results/Core Measures Suspected Sepsis SIRS Temperature: Pulse: Respiratory Rate: Blood Pressure / Mean: (JOHN FISCHER) Results/Orders Vital Signs/I&O 12/26/22 12/26/22 12/26/22 17:44 17:44 19:10 Temp 36.3 Pulse 98 96 Resp 17 17 B/P (MAP) 125/81 (96) 132/71 Pulse Ox 98 98 O2 Delivery Nasal Cannula Nasal Cannula O2 Flow Rate 3.00 3.00 (LUMA WADE MD) Vital Signs/I&O Capillary Refill : (JOHN FISCHER) Departure Communication (PCP) Reviewed previous ER visits, hospital H&P, notes, lab test, imaging. Patient was discharged to our facility 2 days ago. Patient was placed on cefdinir and prednisone after reviewing discharge summary. Patient has been taking his med ication. Patient called EMS regarding shortness of breath. History of COPD and CHF. Does wear 3 L oxygen daily. Patient was not found to have his oxygen on by EMS. Patient was placed on his oxygen and his symptoms improved as well after a albuterol treatment. Patient oxygen on arrival was 99% on 3 L. That improved a lot of his symptoms. Denies of any worsening cough but reports a chronic cough. Denies of any increased leg swelling. No appreciation of lower leg edema or swelling. Patient exam otherwise benign. Patient had a thorough work-up and was admitted on December 17, 2022 to [facility]. Patient states he feels much better at this time. Chest x-ray was ordered secondary to the shortness of breath and mild wheezing which was unremarkable and improved from previous visit. This appears chronic. there is no signs of respiratory distress. No retractions. Vital signs stable. no current chest pain or abdominal pain. Chronic incontinence. Patient Was due for a dose of his pain medication for his right shoulder. Patient was given a dose. Patient will be discharged back home continue with his medication regimen. Discussed the importance of wearing his oxygen. Continue with his albuterol nebulizer treatment. Follow-up your PCP in 2 to 3 days for evaluation (JOHN FISCHER) Impression Primary Impression: COPD (chronic obstructive pulmonary disease) Disposition: 01 HOME, SELF-CARE Condition: Stable Departure-Patient Inst. Decision time for Depature: 18:20 (JOHN FISCHER) Referrals: [facility] (PCP/Family) Primary Care Physician Patient Instructions: Chronic Obstructive Pulmonary Disease (COPD) (DC) Add. Discharge Instructions: Continue with your outpatient medications. Follow-up your primary care physician in 2 to 3 days for evaluation. If any worsening symptoms return back to the ED All discharge instructions reviewed with patient and/or family. Voiced understanding. ATTENDING PHYSICIAN NOTE: I was physically present as attending physician in the emergency department during the care of this patient, but I was not directly involved in the decision making or delivery of care for this patient. (LUMA WADE MD) JOHN FISCHER Dec 26, 2022 18:19 LUMA WADE MD Dec 29, 2022 11:50
--- NOTE | 2022-12-26 18:42 | Diagnostic Imaging Report ---
INDICATION: Shortness of breath. EXAMINATION: Chest, 12/26/2022. COMPARISON: 12/21/2022. FINDINGS: There is a left-sided pacemaker, stable in appearance. Heart is prominent. Pulmonary vasculature unremarkable. There is no focal infiltrate or effusion. No pneumothorax. IMPRESSION: No acute cardiopulmonary process. Dictated by: Dictated on workstation # [id number]
[2022-12-26 19:10] VITALS: BP 132/71
== END 2022-12-26 21:33 | disposition home or self-care (01) ==
LOC: EDUNIT# 17:42 → ER 17:43
DX: J44.9 Chronic obstructive pulmonary disease, unspecified (principal); Z87.891 Personal history of nicotine dependence; Z99.81 Dependence on supplemental oxygen
CPT/HCPCS: 71045

== ENCOUNTER 2023-01-01 13:01 | Observation (INO) | payer MEDICARE, MEDICAID ==
[~2023-01-01] VITALS: Ht 156 cm; Wt 107.9 kg
--- OUTSIDE RECORDS SUMMARY | 2023-01-01 15:04 | XMS REPORT ---
Author Author [facility] Address Unknown Phone Unavailable Care Team Providers Care Improvement Director Name Role Phone OLEGARIO ROSENTHAL Unavailable PROBLEMS Type Condition ICD9-CM Code [id number] Code Onset Dates Condition S tatus W/U Status Risk SNOMED Code Notes Problem Body mass index (BMI) 50.0-59.9, adult Z68.43 confirmed 334903331 Problem Opioid dependence, uncomplicated F11.20 conf irmed 42270043 Problem Gastroenteritis K52.9 confirmed 2537 4005 Problem Pain in right hip M25.551 confirmed 4 6604895 Problem Pain in left hip M25.552 confirmed 49 981488 Problem Chronic obstructive pulmonary disease, unspecified COPD ty pe J44.9 confirmed 12610544 Problem Chronic pain syndrome G89.4 confirmed 452066759 Problem Uncomplicated opioid dependence F11.20 confi rmed 87916020 Problem Current moderate episode of major depressive disorder without prior episode F32.1 confirmed 97616681 Problem Venous stasis I87.8 confirmed 454732 06 Problem Other proteinuria R80.8 confirmed 29 112552 Problem Skin ulcer, unspecified ulcer stage L98.499 confirmed 66095961 Problem Blood loss anemia D50.0 confirmed 41 6412376 Problem Cervical radiculopathy M54.12 confirmed 07275711 Problem Cervical myelopathy G95.9 confirmed 392510184 Problem Grieving F43.21 confirmed 325187626 Problem Pressure injury of right foot, stage 2 L89.892 confirmed 717648116 Problem Alcohol abuse with intoxication, unspecified F10.129 confirmed Problem Unspecified protein-calorie malnutrition E46 confirmed 031571998 Problem Non-pressure chronic ulcer o f skin of other sites with unspecified severity L98.499 confirmed 15833829 Problem 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 c onfirmed Problem Other chronic pain G89.29 confirmed 8 9882212 Problem Hypertensive heart disease with heart failure I11.0 confirmed 16888111 Problem Arthritis M19.90 confirmed 8960456 Problem Low back pain M54.5 confirmed 019559 009 Problem Myocardial infarction type 2 I21.A1 confirme d [id number] Problem Osteonecrosis M87.9 confirmed 571257 003 Problem Heart failure I50.9 confirmed 813981 07 Problem Atrial fibrillation I48.91 confirmed 76736551 ALLERGIES Allergen (clinical drug ingredient) Drug/Non Drug Allergy do cumented on EMR Reaction Allergy Type Onset Date Status codeine Codeine Sulfate([facility] Code:[address]-84) hives Drug Al lergy Active ENCOUNTERS from 1950 to 2022-12-25 Encounter Location Date Provider Diagnosis [facility] [address] [facility] [id number] [place] [address] Dec, OLEGARIO ROSENTHAL Chronic pain syndrom e G89.4 IMMUNIZATIONS Vaccine Route Administration Date Status tdap (history) Unknown December 29, 2015 Administered PRIVATE FLUZONE HIGH DOSE QUAD 0.7ML (65 and UP) 2020 IM Int ramuscular Jul 23, 2021 Administered COVID-19, SUNITHA, 0.5mL IM Intramuscular April 26, 2021 Admini stered pneumovax ppsv 23 (history) Unknown Sep 17, 1999 Admi nistered influenza IIV4 (history) Unknown Oct 06, 2016 Adminis tered influenza (history) Unknown Aug 07, 2020 Administered Influenza (split), preservative free, 6-35 months Unknown Aug 23, 1999 Administered PRIVATE FLULAVAL QUAD 0.5ML (6 MO AND UP) 2018 IM Intramuscular Aug 01, 2019 Administered PRIVATE FLULAVAL QUAD 0.5ML (6 MO AND UP) 2018 IM Intramuscular Aug 30, 2018 Administered PRIVATE FLULAVAL QUAD 0.5ML (6 MO AND UP) 2018 Unknown D 2015 Administered FLUZONE QUAD (6-35 MO) 2016 Unknown Aug 08, 2022 Admi nistered FLUZONE QUAD (6-35 MO) 2016 Unknown Aug 07, 2020 Admi nistered PRIVATE PCV 13 (PREVNAR) IM Intramuscular Aug 30, 2018 Admini stered Influenza (split), preservative free, 6-35 months Unknown Aug 18, 2008 Administered Influenza (split), preservative free, 6-35 months Unknown Aug 20, 2007 Administered SOCIAL HISTORY Sex Assigned At : Social History Observation Description Sex Assigned At Unknown Alcohol Screen (Audit-C) Question Answer Notes Did you have a drink containing alcohol in the past year? Ye s Points 5 Interpretation Positive How often did you have 6 or more drinks on one occasio n in the past year? Never (0 points) How many drinks did you have on a typica l day when you were drinking in the past year? 3 or 4 (1 point) How often did you have a drink containing alcohol in t he past year? Four or more times a week (4 points) DAST-10 (2020 Edition) Question Answer Notes 1. Have you used drugs other than those required for medical reasons? No 2. Do you abuse more than one drug at a time? No 3. Are you always able to stop using drugs when you want to? Yes 4. Have you had "blackouts" or "flashbacks" as a result of d rug use? No 5. Do you ever feel bad or guilty about your drug use? No 6. Does your spouse (or parents) ever co mplain about your involvement with drugs? No 7. Have you neglected your family because of your use of donna gs? No 8. Have you engaged in illegal activities in order to obtain drugs? No 9. Have you ever experienced withdrawal symptoms (felt sick) when you stopped taking drugs? No 10. Have you had medical problems as a r esult of your drug use (e.g., memory loss, hepatitis, convulsions, bleeding etc.)? No Results: 0 Interpretation of Score: No problems reported REASON FOR REFERRAL No Information VITAL SIGNS No information MEDICATIONS Medication SIG (Take, Route, Frequency, Duration) Notes Start Da te End Date Status predniSONE 10 MG (21) take 4 tabs (40mg) daily, de crease by 1 tab (10mg) daily Orally Once a day per phone call Oct, Active Furosemide 40 MG 1 tablet Orally Once a day for 30 days P atient states taking as needed Active Questran 4 GM 1 packet mixed with water or non-carbonated drink Orally 2 times a day Oct, Not-Taking levoFLOXacin 750 MG 1 tablet at 1100 Orally Once a day per phone call Oct, Active Nitroglycerin 0.4 MG as directed Sublingual per phone call Oct, Active Albuterol Sulfate HFA 108 (90 Base) MCG/ACT INHALE TWO (2) PUFFS BY MOUTH EVERY SIX (6) HOURS NEEDED Inhalation every 4-6 hours as needed for 25 days per phone call Active Montelukast Sodium 10 MG 1 tablet at bedtime Orally Once a day p er phone call Oct, Active Aspirin EC 81 MG 1 tablet Orally Once a day per phone call Oct, Active Phenazopyridine HCl 100 MG 1 tablet after meals Orally Three times a day Patient states he does not have medication Oct, Activ e Power Wheelchair N/A use for mobility while up per phone call Apr, Active Ibuprofen 200 MG 2 tablets with food or milk as needed Or ally every 8 hrs per phone call Oct, Active Amoxicillin 500 MG 1 capsule Orally every [address] [facility] [address] [facility] Jul, Not-Taking Pantoprazole Sodium 40 MG 1 tablet at 700 Orally Once a day per phone call Oct, Active Gabapentin 300 MG 1 capsule Orally Three times daily for 30 days per phone call Active Buprenorphine HCl 2 MG 2 tablets Sublingual Once a day for 7 days Pt. states not taking Apr, Not-Taking Zoloft 50 MG 1 tablet Orally Once a day; increase to 2 tabs after 2 weeks for 30 day(s) PLEASE DELIVER February, Not-Taking Ambien 10 mg 1 tablet at bedtime as needed Orally Once a day for 28 days Jul, Not-Taking Multivitamin - 1 tablet Orally Once a day Oct, Not-Taking Metoprolol Succinate ER 25 MG 1 tablet Orally Once a day per riley ne call Oct, Active Bethanechol Chloride 10 MG 1 tablet 1 hour before meal s and at bedtime Orally Four times a day per phone call Oct, Active oxyCODONE HCl 5 MG 1 tablet as needed Orally every 4 hrs Pa tient states taking 10 mg Oct, Active Ranolazine ER 500 MG 1 tablet Orally Twice a day per phone call 2022 Active PROCEDURES No Information RESULTS No Results REASON FOR VISIT controlled refill 01/22 MEDICAL (GENERAL) HISTORY Type Description Date Medical History avascular necrosis Medical History pacemaker Medical History 22 hip replacements Medical History debrevement Medical History chronic fatigue and weakness Surgical History 11 replacements on right and 11 replacem ents on left hips Surgical History back surgery ruptured disk 1973 Surgical History debrevement 03/17/2019 Hospitalization History Surgery(s) only Hospitalization History infection in left leg 06/21-06/25/18 Hospitalization History [facility] 07/2019 Hospitalization History pacemaker malfunction - vch - 08/09/20 Hospitalization History 4 days vc 10/[address] [facility] idium difficile colitis, UTI, chronic pain 12/31-01/02/22 Hospitalization History [facility]-Diarrhea, Pressure ulcers 07/31-08/04/2022 Hospitalization History Hematoma, COPD 08/31/22-09/02/22 Hospitalization History [facility]-NSTEMI, Bilateral hip dysfunction, COPD exacerbation, Acute UTI 11/21-11/25/2022 Goals Section No Information Health Concerns No Information MEDICAL EQUIPMENT No Information MENTAL STATUS No Information FUNCTIONAL STATUS No Information ASSESSMENTS Encounter Date Diagnosis Assessment Notes Treatment Notes Treatm ent Clinical Notes Dec, Chronic pain syndrome (ICD-10 - G89.4) PLAN OF TREATMENT No Information Insurance Providers Payer Name Payer Address Payer Phone Insured Name Patient Relati onship to Insured Coverage Start Date Coverage End Date Subscriber Number Group Nu mber [employer] [address] [address] [facility] [address] Nasir Jalloh A Self - patient is the insured [id number] [employer] [address] [facility] [address] Nasir Jalloh A Self - patient is the insured [id number] [address] [facility] Dual Medicare Complete HMO [address] [facility] [address] Nasir Jalloh A Self - patient is the insured [id number] MEDICARE Part A [address] [facility] [address] Nasir Jalloh A Self - patient is the insured [id number] MEDICATIONS ADMINISTERED Medication Instructions Date of Administration Dosage ROCEPHIN 1 GM (IM) Jan, 1 g
--- OUTSIDE RECORDS SUMMARY | 2023-01-01 15:04 | XMS REPORT ---
Author Author [facility] Address Unknown Phone Unavailable Care Team Providers Care Forming Machine Operator Name Role Phone OLEGARIO ROSENTHAL Unavailable PROBLEMS Type Condition ICD9-CM Code AUQ62-AE Code Onset Dates Condition S tatus W/U Status Risk SNOMED Code Notes Problem Body mass index (BMI) 50.0-59.9, adult Z68.43 confirmed 655891823 Problem Opioid dependence, uncomplicated F11.20 conf irmed 02604772 Problem Gastroenteritis K52.9 confirmed 2537 4005 Problem Pain in right hip M25.551 confirmed 4 3240595 Problem Pain in left hip M25.552 confirmed 49 243985 Problem Chronic obstructive pulmonary disease, unspecified COPD ty pe J44.9 confirmed 80854305 Problem Chronic pain syndrome G89.4 confirmed 667646466 Problem Uncomplicated opioid dependence F11.20 confi rmed 77623538 Problem Current moderate episode of major depressive disorder without prior episode F32.1 confirmed 25140024 Problem Venous stasis I87.8 confirmed 370738 06 Problem Other proteinuria R80.8 confirmed 29 217860 Problem Skin ulcer, unspecified ulcer stage L98.499 confirmed 30095138 Problem Blood loss anemia D50.0 confirmed 41 0158491 Problem Cervical radiculopathy M54.12 confirmed 07833056 Problem Cervical myelopathy G95.9 confirmed 899720690 Problem Grieving F43.21 confirmed 299173692 Problem Pressure injury of right foot, stage 2 L89.892 confirmed 294857975 Problem Alcohol abuse with intoxication, unspecified F10.129 confirmed Problem Unspecified protein-calorie malnutrition E46 confirmed 312165193 Problem Non-pressure chronic ulcer o f skin of other sites with unspecified severity L98.499 confirmed 20709565 Problem 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 c onfirmed Problem Other chronic pain G89.29 confirmed 8 1467013 Problem Hypertensive heart disease with heart failure I11.0 confirmed 43834704 Problem Arthritis M19.90 confirmed 0133691 Problem Low back pain M54.5 confirmed 704715 009 Problem Myocardial infarction type 2 I21.A1 confirme d 43361693002487981 Problem Osteonecrosis M87.9 confirmed 704576 003 Problem Heart failure I50.9 confirmed 473090 07 Problem Atrial fibrillation I48.91 confirmed 42819525 ALLERGIES Allergen (clinical drug ingredient) Drug/Non Drug Allergy do cumented on EMR Reaction Allergy Type Onset Date Status codeine Codeine Sulfate([facility] Code:[address]-87) hives Drug Al lergy Active ENCOUNTERS from 1950 to 2022-12-11 Encounter Location Date Provider Diagnosis [facility] [address] [facility] [id number] [address] [place] [address] 16 Dec, 2020 OLEGARIO ROSENTHAL Chronic pain syndrom e G89.4 IMMUNIZATIONS Vaccine Route Administration Date Status tdap (history) Unknown December 29, 2015 Administered COVID-19, SUNITHA, 0.5mL IM Intramuscular April 26, 2021 Admini stered PRIVATE FLUZONE HIGH DOSE QUAD 0.7ML (65 and UP) 2020 IM Int ramuscular Jul 23, 2021 Administered pneumovax ppsv 23 (history) Unknown Sep 17, [...] MG 1 capsule Orally every [address] [facility] [address] [facility] Jul, Not-Taking Pantoprazole Sodium 40 [...] Information RESULTS No Results REASON FOR VISIT stolen medication 01/08 MEDICAL (GENERAL) HISTORY Type Description Date Medical [...] History 4 days vc 10/14 Hospitalization History [facility] idium difficile colitis, UTI, chronic pain 12/31-01/02/22 Hospitalization History [facility]-Diarrhea, Pressure ulcers 07/31-08/04/2022 Hospitalization History Hematoma, COPD 08/31/22-09/02/22 Hospitalization History [facility]-NSTEMI, Bilateral hip dysfunction, COPD exacerbation, Acute [...] End Date Subscriber Number Group Nu mber [facility] Dual Medicare Complete HMO [address] [facility] [address] Nasir Jalloh A Self - patient is the insured [id number] [facility] MEDICARE Part A [address] [facility] [address] Nasir Jalloh A Self - patient is the insured [id number] [employer] [address] [address] [facility] [address] Nasir Jalloh A Self - patient is the insured [id number] [address] [facility] [address] Nasir Jalloh A Self - patient is the insured [id number] MEDICATIONS ADMINISTERED Medication Instructions Date of Administration Dosage ROCEPHIN 1 GM (IM) Jan, 1 g
--- OUTSIDE RECORDS SUMMARY | 2023-01-01 15:04 | XMS REPORT ---
Author Author [facility] Address Unknown Phone Unavailable Care Team Providers Care Second Steward Name Role Phone OLEGARIO ROSENTHAL Unavailable PROBLEMS Type Condition ICD9-CM Code RUI18-MK Code Onset Dates Condition S tatus W/U Status Risk SNOMED Code Notes Problem Body mass index (BMI) 50.0-59.9, adult Z68.43 confirmed 328189840 Problem Opioid dependence, uncomplicated F11.20 conf irmed 19045305 Problem Gastroenteritis K52.9 confirmed 2537 4005 Problem Pain in right hip M25.551 confirmed 4 2669117 Problem Pain in left hip M25.552 confirmed 49 551560 Problem Chronic obstructive pulmonary disease, unspecified COPD ty pe J44.9 confirmed 28810005 Problem Chronic pain syndrome G89.4 confirmed 167362218 Problem Uncomplicated opioid dependence F11.20 confi rmed 22191601 Problem Current moderate episode of major depressive disorder without prior episode F32.1 confirmed 92209847 Problem Venous stasis I87.8 confirmed 945350 06 Problem Other proteinuria R80.8 confirmed 29 495282 Problem Skin ulcer, unspecified ulcer stage L98.499 confirmed 82624307 Problem Blood loss anemia D50.0 confirmed 41 2150098 Problem Cervical radiculopathy M54.12 confirmed 81689357 Problem Cervical myelopathy G95.9 confirmed 442103959 Problem Grieving F43.21 confirmed 262303514 Problem Pressure injury of right foot, stage 2 L89.892 confirmed 054478950 Problem Alcohol abuse with intoxication, unspecified F10.129 confirmed Problem Unspecified protein-calorie malnutrition E46 confirmed 145015982 Problem Non-pressure chronic ulcer o f skin of other sites with unspecified severity L98.499 confirmed 23198030 Problem 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 c onfirmed Problem Other chronic pain G89.29 confirmed 8 7157127 Problem Hypertensive heart disease with heart failure I11.0 confirmed 03691860 Problem Arthritis M19.90 confirmed 2485599 Problem Low back pain M54.5 confirmed 530900 009 Problem Myocardial infarction type 2 I21.A1 confirme d 96097315175710299 Problem Osteonecrosis M87.9 confirmed 486372 003 Problem Heart failure I50.9 confirmed 181138 07 Problem Atrial fibrillation I48.91 confirmed 97501935 ALLERGIES Allergen (clinical drug ingredient) Drug/Non Drug Allergy do cumented on EMR Reaction Allergy Type Onset Date Status codeine Codeine Sulfate([facility] Code:[address]-30) hives Drug Al lergy Active ENCOUNTERS from 1950 to 2022-12-11 Encounter Location Date Provider Diagnosis [facility] [address] [facility] [id number] [address] [place] [address] Dec, OLEGARIO ROSENTHAL IMMUNIZATIONS Vaccine Route Administration Date Status tdap [...] FLULAVAL QUAD 0.5ML (6 MO AND UP) 2019 IM Intramuscular Aug 30, 2018 Administered PRIVATE [...] MG 1 capsule Orally every [address] [facility] [address] Jul, Not-Taking Pantoprazole Sodium 40 [...] Information RESULTS No Results REASON FOR VISIT return call MEDICAL (GENERAL) HISTORY Type Description Date Medical [...] infection in left leg 06/21-06/25/18 Hospitalization History [facility] 07/2019 Hospitalization History pacemaker malfunction - vch - 08/09/20 Hospitalization [address] [facility] 10/14 Hospitalization History [facility] idium difficile colitis, UTI, chronic pain 12/31-01/02/22 Hospitalization History [facility]-Diarrhea, Pressure ulcers 07/31-08/04/2022 Hospitalization History Hematoma, COPD 08/31/22-09/02/22 Hospitalization History [facility]g-NSTEMI, Bilateral hip dysfunction, COPD exacerbation, Acute UTI 11/21-11/25/2022 Goals Section No Information Health Concerns No Information MEDICAL EQUIPMENT No Information MENTAL STATUS No Information FUNCTIONAL STATUS No Information ASSESSMENTS No Information PLAN OF TREATMENT No Information Insurance Providers Payer Name Payer Address Payer Phone Insured Name Patient Relati onship to Insured Coverage Start Date Coverage End Date Subscriber Number Group Nu mber [employer] [address] [address] [facility] [address] Nasir Jalloh A Self - patient is the insured [id number] [facility] MEDICARE Part A FI [address] [facility] [address] Nasir Jalloh A Self - patient is the insured [id number] [employer] [address] [facility] [address] Nasir Jalloh A Self - patient is the insured [id number] [facility] Dual Medicare Complete HMO [address] [facility] [address] Nasir Jalloh A Self - patient is the insured [id number] [id number] MEDICATIONS ADMINISTERED Medication Instructions Date of Administration Dosage ROCEPHIN 1 GM (IM) Jan, 1 g
--- OUTSIDE RECORDS SUMMARY | 2023-01-01 15:04 | XMS REPORT | Clinical Summary ---
Author Author [facility] Organization [facility] Address Unknown Phone Unavailable Care Team Providers Care Addressograph Operator Name Role Phone Traci Mota MD Unavailable Jonathan Beasley MD PCP Jaja Lujan MD Unavailable Skylar Stevens PA-C Unavailable Source Comments Some departments are not documenting in the electronic medical record. If you d o not see the information that you expected, contact Release of Information in [facility] Information Management department at [phone] for further assistan ce in locating additional records.[facility] Allergies Comments Active Allergy Reactions Severity Noted [...] directed daily. Active Problems Problem Noted Date TN (myocardial infarction) 04/04/2014 Pacemaker 04/04/2014 Asthma 04/04/2014 [...] Date Tobacco Use Types Packs/Day Years Used Smoking Tobacco: Every Cigarettes 0.5 35 Day Comments Alcohol Use Standard Drinks/Week Yes 1 (1 standard drink = 0.6 o z pure alcohol) Sex Assigned at Date Recorded Not on file Obstetrics History Last Filed Vital Signs Reading Time Taken Comments Vital Sign 147/78 11/23/2012 8:30 AM [employer]OPLESO[employer] ADMINISTRATOR Blood Pressure 63 11/23/2012 8:30 AM [employer]LES[employer] ADMINISTRATOR Pulse 36.8 C (98.3 F) 11/23/2012 8:30 AM [employer]LES[employer] ADMINISTRATOR Temperature - - Respiratory Rate 97% 11/23/2012 8:30 AM [employer]OPLESOFT ADMINISTRATOR Oxygen Saturation - - Inhaled Oxygen Concentration 86.2 kg (190 lb) 11/19/2012 9:57 AM [employer]OPLESOFT ADMINISTRATOR Weight 172.7 cm (5' 8") 11/19/2012 9:57 AM [employer]OPLES[employer] ADMINISTRATOR Height 28.89 11/19/2012 9:57 AM PEOPLESO[employer] ADMINISTRATOR Body Mass Index Plan of Treatment Health Maintenance Due Date Last Done Comments MEDICARE ANNUAL WELLNESS 1950 VISIT COVID-19 VACCINE (#1) 05/18/1951 DTAP/TDAP VACCINES (1 - 1970 Tdap) HEPATITIS C SCREENING 1970 PHYSICAL (COMPREHENSIVE) 1970 EXAM COLORECTAL CANCER 1997 SCREENING SHINGLES RECOMBINANT 2002 VACCINE (1 of 2) ABDOMINAL AORTIC ANEURYSM 2017 SCREENING PNEUMOCOCCAL VACCINE (1 - 2017 PCV) INFLUENZA VACCINE (#1) 2022 ADVANCED CARE PLANNING 10/26/2022 DISCUSSION AND DOCUMENTATION DEPRESSION SCREENING 10/26/2022 Medical Devices Device Identifier Shelf Expiration Date Model / Serial / L ot Implanted Type Area Manufactur er Pacemaker Pacemaker Results Not on filefrom Last 3 Months Insurance Type Payer Benefit Subscriber ID Effective Phone Address Plan / Dates Group Medicare MEDICARE MEDICARE [id number] 1986-P [phone] [place] [address] [place] [id number] 2006- [phone] [address] [place] [address] MEDICAID Present [address] [place] [address] Advance Directives Date Inactivated Comments Code Status Date Activated 11/23/2012 4:23 PM Full Code 11/19/2012 5:11 PM Comments Question Answer Provider has No, discussion not necessar y based on Dx discussed Code Status w/Patient or Family? Care Teams Start Date End Date Addressograph Operator Relationship Specialty 01/24/14 Jonathan Beasley MD PCP - [address] [place] [address] 08/26/10 Traci Mota MD [address] [id number] 04/04/14 Jaja Lujan MD Psychiatry [address] [facility] [place] [address] 04/09/15 Skylar Stevens, PA-C Surgery, [address] [facility] [address] [place] [address]
--- OUTSIDE RECORDS SUMMARY | 2023-01-01 15:07 | XMS REPORT ---
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 Name Role Phone OLEGARIO ROSENTHAL Unavailable PROBLEMS Type Condition ICD9-CM Code VWT07-OG Code Onset Dates Condition S tatus W/U Status Risk SNOMED Code Notes Problem Body mass index (BMI) 50.0-59.9, adult Z68.43 confirmed 662368736 Problem Opioid dependence, uncomplicated F11.20 conf irmed 08474946 Problem Gastroenteritis K52.9 confirmed 2537 4005 Problem Pain in right hip M25.551 confirmed 4 5170121 Problem Pain in left hip M25.552 confirmed 49 931561 Problem Chronic obstructive pulmonary disease, unspecified COPD ty pe J44.9 confirmed 87056563 Problem Chronic pain syndrome G89.4 confirmed 412603571 Problem Uncomplicated opioid dependence F11.20 confi rmed 32852478 Problem Current moderate episode of major depressive disorder without prior episode F32.1 confirmed 38098798 Problem Venous stasis I87.8 confirmed 832526 06 Problem Other proteinuria R80.8 confirmed 29 560163 Problem Skin ulcer, unspecified ulcer stage L98.499 confirmed 44719969 Problem Blood loss anemia D50.0 confirmed 41 6368700 Problem Cervical radiculopathy M54.12 confirmed 22880271 Problem Cervical myelopathy G95.9 confirmed 548292218 Problem Grieving F43.21 confirmed 662153050 Problem Pressure injury of right foot, stage 2 L89.892 confirmed 830127168 Problem Alcohol abuse with intoxication, unspecified F10.129 confirmed Problem Unspecified protein-calorie malnutrition E46 confirmed 153640816 Problem Non-pressure chronic ulcer o f skin of other sites with unspecified severity L98.499 confirmed 36451662 Problem 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 c onfirmed Problem Other chronic pain G89.29 confirmed 8 0464762 Problem Hypertensive heart disease with heart failure I11.0 confirmed 54048314 Problem Arthritis M19.90 confirmed 4996739 Problem Low back pain M54.5 confirmed 300959 009 Problem Myocardial infarction type 2 I21.A1 confirme d Problem Osteonecrosis M87.9 confirmed 030507 003 Problem Heart failure I50.9 confirmed 733255 07 Problem Atrial fibrillation I48.91 confirmed 11275898 ALLERGIES Allergen (clinical drug ingredient) Drug/Non Drug Allergy do cumented on EMR Reaction Allergy Type Onset Date Status codeine Codeine Sulfate([facility] Code:[address]-81) hives Drug Al lergy Active ENCOUNTERS from 1950 to 2022-11-25 Encounter Location Date Provider Diagnosis [facility] [address] [facility] [id number] [place] [address] Dec, OLEGARIO ROSENTHAL Chronic pain syndrom e [...] drink containing alcohol in the past year? No Points 0 Interpretation Negative PHQ2 Question Answer Notes In the last 2 weeks, how often have you had little interest or pleasure in doing things? Not at all In the last 2 weeks, how often have you been feeling down, depressed, or hopeless? Several days Total PHQ2 Score 1 REASON FOR REFERRAL No Information VITAL SIGNS No information MEDICATIONS Medication SIG (Take, Route, Frequency, Duration) Notes Start Da te End Date Status Power Wheelchair N/A use for mobility while up Apr, 9 Active Albuterol Sulfate HFA 108 (90 Base) MCG/ACT INHALE TWO (2) PUFFS BY MOUTH EVERY SIX (6) HOURS NEEDED for 25 A ctive Ambien 10 mg 1 tablet at bedtime as needed Orally Once a day for 28 days Jul, Active Questran 4 GM 1 packet mixed with water or non-carbonated drink Orally 2 times a day Oct, Not-Taking Amoxicillin 500 MG 1 capsule Orally every [address] [place] [address] Jul, Active Buprenorphine HCl 2 MG 2 tablets Sublingual Once a day for 7 days Pt. states not taking Apr, Not-Taking Gabapentin 300 MG TAKE ONE (1) CAPSULE BY MOUTH THREE (3) TIMES DAILY for 30 Active Furosemide 40 MG TAKE ONE (1) TABLET BY MOUTH ONCE DAILY NEEDED FOR SWELLING for 30 Pt. states not taking Not-Taking Zoloft 50 MG 1 tablet Orally Once a day; increase to 2 tabs after 2 weeks for 30 day(s) PLEASE DELIVER February, Not-Taking PROCEDURES No Information RESULTS No Results REASON FOR VISIT control 12/31 MEDICAL (GENERAL) HISTORY Type Description Date Medical [...] vch - 08/09/20 Hospitalization History 4 days [facility] 10/[address] [facility] idium difficile colitis, UTI, chronic pain 12/31-01/02/22 Hospitalization History [place] [facility] urg-Diarrhea, Pressure ulcers 07/31-08/04/2022 Hospitalization History Hematoma, COPD 08/31/22-09/02/22 Goals Section No Information Health Concerns No Information MEDICAL EQUIPMENT No Information MENTAL STATUS No Information FUNCTIONAL STATUS No Information ASSESSMENTS Encounter Date Diagnosis Assessment Notes Treatment Notes Treatm ent Clinical Notes Dec, Chronic pain syndrome (ICD-10 - G89.4) PLAN OF TREATMENT Medication Medication Name Sig Start Date Stop Date Albuterol Sulfate HFA 108 (90 Base) MCG/ACT INHALE TWO (2) PUFFS BY MOUTH EVERY SIX (6) HOURS NEEDED for 25 Ambien 10 mg 1 tablet at bedtime as needed Orally Onc e a day for 28 days Jul, Next Appt Details Provider Name:OLEGARIO ROSENTHAL, 6 02:40:00 PM, [address] [facility], [id number], [place], [address], Insurance Providers Payer Name Payer Address Payer Phone Insured Name Patient Relati onship to Insured Coverage Start Date Coverage End Date Subscriber Number Group Nu mber NGS MEDICARE Part A [address] [facility] [address] Nasir Jalloh A Self - patient is the insured [id number] [employer] [address] [address] [facility] [address] Nasir Jalloh A Self - patient is the insured [id number] [address] [address] [facility] [address] Nasir Jalloh A Self - patient is the insured [id number] [facility] Dual Medicare Complete HMO [address] [facility] [address] Nasir Jalloh A Self - patient is the insured [id number] KSDSNP MEDICATIONS ADMINISTERED Medication Instructions Date of Administration Dosage ROCEPHIN 1 GM (IM) Jan, 1 g
--- OUTSIDE RECORDS SUMMARY | 2023-01-01 15:07 | XMS REPORT ---
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 Name Role Phone OLEGARIO ROSENTHAL Unavailable PROBLEMS Type Condition ICD9-CM Code IYE50-LF Code Onset Dates Condition S tatus W/U Status Risk SNOMED Code Notes Problem Body mass index (BMI) 50.0-59.9, adult Z68.43 confirmed 441282600 Problem Opioid dependence, uncomplicated F11.20 conf irmed 23119415 Problem Gastroenteritis K52.9 confirmed 2537 4005 Problem Pain in right hip M25.551 confirmed 4 4319631 Problem Pain in left hip M25.552 confirmed 49 972238 Problem Chronic obstructive pulmonary disease, unspecified COPD ty pe J44.9 confirmed 22616642 Problem Chronic pain syndrome G89.4 confirmed 093053171 Problem Uncomplicated opioid dependence F11.20 confi rmed 08920470 Problem Current moderate episode of major depressive disorder without prior episode F32.1 confirmed 60910765 Problem Venous stasis I87.8 confirmed 865365 06 Problem Other proteinuria R80.8 confirmed 29 852149 Problem Skin ulcer, unspecified ulcer stage L98.499 confirmed 77874660 Problem Blood loss anemia D50.0 confirmed 41 3292657 Problem Cervical radiculopathy M54.12 confirmed 96482036 Problem Cervical myelopathy G95.9 confirmed 137413385 Problem Grieving F43.21 confirmed 843306846 Problem Pressure injury of right foot, stage 2 L89.892 confirmed 763810588 Problem Alcohol abuse with intoxication, unspecified F10.129 confirmed Problem Unspecified protein-calorie malnutrition E46 confirmed 237973014 Problem Non-pressure chronic ulcer o f skin of other sites with unspecified severity L98.499 confirmed 62029868 Problem 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 c onfirmed Problem Other chronic pain G89.29 confirmed 8 6652704 Problem Hypertensive heart disease with heart failure I11.0 confirmed 57449520 Problem Arthritis M19.90 confirmed 6750414 Problem Low back pain M54.5 confirmed 679906 009 Problem Myocardial infarction type 2 I21.A1 confirme d Problem Osteonecrosis M87.9 confirmed 588953 003 Problem Heart failure I50.9 confirmed 688072 07 Problem Atrial fibrillation I48.91 confirmed 51195525 ALLERGIES Allergen (clinical drug ingredient) Drug/Non Drug Allergy do cumented on EMR Reaction Allergy Type Onset Date Status codeine Codeine Sulfate([facility] Code:[address]-58) hives Drug Al lergy Active ENCOUNTERS from 1950 to 2022-12-07 Encounter Location Date Provider Diagnosis [facility] [address] [facility] [id number] [place] [address] Dec, OLEGARIO ROSENTHAL Cervical myelopathy G95.9 IMMUNIZATIONS Vaccine Route Administration Date Status Influenza (split), preservative free, 6-35 months Unknown Aug 18, 2008 Administered Influenza (split), preservative free, 6-35 months Unknown Aug 20, 2007 Administered Influenza (split), preservative free, 6-35 months Unknown Aug 23, 1999 Administered PRIVATE FLULAVAL QUAD 0.5ML (6 MO AND UP) 2018 Unknown D 2015 Administered FLUZONE QUAD (6-35 MO) 2016 Unknown Aug 08, 2022 Admi nistered FLUZONE QUAD (6-35 MO) 2016 Unknown Aug 07, 2020 Admi nistered PRIVATE PCV 13 (PREVNAR) IM Intramuscular Aug 30, 2018 Admini stered pneumovax ppsv 23 (history) Unknown Sep 17, 1999 Admi nistered influenza IIV4 (history) Unknown Oct 06, 2016 Adminis tered influenza (history) Unknown Aug 07, 2020 Administered tdap (history) Unknown December 29, 2015 Administered PRIVATE FLUZONE HIGH DOSE QUAD 0.7ML (65 and UP) 2020 IM Int ramuscular Jul 23, 2021 Administered COVID-19, SUNITHA, 0.5mL IM Intramuscular April 26, 2021 Admini stered PRIVATE FLULAVAL QUAD 0.5ML (6 MO AND UP) 2018 IM Intramuscular Aug 01, 2019 Administered PRIVATE FLULAVAL QUAD 0.5ML (6 MO AND UP) 2018 IM Intramuscular Aug 30, 2018 Administered SOCIAL HISTORY Sex Assigned At : [...] REASON FOR REFERRAL No Information VITAL SIGNS Height 68 in Dec, Weight 255.1 lbs Dec, Weight-kg 115.71 kg Dec, Temperature 97.4 degrees Fahrenheit Dec, Heart Rate 89 bpm Dec, Respiratory Rate 20 bpm Dec, BMI 38.78 kg/m2 Dec, Blood pressure systolic 130 mmHg Dec, Blood pressure diastolic 72 mmHg Dec, MEDICATIONS Medication SIG (Take, Route, Frequency, Duration) [...] MG 1 capsule Orally every [address] [place] [address] Jul, Not-Taking Pantoprazole Sodium 40 [...] as needed Orally every 4 hrs Pa taryn states taking 10 mg Oct, Active Ranolazine ER 500 MG 1 tablet Orally Twice a day per phone call 2022 Active PROCEDURES No Information RESULTS No Results REASON FOR VISIT chmari f/u - says he has lost off feelings in his hands/ arms hurt and cant raise above head/ keeps dropping things because he cant hold on to items- [facility] MEDICAL (GENERAL) HISTORY Type Description Date Medical [...] vch - 08/09/20 Hospitalization History [facility] 10/14 Hospitalization History [facility] idium difficile colitis, UTI, chronic pain 12/31-01/02/22 Hospitalization History [place] [facility] urg-Diarrhea, Pressure ulcers 07/31-08/04/2022 Hospitalization History Hematoma, COPD 08/31/22-09/02/22 Hospitalization History [facility] [facility]g-NSTEMI, Bilateral hip dysfunction, COPD exacerbation, Acute UTI 11/21-11/25/2022 Goals Section No Information Health Concerns No Information MEDICAL EQUIPMENT No Information MENTAL STATUS No Information FUNCTIONAL STATUS No Information ASSESSMENTS Encounter Date Diagnosis Assessment Notes Treatment Notes Treatm ent Clinical Notes Dec, Cervical myelopathy (ICD-10 - G95.9) PLAN OF TREATMENT Next Appt Details Will call after MRI Reason: Provider Name:OLEGARIO ROSENTHAL, 2022-11- 7 02:00:00 PM, [address] [facility], [id number], [place], [address], Insurance Providers Payer Name Payer Address Payer Phone Insured Name Patient Relati onship to Insured Coverage Start Date Coverage End Date Subscriber Number Group Penny JIN [employer] [address] [facility] [address] Nasir Jalloh A Self - patient is the insured [id number] 2003 [facility] Dual Medicare Complete HMO [address] [facility] [address] Nasir Jalloh A Self - patient is the insured [id number] KSDSNP [facility] MEDICARE Part A [address] [facility] [address] Nasir Jalloh A Self - patient is the insured [id number] [facility] [address] [address] [facility] [address] Nasir Jalloh A Self - patient is the insured [id number] MEDICATIONS ADMINISTERED Medication Instructions Date of Administration Dosage ROCEPHIN 1 GM (IM) Jan, 1 g
--- OUTSIDE RECORDS SUMMARY | 2023-01-01 15:07 | XMS REPORT ---
Author Author [facility] Address Unknown Phone Unavailable Care Team Providers Care Fieldwork Coordinator Name Role Phone OLEGARIO ROSENTHAL Unavailable PROBLEMS Type Condition ICD9-CM Code EHE41-BZ Code Onset Dates Condition S tatus W/U Status Risk SNOMED Code Notes Problem Body mass index (BMI) 50.0-59.9, adult Z68.43 confirmed 377761534 Problem Opioid dependence, uncomplicated F11.20 conf irmed 89875892 Problem Gastroenteritis K52.9 confirmed 2537 4005 Problem Pain in right hip M25.551 confirmed 4 9995724 Problem Pain in left hip M25.552 confirmed 49 512170 Problem Chronic obstructive pulmonary disease, unspecified COPD ty pe J44.9 confirmed 05065490 Problem Chronic pain syndrome G89.4 confirmed 900296357 Problem Uncomplicated opioid dependence F11.20 confi rmed 28019172 Problem Current moderate episode of major depressive disorder without prior episode F32.1 confirmed 78752309 Problem Venous stasis I87.8 confirmed 416034 06 Problem Other proteinuria R80.8 confirmed 29 311496 Problem Skin ulcer, unspecified ulcer stage L98.499 confirmed 03542214 Problem Blood loss anemia D50.0 confirmed 41 8884419 Problem Cervical radiculopathy M54.12 confirmed 67328381 Problem Cervical myelopathy G95.9 confirmed 171137570 Problem Grieving F43.21 confirmed 338038453 Problem Pressure injury of right foot, stage 2 L89.892 confirmed 612323575 Problem Alcohol abuse with intoxication, unspecified F10.129 confirmed Problem Unspecified protein-calorie malnutrition E46 confirmed 378226876 Problem Non-pressure chronic ulcer o f skin of other sites with unspecified severity L98.499 confirmed 92784093 Problem 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 c onfirmed Problem Other chronic pain G89.29 confirmed 8 2354744 Problem Hypertensive heart disease with heart failure I11.0 confirmed 23382514 Problem Arthritis M19.90 confirmed 0275727 Problem Low back pain M54.5 confirmed 736147 009 Problem Myocardial infarction type 2 I21.A1 confirme d Problem Osteonecrosis M87.9 confirmed 516214 003 Problem Heart failure I50.9 confirmed 844455 07 Problem Atrial fibrillation I48.91 confirmed 80385943 ALLERGIES Allergen (clinical drug ingredient) Drug/Non Drug Allergy do cumented on EMR Reaction Allergy Type Onset Date Status codeine Codeine Sulfate([facility] Code:[address]-74) hives Drug Al lergy Active ENCOUNTERS from 1950 to 2022-11-22 Encounter Location Date Provider Diagnosis [facility] [address] [facility] [id number] [address] [place] [address] Dec, OLEGARIO ROSENTHAL Chronic pain syndrom e G89.4 IMMUNIZATIONS Vaccine Route Administration Date Status PRIVATE FLULAVAL QUAD 0.5ML (6 MO AND UP) 2018 Unknown D 2015 Administered FLUZONE QUAD (6-35 MO) 2016 Unknown Aug 08, 2022 Admi nistered FLUZONE QUAD (6-35 MO) 2016 Unknown Aug 07, 2020 Admi nistered PRIVATE FLULAVAL QUAD 0.5ML (6 MO AND UP) 2019 IM Intramuscular Aug 30, 2018 Administered PRIVATE PCV 13 (PREVNAR) IM Intramuscular Aug 30, 2018 Admini stered PRIVATE FLULAVAL QUAD 0.5ML (6 MO AND UP) 2019 IM Intramuscular Aug 01, 2019 Administered Influenza (split), preservative free, 6-35 months Unknown Aug 23, 1999 Administered pneumovax ppsv 23 (history) Unknown Sep 17, 1999 Admi nistered COVID-19, SUNITHA, 0.5mL IM Intramuscular April 26, 2021 Admini stered PRIVATE FLUZONE HIGH DOSE QUAD 0.7ML (65 and UP) 2020 IM Int ramuscular Jul 23, 2021 Administered tdap (history) Unknown December 29, 2015 Administered influenza (history) Unknown Aug 07, 2020 Administered influenza IIV4 (history) Unknown Oct 06, 2016 Adminis tered Influenza (split), preservative free, 6-35 months Unknown [...] MG 1 capsule Orally every [address] [place] [address] Jul, Active Buprenorphine HCl 2 [...] No Results REASON FOR VISIT controlled refill 3/2 MEDICAL (GENERAL) HISTORY Type Description Date Medical [...] - 08/09/20 Hospitalization History [address] [facility] 10/14 Hospitalization History [facility] idium difficile colitis, UTI, chronic pain 12/31-01/02/22 Hospitalization History [place] [facility] urg-Diarrhea, Pressure ulcers 07/31-08/04/2022 Hospitalization History Hematoma, [...] Jul, Next Appt Details Provider Name:OLEGARIO ROSENTHAL, 2022-11-0 6 02:40:00 PM, [address] [facility], [id number], [place], [address], Insurance Providers Payer Name Payer Address Payer Phone Insured Name Patient Relati onship to Insured Coverage Start Date Coverage End Date Subscriber Number Group Nu mber [employer] [address] [facility] [address] Nasir Jalloh A Self - patient is the insured [id number] [employer] [address] [address] [facility] [address] Nasir Jalloh A Self - patient is the insured [id number] [facility] MEDICARE Part A [address] [facility] [address] Nasir Jalloh A Self - patient is the insured [id number] [facility] Dual Medicare Complete HMO [address] [facility] [address] Nasir Jalloh A Self - patient is the insured [id number] [employer]SNP MEDICATIONS ADMINISTERED Medication Instructions Date of Administration Dosage ROCEPHIN 1 GM (IM) Jan, 1 g
--- OUTSIDE RECORDS SUMMARY | 2023-01-01 15:07 | XMS REPORT ---
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 Name Role Phone OLEGARIO ROSENTHAL Unavailable PROBLEMS Type Condition ICD9-CM Code KFP15-LC Code Onset Dates Condition S tatus W/U Status Risk SNOMED Code Notes Problem Body mass index (BMI) 50.0-59.9, adult Z68.43 confirmed 042906107 Problem Opioid dependence, uncomplicated F11.20 conf irmed 84944530 Problem Gastroenteritis K52.9 confirmed 2537 4005 Problem Pain in right hip M25.551 confirmed 4 2135309 Problem Pain in left hip M25.552 confirmed 49 160172 Problem Chronic obstructive pulmonary disease, unspecified COPD ty pe J44.9 confirmed 36549411 Problem Chronic pain syndrome G89.4 confirmed 512948062 Problem Uncomplicated opioid dependence F11.20 confi rmed 93877725 Problem Current moderate episode of major depressive disorder without prior episode F32.1 confirmed 69947298 Problem Venous stasis I87.8 confirmed 293173 06 Problem Other proteinuria R80.8 confirmed 29 523067 Problem Skin ulcer, unspecified ulcer stage L98.499 confirmed 70322144 Problem Blood loss anemia D50.0 confirmed 41 6648885 Problem Cervical radiculopathy M54.12 confirmed 26701997 Problem Cervical myelopathy G95.9 confirmed 502083214 Problem Grieving F43.21 confirmed 366813393 Problem Pressure injury of right foot, stage 2 L89.892 confirmed 454659152 Problem Alcohol abuse with intoxication, unspecified F10.129 confirmed Problem Unspecified protein-calorie malnutrition E46 confirmed 042810569 Problem Non-pressure chronic ulcer o f skin of other sites with unspecified severity L98.499 confirmed 13491266 Problem 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 c onfirmed Problem Other chronic pain G89.29 confirmed 8 2584865 Problem Hypertensive heart disease with heart failure I11.0 confirmed 84111236 Problem Arthritis M19.90 confirmed 3688553 Problem Low back pain M54.5 confirmed 732854 009 Problem Myocardial infarction type 2 I21.A1 confirme d Problem Osteonecrosis M87.9 confirmed 302281 003 Problem Heart failure I50.9 confirmed 038920 07 Problem Atrial fibrillation I48.91 confirmed 15510061 ALLERGIES Allergen (clinical drug ingredient) Drug/Non Drug Allergy do cumented on EMR Reaction Allergy Type Onset Date Status codeine Codeine Sulfate([facility] Code:[address]-79) hives Drug Al lergy Active ENCOUNTERS from 1950 to 2022-11-21 Encounter Location Date Provider Diagnosis [facility] [address] [facility] [id number] [address] [place] [address] Dec, OLEGARIO ROSENTHAL IMMUNIZATIONS Vaccine Route Administration [...] MG 1 capsule Orally every [address] [place] [address] Jul, Active Buprenorphine HCl 2 [...] Information RESULTS No Results REASON FOR VISIT Controlled med refill MEDICAL (GENERAL) HISTORY Type Description Date Medical [...] vch - 08/09/20 Hospitalization History 4 days [facility] 10/14 Hospitalization History [facility] idium difficile colitis, UTI, chronic pain 12/31-01/02/22 Hospitalization History [place] [facility] urg-Diarrhea, Pressure ulcers 07/31-08/04/2022 Hospitalization History Hematoma, COPD 08/31/22-09/02/22 Goals Section No Information Health Concerns No Information MEDICAL EQUIPMENT No Information MENTAL STATUS No Information FUNCTIONAL STATUS No Information ASSESSMENTS No Information PLAN OF TREATMENT Medication Medication Name Sig Start Date Stop Date Albuterol Sulfate HFA 108 (90 Base) MCG/ACT INHALE TWO (2) PUFFS BY MOUTH EVERY SIX (6) HOURS NEEDED for 25 Ambien 10 mg 1 tablet at bedtime as needed Orally Onc e a day for 28 days Jul, Next Appt Details Provider Name:OLEGARIO ROSENTHAL, 2022-11-0 6 02:40:00 PM, [address] [facility], [id number], [address], Insurance Providers Payer Name Payer Address Payer Phone Insured Name Patient Relati onship to Insured Coverage Start Date Coverage End Date Subscriber Number Group Penny JIN [employer] [address] [facility] [address] Nasir Jalloh A Self - patient is the insured [id number] [facility] Dual Medicare Complete HMO [address] [facility] [address] Nasir Jalloh A Self - patient is the insured [id number] KSDSNP [facility] [address] [address] [facility] [address] Nasir Jalloh A Self - patient is the insured [id number] [facility] MEDICARE Part A [address] [facility] [address] Nasir Jalloh A Self - patient is the insured [id number] MEDICATIONS ADMINISTERED Medication Instructions Date of Administration Dosage ROCEPHIN 1 GM (IM) Jan, 1 g
--- OUTSIDE RECORDS SUMMARY | 2023-01-01 15:07 | XMS REPORT ---
Author Author [facility] Address Unknown Phone Unavailable Care Team Providers Care Closer On Name Role Phone OLEGARIO ROSENTHAL Unavailable PROBLEMS Type Condition ICD9-CM Code [id number] Code Onset Dates Condition S tatus W/U Status Risk SNOMED Code Notes Problem Body mass index (BMI) 50.0-59.9, adult Z68.43 confirmed 635000920 Problem Opioid dependence, uncomplicated F11.20 conf irmed 00764805 Problem Gastroenteritis K52.9 confirmed 2537 4005 Problem Pain in right hip M25.551 confirmed 4 5058417 Problem Pain in left hip M25.552 confirmed 49 763324 Problem Chronic obstructive pulmonary disease, unspecified COPD ty pe J44.9 confirmed 39026070 Problem Chronic pain syndrome G89.4 confirmed 126626216 Problem Uncomplicated opioid dependence F11.20 confi rmed 81164452 Problem Current moderate episode of major depressive disorder without prior episode F32.1 confirmed 32251215 Problem Venous stasis I87.8 confirmed 437905 06 Problem Other proteinuria R80.8 confirmed 29 158769 Problem Skin ulcer, unspecified ulcer stage L98.499 confirmed 21219686 Problem Blood loss anemia D50.0 confirmed 41 8635509 Problem Cervical radiculopathy M54.12 confirmed 14139682 Problem Cervical myelopathy G95.9 confirmed 888690517 Problem Grieving F43.21 confirmed 191649994 Problem Pressure injury of right foot, stage 2 L89.892 confirmed 313433437 Problem Alcohol abuse with intoxication, unspecified F10.129 confirmed Problem Unspecified protein-calorie malnutrition E46 confirmed 852621960 Problem Non-pressure chronic ulcer o f skin of other sites with unspecified severity L98.499 confirmed 08367193 Problem 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 c onfirmed Problem Other chronic pain G89.29 confirmed 8 9914633 Problem Hypertensive heart disease with heart failure I11.0 confirmed 53946499 Problem Arthritis M19.90 confirmed 9420179 Problem Low back pain M54.5 confirmed 410071 009 Problem Myocardial infarction type 2 I21.A1 confirme d Problem Osteonecrosis M87.9 confirmed 024969 003 Problem Heart failure I50.9 confirmed 651289 07 Problem Atrial fibrillation I48.91 confirmed 80031694 ALLERGIES Allergen (clinical drug ingredient) Drug/Non Drug Allergy do cumented on EMR Reaction Allergy Type Onset Date Status codeine Codeine Sulfate([facility] Code:[address]-92) hives Drug Al lergy Active ENCOUNTERS from 1950 to 2022-11-02 Encounter Location Date Provider Diagnosis [facility] [address] [facility] [id number] [address] [place] [address] 08 Nov, 2020 OLEGARIO ROSENTHAL Chronic pain syndrom e [...] MG 1 capsule Orally every 8 hrs [place] [address] [facility] Jul, Active Buprenorphine HCl 2 [...] No Results REASON FOR VISIT controlled refill 12/03 MEDICAL (GENERAL) HISTORY Type Description Date Medical [...] vch - 08/09/20 Hospitalization History 4 days [facility] 10/14 Hospitalization History [facility] idium difficile colitis, UTI, chronic pain 12/31-01/02/22 Hospitalization History [place] [facility] urg-Diarrhea, Pressure ulcers 07/31-08/04/2022 Hospitalization History Hematoma, COPD 08/31/22-09/02/22 Goals Section No Information Health Concerns No Information MEDICAL EQUIPMENT No Information MENTAL STATUS No Information FUNCTIONAL STATUS No Information ASSESSMENTS Encounter Date Diagnosis Assessment Notes Treatment Notes Treatm ent Clinical Notes Nov, Chronic pain syndrome (ICD-10 - G89.4) PLAN OF TREATMENT Medication Medication Name Sig Start Date Stop Date Albuterol Sulfate HFA 108 (90 Base) MCG/ACT INHALE TWO (2) PUFFS BY MOUTH EVERY SIX (6) HOURS NEEDED for 25 Ambien 10 mg 1 tablet at bedtime as needed Orally Onc e a day for 28 days Jul, Next Appt Details Provider Name:OLEGARIO ROSENTHAL, 2022-10-26 3 01:00:00 PM, [address] [facility], [id number], [place], [address], Insurance Providers Payer Name Payer Address Payer Phone Insured Name Patient Relati onship to Insured Coverage Start Date Coverage End Date Subscriber Number Group Nu mber [facility] Dual Medicare Complete HMO [address] [facility] [address] Nasir Jalloh A Self - patient is the insured [id number] [employer] [facility] [address] [address] [facility] [address] Nasir Jalloh A Self - patient is the insured [id number] [employer] MEDICARE Part A FI [address] [facility] [address] Nasir Jalloh A Self - patient is the insured [id number] [address] [facility] [address] Nasir Jalloh A Self - patient is the insured [id number] MEDICATIONS ADMINISTERED Medication Instructions Date of Administration Dosage ROCEPHIN 1 GM (IM) Jan, 1 g
--- OUTSIDE RECORDS SUMMARY | 2023-01-01 15:07 | XMS REPORT ---
Author Author [facility] Address Unknown Phone Unavailable Care Team Providers Care Game Warden Name Role Phone OLEGARIO ROSENTHAL Unavailable PROBLEMS Type Condition ICD9-CM Code IQQ33-LN Code Onset Dates Condition S tatus W/U Status Risk SNOMED Code Notes Problem Body mass index (BMI) 50.0-59.9, adult Z68.43 confirmed 352623777 Problem Opioid dependence, uncomplicated F11.20 conf irmed 20552522 Problem Gastroenteritis K52.9 confirmed 2537 4005 Problem Pain in right hip M25.551 confirmed 4 3414840 Problem Pain in left hip M25.552 confirmed 49 088078 Problem Chronic obstructive pulmonary disease, unspecified COPD ty pe J44.9 confirmed 24324739 Problem Chronic pain syndrome G89.4 confirmed 516428106 Problem Uncomplicated opioid dependence F11.20 confi rmed 25202388 Problem Current moderate episode of major depressive disorder without prior episode F32.1 confirmed 27188070 Problem Venous stasis I87.8 confirmed 540854 06 Problem Other proteinuria R80.8 confirmed 29 124319 Problem Skin ulcer, unspecified ulcer stage L98.499 confirmed 47856547 Problem Blood loss anemia D50.0 confirmed 41 3895051 Problem Cervical radiculopathy M54.12 confirmed 60897260 Problem Cervical myelopathy G95.9 confirmed 984211640 Problem Grieving F43.21 confirmed 471104326 Problem Pressure injury of right foot, stage 2 L89.892 confirmed 563803148 Problem Alcohol abuse with intoxication, unspecified F10.129 confirmed Problem Unspecified protein-calorie malnutrition E46 confirmed 512589153 Problem Non-pressure chronic ulcer o f skin of other sites with unspecified severity L98.499 confirmed 74255146 Problem 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 c onfirmed Problem Other chronic pain G89.29 confirmed 8 2615015 Problem Hypertensive heart disease with heart failure I11.0 confirmed 81802467 Problem Arthritis M19.90 confirmed 4976108 Problem Low back pain M54.5 confirmed 890107 009 Problem Myocardial infarction type 2 I21.A1 confirme d Problem Osteonecrosis M87.9 confirmed 536290 003 Problem Heart failure I50.9 confirmed 894319 07 Problem Atrial fibrillation I48.91 confirmed 92450226 ALLERGIES Allergen (clinical drug ingredient) Drug/Non Drug Allergy do cumented on EMR Reaction Allergy Type Onset Date Status codeine Codeine Sulfate([facility] Code:[address]-61) hives Drug Al lergy Active ENCOUNTERS from 1950 to 2022-12-05 Encounter Location Date Provider Diagnosis [facility] [address] [facility] [id number] [address] [place] [address] 08 Dec, 2020 OLEGARIO ROSENTHAL IMMUNIZATIONS Vaccine Route Administration Date [...] MG 1 capsule Orally every [address] [place] [address] Jul, Not-Taking Pantoprazole Sodium 40 [...] No Results REASON FOR VISIT controlled refill MEDICAL (GENERAL) HISTORY Type Description Date [...] vch - 08/09/20 Hospitalization History 4 days [facility] 10/14 Hospitalization History [facility] idium difficile colitis, UTI, chronic pain 12/31-01/02/22 Hospitalization History [facility] urg-Diarrhea, Pressure ulcers 07/31-08/04/2022 Hospitalization History Hematoma, COPD 08/31/22-09/02/22 Hospitalization History [facility] [employer] urg-NSTEMI, Bilateral hip dysfunction, COPD exacerbation, Acute UTI 11/21-11/25/2022 Goals Section No Information Health Concerns No Information MEDICAL EQUIPMENT No Information MENTAL STATUS No Information FUNCTIONAL STATUS No Information ASSESSMENTS No Information PLAN OF TREATMENT Next Appt Details Provider Name:OLEGARIO ROSENTHAL, 2022-11-26 7 02:00:00 PM, [address] [facility], [id number], [place], [address], Insurance Providers Payer Name Payer Address Payer Phone Insured Name Patient Relati onship to Insured Coverage Start Date Coverage End Date Subscriber Number Group Nu mber [facility] Dual Medicare Complete HMO [address] [facility] [phone] Nasir Jalloh A Self - patient is the insured [id number] [employer]SDSNP [facility] MEDICARE Part A [address] [facility] [address] Nasir Jalloh A Self - patient is the insured [id number] [facility] [address] [address] [facility] [address] aNsir Jalloh A Self - patient is the insured [id number] [address] [facility] [address] Nasir Jalloh A Self - patient is the insured [id number] 2003 MEDICATIONS ADMINISTERED Medication Instructions Date of Administration Dosage ROCEPHIN 1 GM (IM) Jan, 1 g
--- OUTSIDE RECORDS SUMMARY | 2023-01-01 15:07 | XMS REPORT ---
Author Author [facility] Address Unknown Phone Unavailable Care Team Providers Care Property And Supply Officer Name Role Phone OLEGARIO ROSENTHAL Unavailable PROBLEMS Type Condition ICD9-CM Code LLZ25-AC Code Onset Dates Condition S tatus W/U Status Risk SNOMED Code Notes Problem Body mass index (BMI) 50.0-59.9, adult Z68.43 confirmed 923121205 Problem Opioid dependence, uncomplicated F11.20 conf irmed 51200056 Problem Gastroenteritis K52.9 confirmed 2537 4005 Problem Pain in right hip M25.551 confirmed 4 3561951 Problem Pain in left hip M25.552 confirmed 49 837549 Problem Chronic obstructive pulmonary disease, unspecified COPD ty pe J44.9 confirmed 99307961 Problem Chronic pain syndrome G89.4 confirmed 388409961 Problem Uncomplicated opioid dependence F11.20 confi rmed 23379781 Problem Current moderate episode of major depressive disorder without prior episode F32.1 confirmed 54900680 Problem Venous stasis I87.8 confirmed 947846 06 Problem Other proteinuria R80.8 confirmed 29 999495 Problem Skin ulcer, unspecified ulcer stage L98.499 confirmed 30050185 Problem Blood loss anemia D50.0 confirmed 41 8205909 Problem Cervical radiculopathy M54.12 confirmed 50945297 Problem Cervical myelopathy G95.9 confirmed 771147845 Problem Grieving F43.21 confirmed 873280648 Problem Pressure injury of right foot, stage 2 L89.892 confirmed 095754592 Problem Alcohol abuse with intoxication, unspecified F10.129 confirmed Problem Unspecified protein-calorie malnutrition E46 confirmed 535981231 Problem Non-pressure chronic ulcer o f skin of other sites with unspecified severity L98.499 confirmed 63550050 Problem 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 c onfirmed Problem Other chronic pain G89.29 confirmed 8 5371315 Problem Hypertensive heart disease with heart failure I11.0 confirmed 07261684 Problem Arthritis M19.90 confirmed 2603628 Problem Low back pain M54.5 confirmed 709361 009 Problem Myocardial infarction type 2 I21.A1 confirme d Problem Osteonecrosis M87.9 confirmed 269572 003 Problem Heart failure I50.9 confirmed 611533 07 Problem Atrial fibrillation I48.91 confirmed 88170490 ALLERGIES Allergen (clinical drug ingredient) Drug/Non Drug Allergy do cumented on EMR Reaction Allergy Type Onset Date Status codeine Codeine Sulfate([facility] Code:[address]-63) hives Drug Al lergy Active ENCOUNTERS from 1950 to 2022-11-16 Encounter Location Date Provider Diagnosis [facility] [address] [facility] [id number] [address] [place] [address] Nov, OLEGARIO ROSENTHAL IMMUNIZATIONS Vaccine Route Administration Date [...] MG 1 capsule Orally every [address] [place] [address] Jul, Active Buprenorphine HCl 2 [...] Information RESULTS No Results REASON FOR VISIT *Medication refill request MEDICAL (GENERAL) HISTORY Type Description Date Medical [...] in left leg 06/21-06/25/18 Hospitalization History [facility]/2019 Hospitalization History pacemaker malfunction - vch - 08/09/20 Hospitalization History 4 days [facility] 10/14 Hospitalization History [facility] idium difficile colitis, UTI, chronic pain 12/31-01/02/22 Hospitalization History [place] [facility] urg-Diarrhea, Pressure ulcers 07/31-08/04/2022 Hospitalization History Hematoma, [...] e a day for 28 days Jul, Insurance Providers Payer Name Payer Address Payer Phone Insured Name Patient Relati onship to Insured Coverage Start Date Coverage End Date Subscriber Number Group Nu mber [address] [facility] [address] Nasir Jalloh A Self - patient is the insured [id number] [facility] [address] [address] [address] [facility] [address] Nasir Jalloh A Self - patient is the insured [id number] [facility] MEDICARE Part A [address] [facility] [id number] Nasir Jalloh A Self - patient is the insured [id number] [facility] Dual Medicare Complete HMO [address] [facility] [phone] Nasir Jalloh A Self - patient is the insured [id number] [employer] MEDICATIONS ADMINISTERED Medication Instructions Date of Administration Dosage ROCEPHIN 1 GM (IM) Jan, 1 g
[2023-01-01] MEDS ORDERED: polyethylene glycoL POWDER 17 GM (MIRALAX) PACK PO PRN (15:15)
[2023-01-01] MEDS ORDERED: LACTULOSE SYRUP 10GM/15ML (ENULOSE) 30ML UDC PO PRN (15:15)
[2023-01-01] MEDS ORDERED: PHARMACY TO DOSE IV SCH (15:15)
[2023-01-01] MEDS ORDERED: ONDANSETRON 4 MG (ZOFRAN) ORAL DISSOLVE TAB PO PRN (15:15)
[2023-01-01] MEDS ORDERED: CALCIUM CARBONATE 500 MG (TUMS) TAB.CHEW PO PRN (15:15)
[2023-01-01] MEDS ORDERED: ANTACID SUSP 30 ML UDC (MYLANTA) PO PRN (15:15)
[2023-01-01] MEDS ORDERED: diphenhydrAMINE 50 MG/ML INJ (BENADRYL) IVP PRN (15:15)
[2023-01-01] MEDS ORDERED: ACETAMINOPHEN 325 MG TABLET PO PRN (15:15)
[2023-01-01] MEDS ORDERED: ONDANSETRON 4 MG/2 ML (SDV) Z0FRAN IV PRN (15:15)
[2023-01-01] MEDS ORDERED: diphenhydrAMINE 25 MG TAB (BENADRYL) PO PRN (15:15)
[2023-01-01] MEDS ORDERED: MILK OF MAGNESIA 400 MG/5 ML 30 ML UDC PO PRN (15:15)
[2023-01-01] MEDS ORDERED: BISACODYL 10 MG SUPP (DULCOLAX) PR PRN (15:15)
[2023-01-01] MEDS: HYDROmorphone 2 MG/ML VIAL (DILAUDID) IV PRN ×3 (15:44→23:22)
--- NOTE | 2023-01-01 15:48 | History & Physical-Hospitalist ---
JAYA MACIEL 01/01/23 1548: History of Present Illness HPI/Chief Complaint 72 year old male with recent hospitalization for Urosepsis and AECOPD on 12/21 p resented to [place] ER with a chief complaint of diarrhea and increasing shortness of breath that had been ongoing for roughly a week. Patient was transferred to us for admission due to concern for right middle lobe pneumonia from [facility]. Patient states that he has been requiring more and more breathing treatments to breathe and has been having 2-3 episodes of diarrhea a day for a week. This morning around 0200 patient began having worsening diarrhea with nausea and that is what made him decide to go to the ER. Patient denies any recent travel, food-borne illness, or recent antibiotic treatment, although he was just hopsitalized for UTI, sepsis, and AECOPD on 12/21, where he was given ceftriaxone. Patient states that he took an OTC anti-diarrheal medicine, unsure of the name, that did seem to help slow down his diarrhea some. Patient does have a history of C.Diff infection. Patient is chronically debilitated an unable to walk. Lives at home alone in an apartment but does have home health come M-F. At Outside Facility: Patient was noted to have leukocytosis with a left shift (13.58). Negative UA. Negative viral testing. CXR was read as "New opacification of the right apical lung. This may be simply positional in nature, though new infiltrate or mass lesion is not excluded. Recommend AP lordotic views of the chest with improved frontal positioning for further evaluation." Source: patient Exam Limitations: no limitations Date Seen 01/01/23 Attending Physician Center/[facility] PCP Admitting Physician: Kirsten Bhandari DO Attending Physician: Kirsten Bhandari DO Referring Physician Date of Admission Jan 01, 2023 at 14:45 Home Medications & Allergies Home Medications Reviewed patient Home Medication Reconciliation performed by pharmacy medication reconciliations hazardous waste technician and/or nursing. Patients Allergies have been reviewed. 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) Tobacco Use?: No Smoking Status: Former Smoker (1.5 PPD at peak, 54 years smoking) Use of E-Cig and/or Vaping dev: No Substance use?: No Alcohol Use?: No Pt feels they are or have been: No Immunizations Up To Date Date of Influenza Vaccine: Dec 11, 2022 First/Initial COVID19 Vaccinat: x2 Tetanus Booster (TDap): More Than 5 Years Hepatitis A: No Hepatitis B: No PED Vaccines UTD: No Date of Pneumonia Vaccine: Jul 03, 2018 Seasonal Allergies Seasonal Allergies: No Current Status Advance Directives: Yes Advance Directive Location: Copy from prev record Communicates: Verbally Primary Language: [place] Preferred Spoken Language: [place] Is interpretation needed?: No Past Medical History Surgeries: Abdominal, Appendectomy, Cardiac, Defibrillator, Joint Replacement, Orthopedic, Pacemaker Asthma, COPD Currently Using CPAP: No Currently Using BIPAP: No Atrial Fibrillation, Chronic Edema/Swelling, Coronary Artery Disease, Congenital Heart Disease, Heart Attack, Hypertension, Irregular Heartbeat Neuropathy Sexually Transmitted Disease: No HIV/AIDS: No Neurogenic Bladder Abdominal Hernia, Chronic Constipation Arthritis, Chronic Back Pain, Fractures Loss of Vision: Denies Hearing Impairment: Hard of Hearing Recent Skin Changes Blood Disorders: No Adverse Reaction/Blood Tranf: Yes (HIGH FEVER AND CHILLS) PMHx: avascular necrosis of multiple joints Asthma Chronic nonhealing hip wounds SurgHx: 11 bilateral hip surgeries, removal of hardware is nonambulatory 3 back surgeries Neck surgery Bilateral carpal tunnel release Bilateral cubital tunnel release Family Medical History COPD Diabetes mellitus No Pertinent Family Hx Adopted, unknown FH SOCIAL HISTORY: -SMOKED IN THE PAST, QUIT -ETOH--LONG HISTORY OF ABUSE -DRUGS--EXTENSIVE ABUSE OF RX DRUGS, ESPECIALLY OPIATES PAST SURGICAL HISTORY: -MULTIPLE FAILED BILATERAL HIP REPLACEMENTS, WITH EVENTUAL REMOVAL OF BOTH FEMORAL HEADS -CARDIAC CATH 08/26/[address] LOPEZ: CORONARY ANGIOGRAPHY: Coronary calcification is seen. Left main coronary artery is free of significant disease. Left anterior descending artery does not exhibit significant disease. Left circumflex artery has 30% to 40% mid vessel stenosis at the site of the origin of a large obtuse marginal branch. IFR across this lesion is 0.96. This indicates that the lesion is hemodynamically nonsignificant. Right coronary artery is codominant with the left circumflex artery. It does not exhibit significant disease. LEFT VENTRICULAR ANGIOGRAPHY: Left ventricular angiography was carried out in the right anterior oblique projection. Global left ventricular systolic function is normal. No regional wall motion abnormalities seen. Left ventricular ejection fraction is approximately 60%. CONCLUSIONS: 1. Mild to moderate coronary artery disease, nonobstructive. 2. Normal global left ventricular systolic function with ejection fraction approximately 60%. 3. Normal left ventricular end-diastolic pressure. DISCUSSION AND RECOMMENDATIONS: Based on results of the study, it appears appropriate to continue a conservative approach. Review of Systems Constitutional: No dizziness, No fever, No weakness EENTM: No blurred vision, No double vision Respiratory: No cough; short of breath Cardiovascular: No chest pain, No palpitations Gastrointestinal: No abdominal pain; diarrhea Genitourinary: other (neurogenic bladder, licea ) Musculoskeletal: back pain, joint pain Psychiatric/Neurological: Denies Headache, Denies Weakness Physical Exam Physical Exam Vital Signs Vital Signs - First Documented 01/01/23 15:55 Temp 36.9 Pulse 83 Resp 14 B/P (MAP) 144/82 (102) Pulse Ox 99 O2 Delivery Nasal Cannula O2 Flow Rate 4.00 FiO2 36 Capillary Refill : Height, Weight, BMI Height: 5'8.00" Weight: 170lbs. 8.0oz. 77.524112ty; 41.47 BMI Method:Stated General Appearance: Chronically ill, Other (unkept) HEENT: PERRL/EOMI (EOMI), Normal ENT Inspection (externally) Neck: Non Tender, Supple Respiratory: No Accessory Muscle Use, No Respiratory Distress, Decreased Breath Sounds, Other (end expiratory wheezing ) Cardiovascular: Regular Rate, Rhythm, No Murmur Gastrointestinal: Non Tender, Soft Rectal: Deferred Extremity: Non Tender, No Calf Tenderness, No Pedal Edema Neurologic/Psychiatric: Alert, Oriented x3, Normal Mood/Affect Skin: Normal Color, Warm/Dry Results Results/Procedures Labs Laboratory Tests 01/01/23 15:40 Patient resulted labs reviewed. Imaging: Reviewed Imaging Films Assessment/Plan Admission Diagnosis AECOPD Diarrhea, unknown etiology Admission Status: Inpatient Order (span 2 midnights) Reason for Inpatient Admission: AECOPD Diarrhea - Unknown Etiology Assessment and Plan AECOPD - Patient received duoneb x2 before arrival here - Is now on baseline O2, O2 sats are mid 90's - Sounds clear to me now, with no wheezing - Will repeat CXR and do sputum cultures to include/exclude PNA given high risk for MDR organism - Concerning with recent hospitalization for Urosepsis + AECOPD - Meropenem and Vanc empirically for Diarrhea and Possible PNA - Oxygen, Scheduled breathing treatments, Solumedrol - Continue to monitor Diarrhea - Unknown Etiology - Patient has recent Abx use (Ceftriaxone) and history of C. 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 Trevino - Continue ambulatory medications HLD HTN GERD - Continue ambulatory meds DVT Prophylaxis: Lovenox KIRSTEN BHANDARI DO 01/02/23 0520: History of Present Illness Time Seen by a Provider: 18:00 Past Gplnncp-Sivrbp-Sehcxf Hx Family Medical History COPD Diabetes mellitus Assessment/Plan Admission Diagnosis Admission Status: Inpatient Order (span 2 midnights) Reason for Inpatient Admission: aecopd Supervisory-Addendum Brief Verification & Attestation Participated in pt care: history, MDM, physical Personally performed: exam, history, MDM, supervision of care Care discussed with: Medical Student Procedures: n/a Results interpretation: Verified all documentation Verification and Attestation of Medical Student E/M Service A medical student performed and documented this service in my presence. I reviewed and verified all information documented by the medical student and made modifications to such information, when appropriate. I personally performed the physical exam and medical decision making. Kirsten Bhandari Jan 02, 2023,05:20 JAYA MACIEL Jan 01, 2023 15:48 KIRSTEN BHANDARI DO Jan 02, 2023 05:20
[2023-01-01 15:55] VITALS: BP 144/82
[2023-01-01 15:56] LABS: POTASSIUM 3.7 MMOL/L (3.6-5.0)
[2023-01-01 15:57] LABS: CALCIUM 8.4 MG/DL (8.5-10.1)
[2023-01-01] MEDS ORDERED: ENOXAPARIN 40 MG/0.4 ML (LOVENOX) SYR SC SCH (16:00)
--- NOTE | 2023-01-01 16:00 | Diagnostic Imaging Report ---
INDICATION: Follow-up pneumonia. EXAMINATION: Chest from 01/01/2023. COMPARISON: 12/11/2022. FINDINGS: There is a left-sided pacemaker, stable. The heart is less prominent than on previous as is the pulmonary vasculature. Persistent prominence of the right perihilar region, likely due to prominent vasculature. This has improved. There are no infiltrates. No effusions. No pneumothorax. IMPRESSION: 1. Chronic findings. No acute cardiopulmonary process. Dictated by: Dictated on workstation # [id number]
[2023-01-01 16:02] LABS: CREATININE SERUM 0.82 MG/DL (0.60-1.30)
[2023-01-01] MEDS ORDERED: RT-ALBUTEROL HFA 8.5 GM INHALER IH PRN (16:15)
[2023-01-01 16:21] VITALS: BP 142/84
[2023-01-01] MEDS ORDERED: VANCOMYCIN 1,750 MG/NS 500 ML IVPB IV NR ×2 (17:00)
[2023-01-01] MEDS: methylPREDNISolone 40 MG/ML (Solu-MEDROL) VIAL IV SCH ×2 (18:30→23:22)
[2023-01-01] MEDS ORDERED: LOPERAMIDE 2 MG (IMODIUM) TABLET PO PRN (18:45)
[2023-01-01 19:58] VITALS: BP 151/80
[2023-01-01] MEDS: SENNOSIDES 8.6 MG (SENOKOT) TAB PO SCH (20:34)
[2023-01-01] MEDS: DOCUSATE SODIUM 100 MG (COLACE) CAP PO SCH (20:34)
[2023-01-01] MEDS: RT-ALBUTEROL HFA 8.5 GM INHALER IH SCH (21:18)
[2023-01-01] MEDS: MEROPENEM 500 MG in NS (IVPB) 100 ML IV SCH ×2 (22:22→23:22)
[2023-01-01 23:53] VITALS: BP 135/89
[2023-01-02] MEDS: RT-ALBUTEROL HFA 8.5 GM INHALER IH SCH ×4 (02:41→19:53)
[2023-01-02 04:00] VITALS: BP 150/73
[2023-01-02 05:08] LABS: BASOPHILS % (AUTO) 0 % (0-10); EOSINOPHILS % (AUTO) 0 % (0-10); HEMATOCRIT 32 % (40-54); HEMOGLOBIN 10.5 g/dL (13.3-17.7); LYMPHOCYTES # (AUTO) 0.2 10^3/uL (1.0-4.0); LYMPHOCYTES % (AUTO) 3 % (12-44); MEAN CORPUSCULAR HEMOGLOBIN 31 pg (25-34); MEAN CORPUSCULAR HGB CONC 33 g/dL (32-36); MEAN CORPUSCULAR VOLUME 95 fL (80-99); MEAN PLATELET VOLUME 11.3 fL (9.0-12.2); MONOCYTES # (AUTO) 0.1 10^3/uL (0.0-1.0); MONOCYTES % (AUTO) 1 % (0-12); NEUTROPHILS # (AUTO) 6.8 10^3/uL (1.8-7.8); NEUTROPHILS % (AUTO) 96 % (42-75); PLATELET COUNT 295 10^3/uL (130-400); WHITE BLOOD COUNT 7.1 10^3/uL (4.3-11.0)
[2023-01-02] MEDS: HYDROmorphone 2 MG/ML VIAL (DILAUDID) IV PRN ×2 (05:11→09:55)
[2023-01-02] MEDS: methylPREDNISolone 40 MG/ML (Solu-MEDROL) VIAL IV SCH ×4 (05:11→23:27)
[2023-01-02] MEDS: MEROPENEM 500 MG in NS (IVPB) 100 ML IV SCH ×4 (05:12→23:27)
[2023-01-02 05:32] LABS: POTASSIUM 3.6 MMOL/L (3.6-5.0)
[2023-01-02 05:34] LABS: CALCIUM 8.2 MG/DL (8.5-10.1)
[2023-01-02 05:35] LABS: TOTAL PROTEIN 5.4 GM/DL (6.4-8.2)
[2023-01-02 05:37] LABS: BILIRUBIN,TOTAL 0.4 MG/DL (0.1-1.0)
[2023-01-02 06:06] LABS: BAND NEUTROPHILS 1 %; LYMPHOCYTES % (MANUAL) 4 %; MONOCYTES % (MANUAL) 4 %; NEUTROPHILS % (MANUAL) 91 %
[2023-01-02 06:07] LABS: BURR CELLS SLIGHT; ELLIPT/OVALOCYTES SLIGHT
[2023-01-02 08:00] VITALS: BP 131/70
[2023-01-02] MEDS: DOCUSATE SODIUM 100 MG (COLACE) CAP PO SCH ×2 (08:30→20:23)
[2023-01-02] MEDS: SENNOSIDES 8.6 MG (SENOKOT) TAB PO SCH ×2 (08:31→20:24)
[2023-01-02] MEDS: ENOXAPARIN 40 MG/0.4 ML (LOVENOX) SYR SC SCH ×2 (09:35→20:11)
--- NOTE | 2023-01-02 09:36 | Progress Note - Hospitalist ---
JAYA MACIEL 01/02/23 0936: Subjective HPI/CC On Admission " Subjective/Events-last exam Patient being seen in f/u for AECOPD and possible PNA. Patient resting in bed comfortably. No diarrhea overnight. On baseline oxygen. CXR negative for acute process. Glucose 300 this AM. patient not on any diabetic medications in outpatient. Patient also states he has not been taking BP medications in outpatient setting. Patient has been refusing oxy and requesting dilauded often per RN. Patient's Hgb 10.5. Will monitor Review of Systems General: No Chills, No Night Sweats HEENT: No Head Aches, No Visual Changes Pulmonary: Dyspnea; No Cough Cardiovascular: No: Chest Pain, Palpitations Gastrointestinal: No: Nausea, Vomiting, Abdominal Pain Genitourinary: Other (cath) Musculoskeletal: shoulder pain (chronic), back pain (chronic) Neurological: Weakness ("weaker than usual"); No: Numbness Objective Exam Vital Signs Vital Signs Date Time Temp Pulse Resp B/P (MAP) Pulse Ox O2 Delivery O2 Flow Rate FiO2 01/02/23 08:00 36.3 86 15 131/70 (90) 100 Nasal Cannula 4.00 01/01/23 15:55 36 Capillary Refill : General Appearance: No Apparent Distress, Chronically ill HEENT: PERRL/EOMI (EOMI), Normal ENT Inspection (Externally) Neck: Non Tender, Supple Respiratory: Chest Non Tender, No Accessory Muscle Use, No Respiratory Distress, Wheezing (end inspiration and end expiration) Cardiovascular: No Murmur, Tachycardia (regualar rhythm, occasional premature complex) Gastrointestinal: Non Tender, Soft Rectal: Deferred Extremity: Non Tender, No Calf Tenderness, No Pedal Edema Neurologic/Psychiatric: Alert, Oriented x3, Normal Mood/Affect Skin: Normal Color, Warm/Dry Results/Procedures Lab Laboratory Tests 01/01/23 15:40 01/02/23 04:53 Patient resulted labs reviewed. Imaging: Reviewed Imaging Films, Reviewed Imaging Report Assessment/Plan Assessment and Plan Assess & Plan/Chief Complaint AECOPD - Patient is now on baseline oxygen but having end inspiratory + expiratory wheezing - Leukocytosis at outside facility has now resolved - CXR is negative for acute process, however recent hospitalization with urosepsis and AECOPD raises concern for MDR organism - Meropenem and Vanc started empirically yesterday, may consider deescalation today - Oxygen, Duoneb inhaler (PEPE/KYLE) Flovent Inhaler (ICS), Solumedrol, albutero l neb PRN - Continue to monitor Diarrhea - Unknown Etiology - No diarrhea so far during hospital stay - Continue to monitor Hyperglycemia - Patient states is not on DM medications at home and has not had a recent check up to screen for DM - Will check A1c and start SSI Coronary Artery Disease Dual Chamber Pacemaker Placement - History of heart cath which showed non-obstructive atherosclerosis - History of Sinus Node Disfunction requiring pacemaker placement - ASA 81 Debility/Self-care Deficit - Patient reports having home health care M-F at home. Reports using mobility scooter to get around as unable to walk. - Patient had poor hygiene on presentation, unsure of ability to do ADLs. - PT/OT evaluation HTN - Patient states he is not currently taking any ambulatory medications for HTN. (Toprol on chart) - BP consistently elevated during this stay. Will start Losartan 50 and monitor response. If patient requires more medication for BP control would restart Toprol before increasing losartan. Anemia - Unknown Etiology - Monitor H+H HLD GERD - Continue ambulatory meds DVT Prophylaxis: Lovenox Dispo: To floor. SS consult for placement on discharge. Patient has adamantly refused this in the past. KIRSTEN BHANDARI DO 01/03/23 0608: Supervisory-Addendum Brief Verification & Attestation Participated in pt care: history, MDM, physical Personally performed: exam, history, MDM, supervision of care Care discussed with: Medical Student Procedures: n/a Results interpretation: Verified all documentation Verification and Attestation of Medical Student E/M Service A medical student performed and documented this service in my presence. I reviewed and verified all information documented by the medical student and made modifications to such information, when appropriate. I personally performed the physical exam and medical decision making. Kirsten Bhandari Jan 03, 2023,06:08 JAYA MACIEL Jan 02, 2023 09:36 KIRSTEN BHANDARI DO Jan 03, 2023 06:08
[2023-01-02] MEDS ORDERED: LOPE2CAP14 PO (10:47)
[2023-01-02] MEDS: inSUlin ASPART (NovoLOG) 1 UNIT/0.01 ML (CHARGE PER UNIT) SC SCH ×3 (11:21→20:19)
[2023-01-02 12:00] VITALS: BP 100/80
--- NOTE | 2023-01-02 13:31 | Physical Therapy Progress Note ---
Therapy Progress Note Patient adamantly declined PT and requested not to come back. He reports he is fine and able to do what he needs. RN notified. No PT indicated. 1 ref/DC DAMIR VILLALOBOS PT Jan 02, 2023 13:31
--- NOTE | 2023-01-02 13:55 | Occ Therapy Progress Note ---
Therapy Progress Note Patient refuses OT, discontinue order. YANCI QUEVEDO OT Jan 02, 2023 13:55
[2023-01-02] MEDS: GABAPENTIN 300 MG (NEURONTIN) CAP PO SCH ×2 (14:36→20:11)
[2023-01-02] MEDS: RT-ALBUTEROL SULF 2.5 MG/3 ML PRE-MIX VIAL INH PRN (15:32)
[2023-01-02 15:50] VITALS: BP 176/82
[2023-01-02] MEDS: VANCOMYCIN 1250 MG/NS 250 ML PREMIX IV SCH (16:24)
[2023-01-02 19:08] VITALS: BP 138/85
[2023-01-02] MEDS: MELATONIN 3 MG TABLET PO PRN (20:11)
[2023-01-02] MEDS: BETHANECHOL 10 MG (URECHOLINE) TAB PO SCH (20:11)
[2023-01-02] MEDS: RANOLAZINE ER 500 MG TAB (RANEXA) PO SCH (20:11)
[2023-01-02 23:23] VITALS: BP 124/66
[2023-01-03] MEDS: RT-ALBUTEROL HFA 8.5 GM INHALER IH SCH ×4 (02:23→20:47)
[2023-01-03 03:40] VITALS: BP 152/83
[2023-01-03] MEDS: MEROPENEM 500 MG in NS (IVPB) 100 ML IV SCH ×4 (05:11→23:37)
[2023-01-03] MEDS: methylPREDNISolone 40 MG/ML (Solu-MEDROL) VIAL IV SCH ×3 (05:11→19:57)
[2023-01-03 05:23] LABS: BASOPHILS % (AUTO) 0 % (0-10); EOSINOPHILS % (AUTO) 0 % (0-10); HEMATOCRIT 31 % (40-54); LYMPHOCYTES # (AUTO) 0.3 10^3/uL (1.0-4.0); LYMPHOCYTES % (AUTO) 2 % (12-44); MEAN CORPUSCULAR HEMOGLOBIN 31 pg (25-34); MEAN CORPUSCULAR HGB CONC 33 g/dL (32-36); MEAN CORPUSCULAR VOLUME 95 fL (80-99); MONOCYTES # (AUTO) 0.2 10^3/uL (0.0-1.0); MONOCYTES % (AUTO) 1 % (0-12); NEUTROPHILS # (AUTO) 14.1 10^3/uL (1.8-7.8); NEUTROPHILS % (AUTO) 96 % (42-75); PLATELET COUNT 287 10^3/uL (130-400); WHITE BLOOD COUNT 14.8 10^3/uL (4.3-11.0)
[2023-01-03 05:39] LABS: POTASSIUM 3.9 MMOL/L (3.6-5.0)
[2023-01-03 05:40] LABS: CALCIUM 8.5 MG/DL (8.5-10.1)
[2023-01-03 05:41] LABS: TOTAL PROTEIN 5.4 GM/DL (6.4-8.2)
[2023-01-03 05:43] LABS: BILIRUBIN,TOTAL 0.3 MG/DL (0.1-1.0)
[2023-01-03 05:45] LABS: CREATININE SERUM 0.84 MG/DL (0.60-1.30)
[2023-01-03] MEDS: inSUlin ASPART (NovoLOG) 1 UNIT/0.01 ML (CHARGE PER UNIT) SC SCH ×4 (05:50→21:13)
[2023-01-03 07:27] VITALS: BP 129/69
--- NOTE | 2023-01-03 08:40 | Progress Note - Hospitalist ---
Subjective HPI/CC On Admission Date Seen by Provider: Jan 03, 2023 Time Seen by Provider: 11:00 " Subjective/Events-last exam No major changes Wheezing still present Willing to DC to [facility] on Thursday but he has said this multiple times before and backed out Loose stools improved Review of Systems General: Fatigue, Malaise Objective Exam Vital Signs Vital Signs Date Time Temp Pulse Resp B/P (MAP) Pulse Ox O2 Delivery O2 Flow Rate FiO2 01/04/23 03:31 36.1 81 18 140/64 (89) 98 Nasal Cannula 4.00 01/01/23 15:55 36 Capillary Refill : General Appearance: No Apparent Distress, WD/WN, Chronically ill Respiratory: No Accessory Muscle Use, No Respiratory Distress, Decreased Breath Sounds, Wheezing Cardiovascular: Regular Rate, Rhythm Neurologic/Psychiatric: Alert, Oriented x3, Normal Mood/Affect Results/Procedures Lab Laboratory Tests 01/04/23 05:21 Patient resulted labs reviewed. Imaging: Reviewed Imaging Films, Reviewed Imaging Report Assessment/Plan Assessment and Plan Assess & Plan/Chief Complaint Assess & Plan/Chief Complaint AECOPD - Patient is now on baseline oxygen but having end inspiratory + expiratory wheezing - Leukocytosis at outside facility has now resolved - CXR is negative for acute process, however recent hospitalization with urosepsis and AECOPD raises concern for MDR organism - Meropenem and Vanc started empirically yesterday, may consider deescalation today - Oxygen, Duoneb inhaler (PEPE/KYLE) Flovent Inhaler (ICS), Solumedrol, albuterol neb PRN - Continue to monitor Diarrhea - Unknown Etiology - No diarrhea so far during hospital stay - Continue to monitor Hyperglycemia - Patient states is not on DM medications at home and has not had a recent check up to screen for DM - Will check A1c and start SSI Coronary Artery Disease Dual Chamber Pacemaker Placement - History of heart cath which showed non-obstructive atherosclerosis - History of Sinus Node Disfunction requiring pacemaker placement - ASA 81 Debility/Self-care Deficit - Patient reports having home health care M-F at home. Reports using mobility scooter to get around as unable to walk. - Patient had poor hygiene on presentation, unsure of ability to do ADLs. - PT/OT evaluation HTN - Patient states he is not currently taking any ambulatory medications for HTN. (Toprol on chart) - BP consistently elevated during this stay. Will start Losartan 50 and monitor response. If patient requires more medication for BP control would restart Toprol before increasing losartan. Anemia - Unknown Etiology - Monitor H+H HLD GERD - Continue ambulatory meds DVT Prophylaxis: Lovenox Dispo: To floor. SS consult for placement on discharge. Patient has adamantly refused this in the past. ZOHREH BHANDARI DO Jan 03, 2023 08:40
[2023-01-03] MEDS: ASPIRIN E.C. 81 MG (ECOTRIN) TAB PO SCH (09:03)
[2023-01-03] MEDS: ENOXAPARIN 40 MG/0.4 ML (LOVENOX) SYR SC SCH ×2 (09:03→19:58)
[2023-01-03] MEDS: SENNOSIDES 8.6 MG (SENOKOT) TAB PO SCH ×2 (09:03→19:58)
[2023-01-03] MEDS: GABAPENTIN 300 MG (NEURONTIN) CAP PO SCH ×3 (09:04→19:58)
[2023-01-03] MEDS: BETHANECHOL 10 MG (URECHOLINE) TAB PO SCH ×2 (09:04→19:58)
[2023-01-03] MEDS: DOCUSATE SODIUM 100 MG (COLACE) CAP PO SCH ×2 (09:04→19:58)
[2023-01-03] MEDS: PANTOPRAZOLE 40 MG (PROTONIX) TAB PO SCH (09:04)
[2023-01-03] MEDS: RANOLAZINE ER 500 MG TAB (RANEXA) PO SCH ×2 (09:28→20:01)
[2023-01-03 11:11] VITALS: BP 131/63
[2023-01-03 16:11] VITALS: BP 144/81
[2023-01-03] MEDS: VANCOMYCIN 1250 MG/NS 250 ML PREMIX IV SCH (16:40)
[2023-01-03 19:42] VITALS: BP 155/74
[2023-01-03] MEDS: MELATONIN 3 MG TABLET PO PRN (19:58)
[2023-01-03 23:13] VITALS: BP 146/72
[2023-01-04] MEDS: RT-ALBUTEROL SULF 2.5 MG/3 ML PRE-MIX VIAL INH PRN (00:50)
[2023-01-04] MEDS ORDERED: FUROSEMIDE 40 MG/4 ML INJ (LASIX) IVP ONE (01:15)
[2023-01-04] MEDS: RT-ALBUTEROL HFA 8.5 GM INHALER IH SCH ×4 (03:11→19:22)
[2023-01-04 03:31] VITALS: BP 140/64
[2023-01-04] MEDS: MEROPENEM 500 MG in NS (IVPB) 100 ML IV SCH ×4 (05:21→23:36)
[2023-01-04 05:33] LABS: BASOPHILS % (AUTO) 0 % (0-10); EOSINOPHILS % (AUTO) 0 % (0-10); HEMATOCRIT 32 % (40-54); HEMOGLOBIN 10.6 g/dL (13.3-17.7); LYMPHOCYTES # (AUTO) 0.2 10^3/uL (1.0-4.0); LYMPHOCYTES % (AUTO) 2 % (12-44); MEAN CORPUSCULAR HEMOGLOBIN 32 pg (25-34); MEAN CORPUSCULAR HGB CONC 33 g/dL (32-36); MEAN CORPUSCULAR VOLUME 96 fL (80-99); MEAN PLATELET VOLUME 11.2 fL (9.0-12.2); MONOCYTES # (AUTO) 0.5 10^3/uL (0.0-1.0); MONOCYTES % (AUTO) 3 % (0-12); NEUTROPHILS # (AUTO) 13.5 10^3/uL (1.8-7.8); NEUTROPHILS % (AUTO) 94 % (42-75); PLATELET COUNT 293 10^3/uL (130-400); WHITE BLOOD COUNT 14.3 10^3/uL (4.3-11.0)
[2023-01-04 05:41] LABS: ALBUMIN 3.3 GM/DL (3.2-4.5); POTASSIUM 3.7 MMOL/L (3.6-5.0)
[2023-01-04 05:43] LABS: CALCIUM 8.6 MG/DL (8.5-10.1)
[2023-01-04 05:44] LABS: TOTAL PROTEIN 5.6 GM/DL (6.4-8.2)
[2023-01-04 05:46] LABS: BILIRUBIN,TOTAL 0.2 MG/DL (0.1-1.0)
[2023-01-04 05:47] LABS: CREATININE SERUM 0.99 MG/DL (0.60-1.30)
[2023-01-04] MEDS: inSUlin ASPART (NovoLOG) 1 UNIT/0.01 ML (CHARGE PER UNIT) SC SCH ×4 (05:58→20:26)
--- NOTE | 2023-01-04 07:31 | Progress Note - Hospitalist ---
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 Review of Systems General: Fatigue, Malaise Musculoskeletal: leg pain Objective Exam Vital Signs Vital Signs Date Time Temp Pulse Resp B/P (MAP) Pulse Ox O2 Delivery O2 Flow Rate FiO2 01/04/23 11:03 36.2 70 20 138/65 (89) 99 Nasal Cannula 4.00 01/01/23 15:55 36 Capillary Refill : General Appearance: No Apparent Distress, WD/WN, Chronically ill Respiratory: Lungs Clear, Normal Breath Sounds, No Accessory Muscle Use, No Respiratory Distress, Decreased Breath Sounds Cardiovascular: Regular Rate, Rhythm Neurologic/Psychiatric: Alert, Oriented x3, Normal Mood/Affect Results/Procedures Lab Laboratory Tests 01/04/23 05:21 Patient resulted labs reviewed. Imaging: Reviewed Imaging Films, Reviewed Imaging Report Assessment/Plan Assessment and Plan Assess & Plan/Chief Complaint Assess & Plan/Chief Complaint AECOPD - Patient is now on baseline oxygen but had wheezing last night resolved with Lasix - Leukocytosis at outside facility has improved - CXR is negative for acute process, however recent hospitalization with uro sepsis and AECOPD raises concern for MDR organism - Meropenem and Vanc started empirically - Oxygen, Duoneb inhaler (PEPE/KYLE) Flovent Inhaler (ICS), Solumedrol, albuterol neb PRN - Continue to monitor Diarrhea - Unknown Etiology - No diarrhea so far during hospital stay - Continue to monitor Hyperglycemia - Patient states is not on DM medications at home and has not had a recent check up to screen for DM - Will check A1c and start SSI Coronary Artery Disease Dual Chamber Pacemaker Placement - History of heart cath which showed non-obstructive atherosclerosis - History of Sinus Node Disfunction requiring pacemaker placement - ASA 81 Debility/Self-care Deficit - Patient reports having home health care M-F at home. Reports using mobility scooter to get around as unable to walk. - Patient had poor hygiene on presentation, unsure of ability to do ADLs. - PT/OT evaluation HTN - Patient states he is not currently taking any ambulatory medications for HTN. (Toprol on chart) - BP consistently elevated during this stay. Will start Losartan 50 and monitor response. If patient requires more medication for BP control would restart Toprol before increasing losartan. Anemia - Unknown Etiology - Monitor H+H HLD GERD - Continue ambulatory meds DVT Prophylaxis: Lovenox Dispo: ZOHREH WAGNER DO Jan 04, 2023 07:31
[2023-01-04 07:53] VITALS: BP 132/89
[2023-01-04] MEDS: ENOXAPARIN 40 MG/0.4 ML (LOVENOX) SYR SC SCH ×2 (08:42→20:40)
[2023-01-04] MEDS: methylPREDNISolone 40 MG/ML (Solu-MEDROL) VIAL IV SCH ×2 (08:42→20:38)
[2023-01-04] MEDS: GABAPENTIN 300 MG (NEURONTIN) CAP PO SCH ×3 (08:42→20:39)
[2023-01-04] MEDS: SENNOSIDES 8.6 MG (SENOKOT) TAB PO SCH ×2 (08:42→20:39)
[2023-01-04] MEDS: RANOLAZINE ER 500 MG TAB (RANEXA) PO SCH ×2 (08:42→20:39)
[2023-01-04] MEDS: DOCUSATE SODIUM 100 MG (COLACE) CAP PO SCH ×2 (08:42→20:39)
[2023-01-04] MEDS: ASPIRIN E.C. 81 MG (ECOTRIN) TAB PO SCH (08:42)
[2023-01-04] MEDS: BETHANECHOL 10 MG (URECHOLINE) TAB PO SCH ×2 (08:42→20:39)
[2023-01-04] MEDS: PANTOPRAZOLE 40 MG (PROTONIX) TAB PO SCH (08:42)
[2023-01-04 11:03] VITALS: BP 138/65
[2023-01-04 16:19] VITALS: BP 136/64
[2023-01-04 20:07] VITALS: BP 159/77
[2023-01-04 23:17] VITALS: BP_SYST 154; BP_SYST 169; BP_DIAS 77; BP_DIAS 79
[2023-01-05] MEDS: RT-ALBUTEROL HFA 8.5 GM INHALER IH SCH ×4 (02:42→19:27)
[2023-01-05 03:23] VITALS: BP 139/78
[2023-01-05] MEDS: MEROPENEM 500 MG in NS (IVPB) 100 ML IV SCH ×4 (05:17→23:17)
[2023-01-05] MEDS: HYDROmorphone 2 MG/ML VIAL (DILAUDID) IV PRN ×2 (05:26→20:45)
[2023-01-05 05:30] LABS: BASOPHILS % (AUTO) 0 % (0-10); EOSINOPHILS % (AUTO) 0 % (0-10); HEMATOCRIT 31 % (40-54); HEMOGLOBIN 10.1 g/dL (13.3-17.7); LYMPHOCYTES # (AUTO) 0.3 10^3/uL (1.0-4.0); LYMPHOCYTES % (AUTO) 3 % (12-44); MEAN CORPUSCULAR HEMOGLOBIN 31 pg (25-34); MEAN CORPUSCULAR HGB CONC 32 g/dL (32-36); MEAN CORPUSCULAR VOLUME 96 fL (80-99); MEAN PLATELET VOLUME 11.3 fL (9.0-12.2); MONOCYTES # (AUTO) 0.4 10^3/uL (0.0-1.0); MONOCYTES % (AUTO) 4 % (0-12); NEUTROPHILS # (AUTO) 9.1 10^3/uL (1.8-7.8); NEUTROPHILS % (AUTO) 92 % (42-75); PLATELET COUNT 274 10^3/uL (130-400); WHITE BLOOD COUNT 9.8 10^3/uL (4.3-11.0)
[2023-01-05 05:55] LABS: ALBUMIN 2.8 GM/DL (3.2-4.5); BILIRUBIN,TOTAL 0.3 MG/DL (0.1-1.0); CALCIUM 8.3 MG/DL (8.5-10.1); CREATININE SERUM 1.31 MG/DL (0.60-1.30); POTASSIUM 4.4 MMOL/L (3.6-5.0)
[2023-01-05] MEDS: inSUlin ASPART (NovoLOG) 1 UNIT/0.01 ML (CHARGE PER UNIT) SC SCH ×4 (05:56→20:35)
[2023-01-05 07:26] VITALS: BP 115/66
[2023-01-05] MEDS: ENOXAPARIN 40 MG/0.4 ML (LOVENOX) SYR SC SCH ×2 (08:40→20:34)
[2023-01-05] MEDS: methylPREDNISolone 40 MG/ML (Solu-MEDROL) VIAL IV SCH ×2 (08:40→20:34)
[2023-01-05] MEDS: GABAPENTIN 300 MG (NEURONTIN) CAP PO SCH ×3 (08:40→20:35)
[2023-01-05] MEDS: RANOLAZINE ER 500 MG TAB (RANEXA) PO SCH ×2 (08:40→20:35)
[2023-01-05] MEDS: PANTOPRAZOLE 40 MG (PROTONIX) TAB PO SCH (08:40)
[2023-01-05] MEDS: ASPIRIN E.C. 81 MG (ECOTRIN) TAB PO SCH (08:40)
[2023-01-05] MEDS: DOCUSATE SODIUM 100 MG (COLACE) CAP PO SCH (08:40)
[2023-01-05] MEDS: SENNOSIDES 8.6 MG (SENOKOT) TAB PO SCH ×2 (08:40→20:35)
[2023-01-05] MEDS: BETHANECHOL 10 MG (URECHOLINE) TAB PO SCH ×2 (08:41→20:35)
--- NOTE | 2023-01-05 09:49 | Physical Therapy Evaluation ---
PT Evaluation-General Medical Diagnosis Admission Date Jan 01, 2023 at 14:45 Medical Diagnosis: pneumonia Onset Date: Jan 01, 2023 Therapy Diagnosis Therapy Diagnosis: weakness Height/Weight Height (Feet): 5 Height (Inches): 8.00 Weight (Pounds): 170 Weight (Ounces): 8.0 Precautions Precautions/Isolations: Fall Prevention, Standard Precautions Referral Physician: Yvon Reason for Referral: Evaluation/Treatment Medical History Pertinent Medical History: Atrial Fib, Alcoholism, Arthritis, CAD, COPD, DM, Heart Failure, HTN, Neuropathy Current History Admit due to pneumonia Reviewed History: Yes Social History Home: Single Level Current Living Status: Other Family Prior Prior Level of Function SCALE: Activities may be completed with or without assistive devices. 1-Yitmrkgvyq-rmhkpxm completes the activity by him/herself with no assistance from a helper. 5-Set-up or Clean-up Assistance-helper sets up or cleans up; patient completes activity. [place] assists only prior to or following the activity. 4-Supervision or Touching Assistance-helper provides verbal cues and/or touching/steadying and/or contact guard assistance as patient completes activity. Assistance may be provided throughout the activity or intermittently. 3-Partial/Moderate Assistance-helper does LESS THAN HALF the effort. [place] lifts, holds or supports trunk or limbs, but provides less than half the effort. 2-Substantial/Maximal Assistance-helper does MORE THAN HALF the effort. [place] lifts or holds trunk or limbs and provides more than half the effort. 1-Bcdxqyhqd-eyknsa does ALL the effort. Patient does none of the effort to complete the activity. Or, the assistance of 2 or more helpers is required for the patient to complete the activity. If activity was not attempted, code reason: 7-Patient Refused. 9-Not Applicable-not attempted and the patient did not perform the activity before the current illness, exacerbation or injury. 10-Not Attempted due to Environmental Limitations-(lack of equipment, weather restraints, etc.). 88-Not Attempted due to Medical Conditions or Safety Concerns. Bed Mobility: 2 Transfers (B,C,W/C): 2 Gait: 9 Indoor Mobility (Ambulation): Not [place] Stairs: Not [place] Prior Devices Use: Manual wheelchair, Motorized wheelchair PT Evaluation-Current Subjective Patient agrees to PT. Pain Numeric Pain Scale: 0-No Pain Location: No Pain Reported Objective Patient Orientation: Normal For Age ROM/Strength ROM Lower Extremities bilateral LE limited due to missing hip joints Strength Lower Extremities 2-/5 grossly bilateral LE Integumentary/Posture Integumentary refer to nursing notes Bladder Incontinence: Fermin Cath Neuromuscular (Tone, Coordination, Reflexes) diminished bilateral LE coordination due to severe weakness Sensory Vision: Functional Hearing: Functional Transfers Roll Left to Right (QC): 1 Patient will require a Tay Lift for safe transfers bed to chair Gait Does the Patient Walk?: No and Walking Goal NOT indicated Assessment/Needs Patient will be seen by skilled PT to address functional strength and begin Tay lift transfers for patient and staff safety. 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 Solar Sales Consultant Goals PT [facility] Goals Time Frame: Jan 17, 2023 Roll Left & Right (QC): 2 Sit to Lying (QC): 1 Lying-Sitting on Side/Bed(QC): 1 PT Plan Problem List Problem List: Activity Tolerance, Functional Strength, Balance, Transfer, Bed Mobility, ROM Treatment/Plan Treatment Plan: Continue Plan of Care Treatment Plan: Bed Mobility, Education, Functional Activity Ever, Functional Strength, Safety, Therapeutic Exercise, Transfers Treatment Duration: Jan 17, 2023 Frequency: 6 times per week Estimated Hrs Per Day: .25 hour per day Patient and/or Family Agrees t: Yes Time Time In: 909 Time Out: 919 DATE: Jan 05, 2023 Total Billed Treatment Time: 10 [facility]AL[facility] PT Jan 05, 2023 09:49
--- NOTE | 2023-01-05 10:04 | Occupational Therapy Eval ---
OT Evaluation-General/PLF Medical Diagnosis Admission Date Jan 01, 2023 at 14:45 Medical Diagnosis: pneumonia Onset Date: Jan 01, 2023 Therapy Diagnosis Therapy Diagnosis: weakness Height/Weight Height (Feet): 5 Height (Inches): 8.00 Weight (Pounds): 170 Weight (Ounces): 8.0 Precautions Precautions/Isolations: Fall Prevention, Standard Precautions Weight Bear Status reports he does not transfer or ambulate Referral Physician: Yvon Medical History Pertinent Medical History: Atrial Fib, Alcoholism, Arthritis, CAD, COPD, DM, Heart Failure, HTN, Neuropathy Additional Medical History Atrial Fib, Alcoholism, Arthritis, CAD, COPD, DM, Heart Failure, HTN, Neuropathy Current History Admission d/t pneumonia. Admit this hospital 12/09-12/22/22 COPD, 12/21-12/24/22. Patient is inconsistent in mobility and tolerance to activity. 01/02/23 patient refused therapies, today patient agrees and reports he is going home and then [facility]. He is able to lift BLEs from pillows on bed and position BLES on edge of bed, scoot self safely to EOB and return to supine/reclined position and use of bed remote controller at end of session including placing pillows under legs. Patient demonstrates fair sitting static balance and requires one hand support during functional reach assessment to sustain balance on bed, Patient reports he transfers himself to toilet at home and falls out of tub shower w/ Shower chair. Patient also reports he drives but later states he has not driven since 2008, he reports he prepared meals and cleans his own home and also reports he had in home care 01/01/23.Accuracy of independence is undermined based on interview at evaluation Reviewed History: Yes Social History Home: Single Level Current Living Status: Other Family ADL-Prior Level of Function SCALE: Activities may be completed with or without assistive devices. 1-Ofucerfkfm-twcbtgz completes the activity by him/herself with no assistance from a helper. 5-Set-up or Clean-up Assistance-helper sets up or cleans up; patient completes activity. [place] assists only prior to or following the activity. 4-Supervision or Touching Assistance-helper provides verbal cues and/or touching/steadying and/or contact guard assistance as patient completes activity. Assistance may be provided throughout the activity or intermittently. 3-Partial/Moderate Assistance-helper does LESS THAN HALF the effort. [place] lifts, holds or supports trunk or limbs, but provides less than half the effort. 2-Substantial/Maximal Assistance-helper does MORE THAN HALF the effort. [place] lifts or holds trunk or limbs and provides more than half the effort. 7-Ipyypomvj-vcjnqq does ALL the effort. Patient does none of the effort to complete the activity. Or, the assistance of 2 or more helpers is required for the patient to complete the activity. If activity was not attempted, code reason: 7-Patient Refused. 9-Not Applicable-not attempted and the patient did not perform the activity before the current illness, exacerbation or injury. 10-Not Attempted due to Environmental Limitations-(lack of equipment, weather restraints, etc.). 88-Not Attempted due to Medical Conditions or Safety Concerns. 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 Reports numbness and dropping utensils. Able to operate remote controls ADL-Treatment Eating (QC): 6 Oral Hygiene (QC): 5 (set up, sitting) Shower/Bathe Self (QC): 88 Upper Body Dressing (QC): 4 Lower Body Dressing (QC): 2 On/Off Footwear (QC): 7 (refused) Toileting Hygiene (QC): 2 Other Treatments UE ther ex for hand regional forester and FMC for ADLS, object manipulation intervention Education OT Patient Education: Correct positioning, Energy conservation, Exercise program, Modified ADL techniques, Progress toward Goal/Update tx plan, Purpose of tx/functional activities, Reviewed precautions, Rehab process, Safety issues, Transfer techniques, Use of adapted equipment Teaching Recipient: Patient Teaching Methods: Demonstration, Discussion Response to Teaching: Verbalize Understanding, Reinforcement Needed OT [facility] Goals [facility] Goals Eating (QC): 6 Oral Hygiene (QC): 6 Toileting Hygiene (QC): 3 Shower/Bathe Self (QC): 3 Upper Body Dressing (QC): 5 Lower Body Dressing (QC): 4 On/Off Footwear (QC): 5 1=Demonstrate adherence to instructed precautions during ADL tasks. 2=Patient will verbalize/demonstrate understanding of assistive devices/modifications for ADL. 3=Patient will improve strength/tolerance for activity to enable patient to perform ADL's. OT Education/Plan Problem List/Assessment Assessment: Decreased Activ Tolerance, Decreased UE Strength, Dependent Transfers, Impaired Coordination, Impaired Funct Balance, Impaired Self-Care Skills, Restricted Funct UE ROM Discharge Recommendations Plan/Recommendations: Continue POC Therapy Discharge Recommendati: Post Acute OT Treatment Plan/Plan of Care Treatment,Training & Education: Yes Patient would benefit from OT for education, treatment and training to promote independence in ADL's, mobility, safety and/or upper extremity function for ADL's. Plan of Care: ADL Retraining, Functional Mobility, Group Exercise/Act as Ind, UE Funct Exercise/Act Treatment Duration: Jan 10, 2023 Frequency: 3 times per week (3-5 tmes per week) Estimated Hrs Per Day: .25 hour per day Agreement: Yes Rehab Potential: Guarded Remain in bed w/ al needs met Time Start Time: 09:28 Stop Time: 10:13 DATE: Jan 05, 2023 Total Time Billed (hr/min): 45 Billed Treatment Time EVM 1, EX 2 45 min YANCI QUEVEDO OT Jan 05, 2023 10:04
[2023-01-05 11:17] VITALS: BP 134/74
--- NOTE | 2023-01-05 12:27 | Progress Note ---
Subjective Subjective/Events-last exam Patient states that he is feeling better today. Still having some shortness of breath but he states that it is his baseline. Tolerating PO diet. Working with PT and completed exercises this AM. Review of Systems General: No Chills; Malaise Pulmonary: Dyspnea, Cough Cardiovascular: No: Chest Pain, Palpitations, Edema Gastrointestinal: No: Nausea, Vomiting, Abdominal Pain, Diarrhea, Constipation Neurological: Weakness, Incoordination; No: Confusion Objective Exam Last Set of Vital Signs Vital Signs Date Time Temp Pulse Resp B/P (MAP) Pulse Ox O2 Delivery O2 Flow Rate FiO2 01/05/23 11:17 36.4 74 20 134/74 (94) 100 Nasal Cannula 4.00 01/01/23 15:55 36 Capillary Refill : I&O Intake and Output 01/05/23 00:00 Intake Total 2652 ml Output Total 1700 ml Balance 952 ml Intake Oral 2202 ml IV Total 450 ml Output Urine Total 1700 ml General: Alert, Oriented X3, Mild Distress (with minimal exertion) Lungs: Other (basilar crackles and diffuse wheezing, increased work of breathing with minimal exertion) Heart: Regular Rate, No Murmurs Abdomen: Normal Bowel Sounds, Soft, No Tenderness, No Masses Extremities: No Tenderness/Swelling Neuro: Normal Speech Results/Procedures Lab Laboratory Tests 01/04/23 15:49: Glucometer 134H 01/04/23 20:25: Glucometer 148H 01/05/23 05:19: White Blood Count 9.8, Red Blood Count 3.28L, Hemoglobin 10.1L, Hematocrit 31L, Mean Corpuscular Volume 96, Mean Corpuscular Hemoglobin 31, Mean Corpuscular Hemoglobin Concent 32, Red Cell Distribution Width 14.8H, Platelet Count 274, Mean Platelet Volume 11.3, Immature Granulocyte % (Auto) 1, Neutrophils (%) (Auto) 92H, Lymphocytes (%) (Auto) 3L, Monocytes (%) (Auto) 4, Eosinophils (%) (Auto) 0, Basophils (%) (Auto) 0, Neutrophils # (Auto) 9.1H, Lymphocytes # (Auto) 0.3L, Monocytes # (Auto) 0.4, Eosinophils # (Auto) 0.0, Basophils # (Auto) 0.0, Immature Granulocyte # (Auto) 0.1, Sodium Level 139, Potassium Level 4.4, Chloride Level 105, Carbon Dioxide Level 24, Anion Gap 10, Blood Urea Nitrogen 36H, Creatinine 1.31H, Estimat Glomerular Filtration Rate 59, BUN/Creatinine Ratio 27, Glucose Level 109H, Calcium Level 8.3L, Corrected Calcium 9.3, Total Bilirubin 0.3, Aspartate Amino Transf (AST/SGOT) 18, Alanine Aminotransferase (ALT/SGPT) 17, Alkaline Phosphatase 58, Total Protein 5.0L, Albumin 2.8L 01/05/23 11:14: Glucometer 155H Assessment/Plan Assessment/Plan (1) COPD exacerbation Status: Acute Assessment & Plan: 01/05: On his baseline oxygen, working on NH placement as patient has not been successful at home (2) Acute kidney injury Status: Acute Assessment & Plan: 01/05: Likely 2/2 to lasix, will continue to monitor, oral hydration (3) Normocytic anemia Status: Chronic Assessment & Plan: 01/05: No signs of acute bleeding (4) Hypertension Status: Chronic (5) COPD (chronic obstructive pulmonary disease) Status: Chronic (6) Coronary artery disease Status: Chronic (7) Physical debility Status: Chronic Assessment & Plan: 01/05: Discussed the need for NH placement and patient agrees, he has not been successful at home and has had several readmissions to the hospital BRYANNA VALENTIN MD Jan 05, 2023 12:27
[2023-01-05 15:12] VITALS: BP 164/79
[2023-01-05] MEDS ORDERED: RT-ALBUTEROL HFA 8.5 GM INHALER IH PRN (15:45)
[2023-01-05 19:10] VITALS: BP 148/67
[2023-01-05] MEDS ORDERED: RT-ALBUTEROL SULF 2.5 MG/3 ML PRE-MIX VIAL INH PRN (21:00)
[2023-01-05 23:19] VITALS: BP 155/84
[2023-01-06] MEDS: MEROPENEM 500 MG in NS (IVPB) 100 ML IV SCH ×3 (05:14→18:03)
[2023-01-06 05:35] LABS: BASOPHILS % (AUTO) 0 % (0-10); EOSINOPHILS % (AUTO) 0 % (0-10); HEMATOCRIT 31 % (40-54); HEMOGLOBIN 10.2 g/dL (13.3-17.7); LYMPHOCYTES # (AUTO) 0.3 10^3/uL (1.0-4.0); LYMPHOCYTES % (AUTO) 3 % (12-44); MEAN CORPUSCULAR HEMOGLOBIN 32 pg (25-34); MEAN CORPUSCULAR HGB CONC 33 g/dL (32-36); MEAN CORPUSCULAR VOLUME 97 fL (80-99); MEAN PLATELET VOLUME 11.6 fL (9.0-12.2); MONOCYTES # (AUTO) 0.5 10^3/uL (0.0-1.0); MONOCYTES % (AUTO) 6 % (0-12); NEUTROPHILS # (AUTO) 7.3 10^3/uL (1.8-7.8); NEUTROPHILS % (AUTO) 90 % (42-75); PLATELET COUNT 264 10^3/uL (130-400); WHITE BLOOD COUNT 8.1 10^3/uL (4.3-11.0)
[2023-01-06 05:45] LABS: ALBUMIN 2.7 GM/DL (3.2-4.5); POTASSIUM 4.4 MMOL/L (3.6-5.0)
[2023-01-06 05:46] LABS: CALCIUM 8.7 MG/DL (8.5-10.1)
[2023-01-06 05:47] LABS: TOTAL PROTEIN 4.8 GM/DL (6.4-8.2)
[2023-01-06 05:49] LABS: BILIRUBIN,TOTAL 0.2 MG/DL (0.1-1.0)
[2023-01-06 05:51] LABS: CREATININE SERUM 0.86 MG/DL (0.60-1.30)
[2023-01-06] MEDS: inSUlin ASPART (NovoLOG) 1 UNIT/0.01 ML (CHARGE PER UNIT) SC SCH ×4 (05:51→20:21)
[2023-01-06 07:22] VITALS: BP 133/64
[2023-01-06] MEDS: methylPREDNISolone 40 MG/ML (Solu-MEDROL) VIAL IV SCH ×2 (08:18→20:24)
[2023-01-06] MEDS: ASPIRIN E.C. 81 MG (ECOTRIN) TAB PO SCH (08:19)
[2023-01-06] MEDS: PANTOPRAZOLE 40 MG (PROTONIX) TAB PO SCH (08:19)
[2023-01-06] MEDS: SENNOSIDES 8.6 MG (SENOKOT) TAB PO SCH ×2 (08:19→20:24)
[2023-01-06] MEDS: BETHANECHOL 10 MG (URECHOLINE) TAB PO SCH ×2 (08:19→20:25)
[2023-01-06] MEDS: GABAPENTIN 300 MG (NEURONTIN) CAP PO SCH ×3 (08:19→20:24)
[2023-01-06] MEDS: ENOXAPARIN 40 MG/0.4 ML (LOVENOX) SYR SC SCH ×2 (08:20→20:23)
[2023-01-06] MEDS: RANOLAZINE ER 500 MG TAB (RANEXA) PO SCH ×2 (08:45→20:25)
--- NOTE | 2023-01-06 10:09 | Occ Therapy Progress Note ---
Therapy Progress Note Patient declines participation in therapy today. OT encouraged sitting EOB, UE ROM/strength, patient reports "Not today Lady" YANCI QUEVEDO OT Jan 06, 2023 10:09
--- NOTE | 2023-01-06 10:13 | Physical Therapy Progress Note ---
Therapy Progress Note Patient declined PT this boubacar RN notified. Will attempt later today is schedule permits. 1 ref DAMIR VILLALOBOS PT Jan 06, 2023 10:13
[2023-01-06] MEDS ORDERED: PRD50T PO (11:18)
[2023-01-06] MEDS ORDERED: INSU100V5 SQ (11:18)
[2023-01-06] MEDS: HYDROmorphone 2 MG/ML VIAL (DILAUDID) IV PRN ×2 (12:01→22:00)
[2023-01-06 15:31] VITALS: BP 139/75
--- NOTE | 2023-01-06 15:51 | Progress Note ---
Subjective Subjective/Events-last exam Patient states that he is feeling better. Still pretty weak. Tolerating PO diet. Review of Systems General: Fatigue, Malaise Pulmonary: No Dyspnea; Cough Cardiovascular: Edema; No: Chest Pain, Palpitations Gastrointestinal: No: Nausea, Vomiting, Abdominal Pain, Diarrhea, Constipation Neurological: Weakness, Incoordination Objective Exam Last Set of Vital Signs Vital Signs Date Time Temp Pulse Resp B/P (MAP) Pulse Ox O2 Delivery O2 Flow Rate FiO2 01/06/23 15:31 36.5 69 19 139/75 (96) 100 Nasal Cannula 4.00 01/05/23 15:22 36 Capillary Refill : I&O Intake and Output 01/05/23 23:59 Intake Total 1592 ml Output Total 950 ml Balance 642 ml Intake Oral 1292 ml IV Total 300 ml Output Urine Total 950 ml # Bowel Movements 1 General: Alert, Oriented X3, Mild Distress (with minimal exertion) Lungs: Clear to Auscultation, Normal Air Movement Heart: Regular Rate, No Murmurs Abdomen: Normal Bowel Sounds, Soft, No Tenderness, No Masses Extremities: Other (1+ pitting edema bilaterally) Neuro: Normal Speech Results/Procedures Lab Laboratory Tests 01/05/23 20:13: Glucometer 172H 01/06/23 05:15: White Blood Count 8.1, Red Blood Count 3.24L, Hemoglobin 10.2L, Hematocrit 31L, Mean Corpuscular Volume 97, Mean Corpuscular Hemoglobin 32, Mean Corpuscular Hemoglobin Concent 33, Red Cell Distribution Width 14.9H, Platelet Count 264, Mean Platelet Volume 11.6, Immature Granulocyte % (Auto) 1, Neutrophils (%) (Auto) 90H, Lymphocytes (%) (Auto) 3L, Monocytes (%) (Auto) 6, Eosinophils (%) (Auto) 0, Basophils (%) (Auto) 0, Neutrophils # (Auto) 7.3, Lymphocytes # (Auto) 0.3L, Monocytes # (Auto) 0.5, Eosinophils # (Auto) 0.0, Basophils # (Auto) 0.0, Immature Granulocyte # (Auto) 0.1, Sodium Level 140, Potassium Level 4.4, Chloride Level 107, Carbon Dioxide Level 25, Anion Gap 8, Blood Urea Nitrogen 34H, Creatinine 0.86, Estimat Glomerular Filtration Rate 93, BUN/Creatinine Ratio 40, Glucose Level 131H, Calcium Level 8.7, Corrected Calcium 9.7, Total Bilirubin 0.2, Aspartate Amino Transf (AST/SGOT) 14, Alanine Aminotransferase (ALT/SGPT) 21, Alkaline Phosphatase 56, Total Protein 4.8L, Albumin 2.7L 01/06/23 11:12: Glucometer 181H 01/06/23 15:30: Glucometer 120H Assessment/Plan Assessment/Plan (1) COPD exacerbation Status: Acute Assessment & Plan: 01/05: On his baseline oxygen, working on NH placement as patient has not been successful at home 01/06: Waiting for NH placement (2) Acute kidney injury Status: Acute Assessment & Plan: 01/05: Likely 2/2 to lasix, will continue to monitor, oral hydration 01/06: Resolved (3) Normocytic anemia Status: Chronic Assessment & Plan: 01/05: No signs of acute bleeding (4) Hypertension Status: Chronic (5) COPD (chronic obstructive pulmonary disease) Status: Chronic (6) Coronary artery disease Status: Chronic (7) Physical debility Status: Chronic Assessment & Plan: 01/05: Discussed the need for NH placement and patient agrees, he has not been successful at home and has had several readmissions to the hospital BRYANNA VALENTIN MD Jan 06, 2023 15:51
[2023-01-06] MEDS ORDERED: RT-ALBUTEROL HFA 8.5 GM INHALER IH PRN (16:45)
[2023-01-06] MEDS: RT-ALBUTEROL HFA 8.5 GM INHALER IH SCH (18:51)
[2023-01-06] MEDS: MELATONIN 3 MG TABLET PO PRN (20:24)
[2023-01-07 00:21] VITALS: BP 162/80
[2023-01-07] MEDS: MEROPENEM 500 MG in NS (IVPB) 100 ML IV SCH ×5 (00:21→22:37)
[2023-01-07] MEDS: inSUlin ASPART (NovoLOG) 1 UNIT/0.01 ML (CHARGE PER UNIT) SC SCH ×4 (05:53→21:23)
[2023-01-07 06:02] LABS: BASOPHILS % (AUTO) 0 % (0-10); EOSINOPHILS % (AUTO) 0 % (0-10); HEMATOCRIT 33 % (40-54); HEMOGLOBIN 10.5 g/dL (13.3-17.7); LYMPHOCYTES # (AUTO) 0.4 10^3/uL (1.0-4.0); LYMPHOCYTES % (AUTO) 5 % (12-44); MEAN CORPUSCULAR HEMOGLOBIN 31 pg (25-34); MEAN CORPUSCULAR HGB CONC 32 g/dL (32-36); MEAN CORPUSCULAR VOLUME 97 fL (80-99); MEAN PLATELET VOLUME 11.5 fL (9.0-12.2); MONOCYTES # (AUTO) 0.5 10^3/uL (0.0-1.0); MONOCYTES % (AUTO) 7 % (0-12); NEUTROPHILS # (AUTO) 6.8 10^3/uL (1.8-7.8); NEUTROPHILS % (AUTO) 87 % (42-75); PLATELET COUNT 263 10^3/uL (130-400); WHITE BLOOD COUNT 7.8 10^3/uL (4.3-11.0)
[2023-01-07 06:10] LABS: ALBUMIN 2.7 GM/DL (3.2-4.5); POTASSIUM 5.5 MMOL/L (3.6-5.0)
[2023-01-07 06:12] LABS: CALCIUM 8.7 MG/DL (8.5-10.1)
[2023-01-07 06:15] LABS: BILIRUBIN,TOTAL 0.2 MG/DL (0.1-1.0)
[2023-01-07 06:17] LABS: CREATININE SERUM 0.83 MG/DL (0.60-1.30)
[2023-01-07] MEDS: RT-ALBUTEROL HFA 8.5 GM INHALER IH SCH ×2 (07:30→20:29)
[2023-01-07 07:50] VITALS: BP 139/65
[2023-01-07] MEDS: BETHANECHOL 10 MG (URECHOLINE) TAB PO SCH ×2 (08:36→19:33)
[2023-01-07] MEDS: RANOLAZINE ER 500 MG TAB (RANEXA) PO SCH ×2 (08:36→19:33)
[2023-01-07] MEDS: methylPREDNISolone 40 MG/ML (Solu-MEDROL) VIAL IV SCH ×2 (08:36→19:33)
[2023-01-07] MEDS: ENOXAPARIN 40 MG/0.4 ML (LOVENOX) SYR SC SCH ×2 (08:37→19:33)
[2023-01-07] MEDS: PANTOPRAZOLE 40 MG (PROTONIX) TAB PO SCH (08:37)
[2023-01-07] MEDS: ASPIRIN E.C. 81 MG (ECOTRIN) TAB PO SCH (08:37)
[2023-01-07] MEDS: SENNOSIDES 8.6 MG (SENOKOT) TAB PO SCH ×2 (08:37→19:33)
[2023-01-07] MEDS: GABAPENTIN 300 MG (NEURONTIN) CAP PO SCH ×3 (08:37→19:33)
--- NOTE | 2023-01-07 09:48 | Physical Therapy Daily Note ---
PT Daily Note-Current Subjective Patient lying supine in bed upon PT arrival, agreeable to bed exercises but refuses OOB treatment. Patient rates pain currently at 0/10. Pain Section J - Health Conditions 1. Rarely or not at all 2. Occasionally 3. Frequently 4. Almost constantly 8. Unable to answer Pain Effect on Sleep: 1 Pain Interference with Therapy: 1 Pain Interference w/Day-to-Day: 1 Transfers SCALE: Activities may be completed with or without assistive devices. 9-Ukowobyhnv-towijkc completes the activity by him/herself with no assistance from a helper. 5-Set-up or Clean-up Assistance-helper sets up or cleans up; patient completes activity. [place] assists only prior to or following the activity. 4-Supervision or Touching Assistance-helper provides verbal cues and/or touching/steadying and/or contact guard assistance as patient completes activity . Assistance may be provided throughout the activity or intermittently. 3-Partial/Moderate Assistance-helper does LESS THAN HALF the effort. [place] lifts, holds or supports trunk or limbs, but provides less than half the effort. 2-Substantial/Maximal Assistance-helper does MORE THAN HALF the effort. [place] lifts or holds trunk or limbs and provides more than half the effort. 7-Qnvzisyoc-uoxawn does ALL the effort. Patient does none of the effort to complete the activity. Or, the assistance of 2 or more helpers is required for the patient to complete the activity. If activity was not attempted, code reason: 7-Patient Refused. 9-Not Applicable-not attempted and the patient did not perform the activity before the current illness, exacerbation or injury. 10-Not Attempted due to Environmental Limitations-(lack of equipment, weather restraints, etc.). 88-Not Attempted due to Medical Conditions or Safety Concerns. Exercises Supine Ex: Ankle pumps, Quad Set, Glut sets, Heel Slides, Short Arc Quads, Straight leg raise, Hip abd/add Supine Reps: 20 Assessment Current Status: Poor Progress Patient tolerated bed LE exercises as listed above well. He was able to assist on most of them. Patient in bed post treatment with all needs met, nursing notified, call light in reach. PT Hearing Therapist Goals Hearing Therapist Goals PT Hearing Therapist Goals Time Frame: Jan 17, 2023 Roll Left & Right (QC): 2 Sit to Lying (QC): 1 Lying-Sitting on Side/Bed(QC): 1 PT Plan Problem List Problem List: Activity Tolerance, Functional Strength, Safety, Balance, Gait, Transfer, Bed Mobility, ROM Treatment/Plan Treatment Plan: Continue Plan of Care Treatment Plan: Bed Mobility, Education, Functional Activity Ever, Functional Strength, Safety, Therapeutic Exercise, Transfers Treatment Duration: Jan 17, 2023 Frequency: 6 times per week Estimated Hrs Per Day: .25 hour per day Patient and/or Family Agrees t: Yes Time Time In: 904 Time Out: 920 DATE: Jan 07, 2023 Total Billed Treatment Time: 16 Total Billed Treatment Visit, Ex YURIY BRIONES PT Jan 07, 2023 09:48
[2023-01-07] MEDS: HYDROmorphone 2 MG/ML VIAL (DILAUDID) IV PRN ×2 (12:09→22:37)
--- NOTE | 2023-01-07 13:32 | Progress Note ---
Subjective Subjective/Events-last exam Patient w/o complaints. Still weak. Tolerating PO diet and working with PT Review of Systems General: Malaise Pulmonary: No Dyspnea, No Cough Cardiovascular: No: Chest Pain, Palpitations, Edema Gastrointestinal: No: Nausea, Vomiting, Abdominal Pain, Diarrhea, Constipation Genitourinary: No Dysuria, No Frequency Neurological: Weakness, Incoordination Objective Exam Last Set of Vital Signs Vital Signs Date Time Temp Pulse Resp B/P (MAP) Pulse Ox O2 Delivery O2 Flow Rate FiO2 01/07/23 08:00 Nasal Cannula 4.00 01/07/23 07:50 36.4 60 19 139/65 (89) 99 01/05/23 15:22 36 Capillary Refill : I&O Intake and Output 01/07/23 00:00 Intake Total 1900 ml Output Total 1200 ml Balance 700 ml Intake Oral 1800 ml IV Total 100 ml Output Urine Total 1200 ml # Bowel Movements 1 General: Alert, Oriented X3, No Acute Distress HEENT: Mucous Memb Moist/[place] Lungs: Clear to Auscultation, Normal Air Movement Heart: Regular Rate, No Murmurs Abdomen: Normal Bowel Sounds, Soft, No Tenderness, No Masses Extremities: Other (1+ edema bilaterally) Neuro: Normal Speech Results/Procedures Lab Laboratory Tests 01/06/23 15:30: Glucometer 120H 01/06/23 20:20: Glucometer 136H 01/07/23 05:50: Glucometer 121H, White Blood Count 7.8, Red Blood Count 3.37L, Hemoglobin 10.5L, Hematocrit 33L, Mean Corpuscular Volume 97, Mean Corpuscular Hemoglobin 31, Mean Corpuscular Hemoglobin Concent 32, Red Cell Distribution Width 14.8H, Platelet Count 263, Mean Platelet Volume 11.5, Immature Granulocyte % (Auto) 1, Neutrophils (%) (Auto) 87H, Lymphocytes (%) (Auto) 5L, Monocytes (%) (Auto) 7, Eosinophils (%) (Auto) 0, Basophils (%) (Auto) 0, Neutrophils # (Auto) 6.8, Lymphocytes # (Auto) 0.4L, Monocytes # (Auto) 0.5, Eosinophils # (Auto) 0.0, Basophils # (Auto) 0.0, Immature Granulocyte # (Auto) 0.1, Sodium Level 138, Potassium Level 5.5H, Chloride Level 106, Carbon Dioxide Level 26, Anion Gap 6, Blood Urea Nitrogen 33H, Creatinine 0.83, Estimat Glomerular Filtration Rate 94, BUN/Creatinine Ratio 40, Glucose Level 148H, Calcium Level 8.7, Corrected Calcium 9.7, Total Bilirubin 0.2, Aspartate Amino Transf (AST/SGOT) 14, Alanine Aminotransferase (ALT/SGPT) 22, Alkaline Phosphatase 54, Total Protein 5.0L, Albumin 2.7L 01/07/23 07:36: Glucometer 172H 01/07/23 10:30: Glucometer 207H Assessment/Plan Assessment/Plan (1) COPD exacerbation Status: Acute Assessment & Plan: 01/05: On his baseline oxygen, working on NH placement as patient has not been successful at home 01/06: Waiting for NH placement 01/07: Medically ok to d/c, waiting on NH placement (2) Acute kidney injury Status: Resolved Assessment & Plan: 01/05: Likely 2/2 to lasix, will continue to monitor, oral hydration 01/06: Resolved (3) Normocytic anemia Status: Chronic Assessment & Plan: 01/05: No signs of acute bleeding (4) Hypertension Status: Chronic (5) COPD (chronic obstructive pulmonary disease) Status: Chronic (6) Coronary artery disease Status: Chronic (7) Physical debility Status: Chronic Assessment & Plan: 01/05: Discussed the need for NH placement and patient agrees, he has not been successful at home and has had several readmissions to the hospital 01/07: awaiting NH placement BRYANNA VALENTIN MD Jan 07, 2023 13:32
--- NOTE | 2023-01-07 15:26 | Occupational Ther Daily Note ---
OT Current Status-Daily Note Subjective Patient is agreeable to HEP in bed Mental Status/Objective Patient Orientation: Situation ADL-Treatment Therapy Code Descriptions/Definitions Functional [place] Measure: 0=Not Assessed/NA 4=Minimal Assistance 1=Total Assistance 5=Supervision or Setup 2=Maximal Assistance 6=Modified [place] 3=Moderate Assistance 7=Complete IndependenceSCALE: Activities may be completed with or without assistive devices. 9-Vafbtlpeps-uczvdkk completes the activity by him/herself with no assistance from a helper. 5-Set-up or Clean-up Assistance-helper sets up or cleans up; patient completes activity. [place] assists only prior to or following the activity. 4-Supervision or Touching Assistance-helper provides verbal cues and/or touching/steadying and/or contact guard assistance as patient completes a ctivity. Assistance may be provided throughout the activity or intermittently. 3-Partial/Moderate Assistance-helper does LESS THAN HALF the effort. [place] lifts, holds or supports trunk or limbs, but provides less than half the effort. 2-Substantial/Maximal Assistance-helper does MORE THAN HALF the effort. [place] lifts or holds trunk or limbs and provides more than half the effort. 0-Qlsnmzaaq-yvyubd does ALL the effort. Patient does none of the effort to complete the activity. Or, the assistance of 2 or more helpers is required for the patient to complete the activity. If activity was not attempted, code reason: 7-Patient Refused. 9-Not Applicable-not attempted and the patient did not perform the activity before the current illness, exacerbation or injury. 10-Not Attempted due to Environmental Limitations-(lack of equipment, weather restraints, etc.). 88-Not Attempted due to Medical Conditions or Safety Concerns. Refuses all ADLs with OT Other Treatment BUE green theraband exercises. one set of 10 each UE for shoulder flex/ext/and, elbow flex/ex, digit isolation for flex/ext.Band left in room Education OT Patient Education: Home exercise program Teaching Recipient: Patient Teaching Methods: Demonstration, Discussion Response to Teaching: Verbalize Understanding, Reinforcement Needed OT Usp Goals Usp Goals Eating (QC): 6 Oral Hygiene (QC): 6 Toileting Hygiene (QC): 3 Shower/Bathe Self (QC): 3 Upper Body Dressing (QC): 5 Lower Body Dressing (QC): 4 On/Off Footwear (QC): 5 1=Demonstrate adherence to instructed precautions during ADL tasks. 2=Patient will verbalize/demonstrate understanding of assistive devices/modifications for ADL. 3=Patient will improve strength/tolerance for activity to enable patient to perform ADL's. OT Education/Plan Discharge Recommendations Plan/Recommendations: Continue POC Treatment Plan/Plan of Care Patient would benefit from OT for education, treatment and training to promote independence in ADL's, mobility, safety and/or upper extremity function for ADL's. Plan of Care: ADL Retraining, Functional Mobility, Group Exercise/Act as Ind, UE Funct Exercise/Act Treatment Duration: Jan 10, 2023 Frequency: 3 times per week (3-5 tmes per week) Estimated Hrs Per Day: .25 hour per day Agreement: Yes Rehab Potential: Guarded Time Start Time: 15:00 Stop Time: 15:28 DATE: Jan 07, 2023 Total Time Billed (hr/min): 28 Billed Treatment Time EX 2 28 min YANCI QUEVEDO OT Jan 07, 2023 15:26
[2023-01-07 15:54] VITALS: BP 144/73
[2023-01-07] MEDS: MELATONIN 3 MG TABLET PO PRN (19:33)
[2023-01-07 23:10] VITALS: BP 155/82
[2023-01-08 04:14] LABS: BASOPHILS % (AUTO) 0 % (0-10); EOSINOPHILS % (AUTO) 0 % (0-10); HEMATOCRIT 33 % (40-54); HEMOGLOBIN 10.6 g/dL (13.3-17.7); LYMPHOCYTES # (AUTO) 0.3 10^3/uL (1.0-4.0); LYMPHOCYTES % (AUTO) 4 % (12-44); MEAN CORPUSCULAR HEMOGLOBIN 31 pg (25-34); MEAN CORPUSCULAR HGB CONC 32 g/dL (32-36); MEAN CORPUSCULAR VOLUME 97 fL (80-99); MEAN PLATELET VOLUME 11.5 fL (9.0-12.2); MONOCYTES # (AUTO) 0.4 10^3/uL (0.0-1.0); MONOCYTES % (AUTO) 5 % (0-12); NEUTROPHILS # (AUTO) 6.9 10^3/uL (1.8-7.8); NEUTROPHILS % (AUTO) 91 % (42-75); PLATELET COUNT 275 10^3/uL (130-400); WHITE BLOOD COUNT 7.6 10^3/uL (4.3-11.0)
[2023-01-08 04:38] LABS: ANISOCYTOSIS SLIGHT; BAND NEUTROPHILS 0 %; BASOPHILS % (MANUAL) 0 %; EOSINOPHILS % (MANUAL) 0 %; LYMPHOCYTES % (MANUAL) 4 %; MONOCYTES % (MANUAL) 8 %; NEUTROPHILS % (MANUAL) 88 %; TOXIC GRANULATION/VACUOLAZATIO 1+
[2023-01-08 04:40] LABS: ALBUMIN 2.7 GM/DL (3.2-4.5); BILIRUBIN,TOTAL 0.3 MG/DL (0.1-1.0); CREATININE SERUM 0.95 MG/DL (0.60-1.30); POTASSIUM 4.9 MMOL/L (3.6-5.0); TOTAL PROTEIN 4.9 GM/DL (6.4-8.2)
[2023-01-08] MEDS: inSUlin ASPART (NovoLOG) 1 UNIT/0.01 ML (CHARGE PER UNIT) SC SCH ×4 (05:47→20:41)
[2023-01-08] MEDS: MEROPENEM 500 MG in NS (IVPB) 100 ML IV SCH (05:51)
--- NOTE | 2023-01-08 06:19 | Progress Note - Hospitalist ---
Subjective HPI/CC On Admission Date Seen by Provider: Jan 08, 2023 Time Seen by Provider: 11:00 " Subjective/Events-last exam Awaiting NHP No major issues DC abx since done Review of Systems General: Fatigue, Malaise Objective Exam Vital Signs Vital Signs Date Time Temp Pulse Resp B/P (MAP) Pulse Ox O2 Delivery O2 Flow Rate FiO2 01/08/23 19:39 Nasal Cannula 4.00 01/08/23 18:44 90 01/08/23 18:03 163/78 (106) 01/08/23 15:53 36.3 67 20 01/08/23 07:13 36 Capillary Refill : General Appearance: No Apparent Distress, WD/WN, Chronically ill Respiratory: Lungs Clear, Normal Breath Sounds Cardiovascular: Regular Rate, Rhythm Neurologic/Psychiatric: Alert, Oriented x3 Results/Procedures Lab Laboratory Tests 01/08/23 04:07 Patient resulted labs reviewed. Imaging: Reviewed Imaging Films, Reviewed Imaging Report Assessment/Plan Assessment and Plan Assess & Plan/Chief Complaint Assess & Plan/Chief Complaint AECOPD - Patient is now on baseline oxygen but had wheezing last night resolved with Lasix - Leukocytosis at outside facility has improved - CXR is negative for acute process, however recent hospitalization with urosepsis and AECOPD raises concern for MDR organism - Meropenem and Vanc started empirically - Oxygen, Duoneb inhaler (PEPE/KYLE) Flovent Inhaler (ICS), Solumedrol, albuterol neb PRN - Continue to monitor Diarrhea - Unknown Etiology - No diarrhea so far during hospital stay - Continue to monitor Hyperglycemia - Patient states is not on DM medications at home and has not had a recent check up to screen for DM - Will check A1c and start SSI Coronary Artery Disease Dual Chamber Pacemaker Placement - History of heart cath which showed non-obstructive atherosclerosis - History of Sinus Node Disfunction requiring pacemaker placement - ASA 81 Debility/Self-care Deficit - Patient reports having home health care M-F at home. Reports using mobility scooter to get around as unable to walk. - Patient had poor hygiene on presentation, unsure of ability to do ADLs. - PT/OT evaluation HTN - Patient states he is not currently taking any ambulatory medications for HTN. (Toprol on chart) - BP consistently elevated during this stay. Will start Losartan 50 and monitor response. If patient requires more medication for BP control would restart Toprol before increasing losartan. Anemia - Unknown Etiology - Monitor H+H HLD GERD - Continue ambulatory meds DVT Prophylaxis: Lovenox Dispo: ZOHREH WAGNER DO Jan 08, 2023 06:19
[2023-01-08] MEDS: RT-ALBUTEROL HFA 8.5 GM INHALER IH SCH ×2 (07:13→18:43)
[2023-01-08 07:44] VITALS: BP 176/80
[2023-01-08] MEDS: PANTOPRAZOLE 40 MG (PROTONIX) TAB PO SCH (08:35)
[2023-01-08] MEDS: ASPIRIN E.C. 81 MG (ECOTRIN) TAB PO SCH (08:35)
[2023-01-08] MEDS: methylPREDNISolone 40 MG/ML (Solu-MEDROL) VIAL IV SCH (08:35)
[2023-01-08] MEDS: GABAPENTIN 300 MG (NEURONTIN) CAP PO SCH ×3 (08:35→19:37)
[2023-01-08] MEDS: BETHANECHOL 10 MG (URECHOLINE) TAB PO SCH ×2 (08:35→19:37)
[2023-01-08] MEDS: SENNOSIDES 8.6 MG (SENOKOT) TAB PO SCH ×2 (08:35→19:37)
[2023-01-08] MEDS: ENOXAPARIN 40 MG/0.4 ML (LOVENOX) SYR SC SCH ×2 (08:36→19:37)
[2023-01-08] MEDS: RANOLAZINE ER 500 MG TAB (RANEXA) PO SCH ×2 (08:44→19:37)
--- NOTE | 2023-01-08 11:33 | Physical Therapy Daily Note ---
PT Daily Note-Current Subjective Patient agrees to therapy. Pain Section J - Health Conditions 1. Rarely or not at all 2. Occasionally 3. Frequently 4. Almost constantly 8. Unable to answer Pain Effect on Sleep: 1 Pain Interference with Therapy: 1 Pain Interference w/Day-to-Day: 1 Mental Status Patient Orientation: Person, Time, Situation Transfers SCALE: Activities may be completed with or without assistive devices. 9-Mvyuspqswz-yqikfpv completes the activity by him/herself with no assistance from a helper. 5-Set-up or Clean-up Assistance-helper sets up or cleans up; patient completes activity. [place] assists only prior to or following the activity. 4-Supervision or Touching Assistance-helper provides verbal cues and/or touching/steadying and/or contact guard assistance as patient completes activity. Assistance may be provided throughout the activity or intermittently. 3-Partial/Moderate Assistance-helper does LESS THAN HALF the effort. [place] lifts, holds or supports trunk or limbs, but provides less than half the effort. 2-Substantial/Maximal Assistance-helper does MORE THAN HALF the effort. [place] lifts or holds trunk or limbs and provides more than half the effort. 2-Owxhlpgxf-oyrcrp does ALL the effort. Patient does none of the effort to complete the activity. Or, the assistance of 2 or more helpers is required for the patient to complete the activity. If activity was not attempted, code reason: 7-Patient Refused. 9-Not Applicable-not attempted and the patient did not perform the activity before the current illness, exacerbation or injury. 10-Not Attempted due to Environmental Limitations-(lack of equipment, weather restraints, etc.). 88-Not Attempted due to Medical Conditions or Safety Concerns. Sit to Lying (QC): 6 Lying to Sitting/Side of Bed(Q: 6 Toilet Transfer (QC): 1 (x 2 to commode) patient sat EOB for several minutes performing bilateral LE and UE exercises Gait Training Does the Patient Walk?: No and Walking Goal NOT indicated Exercises Supine Ex: Ankle pumps, Quad Set, Heel Slides, Straight leg raise, Hip abd/add Supine Reps: 15 (x 2 sets AAROM bilaterally) Seated Therapy Exercises: Ankle pumps, Long arc quads Seated Reps: 15 (x 2 sets) Assessment Patient tolerated treatment well. Did increase activity and participation on this date. Patient motivated with progress. Education on importance of participating with therapy to improve strength and mobility. Patient voices understanding. PT Personnel Administrator Goals Personnel Administrator Goals PT Personnel Administrator Goals Time Frame: Jan 17, 2023 Roll Left & Right (QC): 2 Sit to Lying (QC): 1 Lying-Sitting on Side/Bed(QC): 1 PT Plan Treatment/Plan Treatment Plan: Continue Plan of Care Treatment Plan: Bed Mobility, Education, Functional Activity Ever, Functional Strength, Safety, Therapeutic Exercise, Transfers Treatment Duration: Jan 17, 2023 Frequency: 6 times per week Estimated Hrs Per Day: .25 hour per day Patient and/or Family Agrees t: Yes Time Time In: 1041 Time Out: 1104 DATE: Jan 08, 2023 Total Billed Treatment Time: 23 Total Billed Treatment 1 visit EX 15 min FA 8 min DAMIR VILLALOBOS PT Jan 08, 2023 11:33
--- NOTE | 2023-01-08 15:25 | Occupational Ther Daily Note ---
OT Current Status-Daily Note Subjective Pt requires moderate encouragement and verbal education for purpose and roles of OT/patient. Patient agrees to therapy Mental Status/Objective Patient Orientation: Situation Attachments: [place] Catheter ADL-Treatment Patient contradicts ADL performances w/ commode, BSC and transfers, OT encourages patient to demonstrate performance to clarify ability and tasks to work towards task as patient reports he want to go home Therapy Code Descriptions/Definitions Functional [place] Measure: 0=Not Assessed/NA 4=Minimal Assistance 1=Total Assistance 5=Supervision or Setup 2=Maximal Assistance 6=Modified [place] 3=Moderate Assistance 7=Complete IndependenceSCALE: Activities may be completed with or without assistive devices. 3-Pnijayudlb-kxeeajh completes the activity by him/herself with no assistance from a helper. 5-Set-up or Clean-up Assistance-helper sets up or cleans up; patient completes activity. [place] assists only prior to or following the activity. 4-Supervision or Touching Assistance-helper provides verbal cues and/or touching/steadying and/or contact guard assistance as patient completes activity. Assistance may be provided throughout the activity or intermittently. 3-Partial/Moderate Assistance-helper does LESS THAN HALF the effort. [place] lifts, holds or supports trunk or limbs, but provides less than half the effort. 2-Substantial/Maximal Assistance-helper does MORE THAN HALF the effort. [place] lifts or holds trunk or limbs and provides more than half the effort. 7-Yhxwxlbsc-vmeqwj does ALL the effort. Patient does none of the effort to complete the activity. Or, the assistance of 2 or more helpers is required for the patient to complete the activity. If activity was not attempted, code reason: 7-Patient Refused. 9-Not Applicable-not attempted and the patient did not perform the activity before the current illness, exacerbation or injury. 10-Not Attempted due to Environmental Limitations-(lack of equipment, weather restraints, etc.). 88-Not Attempted due to Medical Conditions or Safety Concerns. Eating (QC): 6 Oral Hygiene (QC): 5 Shower/Bathe Self (QC): 7 Upper Body Dressing (QC): 5 Lower Body Dressing (QC): 3 (rolling in bed) On/Off Footwear: 5 Toileting Hygiene (QC): 3 Toilet Transfer (QC): 1 (Drop arm BSC placed 90 to bed, patient reprts he is able to perform this transfer at home. Patient required 2 person assist to safely depression pivot from bed to BSC, required assistance to regain sitting balance on BSC.) Patient acknowledges he probably can not function safely at home Other Treatment Patient c/o being bored and nothing to do when in bed or on recliner. OT provided HEP and manipulative for patient to gain strength, offered puzzles and crossword, word finds Education OT Patient Education: Correct positioning, Exercise program, Modified ADL techniques, Purpose of tx/functional activities, Reviewed precautions, Rehab process, Safety issues, Transfer techniques, Use of adapted equipment, W/C management Teaching Recipient: Patient Teaching Methods: Demonstration, Discussion Response to Teaching: Verbalize Understanding OT Senior Living Goals Truckload Owner Operator Goals Eating (QC): 6 Oral Hygiene (QC): 6 Toileting Hygiene (QC): 3 Shower/Bathe Self (QC): 3 Upper Body Dressing (QC): 5 Lower Body Dressing (QC): 4 On/Off Footwear (QC): 5 1=Demonstrate adherence to instructed precautions during ADL tasks. 2=Patient will verbalize/demonstrate understanding of assistive devices/modifications for ADL. 3=Patient will improve strength/tolerance for activity to enable patient to perform ADL's. OT Education/Plan Discharge Recommendations Plan/Recommendations: Continue POC Treatment Plan/Plan of Care Patient would benefit from OT for education, treatment and training to promote independence in ADL's, mobility, safety and/or upper extremity function for ADL's. Plan of Care: ADL Retraining, Functional Mobility, Group Exercise/Act as Ind, UE Funct Exercise/Act Treatment Duration: Jan 10, 2023 Frequency: 3 times per week (3-5 tmes per week) Estimated Hrs Per Day: .25 hour per day Agreement: Yes Rehab Potential: Guarded Time Start Time: 10:21 Stop Time: 11:03 DATE: Jan 08, 2023 Total Time Billed (hr/min): 42 Billed Treatment Time ADL 2, EX 1 42 min YANCI QUEVEDO OT Jan 08, 2023 15:25
[2023-01-08 15:53] VITALS: BP 192/86
[2023-01-08] MEDS: HYDROmorphone 2 MG/ML VIAL (DILAUDID) IV PRN (17:35)
[2023-01-08 18:03] VITALS: BP 163/78
[2023-01-08] MEDS: MELATONIN 3 MG TABLET PO PRN (19:37)
[2023-01-08 23:06] VITALS: BP 154/67
[2023-01-09] MEDS: HYDROmorphone 2 MG/ML VIAL (DILAUDID) IV PRN (03:35)
[2023-01-09 03:54] LABS: BASOPHILS % (AUTO) 0 % (0-10); EOSINOPHILS % (AUTO) 0 % (0-10); HEMATOCRIT 32 % (40-54); HEMOGLOBIN 10.2 g/dL (13.3-17.7); LYMPHOCYTES # (AUTO) 0.8 10^3/uL (1.0-4.0); LYMPHOCYTES % (AUTO) 9 % (12-44); MEAN CORPUSCULAR HEMOGLOBIN 31 pg (25-34); MEAN CORPUSCULAR HGB CONC 32 g/dL (32-36); MEAN CORPUSCULAR VOLUME 96 fL (80-99); MEAN PLATELET VOLUME 11.5 fL (9.0-12.2); MONOCYTES # (AUTO) 0.8 10^3/uL (0.0-1.0); MONOCYTES % (AUTO) 9 % (0-12); NEUTROPHILS # (AUTO) 7.5 10^3/uL (1.8-7.8); NEUTROPHILS % (AUTO) 81 % (42-75); PLATELET COUNT 276 10^3/uL (130-400); WHITE BLOOD COUNT 9.3 10^3/uL (4.3-11.0)
[2023-01-09 04:06] LABS: ALBUMIN 2.7 GM/DL (3.2-4.5); POTASSIUM 4.5 MMOL/L (3.6-5.0)
[2023-01-09 04:07] LABS: CALCIUM 8.8 MG/DL (8.5-10.1)
[2023-01-09 04:08] LABS: TOTAL PROTEIN 4.7 GM/DL (6.4-8.2)
[2023-01-09 04:10] LABS: BILIRUBIN,TOTAL 0.3 MG/DL (0.1-1.0)
[2023-01-09 04:12] LABS: CREATININE SERUM 0.91 MG/DL (0.60-1.30)
[2023-01-09] MEDS: inSUlin ASPART (NovoLOG) 1 UNIT/0.01 ML (CHARGE PER UNIT) SC SCH ×2 (04:23→11:33)
--- NOTE | 2023-01-09 05:45 | Progress Note - Hospitalist ---
Subjective HPI/CC On Admission Date Seen by Provider: Jan 09, 2023 Time Seen by Provider: 11:00 " Objective Exam Vital Signs Vital Signs Date Time Temp Pulse Resp B/P (MAP) Pulse Ox O2 Delivery O2 Flow Rate FiO2 01/09/23 09:39 Nasal Cannula 4.00 01/09/23 07:25 36.1 62 18 136/70 (92) 99 01/08/23 07:13 36 Capillary Refill : Results/Procedures Lab Laboratory Tests 01/09/23 03:38 Patient resulted labs reviewed. Imaging: Reviewed Imaging Films, Reviewed Imaging Report Assessment/Plan Assessment and Plan Assess & Plan/Chief Complaint Assess & Plan/Chief Complaint AECOPD - Patient is now on baseline oxygen but had wheezing last night resolved with Lasix - Leukocytosis at outside facility has improved - CXR is negative for acute process, however recent hospitalization with urosepsis and AECOPD raises concern for MDR organism - Meropenem and Vanc started empirically - Oxygen, Duoneb inhaler (PEPE/KYLE) Flovent Inhaler (ICS), Solumedrol, albuterol neb PRN - Continue to monitor Diarrhea - Unknown Etiology - No diarrhea so far during hospital stay - Continue to monitor Hyperglycemia - Patient states is not on DM medications at home and has not had a recent check up to screen for DM - Will check A1c and start SSI Coronary Artery Disease Dual Chamber Pacemaker Placement - History of heart cath which showed non-obstructive atherosclerosis - History of Sinus Node Disfunction requiring pacemaker placement - ASA 81 Debility/Self-care Deficit - Patient reports having home health care M-F at home. Reports using mobility scooter to get around as unable to walk. - Patient had poor hygiene on presentation, unsure of ability to do ADLs. - PT/OT evaluation HTN - Patient states he is not currently taking any ambulatory medications for HTN. (Toprol on chart) - BP consistently elevated during this stay. Will start Losartan 50 and monitor response. If patient requires more medication for BP control would restart Toprol before increasing losartan. Anemia - Unknown Etiology - Monitor H+H HLD GERD - Continue ambulatory meds DVT Prophylaxis: Lovenox Dispo: [facility] ZOHREH BHANDARI DO Jan 09, 2023 05:45
[2023-01-09] MEDS: RT-ALBUTEROL HFA 8.5 GM INHALER IH SCH (07:16)
[2023-01-09 07:25] VITALS: BP 136/70
[2023-01-09] MEDS ORDERED: methylPREDNISolone 40 MG/ML (Solu-MEDROL) VIAL IV SCH (09:00)
[2023-01-09] MEDS: SENNOSIDES 8.6 MG (SENOKOT) TAB PO SCH (09:16)
[2023-01-09] MEDS: ASPIRIN E.C. 81 MG (ECOTRIN) TAB PO SCH (09:16)
[2023-01-09] MEDS: BETHANECHOL 10 MG (URECHOLINE) TAB PO SCH (09:16)
[2023-01-09] MEDS: PANTOPRAZOLE 40 MG (PROTONIX) TAB PO SCH (09:17)
[2023-01-09] MEDS: GABAPENTIN 300 MG (NEURONTIN) CAP PO SCH ×2 (09:17→12:11)
[2023-01-09] MEDS: ENOXAPARIN 40 MG/0.4 ML (LOVENOX) SYR SC SCH (09:18)
[2023-01-09] MEDS: RANOLAZINE ER 500 MG TAB (RANEXA) PO SCH (09:21)
--- NOTE | 2023-01-09 10:59 | Physical Therapy Daily Note ---
PT Daily Note-Current Subjective Patient agrees to therapy. Pain Section J - Health Conditions 1. Rarely or not at all 2. Occasionally 3. Frequently 4. Almost constantly 8. Unable to answer Pain Effect on Sleep: 1 Pain Interference with Therapy: 1 Pain Interference w/Day-to-Day: 1 Mental Status Patient Orientation: Normal For Age Attachments: Oxygen, Fermin Catheter Transfers SCALE: Activities may be completed with or without assistive devices. 5-Zbyjcgzyvh-xyvexqt completes the activity by him/herself with no assistance from a helper. 5-Set-up or Clean-up Assistance-helper sets up or cleans up; patient completes activity. [place] assists only prior to or following the activity. 4-Supervision or Touching Assistance-helper provides verbal cues and/or touching/steadying and/or contact guard assistance as patient completes activity. Assistance may be provided throughout the activity or intermittently. 3-Partial/Moderate Assistance-helper does LESS THAN HALF the effort. [place] lifts, holds or supports trunk or limbs, but provides less than half the effort. 2-Substantial/Maximal Assistance-helper does MORE THAN HALF the effort. [place] lifts or holds trunk or limbs and provides more than half the effort. 3-Plosdrcby-hpazqu does ALL the effort. Patient does none of the effort to complete the activity. Or, the assistance of 2 or more helpers is required for the patient to complete the activity. If activity was not attempted, code reason: 7-Patient Refused. 9-Not Applicable-not attempted and the patient did not perform the activity before the current illness, exacerbation or injury. 10-Not Attempted due to Environmental Limitations-(lack of equipment, weather restraints, etc.). 88-Not Attempted due to Medical Conditions or Safety Concerns. Sit to Lying (QC): 6 Lying to Sitting/Side of Bed(Q: 6 Exercises Seated Therapy Exercises: Long arc quads Seated Reps: 50 Assessment Patient sat EOB for several minutes performing exercises bilateral UE and LE. Patient progressing with treatment plan. PT Retirement Goals Retirement Goals PT Retirement Goals Time Frame: Jan 17, 2023 Roll Left & Right (QC): 2 Sit to Lying (QC): 1 Lying-Sitting on Side/Bed(QC): 1 PT Plan Treatment/Plan Treatment Plan: Continue Plan of Care Treatment Plan: Bed Mobility, Education, Functional Activity Ever, Functional Strength, Safety, Therapeutic Exercise, Transfers Treatment Duration: Jan 17, 2023 Frequency: 6 times per week Estimated Hrs Per Day: .25 hour per day Patient and/or Family Agrees t: Yes Time Time In: 924 Time Out: 940 DATE: Jan 09, 2023 Total Billed Treatment Time: 16 Total Billed Treatment 1 visit EX 16 min DAMIR VILLALOBOS PT Jan 09, 2023 10:59
--- NOTE | 2023-01-09 11:21 | Occupational Ther Daily Note ---
OT Current Status-Daily Note Subjective IMPROVED MOTIVATION AND PARTICIPATION NOTED TODAY FOLLOW YESTERDAY OT SESSION Mental Status/Objective Patient Orientation: Person, Situation Attachments: Fermin Catheter (MANAGES FROM ONE SIDE OF BED TO OTHER W. VCs) BED ALARM ADL-Treatment Therapy Code Descriptions/Definitions Functional [place] Measure: 0=Not Assessed/NA 4=Minimal Assistance 1=Total Assistance 5=Supervision or Setup 2=Maximal Assistance 6=Modified [place] 3=Moderate Assistance 7=Complete IndependenceSCALE: Activities may be completed with or without assistive devices. 3-Vzazgxwaiy-keptzet completes the activity by him/herself with no assistance from a helper. 5-Set-up or Clean-up Assistance-helper sets up or cleans up; patient completes activity. [place] assists only prior to or following the activity. 4-Supervision or Touching Assistance-helper provides verbal cues and/or touching/steadying and/or contact guard assistance as patient completes activity. Assistance may be provided throughout the activity or intermittently. 3-Partial/Moderate Assistance-helper does LESS THAN HALF the effort. [place] lifts, holds or supports trunk or limbs, but provides less than half the effort. 2-Substantial/Maximal Assistance-helper does MORE THAN HALF the effort. [place] lifts or holds trunk or limbs and provides more than half the effort. 5-Hlafvbcga-inzmyu does ALL the effort. Patient does none of the effort to complete the activity. Or, the assistance of 2 or more helpers is required for the patient to complete the activity. If activity was not attempted, code reason: 7-Patient Refused. 9-Not Applicable-not attempted and the patient did not perform the activity before the current illness, exacerbation or injury. 10-Not Attempted due to Environmental Limitations-(lack of equipment, weather restraints, etc.). 88-Not Attempted due to Medical Conditions or Safety Concerns. Other Treatment EOB, FUNCTIONAL EXERCISE W/ GREEN THERABAND, DYNAMIC SITTING BALNCE FOR ADL REACHING, PLACEMENT OF THERABAND ON BED RAIL FOR VARIATION OF HEP Education OT Patient Education: Correct positioning, Exercise program, Home exercise program, Progress toward Goal/Update tx plan, Purpose of tx/functional activities, Reviewed precautions, Rehab process, Safety issues Teaching Recipient: Patient Teaching Methods: Demonstration Response to Teaching: Verbalize Understanding, Reinforcement Needed OT Warp Tester Goals Warp Tester Goals Eating (QC): 6 Oral Hygiene (QC): 6 Toileting Hygiene (QC): 3 Shower/Bathe Self (QC): 3 Upper Body Dressing (QC): 5 Lower Body Dressing (QC): 4 On/Off Footwear (QC): 5 1=Demonstrate adherence to instructed precautions during ADL tasks. 2=Patient will verbalize/demonstrate understanding of assistive devices/modifications for ADL. 3=Patient will improve strength/tolerance for activity to enable patient to perform ADL's. OT Education/Plan Discharge Recommendations Plan/Recommendations: Continue POC Treatment Plan/Plan of Care Patient would benefit from OT for education, treatment and training to promote independence in ADL's, mobility, safety and/or upper extremity function for ADL's. Plan of Care: ADL Retraining, Functional Mobility, Group Exercise/Act as Ind, UE Funct Exercise/Act Treatment Duration: Jan 10, 2023 Frequency: 3 times per week (3-5 tmes per week) Estimated Hrs Per Day: .25 hour per day Agreement: Yes Rehab Potential: Guarded PATIENT REQUIRED ASSIST OF 2 FOR HOB POSITION Time Start Time: 09:20 Stop Time: 09:42 DATE: Jan 09, 2023 Total Time Billed (hr/min): 22 Billed Treatment Time EX 2 22 MIN YANCI QUEVEDO OT Jan 09, 2023 11:21
[2023-01-09] MEDS ORDERED: ASPI-1238 PO (11:39)
[2023-01-09] MEDS ORDERED: OXC5T PO (11:39)
[2023-01-09] MEDS ORDERED: ALBU8.5H6 INH (11:39)
[2023-01-09] MEDS ORDERED: ACET325T49 PO (11:39)
[2023-01-09] MEDS ORDERED: GABA300C PO (11:39)
[2023-01-09] MEDS ORDERED: ENOX40DI8 SC (11:39)
[2023-01-09] MEDS ORDERED: MTP25TSR PO (11:39)
[2023-01-09] MEDS ORDERED: RANO500T6 PO (11:39)
[2023-01-09] MEDS ORDERED: LOPE2CAP14 PO (11:39)
[2023-01-09] MEDS ORDERED: PANT40TA52 PO (11:39)
[2023-01-09] MEDS ORDERED: INSU100I88 SQ (11:39)
[2023-01-09] MEDS ORDERED: PRED10TA22 PO (11:39)
[2023-01-09] MEDS ORDERED: BTH10T PO (11:39)
--- NOTE | 2023-01-09 11:40 | Discharge Inst-Skilled Nursing ---
Discharge Inst-Skilled NF Reconcile Patient Problems Problems Reviewed?: Yes Chief Complaint " Patient Instructions Patient Problems: Debility COPD Consult/Follow Up/Orders Follow Up Appt.: PCP [place] rounds Skilled NF Admit to: [facility], [place], [facility] (SNF) I certify that SNF services are required to be given on an inpatient basis because of the above named patient's need for senior care care on a continuing basis for the conditions(s) for which he/she was receiving inpatient hospital services prior to his/her transfer to the SNF. Penitentiary Facility Order: Nursing Services, [employer] Salesperson-Evaluate & Treat, Physical Therapy-Evaluate & Treat Oxygen Delivery Method: Nasal Cannula Discharge Diet: No Restrictions Daily Activity as Tolerated: Yes Resuscitation Status: Full Code New & Resume Previous Orders New Medications: Insulin Detemir (Levemir Flexpen) 100 Unit/Ml (3 Ml) Insuln.pen 15 UNIT SQ BID, #1 EA Prednisone (Prednisone) 10 Mg Tab.ds.pk 10 MG PO DAILY, #42 EA Take 6 tabs(60mg)daily,decrease by 1 tab(10mg)every other day. Acetaminophen (Acetaminophen) 325 Mg Tablet 650 MG PO Q4H PRN for TEMPERATURE, #30 TAB Enoxaparin Sodium (Enoxaparin Sodium) 40 Mg/0.4 Ml Syringe 40 MG SC Q12H, #14 SYRINGE Oxycodone Hcl (Oxyir Tablet) 5 Mg Tab 10 MG PO Q6H PRN for PAIN-SEE DOSE INSTRUCTIONS, #30 TAB Changed Medications: Albuterol Sulfate (Ventolin Hfa) 90 Mcg Hfa.aer.ad 2 PUFF INH Q6H PRN for SHORTNESS OF BREATH, #1 EACH (Changed from: Albuterol Sulfate (Ventolin Hfa) 1 Puff Puff 2 Puff INH Q6H PRN SHORTNESS OF BREATH) Continued Medications: Aspirin (Aspirin EC) 81 Mg Tablet.dr 81 MG PO DAILY, #30 TAB (This prescription has been renewed) Bethanechol Chloride (Urecholine) 10 Mg Tablet 10 MG PO BID, #60 TAB (This prescription has been renewed) Gabapentin (Neurontin) 300 Mg Capsule 300 MG PO TID, #90 CAP (This prescription has been renewed) Loperamide HCl (Anti-Diarrheal) 2 Mg Capsule 2-4 MG PO UD PRN for DIARRHEA, #60 CAP (This prescription has been renewed) Metoprolol Succinate (Metoprolol Succinate) 25 Mg Tab.er.24h 25 MG PO DAILY, #30 TAB (This prescription has been renewed) Pantoprazole Sodium (Pantoprazole Sodium) 40 Mg Tablet.dr 40 MG PO DAILY, #30 TAB (This prescription has been renewed) Ranolazine (Ranolazine ER) 500 Mg Tab.er.12h 500 MG PO BID, #60 TAB (This prescription has been renewed) Kirsten Sanz Jan 09, 2023 11:40 KIRSTEN SANZ DO Jan 09, 2023 11:40
--- NOTE | 2023-01-09 11:41 | Discharge Summary ---
Discharge Summary Hospital Course Was the Problem List Reviewed?: Yes Problems/Dx: (1) Pneumonia (2) CHF (congestive heart failure) Status: Chronic (3) COPD exacerbation Status: Acute Hospital Course Date of Admission: Jan 01, 2023 at 14:45 Admission Diagnosis : [facility] Physician/Provider[facility] Date of Discharge: 01/09/23 Discharge Diagnosis: [ ] Hospital Course: Lengthy course after he was readmitted after a few days from DC for acute resp failure requiring IV abx and IV steroids and aggressive care to regain lung function. PT OT consulted. Patient ultimately agreed to [facility] and Tena obtained approval and he was DC in improved condition. Labs and Pending Lab Test: Laboratory Tests 01/08/23 15:56: Glucometer 141H 01/08/23 20:08: Glucometer 171H 01/09/23 03:38: White Blood Count 9.3, Red Blood Count 3.31L, Hemoglobin 10.2L, Hematocrit 32L, Mean Corpuscular Volume 96, Mean Corpuscular Hemoglobin 31, Mean Corpuscular Hemoglobin Concent 32, Red Cell Distribution Width 14.7H, Platelet Count 276, Mean Platelet Volume 11.5, Immature Granulocyte % (Auto) 1, Neutrophils (%) (Auto) 81H, Lymphocytes (%) (Auto) 9L, Monocytes (%) (Auto) 9, Eosinophils (%) (Auto) 0, Basophils (%) (Auto) 0, Neutrophils # (Auto) 7.5, Lymphocytes # (Auto) 0.8L, Monocytes # (Auto) 0.8, Eosinophils # (Auto) 0.0, Basophils # (Auto) 0.0, Immature Granulocyte # (Auto) 0.1, Sodium Level 140, Potassium Level 4.5, Chloride Level 104, Carbon Dioxide Level 26, Anion Gap 10, Blood Urea Nitrogen 36H, Creatinine 0.91, Estimat Glomerular Filtration Rate 91, BUN/Creatinine Ratio 40, Glucose Level 119H, Calcium Level 8.8, Corrected Calcium 9.8, Total Bilirubin 0.3, Aspartate Amino Transf (AST/SGOT) 12, Alanine Aminotransferase (ALT/SGPT) 18, Alkaline Phosphatase 54, Total Protein 4.7L, Albumin 2.7L 01/09/23 11:30: Glucometer 141H Home Meds Active Prednisone 10 Mg Tab.ds.pk 10 Mg PO DAILY Take 6 tabs(60mg)daily,decrease by 1 tab(10mg)every other day. Levemir Flexpen (Insulin Detemir) 100 Unit/Ml (3 Ml) Insuln.pen 15 Unit SQ BID Acetaminophen 325 Mg Tablet 650 Mg PO Q4H PRN Oxyir Tablet (Oxycodone HCl) 5 Mg Tab 10 Mg PO Q6H PRN Enoxaparin Sodium 40 Mg/0.4 Ml Syringe 40 Mg SC Q12H Anti-Diarrheal (Loperamide HCl) 2 Mg Capsule 2-4 Mg PO UD PRN Aspirin EC (Aspirin) 81 Mg Tablet.dr 81 Mg PO DAILY Urecholine (Bethanechol Chloride) 10 Mg Tablet 10 Mg PO BID Ranolazine ER (Ranolazine) 500 Mg Tab.er.12h 500 Mg PO BID Metoprolol Succinate 25 Mg Tab.er.24h 25 Mg PO DAILY Pantoprazole Sodium 40 Mg Tablet.dr 40 Mg PO DAILY Neurontin (Gabapentin) 300 Mg Capsule 300 Mg PO TID Ventolin Hfa (Albuterol Sulfate) 90 Mcg Hfa.aer.ad 2 Puff INH Q6H PRN Assessment/Pt Instructions PCP 1 week Discharge Planning: <30 minutes discharge planning Discharge Instructions Discharge Diet: No Restrictions Discharge Physical Examination Vital Signs Vital Signs Date Time Temp Pulse Resp B/P (MAP) Pulse Ox O2 Delivery O2 Flow Rate FiO2 01/09/23 09:39 Nasal Cannula 4.00 01/09/23 07:25 36.1 62 18 136/70 (92) 99 01/08/23 07:13 36 General Appearance: No Apparent Distress, WD/WN, Chronically ill Respiratory: Lungs Clear, Normal Breath Sounds Cardiovascular: Regular Rate, Rhythm Allergies: Coded Allergies: codeine (Verified Allergy, Mild, HIVES...TAKES OXYCODONE & MS CONTIN AT HOME, 03/11/19) streptokinase (Verified Allergy, Unknown, 03/11/19) Discharge Summary Date of Admission Jan 01, 2023 at 14:45 Date of Discharge Admission Diagnosis AECOPD Diarrhea, unknown etiology Discharge Diagnosis Assess & Plan/Chief Complaint AECOPD - Patient is now on baseline oxygen but had wheezing last night resolved with Lasix - Leukocytosis at outside facility has improved - CXR is negative for acute process, however recent hospitalization with urosepsis and AECOPD raises concern for MDR organism - Meropenem and Vanc started empirically - Oxygen, Duoneb inhaler (PEPE/YKLE) Flovent Inhaler (ICS), Solumedrol, albuterol neb PRN - Continue to monitor Diarrhea - Unknown Etiology - No diarrhea so far during hospital stay - Continue to monitor Hyperglycemia - Patient states is not on DM medications at home and has not had a recent check up to screen for DM - Will check A1c and start SSI Coronary Artery Disease Dual Chamber Pacemaker Placement - History of heart cath which showed non-obstructive atherosclerosis - History of Sinus Node Disfunction requiring pacemaker placement - ASA 81 Debility/Self-care Deficit - Patient reports having home health care M-F at home. Reports using mobility scooter to get around as unable to walk. - Patient had poor hygiene on presentation, unsure of ability to do ADLs. - PT/OT evaluation HTN - Patient states he is not currently taking any ambulatory medications for HTN. (Toprol on chart) - BP consistently elevated during this stay. Will start Losartan 50 and monitor response. If patient requires more medication for BP control would restart Toprol before increasing losartan. Anemia - Unknown Etiology - Monitor H+H HLD GERD - Continue ambulatory meds DVT Prophylaxis: Lovenox Dispo: [facility] ZOHREH BHANDARI DO Jan 09, 2023 11:40
[2023-01-09 15:10] VITALS: BP 136/70
== END 2023-01-09 15:10 ==
LOC: INTOOBSV 14:45 → CSD 14:45 → 4TH 01-02 14:18
PROVIDERS: ADMIT Internal Medicine; ATTEND Family Medicine
DX: J44.1 Chronic obstructive pulmonary disease with (acute) exacerbation (principal); R19.7 Diarrhea, unspecified; R73.9 Hyperglycemia, unspecified; J96.00 Acute respiratory failure, unspecified whether with hypoxia or hypercapnia; I25.10 Atherosclerotic heart disease of native coronary artery without angina pectoris; D64.9 Anemia, unspecified; E78.5 Hyperlipidemia, unspecified; K21.9 Gastro-esophageal reflux disease without esophagitis; J18.9 Pneumonia, unspecified organism; I50.9 Heart failure, unspecified; I11.0 Hypertensive heart disease with heart failure; N17.9 Acute kidney failure, unspecified; Z95.0 Presence of cardiac pacemaker; Z79.82 Long term (current) use of aspirin; Z79.899 Other long term (current) drug therapy
CPT/HCPCS: 36410; 36415; 71045; 76937; 80048; 80053; 82947; 83036; 85007; 85025; 85027; 87636; 94640; 94760; 96366; 96372; 96374; 96375; 96376; G0378

== ENCOUNTER 2023-01-12 20:00 | Inpatient (IN) | payer MEDICARE, MEDICAID ==
[~2023-01-12] VITALS: Ht 156 cm; Wt 98.0 kg
[~2023-01-12 20:00] MED LIST changes: +ACET325T49 PO; +ENOX40DI8 SC; +INSU100I88 SQ; +INSU100V5 SQ; +LOPE2CAP14 PO
[2023-01-12] MEDS ORDERED: RT-ALBUTEROL HFA 8.5 GM INHALER IH STA (20:13)
[2023-01-12] MEDS ORDERED: NITROGLYCERIN 2% OINT 1 GM UNIT DOSE PACKET TOP STA (20:15)
[2023-01-12 20:36] LABS: BASOPHILS % (AUTO) 0 % (0-10); EOSINOPHILS % (AUTO) 0 % (0-10); HEMATOCRIT 37 % (40-54); HEMOGLOBIN 12.1 g/dL (13.3-17.7); LYMPHOCYTES # (AUTO) 1.1 10^3/uL (1.0-4.0); LYMPHOCYTES % (AUTO) 6 % (12-44); MEAN CORPUSCULAR HEMOGLOBIN 31 pg (25-34); MEAN CORPUSCULAR HGB CONC 33 g/dL (32-36); MEAN CORPUSCULAR VOLUME 94 fL (80-99); MEAN PLATELET VOLUME 11.1 fL (9.0-12.2); MONOCYTES # (AUTO) 0.8 10^3/uL (0.0-1.0); MONOCYTES % (AUTO) 4 % (0-12); NEUTROPHILS # (AUTO) 16.4 10^3/uL (1.8-7.8); NEUTROPHILS % (AUTO) 88 % (42-75); PLATELET COUNT 318 10^3/uL (130-400); WHITE BLOOD COUNT 18.7 10^3/uL (4.3-11.0)
--- NOTE | 2023-01-12 20:36 | ED General ---
General Chief Complaint: Chest Pain Stated Complaint: CHEST PAIN Nursing Triage Note: brought in by [facility] for chest pain radiating to left arm, right jaw, htn x30 min. Source of Information: Patient, Old Records Exam Limitations: No Limitations History of Present Illness Date Seen by Provider: Jan 12, 2023 Time Seen by Provider: 22:02 Initial Comments This 72-year-old gentleman presents to the emergency room via EMS with complaints of right-sided chest pain radiating to his jaw and down both arms. He is notably hypertensive with a blood pressure of 209/95 for EMS. Pain started about 30 minutes prior to arrival. He also has shortness of breath and appears to be in respiratory distress with wheezing. He is dependent on supplemental oxygen at 4 L at home. He is maintaining oxygen saturations in the 90s with this flow rate. He is presently a resident at [facility], [place] after a recent admission to the hospital. Patient has bibasilar crackles on pulmonary exam and feels febrile to the touch although his measured temperature is not febrile. He is presently on a prednisone taper. Allergies and Home Medications Allergies Coded Allergies: codeine (Verified Allergy, Mild, HIVES...TAKES OXYCODONE & MS CONTIN AT HOME, 03/11/19) streptokinase (Verified Allergy, Unknown, 03/11/19) Patient Home Medication List Home Medication List Reviewed: Yes Acetaminophen (Acetaminophen) 325 Mg Tablet, 650 MG PO Q4H PRN for TEMPERATURE Prescribed by: ZOHREH BHANDARI on 01/09/23 1139 Albuterol Sulfate (Ventolin Hfa) 90 Mcg Hfa.aer.ad, 2 PUFF INH Q6H PRN for SHORT NESS OF BREATH Prescribed by: ZOHREH BHANDARI on 01/09/23 1139 Aspirin (Aspirin EC) 81 Mg Tablet.dr, 81 MG PO DAILY Prescribed by: ZOHREH BHANDARI on 01/09/23 1139 Bethanechol Chloride (Urecholine) 10 Mg Tablet, 10 MG PO BID Prescribed by: ZOHREH BHANDARI on 01/09/23 1139 Enoxaparin Sodium (Enoxaparin Sodium) 40 Mg/0.4 Ml Syringe, 40 MG SC Q12H Prescribed by: ZOHREH BHANDARI on 01/09/23 1139 Gabapentin (Neurontin) 300 Mg Capsule, 300 MG PO TID Prescribed by: ZOHREH BHANDARI on 01/09/231138 Insulin Detemir (Levemir Flexpen) 100 Unit/Ml (3 Ml) Insuln.pen, 15 UNIT SQ BID Prescribed by: ZOHREH BHANDARI on 01/09/231138 Loperamide HCl (Anti-Diarrheal) 2 Mg Capsule, 2-4 MG PO UD PRN for DIARRHEA Prescribed by: ZOHREH BHANDARI on 01/09/231138 Metoprolol Succinate (Metoprolol Succinate) 25 Mg Tab.er.24h, 25 MG PO DAILY Prescribed by: ZOHREH BHANDARI on 01/09/231138 Oxycodone Hcl (Oxyir Tablet) 5 Mg Tab, 10 MG PO Q6H PRN for PAIN-SEE DOSE INSTRUCTIONS Prescribed by: ZOHREH BHANDARI on 01/09/231138 Pantoprazole Sodium (Pantoprazole Sodium) 40 Mg Tablet.dr, 40 MG PO DAILY Prescribed by: ZOHREH BHANDARI on 01/09/231138 Prednisone (Prednisone) 10 Mg Tab.ds.pk, 10 MG PO DAILY Prescribed by: ZOHREH BHANDARI on 01/09/231138 Ranolazine (Ranolazine ER) 500 Mg Tab.er.12h, 500 MG PO BID Prescribed by: ZOHREH BHANDARI on 01/09/231138 Review of Systems Review of Systems Constitutional: see HPI EENTM: no symptoms reported Respiratory: see HPI Cardiovascular: see HPI Gastrointestinal: no symptoms reported Genitourinary: no symptoms reported Musculoskeletal: no symptoms reported Skin: no symptoms reported Psychiatric/Neurological: No Symptoms Reported Hematologic/Lymphatic: No Symptoms Reported Past Opzzpyq-Asiagj-Plxrfe Hx Patient Social History Tobacco Use?: Yes Substance use?: No Alcohol Use?: No Pt feels they are or have been: No Immunizations Up To Date Tetanus Booster (TDap): Less than 5yrs PED Vaccines UTD: No First/Initial COVID19 Vaccinat: x2 Second COVID19 Vaccination Kuldip: x2 Third COVID19 Vaccination Date: x2 Seasonal Allergies Seasonal Allergies: No Past Medical History Surgery/Hospitalization HX: bilateral hip replacement/removal, cardiac cath, appendectomy, chronic pain, mi, cad, htn, constipation, non-compliance Surgeries: Yes (BILAT HIP REPLACEMENTS X 22; WOUND DEBRIDEMENTS) Abdominal, Appendectomy, Cardiac, Defibrillator, Joint Replacement, Orthopedic, Pacemaker Respiratory: Yes Asthma, COPD Currently Using CPAP: No Currently Using BIPAP: No Cardiac: Yes (PACEMAKER, CARDIAC ARREST, SELF - REPORTED MO X 8; CHF) Atrial Fibrillation, Chronic Edema/Swelling, Coronary Artery Disease, Congenital Heart Disease, Heart Attack, Hypertension, Irregular Heartbeat Neurological: Yes Neuropathy Reproductive Disorders: No Sexually Transmitted Disease: No HIV/AIDS: No Genitourinary: Yes Neurogenic Bladder Gastrointestinal: Yes Abdominal Hernia, Chronic Constipation Musculoskeletal: Yes (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;CHRONIC PAIN) Arthritis, Chronic Back Pain, Fractures Endocrine: Yes HEENT: Yes Loss of Vision: Denies Hearing Impairment: Hard of Hearing Cancer: No Psychosocial: Yes Integumentary: Yes (recurrent wound issues) Recent Skin Changes Blood Disorders: No Adverse Reaction/Blood Tranf: Yes (HIGH FEVER AND CHILLS) Family Medical History COPD Diabetes mellitus No Pertinent Family Hx Adopted, unknown FH SOCIAL HISTORY: -SMOKED IN THE PAST, QUIT -ETOH--LONG HISTORY OF ABUSE -DRUGS--EXTENSIVE ABUSE OF RX DRUGS, ESPECIALLY OPIATES PAST SURGICAL HISTORY: -MULTIPLE FAILED BILATERAL HIP REPLACEMENTS, WITH EVENTUAL REMOVAL OF BOTH FEMORAL HEADS -CARDIAC CATH 08/26/[address] LOPEZ: CORONARY ANGIOGRAPHY: Coronary calcification is seen. Left main coronary artery is free of significant disease. Left anterior descending artery does not exhibit significant disease. Left circumflex artery has 30% to 40% mid vessel stenosis at the site of the origin of a large obtuse marginal branch. IFR across this lesion is 0.96. This indicates that the lesion is hemodynamically nonsignificant. Right coronary artery is codominant with the left circumflex artery. It does not exhibit significant disease. LEFT VENTRICULAR ANGIOGRAPHY: Left ventricular angiography was carried out in the right anterior oblique projection. Global left ventricular systolic function is normal. No regional wall motion abnormalities seen. Left ventricular ejection fraction is approximately 60%. CONCLUSIONS: 1. Mild to moderate coronary artery disease, nonobstructive. 2. Normal global left ventricular systolic function with ejection fraction approximately 60%. 3. Normal left ventricular end-diastolic pressure. DISCUSSION AND RECOMMENDATIONS: Based on results of the study, it appears appropriate to continue a conservative approach. Physical Exam Vital Signs Vital Signs - First Documented 01/12/23 20:04 Temp 36.7 Pulse 87 Resp 18 B/P (MAP) 199/162 (174) Pulse Ox 96 O2 Delivery Nasal Cannula O2 Flow Rate 4.00 Capillary Refill : Less Than 3 Seconds Height, Weight, BMI Height: 5'8.00" Weight: 170lbs. 8.0oz. 77.236429gs; 44.00 BMI Method:Stated General Appearance: WD/WN, Mild Distress (Respiratory) HEENT: PERRL/EOMI, Normal ENT Inspection Neck: Normal Inspection Respiratory: Accessory Muscle Use, Crackles (Bibasilar), Wheezing Cardiovascular: Regular Rate, Rhythm, No Murmur Gastrointestinal: Non Tender, Soft Extremity: Other (Extensive bruising of the upper extremities from numerous IV attempts. Mild to moderate extremity edema) Neurologic/Psychiatric: Alert, Oriented x3, Normal Mood/Affect Skin: Warm/Dry, Ecchymosis Progress/Results/Core Measures Suspected Sepsis SIRS Temperature: Pulse: 87 Respiratory Rate: 18 Laboratory Tests 01/12/23 20:23: White Blood Count 18.7H Blood Pressure 199 /162 Mean: 174 Laboratory Tests 01/12/23 20:23: Creatinine 0.81, INR Comment 0.9, Platelet Count 318, Total Bilirubin 0.3 Results/Orders Lab Results Laboratory Tests Test 01/12/23 20:23 01/12/23 22:12 Range/Units White Blood Count 18.7 H 4.3-11.0 10^3/uL Red Blood Count 3.89 L 4.30-5.52 10^6/uL Hemoglobin 12.1 L 13.3-17.7 g/dL Hematocrit 37 L 40-54 % Mean Corpuscular Volume 94 80-99 fL Mean Corpuscular Hemoglobin 31 25-34 pg Mean Corpuscular Hemoglobin Concent 33 32-36 g/dL Red Cell Distribution Width 14.9 H 10.0-14.5 % Platelet Count 318 130-400 10^3/uL Mean Platelet Volume 11.1 9.0-12.2 fL Immature Granulocyte % (Auto) 1 % Neutrophils (%) (Auto) 88 H 42-75 % Lymphocytes (%) (Auto) 6 L 12-44 % Monocytes (%) (Auto) 4 0-12 % Eosinophils (%) (Auto) 0 0-10 % Basophils (%) (Auto) 0 0-10 % Neutrophils # (Auto) 16.4 H 1.8-7.8 10^3/uL Lymphocytes # (Auto) 1.1 1.0-4.0 10^3/uL Monocytes # (Auto) 0.8 0.0-1.0 10^3/uL Eosinophils # (Auto) 0.0 0.0-0.3 10^3/uL Basophils # (Auto) 0.0 0.0-0.1 10^3/uL Immature Granulocyte # (Auto) 0.3 H 0.0-0.1 10^3/uL Prothrombin Time 12.4 12.2-14.7 SEC INR Comment 0.9 0.8-1.4 Activated Partial Thromboplast Time 28 24-35 SEC Sodium Level 139 135-145 MMOL/L Potassium Level 5.4 H 3.6-5.0 MMOL/L Chloride Level 101 98-107 MMOL/L Carbon Dioxide Level 27 21-32 MMOL/L Anion Gap 11 5-14 MMOL/L Blood Urea Nitrogen 25 H 7-18 MG/DL Creatinine 0.81 0.60-1.30 MG/DL Estimat Glomerular Filtration Rate 95 BUN/Creatinine Ratio 31 Glucose Level 131 H 70-105 MG/DL Calcium Level 9.2 8.5-10.1 MG/DL Corrected Calcium 10.2 H 8.5-10.1 MG/DL Magnesium Level 1.5 L 1.6-2.4 MG/DL Total Bilirubin 0.3 0.1-1.0 MG/DL Aspartate Amino Transf (AST/SGOT) 20 5-34 U/L Alanine Aminotransferase (ALT/SGPT) 23 0-55 U/L Alkaline Phosphatase 62 40-136 U/L Myoglobin 39.4 10.0-92.0 NG/ML Troponin I 0.140 H 0.140 H <0.028 NG/ML C-Reactive Protein High Sensitivity 10.06 H 0.00-0.50 MG/DL B-Type Natriuretic Peptide 399.4 H <100.0 PG/ML Total Protein 5.8 L 6.4-8.2 GM/DL Albumin 2.7 L 3.2-4.5 GM/DL Influenza Type A (RT-PCR) Not Detected Not Detecte Influenza Type B (RT-PCR) Not Detected Not Detecte SARS-CoV-2 RNA (RT-PCR) Not Detected Not Detecte My Orders Orders - LUMA WADE MD Ekg Tracing (01/12/23 20:03) Cbc With Automated Diff (01/12/23 20:13) Magnesium (01/12/23 20:13) Chest 1 View, Ap/Pa Only (01/12/23 20:) Comprehensive Metabolic Panel (01/12/23 20:) Myoglobin Serum (01/12/23 20:13) Protime With Inr (01/12/23 20:13) Partial Thromboplastin Time (01/12/23 20:13) O2 (01/12/23 20:13) Monitor-Rhythm Ecg Trace Only (01/12/23 20:) Lipid Panel (01/13/23 06:00) Ed Iv/Invasive Line Start (01/12/23 20:13) Bnp Alexander (01/12/23 20:) Covid 19 Inhouse Test (01/12/23 20:13) Influenza A And B By Pcr (01/12/23 20:13) Albuterol Inhaler (Albuterol) (01/12/23 20:13) Nitroglycerin Ointment (Nitrobid Ointme (01/12/23 20:15) Hs C Reactive Protein (01/12/23:) Troponin I Ernesto (01/12/23:23) Troponin I Alexander (01/12/23 22:30) Albuterol/Ipra Inhalation Soln (Duoneb I (01/12/23 21:30) Svn Small Volume Nebulizer (01/12/23 21:22) Cefepime Injection (Maxipime Injection) (01/12/23 22:30) Magnesium Oxide Tablet (Mag Ox Tablet) (01/12/23 23:00) Morphine Injection (Morphine Injection (01/13/23 00:28) Medications Given in ED Current Medications Medications Dose Ordered Sig/Carl Route Start Time Stop Time Status Last Admin Dose Admin Albuterol/ Ipratropium 3 ml ONCE ONCE INH 01/12/23 21:30 01/12/23 21:31 DC 01/12/23 21:32 3 ML Cefepime HCl 2000 mg/Sodium Chloride 50 ml @ 100 mls/hr ONCE ONCE IV 01/12/23 22:30 01/12/23 22:59 DC 01/12/23 22:29 100 MLS/HR Magnesium Oxide 400 mg ONCE ONCE PO 01/12/23 23:00 01/12/23 23:01 DC 01/12/23 22:58 400 MG Vital Signs/I&O 01/12/23 01/12/23 20:04 20:04 Temp 36.7 Pulse 87 Resp 18 B/P (MAP) 199/162 (174) Pulse Ox 96 96 O2 Delivery Nasal Cannula Nasal Cannula O2 Flow Rate 4.00 4.00 01/13/23 00:00 Intake Total 50 ml Balance 50 ml Capillary Refill : Less Than 3 Seconds Blood Pressure Mean: 174 Progress Note : Progress Note Chest pain work-up was pursued. Troponin is chronically elevated but was a little higher than the typical trend at 0.14. This was repeated about 2 hours later and was unchanged. EKG demonstrated no ischemia by my interpretation. Other labs were reviewed including CBC, CMP, magnesium, BNP, and CRP. WBC was notably elevated at 18,000 which may be due to his recent steroid use. His CRP was not significantly elevated. BNP was mildly elevated. Chest x-ray revealed scattered infiltrates, mild congestion, and cardiomegaly. Patient was treated with DuoNeb which improved his breathing. Pneumonia was suspected and he was started on cefepime for broad-spectrum therapy. Nitroglycerin patch was applied for treatment of his hypertensive exacerbation and suspected congestive heart failure. Diuretics were not used as he was exhibiting significant urine output already from his Fermin catheter. ECG Initial ECG Impression Date: Jan 12, 2023 Initial ECG Impression Time: 20:12 Initial ECG Rate: 80 Comment Atrial paced rhythm with no ST elevation or depression. No abnormal intervals or axis deviation. Diagnostic Imaging Diagonstic Imaging: Xray Plain Films/CT/US/NM/MRI: chest Comments NAME: NI ESPINOZA [facility] REC#: [id number] PT STATUS: REG ER : 1950 PHYSICIAN: LUMA WADE MD ADMIT DATE: 01/12/23/ER Signed Date of Exam:01/12/23 CHEST 1 VIEW, AP/PA ONLY INDICATION: 72-year-old male with chest pain COMPARISONS: 01/01/2023 FINDINGS: Single view of the chest shows borderline cardiomegaly with mild central venous congestion. The right pulmonary artery is prominent. Few scattered bilateral lung infiltrates are seen. There is more confluent consolidation in the left lower lobe with underlying small left effusion. There is a dual-chamber left-sided ICD. Soft tissues and bony thorax are normal. IMPRESSION: 1. Cardiomegaly with mild central venous congestion. 2. Scattered alveolar infiltrates with more confluent consolidations in the left lower lobe with underlying small left effusion. Dictated by: Dictated on workstation # [id number] Dict: 01/12/232037 Trans: 01/12/232103 [facility] [id number] Interpreted by: JUDITH MOY MD Electronically signed by: JUDITH MOY MD 01/12/232103 Departure Communication (Admissions) Time/Spoke to Admitting Phy: 22:55 Dr. Bhandari Impression Primary Impression: COPD exacerbation Additional Impressions: Pneumonia Qualified Codes: J18.9 - Pneumonia, unspecified organism Hypertensive urgency Disposition: ADMITTED INPATIENT Condition: Improved Admissions Decision to Admit Reason: Admit from ER (General) Decision to Admit/Date: Jan 12, 2023 Time/Decision to Admit Time: 22:55 Departure-Patient Inst. Referrals: [facility] (PCP/Family) Primary Care Physician LUMA WADE MD Jan 12, 2023 20:36
[2023-01-12 20:46] LABS: INR 0.9 (0.8-1.4); PROTHROMBIN TIME PATIENT 12.4 SEC (12.2-14.7)
[2023-01-12 20:52] LABS: ALBUMIN 2.7 GM/DL (3.2-4.5); BILIRUBIN,TOTAL 0.3 MG/DL (0.1-1.0); CALCIUM 9.2 MG/DL (8.5-10.1); CREATININE SERUM 0.81 MG/DL (0.60-1.30); MAGNESIUM 1.5 MG/DL (1.6-2.4); POTASSIUM 5.4 MMOL/L (3.6-5.0); TOTAL PROTEIN 5.8 GM/DL (6.4-8.2)
--- NOTE | 2023-01-12 21:06 | Diagnostic Imaging Report ---
INDICATION: 72-year-old male with chest pain COMPARISONS: 01/01/2023 FINDINGS: Single view of the chest shows borderline cardiomegaly with mild central venous congestion. The right pulmonary artery is prominent. Few scattered bilateral lung infiltrates are seen. There is more confluent consolidation in the left lower lobe with underlying small left effusion. There is a dual-chamber left-sided ICD. Soft tissues and bony thorax are normal. IMPRESSION: 1. Cardiomegaly with mild central venous congestion. 2. Scattered alveolar infiltrates with more confluent consolidations in the left lower lobe with underlying small left effusion. Dictated by: Dictated on workstation # [id number]
[2023-01-12] MEDS ORDERED: RT-ALBUTEROL/IPRATROPIUM 3 ML (DUONEB) VIAL INH ONE (21:30)
[2023-01-12] MEDS ORDERED: CEFEPIME INJECTION 2,000 MG in NS (IVPB) 50 ML IV ONE (22:30)
[2023-01-12] MEDS ORDERED: MAGNESIUM OXIDE (MAG-OX)400 MG TAB PO ONE (23:00)
[2023-01-13] VITALS (9 sets, daily range): BP systolic 133–199; BP diastolic 67–162
[2023-01-13] MEDS ORDERED: morphine INJ 10 MG/ML 1ML (SYR OR VIAL) IVP STA (00:28)
[2023-01-13] MEDS ORDERED: ONDANSETRON 4 MG/2 ML (SDV) Z0FRAN IV PRN (02:00)
[2023-01-13] MEDS ORDERED: CATHETER FLUSH 10 ML SYR IVP PRN (02:00)
[2023-01-13] MEDS ORDERED: RT-ALBUTEROL/IPRATROPIUM 3 ML (DUONEB) VIAL INH PRN (02:15)
[2023-01-13] MEDS: morphine INJ 4 MG/ML 1 ML (VIAL/SYRINGE) IV PRN ×4 (02:32→21:34)
[2023-01-13] MEDS: VANCOMYCIN 1 GM/NS 250 ML IVPB IV SCH ×4 (02:34→04:10)
[2023-01-13] MEDS: CEFEPIME 1,000 MG/NS 50 ML IVPB IV SCH ×8 (04:10→21:34)
[2023-01-13] MEDS: CATHETER FLUSH 10 ML SYR IVP SCH ×3 (05:03→22:18)
[2023-01-13] MEDS: predniSONE 20 MG TAB PO SCH (05:04)
[2023-01-13] MEDS: NITROGLYCERIN 2% OINT 1 GM UNIT DOSE PACKET TOP SCH ×3 (05:04→22:19)
--- NOTE | 2023-01-13 05:08 | History & Physical-Hospitalist ---
History of Present Illness HPI/Chief Complaint CC: PNA HPI: This is a 72yoWM clinic patient of [facility] with multiple recurrent hospital stays every week who presents from [place] with increased work of breathing. IV abx initiated. Dr Trevino saw the patient and recommended Pulmo consult so I updated pulmonology. PICC line being placed due to poor vascular access. Patient appears to be more declined each time he comes to hospital. Pain meds initiated. Source: patient Exam Limitations: no limitations Date Seen 01/13/23 Time Seen by a Provider: 09:30 Attending Physician [place] PCP Admitting Physician: Kirsten Sanz DO Attending Physician: Kirsten Sanz DO Referring Physician Date of Admission Jan 13, 2023 at 00:51 Home Medications & Allergies Home Medications Reviewed patient Home Medication Reconciliation performed by pharmacy medication reconciliations zone maintenance technician and/or nursing. Patients Allergies have been reviewed. Allergies Allergies Coded Allergies codeine (Verified Allergy, Mild, HIVES...TAKES OXYCODONE & MS CONTIN AT HOME, 03/11/19) streptokinase (Verified Allergy, Unknown, 03/11/19) Past Ruwyeis-Ywufpz-Cwjknf Hx Patient Social History Marrital Status: single Employed/Student: unemployed Tobacco Use?: Yes Tobacco type used: Cigarettes Smoking Status: Former Smoker Smokeless Tobacco Frequency: Never a User Use of E-Cig and/or Vaping dev: No Substance use?: Yes Substance type: Opiates/Opioids Substance frequency: Daily Alcohol Use?: Yes Alcohol type: Beer Alcohol Frequency: Once in a while Pt feels they are or have been: No Immunizations Up To Date Date of Influenza Vaccine: Jul 26, 2022 First/Initial COVID19 Vaccinat: x2 Second COVID19 Vaccination Kuldip: x2 Tetanus Booster (TDap): More Than 5 Years Hepatitis A: No Hepatitis B: No PED Vaccines UTD: No Date of Pneumonia Vaccine: Jul 03, 2018 Seasonal Allergies Seasonal Allergies: No Current Status Advance Directives: Unable to obtain Communicates: Verbally Primary Language: Barbadian Preferred Spoken Language: Barbadian Is interpretation needed?: No Implanted or Applied Medical D: Pacemaker Past Medical History Surgeries: Abdominal, Appendectomy, Cardiac, Defibrillator, Joint Replacement, Orthopedic, Pacemaker Asthma, COPD Currently Using CPAP: No Currently Using BIPAP: No Atrial Fibrillation, Chronic Edema/Swelling, Coronary Artery Disease, Congenital Heart Disease, Heart Attack, Hypertension, Irregular Heartbeat Neuropathy Sexually Transmitted Disease: No HIV/AIDS: No Neurogenic Bladder Abdominal Hernia, Chronic Constipation Arthritis, Chronic Back Pain, Fractures Loss of Vision: Denies Hearing Impairment: Hard of Hearing Recent Skin Changes Blood Disorders: No Adverse Reaction/Blood Tranf: Yes (HIGH FEVER AND CHILLS) PMHx: avascular necrosis of multiple joints Asthma Chronic nonhealing hip wounds SurgHx: 11 bilateral hip surgeries, removal of hardware is nonambulatory 3 back surgeries Neck surgery Bilateral carpal tunnel release Bilateral cubital tunnel release Family Medical History COPD Diabetes mellitus No Pertinent Family Hx Adopted, unknown FH SOCIAL HISTORY: -SMOKED IN THE PAST, QUIT -ETOH--LONG HISTORY OF ABUSE -DRUGS--EXTENSIVE ABUSE OF RX DRUGS, ESPECIALLY OPIATES PAST SURGICAL HISTORY: -MULTIPLE FAILED BILATERAL HIP REPLACEMENTS, WITH EVENTUAL REMOVAL OF BOTH FEMORAL HEADS -CARDIAC CATH 08/26/[address] LOPEZ: CORONARY ANGIOGRAPHY: Coronary calcification is seen. Left main coronary artery is free of significant disease. Left anterior descending artery does not exhibit significant disease. Left circumflex artery has 30% to 40% mid vessel stenosis at the site of the origin of a large obtuse marginal branch. IFR across this lesion is 0.96. This indicates that the lesion is hemodynamically nonsignificant. Right coronary artery is codominant with the left circumflex artery. It does not exhibit significant disease. LEFT VENTRICULAR ANGIOGRAPHY: Left ventricular angiography was carried out in the right anterior oblique projection. Global left ventricular systolic function is normal. No regional wall motion abnormalities seen. Left ventricular ejection fraction is approximately 60%. CONCLUSIONS: 1. Mild to moderate coronary artery disease, nonobstructive. 2. Normal global left ventricular systolic function with ejection fraction approximately 60%. 3. Normal left ventricular end-diastolic pressure. DISCUSSION AND RECOMMENDATIONS: Based on results of the study, it appears appropriate to continue a conservative approach. Review of Systems Constitutional: see HPI Respiratory: cough, dyspnea on exertion, phlegm Physical Exam Physical Exam Vital Signs Vital Signs - First Documented 01/12/23 01/13/23 20:04 01:42 Temp 36.7 Pulse 87 Resp 18 B/P (MAP) 199/162 (174) Pulse Ox 96 O2 Delivery Nasal Cannula O2 Flow Rate 4.00 FiO2 32 Capillary Refill : Less Than 3 Seconds Height, Weight, BMI Height: 5'8.00" Weight: 170lbs. 8.0oz. 77.434313eg; 40.14 BMI Method:Stated General Appearance: No Apparent Distress, Chronically ill Eyes: Right Eye Normal Inspection, Right Eye PERRL HEENT: PERRL/EOMI, Normal ENT Inspection, Pharynx Normal, Moist Mucous Membranes Neck: Full Range of Motion, Normal Inspection, Non Tender Respiratory: Chest Non Tender, No Accessory Muscle Use, No Respiratory Distress, Crackles, Decreased Breath Sounds Cardiovascular: Regular Rate, Rhythm, No Edema, No Gallop, No JVD, No Murmur, Normal Peripheral Pulses Gastrointestinal: Normal Bowel Sounds, No Organomegaly, No Pulsatile Mass, Non Tender, Soft Back: Normal Inspection, No CVA Tenderness, No Vertebral Tenderness Extremity: Normal Capillary Refill, Normal Inspection, Normal Range of Motion, Non Tender, No Calf Tenderness, No Pedal Edema Neurologic/Psychiatric: Alert, Oriented x3, No Motor/Sensory Deficits, Normal Mood/Affect Skin: Normal Color, Warm/Dry Lymphatic: No Adenopathy Results Results/Procedures Labs Laboratory Tests 01/12/23 20:23 01/13/23 05:34 Patient resulted labs reviewed. Assessment/Plan Admission Diagnosis Assess & Plan/Chief Complaint AECOPD PNA Diarrhea - Unknown Etiology Hyperglycemia Coronary Artery Disease Dual Chamber Pacemaker Placement Debility/Self-care Deficit HTN Anemia - Unknown Etiology HLD GERD Plan: IV abx Home meds Admission Status: Inpatient Order (span 2 midnights) Reason for Inpatient Admission: pna Clinical Quality Measures AMI/AHF: ASA po Prior to arrival: KIRSTEN Cordero DO Jan 13, 2023 05:08
[2023-01-13 06:10] LABS: BASOPHILS % (AUTO) 0 % (0-10); EOSINOPHILS # (AUTO) 0.1 10^3/uL (0.0-0.3); EOSINOPHILS % (AUTO) 1 % (0-10); HEMATOCRIT 34 % (40-54); LYMPHOCYTES # (AUTO) 1.9 10^3/uL (1.0-4.0); LYMPHOCYTES % (AUTO) 13 % (12-44); MEAN CORPUSCULAR HEMOGLOBIN 31 pg (25-34); MEAN CORPUSCULAR HGB CONC 33 g/dL (32-36); MEAN CORPUSCULAR VOLUME 96 fL (80-99); MEAN PLATELET VOLUME 11.5 fL (9.0-12.2); MONOCYTES # (AUTO) 0.8 10^3/uL (0.0-1.0); MONOCYTES % (AUTO) 5 % (0-12); NEUTROPHILS # (AUTO) 12.2 10^3/uL (1.8-7.8); NEUTROPHILS % (AUTO) 79 % (42-75); PLATELET COUNT 305 10^3/uL (130-400); WHITE BLOOD COUNT 15.5 10^3/uL (4.3-11.0)
[2023-01-13] MEDS: inSUlin ASPART (NovoLOG) 1 UNIT/0.01 ML (CHARGE PER UNIT) SC SCH ×4 (06:10→20:16)
[2023-01-13 06:28] LABS: CALCIUM 8.8 MG/DL (8.5-10.1); CREATININE SERUM 0.79 MG/DL (0.60-1.30); POTASSIUM 4.6 MMOL/L (3.6-5.0)
[2023-01-13 06:30] LABS: CHOLESTEROL 189 MG/DL (< 200); HDL CHOLESTEROL 55 MG/DL (40-60); TRIGLYCERIDES 84 MG/DL (<150); VLDL CHOLESTEROL 17 MG/DL (5-40)
[2023-01-13 06:44] LABS: LYMPHOCYTES % (MANUAL) 17 %; MONOCYTES % (MANUAL) 6 %; NEUTROPHILS % (MANUAL) 76 %; RBC MORPH NORMAL; REACTIVE LYMPHOCYTES 1 %
[2023-01-13] MEDS: RT-ALBUTEROL/IPRATROPIUM 3 ML (DUONEB) VIAL INH SCH ×5 (07:10→20:57)
--- NOTE | 2023-01-13 08:21 | Diagnostic Imaging Report ---
INDICATION: Pneumonia Frontal chest obtained at 5:53 a.m. and compared to 01/12/2023. There is cardiomegaly and mild central vascular congestion. There is no change in pacemaker device. There is poor inspiration. There is mild left basilar infiltrate versus atelectasis with trace left pleural effusion. IMPRESSION: Poor inspiration limited study. There is cardiomegaly and mild central vascular congestion with some left basilar infiltrate versus atelectasis and trace left pleural effusion. Dictated by: Dictated on workstation # [id number]
[2023-01-13] MEDS: GABAPENTIN 300 MG (NEURONTIN) CAP PO SCH ×3 (08:24→19:50)
[2023-01-13] MEDS: ASPIRIN 81 MG CHEW (CHILDREN'S ASA) PO SCH (08:24)
[2023-01-13] MEDS: ENOXAPARIN 40 MG/0.4 ML (LOVENOX) SYR SC SCH ×2 (08:25→19:50)
--- NOTE | 2023-01-13 09:27 | Consultation-Cardiology ---
HPI-Cardiology Cardiology Consultation Date of Consultation 01/13/23 Date of Admission Time Seen by Provider: 09:30 Indication: Chest pain HPI Patient is a 72 y/o male with history of moderate nonobstructive CAD, HTN, multiple recent hospitalizations. Presented to the ER with complaints of chest pain and increased dyspnea, productive cough. Denies any active chest pain. Denies dizziness or lightheadedness. 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 Smoking Status: Former Smoker Type Used: Cigarettes 2nd Hand Smoke Exposure: Yes Recent Hopitalizations: No Have you traveled recently?: No Alcohol Use?: Yes Substance type: Opiates/Opioids Immunizations Up To Date Tetanus Booster (TDap): Less than 5yrs Date of Pneumonia Vaccine: Jul 03, 2018 Date of Influenza Vaccine: Jul 26, 2022 Past Medical History CAD HLP Extobaccoism Family Medical History Significant Family History: No Pertinent Family Hx Family History: COPD Diabetes mellitus Review of Systems-General Review of Systems Constitutional: see HPI; No chills, No diaphoresis, No fever; weakness EENTM: see HPI, no symptoms reported Respiratory: see HPI, cough, dyspnea on exertion, short of breath Cardiovascular: see HPI, chest pain; No Hx of Intervention, No palpitations Gastrointestinal: no symptoms reported, see HPI Genitourinary: No dysuria, No frequency Musculoskeletal: No back pain, No joint pain Skin: No lesions Reviewed Test Results Reviewed Test Results Lab Laboratory Tests 01/12/23 20:23: White Blood Count 18.7H, Red Blood Count 3.89L, Hemoglobin 12.1L, Hematocrit 37L , Mean Corpuscular Volume 94, Mean Corpuscular Hemoglobin 31, Mean Corpuscular Hemoglobin Concent 33, Red Cell Distribution Width 14.9H, Platelet Count 318, Mean Platelet Volume 11.1, Immature Granulocyte % (Auto) 1, Neutrophils (%) (Auto) 88H, Lymphocytes (%) (Auto) 6L, Monocytes (%) (Auto) 4, Eosinophils (%) (Auto) 0, Basophils (%) (Auto) 0, Neutrophils # (Auto) 16.4H, Lymphocytes # (Auto) 1.1, Monocytes # (Auto) 0.8, Eosinophils # (Auto) 0.0, Basophils # (Auto) 0.0, Immature Granulocyte # (Auto) 0.3H, Prothrombin Time 12.4, INR Comment 0.9, Activated Partial Thromboplast Time 28, Sodium Level 139, Potassium Level 5.4H, Chloride Level 101, Carbon Dioxide Level 27, Anion Gap 11, Blood Urea Nitrogen 25H, Creatinine 0.81, Estimat Glomerular Filtration Rate 95, BUN/Creatinine Ratio 31, Glucose Level 131H, Calcium Level 9.2, Corrected Calcium 10.2H, Magnesium Level 1.5L, Total Bilirubin 0.3, Aspartate Amino Transf (AST/SGOT) 20, Alanine Aminotransferase (ALT/SGPT) 23, Alkaline Phosphatase 62, Myoglobin 39.4, Troponin I 0.140H, C-Reactive Protein High Sensitivity 10.06H, B-Type Natriuretic Peptide 399.4H, Total Protein 5.8L, Albumin 2.7L, Influenza Type A (RT-PCR) Not Detected, Influenza Type B (RT-PCR) Not Detected, SARS-CoV-2 RNA (RT-PCR) Not Detected 01/12/23 22:12: Troponin I 0.140H 01/13/23 05:34: White Blood Count 15.5H, Red Blood Count 3.53L, Hemoglobin 11.0L, Hematocrit 34L , Mean Corpuscular Volume 96, Mean Corpuscular Hemoglobin 31, Mean Corpuscular Hemoglobin Concent 33, Red Cell Distribution Width 14.9H, Platelet Count 305, Mean Platelet Volume 11.5, Immature Granulocyte % (Auto) 2, Neutrophils (%) (Auto) 79H, Lymphocytes (%) (Auto) 13, Monocytes (%) (Auto) 5, Eosinophils (%) (Auto) 1, Basophils (%) (Auto) 0, Neutrophils # (Auto) 12.2H, Lymphocytes # (Auto) 1.9, Monocytes # (Auto) 0.8, Eosinophils # (Auto) 0.1, Basophils # (Auto) 0.0, Immature Granulocyte # (Auto) 0.3H, Sodium Level 141, Potassium Level 4.6, Chloride Level 102, Carbon Dioxide Level 28, Anion Gap 11, Blood Urea Nitrogen 24H, Creatinine 0.79, Estimat Glomerular Filtration Rate 96, BUN/Creatinine Ratio 30, Glucose Level 122H, Calcium Level 8.8, Neutrophils % (Manual) 76, Lymphocytes % (Manual) 17, Monocytes % (Manual) 6, Reactive Lymphocytes 1, Blood Morphology Comment NORMAL, Triglycerides Level 84, Cholesterol Level 189, LDL Cholesterol Direct 119, VLDL Cholesterol 17, HDL Cholesterol 55 01/13/23 05:38: Glucometer 125H Physical Exam Physical Exam Vital Signs Vital Signs - First Documented 01/12/23 01/13/23 20:04 01:42 Temp 36.7 Pulse 87 Resp 18 B/P (MAP) 199/162 (174) Pulse Ox 96 O2 Delivery Nasal Cannula O2 Flow Rate 4.00 FiO2 32 Capillary Refill : Less Than 3 Seconds Height, Weight, BMI Height: 5'8.00" Weight: 170lbs. 8.0oz. 77.045871fc; 40.14 BMI Method:Stated General Appearance: No Apparent Distress, WD/WN HEENT: PERRL/EOMI, Normal ENT Inspection Neck: Non Tender, Supple Respiratory: Chest Non Tender, Lungs Clear Cardiovascular: Regular Rate, Rhythm, No Edema, No Gallop Gastrointestinal: Non Tender, Soft Back: No CVA Tenderness Neurologic/Psychiatric: Alert, Oriented x3 A/P-Cardiology Admission Diagnosis Pneumonia Chest pain CAD HLP Assessment/Plan Pneumonia, management per medical services Shortness of breath, acute exacerbation of COPD, active wheezing and dyspnea Managed by primary care physician Consider pulmonary consultation Chest pain, nonspecific etiology, EKG showing paced rhythm with no acute ST changes. Has mildly elevated troponin, which has been chronically mildly elevated since Jul 2022. Type II myocardial infarction secondary to small vessel disease. Chest pain likely d/t known small vessel disease. Conservative management is recommended, no intervention is warranted Continue to monitor Generalized weakness, Managed by medical team Labile blood pressure, history of noncompliance, educated about the importance of compliance with medications at home Continue to monitor blood pressure. History of alcohol intoxication, history of alcoholism and polysubstance abuse. Managed by medical team Coronary artery disease, cardiac catheterization carried out in 2012 and 2014 with diffuse atherosclerotic plaques. Nonobstructive disease. Cardiac catheterization was carried out by Dr. Houser on August 26, 2022 with nonobstructive coronary artery disease. iFR was done through the circumflex artery. Review of his cardiac catheterization film showed calcification in the left main and the proximal LAD with mild to moderate disease, 50% stenosis in the mid circumflex artery with IFR 0.97. Small vessel disease distally, dominant circumflex artery. 2D echo done on Dec 22, 2022 with mild concentric hypertrophy. Ejection fraction 60-65%, grade 2 diastolic dysfunction, biatrial enlargement Hyperlipidemia, well controlled on current medication, continue to monitor History of dual-chamber pacemaker due to sinus node dysfunction, he has history of sinus pause for 3.2 second. Continue to monitor History of avascular necrosis of the hip, underwent multiple hip surgeries in the past and hip replacements. History of gastroesophageal reflux disease, COPD. Polysubstance use for pain control Previous history of tobaccoism Thank you for allowing us to participate in the management of Mr. Jalloh. This is Maggie Pereira PA-C, as a scribe for Dr. Trevino. Patient was seen and evaluated with Maggie, I examined and interviewed the patient, discussed the management plan and the note and agree with the current scribed note I made few modification using Italic font Clinical Quality Measures AMI/AHF: ASA po Prior to arrival: No MAGGIE GOLD Jan 13, 2023 09:27 SKYLA TREVINO MD Jan 13, 2023 10:04
[2023-01-13] MEDS ORDERED: OXYC5TAB PO (14:12)
[2023-01-13] MEDS ORDERED: ACET325T38 PO (14:12)
[2023-01-13] MEDS ORDERED: MTP25TSR PO (14:12)
--- NOTE | 2023-01-13 15:25 | Pulmonary Progress Note ---
Subjective Date Seen by a Provider: Jan 13, 2023 Time Seen by a Provider: 15:22 Subjective/Events-last exam (Tele-pulmonary Physician , consultation as per request of PCP Service provided via interactive audio and video telecommunications [employer] system to a patient admitted to [facility]. 12/21- acute resp failure requiring IV abx and IV steroids RLML PNA ( Meropenem and Vanc , Solumedrol ) 01/01- 01/09/23 - d/c on prednisone taper to REHAB , 4 L o2 readmitted with R chest pain and dyspnea as per patient report - was 1 week home after rehab , using nebs few timnes a day and has minimal mildly productive cough has h/o wheezing , even when feels 'Ok" do not recol doing PFT sleeps on recliner on 4L o2 , poor quality sleep reported no PATRICK pain control "poor" - at baseline , no change A/P Right sided chest pain , seems to be pleuritic ( less likely musculs ) - intermittent -given low ddimer, PE is less likely . possible effusions. viral syndrome - would cont IS , nebs , abx and follow - if persist , one can consider to do CT to r/o peripneumonic effusion / empyema from previous infection Presumed HAP - symptoms not very specific anfdd cxr not very convinsing - will obtain sputum cx ( at risk for MDR and fungal , no oral candidiasis on exam bt RN ) - short course abx - 3-[address] scan chest - depending on symptoms progression - consider Azithromycin 250 3 times a week for few month , till get into pulmonoilogist care AECOPD - would cont steroids PO , slow taper COPD baseline 07/31/22 CT LILLIE CHEST- fibrotic changes BIBIANA suggest for his refractory symptoms to initiate - scheduled nebs tid-qid with DUO neb - add ICS inhaler bid - might consider treatment with daliresp 250 mcg once daily for 4 weeks COPD comorbidities: he does not have bronchiectasis, no pulm HTN , denies PND and GERD , He has mild chronic CO2 retention , might have IRAJ - might benefit for CPAP if has IRAJ - will neef PSG as out pt will need PFT as outpt at baseline moderate nonobstructive CAD s/p dual-chamber pacemaker due to sinus node dysfunction - -ECHO Dec 22, 2022 EF n 60-65%, grade 2 diastolic dysfunction, biatrial enlargement H/O avascular necrosis of the hip - s/p multiple hip surgeries in the past and hip replacements - chronic pain syndrome Polysubstance use for pain control ETOH use chronic anemia mild GERD Discussed with patient the medical regiment after discharge, goals, side effects and symptoms. All questions were answered. Plans in collaboration with bedside consultants and IM MDs. Discussed with RN to reach out if any questions or concerns Sepsis Event Evaluation Height, Weight, BMI Height: 5'8.00" Weight: 170lbs. 8.0oz. 77.941405np; 40.14 BMI Method:Stated Exam Exam Patient acknowledged, consented, and participated in this virtual visit which was conducted using real time audio/video Vital Signs Date Time Temp Pulse Resp B/P (MAP) Pulse Ox O2 Delivery O2 Flow Rate FiO2 01/13/23 11:15 37.0 88 18 138/67 (90) 94 Nasal Cannula 3.00 01/13/23 08:00 Nasal Cannula 3.50 01/13/23 07:25 36.3 67 18 135/72 (93) 98 Nasal Cannula 4.00 01/13/23 07:10 97 Nasal Cannula 3.50 01/13/23 07:03 66 01/13/23 04:57 36.3 77 20 133/86 (102) 98 Nasal Cannula 3.50 01/13/23 02:27 77 01/13/23 01:42 36.7 87 32 01/13/23 01:16 36.5 80 20 174/81 (112) 96 Nasal Cannula 3.50 01/13/23 01:15 Nasal Cannula 4.00 01/12/23 20:04 36.7 87 18 199/162 (174) 96 Nasal Cannula 4.00 01/12/23 20:04 96 Nasal Cannula 4.00 I & O 01/13/23 07:00 Intake Total 850 ml Output Total 1200 ml Balance -350 ml Height & Weight Height: 5'8.00" Weight: 170lbs. 8.0oz. 77.206026aq; 40.14 BMI Method:Stated General Appearance: No Apparent Distress, WD/WN HEENT: PERRL/EOMI, Normal ENT Inspection Neck: Non Tender, Supple Respiratory: Chest Non Tender, Lungs Clear Cardiovascular: Regular Rate, Rhythm, No Edema, No Gallop Capillary Refill: Less Than 3 Seconds Extremity: Other (Extensive bruising of the upper extremities from numerous IV attempts. Mild to moderate extremity edema) Neurologic/Psychiatric: Alert, Oriented x3 Skin: Warm/Dry, Ecchymosis Results Lab Laboratory Tests 01/12/23 20:23 01/13/23 05:34 Assessment/Plan Assessment/Plan 1 CHRISTI MURRAY MD Jan 13, 2023 15:25
[2023-01-13] MEDS: VANCOMYCIN 1250 MG/NS 250 ML PREMIX IV SCH (15:52)
[2023-01-13] MEDS ORDERED: LOPERAMIDE 2 MG (IMODIUM) TABLET PO PRN (20:45)
[2023-01-13] MEDS ORDERED: ACETAMINOPHEN 325 MG TABLET PO PRN (20:45)
[2023-01-13] MEDS: RT--FLUTICASONE/SALMETEROL 232-14 (AIRDUO RespiCLICK) IH SCH (20:57)
[2023-01-13] MEDS ORDERED: GABAPENTIN 300 MG (NEURONTIN) CAP PO SCH (21:00)
[2023-01-13] MEDS ORDERED: INSULIN DETEMIR 15 UNIT SQ SCH (21:00)
[2023-01-13] MEDS: RANOLAZINE ER 500 MG TAB (RANEXA) PO SCH (22:18)
[2023-01-13] MEDS: BETHANECHOL 10 MG (URECHOLINE) TAB PO SCH (22:19)
[2023-01-14] MEDS: morphine INJ 4 MG/ML 1 ML (VIAL/SYRINGE) IV PRN ×5 (01:48→22:00)
[2023-01-14] MEDS: RT-ALBUTEROL/IPRATROPIUM 3 ML (DUONEB) VIAL INH SCH ×6 (02:52→22:30)
[2023-01-14] MEDS: CEFEPIME 1,000 MG/NS 50 ML IVPB IV SCH ×8 (03:01→21:46)
[2023-01-14] MEDS: VANCOMYCIN 1250 MG/NS 250 ML PREMIX IV SCH ×2 (03:24→17:27)
[2023-01-14] MEDS: CATHETER FLUSH 10 ML SYR IVP SCH ×3 (03:24→21:46)
[2023-01-14 04:59] VITALS: BP 146/66
[2023-01-14] MEDS: predniSONE 20 MG TAB PO SCH (05:39)
[2023-01-14] MEDS: inSUlin ASPART (NovoLOG) 1 UNIT/0.01 ML (CHARGE PER UNIT) SC SCH ×4 (05:39→20:06)
[2023-01-14] MEDS: NITROGLYCERIN 2% OINT 1 GM UNIT DOSE PACKET TOP SCH ×3 (05:39→21:46)
[2023-01-14] MEDS: PANTOPRAZOLE 40 MG (PROTONIX) TAB PO SCH (05:39)
[2023-01-14] MEDS: RT--FLUTICASONE/SALMETEROL 232-14 (AIRDUO RespiCLICK) IH SCH ×2 (06:53→22:30)
--- NOTE | 2023-01-14 07:19 | Progress Note ---
Subjective Date Seen by a Provider: Jan 14, 2023 Time Seen by a Provider: 10:00 Objective Exam Last Set of Vital Signs Vital Signs Date Time Temp Pulse Resp B/P (MAP) Pulse Ox O2 Delivery O2 Flow Rate FiO2 01/14/23 06:55 97 Nasal Cannula 3.00 01/14/23 04:59 36.0 72 20 146/66 (92) 01/13/23 01:42 32 Capillary Refill : Less Than 3 Seconds I&O Intake and Output 01/14/23 00:00 Intake Total 2140 ml Output Total 2525 ml Balance -385 ml Intake Oral 1540 ml IV Total 600 ml Output Urine Total 2525 ml Daily Weight Change No Results Lab Laboratory Tests 01/13/23 11:12: Glucometer 173H 01/13/23 15:58: Glucometer 177H 01/13/23 20:07: Glucometer 143H 01/14/23 05:38: Glucometer 90 Clinical Quality Measures AMI/AHF: ASA po Prior to arrival: No ZOHREH BHANDARI DO Jan 14, 2023 07:19
[2023-01-14 08:00] VITALS: BP 137/65
[2023-01-14] MEDS: RANOLAZINE ER 500 MG TAB (RANEXA) PO SCH ×2 (08:21→20:06)
[2023-01-14] MEDS: ENOXAPARIN 40 MG/0.4 ML (LOVENOX) SYR SC SCH ×2 (08:21→20:06)
[2023-01-14] MEDS: BETHANECHOL 10 MG (URECHOLINE) TAB PO SCH ×2 (08:21→20:06)
[2023-01-14] MEDS: ASPIRIN 81 MG CHEW (CHILDREN'S ASA) PO SCH (08:21)
[2023-01-14] MEDS: GABAPENTIN 300 MG (NEURONTIN) CAP PO SCH ×3 (08:21→20:06)
[2023-01-14] MEDS: ASPIRIN E.C. 81 MG (ECOTRIN) TAB PO SCH (08:22)
--- NOTE | 2023-01-14 08:57 | Cardiology Progress Note ---
Subjective Date Seen by Provider: Jan 14, 2023 Time Seen by Provider: 08:25 Subjective/Events-last exam Patient is sitting up in bed, eating breakfast. Denies any chest pain, continues to c/o dyspnea. Objective-Cardiology Exam Last Set of Vital Signs Vital Signs 01/13/23 01/14/23 01/14/23 01/14/23 01:42 11:57 12:00 13:11 Temp 36.6 Pulse 76 Resp 18 B/P (MAP) 139/76 (97) Pulse Ox 95 O2 Delivery Nasal Cannula O2 Flow Rate 3.00 FiO2 32 I&O Intake and Output 01/14/23 00:00 Intake Total 2140 ml Output Total 2525 ml Balance -385 ml Intake Oral 1540 ml IV Total 600 ml Output Urine Total 2525 ml Daily Weight Change No General: Alert, Oriented X3, Cooperative HEENT: Atraumatic, PERRLA Lungs: Other (bilat wheezing and rhonchi) Heart: Regular Rate, Normal S1, Normal S2 Abdomen: Normal Bowel Sounds, Soft Extremities: No Edema Neuro: Normal Speech Psych/Mental Status: Mental Status NL, Mood NL Results Lab Laboratory Tests 01/14/23 11:30 A/P-Cardiology Admission Diagnosis Pneumonia Chest pain CAD HLP Assessment/Plan Acute respiratory failure, patient deteriorated during the day and transferred to ICU Receiving bronchodilators and antibiotic Mildly hypoxemic but overall improving Managed by medical team Pneumonia, management per medical services Pulmonary consultation appreciated, recommendation was made using long-term antibiotics as an outpatient Aggressive bronchodilators and slow tapering steroid dose Chest pain, nonspecific etiology, EKG showing paced rhythm with no acute ST changes. Has mildly elevated troponin, which has been chronically mildly elevated since Jul 2022. Type II myocardial infarction secondary to small vessel disease. Chest pain likely d/t known small vessel disease. Conservative management is recommended, no intervention is warranted Continue to monitor Labile blood pressure, history of noncompliance, educated about the importance of compliance with medications at home Continue to monitor blood pressure. History of alcohol intoxication, history of alcoholism and polysubstance abuse. Managed by medical team Coronary artery disease, cardiac catheterization carried out in 2012 and 2014 with diffuse atherosclerotic plaques. Nonobstructive disease. Cardiac catheterization was carried out by Dr. Houser on August 26, 2022 with nonobstructive coronary artery disease. iFR was done through the circumflex artery. Review of his cardiac catheterization film showed calcification in the left main and the proximal LAD with mild to moderate disease, 50% stenosis in the mid circumflex artery with IFR 0.97. Small vessel disease distally, dominant circumflex artery. 2D echo done on Dec 22, 2022 with mild concentric hypertrophy. Ejection fraction 60-65%, grade 2 diastolic dysfunction, biatrial enlargement Hyperlipidemia, well controlled on current medication, continue to monitor History of dual-chamber pacemaker due to sinus node dysfunction, he has history of sinus pause for 3.2 second. Continue to monitor History of avascular necrosis of the hip, underwent multiple hip surgeries in the past and hip replacements. History of gastroesophageal reflux disease, COPD. Polysubstance use for pain control Previous history of tobaccoism Supervisory-Addendum Brief Supervisory Addendum Participated in pt care: history, MDM, physical Personally performed: exam, history, MDM Care discussed with: LO Results interpretation: Verified all documentation Notes: Patient was seen and evaluated with Brooks, examination performed, management plan was discussed, agree with the current scribed note, I made few changes to the note using Italic font Patient was seen at bedside, laying down comfortably Transferred to ICU due to worsening shortness of breath and wheezing ABG showed mild hypoxemia PO2 93 Continue with diuretics, monitor closely BROOKS GOLD Jan 14, 2023 08:57 SKYLA SQUIRES MD Jan 14, 2023 14:52
[2023-01-14] MEDS ORDERED: NS (IVPB) 50 ML ONE (10:32)
[2023-01-14] MEDS ORDERED: NS IV 500 ML 500 ML IV PRN (11:00)
[2023-01-14] MEDS ORDERED: DexMEDEtomidine 250 ML DRIP 250 ML IV SCH (11:00)
[2023-01-14] MEDS ORDERED: LORazepam 0.5 MG (ATIVAN) TABLET PO PRN (11:00)
[2023-01-14] MEDS ORDERED: LORazepam INJ 2 MG/ML (ATIVAN) VIAL IVP PRN (11:00)
--- NOTE | 2023-01-14 11:01 | Progress Note - Hospitalist ---
Subjective HPI/CC On Admission Date Seen by Provider: Jan 14, 2023 Time Seen by Provider: 10:00 CC: PNA HPI: This is a 72yoWM clinic patient of [facility] with multiple recurrent hospital stays every week who presents from [place] with increased work of breathing. IV abx initiated. Dr Trevino saw the patient and recommended Pulmo consult so I updated pulmonology. PICC line being placed due to poor vascular access. Patient appears to be more declined each time he comes to hospital. Pain meds initiated. Subjective/Events-last exam Patient tachypneic Needs ICU transfer Needs groshong port placement after nilo and Dr Umanzor was consulted CXR and ABG ordered Review of Systems General: Fatigue, Malaise Pulmonary: Dyspnea Objective Exam Vital Signs Vital Signs Date Time Temp Pulse Resp B/P (MAP) Pulse Ox O2 Delivery O2 Flow Rate FiO2 01/15/23 04:00 95 OxyMask 5.00 01/15/23 04:00 36.3 01/15/23 02:00 77 17 01/13/23 01:42 32 Capillary Refill : Less Than 3 Seconds General Appearance: Anxious, Chronically ill, Moderate Distress Respiratory: No Respiratory Distress, Accessory Muscle Use, Crackles, Decreased Breath Sounds Cardiovascular: Regular Rate, Rhythm Neurologic/Psychiatric: Alert, Oriented x3, No Motor/Sensory Deficits, Normal Mood/Affect Results/Procedures Lab Laboratory Tests 01/14/23 11:30 01/15/23 03:55 Patient resulted labs reviewed. Assessment/Plan Assessment and Plan Assess & Plan/Chief Complaint Assess & Plan/Chief Complaint Acute on chronic respiratory failure requiring transfer to ICU 01/14/23 AECOPD PNA Diarrhea - Unknown Etiology Hyperglycemia Coronary Artery Disease Dual Chamber Pacemaker Placement Debility/Self-care Deficit HTN Anemia - Unknown Etiology HLD GERD Plan: IV abx Home meds Move to ICU BiPAP CXR ABG Needs groshong port Dr Umanzor will consult Clinical Quality Measures AMI/AHF: ASA po Prior to arrival: ZOHREH Cordero DO Jan 14, 2023 11:01
--- NOTE | 2023-01-14 11:11 | Diagnostic Imaging Report ---
INDICATION: Hypoxemia. EXAMINATION: Portable chest at 11:04 AM. FINDINGS: There is a dual-chamber pacemaker. There is a small left pleural effusion. There is some questionable left perihilar infiltrate. IMPRESSION: Questionable left perihilar infiltrate. Small left pleural effusion. Findings appear similar to the previous day's exam. Dictated by: Dictated on workstation # [id number]
[2023-01-14 11:15] LABS: ABG BASE EXCESS 8.5 MMOL/L (-2.5-2.5); ABG OXYGEN SATURATION 98 % (94-100); ABG PCO2 48 MMHG (35-45); ABG PH 7.45 (7.37-7.43); ABG PO2 93 MMHG (79-93); ABG TCO2 34.2 MMOL/L (21.0-31.0)
[2023-01-14 11:17] LABS: ALLENS TEST YES-POS; INSPIRED O2 3L; PATIENT TEMP 36.9; VENTILATOR NO
[2023-01-14 11:43] LABS: BASOPHILS % (AUTO) 0 % (0-10); EOSINOPHILS % (AUTO) 0 % (0-10); HEMATOCRIT 31 % (40-54); HEMOGLOBIN 10.4 g/dL (13.3-17.7); LYMPHOCYTES # (AUTO) 0.5 10^3/uL (1.0-4.0); LYMPHOCYTES % (AUTO) 4 % (12-44); MEAN CORPUSCULAR HEMOGLOBIN 31 pg (25-34); MEAN CORPUSCULAR HGB CONC 33 g/dL (32-36); MEAN CORPUSCULAR VOLUME 94 fL (80-99); MONOCYTES # (AUTO) 0.3 10^3/uL (0.0-1.0); MONOCYTES % (AUTO) 2 % (0-12); NEUTROPHILS # (AUTO) 12.9 10^3/uL (1.8-7.8); NEUTROPHILS % (AUTO) 93 % (42-75); PLATELET COUNT 336 10^3/uL (130-400); WHITE BLOOD COUNT 13.9 10^3/uL (4.3-11.0)
[2023-01-14 11:52] LABS: ALBUMIN 2.8 GM/DL (3.2-4.5); POTASSIUM 5.3 MMOL/L (3.6-5.0)
[2023-01-14 11:54] LABS: CALCIUM 9.2 MG/DL (8.5-10.1)
--- NOTE | 2023-01-14 11:54 | Tele-ICU Progress Note ---
Subjective Date Seen by a Provider: Jan 14, 2023 Subjective/Events-last exam This virtual visit was conducted using real time audio/video. Thank you for asking us to see this patient for respiratory insufficiency due to pna/AECOPD Recent events: Admitted 01/12 transferred today for increased respiratory needs PE: VSS. O2 sat 96% on 3 LPM HEENT: No obvious masses, adenopathy or JVD. Chest: wheezing on auscultation. CV: RRR S1 S2 No murmur or added sounds. Abd: Non-tender. Bowel sounds Y. : Unremarkable. Fermin Y. NUTRITION TECH/psychiatric: Grossly intact. No obvious focal findings. Extremities: 3+ edema. Capillary refill < 3 seconds. Skin: unremarkable. Results: labs pending AB. CXR: hyperinflated, LLL infilt. Available chart/ vitals / labs / images reviewed. Video assessment done using teleICU camera, rest of exam as per RN. A/P: Respiratory insufficiency: Continue present management with brad oJhns airduo, NC. Monitor for increasing oxygenation needs and/or need for intubation. Critical Care: critically ill patient. Cont. abx,lasix,ASA, neurontin, PPI, metop., SSI, ranexa, Levemir Discussed with RN Madalyn. Asked RN to reach out to eICU if any questions or concerns later. Time spent with patient/coordination of care with other health professionals (mins): 25 Sepsis Event Evaluation Height, Weight, BMI Height: 5'8.00" Weight: 170lbs. 8.0oz. 77.806599ro; 40.14 BMI Method:Stated Exam Exam Patient acknowledged, consented, and participated in this virtual visit which was conducted using real time audio/video Vital Signs Date Time Temp Pulse Resp B/P (MAP) Pulse Ox O2 Delivery O2 Flow Rate FiO2 01/14/23 11:09 96 Nasal Cannula 3.00 01/14/23 08:25 Nasal Cannula 3.50 01/14/23 08:00 36.2 72 16 137/65 (89) 96 Nasal Cannula 2.50 01/14/23 07:00 77 01/14/23 06:55 97 Nasal Cannula 3.00 01/14/23 06:53 97 Nasal Cannula 3.00 01/14/23 04:59 36.0 72 20 146/66 (92) 96 Nasal Cannula 3.00 01/14/23 02:52 94 Nasal Cannula 3.00 01/14/23 01:00 75 01/13/23 23:10 36.9 87 18 154/68 (96) 92 Nasal Cannula 3.00 01/13/23 21:00 94 Nasal Cannula 3.00 01/13/23 20:59 83 Nasal Cannula 3.00 01/13/23 20:09 37.1 86 18 153/70 (97) 91 Nasal Cannula 3.00 01/13/23 19:53 Nasal Cannula 3.50 01/13/23 19:00 89 01/13/23 18:56 95 Nasal Cannula 3.00 01/13/23 15:59 37.2 84 18 148/70 (96) 97 Nasal Cannula 2.00 01/13/23 15:05 94 Nasal Cannula 3.00 01/13/23 13:00 97 I & O 01/14/23 07:00 Intake Total 1940 ml Output Total 2325 ml Balance -385 ml Height & Weight Height: 5'8.00" Weight: 170lbs. 8.0oz. 77.686311lr; 40.14 BMI Method:Stated General Appearance: No Apparent Distress, Chronically ill HEENT: PERRL/EOMI, Normal ENT Inspection, Pharynx Normal, Moist Mucous Membranes Neck: Full Range of Motion, Normal Inspection, Non Tender Respiratory: Chest Non Tender, No Accessory Muscle Use, No Respiratory Distress, Crackles, Decreased Breath Sounds Cardiovascular: Regular Rate, Rhythm, No Edema, No Gallop, No JVD, No Murmur, Normal Peripheral Pulses Capillary Refill: Less Than 3 Seconds Extremity: Normal Capillary Refill, Normal Inspection, Normal Range of Motion, Non Tender, No Calf Tenderness, No Pedal Edema Neurologic/Psychiatric: Alert, Oriented x3, No Motor/Sensory Deficits, Normal Mood/Affect Skin: Normal Color, Warm/Dry Lymphatic: No Adenopathy Results Lab Laboratory Tests 01/12/23 20:23 01/13/23 05:34 01/14/23 11:30 Assessment/Plan Assessment/Plan See free text. Critical Care: Critically Ill Patient FANNY ROSEN MD Jan 14, 2023 11:54
[2023-01-14 11:55] LABS: TOTAL PROTEIN 5.4 GM/DL (6.4-8.2)
[2023-01-14 11:57] VITALS: BP 160/77
[2023-01-14 11:57] LABS: BILIRUBIN,TOTAL 0.4 MG/DL (0.1-1.0)
[2023-01-14 11:58] LABS: CREATININE SERUM 0.96 MG/DL (0.60-1.30)
[2023-01-14] MEDS: methylPREDNISolone 40 MG/ML (Solu-MEDROL) VIAL IV SCH ×3 (12:19→23:43)
--- NOTE | 2023-01-14 15:48 | Progress Note-Pre Operative ---
Pre-Operative Progress Note Date of Available H&P: Jan 14, 2023 Date H&P Reviewed: Jan 14, 2023 Time H&P Reviewed: 15:30 Pre-Operative Diagnosis: COPD with poor peripheral venous circulation. NIR DOMINGUEZ MD Jan 14, 2023 15:48
--- NOTE | 2023-01-14 16:47 | CONSULTATION REPORT ---
DATE OF SERVICE: 01/14/2023 ATTENDING SHAKE MAKER: [facility]. ADMITTING PHYSICIAN: Dr. Sanz. HISTORY OF PRESENT ILLNESS: The patient is a 72-year-old male who has had multiple admissions due to exacerbation of chronic obstructive pulmonary disease and increased work of breathing. He does state that he is oxygen dependent at home and also has worsening shortness of breath upon exertion. The patient has very poor peripheral venous circulation due to his body habitus and multiple attempts at IV placement have been done without any success. The patient will need a long-term access with a Groshong implantable catheter, which he has had before in the past. On this admission, we will schedule him for placement of Groshong implantable catheter in the right subclavian. He does have a pacemaker in the left subclavian vein. PAST MEDICAL HISTORY: COPD, coronary artery disease, bilateral lower extremity edema, atrial fibrillation, congenital heart disease, history of myocardial infarction, hypertension, neuropathy, neurogenic bladder, chronic constipation, degenerative joint disease, asthma. PAST SURGICAL HISTORY: Appendectomy, joint replacement surgery, pacemaker implantation, bilateral carpal tunnel release, back ORIF x3, 11 bilateral hip surgeries due to avascular necrosis. ALLERGIES: CODEINE, STREPTOKINASE. MEDICATIONS: Albuterol 90 mcg inhaler every 6 hours p.r.n., aspirin 81 mg daily, Bethanechol 10 mg b.i.d., enoxaparin 40 mg q.12 hours, gabapentin 300 mg t.i.d., detemir insulin 15 units b.i.d., loperamide 2 mg p.r.n., metoprolol 25 mg daily, oxycodone 5 mg q.6 hours p.r.n., Protonix 40 mg daily, prednisone 10 mg daily, ranolazine 500 mg b.i.d. SOCIAL HISTORY: Previous smoke 50 pack years, previous history of opiate abuse. He does drink beer socially. FAMILY HISTORY: Noncontributory. PHYSICAL EXAMINATION: VITAL SIGNS: Temperature 36.6, blood pressure 139/76, pulse 76, respirations 18, pulse ox 97% on 3 liters nasal cannula. REVIEW OF SYSTEMS: Well-nourished male, currently in no acute distress. He is not experiencing any shortness of breath or difficulty in breathing. No new cough or sputum production. No nausea or vomiting, with intermittent episodes of diarrhea. No red blood per rectum, no dark tarry stools. No fever or chills. No recent inadvertent weight loss. All other review of systems negative. PHYSICAL EXAM: CHEST: Scattered wheezes, rhonchi and distant breath sounds bilaterally. HEART: Regular. No murmurs. EXTREMITIES: No lower extremity edema. Negative Homans sign. HEENT: No scleral icterus. No cervical lymphadenopathy. ABDOMEN: Soft, nontender, nondistended. SKIN: Warm, dry. LABORATORY DATA: WBC 13.9, hemoglobin 10.4, hematocrit 31, platelets 336, BUN 26, creatinine 0.96. Beta natriuretic peptide 292.4. ASSESSMENT AND PLAN: A 72-year-old male with multiple medical problems including cardiac arrhythmia, history of myocardial infarction, hypertension, hypercholesterolemia as well as recurrent episodes of COPD exacerbation requiring admissions and IV medical therapy with extremely poor peripheral venous circulation. Due to these issue, the benefits of Groshong Implantable catheter were explained to the patient and he is in full understanding of this and would like to proceed with placement of this catheter under fluoroscopy, which we will schedule for tomorrow. Job ID: [id number] DocumentID: [id number] Dictated Date: 01/14/2023 16:06:39 Splitter Head Date: 01/14/2023 16:44:00 Dictated By: NIR DOMINGUEZ MD [facility]
[2023-01-15] MEDS: morphine INJ 4 MG/ML 1 ML (VIAL/SYRINGE) IV PRN ×4 (02:30→21:59)
[2023-01-15] MEDS: RT-ALBUTEROL/IPRATROPIUM 3 ML (DUONEB) VIAL INH SCH ×6 (02:31→21:44)
[2023-01-15] MEDS: CEFEPIME 1,000 MG/NS 50 ML IVPB IV SCH ×8 (03:10→21:59)
[2023-01-15] MEDS: VANCOMYCIN 1250 MG/NS 250 ML PREMIX IV SCH ×2 (03:47→15:45)
[2023-01-15 04:06] LABS: ABG BASE EXCESS 7.2 MMOL/L (-2.5-2.5); ABG OXYGEN SATURATION 97 % (94-100); ABG PCO2 51 MMHG (35-45); ABG PH 7.41 (7.37-7.43); ABG PO2 79 MMHG (79-93); ABG TCO2 33.6 MMOL/L (21.0-31.0)
[2023-01-15 04:07] LABS: ALLENS TEST YES-POS; INSPIRED O2 5L OXYMASK; PATIENT TEMP 36.3; VENTILATOR NO
[2023-01-15 04:15] LABS: BASOPHILS % (AUTO) 0 % (0-10); EOSINOPHILS % (AUTO) 0 % (0-10); HEMATOCRIT 32 % (40-54); HEMOGLOBIN 10.5 g/dL (13.3-17.7); LYMPHOCYTES # (AUTO) 0.5 10^3/uL (1.0-4.0); LYMPHOCYTES % (AUTO) 3 % (12-44); MEAN CORPUSCULAR HEMOGLOBIN 31 pg (25-34); MEAN CORPUSCULAR HGB CONC 33 g/dL (32-36); MEAN CORPUSCULAR VOLUME 93 fL (80-99); MEAN PLATELET VOLUME 10.9 fL (9.0-12.2); MONOCYTES # (AUTO) 0.4 10^3/uL (0.0-1.0); MONOCYTES % (AUTO) 3 % (0-12); NEUTROPHILS # (AUTO) 13.2 10^3/uL (1.8-7.8); NEUTROPHILS % (AUTO) 92 % (42-75); PLATELET COUNT 339 10^3/uL (130-400); WHITE BLOOD COUNT 14.3 10^3/uL (4.3-11.0)
[2023-01-15 04:47] LABS: ALBUMIN 2.9 GM/DL (3.2-4.5); POTASSIUM 4.9 MMOL/L (3.6-5.0)
[2023-01-15 04:48] LABS: CALCIUM 9.5 MG/DL (8.5-10.1)
[2023-01-15 04:50] LABS: TOTAL PROTEIN 5.5 GM/DL (6.4-8.2)
[2023-01-15 04:51] LABS: BILIRUBIN,TOTAL 0.4 MG/DL (0.1-1.0)
[2023-01-15 04:53] LABS: CREATININE SERUM 1.11 MG/DL (0.60-1.30); PHOSPHORUS 3.9 MG/DL (2.3-4.7)
[2023-01-15 04:56] LABS: MAGNESIUM 1.6 MG/DL (1.6-2.4)
[2023-01-15] MEDS: MAGNESIUM 1 GM/100 ML IVPB 100 ML IV SCH ×4 (05:33→07:47)
[2023-01-15] MEDS: POTASSIUM CL 10MEQ/50ML IVPB 50 ML IV SCH (05:33)
[2023-01-15] MEDS: KCL 20 MEQ TAB (K-DUR) PO SCH (05:35)
[2023-01-15] MEDS: NITROGLYCERIN 2% OINT 1 GM UNIT DOSE PACKET TOP SCH ×3 (05:42→21:59)
[2023-01-15] MEDS: methylPREDNISolone 40 MG/ML (Solu-MEDROL) VIAL IV SCH ×4 (05:42→23:20)
[2023-01-15] MEDS: CATHETER FLUSH 10 ML SYR IVP SCH ×3 (05:42→23:21)
[2023-01-15] MEDS: inSUlin ASPART (NovoLOG) 1 UNIT/0.01 ML (CHARGE PER UNIT) SC SCH ×4 (07:06→20:00)
[2023-01-15] MEDS: RT--FLUTICASONE/SALMETEROL 232-14 (AIRDUO RespiCLICK) IH SCH ×2 (07:14→21:44)
[2023-01-15] MEDS: PANTOPRAZOLE 40 MG (PROTONIX) TAB PO SCH (07:50)
[2023-01-15] MEDS: ASPIRIN E.C. 81 MG (ECOTRIN) TAB PO SCH (07:50)
--- NOTE | 2023-01-15 08:38 | Cardiology Progress Note ---
Subjective Date Seen by Provider: Jan 15, 2023 Time Seen by Provider: 08:36 Subjective/Events-last exam Patient in bed, reports episode of right sided chest pain last night, denies any further episode. Continues to have dyspnea. Objective-Cardiology Exam Last Set of Vital Signs Vital Signs 01/13/23 01/15/23 01/15/23 01:42 07:20 08:00 Temp 36.3 Pulse 81 Resp 21 B/P (MAP) 124/99 (107) Pulse Ox 93 O2 Delivery OxyMask O2 Flow Rate 5.00 FiO2 32 I&O Intake and Output 01/15/23 00:00 Intake Total 1300 ml Output Total 3150 ml Balance -1850 ml Intake Oral 1000 ml IV Total 300 ml Output Urine Total 3150 ml General: Alert, Oriented X3, Cooperative HEENT: Atraumatic, PERRLA Lungs: Other (bilat wheezing and rhonchi) Heart: Regular Rate, Normal S1, Normal S2 Abdomen: Normal Bowel Sounds, Soft Extremities: No Edema Neuro: Normal Speech Psych/Mental Status: Mental Status NL, Mood NL Results Lab Laboratory Tests 01/14/23 11:30 01/15/23 03:55 A/P-Cardiology Admission Diagnosis Pneumonia Chest pain CAD HLP Assessment/Plan Acute respiratory failure, Receiving bronchodilators and antibiotic Mildly hypoxemic but overall improving Managed by medical team Pneumonia, management per medical services Pulmonary consultation appreciated, recommendation was made using long-term antibiotics as an outpatient Aggressive bronchodilators and slow tapering steroid dose Chest pain, nonspecific etiology, EKG showing paced rhythm with no acute ST changes. Has mildly elevated troponin, which has been chronically mildly elevated since Jul 2022. Type II myocardial infarction secondary to small vessel disease. Chest pain likely d/t known small vessel disease. Conservative management is recommended, no intervention is warranted Continue to monitor Labile blood pressure, history of noncompliance, educated about the importance of compliance with medications at home I will discontinue Nitropatch and monitor tolerance and monitor blood pressure History of alcohol intoxication, history of alcoholism and polysubstance abuse. Managed by medical team Coronary artery disease, cardiac catheterization carried out in 2012 and 2014 with diffuse atherosclerotic plaques. Nonobstructive disease. Cardiac catheterization was carried out by Dr. Houser on August 26, 2022 with nonobstructive coronary artery disease. iFR was done through the circumflex artery. Review of his cardiac catheterization film showed calcification in the left main and the proximal LAD with mild to moderate disease, 50% stenosis in the mid circumflex artery with IFR 0.97. Small vessel disease distally, dominant circumflex artery. 2D echo done on Dec 22, 2022 with mild concentric hypertrophy. Ejection fraction 60-65%, grade 2 diastolic dysfunction, biatrial enlargement Hyperlipidemia, well controlled on current medication, continue to monitor History of dual-chamber pacemaker due to sinus node dysfunction, he has history of sinus pause for 3.2 second. Most recent interrogation done October 2022 showing good sensing and capturing. Continue to monitor History of avascular necrosis of the hip, underwent multiple hip surgeries in the past and hip replacements. History of gastroesophageal reflux disease, COPD. Polysubstance use for pain control Previous history of tobaccoism Supervisory-Addendum Brief Supervisory Addendum Participated in pt care: history, MDM, physical Personally performed: exam, history, MDM Care discussed with: LO Results interpretation: Verified all documentation Notes: Patient was seen and evaluated with Brooks, examination performed, management plan was discussed, agree with the current scribed note, I made few changes to the note using Italic font Patient was seen at bedside, still having shortness of breath, on oxygen mask Denied any chest pain, we will stop the nitroglycerin and monitor blood pressure Continue with antibiotic and bronchodilators BROOKS GOLD Jan 15, 2023 08:38 SKYLA SQUIRES MD Jan 15, 2023 09:40
[2023-01-15] MEDS ORDERED: LACTATED RINGERS 1,000 ML IV PRN (08:45)
[2023-01-15] MEDS: RANOLAZINE ER 500 MG TAB (RANEXA) PO SCH ×2 (09:17→20:13)
[2023-01-15] MEDS: ENOXAPARIN 40 MG/0.4 ML (LOVENOX) SYR SC SCH ×2 (09:17→20:13)
[2023-01-15] MEDS: BETHANECHOL 10 MG (URECHOLINE) TAB PO SCH ×2 (09:17→20:13)
[2023-01-15] MEDS: GABAPENTIN 300 MG (NEURONTIN) CAP PO SCH ×3 (09:17→20:13)
[2023-01-15] MEDS: ASPIRIN 81 MG CHEW (CHILDREN'S ASA) PO SCH (09:17)
--- NOTE | 2023-01-15 12:44 | Progress Note - Hospitalist ---
DELGADO DOUGHERTY 01/15/23 1244: Subjective HPI/CC On Admission Date Seen by Provider: Jan 15, 2023 Time Seen by Provider: 09:10 CC: SULLY HPI: This is a 72yoWM clinic patient of [facility] with multiple recurrent hospital s tays every week who presents from [place] with increased work of breathing. IV abx initiated. Dr Trevino saw the patient and recommended Pulmo consult so I updated pulmonology. PICC line being placed due to poor vascular access. Surgery consulted and will be placing port on 01/15. Patient appears to be more declined each time he comes to hospital. Pain meds initiated. Subjective/Events-last exam Feeling better today. He is voiding and having bowel movements but not out of bed because he says his legs are too weak. He did vomit twice last night after dinner. He denies N/V this AM and thinks dinner just didn't sit right with him. He thinks his breathing is better and says he feels some mild chest pain/tightness that comes and goes but otherwise no complaints. Objective Exam Vital Signs Vital Signs Date Time Temp Pulse Resp B/P (MAP) Pulse Ox O2 Delivery O2 Flow Rate FiO2 01/15/23 12:21 100 OxyMask 1.00 01/15/23 12:00 70 8 126/68 (87) 01/15/23 07:20 36.3 01/13/23 01:42 32 Capillary Refill : Less Than 3 Seconds General Appearance: Mild Distress, Obese HEENT: PERRL/EOMI, Pharynx Normal Neck: Full Range of Motion, Normal Inspection, Non Tender, Supple Respiratory: Crackles, Wheezing, Other (Coarse/wheezing throughout.) Cardiovascular: Regular Rate, Rhythm, No Murmur Gastrointestinal: Normal Bowel Sounds, Non Tender, Soft Extremity: Non Tender, No Calf Tenderness, Pedal Edema (+2-3 pitting edema midshins.) Neurologic/Psychiatric: Alert, Oriented x3 Skin: Normal Color, Warm/Dry Results/Procedures Lab Laboratory Tests 01/15/23 03:55 Patient resulted labs reviewed. Imaging: Reviewed Imaging Films, Reviewed Imaging Report Radiology NAME: NI ESPINOZA MED REC#: [id number] PT STATUS: ADM [place] : 1950 PHYSICIAN: KIRSTEN BHANDARI DO ADMIT DATE: 01/13/23/ICU Signed Date of Exam:01/14/23 CHEST 1 VIEW, AP/PA ONLY INDICATION: Hypoxemia. EXAMINATION: Portable chest at 11:04 AM. FINDINGS: There is a dual-chamber pacemaker. There is a small left pleural effusion. There is some questionable left perihilar infiltrate. IMPRESSION: Questionable left perihilar infiltrate. Small left pleural effusion. Findings appear similar to the previous day's exam. Dictated by: Dictated on workstation # [id number] Dict: 01/14/23 1109 Trans: 01/14/23 1359 [id number] Interpreted by: CARROLL CAMPOS MD Electronically signed by: CARROLL CAMPOS MD 01/14/23 1359 Assessment/Plan Assessment and Plan Assess & Plan/Chief Complaint Assess & Plan/Chief Complaint Acute on chronic respiratory failure requiring transfer to ICU 01/14/23 Acute COPD Exacerbation PNA -R/p CXR w/ possible Lt perihilar infiltrate -ABG 7.45/48/93/33 --> 7.41/51/79/32 (01/15) - worsening CO2 trapping/acidosis and worsening hypoxia -Metabolic alkalosis w/ acute respiratory acidosis -Blood cultures returned with probable strep viridins; sensitivties pending -On Vanc/cefepime -IV solumedrol -Duonebs PRN -Airduo BID -To OR today for Port access GELACIO Pre-renal BUN/Cr ratio 29 -Will add maintenance fluids once port access in place since pt is having vomiting. -Cr trend from 0.79 to 1.11 today (01/15) -UOP 1.34 ml/kg/hr yesterday only at 0.23 today; -Titrate fluids to maintain UOP >=0.5 ml/kg/hr Diarrhea/Vomiting - Unknown Etiology -Likely causing the metabolic alkalosis -Hold bowel regimen -Monitor electrolytes Hyperglycemia - improved SSI, Levemir 15u BID Coronary Artery Disease Dual Chamber Pacemaker Placement CHF -Cardiology managing/following -On ASA -Echo given status and strep viridins on blood culture? -BNP 292; Debility/Self-care Deficit HTN -BPs controlled -On nitrobid Anemia - Unknown Etiology -MCV in 90s -Likely of chronic disease HLD - holding statin at this time GERD -PPI ordered FEN/GI -Maintenance fluids after surgery; FU renal function -Replace electrolytes PRN -NPO for surgery today; regular diet ADAT after -PPI -Hold bowel regimen for diarrhea at this time DVT Ppx: Lovenox, SCDs Clinical Quality Measures AMI/AHF: ASA po Prior to arrival: No KIRSTEN BHANDARI DO 01/16/23 0509: Supervisory-Addendum Brief Verification & Attestation Participated in pt care: history, MDM, physical Personally performed: exam, history, MDM, supervision of care Care discussed with: Medical Student Procedures: n/a Results interpretation: Verified all documentation Verification and Attestation of Medical Student E/M Service A medical student performed and documented this service in my presence. I reviewed and verified all information documented by the medical student and made modifications to such information, when appropriate. I personally performed the physical exam and medical decision making. Kirsten Bhandari, Jan 16, 2023,05:09 DELGADO DOUGHERTY Jan 15, 2023 12:44 KIRSTEN BHANDARI DO Jan 16, 2023 05:09
[2023-01-15] MEDS ORDERED: 0.9% SODIUM CHLORIDE PF INJ 20 ML VIAL ONE (13:23)
[2023-01-15] MEDS ORDERED: BUP/EPI 0.25% 1:200,000 (MARCAINE) 30 ML VIAL ONE (13:23)
[2023-01-15] MEDS ORDERED: HEParin (CENTRAL IV FLUSH) 500 UNIT/5 ML SYR ONE (13:23)
[2023-01-15] MEDS ORDERED: PROPOFOL INJECTION 50 ML IV ONE (14:24)
--- NOTE | 2023-01-15 14:31 | Progress Note-Post Operative ---
Post-Operative Progess Note Surgeon (s)/Mobile Application Tester (s) Surgeon NIR DOMINGUEZ MD Mobile Application Tester: red king STERILIZATION TECHNICIAN Pre-Operative Diagnosis COPD with poor peripheral venous circulation. Post-Operative Diagnosis same Procedure & Operative Findings Date of Procedure 01/15/23 Procedure Performed/Findings right sc groshong catheter placement under flouroscopy. Anesthesia Type mac with local Estimated Blood Loss Estimated blood loss (mL): minimal Specimens/Packing Specimens Removed none NIR DOMINGUEZ MD Jan 15, 2023 14:31
[2023-01-15 14:48] VITALS: BP 134/73
[2023-01-15 14:50] VITALS: BP 124/66
[2023-01-15 15:00] VITALS: BP 124/66
[2023-01-15] MEDS ORDERED: HEParin (CENTRAL IV FLUSH) 500 UNIT/5 ML SYR IV ONE (15:05)
[2023-01-15] MEDS ORDERED: 0.9% SODIUM CHLORIDE PF INJ 20 ML VIAL IV ONE (15:07)
[2023-01-15] MEDS ORDERED: morphine INJ 10 MG/ML 1ML (SYR OR VIAL) ONE (15:08)
[2023-01-15] MEDS ORDERED: BUP/EPI 0.25% 1:200,000 (MARCAINE) 30 ML VIAL INJ ONE (15:08)
[2023-01-15 15:10] VITALS: BP 135/72
[2023-01-15] MEDS ORDERED: morphine INJ 10 MG/ML 1ML (SYR OR VIAL) IVP ONE (15:15)
[2023-01-15 15:20] VITALS: BP 145/78
--- NOTE | 2023-01-15 15:26 | Diagnostic Imaging Report ---
INDICATION: Port placement evaluation. FINDINGS: AP view of chest is obtained with comparison made to study of one day earlier. Cardiomegaly and pulmonary venous congestion are present with probable mild pulmonary edema and mild pleural fluid, greater on the left. There has been placement of right anterior chest wall port with catheter tip projecting over the junction of superior vena cava and right atrium. Left anterior chest wall dual-chamber cardiac pacemaker is in place. There is no evidence of pneumothorax. IMPRESSION: Basilar atelectasis and mild pleural fluid with probable mild congestive heart failure. There is no evidence of complication related to right anterior chest wall port placement. Dictated by: Dictated on workstation # [id number]
--- NOTE | 2023-01-15 16:12 | Anesthesia-General Post-Op ---
MAC Patient Condition Mental Status/LOC: Same as Preop Cardiovascular: Satisfactory Nausea/Vomiting: Absent Respiratory: Satisfactory Pain: Controlled Complications: Absent Post Op Complications Complications None Follow Up Care/Instructions Patient Instructions None needed. Anesthesiology Discharge Order Discharge Order Patient is doing well, no complaints, stable vital signs, no apparent adverse anesthesia problems. No complications reported per nursing. CARLIN BOUDREAUX CRNA Jan 15, 2023 16:12
--- NOTE | 2023-01-15 16:16 | Diagnostic Imaging Report ---
INDICATION: Port-A-Cath placement Intraoperative fluoroscopy views obtained during Port-A-Cath placement surgery. 2 views are obtained, 12.0 seconds of fluoroscopy time was used. Intraoperative fluoroscopy views demonstrate port in place from right-sided approach with tip poorly visualized, but probably over the distal SVC. Pacemaker wires are in place. IMPRESSION: Intraoperative views demonstrate Port-A-Cath placement as above. Dictated by: Dictated on workstation # [id number]
--- NOTE | 2023-01-15 20:40 | OPERATIVE REPORT ---
DATE OF SERVICE: 01/15/2023 ATTENDING PRIMARY SCRIPT WORKER: [facility]. ADMITTING PHYSICIAN: Dr. Sanz. PREOPERATIVE DIAGNOSES: Recurrent exacerbation of chronic obstructive pulmonary disease with poor peripheral venous circulation. POSTOPERATIVE DIAGNOSES: Recurrent exacerbation of chronic obstructive pulmonary disease with poor peripheral venous circulation. PROCEDURE: Placement of right subclavian Groshong implantable catheter under fluoroscopy. SURGEON: Nir Dominguez MD COMMUNITY AIDE: Leonardo Marcelino APRN ANESTHESIA: Monitored anesthesia care with local. ESTIMATED BLOOD LOSS: Minimal. FINDINGS: Catheter tip at superior vena caval - right atrial junction. DISPOSITION: The patient tolerated the procedure well. INDICATIONS: The patient is a 72-year-old male who has had multiple admissions due to exacerbation of chronic obstructive pulmonary disease and increased work of breathing. He states that he is oxygen dependent at home; however, this has been worsening in recent months. The patient also has very poor peripheral venous circulation due to his body habitus and multiple attempts at IV placements have been done without any success. The patient will need long-term access with a Groshong implantable catheter. DESCRIPTION OF PROCEDURE: The patient was brought to the operating room, laid supine on the table. After adequate IV pain and sedative medications and monitored anesthesia care, the chest and neck were prepped and draped in standard surgical fashion. 1% lidocaine with epinephrine was then used to anesthetize the left subclavian region. The left subclavian was then cannulated with drawing of venous blood. A guidewire was then inserted under fluoroscopy. Cannulating needle removed and a skin incision made using a #15 blade. Dilator and sheath were then placed over the guidewire, the guidewire and the dilator were then removed and the Groshong catheter placed through the sheath until the catheter tip was at the superior vena cava -- right atrial junction under fluoroscopy. The sheath was then removed. The inner wire within the catheter removed and the catheter cut down to size and a port placed onto the catheter. The chest reservoir was then created by extending the skin incision laterally using a #15 blade. A plane was then created between the subcutaneous fat and the anterior pectoralis fascia using blunt dissection as well as electrocautery with visualization of good hemostasis. The port was then placed into the reservoir and sutured it to the anterior pectoralis fascia using 3-0 Vicryl sutures. The subcutaneous tissue was then reapproximated with the same suture in an interrupted manner and the skin was closed using 4-0 Monocryl running subcuticular suture. Wounds were then cleaned and covered with Dermabond. The patient tolerated the procedure well. We will get a post-procedure chest x-ray and the port may be accessed and used at any time. Job ID: [id number] DocumentID: [id number] Dictated Date: 01/15/2023 14:35:23 Coremaker Experimental Date: 01/15/2023 20:38:00 Dictated By: NIR DOMINGUEZ MD
[2023-01-15] MEDS: polyethylene glycoL POWDER 17 GM (MIRALAX) PACK PO SCH (21:59)
[2023-01-16] MEDS: RT-ALBUTEROL/IPRATROPIUM 3 ML (DUONEB) VIAL INH SCH ×4 (02:48→19:14)
[2023-01-16] MEDS: morphine INJ 4 MG/ML 1 ML (VIAL/SYRINGE) IV PRN ×3 (02:59→23:59)
[2023-01-16] MEDS ORDERED: morphine INJ 10 MG/ML 1ML (SYR OR VIAL) IVP STA (03:10)
[2023-01-16] MEDS: CEFEPIME 1,000 MG/NS 50 ML IVPB IV SCH ×8 (03:11→21:37)
[2023-01-16 03:31] LABS: ABG BASE EXCESS 4.8 MMOL/L (-2.5-2.5); ABG OXYGEN SATURATION 96 % (94-100); ABG PCO2 44 MMHG (35-45); ABG PH 7.44 (7.37-7.43); ABG PO2 74 MMHG (79-93); ABG TCO2 30.4 MMOL/L (21.0-31.0)
[2023-01-16 03:32] LABS: ALLENS TEST YES-POS; BASOPHILS % (AUTO) 0 % (0-10); EOSINOPHILS % (AUTO) 0 % (0-10); HEMATOCRIT 31 % (40-54); HEMOGLOBIN 10.5 g/dL (13.3-17.7); INSPIRED O2 1; LYMPHOCYTES # (AUTO) 0.5 10^3/uL (1.0-4.0); LYMPHOCYTES % (AUTO) 3 % (12-44); MEAN CORPUSCULAR HEMOGLOBIN 31 pg (25-34); MEAN CORPUSCULAR HGB CONC 33 g/dL (32-36); MEAN CORPUSCULAR VOLUME 94 fL (80-99); MEAN PLATELET VOLUME 10.7 fL (9.0-12.2); MONOCYTES # (AUTO) 0.5 10^3/uL (0.0-1.0); MONOCYTES % (AUTO) 3 % (0-12); NEUTROPHILS # (AUTO) 16.3 10^3/uL (1.8-7.8); NEUTROPHILS % (AUTO) 93 % (42-75); PLATELET COUNT 326 10^3/uL (130-400); VENTILATOR NO; WHITE BLOOD COUNT 17.5 10^3/uL (4.3-11.0)
[2023-01-16 03:33] LABS: PATIENT TEMP 36.3
[2023-01-16 03:41] LABS: POTASSIUM 4.4 MMOL/L (3.6-5.0)
[2023-01-16 03:42] LABS: CALCIUM 9.3 MG/DL (8.5-10.1)
[2023-01-16 03:43] LABS: TOTAL PROTEIN 5.5 GM/DL (6.4-8.2)
[2023-01-16 03:45] LABS: BILIRUBIN,TOTAL 0.4 MG/DL (0.1-1.0)
[2023-01-16 03:46] LABS: PHOSPHORUS 4.8 MG/DL (2.3-4.7)
[2023-01-16 03:47] LABS: CREATININE SERUM 1.24 MG/DL (0.60-1.30)
[2023-01-16 03:49] LABS: MAGNESIUM 2.1 MG/DL (1.6-2.4)
[2023-01-16] MEDS: PANTOPRAZOLE 40 MG (PROTONIX) TAB PO SCH (06:12)
[2023-01-16] MEDS: NITROGLYCERIN 2% OINT 1 GM UNIT DOSE PACKET TOP SCH (06:12)
[2023-01-16] MEDS: methylPREDNISolone 40 MG/ML (Solu-MEDROL) VIAL IV SCH ×4 (06:12→23:59)
[2023-01-16] MEDS: inSUlin ASPART (NovoLOG) 1 UNIT/0.01 ML (CHARGE PER UNIT) SC SCH ×4 (06:12→20:16)
[2023-01-16] MEDS: CATHETER FLUSH 10 ML SYR IVP SCH ×3 (06:13→21:38)
[2023-01-16] MEDS: KCL 20 MEQ TAB (K-DUR) PO SCH (06:13)
[2023-01-16] MEDS: MAGNESIUM 1 GM/100 ML IVPB 100 ML IV SCH (06:13)
[2023-01-16] MEDS: POTASSIUM CL 10MEQ/50ML IVPB 50 ML IV SCH (06:13)
--- NOTE | 2023-01-16 06:28 | Progress Note - Hospitalist ---
Subjective HPI/CC On Admission Date Seen by Provider: Jan 16, 2023 Time Seen by Provider: 11:00 CC: PNA HPI: This is a 72yoWM clinic patient of [facility] with multiple recurrent hospital stays every week who presents [place] with increased work of breathing. IV abx initiated. Dr Trevino saw the patient and recommended Pulmo consult so I updated pulmonology. PICC line being placed due to poor vascular access. Surgery consulted and will be placing port on 01/15. Patient appears to be more declined each time he comes to hospital. Pain meds initiated. Subjective/Events-last exam No major issues Port placed yesterday Lungs improved Less tachypnea Review of Systems General: Fatigue, Malaise Pulmonary: Dyspnea Objective Exam Vital Signs Vital Signs Date Time Temp Pulse Resp B/P (MAP) Pulse Ox O2 Delivery O2 Flow Rate FiO2 01/16/23 15:55 36.7 70 18 142/66 (91) 93 OxyMask 3.00 01/13/23 01:42 32 Capillary Refill : Less Than 3 SecondsLess Than 3 Seconds General Appearance: No Apparent Distress, WD/WN Respiratory: Lungs Clear, Normal Breath Sounds, Decreased Breath Sounds Cardiovascular: Regular Rate, Rhythm Neurologic/Psychiatric: Alert, Oriented x3, Normal Mood/Affect Results/Procedures Lab Laboratory Tests 01/16/23 03:19 Patient resulted labs reviewed. Imaging: Reviewed Imaging Films, Reviewed Imaging Report Assessment/Plan Assessment and Plan Assess & Plan/Chief Complaint Assess & Plan/Chief Complaint Acute on chronic respiratory failure requiring transfer to ICU 01/14/23 AECOPD PNA Diarrhea - Unknown Etiology Hyperglycemia Coronary Artery Disease Dual Chamber Pacemaker Placement Debility/Self-care Deficit HTN Anemia - Unknown Etiology HLD GERD Plan: IV abx Home meds Move to 4th BiPAP CXR ABG Critical Care Critically Ill Patient Clinical Quality Measures AMI/AHF: ASA po Prior to arrival: ZOHREH Cordero DO Jan 16, 2023 06:28
[2023-01-16] MEDS: RT--FLUTICASONE/SALMETEROL 232-14 (AIRDUO RespiCLICK) IH SCH ×2 (06:54→19:20)
[2023-01-16 06:57] VITALS: BP 171/130
[2023-01-16] MEDS: ENOXAPARIN 40 MG/0.4 ML (LOVENOX) SYR SC SCH ×2 (08:05→21:37)
[2023-01-16] MEDS: BETHANECHOL 10 MG (URECHOLINE) TAB PO SCH ×2 (08:05→21:37)
[2023-01-16] MEDS: ASPIRIN E.C. 81 MG (ECOTRIN) TAB PO SCH (08:05)
[2023-01-16] MEDS: RANOLAZINE ER 500 MG TAB (RANEXA) PO SCH ×2 (08:05→21:37)
[2023-01-16] MEDS: GABAPENTIN 300 MG (NEURONTIN) CAP PO SCH ×3 (08:05→21:37)
--- NOTE | 2023-01-16 08:24 | Cardiology Progress Note ---
Subjective Date Seen by Provider: Jan 16, 2023 Time Seen by Provider: 08:20 Subjective/Events-last exam Patient was seen at bedside, eating breakfast Feeling better. No new complaint Review of Systems General: No Chills, No Night Sweats, No Fatigue, No Malaise, No Appetite, No Other HEENT: No Head Aches, No Visual Changes, No Eye Pain, No Ear Pain, No Dysphasia, No Sinus Congestion, No Post Nasal Drip, No Sore Throat, No Other Pulmonary: Dyspnea; No Cough, No Pleuritic Chest Pain, No Other Cardiovascular: No: Chest Pain, Palpitations, Orthopnea, Paroxysmal Noc. Dyspnea, Edema, Lt Headedness, Other Objective-Cardiology Exam Last Set of Vital Signs Vital Signs 01/13/23 01/16/23 01/16/23 01:42 07:46 08:00 Temp 36.0 Pulse 69 Resp 17 B/P (MAP) 166/103 (124) Pulse Ox 90 O2 Delivery OxyMask O2 Flow Rate 1.00 FiO2 32 I&O Intake and Output 01/16/23 00:00 Intake Total 670 ml Output Total 1225 ml Balance -555 ml Intake Oral 170 ml IV Total 500 ml Output Urine Total 1225 ml # Emes[place] 1 General: Alert, Oriented X3, Cooperative HEENT: Atraumatic, PERRLA Neck: Supple, No JVD Lungs: Other (bilat wheezing and rhonchi) Heart: Regular Rate, Normal S1, Normal S2 Abdomen: Normal Bowel Sounds, Soft Extremities: No Clubbing, No Cyanosis, No Edema Skin: No Rashes Neuro: Normal Speech Psych/Mental Status: Mental Status NL, Mood NL Results Lab Laboratory Tests 01/16/23 03:19 A/P-Cardiology Admission Diagnosis Pneumonia Chest pain CAD HLP Assessment/Plan Status post acute respiratory failure, improving Receiving bronchodilators and antibiotic Mildly hypoxemic but overall improving Managed by medical team Pneumonia, management per medical services Pulmonary consultation appreciated, recommendation was made using long-term antibiotics as an outpatient Aggressive bronchodilators and slow tapering steroid dose Chest pain, nonspecific etiology, EKG showing paced rhythm with no acute ST changes. Has mildly elevated troponin, which has been chronically mildly elevated since Jul 2022. Type II myocardial infarction secondary to small vessel disease. Chest pain likely d/t known small vessel disease. Conservative management is recommended, no intervention is warranted Continue to monitor Labile blood pressure, history of noncompliance, educated about the importance of compliance with medications at home I will stop the Nitropatch and increase Toprol-XL to 50 mg daily, adding losartan 25 mg daily and evaluate tolerance and response. History of alcohol intoxication, history of alcoholism and polysubstance abuse. Managed by medical team Coronary artery disease, cardiac catheterization carried out in 2012 and 2014 with diffuse atherosclerotic plaques. Nonobstructive disease. Cardiac catheterization was carried out by Dr. Houser on August 26, 2022 with nonobstructive coronary artery disease. iFR was done through the circumflex artery. Review of his cardiac catheterization film showed calcification in the left main and the proximal LAD with mild to moderate disease, 50% stenosis in the mid circumflex artery with IFR 0.97. Small vessel disease distally, dominant circumflex artery. 2D echo done on Dec 22, 2022 with mild concentric hypertrophy. Ejection fraction 60-65%, grade 2 diastolic dysfunction, biatrial enlargement Hyperlipidemia, monitor lipids History of dual-chamber pacemaker due to sinus node dysfunction, he has history of sinus pause for 3.2 second. Most recent interrogation done October 2022 showing good sensing and capturing. Continue to monitor History of avascular necrosis of the hip, underwent multiple hip surgeries in the past and hip replacements. History of gastroesophageal reflux disease, COPD. Polysubstance use for pain control Previous history of tobaccoism SKYLA SQUIRES MD Jan 16, 2023 08:24
[2023-01-16] MEDS: meTOproloL SUCCINATE 50 MG (TOPROL XL) TAB PO SCH (10:44)
--- NOTE | 2023-01-16 10:45 | Tele-ICU Progress Note ---
Subjective Date Seen by a Provider: Jan 15, 2023 Time Seen by a Provider: 11:02 Subjective/Events-last exam (Tele-ICU Physician , Progress Note ) - LATE ENTRY FOR 01/15 Service provided via interactive audio and video telecommunications E-CARE system to a patient admitted to ICU bed in [facility]. Patient is seen today due to persistent need of ICU care Available chart/ vitals / labs / Images reviewed Video assessment done using teleICU camera, rest of exam as per RN Discussed with RN Events overnight : Afebrile hemodynamically stable Respiratory - I/O = Drips: Pressors- no Hospital course: (01/12) 72M Admitted to floor for COPD/PNA, elevated troponin, mild hyperkalemia. Was just DC'd from rehab for same thing. 4L NC baseline. CT chest fibrotic changes in [place]. HX polysubstance use for pain control and ETOH use. CHRONIC LICEA. Not severe/shock on stable O2 (01/14) TX to ICU for worsening resp. status although O2 req. stable ?CHF 01/15- RIGHT port placement A/P Right sided chest pain , seems to be pleuritic ( less likely musculs ) - intermittent -given low ddimer, PE is less likely . possible effusions. viral syndrome - would cont IS , nebs , abx and follow - if persist , one can consider to do CT to r/o peripneumonic effusion / empyema from previous infection Presumed HAP - symptoms not very specific anfdd cxr not very convinsing - will obtain sputum cx ( at risk for MDR and fungal , no oral candidiasis on exam bt RN ) - short course abx - 3-[address] scan chest - depending on symptoms progression - consider Azithromycin 250 3 times a week for few month , till get into pulmonoilogist care AECOPD - would cont steroids PO , slow taper COPD baseline 07/31/22 CT [facility]IE CHEST- fibrotic changes [place] suggest for his refractory symptoms to initiate - scheduled nebs tid-qid with DUO neb - add ICS inhaler bid - might consider treatment with daliresp 250 mcg once daily for 4 weeks COPD comorbidities: he does not have bronchiectasis, no pulm HTN , denies PND and GERD , He has mild chronic CO2 retention , might have IRAJ - might benefit for CPAP if has IRAJ - will neef PSG as out pt will need PFT as outpt at baseline moderate nonobstructive CAD s/p dual-chamber pacemaker due to sinus node dysfunction - -ECHO Dec 22, 2022 EF n 60-65%, grade 2 diastolic dysfunction, biatrial enlargement H/O avascular necrosis of the hip - s/p multiple hip surgeries in the past and hip replacements - chronic pain syndrome Polysubstance use for pain control ETOH use chronic anemia mild GERD Lines : 01/15- RIGHT port placement planned , (Central Line Necessity Reviewed) Licea: chronic licea OG: Nutrition: po Analgesia: Anxiety/ delirium VTE Prophylaxis: marjan Stress Ulcer Prophylaxis: ppi Plans in collaboration with bedside consultants and IM MDs. Discussed with RN to reach out if any questions or concerns Case and care daily discussed on multidisciplinary rounds ( RN, PharmD, Equipment Analyst , Respiratory Therapy, railroad worker ) A total of 20 minutes of critical care time was devoted to this patient today, required to treat and/or prevent further deterioration of critical care condition ( as above ) . I am remotely monitoring this patient from another state. I am unable to do the bedside exam, and history/physical and pertinent information is taken from other notes in the computer and bedside staff. Sepsis Event Evaluation Height, Weight, BMI Height: 5'8.00" Weight: 170lbs. 8.0oz. 77.971691rz; 40.26 BMI Method:Stated Exam Exam Patient acknowledged, consented, and participated in this virtual visit which was conducted using real time audio/video Vital Signs Date Time Temp Pulse Resp B/P (MAP) Pulse Ox O2 Delivery O2 Flow Rate FiO2 01/16/23 10:00 65 12 157/88 (111) 95 OxyMask 1.00 01/16/23 09:00 68 10 153/88 (109) 93 OxyMask 1.00 01/16/23 08:00 69 17 166/103 (124) 90 OxyMask 1.00 01/16/23 07:46 36.0 01/16/23 07:00 73 11 144/83 (103) 100 OxyMask 1.00 01/16/23 07:00 66 01/16/23 06:57 36.6 53 97 01/16/23 06:54 97 OxyMask 5.00 01/16/23 06:00 53 24 171/130 (144) 99 OxyMask 1.00 01/16/23 05:00 70 24 153/83 (106) 99 OxyMask 1.00 01/16/23 04:00 98 OxyMask 1.00 01/16/23 04:00 76 13 138/80 (99) 97 OxyMask 1.00 01/16/23 03:00 73 26 139/92 (108) 98 OxyMask 1.00 01/16/23 02:48 97 OxyMask 3.00 01/16/23 02:00 99 14 157/99 (118) 95 OxyMask 1.00 01/16/23 01:00 99 10 161/91 (114) 100 OxyMask 1.00 01/16/23 01:00 100 01/16/23 00:00 97 OxyMask 1.00 01/16/23 00:00 92 11 141/84 (103) 97 OxyMask 1.00 01/15/23 23:00 95 19 160/87 (111) 99 OxyMask 1.00 01/15/23 22:00 91 24 142/105 (117) 96 OxyMask 1.00 01/15/23 21:45 94 Room Air 01/15/23 21:00 96 11 147/86 (106) 94 OxyMask 1.00 01/15/23 20:00 67 27 146/85 (105) 96 OxyMask 1.00 01/15/23 20:00 98 OxyMask 1.00 01/15/23 19:50 36.6 01/15/23 19:02 100 OxyMask 1.00 01/15/23 19:00 75 01/15/23 19:00 80 17 153/92 (112) 99 OxyMask 1.00 01/15/23 18:00 64 13 139/76 (97) 96 OxyMask 1.00 01/15/23 17:00 86 17 93 OxyMask 1.00 01/15/23 16:00 64 11 141/80 (100) 98 OxyMask 1.00 01/15/23 16:00 97 OxyMask 1.00 01/15/23 15:25 OxyMask 1.00 01/15/23 15:20 36.3 20 145/78 (100) 96 OxyMask 1.00 01/15/23 15:15 OxyMask 1.00 01/15/23 15:10 20 135/72 (93) 97 OxyMask 1.00 01/15/23 15:00 20 124/66 (85) 97 OxyMask 1.00 01/15/23 15:00 OxyMask 1.00 01/15/23 15:00 75 11 138/76 (96) 91 OxyMask 1.00 01/15/23 14:50 20 124/66 (85) 97 OxyMask 1.00 01/15/23 14:48 OxyMask 3.00 01/15/23 14:48 36.3 20 134/73 (93) 99 OxyMask 3.00 01/15/23 13:00 72 11 125/72 (89) 99 OxyMask 1.00 01/15/23 12:49 64 01/15/23 12:21 100 OxyMask 1.00 01/15/23 12:00 70 8 126/68 (87) 100 OxyMask 1.00 01/15/23 11:02 OxyMask 1.00 01/15/23 11:00 73 22 125/65 (85) 100 OxyMask 5.00 I & O 01/16/23 07:00 Intake Total 820 ml Output Total 925 ml Balance -105 ml Height & Weight Height: 5'8.00" Weight: 170lbs. 8.0oz. 77.973722ak; 40.26 BMI Method:Stated General Appearance: Mild Distress, Obese HEENT: PERRL/EOMI, Pharynx Normal Neck: Full Range of Motion, Normal Inspection, Non Tender, Supple Respiratory: Crackles, Wheezing, Other (Coarse/wheezing throughout.) Cardiovascular: Regular Rate, Rhythm, No Murmur Capillary Refill: Less Than 3 Seconds Extremity: Non Tender, No Calf Tenderness, Pedal Edema (+2-3 pitting edema midshins.) Neurologic/Psychiatric: Alert, Oriented x3 Skin: Normal Color, Warm/Dry Lymphatic: No Adenopathy Results Lab Laboratory Tests 01/14/23 11:30 01/15/23 03:55 01/16/23 03:19 Assessment/Plan Assessment/Plan 1 CHRISTI MURRAY MD Jan 16, 2023 10:45
--- NOTE | 2023-01-16 10:49 | Tele-ICU Progress Note ---
Subjective Date Seen by a Provider: Jan 16, 2023 Time Seen by a Provider: 10:45 Subjective/Events-last exam (Tele-ICU Physician , Progress Note ) Service provided via interactive audio and video telecommunications E-CARE system to a patient admitted to ICU bed in [facility]. Patient is seen today due to persistent need of ICU care Available chart/ vitals / labs / Images reviewed Video assessment done using teleICU camera, rest of exam as per RN Discussed with RN Events overnight : Afebrile hemodynamically stable Respiratory - I/O = Drips: Pressors- no Hospital course: (01/12) 72M Admitted to floor for COPD/PNA, elevated troponin, mild hyperkalemia. Was just DC'd from rehab for same thing. 4L NC baseline. CT chest fibrotic changes in [place]. HX polysubstance use for pain control and ETOH use. CHRONIC LICEA. Not severe/shock on stable O2 (01/14) TX to ICU for worsening resp. status although O2 req. stable ?CHF 01/15- RIGHT port placement 01/16- ON 1 L O2 A/P Presumed HAP - symptoms not very specific anfdd cxr not very convincing - sputum cx - USUAL RESP LUCHO - short course abx - 3-5 d AECOPD - would cont steroids, changer to PO , slow taper COPD baseline 07/31/22 CT [facility]IE CHEST- fibrotic changes [place] suggest for his refractory symptoms to initiate - scheduled nebs tid-qid with DUO neb - add ICS inhaler bid to decrease rate of exacerbation: - might consider treatment with daliresp 250 mcg once daily for 4 weeks - consider Azithromycin 250 3 times a week for few month , till get into pulmonoilogist care COPD comorbidities: he does not have bronchiectasis, no pulm HTN , denies PND and GERD , He has mild chronic CO2 retention , might have IRAJ - might benefit for CPAP if has IRAJ - will neef PSG as out pt will need PFT as outpt at baseline moderate nonobstructive CAD s/p dual-chamber pacemaker due to sinus node dysfunction - -ECHO Dec 22, 2022 EF n 60-65%, grade 2 diastolic dysfunction, biatrial enlargement H/O avascular necrosis of the hip - s/p multiple hip surgeries in the past and hip replacements - chronic pain syndrome Polysubstance use for pain control ETOH use chronic anemia mild GERD Lines : 01/15- RIGHT port placement planned , (Central Line Necessity Reviewed) Licea: chronic licea OG: Nutrition: po Analgesia: Anxiety/ delirium VTE Prophylaxis: marjan Stress Ulcer Prophylaxis: ppi Plans in collaboration with bedside consultants and IM MDs. Discussed with RN to reach out if any questions or concerns Case and care daily discussed on multidisciplinary rounds ( RN, PharmD, Steak Tenderizer Machine , Respiratory Therapy, latex foam worker ) A total of 20 minutes of critical care time was devoted to this patient today, required to treat and/or prevent further deterioration of critical care condit ion ( as above ) . I am remotely monitoring this patient from another state. I am unable to do the bedside exam, and history/physical and pertinent information is taken from other notes in the computer and bedside staff. Sepsis Event Evaluation Height, Weight, BMI Height: 5'8.00" Weight: 170lbs. 8.0oz. 77.129075hs; 40.26 BMI Method:Stated Exam Exam Patient acknowledged, consented, and participated in this virtual visit which was conducted using real time audio/video Vital Signs Date Time Temp Pulse Resp B/P (MAP) Pulse Ox O2 Delivery O2 Flow Rate FiO2 01/16/23 10:00 65 12 157/88 (111) 95 OxyMask 1.00 01/16/23 09:00 68 10 153/88 (109) 93 OxyMask 1.00 01/16/23 08:00 69 17 166/103 (124) 90 OxyMask 1.00 01/16/23 07:46 36.0 01/16/23 07:00 73 11 144/83 (103) 100 OxyMask 1.00 01/16/23 07:00 66 01/16/23 06:57 36.6 53 97 01/16/23 06:54 97 OxyMask 5.00 01/16/23 06:00 53 24 171/130 (144) 99 OxyMask 1.00 01/16/23 05:00 70 24 153/83 (106) 99 OxyMask 1.00 01/16/23 04:00 98 OxyMask 1.00 01/16/23 04:00 76 13 138/80 (99) 97 OxyMask 1.00 01/16/23 03:00 73 26 139/92 (108) 98 OxyMask 1.00 01/16/23 02:48 97 OxyMask 3.00 01/16/23 02:00 99 14 157/99 (118) 95 OxyMask 1.00 01/16/23 01:00 99 10 161/91 (114) 100 OxyMask 1.00 01/16/23 01:00 100 01/16/23 00:00 97 OxyMask 1.00 01/16/23 00:00 92 11 141/84 (103) 97 OxyMask 1.00 01/15/23 23:00 95 19 160/87 (111) 99 OxyMask 1.00 01/15/23 22:00 91 24 142/105 (117) 96 OxyMask 1.00 01/15/23 21:45 94 Room Air 01/15/23 21:00 96 11 147/86 (106) 94 OxyMask 1.00 01/15/23 20:00 67 27 146/85 (105) 96 OxyMask 1.00 01/15/23 20:00 98 OxyMask 1.00 01/15/23 19:50 36.6 01/15/23 19:02 100 OxyMask 1.00 01/15/23 19:00 75 01/15/23 19:00 80 17 153/92 (112) 99 OxyMask 1.00 01/15/23 18:00 64 13 139/76 (97) 96 OxyMask 1.00 01/15/23 17:00 86 17 93 OxyMask 1.00 01/15/23 16:00 64 11 141/80 (100) 98 OxyMask 1.00 01/15/23 16:00 97 OxyMask 1.00 01/15/23 15:25 OxyMask 1.00 01/15/23 15:20 36.3 20 145/78 (100) 96 OxyMask 1.00 01/15/23 15:15 OxyMask 1.00 01/15/23 15:10 20 135/72 (93) 97 OxyMask 1.00 01/15/23 15:00 20 124/66 (85) 97 OxyMask 1.00 01/15/23 15:00 OxyMask 1.00 01/15/23 15:00 75 11 138/76 (96) 91 OxyMask 1.00 01/15/23 14:50 20 124/66 (85) 97 OxyMask 1.00 01/15/23 14:48 OxyMask 3.00 01/15/23 14:48 36.3 20 134/73 (93) 99 OxyMask 3.00 01/15/23 13:00 72 11 125/72 (89) 99 OxyMask 1.00 01/15/23 12:49 64 01/15/23 12:21 100 OxyMask 1.00 01/15/23 12:00 70 8 126/68 (87) 100 OxyMask 1.00 01/15/23 11:02 OxyMask 1.00 01/15/23 11:00 73 22 125/65 (85) 100 OxyMask 5.00 I & O 01/16/23 07:00 Intake Total 820 ml Output Total 925 ml Balance -105 ml Height & Weight Height: 5'8.00" Weight: 170lbs. 8.0oz. 77.567260vg; 40.26 BMI Method:Stated General Appearance: Mild Distress, Obese HEENT: PERRL/EOMI, Pharynx Normal Neck: Full Range of Motion, Normal Inspection, Non Tender, Supple Respiratory: Crackles, Wheezing, Other (Coarse/wheezing throughout.) Cardiovascular: Regular Rate, Rhythm, No Murmur Capillary Refill: Less Than 3 Seconds Extremity: Non Tender, No Calf Tenderness, Pedal Edema (+2-3 pitting edema mids hins.) Neurologic/Psychiatric: Alert, Oriented x3 Skin: Normal Color, Warm/Dry Lymphatic: No Adenopathy Results Lab Laboratory Tests 01/14/23 11:30 01/15/23 03:55 01/16/23 03:19 Assessment/Plan Assessment/Plan 1 CHRISTI MURRAY MD Jan 16, 2023 10:49
[2023-01-16] MEDS: LOSARTAN 25 MG (COZAAR) TAB PO SCH (10:58)
[2023-01-16 15:55] VITALS: BP 142/66
[2023-01-16 19:30] VITALS: BP 145/67
[2023-01-16] MEDS: polyethylene glycoL POWDER 17 GM (MIRALAX) PACK PO SCH (21:37)
[2023-01-17 00:01] VITALS: BP 143/67
[2023-01-17] MEDS: RT-ALBUTEROL/IPRATROPIUM 3 ML (DUONEB) VIAL INH SCH ×4 (02:50→21:15)
[2023-01-17 03:45] VITALS: BP 134/58
[2023-01-17] MEDS: CEFEPIME 1,000 MG/NS 50 ML IVPB IV SCH ×6 (03:58→16:52)
[2023-01-17] MEDS: methylPREDNISolone 40 MG/ML (Solu-MEDROL) VIAL IV SCH ×3 (05:13→16:53)
[2023-01-17] MEDS: CATHETER FLUSH 10 ML SYR IVP SCH ×3 (05:14→21:11)
[2023-01-17] MEDS: PANTOPRAZOLE 40 MG (PROTONIX) TAB PO SCH (05:14)
[2023-01-17] MEDS: inSUlin ASPART (NovoLOG) 1 UNIT/0.01 ML (CHARGE PER UNIT) SC SCH ×4 (05:19→20:51)
--- NOTE | 2023-01-17 05:31 | Progress Note - Hospitalist ---
Subjective HPI/CC On Admission Date Seen by Provider: Jan 17, 2023 Time Seen by Provider: 11:00 CC: PNA HPI: This is a 72yoWM clinic patient of [facility] with multiple recurrent hospital stays every week who presents from [place] with increased work of breathing. IV abx initiated. Dr Trevino saw the patient and recommended Pulmo consult so I updated pulmonology. PICC line being placed due to poor vascular access. Surgery consulted and will be placing port on 01/15. Patient appears to be more declined each time he comes to hospital. Pain meds initiated. Subjective/Events-last exam No major issues Lasix ordered Coarse BS Needs Nebs so I ordered BM+ Review of Systems General: Fatigue, Malaise Objective Exam Vital Signs Vital Signs Date Time Temp Pulse Resp B/P (MAP) Pulse Ox O2 Delivery O2 Flow Rate FiO2 01/17/23 15:58 36.7 72 16 140/93 (109) 93 Room Air 01/17/23 14:39 5.00 01/13/23 01:42 32 Capillary Refill : Less Than 3 SecondsLess Than 3 Seconds General Appearance: No Apparent Distress, WD/WN, Chronically ill Respiratory: Crackles, Decreased Breath Sounds, Wheezing Cardiovascular: Regular Rate, Rhythm Results/Procedures Lab Laboratory Tests 01/17/23 05:20 Patient resulted labs reviewed. Imaging: Reviewed Imaging Films, Reviewed Imaging Report Assessment/Plan Assessment and Plan Assess & Plan/Chief Complaint Assess & Plan/Chief Complaint Acute on chronic respiratory failure requiring transfer to ICU 01/14/23 AECOPD PNA Diarrhea - Unknown Etiology Hyperglycemia Coronary Artery Disease Dual Chamber Pacemaker Placement Debility/Self-care Deficit HTN Anemia - Unknown Etiology HLD GERD Plan: IV abx Home meds Move to 4th BiPAP CXR Nebs Critical Care Critically Ill Patient Clinical Quality Measures AMI/AHF: ASA po Prior to arrival: ZOHREH Cordero DO Jan 17, 2023 05:31
[2023-01-17 05:36] LABS: BASOPHILS % (AUTO) 0 % (0-10); EOSINOPHILS % (AUTO) 0 % (0-10); HEMATOCRIT 30 % (40-54); HEMOGLOBIN 10.1 g/dL (13.3-17.7); LYMPHOCYTES # (AUTO) 0.4 10^3/uL (1.0-4.0); LYMPHOCYTES % (AUTO) 2 % (12-44); MEAN CORPUSCULAR HEMOGLOBIN 31 pg (25-34); MEAN CORPUSCULAR HGB CONC 34 g/dL (32-36); MEAN CORPUSCULAR VOLUME 94 fL (80-99); MONOCYTES # (AUTO) 0.6 10^3/uL (0.0-1.0); MONOCYTES % (AUTO) 4 % (0-12); NEUTROPHILS # (AUTO) 16.8 10^3/uL (1.8-7.8); NEUTROPHILS % (AUTO) 93 % (42-75); PLATELET COUNT 294 10^3/uL (130-400); WHITE BLOOD COUNT 18.1 10^3/uL (4.3-11.0)
[2023-01-17 05:38] LABS: ALBUMIN 2.7 GM/DL (3.2-4.5); POTASSIUM 4.4 MMOL/L (3.6-5.0)
[2023-01-17 05:42] LABS: BILIRUBIN,TOTAL 0.4 MG/DL (0.1-1.0)
[2023-01-17 05:44] LABS: CREATININE SERUM 1.08 MG/DL (0.60-1.30)
[2023-01-17 05:47] LABS: MAGNESIUM 1.8 MG/DL (1.6-2.4)
[2023-01-17 07:09] VITALS: BP 181/79
[2023-01-17] MEDS: BETHANECHOL 10 MG (URECHOLINE) TAB PO SCH ×2 (08:26→21:10)
[2023-01-17] MEDS: meTOproloL SUCCINATE 50 MG (TOPROL XL) TAB PO SCH (08:26)
[2023-01-17] MEDS: ASPIRIN E.C. 81 MG (ECOTRIN) TAB PO SCH (08:26)
[2023-01-17] MEDS: RT--FLUTICASONE/SALMETEROL 232-14 (AIRDUO RespiCLICK) IH SCH ×2 (08:26→21:16)
[2023-01-17] MEDS: ENOXAPARIN 40 MG/0.4 ML (LOVENOX) SYR SC SCH ×2 (08:26→21:10)
[2023-01-17] MEDS: GABAPENTIN 300 MG (NEURONTIN) CAP PO SCH ×3 (08:26→21:10)
[2023-01-17] MEDS: LOSARTAN 25 MG (COZAAR) TAB PO SCH (08:26)
[2023-01-17] MEDS: RANOLAZINE ER 500 MG TAB (RANEXA) PO SCH ×2 (08:35→21:10)
[2023-01-17] MEDS: morphine INJ 4 MG/ML 1 ML (VIAL/SYRINGE) IV PRN ×2 (08:36→19:26)
[2023-01-17 11:18] VITALS: BP 155/72
--- NOTE | 2023-01-17 11:25 | Cardiology Progress Note ---
Subjective Date Seen by Provider: Jan 17, 2023 Time Seen by Provider: 11:23 Subjective/Events-last exam Patient was seen at bedside, laying down comfortably, complaining of worsening dyspnea and wheezing today Review of Systems General: No Chills, No Night Sweats; Fatigue, Malaise; No Appetite, No Other HEENT: No Head Aches, No Visual Changes, No Eye Pain, No Ear Pain, No Dysphasia, No Sinus Congestion, No Post Nasal Drip, No Sore Throat, No Other Pulmonary: Dyspnea; No Cough, No Pleuritic Chest Pain, No Other Cardiovascular: No: Chest Pain, Palpitations, Orthopnea, Paroxysmal Noc. Dyspnea, Edema, Lt Headedness, Other Objective-Cardiology Exam Last Set of Vital Signs Vital Signs 01/13/23 01/17/23 01:42 11:18 Temp 36.1 Pulse 72 Resp 20 B/P (MAP) 155/72 (99) Pulse Ox 90 O2 Delivery OxyMask O2 Flow Rate 5.00 FiO2 32 I&O Intake and Output 01/17/23 00:00 Intake Total 1837 ml Output Total 875 ml Balance 962 ml Intake Oral 1837 ml Output Urine Total 875 ml General: Alert, Oriented X3, Cooperative HEENT: Atraumatic, PERRLA Neck: Supple, No JVD Lungs: Other (bilat wheezing and rhonchi) Heart: Regular Rate, Normal S1, Normal S2 Abdomen: Normal Bowel Sounds, Soft Extremities: No Clubbing, No Cyanosis, No Edema Skin: No Rashes Neuro: Normal Speech Psych/Mental Status: Mental Status NL, Mood NL Results Lab Laboratory Tests 01/17/23 05:20 A/P-Cardiology Admission Diagnosis Pneumonia Chest pain CAD HLP Assessment/Plan Status post acute respiratory failure, improving Receiving bronchodilators and antibiotic Mildly hypoxemic but overall improving This morning appears to have more wheezing and shortness of breath Received Lasix 40 mg IV today Continue to monitor response Pneumonia, management per medical services Pulmonary consultation appreciated, recommendation was made using long-term antibiotics as an outpatient Aggressive bronchodilators and slow tapering steroid dose Chest pain, nonspecific etiology, EKG showing paced rhythm with no acute ST changes. Has mildly elevated troponin, which has been chronically mildly elevated since Jul 2022. Type II myocardial infarction secondary to small vessel disease. Chest pain likely d/t known small vessel disease. Conservative management is recommended, no intervention is warranted Continue to monitor Labile blood pressure, history of noncompliance, educated about the importance of compliance with medications at home Poor control Continue on Toprol 50 mg daily and increase losartan to 50 mg daily Monitor blood pressure History of alcohol intoxication, history of alcoholism and polysubstance abuse. Managed by medical team Coronary artery disease, cardiac catheterization carried out in 2012 and 2014 with diffuse atherosclerotic plaques. Nonobstructive disease. Cardiac catheterization was carried out by Dr. Houser on August 26, 2022 with nonobstructive coronary artery disease. iFR was done through the circumflex artery. Review of his cardiac catheterization film showed calcification in the left main and the proximal LAD with mild to moderate disease, 50% stenosis in the mid circumflex artery with IFR 0.97. Small vessel disease distally, dominant circumflex artery. 2D echo done on Dec 22, 2022 with mild concentric hypertrophy. Ejection fraction 60-65%, grade 2 diastolic dysfunction, biatrial enlargement Hyperlipidemia, monitor lipids History of dual-chamber pacemaker due to sinus node dysfunction, he has history of sinus pause for 3.2 second. Most recent interrogation done October 2022 showing good sensing and capturing. Continue to monitor History of avascular necrosis of the hip, underwent multiple hip surgeries in the past and hip replacements. History of gastroesophageal reflux disease, COPD. Polysubstance use for pain control Previous history of tobaccoism SKYLA SQUIRES MD Jan 17, 2023 11:25
[2023-01-17] MEDS ORDERED: LOSARTAN 25 MG (COZAAR) TAB PO NR (11:45)
[2023-01-17] MEDS ORDERED: FUROSEMIDE 40 MG/4 ML INJ (LASIX) IVP NR (11:45)
[2023-01-17 15:58] VITALS: BP 140/93
[2023-01-17 19:42] VITALS: BP 127/71
[2023-01-17] MEDS: polyethylene glycoL POWDER 17 GM (MIRALAX) PACK PO SCH (21:11)
[2023-01-18] VITALS: BP 135/75
[2023-01-18] MEDS: methylPREDNISolone 40 MG/ML (Solu-MEDROL) VIAL IV SCH ×4 (00:31→20:00)
[2023-01-18 03:00] VITALS: BP 121/68
[2023-01-18] MEDS: morphine INJ 4 MG/ML 1 ML (VIAL/SYRINGE) IV PRN ×3 (04:14→21:52)
[2023-01-18 04:27] LABS: BASOPHILS % (AUTO) 0 % (0-10); EOSINOPHILS % (AUTO) 0 % (0-10); HEMATOCRIT 32 % (40-54); HEMOGLOBIN 10.8 g/dL (13.3-17.7); LYMPHOCYTES # (AUTO) 0.4 10^3/uL (1.0-4.0); LYMPHOCYTES % (AUTO) 2 % (12-44); MEAN CORPUSCULAR HEMOGLOBIN 31 pg (25-34); MEAN CORPUSCULAR HGB CONC 34 g/dL (32-36); MEAN CORPUSCULAR VOLUME 93 fL (80-99); MEAN PLATELET VOLUME 10.8 fL (9.0-12.2); MONOCYTES # (AUTO) 0.5 10^3/uL (0.0-1.0); MONOCYTES % (AUTO) 3 % (0-12); NEUTROPHILS # (AUTO) 16.9 10^3/uL (1.8-7.8); NEUTROPHILS % (AUTO) 94 % (42-75); PLATELET COUNT 302 10^3/uL (130-400)
[2023-01-18 04:34] LABS: ALBUMIN 2.8 GM/DL (3.2-4.5); POTASSIUM 3.8 MMOL/L (3.6-5.0)
[2023-01-18 04:37] LABS: TOTAL PROTEIN 5.1 GM/DL (6.4-8.2)
[2023-01-18 04:38] LABS: BILIRUBIN,TOTAL 0.4 MG/DL (0.1-1.0)
[2023-01-18 04:40] LABS: CREATININE SERUM 1.18 MG/DL (0.60-1.30)
[2023-01-18 04:43] LABS: MAGNESIUM 1.6 MG/DL (1.6-2.4)
[2023-01-18] MEDS: inSUlin ASPART (NovoLOG) 1 UNIT/0.01 ML (CHARGE PER UNIT) SC SCH ×4 (04:46→20:32)
--- NOTE | 2023-01-18 05:37 | Progress Note - Hospitalist ---
Subjective HPI/CC On Admission Date Seen by Provider: Jan 18, 2023 Time Seen by Provider: 08:30 CC: PNA HPI: This is a 72yoWM clinic patient of [facility] with multiple recurrent hospital stays every week who presents from [place] with increased work of breathing. IV abx initiated. Dr Trevino saw the patient and recommended Pulmo consult so I updated pulmonology. PICC line being placed due to poor vascular access. Surgery consulted and will be placing port on 01/15. Patient appears to be more declined each time he comes to hospital. Pain meds initiated. Subjective/Events-last exam No major changes Wheezing noted and has not cleared this hospital stay I spoke to him about the end stage level of his COPD and the possibility of respiratory failure the worse it gets and talked about ventilator and PEG and trach and he wants to proceed on with those aggressive interventions if he would need them although his prognosis is poor and I did tell him this fact Review of Systems General: Fatigue, Malaise Pulmonary: Dyspnea Objective Exam Vital Signs Vital Signs Date Time Temp Pulse Resp B/P (MAP) Pulse Ox O2 Delivery O2 Flow Rate FiO2 01/18/23 11:29 36.5 79 20 172/80 (110) 91 OxyMask 5.00 01/13/23 01:42 32 Capillary Refill : Less Than 3 SecondsLess Than 3 Seconds General Appearance: No Apparent Distress, WD/WN, Chronically ill Respiratory: No Accessory Muscle Use, No Respiratory Distress, Crackles, Decreased Breath Sounds, Wheezing Cardiovascular: Regular Rate, Rhythm Neurologic/Psychiatric: Alert, Oriented x3 Results/Procedures Lab Laboratory Tests 01/18/23 04:18 Patient resulted labs reviewed. Imaging: Reviewed Imaging Films, Reviewed Imaging Report Assessment/Plan Assessment and Plan Assess & Plan/Chief Complaint Assess & Plan/Chief Complaint Acute on chronic respiratory failure requiring transfer to ICU 01/14/23 AECOPD PNA Diarrhea - Unknown Etiology Hyperglycemia Coronary Artery Disease Dual Chamber Pacemaker Placement Debility/Self-care Deficit HTN Anemia - Unknown Etiology HLD GERD Plan: IV abx Home meds Move to 4th BiPAP CXR Nebs Critical Care Critically Ill Patient Clinical Quality Measures AMI/AHF: ASA po Prior to arrival: ZOHREH Cordero DO Jan 18, 2023 05:37
[2023-01-18] MEDS: PANTOPRAZOLE 40 MG (PROTONIX) TAB PO SCH (05:47)
[2023-01-18] MEDS: CATHETER FLUSH 10 ML SYR IVP SCH ×3 (05:48→21:52)
[2023-01-18] MEDS: RT--FLUTICASONE/SALMETEROL 232-14 (AIRDUO RespiCLICK) IH SCH ×2 (06:57→20:17)
[2023-01-18] MEDS: RT-ALBUTEROL/IPRATROPIUM 3 ML (DUONEB) VIAL INH SCH ×3 (06:58→20:17)
[2023-01-18 07:34] VITALS: BP 145/78
[2023-01-18] MEDS: ENOXAPARIN 40 MG/0.4 ML (LOVENOX) SYR SC SCH ×2 (09:09→20:00)
[2023-01-18] MEDS: BETHANECHOL 10 MG (URECHOLINE) TAB PO SCH ×2 (09:12→20:00)
[2023-01-18] MEDS: LOSARTAN 50 MG (COZAAR) TAB PO SCH (09:12)
[2023-01-18] MEDS: meTOproloL SUCCINATE 50 MG (TOPROL XL) TAB PO SCH (09:12)
[2023-01-18] MEDS: RANOLAZINE ER 500 MG TAB (RANEXA) PO SCH ×2 (09:12→20:00)
[2023-01-18] MEDS: GABAPENTIN 300 MG (NEURONTIN) CAP PO SCH ×3 (09:12→20:00)
[2023-01-18] MEDS: ASPIRIN E.C. 81 MG (ECOTRIN) TAB PO SCH (09:12)
[2023-01-18 11:29] VITALS: BP 172/80
--- NOTE | 2023-01-18 11:34 | Cardiology Progress Note ---
Subjective Date Seen by Provider: Jan 18, 2023 Time Seen by Provider: 11:33 Subjective/Events-last exam Patient was seen and evaluated at bedside, laying down comfortably still having worsening dyspnea, actively wheezing Review of Systems General: No Chills, No Night Sweats; Fatigue; No Malaise, No Appetite, No Other HEENT: No Head Aches, No Visual Changes, No Eye Pain, No Ear Pain, No Dysphasia, No Sinus Congestion, No Post Nasal Drip, No Sore Throat, No Other Pulmonary: Dyspnea; No Cough, No Pleuritic Chest Pain, No Other Cardiovascular: No: Chest Pain, Palpitations, Orthopnea, Paroxysmal Noc. Dyspnea, Edema, Lt Headedness, Other Objective-Cardiology Exam Last Set of Vital Signs Vital Signs 01/13/23 01/18/23 01/18/23 01:42 07:34 09:00 Temp 36.4 Pulse 79 Resp 20 B/P (MAP) 145/78 (100) Pulse Ox 97 O2 Delivery OxyMask O2 Flow Rate 4.00 FiO2 32 I&O Intake and Output 01/18/23 00:00 Intake Total 2360 ml Output Total 2775 ml Balance -415 ml Intake Oral 2260 ml IV Total 100 ml Output Urine Total 2775 ml General: Alert, Oriented X3, Cooperative HEENT: Atraumatic, PERRLA Neck: Supple, No JVD Lungs: Other (bilat wheezing and rhonchi) Heart: Regular Rate, Normal S1, Normal S2 Abdomen: Normal Bowel Sounds, Soft Extremities: No Clubbing, No Cyanosis, No Edema Skin: No Rashes Neuro: Normal Speech Psych/Mental Status: Mental Status NL, Mood NL Results Lab Laboratory Tests 01/18/23 04:18 A/P-Cardiology Admission Diagnosis Pneumonia Chest pain CAD HLP Assessment/Plan Status post acute respiratory failure, improving Receiving bronchodilators and antibiotic Mildly hypoxemic but overall improving Patient is still having significant wheezing I will use daily Lasix and evaluate tolerance and response Pneumonia, management per medical services Pulmonary consultation appreciated, recommendation was made using long-term antibiotics as an outpatient Aggressive bronchodilators and slow tapering steroid dose Chest pain, nonspecific etiology, EKG showing paced rhythm with no acute ST changes. Has mildly elevated troponin, which has been chronically mildly elevated since Jul 2022. Type II myocardial infarction secondary to small vessel disease. Chest pain likely d/t known small vessel disease. Conservative management is recommended, no intervention is warranted Continue to monitor Labile blood pressure, history of noncompliance, educated about the importance of compliance with medications at home Poor control Continue on Toprol 50 mg daily and increase losartan to 50 mg daily Monitor blood pressure History of alcohol intoxication, history of alcoholism and polysubstance abuse. Managed by medical team Coronary artery disease, cardiac catheterization carried out in 2012 and 2014 with diffuse atherosclerotic plaques. Nonobstructive disease. Cardiac catheterization was carried out by Dr. Houser on August 26, 2022 with nonobstructive coronary artery disease. iFR was done through the circumflex artery. Review of his cardiac catheterization film showed calcification in the left main and the proximal LAD with mild to moderate disease, 50% stenosis in the mid circumflex artery with IFR 0.97. Small vessel disease distally, dominant circumflex artery. 2D echo done on Dec 22, 2022 with mild concentric hypertrophy. Ejection fraction 60-65%, grade 2 diastolic dysfunction, biatrial enlargement Hyperlipidemia, monitor lipids History of dual-chamber pacemaker due to sinus node dysfunction, he has history of sinus pause for 3.2 second. Most recent interrogation done October 2022 showing good sensing and capturing. Continue to monitor History of avascular necrosis of the hip, underwent multiple hip surgeries in the past and hip replacements. History of gastroesophageal reflux disease, COPD. Polysubstance use for pain control Previous history of tobaccoism SKYLA SQUIRES MD Jan 18, 2023 11:34
[2023-01-18] MEDS ORDERED: FUROSEMIDE 40 MG/4 ML INJ (LASIX) IVP NR (11:45)
[2023-01-18 15:48] VITALS: BP 136/64
[2023-01-18] MEDS: polyethylene glycoL POWDER 17 GM (MIRALAX) PACK PO SCH (19:21)
[2023-01-18 19:36] VITALS: BP 131/81
[2023-01-19 00:12] VITALS: BP_SYST 131; BP_SYST 139; BP_DIAS 80; BP_DIAS 81
[2023-01-19] MEDS: morphine INJ 4 MG/ML 1 ML (VIAL/SYRINGE) IV PRN ×2 (03:12→23:24)
[2023-01-19 04:00] VITALS: BP 125/76
[2023-01-19] MEDS: CATHETER FLUSH 10 ML SYR IVP SCH ×3 (05:17→21:00)
[2023-01-19] MEDS: PANTOPRAZOLE 40 MG (PROTONIX) TAB PO SCH (05:17)
[2023-01-19 05:44] LABS: BASOPHILS % (AUTO) 0 % (0-10); EOSINOPHILS % (AUTO) 0 % (0-10); HEMATOCRIT 35 % (40-54); HEMOGLOBIN 11.9 g/dL (13.3-17.7); LYMPHOCYTES # (AUTO) 0.4 10^3/uL (1.0-4.0); LYMPHOCYTES % (AUTO) 2 % (12-44); MEAN CORPUSCULAR HEMOGLOBIN 31 pg (25-34); MEAN CORPUSCULAR HGB CONC 34 g/dL (32-36); MEAN CORPUSCULAR VOLUME 92 fL (80-99); MONOCYTES # (AUTO) 0.7 10^3/uL (0.0-1.0); MONOCYTES % (AUTO) 3 % (0-12); NEUTROPHILS # (AUTO) 22.3 10^3/uL (1.8-7.8); NEUTROPHILS % (AUTO) 94 % (42-75); PLATELET COUNT 279 10^3/uL (130-400); WHITE BLOOD COUNT 23.7 10^3/uL (4.3-11.0)
[2023-01-19 05:49] LABS: ALBUMIN 2.8 GM/DL (3.2-4.5); POTASSIUM 4.2 MMOL/L (3.6-5.0)
[2023-01-19 05:51] LABS: CALCIUM 9.1 MG/DL (8.5-10.1)
[2023-01-19 05:52] LABS: TOTAL PROTEIN 5.2 GM/DL (6.4-8.2)
[2023-01-19] MEDS: inSUlin ASPART (NovoLOG) 1 UNIT/0.01 ML (CHARGE PER UNIT) SC SCH ×4 (05:53→20:58)
[2023-01-19 05:54] LABS: BILIRUBIN,TOTAL 0.4 MG/DL (0.1-1.0)
[2023-01-19 05:56] LABS: CREATININE SERUM 1.16 MG/DL (0.60-1.30)
[2023-01-19 05:59] LABS: MAGNESIUM 1.6 MG/DL (1.6-2.4)
[2023-01-19 06:24] LABS: MONOCYTES % (MANUAL) 2 %; NEUTROPHILS % (MANUAL) 98 %; TOXIC GRANULATION/VACUOLAZATIO 1+
[2023-01-19 07:36] VITALS: BP 144/85
[2023-01-19] MEDS: RT--FLUTICASONE/SALMETEROL 232-14 (AIRDUO RespiCLICK) IH SCH ×2 (07:49→21:34)
[2023-01-19] MEDS: RT-ALBUTEROL/IPRATROPIUM 3 ML (DUONEB) VIAL INH SCH ×3 (07:49→21:35)
--- NOTE | 2023-01-19 08:01 | Cardiology Progress Note ---
Subjective Date Seen by Provider: Jan 19, 2023 Time Seen by Provider: 08:00 Subjective/Events-last exam Patient was seen at bedside, laying down comfortably, feeling better today. Review of Systems General: No Chills, No Night Sweats; Fatigue, Malaise; No Appetite, No Other HEENT: No Head Aches, No Visual Changes, No Eye Pain, No Ear Pain, No Dysphasia, No Sinus Congestion, No Post Nasal Drip, No Sore Throat, No Other Pulmonary: Dyspnea; No Cough, No Pleuritic Chest Pain, No Other Cardiovascular: No: Chest Pain, Palpitations, Orthopnea, Paroxysmal Noc. Dyspnea, Edema, Lt Headedness, Other Objective-Cardiology Exam Last Set of Vital Signs Vital Signs 01/13/23 01/19/23 01/19/23 01/19/23 01:42 07:36 07:49 07:53 Temp 36.1 Pulse 75 Resp 18 B/P (MAP) 144/85 (104) Pulse Ox 93 O2 Delivery OxyMask O2 Flow Rate 5.00 FiO2 32 I&O Intake and Output 01/19/23 00:00 Intake Total 2680 ml Output Total 2400 ml Balance 280 ml Intake Oral 2680 ml Output Urine Total 2400 ml # Voids 2 # Bowel Movements 2 General: Alert, Oriented X3, Cooperative HEENT: Atraumatic, PERRLA Neck: Supple, No JVD Lungs: Other (bilat wheezing and rhonchi) Heart: Regular Rate, Normal S1, Normal S2 Abdomen: Normal Bowel Sounds, Soft Extremities: No Clubbing, No Cyanosis, No Edema Skin: No Rashes Neuro: Normal Speech Psych/Mental Status: Mental Status NL, Mood NL Results Lab Laboratory Tests 01/19/23 05:15 A/P-Cardiology Admission Diagnosis Pneumonia Chest pain CAD HLP Assessment/Plan Status post acute respiratory failure, improving Receiving bronchodilators and antibiotic Mildly hypoxemic but overall improving Patient is still having significant wheezing Currently on Solu-Medrol and IV Lasix Continue to monitor Pneumonia, management per medical services Pulmonary consultation appreciated, recommendation was made using long-term antibiotics as an outpatient Aggressive bronchodilators and slow tapering steroid dose Chest pain, nonspecific etiology, EKG showing paced rhythm with no acute ST changes. Has mildly elevated troponin, which has been chronically mildly elevated since Jul 2022. Type II myocardial infarction secondary to small vessel disease. Chest pain likely d/t known small vessel disease. Conservative management is recommended, no intervention is warranted Continue to monitor Labile blood pressure, history of noncompliance, educated about the importance of compliance with medications at home Poor control, probably worsened by the aggressive steroid use Continue on Toprol 50 mg daily and increase losartan to 50 mg daily Monitor blood pressure History of alcohol intoxication, history of alcoholism and polysubstance abuse. Managed by medical team Coronary artery disease, cardiac catheterization carried out in 2012 and 2014 with diffuse atherosclerotic plaques. Nonobstructive disease. Cardiac catheterization was carried out by Dr. Houser on August 26, 2022 with nonobstructive coronary artery disease. iFR was done through the circumflex artery. Review of his cardiac catheterization film showed calcification in the left main and the proximal LAD with mild to moderate disease, 50% stenosis in the mid circumflex artery with IFR 0.97. Small vessel disease distally, dominant circumflex artery. 2D echo done on Dec 22, 2022 with mild concentric hypertrophy. Ejection fraction 60-65%, grade 2 diastolic dysfunction, biatrial enlargement Hyperlipidemia, monitor lipids History of dual-chamber pacemaker due to sinus node dysfunction, he has history of sinus pause for 3.2 second. Most recent interrogation done October 2022 showing good sensing and capturing. Continue to monitor History of avascular necrosis of the hip, underwent multiple hip surgeries in the past and hip replacements. History of gastroesophageal reflux disease, COPD. Polysubstance use for pain control Previous history of tobaccoism SKYLA SQUIRES MD Jan 19, 2023 08:01
[2023-01-19] MEDS: methylPREDNISolone 40 MG/ML (Solu-MEDROL) VIAL IV SCH ×2 (08:10→20:58)
[2023-01-19] MEDS: ENOXAPARIN 40 MG/0.4 ML (LOVENOX) SYR SC SCH ×2 (08:13→20:58)
[2023-01-19] MEDS: RANOLAZINE ER 500 MG TAB (RANEXA) PO SCH ×2 (08:14→20:58)
[2023-01-19] MEDS: GABAPENTIN 300 MG (NEURONTIN) CAP PO SCH ×3 (08:14→20:58)
[2023-01-19] MEDS: ASPIRIN E.C. 81 MG (ECOTRIN) TAB PO SCH (08:14)
[2023-01-19] MEDS: meTOproloL SUCCINATE 50 MG (TOPROL XL) TAB PO SCH (08:15)
[2023-01-19] MEDS: FUROSEMIDE 40 MG (LASIX) TAB PO SCH (08:15)
[2023-01-19] MEDS: BETHANECHOL 10 MG (URECHOLINE) TAB PO SCH ×2 (08:15→20:58)
[2023-01-19] MEDS: LOSARTAN 50 MG (COZAAR) TAB PO SCH (08:15)
[2023-01-19 11:17] VITALS: BP 139/83
--- NOTE | 2023-01-19 11:54 | Progress Note - Hospitalist ---
DIANDRA COSTELLO 01/19/23 1154: Subjective HPI/CC On Admission Date Seen by Provider: Jan 19, 2023 Time Seen by Provider: 08:20 CC: SULLY HPI: This is a 72yoWM clinic patient of [facility] with multiple recurrent hospital stays every week who presents from [place] with increased work of breathing. IV abx initiated. Dr Trevino saw the patient and recommended Pulmo consult so I updated pulmonology. PICC line being placed due to poor vascular access. Surgery consulted and will be placing port on 01/15. Patient appears to be more declined each time he comes to hospital. Pain meds initiated. Subjective/Events-last exam Hospital Course 72 year old male who was hospitalized at [facility] from 01/12 - 01/19 for Acute respiratory failure secondary for AECOPD and Pneumonia. He presneted to the ED on 01/12 for increased work of breathing, right sided CP, and jaw pain who was found to be hypertensive at 209/95 w/ elevated troponin of 0.14, hyperkalemia at 5.4 and leukocytosis of 18.7. He was already on a prednisone taper at that point from previous respiratory hospital visit. He was admitted fo r acute COPD exacerbation, hypertensive urgency, and elevated troponin. During his hospital course, his elevated troponin was deamed to be a type 2 NSTEMI by cardiology. He was treated both on the medical floor as well as a brief stay in the ICU for worsening respiratory function and increased CO2 trapping despite metabolic alkalosis secondary to diarrhea/vomiting. He did have a PICC line placed on 01/15 for easier distribution of medications. He was determined to possibly have hospital acquired pneumonia and was treated with a course of vanc and cefepime. He was also treated with nebulizer treatments and high-dose steroids for an acute COPD exacerbation. During his stay, the patient did not need additional respiratory support other than nasal canula or Oxymask. He did not develop a respiratory acidosis requiring BiPAP support. By 01/19 Pt. was back to baseline oxygen requirements, his potassium had corrected, and his leukocytosis was improving although still mildly high likely secondary to steroids. His CP had resolved and he was feeling back to his normal baseline. 01/19/23 Pt. was awake sitting in bed eating breakfast when seen by me. He was alert and oriented and on 4L 02 oxy mask. He is on 4L O2 at baseline at home. He is eating and drinking well and has good urine output. He has not been up ambulating but reports using motorized scooter for mobility at home. When asked how he feels compared to his baseline when at home he reports feeling the same. He denies headache, CP, abd pain, N/V/D. He reports minimal SOB and mild cough. Review of Systems General: No Chills, No Fatigue HEENT: No Head Aches Pulmonary: Dyspnea (chronic), Cough (mild) Cardiovascular: No: Chest Pain, Palpitations Gastrointestinal: No: Nausea, Vomiting, Abdominal Pain, Constipation Neurological: Other (chronic debilitation) Objective Exam Vital Signs Vital Signs Date Time Temp Pulse Resp B/P (MAP) Pulse Ox O2 Delivery O2 Flow Rate FiO2 01/19/23 11:17 36.2 77 18 139/83 (101) 94 OxyMask 5.00 01/13/23 01:42 32 Capillary Refill : Less Than 3 SecondsLess Than 3 Seconds General Appearance: No Apparent Distress, WD/WN HEENT: PERRL/EOMI, Moist Mucous Membranes Respiratory: Rhonci, Wheezing Cardiovascular: Regular Rate, Rhythm, No Murmur, Normal Peripheral Pulses Gastrointestinal: Normal Bowel Sounds, Non Tender, Soft Extremity: Normal Capillary Refill, Non Tender, No Calf Tenderness, Swelling (2+ pitting edema legs bilaterally) Neurologic/Psychiatric: Alert, Oriented x3, Normal Mood/Affect Skin: Normal Color, Warm/Dry Lymphatic: No Adenopathy Results/Procedures Lab Laboratory Tests 01/19/23 05:15 Patient resulted labs reviewed. Imaging: Reviewed Imaging Films, Reviewed Imaging Report Assessment/Plan Assessment and Plan Assess & Plan/Chief Complaint Acute on Chronic RF AECOPD - Back to [facility] at this time on 4L O2. - Duoneb & Airduo breathing tx. Solumedrol 40mg Q12 IV. - S/P Vanc and cefepime for CAP Pneumonia Abx given. clinical picture at this time more consistent with AECOPD. Hyperglycemia -Insulin sliding scale CAD HTN -Losartan 50mg PO QD + Metoprolol 50mg PO QD + Aspirin 81mg PO QD. Hx pacemaker Debility DVT proph: Lovenox 40mg SC BID Clinical Quality Measures AMI/AHF: ASA po Prior to arrival: ZOHREH Cordero DO 01/20/23 0540: Supervisory-Addendum Brief Verification & Attestation Participated in pt care: history, MDM, physical Personally performed: exam, history, MDM, supervision of care Care discussed with: Medical Student Procedures: n/a Results interpretation: Verified all documentation Verification and Attestation of Medical Student E/M Service A medical student performed and documented this service in my presence. I reviewed and verified all information documented by the medical student and made modifications to such information, when appropriate. I personally performed the physical exam and medical decision making. Zohreh Bhandari, Jan 20, 2023,05:40 DIANDRA COSTELLO Jan 19, 2023 11:54 ZOHREH BHANDARI DO Jan 20, 2023 05:40
[2023-01-19 15:17] VITALS: BP 168/72
[2023-01-19 20:00] VITALS: BP 154/70
[2023-01-19] MEDS: polyethylene glycoL POWDER 17 GM (MIRALAX) PACK PO SCH (21:01)
[2023-01-20] VITALS (8 sets, daily range): BP systolic 124–187; BP diastolic 64–94
[2023-01-20 05:47] LABS: BASOPHILS % (AUTO) 0 % (0-10); EOSINOPHILS % (AUTO) 0 % (0-10); HEMATOCRIT 35 % (40-54); LYMPHOCYTES # (AUTO) 0.3 10^3/uL (1.0-4.0); LYMPHOCYTES % (AUTO) 1 % (12-44); MEAN CORPUSCULAR HEMOGLOBIN 31 pg (25-34); MEAN CORPUSCULAR HGB CONC 34 g/dL (32-36); MEAN CORPUSCULAR VOLUME 92 fL (80-99); MEAN PLATELET VOLUME 11.4 fL (9.0-12.2); MONOCYTES # (AUTO) 0.5 10^3/uL (0.0-1.0); MONOCYTES % (AUTO) 2 % (0-12); NEUTROPHILS # (AUTO) 24.3 10^3/uL (1.8-7.8); NEUTROPHILS % (AUTO) 96 % (42-75); PLATELET COUNT 258 10^3/uL (130-400); WHITE BLOOD COUNT 25.3 10^3/uL (4.3-11.0)
[2023-01-20 06:09] LABS: ALBUMIN 2.4 GM/DL (3.2-4.5); BILIRUBIN,TOTAL 0.4 MG/DL (0.1-1.0); CALCIUM 8.4 MG/DL (8.5-10.1); CREATININE SERUM 1.03 MG/DL (0.60-1.30); MAGNESIUM 1.5 MG/DL (1.6-2.4); POTASSIUM 4.6 MMOL/L (3.6-5.0); TOTAL PROTEIN 5.5 GM/DL (6.4-8.2)
[2023-01-20] MEDS: CATHETER FLUSH 10 ML SYR IVP SCH ×3 (06:10→20:26)
[2023-01-20] MEDS: inSUlin ASPART (NovoLOG) 1 UNIT/0.01 ML (CHARGE PER UNIT) SC SCH ×4 (06:10→20:25)
[2023-01-20] MEDS: PANTOPRAZOLE 40 MG (PROTONIX) TAB PO SCH (06:25)
[2023-01-20] MEDS: RT-ALBUTEROL/IPRATROPIUM 3 ML (DUONEB) VIAL INH SCH ×3 (07:18→22:16)
[2023-01-20] MEDS: RT--FLUTICASONE/SALMETEROL 232-14 (AIRDUO RespiCLICK) IH SCH ×2 (07:18→22:14)
--- NOTE | 2023-01-20 08:05 | Cardiology Progress Note ---
Subjective Date Seen by Provider: Jan 20, 2023 Time Seen by Provider: 08:05 Subjective/Events-last exam Patient was seen at bedside, laying down comfortably, feeling better. Breathing better. Review of Systems General: No Chills, No Night Sweats; Fatigue, Malaise; No Appetite, No Other HEENT: No Head Aches, No Visual Changes, No Eye Pain, No Ear Pain, No Dysphasia, No Sinus Congestion, No Post Nasal Drip, No Sore Throat, No Other Pulmonary: Dyspnea; No Cough, No Pleuritic Chest Pain, No Other Cardiovascular: No: Chest Pain, Palpitations, Orthopnea, Paroxysmal Noc. Dyspnea, Edema, Lt Headedness, Other Objective-Cardiology Exam Last Set of Vital Signs Vital Signs 01/20/23 07:19 Temp 36.2 Pulse 75 Resp 18 B/P (MAP) 152/88 (109) Pulse Ox 93 O2 Delivery OxyMask O2 Flow Rate 5.00 I&O Intake and Output 01/20/23 00:00 Intake Total 2280 ml Output Total 2650 ml Balance -370 ml Intake Oral 2280 ml Output Urine Total 2650 ml General: Alert, Oriented X3, Cooperative HEENT: Atraumatic, PERRLA Neck: Supple, No JVD Lungs: Other (bilat wheezing and rhonchi) Heart: Regular Rate, Normal S1, Normal S2 Abdomen: Normal Bowel Sounds, Soft Extremities: No Clubbing, No Cyanosis, No Edema Skin: No Rashes Neuro: Normal Speech Psych/Mental Status: Mental Status NL, Mood NL Results Lab Laboratory Tests 01/20/23 05:20 A/P-Cardiology Admission Diagnosis Pneumonia Chest pain CAD HLP Assessment/Plan Status post acute respiratory failure, improving Receiving bronchodilators and antibiotic Mildly hypoxemic but overall improving Responding to aggressive steroid dose. Managed by medical team Pneumonia, management per medical services Pulmonary consultation appreciated, recommendation was made using long-term antibiotics as an outpatient Aggressive bronchodilators and slow tapering steroid dose Chest pain, nonspecific etiology, EKG showing paced rhythm with no acute ST changes. Has mildly elevated troponin, which has been chronically mildly elevated since Jul 2022. Type II myocardial infarction secondary to small vessel disease. Chest pain likely d/t known small vessel disease. Conservative management is recommended, no intervention is warranted Continue to monitor Labile blood pressure, history of noncompliance, educated about the importance of compliance with medications at home Poor control, probably worsened by the aggressive steroid use Continue on Toprol 50 mg daily and increase losartan to 50 mg daily Monitor blood pressure History of alcohol intoxication, history of alcoholism and polysubstance abuse. Managed by medical team Coronary artery disease, cardiac catheterization carried out in 2012 and 2014 with diffuse atherosclerotic plaques. Nonobstructive disease. Cardiac catheterization was carried out by Dr. Houser on August 26, 2022 with nonobstructive coronary artery disease. iFR was done through the circumflex artery. Review of his cardiac catheterization film showed calcification in the left main and the proximal LAD with mild to moderate disease, 50% stenosis in the mid circumflex artery with IFR 0.97. Small vessel disease distally, dominant circumflex artery. 2D echo done on Dec 22, 2022 with mild concentric hypertrophy. Ejection fraction 60-65%, grade 2 diastolic dysfunction, biatrial enlargement Hyperlipidemia, monitor lipids History of dual-chamber pacemaker due to sinus node dysfunction, he has history of sinus pause for 3.2 second. Most recent interrogation done October 2022 showing good sensing and capturing. Continue to monitor History of avascular necrosis of the hip, underwent multiple hip surgeries in the past and hip replacements. History of gastroesophageal reflux disease, COPD. Polysubstance use for pain control Previous history of tobaccoism SKYLA SQUIRES MD Jan 20, 2023 08:05
[2023-01-20] MEDS: ASPIRIN E.C. 81 MG (ECOTRIN) TAB PO SCH (08:19)
[2023-01-20] MEDS: meTOproloL SUCCINATE 50 MG (TOPROL XL) TAB PO SCH (08:19)
[2023-01-20] MEDS: RANOLAZINE ER 500 MG TAB (RANEXA) PO SCH ×2 (08:19→20:25)
[2023-01-20] MEDS: BETHANECHOL 10 MG (URECHOLINE) TAB PO SCH ×2 (08:19→20:24)
[2023-01-20] MEDS: ENOXAPARIN 40 MG/0.4 ML (LOVENOX) SYR SC SCH ×2 (08:19→20:25)
[2023-01-20] MEDS: LOSARTAN 50 MG (COZAAR) TAB PO SCH (08:19)
[2023-01-20] MEDS: FUROSEMIDE 40 MG (LASIX) TAB PO SCH (08:19)
[2023-01-20] MEDS: GABAPENTIN 300 MG (NEURONTIN) CAP PO SCH ×3 (08:19→20:25)
[2023-01-20] MEDS: methylPREDNISolone 40 MG/ML (Solu-MEDROL) VIAL IV SCH (08:20)
[2023-01-20] MEDS: morphine INJ 4 MG/ML 1 ML (VIAL/SYRINGE) IV PRN ×2 (08:28→20:25)
--- NOTE | 2023-01-20 09:32 | Progress Note ---
Subjective Subjective/Events-last exam Afebrile, states he is feeling somewhat better. Denies concerns. Says he is urinating better. Objective Exam Last Set of Vital Signs Vital Signs Date Time Temp Pulse Resp B/P (MAP) Pulse Ox O2 Delivery O2 Flow Rate FiO2 01/20/23 07:19 36.2 75 18 152/88 (109) 93 OxyMask 5.00 Capillary Refill : Less Than 3 SecondsLess Than 3 Seconds I&O Intake and Output 01/20/23 00:00 Intake Total 2280 ml Output Total 2650 ml Balance -370 ml Intake Oral 2280 ml Output Urine Total 2650 ml General: Alert, No Acute Distress Lungs: Normal Air Movement Heart: Regular Rate Extremities: Other (2+ pitting edema to knees) Neuro: Normal Speech Results/Procedures Lab Laboratory Tests 01/19/23 10:52: Glucometer 147H 01/19/23 15:51: Glucometer 111H 01/19/23 20:53: Glucometer 300H 01/19/23 20:57: Glucometer 113H 01/20/23 05:20: White Blood Count 25.3H, Red Blood Count 3.86L, Hemoglobin 12.0L, Hematocrit 35L , Mean Corpuscular Volume 92, Mean Corpuscular Hemoglobin 31, Mean Corpuscular Hemoglobin Concent 34, Red Cell Distribution Width 14.6H, Platelet Count 258, Mean Platelet Volume 11.4, Immature Granulocyte % (Auto) 1, Neutrophils (%) (Auto) 96H, Lymphocytes (%) (Auto) 1L, Monocytes (%) (Auto) 2, Eosinophils (%) (Auto) 0, Basophils (%) (Auto) 0, Neutrophils # (Auto) 24.3H, Lymphocytes # (Auto) 0.3L, Monocytes # (Auto) 0.5, Eosinophils # (Auto) 0.0, Basophils # (Auto) 0.0, Immature Granulocyte # (Auto) 0.2H, Sodium Level 139, Potassium Level 4.6, Chloride Level 101, Carbon Dioxide Level 26, Anion Gap 12, Blood Urea Nitrogen 54H, Creatinine 1.03, Estimat Glomerular Filtration Rate 78, BUN/Creatinine Ratio 52, Glucose Level 122H, Calcium Level 8.4L, Corrected Calcium 9.7, Magnesium Level 1.5L, Total Bilirubin 0.4, Aspartate Amino Transf (AST/SGOT) 30, Alanine Aminotransferase (ALT/SGPT) 28, Alkaline Phosphatase 57, Total Protein 5.5L, Albumin 2.4L Microbiology 01/14/23 MRSA Screen - Final, Complete MRSA not isolated 01/12/23 Blood Culture - Final, Complete Streptococcus salivarius Assessment/Plan Assessment/Plan Assessment & Plan Acute on Chronic hypoxic respiratory failure due to COPD exacerbation COPD exacerbation- near baseline, will transition IV solumedrol to oral prednisone, possible d/c tomorrow -s/p vanc and cefepime for CAP Pneumonia -as above Hyperglycemia -Insulin sliding scale CAD HTN- losartan and metoprolol Hx pacemaker Debility- plan to return to half-way DVT proph: enoxaparin Clinical Quality Measures AMI/AHF: ASA po Prior to arrival: ARIS Rebolledo MD Jan 20, 2023 09:32
[2023-01-20] MEDS: predniSONE 10 MG TAB PO SCH (11:21)
--- NOTE | 2023-01-20 14:09 | Occupational Therapy Eval ---
OT Evaluation-General/PLF Medical Diagnosis Admission Date Jan 13, 2023 at 00:51 Medical Diagnosis: pneumonia Onset Date: Jan 13, 2023 Therapy Diagnosis Therapy Diagnosis: weakness Height/Weight Height (Feet): 5 Height (Inches): 8.00 Weight (Pounds): 170 Weight (Ounces): 8.0 Precautions Precautions/Isolations: Fall Prevention, Standard Precautions Safety Interventions: Bed Exit Alarm Weight Bear Status Weight Bearing Restriction: Non Weight Bearing Location Restriction: LE Bilateral Referral Referral Reason: Evaluation/Treatment Medical History Pertinent Medical History: Atrial Fib, Alcoholism, Arthritis, CAD, COPD, DM, Heart Failure, HTN, Neuropathy Additional Medical History Patient is a 72 y/o male with history of moderate nonobstructive CAD, HTN, multiple recent hospitalizations, 5+ since 10/2022. Presented to the ER with complaints of chest pain and increased dyspnea, productive cough. Denies any active chest pain. Denies dizziness or lightheadedness.PU on sacrum. NWB BLES d/t not joint necrotic tissue in hips Current History Acute on chronic respiratory failure requiring transfer to ICU 01/14/23. AECOPD. PNA.Diarrhea - Unknown Etiology. Hyperglycemia . Coronary Artery Disease. Dual Chamber Pacemaker Placement. Debility/Self-care Deficit . HTN . Anemia - Unknown Etiology. GERD Reviewed History: Yes Social History Home: [facility] Current Living Status: Alone ADL-Prior Level of Function SCALE: Activities may be completed with or without assistive devices. 8-Hykxuklfhl-odsibze completes the activity by him/herself with no assistance from a helper. 5-Set-up or Clean-up Assistance-helper sets up or cleans up; patient completes activity. Luckey assists only prior to or following the activity. 4-Supervision or Touching Assistance-helper provides verbal cues and/or touching/steadying and/or contact guard assistance as patient completes ac tivity. Assistance may be provided throughout the activity or intermittently. 3-Partial/Moderate Assistance-helper does LESS THAN HALF the effort. Luckey lifts, holds or supports trunk or limbs, but provides less than half the effort. 2-Substantial/Maximal Assistance-helper does MORE THAN HALF the effort. Luckey lifts or holds trunk or limbs and provides more than half the effort. 2-Jcjzrltvr-euivuz does ALL the effort. Patient does none of the effort to complete the activity. Or, the assistance of 2 or more helpers is required for the patient to complete the activity. If activity was not attempted, code reason: 7-Patient Refused. 9-Not Applicable-not attempted and the patient did not perform the activity before the current illness, exacerbation or injury. 10-Not Attempted due to Environmental Limitations-(lack of equipment, weather restraints, etc.). 88-Not Attempted due to Medical Conditions or Safety Concerns. Self Care: Needed Some Help Functional Cognition: Needed Some Help (d/t impaired realistic problem solving) Drive Self: No OT Current Status Subjective Agreeable to OT w/ encouragement d/t just not feeling like it. Mental Status/Objective Patient Orientation: Person, Time, Situation Attachments: IV Current Glasses/Contacts: Yes Hearing Aids: No (hard of hearing) Upper Extremity ROM WFLs Upper Extremity Coordination Intact Upper Extremity Strength 4/5 grossly ADL-Treatment Eating (QC): 6 Oral Hygiene (QC): 5 Shower/Bathe Self (QC): 7 Upper Body Dressing (QC): 4 Lower Body Dressing (QC): 1 On/Off Footwear (QC): 1 Toileting Hygiene (QC): 1 Other Treatments EOB sitting w/ functional reach and mobility in bed. Education OT Patient Education: Correct positioning, Exercise program, Modified ADL techniques, Progress toward Goal/Update tx plan, Purpose of tx/functional activities, Reviewed precautions, Rehab process, Safety issues, Transfer techniques, Use of adapted equipment Teaching Recipient: Patient Response to Teaching: Reinforcement Needed OT Custodial Goals Recreation Program Specialist Goals 1=Demonstrate adherence to instructed precautions during ADL tasks. 2=Patient will verbalize/demonstrate understanding of assistive devices/modifications for ADL. 3=Patient will improve strength/tolerance for activity to enable patient to perform ADL's. OT Education/Plan Problem List/Assessment Assessment: Decreased Activ Tolerance, Decreased UE Strength, Dependent Transfers, Impaired Bed Mobility, Impaired Coordination, Impaired Funct Balance, Impaired Self-Care Skills Discharge Recommendations Plan/Recommendations: Continue POC Therapy Discharge Recommendati: 24 Hour Supervision Treatment Plan/Plan of Care Treatment,Training & Education: Yes Patient would benefit from OT for education, treatment and training to promote independence in ADL's, mobility, safety and/or upper extremity function for ADL's. Plan of Care: ADL Retraining, Functional Mobility, Group Exercise/Act as Ind, UE Funct Exercise/Act Treatment Duration: Jan 24, 2023 Frequency: 3 times per week (3-5 times per week) Estimated Hrs Per Day: .25 hour per day Agreement: Yes Rehab Potential: Guarded Time Start Time: 13:20 Stop Time: 13:45 DATE: Jan 20, 2023 Total Time Billed (hr/min): 25 Billed Treatment Time GABBY AVALOS 1 25 min YANCI QUEVEDO OT Jan 20, 2023 14:09
--- NOTE | 2023-01-20 14:24 | Physical Therapy Evaluation ---
PT Evaluation-General Medical Diagnosis Admission Date Jan 13, 2023 at 00:51 Medical Diagnosis: COPD exacerbation/pneumonia/HTN urgency Onset Date: Jan 13, 2023 Therapy Diagnosis Therapy Diagnosis: debility/weakness Height/Weight Height (Feet): 5 Height (Inches): 8.00 Weight (Pounds): 170 Weight (Ounces): 8.0 Precautions Precautions/Isolations: Standard Precautions Weight Bear Status Right Lower Extremity: Right Non Weight Bearing Left Lower Extremity: Left Non Weight Bearing Referral Physician: Stepan Reason for Referral: Evaluation/Treatment Medical History Pertinent Medical History: Atrial Fib, Alcoholism, Arthritis, CAD, COPD, DM, Heart Failure, HTN, Neuropathy Current History EMS secondary to right side CP radiating to jaw and down bilateral UE's Reviewed History: Yes Social History Home: [facility] Prior Prior Level of Function SCALE: Activities may be completed with or without assistive devices. 3-Quchbioqda-mlhuioz completes the activity by him/herself with no assistance from a helper. 5-Set-up or Clean-up Assistance-helper sets up or cleans up; patient completes activity. Carmichaels assists only prior to or following the activity. 4-Supervision or Touching Assistance-helper provides verbal cues and/or touching/steadying and/or contact guard assistance as patient completes activity. Assistance may be provided throughout the activity or intermittently. 3-Partial/Moderate Assistance-helper does LESS THAN HALF the effort. Carmichaels lifts, holds or supports trunk or limbs, but provides less than half the effort. 2-Substantial/Maximal Assistance-helper does MORE THAN HALF the effort. Carmichaels lifts or holds trunk or limbs and provides more than half the effort. 4-Wlanuswkq-hcycin does ALL the effort. Patient does none of the effort to complete the activity. Or, the assistance of 2 or more helpers is required for the patient to complete the activity. If activity was not attempted, code reason: 7-Patient Refused. 9-Not Applicable-not attempted and the patient did not perform the activity before the current illness, exacerbation or injury. 10-Not Attempted due to Environmental Limitations-(lack of equipment, weather restraints, etc.). 88-Not Attempted due to Medical Conditions or Safety Concerns. Bed Mobility: 3 Transfers (B,C,W/C): 2 Gait: 9 PT Evaluation-Current Subjective Patient agrees to PT. Objective Patient Orientation: Person, Time, Situation ROM/Strength ROM Lower Extremities bilateral LE WFL (no hip joints noted) Strength Lower Extremities 2-/5 grossly bilateral LE (no formal testing) Integumentary/Posture Bowel Incontinence: Yes Bladder Incontinence: No Neuromuscular (Tone, Coordination, Reflexes) diminished coordination due to weakness Sensory Vision: Functional Hearing: Functional Transfers Roll Left to Right (QC): 3 Sit to Lying (QC): 3 Lying to Sitting/Side of Bed(Q: 3 Balance Sitting Static: Normal Sitting Dynamic: Normal Assessment/Needs Patient will be seen short term by skilled PT to address functional strength and mobility to improve current LOF. Patient was able to sit EOB for several minuted performing bilateral LE exercises. Rehab Potential: Guarded PT Short Term Goals Short Term Goals Time Frame: Jan 31, 2023 Roll Left & Right: 4 Sit to lyin Lying to sitting on side of be: 4 PT Plan Problem List Problem List: Activity Tolerance, Functional Strength, Safety, Balance, Transfer, Bed Mobility Treatment/Plan Treatment Plan: Continue Plan of Care Treatment Plan: Bed Mobility, Education, Functional Activity Ever, Functional Strength, Safety, Therapeutic Exercise, Transfers Treatment Duration: Jan 31, 2023 Frequency: 5 times per week Estimated Hrs Per Day: .25 hour per day Time Time In: 1320 Time Out: 1345 DATE: Jan 20, 2023 Total Billed Treatment Time: 25 Total Billed Treatment 1 visit EVModC 12 min FA 13 min DAMIR VILLALOBOS PT Jan 20, 2023 14:23
[2023-01-20] MEDS: polyethylene glycoL POWDER 17 GM (MIRALAX) PACK PO SCH (20:26)
[2023-01-21 04:35] VITALS: BP 128/74
[2023-01-21] MEDS: morphine INJ 4 MG/ML 1 ML (VIAL/SYRINGE) IV PRN (04:43)
[2023-01-21 04:48] LABS: BASOPHILS # (AUTO) 0.1 10^3/uL (0.0-0.1); BASOPHILS % (AUTO) 0 % (0-10); EOSINOPHILS % (AUTO) 0 % (0-10); HEMATOCRIT 34 % (40-54); HEMOGLOBIN 11.5 g/dL (13.3-17.7); LYMPHOCYTES # (AUTO) 0.7 10^3/uL (1.0-4.0); LYMPHOCYTES % (AUTO) 3 % (12-44); MEAN CORPUSCULAR HEMOGLOBIN 31 pg (25-34); MEAN CORPUSCULAR HGB CONC 34 g/dL (32-36); MEAN CORPUSCULAR VOLUME 92 fL (80-99); MEAN PLATELET VOLUME 11.1 fL (9.0-12.2); MONOCYTES # (AUTO) 0.6 10^3/uL (0.0-1.0); MONOCYTES % (AUTO) 2 % (0-12); NEUTROPHILS # (AUTO) 27.8 10^3/uL (1.8-7.8); NEUTROPHILS % (AUTO) 95 % (42-75); PLATELET COUNT 278 10^3/uL (130-400); WHITE BLOOD COUNT 29.3 10^3/uL (4.3-11.0)
[2023-01-21 04:57] LABS: ALBUMIN 2.6 GM/DL (3.2-4.5)
[2023-01-21 04:58] LABS: POTASSIUM 3.6 MMOL/L (3.6-5.0)
[2023-01-21 04:59] LABS: CALCIUM 8.9 MG/DL (8.5-10.1)
[2023-01-21 05:00] LABS: TOTAL PROTEIN 4.7 GM/DL (6.4-8.2)
[2023-01-21 05:02] LABS: BILIRUBIN,TOTAL 0.7 MG/DL (0.1-1.0)
[2023-01-21 05:04] LABS: CREATININE SERUM 0.93 MG/DL (0.60-1.30)
[2023-01-21 05:06] LABS: MAGNESIUM 1.5 MG/DL (1.6-2.4)
[2023-01-21] MEDS: CATHETER FLUSH 10 ML SYR IVP SCH ×2 (05:31→14:18)
[2023-01-21] MEDS: inSUlin ASPART (NovoLOG) 1 UNIT/0.01 ML (CHARGE PER UNIT) SC SCH ×2 (05:31→11:37)
[2023-01-21] MEDS: predniSONE 10 MG TAB PO SCH (06:02)
[2023-01-21] MEDS: PANTOPRAZOLE 40 MG (PROTONIX) TAB PO SCH (06:02)
[2023-01-21 07:17] VITALS: BP 172/92
[2023-01-21] MEDS: meTOproloL SUCCINATE 50 MG (TOPROL XL) TAB PO SCH (08:24)
[2023-01-21] MEDS: RANOLAZINE ER 500 MG TAB (RANEXA) PO SCH (08:24)
[2023-01-21] MEDS: LOSARTAN 50 MG (COZAAR) TAB PO SCH (08:24)
[2023-01-21] MEDS: GABAPENTIN 300 MG (NEURONTIN) CAP PO SCH ×2 (08:24→12:25)
[2023-01-21] MEDS: FUROSEMIDE 40 MG (LASIX) TAB PO SCH (08:24)
[2023-01-21] MEDS: ASPIRIN E.C. 81 MG (ECOTRIN) TAB PO SCH (08:24)
[2023-01-21] MEDS: BETHANECHOL 10 MG (URECHOLINE) TAB PO SCH (08:24)
[2023-01-21] MEDS: ENOXAPARIN 40 MG/0.4 ML (LOVENOX) SYR SC SCH (08:25)
--- NOTE | 2023-01-21 08:36 | Cardiology Progress Note ---
Subjective Date Seen by Provider: Jan 21, 2023 Time Seen by Provider: 08:35 Subjective/Events-last exam Patient sitting up in bed, eating breakfast. Denies any chest pain or dyspnea. Objective-Cardiology Exam Last Set of Vital Signs Vital Signs 01/21/23 14:41 Temp 36.4 Pulse 70 Resp 20 B/P (MAP) 165/86 Pulse Ox 92 O2 Delivery OxyMask O2 Flow Rate 5.00 I&O Intake and Output 01/21/23 00:00 Intake Total 1680 ml Output Total 3025 ml Balance -1345 ml Intake Oral 1680 ml Output Urine Total 3025 ml # Bowel Movements 1 General: Alert, No Acute Distress HEENT: Atraumatic, PERRLA Neck: Supple, No JVD Lungs: Normal Air Movement Heart: Regular Rate Abdomen: Normal Bowel Sounds, Soft Extremities: Other (2+ pitting edema to knees) Skin: No Rashes Neuro: Normal Speech Psych/Mental Status: Mental Status NL, Mood NL Results Lab Laboratory Tests 01/21/23 04:40 A/P-Cardiology Admission Diagnosis Pneumonia Chest pain CAD HLP Assessment/Plan Status post acute respiratory failure, improving Receiving bronchodilators and antibiotic Mildly hypoxemic but overall improving Responding to aggressive steroid dose, currently on steroid taper Managed by medical team Pneumonia, management per medical services Pulmonary consultation appreciated, recommendation was made using long-term antibiotics as an outpatient Aggressive bronchodilators and slow tapering steroid dose Chest pain, nonspecific etiology, EKG showing paced rhythm with no acute ST changes. Has mildly elevated troponin, which has been chronically mildly elevated since Jul 2022. Type II myocardial infarction secondary to small vessel disease. Chest pain likely d/t known small vessel disease. Conservative management is recommended, no intervention is warranted Continue to monitor Labile blood pressure, history of noncompliance, educated about the importance of compliance with medications at home probably worsened by the aggressive steroid use Continue to monitor blood pressure History of alcohol intoxication, history of alcoholism and polysubstance abuse. Managed by medical team Coronary artery disease, cardiac catheterization carried out in 2012 and 2014 with diffuse atherosclerotic plaques. Nonobstructive disease. Cardiac catheterization was carried out by Dr. Houser on August 26, 2022 with nonobstructive coronary artery disease. iFR was done through the circumflex artery. Review of his cardiac catheterization film showed calcification in the left main and the proximal LAD with mild to moderate disease, 50% stenosis in the mid circumflex artery with IFR 0.97. Small vessel disease distally, dominant circumflex artery. 2D echo done on Dec 22, 2022 with mild concentric hypertrophy. Ejection fraction 60-65%, grade 2 diastolic dysfunction, biatrial enlargement Hyperlipidemia, monitor lipids History of dual-chamber pacemaker due to sinus node dysfunction, he has history of sinus pause for 3.2 second. Most recent interrogation done October 2022 showing good sensing and capturing. Continue to monitor History of avascular necrosis of the hip, underwent multiple hip surgeries in the past and hip replacements. History of gastroesophageal reflux disease, COPD. Polysubstance use for pain control Previous history of tobaccoism Supervisory-Addendum Brief Supervisory Addendum Participated in pt care: history, MDM, physical Personally performed: exam, history, MDM Care discussed with: LO Results interpretation: Verified all documentation Notes: Patient was seen and evaluated with Brooks, examination performed, management plan was discussed, agree with the current scribed note, I made few changes to the note using Italic font Patient was seen at bedside, feeling better, ready for discharge. We will arrange for follow-up as an outpatient BROOKS GOLD Jan 21, 2023 08:36 SKYLA SQUIRES MD Jan 21, 2023 15:00
[2023-01-21] MEDS: MAGNESIUM 1 GM/100 ML IVPB 100 ML IV SCH (10:23)
[2023-01-21] MEDS: RT-ALBUTEROL/IPRATROPIUM 3 ML (DUONEB) VIAL INH SCH ×2 (10:39→14:37)
[2023-01-21] MEDS: RT--FLUTICASONE/SALMETEROL 232-14 (AIRDUO RespiCLICK) IH SCH (10:39)
[2023-01-21 11:18] VITALS: BP 165/86
[2023-01-21] MEDS ORDERED: PRD10T PO (11:35)
[2023-01-21] MEDS ORDERED: POTA10CA44 PO (11:35)
[2023-01-21] MEDS ORDERED: MTP25TSR PO (11:35)
[2023-01-21] MEDS ORDERED: FURO40TA4 PO (11:35)
[2023-01-21] MEDS ORDERED: FLUT1AER5 IH (11:35)
[2023-01-21] MEDS ORDERED: LOSA50TA63 PO (11:35)
--- NOTE | 2023-01-21 11:40 | Discharge Summary ---
Discharge Summary Hospital Course Hospital Course Date of Admission: Jan 13, 2023 at 00:51 Admission Diagnosis : AECOPD PNA Diarrhea - Unknown Etiology Hyperglycemia Coronary Artery Disease Dual Chamber Pacemaker Placement Debility/Self-care Deficit HTN Anemia - Unknown Etiology HLD GERD Family [facility] Date of Discharge: 01/21/23 Discharge Diagnosis: Acute on Chronic hypoxic respiratory failure due to COPD exacerbation COPD exacerbation Pneumonia Hyperglycemia CAD HTN Hx pacemaker Debility Hospital Course: 72 yo male admitted after being sent from senior living facility with worsening shortness of breath found to have COPD exacerbation and possible pneumonia. Treated with cefepime and vanc initially. Received IV steroids and inhaled medications, tapered to oral prednisone taper and was stable on home sup plemental oxygen 5 lpm. Had significant edema and worsened hypertension, started on lasix and anti-hypertensives added, Cardiology followed throughout. Returned to SNF at d/c. Labs and Pending Lab Test: Laboratory Tests 01/20/23 15:40: Glucometer 149H 01/20/23 20:08: Glucometer 159H 01/21/23 04:40: White Blood Count 29.3H, Red Blood Count 3.74L, Hemoglobin 11.5L, Hematocrit 34L , Mean Corpuscular Volume 92, Mean Corpuscular Hemoglobin 31, Mean Corpuscular Hemoglobin Concent 34, Red Cell Distribution Width 14.5, Platelet Count 278, Mean Platelet Volume 11.1, Immature Granulocyte % (Auto) 1, Neutrophils (%) (Auto) 95H, Lymphocytes (%) (Auto) 3L, Monocytes (%) (Auto) 2, Eosinophils (%) (Auto) 0, Basophils (%) (Auto) 0, Neutrophils # (Auto) 27.8H, Lymphocytes # (Auto) 0.7L, Monocytes # (Auto) 0.6, Eosinophils # (Auto) 0.0, Basophils # (Auto) 0.1, Immature Granulocyte # (Auto) 0.2H, Sodium Level 142, Potassium Level 3.6, Chloride Level 102, Carbon Dioxide Level 31, Anion Gap 9, Blood Urea Nitrogen 50H, Creatinine 0.93, Estimat Glomerular Filtration Rate 88, BUN/Creatinine Ratio 54, Glucose Level 97, Calcium Level 8.9, Corrected Calcium 10.0, Magnesium Level 1.5L, Total Bilirubin 0.7, Aspartate Amino Transf (AST/SGOT) 12, Alanine Aminotransferase (ALT/SGPT) 24, Alkaline Phosphatase 49, Total Protein 4.7L, Albumin 2.6L 01/21/23 11:01: Glucometer 120H Microbiology 01/14/23 MRSA Screen - Final, Complete MRSA not isolated 01/12/23 Blood Culture - Final, Complete Streptococcus salivarius Home Meds Active Potassium Chloride 10 Meq Capsule.er 10 Meq PO DAILY Fluticasone-Salmeterol 232-14 (Fluticasone/Salmeterol) 232 Mcg-14 Mcg/Actuation Aer.pow.ba 1 Each IH BID Prednisone 10 Mg Tab 0 PO UD Take 6 tabs(60mg)daily, decrease by 1 tab(10mg) every other day. Furosemide 40 Mg Tablet 40 Mg PO DAILY Losartan Potassium 50 Mg Tablet 50 Mg PO DAILY Metoprolol Succinate 25 Mg Tab.er.24h 25 Mg PO DAILY HOLD FOR PULSE <60 Prednisone 10 Mg Tab.ds.pk 10 Mg PO DAILY Take 6 tabs(60mg)daily,decrease by 1 tab(10mg)every other day. Levemir Flexpen (Insulin Detemir) 100 Unit/Ml (3 Ml) Insuln.pen 15 Unit SQ BID Enoxaparin Sodium 40 Mg/0.4 Ml Syringe 40 Mg SC Q12H Anti-Diarrheal (Loperamide HCl) 2 Mg Capsule 2-4 Mg PO UD PRN Aspirin EC (Aspirin) 81 Mg Tablet.dr 81 Mg PO DAILY Urecholine (Bethanechol Chloride) 10 Mg Tablet 10 Mg PO BID Ranolazine ER (Ranolazine) 500 Mg Tab.er.12h 500 Mg PO BID Pantoprazole Sodium 40 Mg Tablet.dr 40 Mg PO DAILY Neurontin (Gabapentin) 300 Mg Capsule 300 Mg PO TID Ventolin Hfa (Albuterol Sulfate) 90 Mcg Hfa.aer.ad 2 Puff INH Q6H PRN Reported Oxycodone HCl 5 Mg Tablet 10 Mg PO Q6H PRN Tylenol (Acetaminophen) 325 Mg Tablet 650 Mg PO Q4H PRN Skilled NF Admit to: [facility] Certification (SNF) I certify that SNF services are required to be given on an inpatient basis because of the above named patient's need for senior living care on a continuing basis for the conditions(s) for which he/she was receiving inpatient hospital services prior to his/her transfer to the SNF. Fdc Facility Order: Nursing Services, Sealer Dry Cell-Evaluate & Treat, Physical Therapy-Evaluate & Treat Oxygen Delivery Method: OxyMask Aris Ying Jan 21, 2023 11:35 Discharge Physical Exam General: Alert, No Acute Distress Lungs: Other (ronchi throughout) Heart: Regular Rate Abdomen: Normal Bowel Sounds, Soft Extremities: Other (1+ pitting edema to knees) Neuro: Normal Speech Psych/Mental Status: Mood NL ARIS YING MD Jan 21, 2023 11:40
--- NOTE | 2023-01-21 11:49 | Occ Therapy Progress Note ---
Therapy Progress Note Patient declined OT session, DC pending OT will initiate additional therapy in afternoon YANCI QUEVEDO OT Jan 21, 2023 11:49
[2023-01-21 14:41] VITALS: BP 165/86
--- NOTE | 2023-01-21 14:43 | Occ Therapy Progress Note ---
Therapy Progress Note Patient refused second time this day YANCI QUEVEDO OT Jan 21, 2023 14:43
== END 2023-01-21 14:45 | DRG 193 ==
LOC: EDUNIT# 20:00 → ER 20:01 → 4TH 01-13 00:51 → ICU 01-14 11:40 → 4TH 01-16 14:44
PROVIDERS: ADMIT Internal Medicine; ATTEND Family Medicine
PROC: 02HV33Z Insertion of Infusion Device into Superior Vena Cava, Percutaneous Approach (ICD-10-PCS; 2023-01-15)
PROC: 0JH63WZ Insertion of Totally Implantable Vascular Access Device into Chest Subcutaneous Tissue and Fascia, Percutaneous Approach (ICD-10-PCS; principal; 2023-01-15 13:42)
DX: J18.9 Pneumonia, unspecified organism (principal); J96.20 Acute and chronic respiratory failure, unspecified whether with hypoxia or hypercapnia; J44.0 Chronic obstructive pulmonary disease with (acute) lower respiratory infection; J44.1 Chronic obstructive pulmonary disease with (acute) exacerbation; N17.9 Acute kidney failure, unspecified; R19.7 Diarrhea, unspecified; R73.9 Hyperglycemia, unspecified; I25.10 Atherosclerotic heart disease of native coronary artery without angina pectoris; R53.81 Other malaise; I10 Essential (primary) hypertension; D64.9 Anemia, unspecified; E78.5 Hyperlipidemia, unspecified; K21.9 Gastro-esophageal reflux disease without esophagitis; Z95.810 Presence of automatic (implantable) cardiac defibrillator; I48.91 Unspecified atrial fibrillation; I25.2 Old myocardial infarction; G62.9 Polyneuropathy, unspecified; Z20.822 Contact with and (suspected) exposure to COVID-19; N31.9 Neuromuscular dysfunction of bladder, unspecified; M19.90 Unspecified osteoarthritis, unspecified site; G89.29 Other chronic pain; M54.9 Dorsalgia, unspecified; Z87.891 Personal history of nicotine dependence; Z79.82 Long term (current) use of aspirin; Z79.4 Long term (current) use of insulin; Z79.899 Other long term (current) drug therapy; I16.0 Hypertensive urgency; E78.00 Pure hypercholesterolemia, unspecified; G47.33 Obstructive sleep apnea (adult) (pediatric)
CPT/HCPCS: 36410; 36415; 71045; 76000; 76937; 80048; 80053; 80061; 82805; 82947; 83735; 83874; 83880; 84100; 84484; 85007; 85025; 85027; 85610; 85730; 86141; 87040; 87070; 87077; 87081; 87181; 87186; 87205; 87636; 93005; 93041; 94640; 94760; 96365; 96375

== ENCOUNTER 2023-02-24 00:07 | Inpatient (IN) | payer MEDICARE, MEDICAID ==
[~2023-02-24] VITALS: Ht 172.7 cm; Wt 84.4 kg
[~2023-02-24 00:07] MED LIST changes: +ACET325T38 PO; +FLUT1AER5 IH; +LOSA50TA63 PO; +POTA10CA44 PO; +PRD10T PO
[2023-02-24] MEDS ORDERED: ASPIRIN 81 MG CHEW (CHILDREN'S ASA) PO ONE (00:30)
[2023-02-24 01:13] LABS: BASOPHILS # (AUTO) 0.2 10^3/uL (0.0-0.1); BASOPHILS % (AUTO) 1 % (0-10); EOSINOPHILS # (AUTO) 0.1 10^3/uL (0.0-0.3); EOSINOPHILS % (AUTO) 1 % (0-10); HEMATOCRIT 30 % (40-54); HEMOGLOBIN 9.7 g/dL (13.3-17.7); LYMPHOCYTES # (AUTO) 4.3 10^3/uL (1.0-4.0); LYMPHOCYTES % (AUTO) 20 % (12-44); MEAN CORPUSCULAR HEMOGLOBIN 31 pg (25-34); MEAN CORPUSCULAR HGB CONC 32 g/dL (32-36); MEAN CORPUSCULAR VOLUME 94 fL (80-99); MEAN PLATELET VOLUME 9.9 fL (9.0-12.2); MONOCYTES # (AUTO) 1.9 10^3/uL (0.0-1.0); MONOCYTES % (AUTO) 9 % (0-12); NEUTROPHILS # (AUTO) 13.8 10^3/uL (1.8-7.8); NEUTROPHILS % (AUTO) 64 % (42-75); PLATELET COUNT 616 10^3/uL (130-400); WHITE BLOOD COUNT 21.6 10^3/uL (4.3-11.0)
[2023-02-24 01:24] LABS: ALBUMIN 2.7 GM/DL (3.2-4.5); CHLORIDE 96 MMOL/L (98-107); POTASSIUM 4.5 MMOL/L (3.6-5.0); PROTHROMBIN TIME PATIENT 13.7 SEC (12.2-14.7); SODIUM 135 MMOL/L (135-145)
[2023-02-24 01:25] LABS: AMYLASE 27 U/L (25-125); CALCIUM 9.3 MG/DL (8.5-10.1)
[2023-02-24 01:26] LABS: GLUCOSE 134 MG/DL (70-105)
[2023-02-24 01:27] LABS: TOTAL PROTEIN 6.1 GM/DL (6.4-8.2)
[2023-02-24 01:28] LABS: BILIRUBIN,TOTAL 0.4 MG/DL (0.1-1.0); CARBON DIOXIDE 26 MMOL/L (21-32)
[2023-02-24 01:30] LABS: ALKALINE PHOSPHATASE 83 U/L (40-136); CREATININE SERUM 2.18 MG/DL (0.60-1.30); GFR ESTIMATED 32
[2023-02-24] MEDS ORDERED: CEFEPIME INJECTION 1,000 MG in NS (IVPB) 50 ML IV ONE (01:30)
[2023-02-24] MEDS ORDERED: LIDOCAINE UROJET 2% GEL 10 ML PKG TOP ONE (01:30)
[2023-02-24] MEDS ORDERED: NS IV 1000 ML 1,000 ML IV SCH (01:30)
[2023-02-24 01:31] LABS: BUN/CREATININE RATIO 33
[2023-02-24 01:33] LABS: MAGNESIUM 1.6 MG/DL (1.6-2.4)
[2023-02-24 01:34] LABS: ALANINE AMINOTRANSFERASE < 6 U/L (0-55); CREATINE KINASE 8 U/L (30-200); LIPASE < 4 U/L (8-78)
--- NOTE | 2023-02-24 01:38 | ED General ---
General Chief Complaint: Chest Pain Stated Complaint: CP Nursing Triage Note: Pt presents with c/o chest pain via EMS. 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 He was given oxycodone around 2100 at [place] for the pain, however he states that only lasted about an hour and the pain returned. Source of Information: Patient (PT IS LIMITED HISTORIAN, AND HAS SOME MEMORY IMPAIRMENT), [facility] Records, Old Records History of Present Illness Date Seen by Provider: February 24, 2023 Time Seen by Provider: 00:15 Initial Comments PT ARRIVES VIA EMS FROM [facility] [place]O CHEST PAIN FOR THE LAST 5 HOURS PAIN IS IN CENTER OF CHEST AND IS CONSTANT. NO RADIATION OF PAIN. NOTHING WORSENS OR IMPROVES PAIN STATES "IT FEELS LIKE SOMEBODY SITTING ON MY CHEST" . RATES PAIN 8/10. HE HAS HAD INCREASED SHORTNESS OF BREATH TONIGHT PT HAS COPD AND NORMALLY WEARS O2 AT 3-5L/NC CONTINUOUSLY--ALF FOUND HIM TONIGHT WITH HIS OXYGEN OFF--PT STATES THAT HE "DIDN'T KNOW IT CAME OFF". NO NEBULIZER TREATMENT TONIGHT. NO COUGH NO FEVER NO GI SYMPTOMS PT HAD A DOSE OF OXYCODONE AT 2100 TONIGHT--STATES IT HELPED HIS PAIN "FOR A LITTLE WHILE" PT WITH A MULTITUDE OF VISITS, FOR VARIOUS COMPLAINTS. HE HAS A LONG HISTORY OF NON-COMPLIANCE IN ALL ASPECTS OF CARE. HE HAS HISTORY OF SMOKING, ALCOHOL AND DRUG ABUSE PT HAD BEEN LIVING AT HOME, IN DEPLORABLE CONDITIONS, AND BEING NON-MOBILE DUE TO PERMANENT REMOVAL OF BOTH HIP JOINTS DUE TO MULTIPLE FAILED HIP REPLACEMENT SURGERIES. PT HAS BEEN ADMITTED TO [facility] [place], AFTER REPEATEDLY REFUSING TO GO TO A ALF. HE WAS ADMITTED 01/01-01/09/23 FOR PNEUMONIA AND WAS PLACED IN ALF WHEN HE WAS DISMISSED HE WAS ADMITTED AGAIN 01/13-01/20/23 FOR PNEUMONIA, AND WENT BACK TO ALF. HE HAD A PORT PLACED IN RIGHT CHEST ON 01/15/23. NO PROBLEMS WITH THE SITE. PT DID HAVE A NSTEMI AND WAS ADMITTED 11/21/22-11/25/22. TREATED MEDICALLY CARDIAC CATH 08/2022--NON-OBSTRUCTIVE DISEASE, NO INTERVENTION DONE. PT IS NOT COVID OR FLU VACCINATED. PCP: DR. ROSENTHAL, [facility] Allergies and Home Medications Allergies Coded Allergies: codeine (Verified Allergy, Mild, HIVES...TAKES OXYCODONE & MS CONTIN AT HOME, 03/11/19) streptokinase (Verified Allergy, Unknown, 03/11/19) Patient Home Medication List Acetaminophen (Tylenol) 325 Mg Tablet, 650 MG PO Q4H PRN for PAIN-MILD (1-4) OR TEMPATURE, (Reported) Entered as Reported by: KARINA RAPHAEL on 01/13/23 1412 Albuterol Sulfate (Ventolin Hfa) 90 Mcg Hfa.aer.ad, 2 PUFF INH Q6H PRN for SHORTNESS OF BREATH Prescribed by: ZOHREH BHANDARI on 01/09/23 1139 Aspirin (Aspirin EC) 81 Mg Tablet.dr, 81 MG PO DAILY Prescribed by: ZOHREH BHANDARI on 01/09/23 113 Bethanechol Chloride (Urecholine) 10 Mg Tablet, 10 MG PO BID Prescribed by: ZOHREH BHANDARI on 01/09/23 113 Enoxaparin Sodium (Enoxaparin Sodium) 40 Mg/0.4 Ml Syringe, 40 MG SC Q12H Prescribed by: ZOHREH BHANDARI on 01/09/23 1139 Fluticasone/Salmeterol (Fluticasone-Salmeterol 232-14) 232 Mcg-14 Mcg/Actuation Aer.pow.ba, 1 EACH IH BID Prescribed by: ARIS FRANCIS on 01/21/23 113 Furosemide (Furosemide) 40 Mg Tablet, 40 MG PO DAILY Prescribed by: ARIS FRANCIS on 01/21/23 1135 Gabapentin (Neurontin) 300 Mg Capsule, 300 MG PO TID Prescribed by: ZOHREH BHANDARI on 01/09/23 113 Insulin Detemir (Levemir Flexpen) 100 Unit/Ml (3 Ml) Insuln.pen, 15 UNIT SQ BID Prescribed by: ZOHREH BHANADRI on 01/09/23 113 Loperamide HCl (Anti-Diarrheal) 2 Mg Capsule, 2-4 MG PO UD PRN for DIARRHEA Prescribed by: ZOHREH BHANDARI on 01/09/23 1139 Losartan Potassium (Losartan Potassium) 50 Mg Tablet, 50 MG PO DAILY Prescribed by: ARIS FRANCIS on 01/21/23 1135 Metoprolol Succinate (Metoprolol Succinate) 25 Mg Tab.er.24h, 25 MG PO DAILY Prescribed by: ARIS FRANCIS on 01/21/23 1135 Oxycodone HCl (Oxycodone HCl) 5 Mg Tablet, 10 MG PO Q6H PRN for PAIN-SEVERE (8- 10), (Reported) Entered as Reported by: KARINA RAPHAEL on 01/13/23 1412 Pantoprazole Sodium (Pantoprazole Sodium) 40 Mg Tablet.dr, 40 MG PO DAILY Prescribed by: ZOHREH BHANDARI on 01/09/23 1139 Potassium Chloride (Potassium Chloride) 10 Meq Capsule.er, 10 MEQ PO DAILY Prescribed by: ARIS FRANCIS on 01/21/23 1135 Prednisone (Prednisone) 10 Mg Tab, 0 PO UD Prescribed by: ARIS FRANCIS on 01/21/23 1135 Ranolazine (Ranolazine ER) 500 Mg Tab.er.12h, 500 MG PO BID Prescribed by: ZOHREH BHANDARI on 01/09/23 1139 Review of Systems Review of Systems Constitutional: no symptoms reported Respiratory: see HPI; No cough; short of breath Cardiovascular: see HPI, chest pain Gastrointestinal: no symptoms reported Genitourinary: no symptoms reported Musculoskeletal: see HPI Skin: no symptoms reported Psychiatric/Neurological: No Symptoms Reported Hematologic/Lymphatic: No Symptoms Reported Immunological/Allergic: no symptoms reported Past Kxhcrtk-Dlvgub-Jtcfci Hx Patient Social History Tobacco Use?: Yes Substance use?: Yes Alcohol Use?: Yes Immunizations Up To Date Tetanus Booster (TDap): Less than 5yrs PED Vaccines UTD: No First/Initial COVID19 Vaccinat: x2 Second COVID19 Vaccination Kuldip: x2 Third COVID19 Vaccination Date: x2 Seasonal Allergies Seasonal Allergies: No Past Medical History Surgery/Hospitalization HX: bilateral hip replacement/removal, cardiac cath, appendectomy, chronic pain, mi, cad, htn, constipation, non-compliance Surgeries: Yes (BILAT HIP REPLACEMENTS X 22; WOUND DEBRIDEMENTS) Abdominal, Appendectomy, Cardiac, Defibrillator, Joint Replacement, Orthopedic, Pacemaker Respiratory: Yes (O2 DEPENDENT AT 3-5 L/NC CONTINUOUSLY) Asthma, COPD Currently Using CPAP: No Currently Using BIPAP: No Cardiac: Yes (PACEMAKER, CARDIAC ARREST, SELF - REPORTED [place] X 8; CHF) Atrial Fibrillation, Chronic Edema/Swelling, Coronary Artery Disease, Congenital Heart Disease, Heart Attack, Hypertension, Irregular Heartbeat Neurological: Yes Neuropathy Reproductive Disorders: No Sexually Transmitted Disease: No HIV/AIDS: No Genitourinary: Yes Neurogenic Bladder Gastrointestinal: Yes Abdominal Hernia, Chronic Constipation Musculoskeletal: Yes (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;CHRONIC PAIN) Arthritis, Chronic Back Pain, Fractures Endocrine: Yes HEENT: Yes Loss of Vision: Denies Hearing Impairment: Hard of Hearing Cancer: No Psychosocial: Yes Integumentary: Yes (recurrent wound issues) Recent Skin Changes Blood Disorders: No Adverse Reaction/Blood Tranf: Yes (HIGH FEVER AND CHILLS) Family Medical History COPD Diabetes mellitus No Pertinent Family Hx Adopted, unknown FH SOCIAL HISTORY: -LONG HISTORY OF SMOKING IN THE PAST, QUIT -ETOH--LONG HISTORY OF ABUSE -DRUGS--EXTENSIVE ABUSE OF RX DRUGS, ESPECIALLY OPIATES PAST SURGICAL HISTORY: -MULTIPLE FAILED BILATERAL HIP REPLACEMENTS, WITH EVENTUAL REMOVAL OF BOTH FEMORAL HEADS -CARDIAC CATH 08/26/[address] LOPEZ: CORONARY ANGIOGRAPHY: Coronary calcification is seen. Left main coronary artery is free of significant disease. Left anterior descending artery does not exhibit significant disease. Left circumflex artery has 30% to 40% mid vessel stenosis at the site of the origin of a large obtuse marginal branch. IFR across this lesion is 0.96. This indicates that the lesion is hemodynamically nonsignificant. Right coronary artery is codominant with the left circumflex artery. It does not exhibit significant disease. LEFT VENTRICULAR ANGIOGRAPHY: Left ventricular angiography was carried out in the right anterior oblique projection. Global left ventricular systolic function is normal. No regional wall motion abnormalities seen. Left ventricular ejection fraction is approximately 60%. CONCLUSIONS: 1. Mild to moderate coronary artery disease, nonobstructive. 2. Normal global left ventricular systolic function with ejection fraction approximately 60%. 3. Normal left ventricular end-diastolic pressure. DISCUSSION AND RECOMMENDATIONS: Based on results of the study, it appears appropriate to continue a conservative approach. Physical Exam Vital Signs Vital Signs - First Documented 02/24/23 00:10 Temp 36.4 Pulse 67 Resp 22 B/P (MAP) 86/51 (63) Pulse Ox 99 O2 Delivery Nasal Cannula O2 Flow Rate 4.00 Capillary Refill : Less Than 3 Seconds Height, Weight, BMI Height: 5'8.00" Weight: 170lbs. 8.0oz. 77.002984yy; 40.26 BMI Method:Stated General Appearance: WD/WN, Chronically ill, Obese, Other (MILDLY DYSPNEIC BUT ABLE TO TALK IN FULL SENTENCES; MALODOROUS.) HEENT: PERRL/EOMI Neck: Normal Inspection Respiratory: Normal Breath Sounds, Decreased Breath Sounds (DECREASED AERATION IN BASES BILATERALLY); No Rales, No Rhonci, No Wheezing; Other (MILDLY DYSPNEIC ON ARRIVAL) Cardiovascular: Regular Rate, Rhythm, No Murmur Gastrointestinal: Normal Bowel Sounds, Non Tender, Soft Extremity: Pedal Edema (1+ BILATERALLY) Neurologic/Psychiatric: Alert, Oriented x3 (BUT HAS POOR MEMORY), No Motor/Sensory Deficits, Normal 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, 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 Norm as Tested Skin: Warm/Dry, Pallor Focused Exam Sepsis Stage: Severe Sepsis Possible Source: Unknown Lactate Level 02/24/23 01:45: Lactic Acid Level 1.62 Time of Focused Exam: 01:35 Respiratory: Normal Breath Sounds, Other (STILL MILDLY DYSPNEIC) Cardiovascular: Regular Rate, Rhythm, No Murmur Skin: normal color, warm/dry Lactic Acid Level Laboratory Tests Test 02/24/23 01:45 Lactic Acid Level 1.62 MMOL/L (0.50-2.00) Within 3hrs of presentation: Admin fluids, Admin ABX, Blood cultures prior to ABX's, Focus exam, Lactate level Progress/Results/Core Measures Suspected Sepsis SIRS Temperature: Pulse: 67 Respiratory Rate: 22 Laboratory Tests 02/24/23 01:00: White Blood Count 21.6H Blood Pressure 86 /51 Mean: 63 02/24/23 01:45: Lactic Acid Level 1.62 Laboratory Tests 02/24/23 01:00: Creatinine 2.18H, INR Comment 1.0, Platelet Count 616H, Total Bilirubin 0.4 Results/Orders Lab Results Laboratory Tests Test 02/24/23 00:28 02/24/23 01:00 02/24/23 01:45 02/24/23 02:05 Range/Units Influenza Type A (RT-PCR) Not Detected Not Detecte Influenza Type B (RT-PCR) Not Detected Not Detecte SARS-CoV-2 RNA (RT-PCR) Not Detected Not Detecte White Blood Count 21.6 H 4.3-11.0 10^3/uL Red Blood Count 3.18 L 4.30-5.52 10^6/uL Hemoglobin 9.7 L 13.3-17.7 g/dL Hematocrit 30 L 40-54 % Mean Corpuscular Volume 94 80-99 fL Mean Corpuscular Hemoglobin 31 25-34 pg Mean Corpuscular Hemoglobin Concent 32 32-36 g/dL Red Cell Distribution Width 14.9 H 10.0-14.5 % Platelet Count 616 H 130-400 10^3/uL Mean Platelet Volume 9.9 9.0-12.2 fL Immature Granulocyte % (Auto) 7 % Neutrophils (%) (Auto) 64 42-75 % Lymphocytes (%) (Auto) 20 12-44 % Monocytes (%) (Auto) 9 0-12 % Eosinophils (%) (Auto) 1 0-10 % Basophils (%) (Auto) 1 0-10 % Neutrophils # (Auto) 13.8 H 1.8-7.8 10^3/uL Lymphocytes # (Auto) 4.3 H 1.0-4.0 10^3/uL Monocytes # (Auto) 1.9 H 0.0-1.0 10^3/uL Eosinophils # (Auto) 0.1 0.0-0.3 10^3/uL Basophils # (Auto) 0.2 H 0.0-0.1 10^3/uL Immature Granulocyte # (Auto) 1.4 H 0.0-0.1 10^3/uL Neutrophils % (Manual) 65 % Lymphocytes % (Manual) 24 % Monocytes % (Manual) 8 % Eosinophils % (Manual) 1 % Metamyelocytes % 2 % Blood Morphology Comment NORMAL Prothrombin Time 13.7 12.2-14.7 SEC INR Comment 1.0 0.8-1.4 Activated Partial Thromboplast Time 33 24-35 SEC Sodium Level 135 135-145 MMOL/L Potassium Level 4.5 3.6-5.0 MMOL/L Chloride Level 96 L 98-107 MMOL/L Carbon Dioxide Level 26 21-32 MMOL/L Anion Gap 13 5-14 MMOL/L Blood Urea Nitrogen 72 H 7-18 MG/DL Creatinine 2.18 H 0.60-1.30 MG/DL Estimat Glomerular Filtration Rate 32 BUN/Creatinine Ratio 33 Glucose Level 134 H 70-105 MG/DL Calcium Level 9.3 8.5-10.1 MG/DL Corrected Calcium 10.3 H 8.5-10.1 MG/DL Magnesium Level 1.6 1.6-2.4 MG/DL Total Bilirubin 0.4 0.1-1.0 MG/DL Aspartate Amino Transf (AST/SGOT) 13 5-34 U/L Alanine Aminotransferase (ALT/SGPT) < 6 0-55 U/L Alkaline Phosphatase 83 40-136 U/L Total Creatine Kinase 8 L 30-200 U/L Creatine Kinase MB 0.4 <6.6 NG/ML Myoglobin 34.6 10.0-92.0 NG/ML Troponin I 0.039 H <0.028 NG/ML B-Type Natriuretic Peptide 87.5 <100.0 PG/ML Total Protein 6.1 L 6.4-8.2 GM/DL Albumin 2.7 L 3.2-4.5 GM/DL Amylase Level 27 25-125 U/L Lipase < 4 L 8-78 U/L Serum Alcohol < 10 <10 MG/DL Lactic Acid Level 1.62 0.50-2.00 MMOL/L Urine Color YELLOW Urine Clarity CLOUDY Urine pH 6.5 5-9 Urine Specific [place] 1.010 L 1.016-1.022 Urine Protein 1+ H NEGATIVE Urine Glucose (UA) NEGATIVE NEGATIVE Urine Ketones NEGATIVE NEGATIVE Urine Nitrite NEGATIVE NEGATIVE Urine Bilirubin NEGATIVE NEGATIVE Urine Urobilinogen 1.0 < = 1.0 MG/DL Urine Leukocyte Esterase 2+ H NEGATIVE Urine RBC (Auto) TRACE-I H NEGATIVE Urine RBC NONE /HPF Urine WBC >100 H /HPF Urine Crystals NONE /LPF Urine Bacteria NEGATIVE /HPF Urine Casts NONE /LPF Urine Mucus NEGATIVE /LPF Urine Culture Indicated CULTURE PENDING Urine Opiates Screen NEGATIVE NEGATIVE Urine Oxycodone Screen POSITIVE H NEGATIVE Urine Methadone Screen NEGATIVE NEGATIVE Urine Propoxyphene Screen NEGATIVE NEGATIVE Urine Barbiturates Screen NEGATIVE NEGATIVE Ur Tricyclic Antidepressants Screen NEGATIVE NEGATIVE Urine Phencyclidine Screen NEGATIVE NEGATIVE Urine Amphetamines Screen NEGATIVE NEGATIVE Urine Methamphetamines Screen NEGATIVE NEGATIVE Urine Benzodiazepines Screen NEGATIVE NEGATIVE Urine Cocaine Screen NEGATIVE NEGATIVE Urine Cannabinoids Screen NEGATIVE NEGATIVE Test 02/24/23 03:39 Range/Units Troponin I 0.056 H <0.028 NG/ML My Orders Orders - WILFRED CAMPBELL DO Ekg Tracing (02/24/23 00:15) Cbc With Automated Diff (02/24/23 00:16) Magnesium (02/24/23 00:16) Chest 1 View, Ap/Pa Only (02/24/23 00:16) Ekg Tracing (02/24/23 00:16) Comprehensive Metabolic Panel (02/24/23 00:16) Myoglobin Serum (02/24/23 00:16) Protime With Inr (02/24/23 00:16) Partial Thromboplastin Time (02/24/23 00:16) O2 (02/24/23 00:16) Monitor-Rhythm Ecg Trace Only (02/24/23 00:16) Ed Iv/Invasive Line Start (02/24/23 00:16) Creatine Kinase (02/24/23 00:16) Creatine Kinase Mb (02/24/23 00:16) Lipase (02/24/23 00:16) Amylase (02/24/23 00:16) Bnp Delta (02/24/23 00:16) Troponin I Delta (02/24/23 00:16) Aspirin Chewable Tablet (Baby Aspirin Ch (02/24/23:30) Covid 19 Inhouse Test (02/24/23 00:25) Influenza A And B By Pcr (02/24/23 00:25) Isolation Central Supply Req (02/24/23 00:25) Manual Differential (02/24/23 01:00) Catheter(Urinary) Insert & Ass 03,15 (02/24/23:28) Ua Culture If Indicated (02/24/23:28) Lidocaine 2% (Urojet) (Xylocaine Urojet) (02/24/23:30) Blood Culture (02/24/23:28) Sputum Culture (02/24/23:28) Urine Culture (02/24/23:28) Ed Iv/Invasive Line Start (02/24/23:28) Vital Signs Adult Sepsis Patie Q15M (02/24/23:28) O2 (02/24/23:28) Remove Rings In Anticipation O (02/24/23:28) Lactic Acid Analyzer (02/24/23:28) Ns Iv 1000 Ml (Sodium Chloride 0.9%) (02/24/23 01:30) Cefepime Injection (Maxipime Injection) (02/24/23 01:30) Ed Iv/Invasive Line Start (02/24/23 01:48) Lactated Ringers (Lr 1000 Ml Iv Solution (02/24/23 02:00) Alcohol (02/24/23 02:15) Drug Screen Stat (Urine) (02/24/23 02:15) Ed Iv/Invasive Line Start (02/24/23 02:40) Lactated Ringers (Lr 1000 Ml Iv Solution (02/24/23 02:45) Ekg Tracing (02/24/23 03:42) Troponin I Delta (02/24/23 03:42) Norepinephrine 8 Mg/250 Ml (Norepinephri (02/24/23 04:00) Ed Admission (Communication) (02/24/23 04:20) Meropenem (Merrem 1000 Mg) (02/24/23 04:30) Enoxaparin Injection (Lovenox Injection) (02/24/23 04:45) Medications Given in ED Current Medications Medications Dose Ordered Sig/Carl Route Start Time Stop Time Status Last Admin Dose Admin Aspirin 324 mg ONCE ONCE PO 02/24/23 00:30 02/24/23 00:31 DC 02/24/23 01:05 324 MG Cefepime HCl 1000 mg/Sodium Chloride 50 ml @ 100 mls/hr ONCE ONCE IV 02/24/23 01:30 02/24/23 01:59 DC 02/24/23 03:08 100 MLS/HR Lactated Ringer's 1,000 ml @ 0 mls/hr Q0M ONCE IV 02/24/23 02:00 02/24/23 02:01 DC 02/24/23 01:59 0 MLS/HR Lactated Ringer's 1,000 ml @ 0 mls/hr Q0M ONCE IV 02/24/23 02:45 02/24/23 02:46 DC 02/24/23 03:25 0 MLS/HR Lidocaine HCl 10 ml ONCE ONCE TOP 02/24/23 01:30 02/24/23 01:31 DC 02/24/23 01:59 10 ML Meropenem 1000 mg/ Sodium Chloride 100 ml @ 200 mls/hr ONCE ONCE IV 02/24/23 04:30 02/24/23 04:59 02/24/23 04:36 200 MLS/HR Vital Signs/I&O 02/24/23 02/24/23 00:10 02:30 Temp 36.4 Pulse 67 Resp 22 B/P (MAP) 86/51 (63) Pulse Ox 99 99 O2 Delivery Nasal Cannula Nasal Cannula O2 Flow Rate 4.00 4.00 Capillary Refill : Less Than 3 Seconds Blood Pressure Mean: 63 Progress Note : Progress Note PPE WORN COVID AND FLU TESTING DONE. SEPSIS PROTOCOL INITIATED AFTER RECEIVING WBC RESULTS GIVEN: -IV FLUIDS X 3 LITERS -ANTIBIOTICS -LEVOPHED O2 SATS 99% ON 3L/NC NO COUGH NO HYPOXIA NO FEVER PT HAD NO COMPLAINTS OF CHEST PAIN FOR THE REMAINDER OF ER STAY 3 HOUR REPEAT EKG AND TROPONIN ORDERED. CATHETER PLACED, WITH RETURN OF EXTREMELY PURULENT, THICK, MCNALLY COLORED URINE. CURRENTLY NO BEDS AVAILABLE ON 5TH FLOOR, BUT WILL BE AFTER 0500 THIS AM. WILL HOLD PT IN ER UNTIL BED IS AVAILABLE. ECG Initial ECG Impression Date: February 24, 2023 Initial ECG Impression Time: 00:23 Initial ECG Rate: 73 Initial ECG Comparisson: Changed (AXIS CHANGE IN MULTIPLE LEADS--QRS AND T- WAVES INVERTED IN MULTIPLE LEADS) Comment 100% ATRIAL PACED RHYTHM INTERPRETED BY ME EKG : EKG Time: 04:08 Rate: 68 ECG Comparisson: Changed Comment 100% ATRIAL PACED, QRS AND T-WAVES NOW ALL UPRIGHT Diagnostic Imaging Comments CXR--NO ACUTE PROCESS, POOR INSPIRATION--PENDING RADIOLOGIST REVIEW Reviewed: Reviewed by Me Critical Care Note Critical Care Start Time: 01:00 Departure Communication (Admissions) 0417--SPOKE WITH DR. BHANDARI, ACCEPTS PT FOR ADMIT. SHE WILL DO ADMIT ORDERS 0440--REPORT TO DR. TOLLIVER, E-ICU PHYSICIAN. Impression Primary Impression: Septic shock Additional Impressions: DEHYDRATION WITH ACUTE KIDNEY INJURY UTI (urinary tract infection) NSTEMI (non-ST elevated myocardial infarction) Disposition: ADMITTED INPATIENT Condition: Stable Admissions Decision to Admit Reason: Admit from ER (General) Decision to Admit/Date: February 24, 2023 Time/Decision to Admit Time: 04:20 Departure-Patient Inst. Referrals: [facility] (PCP/Family) Primary Care Physician WILFRED CAMPBELL DO February 24, 2023 01:38
[2023-02-24 01:40] LABS: CREATINE KINASE MB 0.4 NG/ML (<6.6)
[2023-02-24 01:52] LABS: EOSINOPHILS % (MANUAL) 1 %; LYMPHOCYTES % (MANUAL) 24 %; METAMYELOCYTES % 2 %; MONOCYTES % (MANUAL) 8 %; NEUTROPHILS % (MANUAL) 65 %
[2023-02-24 01:53] LABS: RBC MORPH NORMAL
[2023-02-24] MEDS ORDERED: LACTATED RINGERS 1,000 ML IV ONE ×2 (02:00→02:45)
[2023-02-24 02:22] LABS: BILIRUBIN,URINE NEGATIVE (NEGATIVE); CLARITY,URINE CLOUDY; COLOR,URINE YELLOW; GLUCOSE, URINE (UA) NEGATIVE (NEGATIVE); KETONES,URINE NEGATIVE (NEGATIVE); LEUKOCYTE ESTERASE ,URINE 2+ (NEGATIVE); NITRITE,URINE NEGATIVE (NEGATIVE); PH,URINE 6.5 (5-9); PROTEIN,URINE 1+ (NEGATIVE)
[2023-02-24 02:55] LABS: BACTERIA,URINE NEGATIVE /HPF; WBC,URINE >100 /HPF
[2023-02-24 02:56] LABS: AMPHETAMINE SCREEN, URINE NEGATIVE (NEGATIVE); BARBITURATE SCREEN URINE NEGATIVE (NEGATIVE); BENZODIAZEPINES SCREEN URINE NEGATIVE (NEGATIVE); CANNABINOID SCREEN, URINE NEGATIVE (NEGATIVE); COCAINE SCREEN URINE NEGATIVE (NEGATIVE); METHADONE STAT NEGATIVE (NEGATIVE); OPIATE SCREEN URINE NEGATIVE (NEGATIVE); OXYCODONE STAT POSITIVE (NEGATIVE); PROPOXYPHENE STAT NEGATIVE (NEGATIVE); TRICYCLIC ANTIDEPRESSANTS SCRE NEGATIVE (NEGATIVE)
[2023-02-24] MEDS ORDERED: MEROPENEM 1,000 MG in NS (IVPB) 100 ML IV ONE (04:30)
[2023-02-24] MEDS ORDERED: ENOXAPARIN 80 MG/0.8 ML (LOVENOX) SYR SC ONE (04:45)
[2023-02-24] MEDS ORDERED: diphenhydrAMINE 50 MG/ML INJ (BENADRYL) IVP PRN (05:15)
[2023-02-24] MEDS ORDERED: BISACODYL 10 MG SUPP (DULCOLAX) PR PRN (05:15)
[2023-02-24] MEDS ORDERED: diphenhydrAMINE 25 MG TAB (BENADRYL) PO PRN (05:15)
[2023-02-24] MEDS ORDERED: VANCOMYCIN INJECTION 0.1 MG in NS (IVPB) 250 ML IV SCH (05:15)
[2023-02-24] MEDS ORDERED: polyethylene glycoL POWDER 17 GM (MIRALAX) PACK PO PRN (05:15)
[2023-02-24] MEDS ORDERED: ONDANSETRON 4 MG/2 ML (SDV) Z0FRAN IV PRN (05:15)
[2023-02-24] MEDS ORDERED: ACETAMINOPHEN 325 MG TABLET PO PRN (05:15)
[2023-02-24] MEDS ORDERED: NS IV 500 ML 500 ML IV PRN (05:15)
[2023-02-24] MEDS ORDERED: LACTULOSE SYRUP 10GM/15ML (ENULOSE) 30ML UDC PO PRN (05:15)
[2023-02-24] MEDS ORDERED: LORazepam 0.5 MG (ATIVAN) TABLET PO PRN (05:15)
[2023-02-24] MEDS ORDERED: DexMEDEtomidine 250 ML DRIP 250 ML IV SCH (05:15)
[2023-02-24] MEDS ORDERED: LORazepam INJ 2 MG/ML (ATIVAN) VIAL IVP PRN (05:15)
[2023-02-24] MEDS ORDERED: ONDANSETRON 4 MG (ZOFRAN) ORAL DISSOLVE TAB PO PRN (05:15)
[2023-02-24] MEDS ORDERED: MILK OF MAGNESIA 400 MG/5 ML 30 ML UDC PO PRN (05:15)
[2023-02-24] MEDS ORDERED: CALCIUM CARBONATE 500 MG (TUMS) TAB.CHEW PO PRN (05:15)
[2023-02-24] MEDS ORDERED: MELATONIN 3 MG TABLET PO PRN (05:15)
[2023-02-24] MEDS ORDERED: ANTACID SUSP 30 ML UDC (MYLANTA) PO PRN (05:15)
[2023-02-24] MEDS: NOREPINEPHRINE 8 MG/250 ML 250 ML IV SCH ×4 (06:08→23:19)
[2023-02-24] MEDS: KCL 20 MEQ TAB (K-DUR) PO SCH (06:09)
[2023-02-24] MEDS: MAGNESIUM 1 GM/100 ML IVPB 100 ML IV SCH (06:09)
[2023-02-24] MEDS: POTASSIUM CL 10MEQ/50ML IVPB 50 ML IV SCH (06:10)
[2023-02-24 06:13] LABS: TRIGLYCERIDES 120 MG/DL (<150); VLDL CHOLESTEROL 24 MG/DL (5-40)
[2023-02-24] MEDS ORDERED: NS IV 1000 ML 1,000 ML ONE (06:14)
[2023-02-24] MEDS: NS IV 1000 ML 1,000 ML IV SCH ×3 (06:15→21:23)
[2023-02-24 06:18] LABS: CHOLESTEROL 181 MG/DL (< 200)
[2023-02-24 06:19] LABS: HDL CHOLESTEROL 25 MG/DL (40-60)
[2023-02-24 06:29] VITALS: BP 118/64
[2023-02-24] MEDS ORDERED: RT-ALBUTEROL/IPRATROPIUM 3 ML (DUONEB) VIAL INH PRN (06:45)
[2023-02-24] MEDS ORDERED: VANCOMYCIN 1,750 MG/NS 500 ML IVPB IV SCH ×2 (08:00)
[2023-02-24] MEDS: ASPIRIN E.C. 81 MG (ECOTRIN) TAB PO SCH (09:20)
[2023-02-24] MEDS: ENOXAPARIN 80 MG/0.8 ML (LOVENOX) SYR SC SCH ×2 (09:20→21:22)
[2023-02-24] MEDS: SENNOSIDES 8.6 MG (SENOKOT) TAB PO SCH ×2 (09:20→21:22)
[2023-02-24] MEDS: DOCUSATE SODIUM 100 MG (COLACE) CAP PO SCH ×2 (09:20→21:22)
[2023-02-24] MEDS: RT-ALBUTEROL/IPRATROPIUM 3 ML (DUONEB) VIAL INH SCH ×3 (09:50→22:09)
[2023-02-24] MEDS: inSUlin ASPART (NovoLOG) 1 UNIT/0.01 ML (CHARGE PER UNIT) SC SCH ×3 (11:00→21:22)
[2023-02-24] MEDS: MEROPENEM 500 MG in NS (IVPB) 100 ML IV SCH ×2 (13:40→21:22)
--- NOTE | 2023-02-24 14:29 | History & Physical-Hospitalist ---
DANILODARYA 02/24/23 1429: History of Present Illness HPI/Chief Complaint CC: Chest tightness HPI: Nasir Jalloh is a 72M who [facility] with c/o unremitting chest pain and tightness and increased SOB. EKG and troponin were checked initially and at 3 hours post arrival and were not found to be concerning for emergent STEMI. This morning pt is resting comfortably on 4L nc (BL 3-5L nc) and is in NAD. He endorses substernal chest pain and tightness and notes that it radiates to his left arm and jaw (previously denied in ED). He has had UOP and notes burning with urination. He has had BM as well. He is unable to ambulate. He denies n/v/f but does endorse some chills. He has been eating and drinking without issue. ED Course: PT ARRIVES VIA EMS FROM [facility] C/O CHEST PAIN FOR THE LAST 5 HOURS PAIN IS IN CENTER OF CHEST AND IS CONSTANT. NO RADIATION OF PAIN. NOTHING WORSENS OR IMPROVES PAIN STATES "IT FEELS LIKE SOMEBODY SITTING ON MY CHEST" . RATES PAIN 8/10. HE HAS HAD INCREASED SHORTNESS OF BREATH TONIGHT PT HAS COPD AND NORMALLY WEARS O2 AT 3-5L/NC CONTINUOUSLY--PRISON FOUND HIM TONIGHT WITH HIS OXYGEN OFF--PT STATES THAT HE "DIDN'T KNOW IT CAME OFF". NO NEBULIZER TREATMENT TONIGHT. NO COUGH NO FEVER NO GI SYMPTOMS PT HAD A DOSE OF OXYCODONE AT 2100 TONIGHT--STATES IT HELPED HIS PAIN "FOR A LITTLE WHILE" PT WITH A MULTITUDE OF VISITS, FOR VARIOUS COMPLAINTS. HE HAS A LONG HISTORY OF NON-COMPLIANCE IN ALL ASPECTS OF CARE. HE HAS HISTORY OF SMOKING, ALCOHOL AND DRUG ABUSE PT HAD BEEN LIVING AT HOME, IN DEPLORABLE CONDITIONS, AND BEING NON-MOBILE DUE TO PERMANENT REMOVAL OF BOTH HIP JOINTS DUE TO MULTIPLE FAILED HIP REPLACEMENT SURGERIES. PT HAS BEEN ADMITTED TO [facility], AFTER REPEATEDLY REFUSING TO GO TO A PRISON. HE WAS ADMITTED 01/01-01/09/23 FOR PNEUMONIA AND WAS PLACED IN PRISON WHEN HE WAS DISMISSED HE WAS ADMITTED AGAIN 01/13-01/20/23 FOR PNEUMONIA, AND WENT BACK TO PRISON. HE HAD A PORT PLACED IN RIGHT CHEST ON 01/15/23. NO PROBLEMS WITH THE SITE. PT DID HAVE A NSTEMI AND WAS ADMITTED 11/21/22-11/25/22. TREATED MEDICALLY CARDIAC CATH 08/2022--NON-OBSTRUCTIVE DISEASE, NO INTERVENTION DONE. PT IS NOT COVID OR FLU VACCINATED. PCP: DR. ROSENTHAL, [facility] Progress Note : Progress Note PPE WORN COVID AND FLU TESTING DONE. SEPSIS PROTOCOL INITIATED AFTER RECEIVING WBC RESULTS GIVEN: -IV FLUIDS X 3 LITERS -ANTIBIOTICS -LEVOPHED O2 SATS 99% ON 3L/NC NO COUGH NO HYPOXIA NO FEVER PT HAD NO COMPLAINTS OF CHEST PAIN FOR THE REMAINDER OF ER STAY 3 HOUR REPEAT EKG AND TROPONIN ORDERED. CATHETER PLACED, WITH RETURN OF EXTREMELY PURULENT, THICK, MCNALLY COLORED URINE. CURRENTLY NO BEDS AVAILABLE ON 5TH FLOOR, BUT WILL BE AFTER 0500 THIS AM. WILL HOLD PT IN ER UNTIL BED IS AVAILABLE. ECG Initial ECG Impression Date: February 24, 2023 Initial ECG Impression Time: 00:23 Initial ECG Rate: 73 Initial ECG Comparisson: Changed (AXIS CHANGE IN MULTIPLE LEADS--QRS AND T- WAVES INVERTED IN MULTIPLE LEADS) Comment 100% ATRIAL PACED RHYTHM INTERPRETED BY ME EKG : EKG Time: 04:08 Rate: 68 ECG Comparisson: Changed Comment 100% ATRIAL PACED, QRS AND T-WAVES NOW ALL UPRIGHT Diagnostic Imaging Comments CXR--NO ACUTE PROCESS, POOR INSPIRATION--PENDING RADIOLOGIST REVIEW Reviewed: Reviewed by Me Critical Care Note Critical Care Start Time: 01:00 Departure Communication (Admissions) 0417--SPOKE WITH DR. BHANDARI, ACCEPTS PT FOR ADMIT. SHE WILL DO ADMIT ORDERS 0440--REPORT TO DR. TOLLIVER, E-ICU PHYSICIAN. Impression Primary Impression: Septic shock Additional Impressions: DEHYDRATION WITH ACUTE KIDNEY INJURY UTI (urinary tract infection) NSTEMI (non-ST elevated myocardial infarction) Date Seen 02/24/23 Time Seen by a Provider: 12:00 Attending Physician [facility] PCP Admitting Physician: Kirsten Bhandari DO Attending Physician: Kirsten Bhandari DO Referring Physician Date of Admission February 24, 2023 at 05:00 Home Medications & Allergies Home Medications Reviewed patient Home Medication Reconciliation performed by pharmacy medication reconciliations weight reducing technician and/or nursing. Patients Allergies have been reviewed. Allergies Allergies Coded Allergies codeine (Verified Allergy, Mild, HIVES...TAKES OXYCODONE & MS CONTIN AT HOME, 03/11/19) streptokinase (Verified Allergy, Unknown, 03/11/19) Past Ixaesgd-Hapxzc-Izboot Hx Patient Social History Tobacco Use?: No Smoking Status: Former Smoker Smokeless Tobacco Frequency: Former User Use of E-Cig and/or Vaping dev: No Substance use?: No Alcohol Use?: No Pt feels they are or have been: No Immunizations Up To Date Date of Influenza Vaccine: Jul 26, 2022 First/Initial COVID19 Vaccinat: x2 Second COVID19 Vaccination Kuldip: x2 Tetanus Booster (TDap): Unknown Hepatitis A: No Hepatitis B: No PED Vaccines UTD: No Date of Pneumonia Vaccine: Jul 03, 2018 Seasonal Allergies Seasonal Allergies: No Current Status Advance Directives: No Communicates: Verbally Primary Language: Jordanian Preferred Spoken Language: Jordanian Is interpretation needed?: No Implanted or Applied Medical D: Pacemaker, Stents, Other Past Medical History Surgeries: Abdominal, Appendectomy, Cardiac, Defibrillator, Joint Replacement, Orthopedic, Pacemaker Asthma, COPD Currently Using CPAP: No Currently Using BIPAP: No Atrial Fibrillation, Chronic Edema/Swelling, Coronary Artery Disease, Congenital Heart Disease, Heart Attack, Hypertension, Irregular Heartbeat Neuropathy Sexually Transmitted Disease: No HIV/AIDS: No Neurogenic Bladder Abdominal Hernia, Chronic Constipation Arthritis, Chronic Back Pain, Fractures Loss of Vision: Denies Hearing Impairment: Hard of Hearing Recent Skin Changes Blood Disorders: No Adverse Reaction/Blood Tranf: Yes (HIGH FEVER AND CHILLS) PMHx: avascular necrosis of multiple joints Asthma Chronic nonhealing hip wounds SurgHx: 11 bilateral hip surgeries, removal of hardware is nonambulatory 3 back surgeries Neck surgery Bilateral carpal tunnel release Bilateral cubital tunnel release Family Medical History COPD Diabetes mellitus No Pertinent Family Hx Adopted, unknown FH SOCIAL HISTORY: -LONG HISTORY OF SMOKING IN THE PAST, QUIT -ETOH--LONG HISTORY OF ABUSE -DRUGS--EXTENSIVE ABUSE OF RX DRUGS, ESPECIALLY OPIATES PAST SURGICAL HISTORY: -MULTIPLE FAILED BILATERAL HIP REPLACEMENTS, WITH EVENTUAL REMOVAL OF BOTH FEMORAL HEADS -CARDIAC CATH 08/26/[address] LOPEZ: CORONARY ANGIOGRAPHY: Coronary calcification is seen. Left main coronary artery is free of significant disease. Left anterior descending artery does not exhibit significant disease. Left circumflex artery has 30% to 40% mid vessel stenosis at the site of the origin of a large obtuse marginal branch. IFR across this lesion is 0.96. This indicates that the lesion is hemodynamically nonsignificant. Right coronary artery is codominant with the left circumflex artery. It does not exhibit significant disease. LEFT VENTRICULAR ANGIOGRAPHY: Left ventricular angiography was carried out in the right anterior oblique projection. Global left ventricular systolic function is normal. No regional wall motion abnormalities seen. Left ventricular ejection fraction is approximately 60%. CONCLUSIONS: 1. Mild to moderate coronary artery disease, nonobstructive. 2. Normal global left ventricular systolic function with ejection fraction approximately 60%. 3. Normal left ventricular end-diastolic pressure. DISCUSSION AND RECOMMENDATIONS: Based on results of the study, it appears appropriate to continue a conservative approach. Review of Systems Constitutional: see HPI EENTM: no symptoms reported Respiratory: no symptoms reported Cardiovascular: see HPI Gastrointestinal: no symptoms reported Genitourinary: see HPI, dysuria Musculoskeletal: no symptoms reported Skin: no symptoms reported Physical Exam Physical Exam Vital Signs Vital Signs - First Documented 02/24/23 02/24/23 00:10 06:29 Temp 36.4 Pulse 67 Resp 22 B/P (MAP) 86/51 (63) Pulse Ox 99 O2 Delivery Nasal Cannula O2 Flow Rate 4.00 FiO2 36 Capillary Refill : Greater Than 3 Seconds Height, Weight, BMI Height: 5'8.00" Weight: 170lbs. 8.0oz. [id number]; 27.92 BMI Method:Stated General Appearance: No Apparent Distress, WD/WN, Chronically ill, Obese HEENT: PERRL/EOMI, Normal ENT Inspection Neck: Full Range of Motion, Normal Inspection, Non Tender, Supple Respiratory: Chest Non Tender, Lungs Clear, No Accessory Muscle Use, No Respiratory Distress, Decreased Breath Sounds Cardiovascular: Regular Rate, Rhythm, No Gallop, No Murmur, Normal Peripheral Pulses Gastrointestinal: Normal Bowel Sounds, No Organomegaly, No Pulsatile Mass, Non Tender, Soft Extremity: Normal Capillary Refill, Normal Inspection, Normal Range of Motion, Non Tender, No Calf Tenderness, Pedal Edema (+1 BL) Neurologic/Psychiatric: Alert, Oriented x3, No Motor/Sensory Deficits, Normal Mood/Affect, 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 Assessment/Plan Admission Diagnosis Chest pain/Dysuria Assessment and Plan Sepsis 2/2 UTI - SIRS (tachypnea, leukocytosis, +UA concerning for UTI) - UA (cloudy, heavily purulent, +LE) concerning for UTI - ucx, bcx, sputum cx pending - Given IVF, levophed, and empiric abx (cefepime and meropenem) in ED - continue maintenance IVF - cefepime d/c - cont meropenem and vanc, narrow as able with cx and susceptibilities GELACIO Dehydration - likely pre-renal with significant dehydration - Cr 2.18, unknown BL - continue maintenance IVF NSTEMI vs. T2 TX (demand ischemia) - +anginal sxs, similar admissions, Oct 2022 heart cath demonstrated mild to moderate coronary artery disease, nonobstructive - troponin mildly elevated at 0.039 then 0.056 - EKG did not demonstrate signs of ACS - likely T2 TX 2/2 sepsis - trend trop - consult cardiology Clinical Quality Measures AMI/AHF: ASA po Prior to arrival: KIRSTEN Cordero DO 02/25/23 0449: History of Present Illness Source: patient Exam Limitations: no limitations Past Cqgkqpb-Xynrln-Vdyqrt Hx Patient Social History Marrital Status: single Employed/Student: retired Smoking Status: Former Smoker Past Medical History COPD, Emphysema Coronary Artery Disease, High Cholesterol, Hypertension, Peripheral Vascular Family Medical History COPD Diabetes mellitus Review of Systems Constitutional: see HPI Physical Exam Physical Exam General Appearance: Chronically ill, Mild Distress, Other (márquez) Respiratory: Decreased Breath Sounds, Wheezing Cardiovascular: Regular Rate, Rhythm Neurologic/Psychiatric: Alert, Oriented x3 Assessment/Plan Admission Diagnosis Septic shock from UTI Acute on Chronic hypoxic respiratory failure due to COPD exacerbation COPD exacerbation Pneumonia Hyperglycemia CAD HTN Hx pacemaker Debility Admission Status: Inpatient Order (span 2 midnights) Reason for Inpatient Admission: septci shock from UTI Supervisory-Addendum Brief Verification & Attestation Participated in pt care: history, MDM, physical Personally performed: exam, history, MDM, supervision of care Care discussed with: Medical Student Procedures: n/a Results interpretation: Verified all documentation Verification and Attestation of Medical Student E/M Service A medical student performed and documented this service in my presence. I reviewed and verified all information documented by the medical student and made modifications to such information, when appropriate. I personally performed the physical exam and medical decision making. Kirsten Bhandari, February 25, 2023,04:49 DARYA CARRASCO February 24, 2023 14:29 KIRSTEN BHANDARI DO February 25, 2023 04:49
--- NOTE | 2023-02-24 14:37 | Diagnostic Imaging Report ---
EXAMINATION: Chest 1 view HISTORY: Chest pain COMPARISON: 01/15/2023. FINDINGS: Heart size and pulmonary vasculature are normal. There are mild interstitial opacities within the lung bases. Right-sided port catheter is present. Left-sided cardiac device is unchanged. No significant pleural effusion or pneumothorax. The osseous structures are intact. IMPRESSION: 1. Mild bibasilar interstitial opacities which could be seen with atelectasis, edema, or pneumonia. Dictated by: Dictated on workstation # [id number]
--- NOTE | 2023-02-24 16:31 | Consultation-Cardiology ---
HPI-Cardiology Cardiology Consultation Date of Consultation 02/24/23 Date of Admission Time Seen by Provider: 08:30 Indication: Chest pain HPI 72-year-old gentleman with extensive history, debility. Immobility. History of cardiac catheterization in August 2022 which was normal. Patient started to have chest pain, requiring higher oxygen level. Came into the emergency room a nd noted to have mild elevation in troponin. He was noted to have elevation in white count. Denied any active chest pain at this point. Still having fatigue and loss of energy. 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 Smoking Status: Former Smoker Type Used: Cigarettes 2nd Hand Smoke Exposure: Yes Recent Hopitalizations: No Have you traveled recently?: No Alcohol Use?: No Immunizations Up To Date Tetanus Booster (TDap): Less than 5yrs Date of Pneumonia Vaccine: Jul 03, 2018 Date of Influenza Vaccine: Jul 26, 2022 Past Medical History Discussed below Family Medical History Significant Family History: No Pertinent Family Hx Family History: COPD Diabetes mellitus Review of Systems-General Review of Systems Constitutional: see HPI EENTM: no symptoms reported Respiratory: no symptoms reported, see HPI, short of breath Cardiovascular: see HPI, chest pain Gastrointestinal: no symptoms reported Genitourinary: see HPI, dysuria Musculoskeletal: no symptoms reported Skin: no symptoms reported Psychiatric/Neurological: No Symptoms Reported Reviewed Test Results Reviewed Test Results Lab Laboratory Tests Test 02/24/23 00:28 02/24/23 01:00 02/24/23 01:45 02/24/23 02:05 Range/Units Influenza Type A (RT-PCR) Not Detected Not Detecte Influenza Type B (RT-PCR) Not Detected Not Detecte SARS-CoV-2 RNA (RT-PCR) Not Detected Not Detecte White Blood Count 21.6 H 4.3-11.0 10^3/uL Red Blood Count 3.18 L 4.30-5.52 10^6/uL Hemoglobin 9.7 L 13.3-17.7 g/dL Hematocrit 30 L 40-54 % Mean Corpuscular Volume 94 80-99 fL Mean Corpuscular Hemoglobin 31 25-34 pg Mean Corpuscular Hemoglobin Concent 32 32-36 g/dL Red Cell Distribution Width 14.9 H 10.0-14.5 % Platelet Count 616 H 130-400 10^3/uL Mean Platelet Volume 9.9 9.0-12.2 fL Immature Granulocyte % (Auto) 7 % Neutrophils (%) (Auto) 64 42-75 % Lymphocytes (%) (Auto) 20 12-44 % Monocytes (%) (Auto) 9 0-12 % Eosinophils (%) (Auto) 1 0-10 % Basophils (%) (Auto) 1 0-10 % Neutrophils # (Auto) 13.8 H 1.8-7.8 10^3/uL Lymphocytes # (Auto) 4.3 H 1.0-4.0 10^3/uL Monocytes # (Auto) 1.9 H 0.0-1.0 10^3/uL Eosinophils # (Auto) 0.1 0.0-0.3 10^3/uL Basophils # (Auto) 0.2 H 0.0-0.1 10^3/uL Immature Granulocyte # (Auto) 1.4 H 0.0-0.1 10^3/uL Neutrophils % (Manual) 65 % Lymphocytes % (Manual) 24 % Monocytes % (Manual) 8 % Eosinophils % (Manual) 1 % Metamyelocytes % 2 % Blood Morphology Comment NORMAL Prothrombin Time 13.7 12.2-14.7 SEC INR Comment 1.0 0.8-1.4 Activated Partial Thromboplast Time 33 24-35 SEC Sodium Level 135 135-145 MMOL/L Potassium Level 4.5 3.6-5.0 MMOL/L Chloride Level 96 L 98-107 MMOL/L Carbon Dioxide Level 26 21-32 MMOL/L Anion Gap 13 5-14 MMOL/L Blood Urea Nitrogen 72 H 7-18 MG/DL Creatinine 2.18 H 0.60-1.30 MG/DL Estimat Glomerular Filtration Rate 32 BUN/Creatinine Ratio 33 Glucose Level 134 H 70-105 MG/DL Calcium Level 9.3 8.5-10.1 MG/DL Corrected Calcium 10.3 H 8.5-10.1 MG/DL Magnesium Level 1.6 1.6-2.4 MG/DL Total Bilirubin 0.4 0.1-1.0 MG/DL Aspartate Amino Transf (AST/SGOT) 13 5-34 U/L Alanine Aminotransferase (ALT/SGPT) < 6 0-55 U/L Alkaline Phosphatase 83 40-136 U/L Total Creatine Kinase 8 L 30-200 U/L Creatine Kinase MB 0.4 <6.6 NG/ML Myoglobin 34.6 10.0-92.0 NG/ML Troponin I 0.039 H <0.028 NG/ML B-Type Natriuretic Peptide 87.5 <100.0 PG/ML Total Protein 6.1 L 6.4-8.2 GM/DL Albumin 2.7 L 3.2-4.5 GM/DL Amylase Level 27 25-125 U/L Lipase < 4 L 8-78 U/L Serum Alcohol < 10 <10 MG/DL Lactic Acid Level 1.62 0.50-2.00 MMOL/L Urine Color YELLOW Urine Clarity CLOUDY Urine pH 6.5 5-[address] 1.010 L 1.016-1.022 Urine Protein 1+ H NEGATIVE Urine Glucose (UA) NEGATIVE NEGATIVE Urine Ketones NEGATIVE NEGATIVE Urine Nitrite NEGATIVE NEGATIVE Urine Bilirubin NEGATIVE NEGATIVE Urine Urobilinogen 1.0 < = 1.0 MG/DL Urine Leukocyte Esterase 2+ H NEGATIVE Urine RBC (Auto) TRACE-I H NEGATIVE Urine RBC NONE /HPF Urine WBC >100 H /HPF Urine Crystals NONE /LPF Urine Bacteria NEGATIVE /HPF Urine Casts NONE /LPF Urine Mucus NEGATIVE /LPF Urine Culture Indicated CULTURE PENDING Urine Opiates Screen NEGATIVE NEGATIVE Urine Oxycodone Screen POSITIVE H NEGATIVE Urine Methadone Screen NEGATIVE NEGATIVE Urine Propoxyphene Screen NEGATIVE NEGATIVE Urine Barbiturates Screen NEGATIVE NEGATIVE Ur Tricyclic Antidepressants Screen NEGATIVE NEGATIVE Urine Phencyclidine Screen NEGATIVE NEGATIVE Urine Amphetamines Screen NEGATIVE NEGATIVE Urine Methamphetamines Screen NEGATIVE NEGATIVE Urine Benzodiazepines Screen NEGATIVE NEGATIVE Urine Cocaine Screen NEGATIVE NEGATIVE Urine Cannabinoids Screen NEGATIVE NEGATIVE Test 02/24/23 03:39 02/24/23 06:23 02/24/23 06:44 02/24/23 07:49 Range/Units Troponin I 0.056 H <0.028 NG/ML Triglycerides Level 120 <150 MG/DL Cholesterol Level 181 < 200 MG/DL LDL Cholesterol Direct 137 H 1-129 MG/DL VLDL Cholesterol 24 5-40 MG/DL HDL Cholesterol 25 L 40-60 MG/DL Glucometer 55 *L 60 *L 74 70-110 MG/DL Test 02/24/23 11:11 02/24/23 15:58 Range/Units Glucometer 92 90 70-110 MG/DL Physical Exam Physical Exam Vital Signs Vital Signs - First Documented 02/24/23 02/24/23 00:10 06:29 Temp 36.4 Pulse 67 Resp 22 B/P (MAP) 86/51 (63) Pulse Ox 99 O2 Delivery Nasal Cannula O2 Flow Rate 4.00 FiO2 36 Capillary Refill : Greater Than 3 Seconds Height, Weight, BMI Height: 5'8.00" Weight: 170lbs. 8.0oz. 77.296115wf; 27.92 BMI Method:Stated General Appearance: No Apparent Distress, WD/WN, Chronically ill, Obese HEENT: PERRL/EOMI, Normal ENT Inspection Neck: Full Range of Motion, Normal Inspection, Non Tender, Supple Respiratory: Chest Non Tender, Lungs Clear, No Accessory Muscle Use, No Respiratory Distress, Decreased Breath Sounds Cardiovascular: Regular Rate, Rhythm, No Gallop, No Murmur, Normal Peripheral Pulses Gastrointestinal: Normal Bowel Sounds, No Organomegaly, No Pulsatile Mass, Non Tender, Soft Extremity: Normal Capillary Refill, Normal Inspection, Normal Range of Motion, Non Tender, No Calf Tenderness, Pedal Edema (+1 BL) Neurologic/Psychiatric: Alert, Oriented x3, No Motor/Sensory Deficits, Normal 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 Has mildly elevated troponin, which has been chronically mildly elevated since Jul 2022. Type II myocardial infarction secondary to small vessel disease. Chest pain likely d/t known small vessel disease. Conservative management is recommended, no intervention is warranted Continue to monitor Shortness of breath, reporting improvement Feeling better at this time. Continue to monitor Mild elevation in troponin, type II myocardial infarction, conservative management is recommended History of labile blood pressure, better blood pressure control at this time, continue to monitor History of alcohol intoxication, history of alcoholism and polysubstance abuse. Managed by medical team Coronary artery disease, cardiac catheterization carried out in 2012 and 2014 with diffuse atherosclerotic plaques. Nonobstructive disease. Cardiac catheterization was carried out by Dr. Houser on August 26, 2022 with nonobstructive coronary artery disease. iFR was done through the circumflex artery. Review of his cardiac catheterization film showed calcification in the left main and the proximal LAD with mild to moderate disease, 50% stenosis in the mid circumflex artery with IFR 0.97. Small vessel disease distally, dominant circumflex artery. 2D echo done on Dec 22, 2022 with mild concentric hypertrophy. Ejection fraction 60-65%, grade 2 diastolic dysfunction, biatrial enlargement Hyperlipidemia, monitor lipids History of dual-chamber pacemaker due to sinus node dysfunction, he has history of sinus pause for 3.2 second. Most recent interrogation done October 2022 showing good sensing and capturing. Continue to monitor History of avascular necrosis of the hip, underwent multiple hip surgeries in the past and hip replacements. History of gastroesophageal reflux disease, COPD. Polysubstance use for pain control Previous history of tobaccoism Clinical Quality Measures AMI/AHF: ASA po Prior to arrival: SKYLA Hendricks MD February 24, 2023 16:31
[2023-02-24] MEDS ORDERED: MEROPENEM 500 MG VIAL (MERREM) IV ONE (21:18)
[2023-02-25] MEDS: RT-ALBUTEROL/IPRATROPIUM 3 ML (DUONEB) VIAL INH SCH ×4 (02:41→21:42)
[2023-02-25] MEDS: MEROPENEM 500 MG in NS (IVPB) 100 ML IV SCH ×4 (03:47→22:20)
[2023-02-25] MEDS: HYDROmorphone 2 MG/ML VIAL (DILAUDID) IV PRN ×3 (04:49→22:20)
[2023-02-25 05:20] LABS: BASOPHILS # (AUTO) 0.1 10^3/uL (0.0-0.1); BASOPHILS % (AUTO) 1 % (0-10); EOSINOPHILS # (AUTO) 0.2 10^3/uL (0.0-0.3); EOSINOPHILS % (AUTO) 1 % (0-10); HEMATOCRIT 28 % (40-54); HEMOGLOBIN 8.9 g/dL (13.3-17.7); LYMPHOCYTES # (AUTO) 2.9 10^3/uL (1.0-4.0); LYMPHOCYTES % (AUTO) 16 % (12-44); MEAN CORPUSCULAR HEMOGLOBIN 31 pg (25-34); MEAN CORPUSCULAR HGB CONC 32 g/dL (32-36); MEAN CORPUSCULAR VOLUME 97 fL (80-99); MEAN PLATELET VOLUME 10.3 fL (9.0-12.2); MONOCYTES # (AUTO) 1.5 10^3/uL (0.0-1.0); MONOCYTES % (AUTO) 8 % (0-12); NEUTROPHILS # (AUTO) 12.2 10^3/uL (1.8-7.8); NEUTROPHILS % (AUTO) 68 % (42-75); PLATELET COUNT 573 10^3/uL (130-400)
[2023-02-25 05:40] LABS: ALANINE AMINOTRANSFERASE < 6 U/L (0-55); ALBUMIN 2.4 GM/DL (3.2-4.5); ALKALINE PHOSPHATASE 74 U/L (40-136); BILIRUBIN,TOTAL 0.3 MG/DL (0.1-1.0); BUN/CREATININE RATIO 33; CALCIUM 8.7 MG/DL (8.5-10.1); CARBON DIOXIDE 26 MMOL/L (21-32); CHLORIDE 104 MMOL/L (98-107); CREATININE SERUM 1.32 MG/DL (0.60-1.30); GFR ESTIMATED 58; GLUCOSE 98 MG/DL (70-105); MAGNESIUM 1.3 MG/DL (1.6-2.4); PHOSPHORUS 4.5 MG/DL (2.3-4.7); POTASSIUM 4.6 MMOL/L (3.6-5.0); SODIUM 139 MMOL/L (135-145); TOTAL PROTEIN 5.5 GM/DL (6.4-8.2)
[2023-02-25] MEDS: KCL 20 MEQ TAB (K-DUR) PO SCH (05:44)
[2023-02-25] MEDS: inSUlin ASPART (NovoLOG) 1 UNIT/0.01 ML (CHARGE PER UNIT) SC SCH ×4 (05:44→20:05)
[2023-02-25] MEDS: POTASSIUM CL 10MEQ/50ML IVPB 50 ML IV SCH (05:44)
[2023-02-25] MEDS: MAGNESIUM 1 GM/100 ML IVPB 100 ML IV SCH ×5 (05:45→10:30)
[2023-02-25] MEDS: NS IV 1000 ML 1,000 ML IV SCH (05:58)
[2023-02-25] MEDS: ENOXAPARIN 80 MG/0.8 ML (LOVENOX) SYR SC SCH ×2 (08:40→19:59)
[2023-02-25] MEDS: DOCUSATE SODIUM 100 MG (COLACE) CAP PO SCH ×2 (08:40→19:59)
[2023-02-25] MEDS: ASPIRIN E.C. 81 MG (ECOTRIN) TAB PO SCH (08:40)
[2023-02-25] MEDS: SENNOSIDES 8.6 MG (SENOKOT) TAB PO SCH ×2 (08:40→19:59)
[2023-02-25] MEDS ORDERED: VANCOMYCIN 1 GM/NS 250 ML IVPB IV SCH ×2 (09:00)
--- NOTE | 2023-02-25 10:42 | Diagnostic Imaging Report ---
CHEST 1 VIEW, AP/PA ONLY Indication: Chest pain. Comparison: 02/24/2023 Findings: Left basilar atelectasis is similar. No pleural effusion or pneumothorax. Stable cardiomegaly with left pectoral transvenous pacemaker. Right subclavian Port-A-Cath stable. Impression: 1. Stable left basilar opacities are most likely due to atelectasis. Dictated by: Dictated on workstation # [id number]
--- NOTE | 2023-02-25 11:25 | Cardiology Progress Note ---
Subjective Date Seen by Provider: February 25, 2023 Time Seen by Provider: 08:00 Subjective/Events-last exam Patient was seen at bedside, laying down comfortably, feeling better, reporting improvement in his symptoms. Review of Systems General: No Chills, No Night Sweats; Fatigue; No Malaise, No Appetite, No Other HEENT: No Head Aches, No Visual Changes, No Eye Pain, No Ear Pain, No Dysphasia, No Sinus Congestion, No Post Nasal Drip, No Sore Throat, No Other Pulmonary: Dyspnea; No Cough, No Pleuritic Chest Pain, No Other Cardiovascular: No: Chest Pain, Palpitations, Orthopnea, Paroxysmal Noc. Dyspnea, Edema, Lt Headedness, Other Focused Exam Lactate Level 02/24/23 01:45: Lactic Acid Level 1.62 Time of Focused Exam: 01:35 Objective-Cardiology Exam Last Set of Vital Signs Vital Signs 02/24/23 02/25/23 02/25/23 06:29 04:00 06:00 Temp 36.3 Pulse 82 Resp 21 B/P (MAP) 118/83 (95) Pulse Ox 94 O2 Delivery Nasal Cannula O2 Flow Rate 4.00 FiO2 36 I&O Intake and Output 02/25/23 00:00 Intake Total 4420 ml Output Total 1450 ml Balance 2970 ml Intake Oral 170 ml IV Total 4250 ml Output Urine Total 1450 ml Daily Weight Change Unsure General: Alert, Oriented X3, Cooperative HEENT: Atraumatic, PERRLA Neck: Supple, No JVD, No Thyromegaly Lungs: Normal Air Movement, Other (Bilateral rhonchi) Heart: Regular Rate, Normal S1, Normal S2, Other (Systolic murmur) Abdomen: Normal Bowel Sounds, Soft, No Tenderness, No Hepatosplenomegaly, No Masses Extremities: No Clubbing, No Cyanosis, No Edema, Normal Pulses, No Tenderness/Swelling Skin: No Rashes, No Breakdown, No Significant Lesion Neuro: Normal Gait, Normal Speech, Strength at 5/5 X4 Ext, Normal Tone, Sensation Intact Psych/Mental Status: Mental Status NL, Mood NL Results Lab Laboratory Tests 02/25/23 04:30 A/P-Cardiology Admission Diagnosis Chest pain Shortness of breath Type II myocardial infarction Hypertension Assessment/Plan Chest pain, nonspecific etiology, EKG showing paced rhythm with no acute ST changes. Has mildly elevated troponin, which has been chronically mildly elevated since Jul 2022. Type II myocardial infarction secondary to small vessel disease. Chest pain likely d/t known small vessel disease. Conservative management is recommended, no intervention is warranted Continue to monitor Shortness of breath, reporting improvement Feeling better at this time. Continue to monitor Mild elevation in troponin, type II myocardial infarction, conservative management is recommended History of labile blood pressure, better blood pressure control at this time, continue to monitor History of alcohol intoxication, history of alcoholism and polysubstance abuse. Managed by medical team Coronary artery disease, cardiac catheterization carried out in 2012 and 2014 with diffuse atherosclerotic plaques. Nonobstructive disease. Cardiac catheterization was carried out by Dr. Houser on August 26, 2022 with nonobstructive coronary artery disease. iFR was done through the circumflex artery. Review of his cardiac catheterization film showed calcification in the left main and the proximal LAD with mild to moderate disease, 50% stenosis in the mid circumflex artery with IFR 0.97. Small vessel disease distally, dominant circumflex artery. 2D echo done on Dec 22, 2022 with mild concentric hypertrophy. Ejection fraction 60-65%, grade 2 diastolic dysfunction, biatrial enlargement Hyperlipidemia, monitor lipids History of dual-chamber pacemaker due to sinus node dysfunction, he has history of sinus pause for 3.2 second. Most recent interrogation done October 2022 showing good sensing and capturing. Continue to monitor History of avascular necrosis of the hip, underwent multiple hip surgeries in t he past and hip replacements. History of gastroesophageal reflux disease, COPD. Polysubstance use for pain control Previous history of tobaccoism SKYLA SQUIRES MD February 25, 2023 11:25
--- NOTE | 2023-02-25 11:55 | Progress Note - Hospitalist ---
DARYA CARRASCO 02/25/23 1155: Subjective HPI/CC On Admission Date Seen by Provider: February 25, 2023 Time Seen by Provider: 10:15 CC: Chest tightness Subjective/Events-last exam Pt doing well this am resting comfortably. Endorses continued chest pain and tightness, same as yesterday. Otherwise no pain. Good UOP and regular BM's. Denies n/v/f/c, eating and drinking well. Pt stable and ready to move to floor. Cardiology consulted for chest pain and recommending conservative management, troponin has been chronically elevated since July per their report. Focused Exam Lactate Level 02/24/23 01:45: Lactic Acid Level 1.62 Time of Focused Exam: 01:35 Objective Exam Vital Signs Vital Signs Date Time Temp Pulse Resp B/P (MAP) Pulse Ox O2 Delivery O2 Flow Rate FiO2 02/25/23 11:51 36.3 81 18 126/64 (84) 99 Nasal Cannula 4.00 02/24/23 06:29 36 Capillary Refill : Greater Than 3 Seconds General Appearance: No Apparent Distress, WD/WN, Chronically ill, Obese HEENT: PERRL/EOMI, Normal ENT Inspection, Pharynx Normal Neck: Full Range of Motion, Normal Inspection, Non Tender, Supple Respiratory: Chest Non Tender, No Accessory Muscle Use, No Respiratory Distress, Decreased Breath Sounds, Wheezing Cardiovascular: Regular Rate, Rhythm, No Gallop, No Murmur, Normal Peripheral Pulses Gastrointestinal: Normal Bowel Sounds, No Organomegaly, No Pulsatile Mass, Non Tender, Soft Extremity: Normal Capillary Refill, Normal Inspection, Normal Range of Motion, Non Tender, No Calf Tenderness Neurologic/Psychiatric: Alert, Oriented x3, No Motor/Sensory Deficits, Normal Mood/Affect Skin: Normal Color, Warm/Dry Results/Procedures Lab Laboratory Tests 02/25/23 04:30 Patient resulted labs reviewed. Assessment/Plan Assessment and Plan Assess & Plan/Chief Complaint Sepsis 2/2 UTI - SIRS (tachypnea, leukocytosis, +UA concerning for UTI) - UA (cloudy, heavily purulent, +LE) concerning for UTI - bcx, sputum cx pending - Ucx grew G-ve rods, pending further ID and susceptibilities - Given IVF, levophed, and empiric abx (cefepime and meropenem) in ED - continue maintenance IVF - cefepime and vanc d/c - cont meropenem, narrow as able with cx and susceptibilities GELACIO (resolving) Dehydration - likely pre-renal with significant dehydration - Cr 1.32 (2.18 on 02/24), unknown BL - continue maintenance IVF T2 SD (demand ischemia) - +anginal sxs, similar admissions, Oct 2022 heart cath demonstrated mild to moderate coronary artery disease, nonobstructive - troponin mildly elevated at 0.039 then 0.056 - EKG did not demonstrate signs of ACS - troponin chronically elevated since July per cardiology report - consult cardiology, appreciate recs - cards recommending conservative management at this time Clinical Quality Measures AMI/AHF: ASA po Prior to arrival: No KIRSTEN BHANDARI DO 02/25/232044: Supervisory-Addendum Brief Verification & Attestation Participated in pt care: history, MDM, physical Personally performed: exam, history, MDM, supervision of care Care discussed with: Medical Student Procedures: n/a Results interpretation: Verified all documentation Verification and Attestation of Medical Student E/M Service A medical student performed and documented this service in my presence. I reviewed and verified all information documented by the medical student and made modifications to such information, when appropriate. I personally performed the physical exam and medical decision making. Kirsten Bhandari February 25, 2023,20:45 DARYA CARRASCO February 25, 2023 11:55 KIRSTEN BHANDARI DO February 25, 2023 20:45
[2023-02-25] MEDS: methylPREDNISolone 40 MG/ML (Solu-MEDROL) VIAL IV SCH ×2 (11:57→19:59)
[2023-02-25] MEDS ORDERED: FURO40TA4 PO (12:45)
[2023-02-25] MEDS ORDERED: LOPE2CAP PO (12:45)
[2023-02-25] MEDS ORDERED: GABA300C PO (12:45)
[2023-02-25] MEDS ORDERED: LOSA50TA63 PO (12:45)
[2023-02-25] MEDS ORDERED: RANO500T6 PO (12:45)
[2023-02-25] MEDS ORDERED: ASPI-1238 PO (12:45)
[2023-02-25] MEDS ORDERED: PANT40TA52 PO (12:45)
[2023-02-25] MEDS ORDERED: FLUT1AER8 IH (12:45)
[2023-02-25] MEDS ORDERED: POTA-177 PO (12:45)
[2023-02-25] MEDS ORDERED: BTH10T PO (12:45)
[2023-02-25] MEDS ORDERED: MTP25TSR PO (12:45)
[2023-02-25] MEDS ORDERED: OXYC10TA7 PO (12:45)
[2023-02-25] MEDS ORDERED: RT-ALBUINH INH (12:45)
[2023-02-25] MEDS ORDERED: INSU100I76 SC (12:45)
--- NOTE | 2023-02-25 14:06 | Physical Therapy Progress Note ---
Therapy Progress Note Attempted PT initial evaluation however patient refused due to feeling ill. Will attempt evaluation again tomorrow and progress per patient tolerance. YURIY BRIONES PT February 25, 2023 14:06
[2023-02-25 14:30] VITALS: BP 143/72
--- NOTE | 2023-02-25 15:50 | Occ Therapy Progress Note ---
Therapy Progress Note OT order received, OT attempted eval . Patient transferred form ICU to [address] [place] [address]. EKG being performed, OT will attempt next available opportunity YANCI QUEVEDO OT February 25, 2023 15:50
[2023-02-25 15:58] VITALS: BP 125/59
[2023-02-25 19:55] VITALS: BP 128/68
[2023-02-25 23:31] VITALS: BP 109/58
[2023-02-26] MEDS: MEROPENEM 500 MG in NS (IVPB) 100 ML IV SCH ×3 (03:15→15:20)
[2023-02-26 03:16] VITALS: BP 118/63
[2023-02-26] MEDS: HYDROmorphone 2 MG/ML VIAL (DILAUDID) IV PRN ×2 (03:16→12:57)
[2023-02-26] MEDS: RT-ALBUTEROL/IPRATROPIUM 3 ML (DUONEB) VIAL INH SCH ×3 (03:25→14:37)
[2023-02-26 04:33] LABS: BASOPHILS % (AUTO) 0 % (0-10); EOSINOPHILS % (AUTO) 0 % (0-10); HEMATOCRIT 26 % (40-54); HEMOGLOBIN 8.4 g/dL (13.3-17.7); LYMPHOCYTES # (AUTO) 1.9 10^3/uL (1.0-4.0); LYMPHOCYTES % (AUTO) 15 % (12-44); MEAN CORPUSCULAR HEMOGLOBIN 30 pg (25-34); MEAN CORPUSCULAR HGB CONC 32 g/dL (32-36); MEAN CORPUSCULAR VOLUME 95 fL (80-99); MEAN PLATELET VOLUME 9.8 fL (9.0-12.2); MONOCYTES # (AUTO) 0.2 10^3/uL (0.0-1.0); MONOCYTES % (AUTO) 2 % (0-12); NEUTROPHILS # (AUTO) 10.4 10^3/uL (1.8-7.8); NEUTROPHILS % (AUTO) 78 % (42-75); PLATELET COUNT 560 10^3/uL (130-400); WHITE BLOOD COUNT 13.2 10^3/uL (4.3-11.0)
[2023-02-26 04:42] LABS: ALBUMIN 2.5 GM/DL (3.2-4.5)
[2023-02-26 04:43] LABS: CHLORIDE 101 MMOL/L (98-107); POTASSIUM 4.4 MMOL/L (3.6-5.0); SODIUM 137 MMOL/L (135-145)
[2023-02-26 04:45] LABS: GLUCOSE 231 MG/DL (70-105); TOTAL PROTEIN 5.6 GM/DL (6.4-8.2)
[2023-02-26 04:46] LABS: CARBON DIOXIDE 25 MMOL/L (21-32)
[2023-02-26 04:47] LABS: BILIRUBIN,TOTAL 0.3 MG/DL (0.1-1.0)
[2023-02-26 04:48] LABS: ALKALINE PHOSPHATASE 74 U/L (40-136)
[2023-02-26 04:49] LABS: CREATININE SERUM 1.29 MG/DL (0.60-1.30); GFR ESTIMATED 60
[2023-02-26 04:50] LABS: BUN/CREATININE RATIO 27
[2023-02-26 04:51] LABS: MAGNESIUM 2.3 MG/DL (1.6-2.4)
[2023-02-26 04:52] LABS: ALANINE AMINOTRANSFERASE < 6 U/L (0-55)
[2023-02-26] MEDS: inSUlin ASPART (NovoLOG) 1 UNIT/0.01 ML (CHARGE PER UNIT) SC SCH ×3 (05:40→16:07)
[2023-02-26 07:31] VITALS: BP 130/69
[2023-02-26] MEDS ORDERED: TROUGH ORDER-PHARMACY XX NR (08:00)
--- NOTE | 2023-02-26 08:27 | Cardiology Progress Note ---
Subjective Date Seen by Provider: February 26, 2023 Time Seen by Provider: 08:27 Subjective/Events-last exam Patient was seen at bedside laying down comfortably, feeling better Asking to go home. Focused Exam Lactate Level 02/24/23 01:45: Lactic Acid Level 1.62 Time of Focused Exam: 01:35 Objective-Cardiology Exam Last Set of Vital Signs Vital Signs 02/24/23 02/26/23 06:29 07:31 Temp 36.2 Pulse 81 Resp 18 B/P (MAP) 130/69 (89) Pulse Ox 94 O2 Delivery Nasal Cannula O2 Flow Rate 4.00 FiO2 36 I&O Intake and Output 02/26/23 00:00 Intake Total 3035 ml Output Total 3150 ml Balance -115 ml Intake Oral 1885 ml IV Total 1150 ml Output Urine Total 3150 ml General: Alert, Oriented X3, Cooperative HEENT: Atraumatic, PERRLA Neck: Supple, No JVD, No Thyromegaly Lungs: Normal Air Movement, Other (Bilateral rhonchi) Heart: Regular Rate, Normal S1, Normal S2, Other (Systolic murmur) Abdomen: Normal Bowel Sounds, Soft, No Tenderness, No Hepatosplenomegaly, No Masses Extremities: No Clubbing, No Cyanosis, No Edema, Normal Pulses, No Tenderness/Swelling Skin: No Rashes, No Breakdown, No Significant Lesion Neuro: Normal Gait, Normal Speech, Strength at 5/5 X4 Ext, Normal Tone, Sensation Intact Psych/Mental Status: Mental Status NL, Mood NL Results Lab Laboratory Tests 02/26/23 04:27 A/P-Cardiology Admission Diagnosis Chest pain Shortness of breath Type II myocardial infarction Hypertension Assessment/Plan Chest pain, nonspecific etiology, EKG showing paced rhythm with no acute ST changes. Has mildly elevated troponin, which has been chronically mildly elevated since Jul 2022. Type II myocardial infarction secondary to small vessel disease. Chest pain likely d/t known small vessel disease. Conservative management is recommended, no intervention is warranted Continue to monitor Shortness of breath, reporting improvement Feeling better at this time. Continue to monitor Mild elevation in troponin, type II myocardial infarction, conservative management is recommended History of labile blood pressure, better blood pressure control at this time, continue to monitor History of alcohol intoxication, history of alcoholism and polysubstance abuse. Managed by medical team Coronary artery disease, cardiac catheterization carried out in 2012 and 2014 with diffuse atherosclerotic plaques. Nonobstructive disease. Cardiac catheterization was carried out by Dr. Houser on August 26, 2022 with nonobstructive coronary artery disease. iFR was done through the circumflex artery. Review of his cardiac catheterization film showed calcification in the left main and the proximal LAD with mild to moderate disease, 50% stenosis in the mid circumflex artery with IFR 0.97. Small vessel disease distally, dominant circumflex artery. 2D echo done on Dec 22, 2022 with mild concentric hypertrophy. Ejection fraction 60-65%, grade 2 diastolic dysfunction, biatrial enlargement Hyperlipidemia, monitor lipids History of dual-chamber pacemaker due to sinus node dysfunction, he has history of sinus pause for 3.2 second. Most recent interrogation done October 2022 showing good sensing and capturing. Continue to monitor History of avascular necrosis of the hip, underwent multiple hip surgeries in the past and hip replacements. History of gastroesophageal reflux disease, COPD. Polysubstance use for pain control Previous history of tobaccoism Okay for discharge from cardiology standpoint and follow-up as an outpatient SKYLA SQUIRES MD February 26, 2023 08:27
[2023-02-26] MEDS: methylPREDNISolone 40 MG/ML (Solu-MEDROL) VIAL IV SCH (08:42)
[2023-02-26] MEDS: DOCUSATE SODIUM 100 MG (COLACE) CAP PO SCH (08:42)
[2023-02-26] MEDS: ENOXAPARIN 80 MG/0.8 ML (LOVENOX) SYR SC SCH (08:42)
[2023-02-26] MEDS: SENNOSIDES 8.6 MG (SENOKOT) TAB PO SCH (08:43)
[2023-02-26] MEDS: ASPIRIN E.C. 81 MG (ECOTRIN) TAB PO SCH (08:43)
--- NOTE | 2023-02-26 11:30 | Physical Therapy Progress Note ---
Therapy Progress Note Patient declined PT on this date stating, "I want therapy, just not today." He also refused yesterday and he was reminded of this. Continued to decline PT. 1 ref DAMIR VILLALOBOS PT February 26, 2023 11:29
[2023-02-26] MEDS ORDERED: CEFE2FRO IV (11:53)
[2023-02-26] MEDS ORDERED: PRED10TA22 PO (11:53)
--- NOTE | 2023-02-26 11:54 | Discharge Inst-Skilled Nursing ---
Discharge Inst-Skilled NF Reconcile Patient Problems Problems Reviewed?: Yes Chief Complaint CC: Chest tightness Patient Instructions Patient Problems: UTI Goal: [place] Consult/Follow Up/Orders Follow Up Appt.: PCP [place] rounds Skilled NF Admit to: [facility] ([facility]) I certify that SNF services are required to be given on an inpatient basis because of the above named patient's need for group home care on a continuing basis for the conditions(s) for which he/she was receiving inpatient hospital services prior to his/her transfer to the SNF. Fdc Facility Order: Nursing Services, [facility]-Evaluate & Treat, Physical Therapy-Evaluate & Treat Oxygen Delivery Method: Nasal Cannula Discharge Diet: ADA Diet Daily Activity as Tolerated: Yes Resuscitation Status: Full Code New & Resume Previous Orders New Medications: Cefepime HCl/Dextrose, Iso-Osm (Cefepime 2 gm Injection) 2 Gram/100 Ml Froz.piggy 2 GM IV BID for 4 Days, UNIT Prednisone (Prednisone) 10 Mg Tab.ds.pk 10 MG PO DAILY, #21 EA Take 6 tabs(60mg)daily,decrease by 1 tab(10MG)daily. Continued Medications: Acetaminophen (Tylenol) 325 Mg Tablet 650 MG PO Q4H PRN for PAIN-MILD (1-4) OR TEMPATURE, TAB Albuterol Sulfate (Ventolin Hfa) 1 Puff Puff 2 PUFF INH Q6H PRN for SHORTNESS OF BREATH, EA Aspirin (Aspirin EC) 81 Mg Tablet.dr 81 MG PO DAILY, TAB Bethanechol Chloride (Urecholine) 10 Mg Tablet 10 MG PO 0900,1700, TAB Fluticasone/Salmeterol (Airduo Respiclick 232-14 Mcg) 232 Mcg-14 Mcg/Actuation Aer.pow.ba 1 EACH IH BID, GM RINSE MOUTH WITH WATER AFTER USE, DO NOT SWALLOW Furosemide (Furosemide) 40 Mg Tablet 40 MG PO DAILY, TAB Gabapentin (Neurontin) 300 Mg Capsule 300 MG PO 0900,1300,1700, CAP Insulin Glargine-Yfgn (Insulin Glargine-Yfgn) 100 Unit/Ml (3 Ml) Insuln.pen 15 UNITS SC BID, UNITS Loperamide HCl (Loperamide) 2 Mg Capsule 2-4 MG PO UD PRN for DIARRHEA, CAP FOLLOW PACKAGE DIRECTIONS Losartan Potassium (Losartan Potassium) 50 Mg Tablet 50 MG PO DAILY, TAB Metoprolol Succinate (Metoprolol Succinate) 25 Mg Tab.er.24h 25 MG PO DAILY, TAB HOLD FOR PULSE <60 Oxycodone HCl (Oxycodone HCl) 10 Mg Tablet 10 MG PO Q6H PRN for PAIN-SEVERE (8-10), TAB Pantoprazole Sodium (Pantoprazole Sodium) 40 Mg Tablet.dr 40 MG PO DAILY, TAB Potassium Chloride (Potassium Chloride) 10 Meq Tab.er.prt 10 MEQ PO DAILY Ranolazine (Ranolazine ER) 500 Mg Tab.er.12h 500 MG PO 0900,1700, TAB Kirsten Sanz February 26, 2023 11:54 KIRSTEN SANZ DO February 26, 2023 11:54
--- NOTE | 2023-02-26 11:55 | Discharge Summary ---
Discharge Summary Hospital Course Was the Problem List Reviewed?: Yes Problems/Dx: (1) Septic shock Status: Acute (2) UTI (urinary tract infection) Status: Acute Hospital Course Date of Admission: February 24, 2023 at 05:00 Admission Diagnosis : [facility]: 02/26/23 Discharge Diagnosis: [ ] Hospital Course: Nasir Jalloh is a 72M who came to this ED on 02/23 via EMS from [facility] with c/o unremitting chest pain and tightness and increased SOB. EKG and troponin were checked initially and at 3 hours post arrival and were not found to be concerning for emergent STEMI. He was admitted to ICU early 02/24. He was found to have an GELACIO and UTI and treated with IVF and meropenem. Cardiology was consulted for his chest pain and slightly elevated troponin. Cardiology noted he has had chronic, mildly elevated troponin since July of 2022 and recent heart cath in Oct 2022 demonstrated small vessel disease that did not indicate intervention. Cardiology elected to manage conservatively and f/u outpatient. Pt GELACIO has resolved. Unfortunately, ucx grew Pseudomonas aeruginosa and despite wanting to return home, he will need to return to [facility] to complete IV abx course. With exception of UTI, pt is otherwise stable and ready for discharge. DARYA CARRASCO Labs and Pending Lab Test: Laboratory Tests 02/25/23 15:45: Glucometer 160H 02/25/23 19:59: Glucometer 254H 02/26/23 04:27: White Blood Count 13.2H, Red Blood Count 2.76L, Hemoglobin 8.4L, Hematocrit 26L, Mean Corpuscular Volume 95, Mean Corpuscular Hemoglobin 30, Mean Corpuscular Hemoglobin Concent 32, Red Cell Distribution Width 14.8H, Platelet Count 560H, Mean Platelet Volume 9.8, Immature Granulocyte % (Auto) 5, Neutrophils (%) (A uto) 78H, Lymphocytes (%) (Auto) 15, Monocytes (%) (Auto) 2, Eosinophils (%) (Auto) 0, Basophils (%) (Auto) 0, Neutrophils # (Auto) 10.4H, Lymphocytes # (Auto) 1.9, Monocytes # (Auto) 0.2, Eosinophils # (Auto) 0.0, Basophils # (Auto) 0.0, Immature Granulocyte # (Auto) 0.7H, Sodium Level 137, Potassium Level 4.4, Chloride Level 101, Carbon Dioxide Level 25, Anion Gap 11, Blood Urea Nitrogen 35H, Creatinine 1.29, Estimat Glomerular Filtration Rate 60, BUN/Creatinine Ratio 27, Glucose Level 231H, Calcium Level 9.0, Corrected Calcium 10.2H, Magnesium Level 2.3, Total Bilirubin 0.3, Aspartate Amino Transf (AST/SGOT) 10, Alanine Aminotransferase (ALT/SGPT) < 6, Alkaline Phosphatase 74, Total Protein 5.6L, Albumin 2.5L 02/26/23 11:24: Glucometer 256H Microbiology 02/24/23 MRSA Screen - Final, Complete MRSA not isolated 02/24/23 Urine Culture - Final, Complete Pseudomonas aeruginosa Escherichia coli 02/24/23 Blood Culture - Preliminary, Resulted Staphylococcus epidermidis Staphylococcus hominis Testing In Progress Home Meds Active Cefepime 2 gm Injection (Cefepime HCl/Dextrose, Iso-Osm) 2 Gram/100 Ml Froz.piggy 2 Gm IV BID 4 Days Prednisone 10 Mg Tab.ds.pk 10 Mg PO DAILY Take 6 tabs(60mg)daily,decrease by 1 tab(10MG)daily. Reported Ventolin Hfa (Albuterol Sulfate) 1 Puff Puff 2 Puff INH Q6H PRN Neurontin (Gabapentin) 300 Mg Capsule 300 Mg PO 0900,1300,1700 Ranolazine ER (Ranolazine) 500 Mg Tab.er.12h 500 Mg PO 0900,1700 Airduo Respiclick 232-14 Mcg (Fluticasone/Salmeterol) 232 Mcg-14 Mcg/Actuation Aer.pow.ba 1 Each IH BID RINSE MOUTH WITH WATER AFTER USE, DO NOT SWALLOW Urecholine (Bethanechol Chloride) 10 Mg Tablet 10 Mg PO 0900,1700 Pantoprazole Sodium 40 Mg Tablet.dr 40 Mg PO DAILY Potassium Chloride 10 Meq Tab.er.prt 10 Meq PO DAILY Metoprolol Succinate 25 Mg Tab.er.24h 25 Mg PO DAILY HOLD FOR PULSE <60 Losartan Potassium 50 Mg Tablet 50 Mg PO DAILY Furosemide 40 Mg Tablet 40 Mg PO DAILY Aspirin EC (Aspirin) 81 Mg Tablet.dr 81 Mg PO DAILY Oxycodone HCl 10 Mg Tablet 10 Mg PO Q6H PRN Loperamide (Loperamide HCl) 2 Mg Capsule 2-4 Mg PO UD PRN FOLLOW PACKAGE DIRECTIONS Insulin Glargine-Yfgn 100 Unit/Ml (3 Ml) Insuln.pen 15 Units SC BID Tylenol (Acetaminophen) 325 Mg Tablet 650 Mg PO Q4H PRN Assessment/Pt Instructions pcp nh rounds Discharge Planning: <30 minutes discharge planning Discharge Instructions Discharge Diet: ADA Diet Discharge Physical Examination Vital Signs Vital Signs Date Time Temp Pulse Resp B/P (MAP) Pulse Ox O2 Delivery O2 Flow Rate FiO2 02/26/23 08:49 94 Nasal Cannula 4.00 02/26/23 07:31 36.2 81 18 130/69 (89) 02/24/23 06:29 36 General Appearance: No Apparent Distress, WD/WN, Chronically ill Respiratory: Lungs Clear, Normal Breath Sounds Neurologic/Psychiatric: Alert, Oriented x3 Allergies: Coded Allergies: codeine (Verified Allergy, Mild, HIVES...TAKES OXYCODONE & MS CONTIN AT HOME, 03/11/19) streptokinase (Verified Allergy, Unknown, 03/11/19) Discharge Summary Date of Admission February 24, 2023 at 05:00 Date of Discharge Discharge Date: February 26, 2023 Admission Diagnosis Septic shock from UTI Acute on Chronic hypoxic respiratory failure due to COPD exacerbation COPD exacerbation Pneumonia Hyperglycemia CAD HTN Hx pacemaker Debility Clinical Quality Measures AMI/AHF: ASA po Prior to arrival: ZOHREH Cordero DO February 26, 2023 11:55
[2023-02-26 12:00] VITALS: BP 121/62
--- NOTE | 2023-02-26 12:33 | Progress Note ---
DARYA CARRASCO 02/26/23 1233: Progress Note Nasir Jalloh is a 72M who came to this ED on 02/23 via EMS from [facility] with c/o unremitting chest pain and tightness and increased SOB. EKG and troponin were checked initially and at 3 hours post arrival and were not found to be concerning for emergent STEMI. He was admitted to ICU early 02/24. He was found to have an GELACIO and UTI and treated with IVF and meropenem. Cardiology was consulted for his chest pain and slightly elevated troponin. Cardiology noted he has had chronic, mildly elevated troponin since July of 2022 and recent heart cath in Oct 2022 demonstrated small vessel disease that did not indicate intervention. Cardiology elected to manage conservatively and f/u outpatient. Pt GELACIO has resolved. Unfortunately, ucx grew Pseudomonas aeruginosa and despite wanting to return home, he will need to return to [facility] to complete IV abx course. With exception of UTI, pt is otherwise stable and ready for discharge. KIRSTEN BHANDARI DO 02/27/23 0524: Supervisory-Addendum Brief Verification & Attestation Participated in pt care: history, MDM, physical Personally performed: exam, history, MDM, supervision of care Care discussed with: Medical Student Procedures: n/a Results interpretation: Verified all documentation Verification and Attestation of Medical Student E/M Service A medical student performed and documented this service in my presence. I reviewed and verified all information documented by the medical student and made modifications to such information, when appropriate. I personally performed the physical exam and medical decision making. Kirsten Bhandari February 27, 2023,05:24 DARYA CARRASCO February 26, 2023 12:33 KIRSTEN BHANDARI DO February 27, 2023 05:24
--- NOTE | 2023-02-26 13:09 | Occ Therapy Progress Note ---
Therapy Progress Note Patient declined PT on this date stating, "I want therapy, just not today." He also refused yesterday and he was reminded of this. Continued to decline OT YANCI QUEVEDO OT February 26, 2023 13:09
[2023-02-26 15:30] VITALS: BP 124/65
[2023-02-26 17:28] VITALS: BP 124/65
== END 2023-02-26 17:29 | DRG 871 ==
LOC: EDUNIT# 00:07 → ER 00:09 → ICU 05:00 → 4TH 02-25 14:13
PROVIDERS: ADMIT Internal Medicine; ATTEND Internal Medicine
DX: A41.9 Sepsis, unspecified organism (principal); I21.A1 Myocardial infarction type 2; J18.9 Pneumonia, unspecified organism; J96.21 Acute and chronic respiratory failure with hypoxia; R65.21 Severe sepsis with septic shock; N39.0 Urinary tract infection, site not specified; N17.9 Acute kidney failure, unspecified; E86.0 Dehydration; Z96.643 Presence of artificial hip joint, bilateral; I25.2 Old myocardial infarction; I25.10 Atherosclerotic heart disease of native coronary artery without angina pectoris; I10 Essential (primary) hypertension; Z95.0 Presence of cardiac pacemaker; G62.9 Polyneuropathy, unspecified; M19.90 Unspecified osteoarthritis, unspecified site; G89.29 Other chronic pain; M54.9 Dorsalgia, unspecified; Z79.82 Long term (current) use of aspirin; Z79.4 Long term (current) use of insulin; Z79.899 Other long term (current) drug therapy; Z87.891 Personal history of nicotine dependence; J43.9 Emphysema, unspecified; R73.9 Hyperglycemia, unspecified; R53.81 Other malaise; K21.9 Gastro-esophageal reflux disease without esophagitis; F19.90 Other psychoactive substance use, unspecified, uncomplicated; Z20.822 Contact with and (suspected) exposure to COVID-19; E78.5 Hyperlipidemia, unspecified
CPT/HCPCS: 36415; 71045; 80053; 80061; 80306; 80320; 81000; 82150; 82550; 82553; 82947; 83605; 83690; 83735; 83874; 83880; 84100; 84484; 85007; 85025; 85027; 85610; 85730; 87040; 87077; 87081; 87088; 87186; 87636; 93005; 93041; 94640; 94760